=== PATIENT | female | born 1980 | race Caucasian/White ===

== ENCOUNTER 2024-03-25 13:41 | Outpatient (OUT) | payer OTHER, SELFPAY ==
--- NOTE | 2024-03-25 | XR_ITS ---
[facility] [place] [id number] Patient Name: DES KHANNA MRN: [id number] date: 1980 Sex: F Assigned Patient Location: Current Patient Location: Accession/Order Number: [id number] Exam Date: 03/25/2024 13:45 Report Date: 03/26/2024 08:38 At the request of: ROBERT MARTINEZ Procedure: XR foot KG min 3V EXAM: XR foot KG min 3V HISTORY: BILATERAL HEEL PAIN COMPARISON: None. TECHNIQUE: Routine views of the bilateral feet were obtained. FINDINGS/IMPRESSION: 1. There is no radiographic evidence of an acute fracture or subluxation. 2. Early changes of osteoarthritis seen at the bilateral interphalangeal joints of the toes as demonstrated by joint space narrowing and marginal spurring. 3. Bilateral plantar calcaneal spurring is seen. Electronically authenticated by: MARGARET BOWEN Date: 03/26/2024 08:38
== END 2024-03-25 13:42 | disposition home or self-care (01) ==
PROVIDERS: Visit Provider Podiatrist Foot & Ankle Surgery
DX: M79.671 Pain in right foot (principal); M79.672 Pain in left foot; M77.32 Calcaneal spur, left foot; M77.31 Calcaneal spur, right foot
CPT/HCPCS: 73630

== ENCOUNTER 2024-06-23 12:43 | Outpatient (OUT) | payer OTHER, SELFPAY ==
--- OUTSIDE RECORDS SUMMARY | 2024-06-23 12:57 | XMS_ITS | CCD ---
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 Name Role Phone DR PETER AHUMADA Primary Care Unavailable DR CHETAN RUDD Admitting Unavailable DR CHETAN RUDD Consulting Unavailable DR CHETAN RUDD Attending Unavailable Luz Marina Hernandez Consulting Unavailable Peter Ahumada DO Primary Care Provider Peter Ahumada Unavailable Acs, DO Peter Primary Care Provider Acs, DO Peter Attending Provider Acs, DO Peter Primary Care Provider Kuns, DO Peter Attending Provider [phone] Kuns, DO Peter Primary Care Provider [phone] Kuns, DO Peter Attending Provider Rolando, [facility]- [place] Emergency Provider Severo ([facility]), [place] DELIA Orellana Attending Provider Acs, DO Green Primary Care Provider Acs, DO Green Attending Provider Kuns, DO Peter Primary Care Provider Kuns, DO Peter Attending Provider Kuns, DO Peter Primary Care Provider [phone] Acs, DO Peter Attending Provider [phone] Kuns, DO Peter Primary Care Provider [phone] Acs, DO Peter Referring Provider Self, Referral Attending Provider Unavailable MD Igor Rudd Emergency Provider [phone] Blake, DO Green Attending Provider Itzkowitz, DO Alber Attending Provider DO Chas Meza Attending Provider [phone] Blake, DO Green Primary Care Provider Peter Ahumada DO P Primary Care Provider Kuns, DO Peter Primary Care Provider Acs, DO Green Attending Provider JEAN CARLOS Martinez Attending Provider Peter Ahumada MD Primary Care Provider ITZKOWITZ, ALBER H Attending Unavailable ITZKOWITZ, ALBER H Attending Unavailable ITZKOWITZ, ALBER H Attending Unavailable ITZKOYAHIRTZ, ALBER H Attending Unavailable RAHUL CASTILLO Attending Unavailable ROBERT MARTINEZ Referring Unavailable Acs Peter HOOVER Primary Care Provider Peter Ahumada DO Attending Provider Robert Martinez DPM Attending Provider Acs, Peter Primary Care Unavailable Robert Martinez Attending Unavailable Robert Martinez Admitting Unavailable Kuns, Peter Admitting Unavailable Kuns, Peter Primary Care Unavailable Kuns, Peter Attending Unavailable Kuns, Peter Admitting Unavailable Kuns, Peter Primary Care Unavailable Kuns, Peter Attending Unavailable Self, Referral Attending Unavailable Kuns, Peter Primary Care Unavailable Self, Referral Admitting Unavailable Kuns, Peter Referring Unavailable Kuns, Peter Admitting Unavailable Kuns, Peter Primary Care Unavailable Kuns, Peter Attending Unavailable Itzkowitz, Alber Admitting Unavailable Itzkowitz, Alber Attending Unavailable Kuns, Peter Primary Care Unavailable Kuns, Peter Primary Care Unavailable Chas Meza Admitting Unavailable Chas Meza Attending Unavailable Kuns, Peter Primary Care Unavailable Itzkowitz, Alber Attending Unavailable Itzkoyahirtz, Alber Admitting Unavailable Igor Rudd Attending Unavailable Kuns, Peter Primary Care Unavailable Igor Rudd Admitting Unavailable Peter Ahumada Primary Care Unavailable Chas Meza Attending Unavailable Chas Meza Admitting Unavailable Peter Ahumada Admitting Unavailable Peter Ahumada Primary Care Unavailable Peter Ahumada Attending Unavailable Peter Ahumada Primary Care Unavailable Alber Haines Attending Unavailable Alber Haines Admitting Unavailable Peter Ahumada Primary Care Unavailable Peter Ahumada Attending Unavailable Peter Ahumada Admitting Unavailable Peter Ahumada Primary Care Unavailable Robert Martinez Admitting Unavailable Robert Martinez Attending Unavailable Allergies Allergy Classification Reported Allergen(s) Allergy Type Date of Onset Reaction(s) Facility (6 sources) Indomethacin Drug Allergy 8 Swelling [facility] (11 sources) benzonatate Drug Allergy 4 diarrhea [facility] (2 sources) benzonatate Drug Allergy 3 GI intolerance [facility] Work Phone: (1 source) benzonatate Drug Allergy [address] [place] [address] Repository Medications Current Medications Medication Drug Class(es) Dates Sig (Normalized) Sig (Original) [id number] 200 actuat albuterol 0.09 mg/actuat metered dose inhaler (20 sources) beta2-Adrenergic Agonist Start: 12-19-2023 take 2 puff(s) by inhalation every four hours as needed Albuterol Sulfate (Proair Hfa) 90 mcg/actuation HFA aerosol inhaler Active 2 PUFF INHALATION Every 4 hours December 18, 2023 11:00pm FreeTextSi puffs as needed Inhalation every 4 hrs; Note: Source Status: RefillPRN; Refills: 1; Provider: Blake Liz Start: 03-23-2017 take 2 puff(s) by in halation every four hours as needed ProAir HFA 108 (90 Base) MCG/ACT 2 puffs as needed Inhalation every 4 hrs PRN Mar, Active albuterol HFA (P roventil HFA) 90 mcg/act inhaler every 4 (four) hours. Active esomeprazole 40 mg delayed release oral capsule (4 sources) Proton Pump Inhibitor Start: 06-10-2024 take 1 capsule by mouth once daily Esomeprazole Magnesium (Nexium) 40 mg capsule,delayed release(DR/EC) Active 40 MG PO Daily June 10, 2024 12:00am Start: 03-14-2024 End: 06-10-2024 take 1 capsule by mouth twice daily Esomeprazole Magnesium (Nexium) 40 mg capsule,delayed release(DR/EC) Discontinued 40 MG PO Twice daily March 13, 2024 11:00pm June 10, 2024 3:43pm Norgestimate-Ethinyl Estradiol (20 sources) Progestin, Estrogen Start: 12-19-2023 take 1 tablet by mouth once daily at bedtime Norgestimate-Ethinyl Estradiol 0.25-35 mg-mcg tablet Active 1 TAB PO Daily at bedtime December 18, 2023 11:00pm Start: 12-19-2023 take 1 tablet by yoana th once daily at bedtime Norgestimate-Ethinyl Estradiol Active 1 TAB PO Daily at bedtime December 19, 2023 12:00am Start: 12-19-2023 take 1 tablet by yoana th once daily Norgestimate-Ethinyl Estradiol Active 1 TAB PO Daily December 19, 2023 12:00am Start: 11-11-2022 take 1 tablet by yoana th in the morning Mary Lou 0.25-35 MG-MCG tablet Take 1 tablet by mouth in the morning. 11/11/2022 Active Start: 02-08-2021 End: 12-19-2023 take 1 tablet by mouth once daily Norgestimate-Ethinyl Estradiol (Mary Lou) 0.25-35 mg-mcg tablet Discontinued 1 TAB PO Daily February 07, 2021 11:00pm December 19, 2023 1:04pm Start: 02-08-2021 End: 12-19-2023 take 1 tablet by mouth once daily Norgestimate-Ethinyl Estradiol (Mary Lou) 0.25-35 mg-mcg tablet Discontinued 1 TAB PO Daily February 08, 2021 12:00am December 19, 2023 2:04pm Start: 02-08-2021 take 1 tablet by yoana th once daily Norgestimate-Ethinyl Estradiol (Mary Lou) 0.25-35 mg-mcg tablet Active 1 TAB PO Daily February 07, 2021 11:00pm Start: 02-08-2021 take 1 tablet by yoana th once daily Norgestimate-Ethinyl Estradiol (Mary Lou) 0.25-35 mg-mcg tablet Active 1 TAB PO Daily February 08, 2021 12:00am Start: 09-15-2020 take 1 tablet by yoana th once daily MARY LOU 0.25-35 mg-mcg per tablet Take 1 tablet by mouth once daily. 09/15/2020 Active Start: 09-15-2020 take 1 tablet by yoana th once daily MARY LOU 0.25-35 mg-mcg per tablet Take 1 tablet by mouth once daily. 0 09/15/2020 Active Start: 04-24-2017 End: 02-08-2021 take 1 tablet by mouth once daily Norgestimate-Ethinyl Estradiol (Sprintec (28)) 0.25-35 mg-mcg Tablet Discontinued 1 TAB PO Daily April 23, 2017 11:00pm February 08, 2021 9:37am Start: 04-24-2017 End: 02-08-2021 take 1 tablet by mouth once daily Norgestimate-Ethinyl Estradiol (Sprintec (28)) 0.25-35 mg-mcg Tablet Discontinued 1 TAB PO Daily April 24, 2017 12:00am February 08, 2021 10:37am take 1 tablet by yoana th every twenty-four hours Norgestimate-Eth Estradiol 0.25-35 MG-MCG 1 tablet Orally Once a day Active Comment on above: Take 1 tablet by yoana th once daily. Multiple Vitamin (multivitamin) tablet (2 sources) take 1 tablet by mouth in the morning Multiple Vitamin (multivitamin) tablet Take 1 tablet by mouth in the morning. Active Multivitamin (Daily Multi-Vitamin) tablet (17 sources) Start: 12-19-2023 take 1 tablet by mouth once daily in the morning Multivitamin (Daily Multi-Vitamin) tablet Active 1 TAB PO Every morning December 18, 2023 11:00pm Start: 12-19-2023 take 1 tablet by yoana th once daily in the morning Multivitamin (Daily Multi-Vitamin) tablet Active 1 TAB PO Every morning December 19, 2023 12:00am Start: 12-19-2023 take 1 tablet by yoana th once daily Multivitamin (Daily Multi-Vitamin) tablet Active 1 TAB PO Daily December 19, 2023 12:00am Multivitamin preparation (11 sources) take 1 tablet by mouth once daily Multi Vitamin - 1 tablet Orally Once a day Active Multivitamin With Minerals (Hair,Skin And Nails) tablet (15 sources) Start: 03-06-2024 take 1 tablet by mouth once daily in the morning Multivitamin With Minerals (Hair,Skin And Nails) tablet Active 1 TAB PO Every morning March 06, 2024 1:25pm Start: 03-06-2024 take 1 tablet by yoana th once daily in the morning Multivitamin With Minerals (Hair,Skin And Nails) tablet Active 1 TAB PO Every morning March 06, 2024 2:25pm Start: 01-15-2024 End: 03-06-2024 take 1 tablet by mouth once daily in the morning Multivitamin With Minerals (Hair,Skin And Nails) tablet Discontinued 1 TAB PO Every morning January 14, 2024 11:00pm March 06, 2024 1:25pm Start: 01-15-2024 End: 03-06-2024 take 1 tablet by mouth once daily in the morning Multivitamin With Minerals (Hair,Skin And Nails) tablet Discontinued 1 TAB PO Every morning January 15, 2024 12:00am March 06, 2024 2:25pm Start: 01-15-2024 take 1 tablet by yoana th once daily in the morning Multivitamin With Minerals (Hair,Skin And Nails) tablet Active 1 TAB PO Every morning January 15, 2024 12:00am ProAir HFA 108 (90 Base) MCG/ACT (11 sources) Start: 03-23-2017 take 2 puff(s) by inhalation every four hours as needed ProAir HFA 108 (90 Base) MCG/ACT 2 puffs as needed Inhalation every 4 hrs for 90 days PRN Mar, Active Start: 03-23-2017 take 2 puff(s) by in halation every four hours as needed ProAir HFA 108 (90 Base) MCG/ACT 2 puffs as needed Inhalation every 4 hrs PRN Mar, Active probiotic (17 sources) probiotic Active Vitamin D (Cholecalciferol) 1000 UNIT (17 sources) take 1 capsule by mo [facility] once daily Vitamin D (Cholecalciferol) 1000 UNIT 1 capsule Orally Once a day Active Completed/Discontinued Medications Medication Drug Class(es) Dates Sig (Normalized) Sig (Original) acetaminophen 300 mg / codeine phosphate 30 mg oral tablet (20 sources) Opioid Agonist Start: 01-29-2024 End: 02-13-2024 take 1 tablet by mouth every four to six hours as needed for pain Acetaminophen-Codei ne 300-30 mg tablet Discontinued 1 TAB PO EVERY 4-6 HOURS as needed for pain 20 January 28, 2024 11:00pm February 13, 2024 2:12pm Start: 03-26-2018 End: 03-31-2018 take 1 tablet by mouth every six hours as needed for pain Acetaminophen-Codeine (Tylenol-Codeine #3) 300-30 mg tablet Discontinued 1 - 2 TAB PO Q6H as needed for pain 30 March 25, 2018 11:00pm March 29, 2018 11:00pm March 30, 2018 11:02pm acetaminophen 325 mg / HYDROcodone bitartrate 5 mg oral tablet (20 sources) Opioid Agonist Start: 12-31-2023 End: 02-13-2024 take 1 tablet by mouth every four to six hours as needed for pain Hydrocodone-Acetaminophen 5-325 mg tablet Discontinued 1 TAB PO EVERY 4-6 HOURS as needed for Pain 16 02December 31, 2023 February 13, 2024 2:12pm Start: 12-19-2023 End: 12-19-2023 take 1 tablet by mouth every four to six hours as needed for pain Hydrocodone-Acetaminophen 5-325 mg table t Discontinued 1 TAB PO EVERY 4-6 HOURS as needed for Pain 19 05December 19, 2023 December 19, 2023 8:39am Start: 12-19-2023 End: 12-19-2023 take 1 tablet by mouth every four to six hours as needed for pain Hydrocodone-Acetaminophen 5-325 mg table t Discontinued 1 TAB PO EVERY 4-6 HOURS as needed for Pain 16 02December 19, 2023 December 19, 2023 11:03am Start: 12-17-2023 End: 12-31-2023 take 1 tablet by mouth every four to six hours as needed for pain Hydrocodone-Acetaminophen 5-325 mg table t Discontinued 1 TAB PO EVERY 4-6 HOURS as needed for Pain 16 02December 19, 2023 December 31, 2023 6:42am Start: 04-24-2017 End: 03-26-2018 take 2 tablets by mouth every four to six hours as needed for pain Hydrocodone-Acetaminophen ([place]) 5-325 mg tablet Discontinued 2 TAB PO EVERY 4-6 HOURS as needed for pain April 23, 2017 11:00pm March 26, 2018 8:04am acetaminophen 325 mg / oxyCODONE hydrochloride 5 mg oral tablet (20 sources) Opioid Agonist Start: 11-01-2022 End: 12-17-2023 take 1 tablet by mouth every six hours as needed for pain Oxycodone-Acetaminophen 5-325 mg tablet Discontinued 1 TAB PO Q6H as needed for pain 12 November 01, 2022 December 17, 2023 6:36am Albuterol Sulfate (Proventil Hfa) 90 mcg/actuation Hfa Aerosol Inhaler (20 sources) Start: 04-24-2017 End: 12-19-2023 take 1 puff(s) by inhalation every four to six hours as needed for wheezing Albuterol Sulfate (Proventil Hfa) 90 mcg/actuation Hfa Aerosol Inhaler Discontinued 1 PUFF INHALATION EVERY 4-6 HOURS as needed for Shortness Of Breath Or Wheezing April 23, 2017 11:00pm December 19, 2023 1:03pm Start: 04-24-2017 End: 12-19-2023 take 1 puff(s) by inhalation every four to six hours Albuterol Sulfate (Proventil Hfa) 90 mcg/actuation Hfa Aerosol Inhaler Discontinued 1 PUFF INHALATION EVERY 4-6 HOURS April 24, 2017 12:00am December 19, 2023 2:03pm Start: 04-24-2017 take 1 puff(s) by in halation every four to six hours Albuterol Sulfate (Proventil Hfa) 90 mcg/actuation Hfa Aerosol Inhaler Active 1 PUFF INHALATION EVERY 4-6 HOURS April 23, 2017 11:00pm Start: 04-24-2017 take 1 puff(s) by in halation every four to six hours Albuterol Sulfate (Proventil Hfa) 90 mcg/actuation Hfa Aerosol Inhaler Active 1 PUFF INHALATION EVERY 4-6 HOURS April 24, 2017 12:00am azithromycin 250 mg oral tablet (20 sources) Macrolide Antimicrobial Start: 11-30-2023 End: 12-17-2023 Azithromycin (Zithromax) 250 mg tablet Discontinued 0 PO .COMPLEX November 29, 2023 11:00pm December 17, 2023 6:36am For 250 mg dose pack: take 500 mg today (day 1), then 250 mg for 4 days (days 2-5) PO Start: 05-24-2023 Zithromax Z-Pa k 250 MG 2 tablets on the first day, then 1 tablet daily for 4 days Orally Once a day for 5 day(s) May, Active betamethasone 1 mg/ml topical cream (20 sources) Corticosteroid Start: 12-19-2023 End: 12-27-2023 Betamethasone Valerate 0.1 % cream Discontinued 1 APPLIC TOPICAL Twice daily December 18, 2023 11:00pm December 27, 2023 1:16pm FreeTextSi application Externally Twice a day; Note: Source Status: Taking; Refills: 0; Qty: 45 Gram; Provider: Blake Liz Start: 12-19-2023 End: 12-27-2023 Betamethasone Valerate Disco ntinued 1 APPLIC TOPICAL Twice daily December 19, 2023 12:00am December 27, 2023 2:16pm FreeTextSi application Externally Twice a day; Note: Source Status: Taking; Refills: 0; Qty: 45 Gram; Provider: Blake Liz Start: 03-21-2023 Betamethasone Valerate 0.1 % 1 application Externally Twice a day Feb, Active Start: 03-21-2023 Betamethasone Valerate 0.1 % 1 application Externally Twice a day Feb, Active cephalexin 500 mg oral capsule (20 sources) Cephalosporin Antibacterial Start: 02-08-2021 End: 11-01-2022 take 1 capsule by mouth four times daily Cephalexin 500 mg capsule Discontinued 500 MG PO Four times daily 40 February 07, 2021 11:00pm November 01, 2022 9:30am cholecalciferol 0.025 mg oral capsule (17 sources) Vitamin D Start: 12-19-2023 End: 12-27-2023 take 1 capsule by mouth once daily Cholecalciferol (Vitamin D3) 25 mcg (1,000 unit) capsule Discontinued 1 CAP PO Daily December 18, 2023 11:00pm December 27, 2023 1:16pm FreeTextSi capsule Orally Once a day; Note: Source Status: Taking; Provider: Blake Green ( ) diclofenac sodium 75 mg delayed release oral tablet (20 sources) Nonsteroidal Anti-inflammatory Drug Start: 12-19-2023 End: 12-27-2023 take 1 tablet by mouth twice daily Diclofenac Sodium 75 mg tablet,delayed release (DR/EC) Discontinued 75 MG PO Twice daily December 18, 2023 11:00pm December 27, 2023 1:17pm Start: 11-01-2022 End: 12-17-2023 take 1 tablet by mouth twice daily as needed for pain Diclofenac Sodium 75 mg tablet,delayed release (DR/EC) Discontinued 75 MG PO Twice daily as needed for pain October 31, 2022 11:00pm December 17, 2023 6:36am Start: 03-09-2021 [place] 2 % 2 pumps Externally Twice a day samples provided Feb, Active furosemide 40 mg oral tablet (20 sources) Loop Diuretic Start: 12-19-2023 End: 12-27-2023 take 1 tablet by mouth once daily Furosemide (Lasix) 40 mg tablet Discontinued 40 MG PO Daily December 18, 2023 11:00pm December 27, 2023 1:17pm FreeTextSi tablet Orally Once a day; Note: Source Status: Continueprn; Provider: Blake Liz Start: 11-05-2020 take 1 tablet by yoana th every twenty-four hours Lasix 40 MG 1 tablet Orally Once a day prn Oct, Active ibuprofen 800 mg oral tablet (20 sources) Nonsteroidal Anti-inflammatory Drug Start: 10-20-2022 End: 02-13-2024 take 1 tablet by mouth three times daily Ibuprofen 800 mg tablet Discontinued 800 MG PO Three times daily December 18, 2023 11:00pm December 27, 2023 1:17pm Start: 03-12-2020 End: 12-17-2023 take 1 tablet by mouth every eight hours as needed for pain Ibuprofen 600 mg tablet Discontinued 600 MG PO Q8H as needed for pain March 11, 2020 11:00pm December 17, 2023 6:36am Start: 03-26-2018 End: 03-12-2020 Ibuprofen 800 mg Tablet Disc ontinued 800 MG PO As Directed as needed for Pain March 25, 2018 11:00pm March 12, 2020 7:22pm Lactobacillus Combination No.4 (Probiotic) 3 billion cell Capsule (20 sources) Start: 04-24-2017 End: 03-26-2018 take 3 capsules by mouth once daily Lactobacillus Combination No.4 (Probiotic) 3 billion cell Capsule Discontinued 3000 MMU CELLS PO Daily April 23, 2017 11:00pm March 26, 2018 8:04am Start: 04-24-2017 End: 03-26-2018 take 3 capsules by mouth once daily Lactobacillus Combination No.4 (Probiotic) 3 billion cell Capsule Discontinued 3000 MMU CELLS PO Daily April 24, 2017 12:00am March 26, 2018 9:04am Lactobacillus Combination No .9 (Adult 50 Plus Probiotic) 4 billion cell capsule (17 sources) Start: 12-19-2023 End: 12-27-2023 Lactobacillus Combination No .9 (Adult 50 Plus Probiotic) 4 billion cell capsule Discontinued PO December 18, 2023 11:00pm December 27, 2023 1:17pm Start: 12-19-2023 End: 12-27-2023 Lactobacillus Combination No .9 (Adult 50 Plus Probiotic) 4 billion cell capsule Discontinued PO December 19, 2023 12:00am December 27, 2023 2:17pm levothyroxine sodium 0.088 mg oral tablet (20 sources) l-Thyroxine Start: 09-11-2023 End: 06-10-2024 take 1 tablet by mouth once daily Levothyroxine 88 mcg tablet Discontinued 88 MCG PO Daily December 19, 2023 1:08pm January 15, 2024 1:28pm Start: 03-21-2023 take 1 tablet by yoana th once daily in the morning Synthroid 88 MCG 1 tablet in the morning on an empty stomach Orally Once a day for 90 days *Dose change Feb, Active Start: 03-21-2023 take 1 tablet by yoana th once daily in the morning Synthroid 88 MCG 1 tablet in the morning on an empty stomach Orally Once a day for 90 days *Dose change Feb, Active Start: 04-21-2018 take 1 tablet by yoana th once daily levothyroxine (SYNTHROID) 75 mcg tablet Take 75 mcg by mouth once daily. 1 04/21/2018 Active Start: 03-04-2018 take 1 tablet by yoana th every twenty-four hours Synthroid 75 MCG 1 tablet Orally Once a day Feb, Active Start: 04-24-2017 End: 12-19-2023 take 3 tablets by mouth once daily Levothyroxine 25 mcg Tablet Discontinued 75 MCG PO Daily April 23, 2017 11:00pm December 19, 2023 1:04pm Start: 04-24-2017 End: 12-19-2023 take 75 ug by mouth once daily Levothyroxine Discontin ued 75 MCG PO Daily April 24, 2017 12:00am December 19, 2023 2:04pm Comment on above: Take 75 mcg by mouth once daily. omeprazole 40 mg delayed release oral capsule (20 sources) Proton Pump Inhibitor Start: End: take 1 capsule by mouth once daily in the morning Omeprazole 40 mg capsule,delayed release(DR/EC) Discontinued 1 CAP PO Every morning December 18, 2023 11:00pm March 14, 2024 11:43am FreeTextSi capsule 30 minutes before morning meal Orally Once a day; Note: Source Status: Taking; Refills: 3; Provider: Blake Liz Comment on above: TAKE [address] [facility] EVERY DAY 30 MINUTES BEFORE MORNING MEAL ondansetron 4 mg disintegrating oral tablet (20 sources) Serotonin-3 Receptor Antagonist Start: End: take 1 tablet by mouth every six hours as needed for nausea and vomiting Ondansetron 4 mg tablet,disintegrating Discontinued 4 MG PO Q6H as needed for nausea and vomiting February 07, 2021 11:00pm November 01, 2022 9:30am phenazopyridine hydrochloride 200 mg oral tablet (20 sources) Start: End: take 1 tablet by mouth three times daily as needed for pain Phenazopyridine (Pyridium) 200 mg tablet Discontinued 200 MG PO Three times daily as needed for pain February 07, 2021 11:00pm November 01, 2022 9:30am administer with a full glass of water with each meal microencapsulated potassium chloride 10 meq extended release oral tablet (20 sources) Start: End: take 1 tablet by mouth once daily Potassium Chloride 10 mEq tablet,ER particles/crystals Discontinued 10 MEQ PO Daily December 18, 2023 11:00pm December 27, 2023 1:18pm Start: 11-05-2020 take 1 tablet by yoana th once daily as needed K-Dur 10 meq 1 tablet orally daily prn Oct, Active predniSONE 20 mg oral tablet (20 sources) Start: 11-30-2023 End: 12-17-2023 Prednisone 20 mg tablet Discontinued 20 MG PO .COMPLEX 15 November 29, 2023 11:00pm December 17, 2023 6:36am 20 mg orally BID X 5 DAYS, QD X 5 DAYS; Start: 06-08-2023 take 1 tablet by yoana th every twenty-four hours predniSONE 20 MG 1 tablet Orally Once a day for 30 day(s) May, Active Start: 05-24-2023 predniSONE 20 MG 1 tablet by mouth twice a day for five days, then daily for five days Orally as directed May, Active traMADol hydrochloride 50 mg oral tablet (20 sources) Opioid Agonist Start: 06-08-2023 End: 01-15-2024 Tramadol 50 mg tablet Discontinued 50 MG PO December 18, 2023 11:00pm January 15, 2024 1:27pm Start: 02-15-2021 take 1 tablet by yoana th every six hours traMADol HCl 50 MG 1 tablet as needed Orally QID prn Jan, Active Problems Active Problems Problem Classification Problem Date Documented Da te Episodic/Chronic Abdominal hernia (15 sources) Ventral hernia without obstruction or gangrene; Translations: [Umbilical hernia] Onset: 3 Episodic Abdominal pain (20 sources) Right upper quadrant pain; Translations: [Liver pain] Onset: 1 Episodic Acute bronchitis (2 sources) Acute bronchitis, unspecified Episodic Allergic reactions (17 sources) Hand eczema; Translations: [Dermatitis, unspecified] Episodic Asthma (18 sources) Unspecified asthma, uncomplicated; Translations: [Asthma] Onset: 1 12-25-2023 Chronic Diabetes mellitus without complication (20 sources) Hyperglycemia, unspecified; Translations: [Prediabetes] Onset: 4 Episodic Disorders of lipid metabolism (20 sources) Hyperlipidemia; Translations: [Hyperlipidemia, unspecified] Onset: 2 Resolved: 2 Chronic E Codes: Fall (20 sources) Fall on same level; Translations: [Fall on same level, unspecified, initial encounter] Onset: 4 12-27-2023 Episodic E Codes: Natural/environment (1 source) Bitten or stung by nonvenomous insect and other nonvenomous arthropods, initial encounter Episodic Esophageal disorders (20 sources) Gastroesophageal reflux disease; Translations: [Gastro-esophageal reflux disease without esophagitis] Onset: 1 Resolved: 2 Chronic Fracture of upper limb (7 sources) Closed fracture of phalanx of little finger; Translations: [Fracture of unspecified phalanx of left little finger, subsequent encounter for fracture with routine healing] 11-30-2020 Episodic Fracture of upper limb (20 sources) Elbow fracture; Translations: [Unspecified fracture of lower end of right humerus, initial encounter for closed fracture] Onset: 4 12-31-2023 Episodic Immunizations and screening for infectious disease (5 sources) Contact with and (suspected) exposure to other viral communicable diseases; Translations: [Exposure to viral disease] Episodic Malaise and fatigue (6 sources) Asthenia; Translations: [Weakness] Onset: 2 Resolved: 2 Episodic Menstrual disorders (16 sources) Excessive and frequent menstruation; Translations: [Excessive and frequent menstruation with regular cycle] Chronic Neoplasms of unspecified nature or uncertain behavior (20 sources) Neoplastic disease of uncertain behavior; 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, unspecified] Onset: 2 Resolved: 2 Episodic Nonmalignant breast conditions (20 sources) Fibrocystic disease of breast; Translations: [Diffuse cystic mastopathy of unspecified breast] 02-07-2018 Chronic Nonmalignant breast conditions (20 sources) Cyst of breast; Translations: [Solitary cyst of right breast] Onset: 3 02-07-2018 Episodic Nonspecific chest pain (20 sources) Chest pain; Translations: [Chest pain, unspecified] Onset: 2 Resolved: 2 Episodic Open wounds of extremities (20 sources) Laceration of left knee; Translations: [Laceration without foreign body, left knee, initial encounter] 12-17-2023 Episodic Other aftercare (1 source) Other snf (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 therapy; 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] Onset: 1 Episodic Other aftercare (5 sources) Removal of sutures done; Translations: [Encounter for removal of sutures] Episodic Other and unspecified benign neoplasm (13 sources) Dermatofibroma; Translations: [Other benign neoplasm of skin, unspecified] Episodic Other and unspecified benign neoplasm (1 source) Other benign neoplasm of skin, unspecified Episodic Other congenital anomalies (5 sources) Branchial cleft cyst; 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, 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 Other congenital anomalies (2 sources) Second branchial cleft cyst; 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, fistula and cyst of branchial cleft] Onset: 3 01-25-2023 Chronic Other connective tissue disease (5 sources) Bilateral plantar fasciitis; Translations: [Plantar fascial fibromatosis] Episodic Other connective tissue disease (1 source) Plantar fascial fibromatosis; Translations: [Plantar fascial fibromatosis] Onset: 4 Episodic Other connective tissue disease (2 sources) Pain in right foot; Translations: [Pain in limb] Onset: 4 06-10-2024 Episodic Other connective tissue disease (1 source) Foot pain; Translations: [Pain in right foot] 06-10-2024 Episodic Other gastrointestinal disorders (17 sources) Heartburn; Translations: [Heartburn] Episodic Other gastrointestinal disorders (20 sources) Epiploic appendagitis; Translations: [Other specified diseases of intestine] 11-01-2022 Episodic Other gastrointestinal disorders (1 source) Change in bowel habit Episodic Other gastrointestinal disorders (4 sources) Diarrhea, unspecified; Translations: [Diarrhea] Onset: 4 03-06-2024 Episodic Other injuries and conditions due to external causes (18 sources) Contusion of multiple sites; Translations: [Unspecified multiple injuries, initial encounter] 12-17-2023 Episodic Other liver diseases (1 source) Other specified diseases of liver; Translations: [OTHER SPECIFIED DISEASES OF LIVER] Onset: 1 Chronic Other liver diseases (20 sources) Steatosis of liver; Translations: [Fatty (change of) liver, not elsewhere classified] 12-25-2023 Chronic Other liver diseases (17 sources) Lesion of liver; Translations: [Liver disease, unspecified] Chronic Other liver diseases (2 sources) Liver disease, unspecified; Translations: [Liver lesion K76.9] Onset: 1 Resolved: 2 Chronic Other liver diseases (1 source) Fatty (change of) liver, not elsewhere classified; Translations: [Other chronic nonalcoholic liver disease] 06-10-2024 Chronic Other lower respiratory disease (5 sources) Snoring; Translations: [Snoring] Episodic Other lower respiratory disease (5 sources) Dyspnea; Translations: [Shortness of breath] Episodic Other nervous system disorders (2 sources) Chronic pain; Translations: [Other chronic pain] Onset: 3 01-25-2023 Chronic Other non-traumatic joint disorders (20 sources) Pain in right knee; Translations: [Pain in joint, lower leg] Onset: 8 11-12-2017 Episodic Other non-traumatic joint disorders (5 sources) Swollen ankle region; Translations: [Effusion, right ankle] Episodic Other non-traumatic joint disorders (5 sources) Effusion of joint of left ankle; Translations: [Effusion, left ankle] Episodic Other non-traumatic joint disorders (1 source) Pain in left hip Episodic Other non-traumatic joint disorders (17 sources) Pain in elbow; Translations: [Pain in right elbow] 12-27-2023 Episodic Other nutritional; endocrine; and metabolic disorders (17 sources) Body mass index 30+ - obesity; Translations: [Body mass index (BMI) 31.0-31.9, adult] Chronic Other nutritional; endocrine; and metabolic disorders (1 source) Body mass index (BMI) 31.0-31.9, adult; Translations: [BMI 31.0-31.9,adult Z68.31] Onset: 1 Resolved: 1 Chronic Other nutritional; endocrine; and metabolic disorders (5 sources) Weight gain; Translations: [Abnormal weight gain] Episodic Other skin disorders (5 sources) Mass of neck; Translations: [Localized swelling, mass and lump, neck] Episodic Other skin disorders (17 sources) Epidermoid cyst; Translations: [Epidermal cyst] Episodic Other skin disorders (4 sources) Senile hyperkeratosis; Translations: [Other seborrheic keratosis] Episodic Other skin disorders (13 sources) Seborrheic keratosis; Translations: [Other seborrheic keratosis] Episodic Other skin disorders (1 source) Other seborrheic keratosis Episodic Other upper respiratory disease (5 sources) Respiratory tract congestion; Translations: [Nasal congestion] Episodic Other upper respiratory infections (5 sources) Sore throat symptom; Translations: [Acute pharyngitis, unspecified] Episodic Residual codes; unclassified (17 sources) H/O: breast problem; Translations: [Personal history of other specified conditions] Episodic Residual codes; unclassified (1 source) Personal history of other specified conditions Episodic Residual codes; unclassified (1 source) Localized edema Episodic Screening and history of mental health and substance abuse codes (1 source) Personal history of nicotine dependence; Translations: [PERSONAL HISTORY OF NICOTINE DEPEND] Onset: 1 Episodic Spondylosis; intervertebral disc disorders; other back problems (20 sources) Degeneration of lumbosacral intervertebral disc; Translations: [Other intervertebral disc degeneration, lumbosacral region] Chronic Spondylosis; intervertebral disc disorders; other back problems (2 sources) Radiculopathy, lumbar region; Translations: [Lumbosacral radiculopathy] Episodic Thyroid disorders (20 sources) Hypothyroidism; Translations: [Hypothyroidism, unspecified] Onset: 2 Resolved: 2 Chronic Urinary tract infections (20 sources) Pyelonephritis; Translations: [Tubulo-interstitial nephritis, not specified as acute or chronic] 02-08-2021 Episodic Past or Other Problems Problem Classification Problem Date Documented Da te Episodic/Chronic Other connective tissue disease (5 sources) Pain in right foot; Translations: [Pain in right foot] Onset: 11-26-2017 11-26-2017 Episodic Other connective tissue disease (1 source) Pain in left arm; Translations: [Arm pain, left M79.602] Onset: 04-20-2021 Resolved: 04-20-2021 Episodic Other connective tissue disease (2 sources) Peroneal tendinitis; Translations: [Peroneal tendinitis, unspecified leg] Onset: 01-25-2023 01-25-2023 Episodic Other injuries and conditions due to external causes (1 source) Unspecified injury of right shoulder and upper arm, initial encounter; Translations: [Unspecified injury of right shoulder and upper arm, initial encounter] Onset: 12-17-2023 Episodic Other non-traumatic joint disorders (15 sources) Pain in right elbow; Translations: [Pain in joint, upper arm] Onset: 12-28-2023 12-27-2023 Episodic Other screening for suspected conditions (not mental disorders or infectious disease) (11 sources) Mammography abnormal; Translations: [Other abnormal and inconclusive findings on diagnostic imaging of breast] Onset: 01-25-2023 Episodic Other skin disorders (1 source) Other hypertrophic disorders of the skin Onset: 10-17-2021 Resolved: 10-17-2021 Episodic Results Test Name Value Interpretation Reference Range Facility MR ankle LT wo conon 024 MR ankle LT wo con [facility] [address] [place] [address] MRI Report Signed Patient: Darling Khanna MR#: [id number] : 1980 Acct:[id number] Age/Sex: 44 / F ADM Date: 06/04/24 Loc: Room: Type: [facility] Attending Dr: Robert Martinez DPM MS Copies to: Robert Martinez DPM, Ordering Provider: Robert Martinez DPM, MS Date of Service: 06/04/24 MR/MR ankle LT wo con: PLANTAR FASCITIS MRI LEFT Ankle without contrast TECHNIQUE: Multiplanar T1 and T2-weighted imaging of the LEFT ankle obtained without contrast. COMPARISON: None HISTORY: Plantar fasciitis. Heel pain. CLINICAL QUESTION: FINDINGS: Nonspecific subcutaneous edematous change. SYNDESMOSIS: Adequate alignment of the distal tibia and fibula THE BONE MARROW: Normal fatty marrow without marrow infiltrative changes. No bone marrow edema. FRACTURE: No fracture identified. LATERAL COLLATERAL LIGAMENT COMPLEX: Intact anterior talofibular ligament. Intact calcaneofibular ligament. Intact posterior talofibular ligament. ANTEROLATERAL COMPARTMENT: No anterolateral impingement findings. PERONEAL TENDONS: Normal peroneal brevis tendon adjacent to the bone. No longitudinal split tear. Normal appearance of the peroneal longus tendon. Normal low signal tendon. Intact superior peroneal retinaculum with normal alignment of the peroneal brevis tendon. Normal appearance of the peroneal tendons behind the retromalleolar grove of the lateral malleolus. No surrounding fluid. No hypertrophy of the peroneal tubercle of the lateral calcaneus BIFURCATE LIGAMENT: Calcaneocuboid and calcaneonavicular ligaments of the bifurcate ligament are intact. The anterior process of the calcaneus is intact without bone marrow edematous changes. Intact the midtarsal joint. DELTOID LIGAMENT: The superficial and deep components of the medial collateral deltoid ligaments are intact. SPRING LIGAMENT: The spring ligament normally intersects the posterior tibial tendon in the talar head with coronal view no findings of tear or thickening. Specifically the superior medial segment is preserved. POSTERIOR TIBIAL TENDON: Normal orientation the posterior tibial tendon behind of the medial malleolus inserting into the navicular bone. Small amount of normal fluid is seen within the tendon sheath which terminates 1-2 cm proximal to the navicular insertion. No distal paratendinitis of the tendon identified. Unremarkable heterogeneous signal intensity of the distal tendon identified. SINUS TARSI: Normal fat-containing sinus tarsi identified without evidence of posterior tibial tendon dysfunction, talocalcaneal or fibulocalcaneal impingement identified. FLEXOR DIGITORUM LONGUS: Intact. FLEXOR HALLUCIS LONGUS: Intact . Fluid surrounding the flexor hallucis longus is likely a normal finding suggesting communication of the joint. ACHILLES TENDON: Normal homogeneous low signal. Normal thickness with slight concave anterior surface present. No peritendinous edema. No retrocalcaneal bursitis. No Miguelina deformity. Infiltration No tear of the calcaneal insertion or mid substance. Normal Addi's fat-pad. No Achilles tendon insertion enthesophyte. ANTERIOR TIBIAL TENDON:Anterior tibial tendon intact. No surrounding abnormal tendon sheath fluid. PLANTAR FASCIA: 3 fascicles of the plantar fascia are intact. Inferior calcaneal spurring reactive bone marrow edema and posterior inferior calcaneal region. Adjacent soft tissue swelling. MR/MR ankle LT wo con IMPRESSION: plantar fasciitis. No tear. Calcaneal spurring. Reactive bone marrow edema. No bony destruction. No fracture. Impression dictated by: Osmani Stovall M.D.06/04/2024 10:29 PM Dictation Location: [place] [address] Transcribed By: [facility] 06/04/242228 Dictated By: Osmani Stovall DO 06/04/242217 Signed By: 06/04/242228 Normal [facility] Magnetic resonance imaging r eportOrdered By: Osmani Stovall on 06-04-2024 Study report [facility] [address] [place] [address] MRI Report Signed Patient: Darling Khanna MR#: [id number] : 1980 Acct:[id number] Age/Sex: 44 / F ADM Date: 4 Loc: MR Room: Type: [facility] Attending Dr: Robert Martinez DPM, MS Copies to: Robert Martinez DPM, MS~ Ordering Provider: Robert Martinez DPM, MS Date of Service: 06/04/24 MR/MR ankle LT wo con: PLANTAR FASCITIS MRI LEFT Ankle without contrast TECHNIQUE: Multiplanar T1 and T2-weighted imaging of the LEFT ankle obtained without contrast. COMPARISON: None HISTORY: Plantar fasciitis. Heel pain. CLINICAL QUESTION: FINDINGS: Nonspecific subcutaneous edematous change. SYNDESMOSIS: Adequate alignment of the distal tibia and fibula THE BONE MARROW: Normal fatty marrow without marrow infiltrative changes. No bone marrow edema. FRACTURE: No fracture identified. LATERAL COLLATERAL LIGAMENT COMPLEX: Intact anterior talofibular ligament. Intact calcaneofibular ligament. Intact posterior talofibular ligament. ANTEROLATERAL COMPARTMENT: No anterolateral impingement findings. PERONEAL TENDONS: Normal peroneal brevis tendon adjacent to the bone. No longitudinal split tear. Normal appearance of the peroneal longus tendon. Normal low signal tendon. Intact superior peroneal retinaculum with normal alignment of the peroneal brevis tendon. Normal appearance of the peroneal tendons behind the retromalleolar grove of the lateral malleolus. No surroundingfluid. No hypertrophy of the peroneal tubercle of the lateral calcaneus BIFURCATE LIGAMENT: Calcaneocuboid and calcaneonavicular ligaments of the bifurcate ligament are intact. The anterior process of the calcaneus is intactwithout bone marrow edematous changes. Intact the midtarsal joint. DELTOID LIGAMENT: The superficial and deep components of the medial collateral deltoid ligaments are intact. SPRING LIGAMENT: The spring ligament normally intersects the posterior tibial tendon in the talar head with coronal view no findings of tear or thickening. Specifically the superior medial segment is preserved. POSTERIOR TIBIAL TENDON: Normal orientation the posterior tibial tendon behind of the medial malleolus inserting into the navicular bone. Small amount of normal fluid is seen within the tendon sheath which terminates 1-2 cm proximal to the navicular insertion. No distal paratendinitis of the tendon identified. Unremarkable heterogeneous signal intensity of the distal tendon identified. SINUS TARSI: Normal fat-containing sinus tarsi identified without evidence of posterior tibial tendon dysfunction, talocalcaneal or fibulocalcaneal impingement identified. FLEXOR DIGITORUM LONGUS: Intact. FLEXOR HALLUCIS LONGUS: Intact . Fluid surrounding the flexor hallucis longus is likely a normal finding suggesting communication of the joint. ACHILLES TENDON: Normal homogeneous low signal. Normal thickness with slight concave anterior surface present. No peritendinous edema. No retrocalcaneal bursitis. No Miguelina deformity. Infiltration No tear of the calcaneal insertion or mid substance. Normal Addi's fat-pad. No Achilles tendon insertion enthesophyte. ANTERIOR TIBIAL TENDON:Anterior tibial tendon intact. No surrounding abnormal tendon sheath fluid. PLANTAR FASCIA: 3 fascicles of the plantar fascia are intact. Inferior calcaneal spurring reactive bone marrow edema and posterior inferior calcaneal region. Adjacent soft tissue swelling. MR/MR ankle LT wo con IMPRESSION: plantar fasciitis. No tear. Calcaneal spurring. Reactive bone marrow edema. No bony destruction. No fracture. Impression dictated by: Osmani Stovall M.D.06/04/2024 10:29 PM Dictation Location: [place] [address] Transcribed By: [facility] 06/04/242228 Dictated By: Osmani Stovall DO 06/04/242217 Signed By: 06/04/242228 [facility] X-ray reportOrdered By: Vikas Stovall on 06-04-2024 Study report [facility] [place] [address] XRay Report Signed Patient: Darling Khanna MR#: [id number] : 1980 Acct:[id number] Age/Sex: 44 / F ADM Date: 4 Loc: MR Room: Type: [facility] Attending Dr: Robert Martinez DPM, MS Copies to: Robert Martinez DPM, MS~ Ordering Provider: Robert Martinez DPM, MS Date of Service: 06/04/24 XR/XR pre/post mri xray: PLANTAR FASCITIS 2 views LEFT ankle for pre-MRI assessment. Large inferior calcaneal spur. Intact bony structures. No acute bony findings. Unremarkable soft tissues. XR/XR pre/post mri xray IMPRESSION: Inferior calcaneal spurring Impression dictated by: Osmani Stovall M.D.06/04/2024 11:51 PM Dictation Location: [facility] Transcribed By: ADIA 06/04/242350 Dictated By: Osmani Stovall DO 06/04/242350 Signed By: 06/04/242350 [facility] XR pre/post mri xrayon 06-04 XR pre/post mri xray [facility] [place] [address] XRay Report Signed Patient: Darling Khanna MR#: [id number] 1872 : 1980 Acct:[id number] Age/Sex: 44 / F ADM Date: 06/04/24 Loc: Room: Type: [facility] Attending Dr: Robert Martinez DPM, MS Copies to: Robert Martinez DPM, MS Ordering Provider: Robert Martinez DPM, MS Date of Service: 06/04/24 XR/XR pre/post mri xray: PLANTAR FASCITIS 2 views LEFT ankle for pre-MRI assessment. Large inferior calcaneal spur. Intact bony structures. No acute bony findings. Unremarkable soft tissues. XR/XR pre/post mri xray IMPRESSION: Inferior calcaneal spurring Impression dictated by: Osmani Stovall M.D.06/04/2024 11:51 PM Dictation Location: [facility] Transcribed By: [facility] 06/04/242350 Dictated By: Osmani Stovall DO 06/04/242350 Signed By: 06/04/242350 Normal [facility] EMG 2 Extremitieson 05-22-20 24 S1 radiculopathy, le ft, [facility] Nerveson 4 S1 radiculopathy, le ft, mild [facility] [place] upper GI w air*on 024 FL upper GI w air* [facility] [place] [id number] Fluoroscopy Report Signed Patient: Darling Khanna MR#: [id number] 1872 : 1980 Acct:[id number] Age/Sex: 43 / F ADM Date: 03/12/24 Loc: UL Room: Type: [facility] Attending Dr: Peter Ahumada DO Copies to: Peter Ahumada DO Ordering Provider: Peter Ahumada DO Date of Service: 03/12/24 FL/FL upper GI w air*: K21.9 - Gastro-esophageal reflux disease without esophagitis UPPER GI SERIES HISTORY: Intermittent diarrhea. Burning in throat. 2 weeks duration. Worse after eating. History of reflux 54 imagesCumulative Air Kerma in mGy: 176.44 mGy FINDINGS: The valleculae and pyriform sinuses are symmetrical. The esophagus has normal course and caliber without fixed intraluminal filling defect or mucosal identified. Small hiatal hernia seen. Gastroesophageal reflux into the cervical esophagus.. No aspiration of contrast seen. No gastric mass or ulceration. The duodenal bulb and sweep are unremarkable. No significant stasis of esophageal contrast. No esophageal dysmotility identified. FL/FL upper GI w air* IMPRESSION: Gastroesophageal reflux to the cervical esophagus. No esophagitis. Small hiatal hernia. Impression dictated by: Osmani Stovall M.D.03/12/2024 2:09 PM Dictation Location: [place] [address] Transcribed By: [facility] 03/12/24 1409 Dictated By: Osmani Stovall DO 03/12/24 1040 Signed By: 03/12/24 1409 Normal [facility] US gall bladderon 03-12-2024 US gall bladder [facility] [address] [address] Ultrasound Report Signed Patient: Darling Khanna MR#: [id number] 1872 : 1980 Acct:[id number] Age/Sex: 43 / F ADM Date: 03/12/24 Loc: Room: Type: [facility] Attending Dr: Peter Ahumada DO Ordering Provider: Peter Ahumada DO Date of Service: 03/12/24 US/US gall bladder: K21.9 - Gastro-esophageal reflux disease without esophagitis Copies to: Peter Ahumada DO Gallbladder ultrasound HISTORY: Diarrhea. COMPARISON: None Negative ultrasound Marin's sign reported. COMMON BILE DUCT: Normal caliber. No intraluminal abnormality. LIVER CONTOUR: Normal. LIVER PARENCHYMA: Hepatic steatosis echogenic area identified in region of kenneth hepatis likely corresponding with focal fatty infiltration. Subtle findings may also be present CT examination 11/01/2022. HEPATIC LESION: None INTRAHEPATIC BILIARY DUCTAL DILATATION No ductal dilatation identified. GALLSTONES: No shadowing gallstones. GALLBLADDER SLUDGE: No gallbladder sludge. GALLBLADDER WALL: Normal thickness PERICHOLECYSTIC FLUID: None Pancreas: Limited assessment PORTAL VEIN: Normal blood flow. Liver size: Normal No RIGHT hydronephrosis identified. US/US gall bladder IMPRESSION: Unremarkable gallbladder. Hepatic steatosis. Additional focal region of increased echogenicity and region of kenneth hepatis likely representing additional areas of hepatic steatosis. Impression dictated by: Osmani Stovall M.D.03/12/2024 10:39 AM Dictation Location: [place] [address] Tech: [facility] Transcribed By: ADIA 03/12/24 1039 Dictated By: Osmani Stovall DO 03/12/24 1036 Signed By: 03/12/24 1039 Normal [facility] A1C with Estimated Average G luon 03-05-2024 Glucose [Mass/Vol] 128 mg/dL Normal [facility] Comment on above: Result Comment: PERF ORMED BY: [facility] [address] [place] [address] PATHOLOGIST [employer] ALVIN VIDES M.D. Performed By: #### C BC, TSH3, A1C WTH eA, LIPID, CMP, T4F ####[facility] [id number] [place] [address] [facility] Alanine aminotransferase [En zymatic activity/volume] in Serum or PlasmaOrdered By: Peter Ahumada on 03-05-2024 ALT [Catalytic activity/Vol] 10 U/L Normal 7-52 [facility] Comment on above: Performed By: #### C BC, TSH3, A1C WTH eA, LIPID, CMP, T4F ####[place] [id number] [facility] Albumin [Mass/volume] in Ser um or Plasma by Bromocresol green (BCG) dye binding methoOrdered By: Peter Ahumada on 03-05-2024 Albumin BCG dye [Mass/Vol] 4.0 g/dL 3.5-5.7 [facility] Alkaline phosphatase [Enzyma tic activity/volume] in Serum or PlasmaOrdered By: Peter Ahumada on 03-05-2024 ALP [Catalytic activity/Vol] 46 U/L Normal 34-104 [facility] Comment on above: Performed By: #### C BC, TSH3, A1C WTH eA, LIPID, CMP, T4F ####[place] [id number] [facility] Aspartate aminotransferase [ Enzymatic activity/volume] in Serum or PlasmaOrdered By: Peter Ahumada on 03-05-2024 AST [Catalytic activity/Vol] 20 U/L Normal 13-39 [facility] Comment on above: Performed By: #### C BC, TSH3, A1C WTH eA, LIPID, CMP, T4F ####[place] [id number] [facility] Automated basophil %Ordered By: Peter Ahumada on 03-05-2024 Basophils/100 WBC (Bld) 0.7 % Normal . [facility] Comment on above: Performed By: #### C BC, TSH3, A1C WTH eA, LIPID, CMP, T4F ####[place] [id number] [facility] Automated basophil countOrde red By: Peter Ahumada on 03-05-2024 Basophils (Bld) [#/Vol] 0.0 10*3/uL Normal 0.0-0.2 [facility] Comment on above: Result Comment: PERF ORMED BY: [facility] [address] [place] [id number] PATHOLOGIST [employer] ALVIN VIDES M.D. Performed By: #### C BC, TSH3, A1C WTH eA, LIPID, CMP, T4F ####[address] Automated blood monocyte cou ntOrdered By: Peter Ahumada on 03-05-2024 Monocytes (Bld) [#/Vol] 0.5 10*3/uL Normal 0.0-0.8 [facility] Comment on above: Performed By: #### C BC, TSH3, A1C WTH eA, LIPID, CMP, T4F ####[place] [id number] [facility] Automated eosinophil %Ordere d By: Peter Ahumada on 03-05-2024 Eosinophils/100 WBC (Bld) 2.2 % Normal . [facility] Comment on above: Performed By: #### C BC, TSH3, A1C WTH eA, LIPID, CMP, T4F ####[address] Automated eosinophil countOr dered By: Peter Ahumada on 03-05-2024 Eosinophils (Bld) [#/Vol] 0.1 10*3/uL Normal 0.0-0.45 [facility] Comment on above: Performed By: #### C BC, TSH3, A1C WTH eA, LIPID, CMP, T4F ####[place] [id number] [facility] Automated monocyte %Ordered By: Peter Ahumada on 03-05-2024 Monocytes/100 WBC (Bld) 7.5 % Normal . [facility] Comment on above: Performed By: #### C BC, TSH3, A1C WTH eA, LIPID, CMP, T4F ####[place] [id number] [facility] Automated neutrophil %Ordere d By: Peter Ahumada on 03-05-2024 Neutrophils/100 WBC (Bld) 53.3 % Normal . [facility] Comment on above: Performed By: #### C BC, TSH3, A1C WTH eA, LIPID, CMP, T4F ####[address] [place] [address] [facility] Bilirubin.total [Mass/volume ] in Serum or PlasmaOrdered By: Peter Ahumada on 03-05-2024 Bilirubin [Mass/Vol] 0.4 mg/dL Normal 0.3-1.0 [facility] Comment on above: Performed By: #### C BC, TSH3, A1C WTH eA, LIPID, CMP, T4F ####[address] [address] [facility] Calcium [Mass/volume] in Ser um or PlasmaOrdered By: Peter Ahumada on 03-05-2024 Calcium [Mass/Vol] 8.9 mg/dL Normal 8.6-10.3 [facility] Comment on above: Performed By: #### C BC, TSH3, A1C WTH eA, LIPID, CMP, T4F ####[place] [address] [place] [address] [facility] Carbon dioxide, total [Moles /volume] in Serum or PlasmaOrdered By: Peter Ahumada on 03-05-2024 CO2 [Moles/Vol] 28.7 mmol/L Normal 21.0-31.0 [facility] Comment on above: Performed By: #### C BC, TSH3, A1C WTH eA, LIPID, CMP, T4F ####[address] [address] [place] Chloride [Moles/volume] in S renetta or PlasmaOrdered By: Peter Ahumada on 03-05-2024 Chloride [Moles/Vol] 103 mmol/L Normal 98-107 [facility] Comment on above: Performed By: #### C BC, TSH3, A1C WTH eA, LIPID, CMP, T4F ####[address] [address] [facility] Cholesterol [Mass/volume] in Serum or PlasmaOrdered By: Peter Ahumada on 03-05-2024 Cholesterol [Mass/Vol] 166 mg/dL Normal 140-200 [facility] Comment on above: Chol less than 200 m g/dl low riskChol 201-239 mg/dl borderline riskChol 240 mg/dl and greater high risk Result Comment: Chol less than 200 mg/dl low risk Chol 201-239 mg/dl borderline risk Chol 240 mg/dl and greater high risk Performed By: #### C BC, TSH3, A1C WTH eA, LIPID, CMP, T4F ####[place] [address] Cholesterol in LDL Calc [Mas s/Vol]Ordered By: Peter Ahumada on 03-05-2024 Cholesterol in LDL [Mass/Vol] 76 mg/dL 0-100 [facility] Comment on above: LDL ATP III CLASSIFI CATIONLDL less than 100 mg/dL OptimalLDL 100-129 mg/dL Near or above optimalLDL 130-159 mg/dL Borderline highLDL 160-189 mg/dL HighLDL greater than 189 mg/dL Very high Cholesterol in VLDL Calc [Ma ss/Vol]Ordered By: Peter Ahumada on 03-05-2024 Cholesterol in VLDL [Mass/Vol] 40 mg/dL [facility] Complete Blood Count Auto Di ffon 03-05-2024 Mean Corpuscular HGB Conc 33.6 g/dL Normal 32.0-35.0 [facility] Comment on above: Performed By: #### C BC, TSH3, A1C WTH eA, LIPID, CMP, T4F ####[place] [address] NRBC% 0.1 /100{WBC} Normal 0-0.5 [facility] Comment on above: Performed By: #### C BC, TSH3, A1C WTH eA, LIPID, CMP, T4F ####[address] Comprehensive Metabolic Pane matty 03-05-2024 Albumin [Mass/Vol] 4.0 g/dL Normal 3.5-5.7 [facility] Comment on above: Performed By: #### C BC, TSH3, A1C WTH eA, LIPID, CMP, T4F ####[address] GFR/1.73 sq M.predicted MDRD (S/P/Bld) [Vol rate/Area] mL/min/{1.73_m2} Normal [facility] Comment on above: Performed By: #### C BC, TSH3, A1C WTH eA, LIPID, CMP, T4F ####[address] [place] [address] [facility] Creatinine [Mass/volume] in Serum or PlasmaOrdered By: Peter Ahumada on 03-05-2024 Creatinine [Mass/Vol] 0.63 mg/dL Normal 0.60-1.20 [facility] Comment on above: Performed By: #### C BC, TSH3, A1C WTH eA, LIPID, CMP, T4F ####[address] [place] [address] [facility] Erythrocyte distribution wid th [Ratio] by Automated countOrdered By: Peter Ahumada on 03-05-2024 Erythrocyte distribution width (RBC) [Ratio] 13.4 % Normal 11.9-15.3 [facility] Comment on above: Performed By: #### C BC, TSH3, A1C WTH eA, LIPID, CMP, T4F ####[place] [place] [id number] [facility] Erythrocytes [#/volume] in B lood by Automated countOrdered By: Peter Ahumada on 03-05-2024 RBC (Bld) [#/Vol] 4.44 10*6/uL Normal 3.60-5.00 [facility] Comment on above: Performed By: #### C BC, TSH3, A1C WTH eA, LIPID, CMP, T4F ####[place] [id number] [facility] Glucose [Mass/volume] in Ser um or PlasmaOrdered By: Peter Ahumada on 03-05-2024 Glucose [Mass/Vol] 96 mg/dL Normal 70-100 [facility] Comment on above: ADA recommended refe rence rangeRandom Glucose Reference Range is dependent on time and content of last meal. Glucose of more than 200 mg/dL in a nonstressed, ambulatory subject supports the diagnosis of Diabetes Mellitus. Result Comment: [place] Glucose Reference Range is dependent on time and content of last meal. Glucose of more than 200 mg/dL in a nonstressed, ambulatory subject supports the diagnosis of Diabetes Mellitus. ADA recommended reference range Performed By: #### C BC, TSH3, A1C WTH eA, LIPID, CMP, T4F ####[place] [place] [id number] [facility] Glucose mean value [Mass/vol ume] in Blood Estimated from glycated hemoglobinOrdered By: Peter Ahumada on 03-05-2024 Average glucose Estimated from glycated hemoglobin (Bld) [Mass/Vol] 128 mg/dL [facility] Hematocrit [Volume Fraction] of Blood by Automated countOrdered By: Peter Ahumada on 03-05-2024 Hematocrit (Bld) [Volume fraction] 37.2 % Normal 34.0-46.4 [facility] Comment on above: Performed By: #### C BC, TSH3, A1C WTH eA, LIPID, CMP, T4F ####[place] [id number] [facility] Hemoglobin A1c percentageOrd ered By: Peter Ahumada on 03-05-2024 HbA1c (Bld) [Mass fraction] 6.1 % High 4.3-5.6 [facility] Comment on above: Increased risk for d iabetes: 5.7 - 6.4diabetes: >6.4glycemic control for adults with diabetes: <7.0 Result Comment: Incr eased risk for diabetes: 5.7 - 6.4 diabetes: >6.4 glycemic control for adults with diabetes: <7.0 Performed By: #### C BC, TSH3, A1C WTH eA, LIPID, CMP, T4F ####[place] [place] [address] [place] [id number] [facility] Hemoglobin [Mass/volume] in BloodOrdered By: Peter Ahumada on 03-05-2024 Hemoglobin (Bld) [Mass/Vol] 12.5 g/dL Normal 11.8-15.4 [facility] Comment on above: Performed By: #### C BC, TSH3, A1C WTH eA, LIPID, CMP, T4F ####[address] [address] [facility] Leukocytes [#/volume] correc bryan for nucleated erythrocytes in Blood by Automated counOrdered By: Peter Ahumada on 03-05-2024 WBC corrected for nucl RBC Auto (Bld) [#/Vol] 6.2 10*3/uL 3.8-11.6 [facility] Leukocytes [#/volume] in Blo od by Automated countOrdered By: Peter Ahumada on 03-05-2024 WBC (Bld) [#/Vol] 6.2 10*3/uL Normal 3.8-11.6 [facility] Comment on above: Performed By: #### C BC, TSH3, A1C WTH eA, LIPID, CMP, T4F ####[facility] [place] [address] [facility] Lipid Panelon 03-05-2024 LDL Cholesterol,Calculated 76 mg/dL Normal 0-100 [facility] Comment on above: Result Comment: LDL ATP III CLASSIFICATION LDL less than 100 mg/dL Optimal LDL 100-129 mg/dL Near or above optimal LDL 130-159 mg/dL Borderline high LDL 160-189 mg/dL High LDL greater than 189 mg/dL Very high Performed By: #### C BC, TSH3, A1C WTH eA, LIPID, CMP, T4F ####[facility] [place] [id number] [facility] Triglyceride w/Reflex 202 mg/dL High 0-149 [facility] Comment on above: Result Comment: TRIG ATP III CLASSIFICATION TRIG less than 150 mg/dL Normal TRIG 150-199 mg/dL Borderline high TRIG 200-500 mg/dL High TRIG greater than 500 mg/dL Very high Standard traceable to the Center for Disease Conrtrol and Prevention (CDC) test method. Performed By: #### C BC, TSH3, A1C WTH eA, LIPID, CMP, T4F ####[facility] [place] [address] [facility] VLDL CHOLESTEROL 40 mg/dL Normal [facility] Comment on above: Performed By: #### C BC, TSH3, A1C WTH eA, LIPID, CMP, T4F ####[facility] [id number] [place] [address] [facility] Lymphocytes [#/volume] in Bl ood by Automated countOrdered By: Peter Ahumada on 03-05-2024 Lymphocytes (Bld) [#/Vol] 2.2 10*3/uL Normal 1.00-4.8 [facility] Comment on above: Performed By: #### C BC, TSH3, A1C WTH eA, LIPID, CMP, T4F ####[place] [address] Lymphocytes/100 leukocytes i n Blood by Automated countOrdered By: Peter Ahumada on 03-05-2024 Lymphocytes/100 WBC (Bld) 36.3 % Normal . [facility] Comment on above: Performed By: #### C BC, TSH3, A1C WTH eA, LIPID, CMP, T4F ####[place] [address] MCH [Entitic mass] by Automa bryan countOrdered By: Peter Ahumada on 03-05-2024 MCH (RBC) [Entitic mass] 28.2 pg Normal 24.7-34.3 [facility] Comment on above: Performed By: #### C BC, TSH3, A1C WTH eA, LIPID, CMP, T4F ####[address] MCHC Auto (RBC) [Mass/Vol]Or dered By: Peter Ahumada on 03-05-2024 MCHC (RBC) [Mass/Vol] 33.6 g/dL 32.0-35.0 [facility] MCV [Entitic volume] by Auto mated countOrdered By: Peter Ahumada on 03-05-2024 MCV (RBC) [Entitic vol] 83.8 fL Normal 80-100 [facility] Comment on above: Performed By: #### C BC, TSH3, A1C WTH eA, LIPID, CMP, T4F ####[address] Neutrophils [#/volume] in Bl ood by Automated countOrdered By: Peter Ahumada on 03-05-2024 Neutrophils (Bld) [#/Vol] 3.3 10*3/uL Normal 1.8-7.7 [facility] Comment on above: Performed By: #### C BC, TSH3, A1C WTH eA, LIPID, CMP, T4F ####[place] [place] [address] [place] [id number] [facility] No Panel InformationOrdered By: Peter Ahumada on 03-05-2024 Estimated GFR (CKD-EPI) > 60.0 mL/Min [facility] Creatinine Clearance (Chem N/A [facility] Nucleated erythrocytes [Pres ence] in Blood by Automated countOrdered By: Peter Ahumada on 03-05-2024 Nucleated RBC Auto Ql (Bld) 0.1 /100{WBC} 0-0.5 [facility] Platelet mean volume [Entiti c volume] in Blood by Automated countOrdered By: Peter Ahumada on 03-05-2024 Platelet mean volume (Bld) [Entitic vol] 8.7 fL Normal 6.3-10.7 [facility] Comment on above: Performed By: #### C BC, TSH3, A1C WTH eA, LIPID, CMP, T4F ####[address] Platelets [#/volume] in Bloo d by Automated countOrdered By: Peter Ahumada on 03-05-2024 Platelets (Bld) [#/Vol] 333 10*3/uL Normal 150-450 [facility] Comment on above: Performed By: #### C BC, TSH3, A1C WTH eA, LIPID, CMP, T4F ####[place] [id number] [facility] Potassium [Moles/volume] in Serum or PlasmaOrdered By: Peter Ahumada on 03-05-2024 Potassium [Moles/Vol] 3.8 mmol/L Normal 3.5-5.1 [facility] Comment on above: Performed By: #### C BC, TSH3, A1C WTH eA, LIPID, CMP, T4F ####[place] [id number] [facility] Protein [Mass/volume] in Ser um or PlasmaOrdered By: Peter Ahumada on 03-05-2024 Protein [Mass/Vol] 6.7 g/dL Normal 6.4-8.9 [facility] Comment on above: Performed By: #### C BC, TSH3, A1C WTH eA, LIPID, CMP, T4F ####[place] [address] Serum globulin measurement b y calculation (mass/volume)Ordered By: Peter Ahumada on 03-05-2024 Globulin (S) [Mass/Vol] 2.7 g/dL [facility] Comment on above: Performed By: #### C BC, TSH3, A1C WTH eA, LIPID, CMP, T4F ####[place] [address] Serum or plasma albumin/glob ulin mass ratioOrdered By: Peter Ahumada on 03-05-2024 Albumin/Globulin [Mass ratio] 1.5 {ratio} [facility] Comment on above: Performed By: #### C BC, TSH3, A1C WTH eA, LIPID, CMP, T4F ####[place] [address] Serum or plasma anion gap de terminationOrdered By: Peter Ahumada on 03-05-2024 Anion gap [Moles/Vol] 11.1 mmol/L Normal 6.0-15.0 [facility] Comment on above: Performed By: #### C BC, TSH3, A1C WTH eA, LIPID, CMP, T4F ####[place] [address] Serum or plasma high density lipoprotein (HDL) cholesterol measurementOrdered By: Peter Ahumada on 03-05-2024 Cholesterol in HDL [Mass/Vol] 50 mg/dL Normal 23-92 [facility] Comment on above: HDL CHOL ATP-III CLA SSIFICATION Cardiovascular RiskHDL > or equal to 60 mg/dL LOWHDL < 40 mg/dL HIGH Result Comment: HDL CHOL ATP-III CLASSIFICATION Cardiovascular Risk HDL > or equal to 60 mg/dL LOW HDL < 40 mg/dL HIGH Performed By: #### C BC, TSH3, A1C WTH eA, LIPID, CMP, T4F ####[facility] [place] [id number] [facility] Serum or plasma total choles terol/high density lipoprotein (HDL) cholesterol mass ratOrdered By: Peter Ahumada on 03-05-2024 Cholesterol.total/Chol esterol in HDL [Mass ratio] 3.3 {ratio} Normal <5.0 [facility] Comment on above: Performed By: #### C BC, TSH3, A1C WTH eA, LIPID, CMP, T4F ####[address] Sodium [Moles/volume] in Ser um or PlasmaOrdered By: Peter Ahumada on 03-05-2024 Sodium [Moles/Vol] 139 mmol/L Normal 136-145 [facility] Comment on above: Performed By: #### C BC, TSH3, A1C WTH eA, LIPID, CMP, T4F ####[address] Thyrotropin [Units/volume] i n Serum or PlasmaOrdered By: Peter Ahumada on 03-05-2024 TSH Qn 0.29 m[IU]/L Low 0.45-5.33 [facility] Comment on above: Result Comment: PERF ORMED BY: [facility] [address] [place] [address] PATHOLOGIST [employer] ALVIN VIDES M.D. Performed By: #### C BC, TSH3, A1C WTH eA, LIPID, CMP, T4F ####[address] Thyroxine (T4) free [Mass/vo lume] in Serum or PlasmaOrdered By: Peter Ahumada on 03-05-2024 Free T4 [Mass/Vol] 0.81 ng/dL Normal 0.61-1.12 [facility] Comment on above: Performed By: #### C BC, TSH3, A1C WTH eA, LIPID, CMP, T4F ####[place] [id number] [facility] Triglyceride [Mass/volume] i n Serum or PlasmaOrdered By: Peter Ahumada on 03-05-2024 Triglyceride [Mass/Vol] 202 mg/dL High 0-149 [facility] Comment on above: TRIG ATP III CLASSIF ICATIONTRIG less than 150 mg/dL NormalTRIG 150-199 mg/dL Borderline highTRIG 200-500 mg/dL High TRIG greater than 500 mg/dL Very highStandard traceable to the Center for Disease Conrtrol and Prevention (CDC) test method. Urea nitrogen [Mass/volume] in Serum or PlasmaOrdered By: Peter Ahumada on 03-05-2024 Urea nitrogen [Mass/Vol] 11 mg/dL Normal 7-25 [facility] Comment on above: Performed By: #### C BC, TSH3, A1C WTH eA, LIPID, CMP, T4F ####[facility] [id number] XR elbow RT 2Von 02-13-2024 XR elbow RT 2V [facility] [address] [place] [address] XRay Report Signed Patient: Darling Khanna MR#: [id number] 1872 : 1980 Acct:[id number] Age/Sex: 43 / F ADM Date: 02/13/24 Loc: [facility] Room: Type: [facility] Attending Dr: Chas Meza DO Copies to: Chas Meza DO Ordering Provider: Chas Meza DO Date of Service: 02/13/24 XR/XR elbow RT 2V: S52.131A - Displaced fracture of neck of right radius, in... 2 views rightelbow plain film COMPARISON :None HISTORY: Status post right ureteral neck fracture ACUTE FINDINGS: Stable alignment. Continued healing. DEGENERATIVE CHANGE: Unremarkable SOFT TISSUE FINDINGS: Unremarkable JOINT EFFUSION: None POSTOP CHANGES: None BONE MINERALIZATION: Adequate XR/XR elbow RT 2V IMPRESSION: Healing fracture Impression dictated by: Osmani Stovall M.D.02/13/2024 4:07 PM Dictation Location: [place] [address] Transcribed By: [facility] 02/13/24 1609 Dictated By: Osmani Stovall DO 02/13/24 1607 Signed By: 02/13/24 1607 Normal [facility] HCG ( test) IA.rapi d Ql (U)Ordered By: Rahul Rogers on 01-29-2024 HCG ( test) Ql (U) Negative [facility] HCG,Urineon 01-29-2024 Beta HCG ( test) Ql (U) Negative Normal [facility] Comment on above: Result Comment: PERF ORMED BY: [place] [address] PATHOLOGIST [employer] ALVIN VIDES M.D. Performed By: #### U HCG #### [address] XR elbow RT 2Von 01-14-2024 XR elbow RT 2V [facility] [address] [place] [address] XRay Report Signed Patient: Darling Khanna MR#: [id number] 1872 : 1980 Acct:[id number] Age/Sex: 43 / F ADM Date: 01/14/24 Loc: [facility] Room: Type: [facility] Attending Dr: Chas Meza DO Copies to: Chas Meza DO Ordering Provider: Chas Meza DO Date of Service: 01/14/24 XR/XR elbow RT 2V: S52.131A - Displaced fracture of neck of right radius, in... XR elbow RT 2V 01/14/2024 1:01 PM SIGNS AND SYMPTOMS: Status post right radial neck fracture, follow-up PROTOCOL: Frontal and lateral radiograph of the right elbow COMPARISON: 12/28/2023 FINDINGS: There is increasing sclerosis along the radial neck fracture consistent with a healing response. No change in alignment. Healing remains incomplete. The articular surfaces are preserved. The joint effusion has improved. XR/XR elbow RT 2V IMPRESSION: There is increasing sclerosis along the radial neck fracture consistent with a healing response. No change in alignment. Healing remains incomplete. Impression dictated by: Chetan Ortiz M.D.01/14/2024 3:36 PM Dictation Location: [place] [address] Transcribed By: ADIA 01/14/24 1536 Dictated By: Chetan Ortiz II, MD 01/14/24 1535 Signed By: 01/14/24 1536 Normal [facility] US abdomen limitedon 024 US abdomen limited [place] [id number] Ultrasound Report Signed Patient: Darling Khanna MR#: [id number] 18[birth year] : 1980 Acct:[id number] Age/Sex: 43 / F ADM Date: 12/31/23 Loc: Room: Type: [facility] Attending Dr: Alber Haines DO Ordering Provider: Alber Haines DO Date of Service: 12/31/23 US/US abdomen limited: R10.33 Copies to: Alber Haines DO LIMITED ABDOMINAL ULTRASOUND - periumbilical: CLINICAL HISTORY: Prior history of umbilical hernia repair. Abdominal pain just above the umbilicus COMPARISON: CT 11/01/2022 and 02/15/2001 Real-time ultrasound evaluation of the abdominal wall in the supra umbilical region was performed in the supine and erect, with and without Valsalva. Just above the umbilicus, there is a hypoechoic protrusion at the abdominal wall at the site of clinical concern. This measures under a centimeter in depth and approximately 3 cm in width. This could relate to diastases of the rectus and/or small ventral hernia containing fat. This does not change with Valsalva nor is there evidence of herniation of bowel into this site. Appearance correlates with patient's prior CT studies. US/US abdomen limited IMPRESSION: SMALL UMBILICAL/PERIUMBILICAL HERNIA CONTAINING FAT. APPEARANCE IS SIMILAR TO THE COMPARISON CT. Impression dictated by: Ayleen Zheng M.D.12/31/2023 12:14 PM Dictation Location: [facility] Tech: Nelliesabine Solis Transcribed By: ADIA 12/31/23 1214 Dictated By: Ayleen Zheng MD 12/31/23 1206 Signed By: 12/31/23 1214 Normal [facility] XR knee RT 4V*on 12-28-2023 XR knee RT 4V* [facility] [address] [address] XRay Report Signed Patient: Darling Khanna MR#: [id number] 18[birth year] : 1980 Acct:[id number] Age/Sex: 43 / F ADM Date: 12/28/23 Loc: XD Room: Type: [facility] Attending Dr: Peter Ahumada DO Copies to: Peter Ahumada DO Ordering Provider: Peter Ahumada DO Date of Service: 12/28/23 XR/XR elbow RT min 3V*: Suspicion for fracture ([id number]) XR/XR knee RT 4V*: W19.XXXA - Unspecified fall, initial encounter 4 views rightelbow plain film COMPARISON :None HISTORY: Fell down stairs. Right elbow pain. ACUTE FINDINGS: Mildly impacted radial neck fracture. DEGENERATIVE CHANGE: Unremarkable SOFT TISSUE FINDINGS: Unremarkable JOINT EFFUSION: Small joint effusion. POSTOP CHANGES: None BONE MINERALIZATION: Adequate XR/XR elbow RT min 3V* IMPRESSION: Mildly impacted radial neck fracture. Small joint effusion. 4 views right knee Small joint effusion. Mild patellofemoral medial compartment degeneration. No fracture. Adequate alignment. Prepatellar soft tissue swelling. IMPRESSION: Prepatellar soft tissue swelling. No acute fracture. Impression dictated by: Osmani Stovall M.D.12/28/2023 9:38 AM Dictation Location: [place] [address] Transcribed By: [facility] 12/28/23 0938 Dictated By: Osmani Stovall DO 12/28/23 0932 Signed By: 12/28/23 0938 Normal [facility] XR clavicle RT*on 12-17-2023 XR clavicle RT* [facility] [address] [address] XRay Report Signed Patient: Darling Khanna MR#: [id number] 18[birth year] : 1980 Acct:[id number] Age/Sex: 43 / F ADM Date: 12/17/23 Loc: ER Room: Type: [facility] ER Attending Dr: Copies to: Igor Rudd MD Ordering Provider: Igor Rudd MD Date of Service: 12/17/23 XR/XR clavicle RT*: Fall ([id number]) XR/XR shoulder RT min 2V*: Fall XR shoulder RT min 2V*, XR clavicle RT* 12/17/2023 7:54 AM SIGNS AND SYMPTOMS: Fall, pain across right clavicle PROTOCOL: Frontal, Grashey, and scapular Y views of the right shoulder. Frontal and axial views of the right clavicle. COMPARISON: None FINDINGS: Right shoulder: The glenohumeral joint and acromioclavicular joint are preserved. There is no evidence of fracture or dislocation. The visualized right hemithorax is grossly intact. Right clavicle: The bones are in anatomic alignment. There is no evidence of fracture or dislocation. The acromial clavicular joint and sternoclavicular joint are preserved. XR/XR shoulder RT min 2V* IMPRESSION: Right shoulder: No fracture or dislocation. Right clavicle: No fracture. Impression dictated by: Chetan Ortiz M.D.12/17/2023 9:23 AM Dictation Location: [place] [address] Transcribed By: [facility] 12/17/23922 Dictated By: Chetan Ortiz II, MD 12/17/23918 Signed By: 12/17/23922 Normal [facility] XR forearm RT 2V*on 12-17-19 24 XR forearm RT 2V* [facility] [place] [address] XRay Report Signed Patient: Draling Khanna MR#: [id number] 1870 : 1980 Acct:[id number] Age/Sex: 43 / F ADM Date: 12/17/23 Loc: ER Room: Type: [facility] ER Attending Dr: Copies to: Igor Rudd MD Ordering Provider: Igor Rudd MD Date of Service: 12/17/23 XR/XR forearm RT 2V*: Fall XR forearm RT 2V* 12/17/2023 7:54 AM SIGNS AND SYMPTOMS: Fall with abrasions PROTOCOL: Frontal and lateral radiographs of the right forearm COMPARISON: None FINDINGS: The bones are in anatomic alignment. There is no evidence of fracture or dislocation. No significant soft tissue swelling. Visualized right wrist and elbow are grossly intact. XR/XR forearm RT 2V* IMPRESSION: No fracture. Impression dictated by: Chetan Ortiz M.D.12/17/2023 9:24 AM Dictation Location: [facility] Transcribed By: [facility] 12/17/23923 Dictated By: Chetan Ortiz II, MD 12/17/23922 Signed By: 12/17/23923 Normal [facility] XR knee LT 2Von 12-17-2023 XR knee LT 2V [facility] [place] [address] XRay Report Signed Patient: Darling Khanna MR#: [id number] 18[birth year] : 1980 Acct:[id number] Age/Sex: 43 / F ADM Date: 12/17/23 Loc: ER Room: Type: [facility] ER Attending Dr: Copies to: Igor Rudd MD Ordering Provider: Igor Rudd MD Date of Service: 12/17/23 XR/XR knee LT 2V: Fall XR knee LT 2V 12/17/2023 7:54 AM SIGNS AND SYMPTOMS: Fall, abrasions to left knee PROTOCOL: Frontal and lateral radiograph to left knee COMPARISON: None. FINDINGS: Soft tissue swelling is noted in the prepatellar and pretibial soft tissues. No joint effusion. No fracture or dislocation. The joint spaces are preserved. XR/XR knee LT 2V IMPRESSION: No fracture. Soft tissue swelling is noted in the prepatellar and pretibial soft tissues. Impression dictated by: Chetan Ortiz M.D.12/17/2023 9:25 AM Dictation Location: [id number]-13 Transcribed By: [facility] 12/17/23924 Dictated By: Chetan Ortiz II, MD 12/17/23923 Signed By: 12/17/23924 Normal [facility] MM screening mammo BI w/CADo n 12-03-2023 MM screening mammo BI w/CAD [facility] [place] [id number] Mammography Report Signed Patient: Darling Khanna MR#: [id number] 1872 : 1980 Acct:[id number] Age/Sex: 43 / F ADM Date: 12/03/23 Loc: [place] Room: Type: [facility] Attending Dr: Referral Self Copies to: Peter Ahumada,DO SELF,REFERRAL Ordering Provider: SELF,REFERRAL Date of Service: 12/03/23 MM/MM screening mammo BI w/CAD: SCREEN CLINICAL DATA: Screening for malignancy. BILATERAL SCREENING MAMMOGRAMS - FULL FIELD DIGITAL WITH TOMOSYNTHESIS AND CAD Tomosynthesis craniocaudal and mediolateral oblique views of both breasts were obtained using low- dose digital technique. Comparison is made to prior studies from 11/23/2022, 10/04/2021, 07/12/2020, and 07/14/2019. This examination was reviewed with the aid of CAD. The breast parenchyma is heterogeneously dense. Surgical clips are present in the right breast consistent with prior lumpectomy. Benign-appearing lymph nodes are noted along the chest wall. Punctate benign-appearing calcifications are present bilaterally. Similar focal asymmetries are present bilaterally. There are no dominant masses, typically malignant calcifications or architectural distortion. There has been no significant interval change. MM/MM screening mammo BI w/CAD IMPRESSION: NO MAMMOGRAPHIC EVIDENCE OF MALIGNANCY. ROUTINE FOLLOW-UP IS RECOMMENDED IN ONE YEAR. RESULT CODE: 2 Benign Findings(s) DENSITY CODE: 3 (approximately 51-75% glandular) FOLLOW UP: 1YR The false-negative rate of mammography is approximately 10-percent. Management of a palpable abnormality must be based on clinical grounds. Patient was entered into a reminder system with a target due date for the next mammogram. Impression dictated by: Chetan Ortiz M.D.12/03/2023 4:13 PM Dictation Location: [facility] Transcribed By: ADIA 12/03/23 1613 Dictated By: Chetan Ortiz II, MD 12/03/23 1607 Signed By: 12/03/23 1613 Normal [facility] Thyrotropin [Units/volume] i n Serum or PlasmaOrdered By: Peter Ahumada on 08-22-2023 TSH Qn 0.15 m[IU]/L Low 0.45-5.33 [facility] Comment on above: Order Comment: Reaso n for Exam Hypothyroidism Result Comment: PERF ORMED BY: [place] [address] PATHOLOGIST [employer] ALVIN VIDES M.D. Performed By: #### T SH3, T4F ####[place] [id number] [place] [id number] [facility] Thyroxine (T4) free [Mass/vo lume] in Serum or PlasmaOrdered By: Peter Ahumada on 08-22-2023 Free T4 [Mass/Vol] 0.97 ng/dL Normal 0.61-1.12 [facility] Comment on above: Order Comment: Reaso n for Exam Hypothyroidism Performed By: #### T SH3, T4F ####[place] [id number] [facility] US breast LT limitedon 08-13 US breast LT limited [facility] [address] [place] [address] [place] [address] Ultrasound Report Signed Patient: Darling Khanna MR#: [id number] 1872 : 1980 Acct:[id number] Age/Sex: 43 / F ADM Date: 08/13/23 Loc: [place] Room: Type: [facility] Attending Dr: Peter Ahumada DO Ordering Provider: Peter Ahumada DO Date of Service: 08/13/23 US/US breast LT limited: Abnormal mammogram Copies to: Peter Ahumada DO CLINICAL DATA: Six-month follow-up of cysts 11:00 position of the left breast. In the interim, the cyst has been drained by the referring surgeon. LIMITED left BREAST ULTRASOUND COMPARISON:Mammograms dating back to 2019. Left breast ultrasound 01/15/2023. FINDINGS: The cyst at the 11:00 position of the left breast approximately 4 to 5 cm from nipple seen on the prior ultrasound study has resolved status post aspiration. A few small cysts are identified within this region, largest measuring 1 cm in greatest dimension. No solid mass. US/US breast LT limited IMPRESSION: NO ULTRASOUND EVIDENCE OF MALIGNANCY. Patient should return for bilateral screening mammography in November 2023. RESULT CODE: 2 Benign Findings(s) Management of a palpable abnormality must be based on clinical grounds. Patient was entered into a reminder system with a target due date for the next mammogram. Impression dictated by: Maurice Person Jr., DRowanORowan08/13/2023 11:14 AM Dictation Location: [facility] Tech: Dayan Ahumada Transcribed By: ADIA 08/13/23 1114 Dictated By: Maurice Preson Jr, DO 08/13/23 1111 Signed By: 08/13/23 1114 Normal [facility] Alanine aminotransferase [En zymatic activity/volume] in Serum or PlasmaOrdered By: Peter Ahumada on 05-25-2023 ALT [Catalytic activity/Vol] 7 U/L 7-52 [facility] Albumin [Mass/volume] in Ser um or Plasma by Bromocresol green (BCG) dye binding methoOrdered By: ePter Ahumada on 05-25-2023 Albumin BCG dye [Mass/Vol] 3.8 g/dL 3.5-5.7 [facility] Alkaline phosphatase [Enzyma tic activity/volume] in Serum or PlasmaOrdered By: Peter Ahumada on 05-25-2023 ALP [Catalytic activity/Vol] 54 U/L 34-104 [facility] Aspartate aminotransferase [ Enzymatic activity/volume] in Serum or PlasmaOrdered By: Peter Ahumada on 05-25-2023 AST [Catalytic activity/Vol] 17 U/L 13-39 [facility] Basophils Auto (Bld) [#/Vol] Ordered By: Peter Ahumada on 05-25-2023 Basophils (Bld) [#/Vol] 0.1 10*3/uL 0.0-0.2 [facility] Basophils/100 WBC Auto (Bld) Ordered By: Peter Ahumada on 05-25-2023 Basophils/100 WBC (Bld) 1.1 % . [facility] Bilirubin.total [Mass/volume ] in Serum or PlasmaOrdered By: Peter Ahumada on 05-25-2023 Bilirubin [Mass/Vol] 0.3 mg/dL 0.3-1.0 [facility] Calcium [Mass/volume] in Ser um or PlasmaOrdered By: Peter Ahumada on 05-25-2023 Calcium [Mass/Vol] 8.8 mg/dL 8.6-10.3 [facility] Carbon dioxide, total [Moles /volume] in Serum or PlasmaOrdered By: Peter Ahumada on 05-25-2023 CO2 [Moles/Vol] 29.9 mmol/L 21.0-31.0 [facility] Chloride [Moles/volume] in S renetta or PlasmaOrdered By: Peter Ahumada on 05-25-2023 Chloride [Moles/Vol] 107 mmol/L 98-107 [facility] Cholesterol [Mass/volume] in Serum or PlasmaOrdered By: Peter Ahumada on 05-25-2023 Cholesterol [Mass/Vol] 181 mg/dL 140-200 [facility] Comment on above: Chol less than 200 m g/dl low riskChol 201-239 mg/dl borderline riskChol 240 mg/dl and greater high risk Cholesterol in LDL Calc [Mas s/Vol]Ordered By: Peter Ahumada on 05-25-2023 Cholesterol in LDL [Mass/Vol] 115 mg/dL 0-100 [facility] Comment on above: LDL ATP III CLASSIFI CATIONLDL less than 100 mg/dL OptimalLDL 100-129 mg/dL Near or above optimalLDL 130-159 mg/dL Borderline highLDL 160-189 mg/dL HighLDL greater than 189 mg/dL Very high Cholesterol in VLDL Calc [Ma ss/Vol]Ordered By: Peter Ahumada on 05-25-2023 Cholesterol in VLDL [Mass/Vol] 22 mg/dL [facility] Creatinine [Mass/volume] in Serum or PlasmaOrdered By: Peter Ahumada on 05-25-2023 Creatinine [Mass/Vol] 0.59 mg/dL 0.60-1.20 [facility] Eosinophils Auto (Bld) [#/Vo l]Ordered By: Peter Ahumada on 05-25-2023 Eosinophils (Bld) [#/Vol] 0.1 10*3/uL 0.0-0.45 [facility] Eosinophils/100 WBC Auto (Bl d)Ordered By: Peter Ahumada on 05-25-2023 Eosinophils/100 WBC (Bld) 1.9 % . [facility] Erythrocyte distribution wid th Auto (RBC) [Ratio]Ordered By: Peter Ahumada on 05-25-2023 Erythrocyte distribution width (RBC) [Ratio] 13.7 % 11.9-15.3 [facility] Globulin Calc (S) [Mass/Vol] Ordered By: Peter Ahumada on 05-25-2023 Globulin (S) [Mass/Vol] 2.7 g/dL [facility] Glucose [Mass/volume] in Ser um or PlasmaOrdered By: Peter Ahumada on 05-25-2023 Glucose [Mass/Vol] 87 mg/dL 70-100 [facility] Comment on above: ADA recommended refe rence rangeRandom Glucose Reference Range is dependent on time and content of last meal. Glucose of more than 200 mg/dL in a nonstressed, ambulatory subject supports the diagnosis of Diabetes Mellitus. Glucose mean value [Mass/vol ume] in Blood Estimated from glycated hemoglobinOrdered By: Peter Ahumada on 05-25-2023 Average glucose Estimated from glycated hemoglobin (Bld) [Mass/Vol] 126 mg/dL [facility] Hematocrit Auto (Bld) [Volum e fraction]Ordered By: Peter Ahumada on 05-25-2023 Hematocrit (Bld) [Volume fraction] 36.2 % 34.0-46.4 [facility] Hemoglobin A1c percentageOrd ered By: Peter Ahumada on 05-25-2023 HbA1c (Bld) [Mass fraction] 6.0 % 4.3-5.6 [facility] Comment on above: Increased risk for d iabetes: 5.7 - 6.4diabetes: >6.4glycemic control for adults with diabetes: <7.0 Hemoglobin [Mass/volume] in BloodOrdered By: Peter Ahumada on 05-25-2023 Hemoglobin (Bld) [Mass/Vol] 11.8 g/dL 11.8-15.4 [facility] Leukocytes [#/volume] correc bryan for nucleated erythrocytes in Blood by Automated counOrdered By: Peter Ahumada on 05-25-2023 WBC corrected for nucl RBC Auto (Bld) [#/Vol] 6.1 10*3/uL 3.8-11.6 [facility] Lymphocytes Auto (Bld) [#/Vo l]Ordered By: Peter Ahumada on 05-25-2023 Lymphocytes (Bld) [#/Vol] 2.0 10*3/uL 1.00-4.8 [facility] Lymphocytes/100 WBC Auto (Bl d)Ordered By: Peter Ahumada on 05-25-2023 Lymphocytes/100 WBC (Bld) 32.1 % . [facility] MCH Auto (RBC) [Entitic mass ]Ordered By: Peter Ahumada on 05-25-2023 MCH (RBC) [Entitic mass] 27.3 pg 24.7-34.3 [facility] MCHC Auto (RBC) [Mass/Vol]Or dered By: Peter Ahumada on 05-25-2023 MCHC (RBC) [Mass/Vol] 32.7 g/dL 32.0-35.0 [facility] MCV Auto (RBC) [Entitic vol] Ordered By: Peter Ahumada on 05-25-2023 MCV (RBC) [Entitic vol] 83.5 fL 80-100 [facility] Monocytes Auto (Bld) [#/Vol] Ordered By: Peter Ahumada on 05-25-2023 Monocytes (Bld) [#/Vol] 0.3 10*3/uL 0.0-0.8 [facility] Monocytes/100 WBC Auto (Bld) Ordered By: Peter Ahumada on 05-25-2023 Monocytes/100 WBC (Bld) 5.2 % . [facility] Neutrophils Auto (Bld) [#/Vo l]Ordered By: Peter Ahumada on 05-25-2023 Neutrophils (Bld) [#/Vol] 3.6 10*3/uL 1.8-7.7 [facility] Neutrophils/100 WBC Auto (Bl d)Ordered By: Peter Ahumada on 05-25-2023 Neutrophils/100 WBC (Bld) 59.7 % . [facility] No Panel InformationOrdered By: Peter Ahumada on 05-25-2023 Estimated GFR (CKD-EPI) > 60.0 mL/Min [facility] Creatinine Clearance (Chem N/A [facility] Nucleated erythrocytes [Pres ence] in Blood by Automated countOrdered By: Peter Ahumada on 05-25-2023 Nucleated RBC Auto Ql (Bld) 0.1 /100{WBC} 0-0.5 [facility] Platelet mean volume Auto (B ld) [Entitic vol]Ordered By: Peter Ahumada on 05-25-2023 Platelet mean volume (Bld) [Entitic vol] 8.5 fL 6.3-10.7 [facility] Platelets Auto (Bld) [#/Vol] Ordered By: Peter Ahumada on 05-25-2023 Platelets (Bld) [#/Vol] 364 10*3/uL 150-450 [facility] Potassium [Moles/volume] in Serum or PlasmaOrdered By: Peter Ahumada on 05-25-2023 Potassium [Moles/Vol] 4.0 mmol/L 3.5-5.1 [facility] Protein [Mass/volume] in Ser um or PlasmaOrdered By: Peter Ahumada on 05-25-2023 Protein [Mass/Vol] 6.5 g/dL 6.4-8.9 [facility] RBC Auto (Bld) [#/Vol]Ordere d By: Peter Ahumada on 05-25-2023 RBC (Bld) [#/Vol] 4.34 10*6/uL 3.60-5.00 [facility] Serum or plasma albumin/glob ulin mass ratioOrdered By: Peter Ahumada on 05-25-2023 Albumin/Globulin [Mass ratio] 1.4 {ratio} [facility] Serum or plasma anion gap de terminationOrdered By: Peter Ahumada on 05-25-2023 Anion gap [Moles/Vol] 10.1 mmol/L 6.0-15.0 [facility] Serum or plasma high density lipoprotein (HDL) cholesterol measurementOrdered By: Peter Ahumada on 05-25-2023 Cholesterol in HDL [Mass/Vol] 44 mg/dL 23-92 [facility] Comment on above: HDL CHOL ATP-III CLA SSIFICATION Cardiovascular RiskHDL > or equal to 60 mg/dL LOWHDL < 40 mg/dL HIGH Serum or plasma total choles terol/high density lipoprotein (HDL) cholesterol mass ratOrdered By: Peter Ahumada on 05-25-2023 Cholesterol.total/Chol esterol in HDL [Mass ratio] 4.1 {ratio} <5.0 [facility] Sodium [Moles/volume] in Ser um or PlasmaOrdered By: Peter Ahumada on 05-25-2023 Sodium [Moles/Vol] 143 mmol/L 136-145 [facility] Thyrotropin [Units/volume] i n Serum or PlasmaOrdered By: Peter Ahumada on 05-25-2023 TSH Qn 0.73 m[IU]/L 0.45-5.33 [facility] Thyroxine (T4) free [Mass/vo lume] in Serum or PlasmaOrdered By: Peter Ahumada on 05-25-2023 Free T4 [Mass/Vol] 0.79 ng/dL 0.61-1.12 [facility] Triglyceride [Mass/volume] i n Serum or PlasmaOrdered By: Peter Ahumada on 05-25-2023 Triglyceride [Mass/Vol] 112 mg/dL 0-149 [facility] Comment on above: TRIG ATP III CLASSIF ICATIONTRIG less than 150 mg/dL NormalTRIG 150-199 mg/dL Borderline highTRIG 200-500 mg/dL High TRIG greater than 500 mg/dL Very highStandard traceable to the Center for Disease Conrtrol and Prevention (CDC) test method. Urea nitrogen [Mass/volume] in Serum or PlasmaOrdered By: Peter Ahumada on 05-25-2023 Urea nitrogen [Mass/Vol] 10 mg/dL 7-25 [facility] WBC Auto (Bld) [#/Vol]Ordere d By: Peter Ahumada on 05-25-2023 WBC (Bld) [#/Vol] 6.1 10*3/uL 3.8-11.6 [facility] Thyrotropin [Units/volume] i n Serum or PlasmaOrdered By: Peter Ahumada on 03-19-2023 TSH Qn 2.20 m[IU]/L 0.45-5.33 [facility] Thyroxine (T4) free [Mass/vo lume] in Serum or PlasmaOrdered By: Peter Ahumada on 03-19-2023 Free T4 [Mass/Vol] 0.62 ng/dL 0.61-1.12 [facility] Alanine aminotransferase [En zymatic activity/volume] in Serum or PlasmaOrdered By: Alba Marshall on 11-01-2022 ALT [Catalytic activity/Vol] 7 U/L 7-52 [facility] Albumin [Mass/volume] in Ser um or Plasma by Bromocresol green (BCG) dye binding methoOrdered By: Alba Ibrahimore on 11-01-2022 Albumin BCG dye [Mass/Vol] 3.7 g/dL 3.5-5.7 [facility] Alkaline phosphatase [Enzyma tic activity/volume] in Serum or PlasmaOrdered By: [facility] on 11-01-2022 ALP [Catalytic activity/Vol] 47 U/L 34-104 [facility] Aspartate aminotransferase [ Enzymatic activity/volume] in Serum or PlasmaOrdered By: [facility] on 11-01-2022 AST [Catalytic activity/Vol] 12 U/L 13-39 [facility] Automated erythrocytes count in urine sediment (number/area)Ordered By: Albayehuda Marshall on 11-01-2022 RBC Auto (Urine sed) [#/Area] 1-2 [HPF] 0-4 [facility] Comment on above: --- 11/01/22 1049 -- -Ur RBC previously reported as: 1-2 /HPFMicroscopic results may be affected due to low specimen volume. Automated leukocytes count i n urine sediment (number/area)Ordered By: Albayehuda Marshall on 11-01-2022 WBC Auto (Urine sed) [#/Area] 1-2 [HPF] 0-4 [facility] Basophils Auto (Bld) [#/Vol] Ordered By: [facility] on 11-01-2022 Basophils (Bld) [#/Vol] 0.1 10*3/uL 0.0-0.2 [facility] Basophils/100 WBC Auto (Bld) Ordered By: [facility] on 11-01-2022 Basophils/100 WBC (Bld) 0.9 % . [facility] Bilirubin Test strip Ql (U)O rdered By: Alba Marshall on 11-01-2022 Bilirubin Ql (U) Negative Negative [facility] Bilirubin.direct [Mass/volum e] in Serum or PlasmaOrdered By: Alba Marshall on 11-01-2022 Bilirubin.direct [Mass/Vol] 0.10 mg/dL 0.03-0.18 [facility] Bilirubin.total [Mass/volume ] in Serum or PlasmaOrdered By: Alba Ibrahimore on 11-01-2022 Bilirubin [Mass/Vol] 0.3 mg/dL 0.3-1.0 [facility] Calcium [Mass/volume] in Ser um or PlasmaOrdered By: Alba Wrenimore on 11-01-2022 Calcium [Mass/Vol] 8.8 mg/dL 8.6-10.3 [facility] Carbon dioxide, total [Moles /volume] in Serum or PlasmaOrdered By: Alba Ibrahimore on 11-01-2022 CO2 [Moles/Vol] 27.6 mmol/L 21.0-31.0 [facility] Chloride [Moles/volume] in S renetta or PlasmaOrdered By: Alba Wrenimore on 11-01-2022 Chloride [Moles/Vol] 105 mmol/L 98-107 [facility] Choriogonadotropin.beta subu nit [Units/volume] in Serum or PlasmaOrdered By: Alba Marshall on 11-01-2022 HCG.beta subunit Qn m[IU]/mL [facility] Comment on above: Approximate Approxim ate hCG Gestational Age Range (mIU/ml) (weeks)0.2-1 5-50 1-2 50-500 2-3 100-5,000 3-4 500-10,000 4-5 1,000-50,000 5-6 10,000-100,000 6-8 15,000-200,000 8-12 10,000-100,000 Color Auto (U)Ordered By: Malgorzata Marshall on 11-01-2022 Color (U) Yellow Yellow [facility] Creatinine [Mass/volume] in Serum or PlasmaOrdered By: Alba Marshall on 11-01-2022 Creatinine [Mass/Vol] 0.60 mg/dL 0.60-1.20 [facility] Eosinophils Auto (Bld) [#/Vo l]Ordered By: Alba Marshall on 11-01-2022 Eosinophils (Bld) [#/Vol] 0.2 10*3/uL 0.0-0.45 [facility] Eosinophils/100 WBC Auto (Bl d)Ordered By: Alba Marshall on 11-01-2022 Eosinophils/100 WBC (Bld) 3.0 % . [facility] Erythrocyte distribution wid th Auto (RBC) [Ratio]Ordered By: Alba Marshall on 11-01-2022 Erythrocyte distribution width (RBC) [Ratio] 13.2 % 11.9-15.3 [facility] Globulin Calc (S) [Mass/Vol] Ordered By: Alba Marshall on 11-01-2022 Globulin (S) [Mass/Vol] 3.1 g/dL [facility] Glucose [Mass/volume] in Ser um or PlasmaOrdered By: [facility]ehuda [facility] on 11-01-2022 Glucose [Mass/Vol] 95 mg/dL 70-100 [facility] Comment on above: ADA recommended refe rence rangeRandom Glucose Reference Range is dependent on time and content of last meal. Glucose of more than 200 mg/dL in a nonstressed, ambulatory subject supports the diagnosis of Diabetes Mellitus. Hematocrit Auto (Bld) [Volum e fraction]Ordered By: Alba Marshall on 11-01-2022 Hematocrit (Bld) [Volume fraction] 36.8 % 34.0-46.4 [facility] Hemoglobin [Mass/volume] in BloodOrdered By: Alba Marshall on 11-01-2022 Hemoglobin (Bld) [Mass/Vol] 12.5 g/dL 11.8-15.4 [facility] Ketones Auto test strip (U) [Mass/Vol]Ordered By: Alba Marshall on 11-01-2022 Ketones (U) [Mass/Vol] Negative Negative [facility] - UrinalysisOrder ed By: Alba Marshall on 11-01-2022 Hyaline casts LM Ql (Urine sed) 0-8 [LPF] 0-8 [facility] Leukocytes [#/volume] correc bryan for nucleated erythrocytes in Blood by Automated counOrdered By: Alba Bullimore on 11-01-2022 WBC corrected for nucl RBC Auto (Bld) [#/Vol] 7.8 10*3/uL 3.8-11.6 [facility] Lymphocytes Auto (Bld) [#/Vo l]Ordered By: Alba Bullimore on 11-01-2022 Lymphocytes (Bld) [#/Vol] 1.5 10*3/uL 1.00-4.8 [facility] Lymphocytes/100 WBC Auto (Bl d)Ordered By: Alba Bullimore on 11-01-2022 Lymphocytes/100 WBC (Bld) 19.6 % . [facility] MCH Auto (RBC) [Entitic mass ]Ordered By: Alba Bullimore on 11-01-2022 MCH (RBC) [Entitic mass] 28.3 pg 24.7-34.3 [facility] MCHC Auto (RBC) [Mass/Vol]Or dered By: Alba Bullimore on 11-01-2022 MCHC (RBC) [Mass/Vol] 33.9 g/dL 32.0-35.0 [facility] MCV Auto (RBC) [Entitic vol] Ordered By: Alba Bullimore on 11-01-2022 MCV (RBC) [Entitic vol] 83.3 fL 80-100 [facility] Monocyte distribution width [Entitic volume] in Blood by AutomatedOrdered By: Alba Bullimore on 11-01-2022 Monocyte distribution width Auto (Bld) [Entitic vol] 17.79 % 0.00-20.00 [facility] Monocytes Auto (Bld) [#/Vol] Ordered By: Alba Bullimore on 11-01-2022 Monocytes (Bld) [#/Vol] 0.5 10*3/uL 0.0-0.8 [facility] Monocytes/100 WBC Auto (Bld) Ordered By: Alba Bullimore on 11-01-2022 Monocytes/100 WBC (Bld) 6.9 % . [facility] Neutrophils Auto (Bld) [#/Vo l]Ordered By: Alba Bullimore on 11-01-2022 Neutrophils (Bld) [#/Vol] 5.4 10*3/uL 1.8-7.7 [facility] Neutrophils/100 WBC Auto (Bl d)Ordered By: Alba Bullimore on 11-01-2022 Neutrophils/100 WBC (Bld) 69.6 % . [facility] Nitrite Test strip Ql (U)Ord ered By: Alba Bullimore on 11-01-2022 Nitrite Ql (U) Negative Negative [facility] No Panel InformationOrdered By: Alba Bullimore on 11-01-2022 Estimated GFR (CKD-EPI) > 60.0 mL/Min [facility] Creatinine Clearance (Chem 179.12 [facility] Nucleated erythrocytes [Pres ence] in Blood by Automated countOrdered By: Alba Holgerimore on 11-01-2022 Nucleated RBC Auto Ql (Bld) 0.1 /100{WBC} 0-0.5 [facility] Platelet mean volume Auto (B ld) [Entitic vol]Ordered By: Alba Bullimore on 11-01-2022 Platelet mean volume (Bld) [Entitic vol] 7.5 fL 6.3-10.7 [facility] Platelets Auto (Bld) [#/Vol] Ordered By: Alba Bullimore on 11-01-2022 Platelets (Bld) [#/Vol] 278 10*3/uL 150-450 [facility] Potassium [Moles/volume] in Serum or PlasmaOrdered By: Alba Bullimore on 11-01-2022 Potassium [Moles/Vol] 4.3 mmol/L 3.5-5.1 [facility] Protein Auto test strip (U) [Mass/Vol]Ordered By: Alba Bullimore on 11-01-2022 Protein (U) [Mass/Vol] Negative Negative [facility] Protein [Mass/volume] in Ser um or PlasmaOrdered By: Alba Bullimore on 11-01-2022 Protein [Mass/Vol] 6.8 g/dL 6.4-8.9 [facility] RBC Auto (Bld) [#/Vol]Ordere d By: Alba Bullimore on 11-01-2022 RBC (Bld) [#/Vol] 4.41 10*6/uL 3.60-5.00 [facility] Serum or plasma albumin/glob ulin mass ratioOrdered By: Alba Marshall on 11-01-2022 Albumin/Globulin [Mass ratio] 1.2 {ratio} [facility] Serum or plasma anion gap de terminationOrdered By: Alba Marshall on 11-01-2022 Anion gap [Moles/Vol] 10.7 mmol[facility]L [facility] Serum or plasma non-glucuron idated bilirubin measurement (mass/volume)Ordered By: Alba Marshall on 11-01-2022 Bilirubin.indirect [Mass/Vol] 0.2 mg/dL [facility] Sodium [Moles/volume] in Ser um or PlasmaOrdered By: Alba Marshall on 11-01-2022 Sodium [Moles/Vol] 139 mmol/L 136-145 [facility] Specific gravity Auto test s trip (U) [Rel density]Ordered By: Alba Marshall on 11-01-2022 Specific gravity (U) [Rel density] 1.021 1.001-1.030 [facility] Squamous epithelial cells de tection in urine sediment by light microscopyOrdered By: Alba Marshall on 11-01-2022 Epithelial cells.squamous LM Ql (Urine sed) 3-4 [HPF] 0-2 [facility] Urea nitrogen [Mass/volume] in Serum or PlasmaOrdered By: Alba Marshall on 11-01-2022 Urea nitrogen [Mass/Vol] 7 mg/dL 7-25 [facility] Urine bacteria detection by automated methodOrdered By: Alba Mrashall on 11-01-2022 Bacteria Auto Ql (U) 1+ None Seen [facility] Comment on above: --- 11/01/22 1050 -- -Ur Bact previously reported as: 1+ H Microscopic results may be affected due to low specimen volume. Urine clarity by refractomet ry automatedOrdered By: Alba Marshall on 11-01-2022 Clarity Refractometry automated (U) Clear Clear [facility] Urine glucose measurement by automated test strip (mass/volume)Ordered By: Alba Marshall on 11-01-2022 Glucose Auto test strip (U) [Mass/Vol] Normal mg/dL Normal [facility] Urine hemoglobin detection b y automated test stripOrdered By: Alba Marshall on 11-01-2022 Hemoglobin Auto test strip Ql (U) 1+ Negative [facility] Urine leukocyte esterase det ection by automated test stripOrdered By: Alba Marshall on 11-01-2022 Leukocyte esterase Auto test strip Ql (U) Negative Negative [facility] Urobilinogen Auto test strip (U) [Mass/Vol]Ordered By: Alba Marshall on 11-01-2022 Urobilinogen (U) [Mass/Vol] Normal mg/dL Normal [facility] WBC Auto (Bld) [#/Vol]Ordere d By: Alba Marshall on 11-01-2022 WBC (Bld) [#/Vol] 7.8 10*3/uL 3.8-11.6 [facility] Yeast detection in urine sed iment by light microscopyOrdered By: Alba Marshall on 11-01-2022 Yeast LM Ql (Urine sed) None seen [HPF] None Seen [facility] Comment on above: --- 11/01/22 1050 -- -Ur Yeast previously reported as: None Seen /HPFMicroscopic results may be affected due to low specimen volume.--- 11/01/22 1058 ---Ur Yeast previously reported as: /HPF--- 11/01/22 1050 ---Ur Yeast previously reported as: None Seen /HPFMicroscopic results may be affected due to low specimen volume. pH Auto test strip (U)Ordere d By: Alba Marshall on 11-01-2022 pH (U) 6.5 [pH] 5.0-9.0 [facility] Alanine aminotransferase [En zymatic activity/volume] in Serum or PlasmaOrdered By: Peter Ahumada on 10-31-2022 ALT [Catalytic activity/Vol] 8 U/L 7-52 [facility] Albumin [Mass/volume] in Ser um or Plasma by Bromocresol green (BCG) dye binding methoOrdered By: Peter Ahumada on 10-31-2022 Albumin BCG dye [Mass/Vol] 3.8 g/dL 3.5-5.7 [facility] Alkaline phosphatase [Enzyma tic activity/volume] in Serum or PlasmaOrdered By: Peter Ahumada on 10-31-2022 ALP [Catalytic activity/Vol] 49 U/L 34-104 [facility] Aspartate aminotransferase [ Enzymatic activity/volume] in Serum or PlasmaOrdered By: Peter Ahumada on 10-31-2022 AST [Catalytic activity/Vol] 16 U/L 13-39 [facility] Basophils Auto (Bld) [#/Vol] Ordered By: Peter Ahumada on 10-31-2022 Basophils (Bld) [#/Vol] 0.1 10*3/uL 0.0-0.2 [facility] Basophils/100 WBC Auto (Bld) Ordered By: Peter Ahumada on 10-31-2022 Basophils/100 WBC (Bld) 0.9 % . [facility] Bilirubin.total [Mass/volume ] in Serum or PlasmaOrdered By: Peter Ahumada on 10-31-2022 Bilirubin [Mass/Vol] 0.3 mg/dL 0.3-1.0 [facility] Calcium [Mass/volume] in Ser um or PlasmaOrdered By: Peter Ahumada on 10-31-2022 Calcium [Mass/Vol] 9.0 mg/dL 8.6-10.3 [facility] Carbon dioxide, total [Moles /volume] in Serum or PlasmaOrdered By: Peter Ahumada on 10-31-2022 CO2 [Moles/Vol] 25.8 mmol/L 21.0-31.0 [facility] Chloride [Moles/volume] in S renetta or PlasmaOrdered By: Peter Ahumada on 10-31-2022 Chloride [Moles/Vol] 106 mmol/L 98-107 [facility] Cholesterol [Mass/volume] in Serum or PlasmaOrdered By: Peter Ahumada on 10-31-2022 Cholesterol [Mass/Vol] 152 mg/dL 140-200 [facility] Comment on above: Chol less than 200 m g/dl low riskChol 201-239 mg/dl borderline riskChol 240 mg/dl and greater high risk Cholesterol in LDL Calc [Mas s/Vol]Ordered By: Peter Ahumada on 10-31-2022 Cholesterol in LDL [Mass/Vol] 74 mg/dL 0-100 [facility] Comment on above: LDL ATP III CLASSIFI CATIONLDL less than 100 mg/dL OptimalLDL 100-129 mg/dL Near or above optimalLDL 130-159 mg/dL Borderline highLDL 160-189 mg/dL HighLDL greater than 189 mg/dL Very high Cholesterol in VLDL Calc [Ma ss/Vol]Ordered By: Peter Ahumada on 10-31-2022 Cholesterol in VLDL [Mass/Vol] 25 mg/dL [facility] Creatinine [Mass/volume] in Serum or PlasmaOrdered By: Peter Ahumada on 10-31-2022 Creatinine [Mass/Vol] 0.55 mg/dL 0.60-1.20 [facility] Eosinophils Auto (Bld) [#/Vo l]Ordered By: Peter Ahumada on 10-31-2022 Eosinophils (Bld) [#/Vol] 0.2 10*3/uL 0.0-0.45 [facility] Eosinophils/100 WBC Auto (Bl d)Ordered By: Peter Ahumada on 10-31-2022 Eosinophils/100 WBC (Bld) 2.9 % . [facility] Erythrocyte distribution wid th Auto (RBC) [Ratio]Ordered By: Peter Ahumada on 10-31-2022 Erythrocyte distribution width (RBC) [Ratio] 13.3 % 11.9-15.3 [facility] Globulin Calc (S) [Mass/Vol] Ordered By: Peetr Ahumada on 10-31-2022 Globulin (S) [Mass/Vol] 2.8 g/dL [facility] Glucose [Mass/volume] in Ser um or PlasmaOrdered By: Peter Ahumada on 10-31-2022 Glucose [Mass/Vol] 98 mg/dL 70-100 [facility] Comment on above: ADA recommended refe rence rangeRandom Glucose Reference Range is dependent on time and content of last meal. Glucose of more than 200 mg/dL in a nonstressed, ambulatory subject supports the diagnosis of Diabetes Mellitus. Hematocrit Auto (Bld) [Volum e fraction]Ordered By: Peter Ahumada on 10-31-2022 Hematocrit (Bld) [Volume fraction] 37.3 % 34.0-46.4 [facility] Hemoglobin [Mass/volume] in BloodOrdered By: Peter Ahumada on 10-31-2022 Hemoglobin (Bld) [Mass/Vol] 12.4 g/dL 11.8-15.4 [facility] Leukocytes [#/volume] correc bryan for nucleated erythrocytes in Blood by Automated counOrdered By: Peter Ahumada on 10-31-2022 WBC corrected for nucl RBC Auto (Bld) [#/Vol] 8.2 10*3/uL 3.8-11.6 [facility] Lymphocytes Auto (Bld) [#/Vo l]Ordered By: Peter Ahumada on 10-31-2022 Lymphocytes (Bld) [#/Vol] 1.8 10*3/uL 1.00-4.8 [facility] Lymphocytes/100 WBC Auto (Bl d)Ordered By: Peter Ahumada on 10-31-2022 Lymphocytes/100 WBC (Bld) 21.7 % . [facility] MCH Auto (RBC) [Entitic mass ]Ordered By: Peter Ahumada on 10-31-2022 MCH (RBC) [Entitic mass] 28.0 pg 24.7-34.3 [facility] MCHC Auto (RBC) [Mass/Vol]Or dered By: Peter Auhmada on 10-31-2022 MCHC (RBC) [Mass/Vol] 33.3 g/dL 32.0-35.0 [facility] MCV Auto (RBC) [Entitic vol] Ordered By: Peter Ahumada on 10-31-2022 MCV (RBC) [Entitic vol] 84.1 fL 80-100 [facility] Monocytes Auto (Bld) [#/Vol] Ordered By: Peter Ahumada on 10-31-2022 Monocytes (Bld) [#/Vol] 0.5 10*3/uL 0.0-0.8 [facility] Monocytes/100 WBC Auto (Bld) Ordered By: Peter Ahumada on 10-31-2022 Monocytes/100 WBC (Bld) 6.2 % . [facility] Neutrophils Auto (Bld) [#/Vo l]Ordered By: Peter Ahumada on 10-31-2022 Neutrophils (Bld) [#/Vol] 5.6 10*3/uL 1.8-7.7 [facility] Neutrophils/100 WBC Auto (Bl d)Ordered By: Peter Ahumada on 10-31-2022 Neutrophils/100 WBC (Bld) 68.3 % . [facility] No Panel InformationOrdered By: Peter Ahumada on 10-31-2022 Estimated GFR (CKD-EPI) > 60.0 mL/Min [facility] Creatinine Clearance (Chem N/A [facility] Nucleated erythrocytes [Pres ence] in Blood by Automated countOrdered By: Peter Ahumada on 10-31-2022 Nucleated RBC Auto Ql (Bld) 0.1 /100{WBC} 0-0.5 [facility] Platelet mean volume Auto (B ld) [Entitic vol]Ordered By: Peter Ahumada on 10-31-2022 Platelet mean volume (Bld) [Entitic vol] 8.8 fL 6.3-10.7 [facility] Platelets Auto (Bld) [#/Vol] Ordered By: Peter Ahumada on 10-31-2022 Platelets (Bld) [#/Vol] 305 10*3/uL 150-450 [facility] Potassium [Moles/volume] in Serum or PlasmaOrdered By: Peter Ahumada on 10-31-2022 Potassium [Moles/Vol] 4.2 mmol/L 3.5-5.1 [facility] Protein [Mass/volume] in Ser um or PlasmaOrdered By: Peter Ahumada on 10-31-2022 Protein [Mass/Vol] 6.6 g/dL 6.4-8.9 [facility] RBC Auto (Bld) [#/Vol]Ordere d By: Peter Ahumada on 10-31-2022 RBC (Bld) [#/Vol] 4.44 10*6/uL 3.60-5.00 [facility] Serum or plasma albumin/glob ulin mass ratioOrdered By: Peter Ahumada on 10-31-2022 Albumin/Globulin [Mass ratio] 1.4 {ratio} [facility] Serum or plasma anion gap de terminationOrdered By: Peter Ahumada on 10-31-2022 Anion gap [Moles/Vol] 11.4 mmol/L 6.0-15.0 [facility] Serum or plasma high density lipoprotein (HDL) cholesterol measurementOrdered By: Peter Ahumada on 10-31-2022 Cholesterol in HDL [Mass/Vol] 53 mg/dL 35-85 [facility] Comment on above: HDL CHOL ATP-III CLA SSIFICATION Cardiovascular RiskHDL > or equal to 60 mg/dL LOWHDL < 40 mg/dL HIGH Serum or plasma total choles terol/high density lipoprotein (HDL) cholesterol mass ratOrdered By: Peter Ahumada on 10-31-2022 Cholesterol.total/Chol esterol in HDL [Mass ratio] 2.9 {ratio} <5.0 [facility] Sodium [Moles/volume] in Ser um or PlasmaOrdered By: Peter Ahumada on 10-31-2022 Sodium [Moles/Vol] 139 mmol/L 136-145 [facility] Thyrotropin [Units/volume] i n Serum or PlasmaOrdered By: Peter Ahumada on 10-31-2022 TSH Qn 0.61 m[IU]/L 0.45-5.33 [facility] Thyroxine (T4) free [Mass/vo lume] in Serum or PlasmaOrdered By: Peter Ahumada on 10-31-2022 Free T4 [Mass/Vol] 0.76 ng/dL 0.61-1.12 [facility] Triglyceride [Mass/volume] i n Serum or PlasmaOrdered By: Peter Ahumada on 10-31-2022 Triglyceride [Mass/Vol] 125 mg/dL 0-149 [facility] Comment on above: TRIG ATP III CLASSIF ICATIONTRIG less than 150 mg/dL NormalTRIG 150-199 mg/dL Borderline highTRIG 200-500 mg/dL High TRIG greater than 500 mg/dL Very highStandard traceable to the Center for Disease Conrtrol and Prevention (CDC) test method. Urea nitrogen [Mass/volume] in Serum or PlasmaOrdered By: Peter Ahumada on 10-31-2022 Urea nitrogen [Mass/Vol] 6 mg/dL 7-25 [facility] WBC Auto (Bld) [#/Vol]Ordere d By: Peter Ahumada on 10-31-2022 WBC (Bld) [#/Vol] 8.2 10*3/uL 3.8-11.6 [facility] Albumin [Mass/volume] in Ser um or PlasmaOrdered By: Peter Ahumada on 04-19-2022 Albumin [Mass/Vol] 3.2 g/dL 3.2-5.5 [facility] Basophils Auto (Bld) [#/Vol] Ordered By: Peter Ahumada on 04-19-2022 Basophils (Bld) [#/Vol] 0.0 10*3/uL 0.0-0.2 [facility] Basophils/100 WBC Auto (Bld) Ordered By: Peter Ahumada on 04-19-2022 Basophils/100 WBC (Bld) 0.7 % . [facility] Blood hemoglobin measurement (mass/volume)Ordered By: Peter Ahumada on 04-19-2022 Hemoglobin (Bld) [Mass/Vol] 12.3 g/dL 11.8-15.4 [facility] Blood leukocytes automated c ount (number/volume)Ordered By: Peter Ahumada on 04-19-2022 WBC (Bld) [#/Vol] 5.9 10*3/uL 4.5-11.0 [facility] Cholesterol [Mass/volume] in Serum or PlasmaOrdered By: Peter Ahumada on 04-19-2022 Cholesterol [Mass/Vol] 159 mg/dL 140-200 [facility] Comment on above: Chol less than 200 m g/dl low riskChol 201-239 mg/dl borderline riskChol 240 mg/dl and greater high risk Cholesterol in LDL Calc [Mas s/Vol]Ordered By: Peter Ahumada on 04-19-2022 Cholesterol in LDL [Mass/Vol] 84 mg/dL 0-100 [facility] Comment on above: LDL ATP III CLASSIFI CATIONLDL less than 100 mg/dL OptimalLDL 100-129 mg/dL Near or above optimalLDL 130-159 mg/dL Borderline highLDL 160-189 mg/dL HighLDL greater than 189 mg/dL Very high Cholesterol in VLDL Calc [Ma ss/Vol]Ordered By: Peter Ahumada on 04-19-2022 Cholesterol in VLDL [Mass/Vol] 22 mg/dL [facility] Creatinine and Glomerular fi ltration rate.predicted panel (S/P/Bld)Ordered By: Peter Ahumada on 04-19-2022 Creatinine [Mass/Vol] 0.58 mg/dL 0.44-1.03 [facility] Eosinophils Auto (Bld) [#/Vo l]Ordered By: Peter Ahumada on 04-19-2022 Eosinophils (Bld) [#/Vol] 0.1 10*3/uL 0.0-0.45 [facility] Eosinophils/100 WBC Auto (Bl d)Ordered By: Peter Ahumada on 04-19-2022 Eosinophils/100 WBC (Bld) 2.4 % . [facility] Erythrocyte distribution wid th Auto (RBC) [Ratio]Ordered By: Peter Ahumada on 04-19-2022 Erythrocyte distribution width (RBC) [Ratio] 13.4 % 11.9-15.3 [facility] Estimated glomerular filtrat ion rate (GFR) non- AmericanOrdered By: Peter Ahumada on 04-19-2022 GFR/1.73 sq M.predicted among non-blacks MDRD (S/P/Bld) [Vol rate/Area] > 60 mL/Min [facility] Globulin Calc (S) [Mass/Vol] Ordered By: Peter Ahumada on 04-19-2022 Globulin (S) [Mass/Vol] 3.1 g/dL [facility] Hematocrit Auto (Bld) [Volum e fraction]Ordered By: Peter Ahumada on 04-19-2022 Hematocrit (Bld) [Volume fraction] 37.1 % 34.0-46.4 [facility] Laboratory - Hematology and Cell countsOrdered By: Peter Ahumada on 04-19-2022 Nucleated RBC/100 WBC (Bld) [Ratio] 0.1 % 0-0.5 [facility] Lymphocytes Auto (Bld) [#/Vo l]Ordered By: Peter Ahumada on 04-19-2022 Lymphocytes (Bld) [#/Vol] 1.7 10*3/uL 1.00-4.8 [facility] Lymphocytes/100 WBC Auto (Bl d)Ordered By: Peter Ahumada on 04-19-2022 Lymphocytes/100 WBC (Bld) 28.8 % . [facility] MCH Auto (RBC) [Entitic mass ]Ordered By: Peter Ahumada on 04-19-2022 MCH (RBC) [Entitic mass] 27.8 pg 24.7-34.3 [facility] MCHC Auto (RBC) [Mass/Vol]Or dered By: Peter Ahumada on 04-19-2022 MCHC (RBC) [Mass/Vol] 33.2 g/dL 32.0-35.0 [facility] MCV Auto (RBC) [Entitic vol] Ordered By: Peter Ahumada on 04-19-2022 MCV (RBC) [Entitic vol] 83.6 fL 80-100 [facility] Monocytes Auto (Bld) [#/Vol] Ordered By: Peter Ahumada on 04-19-2022 Monocytes (Bld) [#/Vol] 0.4 10*3/uL 0.0-0.8 [facility] Monocytes/100 WBC Auto (Bld) Ordered By: Peter Ahumada on 04-19-2022 Monocytes/100 WBC (Bld) 6.6 % . [facility] Neutrophils Auto (Bld) [#/Vo l]Ordered By: Peter Ahumada on 04-19-2022 Neutrophils (Bld) [#/Vol] 3.6 10*3/uL 1.8-7.7 [facility] Neutrophils/100 WBC Auto (Bl d)Ordered By: Peter Ahumada on 04-19-2022 Neutrophils/100 WBC (Bld) 61.5 % . [facility] No Panel InformationOrdered By: Peter Ahumada on 04-19-2022 Estimated GFR () > 60 mL/Min [facility] Comment on above: GFR estimated refere nce range: According to KDOQI guidelines, <60 ml/min/1.73m2 is sufficient to diagnose a patient with chronic kidney disease. Pharmacy Creatinine Clearance (Chem N/A [facility] Platelet mean volume Auto (B ld) [Entitic vol]Ordered By: Peter Ahumada on 04-19-2022 Platelet mean volume (Bld) [Entitic vol] 8.9 fL 6.3-10.7 [facility] Platelets Auto (Bld) [#/Vol] Ordered By: Peter Ahumada on 04-19-2022 Platelets (Bld) [#/Vol] 319 10*3/uL 150-450 [facility] Protein [Mass/volume] in Ser um or PlasmaOrdered By: Peter Ahumada on 04-19-2022 Protein [Mass/Vol] 6.3 g/dL 6.1-7.9 [facility] RBC Auto (Bld) [#/Vol]Ordere d By: Peter Ahumada on 04-19-2022 RBC (Bld) [#/Vol] 4.43 10*6/uL 3.60-5.00 [facility] Serum or plasma alanine ny otransferase measurement without P-5'-P (enzymatic activiOrdered By: Peter Ahumada on 04-19-2022 ALT No additional P-5'-P [Catalytic activity/Vol] 9 U/L 10-60 [facility] Serum or plasma albumin/glob ulin mass ratioOrdered By: Peter Ahumada on 04-19-2022 Albumin/Globulin [Mass ratio] 1.0 {ratio} [facility] Serum or plasma alkaline deirdre sphatase measurement (enzymatic activity/volume)Ordered By: Peter Ahumada on 04-19-2022 ALP [Catalytic activity/Vol] 41 U/L 32-92 [facility] Serum or plasma anion gap de terminationOrdered By: Peter Ahumada on 04-19-2022 Anion gap [Moles/Vol] 13.9 mmol/L 6.0-15.0 [facility] Serum or plasma aspartate am inotransferase measurement (enzymatic activity/volume)Ordered By: Peter Ahumada on 04-19-2022 AST [Catalytic activity/Vol] 15 U/L 10-42 [facility] Serum or plasma calcium scotty urement (mass/volume)Ordered By: Peter Ahumada on 04-19-2022 Calcium [Mass/Vol] 8.8 mg/dL 8.2-10.2 [facility] Serum or plasma chloride francoise surement (moles/volume)Ordered By: Peter Ahumada on 04-19-2022 Chloride [Moles/Vol] 100 mmol/L 95-114 [facility] Serum or plasma glucose scotty urement (mass/volume)Ordered By: Peter Ahumada on 04-19-2022 Glucose [Mass/Vol] 87 mg/dL 70-100 [facility] Comment on above: ADA recommended refe rence rangeRandom Glucose Reference Range is dependent on time and content of last meal. Glucose of more than 200 mg/dL in a nonstressed, ambulatory subject supports the diagnosis of Diabetes Mellitus. Serum or plasma high density lipoprotein (HDL) cholesterol measurementOrdered By: Peter Ahumada on 04-19-2022 Cholesterol in HDL [Mass/Vol] 53 mg/dL 35-85 [facility] Comment on above: HDL CHOL ATP-III CLA SSIFICATION Cardiovascular RiskHDL > or equal to 60 mg/dL LOWHDL < 40 mg/dL HIGH Serum or plasma potassium me asurement (moles/volume)Ordered By: Peter Ahumada on 04-19-2022 Potassium [Moles/Vol] 3.9 mmol/L 3.5-5.1 [facility] Serum or plasma sodium measu rement (moles/volume)Ordered By: Peter Ahumada on 04-19-2022 Sodium [Moles/Vol] 136 mmol/L 136-146 [facility] Serum or plasma total biliru bin measurement (mass/volume)Ordered By: Peter Ahumada on 04-19-2022 Bilirubin [Mass/Vol] 0.4 mg/dL 0.3-1.2 [facility] Serum or plasma total carbon dioxide measurement (moles/volume)Ordered By: Peter Ahumada on 04-19-2022 CO2 [Moles/Vol] 26.0 mmol/L 22.0-30.0 [facility] Serum or plasma total choles terol/high density lipoprotein (HDL) cholesterol mass ratOrdered By: Peter Ahumada on 04-19-2022 Cholesterol.total/Chol esterol in HDL [Mass ratio] 3.0 {ratio} <5.0 [facility] Serum or plasma urea nitroge n measurement (mass/volume)Ordered By: Peter Ahumada on 04-19-2022 Urea nitrogen [Mass/Vol] 5 mg/dL 9-23 [facility] TSH DL <= 0.005 mIU/L QnOrde red By: Peter Ahumada on 04-19-2022 TSH Qn 1.94 m[IU]/L 0.45-5.33 [facility] Thyroxine (T4) free [Mass/vo lume] in Serum or PlasmaOrdered By: Peter Ahumada on 04-19-2022 Free T4 [Mass/Vol] 0.69 ng/dL 0.61-1.12 [facility] Triglyceride [Mass/volume] i n Serum or PlasmaOrdered By: Peter Ahumada on 04-19-2022 Triglyceride [Mass/Vol] 111 mg/dL 35-149 [facility] Comment on above: TRIG ATP III CLASSIF ICATIONTRIG less than 150 mg/dL NormalTRIG 150-199 mg/dL Borderline highTRIG 200-500 mg/dL High TRIG greater than 500 mg/dL Very highStandard traceable to the Center for Disease Conrtrol and Prevention (CDC) test method. CNOVon 10-13-2021 CNOV Office Visit ([id number] ) -------- DARLING KHANNA ([id number]) 1980 F Date Time Provider Department 10/13/21 1:30 PM KATE DANIEL [id number] During your visit today, we recorded the following information about you: Temperature Pulse Blood pressure Weight 97.7 degrees 68/minute 112/55 115.2 kg Height 1.829 m Kate Daniel MD 10/17/2021 1:50 PM Signed Assessment ESTABLISHED PATIENT Darling Khanna is a 40 year old female with a right posterior liver subcapsular fluid collection ? 03/03/2021: Patient presented to [facility] on 02/08/2021 for 2 days for acute ride sided abdominal/flank pain, right shoulder discomfort and nausea. She was diagnosed with Klebsiella pneumoniae UTI and was discharged with oral keflex and zofran. Patient represented to ER on 02/09/2021 for the continued complaints of pain. ? Referral From:?PCP- Peter Ahumada, DO Reason:?right abdominal pain pain; liver?fluid collection? ? Received Records From:? 02/08/2021 ER Report [facility] 02/09/2021 ER Report [facility] 02/15/2021 PCP Office note ? Visited ER 4 times in the past month?with right sided?10/10?abdominal pain that used to radiating to the right shoulder and arm. ?She now has left sided arm pain. Pain will not resolve until she gets pain medicine.?No correlation with greasy/fatty food intake or other known triggers. Told she has fatty liver and liver lesion.?Diagnosed with pyelonephritis, completed course of antibiotics;?denies current?back pain, dysuria.?Overall, she feels this is gradually improving. US of ovaries yesterday at [facility]. Scheduled for upper GI at end of month. Gained?50 pounds since July?(was in [place] for 3 months, drank a lot); diagnosed with Hypothyroidism, taking Levothyroxine 75?mcg. Pt with history of diuretic use, stopped taking it, got?increase lower extremity edema. Restarted diuretic,?edema improved. However, her physician recommended she stop taking diuretic. ? 03/22/2021 [facility] Conference Final Consensus Recommendation(s): -?No clear etiology of right posterior subcapsular fluid collection - Fluid consistency is not consistent with a hematoma - No underlying masses or intrinsic liver pathology ? 04/07/2021: Pain is improved significantly since her last appointment. Additionally the radiation to her shoulders has also resolved. Still has some tenderness but is back at work and feeling okay about it. PAST MEDICAL HISTORY Diagnosis Date - Asthma - Pyelonephritis - UTI (urinary tract infection) PAST SURGICAL HISTORY Procedure Laterality Date - BX OF BREAST; INCISIONAL 2018 - PAST SURGICAL HISTORY OF jaw surgery for underbite - PAST SURGICAL HISTORY OF hernia repair PHYSICAL EXAMINATION: BP 112/55 (BP Site: Left Arm, BP Position: Sitting, BP Cuff Size: Large Adult) Pulse 68 Temp 36.5 ?C (97.7 ?F) Ht 182.9 cm (6') Wt 115.2 kg (254 lb) SpO2 97% BMI 34.45 kg/m? General Appearance: Well appearing, alert, in no acute distress, well-hydrated, well nourished.. Skin: Skin color, texture, turgor normal, no suspicious rashes or lesions. Abdomen: Normal abdominal exam, Abdomen soft, non-tender. Bowel sounds normal. No masses, organomegaly. IMPRESSION: Right upper quadrant tenderness PLAN: Overall appetite is doing well. She did spend 3 months in [place] and did not have any issues, hospitalizations or other problems. She is here today for routine visit but just complains of tenderness when she pushes on the right side. No pain otherwise. No right upper quadrant pain or tenderness. On examination the tenderness appears to be in the area of her right lateral chest wall. It is mild. She will see me back as needed. I spent a total of 20 minutes on the date of the service which included preparing to see the patient, [id number] patient care and completing clinical documentation. MD Jayne Garrido Ma 10/13/2021 1:33 PM Signed What is the reason for your visit today? Follow up Who is your referring physician? Are you having poor oral intake? NO Have you had unintentional weight loss of 15 lbs/7 Kg in the last 3-6 months? NO Bowels: regular Wound: Temperature: No Drains: No Referring Provider: KATE DANIEL [[id number]] Allergies As of Date: 10/13/2021 Noted Allergy Reaction INDOMETHACIN 05/10/2018 7 - Swelling Date Reviewed: 10/13/2021 Reviewed by: Jayne Aguila Ma - Fully Assessed Reason for Visit: Established Patient [175] Primary Visit Diagnosis:Liver pain [R10.10] Prescriptions as of 10/17/2021 - omeprazole (PRILOSEC) 40 mg capsule TAKE 1 CAPSULE BY MOUTH EVERY DAY 30 MINUTES BEFORE MORNING MEAL - MARY LOU 0.25-35 mg-mcg per tablet Take 1 tablet by mouth once daily. - levothyroxine (SYNTHROID) 75 mcg tablet Take 75 mcg by mouth once daily. Meds Comments as of 05/10 (more content not included)... Normal [facility] Mayela 09-30-2021 TASHAN Telephone ([id number]) -------- DARLING KHANNA ([id number]) 1980 F Date Time Provider Department 09/30/21 KATE DANIEL [id number] During your visit today, we recorded the following information about you: Sujatha Tomas 09/30/2021 9:00 AM Signed Called patient to reschedule her 10/13 in person to virtual. She would like to keep in person. She also wants to know if a CT or MRI can be ordered of her pancreas abdomen as she hasn't had anything done recently. She can be reached at [phone]. Talat Armendariz RN 10/10/2021 11:29 AM Signed MD Ace Garrido 10 days ago I will see her first Message text You Kate Daniel MD 10 days ago review and advise last seen 03/2021`for liver subcapsular fluid collection last CT 02/2021 Routing comment Allergies As of Date: 09/30/2021 Noted Allergy Reaction INDOMETHACIN 05/10/2018 7 - Swelling Date Reviewed: 04/07/2021 Reviewed by: Jayne Aguila Ma - Fully Assessed Reason for Visit: Future Appointment [256] Primary Visit Diagnosis:Liver mass, right lobe [R16.0] Other Visit Diagnosis:Liver pain [R10.10] Prescriptions as of 10/10/2021 - omeprazole (PRILOSEC) 40 mg capsule TAKE 1 CAPSULE BY MOUTH EVERY DAY 30 MINUTES BEFORE MORNING MEAL - MARY LOU 0.25-35 mg-mcg per tablet Take 1 tablet by mouth once daily. - levothyroxine (SYNTHROID) 75 mcg tablet Take 75 mcg by mouth once daily. Meds Comments as of 05/10/2018: Problem List As Of Date 09/30/2021 Noted Resolved Chronic pain of right knee [M25.561, G89.29] 11/12/2017 Pain in right foot [M79.671] 11/26/2017 Encounter Status:Closed by TALAT ARMENDARIZ RN on 3/21/22 [facility] 04-07-2021 CNOV Office Visit ([id number] ) -------- DARLING KHANNA ([id number]) 1980 F Date Time Provider Department 04/07/21 2:30 PM KATE DANIEL [id number] During your visit today, we recorded the following information about you: Temperature Pulse Blood pressure Weight 97.5 degrees 95/minute 136/77 109.3 kg Height 1.829 m Jayne Mingo Reza 04/07/2021 2:31 PM Signed What is the reason for your visit today? Follow up Who is your referring physician? Are you having poor oral intake? NO Have you had unintentional weight loss of 15 lbs/7 Kg in the last 3-6 months? NO Bowels: regular Wound: Temperature: No Drains: No Kate Daniel MD 04/11/2021 3:19 PM Signed Assessment ESTABLISHED PATIENT Darling Khanna is a 40 year old female with a right posterior liver subcapsular fluid collection 03/03/2021: Patient presented to [facility] on 02/08/2021 for 2 days for acute ride sided abdominal/flank pain, right shoulder discomfort and nausea. She was diagnosed with Klebsiella pneumoniae UTI and was discharged with oral keflex and zofran. Patient represented to ER on 02/09/2021 for the continued complaints of pain. ? Referral From:?PCP- Peter Ahumada, DO Reason:?right abdominal pain pain; liver?fluid collection? ? Received Records From:? 02/08/2021 ER Report [facility] 02/09/2021 ER Report [facility] 02/15/2021 PCP Office note ? Visited ER 4 times in the past month with right sided 10/10 abdominal pain that used to radiating to the right shoulder and arm. She now has left sided arm pain. Pain will not resolve until she gets pain medicine. No correlation with greasy/fatty food intake or other known triggers. Told she has fatty liver and liver lesion. Diagnosed with pyelonephritis, completed course of antibiotics; denies current back pain, dysuria. Overall, she feels this is gradually improving. US of ovaries yesterday at [facility]. Scheduled for upper GI at end of month. Gained 50 pounds since July (was in [place] for 3 months, drank a lot); diagnosed with Hypothyroidism, taking Levothyroxine 75 mcg. Pt with history of diuretic use, stopped taking it, got increase lower extremity edema. Restarted diuretic, edema improved. However, her physician recommended she stop taking diuretic. 03/22/2021 [facility] Conference Final Consensus Recommendation(s): - No clear etiology of right posterior subcapsular fluid collection - Fluid consistency is not consistent with a hematoma - No underlying masses or intrinsic liver pathology 04/07/2021: Pain is improved significantly since her last appointment. Additionally the radiation to her shoulders has also resolved. Still has some tenderness but is back at work and feeling okay about it. PAST MEDICAL HISTORY Diagnosis Date - Asthma - Pyelonephritis - UTI (urinary tract infection) PAST SURGICAL HISTORY Procedure Laterality Date - BX OF BREAST; INCISIONAL 2017 - PAST SURGICAL HISTORY OF jaw surgery for underbite - PAST SURGICAL HISTORY OF hernia repair PHYSICAL EXAMINATION: BP 136/77 (BP Site: Right Arm, BP Position: Sitting, BP Cuff Size: Regular Adult) Pulse 95 Temp 36.4 ?C (97.5 ?F) Ht 182.9 cm (6') Wt 109.3 kg (241 lb) SpO2 95% BMI 32.69 kg/m? General appearance: Well appearing, alert, in no acute distress, well-hydrated, well nourished. Abdomen: Soft nontender nondistended IMPRESSION: Subcapsular fluid collection PLAN: Patient is doing well from a clinical standpoint. Continue present care. Follow-up in 3 to 6-month. I spent a total of 10 minutes on the date of the service which included preparing to see the patient, [id number] patient care and completing clinical documentation. Kate Daniel MD Referring Provider: KATE DANIEL [[id number]] Allergies As of Date: 04/07/2021 Noted Allergy Reaction INDOMETHACIN 05/10/2018 7 - Swelling Date Reviewed: 04/07/2021 Reviewed by: Jayne Aguila Ma - Fully Assessed Reason for Visit: Established Patient [175] Primary Visit Diagnosis:Liver pain [R10.10] Prescriptions as of 04/11/2021 - omeprazole (PRILOSEC) 40 mg capsule TAKE 1 CAPSULE BY MOUTH EVERY DAY 30 MINUTES BEFORE MORNING MEAL - MARY LOU 0.25-35 mg-mcg per tablet Take 1 tablet by mouth once daily. - levothyroxine (SYNTHROID) 75 mcg tablet Take 75 mcg by mouth once daily. Meds Comments as of 05/10/2018: Problem List As Of Date 04/07/2021 Noted Resolved Chronic pain of right knee [M25.561, G89.29] 11/12/2017 Pain in right foot [M79.671] 11/26/2017 Visit Notes: >> Jayne Aguila Juaquin Alexia Apr 07, 2021 2:28 PM Status: Signed What is the reason for your visit today? Follow up Who is your referring physician? Are you having poor oral intake? NO Have you had unintentional weight loss of 15 lbs/7 Kg in the last 3-6 months? NO Bowels: regular Wound: Temperature: No (more content not included)... Normal [facility] CNTRTMon 03-22-2021 CNTRTM Treatment Team (ANSHUL LA) -------- DARLING KHANNA ([id number]) 1980 F Date Time Provider Department 03/22/21 WILLIAM DE LEÓN During your visit today, we recorded the following information about you: William De León MD 03/23/2021 7:25 AM Signed Multidisciplinary Hepatopancreatobiliary AND Upper GI Case Conference -- Consensus Note -- Conference Date: 03/22/2021 Case reviewed with physicians from GI, Surgery, AND Radiology services: -- Surgeons - Lexii Oconnell Augustin -- Gastroenterologists - Baldev Antonio -- Radiologist - Radha Issue(s) Question(s): - 40 y/o female with spontaneous development of right flank and right upper abdominal pain in January 2021 - Serial imaging demonstrated development of a right posterior liver capsular fluid collection of unclear etiology - Any evidence to suggest a subcapsular hematoma, underlying mass, or other imaging findings to suggest etiology Pre-conference plan (from [employer]): - Observation and serial imaging Imaging Review: - January 2021 - CT Abd/Pelvis and MRI Final Consensus Recommendation(s): - No clear etiology of right posterior subcapsular fluid collection - Fluid consistency is not consistent with a hematoma - No underlying masses or intrinsic liver pathology Final recommendation(s) differ from pre-conference plan? (Y/N) - No William De León MD [facility] Surgical Fellow Allergies As of Date: 03/22/2021 Noted Allergy Reaction INDOMETHACIN 05/10/2018 7 - Swelling Date Reviewed: 03/03/2021 Reviewed by: Jayne Aguila Ma - Fully Assessed Prescriptions as of 03/23/2021 - omeprazole (PRILOSEC) 40 mg capsule TAKE 1 CAPSULE BY MOUTH EVERY DAY 30 MINUTES BEFORE MORNING MEAL - MARY LOU 0.25-35 mg-mcg per tablet Take 1 tablet by mouth once daily. - levothyroxine (SYNTHROID) 75 mcg tablet Take 75 mcg by mouth once daily. Meds Comments as of 05/10/2018: BC Problem List As Of Date 03/22/2021 Noted Resolved Chronic pain of right knee [M25.561, G89.29] 11/12/2017 Pain in right foot [M79.671] 11/26/2017 Encounter Status:Closed by WILLIAM DE LEÓN on 03/23/21 [facility] CNOVon 03-03-2021 CNOV Office Visit ([id number] ) -------- DARLING KHANNA ([id number]) 1980 F Date Time Provider Department 03/03/21 10:00 AM KATE DANIEL [id number] During your visit today, we recorded the following information about you: Temperature Pulse Blood pressure Weight 98.3 degrees 82/minute 128/85 112 kg Height 1.829 m Jayne Aguila Ma 03/03/2021 10:03 AM Signed What is the reason for your visit today? Consult Who is your referring physician? Are you having poor oral intake? NO Have you had unintentional weight loss of 15 lbs/7 Kg in the last 3-6 months? NO Bowels: diarrhea Wound: none Temperature: No Drains: No Note: Patient states shortness of breathe at times Kate Daniel MD 03/07/2021 7:33 PM Signed Assessment NEW LIVER CONSULT PATIENT NAME: Darling Khanna REASON FOR CONSULT: Abdominal pain with radiation to right and left shoulder REQUESTING PHYSICIAN: Dr. Ahumada DATE of SERVICE: 03/02/2021 TIME of SERVICE: 9:09 AM PCP: Peter Ahumada DO Chief Complaint: Liver mass, abdominal pain HPI: Darling Khanna is a 40 year old female Patient presented to [facility] on 02/08/2021 for 2 days for acute ride sided abdominal/flank pain, right shoulder discomfort and nausea. She was diagnosed with Klebsiella pneumoniae UTI and was discharged with oral keflex and zofran. Patient represented to ER on 02/09/2021 for the continued complaints of pain. ? Referral From: PCP- Peter Ahumada DO Reason: right abdominal pain pain; liver fluid collection ? Received Records From: 02/08/2021 ER Report [facility] 02/09/2021 ER Report [facility] 02/15/2021 PCP Office note Visited ER 4 times in the past month with right sided 10/10 abdominal pain that used to radiating to the right shoulder and arm. She now has left sided arm pain. Pain will not resolve until she gets pain medicine. No correlation with greasy/fatty food intake or other known triggers. Told she has fatty liver and liver lesion. Diagnosed with pyelonephritis, completed course of antibiotics; denies current back pain, dysuria. Overall, she feels this is gradually improving. US of ovaries yesterday at [facility]. Scheduled for upper GI at end of month. Gained 50 pounds since July (was in [place] for 3 months, drank a lot); diagnosed with Hypothyroidism, taking Levothyroxine 75 mcg. Pt with history of diuretic use, stopped taking it, got increase lower extremity edema. Restarted diuretic, edema improved. However, her physician recommended she stop taking diuretic. History of: Abdominal pain:Yes Nausea/Vomitting:No - only once, after taking Dilaudid Hematemesis: No Bleeding per rectum:No Loss of appetite:No Diarrhea:Yes - intermittent, 4-5 times weekly Jaundice:No Pruritis:No Pale colored stools: Yes H/O Cholangitis:No Anemia: No Weight loss:No H/O inflammatory bowel disease:No H/O primary sclerosing cholangitis:No H/O blood transfusion or trauma: No H/O IVDU :No H/O Hepatitis:No H/O Cirrhosis:No Family history of pancreas/liver/biliary cancer:No PSHx: Breasts cysts removed ( 1 was good, 1 was bad, pt does not think it was malignant. Seen by Dr. Haines on [facility], in [facility]; denies chemotherapy or radiation. Hernia repair Social Hx: Denies tobacco use, quit smoking in 2005, 1 pack a week, can't remember how long Alcohol 1-2 drinks per week, but stopped since February 08 Illicit drug use: Denies Family Hx: Denies history of liver/biliary disease, or cancer PAST MEDICAL HISTORY: PAST MEDICAL HISTORY Diagnosis Date - Asthma - Pyelonephritis - UTI (urinary tract infection) PAST SURGICAL HISTORY: PAST SURGICAL HISTORY Procedure Laterality Date - BX OF BREAST; INCISIONAL 2018 - PAST SURGICAL HISTORY OF jaw surgery for underbite - PAST SURGICAL HISTORY OF hernia repair FAMILY HISTORY: No family history on file. SOCIAL HISTORY: Social History Tobacco Use - Smoking status: Former Smoker Quit date: 2005 Years since quittin.6 - Smokeless tobacco: Never Used - Tobacco comment: Smoked 1 pack a week, quit in 2005, can't remember start date Substance Use Topics - Alcohol use: Yes Comment: occ - Drug use: Never COMPLETE REVIEW OF SYSTEMS Constitutional--Negative for fevers, chills, fatigue. unintentional weight loss. Has gained 50 pounds since July. Cardiovascular--Negative for orthopnea, PND Gastrointestinal--See HPI Pulmonary--Positive intermittent dyspnea couple times a week (this increased recently) history of asthma, negative for cough or hemoptysis : No history of dysuria, frequency or incontinence A 10 point review of systems was otherwise negative PHYSICAL EXAMINATION: BP 128/85 (BP Site: Right Arm, BP Position: Sitting, BP Cuff Size: Large Adult) Pulse 82 Temp 36.8 ?C (98.3 ?F) Ht 182.9 cm (6') (more content not included)... Normal [facility] CNPNon 02-23-2021 CNPN Telephone ([facility]) -------- DARLING KHANNA ([id number]) 1980 F Date Time Provider Department 02/23/21 KATE DANIEL [facility] During your visit today, we recorded the following information about you: Talat Armendariz RN 02/23/2021 10:02 AM Addendum Hepatobiliary Surgery Consult HPI: Patient presented to [facility] on 02/08/2021 for 2 days for acute ride sided abdominal/flank pain, right shoulder discomfort and nausea. She was diagnosed with Klebsiella pneumoniae UTI and was discharged with oral keflex and zofran. Patient represented to ER on 02/09/2021 for the continued complaints of pain. Referral From: PCP- Peter Ahumada DO Reason: right abdominal pain pain; liver fluid collection Received Records From: 02/08/2021 ER Report [facility] 02/09/2021 ER Report [facility] 02/15/2021 PCP Office note Records Review BMI 33 Current OCP Imagin02/08/2021 CT A/P wo IVCON (Report [facility]- report rec'd) - minor basilar atelectasis or scarring - nonspecific lymph nodes - tiny umbilical hernia containing fat - no intra hepatic masses are noted - no bowel or urinary tract obstructions - no acute findings 02/08/2021 Ultrasound RUQ ([facility]- report rec'd) - unremarkable - no evidence of gallstones, gallbladder wall thickening, or ductal dilation 02/15/2021 CT A/P w IVCON (Report [facility]- report rec'd) - no acute abdominal or pelvis abnormality - indeterminate liver lesion: ill defined low attenuation lesion measuring at least 2.5cm in the medial segment of the left lobe of the liver posteriorly 02/17/2021 MRI Abdomen w/wo IVCON (Report [facility]- report rec'd) - unremarkable size of liver without biliary dilation or abnormal contrast enhancement - the area of focal hypodensity within the posterior aspect of the medial segment of the left lobe of the liver on CT examination shows no discrete focal abnormality - there is possibility of focal fatty infiltration to the posterior aspect of the left lobe of the liver - recommend follow up CT of abdomen with contrast in 6 months 02/22/2021 CT A/P w IVCON (Report [facility]- report rec'd) - 62mm x 20mm lenticular shape right posterior hepatic, probably subcapsular fluid collection of the liver. Targeted sonogram for any complex internal contents. - mild hepatic steatosis Labs: LFTs - normal PAST MEDICAL HISTORY: PAST MEDICAL HISTORY Diagnosis Date - Asthma - Pyelonephritis - UTI (urinary tract infection) PAST SURGICAL HISTORY: PAST SURGICAL HISTORY Procedure Laterality Date - BX OF BREAST; INCISIONAL 2018 - PAST SURGICAL HISTORY OF jaw surgery for underbite - PAST SURGICAL HISTORY OF hernia repair FAMILY HISTORY: No family history on file. SOCIAL HISTORY: Social History Tobacco Use - Smoking status: Never Smoker Substance Use Topics - Alcohol use: Not on file - Drug use: Not on file Sujatha Tomas 02/24/2021 8:26 AM Signed Patient's records scanned into [facility] and imaging downloaded from [facility], please review. Tatyana Kilgore Pss 02/25/2021 9:53 AM Signed Scheduled patient for new consult on 03/03/2021. 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 Reason for Visit: Tick Eradicator - Other [[id number]] Consult [173] Prescriptions as of 02/25/2021 - omeprazole (PRILOSEC) 40 mg capsule TAKE 1 CAPSULE BY MOUTH EVERY DAY 30 MINUTES BEFORE MORNING MEAL - MARY LOU 0.25-35 mg-mcg per tablet Take 1 tablet by mouth once daily. - levothyroxine (SYNTHROID) 75 mcg tablet Take 75 mcg by mouth once daily. Meds Comments as of 05/10/2018: Problem List As Of Date 02/23/2021 Noted Resolved Chronic pain of right knee [M25.561, G89.29] 11/12/2017 Pain in right foot [M79.671] 11/26/2017 Encounter Status:Closed by TATYANA PEDRO on 02/25/21 Normal [facility] AMYLASEon 02-22-2021 Amylase [Catalytic activity/Vol] 48 U/L Normal 31-110 [facility] Comment on above: Performed By: #### L IPA, CMP, SHAI #### [facility] [address] [place], [place] [id number] Ruy Ayleen CBC AUTO DIFFon 02-22-2021 BASO # 0.1 103/ul Normal 0.0-0.1 [facility] Comment on above: Performed By: #### C BC #### [facility] [address] [place], [place] [id number] Ruy Ayleen Basophils/100 WBC (Bld) 0.7 % Normal 0.2-2.0 [facility] Comment on above: Performed By: #### C BC #### [facility] [address] [place], [place] [id number] Ruy Ayleen EO # 0.1 103/ul Normal 0.0-0.7 [facility] Comment on above: Performed By: #### C BC #### [facility] [address] [place], [place] [id number] Ruy Ayleen Eosinophils/100 WBC (Bld) 1.2 % Normal 0.9-7.0 [facility] Comment on above: Performed By: #### C BC #### [facility] [address] [place], [place] [id number] Ruy Ayleen Erythrocyte distribution width (RBC) [Ratio] 12.6 % Normal 11.0-15.0 [facility] Comment on above: Performed By: #### C BC #### [facility] [address] [place], [place] [id number] Ruy Ayleen Hematocrit (Bld) [Volume fraction] 38.7 % Normal 36.0-48.0 [facility] Comment on above: Performed By: #### C BC #### [facility] [address] [place] [address] Ruy Abbasi Hemoglobin (Bld) [Mass/Vol] 12.6 g/dL Normal 12.0-16.0 [facility] Comment on above: Performed By: #### C BC #### [facility] [address] [place] [address] Ruyradhames Abbasi IG # 0.02 10e3/ul Normal 0.00-0.03 [facility] Comment on above: Performed By: #### C BC #### [facility] [address] [place] [address] Ruy Abbasi IG % 0.2 % Normal 0.0-0.5 [facility] Comment on above: Performed By: #### C BC #### [facility] [address] [place] [address] Ruy Abbasi LYMPH # 2.4 103/ul Normal 1.2-3.8 [facility] Comment on above: Performed By: #### C BC #### [facility] [address] [place] [address] Ruy Abbasi Lymphocytes/100 WBC (Bld) 22.4 % Normal 20.5-60.0 [facility] Comment on above: Performed By: #### C BC #### [facility] [address] [place] [address] Ruy Abbasi MANUAL DIFF REQ NO Normal [facility] Comment on above: Performed By: #### C BC #### [facility] [address] [place], [place] [id number] Ruy Abbasi MCH (RBC) [Entitic mass] 27.7 pg Normal 26.7-34.0 [facility] Comment on above: Performed By: #### C BC #### [facility] [address] [place] [address] Ruy Abbasi MCHC (RBC) [Mass/Vol] 32.6 g/dL Normal 29.9-35.2 [facility] Comment on above: Performed By: #### C BC #### [facility] [address] [place], [place] [address] Ruy Abbasi MCV (RBC) [Entitic vol] 85.1 fL Normal 81.0-99.0 [facility] Comment on above: Performed By: #### C BC #### [facility] [address] [place] [id number] Ruy Abbasi MONO # 0.7 103/ul Normal 0.3-0.8 [facility] Comment on above: Performed By: #### C BC #### [facility] [address] [place] [id number] Ruy Abbasi Monocytes/100 WBC (Bld) 6.5 % Normal 1.7-12.0 [facility] Comment on above: Performed By: #### C BC #### [facility] [address] [place] [id number] Ruy Abbasi NEUT # 7.3 103/ul Critically high 1.4-6.5 [facility] Comment on above: Performed By: #### C BC #### [facility] [address] [id number] Ruy Abbasi Neutrophils/100 WBC (Bld) 69.0 % Normal 43.0-75.0 [facility] Comment on above: Performed By: #### C BC #### [facility] [address] [place] [id number] Ruy Abbasi Platelet mean volume (Bld) [Entitic vol] 9.3 fL Critically low 9.5-13.5 [facility] Comment on above: Performed By: #### C BC #### [facility] [address] [place] [id number] Ruyradhames Cardozoen PLT 324 103/ul Normal 150-450 [facility] Comment on above: Performed By: #### C BC #### [facility] [address] [id number] Ruyradhames Cardozoen RBC 4.55 106/ul Normal 4.20-5.40 [facility] Comment on above: Performed By: #### C BC #### [facility] [address] [place], [place] [address] Ruy Abbasi WBC 10.6 103/ul Normal 4.0-11.0 [facility] Comment on above: Performed By: #### C BC #### [facility] [address] [id number] [address] ABD/PELV W CONon 02-23-20 CT ABD/PELV W CON EXAMINATION: CT ABD/ PELV W CON HISTORY: ABDOMINAL DISTENSION (GASEOUS) acute right upper quadrant abdominal pain COMPARISON: None. TECHNIQUE: CT abdomen pelvis with 100 mL Omnipaque 300 IV contrast. Multiple axial views coronal and sagittal reformats. Dose reduction techniques were achieved by using automated exposure control and/or adjustment of mA and/or kV according to patient size and/or use of iterative reconstruction technique. FINDINGS: Visualized lung bases demonstrate mild bibasilar atelectasis. Visualized cardiac apex unremarkable. A 62 x 20 mm (CC, transverse) lenticular shape right posterior hepatic, probably subcapsular fluid collection of the liver. Targeted sonogram can further evaluate for any complex internal contents. Mild hepatic steatosis. Pancreas, adrenal glands, kidneys are unremarkable. No evidence for bowel obstruction, large ascites, or free air. Uterus and pelvic structures unremarkable. 2.5 cm left ovarian cystic structure. Urinary bladder unremarkable. Moderate amount stool throughout the large bowel to the rectum. Small fat-containing umbilical hernia without bowel protrusion. A dilated appendix not seen. No acute bony abnormality. IMPRESSION: A 62 x 20 mm (CC, transverse) lenticular shape right posterior peripheral hepatic, probably subcapsular fluid collection of the liver. Targeted sonogram can further evaluate for any complex internal contents. Correlate clinically for etiology. Mild hepatic steatosis. Electronically authenticated by: LUZ MARINA HERNANDEZ Date: 2021-02-22 03:10 Normal [facility] D-DIMERon 02-22-2021 D-DIMER 0.40 mg/L FEU Normal 0.19-0.50 [facility] Comment on above: Performed By: #### D DIM #### [facility] [address] [id number] Ruy Abbasi D-DIMER COMMENTS SEE BELOW Normal [facility] Comment on above: Result Comment: Incr eases in D-Dimer concentration observed with thromboembolic events can be variable due to localization, size, and age of the thrombus. Therefore, a thromboembolic event cannot be diagnosed with certainty on the basis of the reference range. D-Dimers may also be elevated for a variety of disorders including: advanced age, , coronary disease, cancer, liver disease, infection, inflammation, hematoma, DIC, trauma, post-surgery, diabetes, thrombolytic or anticoagulant therapy, stress, and generalized hospitalization. Performed By: #### D DIM #### [facility] [address] [place] [address] Ruy Abbasi LIPASEon 02-22-2021 Lipase [Catalytic activity/Vol] 120.0 U/L Normal 23.0-300.0 [facility] Comment on above: Performed By: #### L KARLI WEST, SHAI #### [facility] [facility] [address] [place], [place] [id number] Ruy Abbasi MONOon 02-22-2021 Monocytes (Bld) [#/Vol] Negative Normal NEGATIVE [facility] Comment on above: Performed By: #### M IGOR #### [facility] [address] [place], [place] [id number] Ruy Abbasi OT-CT ABD/PELVIS W CON IMPOR Ton 02-22-2021 OT-CT ABD/PELVIS W CON IMPORT Images were obtained outside of [facility] [id number] Normal [facility] OT-CT ABD/PELVIS W CON IMPORT Images were obtained outside of [facility] [id number] Normal [facility] PREG HCG QUALon 02-22-2021 , QUAL Negative Normal NEGATIVE [facility] Comment on above: Performed By: #### P REG #### [facility] [address] [place], [place] [id number] Ruy Abbasi PROF 14(COMP METB)on 021 Albumin [Mass/Vol] 3.2 g/dL Critically low 3.5-5.0 Th e [facility] Comment on above: Performed By: #### L IPA CMP, SHAI #### [facility] [address] [place], [place] [phone] Ruy Ayleen Albumin/Globulin [Mass ratio] 0.7 {ratio} Normal [facility] Comment on above: Performed By: #### L IPA, CMP, SHAI #### [facility] [address] [address] Ruy Ayleen ALP [Catalytic activity/Vol] 54 U/L Normal 38-126 [facility] Comment on above: Performed By: #### L IPA, CMP, SHAI #### [facility] [address] [address] Ruy Ayleen ALT [Catalytic activity/Vol] 11 U/L Normal 9-52 [facility] Comment on above: Performed By: #### L IPA, CMP, SHAI #### [facility] [address] [address] Ruy Ayleen Anion gap [Moles/Vol] 11.6 mmol/L Normal [facility] Comment on above: Performed By: #### L IPA, CMP, SHAI #### [facility] [address] [address] Ruy Ayleen AST [Catalytic activity/Vol] 12 U/L Critically low 14-36 [facility] Comment on above: Performed By: #### L IPA, CMP, SHAI #### [facility] [address] [place] [address] Ruy Ayleen Bilirubin [Mass/Vol] 0.2 mg/dL Normal 0.2-1.3 [facility] Comment on above: Performed By: #### L IPA, CMP, SHAI #### [facility] [address] [address] Ruy Ayleen Calcium [Mass/Vol] 9.2 mg/dL Normal 8.4-10.2 [facility] Comment on above: Performed By: #### L IPA, CMP, SHAI #### [facility] [address] [place] [address] Ruy Ayleen Chloride [Moles/Vol] 104 mmol/L Normal 98-107 [facility] Comment on above: Performed By: #### L IPA, CMP, SHAI #### [facility] [address] [place] [address] Ruy Ayleen CO2 [Moles/Vol] 29.7 mmol/L Normal 22.0-30.0 [facility] Comment on above: Performed By: #### L IPA CMP, SHAI #### [facility] [address] [address] Ruy Ayleen Creatinine [Mass/Vol] 0.74 mg/dL Normal 0.52-1.04 [facility] Comment on above: Performed By: #### L IPA CMP, SHAI #### [facility] [address] [address] Ruy Ayleen EGFR-AF ECUADOREAN >60 Normal >=60 [facility] Comment on above: Performed By: #### L IPA CMP, SHAI #### [facility] [address] [place] [address] Ruy Ayleen EGFR-NON AF ECUADOREAN >60 Normal >=60 [facility] Comment on above: Performed By: #### L IPA CMP, SHAI #### [facility] [address] [place] [address] Ruy Ayleen Globulin (S) [Mass/Vol] 4.4 g/dL Normal [facility] Comment on above: Performed By: #### L IPA CMP, SHAI #### [facility] [address] [place] [address] Ruy Ayleen Glucose [Mass/Vol] 104 mg/dL Normal 74-106 The [facility] Comment on above: Performed By: #### L IPA CMP, SHAI #### [facility] [address] [place] [address] Ruy Ayleen Potassium [Moles/Vol] 4.3 mmol/L Normal 3.4-5.0 [facility] Comment on above: Performed By: #### L IPA CMP, SHAI #### [facility] [address] [place] [address] Ruy Ayleen Protein [Mass/Vol] 7.6 g/dL Normal 6.1-8.2 [facility] Comment on above: Performed By: #### L IPA CMP, SHAI #### [facility] [address] [place] [address] Ruy Ayleen Sodium [Moles/Vol] 141 mmol/L Normal 137-145 [facility] Comment on above: Performed By: #### L KARLI WEST, SHAI #### [facility] [address] [place], [place] [address] Ruy Abbasi Urea nitrogen [Mass/Vol] 9.0 mg/dL Normal 7.0-17.0 [facility] Comment on above: Performed By: #### L KARLI WEST, SHAI #### [facility] [address] [id number] Ruy Abbasi Urea nitrogen/Creatinine [Mass ratio] 12.2 mg/mg Normal [facility] Comment on above: Performed By: #### L KARLI WEST, SHAI #### [facility] [address] [id number] Ruy Abbasi MR-MR abdomen wo/w con IMPOR Ton 02-16-2021 MR-MR abdomen wo/w con IMPORT Images were obtained outside of [facility] [id number] Normal [facility] CT-CT abdomen pelvis w con I MPORTon 02-15-2021 CT-CT abdomen pelvis w con IMPORT Images were obtained outside of [facility] [id number] Normal [facility] CT-CT abdomen pelvis wo con IMPORTon 02-08-2021 CT-CT abdomen pelvis wo con IMPORT Images were obtained outside of [facility] [id number] Normal [facility] US-US gall bladder IMPORTon 02-08-2021 US-US gall bladder IMPORT Images were obtained outside of [facility] [id number] Normal [facility] CNOVon 12-28-2020 CNOV Office Visit (LOORRM ) -------- DARLING KHANNA ([id number]) 1980 F Date Time Provider Department 12/28/20 3:30 PM CAST TECH YANIRA JEET During your visit today, we recorded the following information about you: Tracey Hair Ma 12/28/2020 4:25 PM Signed Dispensed XL/XXL Reaction brace for the Right knee. Dispensed by [facility] Recreation Director. Instructions were given on application/adjustments. She will f/u as scheduled/prn. Tracey Hair MA,ROT Referring Provider: ISHAN YUSUF [[id number]] Allergies As of Date: 12/28/2020 Noted Allergy Reaction INDOMETHACIN 05/10/2018 7 - Swelling Date Reviewed: 12/28/2020 Reviewed by: Ishan Yusuf DO - Fully Assessed Primary Visit Diagnosis:Patellofemoral arthralgia of right knee [M25.561] Prescriptions as of 12/28/2020 Sig: OMEPRAZOLE 40 MG CAPSULE,NATALIE* TAKE 1 CAPSULE BY MOUTH EVERY* MARY LOU 0.25 MG-35 MCG TABLET Take 1 tablet by mouth once d* LEVOTHYROXINE 75 MCG TABLET Take 75 mcg by mouth once kimberlee* Problem List As Of Date 12/28/2020 Noted Resolved Chronic pain of right knee [M25.561, G89.29] 11/12/2017 Pain in right foot [M79.671] 11/26/2017 Encounter Status:Closed by TRACEY HAIR MA on 12/28/20 Normal [facility] Office Visit (LOORRM ) -------- DARLING KHANNA ([id number]) 1980 F Date Time Provider Department 12/28/20 3:15 PM ISHAN YUSUF During your visit today, we recorded the following information about you: Ishan Yusuf DO 12/28/2020 3:40 PM Signed Darling Khanna is a patient of Peter Ahumada MD. CHIEF COMPLAINT: Darling Khanna is a 40 year old female who presents today for follow up of left finger. HISTORY OF PRESENT ILLNESS: Notes improvement in pain in the left little finger Has been unable to get to OT due to work schedule and a cancellation by provider Also complains of right knee pain Complains of anterior knee pain Worse as she is constantly on her feet SOCIAL HISTORY: Tobacco Use: Never PHYSICAL EXAMINATION: Specific MSK Exam No TTP over the fifth proximal phalanx Slight improvement in finger flexion No effusion of the right knee Mild patellofemoral crepitance felt IMAGING: No imaging was performed today. CLINICAL IMPRESSION / ASSESSMENT: (N62.090O) Closed nondisplaced fracture of proximal phalanx of left little finger with routine healing, subsequent encounter (primary encounter diagnosis) (M25.561) Patellofemoral arthralgia of right knee PLAN: She will set up with OT closer to her house at this time Continue ROM, activities as tolerated Discussed options for the right knee Will try a reaction knee brace to wear at work Consider formal PT if not improving Procedures Ishan Yusuf DO Referring Provider: SELF [200] Allergies As of Date: 12/28/2020 Noted Allergy Reaction INDOMETHACIN 05/10/2018 7 - Swelling Date Reviewed: 12/28/2020 Reviewed by: Ishan Yusuf DO - Fully Assessed Reason for Visit: Fracture [4131] Primary Visit Diagnosis:Closed nondisplaced fracture of proximal phalanx of left little finger with routine healing, subsequent encounter [S62.647D] Other Visit Diagnosis:Patellofemoral arthralgia of right knee [M25.561] Prescriptions as of 12/28/2020 Sig: OMEPRAZOLE 40 MG CAPSULE,NATALIE* TAKE 1 CAPSULE BY MOUTH EVERY* MARY LOU 0.25 MG-35 MCG TABLET Take 1 tablet by mouth once d* LEVOTHYROXINE 75 MCG TABLET Take 75 mcg by mouth once kimberlee* Problem List As Of Date 12/28/2020 Noted Resolved Chronic pain of right knee [M25.561, G89.29] 11/12/2017 Pain in right foot [M79.671] 11/26/2017 Encounter Status:Closed by ISHAN YUSUF on 12/28/20 Normal [facility] CNOVon 11-30-2020 CNOV Office Visit (LOORRM ) -------- DARLING KHANNA ([id number]) 1980 F Date Time Provider Department 11/30/20 3:30 PM ISHAN YUSUF During your visit today, we recorded the following information about you: Ishan Yusuf DO 11/30/2020 4:20 PM Signed Darling Khanna is a patient of Peter Ahumada MD. CHIEF COMPLAINT: Darling Khanna is a 40 year old female who presents today for follow up of left hand, little finger. HISTORY OF PRESENT ILLNESS: PAIN EVALUATION 11/30/2020 1551 Pain Level: 1 Pain Location: Hand-Left Description: Aching;Sore;Dull Duration Units: Weeks Frequency: Intermittent Intervention: Reposition;Relaxation Notes improvement in the left little finger Has been using the splint SOCIAL HISTORY: Tobacco Use: Never PHYSICAL EXAMINATION: Specific MSK Exam no specific tenderness No change in swelling Continued stiffness with motion IMAGING: Final results and radiologist's interpretation, available in the [facility] health record. Images were reviewed with the patient/family members in the office today. My personal interpretation of the performed imaging is healing proximal phalanx fracture CLINICAL IMPRESSION / ASSESSMENT: (P55.409O) Closed nondisplaced fracture of proximal phalanx of left little finger, initial encounter (primary encounter diagnosis) PLAN: Start weaning out of the splint at this time Can start OT at this time ROM as tolerated Follow-up in 3-4 weeks Procedures Ishan Yusuf DO Referring Provider: SELF [200] Allergies As of Date: 11/30/2020 Noted Allergy Reaction INDOMETHACIN 05/10/2018 7 - Swelling Date Reviewed: 11/30/2020 Reviewed by: William Figueroa Ma - Fully Assessed Reason for Visit: Pain [78] Primary Visit Diagnosis:Closed nondisplaced fracture of proximal phalanx of left little finger with routine healing, subsequent encounter [L21.997D] Order(s):XR HAND GENERAL 3V PA/LAT/OBL LT [[id number]] Order #: [id number] FUTURE CONSULT TO MANAGER MATH [[id number]] Order #: [id number]: 1 FUTURE Prescriptions as of 11/30/2020 Sig: OMEPRAZOLE 40 MG CAPSULE,NATALIE* TAKE 1 CAPSULE BY MOUTH EVERY* MARY LOU 0.25 MG-35 MCG TABLET Take 1 tablet by mouth once d* LEVOTHYROXINE 75 MCG TABLET Take 75 mcg by mouth once kimberlee* Problem List As Of Date 11/30/2020 Noted Resolved Chronic pain of right knee [M25.561, G89.29] 11/12/2017 Pain in right foot [M79.671] 11/26/2017 Encounter Status:Closed by ISHAN YUSUF on 11/30/20 Normal [facility] XR HAND 3V PA/LAT/OBL LTon 0 11-30-2020 XR HAND 3V PA/LAT/OBL LT * * *Final Report* * * DATE OF EXAM: Nov 30 2020 3:45PM LZX 5345 - XR HAND 3V PA/LAT/OBL LT / PROCEDURE REASON: Closed nondisplaced fracture of proximal phalanx of left little finger, initial * * * * Physician Interpretation * * * * X-RAYS LEFT HAND HISTORY: left small finger injury/ fx. Closed nondisplaced fracture of proximal phalanx of left little finger, initial encounter TECHNIQUE: 3 views of the left hand. COMPARISON: 11/18/2020 RESULT: There is a healing nondisplaced intra-articular fracture 5th digit proximal phalanx extending into the PIP joint. Alignment is unchanged. Small amount of developing callus consistent with early changes of healing. No additional fractures. IMPRESSION: Healing 5th proximal phalanx fracture Supervisor Pleating: PSCB Transcribe Date/Time: Nov 30 2020 4:18P Dictated by : JUDTIH FUENTES MD This examination was interpreted and the report reviewed and electronically signed by: JUDITH FUENTES MD on Nov 30 2020 4:19PM EST [id number] Normal [facility] XR Hand - left PA and Latera l and Obliqueon 11-30-2020 IMPRESSION: Healing 5th proximal phalanx fracture Supervisor Pleating: WILBERT Transcribe Date/Time: Nov 30 2020 4:18P Dictated by : JUDITH FUENTES MD This examination was interpreted and the report reviewed and electronically signed by: JUDITH FUENTES MD on Nov 30 2020 4:19PM [facility] DIVISION OF RADIOLOGY * * *Final Report* * * DATE OF EXAM: Nov 30 2020 3:45PM LZX 5345 - XR HAND 3V PA/LAT/OBL LT / PROCEDURE REASON: Closed nondisplaced fracture of proximal phalanx of left little finger, initial * * * * Physician Interpretation * * * * X-RAYS LEFT HAND HISTORY: left small finger injury/ fx. Closed nondisplaced fracture of proximal phalanx of left little finger, initial encounter TECHNIQUE: 3 views of the left hand. COMPARISON: 11/18/2020 RESULT: There is a healing nondisplaced intra-articular fracture 5th digit proximal phalanx extending into the PIP joint. Alignment is unchanged. Small amount of developing callus consistent with early changes of healing. No additional fractures. DIVISION OF RADIOLOGY Provider, [facility] - 11/30/2020 * * *Final Report* * * DATE OF EXAM: Nov 30 2020 3:45PM LZX 5345 - XR HAND 3V PA/LAT/OBL LT / PROCEDURE REASON: Closed nondisplaced fracture of proximal phalanx of left little finger, initial * * * * Physician Interpretation * * * * X-RAYS LEFT HAND HISTORY: left small finger injury/ fx. Closed nondisplaced fracture of proximal phalanx of left little finger, initial encounter TECHNIQUE: 3 views of the left hand. COMPARISON: 11/18/2020 RESULT: There is a healing nondisplaced intra-articular fracture 5th digit proximal phalanx extending into the PIP joint. Alignment is unchanged. Small amount of developing callus consistent with early changes of healing. No additional fractures. IMPRESSION IMPRESSION: Healing 5th proximal phalanx fracture Supervisor Pleating: WILBERT Transcribe Date/Time: Nov 30 2020 4:18P Dictated by : JUDITH FUENTES MD This examination was interpreted and the report reviewed and electronically signed by: JUDITH FUENTES MD on Nov 30 2020 4:19PM EST [facility] Radiology Study observation (narrative) [facility] XR Hand - left PA and Latera l and ObliqueOrdered By: Ccf Provider on 11-30-2020 [facility] CNOVon 11-18-2020 CNOV Office Visit (LOORRM ) -------- DARLING KHANNA ([id number]) 1980 F Date Time Provider Department 11/18/20 3:45 PM ISHAN YUSUF LOORR During your visit today, we recorded the following information about you: Ishan Yusuf DO 11/18/2020 4:12 PM Signed Darling Khanna is a patient of Peter Ahumada MD. CHIEF COMPLAINT: Darling Khanna is a 40 year old female who presents today for follow up of left hand. HISTORY OF PRESENT ILLNESS: PAIN EVALUATION 11/18/2020 1544 Pain Level: 1 Pain Location: Hand-Left Description: Aching;Sore;Dull Duration Amount of Time: 3 Duration Units: Weeks Frequency: Intermittent Intervention: Reposition;Relaxation Notes some improvement in pain Denies any new injur SOCIAL HISTORY: Tobacco Use: Never PHYSICAL EXAMINATION: Specific MSK Exam decreased motion of the left little finger at PIP TTP over the proximal phalanx IMAGING: Final results and radiologist's interpretation, available in the [facility] health record. Images were reviewed with the patient/family members in the office today. My personal interpretation of the performed imaging is intra-articular proximal phalanx fracture CLINICAL IMPRESSION / ASSESSMENT: (B77.063G) Closed nondisplaced fracture of proximal phalanx of left little finger, initial encounter (primary encounter diagnosis) PLAN: Placed her in aluminum splint Will discuss case with Dr. Montana due to some progression of depression Follow-up accordingly Procedures Ishan Yusuf DO Referring Provider: SELF [200] Allergies As of Date: 11/18/2020 Noted Allergy Reaction INDOMETHACIN 05/10/2018 7 - Swelling Date Reviewed: 11/18/2020 Reviewed by: William Figueroa Ma - Fully Assessed Reason for Visit: Pain [78] Primary Visit Diagnosis:Closed nondisplaced fracture of proximal phalanx of left little finger, initial encounter [S62.647A] Order(s):XR HAND GENERAL 3V PA/LAT/OBL LT [[id number]] Order #: [id number] FUTURE Prescriptions as of 11/18/2020 Sig: OMEPRAZOLE 40 MG CAPSULE,NATALIE* TAKE 1 CAPSULE BY MOUTH EVERY* MARY LOU 0.25 MG-35 MCG TABLET Take 1 tablet by mouth once d* LEVOTHYROXINE 75 MCG TABLET Take 75 mcg by mouth once kimberlee* Problem List As Of Date 11/18/2020 Noted Resolved Chronic pain of right knee [M25.561, G89.29] 11/12/2017 Pain in right foot [M79.671] 11/26/2017 Encounter Status:Closed by ISHAN YUSUF on 11/18/20 [facility] XR HAND 3V PA/LAT/OBL LTon 0 11-18-2020 XR HAND 3V PA/LAT/OBL LT * * *Final Report* * * DATE OF EXAM: Nov 18 2020 3:50PM LZX 5345 - XR HAND 3V PA/LAT/OBL LT / PROCEDURE REASON: Closed nondisplaced fracture of proximal phalanx of left little finger, initial * * * * Physician Interpretation * * * * EXAMINATION: XR HAND 3V PA/LAT/OBL LT PATIENT/TECHNOLOGIST PROVIDED HISTORY: left small finger follow up fracture CLINICAL INFORMATION ( PROVIDED BY ORDERING CLINICIAN) : Closed nondisplaced fracture of proximal phalanx of left little finger, initial encounter TECHNIQUE: XR HAND 3V PA/LAT/OBL LT Laterality: LEFT Number of different views (projections): 3 M: XB_1 COMPARISON: 10/30/2020 RESULT: Comminuted minimally displaced intra-articular fracture in the distal fifth proximal phalanx is again noted and unchanged in alignment. Slight interval increase in callus formation and partial resorption along the fracture margins. No new fracture. Remainder unchanged. IMPRESSION: Healing fifth proximal phalanx fracture. Supervisor Pleating: PSCB Transcribe Date/Time: Nov 18 2020 8:15P Dictated by : ADRIANE CAMPOS MD This examination was interpreted and the report reviewed and electronically signed by: ADRIANE CAMPOS MD on Nov 18 2020 8:27PM EST [id number] Normal [facility] XR Hand - left PA and Latera l and Obliqueon 11-18-2020 IMPRESSION: Healing fifth proximal phalanx fracture. Supervisor Pleating: WILBERT Transcribe Date/Time: Nov 18 2020 8:15P Dictated by : ADRIANE CAMPOS MD This examination was interpreted and the report reviewed and electronically signed by: ADRIANE CAMPOS MD on Nov 18 2020 8:27PM EST DIVISION OF RADIOLOGY * * *Final Report* * * DATE OF EXAM: Nov 18 2020 3:50PM LZX 5345 - XR HAND 3V PA/LAT/OBL LT / PROCEDURE REASON: Closed nondisplaced fracture of proximal phalanx of left little finger, initial * * * * Physician Interpretation * * * * EXAMINATION: XR HAND 3V PA/LAT/OBL LT PATIENT/TECHNOLOGIST PROVIDED HISTORY: left small finger follow up fracture CLINICAL INFORMATION ( PROVIDED BY ORDERING CLINICIAN) : Closed nondisplaced fracture of proximal phalanx of left little finger, initial encounter TECHNIQUE: XR HAND 3V PA/LAT/OBL LT Laterality: LEFT Number of different views (projections): 3 M: XB_1 COMPARISON: 10/30/2020 RESULT: Comminuted minimally displaced intra-articular fracture in the distal fifth proximal phalanx is again noted and unchanged in alignment. Slight interval increase in callus formation and partial resorption along the fracture margins. No new fracture. Remainder unchanged. DIVISION OF RADIOLOGY Provider, [facility] - 11/18/2020 * * *Final Report* * * DATE OF EXAM: Nov 18 2020 3:50PM LZX 5345 - XR HAND 3V PA/LAT/OBL LT / PROCEDURE REASON: Closed nondisplaced fracture of proximal phalanx of left little finger, initial * * * * Physician Interpretation * * * * EXAMINATION: XR HAND 3V PA/LAT/OBL LT PATIENT/TECHNOLOGIST PROVIDED HISTORY: left small finger follow up fracture CLINICAL INFORMATION ( PROVIDED BY ORDERING CLINICIAN) : Closed nondisplaced fracture of proximal phalanx of left little finger, initial encounter TECHNIQUE: XR HAND 3V PA/LAT/OBL LT Laterality: LEFT Number of different views (projections): 3 M: XB_1 COMPARISON: 10/30/2020 RESULT: Comminuted minimally displaced intra-articular fracture in the distal fifth proximal phalanx is again noted and unchanged in alignment. Slight interval increase in callus formation and partial resorption along the fracture margins. No new fracture. Remainder unchanged. IMPRESSION IMPRESSION: Healing fifth proximal phalanx fracture. Supervisor Pleating: PSCMaribeth Transcribe Date/Time: Nov 18 2020 8:15P Dictated by : ADRIAEN CAMPOS MD This examination was interpreted and the report reviewed and electronically signed by: ADRIANE CAMPOS MD on Nov 18 2020 8:27PM EST [facility] Radiology Study observation (narrative) [facility] XR Hand - left PA and Latera l and ObliqueOrdered By: Ccf Provider on 11-18-2020 [facility] CNOVon 11-04-2020 CNOV Office Visit (ORAVON ) -------- DARLING KHANNA ([id number]) 1980 F Date Time Provider Department 11/04/20 2:00 PM BOB MILLAN During your visit today, we recorded the following information about you: Bob Millan DO 11/04/2020 2:12 PM Signed [facility] Office Visit Documentation Note [facility] Sports Medicine Orthopaedic and Rheumatologic [place] REASON FOR VISIT / CHIEF COMPLAINT SERVICE DATE: November 04, 2020 PCP: Peter Ahumada MD CHIEF COMPLAINT: Darling Khanna is a 40 year old female who presents today for a new evaluation of following complaint: Patient presents with: Left Hand - New HISTORY OF PRESENT ILLNESS (HPI) PAIN EVALUATION 11/04/2020 1401 Pain Level: 0 Pain Location: Hand-Left Duration Amount of Time: 5 Duration Units: Days Frequency: Continuous Intervention: ? splinting Brief overview: left 4th finger injury. DOI 10/30. She states that she was volleyball and she went to hit the ball and her finger was pulled laterally. She does have ecchymosis and swelling. She denies any pain unless she bumps her hand. Was there an injury that started this? Yes, 10/30 PREVIOUS TREATMENTS: Treatments so far have included no medications, physical therapy, injections, bracing, advanced imaging or surgical evaluation. REVIEW OF SYSTEMS ROS: Neurologic: Any numbness or tingling? No Endocrine: Any diagnosis of diabetes? No ALLERGIES ALLERGIES Allergen Reactions - Indomethacin Swelling PAST MEDICAL HISTORY No past medical history on file. PHYSICAL EXAMINATION PHYSICAL EXAMINATION: Body Habitus: well nourished and no acute distress Psych: normal Sensation: sensation to light touch is grossly normal bilaterally Skin: Color, texture, turgor normal. No rashes or lesions Swelling: no swelling noted Gait: Normal, the patient did not have trouble getting onto the exam table. ORTHO EXAM: Ortho Exam Swelling of small finger Patient can hold full extension FDP/FDS ok Pain proximal phal and PIP RCL laxity at PIP IMAGING/LABORATORY IMAGING: Final results and radiologist's interpretation, available in the [facility] health record. Images were reviewed with the patient/family members in the office today. My personal interpretation of the performed imaging is Has [place] prox phalanx fracture at PIP ASSESSMENT / PLAN CLINICAL IMPRESSION / ASSESSMENT: (V20.485N) Closed nondisplaced fracture of proximal phalanx of left little finger, initial encounter (primary encounter diagnosis) RECOMMENDATION / PLAN: We discussed fracture care at great length today, including normal healing times for a phalanx fracture, non-operative and surgical management. At this time, the fracture will be managed nonoperatively. Patient was placed in Dorsal splint Follow up with Dr. Yusuf in 2 weeks, repeat xrays. Verbal health education was given to patient. Patient verbalizes understanding and agrees with the treatment plan as detailed above. Bob Millan D.O. [facility] [place] Team Physician, [facility] Consulting Physician, [place] [facility] [place], [employer]ist [phone] Patient verbalizes understanding and agrees with the treatment plan as detailed above. Referring Provider: SELF [[id number]] Allergies As of Date: 11/04/2020 Noted Allergy Reaction INDOMETHACIN 05/10/2018 7 - Swelling Date Reviewed: 11/04/2020 Reviewed by: Juaquin Farmer - Fully Assessed Reason for Visit: New [[id number]] Primary Visit Diagnosis:Closed nondisplaced fracture of proximal phalanx of left little finger, initial encounter [S62.647A] Prescriptions as of 11/04/2020 Sig: OMEPRAZOLE 40 MG CAPSULE,NATALIE* TAKE 1 CAPSULE BY MOUTH EVERY* MARY LOU 0.25 MG-35 MCG TABLET Take 1 tablet by mouth once d* LEVOTHYROXINE 75 MCG TABLET Take 75 mcg by mouth once kimberlee* Problem List As Of Date 11/04/2020 Noted Resolved Chronic pain of right knee [M25.561, G89.29] 11/12/2017 Pain in right foot [M79.671] 11/26/2017 Disposition: Return in about 2 weeks (around 11/18/2020) for Dr. Yusuf or Shayla Silva in [place]. Follow-up and Disposition History Recorded Encounter Status:Closed by BOB MILLAN DO on 11/04/20 Normal [facility] DX-XR HAND COMPLETE LEFT IMP [facility] 10-30-2020 DX-XR HAND COMPLETE LEFT IMPORT Images were obtained outside of [facility] [id number] Normal [facility] Vital Signs Date Time Vital Sign Value Performing Clinician Facility 06-10-2024 15:00-0500 Body height 182.88 cm Peter Ahumada DO Work Phone: [facility] 06-10-2024 15:00-0500 Body mass index (BMI) [Ratio] 32.3 kg/m2 Peter Ahumada DO Work Phone: [facility] 06-10-2024 15:00-0500 Body weight 107.95 kg Peter Auhmada DO Work Phone: [facility] 06-10-2024 15:00-0500 Diastolic blood pressure 60 mm[Hg] Peter Ahumada DO Work Phone: [facility] 06-10-2024 15:00-0500 Heart rate 75 /min Peter Kuns DO Work Phone: [facility] 06-10-2024 15:00-0500 Respiratory rate 16 /min Peter Kuns DO Work Phone: [facility] 06-10-2024 15:00-0500 SaO2% (BldA) [Mass fraction] 96 % Peter Kuns DO Work Phone: [facility] 06-10-2024 15:00-0500 Systolic blood pressure 98 mm[Hg] Peter Kuns DO Work Phone: [facility] 03-06-2024 14:27-0400 Body height 182.88 cm DO Peter Kuns Work Phone: [facility] 03-06-2024 14:27-0400 Body mass index (BMI) [Ratio] 36.4 kg/m2 DO Peter Kuns Work Phone: [facility] 03-06-2024 14:27-0400 Body weight 122.01 kg DO Peter Kuns Work Phone: [facility] 03-06-2024 14:27-0400 Diastolic blood pressure 72 mm[Hg] DO Peter Kuns Work Phone: [facility] 03-06-2024 14:27-0400 Heart rate 77 /min DO Peter Kuns Work Phone: [facility] 03-06-2024 14:27-0400 Respiratory rate 16 /min DO Peter Kuns Work Phone: [facility] 03-06-2024 14:27-0400 SaO2% (BldA) [Mass fraction] 96 % DO Peter Kuns Work Phone: [facility] 03-06-2024 14:27-0400 Systolic blood pressure 118 mm[Hg] DO Peter Kuns Work Phone: [facility] 01-29-2024 14:05-0400 Diastolic blood pressure 78 mm[Hg] DO Peter Kuns Work Phone: [facility] 01-29-2024 14:05-0400 Heart rate 91 /min DO Peter Ahumada Work Phone: [facility] 01-29-2024 14:05-0400 Respiratory rate 16 /min DO Peter Ahumada Work Phone: [facility] 01-29-2024 14:05-0400 SaO2% (BldA) [Mass fraction] 94 % DO Peter Ahumada Work Phone: [facility] 01-29-2024 14:05-0400 Systolic blood pressure 124 mm[Hg] DO Peter Ahumada Work Phone: [facility] 01-29-2024 13:05-0400 Body temperature 97 [degF] DO Peter Ahumada Work Phone: [facility] 01-29-2024 12:42-0400 Inhaled oxygen flow rate 8 L/min DO Peter Ahumada Work Phone: [facility] 01-29-2024 11:44-0400 Body height 182.88 cm DO Peter Ahumada Work Phone: [facility] 01-29-2024 11:44-0400 Body mass index (BMI) [Ratio] 36.5 kg/m2 DO Peter Ahumada Work Phone: [facility] 01-29-2024 11:44-0400 Body weight 122.2 kg DO Peter Ahumada Work Phone: [facility] 12-31-2023 07:25-0400 Body height 2194.56 cm DO Peter Ahumada Work Phone: [facility] 12-31-2023 07:25-0400 Body mass index (BMI) [Ratio] 0.2 kg/m2 DO Peter Shens Work Phone: [facility] 12-31-2023 07:25-0400 Body weight 122.46 kg DO Peter Kuns Work Phone: [facility] 12-31-2023 07:25-0400 Diastolic blood pressure 80 mm[Hg] DO Peter Kuns Work Phone: [facility] 12-31-2023 07:25-0400 Heart rate 65 /min DO Peter Kuns Work Phone: [facility] 12-31-2023 07:25-0400 Respiratory rate 16 /min DO Peter Kuns Work Phone: [facility] 12-31-2023 07:25-0400 SaO2% (BldA) [Mass fraction] 97 % DO Peter Kuns Work Phone: [facility] 12-31-2023 07:25-0400 Systolic blood pressure 118 mm[Hg] DO Peter Kuns Work Phone: [facility] 12-27-2023 14:20-0400 Body height 182.88 cm DO Peter Kuns Work Phone: [facility] 12-27-2023 14:20-0400 Body mass index (BMI) [Ratio] 37.3 kg/m2 DO Peter Kuns Work Phone: [facility] 12-27-2023 14:20-0400 Body weight 124.73 kg DO Peter Kuns Work Phone: [facility] 12-27-2023 14:20-0400 Diastolic blood pressure 70 mm[Hg] DO Peter Kuns Work Phone: [facility] 12-27-2023 14:20-0400 Heart rate 86 /min DO Peter Kuns Work Phone: [facility] 12-27-2023 14:20-0400 Respiratory rate 16 /min DO Peter Kuns Work Phone: [facility] 12-27-2023 14:20-0400 SaO2% (BldA) [Mass fraction] 96 % DO Peter Ahumada Work Phone: [facility] 12-27-2023 14:20-0400 Systolic blood pressure 116 mm[Hg] DO Peterluiza Shens Work Phone: [facility] 12-17-2023 07:31-0400 Body height 182.88 cm DO Peter Ahumada Work Phone: [facility] 12-17-2023 07:31-0400 Body temperature 97.7 [degF] DO Peter Ahumada Work Phone: [facility] 12-17-2023 07:31-0400 Body weight 123.9 kg DO Peter Ahumada Work Phone: [facility] 12-17-2023 07:31-0400 Diastolic blood pressure 90 mm[Hg] DO Peter Ahumada Work Phone: [facility] 12-17-2023 07:31-0400 Heart rate 88 /min DO Peter Ahumada Work Phone: [facility] 12-17-2023 07:31-0400 Respiratory rate 20 /min DO Peter Ahumada Work Phone: [facility] 12-17-2023 07:31-0400 SaO2% (BldA) [Mass fraction] 97 % DO Peter Ahumada Work Phone: [facility] 12-17-2023 07:31-0400 Systolic blood pressure 143 mm[Hg] DO Peter Ahumada Work Phone: [facility] 06-08-2023 10:30-0500 Body height 182.88 cm Peter Ahumada Other [facility] [employer] Other 06-08-2023 10:30-0500 Body mass index (BMI) [Ratio] 34.91 kg/m2 Peter Shenshira Other [employer] Other 06-08-2023 10:30-0500 Body weight 116.76 kg Peter Blake Other [employer] Other 06-08-2023 10:30-0500 Diastolic blood pressure 82 mm[Hg] Peter Ahumada Other [employer] Other 06-08-2023 10:30-0500 Respiratory rate 16 /min Peter Ahumada Other [employer] Other 06-08-2023 10:30-0500 SaO2% (BldA) [Mass fraction] 98 % Peter Ahumada Other [employer] Other 06-08-2023 10:30-0500 Systolic blood pressure 126 mm[Hg] Peter Ahumada Other [employer] Other 05-24-2023 15:00-0400 Body height 182.88 cm Peter Ahumada Other [employer] Other 05-24-2023 15:00-0400 Body mass index (BMI) [Ratio] 35.12 kg/m2 Peter Ahumada Other [employer] Other 05-24-2023 15:00-0400 Body weight 117.48 kg Peter Ahumada Other [employer] Other 05-24-2023 15:00-0400 Diastolic blood pressure 86 mm[Hg] Peter Ahumada Other [employer] Other 05-24-2023 15:00-0400 Respiratory rate 16 /min Peter Ahumada Other [employer] Other 05-24-2023 15:00-0400 SaO2% (BldA) [Mass fraction] 95 % Peter Ahumada Other [employer] Other 05-24-2023 15:00-0400 Systolic blood pressure 130 mm[Hg] Peter Ahumada Other [employer] Other 03-21-2023 08:30-0400 Body height 182.88 cm Peter Ahumada Other [employer] Other 03-21-2023 08:30-0400 Body mass index (BMI) [Ratio] 34.39 kg/m2 Peter Ahumada Other [employer] Other 03-21-2023 08:30-0400 Body weight 115.03 kg Pteer Ahumada Other [employer] Other 03-21-2023 08:30-0400 Diastolic blood pressure 70 mm[Hg] Peter Ahumada Other [employer] Other 03-21-2023 08:30-0400 Respiratory rate 16 /min Peter Ahumada Other [employer] Other 03-21-2023 08:30-0400 SaO2% (BldA) [Mass fraction] 95 % Peter Ahumada Other [employer] Other 03-21-2023 08:30-0400 Systolic blood pressure 124 mm[Hg] Peter Ahumada Other [employer] Other 11-01-2022 13:49-0400 Diastolic blood pressure 90 mm[Hg] DO Peter Ahumada Work Phone: [facility] 11-01-2022 13:49-0400 Systolic blood pressure 153 mm[Hg] DO Peter Ahumada Work Phone: [facility] 11-01-2022 13:02-0400 Body temperature 97.6 [degF] DO Peter Ahumada Work Phone: [facility] 11-01-2022 13:02-0400 Heart rate 72 /min DO Peter Ahumada Work Phone: [facility] 11-01-2022 13:02-0400 Respiratory rate 18 /min DO Peter Ahumada Work Phone: [facility] 11-01-2022 13:02-0400 SaO2% (BldA) [Mass fraction] 96 % DO Peter Ahumada Work Phone: [facility] 11-01-2022 08:58-0400 Body height 182.88 cm DO Peter Ahumada Work Phone: [facility] 11-01-2022 08:58-0400 Body weight 117.93 kg DO Peter Ahumada Work Phone: [facility] 05-25-2022 17:00-0400 Body height 182.88 cm Peter Ahumada Other [facility] [employer] Other 05-25-2022 17:00-0400 Body mass index (BMI) [Ratio] 33.63 kg/m2 Peter Ahumada Other [facility] [employer] Other 05-25-2022 17:00-0400 Body weight 112.49 kg Peter Ahumada Other [employer] [facility] [employer] Other 05-25-2022 17:00-0400 Diastolic blood pressure 74 mm[Hg] Peter Ahumada Other [employer] Other 05-25-2022 17:00-0400 Respiratory rate 16 /min Peter Ahuamda Other [employer] Other 05-25-2022 17:00-0400 SaO2% (BldA) [Mass fraction] Peter Ahumada Other [employer] Other 05-25-2022 17:00-0400 Systolic blood pressure 118 mm[Hg] Peter Ahumada Other [employer] Other 04-24-2022 09:15-0400 Body height 182.88 cm Peter Ahumada Other [employer] Other 04-24-2022 09:15-0400 Body mass index (BMI) [Ratio] 33.5 kg/m2 Peter Ahumada Other [employer] Other 04-24-2022 09:15-0400 Body weight 112.04 kg Peter Ahumada Other [employer] Other 04-24-2022 09:15-0400 Diastolic blood pressure 78 mm[Hg] Peter Ahumada Other [employer] Other 04-24-2022 09:15-0400 Respiratory rate 18 /min Peter Ahumada Other [employer] Other 04-24-2022 09:15-0400 SaO2% (BldA) [Mass fraction] 96 % Peter Ahumada Other [employer] Other 04-24-2022 09:15-0400 Systolic blood pressure 124 mm[Hg] Peter Ahumada Other [employer] Other 11-02-2021 12:00-0400 Body height 182.88 cm Peter Ahumada Other [employer] Other 11-02-2021 12:00-0400 Body mass index (BMI) [Ratio] 34.44 kg/m2 Peter Ahumada Other [employer] Other 11-02-2021 12:00-0400 Body weight 115.21 kg Peter Ahumada Other [employer] Other 11-02-2021 12:00-0400 Diastolic blood pressure 66 mm[Hg] Peter Ahumada Other [employer] Other 11-02-2021 12:00-0400 Respiratory rate 16 /min Peter Ahumada Other [employer] Other 11-02-2021 12:00-0400 SaO2% (BldA) [Mass fraction] 97 % Peter Ahumada Other [employer] Other 11-02-2021 12:00-0400 Systolic blood pressure 124 mm[Hg] Peter Ahumada Other [employer] Other 10-17-2021 09:15-0400 Body height 182.88 cm Peter Ahumada Other [employer] Other 10-17-2021 09:15-0400 Body mass index (BMI) [Ratio] 34.2 kg/m2 Peter Ahumada Other [employer] Other 10-17-2021 09:15-0400 Body weight 114.4 kg Peter Ahumada Other [employer] Other 10-17-2021 09:15-0400 Diastolic blood pressure 76 mm[Hg] Peter Ahumada Other [employer] Other 10-17-2021 09:15-0400 Respiratory rate 18 /min Peter Ahumada Other [employer] Other 10-17-2021 09:15-0400 SaO2% (BldA) [Mass fraction] 98 % Peter Ahumada Other [employer] Other 10-17-2021 09:15-0400 Systolic blood pressure 118 mm[Hg] Peter Ahumada Other [employer] Other 10-13-2021 13:28-0400 Body height 182.9 cm Kate Daniel MD Work Phone: [facility] 10-13-2021 13:28-0400 Body temperature 97.7 [degF] Kate Daniel MD Work Phone: [facility] 10-13-2021 13:28-0400 Body weight 115.21 kg Kate Daniel MD Work Phone: [facility] 10-13-2021 13:28-0400 Diastolic blood pressure 55 mm[Hg] Kate Daniel MD Work Phone: [facility] 10-13-2021 13:28-0400 Heart rate 68 /min Kate Daniel MD Work Phone: [facility] 10-13-2021 13:28-0400 SaO2% (BldA) [Mass fraction] 97 % Kate Daniel MD Work Phone: [facility] 10-13-2021 13:28-0400 Systolic blood pressure 112 mm[Hg] Kate Daniel MD Work Phone: [facility] 04-20-2021 08:45-0400 Body height 182.88 cm Peter Ahumada Other [employer] Other 04-20-2021 08:45-0400 Body mass index (BMI) [Ratio] 31.87 kg/m2 Peter Ahumada Other [employer] Other 04-20-2021 08:45-0400 Body weight 106.6 kg Peter Ahumada Other [employer] Other 04-20-2021 08:45-0400 Diastolic blood pressure 74 mm[Hg] Peter Ahumada Other [employer] Other 04-20-2021 08:45-0400 Respiratory rate 18 /min Peter Ahumada Other [employer] Other 04-20-2021 08:45-0400 SaO2% (BldA) [Mass fraction] 96 % Peter Ahumada Other [employer] Other 04-20-2021 08:45-0400 Systolic blood pressure 110 mm[Hg] Peter Ahumada Other [employer] Other Encounters Encounter Date Encounter Type Care Provider Facility Start: 06-10-2024 End: 06-10-2024 ambulatory Peter Ahumada DO Work Phone: [facility] Work Phone: Start: 06-10-2024 End: 06-10-2024 Patient encounter procedure Peter Ahumada DO Work Phone: [facility] [place] Work Phone: Start: 06-04-2024 End: 06-04-2024 Patient encounter procedure Peter Ahumada DO Work Phone: [facility] [place] Work Phone: Start: 06-04-2024 End: 06-04-2024 ambulatory Peter Ahumada DO Work Phone: [facility] Work Phone: Start: 05-22-2024 End: 05-22-2024 Patient encounter procedure Rahul Castillo DO Work Phone: [facility] Comment on above: Lumbosacral radiculo yaritza (Primary Dx) Start: 05-22-2024 End: 05-22-2024 ambulatory RAHUL CASTILLO Not Available Start: 05-22-2024 End: 05-22-2024 Bamboo flowsheet Rahul Castillo DO Work Phone: [facility] Start: 05-22-2024 End: 05-22-2024 Bamboo flowsheet Rahul Castillo DO Work Phone: [facility] Start: 05-19-2024 End: 05-19-2024 ambulatory DO Peter Ahumada Work Phone: [facility] Work Phone: Start: 05-19-2024 End: 05-19-2024 Discharged Recurring DO Peter Ahumada Work Phone: [facility]-Physical Therapy [place] Work Phone: Start: 03-12-2024 End: 03-12-2024 Patient encounter procedure DO Peter Ahumada Work Phone: [facility]Ultras[facility] [place] Work Phone: Start: 03-12-2024 End: 03-12-2024 ambulatory DO Peter Ahumada Work Phone: [facility] Work Phone: Start: 03-06-2024 End: 03-06-2024 ambulatory DO Peter Ahumada Work Phone: [facility] Work Phone: Start: 03-06-2024 End: 03-06-2024 Patient encounter procedure DO Peter Acshira Work Phone: [facility] [place] Work Phone: Start: 03-05-2024 End: 03-05-2024 Patient encounter procedure DO Peter Acshira Work Phone: [facility]-Lab [place] Work Phone: Start: 03-05-2024 End: 03-05-2024 ambulatory DO Peter Acshira Work Phone: [facility] Work Phone: Start: 02-28-2024 End: 02-28-2024 ambulatory ALBER H ITZKOWITZ Not Available Start: 02-13-2024 End: 02-13-2024 ambulatory DO Peter Acshira Work Phone: [facility] Work Phone: Start: 02-13-2024 End: 02-13-2024 Patient encounter procedure DO Peter Acshira Work Phone: [facility] Work Phone: Start: 02-13-2024 End: 02-13-2024 Patient encounter procedure DO Peterluiza Ahumada Work Phone: [facility] Start: 02-13-2024 End: 02-13-2024 ambulatory DO Peterluiza Ahumada Work Phone: [facility] Work Phone: Start: 02-07-2024 End: 02-07-2024 ambulatory ALBER H ITZKOWITZ Not Available Start: 01-29-2024 End: 01-29-2024 Admission to same day surgery center DO Peter Ahumada Work Phone: [facility]-Surgery Center [place] Start: 01-29-2024 End: 01-29-2024 ambulatory DO Peter Ahumada Work Phone: [facility] Work Phone: Start: 01-15-2024 End: 01-15-2024 Departed Referred DO Peter Ahumada Work Phone: [facility] Work Phone: Start: 01-15-2024 End: 01-15-2024 Patient encounter procedure DO Peter Ahumada Work Phone: [facility] Work Phone: Start: 01-15-2024 End: 01-15-2024 ambulatory DO Peter Ahumada Work Phone: [facility] Work Phone: Start: 01-14-2024 End: 01-14-2024 ambulatory DO Peter Ahumada Work Phone: [facility] Work Phone: Start: 01-14-2024 End: 01-14-2024 Patient encounter procedure DO Peter Ahumada Work Phone: [facility] Work Phone: Start: 01-14-2024 End: 01-14-2024 Patient encounter procedure DO Peter Ahumada Work Phone: [facility] Start: 01-14-2024 End: 01-14-2024 ambulatory DO Peter Ahumada Work Phone: [facility] Work Phone: Start: 01-03-2024 End: 01-03-2024 ambulatory ALBER HAINES Not Available Start: 12-31-2023 End: 12-31-2023 ambulatory DO Peter Ahumada Work Phone: [facility] Work Phone: Start: 12-31-2023 End: 12-31-2023 Patient encounter procedure DO Peter Ahumada Work Phone: [facility] Work Phone: Start: 12-31-2023 End: 12-31-2023 Patient encounter procedure DO Peter Ahumada Work Phone: [facility] [place] Work Phone: Start: 12-31-2023 End: 12-31-2023 ambulatory DO Peter Ahumada Work Phone: [facility] Work Phone: Start: 12-31-2023 End: 12-31-2023 ambulatory DO Peter Shenshira Work Phone: [facility] Work Phone: Start: 12-31-2023 End: 12-31-2023 Patient encounter procedure DO Peter Shenshira Work Phone: [facility] [place] Work Phone: Start: 12-28-2023 End: 12-28-2023 Patient encounter procedure DO Peter Ahumada Work Phone: [facility]-XRay [place] Work Phone: Start: 12-28-2023 End: 12-28-2023 ambulatory DO Peter Shenshira Work Phone: [facility] Work Phone: Start: 12-27-2023 End: 12-27-2023 ambulatory DO Peter Shenshira Work Phone: [facility] Work Phone: Start: 12-27-2023 End: 12-27-2023 Patient encounter procedure DO Peter Ahumada Work Phone: [facility] [place] Work Phone: Start: 12-19-2023 Non-patient / Non-visit DO Terry Ahumada Work Phone: [facility] Work Phone: Start: 12-17-2023 End: 12-17-2023 Emergency department patient visit DO Peter Ahumada Work Phone: [facility]-Emergency Room Work Phone: Start: 12-12-2023 End: 12-12-2023 ambulatory ALBER Whaley YANCY Not Available Start: 12-03-2023 End: 12-03-2023 Patient encounter procedure DO Peter Ahumada Work Phone: [facility] Work Phone: Start: 12-03-2023 End: 12-03-2023 ambulatory DO Peter Ahumada Work Phone: [facility] Work Phone: Start: 08-27-2023 End: 08-27-2023 ambulatory Peter Shenshira Other [employer] Other Start: 08-27-2023 Telephone encounter [facility] Start: 08-22-2023 End: 08-22-2023 ambulatory DO Peter Ahumada Work Phone: [facility] Work Phone: Start: 08-22-2023 End: 08-22-2023 Patient encounter procedure DO Peter Ahumada Work Phone: [facility]-Lab [place] Work Phone: Start: 08-20-2023 End: 08-20-2023 ambulatory Peter Ahumada Other [employer] Other Start: 08-20-2023 Telephone encounter [facility] Start: 08-13-2023 Telephone encounter Peter Ahumada [facility] Start: 08-13-2023 End: 08-13-2023 Patient encounter procedure DO [facility] Start: 08-13-2023 End: 08-13-2023 ambulatory DO Peter Blake Work Phone: [employer] Other Start: 08-06-2023 End: 08-06-2023 ambulatory Peter Acshira Other [employer] Other Start: 08-06-2023 Telephone encounter Peter Ahumada [facility] Start: 06-11-2023 End: 06-11-2023 ambulatory Peter Ahumada Other [employer] Other Start: 06-11-2023 Telephone encounter Peter Ahumada [facility] Start: 06-08-2023 Office outpatient vi sit 25 minutes Peter Ahumada [facility] Start: 06-08-2023 End: 06-08-2023 ambulatory DO Peter Blake Work Phone: [facility] Work Phone: Start: 06-08-2023 End: 06-08-2023 Patient encounter procedure DO Peter Ahumada Work Phone: [facility]Ray [place] Work Phone: Start: 06-08-2023 End: 06-08-2023 Patient encounter procedure DO Peter Ahumada [facility] Phone[facility] Work [facility] Start: 05-25-2023 End: 05-25-2023 Patient encounter procedure DO Peter Ahumada Work Phone: [facility] [place] Work Phone: Start: 05-24-2023 End: 05-24-2023 ambulatory Peter Ahumada Other [employer] Other Start: 05-24-2023 Office outpatient vi sit 25 minutes Peter Ahumada [facility] Start: 05-24-2023 End: 05-24-2023 Patient encounter procedure DO Peter Ahumada Work Phone: [facility] Work Phone: Start: 03-21-2023 End: 03-21-2023 ambulatory Peter Ahumada Other [employer] Other Start: 03-21-2023 Office outpatient vi sit 15 minutes Peter Ahumada [facility] Start: 03-19-2023 End: 03-19-2023 ambulatory DO Peter Ahumada Work Phone: [facility] Work Phone: Start: 03-19-2023 End: 03-19-2023 Patient encounter procedure DO Peter Ahumada Work Phone: [facility] [place] Work Phone: Start: 01-15-2023 End: 01-15-2023 ambulatory DO Peter Ahumada Work Phone: [facility] Work Phone: Start: 01-15-2023 End: 01-15-2023 Patient encounter procedure DO Peterluiza Ahumada Work Phone: [facility]-Ultrasound Cntr for Breast Car Start: 01-12-2023 End: 01-12-2023 ambulatory Peter Ahumada Other [employer] Other Start: 01-12-2023 Telephone encounter Peter Ahumada [facility] Start: 11-23-2022 End: 11-23-2022 Patient encounter procedure DO Peter Kuns Work Phone: [facility] [place] Work Phone: Start: 11-01-2022 End: 11-01-2022 Emergency department patient visit DO Peter Ahumada Work Phone: [facility]-Emergency Room Work Phone: Start: 10-31-2022 End: 10-31-2022 ambulatory DO Peter Ahumada Work Phone: [facility] Work Phone: Start: 10-31-2022 End: 10-31-2022 Patient encounter procedure DO Peter Ahumada Work Phone: [facility] [place] Work Phone: Start: 05-25-2022 End: 05-25-2022 Departed Referred DO Peter Ahumada Work Phone: [facility] Start: 05-25-2022 End: 05-25-2022 ambulatory DO Peter Blake Work Phone: [employer] Other Start: 05-25-2022 Office outpatient vi sit 15 minutes Peterluiza Shens [facility] Start: 04-24-2022 End: 04-24-2022 ambulatory Peterluiza Shens Other [employer] Other Start: 04-24-2022 Office outpatient vi sit 25 minutes Peter Acs [facility] Start: 04-19-2022 End: 04-19-2022 ambulatory DO Peterluiza Shens Work Phone: [facility] Work Phone: Start: 04-19-2022 End: 04-19-2022 Patient encounter procedure DO Peterluiza Shens Work Phone: [facility] [place] Start: 11-15-2021 End: 11-15-2021 ambulatory Peter Acs Other [employer] Other Start: 11-15-2021 Telephone encounter Peter Ahumada [facility] Start: 11-02-2021 End: 11-02-2021 ambulatory Peter Ahumada Other [employer] Other Start: 11-02-2021 Office outpatient vi sit 15 minutes Peter Ahumada [facility] Start: 10-17-2021 End: 10-17-2021 ambulatory Peter Ahumada Other [employer] Other Start: 10-17-2021 Office outpatient vi sit 25 minutes Peter Ahumada [facility] Start: 10-13-2021 End: 10-13-2021 Patient encounter procedure Kate Daniel MD Work Phone: General Surgery Comment on above: Liver pain (Primary Dx) Start: 04-20-2021 Office outpatient vi sit 25 minutes Peter Ahumada [facility] Start: 02-22-2021 End: 02-22-[address] PETER AHUMADA Facility: Start: 11-30-2020 End: 11-30-2020 Subsequent hospital visit by physician Carlos Baker 1 Work Phone: Radiology Comment on above: Closed nondisplaced fracture of proximal phalanx of left little finger, initial encounter [S62.647A] Start: 11-18-2020 End: 11-18-2020 Subsequent hospital visit by physician Carlos Baker 1 Work Phone: Radiology Comment on above: Closed nondisplaced fracture of proximal phalanx of left little finger, initial encounter [S62.698A] Procedures Date Procedure Procedure Detail Performing Clinician Start: 06-04-2024 XR pre/post mri xray Zaki Ahumada DO Work Phone: Start: 06-04-2024 MRI of left ankle Peter Ahumada DO Work Phone: Start: 05-22-2024 End: 05-22-2024 Needle emg ea extremty w/paraspinl area complete Rahul Castillo DO Work Phone: Start: 03-12-2024 US scan of gallbladder DO Peter Kira [facility] Work Phone: Start: 02-13-2024 Plain X-ray of right elbow DO Peter Kira [facility] Work Phone: Start: 01-29-2024 Repair of umbilical hernia DO Peter Kira [facility] Work Phone: Start: 01-14-2024 Plain X-ray of right elbow DO Peter Kira [employer] Work Phone: Start: 12-31-2023 Ultrasonography of abdomen DO Peter Kira [employer] Work Phone: Start: 12-28-2023 Plain X-ray of right elbow DO Peter Kira [facility] Work Phone: Start: 12-28-2023 X-ray of right knee DO Peter Kira [facility] Work Phone: Start: 12-17-2023 Plain X-ray of right clavicle DO Peter Kira [facility] Work Phone: Start: 12-17-2023 Plain X-ray of right forearm DO Peter Ahumada Work Phone: Start: 12-17-2023 Plain X-ray of right shoulder DO Peter Kira [facility] Work Phone: Start: 12-17-2023 X-ray of left knee DO Maribeth Ahumada Work Phone: Start: 12-03-2023 Screening mammograph y of bilateral breasts DO Peter Kira [facility] Work Phone: Start: 08-13-2023 Ultrasonography of l eft breast DO Peter Kira [facility] Work Phone: Start: 06-08-2023 Plain X-ray of left hip DO Peter Kira [facility] Work Phone: Start: 05-25-2023 X-ray of lumbar spin e, two or three views DO Peter Kira [employer] Work Phone: Start: 01-15-2023 Ultrasonography of l eft breast DO Peter Ahumada Work Phone: Start: 11-23-2022 Screening mammograph y of bilateral breasts DO Peter Ahumada Work Phone: Start: 11-23-2022 Pelvic echography DO Zaki Ahumada Work Phone: Start: 11-23-2022 Transvaginal echography DO Peter Ahumada Work Phone: Start: 11-01-2022 Computed tomography of abdomen and pelvis with contrast DO Peter Ahumada Work Phone: Start: 11-30-2020 Radex hand minimum 3 views Ishan D Yusuf DO Work Phone: Start: 11-18-2020 Radex hand minimum 3 views Ishan D Yusuf DO Work Phone: Plan of Treatment Date Care Activity Detail Author Start: 02-19-2028 Urine microalbumin profile DTa P,Tdap,Td Vaccine (2 - Td or Tdap) [facility] Start: 05-22-2024 End: 05-22-2024 Patient encounter procedure 05/22/2024 2:30 PM EDT Procedure Visit [facility] [address] [address] Rahul Castillo DO [address] [place] [id number] [facility] Comment on above: Arrived Start: 03-23-2024 Covid-19 Vaccine ( season) Covid-19 Vaccine ( season) [facility] Start: 03-23-2024 Influenza vaccination Influenz a Vaccine (#1) [facility] Start: 03-05-2024 [facility] Start: 02-13-2024 Plain X-ray of right elbow XR elbow RT 2V [facility] Start: 02-13-2024 XR Elbow - right 2 Views [facility] Start: 01-29-2024 [facility] Start: 01-29-2024 [facility] Start: 01-14-2024 Plain X-ray of right elbow XR elbow RT 2V [facility] Start: 01-14-2024 XR Elbow - right 2 Views [facility] Start: 12-31-2023 Patient referral [facility] Work Phone: Start: 2022 Screening for malign ant neoplasm of breast Mammogram Screening [facility] Start: 03-23-2021 Influenza vaccination INFLUENZA (#1) [facility] Start: 2012 HPV TESTING HPV TESTING [facility] Start: 2003 PAP TESTING PAP TESTING [facility] Start: 2003 Screening for malign ant neoplasm of cervix Cervical Cancer Screening [facility] Start: 2001 Hepatitis B Vaccine (1 of 3 - 19+ 3-dose series) Hepatitis B Vaccine (1 of 3 - 19+ 3-dose series) [facility] Start: 2001 Urine microalbumin profile DTA P,TDAP,TD (1 - Tdap) [facility] Start: 2000 Anxiety Screening Anxiety Screening [facility] Start: 2000 Depression Screening Depression Scre [facility] Start: 2000 HEPATITIS C SCREENING HEPATITIS C [facility] Start: 2000 Hepatitis C screening Hepatitis C [facility] Start: 2000 HIV SCREENING HIV SCREENING [facility] Start: 2000 HIV screening HIV Screening [facility] Start: 1994 Adult depression [facility] assessment DEPRESSION SCREENING [facility] Start: 1987 COVID-19 VACCINE (1) COVID-19 VACCIN E (1) [facility] Comprehensive metabo lic 1999 panel - Serum or Plasma [facility] Comprehensive metabo lic 1999 panel - Serum or Plasma [facility] Glucose measurement estimated from glycated hemoglobin [facility] Patient Education [facility] Work Phone: Patient referral [facility] Work Phone: RF Gastrointestinal tract upper Single view W air contrast PO [facility] US Gallbladder [facility] XR Elbow - right GE 3 Views [facility] Immunizations Immunization Date Immunization Notes Care Provider Ophelia christianson 12-17-2023 tetanus toxoid, reduced diphtheria toxoid, and acellular pertussis vaccine, adsorbed DO Peter Ahumada Work Phone: [facility] 06-07-2022 influenza, injectable, quadrivalent, preservative free Peter Ahumada Other [facility] 04-09-2020 influenza, seasonal, injectable Peter Shens Other [employer] Other 03-10-2019 influenza, seasonal, injectable Patient Objection Peter Ahumada Other [employer] Other 02-18-2018 tetanus toxoid, reduced diphtheria toxoid, and acellular pertussis vaccine, adsorbed Peter Ahumada Other [facility] NEGATED: Highlighted row has not occurred!06-07-2022 influenza, seasonal, injectable Patient Objection Peter Ahumada Other [employer] Other NEGATED: Highlighted row has not occurred!04-09-2020 influenza, seasonal, injectable Peter Shens Other [employer] Other NEGATED: Highlighted row has not occurred!03-10-2019 influenza, seasonal, injectable Patient Objection Peter Ahumada Other [employer] Other Payers Date Payer Category Payer Self-pay [id number] 2018 Medicaid [employer] [id number] 2018-Present [phone] [address] [place] [address] Medicaid [id number] 2018 Medicaid [facility] [id number] 2018-2022 [address] [place] [address] Medicaid [id number] 2018 Private Health Insurance [facility] MEDICAID [id number] 2018 Medicaid [id number] 1982 Unknown [id number] 2..[id number] .593 1982 Unknown [id number] 2..840.1.896997.3.579.2 .1258 1982 Unknown [id number] 2..840.1.847415.3.579.2 .1258 1982 Unknown [id number] 2.16.840.1.813105.3.579.2 .1258 1982 Unknown [id number] 2.16.840.1.084394.3.579.2 .1258 1982 Unknown [id number] 2.16.840.1.978270.3.579.2 .1259 1959 Unknown [id number] Unknown [id number] Unknown [id number] 2.16.840.1.902991.3.579.2 .531 Unknown [id number] 2.16.840.1.373045.3.579.2 .531 Unknown [id number] 2.16.840.1.103529.3.579.2 .531 Unknown [id number] 2.16.840.1.801665.3.579.2 .531 Unknown [id number] 2.16.840.1.372196.3.579.2 .531 Unknown [id number] 2.16.840.1.316304.3.579.2 .531 Unknown [id number] 2.16.840.1.937850.3.579.2 .531 Unknown [id number] 2.16.840.1.099574.3.579.2 .531 Unknown [id number] 2.16.840.1.745704.3.579.2 .531 Unknown [id number] 2.16.840.1.004796.3.579.2 .531 Unknown [id number] 2.16.840.1.267229.3.579.2 .531 Unknown [id number] 2.16.840.1.430159.3.579.2 .531 Unknown [id number] 2.16.840.1.010169.3.579.2 .531 Unknown [id number] 2.16.840.1.746332.3.579.2 .531 Social History Date Type Detail Facility Start: 03-03-2021 End: 03-06-2024 Tobacco smoking status NHIS Ex-smoker [facility] Work Phone: End: 06-22-2006 History of tobacco use Current smoker [facility] Work Phone: Start: 03-03-2021 End: 01-03-2024 Tobacco use and exposure Smokeless tobacco non-user [facility] Work Phone: Start: 10-13-2021 Alcohol intake Current drinker of alcohol (finding) [facility] Start: 03-03-2021 History SDOH Alcohol Comment occ [facility] Start: 03-03-2021 Tobacco Comment Smoked 1 pack a week, quit in 2005, can't remember start date [facility] Start: 1980 Sex Assigned At Not on file [facility] Start: 06-30-2020 End: 01-03-2024 Sex Assigned At [employer] Other Start: 11-25-2015 End: 02-15-2021 Tobacco smoking status NHIS Never smoked tobacco (finding) [facility] Start: 1980 Sex Assigned At Female [facility] Start: 11-25-2015 Alcoholic beverage intake Not Asked [facility] Start: 06-30-2020 End: 01-03-2024 History of Social function [facility] National Score (1-10 0), lower number is lower risk Not on file [facility] Start: 10-19-2020 End: 11-30-2020 Exposure to SARS-CoV-2 (event) Not sure [facility] End: 06-22-2006 History of tobacco use Cigarette Smoker [facility] Start: 02-04-2024 Alcoholic beverage intake Ex-drinker (finding) [facility] Start: 01-25-2023 Tobacco Comment Quit smoking 10 years ago [facility] Start: 01-25-2023 Alcohol Comment caffeine 1-2 cups/day [facility] Start: 01-18-2023 Gender identity Identifies as female gender (finding) [facility] Start: 01-18-2023 Sexual orientation Heterosexual (finding) [facility] Start: 06-05-2024 End: 06-10-2024 Sex Female (finding) [facility] Medical Equipment Procedure Code Equipment Code Equipment Origin al Text Equipment Identifier Dates Repair, hernia, umbilical MESH FLAT SHEET [id number] FDA Start: 04-24-2017 Repair, hernia, umbilical MESH FLAT SHEET 7.5X15CM FDA Start: 04-24-2017 Repair, hernia, umbilical MESH FLAT SHEET 7.5X15CM FDA Start: 04-24-2017 Repair, hernia, umbilical MESH FLAT SHEET 7.5X15CM FDA Start: 04-24-2017 Repair, hernia, umbilical MESH FLAT SHEET 7.5X15CM FDA Start: 04-24-2017 Repair, hernia, umbilical MESH FLAT SHEET 7.5X15CM FDA Start: 04-24-2017 Repair, hernia, umbilical MESH FLAT SHEET 7.5X15CM FDA Start: 04-24-2017 Repair, hernia, umbilical MESH FLAT SHEET 7.5X15CM FDA Start: 04-24-2017 Repair, hernia, umbilical MESH FLAT SHEET 7.5X15CM FDA Start: 04-24-2017 Repair, hernia, umbilical MESH FLAT SHEET 7.5X15CM FDA Start: 04-24-2017 Repair, hernia, umbilical MESH FLAT SHEET 7.5X15CM FDA Start: 04-24-2017 Repair, hernia, umbilical MESH FLAT SHEET 7.5X15CM FDA Start: 04-24-2017 Repair, hernia, umbilical MESH FLAT SHEET 7.5X15CM FDA Start: 04-24-2017 Repair, hernia, umbilical MESH FLAT SHEET 7.5X15CM FDA Start: 04-24-2017 Repair, hernia, umbilical MESH FLAT SHEET 7.5X15CM FDA Start: 04-24-2017 Repair, hernia, umbilical MESH FLAT SHEET 7.5X15CM FDA Start: 04-24-2017 Repair, hernia, umbilical MESH FLAT SHEET 7.5X15CM FDA Start: 04-24-2017 Repair, hernia, umbilical MESH FLAT SHEET 7.5X15CM FDA Start: 04-24-2017 Repair, hernia, umbilical MESH FLAT SHEET 7.5X15CM FDA Start: 04-24-2017 Repair, hernia, umbilical MESH FLAT SHEET 7.5X15CM FDA Start: 04-24-2017 Repair, hernia, umbilical MESH FLAT SHEET 7.5X15CM FDA Start: 04-24-2017 Repair, hernia, umbilical MESH FLAT SHEET 7.5X15CM FDA Start: 04-24-2017 Repair, hernia, umbilical MESH FLAT SHEET 7.5X15CM FDA Start: 04-24-2017 Repair, hernia, umbilical MESH FLAT SHEET 7.5X15CM FDA Start: 04-24-2017 Repair, hernia, umbilical MESH FLAT SHEET 7.5X15CM FDA Start: 04-24-2017 Repair, hernia, umbilical MESH FLAT SHEET 7.5X15CM FDA Start: 04-24-2017 Repair, hernia, umbilical MESH FLAT SHEET 7.5X15CM FDA Start: 04-24-2017 Repair, hernia, umbilical MESH FLAT SHEET 7.5X15CM FDA Start: 04-24-2017 Goals Date Patient Goal Desired Activity /State Clinical Notes 11-04-2020 to 05-22-2024 CESAR Rich - 05/22/2024 2:30 PM EDT Note Date & Type Note Facility 05-22-2024 History of Presen t illness Narrative Images from the original note were not included. Reason for Appointment: EMG Patient: Darling Khanna : 1980 EMG Computer: [employer] Referring Physician: Dr. 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 No hx of DM. Not on blood thinners. Comments: Procedure was explained to the patient who expressed understanding. Patient appeared to have tolerated the test well despite some discomfort due to the nature of the test. documented in this encounter [facility] 03-06-2024 Evaluation note Authored March 06, 2024 2: 47pm The above note written by Thuan STRINGER acting as human recorder, note dictated by Dr.Bryan Ahumada. [facility] Work Phone: [phone] 464-694901-22-2024 Evaluation note* Encounter Date Diagnosis Assessment Notes Treatment Notes Treatment Clinical Notes Jul, Abnormal mammogram of left breast (ICD-10 - R92.8) [facility] [employer] Other 01-15-2024 Evaluation note* Encounter Date Diagnosis Assessment Notes Treatment Notes Treatment Clinical Notes Jul, Abnormal mammogram (ICD-10 - R92.8) [facility] Other 11-17-2023 Evaluation note* Encounter Date Diagnosis Assessment Notes Treatment Notes Treatment Clinical Notes May, Hypothyroidism (ICD-10 - E03.9) I have reviewed recent lab results with patient and her levels are normal. No changes warranted. Continue with current meds as ordered. Refill provided May, DDD (degenerative disc disease), lumbosacral (ICD-10 - M51.37) I have reviewed recent imaging that does reveal L-S DDD and arthritis of the SI joints as well. I have educated patient that she needs to stretch before any type of activity. Increase her activity as tolerated. I will refill the Tramadol and provide her with course of prednisone to have on hand. I have educated her on how to take and taper the dose. Voiced understanding May, Left hip pain (ICD-10 - M25.552) Patient continues to have left hip pain in spite of the tramadol and prednisone use. I will order xray to be done today and I will call her with that report May, Lower extremity edema (ICD-10 - R60.0) Electrolytes and renal function are normal. She may continue with current meds as needed May, Hyperlipidemia (ICD-10 - E78.5) I have reviewed all lab results with patient today. Her lipids are stable. Liver enzymes are normal. Blood count is good. Remainder of chemestries are within normal limits May, Prediabetes (ICD-10 - R73.03) A1C is stable at 6.0 I have stressed importance of weight loss and diet modification. May, Acute bronchitis (ICD-10 - J20.9) [employer] Other 11-02-2023 Evaluation note* Encounter Date Diagnosis Assessment Notes Treatment Notes Treatment Clinical Notes May, Left lumbar radiculopathy (ICD-10 - M54.16) Pt denies any pain with straight leg raises, and has normal ROM. She does have some pain with palpation. I do recommend a new xray, and advised the one she had at the chiropractor was not read by a radiologist. She was agreeable to this. I also provided her with a burst of steroids. She is to wait to take these until after she gets her blood work done. We will continue to monitor. May, Acute bronchitis (ICD-10 - J20.9) Pt does still have some wheezing from her recent acute illness, though her cough has mostly resolved. A refill was provided for them today. I advised the steroids will help her breathing as well. She was also provided with antibiotics. We will continue to monitor. May, Ventral hernia (ICD-10 - K43.9) May, Change in bowel habits (ICD-10 - R19.4) I recommend pt try probiotics. May, Hypothyroidism (ICD-10 - E03.9) Labs ordered today. Pt is to continue the above medication. May, Hyperlipidemia (ICD-10 - E78.5) Labs ordered today. Encouraged to watch diet and increase exercise regimen; we will continue to monitor. May, Hyperglycemia (ICD-1 0 - R73.9) Labs ordered today. Encouraged to watch diet and increase exercise regimen; we will continue to monitor. [employer] Other 08-30-2023 Evaluation note* Encounter Date Diagnosis Assessment Notes Treatment Notes Treatment Clinical Notes Feb, Hypothyroidism (ICD-10 - E03.9) Current lab results reviewed with patient today and her levels are in the low normal range. She is still complaining of some increased fatigue. Because of the low normal levels and she is symptomatic, I will increase the synthroid up to 88 mcg daily and recheck her levels in about 3 months. She is in agreement with this plan of care. Feb, GERD (gastroesophageal reflux disease) (ICD-10 - K21.9) Acid reflux is well controlled with current medication regimen. Encouraged to work on weight loss and continue with diet modification. Refill provided Feb, Hx of fibrocystic disease of breast (ICD-10 - Z87.898) Patient is under the care of Dr. Haines for her breast care and encouraged to continue with follow up appointments as scheduled and continue with monthly SBE Feb, Bug bite, initial encounter (ICD-10 - W57.XXXA) Patient has multiple mosquito bites on her legs and hands. Betamethasone valerate cream has been ordered to use for allergic reaction. [employer] Other 06-23-2023 Evaluation note* Encounter Date Diagnosis Assessment Notes Treatment Notes Treatment Clinical Notes Dec, Mass of upper outer quadrant of left breast (ICD-10 - N63.21) [employer] Other 11-03-2022 Evaluation note* Encounter Date Diagnosis Assessment Notes Treatment Notes Treatment Clinical Notes May, Neoplasm of uncertain behavior of skin (ICD-10 - D48.5) Patient does have multiple suspicious lesions that have changed in size and shape and are red and inflamed. One 1.5cm lesion excised from the upper left posterior arm, and two other lesions 2.1 cm in size removed via shave from both the midline chest and left scapula. She tolerated the procedure well. All lesions were sent to the lab to determine pathology. [employer] Other 10-03-2022 Evaluation note* Encounter Date Diagnosis Assessment Notes Treatment Notes Treatment Clinical Notes Apr, Hypothyroidism (ICD-10 - E03.9) Blood work results reviewed with the patient. Metabolic ,kidney functions ,liver enzmes and cholesterol levels are within normal range. TSH and Free 4 are in balance. Pt is to continue with the above medication and we will continue to monitor. Apr, GERD (gastroesophageal reflux disease) (ICD-10 - K21.9) GERD is well controlled on the above medication. Pt is to continue with the above medication and we will continue to monitor. Apr, Heavy menses (ICD-10 - N92.0) RBC is within normal range with no signs of anemia upon review of blood work results. Pt is to continue with the above medication and we will continue to monitor. Apr, Dermatofibroma (ICD-10 - D23.9) Bilateral lower extremity lesions removed in the office on 11/02/21 are noted to be dermatofibroma upon review of pathology report. Apr, Seborrheic keratoses (ICD-10 - L82.1) Pathology report reviewed noting the lesion of the left scalp excised in the office 11/02/21 was a seborrheic keratoses. Apr, Neoplasm of uncertain behavior of skin (ICD-10 - D48.5) The patient complains of a lesion midline chest that she states started out a freckle that with sun exposure has become larger and raised measuring 2.1 cm . Discussion was had this appears to likely be low risk for skin cancer but I do recommend she have the lesion removed due to the size by shave biopsy . The patient also has a second lesion on the upper left posterior extremity measuring 1.5 cm that appears to be an inclusion cyst that I will remove by excisional biopsy. Apr, Hyperlipidemia (ICD-10 - E78.5) [employer] Other 04-13-2022 Evaluation note* Encounter Date Diagnosis Assessment Notes Treatment Notes Treatment Clinical Notes Oct, Neoplasm of uncertain behavior of skin (ICD-10 - D48.5) The patient does have three lesions located on her left lateral calf, right upper thigh, and left vertex region of the scalp that are red, inflammed, and are abnormally shaped that were removed via shave and sent for pathology. [employer] Other 03-28-2022 Evaluation note* Encounter Date Diagnosis Assessment Notes Treatment Notes Treatment Clinical Notes Sep, Hypothyroidism (ICD-10 - E03.9) Patient does complain of fatigue and weight gain. Patient is to continue on the above medication. Labs ordered to be drawn. Sep, GERD (gastroesophageal reflux disease) (ICD-10 - K21.9) Sep, Chest pain (ICD-10 - R07.9) In house EKG performed and reviewed with normal results. Patient admits to intermittent chest pain with palpitations. Patient states that this past week was more frequent. Denies any exercise or activity, mostly when eating. Patient is to stay cognitive of symptoms, to call if worsens. Sep, Neoplasm of uncertai n behavior (ICD-10 - D48.9) Patient complains of a small area on the left side of the scalp. I did remove this at an earlier date which came back a seborrheic keratoses. This is not a cyst but an actual surface area. This measure 1.2 cm in size Patient does have hard, round area on the left calf, this measures 1.0 cm, these will be removed by shave bx.. Patient has another lesion on the right thigh which measures around 1.o cm. These both appear to be hard, pimple like. Sep, Liver lesion (ICD-10 - K76.9) Patient is to continue to follow with specialist. Sep, Fatigue (ICD-10 - R53.83) Labs ordered to rule out any abnormality Sep, Hyperlipidemia (ICD-10 - E78.5) Sep, Skin tag (ICD-10 - L91.8) Patient has 2 small skin tags located next to the left eye. One under the right eye. These will be removed with hyfrecator. [employer] Other 03-24-2022 NoteHNO ID: [id number] Author: Kate Daniel MD Service: ? Author Type: Physician Type: Progress Notes Filed: 10/17/2021 1:50 PM Note Text: Assessment ESTABLISHED PATIENT Darling Khanna is a 40 year old female with a right posterior liver subcapsular fluid collection ? 03/03/2021: Patient presented to [facility] on 02/08/2021 for 2 days for acute ride sided abdominal/flank pain, right shoulder discomfort and nausea. She was diagnosed with Klebsiella pneumoniae UTI and was discharged with oral keflex and zofran. Patient represented to ER on 02/09/2021 for the continued complaints of pain. ? Referral From:?PCP- Peter Ahumada, DO Reason:?right abdominal pain pain; liver?fluid collection? ? Received Records From:? 02/08/2021 ER Report [facility] 02/09/2021 ER Report [facility] 02/15/2021 PCP Office note ? Visited ER 4 times in the past month?with right sided?10/10?abdominal pain that used to radiating to the right shoulder and arm. ?She now has left sided arm pain. Pain will not resolve until she gets pain medicine.?No correlation with greasy/fatty food intake or other known triggers. Told she has fatty liver and liver lesion.?Diagnosed with pyelonephritis, completed course of antibiotics;?denies current?back pain, dysuria.?Overall, she feels this is gradually improving. US of ovaries yesterday at [facility]. Scheduled for upper GI at end of month. Gained?50 pounds since July?(was in [place] for 3 months, drank a lot); diagnosed with Hypothyroidism, taking Levothyroxine 75?mcg. Pt with history of diuretic use, stopped taking it, got?increase lower extremity edema. Restarted diuretic,?edema improved. However, her physician recommended she stop taking diuretic. ? 03/22/2021 [facility] Conference Final Consensus Recommendation(s): -?No clear etiology of right posterior subcapsular fluid collection - Fluid consistency is not consistent with a hematoma - No underlying masses or intrinsic liver pathology ? 04/07/2021: Pain is improved significantly since her last appointment. Additionally the radiation to her shoulders has also resolved. Still has some tenderness but is back at work and feeling okay about it. PAST MEDICAL HISTORY Diagnosis Date - Asthma - Pyelonephritis - UTI (urinary tract infection) PAST SURGICAL HISTORY Procedure Laterality Date - BX OF BREAST; INCISIONAL 2018 - PAST SURGICAL HISTORY OF jaw surgery for underbite - PAST SURGICAL HISTORY OF hernia repair PHYSICAL EXAMINATION: BP 112/55 (BP Site: Left Arm, BP Position: Sitting, BP Cuff Size: Large Adult) Pulse 68 Temp 36.5 ?C (97.7 ?F) Ht 182.9 cm (6') Wt 115.2 kg (254 lb) SpO2 97% BMI 34.45 kg/m? General Appearance: Well appearing, alert, in no acute distress, well-hydrated, well nourished.. Skin: Skin color, texture, turgor normal, no suspicious rashes or lesions. Abdomen: Normal abdominal exam, Abdomen soft, non-tender. Bowel sounds normal. No masses, organomegaly. IMPRESSION: Right upper quadrant tenderness PLAN: Overall appetite is doing well. She did spend 3 months in [place] and did not have any issues, hospitalizations or other problems. She is here today for routine visit but just complains of tenderness when she pushes on the right side. No pain otherwise. No right upper quadrant pain or tenderness. On examination the tenderness appears to be in the area of her right lateral chest wall. It is mild. She will see me back as needed. I spent a total of 20 minutes on the date of the service which included preparing to see the patient, [id number] patient care and completing clinical documentation. Kate Daniel [facility]03-24-2022 Nurse Note* Jayne Aguila Ma - 10/13/2021 1:32 PM EDT What is the reason for your visit today? Follow up Who is your referring physician? Are you having poor oral intake? NO Have you had unintentional weight loss of 15 lbs/7 Kg in the last 3-6 months? NO Bowels: regular Wound: Temperature: No Drains: No [facility] History of Present illness Narrative* Kate Daniel MD - 10/13/2021 1:30 PM EDT Assessment ESTABLISHED PATIENT Darling Khanna is a 40 year old female with a right posterior liver subcapsular fluid collection 03/03/2021: Patient presented to [facility] on 02/08/2021 for 2 days for acute ride sided abdominal/flank pain, right shoulder discomfort and nausea. She was diagnosed with Klebsiella pneumoniae UTI and was discharged with oral keflex and zofran. Patient represented to ER on 02/09/2021 for the continued complaints of pain. Referral From: PCP- Peter Ahumada DO Reason: right abdominal pain pain; liver fluid collection Received Records From: 02/08/2021 ER Report [facility] 02/09/2021 ER Report [facility] 02/15/2021 PCP Office note Visited ER 4 times in the past month with right sided 10/10 abdominal pain that used to radiating to the right shoulder and arm. She now has left sided arm pain. Pain will not resolve until she gets pain medicine. No correlation with greasy/fatty food intake or other known triggers. Told she has fatty liver and liver lesion. Diagnosed with pyelonephritis, completed course of antibiotics; denies current back pain, dysuria. Overall, she feels this is gradually improving. US of ovaries yesterday at [facility]. Scheduled for upper GI at end of month. Gained 50 pounds since July (was in [place] for 3 months, drank a lot); diagnosed with Hypothyroidism, taking Levothyroxine 75 mcg. Pt with history of diuretic use, stopped taking it, got increase lower extremity edema. Restarted diuretic, edema improved. However, her physician recommended she stop taking diuretic. 03/22/2021 HPB Conference Final Consensus Recommendation(s): - No clear etiology of right posterior subcapsular fluid collection - Fluid consistency is not consistent with a hematoma - No underlying masses or intrinsic liver pathology 04/07/2021: Pain is improved significantly since her last appointment. Additionally the radiation toher shoulders has also resolved. Still has some tenderness but is back at work and feeling okay about it. PAST MEDICAL HISTORY Diagnosis Date Asthma Pyelonephritis UTI (urinary tract infection) PAST SURGICAL HISTORY Procedure Laterality Date BX OF BREAST; INCISIONAL 2018 PAST SURGICAL HISTORY OF jaw surgery for underbite PAST SURGICAL HISTORY OF hernia repair PHYSICAL EXAMINATION: BP 112/55 (BP Site: Left Arm, BP Position: Sitting, BP Cuff Size: Large Adult) Pulse 68 Temp 36.5 C (97.7 F) Ht 182.9 cm (6') Wt 115.2 kg (254 lb) SpO2 97% BMI 34.45 kg/m General Appearance: Well appearing, alert, in no acute distress, well-hydrated, well nourished.. Skin: Skin color, texture, turgor normal, no suspicious rashes or lesions. Abdomen: Normal abdominal exam, Abdomen soft, non-tender. Bowel sounds normal. No masses, organomegaly. IMPRESSION: Right upper quadrant tenderness PLAN: Overall appetite is doing well. She did spend 3 months in [place] and did not have any issues, hospitalizations or other problems. She is here today for routine visit but just complains of tendernesswhen she pushes on the right side. No pain otherwise. No right upper quadrant pain or tenderness. On examination the tenderness appears to be in the area of her right lateral chest wall. It is mild. She will see me back as needed. I spent a total of 20 minutes on the date of the service which included preparing to see the patient, [id number] patient care and completing clinical documentation. Kate Daniel MD documented in this encounter[facility]-29[facility] Evaluation note* Encounter Date Diagnosis Assessment Notes Treatment Notes Treatment Clinical Notes Mar, Liver lesion (ICD-10 - K76.9) Encouraged patient to follow with Dr. Daniel as scheduled. She states he advised her that her pain would likely take longer to resolve. She admits she stopped drinking alcohol and has been dieting. Encouraged her to take it easy to allow this to heal. Mar, Arm pain, left (ICD-10 - M79.602) Patient reports that her pain has resolved after using the pennsaid but states her pain returned after shooting guns this past sunday. If her pain persists, we will consider imaging. We will continue to monitor. Mar, GERD (gastroesophageal reflux disease) (ICD-10 - K21.9) Refill provided. Mar, BMI 31.0-31.9,adult (ICD-10 - Z68.31) Patient presents today with a 9lb weight loss since starting a dieting plan called [employer]. Encouraged her to continue monitoring her diet as she voices a goal of getting under 200lbs. We will continue to monitor. [employer] Other 09-16-2021 NoteHNO ID: [id number] Author: Kate Daniel MD Service: ? Author Type: Physician Type: Progress Notes Filed: 04/11/2021 3:19 PM Note Text: Assessment ESTABLISHED PATIENT Darling Khanna is a 40 year old female with a right posterior liver subcapsular fluid collection 03/03/2021: Patient presented to [facility] on 02/08/2021 for 2 days for acute ride sided abdominal/flank pain, right shoulder discomfort and nausea. She was diagnosed with Klebsiella pneumoniae UTI and was discharged with oral keflex and zofran. Patient represented to ER on 02/09/2021 for the continued complaints of pain. ? Referral From:?PCP- Peter Ahumada, DO Reason:?right abdominal pain pain; liver?fluid collection? ? Received Records From:? 02/08/2021 ER Report [facility] 02/09/2021 ER Report [facility] 02/15/2021 PCP Office note ? Visited ER 4 times in the past month with right sided 10/10 abdominal pain that used to radiating to the right shoulder and arm. She now has left sided arm pain. Pain will not resolve until she gets pain medicine. No correlation with greasy/fatty food intake or other known triggers. Told she has fatty liver and liver lesion. Diagnosed with pyelonephritis, completed course of antibiotics; denies current back pain, dysuria. Overall, she feels this is gradually improving. US of ovaries yesterday at [facility]. Scheduled for upper GI at end of month. Gained 50 pounds since July (was in [place] for 3 months, drank a lot); diagnosed with Hypothyroidism, taking Levothyroxine 75 mcg. Pt with history of diuretic use, stopped taking it, got increase lower extremity edema. Restarted diuretic, edema improved. However, her physician recommended she stop taking diuretic. 03/22/2021 [facility]B Conference Final Consensus Recommendation(s): - No clear etiology of right posterior subcapsular fluid collection - Fluid consistency is not consistent with a hematoma - No underlying masses or intrinsic liver pathology 04/07/2021: Pain is improved significantly since her last appointment. Additionally the radiation to her shoulders has also resolved. Still has some tenderness but is back at work and feeling okay about it. PAST MEDICAL HISTORY Diagnosis Date - Asthma - Pyelonephritis - UTI (urinary tract infection) PAST SURGICAL HISTORY Procedure Laterality Date - BX OF BREAST; INCISIONAL 2018 - PAST SURGICAL HISTORY OF jaw surgery for underbite - PAST SURGICAL HISTORY OF hernia repair PHYSICAL EXAMINATION: BP 136/77 (BP Site: Right Arm, BP Position: Sitting, BP Cuff Size: Regular Adult) Pulse 95 Temp 36.4 ?C (97.5 ?F) Ht 182.9 cm (6') Wt 109.3 kg (241 lb) SpO2 95% BMI 32.69 kg/m? General appearance: Well appearing, alert, in no acute distress, well-hydrated, well nourished. Abdomen: Soft nontender nondistended IMPRESSION: Subcapsular fluid collection PLAN: Patient is doing well from a clinical standpoint. Continue present care. Follow-up in 3 to 6-month. I spent a total of 10 minutes on the date of the service which included preparing to see the patient, [id number] patient care and completing clinical documentation. Kate Daniel, [facility]09-01-2021 NoteHNO ID: [id number] Author: William De León MD Service: ? Author Type: Fellow Type: Progress Notes Filed: 03/23/2021 7:25 AM Note Text: Multidisciplinary Hepatopancreatobiliary AND Upper GI Case Conference -- Consensus Note -- Conference Date: 03/22/2021 Case reviewed with physicians from GI, Surgery, AND Radiology services: -- Surgeons - Lexii Oconnell Augustin -- Gastroenterologists - Baldev Antonio -- Radiologist - Radha Issue(s) Question(s): - 40 y/o female with spontaneous development of right flank and right upper abdominal pain in January 2021 - Serial imaging demonstrated development of a right posterior liver capsular fluid collection of unclear etiology - Any evidence to suggest a subcapsular hematoma, underlying mass, or other imaging findings to suggest etiology Pre-conference plan (from [employer]): - Observation and serial imaging Imaging Review: - January 2021 - CT Abd/Pelvis and MRI Final Consensus Recommendation(s): - No clear etiology of right posterior subcapsular fluid collection - Fluid consistency is not consistent with a hematoma - No underlying masses or intrinsic liver pathology Final recommendation(s) differ from pre-conference plan? (Y/N) - No William De León MD [facility] Surgical Fellow [facility]-12-2021 NoteHNO ID: [id number] Author: Kate Daniel MD Service: ? Author Type: Physician Type: Progress Notes Filed: 03/07/2021 7:33 PM Note Text: Assessment NEW LIVER CONSULT PATIENT NAME: Darling Khanna REASON FOR CONSULT: Abdominal pain with radiation to right and left shoulder REQUESTING PHYSICIAN: Dr. Ahumada DATE of SERVICE: 03/02/2021 TIME of SERVICE: 9:09 AM PCP: Peter Ahumada DO Chief Complaint: Liver mass, abdominal pain HPI: Darling Khanna is a 40 year old female Patient presented to [facility] on 02/08/2021 for 2 days for acute ride sided abdominal/flank pain, right shoulder discomfort and nausea. She was diagnosed with Klebsiella pneumoniae UTI and was discharged with oral keflex and zofran. Patient represented to ER on 02/09/2021 for the continued complaints of pain. ? Referral From: PCP- Peter Ahumada DO Reason: right abdominal pain pain; liver fluid collection ? Received Records From: 02/08/2021 ER Report [facility] 02/09/2021 ER Report [facility] 02/15/2021 PCP Office note Visited ER 4 times in the past month with right sided 10/10 abdominal pain that used to radiating to the right shoulder and arm. She now has left sided arm pain. Pain will not resolve until she gets pain medicine. No correlation with greasy/fatty food intake or other known triggers. Told she has fatty liver and liver lesion. Diagnosed with pyelonephritis, completed course of antibiotics; denies current back pain, dysuria. Overall, she feels this is gradually improving. US of ovaries yesterday at [facility]. Scheduled for upper GI at end of month. Gained 50 pounds since July (was in [place] for 3 months, drank a lot); diagnosed with Hypothyroidism, taking Levothyroxine 75 mcg. Pt with history of diuretic use, stopped taking it, got increase lower extremity edema. Restarted diuretic, edema improved. However, her physician recommended she stop taking diuretic. History of: Abdominal pain:Yes Nausea/Vomitting:No - only once, after taking Dilaudid Hematemesis: No Bleeding per rectum:No Loss of appetite:No Diarrhea:Yes - intermittent, 4-5 times weekly Jaundice:No Pruritis:No Pale colored stools: Yes H/O Cholangitis:No Anemia: No Weight loss:No H/O inflammatory bowel disease:No H/O primary sclerosing cholangitis:No H/O blood transfusion or trauma: No H/O IVDU :No H/O Hepatitis:No H/O Cirrhosis:No Family history of pancreas/liver/biliary cancer:No PSHx: Breasts cysts removed ( 1 was good, 1 was bad, pt does not think it was malignant. [facility]en by Dr. Haines on [facility], in [facility]; denies chemotherapy or radiation. Hernia repair Social Hx: Denies tobacco use, quit smoking in 2005, 1 pack a week, can't remember how long Alcohol 1-2 drinks per week, but stopped since February 08 Illicit drug use: Denies Family Hx: Denies history of liver/biliary disease, or cancer PAST MEDICAL HISTORY: PAST MEDICAL HISTORY Diagnosis Date - Asthma - Pyelonephritis - UTI (urinary tract infection) PAST SURGICAL HISTORY: PAST SURGICAL HISTORY Procedure Laterality Date - BX OF BREAST; INCISIONAL 2018 - PAST SURGICAL HISTORY OF jaw surgery for underbite - PAST SURGICAL HISTORY OF hernia repair FAMILY HISTORY: No family history on file. SOCIAL HISTORY: Social History Tobacco Use - Smoking status: Former Smoker Quit date: 2005 Years since quittin.6 - Smokeless tobacco: Never Used - Tobacco comment: Smoked 1 pack a week, quit in 2005, can't remember start date Substance Use Topics - Alcohol use: Yes Comment: occ - Drug use: Never COMPLETE REVIEW OF SYSTEMS Constitutional--Negative for fevers, chills, fatigue. unintentional weight loss. Has gained 50 pounds since July. Cardiovascular--Negative for orthopnea, PND Gastrointestinal--See HPI Pulmonary--Positive intermittent dyspnea couple times a week (this increased recently) history of asthma, negative for cough or hemoptysis : No history of dysuria, frequency or incontinence A 10 point review of systems was otherwise negative PHYSICAL EXAMINATION: BP 128/85 (BP Site: Right Arm, BP Position: Sitting, BP Cuff Size: Large Adult) Pulse 82 Temp 36.8 ?C (98.3 ?F) Ht 182.9 cm (6') Wt 112 kg (247 lb) SpO2 96% BMI 33.50 kg/m? General appearance: Well appearing, alert, in no acute distress, well-hydrated, well nourished. Psych: Appropriate affect, alert and oriented to person, place and time Skin: No suspicious rashes or lesions Head: Normocephalic, no masses, lesions,or abnormalities Eyes: Anicteric sclera. Extraocular movements are intact. Oropharynx: Lips, mucosa, and tongue normal, teeth and gums normal, oropharynx normal Neck: Supple, no adenopathy; tenderness on left side of neck Lungs: Lungs clear to auscultation. No wheezing, rhonchi, rales Heart: Regular rate and rhythm. Abdomen: Abdomen so (more content not included)...[facility] 12-28-2020 NoteHNO ID: [id number] Author: Tracey Hair Ma Service: ? Author Type: ? Type: Progress Notes Filed: 12/28/2020 4:25 PM Note Text: Dispensed XL/XXL Reaction brace for the Right knee. Dispensed by [employer] Director. Instructions were given on application/adjustments. She will f/u as scheduled/prn. Tracey Hair MA,[facility] 12-28-2020 NoteHNO ID: [id number] Author: Ishan Yusuf, DO Service: ? Author Type: Physician Type: Progress Notes Filed: 12/28/2020 3:40 PM Note Text: Darling Khanna is a patient of Peter Ahumada MD. CHIEF COMPLAINT: Darling Khanna is a 40 year old female who presents today for follow up of left finger. HISTORY OF PRESENT ILLNESS: Notes improvement in pain in the left little finger Has been unable to get to OT due to work schedule and a cancellation by provider Also complains of right knee pain Complains of anterior knee pain Worse as she is constantly on her feet SOCIAL HISTORY: Tobacco Use: Never PHYSICAL EXAMINATION: Specific MSK Exam No TTP over the fifth proximal phalanx Slight improvement in finger flexion No effusion of the right knee Mild patellofemoral crepitance felt IMAGING: No imaging was performed today. CLINICAL IMPRESSION / ASSESSMENT: (S62.647D) Closed nondisplaced fracture of proximal phalanx of left little finger with routine healing, subsequent encounter (primary encounter diagnosis) (M25.561) Patellofemoral arthralgia of right knee PLAN: She will set up with OT closer to her house at this time Continue ROM, activities as tolerated Discussed options for the right knee Will try a reaction knee brace to wear at work Consider formal PT if not improving Procedures Ishan Yusuf [facility]05-11-2021 NoteHNO ID: [id number] Author: Ishan Yusuf, DO Service: ? Author Type: Physician Type: Progress Notes Filed: 11/30/2020 4:20 PM Note Text: Darling Khanna is a patient of Peter Ahumada MD. CHIEF COMPLAINT: Darling Khanna is a 40 year old female who presents today for follow up of left hand, little finger. HISTORY OF PRESENT ILLNESS: PAIN EVALUATION 11/30/2020 1551 Pain Level: 1 Pain Location: Hand-Left Description: Aching;Sore;Dull Duration Units: Weeks Frequency: Intermittent Intervention: Reposition;Relaxation Notes improvement in the left little finger Has been using the splint SOCIAL HISTORY: Tobacco Use: Never PHYSICAL EXAMINATION: Specific MSK Exam no specific tenderness No change in swelling Continued stiffness with motion IMAGING: Final results and radiologist's interpretation, available in the [facility] health record. Images were reviewed with the patient/family members in the office today. My personal interpretation of the performed imaging is healing proximal phalanx fracture CLINICAL IMPRESSION / ASSESSMENT: (S62.792A) Closed nondisplaced fracture of proximal phalanx of left little finger, initial encounter (primary encounter diagnosis) PLAN: Start weaning out of the splint at this time Can start OT at this time ROM as tolerated Follow-up in 3-4 weeks Procedures Ishan Yusuf [facility]05-11-2021 NoteHNO ID: [id number] Author: RT Suzanna(R) Service: ? Author Type: Hospital Clinic Assistant Type: Progress Notes Filed: 11/30/2020 3:44 PM Note Text: Radiology Service Progress Note PATIENT NAME: Darling Khanna DATE OF SERVICE: November 30, 2020 TIME: 3:43 PM PATIENT IDENTITY VERIFICATION COMPLETED USING TWO (2) IDENTIFIERS: Name and Date of confirmed by patient verbally. FALL SCREENING: Has the patient had 2 falls in the last year or 1 fall with injury or currently using an Ambulatory Assistive Device (Walker, Cane, Wheelchair, Crutches, etc.)? No PATIENT GENDER DATA: Female. status: : No status: NO. PATIENT RELEVANT IMPLANT DATA REVIEWED: Yes RADIOLOGY DEPARTMENT: General X-ray: Exam(s) Completed: Upper Extremity X-Ray(s): Hand, left PERIPHERAL IV DATA: Not applicable SIGNED BY: RT Suzanna(R) November 30, 2020 3:43 [facility]04-29-2021 NoteHNO ID: [id number] Author: Lexus Villareal RT(R) Service: ? Author Type: Hospital Clinic Assistant Type: Progress Notes Filed: 11/18/2020 3:47 PM Note Text: Radiology Service Progress Note PATIENT NAME: Darling Khanna DATE OF SERVICE: November 18, 2020 TIME: 3:45 PM PATIENT IDENTITY VERIFICATION COMPLETED USING TWO (2) IDENTIFIERS: Name and Date of confirmed by patient verbally. FALL SCREENING: Has the patient had 2 falls in the last year or 1 fall with injury or currently using an Ambulatory Assistive Device (Walker, Cane, Wheelchair, Crutches, etc.)? No PATIENT GENDER DATA: Female. status: : No status: N/A PATIENT RELEVANT IMPLANT DATA REVIEWED: Not Applicable RADIOLOGY DEPARTMENT: General X-ray: Exam(s) Completed: Upper Extremity X-Ray(s): Hand, left PERIPHERAL IV DATA: Not applicable SIGNED BY: RT Victor M(R) November 18, 2020 3:45 [facility]04-29-2021 NoteHNO ID: [id number] Author: Ishan Yusuf, DO Service: ? Author Type: Physician Type: Progress Notes Filed: 11/18/2020 4:12 PM Note Text: Darling Khanna is a patient of Peter Ahumada MD. CHIEF COMPLAINT: Darling Khanna is a 40 year old female who presents today for follow up of left hand. HISTORY OF PRESENT ILLNESS: PAIN EVALUATION 11/18/2020 1544 Pain Level: 1 Pain Location: Hand-Left Description: Aching;Sore;Dull Duration Amount of Time: 3 Duration Units: Weeks Frequency: Intermittent Intervention: Reposition;Relaxation Notes some improvement in pain Denies any new injur SOCIAL HISTORY: Tobacco Use: Never PHYSICAL EXAMINATION: Specific MSK Exam decreased motion of the left little finger at PIP TTP over the proximal phalanx IMAGING: Final results and radiologist's interpretation, available in the [facility] health record. Images were reviewed with the patient/family members in the office today. My personal interpretation of the performed imaging is intra-articular proximal phalanx fracture CLINICAL IMPRESSION / ASSESSMENT: ([id number]) Closed nondisplaced fracture of proximal phalanx of left little finger, initial encounter (primary encounter diagnosis) PLAN: Placed her in aluminum splint Will discuss case with Dr. [place] due to some progression of depression Follow-up accordingly Procedures Ishan Yusuf, [facility]04-15-2021 NoteHNO ID: [id number] Author: Bob Millan Service: ? Author Type: Physician Type: Progress Notes Filed: 11/04/2020 2:12 PM Note Text: [facility] Office Visit Documentation Note [facility]opa[facility] Rhe[facility] [place] REASON FOR VISIT / CHIEF COMPLAINT SERVICE DATE: November 04, 2020 PCP: Peter Ahumada MD CHIEF COMPLAINT: Darling Khanna is a 40 year old female who presents today for a new evaluation of following complaint: Patient presents with: Left Hand - New HISTORY OF PRESENT ILLNESS (HPI) PAIN EVALUATION 11/04/2020 1401 Pain Level: 0 Pain Location: Hand-Left Duration Amount of Time: 5 Duration Units: Days Frequency: Continuous Intervention: ? splinting Brief overview: left 4th finger injury. DOI 10/30. She states that she was volleyball and she went to hit the ball and her finger was pulled laterally. She does have ecchymosis and swelling. She denies any pain unless she bumps her hand. Was there an injury that started this? Yes, 10/30 PREVIOUS TREATMENTS: Treatments so far have included no medications, physical therapy, injections, bracing, advanced imaging or surgical evaluation. REVIEW OF SYSTEMS ROS: Neurologic: Any numbness or tingling? No Endocrine: Any diagnosis of diabetes? No ALLERGIES ALLERGIES Allergen Reactions - Indomethacin Swelling PAST MEDICAL HISTORY No past medical history on file. PHYSICAL EXAMINATION PHYSICAL EXAMINATION: Body Habitus: well nourished and no acute distress Psych: normal Sensation: sensation to light touch is grossly normal bilaterally Skin: Color, texture, turgor normal. No rashes or lesions Swelling: no swelling noted Gait: Normal, the patient did not have trouble getting onto the exam table. ORTHO EXAM: Ortho Exam Swelling of small finger Patient can hold full extension FDP/FDS ok Pain proximal phal and PIP RCL laxity at PIP IMAGING/LABORATORY IMAGING: Final results and radiologist's interpretation, available in the [facility] health record. Images were reviewed with the patient/family members in the office today. My personal interpretation of the performed imaging is Has IA prox phalanx fracture at PIP ASSESSMENT / PLAN CLINICAL IMPRESSION / ASSESSMENT: ([id number]) Closed nondisplaced fracture of proximal phalanx of left little finger, initial encounter (primary encounter diagnosis) RECOMMENDATION / PLAN: We discussed fracture care at great length today, including normal healing times for a phalanx fracture, non-operative and surgical management. At this time, the fracture will be managed nonoperatively. Patient was placed in Dorsal splint Follow up with Dr. Yusuf in 2 weeks, repeat xrays. Verbal health education was given to patient. Patient verbalizes understanding and agrees with the treatment plan as detailed above. Bob Millan D.O. [facility] [place] Team Physician, [facility] Consulting Physician, [place] [facility] [place], Life Enrichment Specialist [phone] Patient verbalizes understanding and agrees with the treatment plan as detailed above.[facility] Liver pain- Primary Abdominal pain, other specified site documented in this encounter [facility] noteNo InformationNort [place] Other Evaluation noteNo assessment information available [facility] Work Phone: Evaluation note* Diagnosis Onset Date Resolution Status Ground-level fall acute Laceration of knee, left acu te Right elbow pain acute [facility] Work Phone: Evaluation note* Diagnosis Onset Date Resolution Status Ground-level fall acute Laceration of knee, left acu te Right elbow pain acute Elbow fracture, right acute Hypothyroidism acute Laceration of knee, left acu te [facility] Work Phone: Evaluation note* Diagnosis Onset Date Resolution Status Ground-level fall acute Laceration of knee, left acu te Right elbow pain acute Elbow fracture, right acute Hypothyroidism acute Laceration of knee, left acu te Fracture of radial neck, right, closed acute [facility] Work Phone: Evaluation note* Diagnosis Onset Date Resolution Status Ground-level fall acute Laceration of knee, left acu te Right elbow pain acute Elbow fracture, right acute Hypothyroidism acute Laceration of knee, left acu te Fracture of radial neck, right, closed acute Fracture of radial neck, right, closed acute [facility] Work Phone: Evaluation note* Diagnosis Onset Date Resolution Status Ground-level fall acute Laceration of knee, left acu te Right elbow pain acute Elbow fracture, right acute Hypothyroidism acute Laceration of knee, left acu te Fracture of radial neck, right, closed acute Fracture of radial neck, right, closed acute Fracture of radial neck, right, closed acute [facility] Work Phone: Evaluation note* Author Hyacinth Hutton [facility] Authored March 06, 2024 2: 47pm The above note written by Thuan STRINGER acting as human recorder, note dictated by Dr.Bryan Ahumada. [facility] Work Phone: Evaluation note* Diagnosis Closed nondisplaced fracture of proximal phalanx of left little finger, initial encounter documented [facility] this encounter [facility] Diagnosis Lumbosacral radiculopathy- Primary Thoracic or lumbosacral neuritis or radiculitis, unspecified [facility] Diagnosis Onset Date Resolution Status Admit Date Bilateral foot pain acute Novem 2023 2:36pm Fatty liver acute May 2:36pm GERD (gastroesophageal reflu x disease) acute June 10, 024 2:36pm Hypothyroidism acute May 232023 2:36pm Pre-diabetes acute May 2:36pm [facility] Work Phone: History general Narrative - Reported* Type Description Date Medical History asthma Medical History HPV Medical History 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 Medical History Inclusion cyst Surgical History jaw surgery for underbite Surgical History breast biopsy 2018 Hospitalization History see surgical hx [employer] Other Hospital Discharge instructions Additional Instructions [place] diet as tolerated Increase oral fluids Take the diclofenac twice a day as needed for pain and inflammation Take oxycodone every 6 hours for severe pain Follow-up with your family doctor for recheck I also gave you the number for gastroenterology Return to the ER for more severe pain high fever vomiting or any other concerns [facility] Work Phone: Hospital Discharge instructions Additional Instructions [facility] Work Phone: Hospital Discharge instructions Additional Instructions DISCHARGE INSTRUCTIONS FOR GENERAL SURGERY YOUR ACTIVITY MAY INCLUDE: -Going up and down stairs slowly. -Walking around the house or outside if the weather is satisfactory. -No driving until you are seen in office and cleared for driving. -Light housework permitted in 3 weeks. -Heavy lifting permitted when cleared by Dr. Haines WOUND CARE/INCISION CARE: The sutures are underneath the skin and will dissolve by themselves. The incisions are covered with surgical glue, there is no need for additional Band-Aids It is safe to get the wounds wet with soap and water in the shower, no hot tubs or tub baths. -Is it common to feel pulling or sharp sticking sensations in the area of incision, these sensations are a part of the normal healing process. -If you develop fever, increasing pain, redness, or swelling around the incision, please notify our office MEDICATION -Resume all previous medications that you were taking for problems unrelated to your surgery, unless informed otherwise. If there are any problems with this, please call the original prescribing doctor. If you have any other questions regarding medications, please call our office. -Over the counter medications such as Acetaminophen, Ibuprofen, Naproxen, and others may be used as directed for pain unless a prescription was provided.[facility] Work Phone: Reason for visit Narrative* Other Medical (Routine) - Closed Specialty Diagnoses / Procedures Referred By Contac t Referred To Contact Neurology Diagnoses Sciatica, left side Procedures GA NEEDLE EMG EA EXTREMTY W/PARASPINL AREA COMPLETE GA NERVE CONDUCTION STUDIES 9-10 STUDIES Robert Martinez MD [address] [place] [address] Phone: tel: fax: Shakeel Rios MD [address] [place] [address] Phone: tel: fax: Referral ID Status Reason Start Date Expiration Date V isits Requested Visits Authorized [id number] Closed Perform Procedure 05/13/2024 11/09/2024 1 1 [facility] Summary Purpose Family History Relationship Condition Age at Onset Recorded Date/T sarah family member Family history of other condition Unknow n Not Specified Malignant neoplasm Unknown Family history of other condition Unknown Relationship Condition Age at Onset Recorded Date/T sarah mother Malignant neoplasm of uterus Unknown Advance Directives Advance Directive Response Recorded Date/ Time Advance Directives No March 3:21pm Advance Directive Response Recorded Date/ Time Advance Directives No March 2:21pm Chief Complaint and Reason for Visit Chief Complaint Hypothyroidism, hype rlipidemia Chief Complaint rt side pain Chief Complaint E78.5 E03.9 rt side pain Screening N63.21 Chief Complaint N63.21 Chief Complaint E03.9 M54.16 M25.552 Chief Complaint Low Back/Left Hip Pa in M54.16 R/S Early Dec Appt M25.552 R92.8 Chief Complaint M54.16 R/S Early Dec Appt M25.552 R92.8 Chief Complaint Screening Chief Complaint Screening fall Chief Complaint Screening fall Amb Documentation remove sutures per bpk Reason for Visit Ground-level fall Laceration of knee, left Right elbow pain Chief Complaint Screening fall Amb Documentation remove sutures per bpk w19.xxxa m25.561/m25.521 Reason for Visit Ground-level fall Laceration of knee, left Right elbow pain Chief Complaint Screening fall Amb Documentation remove sutures per bpk w19.xxxa m25.561/m25.[address] Ahumada Reason for Visit Ground-level fall Laceration of knee, left Right elbow pain Elbow fracture, right Hypothyroidism Laceration of knee, left Chief Complaint Screening fall Amb Documentation remove sutures per bpk w19.xxxa m25.561/m25.[address] Ahumada R10.[address] AHUMADA Reason for Visit Ground-level fall Laceration of knee, left Right elbow pain Elbow fracture, right Hypothyroidism Laceration of knee, left Fracture of radial neck, right, closed Chief Complaint Screening fall Amb Documentation remove sutures per bpk w19.xxxa m25.561/m25.[address] Ahumada R10.[address] AHUMADA S52.131A - Displaced fracture of neck of right rad 2 WEEKS Reason for Visit Ground-level fall Laceration of knee, left Right elbow pain Elbow fracture, right Hypothyroidism Laceration of knee, left Fracture of radial neck, right, closed Fracture of radial neck, right, closed Chief Complaint Screening fall Amb Documentation remove sutures per bpk w19.xxxa m25.561/m25.[address] Ahumada R10.[address] AHUMADA S52.131A - Displaced fracture of neck of right rad 2 WEEKS Recurrent Umbilical Hernia Reason for Visit Ground-level fall Laceration of knee, left Right elbow pain Elbow fracture, right Hypothyroidism Laceration of knee, left Fracture of radial neck, right, closed Fracture of radial neck, right, closed Chief Complaint Screening fall Amb Documentation remove sutures per bpk w19.xxxa m25.561/m25.[address] Ahumada R10.[address] AHUMADA S52.131A - Displaced fracture of neck of right rad 2 WEEKS Recurrent Umbilical Hernia Recurrent Umbilical Hernia Reason for Visit Ground-level fall Laceration of knee, left Right elbow pain Elbow fracture, right Hypothyroidism Laceration of knee, left Fracture of radial neck, right, closed Fracture of radial neck, right, closed Chief Complaint Screening fall Amb Documentation remove sutures per bpk w19.xxxa m25.561/m25.[address] Ahumada R10.[address] AHUMADA S52.131A - Displaced fracture of neck of right rad 2 WEEKS Recurrent Umbilical Hernia Recurrent Umbilical Hernia S52.131A - Displaced fracture of neck of right rad 4 WEEKS Reason for Visit Ground-level fall Laceration of knee, left Right elbow pain Elbow fracture, right Hypothyroidism Laceration of knee, left Fracture of radial neck, right, closed Fracture of radial neck, right, closed Fracture of radial neck, right, closed Chief Complaint fall Amb Documentation remove sutures per bpk w19.xxxa m25.561/m25.[address] Ahumada R10.[address] AHUMADA S52.131A - Displaced fracture of neck of right rad 2 WEEKS Recurrent Umbilical Hernia Recurrent Umbilical Hernia S52.131A - Displaced fracture of neck of right rad 4 WEEKS E03.9 E78.5 R73.9 Reason for Visit Ground-level fall Laceration of knee, left Right elbow pain Elbow fracture, right Hypothyroidism Laceration of knee, left Fracture of radial neck, right, closed Fracture of radial neck, right, closed Fracture of radial neck, right, closed Chief Complaint fall Amb Documentation remove sutures per bpk w19.xxxa m25.561/m25.[address] Ahumada R10.[address] AHUMADA S52.131A - Displaced fracture of neck of right rad 2 WEEKS Recurrent Umbilical Hernia Recurrent Umbilical Hernia S52.131A - Displaced fracture of neck of right rad 4 WEEKS E03.9 E78.5 R73.9 review lab Reason for Visit Ground-level fall Laceration of knee, left Right elbow pain Elbow fracture, right Hypothyroidism Laceration of knee, left Fracture of radial neck, right, closed Fracture of radial neck, right, closed Fracture of radial neck, right, closed GERD (gastroesophageal reflux disease) Hyperlipidemia Hypothyroidism Pre-diabetes Diarrhea Chief Complaint fall Amb Documentation remove sutures per bpk w19.xxxa m25.561/m25.[address] Ahumada R10.[address] AHUMADA S52.131A - Displaced fracture of neck of right rad 2 WEEKS Recurrent Umbilical Hernia Recurrent Umbilical Hernia S52.131A - Displaced fracture of neck of right rad 4 WEEKS E03.9 E78.5 R73.9 review lab K21.9 R19.7 Reason for Visit Ground-level fall Laceration of knee, left Right elbow pain Elbow fracture, right Hypothyroidism Laceration of knee, left Fracture of radial neck, right, closed Fracture of radial neck, right, closed Fracture of radial neck, right, closed GERD (gastroesophageal reflux disease) Hyperlipidemia Hypothyroidism Pre-diabetes Diarrhea Chief Complaint E03.9 E78.5 R73.9 review lab K21.9 R19.7 R foot pain Reason for Visit GERD (gastroesophage al reflux disease) Hyperlipidemia Hypothyroidism Pre-diabetes Diarrhea Chief Complaint Admit Date K21.9 R19.7 March 12, 2024 7: 30am R foot pain May 19, 2024 2 :30pm plantar fascitits June 04, 2024 9:10pm Chief Complaint Admit Date K21.9 R19.7 March 12, 2024 7: 30am R foot pain May 19, 2024 2 :30pm plantar fascitits June 04, 2024 9:10pm 3 month f/u June 10, 2024 2:36pm Reason for Visit Admit Date Bilateral foot pain June 10, 2024 2:36pm Fatty liver June 10, 2024 2:36pm GERD (gastroesophageal reflux disease) N ovember 2023 2:36pm Hypothyroidism June 10, 2024 2:36pm Pre-diabetes June 10, 2024 2:36pm Additional Source Comments INFORMATION SOURCE (unrecogn ized section and content) DATE CREATED AUTHOR 02/25/[address] [facility] DATE CREATED AUTHOR AUTHOR'S ORGANIZ ATION 10/18/2021 [facility] DATE CREATED AUTHOR AUTHOR'S ORGANIZ ATION 05/24/2024 [facility] DATE CREATED AUTHOR AUTHOR'S ORGANIZ ATION 06/10/2024 [facility] Source Comments (unrecognize d section and content) In the event this informatio n is protected by the Federal Confidentiality of Alcohol and Drug Abuse Patient Records regulations: The Federal rules restrict any use of the information to criminally investigate or prosecute any alcohol or drug abuse patient.[facility] the event this information is protected by the Federal Confidentiality of Alcohol and Drug Abuse Patient Records regulations: The Federal rules restrict any use of the information to criminally investigate or prosecute any alcohol or drug abuse patient.[facility] the event this information is protected by the Federal Confidentiality of Alcohol and Drug Abuse Patient Records regulations: The Federal rules restrict any use of the information to criminally investigate or prosecute any alcohol or drug abuse patient.[facility] Reason for Visit (unrecogniz ed section and content) Reason Comments Established Patient Care Teams (unrecognized sec tion and content) Team Status: Active Member Role Status Dates Peter Ahumada DO Primary Care Provider Active Team Status: Inactive Member Role Status Dates Peter Ahumada DO Primary Care Provider, Attending Provi dani Active Fire Production Operator Relationship Specialty Start Date End Date Peter Ahumada DO [address] [place] [address] PCP - General Family Practice 11/22/15 Team Status: Inactive Member Role Status Dates Peter Ahumada DO Primary Care Provider Active Alba Marshall , GROUND SOURCE HEAT PUMP TECHNICIAN- Emergency Provider Active Team Status: Inactive Member Role Status Dates Peter Ahumada DO Primary Care Provider Active Koki Elkins ([facility]) , WATER PROJECT ENGINEER Attending Provider Active Team Status: Inactive Member Role Status Dates Peter Ahumada DO Attending Provider Active Start: May 24, 2023 End: May 24, 2023 Team Status: Inactive Member Role Status Dates Peter Ahumada DO Primary Care Provide r, Attending Provider Active Start: May 25, 2023 End: May 25, 2023 Team Status: Inactive Member Role Status Dates Peter Ahumada DO Attending Provider Active Start: June 08, 2023 End: June 08, 2023 Team Status: Inactive Member Role Status Dates Peter Ahumada DO Primary Care Provide r, Attending Provider Active Start: June 08, 2023 End: June 08, 2023 Team Status: Inactive Member Role Status Dates Peter Ahumada DO Primary Care Provide r, Attending Provider Active Start: August 13, 2023 End: August 13, 2023 Team Status: Inactive Member Role Status Dates Peter Ahumada DO Primary Care Provide r, Attending Provider Active Start: August 22, 2023 End: August 22, 2023 Team Status: Inactive Member Role Status Dates Peter Ahumada DO Primary Care Provide r, Referring Provider Active Start: December 03, 2023 End: December 03, 2023 Referral Self Attending Provider Active Start: M 2023 End: December 03, 2023 Team Status: Inactive Member Role Status Dates Peter Ahumada DO Primary Care Provider Active Sta rt: December 17, 2023 End: December 17, 2023 Igor Rudd MD Emergency Provider Active Star t: December 17, 2023 End: December 17, 2023 Team Status: Active Member Role Status Dates Peter Ahumada DO Primary Care Provider Active Sta rt: December 19, 2023 Catia Benjamin LPN Attending Provider Active Sta rt: December 19, 2023 Team Status: Inactive Member Role Status Dates Peter Ahumada DO Primary Care Provide r, Attending Provider Active Start: December 27, 2023 End: December 27, 2023 Team Status: Inactive Member Role Status Dates Peter Ahumada DO Primary Care Provide r, Attending Provider Active Start: December 28, 2023 End: December 28, 2023 Team Status: Inactive Member Role Status Dates Peter Ahumada DO Primary Care Provide r, Attending Provider Active Start: December 31, 2023 End: December 31, 2023 Team Status: Active Member Role Status Dates Peter Ahumada DO Primary Care Provider Active Sta rt: December 31, 2023 Alber Haines DO Attending Provider Active Start: December 31, 2023 Team Status: Inactive Member Role Status Dates Peter Ahumada DO Primary Care Provider Active Sta rt: December 31, 2023 End: December 31, 2023 Chas A Susana , DO Attending Provider Active S tart: December 31, 2023 End: December 31, 2023 Team Status: Inactive Member Role Status Dates Peter Ahumada DO Primary Care Provider Active Sta rt: December 31, 2023 End: December 31, 2023 Alber Haines DO Attending Provider Active Start: December 31, 2023 End: December 31, 2023 Team Status: Active Member Role Status Dates Peter Ahumada DO Primary Care Provider Active Sta rt: January 14, 2024 Chas Meza , DO Attending Provider Active S tart: January 14, 2024 Team Status: Inactive Member Role Status Dates Peter Ahumada , DO Primary Care Provider Active Sta rt: January 14, 2024 End: January 14, 2024 Chas Meza , DO Attending Provider Active S tart: January 14, 2024 End: January 14, 2024 Team Status: Inactive Member Role Status Dates Peter Ahumada , DO Primary Care Provider Active Sta rt: January 15, 2024 End: January 15, 2024 Alber Haines DO Attending Provider Active Start: January 15, 2024 End: January 15, 2024 Team Status: Inactive Member Role Status Dates Peter Ahumada DO Primary Care Provider Active Sta rt: January 29, 2024 End: January 29, 2024 Alber Haines DO Attending Provider Active Start: January 29, 2024 End: January 29, 2024 Team Status: Active Member Role Status Dates Peter Ahumada DO Primary Care Provider Active Sta rt: February 13, 2024 Chas Meza , DO Attending Provider Active S tart: February 13, 2024 Team Status: Inactive Member Role Status Dates Peter Ahumada DO Primary Care Provider Active Sta rt: February 13, 2024 End: February 13, 2024 Chas Meza , DO Attending Provider Active S tart: February 13, 2024 End: February 13, 2024 Team Status: Inactive Member Role Status Dates Peter Ahumada DO Primary Care Provide r, Attending Provider Active Start: March 05, 2024 End: March 05, 2024 Team Status: Inactive Member Role Status Dates Peter Ahumada DO Primary Care Provide r, Attending Provider Active Start: March 06, 2024 End: March 06, 2024 Team Status: Inactive Member Role Status Dates Peter Ahumada DO Primary Care Provide r, Attending Provider Active Start: March 12, 2024 End: March 12, 2024 Fire Production Operator Relationship Specialty Start Date End Date Peter Ahumada DO [address] [place] [id number] PCP - General Family Medicine 11/22/15 Team Status: Inactive Member Role Status Dates Peter Ahumada DO Primary Care Provider Active Sta rt: May 19, 2024 End: May 19, 2024 Robert Martinez DPM MS Attending Provider Active Start: May 19, 2024 End: May 19, 2024 Fire Production Operator Relationship Specialty Start Date End Date Peter Ahumada MD [address] [place] [phone] PCP General 01/25/23 Fire Production Operator Relationship Specialty Start Date End Date Peter Ahumada MD [address] [place] [phone] PCP General 01/25/23 Team Status: Inactive Member Role Status Dates Peter Ahumada DO Primary Care Provider Active Sta rt: June 04, 2024 End: June 04, 2024 Robert Martinez DPM MS Attending Provider Active Start: June 04, 2024 End: June 04, 2024 Team Status: Inactive Member Role Status Dates Peter Ahumada DO Primary Care Provide r, Attending Provider Active Start: June 10, 2024 End: June 10, 2024 Goals (unrecognized section and content) Goals may be documented in a n alternate section FOR RECORDS PERTAINING TO PATIENTS WHO ARE OR HAVE BEEN ENROLLED IN A CHEMICAL DEPENDENCY/SUBSTANCEABUSE PROGRAM, SOME INFORMATION MAY BE OMITTED. This clinical summary was aggregated from multiple sources. Caution should be exercised in using it in the provision of clinical care. This summary normalizes information from multiple sources, and as a consequence, information in this document may materially change the coding, format and clinical context of patient data. In addition, data may be omitted in some cases. CLINICAL DECISIONS SHOULD BE BASED ON THE PRIMARY CLINICAL RECORDS. [facility] [employer] [facility]. provides no warranty or guarantee of the accuracy or completeness of information in this document.
--- NOTE | 2024-06-23 14:15 | P.CN_ITS ---
Consult Note: HPI Data of Consult Patient: new to practice Consult date: 06/23/24 Requesting Physician: Christos Manrique MD Primary Care Provider: Non-Staff Physician, Consult Narrative Reason for consult: low back, bilateral feet pain Narrative: 44yof who presents for evaluation. longstanding pain in bilateral feet, also increasing low back pain. mri indicative of plantar fasciitis. had lower extremity EMG, which showed S1 radiculopathy. completed 13 sessions of PT within past 3 months, which provided some benefit. uses otc pain meds as needed. denies adverse med side effects. cc:: CC: Christos Manrique MD Review of Systems ROS Status of ROS 10 or more systems reviewed and unremark able except as noted in history and below Exam Narrative Exam Narrative: Psych-alert and oriented x 3. Attentive and appropriate, constitutionally normal, displays normal mood and affect per situation. There are no obvious deficits in memory, reasoning, or intellect.? Skin-no obvious rashes, bruising, erythema noted to the patient's area of pain.? Extremities- extremities are warm with minimal edema and palpable pulses. Lumbar-tenderness to palpation noted in the lumbar spine and paraspinal musculature. Pain is elicited with flexion, extension, and lateral rotation of the lumbar spine. Range of motion is diminished with these motions. Facet loading maneuvers are positive.? Strength-noted to be unremarkable Sensory-no notable sensory deficits in the bilateral lower extremities to touch or pinprick in all dermatomal distributions with the exception to decreased sensation to the bilateral S1 dermatomal distribution Coordination remains intact.? Gait remains non-antalgic. Assessment and Plan Assessment and Plan (1) Lumbar radiculopathy: Plan 44yof who presents for evaluation. failed conservative measures, as noted. imaging and testing reviewed, as noted. given symptoms and testing, prudent to attempt bilateral S1 tfesi under fluoroscopic guidance. she is in agreement. meds reviewed, no changes. follow up after procedure.
== END 2024-06-23 12:44 | disposition home or self-care (01) ==
LOC: PM 12:44
PROVIDERS: Visit Provider Anesthesiology
DX: M54.16 Radiculopathy, lumbar region (principal)
CPT/HCPCS: G0463

== ENCOUNTER 2024-09-01 07:49 | Day surgery (SDC) | payer OTHER, SELFPAY ==
[2024-09-01 07:58] VITALS: BP 121/79; PULSE 81; TEMP 36.2; O2SAT 97
[2024-09-01 08:38] VITALS: BP 148/76; BP 164/87; PULSE 59; PULSE 64; O2SAT 99
--- NOTE | 2024-09-01 08:42 | W.PM.PROCNOT ---
Date of procedure: 09/01/24 Pre-op diagnosis: Pain due to lumbar stenosis with neurogenic claudication Post-op diagnosis: same as pre-op Procedure: Procedure: Bilateral S1-2 transforaminal epidural steroid injection Medications: Bupivacaine 0.25% 2cc, lidocaine 2% 1cc, depomedrol 80mg The patient was seen and examined in the preoperative holding area.? Informed consent was obtained and placed on the chart.? Patient was brought to the medical procedure unit and placed in the prone position where a timeout was completed verifying the correct patient, procedure site, position, and planned special equipment using sterile aseptic technique.? Under direct fluoroscopic visualization a 25-gauge Quincke tipped spinal needle was advanced at level left S1-2 to the designated neural foramen where contrast dye was injected to show adequate spread.? There was no evidence of vascular or adverse uptake.? Epidural spread was appreciated.? The above-mentioned injectate was then placed in a 1.5 mL aliquot preceded by negative aspiration.? The needle was removed. The same procedure, at the same level, was completed on the opposite side. ? Patient was taken to the postprocedural recovery area and monitored for an appropriate length of time before found suitable for discharge in the accompaniment of a responsible adult. Anesthesia: Local Surgeon: Christos Manrique Pathology: none sent Condition: stable Disposition: no change
[2024-09-01] MEDS: LIDOCAINE HCL 2% 400 MG/20 ML MDV 3 ML INJ (08:43)
[2024-09-01] MEDS: IOHEXOL 240 MG/ML - 10 ML VIAL 24 MG INJ (08:43)
[2024-09-01] MEDS: BUPIVACAINE HCL 0.25% PF 25 MG/10 ML VIAL INJ (08:43)
[2024-09-01] MEDS: METHYLPREDNISOLONE ACETATE 80 MG/ML VIAL INJ (08:43)
[2024-09-01] MEDS: 0.9 % SODIUM CHLORIDE 10 ML SYRINGE - SALINE FLUSH INJ (08:43)
== END 2024-09-01 08:58 | disposition home or self-care (01) ==
LOC: SURGOUT 07:50
PROVIDERS: Visit Provider Anesthesiology
DX: M48.062 Spinal stenosis, lumbar region with neurogenic claudication (principal)
CPT/HCPCS: 64483; J0665; J1010; Q9966

== ENCOUNTER 2024-09-11 07:53 | Outpatient (OUT) | payer OTHER, SELFPAY ==
--- OUTSIDE RECORDS SUMMARY | 2024-09-11 08:07 | XMS_ITS | CCD ---
Author Organization [facility] Care Team Providers Care Teacher Vocal Name Role Phone DR PETER AHUMADA Primary Care Unavailable DR CHETAN RUDD Admitting Unavailable DR CHETAN RUDD Consulting Unavailable DR CHETAN RUDD Attending Unavailable Luz Marina Hernandez Consulting Unavailable Peter Ahumada DO Primary Care Provider [phone] Peter Ahumada Unavailable Blake, DO Peter Primary Care Provider [phone] Blake, DO Green Attending Provider Acs, DO Green Primary Care Provider Kuns, DO Peter Attending Provider [phone] Kuns, DO Peter Primary Care Provider [phone] Kuns, DO Peter Attending Provider Rolando, [facility] [place] [place] Emergency Provider Severo ([facility]), [place] DELIA Orellana Attending Provider Acs, DO Green Primary Care Provider [phone] Acs, DO Green Attending Provider [phone] Kuns, DO Peter Primary Care Provider [phone] Acs, DO Peter Attending Provider Kuns, DO Peter Primary Care Provider [phone] Kuns, DO Peter Attending Provider Kuns, DO Peter Primary Care Provider [phone] Blake, DO Peter Referring Provider Self, Referral Attending Provider Unavailable MD Igor Rudd Emergency Provider Blake, DO Green Attending Provider [phone] Itzkoorlando, DO Alber Attending Provider DO Chas Meza Attending Provider Blake, DO Green Primary Care Provider [phone] Peter Ahumada DO P Primary Care Provider Acs, DO Peter Primary Care Provider Blake, DO Green Attending Provider JEAN CARLOS Martinez Attending Provider Peter Ahumada MD Primary Care Provider ITZKOWITZ, ALBER H Attending Unavailable ITZKOWITZ, ALBER H Attending Unavailable ITZKOWITZ, ALBER H Attending Unavailable ITZKOYAHIRTZ, ALBER H Attending Unavailable RAHLU CASTILLO Attending Unavailable ROBERT MARTINEZ Referring Unavailable Peter Ahumada DO Primary Care Provider [phone] Peter Ahumada DO Attending Provider Robert Martinez DPM Attending Provider Itzkowitz, Alber Admitting Unavailable Itzkowitz, Alber Attending Unavailable Kuns, Peter Primary Care Unavailable Kuns, Peter Primary Care Unavailable Susana, Chas A Admitting Unavailable Susana, Chas A Attending Unavailable Kuns, Peter Primary Care Unavailable Susana, Chas A Attending Unavailable Susana, Chas A Admitting Unavailable Kuns, Peter Admitting Unavailable Kuns, Peter Primary Care Unavailable Kuns, Peter Attending Unavailable Kuns, Peter Primary Care Unavailable Itzkowitz, Alber Attending Unavailable Itzkowitz, Alber Admitting Unavailable Tobin, Sven Attending Unavailable Kuns, Peter Primary Care Unavailable Tobin Sven Admitting Unavailable Kuns, Peter Primary Care Unavailable Kuns, Peter Attending Unavailable Kuns, Peter Admitting Unavailable Kuns, Peter Primary Care Unavailable Itzkowitz, Alber Attending Unavailable Itzkowitz, Alber Admitting Unavailable Kuns, Peter Primary Care Unavailable Robert Martinez Admitting Unavailable Robert Martinez Attending Unavailable Peter Ahumada Primary Care Unavailable Robert Martinez Attending Unavailable Robert Martinez Admitting Unavailable Kuns, Peetr Primary Care Unavailable Robert Martinez Attending Unavailable [...] Primary Care Unavailable Kuns, Peter Attending Unavailable Giedraitis , Andcorinne Masters Attending Unavailable Giedraitis , Christos Masters Attending Unavailable Allergies Allergy Classification Reported Allergen(s) Allergy Type Date of Onset Reaction(s) Facility (6 sources) Indomethacin Drug Allergy 8 [facility] (11 sources) benzonatate Drug Allergy 4 diarrhea [facility] (2 sources) benzonatate Drug Allergy 3 GI intolerance [facility] Work Phone: (1 source) benzonatate Drug Allergy 4 [facility] Repository (1 source) Indomethacin Drug Allergy [address] [place] [address] Repository Medications Current Medications Medication Drug Class(es) Dates Sig (Normalized) Sig (Original) [id number] 200 actuat albuterol 0.09 mg/actuat metered dose [...] tablet by mouth once daily Norgestimate-Ethinyl Estradiol (Maryl Ou) 0.25-35 mg-mcg tablet Discontinued 1 TAB PO [...] (17 sources) [facility] Vitamin D (Cholecalciferol) 1000 [...] EVERY 4-6 HOURS as needed for Pain 28 December 19, 2023 December 31, 2023 6:42am Start: 04-24-2017 End: 03-26-2018 take 2 tablets by mouth every four to six hours as needed for pain Hydrocodone-Acetaminophen ([place]) 5-325 mg tablet Discontinued 2 TAB PO [...] PO Q6H as needed for pain 12 3 November 01, 2022 December 17, 2023 6:36am [...] Comment on above: TAKE 1 CAPSULE BY MO [facility] EVERY DAY 30 MINUTES BEFORE MORNING [...] mg tablet Discontinued 20 MG PO .COMPLEX November 29, 2023 11:00pm December 17, 2023 6:36am 20 mg orally BID X 5 DAYS, QD X 5 DAYS; Start: 06-08-2023 take 1 tablet by yoana every twenty-four hours predniSONE 20 MG 1 [...] Start: 02-15-2021 take 1 tablet by yoana every six hours traMADol HCl 50 MG 1 tablet as needed Orally QID prn Jan, Active Problems Active Problems Problem Classification Problem Date Documented Da te Episodic/Chronic Acute bronchitis (2 sources) Acute bronchitis, unspecified Episodic Allergic reactions (17 sources) Hand eczema; Translations: [Dermatitis, unspecified] Episodic Asthma (18 sources) Unspecified asthma, uncomplicated; Translations: [Asthma] Onset: 1 12-25-2023 Chronic Disorders of lipid metabolism (20 sources) Hyperlipidemia; Translations: [Hyperlipidemia, unspecified] Onset: 2 Resolved: 2 Chronic E Codes: Natural/environment (1 source) Bitten or [...] for fracture with routine healing] 11-30-2020 Episodic Immunizations and screening for infectious disease [...] 12-17-2023 Episodic Other aftercare (1 source) Other nursing home (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 therapy; Translations: [OTH ALF CURRENT DRUG THERAPY] Onset: 1 Episodic Other [...] [Pain in right foot] 06-10-2024 Episodic Other connective tissue disease (2 sources) Pain in right foot; Translations: [Pain in limb] Onset: 4 06-10-2024 Episodic Other connective tissue disease (1 source) Plantar fascial fibromatosis; Translations: [Plantar fascial fibromatosis] Onset: 4 Episodic Other gastrointestinal disorders (17 sources) Heartburn; Translations: [Heartburn] Episodic Other gastrointestinal disorders (20 sources) Epiploic appendagitis; Translations: [Other specified diseases of intestine] 11-01-2022 Episodic Other gastrointestinal disorders (1 source) Change in bowel habit Episodic Other injuries and conditions due to [...] 3 01-25-2023 Chronic Other non-traumatic joint disorders (5 sources) Swollen [...] obstruction or gangrene; Translations: [Umbilical hernia] Onset: 01-25-2023 Episodic Abdominal pain (20 sources) Right upper quadrant pain; Translations: [Liver pain] Onset: 02-22-2021 Episodic Diabetes mellitus without complication (20 sources) Hyperglycemia, unspecified; Translations: [Prediabetes] Onset: 03-05-2024 Episodic E Codes: Fall (20 sources) Fall on same level; Translations: [Fall on same level, unspecified, initial encounter] Onset: 12-28-2023 12-27-2023 Episodic Fracture of upper limb (20 sources) Elbow fracture; Translations: [Unspecified fracture of lower end of right humerus, initial encounter for closed fracture] Onset: 01-14-2024 12-31-2023 Episodic Other connective tissue disease (5 sources) Pain in right foot; Translations: [Pain in right foot] Onset: 11-26-2017 11-26-2017 Episodic Other connective tissue disease (1 source) Pain in left arm; Translations: [Arm pain, left M79.602] Onset: 04-20-2021 Resolved: 04-20-2021 Episodic Other connective tissue disease (2 sources) Peroneal tendinitis; Translations: [Peroneal tendinitis, unspecified leg] Onset: 01-25-2023 01-25-2023 Episodic Other gastrointestinal disorders (4 sources) Diarrhea, unspecified; Translations: [Diarrhea] Onset: 03-12-2024 03-06-2024 Episodic Other injuries and conditions due to external causes (1 source) Unspecified injury of right shoulder and upper arm, initial encounter; Translations: [Unspecified injury of right shoulder and upper arm, initial encounter] Onset: 12-17-2023 Episodic Other non-traumatic joint disorders (20 sources) Pain in right knee; Translations: [Pain in joint, lower leg] Onset: 11-12-2017 11-12-2017 Episodic Other non-traumatic joint disorders (15 sources) [...] conon 024 MR ankle LT wo con [facility] [place] [address] MRI Report Signed Patient: Darling Khanna MR#: [id number] : 1980 Acct:[id number] Age/Sex: 44 / F ADM Date: 06/04/24 Loc: Room: Type: [facility] Attending Dr: Robert Martinez DPM MS Copies to: Robert Martinez DPM, MS [...] Osmani Stovall M.D.06/04/2024 10:29 PM Dictation Location: [place] [address] Transcribed By: [facility] 06/04/242228 Dictated By: Osmani Stovall DO 06/04/242217 Signed By: 06/04/242228 Normal [facility] Magnetic resonance imaging r eportOrdered By: Osmani Stovall on 06-04-2024 Study report [facility] [place] [address] [place] [address] MRI Report Signed Patient: Darling Khanna MR#: [id number] : 1980 Acct:[id number] Age/Sex: 44 / F ADM Date: 4 Loc: MR Room: Type: [facility] Attending Dr: Robert Martinez DPM MS Copies to: Robert Martinez DPM, MS~ [...] Osmani Stovall M.D.06/04/2024 10:29 PM Dictation Location: [place] [address] Transcribed By: [facility] 06/04/242228 Dictated By: Osmani Stovall DO 06/04/242217 Signed By: 06/04/242228 [facility] X-ray reportOrdered By: Vikas Stovall on 06-04-2024 Study report [facility] [place] [address] [place] [address] XRay Report Signed Patient: Darling Khanna MR#: [id number] : 1980 Acct:[id number] Age/Sex: 44 / F ADM Date: 4 Loc: MR Room: Type: REG CLI Attending Dr: Robert Martinez DPM, MS Copies to: Robert Martinez DPM, ~ Ordering Provider: Robert Martinez DPM, MS Date of Service: 06/04/24 XR/XR pre/post mri xray: PLANTAR FASCITIS 2 views LEFT ankle for pre-MRI assessment. Large inferior calcaneal spur. Intact bony structures. No acute bony findings. Unremarkable soft tissues. XR/XR pre/post mri xray IMPRESSION: Inferior calcaneal spurring Impression dictated by: Osmani Stovall M.D.06/04/2024 11:51 PM Dictation Location: [facility]01 Transcribed By: [facility] 06/04/242350 Dictated By: Osmani Stovall DO 06/04/242350 Signed By: 06/04/24 235 [facility] XR pre/post mri xrayon 06-04 XR pre/post mri xray [facility] [place] [address] XRay Report Signed Patient: Darling Khanna MR#: [id number] : 1980 Acct:[id number] Age/Sex: 44 / F ADM Date: 06/04/24 Loc: MR Room: Type: REG CLI Attending Dr: Robert Martinez DPM, MS Copies [...] Osmani Stovall M.D.06/04/2024 11:51 PM Dictation Location: [facility] Transcribed By: [facility] 06/04/242350 Dictated By: Osmani Stovall DO 06/04/24 235 Signed By: 06/04/24 235 Normal [facility] EMG 2 Extremitieson 05-22-20 24 S1 radiculopathy, le ft, mild [facility] 11-12 Nerveson 4 S1 radiculopathy, le ft, mild [facility] FL upper GI w air*on 024 FL upper GI w air* [facility] [place] [address] Fluoroscopy Report Signed Patient: Darling Khanna MR#: [id number] : 1980 Acct:[id number] Age/Sex: 43 / F ADM Date: 03/12/24 Loc: Room: Type: [facility] Attending Dr: Peter Ahumada DO Copies to: [...] Osmani Stovall M.D.03/12/2024 2:09 PM Dictation Location: [place] [address] Transcribed By: [facility] 03/12/24 1409 Dictated By: Osmani Stovall DO 03/12/24 1040 Signed By: 03/12/24 140 Normal [facility] US gall bladderon 03-12-2024 US gall bladder [facility] [place] [address] [place] [address] Ultrasound Report Signed Patient: Darling Khanna MR#: [id number] 1872 : 1980 Acct:[id number] Age/Sex: 43 / F ADM Date: 03/12/24 Loc: Room: Type: [facility] Attending Dr: Peter Ahumada DO Ordering Provider: [...] Osmani Stovall M.D.03/12/2024 10:39 AM Dictation Location: [place] [address] Tech: Nellie Solis Transcribed By: [facility] 03/12/24 1039 Dictated By: Osmani Stovall DO 03/12/24 1036 Signed By: 03/12/24 1039 Normal [facility] A1C with Estimated Average G terrell 03-05-2024 Glucose [Mass/Vol] 128 mg/dL Normal [facility] Comment on above: Result Comment: PERF ORMED BY: [place] [id number] PATHOLOGIST [employer] SAL[employer] REPRESENTATIVE ALVIN VIDES M.D. Performed By: #### T SH3, A1C WTH eA, CBC, CMP, LIPID, T4F ####[address] [address] [facility] Alanine aminotransferase [En zymatic activity/volume] in Serum or PlasmaOrdered By: Peter Ahumada on 03-05-2024 ALT [Catalytic activity/Vol] 10 U/L Normal 7-52 [facility] Comment on above: Performed By: #### T SH3, A1C WTH eA, CBC, CMP, LIPID, T4F ####[address] [address] [place] Albumin [Mass/volume] in Ser um or Plasma by Bromocresol green (BCG) dye binding methoOrdered By: Peter Ahumada on 03-05-2024 Albumin BCG dye [Mass/Vol] 4.0 g/dL 3.5-5.7 [facility] Alkaline phosphatase [Enzyma tic activity/volume] in Serum or PlasmaOrdered By: Peter Ahumada on 03-05-2024 ALP [Catalytic activity/Vol] 46 U/L Normal 34-104 [facility] Comment on above: Performed By: #### T SH3, A1C WT eA, CBC, CMP, LIPID, T4F ####[place] [id number] [facility] Aspartate aminotransferase [ Enzymatic activity/volume] in Serum or PlasmaOrdered By: Peter Ahumada on 03-05-2024 AST [Catalytic activity/Vol] 20 U/L Normal 13-39 [facility] Comment on above: Performed By: #### T SH3, A1C WTH eA, CBC, CMP, LIPID, T4F ####[address] [address] [facility] Automated basophil %Ordered By: Peter Ahumada on 03-05-2024 Basophils/100 WBC (Bld) 0.7 % Normal . [facility] Comment on above: Performed By: #### T SH3, A1C WTH eA, CBC, CMP, LIPID, T4F ####[address] [address] [facility] Automated basophil countOrde red By: Peter Ahumada on 03-05-2024 Basophils (Bld) [#/Vol] 0.0 10*3/uL Normal 0.0-0.2 [facility] Comment on above: Result Comment: PERF ORMED BY: [facility] [address] [place] [address] PATHOLOGIST [employer] REPRESENTATIVE ALVIN VIDES M.D. Performed By: #### T SH3, A1C WTH eA, CBC, CMP, LIPID, T4F ####[address] Automated blood monocyte cou ntOrdered By: Peter Ahumada on 03-05-2024 Monocytes (Bld) [#/Vol] 0.5 10*3/uL Normal 0.0-0.8 [facility] Comment on above: Performed By: #### T SH3, A1C WTH eA, CBC, CMP, LIPID, T4F ####[address] Automated eosinophil %Ordere d By: Peter Ahumada on 03-05-2024 Eosinophils/100 WBC (Bld) 2.2 % Normal . [facility] Comment on above: Performed By: #### T SH3, A1C WTH eA, CBC, CMP, LIPID, T4F ####[address] Automated eosinophil countOr dered By: Peter Ahumada on 03-05-2024 Eosinophils (Bld) [#/Vol] 0.1 10*3/uL Normal 0.0-0.45 [facility] Comment on above: Performed By: #### T SH3, A1C WTH eA, CBC, CMP, LIPID, T4F ####[place] [id number] [facility] Automated monocyte %Ordered By: Peter Ahumada on 03-05-2024 Monocytes/100 WBC (Bld) 7.5 % Normal . [facility] Comment on above: Performed By: #### T SH3, A1C WTH eA, CBC, CMP, LIPID, T4F ####[address] Automated neutrophil %Ordere d By: Peter Ahumada on 03-05-2024 Neutrophils/100 WBC (Bld) 53.3 % Normal . [facility] Comment on above: Performed By: #### T SH3, A1C WTH eA, CBC, CMP, LIPID, T4F ####[facility] [address] [place] [address] [facility] Bilirubin.total [Mass/volume ] in Serum or PlasmaOrdered By: Peter Ahumada on 03-05-2024 Bilirubin [Mass/Vol] 0.4 mg/dL Normal 0.3-1.0 [facility] Comment on above: Performed By: #### T SH3, A1C WTH eA, CBC, CMP, LIPID, T4F ####[place] [address] [place] [address] [facility] Calcium [Mass/volume] in Ser um or PlasmaOrdered By: Peter Ahumada on 03-05-2024 Calcium [Mass/Vol] 8.9 mg/dL Normal 8.6-10.3 [facility] Comment on above: Performed By: #### T SH3, A1C WTH eA, CBC, CMP, LIPID, T4F ####[place] [address] [place] [address] [facility] Carbon dioxide, total [Moles /volume] in Serum or PlasmaOrdered By: Peter Ahumada on 03-05-2024 CO2 [Moles/Vol] 28.7 mmol/L Normal 21.0-31.0 [facility] Comment on above: Performed By: #### T SH3, A1C WTH eA, CBC, CMP, LIPID, T4F ####[place] [address] [place] [address] [place] Chloride [Moles/volume] in S renetta or PlasmaOrdered By: Peter Ahumada on 03-05-2024 Chloride [Moles/Vol] 103 mmol/L Normal 98-107 [facility] Comment on above: Performed By: #### T SH3, A1C WTH eA, CBC, CMP, LIPID, T4F ####[place] [address] [place] [address] [facility] Cholesterol [Mass/volume] in Serum or PlasmaOrdered By: Peter Ahumada on 03-05-2024 Cholesterol [Mass/Vol] 166 mg/dL Normal 140-200 [facility] Comment on above: Chol less than 200 m g/dl low riskChol 201-239 mg/dl borderline riskChol 240 mg/dl and greater high risk Result Comment: Chol less than 200 mg/dl low risk Chol 201-239 mg/dl borderline risk Chol 240 mg/dl and greater high risk Performed By: #### T SH3, A1C WTH eA, CBC, CMP, LIPID, T4F ####[facility] Cholesterol in LDL Calc [Mas s/Vol]Ordered By: Peter Ahumada on 03-05-2024 Cholesterol in LDL [Mass/Vol] 76 mg/dL 0-100 [facility] Comment on above: LDL ATP III CLASSIFI CATIONLDL less than 100 mg/dL OptimalLDL 100-129 mg/dL Near or above optimalLDL 130-159 mg/dL Borderline highLDL 160-189 mg/dL HighLDL greater than 189 mg/dL Very high Cholesterol in VLDL Calc [Ma ss/Vol]Ordered By: Peter Ahumada on 03-05-2024 Cholesterol in VLDL [Mass/Vol] 40 mg/dL [facility] Complete Blood Count Auto Di ffon 03-05-2024 Mean Corpuscular HGB Conc 33.6 g/dL Normal 32.0-35.0 [facility] Comment on above: Performed By: #### T SH3, A1C WTH eA, CBC, CMP, LIPID, T4F ####[place] [address] [address] NRBC% 0.1 /100{WBC} Normal 0-0.5 [facility] Comment on above: Performed By: #### T SH3, A1C WTH eA, CBC, CMP, LIPID, T4F ####[facility] Comprehensive Metabolic Pane matty 03-05-2024 Albumin [Mass/Vol] 4.0 g/dL Normal 3.5-5.7 [facility] Comment on above: Performed By: #### T SH3, A1C WTH eA, CBC, CMP, LIPID, T4F ####[place] [address] [place] [address] [facility] GFR/1.73 sq M.predicted MDRD (S/P/Bld) [Vol rate/Area] mL/min/{1.73_m2} Normal [facility] Comment on above: Performed By: #### T SH3, A1C WTH eA, CBC, CMP, LIPID, T4F ####[place] [id number] [facility] Creatinine [Mass/volume] in Serum or PlasmaOrdered By: Peter Ahumada on 03-05-2024 Creatinine [Mass/Vol] 0.63 mg/dL Normal 0.60-1.20 [facility] Comment on above: Performed By: #### T SH3, A1C WTH eA, CBC, CMP, LIPID, T4F ####[place] [id number] [facility] Erythrocyte distribution wid th [Ratio] by Automated countOrdered By: Peter Ahumada on 03-05-2024 Erythrocyte distribution width (RBC) [Ratio] 13.4 % Normal 11.9-15.3 [facility] Comment on above: Performed By: #### T SH3, A1C WTH eA, CBC, CMP, LIPID, T4F ####[place] [id number] [facility] Erythrocytes [#/volume] in B lood by Automated countOrdered By: Peter Ahumada on 03-05-2024 RBC (Bld) [#/Vol] 4.44 10*6/uL Normal 3.60-5.00 [facility] Comment on above: Performed By: #### T SH3, A1C WTH eA, CBC, CMP, LIPID, T4F ####[place] [id number] [facility] Glucose [Mass/volume] in Ser um or PlasmaOrdered By: Peter Ahumada on 03-05-2024 Glucose [Mass/Vol] 96 mg/dL Normal 70-100 [facility] Comment on above: ADA recommended refe rence rangeRandom Glucose Reference Range is dependent on time and content of last meal. Glucose of more than 200 mg/dL in a nonstressed, ambulatory subject supports the diagnosis of Diabetes Mellitus. Result Comment: [facility] Glucose Reference Range is dependent on time and content of last meal. Glucose of more than 200 mg/dL in a nonstressed, ambulatory subject supports the diagnosis of Diabetes Mellitus. ADA recommended reference range Performed By: #### T SH3, A1C WTH eA, CBC, CMP, LIPID, T4F ####[place] [id number] [place] [id number] [facility] Glucose mean value [Mass/vol ume] in Blood Estimated from glycated hemoglobinOrdered By: Peter Ahumada on 03-05-2024 Average glucose Estimated from glycated hemoglobin (Bld) [Mass/Vol] 128 mg/dL [facility] Hematocrit [Volume Fraction] of Blood by Automated countOrdered By: Peter Ahumada on 03-05-2024 Hematocrit (Bld) [Volume fraction] 37.2 % Normal 34.0-46.4 [facility] Comment on above: Performed By: #### T SH3, A1C WTH eA, CBC, CMP, LIPID, T4F ####[place] [id number] [place] [id number] [facility] Hemoglobin A1c percentageOrd ered By: Peter Ahumada on 03-05-2024 HbA1c (Bld) [Mass fraction] 6.1 % High 4.3-5.6 [facility] Comment on above: Increased risk for d iabetes: 5.7 - 6.4diabetes: >6.4glycemic control for adults with diabetes: <7.0 Result Comment: Incr eased risk for diabetes: 5.7 - 6.4 diabetes: >6.4 glycemic control for adults with diabetes: <7.0 Performed By: #### T SH3, A1C WTH eA, CBC, CMP, LIPID, T4F ####[place] [id number] [facility] Hemoglobin [Mass/volume] in BloodOrdered By: Peter Ahumada on 03-05-2024 Hemoglobin (Bld) [Mass/Vol] 12.5 g/dL Normal 11.8-15.4 [facility] Comment on above: Performed By: #### T SH3, A1C WTH eA, CBC, CMP, LIPID, T4F ####[facility] [place] [address] [facility] Leukocytes [#/volume] correc bryan for nucleated erythrocytes in Blood by Automated counOrdered By: Peter Ahumada on 03-05-2024 WBC corrected for nucl RBC Auto (Bld) [#/Vol] 6.2 10*3/uL 3.8-11.6 [facility] Leukocytes [#/volume] in Blo od by Automated countOrdered By: Peter Ahumada on 03-05-2024 WBC (Bld) [#/Vol] 6.2 10*3/uL Normal 3.8-11.6 [facility] Comment on above: Performed By: #### T SH3, A1C WTH eA, CBC, CMP, LIPID, T4F ####[facility] [place] [address] [facility] Lipid Panelon 03-05-2024 LDL Cholesterol,Calculated 76 mg/dL Normal 0-100 [facility] Comment on above: Result Comment: LDL ATP III CLASSIFICATION LDL less than 100 mg/dL Optimal LDL 100-129 mg/dL Near or above optimal LDL 130-159 mg/dL Borderline high LDL 160-189 mg/dL High LDL greater than 189 mg/dL Very high Performed By: #### T SH3, A1C WTH eA, CBC, CMP, LIPID, T4F ####[place] [id number] [place] [id number] [facility] Triglyceride w/Reflex 202 mg/dL High 0-149 [facility] [facility] Comment on above: Result Comment: TRIG ATP III CLASSIFICATION TRIG less than 150 mg/dL Normal TRIG 150-199 mg/dL Borderline high TRIG 200-500 mg/dL High TRIG greater than 500 mg/dL Very high Standard traceable to the Center for Disease Conrtrol and Prevention (CDC) test method. Performed By: #### T SH3, A1C WTH eA, CBC, CMP, LIPID, T4F ####[facility] [place] [address] [facility] VLDL CHOLESTEROL 40 mg/dL Normal [facility] Comment on above: Performed By: #### T SH3, A1C WTH eA, CBC, CMP, LIPID, T4F ####[place] [id number] [place] [id number] [facility] Lymphocytes [#/volume] in Bl ood by Automated countOrdered By: Peter Ahumada on 03-05-2024 Lymphocytes (Bld) [#/Vol] 2.2 10*3/uL Normal 1.00-4.8 [facility] Comment on above: Performed By: #### T SH3, A1C WTH eA, CBC, CMP, LIPID, T4F ####[place] [id number] [facility] Lymphocytes/100 leukocytes i n Blood by Automated countOrdered By: Peter Ahumada on 03-05-2024 Lymphocytes/100 WBC (Bld) 36.3 % Normal . [facility] Comment on above: Performed By: #### T SH3, A1C WTH eA, CBC, CMP, LIPID, T4F ####[place] [id number] [facility] MCH [Entitic mass] by Automa bryan countOrdered By: Peter Ahumada on 03-05-2024 MCH (RBC) [Entitic mass] 28.2 pg Normal 24.7-34.3 [facility] Comment on above: Performed By: #### T SH3, A1C WTH eA, CBC, CMP, LIPID, T4F ####[place] [id number] [facility] MCHC Auto (RBC) [Mass/Vol]Or dered By: Peter Ahumada on 03-05-2024 MCHC (RBC) [Mass/Vol] 33.6 g/dL 32.0-35.0 [facility] MCV [Entitic volume] by Auto mated countOrdered By: Peter Ahumada on 03-05-2024 MCV (RBC) [Entitic vol] 83.8 fL Normal 80-100 [facility] Comment on above: Performed By: #### T SH3, A1C WTH eA, CBC, CMP, LIPID, T4F ####[place] [id number] [facility] Neutrophils [#/volume] in Bl ood by Automated countOrdered By: Peter Ahumada on 03-05-2024 Neutrophils (Bld) [#/Vol] 3.3 10*3/uL Normal 1.8-7.7 [facility] Comment on above: Performed By: #### T SH3, A1C WTH eA, CBC, CMP, LIPID, T4F ####[place] [id number] No Panel InformationOrdered By: Peter Ahumada on 03-05-2024 Estimated GFR (CKD-EPI) > 60.0 mL/Min [facility] Creatinine Clearance (Chem N/A [facility] Nucleated erythrocytes [Pres ence] in Blood by Automated countOrdered By: Peter Ahumada on 03-05-2024 Nucleated RBC Auto Ql (Bld) 0.1 /100{WBC} 0-0.5 [facility] Platelet mean volume [Entiti c volume] in Blood by Automated countOrdered By: Peter Ahumada on 03-05-2024 Platelet mean volume (Bld) [Entitic vol] 8.7 fL Normal 6.3-10.7 [facility] Comment on above: Performed By: #### T SH3, A1C WTH eA, CBC, CMP, LIPID, T4F ####[place] [id number] Platelets [#/volume] in Bloo d by Automated countOrdered By: Peter Ahumada on 03-05-2024 Platelets (Bld) [#/Vol] 333 10*3/uL Normal 150-450 [facility] Comment on above: Performed By: #### T SH3, A1C WTH eA, CBC, CMP, LIPID, T4F ####[address] Potassium [Moles/volume] in Serum or PlasmaOrdered By: Peter Ahumada on 03-05-2024 Potassium [Moles/Vol] 3.8 mmol/L Normal 3.5-5.1 [facility] Comment on above: Performed By: #### T SH3, A1C WTH eA, CBC, CMP, LIPID, T4F ####[address] Protein [Mass/volume] in Ser um or PlasmaOrdered By: Peter Ahumada on 03-05-2024 Protein [Mass/Vol] 6.7 g/dL Normal 6.4-8.9 [facility] Comment on above: Performed By: #### T SH3, A1C WTH eA, CBC, CMP, LIPID, T4F ####[place] [id number] Serum globulin measurement b y calculation (mass/volume)Ordered By: Peter Ahumada on 03-05-2024 Globulin (S) [Mass/Vol] 2.7 g/dL [facility] Comment on above: Performed By: #### T SH3, A1C WTH eA, CBC, CMP, LIPID, T4F ####[place] [id number] Serum or plasma albumin/glob ulin mass ratioOrdered By: Peter Ahumada on 03-05-2024 Albumin/Globulin [Mass ratio] 1.5 {ratio} [facility] Comment on above: Performed By: #### T SH3, A1C WTH eA, CBC, CMP, LIPID, T4F ####[place] [id number] Serum or plasma anion gap de terminationOrdered By: Peter Ahumada on 03-05-2024 Anion gap [Moles/Vol] 11.1 mmol/L Normal 6.0-15.0 [facility] Comment on above: Performed By: #### T SH3, A1C WTH eA, CBC, CMP, LIPID, T4F ####[facility] Serum or plasma high density lipoprotein (HDL) cholesterol measurementOrdered By: Peter Ahumada on 03-05-2024 Cholesterol in HDL [Mass/Vol] 50 mg/dL Normal 23-92 [facility] Comment on above: HDL CHOL ATP-III CLA SSIFICATION Cardiovascular RiskHDL > or equal to 60 mg/dL LOWHDL < 40 mg/dL HIGH Result Comment: HDL CHOL ATP-III CLASSIFICATION Cardiovascular Risk HDL > or equal to 60 mg/dL LOW HDL < 40 mg/dL HIGH Performed By: #### T SH3, A1C WTH eA, CBC, CMP, LIPID, T4F ####[address] Serum or plasma total choles terol/high density lipoprotein (HDL) cholesterol mass ratOrdered By: Peter Ahumada on 03-05-2024 Cholesterol.total/Chol esterol in HDL [Mass ratio] 3.3 {ratio} Normal <5.0 [facility] Comment on above: Performed By: #### T SH3, A1C WTH eA, CBC, CMP, LIPID, T4F ####[place] [id number] [facility] Sodium [Moles/volume] in Ser um or PlasmaOrdered By: Peter Ahumada on 03-05-2024 Sodium [Moles/Vol] 139 mmol/L Normal 136-145 [facility] Comment on above: Performed By: #### T SH3, A1C WT eA, CBC, CMP, LIPID, T4F ####[place] [id number] [facility] Thyrotropin [Units/volume] i n Serum or PlasmaOrdered By: Peter Ahumada on 03-05-2024 TSH Qn 0.29 m[IU]/L Low 0.45-5.33 [facility] Comment on above: Result Comment: PERF ORMED BY: [facility] [address] [place] [address] PATHOLOGIST [employer] REPRESENTATIVE ALVIN VIDES M.D. Performed By: #### T SH3, A1C WT eA, CBC, CMP, LIPID, T4F ####[place] [id number] [facility] Thyroxine (T4) free [Mass/vo lume] in Serum or PlasmaOrdered By: Peter Ahumada on 03-05-2024 Free T4 [Mass/Vol] 0.81 ng/dL Normal 0.61-1.12 [facility] Comment on above: Performed By: #### T SH3, A1C WTH eA, CBC, CMP, LIPID, T4F ####[place] [id number] [facility] Triglyceride [Mass/volume] i n Serum or PlasmaOrdered By: Peter Ahumada on 03-05-2024 Triglyceride [Mass/Vol] 202 mg/dL High 0-149 [facility] Comment on above: TRIG ATP III CLASSIF ICATIONTRIG less than 150 mg/dL NormalTRIG 150-199 mg/dL Borderline highTRIG 200-500 mg/dL High TRIG greater than 500 mg/dL Very highStandard traceable to the Center for Disease Conrtrol and Prevention (CDC) test method. Urea nitrogen [Mass/volume] in Serum or PlasmaOrdered By: Peter Ahumada on 03-05-2024 Urea nitrogen [Mass/Vol] 11 mg/dL Normal 7-25 [facility] Comment on above: Performed By: #### T SH3, A1C WTH eA, CBC, CMP, LIPID, T4F ####[facility] [address] [place] [address] [facility] XR elbow RT 2Von 02-13-2024 XR elbow RT 2V [facility] [address] [place] [id number] XRay Report Signed Patient: Darling Khanna MR#: [id number] 1872 : 1980 Acct:[id number] Age/Sex: 43 / F ADM Date: 02/13/24 Loc: [facility] Room: Type: [facility] Attending Dr: Chas Meza DO Copies to: [...] Osmani Stovall M.D.02/13/2024 4:07 PM Dictation Location: [place] [address] Transcribed By: ADIA 02/13/24 1607 Dictated By: Osmani Stovall DO 02/13/24 1607 Signed By: 02/13/24 1607 Normal [facility] HCG ( test) IAshashi d Ql (U)Ordered By: Rahul Rogers on 01-29-2024 HCG ( test) Ql (U) Negative [facility] HCG,Urineon 01-29-2024 Beta HCG ( test) Ql (U) Negative Normal [facility] Comment on above: Result Comment: PERF ORMED BY: [place] [address] PATHOLOGIST [employer] REPRESENTATIVE ALVIN VIDES M.D. Performed By: #### U HCG #### [address] XR elbow RT 2Von 01-14-2024 XR elbow RT 2V [facility] [address] [place] [address] XRay Report Signed Patient: Darling Khanna MR#: [id number] 18[birth year] : 1980 Acct:[id number] Age/Sex: 43 / F ADM Date: 01/14/24 Loc: [facility] Room: Type: [facility] Attending Dr: Chas Meza DO Copies to: [...] Chetan Ortiz M.D.01/14/2024 3:36 PM Dictation Location: [place] [address] Transcribed By: ADIA 01/14/24 1536 Dictated By: Chetan Ortiz II, MD 01/14/24 1535 Signed By: 01/14/24 1536 Normal [facility] US abdomen limitedon 024 US abdomen limited [facility] [place] [address] Ultrasound Report Signed Patient: Darling Khanna MR#: [id number] 18[birth year] : 1980 Acct:[id number] Age/Sex: 43 / F ADM Date: 12/31/23 Loc: Room: Type: [facility] Attending Dr: Alber Haines DO Ordering Provider: [...] Ayleen Zheng M.D.12/31/2023 12:14 PM Dictation Location: [facility] Tech: Nellie Solis Transcribed By: ADIA 12/31/23 1214 Dictated By: Ayleen Zheng MD 12/31/23 1206 Signed By: 12/31/23 1214 Normal [facility] XR knee RT 4V*on 12-28-2023 XR knee RT 4V* [facility] Main [address] [address] XRay Report Signed Patient: Darling Khanna MR#: [id number] 18[birth year] : 1980 Acct:[id number] Age/Sex: 43 / F ADM Date: 12/28/23 Loc: XD Room: Type: [facility] Attending Dr: Peter Ahumada DO Copies to: Peter Ahumada DO Ordering Provider: Peter Ahumada DO Date of Service: 12/28/23 XR/XR elbow RT min 3V*: Suspicion for fracture ([id number]) XR/XR knee RT 4V*: W19.XXXA - Unspecified [...] Osmani Stovall M.D.12/28/2023 9:38 AM Dictation Location: [place] [address] Transcribed By: [facility] 12/28/2338 Dictated By: Osmani Stovall DO 12/28/23 0932 Signed By: 12/28/23 0938 Normal [facility] XR clavicle RT*on 12-17-2023 XR clavicle RT* [facility] Main [address] [address] XRay Report Signed Patient: Darling Khanna MR#: [id number] 18[birth year] : 1980 Acct:[id number] Age/Sex: 43 / F ADM Date: 12/17/23 Loc: ER Room: Type: [facility] ER Attending Dr: Copies to: Igor Rudd MD Ordering Provider: Igor Rudd MD Date of Service: 12/17/23 XR/XR clavicle RT*: Fall ([id number]) XR/XR shoulder RT min 2V*: Fall XR [...] Chetan Ortiz M.D.12/17/2023 9:23 AM Dictation Location: [place] [address] Transcribed By: [facility] 12/17/23922 Dictated By: Chetan Ortiz II, MD 12/17/23918 Signed By: 12/17/23922 Normal [facility] XR forearm RT 2V*on 12-17-19 XR forearm RT 2V* [facility] Main [place] [address] [place] [address] XRay Report Signed Patient: Darling Khanna MR#: [id number] 1870 : 1980 Acct:[id number] Age/Sex: 43 / F ADM Date: 12/17/23 Loc: ER Room: Type: [facility] ER Attending Dr: Copies to: Igor Rudd [...] 9:24 AM Dictation Location: [facility] Transcribed By: ADIA 12/17/23923 Dictated By: Chetan Ortiz II, MD 12/17/23922 Signed By: 12/17/23923 Normal [facility] XR knee LT 2Von 12-17-2023 XR knee LT 2V [facility] [place] [address] XRay Report Signed Patient: Darling Khanna MR#: [id number] 1870 : 1980 Acct:[id number] Age/Sex: 43 / F ADM Date: 12/17/23 Loc: ER Room: Type: [facility] ER Attending Dr: Copies to: Igor Rudd [...] 9:25 AM Dictation Location: [facility] Transcribed By: ADIA 12/17/23924 Dictated By: Chetan Ortiz II, MD 12/17/23923 Signed By: 12/17/23924 Normal [facility] MM screening mammo BI w/CADo n 12-03-2023 MM screening mammo BI w/CAD [facility] [place] [address] [place] [address] Mammography Report Signed Patient: Darling Khanna MR#: [id number] 1870 : 1980 Acct:[id number] Age/Sex: 43 / F ADM Date: 12/03/23 Loc: [place] Room: Type: [facility] Attending Dr: Referral Self Copies to: Peter [...] Chetan Ortiz M.D.12/03/2023 4:13 PM Dictation Location: [facility] Transcribed By: ADIA 12/03/23 1613 Dictated By: Chetan Ortiz II, MD 12/03/23 1607 Signed By: 12/03/23 1612 Normal [facility] Thyrotropin [Units/volume] i n Serum or PlasmaOrdered By: Peter Ahumada on 08-22-2023 TSH Qn 0.15 m[IU]/L Low 0.45-5.33 [facility] Comment on above: Order Comment: Reaso n for Exam Hypothyroidism Result Comment: PERF ORMED BY: [place] [address] PATHOLOGIST [employer] SAL[employer] REPRESENTATIVE ALVIN VIDES M.D. Performed By: #### T 4F, TSH3 ####[address] Thyroxine (T4) free [Mass/vo lume] in Serum or PlasmaOrdered By: Peter Ahumada on 08-22-2023 Free T4 [Mass/Vol] 0.97 ng/dL Normal 0.61-1.12 [facility] Comment on above: Order Comment: Reaso n for Exam Hypothyroidism Performed By: #### T 4F, TSH3 ####[address] US breast LT limitedon 08-13 US breast LT limited [facility] [place] [address] Ultrasound Report Signed Patient: Darling Khanna MR#: [id number] 1870 : 1980 Acct:[id number] Age/Sex: 43 / F ADM Date: 08/13/23 Loc: [place] Room: Type: [facility] Attending Dr: Peter Ahumada DO Ordering Provider: [...] mammogram. Impression dictated by: Maurice Person Jr., D.ORowan08/13/2023 11:14 AM Dictation Location: [facility] Tech: Dayan Ahumada Transcribed By: ADIA 08/13/23 1114 Dictated By: Maurice Person Jr, DO 08/13/23 1111 Signed By: 08/13/23 1114 Normal [facility] Alanine aminotransferase [En zymatic activity/volume] in Serum or PlasmaOrdered By: Peter Ahumada on 05-25-2023 ALT [Catalytic activity/Vol] 7 U/L 7-52 [facility] Albumin [Mass/volume] in Ser um or Plasma by Bromocresol green (BCG) dye binding methoOrdered By: Peter Ahumada on 05-25-2023 Albumin BCG dye [Mass/Vol] 3.8 g/dL 3.5-5.7 [facility] Alkaline phosphatase [Enzyma tic activity/volume] in Serum or PlasmaOrdered By: Peter Ahumada on 05-25-2023 ALP [Catalytic activity/Vol] 54 U/L 34-104 [facility] Aspartate aminotransferase [ Enzymatic activity/volume] in Serum or PlasmaOrdered By: Peter Ahumada on 05-25-2023 AST [Catalytic activity/Vol] 17 U/L 13-39 [facility] Basophils Auto (Bld) [#/Vol] Ordered By: Peter Ahumada on 05-25-2023 Basophils (Bld) [#/Vol] 0.1 10*3/uL 0.0-0.2 [facility] Basophils/100 WBC Auto (Bld) Ordered By: Peter Ahumada on 05-25-2023 Basophils/100 WBC (Bld) 1.1 % . [facility] Bilirubin.total [Mass/volume ] in Serum or PlasmaOrdered By: Peter Ahumada on 05-25-2023 Bilirubin [Mass/Vol] 0.3 mg/dL 0.3-1.0 [facility] Calcium [Mass/volume] in Ser um or PlasmaOrdered By: Peter Ahumada on 05-25-2023 Calcium [Mass/Vol] 8.8 mg/dL 8.6-10.3 [facility] Carbon dioxide, total [Moles /volume] in Serum or PlasmaOrdered By: Peter Ahumada on 05-25-2023 CO2 [Moles/Vol] 29.9 mmol/L 21.0-31.0 [facility] Chloride [Moles/volume] in S renetta or PlasmaOrdered By: Peter Auhmada on 05-25-2023 Chloride [Moles/Vol] 107 mmol/L 98-107 [facility] Cholesterol [Mass/volume] in Serum or PlasmaOrdered By: Peter Ahumada on 05-25-2023 Cholesterol [Mass/Vol] 181 mg/dL 140-200 [facility] Comment on above: Chol less than 200 m g/dl low riskChol 201-239 mg/dl borderline riskChol 240 mg/dl and greater high risk Cholesterol in LDL Calc [Mas s/Vol]Ordered By: Peter Ahumada on 05-25-2023 Cholesterol in LDL [Mass/Vol] 115 mg/dL 0-100 [facility] Comment on above: LDL ATP III CLASSIFI CATIONLDL less than 100 mg/dL OptimalLDL 100-129 mg/dL Near or above optimalLDL 130-159 mg/dL Borderline highLDL 160-189 mg/dL HighLDL greater than 189 mg/dL Very high Cholesterol in VLDL Calc [Ma ss/Vol]Ordered By: Peter Ahumada on 05-25-2023 Cholesterol in VLDL [Mass/Vol] 22 mg/dL [facility] Creatinine [Mass/volume] in Serum or PlasmaOrdered By: Peter Ahumada on 05-25-2023 Creatinine [Mass/Vol] 0.59 mg/dL 0.60-1.20 [facility] Eosinophils Auto (Bld) [#/Vo l]Ordered By: Peter Ahumada on 05-25-2023 Eosinophils (Bld) [#/Vol] 0.1 10*3/uL 0.0-0.45 [facility] Eosinophils/100 WBC Auto (Bl d)Ordered By: Peter Ahumada on 05-25-2023 Eosinophils/100 WBC (Bld) 1.9 % . [facility] Erythrocyte distribution wid th Auto (RBC) [Ratio]Ordered By: Peter Ahumada on 05-25-2023 Erythrocyte distribution width (RBC) [Ratio] 13.7 % 11.9-15.3 [facility] Globulin Calc (S) [Mass/Vol] Ordered By: Peter Ahumada on 05-25-2023 Globulin (S) [Mass/Vol] 2.7 g/dL [facility] Glucose [Mass/volume] in Ser um or PlasmaOrdered By: Peter Ahumada on 05-25-2023 Glucose [Mass/Vol] 87 mg/dL 70-100 [facility] Comment on above: ADA recommended refe [...] from glycated hemoglobin (Bld) [Mass/Vol] 126 mg/dL [facility] Hematocrit Auto (Bld) [Volum e fraction]Ordered By: Peter Ahumada on 05-25-2023 Hematocrit (Bld) [Volume fraction] 36.2 % 34.0-46.4 [facility] Hemoglobin A1c percentageOrd ered By: Peter Ahumada on 05-25-2023 HbA1c (Bld) [Mass fraction] 6.0 % 4.3-5.6 [facility] Comment on above: Increased risk for d iabetes: 5.7 - 6.4diabetes: >6.4glycemic control for adults with diabetes: <7.0 Hemoglobin [Mass/volume] in BloodOrdered By: Peter Ahumada on 05-25-2023 Hemoglobin (Bld) [Mass/Vol] 11.8 g/dL 11.8-15.4 [facility] Leukocytes [#/volume] correc bryan for nucleated erythrocytes in Blood by Automated counOrdered By: Peter Ahumada on 05-25-2023 WBC corrected for nucl RBC Auto (Bld) [#/Vol] 6.1 10*3/uL 3.8-11.6 [facility] Lymphocytes Auto (Bld) [#/Vo l]Ordered By: Peter Ahumada on 05-25-2023 Lymphocytes (Bld) [#/Vol] 2.0 10*3/uL 1.00-4.8 [facility] Lymphocytes/100 WBC Auto (Bl d)Ordered By: Peter Ahumada on 05-25-2023 Lymphocytes/100 WBC (Bld) 32.1 % . [facility] MCH Auto (RBC) [Entitic mass ]Ordered By: Peter Ahumada on 05-25-2023 MCH (RBC) [Entitic mass] 27.3 pg 24.7-34.3 [facility] MCHC Auto (RBC) [Mass/Vol]Or dered By: Peter Ahumada on 05-25-2023 MCHC (RBC) [Mass/Vol] 32.7 g/dL 32.0-35.0 [facility] MCV Auto (RBC) [Entitic vol] Ordered By: Peter Ahumada on 05-25-2023 MCV (RBC) [Entitic vol] 83.5 fL 80-100 [facility] Monocytes Auto (Bld) [#/Vol] Ordered By: Peter Ahumada on 05-25-2023 Monocytes (Bld) [#/Vol] 0.3 10*3/uL 0.0-0.8 [facility] Monocytes/100 WBC Auto (Bld) Ordered By: Peter Ahumada on 05-25-2023 Monocytes/100 WBC (Bld) 5.2 % . [facility] Neutrophils Auto (Bld) [#/Vo l]Ordered By: Peter Ahumada on 05-25-2023 Neutrophils (Bld) [#/Vol] 3.6 10*3/uL 1.8-7.7 [facility] Neutrophils/100 WBC Auto (Bl d)Ordered By: Peter Ahumada on 05-25-2023 Neutrophils/100 WBC (Bld) 59.7 % . [facility] No Panel InformationOrdered By: Peter Ahumada on 05-25-2023 Estimated GFR (CKD-EPI) > 60.0 mL/Min [facility] Creatinine Clearance (Chem N/A [facility] Nucleated erythrocytes [Pres ence] in Blood by Automated countOrdered By: Peter Ahumada on 05-25-2023 Nucleated RBC Auto Ql (Bld) 0.1 /100{WBC} 0-0.5 [facility] Platelet mean volume Auto (B ld) [Entitic vol]Ordered By: Peter Ahumada on 05-25-2023 Platelet mean volume (Bld) [Entitic vol] 8.5 fL 6.3-10.7 [facility] Platelets Auto (Bld) [#/Vol] Ordered By: Peter Ahumada on 05-25-2023 Platelets (Bld) [#/Vol] 364 10*3/uL 150-450 [facility] Potassium [Moles/volume] in Serum or PlasmaOrdered By: Peter Ahumada on 05-25-2023 Potassium [Moles/Vol] 4.0 mmol/L 3.5-5.1 [facility] Protein [Mass/volume] in Ser um or PlasmaOrdered By: Peter Ahumada on 05-25-2023 Protein [Mass/Vol] 6.5 g/dL 6.4-8.9 [facility] RBC Auto (Bld) [#/Vol]Ordere d By: Peter Ahumada on 05-25-2023 RBC (Bld) [#/Vol] 4.34 10*6/uL 3.60-5.00 [facility] Serum or plasma albumin/glob ulin mass ratioOrdered By: Peter Ahumada on 05-25-2023 Albumin/Globulin [Mass ratio] 1.4 {ratio} [facility] Serum or plasma anion gap de terminationOrdered By: Peter Ahumada on 05-25-2023 Anion gap [Moles/Vol] 10.1 mmol/L 6.0-15.0 [facility] Serum or plasma high density lipoprotein (HDL) cholesterol measurementOrdered By: Peter Ahumada on 05-25-2023 Cholesterol in HDL [Mass/Vol] 44 mg/dL 23-92 [facility] Comment on above: HDL CHOL ATP-III CLA SSIFICATION Cardiovascular RiskHDL > or equal to 60 mg/dL LOWHDL < 40 mg/dL HIGH Serum or plasma total choles terol/high density lipoprotein (HDL) cholesterol mass ratOrdered By: Peter Ahumada on 05-25-2023 Cholesterol.total/Chol esterol in HDL [Mass ratio] 4.1 {ratio} <5.0 [facility] Sodium [Moles/volume] in Ser um or PlasmaOrdered By: Peter Ahumada on 05-25-2023 Sodium [Moles/Vol] 143 mmol/L 136-145 [facility] Thyrotropin [Units/volume] i n Serum or PlasmaOrdered By: Peter Ahumada on 05-25-2023 TSH Qn 0.73 m[IU]/L 0.45-5.33 [facility] Thyroxine (T4) free [Mass/vo lume] in Serum or PlasmaOrdered By: Peter Ahumada on 05-25-2023 Free T4 [Mass/Vol] 0.79 ng/dL 0.61-1.12 [facility] Triglyceride [Mass/volume] i n Serum or PlasmaOrdered By: Peter Ahumada on 05-25-2023 Triglyceride [Mass/Vol] 112 mg/dL 0-149 [facility] Comment on above: TRIG ATP III CLASSIF ICATIONTRIG less than 150 mg/dL NormalTRIG 150-199 mg/dL Borderline highTRIG 200-500 mg/dL High TRIG greater than 500 mg/dL Very highStandard traceable to the Center for Disease Conrtrol and Prevention (CDC) test method. Urea nitrogen [Mass/volume] in Serum or PlasmaOrdered By: Peter Ahumada on 05-25-2023 Urea nitrogen [Mass/Vol] 10 mg/dL 7-25 [facility] WBC Auto (Bld) [#/Vol]Ordere d By: Peter Ahumada on 05-25-2023 WBC (Bld) [#/Vol] 6.1 10*3/uL 3.8-11.6 [facility] Thyrotropin [Units/volume] i n Serum or PlasmaOrdered By: Peter Ahumada on 03-19-2023 TSH Qn 2.20 m[IU]/L 0.45-5.33 [facility] Thyroxine (T4) free [Mass/vo lume] in Serum or PlasmaOrdered By: Peter Ahumada on 03-19-2023 Free T4 [Mass/Vol] 0.62 ng/dL 0.61-1.12 [facility] Alanine aminotransferase [En zymatic activity/volume] in Serum or PlasmaOrdered By: Alba Marshall on 11-01-2022 ALT [Catalytic activity/Vol] 7 U/L 7-52 [facility] Albumin [Mass/volume] in Ser um or Plasma by Bromocresol green (BCG) dye binding methoOrdered By: Alba Marshall on 11-01-2022 Albumin BCG dye [Mass/Vol] 3.7 g/dL 3.5-5.7 [facility] Alkaline phosphatase [Enzyma tic activity/volume] in Serum or PlasmaOrdered By: Alba Wrenlila on 11-01-2022 ALP [Catalytic activity/Vol] 47 U/L 34-104 [facility] Aspartate aminotransferase [ Enzymatic activity/volume] in Serum or PlasmaOrdered By: Alba Marshall on 11-01-2022 AST [Catalytic activity/Vol] 12 U/L 13-39 [facility] Automated erythrocytes count in urine sediment (number/area)Ordered By: Alba Marshall on 11-01-2022 RBC Auto (Urine sed) [#/Area] 1-2 [HPF] 0-4 [facility] Comment on above: --- 11/01/22 1049 -- -Ur RBC previously reported as: 1-2 /HPFMicroscopic results may be affected due to low specimen volume. Automated leukocytes count i n urine sediment (number/area)Ordered By: Alba Marshall on 11-01-2022 WBC Auto (Urine sed) [#/Area] 1-2 [HPF] 0-4 [facility] Basophils Auto (Bld) [#/Vol] Ordered By: Alba Marshall on 11-01-2022 Basophils (Bld) [#/Vol] 0.1 10*3/uL 0.0-0.2 [facility] Basophils/100 WBC Auto (Bld) Ordered By: Albayehuda Marshall on 11-01-2022 Basophils/100 WBC (Bld) 0.9 % . [facility] Bilirubin Test strip Ql (U)O rdered By: Alba Marshall on 11-01-2022 Bilirubin Ql (U) Negative Negative [facility] Bilirubin.direct [Mass/volum e] in Serum or PlasmaOrdered By: Alba Marshall on 11-01-2022 Bilirubin.direct [Mass/Vol] 0.10 mg/dL 0.03-0.18 [facility] Bilirubin.total [Mass/volume ] in Serum or PlasmaOrdered By: Alba Marshall on 11-01-2022 Bilirubin [Mass/Vol] 0.3 mg/dL 0.3-1.0 [facility] Calcium [Mass/volume] in Ser um or PlasmaOrdered By: Alba Wrenimore on 11-01-2022 Calcium [Mass/Vol] 8.8 mg/dL 8.6-10.3 [facility] Carbon dioxide, total [Moles /volume] in Serum or PlasmaOrdered By: Alba Marshall on 11-01-2022 CO2 [Moles/Vol] 27.6 mmol/L 21.0-31.0 [facility] Chloride [Moles/volume] in S renetta or PlasmaOrdered By: Alba Marshall on 11-01-2022 Chloride [Moles/Vol] 105 mmol/L 98-107 [facility] Choriogonadotropin.beta subu nit [Units/volume] in Serum or PlasmaOrdered By: Alba Marshall on 11-01-2022 HCG.beta subunit Qn m[IU]/mL [facility] Comment on above: Approximate Approxim ate hCG Gestational Age Range (mIU/ml) (weeks)0.2-1 5-50 1-2 50-500 2-3 100-5,000 3-4 500-10,000 4-5 1,000-50,000 5-6 10,000-100,000 6-8 15,000-200,000 8-12 10,000-100,000 Color Auto (U)Ordered By: Malgorzata Marshall on 11-01-2022 Color (U) Yellow Yellow [facility] Creatinine [Mass/volume] in Serum or PlasmaOrdered By: Alba Bullimore on 11-01-2022 Creatinine [Mass/Vol] 0.60 mg/dL 0.60-1.20 [facility] Eosinophils Auto (Bld) [#/Vo l]Ordered By: Alba Marshall on 11-01-2022 Eosinophils (Bld) [#/Vol] 0.2 10*3/uL 0.0-0.45 [facility] Eosinophils/100 WBC Auto (Bl d)Ordered By: Albayehuda Marshall on 11-01-2022 Eosinophils/100 WBC (Bld) 3.0 % . [facility] Erythrocyte distribution wid th Auto (RBC) [Ratio]Ordered By: [facility] on 11-01-2022 Erythrocyte distribution width (RBC) [Ratio] 13.2 % 11.9-15.3 [facility] Globulin Calc (S) [Mass/Vol] Ordered By: [facility] on 11-01-2022 Globulin (S) [Mass/Vol] 3.1 g/dL [facility] Glucose [Mass/volume] in Ser um or PlasmaOrdered By: [facility] on 11-01-2022 Glucose [Mass/Vol] 95 mg/dL 70-100 [facility] Comment on above: ADA recommended refe rence rangeRandom Glucose Reference Range is dependent on time and content of last meal. Glucose of more than 200 mg/dL in a nonstressed, ambulatory subject supports the diagnosis of Diabetes Mellitus. Hematocrit Auto (Bld) [Volum e fraction]Ordered By: [facility]ba [facility] on 11-01-2022 Hematocrit (Bld) [Volume fraction] 36.8 % 34.0-46.4 [facility] Hemoglobin [Mass/volume] in BloodOrdered By: [facility] on 11-01-2022 Hemoglobin (Bld) [Mass/Vol] 12.5 g/dL 11.8-15.4 [facility] Ketones Auto test strip (U) [Mass/Vol]Ordered By: [facility] on 11-01-2022 Ketones (U) [Mass/Vol] Negative Negative [facility] - UrinalysisOrder ed By: Alba Marshall on 11-01-2022 Hyaline casts LM Ql (Urine sed) 0-8 [LPF] 0-8 [facility] Leukocytes [#/volume] correc bryan for nucleated erythrocytes in Blood by Automated counOrdered By: Alba Bullimore on 11-01-2022 WBC corrected for nucl RBC Auto (Bld) [#/Vol] 7.8 10*3/uL 3.8-11.6 [facility] Lymphocytes Auto (Bld) [#/Vo l]Ordered By: Alba Bullimore on 11-01-2022 Lymphocytes (Bld) [#/Vol] 1.5 10*3/uL 1.00-4.8 [facility] Lymphocytes/100 WBC Auto (Bl d)Ordered By: Alba Bullimore on 11-01-2022 Lymphocytes/100 WBC (Bld) 19.6 % . [facility] MCH Auto (RBC) [Entitic mass ]Ordered By: Alba Bullimore on 11-01-2022 MCH (RBC) [Entitic mass] 28.3 pg 24.7-34.3 [facility] MCHC Auto (RBC) [Mass/Vol]Or dered By: Alba Bullimore on 11-01-2022 MCHC (RBC) [Mass/Vol] 33.9 g/dL 32.0-35.0 [facility] MCV Auto (RBC) [Entitic vol] Ordered By: Alba Bullimore on 11-01-2022 MCV (RBC) [Entitic vol] 83.3 fL 80-100 [facility] Monocyte distribution width [Entitic volume] in Blood by AutomatedOrdered By: Alba Bullimore on 11-01-2022 Monocyte distribution width Auto (Bld) [Entitic vol] 17.79 % 0.00-20.00 [facility] Monocytes Auto (Bld) [#/Vol] Ordered By: Alba Bullimore on 11-01-2022 Monocytes (Bld) [#/Vol] 0.5 10*3/uL 0.0-0.8 [facility] Monocytes/100 WBC Auto (Bld) Ordered By: Alba Bullimore on 11-01-2022 Monocytes/100 WBC (Bld) 6.9 % . [facility] Neutrophils Auto (Bld) [#/Vo l]Ordered By: Alba Wrenimore on 11-01-2022 Neutrophils (Bld) [#/Vol] 5.4 10*3/uL 1.8-7.7 [facility] Neutrophils/100 WBC Auto (Bl d)Ordered By: Alba Bullimore on 11-01-2022 Neutrophils/100 WBC (Bld) 69.6 % . [facility] Nitrite Test strip Ql (U)Ord ered By: Alba Bullimore on 11-01-2022 Nitrite Ql (U) Negative Negative [facility] No Panel InformationOrdered By: Alba Holgerimore on 11-01-2022 Estimated GFR (CKD-EPI) > 60.0 mL/Min [facility] Creatinine Clearance (Chem 179.12 [facility] Nucleated erythrocytes [Pres ence] in Blood by Automated countOrdered By: Alba Wrenimore on 11-01-2022 Nucleated RBC Auto Ql (Bld) 0.1 /100{WBC} 0-0.5 [facility] Platelet mean volume Auto (B ld) [Entitic vol]Ordered By: Alba Bullimore on 11-01-2022 Platelet mean volume (Bld) [Entitic vol] 7.5 fL 6.3-10.7 [facility] Platelets Auto (Bld) [#/Vol] Ordered By: Alba Bullimore on 11-01-2022 Platelets (Bld) [#/Vol] 278 10*3/uL 150-450 [facility] Potassium [Moles/volume] in Serum or PlasmaOrdered By: Alba Bullimore on 11-01-2022 Potassium [Moles/Vol] 4.3 mmol/L 3.5-5.1 [facility] Protein Auto test strip (U) [Mass/Vol]Ordered By: Alba rWenimore on 11-01-2022 Protein (U) [Mass/Vol] Negative Negative [facility] Protein [Mass/volume] in Ser um or PlasmaOrdered By: Alba Bullimore on 11-01-2022 Protein [Mass/Vol] 6.8 g/dL 6.4-8.9 [facility] RBC Auto (Bld) [#/Vol]Ordere d By: Alba Bullimore on 11-01-2022 RBC (Bld) [#/Vol] 4.41 10*6/uL 3.60-5.00 [facility] Serum or plasma albumin/glob ulin mass ratioOrdered By: Albayehuda Marshall on 11-01-2022 Albumin/Globulin [Mass ratio] 1.2 {ratio} [facility] Serum or plasma anion gap de terminationOrdered By: Alba Marshall on 11-01-2022 Anion gap [Moles/Vol] 10.7 mmol/L 6.0-15.0 [facility] Serum or plasma non-glucuron idated bilirubin measurement (mass/volume)Ordered By: Alba Marshall on 11-01-2022 Bilirubin.indirect [Mass/Vol] 0.2 mg/dL [facility] Sodium [Moles/volume] in Ser um or PlasmaOrdered By: Alba Marshall on 11-01-2022 Sodium [Moles/Vol] 139 mmol/L 136-145 [facility] Specific gravity Auto test s trip (U) [Rel density]Ordered By: [facility]ehuda [facility] on 11-01-2022 Specific gravity (U) [Rel density] 1.021 1.001-1.030 [facility] Squamous epithelial cells de tection in urine sediment by light microscopyOrdered By: Albayehuda Marshall on 11-01-2022 Epithelial cells.squamous LM Ql (Urine sed) 3-4 [HPF] 0-2 [facility] Urea nitrogen [Mass/volume] in Serum or PlasmaOrdered By: Alba Marshall on 11-01-2022 Urea nitrogen [Mass/Vol] 7 mg/dL 7-25 [facility] Urine bacteria detection by automated methodOrdered By: [facility] on 11-01-2022 Bacteria Auto Ql (U) 1+ None Seen [facility] Comment on above: --- 11/01/22 1050 -- -Ur Bact previously reported as: 1+ H Microscopic results may be affected due to low specimen volume. Urine clarity by refractomet ry automatedOrdered By: Alba Marshall on 11-01-2022 Clarity Refractometry automated (U) Clear Clear [facility] Urine glucose measurement by automated test strip (mass/volume)Ordered By: Alba Marshall on 11-01-2022 Glucose Auto test strip (U) [Mass/Vol] Normal mg/dL Normal [facility] Urine hemoglobin detection b y automated test stripOrdered By: Alba Marshall on 11-01-2022 Hemoglobin Auto test strip Ql (U) 1+ Negative [facility] Urine leukocyte esterase det ection by automated test stripOrdered By: Alba Marshall on 11-01-2022 Leukocyte esterase Auto test strip Ql (U) Negative Negative [facility] Urobilinogen Auto test strip (U) [Mass/Vol]Ordered By: Alba Marshall on 11-01-2022 Urobilinogen (U) [Mass/Vol] Normal mg/dL Normal [facility] WBC Auto (Bld) [#/Vol]Ordere d By: Alba Marshall on 11-01-2022 WBC (Bld) [#/Vol] 7.8 10*3/uL 3.8-11.6 [facility] Yeast detection in urine sed iment by light microscopyOrdered By: Alba Marshall on 11-01-2022 Yeast LM Ql (Urine sed) None seen [HPF] None Seen [facility] Comment on above: --- 11/01/22 1050 -- [...] on 11-01-2022 pH (U) 6.5 [pH] 5.0-9.0 [facility] Alanine aminotransferase [En zymatic activity/volume] in Serum or PlasmaOrdered By: Peter Ahumada on 10-31-2022 ALT [Catalytic activity/Vol] 8 U/L 7-52 [facility] Albumin [Mass/volume] in Ser um or Plasma by Bromocresol green (BCG) dye binding methoOrdered By: Peter Ahumada on 10-31-2022 Albumin BCG dye [Mass/Vol] 3.8 g/dL 3.5-5.7 [facility] Alkaline phosphatase [Enzyma tic activity/volume] in Serum or PlasmaOrdered By: Peter Ahumada on 10-31-2022 ALP [Catalytic activity/Vol] 49 U/L 34-104 [facility] Aspartate aminotransferase [ Enzymatic activity/volume] in Serum or PlasmaOrdered By: Peter Ahumada on 10-31-2022 AST [Catalytic activity/Vol] 16 U/L 13-39 [facility] Basophils Auto (Bld) [#/Vol] Ordered By: Peter Ahumada on 10-31-2022 Basophils (Bld) [#/Vol] 0.1 10*3/uL 0.0-0.2 [facility] Basophils/100 WBC Auto (Bld) Ordered By: Peter Ahumada on 10-31-2022 Basophils/100 WBC (Bld) 0.9 % . [facility] Bilirubin.total [Mass/volume ] in Serum or PlasmaOrdered By: Peter Ahumada on 10-31-2022 Bilirubin [Mass/Vol] 0.3 mg/dL 0.3-1.0 [facility] Calcium [Mass/volume] in Ser um or PlasmaOrdered By: Peter Ahumada on 10-31-2022 Calcium [Mass/Vol] 9.0 mg/dL 8.6-10.3 [facility] Carbon dioxide, total [Moles /volume] in Serum or PlasmaOrdered By: Peter Ahumada on 10-31-2022 CO2 [Moles/Vol] 25.8 mmol/L 21.0-31.0 [facility] Chloride [Moles/volume] in S renetta or PlasmaOrdered By: Peter Ahumada on 10-31-2022 Chloride [Moles/Vol] 106 mmol/L 98-107 [facility] Cholesterol [Mass/volume] in Serum or PlasmaOrdered By: Peter Ahumada on 10-31-2022 Cholesterol [Mass/Vol] 152 mg/dL 140-200 [facility] Comment on above: Chol less than 200 m g/dl low riskChol 201-239 mg/dl borderline riskChol 240 mg/dl and greater high risk Cholesterol in LDL Calc [Mas s/Vol]Ordered By: Peter Ahumada on 10-31-2022 Cholesterol in LDL [Mass/Vol] 74 mg/dL 0-100 [facility] Comment on above: LDL ATP III CLASSIFI CATIONLDL less than 100 mg/dL OptimalLDL 100-129 mg/dL Near or above optimalLDL 130-159 mg/dL Borderline highLDL 160-189 mg/dL HighLDL greater than 189 mg/dL Very high Cholesterol in VLDL Calc [Ma ss/Vol]Ordered By: Peter Ahumada on 10-31-2022 Cholesterol in VLDL [Mass/Vol] 25 mg/dL [facility] Creatinine [Mass/volume] in Serum or PlasmaOrdered By: Peter Ahumada on 10-31-2022 Creatinine [Mass/Vol] 0.55 mg/dL 0.60-1.20 [facility] Eosinophils Auto (Bld) [#/Vo l]Ordered By: Peter Ahumada on 10-31-2022 Eosinophils (Bld) [#/Vol] 0.2 10*3/uL 0.0-0.45 [facility] Eosinophils/100 WBC Auto (Bl d)Ordered By: Peter Ahumada on 10-31-2022 Eosinophils/100 WBC (Bld) 2.9 % . [facility] Erythrocyte distribution wid th Auto (RBC) [Ratio]Ordered By: Peter Ahumada on 10-31-2022 Erythrocyte distribution width (RBC) [Ratio] 13.3 % 11.9-15.3 [facility] Globulin Calc (S) [Mass/Vol] Ordered By: Peter Ahumada on 10-31-2022 Globulin (S) [Mass/Vol] 2.8 g/dL [facility] Glucose [Mass/volume] in Ser um or PlasmaOrdered By: Peter Ahumada on 10-31-2022 Glucose [Mass/Vol] 98 mg/dL 70-100 [facility] Comment on above: ADA recommended refe rence rangeRandom Glucose Reference Range is dependent on time and content of last meal. Glucose of more than 200 mg/dL in a nonstressed, ambulatory subject supports the diagnosis of Diabetes Mellitus. Hematocrit Auto (Bld) [Volum e fraction]Ordered By: Peter Ahumada on 10-31-2022 Hematocrit (Bld) [Volume fraction] 37.3 % 34.0-46.4 [facility] Hemoglobin [Mass/volume] in BloodOrdered By: Peter Ahumada on 10-31-2022 Hemoglobin (Bld) [Mass/Vol] 12.4 g/dL 11.8-15.4 [facility] Leukocytes [#/volume] correc bryan for nucleated erythrocytes in Blood by Automated counOrdered By: Peter Ahumada on 10-31-2022 WBC corrected for nucl RBC Auto (Bld) [#/Vol] 8.2 10*3/uL 3.8-11.6 [facility] Lymphocytes Auto (Bld) [#/Vo l]Ordered By: Peter Ahumada on 10-31-2022 Lymphocytes (Bld) [#/Vol] 1.8 10*3/uL 1.00-4.8 [facility] Lymphocytes/100 WBC Auto (Bl d)Ordered By: Peter Ahumada on 10-31-2022 Lymphocytes/100 WBC (Bld) 21.7 % . [facility] MCH Auto (RBC) [Entitic mass ]Ordered By: Peter Ahumada on 10-31-2022 MCH (RBC) [Entitic mass] 28.0 pg 24.7-34.3 [facility] MCHC Auto (RBC) [Mass/Vol]Or dered By: Peter Ahumada on 10-31-2022 MCHC (RBC) [Mass/Vol] 33.3 g/dL 32.0-35.0 [facility] MCV Auto (RBC) [Entitic vol] Ordered By: Peter Ahumada on 10-31-2022 MCV (RBC) [Entitic vol] 84.1 fL 80-100 [facility] Monocytes Auto (Bld) [#/Vol] Ordered By: Peter Ahumada on 10-31-2022 Monocytes (Bld) [#/Vol] 0.5 10*3/uL 0.0-0.8 [facility] Monocytes/100 WBC Auto (Bld) Ordered By: Peter Ahumada on 10-31-2022 Monocytes/100 WBC (Bld) 6.2 % . [facility] Neutrophils Auto (Bld) [#/Vo l]Ordered By: Peter Ahumada on 10-31-2022 Neutrophils (Bld) [#/Vol] 5.6 10*3/uL 1.8-7.7 [facility] Neutrophils/100 WBC Auto (Bl d)Ordered By: Peter Ahumada on 10-31-2022 Neutrophils/100 WBC (Bld) 68.3 % . [facility] No Panel InformationOrdered By: Peter Ahumada on 10-31-2022 Estimated GFR (CKD-EPI) > 60.0 mL/Min [facility] Creatinine Clearance (Chem N/A [facility] Nucleated erythrocytes [Pres ence] in Blood by Automated countOrdered By: Peter Ahumada on 10-31-2022 Nucleated RBC Auto Ql (Bld) 0.1 /100{WBC} 0-0.5 [facility] Platelet mean volume Auto (B ld) [Entitic vol]Ordered By: Peter Ahumada on 10-31-2022 Platelet mean volume (Bld) [Entitic vol] 8.8 fL 6.3-10.7 [facility] Platelets Auto (Bld) [#/Vol] Ordered By: Peter Ahumada on 10-31-2022 Platelets (Bld) [#/Vol] 305 10*3/uL 150-450 [facility] Potassium [Moles/volume] in Serum or PlasmaOrdered By: Peter Ahumada on 10-31-2022 Potassium [Moles/Vol] 4.2 mmol/L 3.5-5.1 [facility] Protein [Mass/volume] in Ser um or PlasmaOrdered By: Peter Ahumada on 10-31-2022 Protein [Mass/Vol] 6.6 g/dL 6.4-8.9 [facility] RBC Auto (Bld) [#/Vol]Ordere d By: Peter Ahumada on 10-31-2022 RBC (Bld) [#/Vol] 4.44 10*6/uL 3.60-5.00 [facility] Serum or plasma albumin/glob ulin mass ratioOrdered By: Peter Ahumada on 10-31-2022 Albumin/Globulin [Mass ratio] 1.4 {ratio} [facility] Serum or plasma anion gap de terminationOrdered By: Peter Ahumada on 10-31-2022 Anion gap [Moles/Vol] 11.4 mmol/L 6.0-15.0 [facility] Serum or plasma high density lipoprotein (HDL) cholesterol measurementOrdered By: Peter Ahumada on 10-31-2022 Cholesterol in HDL [Mass/Vol] 53 mg/dL 35-85 [facility] Comment on above: HDL CHOL ATP-III CLA SSIFICATION Cardiovascular RiskHDL > or equal to 60 mg/dL LOWHDL < 40 mg/dL HIGH Serum or plasma total choles terol/high density lipoprotein (HDL) cholesterol mass ratOrdered By: Peter Ahumada on 10-31-2022 Cholesterol.total/Chol esterol in HDL [Mass ratio] 2.9 {ratio} <5.0 [facility] Sodium [Moles/volume] in Ser um or PlasmaOrdered By: Peter Ahumada on 10-31-2022 Sodium [Moles/Vol] 139 mmol/L 136-145 [facility] Thyrotropin [Units/volume] i n Serum or PlasmaOrdered By: Peter Ahumada on 10-31-2022 TSH Qn 0.61 m[IU]/L 0.45-5.33 [facility] Thyroxine (T4) free [Mass/vo lume] in Serum or PlasmaOrdered By: Peter Ahumada on 10-31-2022 Free T4 [Mass/Vol] 0.76 ng/dL 0.61-1.12 [facility] Triglyceride [Mass/volume] i n Serum or PlasmaOrdered By: Peter Ahumada on 10-31-2022 Triglyceride [Mass/Vol] 125 mg/dL 0-149 [facility] Comment on above: TRIG ATP III CLASSIF ICATIONTRIG less than 150 mg/dL NormalTRIG 150-199 mg/dL Borderline highTRIG 200-500 mg/dL High TRIG greater than 500 mg/dL Very highStandard traceable to the Center for Disease Conrtrol and Prevention (CDC) test method. Urea nitrogen [Mass/volume] in Serum or PlasmaOrdered By: Peter Ahumada on 10-31-2022 Urea nitrogen [Mass/Vol] 6 mg/dL 7 [facility] WBC Auto (Bld) [#/Vol]Ordere d By: Peter Ahumada on 10-31-2022 WBC (Bld) [#/Vol] 8.2 10*3/uL 3.8-11.6 [facility] Albumin [Mass/volume] in Ser um or PlasmaOrdered By: Peter Ahumada on 04-19-2022 Albumin [Mass/Vol] 3.2 g/dL 3.2-5.5 [facility] Basophils Auto (Bld) [#/Vol] Ordered By: Peter Ahumada on 04-19-2022 Basophils (Bld) [#/Vol] 0.0 10*3/uL 0.0-0.2 [facility] Basophils/100 WBC Auto (Bld) Ordered By: Peter Ahumada on 04-19-2022 Basophils/100 WBC (Bld) 0.7 % . [facility] Blood hemoglobin measurement (mass/volume)Ordered By: Peter Ahumada on 04-19-2022 Hemoglobin (Bld) [Mass/Vol] 12.3 g/dL 11.8-15.4 [facility] Blood leukocytes automated c ount (number/volume)Ordered By: Peter Ahumada on 04-19-2022 WBC (Bld) [#/Vol] 5.9 10*3/uL 4.5-11.0 [facility] Cholesterol [Mass/volume] in Serum or PlasmaOrdered By: Peter Ahumada on 04-19-2022 Cholesterol [Mass/Vol] 159 mg/dL 140-200 [facility] Comment on above: Chol less than 200 m g/dl low riskChol 201-239 mg/dl borderline riskChol 240 mg/dl and greater high risk Cholesterol in LDL Calc [Mas s/Vol]Ordered By: Peter Ahumada on 04-19-2022 Cholesterol in LDL [Mass/Vol] 84 mg/dL 0-100 [facility] Comment on above: LDL ATP III CLASSIFI CATIONLDL less than 100 mg/dL OptimalLDL 100-129 mg/dL Near or above optimalLDL 130-159 mg/dL Borderline highLDL 160-189 mg/dL HighLDL greater than 189 mg/dL Very high Cholesterol in VLDL Calc [Ma ss/Vol]Ordered By: Peter Ahumada on 04-19-2022 Cholesterol in VLDL [Mass/Vol] 22 mg/dL [facility] Creatinine and Glomerular fi ltration rate.predicted panel (S/P/Bld)Ordered By: Peter Ahumada on 04-19-2022 Creatinine [Mass/Vol] 0.58 mg/dL 0.44-1.03 [facility] Eosinophils Auto (Bld) [#/Vo l]Ordered By: Peter Ahumada on 04-19-2022 Eosinophils (Bld) [#/Vol] 0.1 10*3/uL 0.0-0.45 [facility] Eosinophils/100 WBC Auto (Bl d)Ordered By: Peter Ahumada on 04-19-2022 Eosinophils/100 WBC (Bld) 2.4 % . [facility] Erythrocyte distribution wid th Auto (RBC) [Ratio]Ordered By: Peter Ahumada on 04-19-2022 Erythrocyte distribution width (RBC) [Ratio] 13.4 % 11.9-15.3 [facility] Estimated glomerular filtrat ion rate (GFR) non- AmericanOrdered By: Peter Ahumada on 04-19-2022 GFR/1.73 sq M.predicted among non-blacks MDRD (S/P/Bld) [Vol rate/Area] > 60 mL/Min [facility] Globulin Calc (S) [Mass/Vol] Ordered By: Peter Ahumada on 04-19-2022 Globulin (S) [Mass/Vol] 3.1 g/dL [facility] Hematocrit Auto (Bld) [Volum e fraction]Ordered By: Peter Ahumada on 04-19-2022 Hematocrit (Bld) [Volume fraction] 37.1 % 34.0-46.4 [facility] Laboratory - Hematology and Cell countsOrdered By: Peter Ahumada on 04-19-2022 Nucleated RBC/100 WBC (Bld) [Ratio] 0.1 % 0-0.5 [facility] Lymphocytes Auto (Bld) [#/Vo l]Ordered By: Peter Ahumada on 04-19-2022 Lymphocytes (Bld) [#/Vol] 1.7 10*3/uL 1.00-4.8 [facility] Lymphocytes/100 WBC Auto (Bl d)Ordered By: Peter Ahumada on 04-19-2022 Lymphocytes/100 WBC (Bld) 28.8 % . [facility] MCH Auto (RBC) [Entitic mass ]Ordered By: Peter Ahumada on 04-19-2022 MCH (RBC) [Entitic mass] 27.8 pg 24.7-34.3 [facility] MCHC Auto (RBC) [Mass/Vol]Or dered By: Peter Ahumada on 04-19-2022 MCHC (RBC) [Mass/Vol] 33.2 g/dL 32.0-35.0 [facility] MCV Auto (RBC) [Entitic vol] Ordered By: Peter Ahumada on 04-19-2022 MCV (RBC) [Entitic vol] 83.6 fL 80-100 [facility] Monocytes Auto (Bld) [#/Vol] Ordered By: Peter Ahumada on 04-19-2022 Monocytes (Bld) [#/Vol] 0.4 10*3/uL 0.0-0.8 [facility] Monocytes/100 WBC Auto (Bld) Ordered By: Peter Ahumada on 04-19-2022 Monocytes/100 WBC (Bld) 6.6 % . [facility] Neutrophils Auto (Bld) [#/Vo l]Ordered By: Peter Ahumada on 04-19-2022 Neutrophils (Bld) [#/Vol] 3.6 10*3/uL 1.8-7.7 [facility] Neutrophils/100 WBC Auto (Bl d)Ordered By: Peter Ahumada on 04-19-2022 Neutrophils/100 WBC (Bld) 61.5 % . [facility] No Panel InformationOrdered By: Peter Ahumada on 04-19-2022 Estimated GFR () > 60 mL/Min [facility] Comment on above: GFR estimated refere nce range: According to KDOQI guidelines, <60 ml/min/1.73m2 is sufficient to diagnose a patient with chronic kidney disease. Pharmacy Creatinine Clearance (Chem N/A [facility] Platelet mean volume Auto (B ld) [Entitic vol]Ordered By: Peter Ahumada on 04-19-2022 Platelet mean volume (Bld) [Entitic vol] 8.9 fL 6.3-10.7 [facility] Platelets Auto (Bld) [#/Vol] Ordered By: Peter Ahumada on 04-19-2022 Platelets (Bld) [#/Vol] 319 10*3/uL 150-450 [facility] Protein [Mass/volume] in Ser um or PlasmaOrdered By: Peter Ahumada on 04-19-2022 Protein [Mass/Vol] 6.3 g/dL 6.1-7.9 [facility] RBC Auto (Bld) [#/Vol]Ordere d By: Peter Ahumada on 04-19-2022 RBC (Bld) [#/Vol] 4.43 10*6/uL 3.60-5.00 [facility] Serum or plasma alanine ny otransferase measurement without P-5'-P (enzymatic activiOrdered By: Peter Ahumada on 04-19-2022 ALT No additional P-5'-P [Catalytic activity/Vol] 9 U/L 10-60 [facility] Serum or plasma albumin/glob ulin mass ratioOrdered By: Peter Ahumada on 04-19-2022 Albumin/Globulin [Mass ratio] 1.0 {ratio} [facility] Serum or plasma alkaline deirdre sphatase measurement (enzymatic activity/volume)Ordered By: Peter Ahumada on 04-19-2022 ALP [Catalytic activity/Vol] 41 U/L 32-92 [facility] Serum or plasma anion gap de terminationOrdered By: Peter Ahumada on 04-19-2022 Anion gap [Moles/Vol] 13.9 mmol/L 6.0-15.0 [facility] Serum or plasma aspartate am inotransferase measurement (enzymatic activity/volume)Ordered By: Peter Ahumada on 04-19-2022 AST [Catalytic activity/Vol] 15 U/L 10-42 [facility] Serum or plasma calcium scotty urement (mass/volume)Ordered By: Peter Ahumada on 04-19-2022 Calcium [Mass/Vol] 8.8 mg/dL 8.2-10.2 [facility] Serum or plasma chloride francoise surement (moles/volume)Ordered By: Peter Ahumada on 04-19-2022 Chloride [Moles/Vol] 100 mmol/L 95-114 [facility] Serum or plasma glucose scotty urement (mass/volume)Ordered By: Peter Ahumada on 04-19-2022 Glucose [Mass/Vol] 87 mg/dL 70-100 [facility] Comment on above: ADA recommended refe rence rangeRandom Glucose Reference Range is dependent on time and content of last meal. Glucose of more than 200 mg/dL in a nonstressed, ambulatory subject supports the diagnosis of Diabetes Mellitus. Serum or plasma high density lipoprotein (HDL) cholesterol measurementOrdered By: Peter Ahumada on 04-19-2022 Cholesterol in HDL [Mass/Vol] 53 mg/dL 35-85 [facility] Comment on above: HDL CHOL ATP-III CLA SSIFICATION Cardiovascular RiskHDL > or equal to 60 mg/dL LOWHDL < 40 mg/dL HIGH Serum or plasma potassium me asurement (moles/volume)Ordered By: Peter Ahumada on 04-19-2022 Potassium [Moles/Vol] 3.9 mmol/L 3.5-5.1 [facility] Serum or plasma sodium measu rement (moles/volume)Ordered By: Peter Ahumada on 04-19-2022 Sodium [Moles/Vol] 136 mmol/L 136-146 [facility] Serum or plasma total biliru bin measurement (mass/volume)Ordered By: Peter Ahumada on 04-19-2022 Bilirubin [Mass/Vol] 0.4 mg/dL 0.3-1.2 [facility] Serum or plasma total carbon dioxide measurement (moles/volume)Ordered By: Peter Ahumada on 04-19-2022 CO2 [Moles/Vol] 26.0 mmol/L 22.0-30.0 [facility] Serum or plasma total choles terol/high density lipoprotein (HDL) cholesterol mass ratOrdered By: Peter Ahumada on 04-19-2022 Cholesterol.total/Chol esterol in HDL [Mass ratio] 3.0 {ratio} <5.0 [facility] Serum or plasma urea nitroge n measurement (mass/volume)Ordered By: Peter Ahumada on 04-19-2022 Urea nitrogen [Mass/Vol] 5 mg/dL 9-23 [facility] TSH DL <= 0.005 mIU/L QnOrde red By: Peter Ahumada on 04-19-2022 TSH Qn 1.94 m[IU]/L 0.45-5.33 [facility] Thyroxine (T4) free [Mass/vo lume] in Serum or PlasmaOrdered By: Peter Ahumada on 04-19-2022 Free T4 [Mass/Vol] 0.69 ng/dL 0.61-1.12 [facility] Triglyceride [Mass/volume] i n Serum or PlasmaOrdered By: Peter Ahumada on 04-19-2022 Triglyceride [Mass/Vol] 111 mg/dL 35-149 [facility] Comment on above: TRIG ATP III CLASSIF ICATIONTRIG less than 150 mg/dL NormalTRIG 150-199 mg/dL Borderline highTRIG 200-500 mg/dL High TRIG greater than 500 mg/dL Very highStandard traceable to the Center for Disease Conrtrol and Prevention (CDC) test method. CNOVon 10-13-2021 CNOV Office Visit ([id number] ) -------- DARLING KHANNA ([id number]) 1980 F Date Time Provider Department 10/13/21 1:30 PM KATE DANIEL [id number] During your visit today, we recorded the following information about you: Temperature Pulse Blood pressure Weight 97.7 degrees 68/minute 112/55 115.2 kg Height 1.829 m Kate Daniel MD 10/17/2021 1:50 PM Signed Assessment ESTABLISHED PATIENT Darling Khanna is a 40 year old female with a right posterior liver subcapsular fluid collection ? 03/03/2021: Patient presented to [facility] ER on 02/08/2021 for 2 days for acute ride sided abdominal/flank pain, right shoulder discomfort and nausea. She was diagnosed with Klebsiella pneumoniae UTI and was discharged with oral keflex and zofran. Patient represented to ER on 02/09/2021 for the continued complaints of pain. ? Referral From:?PCP- Peter Ahumada, DO Reason:?right abdominal pain pain; liver?fluid collection? ? Received Records From:? 02/08/2021 ER Report [facility] 02/09/2021 ER Report [facility] 02/15/2021 PCP Office note ? Visited ER [...] gradually improving. US of ovaries yesterday at [facility]. Scheduled for upper GI at end of month. Gained?50 pounds since July?(was in [place] for 3 months, drank a lot); diagnosed [...] well. She did spend 3 months in [place] and did not have any issues, hospitalizations [...] which included preparing to see the patient, [id number] patient care and completing clinical documentation. MD Jayne Garrido Ma 10/13/2021 1:33 PM Signed What is the reason for your visit today? Follow up Who is your referring physician? Are you having poor oral intake? NO Have you had unintentional weight loss of 15 lbs/7 Kg in the last 3-6 months? NO Bowels: regular Wound: Temperature: No Drains: No Referring Provider: KATE DANIEL [[id number]] Allergies As of Date: 10/13/2021 Noted Allergy [...] of 05/10 (more content not included)... Normal [facility] Mayela 09-30-2021 CASE Telephone ([id number]) -------- DARLING KHANNA ([id number]) 1980 F Date Time Provider Department 09/30/21 KATE DANIEL [id number] During your visit today, we recorded the following information about you: Sujatha Toams 09/30/2021 9:00 AM Signed Called patient to reschedule her 10/13 in person to virtual. She would like to keep in person. She also wants to know if a CT or MRI can be ordered of her pancreas abdomen as she hasn't had anything done recently. She can be reached at [phone]. Talat Armendariz RN 10/10/2021 11:29 AM Signed [...] Encounter Status:Closed by TALAT ARMENDARIZ RN on 10/10/21 [facility] CNOVon 04-07-2021 CNOV Office Visit ([id number] ) -------- DARLING KHANNA ([id number]) 1980 F Date Time Provider Department 04/07/21 2:30 PM KATE DANIEL [id number] During your visit today, we recorded the following information about you: Temperature Pulse Blood pressure Weight 97.5 degrees 95/minute 136/77 109.3 kg Height 1.829 m Jayne Aguila Nc 04/07/2021 2:31 PM Signed What is the [...] subcapsular fluid collection 03/03/2021: Patient presented to [facility] ER on 02/08/2021 for 2 days for acute ride sided abdominal/flank pain, right shoulder discomfort and nausea. She was diagnosed with Klebsiella pneumoniae UTI and was discharged with oral keflex and zofran. Patient represented to ER on 02/09/2021 for the continued complaints of pain. ? Referral From:?PCP- Peter Ahumada, DO Reason:?right abdominal pain pain; liver?fluid collection? ? Received Records From:? 02/08/2021 ER Report [facility] 02/09/2021 ER Report [facility] 02/15/2021 PCP Office note ? Visited ER [...] gradually improving. US of ovaries yesterday at [facility]. Scheduled for upper GI at end of month. Gained 50 pounds since July (was in [place] for 3 months, drank a lot); diagnosed [...] which included preparing to see the patient, [id number] patient care and completing clinical documentation. Kate Daniel MD Referring Provider: KATE DANIEL [[id number]] Allergies As of Date: 04/07/2021 Noted Allergy [...] [M79.671] 11/26/2017 Visit Notes: >> Jayne Aguila Ma Alexia Apr 07, 2021 2:28 PM Status: Signed What is the reason for your visit today? Follow up Who is your referring physician? Are you having poor oral intake? NO Have you had unintentional weight loss of 15 lbs/7 Kg in the last 3-6 months? NO Bowels: regular Wound: Temperature: No (more content not included)... Normal [facility] CNTRTMon 03-22-2021 CNTRTM Treatment Team (ANSHUL VILLAFUERTE) -------- DARLING KHANNA ([id number]) 1980 F Date Time Provider Department 03/22/21 [...] findings to suggest etiology Pre-conference plan (from [employer]): - Observation and serial imaging Imaging Review: - January 2021 - CT Abd/Pelvis and MRI Final Consensus Recommendation(s): - No clear etiology of right posterior subcapsular fluid collection - Fluid consistency is not consistent with a hematoma - No underlying masses or intrinsic liver pathology Final recommendation(s) differ from pre-conference plan? (Y/N) - No William De León MD B Surgical Fellow Allergies As of Date: 03/22/2021 [...] of 05/10/2018: Problem List As Of Date 03/22/2021 Noted Resolved Chronic pain of right knee [M25.561, G89.29] 11/12/2017 Pain in right foot [M79.671] 11/26/2017 Encounter Status:Closed by WILLIAM DE LEÓN on 03/23/21 [facility] CNOVon 03-03-2021 CNOV Office Visit ([id number] ) -------- DARLING KHANNA ([id number]) 1980 F Date Time Provider Department 03/03/21 10:00 AM KATE DANIEL [id number] During your visit today, we recorded the [...] 40 year old female Patient presented to [facility] ER on 02/08/2021 for 2 days for [...] ? Received Records From: 02/08/2021 ER Report [facility] 02/09/2021 ER Report [facility] 02/15/2021 PCP Office note Visited ER 4 [...] gradually improving. US of ovaries yesterday at [facility]. Scheduled for upper GI at end of month. Gained 50 pounds since July (was in [place] for 3 months, drank a lot); diagnosed [...] was malignant. Seen by Dr. Haines on [facility], in [facility]; denies chemotherapy or radiation. Hernia repair Social [...] cm (6') (more content not included)... [facility] ([facility]) -------- DARLING KHANNA ([id number]) 1980 F Date Time Provider Department 02/23/21 KATE DANIEL [facility] During your visit today, we recorded the following information about you: Talat Armendariz RN 02/23/2021 10:02 AM Addendum Hepatobiliary Surgery Consult HPI: Patient presented to [facility] ER on 02/08/2021 for 2 days for [...] collection Received Records From: 02/08/2021 ER Report [facility] 02/09/2021 ER Report [facility] 02/15/2021 PCP Office note Records Review BMI 33 Current OCP Imagin02/08/2021 CT A/P wo IVCON (Report [facility]- report rec'd) - minor basilar atelectasis or scarring - nonspecific lymph nodes - tiny umbilical hernia containing fat - no intra hepatic masses are noted - no bowel or urinary tract obstructions - no acute findings 02/08/2021 Ultrasound RUQ (Report [facility]- report rec'd) - unremarkable - no evidence of gallstones, gallbladder wall thickening, or ductal dilation 02/15/2021 CT A/P w IVCON (Report [facility]- report rec'd) - no acute abdominal or pelvis abnormality - indeterminate liver lesion: ill defined low attenuation lesion measuring at least 2.5cm in the medial segment of the left lobe of the liver posteriorly 02/17/2021 MRI Abdomen w/wo IVCON (Report [facility]- report rec'd) - unremarkable size of liver [...] months 02/22/2021 CT A/P w IVCON (Report [facility]- report rec'd) - 62mm x 20mm [...] 8:26 AM Signed Patient's records scanned into [employer] and imaging downloaded from [facility], please review. Tatyana Kilgore Pss 02/25/2021 9:53 AM Signed Scheduled patient for new consult on 03/03/2021. 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] Consult [173] Prescriptions as of 02/25/2021 - [...] Status:Closed by TATYANA PEDRO on 02/25/21 Normal [facility] AMYLASEon 02-22-2021 Amylase [Catalytic activity/Vol] 48 U/L Normal 31-110 [facility] Comment on above: Performed By: #### L IPA, CMP, SHAI #### [facility] [address] [place], [place] [address] Ruy Ayleen CBC AUTO DIFFon 02-22-2021 BASO # 0.1 103/ul Normal 0.0-0.1 [facility] Comment on above: Performed By: #### C BC #### [facility] [address] [place], [place] [address] Ruy Ayleen Basophils/100 WBC (Bld) 0.7 % Normal 0.2-2.0 [facility] Comment on above: Performed By: #### C BC #### [facility] [address] [place], [place] [address] Ruy Ayleen EO # 0.1 103/ul Normal 0.0-0.7 [facility] Comment on above: Performed By: #### C BC #### [facility] [address] [place], [place] [address] Ruy Ayleen Eosinophils/100 WBC (Bld) 1.2 % Normal 0.9-7.0 [facility] Comment on above: Performed By: #### C BC #### [facility] [address] [place] [address] Ruy Ayleen Erythrocyte distribution width (RBC) [Ratio] 12.6 % Normal 11.0-15.0 [facility] Comment on above: Performed By: #### C BC #### [facility] [address] [place] [address] Ruy Ayleen Hematocrit (Bld) [Volume fraction] 38.7 % Normal 36.0-48.0 [facility] Comment on above: Performed By: #### C BC #### [facility] [address] [place] [address] Ruy Ayleen Hemoglobin (Bld) [Mass/Vol] 12.6 g/dL Normal 12.0-16.0 [facility] Comment on above: Performed By: #### C BC #### [facility] [address] [place] [address] Ruy Ayleen IG # 0.02 10e3/ul Normal 0.00-0.03 [facility] Comment on above: Performed By: #### C BC #### [facility] [address] [place] [address] Ruy Ayleen IG % 0.2 % Normal 0.0-0.5 [facility] Comment on above: Performed By: #### C BC #### [facility] [address] [place] [address] Ruy Ayleen LYMPH # 2.4 103/ul Normal 1.2-3.8 [facility] Comment on above: Performed By: #### C BC #### [facility] [address] [place] [address] Ruy Ayleen Lymphocytes/100 WBC (Bld) 22.4 % Normal 20.5-60.0 [facility] Comment on above: Performed By: #### C BC #### [facility] [address] [place] [address] Ruy Ayleen MANUAL DIFF REQ NO Normal [facility] Comment on above: Performed By: #### C BC #### [facility] [address] [place], [place] [id number] Ruy Ayleen MCH (RBC) [Entitic mass] 27.7 pg Normal 26.7-34.0 [facility] Comment on above: Performed By: #### C BC #### [facility] [address] [place] [address] Ruy Abbasi MCHC (RBC) [Mass/Vol] 32.6 g/dL Normal 29.9-35.2 [facility] Comment on above: Performed By: #### C BC #### [facility] [address] [place] [id number] Ruy Abbasi MCV (RBC) [Entitic vol] 85.1 fL Normal 81.0-99.0 [facility] Comment on above: Performed By: #### C BC #### [facility] [address] [place], [place] [id number] Ruy Abbasi MONO # 0.7 103/ul Normal 0.3-0.8 [facility] Comment on above: Performed By: #### C BC #### [facility] [address] [place] [address] Ruy Abbasi Monocytes/100 WBC (Bld) 6.5 % Normal 1.7-12.0 [facility] Comment on above: Performed By: #### C BC #### [facility] [address] [place] [address] Ruy Abbasi NEUT # 7.3 103/ul Critically high 1.4-6.5 [facility] Comment on above: Performed By: #### C BC #### [facility] [address] [place], [place] [phone] Ruy Abbasi Neutrophils/100 WBC (Bld) 69.0 % Normal 43.0-75.0 [facility] Comment on above: Performed By: #### C BC #### [facility] [address] [place] [id number] Ruy Abbasi Platelet mean volume (Bld) [Entitic vol] 9.3 fL Critically low 9.5-13.5 [facility] Comment on above: Performed By: #### C BC #### [facility] [address] [place], [place] [phone] Ruy Ayleen PLT 324 103/ul Normal 150-450 [facility] Comment on above: Performed By: #### C BC #### [facility] [address] [place], [place] [phone] Ruy Ayleen RBC 4.55 106/ul Normal 4.20-5.40 [facility] Comment on above: Performed By: #### C BC #### [facility] [address] [place] [address] Ruy Abbasi WBC 10.6 103/ul Normal 4.0-11.0 [facility] Comment on above: Performed By: #### C BC #### [facility] [address] [place], [place] [phone] Ruy Abbasi CT ABD/PELV W CONon 02-23-[address] ABD/PELV W CON EXAMINATION: CT ABD/ [...] MARINA HERNANDEZ Date: 2021-02-22 03:10 Normal [facility] D-DIMERon 02-22-2021 D-DIMER 0.40 mg/L FEU Normal 0.19-0.50 [facility] Comment on above: Performed By: #### D DIM #### [facility] [address] [place] [address] Ruy Ayleen D-DIMER COMMENTS SEE BELOW Normal [facility] Comment on above: Result Comment: Incr eases [...] hospitalization. Performed By: #### D DIM #### [facility] [address] [place] [address] Ruy Abbasi LIPASEon 02-22-2021 Lipase [Catalytic activity/Vol] 120.0 U/L Normal 23.0-300.0 [facility] Comment on above: Performed By: #### L IPA, CMP, SHAI #### [facility] [address] [place] [address] Ruy Abbasi MONOon 02-22-2021 Monocytes (Bld) [#/Vol] Negative Normal NEGATIVE [facility] Comment on above: Performed By: #### M IGOR #### [facility] [address] [place] [address] Ruy Abbasi OT-CT ABD/PELVIS W CON IMPOR Ton 02-22-2021 OT-CT ABD/PELVIS W CON IMPORT Images were obtained outside of [facility] [id number] Normal [facility] OT-CT ABD/PELVIS W CON IMPORT Images were obtained outside of [facility] [id number] Normal [facility] PREG HCG QUALon 02-22-2021 , QUAL Negative Normal NEGATIVE [facility] Comment on above: Performed By: #### P REG #### [facility] [address] [place], [place] [phone] Ruy Abbasi PROF 14(COMP METB)on 021 Albumin [Mass/Vol] 3.2 g/dL Critically low 3.5-5.0 [facility] e [facility] Comment on above: Performed By: #### L IPA, CMP, SHAI #### [facility] [address] [place] [id number] Ruy Ayleen Albumin/Globulin [Mass ratio] 0.7 {ratio} Normal [facility] Comment on above: Performed By: #### L IPA, CMP, SHAI #### [facility] [address] [place] [phone] Ruy Ayleen ALP [Catalytic activity/Vol] 54 U/L Normal 38-126 [facility] Comment on above: Performed By: #### L IPA, CMP, SHAI #### [facility] [address] [place] [address] Ruy Ayleen ALT [Catalytic activity/Vol] 11 U/L Normal 9-52 [facility] Comment on above: Performed By: #### L IPA, CMP, SHAI #### [facility] [address] [place] [address] Ruy Ayleen Anion gap [Moles/Vol] 11.6 mmol/L Normal [facility] Comment on above: Performed By: #### L IPA, CMP, SHAI #### [facility] [address] [place] [address] Ruy Ayleen AST [Catalytic activity/Vol] 12 U/L Critically low 14-36 [facility] Comment on above: Performed By: #### L IPA, CMP, SHAI #### [facility] [address] [place] [address] Ruy Ayleen Bilirubin [Mass/Vol] 0.2 mg/dL Normal 0.2-1.3 [facility] Comment on above: Performed By: #### L IPA, CMP, SHAI #### [facility] [address] [place] [address] Ruy Ayleen Calcium [Mass/Vol] 9.2 mg/dL Normal 8.4-10.2 [facility] Comment on above: Performed By: #### L IPA, CMP, SHAI #### [facility] [address] [place] [address] Ruy Ayleen Chloride [Moles/Vol] 104 mmol/L Normal 98-107 [facility] Comment on above: Performed By: #### L IPA, CMP, SHAI #### [facility] [address] [place] [address] Ruy Ayleen CO2 [Moles/Vol] 29.7 mmol/L Normal 22.0-30.0 [facility] Comment on above: Performed By: #### L IPA CMP, SHAI #### [facility] [address] [place] [address] Ruy Ayleen Creatinine [Mass/Vol] 0.74 mg/dL Normal 0.52-1.04 [facility] Comment on above: Performed By: #### L IPA, CMP, SHAI #### [facility] [address] [place] [address] Ruy Ayleen EGFR-AF GRENADIAN >60 Normal >=60 [facility] Comment on above: Performed By: #### L IPA CMP, SHAI #### [facility] [address] [place] [address] Ruy Ayleen EGFR-NON AF GRENADIAN >60 Normal >=60 [facility] Comment on above: Performed By: #### L IPA, CMP, SHAI #### [facility] [address] [place] [address] Ruy Ayleen Globulin (S) [Mass/Vol] 4.4 g/dL Normal [facility] Comment on above: Performed By: #### L IPA CMP, SHAI #### [facility] [address] [place] [address] Ruy Ayleen Glucose [Mass/Vol] 104 mg/dL Normal 74-106 [facility] Comment on above: Performed By: #### L IPA, CMP, SHAI #### [facility] [address] [address] [place]en Potassium [Moles/Vol] 4.3 mmol/L Normal 3.4-5.0 [facility] Comment on above: Performed By: #### L IPA, CMP, SHAI #### [facility] [address] [address] [place] Protein [Mass/Vol] 7.6 g/dL Normal 6.1-8.2 [facility] Comment on above: Performed By: #### L IPA, CMP, SHAI #### [facility] [address] [address] R[place] Abbasi Sodium [Moles/Vol] 141 mmol/L Normal 137-145 [facility] Comment on above: Performed By: #### L IPA CMP, SHAI #### [facility] [address] [address] [place] Urea nitrogen [Mass/Vol] 9.0 mg/dL Normal 7.0-17.0 [facility] Comment on above: Performed By: #### L IPA CMP, SHAI #### [facility] [address] [address] [place]en Urea nitrogen/Creatinine [Mass ratio] 12.2 mg/mg Normal [facility] Comment on above: Performed By: #### L IPA CMP, SHAI #### [facility] [address] [address] R[place] Abbasi MR-MR abdomen wo/w con IMPOR Ton 02-16-2021 MR-MR abdomen wo/w con IMPORT Images were obtained outside of [facility] [id number] Normal [facility] CT-CT abdomen pelvis w con I MPORTon 02-15-2021 CT-CT abdomen pelvis w con IMPORT Images were obtained outside of [facility] [id number] Normal [facility] CT-CT abdomen pelvis wo con IMPORTon 02-08-2021 CT-CT abdomen pelvis wo con IMPORT Images were obtained outside of [facility] [id number] Normal [facility] US-US gall bladder IMPORTon 02-08-2021 US-US gall bladder IMPORT Images were obtained outside of [facility] [id number] Normal [facility] CNOVon 12-28-2020 CNOV Office Visit (LOORRM ) -------- DARLING KHANNA ([id number]) 1980 F Date Time Provider Department 12/28/20 3:30 PM CAST TECH YANIRA MARCANO During your visit today, we recorded the following information about you: Tracey Hair Ma 12/28/2020 4:25 PM Signed Dispensed XL/XXL Reaction brace for the Right knee. Dispensed by [employer] Lube Technician. Instructions were given on application/adjustments. She will f/u as scheduled/prn. Tracey Hair MA,ROT Referring Provider: ISHAN YUSUF [[id number]] Allergies As of Date: 12/28/2020 Noted Allergy Reaction INDOMETHACIN 05/10/2018 7 - Swelling Date Reviewed: 12/28/2020 Reviewed by: DO Vandana Mcclain Fully Assessed Primary Visit Diagnosis:Patellofemoral arthralgia of [...] Status:Closed by TRACEY HAIR MA on 12/28/20 [facility] CN Office Visit (LOORRM ) -------- DARLING KHANNA ([id number]) 1980 F Date Time Provider Department 12/28/20 [...] Encounter Status:Closed by ISHAN YUSUF on 12/28/20 [facility] CNOVon 11-30-2020 CNOV Office Visit (LOORRM ) -------- DARLING KHANNA ([id number]) 1980 F Date Time Provider Department 11/30/20 3:30 PM ISHAN YUSUF MERLINORRSilva During your visit today, we recorded the [...] results and radiologist's interpretation, available in the [facility] health record. Images were reviewed with the patient/family members in the office today. My personal interpretation of the performed imaging is healing proximal phalanx fracture CLINICAL IMPRESSION / ASSESSMENT: (S67.079A) Closed nondisplaced fracture of proximal phalanx of [...] little finger with routine healing, subsequent encounter [E29.484I] Order(s):XR HAND GENERAL 3V PA/LAT/OBL LT [[id number]] Order #: [id number] FUTURE CONSULT TO SUPERVISOR [employer] [[id number]] Order #: [id number]: 1 FUTURE Prescriptions as of 11/30/2020 Sig: [...] Encounter Status:Closed by ISHAN YUSUF on 11/30/20 [facility] XR HAND 3V PA/LAT/OBL LTon 0 11-30-2020 [...] fractures. IMPRESSION: Healing 5th proximal phalanx fracture Senior Unix Administrator: WILBERT Transcribe Date/Time: Nov 30 2020 4:18P Dictated by : JUDITH FUENTES MD This examination was interpreted and the report reviewed and electronically signed by: JUDITH FUENTES MD on Nov 30 2020 4:19PM EST [id number] Normal [facility] XR Hand - left PA and Latera l and Obliqueon 11-30-2020 IMPRESSION: Healing 5th proximal phalanx fracture Senior Unix Administrator: WILBERT Transcribe Date/Time: Nov 30 2020 4:18P Dictated by : JUDITH FUENTES MD This examination was interpreted and the report reviewed and electronically signed by: JUDITH FUENTES MD on Nov 30 2020 4:19PM [facility] DIVISION OF RADIOLOGY * * *Final Report* [...] No additional fractures. DIVISION OF RADIOLOGY Provider, Dalia Wilfredo Bear - 11/30/2020 * * *Final Report* * [...] IMPRESSION IMPRESSION: Healing 5th proximal phalanx fracture Senior Unix Administrator: PSCB Transcribe Date/Time: Nov 30 2020 4:18P Dictated by : JUDITH FUENTES MD This examination was interpreted and the report reviewed and electronically signed by: JUDITH FUENTES MD on Nov 30 2020 4:19PM EST [facility] Radiology Study observation (narrative) [facility] XR Hand - left PA and Latera l and ObliqueOrdered By: Ccf Provider on 11-30-2020 [facility] CNOVon 11-18-2020 CNOV Office Visit (LOORRM ) -------- DARLING KHANNA ([id number]) 1980 F Date Time Provider Department 11/18/20 3:45 PM ISHAN YUSUF During your visit today, [...] results and radiologist's interpretation, available in the [facility] health record. Images were reviewed with the patient/family members in the office today. My personal interpretation of the performed imaging is intra-articular proximal phalanx fracture CLINICAL IMPRESSION / ASSESSMENT: (R53.685X) Closed nondisplaced fracture of proximal phalanx of [...] [S62.647A] Order(s):XR HAND GENERAL 3V PA/LAT/OBL LT [[id number]] Order #: [id number] FUTURE Prescriptions as of 11/18/2020 Sig: OMEPRAZOLE [...] Encounter Status:Closed by ISHAN YUSUF on 11/18/20 [facility] XR HAND 3V PA/LAT/OBL LTon 0 11-18-2020 [...] unchanged. IMPRESSION: Healing fifth proximal phalanx fracture. Senior Unix Administrator: PSCB Transcribe Date/Time: Nov 18 2020 8:15P Dictated by : ADRIANE CAMPOS MD This examination was interpreted and the report reviewed and electronically signed by: ADRIANE CAMPOS MD on Nov 18 2020 8:27PM EST [id number] Normal [facility] XR Hand - left PA and Latera l and Obliqueon 11-18-2020 IMPRESSION: Healing fifth proximal phalanx fracture. Senior Unix Administrator: PSCB Transcribe Date/Time: Nov 18 2020 8:15P [...] fracture. Remainder unchanged. DIVISION OF RADIOLOGY Provider, [facility] - 11/18/2020 * * *Final Report* * [...] IMPRESSION IMPRESSION: Healing fifth proximal phalanx fracture. Senior Unix Administrator: PSCB Transcribe Date/Time: Nov 18 2020 8:15P Dictated by : ADRIANE CAMPOS MD This examination was interpreted and the report reviewed and electronically signed by: ADRIANE CAMPOS MD on Nov 18 2020 8:27PM EST [facility] Radiology Study observation (narrative) [facility] XR Hand - left PA and Latera l and ObliqueOrdered By: Ccf Provider on 11-18-2020 [facility] CNOVon 11-04-2020 CNOV Office Visit (ORAVON ) -------- DARLING KHANNA ([id number]) 1980 F Date Time Provider Department 11/04/20 2:00 PM BOB MILLAN During your visit today, we recorded the following information about you: Bob Millan DO 11/04/2020 2:12 PM Signed [facility] Office Visit Documentation Note [facility] Sports Medicine Orthopaedic and Rheumatologic [place] REASON FOR VISIT / CHIEF COMPLAINT SERVICE [...] results and radiologist's interpretation, available in the [facility] health record. Images were reviewed with the patient/family members in the office today. My personal interpretation of the performed imaging is Has IA prox phalanx fracture at PIP ASSESSMENT / PLAN CLINICAL IMPRESSION / ASSESSMENT: (V82.953Z) Closed nondisplaced fracture of proximal phalanx of [...] plan as detailed above. Bob Millan D.O. [facility] Orthopaedic and Rheumatologic [place] Team Physician, [facility] Consulting Physician, [place], [place] Interpretive Ranger [phone] Patient verbalizes understanding and agrees with the treatment plan as detailed above. Referring Provider: SELF [[id number]] Allergies As of Date: 11/04/2020 Noted Allergy Reaction INDOMETHACIN 05/10/2018 7 - Swelling Date Reviewed: 11/04/2020 Reviewed by: Juaquin Farmer - Fully Assessed Reason for Visit: New [[id number]] Primary Visit Diagnosis:Closed nondisplaced fracture of proximal [...] for Dr. Yusuf or Shayla Silva in [place]. Follow-up and Disposition History Recorded Encounter Status:Closed by BOB MILLAN DO on 11/04/20 Normal [facility] DX-XR HAND COMPLETE LEFT IMP [facility] 10-30-2020 DX-XR HAND COMPLETE LEFT IMPORT Images were obtained outside of [facility] [id number] Normal [facility] Vital Signs Date Time Vital Sign Value Performing Clinician Facility 06-10-2024 15:00-0500 Body height 182.88 cm Peter Ahumada DO Work Phone: [facility] 06-10-2024 15:00-0500 Body mass index (BMI) [Ratio] 32.3 kg/m2 Peter Ahumada DO Work Phone: [facility] 06-10-2024 15:00-0500 Body weight 107.95 kg Peter Ahumada DO Work Phone: [facility] 06-10-2024 15:00-0500 Diastolic blood pressure 60 mm[Hg] Peter Ahumada DO Work Phone: [facility] 06-10-2024 15:00-0500 Heart rate 75 /min Peter Kuns DO Work Phone: [facility] 06-10-2024 15:00-0500 Respiratory rate 16 /min Peter Kuns DO Work Phone: [facility] 06-10-2024 15:00-0500 SaO2% (BldA) [Mass fraction] 96 % Peter Kuns DO Work Phone: [facility] 06-10-2024 15:00-0500 Systolic blood pressure 98 mm[Hg] Peter Kuns DO Work Phone: [facility] 03-06-2024 14:27-0400 Body height 182.88 cm DO Peter Kuns Work Phone: [facility] 03-06-2024 14:27-0400 Body mass index (BMI) [Ratio] 36.4 kg/m2 DO Peter Kuns Work Phone: [facility] 03-06-2024 14:27-0400 Body weight 122.01 kg DO Peter Kuns Work Phone: [facility] 03-06-2024 14:27-0400 Diastolic blood pressure 72 mm[Hg] DO Peter Kuns Work Phone: [facility] 03-06-2024 14:27-0400 Heart rate 77 /min DO Peter Kuns Work Phone: [facility] 03-06-2024 14:27-0400 Respiratory rate 16 /min DO Peter Kuns Work Phone: [facility] 03-06-2024 14:27-0400 SaO2% (BldA) [Mass fraction] 96 % DO Peter Kuns Work Phone: [facility] 03-06-2024 14:27-0400 Systolic blood pressure 118 mm[Hg] DO Peter Kuns Work Phone: [facility] 01-29-2024 14:05-0400 Diastolic blood pressure 78 mm[Hg] DO Peter Ahumada Work Phone: [facility] 01-29-2024 14:05-0400 Heart rate 91 /min DO Peter Ahumada Work Phone: [facility] 01-29-2024 14:05-0400 Respiratory rate 16 /min DO Peter Ahumada Work Phone: [facility] 01-29-2024 14:05-0400 SaO2% (BldA) [Mass fraction] 94 % DO Peter Ahumada Work Phone: [facility] 01-29-2024 14:05-0400 Systolic blood pressure 124 mm[Hg] DO Peter Ahumada Work Phone: [facility] 01-29-2024 13:05-0400 Body temperature 97 [degF] DO Peter Ahumada Work Phone: [facility] 01-29-2024 12:42-0400 Inhaled oxygen flow rate 8 L/min DO Peter Ahumada Work Phone: [facility] 01-29-2024 11:44-0400 Body height 182.88 cm DO Peter Ahumada Work Phone: [facility] 01-29-2024 11:44-0400 Body mass index (BMI) [Ratio] 36.5 kg/m2 DO Peter Shens Work Phone: [facility] 01-29-2024 11:44-0400 Body weight 122.2 kg DO Peter Ahumada Work Phone: [facility] 12-31-2023 07:25-0400 Body height 2194.56 cm DO Peterluiza Shens Work Phone: [facility] 12-31-2023 07:25-0400 Body mass index (BMI) [Ratio] 0.2 kg/m2 DO Peter Acs Work Phone: [facility] 12-31-2023 07:25-0400 Body weight 122.46 kg DO Peter Kuns Work Phone: [facility] 12-31-2023 07:25-0400 Diastolic blood pressure 80 mm[Hg] DO Peter Kuns Work Phone: [facility] 12-31-2023 07:25-0400 Heart rate 65 /min DO Peter Kuns Work Phone: [facility] 12-31-2023 07:25-0400 Respiratory rate 16 /min DO Peter Kuns Work Phone: [facility] 12-31-2023 07:25-0400 SaO2% (BldA) [Mass fraction] 97 % DO Peter Kuns Work Phone: [facility] 12-31-2023 07:25-0400 Systolic blood pressure 118 mm[Hg] DO Peter Kuns Work Phone: [facility] 12-27-2023 14:20-0400 Body height 182.88 cm DO Peter Kuns Work Phone: [facility] 12-27-2023 14:20-0400 Body mass index (BMI) [Ratio] 37.3 kg/m2 DO Peter Kuns Work Phone: [facility] 12-27-2023 14:20-0400 Body weight 124.73 kg DO Peter Kuns Work Phone: [facility] 12-27-2023 14:20-0400 Diastolic blood pressure 70 mm[Hg] DO Peter Kuns Work Phone: [facility] 12-27-2023 14:20-0400 Heart rate 86 /min DO Peter Kuns Work Phone: [facility] 12-27-2023 14:20-0400 Respiratory rate 16 /min DO Peter Kuns Work Phone: [facility] 12-27-2023 14:20-0400 SaO2% (BldA) [Mass fraction] 96 % DO Peter Kuns Work Phone: [facility] 12-27-2023 14:20-0400 Systolic blood pressure 116 mm[Hg] DO Peter Kuns Work Phone: [facility] 12-17-2023 07:31-0400 Body height 182.88 cm DO Peterluiza Shens Work Phone: [facility] 12-17-2023 07:31-0400 Body temperature 97.7 [degF] DO Peter Acs Work Phone: [facility] 12-17-2023 07:31-0400 Body weight 123.9 kg DO Peter Shens Work Phone: [facility] 12-17-2023 07:31-0400 Diastolic blood pressure 90 mm[Hg] DO Peterluiza Shens Work Phone: [facility] 12-17-2023 07:31-0400 Heart rate 88 /min DO Peter Acs Work Phone: [facility] 12-17-2023 07:31-0400 Respiratory rate 20 /min DO Peter Shens Work Phone: [facility] 12-17-2023 07:31-0400 SaO2% (BldA) [Mass fraction] 97 % DO Peter Shens Work Phone: [facility] 12-17-2023 07:31-0400 Systolic blood pressure 143 mm[Hg] DO Peter Kuns Work Phone: [facility] 06-08-2023 10:30-0500 Body height 182.88 cm Peterluiza Shens Other [employer] Other 06-08-2023 10:30-0500 Body mass index (BMI) [Ratio] 34.91 kg/m2 Peterluiza Ahumada Other [employer] Other 06-08-2023 10:30-0500 Body weight 116.76 kg Peterluiza Ahumada Other [employer] Other 06-08-2023 10:30-0500 Diastolic blood pressure 82 mm[Hg] Peter Ahumada Other [employer] Other 06-08-2023 10:30-0500 Respiratory rate 16 /min Peter Ahumada Other [employer] Other 06-08-2023 10:30-0500 SaO2% (BldA) [Mass fraction] 98 % Peter Ahumada Other [employer] Other 06-08-2023 10:30-0500 Systolic blood pressure 126 mm[Hg] Peter Blake Other [employer] Other 05-24-2023 15:00-0400 Body height 182.88 cm Peter Blake Other [employer] Other 05-24-2023 15:00-0400 Body mass index (BMI) [Ratio] 35.12 kg/m2 Peter Ahumada Other [employer] Other 05-24-2023 15:00-0400 Body weight 117.48 kg Peter Ahumada Other [employer] Other 05-24-2023 15:00-0400 Diastolic blood pressure 86 mm[Hg] Peter Ahumada Other [employer] Other 05-24-2023 15:00-0400 Respiratory rate 16 /min Peter Ahumada Other [employer] Other 05-24-2023 15:00-0400 SaO2% (BldA) [Mass fraction] 95 % Peter Ahumada Other [employer] Other 05-24-2023 15:00-0400 Systolic blood pressure 130 mm[Hg] Peter Ahumada Other [employer] Other 03-21-2023 08:30-0400 Body height 182.88 cm Peter Ahumada Other [employer] Other 03-21-2023 08:30-0400 Body mass index (BMI) [Ratio] 34.39 kg/m2 Peter Ahumada Other [employer] Other 03-21-2023 08:30-0400 Body weight 115.03 kg Peter Ahumada Other [employer] Other 03-21-2023 08:30-0400 Diastolic blood pressure 70 mm[Hg] Peter Ahumada Other [employer] Other 03-21-2023 08:30-0400 Respiratory rate 16 /min Peter Ahumada Other [employer] Other 03-21-2023 08:30-0400 SaO2% (BldA) [Mass fraction] 95 % Peter Ahumada Other [employer] Other 03-21-2023 08:30-0400 Systolic blood pressure 124 mm[Hg] Peter Ahumada Other [employer] Other 11-01-2022 13:49-0400 Diastolic blood pressure 90 mm[Hg] DO Peter Acs Work Phone: [facility] 11-01-2022 13:49-0400 Systolic blood pressure 153 mm[Hg] DO Peter Kuns Work Phone: [facility] 11-01-2022 13:02-0400 Body temperature 97.6 [degF] DO Peter Acs Work Phone: [facility] 11-01-2022 13:02-0400 Heart rate 72 /min DO Peter Acs Work Phone: [facility] 11-01-2022 13:02-0400 Respiratory rate 18 /min DO Peter Acs Work Phone: [facility] 11-01-2022 13:02-0400 SaO2% (BldA) [Mass fraction] 96 % DO Peter Shens Work Phone: [facility] 11-01-2022 08:58-0400 Body height 182.88 cm DO Peterluiza Shens Work Phone: [facility] 11-01-2022 08:58-0400 Body weight 117.93 kg DO Peter Shens Work Phone: [facility] 05-25-2022 17:00-0400 Body height 182.88 cm Peter Ahumada Other [facility] [employer] Other 05-25-2022 17:00-0400 Body mass index (BMI) [Ratio] 33.63 kg/m2 Peter Shens Other [facility] [employer] Other 05-25-2022 17:00-0400 Body weight 112.49 kg Peter Shens Other [employer] Other 05-25-2022 17:00-0400 Diastolic blood pressure 74 mm[Hg] Peterluiza Shenshira Other [employer] Other 05-25-2022 17:00-0400 Respiratory rate 16 /min Peter Shenshira Other [employer] Other 05-25-2022 17:00-0400 SaO2% (BldA) [Mass fraction] Peter Ahumada Other [employer] Other 05-25-2022 17:00-0400 Systolic blood pressure 118 mm[Hg] Peter Ahumada Other [employer] Other 04-24-2022 09:15-0400 Body height 182.88 cm Peter Ahumada Other [employer] Other 04-24-2022 09:15-0400 Body mass index (BMI) [Ratio] 33.5 kg/m2 Peterluiza Shenshira Other [employer] Other 04-24-2022 09:15-0400 Body weight 112.04 kg Peter Ahumada Other [employer] Other 04-24-2022 09:15-0400 Diastolic blood pressure 78 mm[Hg] Peter Ahumada Other [employer] Other 04-24-2022 09:15-0400 Respiratory rate 18 /min Peter Ahumada Other [employer] Other 04-24-2022 09:15-0400 SaO2% (BldA) [Mass fraction] 96 % Peter Ahumada Other [employer] Other 04-24-2022 09:15-0400 Systolic blood pressure 124 mm[Hg] Peter Ahumada Other [employer] Other 11-02-2021 12:00-0400 Body height 182.88 cm Peter Ahumada Other [employer] Other 11-02-2021 12:00-0400 Body mass index (BMI) [Ratio] 34.44 kg/m2 Peter Ahumada Other [employer] Other 11-02-2021 12:00-0400 Body weight 115.21 kg Peter Ahumada Other [employer] Other 11-02-2021 12:00-0400 Diastolic blood pressure 66 mm[Hg] Peter Ahumada Other [employer] Other 11-02-2021 12:00-0400 Respiratory rate 16 /min Peter Blake Other [employer] Other 11-02-2021 12:00-0400 SaO2% (BldA) [Mass fraction] 97 % Peter Ahumada Other [employer] Other 11-02-2021 12:00-0400 Systolic blood pressure 124 mm[Hg] Peter Ahumada Other [employer] Other 10-17-2021 09:15-0400 Body height 182.88 cm Peter Ahumada Other [employer] Other 10-17-2021 09:15-0400 Body mass index (BMI) [Ratio] 34.2 kg/m2 Peter Ahumada Other [employer] Other 10-17-2021 09:15-0400 Body weight 114.4 kg Peter Ahumada Other [employer] Other 10-17-2021 09:15-0400 Diastolic blood pressure 76 mm[Hg] Peter Ahumada Other [employer] Other 10-17-2021 09:15-0400 Respiratory rate 18 /min Peter Ahumada Other [employer] Other 10-17-2021 09:15-0400 SaO2% (BldA) [Mass fraction] 98 % Peter Ahumada Other [employer] Other 10-17-2021 09:15-0400 Systolic blood pressure 118 mm[Hg] Peter Ahumada Other [employer] Other 10-13-2021 13:28-0400 Body height 182.9 cm Kate Daniel MD Work Phone: [facility] 10-13-2021 13:28-0400 Body temperature 97.7 [degF] Kate Daniel MD Work Phone: [facility] 10-13-2021 13:28-0400 Body weight 115.21 kg Kate Daniel MD Work Phone: [facility] 10-13-2021 13:28-0400 Diastolic blood pressure 55 mm[Hg] Kate Daniel MD Work Phone: [facility] 10-13-2021 13:28-0400 Heart rate 68 /min Kate Daniel MD Work Phone: [facility] 10-13-2021 13:28-0400 SaO2% (BldA) [Mass fraction] 97 % Kate Daniel MD Work Phone: [facility] 10-13-2021 13:28-0400 Systolic blood pressure 112 mm[Hg] Kate Daniel MD Work Phone: [facility] 04-20-2021 08:45-0400 Body height 182.88 cm Peter Ahumada Other [employer] Other 04-20-2021 08:45-0400 Body mass index (BMI) [Ratio] 31.87 kg/m2 Peter Ahumada Other [employer] Other 04-20-2021 08:45-0400 Body weight 106.6 kg Peter Ahumada Other [employer] Other 04-20-2021 08:45-0400 Diastolic blood pressure 74 mm[Hg] Peter Ahumada Other [employer] Other 04-20-2021 08:45-0400 Respiratory rate 18 /min Peter Ahumada Other [employer] Other 04-20-2021 08:45-0400 SaO2% (BldA) [Mass fraction] 96 % Peter Ahumada Other [employer] Other 04-20-2021 08:45-0400 Systolic blood pressure 110 mm[Hg] Peter Ahumada Other [employer] Other Encounters Encounter Date Encounter Type Care Provider Facility Start: 09-01-2024 End: 09-01-2024 ambulatory Christos Manrique MD Facility:[facility] Start: 07-17-2024 End: 07-17-2024 ambulatory Peter Ahumada Facility:[facility] Start: 06-23-2024 End: 06-23-2024 ambulatory Christos Manrique MD Facility:[facility] Start: 06-10-2024 End: 06-10-2024 ambulatory Peter Ahumada DO Work Phone: [facility] Work Phone: Start: 06-10-2024 End: 06-10-2024 Patient encounter procedure Peter Ahumada DO Work Phone: [facility] [place] Work Phone: Start: 06-04-2024 End: 06-04-2024 Patient encounter procedure Peter Ahumada DO Work Phone: [facility] [address] [place] Work Phone: Start: 06-04-2024 End: 06-04-2024 ambulatory Peter Ahumada DO Work Phone: [facility] Work Phone: Start: 05-22-2024 End: 05-22-2024 Patient encounter procedure Rahul Castillo DO Work Phone: [facility] Comment on above: Lumbosacral radiculo yaritza (Primary Dx) Start: 05-22-2024 End: 05-22-2024 ambulatory RAHUL CASTILLO Not Available Start: 05-22-2024 End: 05-22-2024 Bamboo flowsheet Rahul Castillo DO Work Phone: [facility] Start: 05-22-2024 End: 05-22-2024 Bamboo flowsheet Rahul Castillo DO Work Phone: [facility] Start: 05-19-2024 End: 05-19-2024 ambulatory DO Peter Ahumada Work Phone: [facility] Work Phone: Start: 05-19-2024 End: 05-19-2024 Discharged Recurring DO Peter Ahumada Work Phone: [facility] [place] Work Phone: Start: 03-12-2024 End: 03-12-2024 Patient encounter procedure DO Peter Ahumada Work Phone: [facility]Ultras[facility] [place] Work Phone: Start: 03-12-2024 End: 03-12-2024 ambulatory DO Peter Ahumada Work Phone: [facility] Work Phone: Start: 03-06-2024 End: 03-06-2024 ambulatory DO Peter Ahumada Work Phone: [facility] Work Phone: Start: 03-06-2024 End: 03-06-2024 Patient encounter procedure DO Peter Ahumada Work Phone: [facility] [place] Work Phone: Start: 03-05-2024 End: 03-05-2024 Patient encounter procedure DO Peter Ahumada Work Phone: [facility] [place] Work Phone: Start: 03-05-2024 End: 03-05-2024 ambulatory DO Peter Ahumada Work Phone: [facility] Work Phone: Start: 02-28-2024 End: 02-28-2024 ambulatory ALBER HAINES Not Available Start: 02-13-2024 End: 02-13-2024 ambulatory DO Peter Ahumada Work Phone: [facility] Work Phone: Start: 02-13-2024 End: 02-13-2024 Patient encounter procedure DO Peter Ahumada Work Phone: [facility] Work Phone: Start: 02-13-2024 End: 02-13-2024 Patient encounter procedure DO Peterluiza Ahumada Work Phone: [facility] Start: 02-13-2024 End: 02-13-2024 ambulatory DO Peter Ahumada Work Phone: [facility] Work Phone: Start: 02-07-2024 End: 02-07-2024 ambulatory ALBER HAINES Not Available Start: 01-29-2024 End: 01-29-2024 Admission to same day surgery center DO Peter Ahumada Work Phone: [facility] [place] Start: 01-29-2024 End: 01-29-2024 ambulatory DO Peter Ahumada Work Phone: [facility] Work Phone: Start: 01-15-2024 End: 01-15-2024 Departed Referred DO Peter Ahumada Work Phone: [facility]-Pre-Surgical Testing Work Phone: Start: 01-15-2024 End: 01-15-2024 Patient encounter procedure DO Peter Ahumada Work Phone: [facility]Pre-Surgical Testing Work Phone: Start: 01-15-2024 End: 01-15-2024 ambulatory DO Peter Ahumada Work Phone: [facility] Work Phone: Start: 01-14-2024 End: 01-14-2024 ambulatory DO Peter Ahumada Work Phone: [facility] Work Phone: Start: 01-14-2024 End: 01-14-2024 Patient encounter procedure DO Peter Ahumada Work Phone: [facility] Work Phone: Start: 01-14-2024 End: 01-14-2024 Patient encounter procedure DO Peter Ahumada Work Phone: [facility] Start: 01-14-2024 End: 01-14-2024 ambulatory DO Peter Shens Work Phone: [facility] Work Phone: Start: 01-03-2024 End: 01-03-2024 ambulatory ALBER HAINES Not Available Start: 12-31-2023 End: 12-31-2023 ambulatory DO Peter Shens Work Phone: [facility] Work Phone: Start: 12-31-2023 End: 12-31-2023 Patient encounter procedure DO Peter Shens Work Phone: [facility] Work Phone: Start: 12-31-2023 End: 12-31-2023 Patient encounter procedure DO Peter Ahumada Work Phone: [facility]-Ultrasound [place] Work Phone: Start: 12-31-2023 End: 12-31-2023 ambulatory DO Peter Ahumada Work Phone: [facility] Work Phone: Start: 12-31-2023 End: 12-31-2023 ambulatory DO Peter Ahumada Work Phone: [facility] Work Phone: Start: 12-31-2023 End: 12-31-2023 Patient encounter procedure DO Peter Shens Work Phone: [facility] [place] Work Phone: Start: 12-28-2023 End: 12-28-2023 Patient encounter procedure DO Peterluiza Shens Work Phone: [facility] [place] Work Phone: Start: 12-28-2023 End: 12-28-2023 ambulatory DO Peter Acs Work Phone: [facility] Work Phone: Start: 12-27-2023 End: 12-27-2023 ambulatory DO Peter Blake Work Phone: [facility] Work Phone: Start: 12-27-2023 End: 12-27-2023 Patient encounter procedure DO Peterluiza Shenshira Work Phone: [facility] [place] Work Phone: Start: 12-19-2023 Non-patient / Non-visit DO Terry Ahumada Work Phone: [facility] Work Phone: Start: 12-17-2023 End: 12-17-2023 Emergency department patient visit DO Peterluiza Shenshira Work Phone: [facility]-Emergency Room Work Phone: Start: 12-12-2023 End: 12-12-2023 ambulatory ALBER HAINES Not Available Start: 12-03-2023 End: 12-03-2023 Patient encounter procedure DO Peter Blake Work Phone: [facility] Work Phone: Start: 12-03-2023 End: 12-03-2023 ambulatory DO Peter Ahumada Work Phone: [facility] Work Phone: Start: 08-27-2023 End: 08-27-2023 ambulatory Peter Ahumada Other [employer] Other Start: 08-27-2023 Telephone encounter Peter Ahumada [facility] [place] Start: 08-22-2023 End: 08-22-2023 ambulatory DO Peter Ahumada Work Phone: [facility] Work Phone: Start: 08-22-2023 End: 08-22-2023 Patient encounter procedure DO Peter Ahumada Work Phone: [facility] [place] Work Phone: Start: 08-20-2023 End: 08-20-2023 ambulatory Peter Ahumada Other [employer] Other Start: 08-20-2023 Telephone encounter Peter Ahumada [facility] [place] Start: 08-13-2023 Telephone encounter Peterluiza Ahumada [facility] [place] Start: 08-13-2023 End: 08-13-2023 Patient encounter procedure DO Peter Acshira Work Phone: [facility] Work Phone: Start: 08-13-2023 End: 08-13-2023 ambulatory DO Peterluiza Ahumada Work Phone: [employer] Other Start: 08-06-2023 End: 08-06-2023 ambulatory Peter Ahumada Other [employer] Other Start: 08-06-2023 Telephone encounter Peter Ahumada [facility] [place] Start: 06-11-2023 End: 06-11-2023 ambulatory Peter Ahumada Other [employer] Other Start: 06-11-2023 Telephone encounter Peter Blake [facility] [place] Start: 06-08-2023 Office outpatient vi sit 25 minutes Peter Ahumada [facility] [place] Start: 06-08-2023 End: 06-08-2023 ambulatory DO Peterluiza Ahumada Work Phone: [facility] Work Phone: Start: 06-08-2023 End: 06-08-2023 Patient encounter procedure DO Peter Ahumada Work Phone: [facility]-ay [place] Work Phone: Start: 06-08-2023 End: 06-08-2023 Patient encounter procedure DO Peter Ahumada Work Phone: [facility] [place] Work Phone: Start: 05-25-2023 End: 05-25-2023 Patient encounter procedure DO Peter Ahumada Work Phone: [facility] Work Phone: Start: 05-24-2023 End: 05-24-2023 ambulatory Peter Ahumada Other [employer] Other Start: 05-24-2023 Office outpatient vi sit 25 minutes Peter Ahumada [facility] [place] Start: 05-24-2023 End: 05-24-2023 Patient encounter procedure DO Peter Ahumada Work Phone: [facility] [place] Work Phone: Start: 03-21-2023 End: 03-21-2023 ambulatory Peter Ahumada Other [employer] Other Start: 03-21-2023 Office outpatient vi sit 15 minutes Peter Ahumada [facility] [place] Start: 03-19-2023 End: 03-19-2023 ambulatory DO Peter Ahumada Work Phone: [facility] Work Phone: Start: 03-19-2023 End: 03-19-2023 Patient encounter procedure DO Peter Ahumada Work Phone: [facility] [place] Work Phone: Start: 01-15-2023 End: 01-15-2023 ambulatory DO Peter Ahumada Work Phone: [facility] Work Phone: Start: 01-15-2023 End: 01-15-2023 Patient encounter procedure DO Peter Ahumada Work Phone: [facility] Start: 01-12-2023 End: 01-12-2023 ambulatory Peter Ahumada Other [employer] Other Start: 01-12-2023 Telephone encounter Peter Ahumada [facility] Start: 11-23-2022 End: 11-23-2022 Patient encounter procedure DO Peter Ahumada Work Phone: [facility] [place] Work Phone: Start: 11-01-2022 End: 11-01-2022 Emergency department patient visit DO Peter Ahumada Work Phone: [facility] Work Phone: Start: 10-31-2022 End: 10-31-2022 ambulatory DO Peter Ahumada Work Phone: [facility] Work Phone: Start: 10-31-2022 End: 10-31-2022 Patient encounter procedure DO Peterluiza Shenshira Work Phone: [facility] [place] Work Phone: Start: 05-25-2022 End: 05-25-2022 Departed Referred DO Peter Ahumada Work Phone: [facility] [place] Start: 05-25-2022 End: 05-25-2022 ambulatory DO Peter Ahumada Work Phone: [employer] Other Start: 05-25-2022 Office outpatient vi sit 15 minutes Peter Ahumada [facility] Start: 04-24-2022 End: 04-24-2022 ambulatory Peter Ahumada Other [employer] Other Start: 04-24-2022 Office outpatient vi sit 25 minutes Peter Ahumada [facility] Start: 04-19-2022 End: 04-19-2022 ambulatory DO Peter Ahumada Work Phone: [facility] Work Phone: Start: 04-19-2022 End: 04-19-2022 Patient encounter procedure DO Peter Ahumada Work Phone: [facility] Start: 11-15-2021 End: 11-15-2021 ambulatory Peter Ahumada Other [employer] Other Start: 11-15-2021 Telephone encounter Peter Ahumada [facility] Start: 11-02-2021 End: 11-02-2021 ambulatory Peter Ahumada Other [employer] Other Start: 11-02-2021 Office outpatient vi sit 15 minutes Peter Ahumada [facility] Start: 10-17-2021 End: 10-17-2021 ambulatory Peter Ahumada Other [employer] Other Start: 10-17-2021 Office outpatient vi sit 25 minutes Peter Ahumada [facility] Start: 10-13-2021 End: 10-13-2021 Patient encounter procedure Kate Daniel MD Work Phone: General Surgery Comment on above: Liver pain (Primary Dx) Start: 04-20-2021 Office outpatient vi sit 25 minutes Peter Ahumada [facility] Start: 02-22-2021 End: 02-22-[address] PETER AHUMADA Facility:[facility] Start: 11-30-2020 End: 11-30-2020 Subsequent hospital visit by physician Carlos Baker 1 Work Phone: Radiology Comment on above: Closed nondisplaced fracture of proximal phalanx of left little finger, initial encounter [S62.647A] Start: 11-18-2020 End: 11-18-2020 Subsequent hospital visit by physician Carlos Baker 1 Work Phone: Radiology Comment on above: Closed nondisplaced fracture of proximal phalanx of left little finger, initial encounter [R65.974H] Procedures Date Procedure Procedure Detail Performing Clinician Start: 06-04-2024 XR pre/post mri xray Zaki Ahumada DO Work Phone: Start: 06-04-2024 MRI of left ankle Peter Ahumada DO Work Phone: Start: 05-22-2024 End: 05-22-2024 Needle emg ea extremty w/paraspinl area complete Rahul Castillo DO Work Phone: Start: 03-12-2024 US scan of gallbladder DO Peterluiza Shens Work Phone: Start: 02-13-2024 Plain X-ray of right elbow DO Peter Shens Work Phone: Start: 01-29-2024 Repair of umbilical hernia DO Peter Shens Work Phone: Start: 01-14-2024 Plain X-ray of right elbow DO Peterluiza Shens Work Phone: Start: 12-31-2023 Ultrasonography of abdomen DO Peterluiza Shens Work Phone: Start: 12-28-2023 Plain X-ray of right elbow DO Peterluiza Shens Work Phone: Start: 12-28-2023 X-ray of right knee DO Peterluiza Shens Work Phone: Start: 12-17-2023 Plain X-ray of right clavicle DO Peterluiza Shens Work Phone: Start: 12-17-2023 Plain X-ray of right forearm DO Peterluiza Shens Work Phone: Start: 12-17-2023 Plain X-ray of right shoulder DO Peterluiza Shens Work Phone: Start: 12-17-2023 X-ray of left knee DO Maribeth Ahumada Work Phone: Start: 12-03-2023 Screening mammograph y of bilateral breasts DO Peter Ahumada Work Phone: Start: 08-13-2023 Ultrasonography of l eft breast DO Peter Ahumada Work Phone: Start: 06-08-2023 Plain X-ray of left hip DO Peter Ahumada Work Phone: Start: 05-25-2023 X-ray of lumbar spin e, two or three views DO Peter Ahumada Work Phone: Start: 01-15-2023 Ultrasonography of l [...] P,Tdap,Td Vaccine (2 - Td or Tdap) [facility] Start: 05-22-2024 End: 05-22-2024 Patient encounter procedure 05/22/2024 2:30 PM EDT Procedure Visit [facility] [address] [facility] [address] [place] [address] Rahul Castillo, DO [address] [place] [id number] [facility] Comment on above: Arrived Start: 03-23-2024 Covid-19 Vaccine ( season) Covid-19 Vaccine () [facility] Start: 03-23-2024 Influenza vaccination Influenz a Vaccine (#1) [facility] Start: 03-05-2024 [facility] Start: 02-13-2024 Plain X-ray of right elbow XR elbow RT 2V [facility] Start: 02-13-2024 XR Elbow - right 2 Views [facility] Start: 01-29-2024 [facility] Start: 01-29-2024 [facility] Start: 01-14-2024 Plain X-ray of right elbow XR elbow RT 2V [facility] Start: 01-14-2024 XR Elbow - right 2 Views [facility] Start: 12-31-2023 Patient referral [facility] Work Phone: Start: 2022 Screening for malign ant neoplasm of breast Mammogram Screening [facility] Start: 03-23-2021 Influenza vaccination INFLUENZA (#1) [facility] Start: 2012 HPV TESTING HPV TESTING [facility] Start: 2003 PAP TESTING PAP TESTING [facility] Start: 2003 Screening for malign ant neoplasm of cervix Cervical Cancer Screening [facility] Start: 2001 Hepatitis B Vaccine (1 of 3 - 19+ 3-dose series) Hepatitis B Vaccine (1 of 3 - 19+ 3-dose series) [facility] Start: 2001 Urine microalbumin profile DTA P,TDAP,TD (1 - Tdap) [facility] Start: 2000 Anxiety Screening Anxiety Screening [facility] Start: 2000 Depression Screening Depression Scre ening [facility] Start: 2000 HEPATITIS C SCREENING HEPATITIS C [facility] Start: 2000 Hepatitis C screening Hepatitis C [facility] Start: 2000 HIV SCREENING HIV SCREENING [facility] Start: 2000 HIV screening HIV Screening [facility] Start: 1994 Adult depression scr eening assessment DEPRESSION SCREENING [facility] Start: 1987 COVID-19 VACCINE (1) COVID-19 VACCIN E (1) [facility] Comprehensive metabo lic 1999 panel - Serum or Plasma [facility] Comprehensive metabo lic 1999 panel - Serum or Plasma [facility] Glucose measurement estimated from glycated hemoglobin [facility] Patient Education [facility] Work Phone: Patient referral [facility] Work Phone: RF Gastrointestinal tract upper Single view W air contrast PO [facility] US Gallbladder [facility] XR Elbow - right GE 3 Views [facility] Immunizations Immunization Date Immunization Notes Care Provider Fa cilibilly 12-17-2023 tetanus toxoid, reduced diphtheria toxoid, and acellular pertussis vaccine, adsorbed DO Peter Ahumada Work Phone: [facility] 06-07-2022 influenza, injectable, quadrivalent, preservative free Peter Blake Other [facility] 04-09-2020 influenza, seasonal, injectable Peter Blake Other [facility] [employer] Other 03-10-2019 influenza, seasonal, injectable Patient Objection Peter Ahumada Other [facility] [employer] Other 02-18-2018 tetanus toxoid, reduced diphtheria toxoid, and acellular pertussis vaccine, adsorbed Peter Blake Other [facility] NEGATED: Highlighted row has not occurred!06-07-2022 influenza, seasonal, injectable Patient Objection Peter Ahumada Other [facility] [employer] Other NEGATED: Highlighted row has not occurred!04-09-2020 influenza, seasonal, injectable Peterluiza Shens Other [employer] Other NEGATED: Highlighted row has not occurred!03-10-2019 influenza, seasonal, injectable Patient Objection Peter Kuns Other [facility] [employer] Other Payers Date Payer Category Payer Self-pay [id number] 2022 Unknown 2018 Medicaid [facility] [employer] [id number] 2018-Present [phone] [address] [place] [address] Medicaid [id number] 2018 Medicaid [employer]ICA[employer] [id number] 2018-2022 [address] [place] [address] Medicaid [id number] 2018 Private Health Insurance [facility] MEDICA[facility] [id number] 2018 Medicaid [id number] 1982 Unknown [id number] 2.16.840.1.316007.3.579.2 .593 1982 Unknown [id number] 2.16.840.1.620973.3.579.2 .1259 1982 Unknown [id number] 2.16.840.1.116824.3.579.2 .1259 1982 Unknown [id number] 2.16.840.1.938280.3.579.2 .9 1982 Unknown [id number] 2.16.840.1.124331.3.579.2 .9 1982 Unknown [id number] 2.16.840.1.799381.3.579.2 .9 1982 Unknown [id number] 2..840.1.279294.3.579.2 .196 1982 Unknown [id number] 2.16.840.1.274606.3.579.2 .196 1959 Unknown [id number] Unknown [id number] Unknown [id number] 2.16.840.1.294885.3.579.2 .531 Unknown [id number] 2.840.1.431317.3.579.2 .531 Unknown [id number] 2.16840.1.091473.3.579.2 .531 Unknown [id number] 2.16.840.1.008327.3.579.2 .531 Unknown [id number] 2.16.840.1.030446.3.579.2 .531 Unknown [id number] 2.16.840.1.979360.3.579.2 .531 Unknown [id number] 2.16.840.1.455770.3.579.2 .531 Unknown [id number] 2.16.840.1.801213.3.579.2 .531 Unknown [id number] 2.16.840.1.459521.3.579.2 .531 Unknown [id number] 2.16.840.1.552250.3.579.2 .531 Unknown [id number] 2.16.840.1.446794.3.579.2 .531 Unknown [id number] 2.16.840.1.203855.3.579.2 .531 Unknown [id number] 2.16.840.1.014678.3.579.2 .531 Unknown [id number] 2.16.840.1.413282.3.579.2 .531 Unknown [id number] 2.16.840.1.090978.3.579.2 .531 Social History Date Type Detail Facility Start: 03-03-2021 End: 03-06-2024 Tobacco smoking status NHIS Ex-smoker [facility] Work Phone: End: 06-22-2006 History of tobacco use Current smoker [facility] Work Phone: Start: 03-03-2021 End: 01-03-2024 Tobacco use and exposure Smokeless tobacco non-user [facility] Work Phone: Start: 10-13-2021 Alcohol intake Current drinker of alcohol (finding) [facility] Start: 03-03-2021 History SDOH Alcohol Comment occ [facility] Start: 03-03-2021 Tobacco Comment Smoked 1 pack a week, quit in 2005, can't remember start date [facility] Start: 1980 Sex Assigned At Not on file [facility] Start: 06-30-2020 End: 01-03-2024 Sex Assigned At [employer] Other Start: 11-25-2015 End: 02-15-2021 Tobacco smoking status [facility] Never smoked tobacco (finding) [facility] Start: 1980 Sex Assigned At Female [facility] Start: 11-25-2015 Alcoholic beverage intake Not Asked [facility] Start: 06-30-2020 End: 01-03-2024 History of Social function [facility] National Score (1-10 0), lower number is lower risk Not on file [facility] Start: 10-19-2020 End: 11-30-2020 Exposure to SARS-CoV-2 (event) Not sure [facility] End: 06-22-2006 History of tobacco use Cigarette Smoker [facility] Start: 02-04-2024 Alcoholic beverage intake Ex-drinker (finding) [facility] Start: 01-25-2023 Tobacco Comment Quit smoking 10 years ago [facility] Start: 01-25-2023 Alcohol Comment caffeine 1-2 cups/day [facility] Start: 01-18-2023 Gender identity Identifies as female gender (finding) [facility] Start: 01-18-2023 Sexual orientation Heterosexual (finding) [facility] Start: 06-05-2024 End: 06-10-2024 Sex Female (finding) [facility] Medical Equipment Procedure Code Equipment Code Equipment [...] Patient: Darling Khanna : 1980 EMG Computer: [employer] Referring Physician: Dr. Robert Martinez EMG: BLE loin puller: Cayetano Moreno RT(R) Office Location: [place] Reason for EMG: c/o low back pain into left hip, pain in right knee, pain in bilateral heels. No hx of DM. Not on blood thinners. Comments: Procedure was explained to the patient who expressed understanding. Patient appeared to have tolerated the test well despite some discomfort due to the nature of the test. documented in this encounter [facility] 03-06-2024 Evaluation note Authored March 06, 2024 2: 47pm The above note written by Thuan STRINGER acting as human recorder, note dictated by Dr.Bryan Ahumada. [facility] Work Phone: [phone]) 562-295901-22-2024 Evaluation note* Encounter Date Diagnosis Assessment Notes Treatment Notes Treatment Clinical Notes Jul, Abnormal mammogram of left breast (ICD-10 - R92.8) [employer] Other 01-15-2024 Evaluation note* Encounter Date Diagnosis Assessment Notes Treatment Notes Treatment Clinical Notes Jul, Abnormal mammogram (ICD-10 - R92.8) [employer] Other 11-17-2023 Evaluation note* Encounter Date Diagnosis [...] modification. May, Acute bronchitis (ICD-10 - J20.9) [employer] Other 11-02-2023 Evaluation note* Encounter Date Diagnosis [...] exercise regimen; we will continue to monitor. [employer] Other 08-30-2023 Evaluation note* Encounter Date Diagnosis [...] been ordered to use for allergic reaction. [employer] Other 06-23-2023 Evaluation note* Encounter Date Diagnosis Assessment Notes Treatment Notes Treatment Clinical Notes Dec, Mass of upper outer quadrant of left breast (ICD-10 - N63.21) [employer] Other 11-03-2022 Evaluation note* Encounter Date Diagnosis [...] sent to the lab to determine pathology. [employer] Other 10-03-2022 Evaluation note* Encounter Date Diagnosis [...] excisional biopsy. 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 [employer] Other 03-28-2022 Evaluation note* Encounter Date Diagnosis [...] eye. These will be removed with hyfrecator. [employer] Other 03-24-2022 NoteHNO ID: [id number] Author: Kate Daniel MD Service: ? Author Type: Physician Type: Progress Notes Filed: 10/17/2021 1:50 PM Note Text: Assessment ESTABLISHED PATIENT Darling Khanna is a 40 year old female with a right posterior liver subcapsular fluid collection ? 03/03/2021: Patient presented to [facility] ER on 02/08/2021 for 2 days for acute ride sided abdominal/flank pain, right shoulder discomfort and nausea. She was diagnosed with Klebsiella pneumoniae UTI and was discharged with oral keflex and zofran. Patient represented to ER on 02/09/2021 for the continued complaints of pain. ? Referral From:?PCP- Peter Ahumada, DO Reason:?right abdominal pain pain; liver?fluid collection? ? Received Records From:? 02/08/2021 ER Report [facility] 02/09/2021 ER Report [facility] 02/15/2021 PCP Office note ? Visited ER [...] gradually improving. US of ovaries yesterday at [facility]. Scheduled for upper GI at end of month. Gained?50 pounds since July?(was in [place] for 3 months, drank a lot); diagnosed [...] well. She did spend 3 months in [place] and did not have any issues, hospitalizations [...] which included preparing to see the patient, [id number] patient care and completing clinical documentation. [facility] Nurse Note* Jayne Aguila Ma - 10/13/2021 1:32 PM EDT What is the reason for your visit today? Follow up Who is your referring physician? Are you having poor oral intake? NO Have you had unintentional weight loss of 15 lbs/7 Kg in the last 3-6 months? NO Bowels: regular Wound: Temperature: No Drains: No documented in this encounterNation[facility] History of Present illness Narrative* Kate Daniel MD - 10/13/2021 1:30 PM EDT Assessment ESTABLISHED PATIENT Darling Khanna is a 40 year old female with a right posterior liver subcapsular fluid collection 03/03/2021: Patient presented to [facility] ER on 02/08/2021 for 2 days for [...] collection Received Records From: 02/08/2021 ER Report [facility] 02/09/2021 ER Report [facility] 02/15/2021 PCP Office note Visited ER 4 [...] gradually improving. US of ovaries yesterday at [facility]. Scheduled for upper GI at end of month. Gained 50 pounds since July (was in [place] for 3 months, drank a lot); diagnosed [...] well. She did spend 3 months in [place] and did not have any issues, hospitalizations [...] which included preparing to see the patient, [id number] patient care and completing clinical documentation. Kate Daniel MD documented in this encounterNationwide [facility]09-29-2021 Evaluation note* Encounter Date Diagnosis Assessment Notes [...] loss since starting a dieting plan called [employer]. Encouraged her to continue monitoring her diet as she voices a goal of getting under 200lbs. We will continue to monitor. [employer] Other 09-16-2021 NoteHNO ID: [id number] Author: Kate Daniel MD Service: ? Author Type: Physician Type: Progress Notes Filed: 04/11/2021 3:19 PM Note Text: Assessment ESTABLISHED PATIENT Darling Khanna is a 40 year old female with a right posterior liver subcapsular fluid collection 03/03/2021: Patient presented to [facility] ER on 02/08/2021 for 2 days for acute ride sided abdominal/flank pain, right shoulder discomfort and nausea. She was diagnosed with Klebsiella pneumoniae UTI and was discharged with oral keflex and zofran. Patient represented to ER on 02/09/2021 for the continued complaints of pain. ? Referral From:?PCP- Peter Ahumada, DO Reason:?right abdominal pain pain; liver?fluid collection? ? Received Records From:? 02/08/2021 ER Report [facility] 02/09/2021 ER Report [facility] 02/15/2021 PCP Office note ? Visited ER [...] gradually improving. US of ovaries yesterday at [facility]. Scheduled for upper GI at end of month. Gained 50 pounds since July (was in [place] for 3 months, drank a lot); diagnosed [...] which included preparing to see the patient, [id number] patient care and completing clinical documentation. Kate Daniel, [place] [address]-01-2021 NoteHNO ID: [id number] Author: William De León MD Service: ? [...] findings to suggest etiology Pre-conference plan (from [employer]): - Observation and serial imaging Imaging Review: - January 2021 - CT Abd/Pelvis and MRI Final Consensus Recommendation(s): - No clear etiology of right posterior subcapsular fluid collection - Fluid consistency is not consistent with a hematoma - No underlying masses or intrinsic liver pathology Final recommendation(s) differ from pre-conference plan? (Y/N) - No William De León MD [facility] Surgical Fellow [facility]08-12-2021 NoteHNO ID: [id number] Author: Kate Daniel MD Service: ? Author [...] 40 year old female Patient presented to [facility] ER on 02/08/2021 for 2 days for acute ride sided abdominal/flank pain, right shoulder discomfort and nausea. She was diagnosed with Klebsiella pneumoniae UTI and was discharged with oral keflex and zofran. Patient represented to ER on 02/09/2021 for the continued complaints of pain. ? Referral From: PCP- Peter Ahumada, DO Reason: right abdominal pain pain; liver fluid collection ? Received Records From: 02/08/2021 ER Report [facility] 02/09/2021 ER Report [facility] 02/15/2021 PCP Office note Visited ER 4 [...] gradually improving. US of ovaries yesterday at [facility]. Scheduled for upper GI at end of month. Gained 50 pounds since July (was in [place] for 3 months, drank a lot); diagnosed [...] was malignant. Seen by Dr. Haines on [facility], in [facility]; denies chemotherapy or radiation. Hernia repair Social [...] rhythm. Abdomen: Abdomen so (more content not included)...[facility] 12-28-2020 NoteHNO ID: [id number] Author: Tracey Hair Ma Service: ? Author Type: ? Type: Progress Notes Filed: 12/28/2020 4:25 PM Note Text: Dispensed XL/XXL Reaction brace for the Right knee. Dispensed by [employer] Lube Technician. Instructions were given on application/adjustments. She will f/u as scheduled/prn. Tracey Hair MA,[facility] 12-28-2020 NoteHNO ID: [id number] Author: Ishan Yusuf, DO Service: ? Author [...] formal PT if not improving Procedures Ishan Yusuf, [facility]05-11-2021 NoteHNO ID: [id number] Author: Ishan Yusuf, DO Service: ? Author [...] results and radiologist's interpretation, available in the [facility] health record. Images were reviewed with the patient/family members in the office today. My personal interpretation of the performed imaging is healing proximal phalanx fracture CLINICAL IMPRESSION / ASSESSMENT: (U26.932A) Closed nondisplaced fracture of proximal phalanx of left little finger, initial encounter (primary encounter diagnosis) PLAN: Start weaning out of the splint at this time Can start OT at this time ROM as tolerated Follow-up in 3-4 weeks Procedures Ishan Yusuf, [facility]05-11-2021 NoteHNO ID: [id number] Author: RT Suzanna(R) Service: ? Author Type: General Warehouse Associate Type: Progress Notes Filed: 11/30/2020 3:44 PM [...] BY: RT Suzanna(R) November 30, 2020 3:43 [facility]04-29-2021 NoteHNO ID: [id number] Author: RT Victor M(R) Service: ? Author Type: General Warehouse Associate Type: Progress Notes Filed: 11/18/2020 3:47 PM [...] PERIPHERAL IV DATA: Not applicable SIGNED BY: Lexus Villareal RT(R) November 18, 2020 3:45 [facility]04-29-2021 NoteHNO ID: [id number] Author: Ishan Yusuf, DO Service: ? Author [...] results and radiologist's interpretation, available in the [facility] health record. Images were reviewed with the patient/family members in the office today. My personal interpretation of the performed imaging is intra-articular proximal phalanx fracture CLINICAL IMPRESSION / ASSESSMENT: (S62.647A) Closed nondisplaced fracture of proximal phalanx of left little finger, initial encounter (primary encounter diagnosis) PLAN: Placed her in aluminum splint Will discuss case with Dr. [place] due to some progression of depression Follow-up accordingly Procedures Ishan Yusuf, [facility]04-15-2021 NoteHNO ID: [id number] Author: Bob Millan Service: ? Author Type: Physician Type: Progress Notes Filed: 11/04/2020 2:12 PM Note Text: [facility] Office Visit Documentation Note [facility] Sports Medicine Orthopaedic and Rheumatologic [place] REASON FOR VISIT / CHIEF COMPLAINT SERVICE [...] results and radiologist's interpretation, available in the [facility] health record. Images were reviewed with the patient/family members in the office today. My personal interpretation of the performed imaging is Has IA prox phalanx fracture at PIP ASSESSMENT / PLAN CLINICAL IMPRESSION / ASSESSMENT: (N14.199Z) Closed nondisplaced fracture of proximal phalanx of [...] plan as detailed above. Bob Millan D.O. [facility] [place] Team Physician, [facility] [place] [facility] Consulting Physician, [place], Park Interpretive Ranger [phone] Patient verbalizes understanding and agrees with the treatment plan as detailed above.[facility] Hospital[facility]* Diagnosis Liver pain- Primary Abdominal pain, other specified site documented in this encounter [facility] noteNo InformationNortDispatch Other Evaluation noteNo assessment information available [facility] Work Phone: evaluation note* Diagnosis Onset Date Resolution Status Ground-level fall acute Laceration of knee, left acu te Right elbow pain acute [facility] Work Phone: evaluation note* Diagnosis Onset Date Resolution Status Ground-level fall acute Laceration of knee, left acu te Right elbow pain acute Elbow fracture, right acute Hypothyroidism acute Laceration of knee, left acu te [facility] Work Phone: Evaluation note* Diagnosis Onset Date Resolution Status Ground-level fall acute Laceration of knee, left acu te Right elbow pain acute Elbow fracture, right acute Hypothyroidism acute Laceration of knee, left acu te Fracture of radial neck, right, closed acute [facility] Work Phone: evaluation note* Diagnosis Onset Date Resolution Status Ground-level fall acute Laceration of knee, left acu te Right elbow pain acute Elbow fracture, right acute Hypothyroidism acute Laceration of knee, left acu te Fracture of radial neck, right, closed acute Fracture of radial neck, right, closed acute [facility] Work Phone: evaluation note* Diagnosis Onset Date Resolution Status Ground-level fall acute Laceration of knee, left acu te Right elbow pain acute Elbow fracture, right acute Hypothyroidism acute Laceration of knee, left acu te Fracture of radial neck, right, closed acute Fracture of radial neck, right, closed acute Fracture of radial neck, right, closed acute [facility] Work Phone: Evaluation note* Author Hyacinth Hutton [facility] Authored March 06, 2024 2: 47pm The above note written by Thuan STRINGER acting as human recorder, note dictated by Dr.Bryan Ahumada. [facility] Work Phone: Evaluation note* Diagnosis Closed nondisplaced fracture of proximal phalanx of left little finger, initial encounter documented in this encounter [facility]* Diagnosis Lumbosacral radiculopathy- Primary Thoracic or lumbosacral neuritis or radiculitis, unspecified [facility] Diagnosis Onset Date Resolution Status Admit Date Bilateral foot pain acute Novem 2023 2:36pm Fatty liver acute May 2:36pm GERD (gastroesophageal reflu x disease) acute June 10, 2 024 2:36pm Hypothyroidism acute May 232023 2:36pm Pre-diabetes acute May 2:36pm [facility] Work Phone: History general Narrative - Reported* Type Description Date Medical History asthma Medical History HPV Medical History f/u with Health Dept for DATABASE MANAGEMENT SPECIALIST needs Medical History Inclusion cyst Surgical History jaw surgery for underbite Surgical History breast biopsy 2018 Hospitalization History see surgical hx [employer] Other Hospital Discharge instructions Additional Instructions [place] diet as tolerated Increase oral fluids Take the diclofenac twice a day as needed for pain and inflammation Take oxycodone every 6 hours for severe pain Follow-up with your family doctor for recheck I also gave you the number for gastroenterology Return to the ER for more severe pain high fever vomiting or any other concerns [facility] Work Phone: Hospital Discharge instructions Additional Instructions [facility] Work [facility]: Hospital Discharge instructions Additional Instructions [...] directed for pain unless a prescription was provided.[facility] Work Phone: Reason for visit Narrative* Other Medical (Routine) - Closed Specialty Diagnoses / Procedures Referred By Clarisse t Referred To Contact Neurology Diagnoses Sciatica, left side Procedures CA NEEDLE EMG EA EXTREMTY W/PARASPINL AREA COMPLETE CA NERVE CONDUCTION STUDIES 9-10 STUDIES Robert Martinez MD [address] [place] [address] Phone: tel: fax: Shakeel Rios MD [address] [place] [address] Phone: tel: fax: Referral ID Status Reason Start Date Expiration Date V isits Requested Visits Authorized [id number] Closed Perform Procedure 05/13/2024 11/09/2024 1 1 [facility] Summary Purpose Family History No Family History Records Found Relationship Condition Age at Onset Recorded Date/T sarah family member Family history of other condition Unknow n Not Specified Malignant neoplasm Unknown Family history of other condition Unknown Relationship Condition Age at Onset Recorded Date/T sarah mother Malignant neoplasm of uterus Unknown Advance Directives No Advanced Directives Records Found Advance Directive Response Recorded Date/ Time Advance Directives No Alisa 19t h, 2017 3:21pm Advance Directive Response Recorded Date/ Time [...] and content) DATE CREATED AUTHOR 02/25/2021 [facility] DATE CREATED AUTHOR AUTHOR'S ORGANIZ ATION 10/18/2021 [facility] DATE CREATED AUTHOR AUTHOR'S ORGANIZ ATION 05/24/2024 [facility] DATE CREATED AUTHOR AUTHOR'S ORGANIZ ATION 07/19/2024 [facility] DATE CREATED AUTHOR AUTHOR'S ORGANIZ ATION 09/09/2024 [facility] Source Comments (unrecognize d section and content) In the event this informatio n is protected by the Federal Confidentiality of Alcohol and Drug Abuse Patient Records regulations: The Federal rules restrict any use of the information to criminally investigate or prosecute any alcohol or drug abuse patient.[facility] HospitalIn the event this information is protected by the Federal Confidentiality of Alcohol and Drug Abuse Patient Records regulations: The Federal rules restrict any use of the information to criminally investigate or prosecute any alcohol or drug abuse patient.[facility] HospitalIn the event this information is protected by the Federal Confidentiality of Alcohol and Drug Abuse Patient Records regulations: The Federal rules restrict any use of the information to criminally investigate or prosecute any alcohol or drug abuse patient.[facility] Reason for Visit (unrecogniz ed section and content) Reason Comments Established Patient Care Teams (unrecognized sec tion and content) Team Status: Active Member Role Status Dates Peter Ahumada DO Primary Care Provider Active Team Status: Inactive Member Role Status Dates Peter Ahumada DO Primary Care Provider, Attending Provi dani Active Teacher Vocal Relationship Specialty Start Date End Date Peter Ahumada DO [address] [place] [address] PCP - General Family Practice 11/22/15 Team Status: Inactive Member Role Status Dates Peter Ahumada DO Primary Care Provider Active Alba Marshall , TAKER OFF BRAKER MACHINE- Emergency Provider Active Team Status: Inactive Member Role Status Dates Peter Ahumada DO Primary Care Provider Active Koki Elkins ([facility]) , ACCOUNTS PAYABLE SPECIALIST Attending Provider Active Team Status: Inactive Member Role Status Dates Peter Ahumada DO Attending Provider Active Start: May 24, 2023 End: May 24, 2023 Team Status: Inactive Member Role Status Katarina Ahumada DO Primary Care Provide r, Attending Provider Active Start: May 25, 2023 End: May 25, 2023 Team Status: Inactive Member Role Status Dates Peter Ahumada DO Attending Provider Active Start: June 08, 2023 End: June 08, 2023 Team Status: Inactive Member Role Status Katarina Ahumada DO Primary Care Provide r, Attending Provider Active Start: June 08, 2023 End: June 08, 2023 Team Status: Inactive Member Role Status Katarina Ahumada DO Primary Care Provide r, Attending Provider Active Start: August 13, 2023 End: August 13, 2023 Team Status: Inactive Member Role Status Katarina Ahumada DO Primary Care Provide r, Attending Provider Active Start: August 22, 2023 End: August 22, 2023 Team Status: Inactive Member Role Status Katarina Ahumada DO Primary Care Provide r, Referring Provider Active Start: December 03, 2023 End: December 03, 2023 Referral Self Attending Provider Active Start: Silva yoon 2023 End: December 03, 2023 Team Status: [...] 31, 2023 End: December 31, 2023 Chas Meza DO Attending Provider Active S tart: December [...] Sta rt: January 14, 2024 Chas Meza DO Attending Provider Active S tart: January 14, 2024 Team Status: Inactive Member Role Status Dates Peter Ahumada DO Primary Care Provider Active Sta rt: January 14, 2024 End: January 14, 2024 Chas Meza DO Attending Provider Active S tart: January [...] rt: February 13, 2024 Chas Meza , Attending Provider Active S tart: February 13, [...] March 12, 2024 End: March 12, 2024 Teacher Vocal Relationship Specialty Start Date End Date Peter Ahumada [place] [facility] [place] [address] PCP - General Family Medicine 11/22/15 Team Status: Inactive Member Role Status Dates Peter Ahumada DO Primary Care Provider Active Sta rt: May 19, 2024 End: May 19, 2024 Robert Martinez DPM MS Attending Provider Active Start: May 19, 2024 End: May 19, 2024 Teacher Vocal Relationship Specialty Start Date End Date Peter Ahumada MD [facility] [place] [address] PCP - General 01/25/23 Teacher Vocal Relationship Specialty Start Date End Date Peter Ahumada MD [address] [place] [address] PCP - General 01/25/23 Team Status: Inactive Member Role [...] BE BASED ON THE PRIMARY CLINICAL RECORDS. [employer] provides no warranty or guarantee of the accuracy or completeness of information in this document.
--- NOTE | 2024-09-11 08:30 | P.CN_ITS ---
Consult Note: HPI Data of Consult Patient: known to practice within the last 3 years Consult date: 06/23/24 Requesting Physician: Anastasiya Thomas NP Primary Care Provider: Non-Staff Physician, MD Consult Narrative Reason for consult: low back, bilateral feet pain Narrative: 44yof who presents for evaluation. longstanding pain in bilateral feet, also increasing low back pain. mri indicative of plantar fasciitis. had lower extremity EMG, which showed S1 radiculopathy. completed 13 sessions of PT within past 3 months, which provided some benefit. uses otc pain meds as needed. denies adverse med side effects. recently underwent bilateral LS1 TFESI wtih 80% improvement ongoing. continues to have moderate to severe left hip and low back pain without radiculopathy. cc:: CC: Anastasiya Thomas NP Review of Systems ROS Status of ROS 10 or more systems reviewed and unremark able except as noted in history and below Musculoskeletal Reports: back pain and joint pain; Denies: extremity pain PFSH PFSH Medical History (Updated 09/11/24 @ 08:32 by Anastasiya Thomas NP) Simple cyst of breast ?N60.09 - Solitary cyst of unspecified breast (ICD-10) Sebaceous cyst ?L72.3 - Sebaceous cyst (ICD-10) Low back pain ?M54.50 - Low back pain, unspecified (ICD-10) Hypothyroid ?E03.9 - Hypothyroidism, unspecified (ICD-10) Asthma ?J45.909 - Unspecified asthma, uncomplicated (ICD-10) Surgical History S/P hernia repair ?Z98.890 - Other specified postprocedural states (ICD-10) ?Z87.19 - Personal history of other diseases of the digestive system (ICD-10) History of mandibular surgery ?Z98.890 - Other specified postprocedural states (ICD-10) Meds Home Medications and Allergies Home Medications ?Medication ?Instructions ?Recorded ?Confirmed ?Type esomeprazole magnesium 40 mg 40 mg PO DAILY 06/23/24 09/01/24 History capsule,delayed release glow gummies 06/23/24 History levothyroxine 88 mcg capsule 88 mcg PO DAILY 06/23/24 09/01/24 History meloxicam 15 mg tablet 15 mg PO DAILY 06/23/24 09/01/24 History esteban control 06/23/24 History multivitamin-ferrous 1 tab PO DAILY 06/23/24 09/01/24 History fumarate-folic acid 18 mg-400 mcg tablet (Centrum Women) ni-rd-blxjfr 68 mcg DFE-caff 95 ea PO 06/23/24 History [id number]-[id number]-tea oral effer pwdr pack (ATP Ignite) albuterol sulfate 90 mcg/actuation 2 puff inhalation PRN shortness of 09/01/24 History aerosol inhaler breath or wheezing Allergies Allergy/AdvReac Type Severity Reaction Status Date / Time benzonatate AdvReac Mild Diarrhea Verified 06/23/24 15:00 indomethacin AdvReac Mild swelling Verified 06/23/24 15:00 Exam Constitutional Documenting provider has reviewed patient's vital signs: yes Common normals: no apparent distress, oriented x3, healthy appearing, alert and well nourished General appearance: cooperative HENNY Common normals: normocephalic, hearing grossly normal bilaterally and moist oral mucous membranes Head and scalp: normocephalic Eye Common normals: PERRL Pupil: PERRL Neck & C-Spine Common normals: full ROM General: normal visual inspection Chest Common normals: inspection of chest normal Respiratory Common normals: normal respiratory effort, no retractions and no use of accessory muscles Back & Pelvis Lumbar spine/lower back: lumbar ROM normal, pain with ROM, lumbar spinal tenderness and straight leg raise positive left Sacroiliac joints: SI joint(s) abnormal Other: tenderness over left GTB increased left hip pain with internal rotation, negative external rotation sensation intact BLE facet loading positive L4-S1 Extremity Common normals: normal to inspection and full ROM Neuro Common normals: oriented x3, CN's II-XII intact bilaterally, moves all extremities, no focal motor deficits, no sensory deficits noted and deep tendon reflexes 2+ bilaterally Sensorium/orientation: alert Motor exam: strength 5/5 throughout and no movement abnormalities noted Psych Common normals: mental status grossly normal, thought process normal, cooperative, affect normal, speech normal and activity/motor behavior normal Speech: normal speech Thought process: normal thought process Results Additional Findings Additional findings: If on a controlled substance or opioids, I have checked an [place] report on this patient and there are no aberrancies noted in the prescribing history.??If on a controlled substance or opioid a drug screen was completed and reviewed within the last year, and if there has not been a drug screen completed we ordered one today to monitor higher risk, state monitored pain medication use. As part of providing excellent, safe, comprehensive care, the following was completed at our patient's visit: 1. A medication reconciliation and review to ensure accurate knowledge of curren t/active medications, including asking our patients to inform us about any tfdg-fhu-gmcgmak medications or herbal remedies/nutritional supplements/alternative remedies. 2. A review to specifically ensure our patients have had annual screening for screening for depression, screening for tobacco use, and screening for unhealthy alcohol use. For concerning screenings had a discussion with the patient, provided patient education, and recommended follow-up with primary care provider when appropriate. If patient noted with a risk of falling, they received education on strength, gait, and balance training to prevent future risk of falling. Portions of this note may have been carried over from the previous visit and updated as appropriate. Please note this office utilizes paper charting in addition to the electronic medical record. A list of current medications, vitals, and PMH is available there as the clinical staff outside of myself do not have access to [employer] charting during the clinic day operations. As part of providing quality comprehensive care the current medications, vitals, and PMH were reviewed in the paper chart. Assessment and Plan Assessment and Plan (1) Chronic left hip pain: (2) Greater trochanteric bursitis of left hip: (3) Lumbar spondylosis: (4) Myalgia, other site: (5) Lumbar radiculopathy: Plan update lumbar xray with flexion update left hip xray to assess chronic left hip pain left GTB injection with Dr Manrique in office change meloxicam 7.5mg BID PRN pain take with food. risks vs benefits reviewed. avoid OTC nsaids start baclofen 5-10mg BID PRN pain/spasms
== END 2024-09-11 07:54 | disposition home or self-care (01) ==
PROVIDERS: Visit Provider Nurse Practitioner
DX: M25.552 Pain in left hip (principal); M70.62 Trochanteric bursitis, left hip; M47.816 Spondylosis without myelopathy or radiculopathy, lumbar region; M79.18 Myalgia, other site; M54.16 Radiculopathy, lumbar region
CPT/HCPCS: G0463

== ENCOUNTER 2024-09-17 07:20 | Outpatient (OUT) | payer OTHER, SELFPAY ==
--- OUTSIDE RECORDS SUMMARY | 2024-09-17 07:30 | XMS_ITS | CCD ---
Author Organization [facility] Care Team Providers Care Manager Play Name Role Phone DR PETER AHUMADA Primary Care Unavailable REZA, DR CHETAN Orellana Admitting Unavailable REZA, DR CHETAN Orellana Consulting Unavailable REZA, DR CHETAN Orellana Attending Unavailable Luz Marina Hernandez Consulting Unavailable Peter Ahumada DO Primary Care Provider Peter Ahumada Unavailable Blake, DO Green Primary Care Provider Blake, DO Green Attending Provider Acs, DO Green Primary Care Provider [phone] Blake, DO Green Attending Provider Acs, DO Green Primary Care Provider Blake, DO Green Attending Provider [phone] [facility], [facility] Alba E Emergency Provider Severo ([facility] [place] DELIA Orellana Attending Provider [phone] Blake, DO Green Primary Care Provider [phone] Acs, DO Peter Attending Provider Kuns, DO Peter Primary Care Provider [phone] Acs, DO Peter Attending Provider [phone] Kuns, DO Peter Primary Care Provider [phone] Acs, DO Peter Attending Provider Kuns, DO Peter Primary Care Provider Blake, DO Green Referring Provider Self, Referral Attending Provider Unavailable MD Igor Rudd Emergency Provider Kuns, DO Peter Attending Provider [phone] Itzrk, DO Alber Attending Provider DO Chas Meza Attending Provider [phone] Kuns, DO Peter Primary Care Provider [phone] Kuns DO, Peter P Primary Care Provider [phone] Kuns, DO Peter Primary Care Provider Kuns, DO Peter Attending Provider [phone] JEAN CARLOS Martinez Attending Provider [phone] Peter Auhmada MD P Primary Care Provider [phone] Kuns DO, Peter Primary Care Provider Kuns DO, Peter Attending Provider Yoli DPRobert Ascencio Attending Provider [phone] Itzkowitz, Alber Admitting Unavailable Itzkowitz, Alber Attending Unavailable Kuns, Peter Primary Care Unavailable Kuns, Peter Primary Care Unavailable Elbert Mezain A Admitting Unavailable Chas Meza Attending Unavailable Kuns, Peter Primary Care Unavailable Chas Meaz A Attending Unavailable Elbert Mezain A Admitting Unavailable Kuns, Peter Admitting Unavailable Kuns, Peter Primary Care Unavailable Kuns, Peter Attending Unavailable Kuns, Peter Primary Care Unavailable Itzkowitz, Alber Attending Unavailable Itzkowitz, Alber Admitting Unavailable Igor Rudd Attending Unavailable Kuns, Peter Primary Care Unavailable Igor Rudd Admitting Unavailable Kuns, Peter Primary Care Unavailable Kuns, Peter Attending Unavailable Kuns, Peter Admitting Unavailable Kuns, Peter Primary Care Unavailable Itzkowitz, Alber Attending Unavailable Itzkowitz, Alber Admitting Unavailable Kuns, Peter Primary Care Unavailable Robert Martinez Admitting Unavailable Robert Martinez Attending Unavailable Acs, Peter Primary Care Unavailable Robert Martinez Attending Unavailable Robert Martinez Admitting Unavailable Kuns, Peter Primary Care Unavailable Robert Martinez Attending Unavailable Robert Martinez Admitting Unavailable Peter Ahumada Admitting Unavailable Peter Ahumada Primary Care Unavailable Peter Ahumada Attending Unavailable Peter Ahumada Admitting Unavailable AcsPeter Primary Care Unavailable Acs, Peter Attending Unavailable Self, Referral Attending Unavailable Peter Ahumada Primary Care Unavailable Self, Referral Admitting Unavailable AcsTerryan Referring Unavailable Acs, Peter Admitting Unavailable Blake, Peter Primary Care Unavailable Peter Ahumada Attending Unavailable Burton DAO, Christos Masters Attending Unavailable Burton DAO, Christos Masters Attending Unavailable Peter Ahumada DO Primary Care Provider [phone] Robert Martinez DPM Attending Provider ITZCESAR WOODRIC H Attending Unavailable ITZKOYAHIRTZ, ALBER H Attending Unavailable ITZKOYAHIRTZ, ALBER H Attending Unavailable ITZKOSYDNI, ALBER H Attending Unavailable ITZKOSYDNI, ALBER H Attending Unavailable RAHUL CASTILLO Attending Unavailable ROBERT MARTINEZ Referring Unavailable Allergies Allergy Classification Reported Allergen(s) Allergy Type Date of Onset Reaction(s) Facility (9 sources) Indomethacin Drug Allergy 8 [facility] (12 sources) benzonatate Drug Allergy 4 [facility] (4 sources) benzonatate Drug Allergy 3 GI intolerance [facility] Work Phone: (1 source) benzonatate Drug Allergy [address] [place] [address] Repository (1 source) Indomethacin Drug Allergy [address] [place] [address] Repository Medications Current Medications Medication Drug Class(es) Dates Sig (Normalized) Sig (Original) acetaminophen 325 mg / HYDROcodone bitartrate 5 mg oral tablet (20 sources) Opioid Agonist Start: 12-31-2023 End: 02-13-2024 take 1 tablet by mouth every four to six hours as needed for pain HYDROcodone-aceta minophen ([place]) 5-325 MG tablet TAKE 1 TABLET BY MOUTH EVERY 4-6 HOURS NEEDED FOR PAIN FOR 7 DAYS 12/31/2023 Active Start: 12-19-2023 End: 12-19-2023 take 1 tablet [...] six hours as needed for pain Hydrocodone-Acetaminophen ([place]) 5-325 mg tablet Discontinued 2 TAB PO EVERY 4-6 HOURS as needed for pain April 23, 2017 11:00pm March 26, 2018 8:04am [id number] 200 actuat albuterol 0.09 mg/actuat metered dose [...] esomeprazole 40 mg delayed release oral capsule (6 sources) Proton Pump Inhibitor Start: 06-10-2024 take [...] 1 tablet by yoana th once daily. ibuprofen 800 mg oral tablet (20 sources) Nonsteroidal Anti-inflammatory Drug Start: 3 End: take 1 tablet by mouth three times daily at mealtime as needed ibuprofen 800 MG tablet TAKE 1 TABLET BY MOUTH THREE TIMES A DAY WITH FOOD OR MILK NEEDED 10/20/2022 Active Start: 03-12-2020 End: 12-17-2023 take 1 tablet [...] 25, 2018 11:00pm March 12, 2020 7:22pm levothyroxine sodium 0.088 mg oral tablet (20 sources) l-Thyroxine Start: 09-11-2023 End: 06-10-2024 take 1 tablet by mouth once daily in the morning levothyroxine (Synthroid, Levoxyl) 88 MCG tablet TAKE 1 TABLET BY MOUTH EVERY DAY IN THE MORNING ON EMPTY STOMACH FOR 90 DAYS 09/11/2023 Active Start: 03-21-2023 take 1 tablet by [...] Take 75 mcg by mouth once daily. Multiple Vitamin (multivitamin) tablet (4 sources) take 1 tablet by mouth in the morning Multiple Vitamin (multivitamin) tablet Take 1 tablet by mouth in the morning. Active Multivitamin (Daily Multi-Vitamin) tablet (18 sources) Start: 12-19-2023 take 1 tablet by [...] Multivitamin With Minerals (Hair,Skin And Nails) tablet (17 sources) Start: 03-06-2024 take 1 tablet by [...] PO Every morning January 15, 2024 12:00am omeprazole 40 mg delayed release oral capsule (20 sources) Proton Pump Inhibitor Start: 03-31-2020 End: 03-14-2024 omeprazole (PriLOSEC) [address] capsule TAKE 1 CAPSULE BY MOUTH EVERY DAY 30 MINUTES BEFORE MORNING MEAL 12/19/2022 Active Comment on above: TAKE 1 CAPSULE BY MO [facility] EVERY DAY 30 MINUTES BEFORE MORNING MEAL ProAir HFA 108 (90 Base) MCG/ACT (11 [...] Mar, Active probiotic (17 sources) probiotic Active traMADol hydrochloride 50 mg oral tablet (20 sources) Opioid Agonist Start: 06-08-2023 End: 01-15-2024 take 1 tablet by mouth four times daily as needed traMADol (Ultram) 50 MG tablet TAKE 1 TABLET BY MOUTH FOUR TIMES A DAY NEEDED 06/08/2023 Active Start: 02-15-2021 take 1 tablet by yoana th every six hours traMADol HCl 50 MG 1 tablet as needed Orally QID prn Jan, Active Vitamin D (Cholecalciferol) 1000 UNIT (17 sources) take 1 capsule by mouth once daily Vitamin D (Cholecalciferol) 1000 UNIT [...] 30, 2018 11:02pm acetaminophen 325 mg / oxyCODONE hydrochloride 5 [...] 250 mg tablet Discontinued 0 PO .COMPLEX 6 November 29, 2023 11:00pm December 17, 2023 [...] 500 MG PO Four times daily 40 10 February 07, 2021 11:00pm November 01, 2022 9:30am cholecalciferol 0.025 mg oral capsule (18 sources) Vitamin D Start: 12-19-2023 End: 12-27-2023 [...] Orally Once a day prn Oct, Active Lactobacillus Combination No.4 (Probiotic) 3 billion cell [...] 50 Plus Probiotic) 4 billion cell capsule (18 sources) Start: 12-19-2023 End: 12-27-2023 Lactobacillus Combination No .9 (Adult 50 Plus Probiotic) 4 billion cell capsule Discontinued PO December 18, 2023 11:00pm December 27, 2023 1:17pm Start: 12-19-2023 End: 12-27-2023 Lactobacillus Combination No .9 (Adult 50 Plus Probiotic) 4 billion cell capsule Discontinued PO December 19, 2023 12:00am December 27, 2023 2:17pm ondansetron 4 mg disintegrating oral tablet (20 sources) Serotonin-3 Receptor Antagonist Start: 02-08-2021 End: 11-01-2022 take 1 tablet by mouth every six hours as needed for nausea and vomiting Ondansetron 4 mg tablet,disintegrating Discontinued 4 MG PO Q6H as needed for nausea and vomiting February 07, 2021 11:00pm November 01, 2022 9:30am phenazopyridine hydrochloride 200 mg oral tablet (20 sources) Start: 02-08-2021 End: 11-01-2022 take 1 tablet by mouth three times daily as needed for pain Phenazopyridine (Pyridium) 200 mg tablet Discontinued 200 MG PO Three times daily as needed for pain February 07, 2021 11:00pm November 01, 2022 9:30am administer with a full glass of water with each meal microencapsulated potassium chloride 10 meq extended release oral tablet (20 sources) Start: 12-19-2023 End: 12-27-2023 take 1 tablet [...] five days Orally as directed May, Active Problems Active Problems Problem Classification Problem Date Documented Da te Episodic/Chronic Acute bronchitis (2 sources) Acute bronchitis, unspecified Episodic Allergic reactions (17 sources) Hand eczema; Translations: [Dermatitis, unspecified] Episodic Asthma (19 sources) Unspecified asthma, uncomplicated; Translations: [Asthma] Onset: 1 12-25-2023 Chronic Diabetes mellitus without complication (20 sources) Hyperglycemia, unspecified; Translations: [Prediabetes] Onset: Episodic Disorders of lipid metabolism (20 sources) [...] cystic mastopathy of unspecified breast] 02-07-2018 Chronic Nonspecific chest pain (20 sources) Chest pain; Translations: [Chest pain, unspecified] Onset: 2 Resolved: 2 Episodic Open wounds of extremities (20 sources) Laceration of left knee; Translations: [Laceration without foreign body, left knee, initial encounter] 12-17-2023 Episodic Other aftercare (1 source) 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; Translations: [OTH EVALUATOR CURRENT DRUG THERAPY] Onset: 1 Episodic Other [...] of branchial cleft] Chronic 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; 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, fistula and cyst of branchial cleft] Onset: 3 01-25-2023 Chronic Other connective tissue disease (5 sources) Bilateral plantar fasciitis; Translations: [Plantar fascial fibromatosis] Episodic Other connective tissue disease (2 sources) Foot pain; Translations: [Pain in right foot] [...] injuries and conditions due to external causes (19 sources) Contusion of multiple sites; Translations: [Unspecified [...] of breath] Episodic Other nervous system disorders (4 sources) Chronic pain; Translations: [Other chronic pain] Onset: 3 01-25-2023 Chronic Other non-traumatic joint disorders (5 sources) Swollen ankle region; Translations: [Effusion, right ankle] Episodic Other non-traumatic joint disorders (5 sources) Effusion of joint of left ankle; Translations: [Effusion, left ankle] Episodic Other non-traumatic joint disorders (1 source) Pain in left hip Episodic Other non-traumatic joint disorders (18 sources) Pain in elbow; Translations: [Pain in [...] gain; Translations: [Abnormal weight gain] Episodic Other nutritional; endocrine; and metabolic disorders (1 source) Overweight in adulthood with body mass index of 25 or more but less than 30; Translations: [Body mass index (BMI) 27.0-27.9, adult] 09-09-2024 Episodic Other nutritional; endocrine; and metabolic disorders (1 source) Body mass index (BMI) 27.0-27.9, adult; Translations: [Body Mass Index 27.0-27.9, adult] 09-09-2024 Episodic Other skin disorders (5 sources) Mass of neck; Translations: [Localized swelling, mass and lump, neck] Episodic Other skin disorders (17 sources) Epidermoid cyst; Translations: [Epidermal cyst] Episodic Other skin disorders (4 sources) Senile hyperkeratosis; Translations: [Other seborrheic keratosis] Episodic Other skin disorders (13 sources) Seborrheic keratosis; Translations: [Other seborrheic keratosis] Episodic Other skin disorders (1 source) Other seborrheic keratosis Episodic Other skin disorders (2 sources) Mass of body structure 09-09-2024 Episodic Other skin disorders (4 sources) Sebaceous cyst of skin; Translations: [Sebaceous cyst] Onset: 5 09-10-2024 Episodic Other upper respiratory disease (5 sources) [...] Date Documented Da te Episodic/Chronic Abdominal hernia (20 sources) Ventral hernia without obstruction or gangrene; Translations: [Umbilical hernia] Onset: 01-25-2023 Episodic Abdominal pain (20 sources) Right upper quadrant pain; Translations: [Liver pain] Onset: 02-22-2021 Episodic Nonmalignant breast conditions (20 sources) Cyst of breast; Translations: [Solitary cyst of right breast] Onset: 01-25-2023 02-07-2018 Episodic Other connective tissue disease (7 sources) Pain in right foot; Translations: [Pain in right foot] Onset: 11-26-2017 11-26-2017 Episodic Other connective tissue disease (1 source) Pain in left arm; Translations: [Arm pain, left M79.602] Onset: 04-20-2021 Resolved: 04-20-2021 Episodic Other connective tissue disease (4 sources) Peroneal tendinitis; Translations: [Peroneal tendinitis, unspecified [...] conditions (not mental disorders or infectious disease) (13 sources) Mammography abnormal; Translations: [Other abnormal and inconclusive findings on diagnostic imaging of breast] Onset: 01-25-2023 Episodic Other skin disorders (1 source) Other hypertrophic disorders of the skin Onset: 10-17-2021 Resolved: 10-17-2021 Episodic Results Test Name Value Interpretation Reference Range Facility MR ankle LT wo con 024 MR ankle LT wo con [facility] [place] [place] [address] MRI Report Signed Patient: Darling Khanna MR#: [id number] : 1980 Acct:[id number] Age/Sex: 44 / F ADM Date: 06/04/24 Loc: MR Room: Type: [facility] Attending Dr: Robert Martinez DPM, MS Copies [...] M.D.06/04/2024 10:29 PM Dictation Location: [place] [address] Transcribed By: [facility] 06/04/242228 Dictated By: Osmani Stovall DO 06/04/242217 Signed By: 06/04/242228 Normal [facility] Magnetic resonance imaging r eportOrdered By: Osmani Stovall on 06-04-2024 Study report [facility] Main [place] [address] [place] [address] MRI Report Signed Patient: Darling Khanna MR#: [id number] : 1980 Acct:[id number] Age/Sex: 44 / F ADM Date: 4 Loc: Room: Type: [facility] Attending Dr: Robert Martinez DPM MS Copies to: Robert Martinez DPM MS~ Ordering Provider: Roebrt Martinez DPM, MS Date of Service: 06/04/24 [...] M.D.06/04/2024 10:29 PM Dictation Location: [place] [address] Transcribed By: [facility] 06/04/242228 Dictated By: Osmani Stovall DO 06/04/242217 Signed By: 06/04/242228 [facility] X-ray reportOrdered By: Vikas Stovall on 06-04-2024 Study report [facility] [place] [address] XRay Report Signed Patient: Darling Khanna MR#: [id number] : 1980 Acct:[id number] Age/Sex: 44 / F ADM Date: 4 Loc: Room: Type: [facility] Attending Dr: Robert Martinez DPM, MS Copies [...] Osmani Stovall M.D.06/04/2024 11:51 PM Dictation Location: [facility] Transcribed By: [facility] 06/04/242350 Dictated By: Osmani Stovall DO 06/04/242350 Signed By: 06/04/242350 [facility] XR pre/post mri xrayon 06-04 XR pre/post mri xray [facility] Main [address] [address] XRay Report Signed Patient: Darling Khanna MR#: [id number] : 1980 Acct:[id number] Age/Sex: 44 / F ADM Date: 06/04/24 Loc: Room: Type: [facility] CLI Attending Dr: Robert Martinez DPM, MS [...] Osmani Stovall M.D.06/04/2024 11:51 PM Dictation Location: [place] [address] Transcribed By: [facility] 06/04/242350 Dictated By: Osmani Stovall DO 06/04/242350 Signed By: 06/04/242350 Normal [facility] EMG 2 Extremitieson 05-22-20 24 S1 radiculopathy, le ft, mild [facility] 11-12 Nerveson 4 S1 radiculopathy, le ft, mild [facility] [place] upper GI w air*on 024 [place] upper GI w air* [facility] [place] [address] Fluoroscopy Report Signed Patient: Darling Khanna MR#: [id number] 1872 : 1980 Acct:[id number] Age/Sex: 43 / F ADM Date: 03/12/24 Loc: Room: Type: [facility] CLI Attending Dr: Peter Ahumada DO [...] Osmani Stovall M.D.03/12/2024 2:09 PM Dictation Location: [place] [address] Transcribed By: [facility] 03/12/24 1409 Dictated By: Osmani Stovall DO 03/12/24 1040 Signed By: 03/12/24 1409 Normal [facility] US gall bladderon 03-12-2024 US gall bladder [facility] [place] [address] [place] [address] Ultrasound Report Signed Patient: Darling Khanna MR#: [id number] : 1980 Acct:[id number] Age/Sex: 43 / F ADM Date: 03/12/24 Loc: Room: Type: [facility] Attending Dr: Peter Ahumada DO Ordering Provider: [...] Osmani Stovall M.D.03/12/2024 10:39 AM Dictation Location: [place] [address] Tech: Nellie Solis Transcribed By: ADIA 03/12/24 1039 Dictated By: Osmani Stovall DO 03/12/24 1036 Signed By: 03/12/24 1039 Normal [facility] A1C with Estimated Average G luon 03-05-2024 Glucose [Mass/Vol] 128 mg/dL Normal [facility] Comment on above: Result Comment: PERF ORMED BY: [facility] [address] [place] [id number] PATHOLOGIST MOLDING SUPERVISOR ALVIN VIDES M.D. Performed By: #### T SH3, A1C WTH eA, CBC, CMP, LIPID, T4F ####[place] [address] [place] [address] [place] Alanine aminotransferase [En zymatic activity/volume] in Serum or PlasmaOrdered By: Peter Ahumada on 03-05-2024 ALT [Catalytic activity/Vol] 10 U/L Normal 7-52 [facility] Comment on above: Performed By: #### T SH3, A1C WTH eA, CBC, CMP, LIPID, T4F ####[place] [address] [place] [address] [place] Albumin [Mass/volume] in Ser um or Plasma by Bromocresol green (BCG) dye binding methoOrdered By: Peter Ahumada on 03-05-2024 Albumin BCG dye [Mass/Vol] 4.0 g/dL 3.5-5.7 [facility] Alkaline phosphatase [Enzyma tic activity/volume] in Serum or PlasmaOrdered By: Peter Ahumada on 03-05-2024 ALP [Catalytic activity/Vol] 46 U/L Normal 34-104 [facility] Comment on above: Performed By: #### T SH3, A1C WTH eA, CBC, CMP, LIPID, T4F ####[place] [address] [place] [address] [place] Aspartate aminotransferase [ Enzymatic activity/volume] in Serum or PlasmaOrdered By: Peter Ahumada on 03-05-2024 AST [Catalytic activity/Vol] 20 U/L Normal 13-39 [facility] Comment on above: Performed By: #### T SH3, A1C WTH eA, CBC, CMP, LIPID, T4F ####[place] [address] [address] Automated basophil %Ordered By: Peter Ahumada on 03-05-2024 Basophils/100 WBC (Bld) 0.7 % Normal . [facility] Comment on above: Performed By: #### T SH3, A1C WTH eA, CBC, CMP, LIPID, T4F ####[address] Automated basophil countOrde red By: Peter Ahumada on 03-05-2024 Basophils (Bld) [#/Vol] 0.0 10*3/uL Normal 0.0-0.2 [facility] Comment on above: Result Comment: PERF ORMED BY: [facility] [address] [place] [address] PATHOLOGIST MOLDING SUPERVISOR ALVIN VIDES M.D. Performed By: #### T SH3, A1C WTH eA, CBC, CMP, LIPID, T4F ####[address] Automated blood monocyte cou ntOrdered By: Peter Ahumada on 03-05-2024 Monocytes (Bld) [#/Vol] 0.5 10*3/uL Normal 0.0-0.8 [facility] Comment on above: Performed By: #### T SH3, A1C WTH eA, CBC, CMP, LIPID, T4F ####[place] [id number] [facility] Automated eosinophil %Ordere d By: Peter Ahumada on 03-05-2024 Eosinophils/100 WBC (Bld) 2.2 % Normal . [facility] Comment on above: Performed By: #### T SH3, A1C WTH eA, CBC, CMP, LIPID, T4F ####[place] [id number] [facility] Automated eosinophil countOr dered By: Peter Ahumada on 03-05-2024 Eosinophils (Bld) [#/Vol] 0.1 10*3/uL Normal 0.0-0.45 [facility] Comment on above: Performed By: #### T SH3, A1C WTH eA, CBC, CMP, LIPID, T4F ####[place] [address] [place] [address] [facility] Automated monocyte %Ordered By: Peter Ahumada on 03-05-2024 Monocytes/100 WBC (Bld) 7.5 % Normal . [facility] Comment on above: Performed By: #### T SH3, A1C WTH eA, CBC, CMP, LIPID, T4F ####[place] [id number] [facility] Automated neutrophil %Ordere d By: Peter Ahumada on 03-05-2024 Neutrophils/100 WBC (Bld) 53.3 % Normal . [facility] Comment on above: Performed By: #### T SH3, A1C WTH eA, CBC, CMP, LIPID, T4F ####[address] Bilirubin.total [Mass/volume ] in Serum or PlasmaOrdered By: Peter Ahumada on 03-05-2024 Bilirubin [Mass/Vol] 0.4 mg/dL Normal 0.3-1.0 [facility] Comment on above: Performed By: #### T SH3, A1C WTH eA, CBC, CMP, LIPID, T4F ####[place] [id number] [facility] Calcium [Mass/volume] in Ser um or PlasmaOrdered By: Peter Ahumada on 03-05-2024 Calcium [Mass/Vol] 8.9 mg/dL Normal 8.6-10.3 [facility] Comment on above: Performed By: #### T SH3, A1C WTH eA, CBC, CMP, LIPID, T4F ####[place] [id number] [facility] Carbon dioxide, total [Moles /volume] in Serum or PlasmaOrdered By: Peter Ahumada on 03-05-2024 CO2 [Moles/Vol] 28.7 mmol/L Normal 21.0-31.0 [facility] Comment on above: Performed By: #### T SH3, A1C WT eA, CBC, CMP, LIPID, T4F ####[facility] [id number] [place] [address] [facility] Chloride [Moles/volume] in S renetta or PlasmaOrdered By: Peter Ahumada on 03-05-2024 Chloride [Moles/Vol] 103 mmol/L Normal 98-107 [facility] Comment on above: Performed By: #### T SH3, A1C WTH eA, CBC, CMP, LIPID, T4F ####[facility] [address] [place] [address] [facility] Cholesterol [Mass/volume] in Serum or PlasmaOrdered By: Peter Ahumada on 03-05-2024 Cholesterol [Mass/Vol] 166 mg/dL Normal 140-200 [facility] Comment on above: Chol less than 200 m g/dl low riskChol 201-239 mg/dl borderline riskChol 240 mg/dl and greater high risk Result Comment: Chol less than 200 mg/dl low risk Chol 201-239 mg/dl borderline risk Chol 240 mg/dl and greater high risk Performed By: #### T SH3, A1C WTH eA, CBC, CMP, LIPID, T4F ####[facility] [id number] [place] [id number] [facility] Cholesterol in LDL Calc [Mas s/Vol]Ordered By: Peter Ahumada on 03-05-2024 Cholesterol in LDL [Mass/Vol] 76 mg/dL 0-100 [facility] Comment on above: LDL ATP III CLASSIFI CATIONLDL less than 100 mg/dL OptimalLDL 100-129 mg/dL Near or above optimalLDL 130-159 mg/dL Borderline highLDL 160-189 mg/dL HighLDL greater than 189 mg/dL Very high Cholesterol in VLDL Calc [Ma ss/Vol]Ordered By: Peter Ahumada on 03-05-2024 Cholesterol in VLDL [Mass/Vol] 40 mg/dL [facility] Complete Blood Count Auto Di ffon 03-05-2024 Mean Corpuscular HGB Conc 33.6 g/dL Normal 32.0-35.0 [facility] Comment on above: Performed By: #### T SH3, A1C WTH eA, CBC, CMP, LIPID, T4F ####[address] NRBC% 0.1 /100{WBC} Normal 0-0.5 [facility] [facility] Comment on above: Performed By: #### T SH3, A1C WTH eA, CBC, CMP, LIPID, T4F ####[place] [id number] [facility] Comprehensive Metabolic Pane matty 03-05-2024 Albumin [Mass/Vol] 4.0 g/dL Normal 3.5-5.7 [facility] Comment on above: Performed By: #### T SH3, A1C WTH eA, CBC, CMP, LIPID, T4F ####[address] GFR/1.73 sq M.predicted MDRD (S/P/Bld) [Vol rate/Area] mL/min/{1.73_m2} Normal [facility] Comment on above: Performed By: #### T SH3, A1C WTH eA, CBC, CMP, LIPID, T4F ####[address] Creatinine [Mass/volume] in Serum or PlasmaOrdered By: Peter Ahumada on 03-05-2024 Creatinine [Mass/Vol] 0.63 mg/dL Normal 0.60-1.20 [facility] Comment on above: Performed By: #### T SH3, A1C WTH eA, CBC, CMP, LIPID, T4F ####[place] [id number] [facility] Erythrocyte distribution wid th [Ratio] by Automated countOrdered By: Peter Ahumada on 03-05-2024 Erythrocyte distribution width (RBC) [Ratio] 13.4 % Normal 11.9-15.3 [facility] Comment on above: Performed By: #### T SH3, A1C WTH eA, CBC, CMP, LIPID, T4F ####[place] [id number] [facility] Erythrocytes [#/volume] in B lood by Automated countOrdered By: Peter Ahumada on 03-05-2024 RBC (Bld) [#/Vol] 4.44 10*6/uL Normal 3.60-5.00 [facility] Comment on above: Performed By: #### T SH3, A1C WTH eA, CBC, CMP, LIPID, T4F ####[facility] [place] [address] [facility] Glucose [Mass/volume] in Ser um or PlasmaOrdered By: Peter Ahumada on 03-05-2024 Glucose [Mass/Vol] 96 mg/dL Normal 70-100 [facility] Comment on above: ADA recommended refe rence rangeRandom Glucose Reference Range is dependent on time and content of last meal. Glucose of more than 200 mg/dL in a nonstressed, ambulatory subject supports the diagnosis of Diabetes Mellitus. Result Comment: [place] om Glucose Reference Range is dependent on time and content of last meal. Glucose of more than 200 mg/dL in a nonstressed, ambulatory subject supports the diagnosis of Diabetes Mellitus. ADA recommended reference range Performed By: #### T SH3, A1C WTH eA, CBC, CMP, LIPID, T4F ####[facility] [place] [address] [facility] Glucose mean value [Mass/vol ume] in Blood Estimated from glycated hemoglobinOrdered By: Peter Ahumada on 03-05-2024 Average glucose Estimated from glycated hemoglobin (Bld) [Mass/Vol] 128 mg/dL [facility] Hematocrit [Volume Fraction] of Blood by Automated countOrdered By: Peter Ahumada on 03-05-2024 Hematocrit (Bld) [Volume fraction] 37.2 % Normal 34.0-46.4 [facility] Comment on above: Performed By: #### T SH3, A1C WTH eA, CBC, CMP, LIPID, T4F ####[facility] [place] [address] [facility] Hemoglobin A1c percentageOrd ered By: Peter Ahumada on 03-05-2024 HbA1c (Bld) [Mass fraction] 6.1 % High 4.3-5.6 [facility] Comment on above: Increased risk for d iabetes: 5.7 - 6.4diabetes: >6.4glycemic control for adults with diabetes: <7.0 Result Comment: Incr eased risk for diabetes: 5.7 - 6.4 diabetes: >6.4 glycemic control for adults with diabetes: <7.0 Performed By: #### T SH3, A1C WTH eA, CBC, CMP, LIPID, T4F ####[facility] [place] [id number] [facility] Hemoglobin [Mass/volume] in BloodOrdered By: Peter Ahumada on 03-05-2024 Hemoglobin (Bld) [Mass/Vol] 12.5 g/dL Normal 11.8-15.4 [facility] Comment on above: Performed By: #### T SH3, A1C WTH eA, CBC, CMP, LIPID, T4F ####[place] [address] [place] [address] [facility] Leukocytes [#/volume] correc bryan for nucleated erythrocytes in Blood by Automated counOrdered By: Peter Ahmuada on 03-05-2024 WBC corrected for nucl RBC Auto (Bld) [#/Vol] 6.2 10*3/uL 3.8-11.6 [facility] Leukocytes [#/volume] in Blo od by Automated countOrdered By: Peter Ahumada on 03-05-2024 WBC (Bld) [#/Vol] 6.2 10*3/uL Normal 3.8-11.6 [facility] Comment on above: Performed By: #### T SH3, A1C WTH eA, CBC, CMP, LIPID, T4F ####[facility] [place] [address] [facility] Lipid Panelon 03-05-2024 LDL Cholesterol,Calculated 76 mg/dL Normal 0-100 [facility] Comment on above: Result Comment: LDL ATP III CLASSIFICATION LDL less than 100 mg/dL Optimal LDL 100-129 mg/dL Near or above optimal LDL 130-159 mg/dL Borderline high LDL 160-189 mg/dL High LDL greater than 189 mg/dL Very high Performed By: #### T SH3, A1C WTH eA, CBC, CMP, LIPID, T4F ####[place] [address] [place] [id number] [facility] Triglyceride w/Reflex 202 mg/dL High 0-149 [facility] Comment on above: Result Comment: TRIG ATP III CLASSIFICATION TRIG less than 150 mg/dL Normal TRIG 150-199 mg/dL Borderline high TRIG 200-500 mg/dL High TRIG greater than 500 mg/dL Very high Standard traceable to the Center for Disease Conrtrol and Prevention (CDC) test method. Performed By: #### T SH3, A1C WTH eA, CBC, CMP, LIPID, T4F ####[place] [address] [place] [id number] [facility] VLDL CHOLESTEROL 40 mg/dL Normal [facility] Comment on above: Performed By: #### T SH3, A1C WTH eA, CBC, CMP, LIPID, T4F ####[place] [address] [place] [phone] [facility] Lymphocytes [#/volume] in Bl ood by Automated countOrdered By: Peter Ahumada on 03-05-2024 Lymphocytes (Bld) [#/Vol] 2.2 10*3/uL Normal 1.00-4.8 [facility] Comment on above: Performed By: #### T SH3, A1C WTH eA, CBC, CMP, LIPID, T4F ####[place] [id number] [facility] Lymphocytes/100 leukocytes i n Blood by Automated countOrdered By: Peter Ahumada on 03-05-2024 Lymphocytes/100 WBC (Bld) 36.3 % Normal . [facility] Comment on above: Performed By: #### T SH3, A1C WTH eA, CBC, CMP, LIPID, T4F ####[place] [id number] [facility] MCH [Entitic mass] by Automa bryan countOrdered By: Peter Ahumada on 03-05-2024 MCH (RBC) [Entitic mass] 28.2 pg Normal 24.7-34.3 [facility] Comment on above: Performed By: #### T SH3, A1C WTH eA, CBC, CMP, LIPID, T4F ####[address] [address] [place] MCHC Auto (RBC) [Mass/Vol]Or dered By: Peter Ahumada on 03-05-2024 MCHC (RBC) [Mass/Vol] 33.6 g/dL 32.0-35.0 [facility] MCV [Entitic volume] by Auto mated countOrdered By: Peter Ahumada on 03-05-2024 MCV (RBC) [Entitic vol] 83.8 fL Normal 80-100 [facility] Comment on above: Performed By: #### T SH3, A1C WTH eA, CBC, CMP, LIPID, T4F ####[place] [address] [address] Neutrophils [#/volume] in Bl ood by Automated countOrdered By: Peter Ahumada on 03-05-2024 Neutrophils (Bld) [#/Vol] 3.3 10*3/uL Normal 1.8-7.7 [facility] Comment on above: Performed By: #### T SH3, A1C WT eA, CBC, CMP, LIPID, T4F ####[address] No Panel InformationOrdered By: Peter Ahumada on 03-05-2024 Estimated GFR (CKD-EPI) > 60.0 mL/Min [facility] Creatinine Clearance (Chem N/A [facility] Nucleated erythrocytes [Pres ence] in Blood by Automated countOrdered By: Peter Ahumada on 03-05-2024 Nucleated RBC Auto Ql (Bld) 0.1 /100{WBC} 0-0.5 [facility] Platelet mean volume [Entiti c volume] in Blood by Automated countOrdered By: Peter Ahumada on 03-05-2024 Platelet mean volume (Bld) [Entitic vol] 8.7 fL Normal 6.3-10.7 [facility] Comment on above: Performed By: #### T SH3, A1C WTH eA, CBC, CMP, LIPID, T4F ####[place] [id number] [address] Platelets [#/volume] in Bloo d by Automated countOrdered By: Peter Ahumada on 03-05-2024 Platelets (Bld) [#/Vol] 333 10*3/uL Normal 150-450 [facility] Comment on above: Performed By: #### T SH3, A1C WTH eA, CBC, CMP, LIPID, T4F ####[place] [address] [place] [id number] [facility] Potassium [Moles/volume] in Serum or PlasmaOrdered By: Peter Ahumada on 03-05-2024 Potassium [Moles/Vol] 3.8 mmol/L Normal 3.5-5.1 [facility] Comment on above: Performed By: #### T SH3, A1C WT eA, CBC, CMP, LIPID, T4F ####[place] [address] [address] Protein [Mass/volume] in Ser um or PlasmaOrdered By: Peter Ahumada on 03-05-2024 Protein [Mass/Vol] 6.7 g/dL Normal 6.4-8.9 [facility] Comment on above: Performed By: #### T SH3, A1C WTH eA, CBC, CMP, LIPID, T4F ####[place] [address] Serum globulin measurement b y calculation (mass/volume)Ordered By: Peter Ahumada on 03-05-2024 Globulin (S) [Mass/Vol] 2.7 g/dL [facility] Comment on above: Performed By: #### T SH3, A1C WTH eA, CBC, CMP, LIPID, T4F ####[place] [address] [place] [id number] [facility] Serum or plasma albumin/glob ulin mass ratioOrdered By: Peter Ahumada on 03-05-2024 Albumin/Globulin [Mass ratio] 1.5 {ratio} [facility] Comment on above: Performed By: #### T SH3, A1C WTH eA, CBC, CMP, LIPID, T4F ####[place] [id number] [facility] Serum or plasma anion gap de terminationOrdered By: Peter Ahumada on 03-05-2024 Anion gap [Moles/Vol] 11.1 mmol/L Normal 6.0-15.0 [facility] Comment on above: Performed By: #### T SH3, A1C WT eA, CBC, CMP, LIPID, T4F ####[place] [address] Serum or plasma high density lipoprotein (HDL) cholesterol measurementOrdered By: Peter Ahumada on 03-05-2024 Cholesterol in HDL [Mass/Vol] 50 mg/dL Normal 23-92 [facility] Comment on above: HDL CHOL ATP-III CLA SSIFICATION Cardiovascular RiskHDL > or equal to 60 mg/dL LOWHDL < 40 mg/dL HIGH Result Comment: HDL CHOL ATP-III CLASSIFICATION Cardiovascular Risk HDL > or equal to 60 mg/dL LOW HDL < 40 mg/dL HIGH Performed By: #### T SH3, A1C WTH eA, CBC, CMP, LIPID, T4F ####[address] Serum or plasma total choles terol/high density lipoprotein (HDL) cholesterol mass ratOrdered By: Peter Ahumada on 03-05-2024 Cholesterol.total/Chol esterol in HDL [Mass ratio] 3.3 {ratio} Normal <5.0 [facility] Comment on above: Performed By: #### T SH3, A1C WTH eA, CBC, CMP, LIPID, T4F ####[address] Sodium [Moles/volume] in Ser um or PlasmaOrdered By: Peter Ahumada on 03-05-2024 Sodium [Moles/Vol] 139 mmol/L Normal 136-145 [facility] Comment on above: Performed By: #### T SH3, A1C WT eA, CBC, CMP, LIPID, T4F ####[address] Thyrotropin [Units/volume] i n Serum or PlasmaOrdered By: Peter Ahumada on 03-05-2024 TSH Qn 0.29 m[IU]/L Low 0.45-5.33 [facility] Comment on above: Result Comment: PERF ORMED BY: [facility] [address] [place] [id number] PATHOLOGIST MOLDING SUPERVISOR ALVIN VIDES M.D. Performed By: #### T SH3, A1C WT eA, CBC, CMP, LIPID, T4F ####[facility] Hgq[address] [place] [id number] [facility] Thyroxine (T4) free [Mass/vo lume] in Serum or PlasmaOrdered By: Peter Ahumada on 03-05-2024 Free T4 [Mass/Vol] 0.81 ng/dL Normal 0.61-1.12 [facility] Comment on above: Performed By: #### T SH3, A1C WT eA, CBC, CMP, LIPID, T4F ####[place] [address] [place] [id number] [facility] Triglyceride [Mass/volume] i n Serum or PlasmaOrdered By: Peter Ahumada on 03-05-2024 Triglyceride [Mass/Vol] 202 mg/dL High 0-149 [facility] Comment on above: TRIG ATP III CLASSIF ICATIONTRIG less than 150 mg/dL NormalTRIG 150-199 mg/dL Borderline highTRIG 200-500 mg/dL High TRIG greater than 500 mg/dL Very highStandard traceable to the Center for Disease Conrtrol and Prevention (CDC) test method. Urea nitrogen [Mass/volume] in Serum or PlasmaOrdered By: Peter Ahumada on 03-05-2024 Urea nitrogen [Mass/Vol] 11 mg/dL Normal 7-25 [facility] Comment on above: Performed By: #### T SH3, A1C WT eA, CBC, CMP, LIPID, T4F ####[facility] [place] [address] [facility] XR elbow RT 2Von 02-13-2024 XR elbow RT 2V [facility] [address] [facility] [address] [place] [id number] XRay Report Signed Patient: Darling Khanna MR#: [id number] 1872 : 1980 Acct:[id number] Age/Sex: 43 / F ADM Date: 02/13/24 Loc: SOXD Room: Type: REG CLI Attending Dr: Chas Meza DO Copies to: [...] Osmani Stovall M.D.02/13/2024 4:07 PM Dictation Location: [place] [address] Transcribed By: [facility] 02/13/24 160 Dictated By: Osmani Stovall DO 02/13/24 160 Signed By: 02/13/24 1607 Normal [facility] HCG ( test) IA.ez d Ql (U)Ordered By: Rahul Rogers on 01-29-2024 HCG ( test) Ql (U) Negative [facility] HCG,Urineon 01-29-2024 Beta HCG ( test) Ql (U) Negative Normal [facility] Comment on above: Result Comment: PERF ORMED BY: [place] [address] PATHOLOGIST MOLDING SUPERVISOR ALVIN VIDES M.D. Performed By: #### U HCG #### [address] XR elbow RT 2Von 01-14-2024 XR elbow RT 2V [facility] [address] [facility] [address] [place] [address] XRay Report Signed Patient: Darling Khanna MR#: [id number] 1872 : 1980 Acct:[id number] Age/Sex: 43 / F ADM Date: 01/14/24 Loc: [facility] Room: Type: [facility] CLI Attending Dr: Chas Meza DO Copies to: [...] Chetan Ortiz M.D.01/14/2024 3:36 PM Dictation Location: [place] [address] Transcribed By: [facility] 01/14/24 1536 Dictated By: Chetan Ortiz II, MD 01/14/24 1535 Signed By: 01/14/24 1536 Normal [facility] US abdomen limitedon 024 US abdomen limited [facility] [place] [address] Ultrasound Report Signed Patient: Darling Khanna MR#: [id number] 1872 : 1980 Acct:[id number] Age/Sex: 43 / F ADM Date: 12/31/23 Loc: Room: Type: [facility] Attending Dr: Alber Haines DO Ordering Provider: [...] Ayleen Zheng M.D.12/31/2023 12:14 PM Dictation Location: [place] Tech: Nellie Solis Transcribed By: ADIA 12/31/23 1214 Dictated By: Ayleen Zheng MD 12/31/23 1206 Signed By: 12/31/23 1214 Normal [facility] XR knee RT 4V*on 12-28-2023 XR knee RT 4V* [facility] [address] [place] [address] [place] [address] XRay Report Signed Patient: Darling Khanna MR#: [id number] 18[birth year] : 1980 Acct:[id number] Age/Sex: 43 / F ADM Date: 12/28/23 Loc: XD Room: Type: [facility] Attending Dr: Peter Ahumada DO Copies to: Peter Ahumada DO Ordering Provider: Peter Ahumada DO Date of Service: 12/28/23 XR/XR elbow RT min 3V*: Suspicion for fracture ([id number]) XR/XR knee RT 4V*: W19.XXXA - Unspecified [...] Osmani Stovall M.D.12/28/2023 9:38 AM Dictation Location: RADIO-PC-08 Transcribed By: [facility] 12/28/23937 Dictated By: Osmani Stovall DO 12/28/23931 Signed By: 12/28/23937 Normal [facility] XR clavicle RT*on 12-17-2023 XR clavicle RT* [facility] [address] [place] [address] [place] [address] XRay Report Signed Patient: Darling Khanna MR#: [id number] 18[birth year] : 1980 Acct:[id number] Age/Sex: 43 / F ADM Date: 12/17/23 Loc: ER Room: Type: [facility] ER Attending Dr: Copies to: Igor Rudd MD Ordering Provider: Igor Rudd MD Date of Service: 12/17/23 XR/XR clavicle RT*: Fall ([id number]) XR/XR shoulder RT min 2V*: Fall XR [...] Chetan Ortiz M.D.12/17/2023 9:23 AM Dictation Location: RADIO-PC-13 Transcribed By: ADIA 12/17/23922 Dictated By: Chetan Ortiz II, MD 12/17/23918 Signed By: 12/17/23922 Normal [facility] XR forearm RT 2V*on 12-17-19 XR forearm RT 2V* [facility] Main [address] [address] XRay Report Signed Patient: Darling Khanna MR#: [id number] 18[birth year] : 1980 Acct:[id number] Age/Sex: 43 / F ADM Date: 12/17/23 Loc: ER Room: Type: [facility] ER Attending Dr: Copies to: Igor [...] Chetan Ortiz M.D.12/17/2023 9:24 AM Dictation Location: [place] [address] Transcribed By: [facility] 12/17/23923 Dictated By: Chetan Ortiz II, MD 12/17/23922 Signed By: 12/17/23923 Normal [facility] XR knee LT 2Von 12-17-2023 XR knee LT 2V [facility] Main [address] [address] XRay Report Signed Patient: Darling Khanna MR#: [id number] 1870 : 1980 Acct:[id number] Age/Sex: 43 / F ADM Date: 12/17/23 Loc: ER Room: Type: [facility] ER Attending Dr: Copies to: Igor [...] Chetan Ortiz M.D.12/17/2023 9:25 AM Dictation Location: [place] [address] Transcribed By: [facility] 12/17/23924 Dictated By: Chetan Ortiz II, MD 12/17/23923 Signed By: 12/17/23924 Normal [facility] MM screening mammo BI w/CADo n 12-03-2023 MM screening mammo BI w/CAD [facility] [address] [place] [address] [place] [address] Mammography Report Signed Patient: Darling Khanna MR#: [id number] 1870 : 1980 Acct:[id number] Age/Sex: 43 / F ADM Date: 12/03/23 Loc: [facility] Room: Type: [facility] Attending Dr: Referral Self Copies to: Peter Ahumada DO SELF,REFERRAL Ordering Provider: SELF,REFERRAL Date of Service: [...] Chetan Ortiz M.D.12/03/2023 4:13 PM Dictation Location: [facility] Transcribed By: [facility] 12/03/23 1613 Dictated By: Chetan Ortiz II, MD 12/03/23 1607 Signed By: 12/03/23 1613 Normal [facility] Thyrotropin [Units/volume] i n Serum or PlasmaOrdered By: Peter Ahumada on 08-22-2023 TSH Qn 0.15 m[IU]/L Low 0.45-5.33 [facility] Comment on above: Order Comment: Reaso n for Exam Hypothyroidism Result Comment: PERF ORMED BY: [place] [address] PATHOLOGIST MOLDING SUPERVISOR ALVIN VIDES M.D. Performed By: #### T 4F, TSH3 ####[place] [address] [place] [id number] [facility] Thyroxine (T4) free [Mass/vo lume] in Serum or PlasmaOrdered By: Peter Ahumada on 08-22-2023 Free T4 [Mass/Vol] 0.97 ng/dL Normal 0.61-1.12 [facility] Comment on above: Order Comment: Reaso n for Exam Hypothyroidism Performed By: #### T 4F, TSH3 ####[facility] [id number] [place] [id number] [facility] US breast LT limitedon 08-13 US breast LT limited [facility] [place] [address] Ultrasound Report Signed Patient: Darling Khanna MR#: [id number] 18[birth year] : 1980 Acct:[id number] Age/Sex: 43 / F ADM Date: 08/13/23 [facility]: [facility] Room: Type: [facility] Attending Dr: Peter Ahumada DO Ordering Provider: Peter Ahumada DO Date of Service: 08/13/23 US/US breast LT limited: Abnormal mammogram Copies to: Peter Ahumada DO CLINICAL DATA: Six-month follow-up of cysts 11:00 position of the left breast. In the interim, the cyst has been drained by the referring surgeon. LIMITED left BREAST ULTRASOUND COMPARISON:Mammograms dating back to 2018. Left breast ultrasound 01/15/2023. FINDINGS: The cyst [...] for the next mammogram. Impression dictated by: Penny Gaffney Jr.ORowan08/13/2023 11:14 AM Dictation Location: [facility] Tech: Dayan Ahumada Transcribed By: ADIA 08/13/23 1114 Dictated By: Maurice Person Jr, DO 08/13/23 1111 Signed By: 08/13/23 1114 Normal [facility] Alanine aminotransferase [En zymatic activity/volume] in Serum or PlasmaOrdered By: Peter Ahumada on 05-25-2023 ALT [Catalytic activity/Vol] 7 U/L 7-52 [facility] Albumin [Mass/volume] in Ser um or Plasma by Bromocresol green (BCG) dye binding methoOrdered By: Peter Ahumada on 05-25-2023 Albumin BCG dye [Mass/Vol] 3.8 g/dL 3.5-5.7 [facility] Alkaline phosphatase [Enzyma tic activity/volume] in Serum or PlasmaOrdered By: Peter Ahumada on 05-25-2023 ALP [Catalytic activity/Vol] 54 U/L 34-104 [facility] Aspartate aminotransferase [ Enzymatic activity/volume] in Serum or PlasmaOrdered By: Peter Ahumada on 05-25-2023 AST [Catalytic activity/Vol] 17 U/L 13-39 [facility] Basophils Auto (Bld) [#/Vol] Ordered By: Peter Ahumada on 05-25-2023 Basophils (Bld) [#/Vol] 0.1 10*3/uL 0.0-0.2 [facility] Basophils/100 WBC Auto (Bld) Ordered By: Peter Ahumada on 05-25-2023 Basophils/100 WBC (Bld) 1.1 % . [facility] Bilirubin.total [Mass/volume ] in Serum or PlasmaOrdered By: Peter Ahumada on 05-25-2023 Bilirubin [Mass/Vol] 0.3 mg/dL 0.3-1.0 [facility] Calcium [Mass/volume] in Ser um or PlasmaOrdered By: Peter Ahumada on 05-25-2023 Calcium [Mass/Vol] 8.8 mg/dL 8.6-10.3 [facility] Carbon dioxide, total [Moles /volume] in Serum or PlasmaOrdered By: Peter Ahumada on 05-25-2023 CO2 [Moles/Vol] 29.9 mmol/L 21.0-31.0 [facility] Chloride [Moles/volume] in S renetta or PlasmaOrdered By: Peter Ahumada on 05-25-2023 Chloride [Moles/Vol] 107 mmol/L 98-107 [facility] Cholesterol [Mass/volume] in Serum or PlasmaOrdered By: Peter Ahumada on 05-25-2023 Cholesterol [Mass/Vol] 181 mg/dL 140-200 [facility] Comment on above: Chol less than 200 m g/dl low riskChol 201-239 mg/dl borderline riskChol 240 mg/dl and greater high risk Cholesterol in LDL Calc [Mas s/Vol]Ordered By: Peter Ahumada on 05-25-2023 Cholesterol in LDL [Mass/Vol] 115 mg/dL 0-100 [facility] Comment on above: LDL ATP III CLASSIFI CATIONLDL less than 100 mg/dL OptimalLDL 100-129 mg/dL Near or above optimalLDL 130-159 mg/dL Borderline highLDL 160-189 mg/dL HighLDL greater than 189 mg/dL Very high Cholesterol in VLDL Calc [Ma ss/Vol]Ordered By: Peter Ahumada on 05-25-2023 Cholesterol in VLDL [Mass/Vol] 22 mg/dL [facility] Creatinine [Mass/volume] in Serum or PlasmaOrdered By: Peter Ahumada on 05-25-2023 Creatinine [Mass/Vol] 0.59 mg/dL 0.60-1.20 [facility] Eosinophils Auto (Bld) [#/Vo l]Ordered By: Peter Ahumada on 05-25-2023 Eosinophils (Bld) [#/Vol] 0.1 10*3/uL 0.0-0.45 [facility] Eosinophils/100 WBC Auto (Bl d)Ordered By: Peter Ahumada on 05-25-2023 Eosinophils/100 WBC (Bld) 1.9 % . [facility] Erythrocyte distribution wid th Auto (RBC) [Ratio]Ordered By: Peter Ahumada on 05-25-2023 Erythrocyte distribution width (RBC) [Ratio] 13.7 % 11.9-15.3 [facility] Globulin Calc (S) [Mass/Vol] Ordered By: Peter Ahumada on 05-25-2023 Globulin (S) [Mass/Vol] 2.7 g/dL [facility] Glucose [Mass/volume] in Ser um or PlasmaOrdered By: Peter Ahumada on 05-25-2023 Glucose [Mass/Vol] 87 mg/dL 70-100 [facility] Comment on above: ADA recommended refe rence rangeRandom Glucose Reference Range is dependent on time and content of last meal. Glucose of more than 200 mg/dL in a nonstressed, ambulatory subject supports the diagnosis of Diabetes Mellitus. Glucose mean value [Mass/vol ume] in Blood Estimated from glycated hemoglobinOrdered By: Peter Ahumada on 05-25-2023 Average glucose Estimated from glycated hemoglobin (Bld) [Mass/Vol] 126 mg/dL [facility] Hematocrit Auto (Bld) [Volum e fraction]Ordered By: Peter Ahumada on 05-25-2023 Hematocrit (Bld) [Volume fraction] 36.2 % 34.0-46.4 [facility] Hemoglobin A1c percentageOrd ered By: Peter Ahumada on 05-25-2023 HbA1c (Bld) [Mass fraction] 6.0 % 4.3-5.6 [facility] Comment on above: Increased risk for d iabetes: 5.7 - 6.4diabetes: >6.4glycemic control for adults with diabetes: <7.0 Hemoglobin [Mass/volume] in BloodOrdered By: Peter Ahumada on 05-25-2023 Hemoglobin (Bld) [Mass/Vol] 11.8 g/dL 11.8-15.4 [facility] Leukocytes [#/volume] correc bryan for nucleated erythrocytes in Blood by Automated counOrdered By: Peter Ahumada on 05-25-2023 WBC corrected for nucl RBC Auto (Bld) [#/Vol] 6.1 10*3/uL 3.8-11.6 [facility] Lymphocytes Auto (Bld) [#/Vo l]Ordered By: Peter Ahumada on 05-25-2023 Lymphocytes (Bld) [#/Vol] 2.0 10*3/uL 1.00-4.8 [facility] Lymphocytes/100 WBC Auto (Bl d)Ordered By: Peter Ahumada on 05-25-2023 Lymphocytes/100 WBC (Bld) 32.1 % . [facility] MCH Auto (RBC) [Entitic mass ]Ordered By: Peter Ahumada on 05-25-2023 MCH (RBC) [Entitic mass] 27.3 pg 24.7-34.3 [facility] MCHC Auto (RBC) [Mass/Vol]Or dered By: Peter Ahumada on 05-25-2023 MCHC (RBC) [Mass/Vol] 32.7 g/dL 32.0-35.[address] [facility] MCV Auto (RBC) [Entitic vol] Ordered By: Peter Ahumada on 05-25-2023 MCV (RBC) [Entitic vol] 83.5 fL 80-100 [facility] Monocytes Auto (Bld) [#/Vol] Ordered By: Peter Ahumada on 05-25-2023 Monocytes (Bld) [#/Vol] 0.3 10*3/uL 0.0-0.8 [facility] Monocytes/100 WBC Auto (Bld) Ordered By: Peter Ahumada on 05-25-2023 Monocytes/100 WBC (Bld) 5.2 % . [facility] Neutrophils Auto (Bld) [#/Vo l]Ordered By: Peter Ahumada on 05-25-2023 Neutrophils (Bld) [#/Vol] 3.6 10*3/uL 1.8-7.7 [facility] Neutrophils/100 WBC Auto (Bl d)Ordered By: Peter Ahumada on 05-25-2023 Neutrophils/100 WBC (Bld) 59.7 % . [facility] No Panel InformationOrdered By: Peter Ahumada on 05-25-2023 Estimated GFR (CKD-EPI) > 60.0 mL/Min [facility] Creatinine Clearance (Chem N/A [facility] Nucleated erythrocytes [Pres ence] in Blood by Automated countOrdered By: Peter Ahumada on 05-25-2023 Nucleated RBC Auto Ql (Bld) 0.1 /100{WBC} 0-0.5 [facility] Platelet mean volume Auto (B ld) [Entitic vol]Ordered By: Peter Ahumada on 05-25-2023 Platelet mean volume (Bld) [Entitic vol] 8.5 fL 6.3-10.7 [facility] Platelets Auto (Bld) [#/Vol] Ordered By: Peter Ahumada on 05-25-2023 Platelets (Bld) [#/Vol] 364 10*3/uL 150-450 [facility] Potassium [Moles/volume] in Serum or PlasmaOrdered By: Peter Ahumada on 05-25-2023 Potassium [Moles/Vol] 4.0 mmol/L 3.5-5.1 [facility] Protein [Mass/volume] in Ser um or PlasmaOrdered By: Peter Ahumada on 05-25-2023 Protein [Mass/Vol] 6.5 g/dL 6.4-8.9 [facility] RBC Auto (Bld) [#/Vol]Ordere d By: Peter Ahumada on 05-25-2023 RBC (Bld) [#/Vol] 4.34 10*6/uL 3.60-5.00 [facility] Serum or plasma albumin/glob ulin mass ratioOrdered By: Peter Ahumada on 05-25-2023 Albumin/Globulin [Mass ratio] 1.4 {ratio} [facility] Serum or plasma anion gap de terminationOrdered By: Peter Ahumada on 05-25-2023 Anion gap [Moles/Vol] 10.1 mmol/L 6.0-15.0 [facility] Serum or plasma high density lipoprotein (HDL) cholesterol measurementOrdered By: Peter Ahumada on 05-25-2023 Cholesterol in HDL [Mass/Vol] 44 mg/dL 23-92 [facility] Comment on above: HDL CHOL ATP-III CLA SSIFICATION Cardiovascular RiskHDL > or equal to 60 mg/dL LOWHDL < 40 mg/dL HIGH Serum or plasma total choles terol/high density lipoprotein (HDL) cholesterol mass ratOrdered By: Peter Ahumada on 05-25-2023 Cholesterol.total/Chol esterol in HDL [Mass ratio] 4.1 {ratio} <5.0 [facility] Sodium [Moles/volume] in Ser um or PlasmaOrdered By: Peter Ahumada on 05-25-2023 Sodium [Moles/Vol] 143 mmol/L 136-145 [facility] Thyrotropin [Units/volume] i n Serum or PlasmaOrdered By: Peter Ahumada on 05-25-2023 TSH Qn 0.73 m[IU]/L 0.45-5.33 [facility] Thyroxine (T4) free [Mass/vo lume] in Serum or PlasmaOrdered By: Peter Ahumada on 05-25-2023 Free T4 [Mass/Vol] 0.79 ng/dL 0.61-1.12 [facility] Triglyceride [Mass/volume] i n Serum or PlasmaOrdered By: Peter Ahumada on 05-25-2023 Triglyceride [Mass/Vol] 112 mg/dL 0-149 [facility] Comment on above: TRIG ATP III CLASSIF ICATIONTRIG less than 150 mg/dL NormalTRIG 150-199 mg/dL Borderline highTRIG 200-500 mg/dL High TRIG greater than 500 mg/dL Very highStandard traceable to the Center for Disease Conrtrol and Prevention (CDC) test method. Urea nitrogen [Mass/volume] in Serum or PlasmaOrdered By: Peter Ahumada on 05-25-2023 Urea nitrogen [Mass/Vol] 10 mg/dL 7-25 [facility] WBC Auto (Bld) [#/Vol]Ordere d By: Peter Ahumada on 05-25-2023 WBC (Bld) [#/Vol] 6.1 10*3/uL 3.8-11.6 [facility] Thyrotropin [Units/volume] i n Serum or PlasmaOrdered By: Peter Ahumada on 03-19-2023 TSH Qn 2.20 m[IU]/L 0.45-5.33 [facility] Thyroxine (T4) free [Mass/vo lume] in Serum or PlasmaOrdered By: Peter Ahumada on 03-19-2023 Free T4 [Mass/Vol] 0.62 ng/dL 0.61-1.12 [facility] Alanine aminotransferase [En zymatic activity/volume] in Serum or PlasmaOrdered By: Alba Marshall on 11-01-2022 ALT [Catalytic activity/Vol] 7 U/L 7-52 [facility] Albumin [Mass/volume] in Ser um or Plasma by Bromocresol green (BCG) dye binding methoOrdered By: Alba Marshall on 11-01-2022 Albumin BCG dye [Mass/Vol] 3.7 g/dL 3.5-5.7 [facility] Alkaline phosphatase [Enzyma tic activity/volume] in Serum or PlasmaOrdered By: Alba Marshall on 11-01-2022 ALP [Catalytic activity/Vol] 47 U/L 34-104 [facility] Aspartate aminotransferase [ Enzymatic activity/volume] in Serum or PlasmaOrdered By: Alba Marshall on 11-01-2022 AST [Catalytic activity/Vol] 12 U/L 13-39 [facility] Automated erythrocytes count in urine sediment (number/area)Ordered By: Alba Marshall on 11-01-2022 RBC Auto (Urine sed) [#/Area] 1-2 [HPF] 0-4 [facility] Comment on above: --- 11/01/22 1049 -- -Ur RBC previously reported as: 1-2 /HPFMicroscopic results may be affected due to low specimen volume. Automated leukocytes count i n urine sediment (number/area)Ordered By: Alba Marshall on 11-01-2022 WBC Auto (Urine sed) [#/Area] 1-2 [HPF] 0-4 [facility] Basophils Auto (Bld) [#/Vol] Ordered By: Alba Ibrahimore on 11-01-2022 Basophils (Bld) [#/Vol] 0.1 10*3/uL 0.0-0.2 [facility] Basophils/100 WBC Auto (Bld) Ordered By: Alba Marshall on 11-01-2022 Basophils/100 WBC (Bld) 0.9 % . [facility] Bilirubin Test strip Ql (U)O rdered By: Alba Marshall on 11-01-2022 Bilirubin Ql (U) Negative Negative [facility] Bilirubin.direct [Mass/volum e] in Serum or PlasmaOrdered By: Alba Marshall on 11-01-2022 Bilirubin.direct [Mass/Vol] 0.10 mg/dL 0.03-0.18 [facility] Bilirubin.total [Mass/volume ] in Serum or PlasmaOrdered By: Alba Marshall on 11-01-2022 Bilirubin [Mass/Vol] 0.3 mg/dL 0.3-1.0 [facility] Calcium [Mass/volume] in Ser um or PlasmaOrdered By: Alba Marshall on 11-01-2022 Calcium [Mass/Vol] 8.8 mg/dL 8.6-10.3 [facility] Carbon dioxide, total [Moles /volume] in Serum or PlasmaOrdered By: Alba Wrenimore on 11-01-2022 CO2 [Moles/Vol] 27.6 mmol/L 21.0-31.0 [facility] Chloride [Moles/volume] in S renetta or PlasmaOrdered By: Alba Wrenimore on 11-01-2022 Chloride [Moles/Vol] 105 mmol/L 98-107 [facility] Choriogonadotropin.beta subu nit [Units/volume] in Serum or PlasmaOrdered By: Alba Marshall on 11-01-2022 HCG.beta subunit Qn m[IU]/mL [facility] Comment on above: Approximate Approxim ate hCG Gestational Age Range (mIU/ml) (weeks)0.2-1 5-50 1-2 50-500 2-3 100-5,000 3-4 500-10,000 4-5 1,000-50,000 5-6 10,000-100,000 6-8 15,000-200,000 8-12 10,000-100,000 Color Auto (U)Ordered By: Malgorzata Marshall on 11-01-2022 Color (U) Yellow Yellow [facility] Creatinine [Mass/volume] in Serum or PlasmaOrdered By: Alba Marshall on 11-01-2022 Creatinine [Mass/Vol] 0.60 mg/dL 0.60-1.20 [facility] Eosinophils Auto (Bld) [#/Vo l]Ordered By: Alba Marshall on 11-01-2022 Eosinophils (Bld) [#/Vol] 0.2 10*3/uL 0.0-0.45 [facility] Eosinophils/100 WBC Auto (Bl d)Ordered By: Alba Marshall on 11-01-2022 Eosinophils/100 WBC (Bld) 3.0 % . [facility] Erythrocyte distribution wid th Auto (RBC) [Ratio]Ordered By: Alba Marshall on 11-01-2022 Erythrocyte distribution width (RBC) [Ratio] 13.2 % 11.9-15.3 [facility] Globulin Calc (S) [Mass/Vol] Ordered By: Alba Marshall on 11-01-2022 Globulin (S) [Mass/Vol] 3.1 g/dL [facility] Glucose [Mass/volume] in Ser um or PlasmaOrdered By: Alba Marshall on 11-01-2022 Glucose [Mass/Vol] 95 mg/dL 70-100 [facility] Comment on above: ADA recommended refe rence rangeRandom Glucose Reference Range is dependent on time and content of last meal. Glucose of more than 200 mg/dL in a nonstressed, ambulatory subject supports the diagnosis of Diabetes Mellitus. Hematocrit Auto (Bld) [Volum e fraction]Ordered By: Alba Marshall on 11-01-2022 Hematocrit (Bld) [Volume fraction] 36.8 % 34.0-46.4 [facility] Hemoglobin [Mass/volume] in BloodOrdered By: Alba Marshall on 11-01-2022 Hemoglobin (Bld) [Mass/Vol] 12.5 g/dL 11.8-15.4 [facility] Ketones Auto test strip (U) [Mass/Vol]Ordered By: Alba Marshall on 11-01-2022 Ketones (U) [Mass/Vol] Negative Negative [facility] - UrinalysisOrder ed By: Alba Marshall on 11-01-2022 Hyaline casts LM Ql (Urine sed) 0-8 [LPF] 0-8 [facility] Leukocytes [#/volume] correc bryan for nucleated erythrocytes in Blood by Automated counOrdered By: Alba Marshall on 11-01-2022 WBC corrected for nucl RBC Auto (Bld) [#/Vol] 7.8 10*3/uL 3.8-11.6 [facility] Lymphocytes Auto (Bld) [#/Vo l]Ordered By: Alba Marshall on 11-01-2022 Lymphocytes (Bld) [#/Vol] 1.5 10*3/uL 1.00-4.8 [facility] Lymphocytes/100 WBC Auto (Bl d)Ordered By: Alba Marshall on 11-01-2022 Lymphocytes/100 WBC (Bld) 19.6 % . [facility] MCH Auto (RBC) [Entitic mass ]Ordered By: Alba Marshall on 11-01-2022 MCH (RBC) [Entitic mass] 28.3 pg 24.7-34.3 [facility] MCHC Auto (RBC) [Mass/Vol]Or dered By: Alba Wrenimlila on 11-01-2022 MCHC (RBC) [Mass/Vol] 33.9 g/dL 32.0-35.0 [facility] MCV Auto (RBC) [Entitic vol] Ordered By: Alba Wrenimore on 11-01-2022 MCV (RBC) [Entitic vol] 83.3 fL 80-100 [facility] Monocyte distribution width [Entitic volume] in Blood by AutomatedOrdered By: Alba Marshall on 11-01-2022 Monocyte distribution width Auto (Bld) [Entitic vol] 17.79 % 0.00-20.00 [facility] Monocytes Auto (Bld) [#/Vol] Ordered By: Alba Bullimore on 11-01-2022 Monocytes (Bld) [#/Vol] 0.5 10*3/uL 0.0-0.8 [facility] Monocytes/100 WBC Auto (Bld) Ordered By: Albayehuda Wrenimore on 11-01-2022 Monocytes/100 WBC (Bld) 6.9 % . [facility] Neutrophils Auto (Bld) [#/Vo l]Ordered By: Albayehuda Wrenimore on 11-01-2022 Neutrophils (Bld) [#/Vol] 5.4 10*3/uL 1.8-7.7 [facility] Neutrophils/100 WBC Auto (Bl d)Ordered By: Alba Wrenimore on 11-01-2022 Neutrophils/100 WBC (Bld) 69.6 % . [facility] Nitrite Test strip Ql (U)Ord ered By: Albayehuda Marshall on 11-01-2022 Nitrite Ql (U) Negative Negative [facility] No Panel InformationOrdered By: Alba Marshall on 11-01-2022 Estimated GFR (CKD-EPI) > 60.0 mL/Min [facility] Creatinine Clearance (Chem 179.12 [facility] Nucleated erythrocytes [Pres ence] in Blood by Automated countOrdered By: Alba Wrenimore on 11-01-2022 Nucleated RBC Auto Ql (Bld) 0.1 /100{WBC} 0-0.5 [facility] Platelet mean volume Auto (B ld) [Entitic vol]Ordered By: Alba Wrenimore on 11-01-2022 Platelet mean volume (Bld) [Entitic vol] 7.5 fL 6.3-10.7 [facility] Platelets Auto (Bld) [#/Vol] Ordered By: Alba Bullimore on 11-01-2022 Platelets (Bld) [#/Vol] 278 10*3/uL 150-450 [facility] Potassium [Moles/volume] in Serum or PlasmaOrdered By: Alba Bullimore on 11-01-2022 Potassium [Moles/Vol] 4.3 mmol/L 3.5-5.1 [facility] Protein Auto test strip (U) [Mass/Vol]Ordered By: Alba Bullimore on 11-01-2022 Protein (U) [Mass/Vol] Negative Negative [facility] Protein [Mass/volume] in Ser um or PlasmaOrdered By: Alba Bullimore on 11-01-2022 Protein [Mass/Vol] 6.8 g/dL 6.4-8.9 [facility] RBC Auto (Bld) [#/Vol]Ordere d By: Alba Bullimore on 11-01-2022 RBC (Bld) [#/Vol] 4.41 10*6/uL 3.60-5.00 [facility] Serum or plasma albumin/glob ulin mass ratioOrdered By: Alba Bullimore on 11-01-2022 Albumin/Globulin [Mass ratio] 1.2 {ratio} [facility] Serum or plasma anion gap de terminationOrdered By: Alba Bullimore on 11-01-2022 Anion gap [Moles/Vol] 10.7 mmol/L 6.0-15.0 [facility] Serum or plasma non-glucuron idated bilirubin measurement (mass/volume)Ordered By: Alba Wrenimore on 11-01-2022 Bilirubin.indirect [Mass/Vol] 0.2 mg/dL [facility] Sodium [Moles/volume] in Ser um or PlasmaOrdered By: Alba Bullimore on 11-01-2022 Sodium [Moles/Vol] 139 mmol/L 136-145 [facility] Specific gravity Auto test s trip (U) [Rel density]Ordered By: Alba Bullimore on 11-01-2022 Specific gravity (U) [Rel density] 1.021 1.001-1.030 [facility] Squamous epithelial cells de tection in urine sediment by light microscopyOrdered By: Alba Bullimore on 11-01-2022 Epithelial cells.squamous LM Ql (Urine sed) 3-4 [HPF] 0-2 [facility] Urea nitrogen [Mass/volume] in Serum or PlasmaOrdered By: Alba Marshall on 11-01-2022 Urea nitrogen [Mass/Vol] 7 mg/dL 7-25 [facility] Urine bacteria detection by automated methodOrdered By: Alba Marshall on 11-01-2022 Bacteria Auto Ql (U) 1+ None Seen [facility] Comment on above: --- 11/01/22 1050 -- -Ur Bact previously reported as: 1+ H Microscopic results may be affected due to low specimen volume. Urine clarity by refractomet ry automatedOrdered By: Alba Marshall on 11-01-2022 Clarity Refractometry automated (U) Clear Clear [facility] Urine glucose measurement by automated test strip (mass/volume)Ordered By: Alba Marshall on 11-01-2022 Glucose Auto test strip (U) [Mass/Vol] Normal mg/dL Normal [facility] Urine hemoglobin detection b y automated test stripOrdered By: Alba Marshall on 11-01-2022 Hemoglobin Auto test strip Ql (U) 1+ Negative [facility] Urine leukocyte esterase det ection by automated test stripOrdered By: Alba Marshall on 11-01-2022 Leukocyte esterase Auto test strip Ql (U) Negative Negative [facility] Urobilinogen Auto test strip (U) [Mass/Vol]Ordered By: Alba Marshall on 11-01-2022 Urobilinogen (U) [Mass/Vol] Normal mg/dL Normal [facility] WBC Auto (Bld) [#/Vol]Ordere d By: Alba Marshall on 11-01-2022 WBC (Bld) [#/Vol] 7.8 10*3/uL 3.8-11.6 [facility] Yeast detection in urine sed iment by light microscopyOrdered By: Alba Marshall on 11-01-2022 Yeast LM Ql (Urine sed) None seen [HPF] None Seen [facility] Comment on above: --- 11/01/22 1050 -- [...] on 11-01-2022 pH (U) 6.5 [pH] 5.0-9.0 [facility] Alanine aminotransferase [En zymatic activity/volume] in Serum or PlasmaOrdered By: Peter Ahumada on 10-31-2022 ALT [Catalytic activity/Vol] 8 U/L 7-52 [facility] Albumin [Mass/volume] in Ser um or Plasma by Bromocresol green (BCG) dye binding methoOrdered By: Peter Ahumada on 10-31-2022 Albumin BCG dye [Mass/Vol] 3.8 g/dL 3.5-5.7 [facility] Alkaline phosphatase [Enzyma tic activity/volume] in Serum or PlasmaOrdered By: Peter Ahumada on 10-31-2022 ALP [Catalytic activity/Vol] 49 U/L 34-104 [facility] Aspartate aminotransferase [ Enzymatic activity/volume] in Serum or PlasmaOrdered By: Peter Ahumada on 10-31-2022 AST [Catalytic activity/Vol] 16 U/L 13-39 [facility] Basophils Auto (Bld) [#/Vol] Ordered By: Peter Ahumada on 10-31-2022 Basophils (Bld) [#/Vol] 0.1 10*3/uL 0.0-0.2 [facility] Basophils/100 WBC Auto (Bld) Ordered By: Peter Ahumada on 10-31-2022 Basophils/100 WBC (Bld) 0.9 % . [facility] Bilirubin.total [Mass/volume ] in Serum or PlasmaOrdered By: Peter Ahumada on 10-31-2022 Bilirubin [Mass/Vol] 0.3 mg/dL 0.3-1.0 [facility] Calcium [Mass/volume] in Ser um or PlasmaOrdered By: Peter Ahumada on 10-31-2022 Calcium [Mass/Vol] 9.0 mg/dL 8.6-10.3 [facility] Carbon dioxide, total [Moles /volume] in Serum or PlasmaOrdered By: Peter Ahumada on 10-31-2022 CO2 [Moles/Vol] 25.8 mmol/L 21.0-31.0 [facility] Chloride [Moles/volume] in S renetta or PlasmaOrdered By: Peter Ahumada on 10-31-2022 Chloride [Moles/Vol] 106 mmol/L 98-107 [facility] Cholesterol [Mass/volume] in Serum or PlasmaOrdered By: Peter Ahumada on 10-31-2022 Cholesterol [Mass/Vol] 152 mg/dL 140-200 [facility] Comment on above: Chol less than 200 m g/dl low riskChol 201-239 mg/dl borderline riskChol 240 mg/dl and greater high risk Cholesterol in LDL Calc [Mas s/Vol]Ordered By: Peter Ahumada on 10-31-2022 Cholesterol in LDL [Mass/Vol] 74 mg/dL 0-100 [facility] Comment on above: LDL ATP III CLASSIFI CATIONLDL less than 100 mg/dL OptimalLDL 100-129 mg/dL Near or above optimalLDL 130-159 mg/dL Borderline highLDL 160-189 mg/dL HighLDL greater than 189 mg/dL Very high Cholesterol in VLDL Calc [Ma ss/Vol]Ordered By: Peter Ahumada on 10-31-2022 Cholesterol in VLDL [Mass/Vol] 25 mg/dL [facility] Creatinine [Mass/volume] in Serum or PlasmaOrdered By: Peter Ahumada on 10-31-2022 Creatinine [Mass/Vol] 0.55 mg/dL 0.60-1.20 [facility] Eosinophils Auto (Bld) [#/Vo l]Ordered By: Peter Ahumada on 10-31-2022 Eosinophils (Bld) [#/Vol] 0.2 10*3/uL 0.0-0.45 [facility] Eosinophils/100 WBC Auto (Bl d)Ordered By: Peter Ahumada on 10-31-2022 Eosinophils/100 WBC (Bld) 2.9 % . [facility] Erythrocyte distribution wid th Auto (RBC) [Ratio]Ordered By: Peter Ahumada on 10-31-2022 Erythrocyte distribution width (RBC) [Ratio] 13.3 % 11.9-15.3 [facility] Globulin Calc (S) [Mass/Vol] Ordered By: Peter Ahumada on 10-31-2022 Globulin (S) [Mass/Vol] 2.8 g/dL [facility] Glucose [Mass/volume] in Ser um or PlasmaOrdered By: Peter Ahumada on 10-31-2022 Glucose [Mass/Vol] 98 mg/dL 70-100 [facility] Comment on above: ADA recommended refe rence rangeRandom Glucose Reference Range is dependent on time and content of last meal. Glucose of more than 200 mg/dL in a nonstressed, ambulatory subject supports the diagnosis of Diabetes Mellitus. Hematocrit Auto (Bld) [Volum e fraction]Ordered By: Peter Ahumada on 10-31-2022 Hematocrit (Bld) [Volume fraction] 37.3 % 34.0-46.4 [facility] Hemoglobin [Mass/volume] in BloodOrdered By: Peter Ahumada on 10-31-2022 Hemoglobin (Bld) [Mass/Vol] 12.4 g/dL 11.8-15.4 [facility] Leukocytes [#/volume] correc bryan for nucleated erythrocytes in Blood by Automated counOrdered By: Peter Ahumada on 10-31-2022 WBC corrected for nucl RBC Auto (Bld) [#/Vol] 8.2 10*3/uL 3.8-11.6 [facility] Lymphocytes Auto (Bld) [#/Vo l]Ordered By: Peter Ahumada on 10-31-2022 Lymphocytes (Bld) [#/Vol] 1.8 10*3/uL 1.00-4.8 [facility] Lymphocytes/100 WBC Auto (Bl d)Ordered By: Peter Ahumada on 10-31-2022 Lymphocytes/100 WBC (Bld) 21.7 % . [facility] MCH Auto (RBC) [Entitic mass ]Ordered By: Peter Ahumada on 10-31-2022 MCH (RBC) [Entitic mass] 28.0 pg 24.7-34.3 [facility] MCHC Auto (RBC) [Mass/Vol]Or dered By: Peter Ahumada on 10-31-2022 MCHC (RBC) [Mass/Vol] 33.3 g/dL 32.0-35.0 [facility] MCV Auto (RBC) [Entitic vol] Ordered By: Peter Ahumada on 10-31-2022 MCV (RBC) [Entitic vol] 84.1 fL 80-100 [facility] Monocytes Auto (Bld) [#/Vol] Ordered By: Peter Ahumada on 10-31-2022 Monocytes (Bld) [#/Vol] 0.5 10*3/uL 0.0-0.8 [facility] Monocytes/100 WBC Auto (Bld) Ordered By: Peter Ahumada on 10-31-2022 Monocytes/100 WBC (Bld) 6.2 % . [facility] Neutrophils Auto (Bld) [#/Vo l]Ordered By: Peetr Ahumada on 10-31-2022 Neutrophils (Bld) [#/Vol] 5.6 10*3/uL 1.8-7.7 [facility] Neutrophils/100 WBC Auto (Bl d)Ordered By: Peter Ahumada on 10-31-2022 Neutrophils/100 WBC (Bld) 68.3 % . [facility] No Panel InformationOrdered By: Peter Ahumada on 10-31-2022 Estimated GFR (CKD-EPI) > 60.0 mL/Min [facility] Creatinine Clearance (Chem N/A [facility] Nucleated erythrocytes [Pres ence] in Blood by Automated countOrdered By: Peter Ahumada on 10-31-2022 Nucleated RBC Auto Ql (Bld) 0.1 /100{WBC} 0-0.5 [facility] Platelet mean volume Auto (B ld) [Entitic vol]Ordered By: Peter Ahumada on 10-31-2022 Platelet mean volume (Bld) [Entitic vol] 8.8 fL 6.3-10.7 [facility] Platelets Auto (Bld) [#/Vol] Ordered By: Peter Ahumada on 10-31-2022 Platelets (Bld) [#/Vol] 305 10*3/uL 150-450 [facility] Potassium [Moles/volume] in Serum or PlasmaOrdered By: Peter Ahumada on 10-31-2022 Potassium [Moles/Vol] 4.2 mmol/L 3.5-5.1 [facility] Protein [Mass/volume] in Ser um or PlasmaOrdered By: Peter Ahumada on 10-31-2022 Protein [Mass/Vol] 6.6 g/dL 6.4-8.9 [facility] RBC Auto (Bld) [#/Vol]Ordere d By: Peter Ahumada on 10-31-2022 RBC (Bld) [#/Vol] 4.44 10*6/uL 3.60-5.00 [facility] Serum or plasma albumin/glob ulin mass ratioOrdered By: Peter Ahumada on 10-31-2022 Albumin/Globulin [Mass ratio] 1.4 {ratio} [facility] Serum or plasma anion gap de terminationOrdered By: Peter Ahumada on 10-31-2022 Anion gap [Moles/Vol] 11.4 mmol/L 6.0-15.0 [facility] Serum or plasma high density lipoprotein (HDL) cholesterol measurementOrdered By: Peter Ahumada on 10-31-2022 Cholesterol in HDL [Mass/Vol] 53 mg/dL 35-85 [facility] Comment on above: HDL CHOL ATP-III CLA SSIFICATION Cardiovascular RiskHDL > or equal to 60 mg/dL LOWHDL < 40 mg/dL HIGH Serum or plasma total choles terol/high density lipoprotein (HDL) cholesterol mass ratOrdered By: Peter Ahumada on 10-31-2022 Cholesterol.total/Chol esterol in HDL [Mass ratio] 2.9 {ratio} <5.0 [facility] Sodium [Moles/volume] in Ser um or PlasmaOrdered By: Peter Ahumada on 10-31-2022 Sodium [Moles/Vol] 139 mmol/L 136-145 [facility] Thyrotropin [Units/volume] i n Serum or PlasmaOrdered By: Peter Ahumada on 10-31-2022 TSH Qn 0.61 m[IU]/L 0.45-5.33 [facility] Thyroxine (T4) free [Mass/vo lume] in Serum or PlasmaOrdered By: Peter Ahumada on 10-31-2022 Free T4 [Mass/Vol] 0.76 ng/dL 0.61-1.12 [facility] Triglyceride [Mass/volume] i n Serum or PlasmaOrdered By: Peter Ahumada on 10-31-2022 Triglyceride [Mass/Vol] 125 mg/dL 0-149 [facility] Comment on above: TRIG ATP III CLASSIF ICATIONTRIG less than 150 mg/dL NormalTRIG 150-199 mg/dL Borderline highTRIG 200-500 mg/dL High TRIG greater than 500 mg/dL Very highStandard traceable to the Center for Disease Conrtrol and Prevention (CDC) test method. Urea nitrogen [Mass/volume] in Serum or PlasmaOrdered By: Peter Ahumada on 10-31-2022 Urea nitrogen [Mass/Vol] 6 mg/dL 7-25 [facility] WBC Auto (Bld) [#/Vol]Ordere d By: Peter Ahumada on 10-31-2022 WBC (Bld) [#/Vol] 8.2 10*3/uL 3.8-11.6 [facility] Albumin [Mass/volume] in Ser um or PlasmaOrdered By: Peter Ahumada on 04-19-2022 Albumin [Mass/Vol] 3.2 g/dL 3.2-5.5 [facility] Basophils Auto (Bld) [#/Vol] Ordered By: Peter Ahumada on 04-19-2022 Basophils (Bld) [#/Vol] 0.0 10*3/uL 0.0-0.2 [facility] Basophils/100 WBC Auto (Bld) Ordered By: Peter Ahumada on 04-19-2022 Basophils/100 WBC (Bld) 0.7 % . [facility] Blood hemoglobin measurement (mass/volume)Ordered By: Peter Ahumada on 04-19-2022 Hemoglobin (Bld) [Mass/Vol] 12.3 g/dL 11.8-15.4 [facility] Blood leukocytes automated c ount (number/volume)Ordered By: Peter Ahumada on 04-19-2022 WBC (Bld) [#/Vol] 5.9 10*3/uL 4.5-11.0 [facility] Cholesterol [Mass/volume] in Serum or PlasmaOrdered By: Peter Ahumada on 04-19-2022 Cholesterol [Mass/Vol] 159 mg/dL 140-[facility] on above: Chol less than 200 m g/dl low riskChol 201-239 mg/dl borderline riskChol 240 mg/dl and greater high risk Cholesterol in LDL Calc [Mas s/Vol]Ordered By: Peter Ahumada on 04-19-2022 Cholesterol in LDL [Mass/Vol] 84 mg/dL 0-100 [facility] Comment on above: LDL ATP III CLASSIFI CATIONLDL less than 100 mg/dL OptimalLDL 100-129 mg/dL Near or above optimalLDL 130-159 mg/dL Borderline highLDL 160-189 mg/dL HighLDL greater than 189 mg/dL Very high Cholesterol in VLDL Calc [Ma ss/Vol]Ordered By: Peter Ahumada on 04-19-2022 Cholesterol in VLDL [Mass/Vol] 22 mg/dL [facility] Creatinine and Glomerular fi ltration rate.predicted panel (S/P/Bld)Ordered By: Peter Ahumada on 04-19-2022 Creatinine [Mass/Vol] 0.58 mg/dL 0.44-1.03 [facility] Eosinophils Auto (Bld) [#/Vo l]Ordered By: Peter Ahumada on 04-19-2022 Eosinophils (Bld) [#/Vol] 0.1 10*3/uL 0.0-0.45 [facility] Eosinophils/100 WBC Auto (Bl d)Ordered By: Peter Ahumada on 04-19-2022 Eosinophils/100 WBC (Bld) 2.4 % . [facility] Erythrocyte distribution wid th Auto (RBC) [Ratio]Ordered By: Peter Ahumada on 04-19-2022 Erythrocyte distribution width (RBC) [Ratio] 13.4 % 11.9-15.3 [facility] Estimated glomerular filtrat ion rate (GFR) non- AmericanOrdered By: Peter Ahumada on 04-19-2022 GFR/1.73 sq M.predicted among non-blacks MDRD (S/P/Bld) [Vol rate/Area] > 60 mL/Min [facility] Globulin Calc (S) [Mass/Vol] Ordered By: Peter Ahumada on 04-19-2022 Globulin (S) [Mass/Vol] 3.1 g/dL [facility] Hematocrit Auto (Bld) [Volum e fraction]Ordered By: Peter Ahumada on 04-19-2022 Hematocrit (Bld) [Volume fraction] 37.1 % 34.0-46.4 [facility] Laboratory - Hematology and Cell countsOrdered By: Peter Ahumada on 04-19-2022 Nucleated RBC/100 WBC (Bld) [Ratio] 0.1 % 0-0.5 [facility] Lymphocytes Auto (Bld) [#/Vo l]Ordered By: Peter Ahumada on 04-19-2022 Lymphocytes (Bld) [#/Vol] 1.7 10*3/uL 1.00-4.8 [facility] Lymphocytes/100 WBC Auto (Bl d)Ordered By: Peter Ahumada on 04-19-2022 Lymphocytes/100 WBC (Bld) 28.8 % . [facility] MCH Auto (RBC) [Entitic mass ]Ordered By: Peter Ahumada on 04-19-2022 MCH (RBC) [Entitic mass] 27.8 pg 24.7-34.3 [facility] MCHC Auto (RBC) [Mass/Vol]Or dered By: Peter Ahumada on 04-19-2022 MCHC (RBC) [Mass/Vol] 33.2 g/dL 32.0-35.0 [facility] MCV Auto (RBC) [Entitic vol] Ordered By: Peter Ahumada on 04-19-2022 MCV (RBC) [Entitic vol] 83.6 fL 80-100 [facility] Monocytes Auto (Bld) [#/Vol] Ordered By: Peter Ahumada on 04-19-2022 Monocytes (Bld) [#/Vol] 0.4 10*3/uL 0.0-0.8 [facility] Monocytes/100 WBC Auto (Bld) Ordered By: Peter Ahumada on 04-19-2022 Monocytes/100 WBC (Bld) 6.6 % . [facility] Neutrophils Auto (Bld) [#/Vo l]Ordered By: Peter Ahumada on 04-19-2022 Neutrophils (Bld) [#/Vol] 3.6 10*3/uL 1.8-7.7 [facility] Neutrophils/100 WBC Auto (Bl d)Ordered By: Peter Ahumada on 04-19-2022 Neutrophils/100 WBC (Bld) 61.5 % . [facility] No Panel InformationOrdered By: Peter Ahumada on 04-19-2022 Estimated GFR () > 60 mL/Min [facility] Comment on above: GFR estimated refere nce range: According to KDOQI guidelines, <60 ml/min/1.73m2 is sufficient to diagnose a patient with chronic kidney disease. Pharmacy Creatinine Clearance (Chem N/A [facility] Platelet mean volume Auto (B ld) [Entitic vol]Ordered By: Peter Ahumada on 04-19-2022 Platelet mean volume (Bld) [Entitic vol] 8.9 fL 6.3-10.7 [facility] Platelets Auto (Bld) [#/Vol] Ordered By: Peter Ahumada on 04-19-2022 Platelets (Bld) [#/Vol] 319 10*3/uL 150-450 [facility] Protein [Mass/volume] in Ser um or PlasmaOrdered By: Peter Ahumada on 04-19-2022 Protein [Mass/Vol] 6.3 g/dL 6.1-7.9 [facility] RBC Auto (Bld) [#/Vol]Ordere d By: Peter Ahumada on 04-19-2022 RBC (Bld) [#/Vol] 4.43 10*6/uL 3.60-5.00 [facility] Serum or plasma alanine ny otransferase measurement without P-5'-P (enzymatic activiOrdered By: Peter Ahumada on 04-19-2022 ALT No additional P-5'-P [Catalytic activity/Vol] 9 U/L 10-60 [facility] Serum or plasma albumin/glob ulin mass ratioOrdered By: Peter Ahumada on 04-19-2022 Albumin/Globulin [Mass ratio] 1.0 {ratio} [facility] Serum or plasma alkaline deirdre sphatase measurement (enzymatic activity/volume)Ordered By: Peter Ahumada on 04-19-2022 ALP [Catalytic activity/Vol] 41 U/L 32-92 [facility] Serum or plasma anion gap de terminationOrdered By: Peter Ahumada on 04-19-2022 Anion gap [Moles/Vol] 13.9 mmol/L 6.0-15.0 [facility] Serum or plasma aspartate am inotransferase measurement (enzymatic activity/volume)Ordered By: Peter Ahumada on 04-19-2022 AST [Catalytic activity/Vol] 15 U/L 10-42 [facility] Serum or plasma calcium scotty urement (mass/volume)Ordered By: Peter Ahumada on 04-19-2022 Calcium [Mass/Vol] 8.8 mg/dL 8.2-10.2 [facility] Serum or plasma chloride francoise surement (moles/volume)Ordered By: Peter Ahumada on 04-19-2022 Chloride [Moles/Vol] 100 mmol/L 95-114 [facility] Serum or plasma glucose scotty urement (mass/volume)Ordered By: Peter Ahumada on 04-19-2022 Glucose [Mass/Vol] 87 mg/dL 70-100 [facility] Comment on above: ADA recommended refe rence rangeRandom Glucose Reference Range is dependent on time and content of last meal. Glucose of more than 200 mg/dL in a nonstressed, ambulatory subject supports the diagnosis of Diabetes Mellitus. Serum or plasma high density lipoprotein (HDL) cholesterol measurementOrdered By: Peter Ahumada on 04-19-2022 Cholesterol in HDL [Mass/Vol] 53 mg/dL 35-85 [facility] Comment on above: HDL CHOL ATP-III CLA SSIFICATION Cardiovascular RiskHDL > or equal to 60 mg/dL LOWHDL < 40 mg/dL HIGH Serum or plasma potassium me asurement (moles/volume)Ordered By: Peter Ahumada on 04-19-2022 Potassium [Moles/Vol] 3.9 mmol/L 3.5-5.1 [facility] Serum or plasma sodium measu rement (moles/volume)Ordered By: Peter Ahumada on 04-19-2022 Sodium [Moles/Vol] 136 mmol/L 136-146 [facility] Serum or plasma total biliru bin measurement (mass/volume)Ordered By: Peter Ahumada on 04-19-2022 Bilirubin [Mass/Vol] 0.4 mg/dL 0.3-1.2 [facility] Serum or plasma total carbon dioxide measurement (moles/volume)Ordered By: Peter Ahumada on 04-19-2022 CO2 [Moles/Vol] 26.0 mmol/L 22.0-30.0 [facility] Serum or plasma total choles terol/high density lipoprotein (HDL) cholesterol mass ratOrdered By: Peter Ahumada on 04-19-2022 Cholesterol.total/Chol esterol in HDL [Mass ratio] 3.0 {ratio} <5.0 [facility] Serum or plasma urea nitroge n measurement (mass/volume)Ordered By: Peter Ahumada on 04-19-2022 Urea nitrogen [Mass/Vol] 5 mg/dL 9-23 [facility] TSH DL <= 0.005 mIU/L QnOrde red By: Peter Ahumada on 04-19-2022 TSH Qn 1.94 m[IU]/L 0.45-5.33 [facility] Thyroxine (T4) free [Mass/vo lume] in Serum or PlasmaOrdered By: Peter Ahumada on 04-19-2022 Free T4 [Mass/Vol] 0.69 ng/dL 0.61-1.12 [facility] Triglyceride [Mass/volume] i n Serum or PlasmaOrdered By: Peter Ahumada on 04-19-2022 Triglyceride [Mass/Vol] 111 mg/dL 35-149 [facility] Comment on above: TRIG ATP III CLASSIF ICATIONTRIG less than 150 mg/dL NormalTRIG 150-199 mg/dL Borderline highTRIG 200-500 mg/dL High TRIG greater than 500 mg/dL Very highStandard traceable to the Center for Disease Conrtrol and Prevention (CDC) test method. CNOVon 10-13-2021 CNOV Office Visit ([id number] ) -------- DARLING KHANNA ([id number]) 1980 F Date Time Provider Department 10/13/21 1:30 PM KATE DANIEL [id number] During your visit today, we recorded the following information about you: Temperature Pulse Blood pressure Weight 97.7 degrees 68/minute 112/55 115.2 kg Height 1.829 m Kate Daniel MD 10/17/2021 1:50 PM Signed Assessment ESTABLISHED PATIENT Darling Khanna is a 40 year old female with a right posterior liver subcapsular fluid collection ? 03/03/2021: Patient presented to [facility] ER on 02/08/2021 for 2 [...] ? Received Records From:? 02/08/2021 ER Report [facility] 02/09/2021 ER Report [facility] 02/15/2021 PCP Office note ? Visited ER [...] gradually improving. US of ovaries yesterday at [facility]. Scheduled for upper GI at end of month. Gained?50 pounds since July?(was in [place] for 3 months, drank a lot); diagnosed [...] well. She did spend 3 months in [place] and did not have any issues, hospitalizations [...] which included preparing to see the patient, [id number] patient care and completing clinical documentation. MD Jayne Garrido Ma 10/13/2021 1:33 PM Signed What is the reason for your visit today? Follow up Who is your referring physician? Are you having poor oral intake? NO Have you had unintentional weight loss of 15 lbs/7 Kg in the last 3-6 months? NO Bowels: regular Wound: Temperature: No Drains: No Referring Provider: KATE DANIEL [[id number]] Allergies As of Date: 10/13/2021 Noted Allergy Reaction INDOMETHACIN 05/10/2018 7 - Swelling Date Reviewed: 10/13/2021 Reviewed by: Jyane Aguila Ma - Fully Assessed Reason for [...] of 05/10 (more content not included)... [facility][id number][facility] -------- DARLING KHANNA ([id number]) 1980 F Date Time Provider Department 09/30/21 KATE DANIEL [id number] During your visit today, we recorded the following information about you: Sujatha Tomas 09/30/2021 9:00 AM Signed Called patient to reschedule her 10/13 in person to virtual. She would like to keep in person. She also wants to know if a CT or MRI can be ordered of her pancreas abdomen as she hasn't had anything done recently. She can be reached at [phone]. Talat Armendariz RN 10/10/2021 11:29 AM Signed Kate Daniel MD You 10 days ago I will see her [...] Status:Closed by TALAT ARMENDARIZ RN on 10/10/21 [facility] [place] CNOVon 04-07-2021 CNOV Office Visit ([id number] ) -------- DARLING KHANNA ([id number]) 1980 F Date Time Provider Department 04/07/21 2:30 PM KATE DANIEL [id number] During your visit today, we recorded the following information about you: Temperature Pulse Blood pressure Weight 97.5 degrees 95/minute 136/77 109.3 kg Height 1.829 m Jayne Aguila Ma 04/07/2021 2:31 PM Signed What is the [...] subcapsular fluid collection 03/03/2021: Patient presented to [facility] ER on 02/08/2021 for 2 [...] ? Received Records From:? 02/08/2021 ER Report [facility] 02/09/2021 ER Report [facility] 02/15/2021 PCP Office note ? Visited ER [...] gradually improving. US of ovaries yesterday at [facility]. Scheduled for upper GI at end of month. Gained 50 pounds since July (was in [place] for 3 months, drank a lot); diagnosed [...] which included preparing to see the patient, [id number] patient care and completing clinical documentation. Kate Daniel MD Referring Provider: KATE DANIEL [[id number]] Allergies As of Date: 04/07/2021 Noted Allergy [...] 11/26/2017 Visit Notes: >> Jayne Aguila Ma [facility] Apr 07, 2021 2:28 PM Status: Signed What is the reason for your visit today? Follow up Who is your referring physician? Are you having poor oral intake? NO Have you had unintentional weight loss of 15 lbs/7 Kg in the last 3-6 months? NO Bowels: regular Wound: Temperature: No (more content not included)... Normal [facility] CNTRTMon 03-22-2021 CNTRTM Treatment Team (ANSHUL VILLAFUERTE) -------- DARLING KHANNA ([id number]) 1980 F Date Time Provider Department 03/22/21 [...] findings to suggest etiology Pre-conference plan (from [facility]): - Observation and serial imaging Imaging Review: [...] Status:Closed by WILLIAM DE LEÓN on 03/23/21 [facility] [place] CNOVon 03-03-2021 CNOV Office Visit ([id number] ) -------- DARLING KHANNA ([id number]) 1980 F Date Time Provider Department 03/03/21 10:00 AM KATE DANIEL [id number] During your visit today, we recorded the following information about you: Temperature Pulse Blood pressure Weight 98.3 degrees 82/minute 128/85 112 kg Height 1.829 m Jayne Aguila La 03/03/2021 10:03 AM Signed What is the [...] 40 year old female Patient presented to [facility] ER on 02/08/2021 for 2 [...] ? Received Records From: 02/08/2021 ER Report [facility] 02/09/2021 ER Report [facility] 02/15/2021 PCP Office note Visited ER 4 [...] gradually improving. US of ovaries yesterday at [facility]. Scheduled for upper GI at end of month. Gained 50 pounds since July (was in [place] for 3 months, drank a lot); diagnosed [...] was malignant. Seen by Dr. H[facility], in [facility]; denies chemotherapy or radiation. Hernia repair Social [...] - Smoking status: Former Smoker Quit date: 2006 Years since quittin.6 - Smokeless tobacco: Never [...] cm (6') (more content not included)... Normal [facility] DARLING KHANNA ([id number]) 1980 F Date Time Provider Department 02/23/21 KATE DANIEL [facility] During your visit today, we recorded the following information about you: Talat Armendariz RN 02/23/2021 10:02 AM Addendum Hepatobiliary Surgery Consult HPI: Patient presented to [facility] ER on 02/08/2021 for 2 [...] collection Received Records From: 02/08/2021 ER Report [facility] 02/09/2021 ER Report [facility] 02/15/2021 PCP Office note Records Review BMI 33 Current OCP Imagin02/08/2021 CT A/P wo IVCON (Report [facility]- report rec'd) - minor basilar atelectasis or scarring - nonspecific lymph nodes - tiny umbilical hernia containing fat - no intra hepatic masses are noted - no bowel or urinary tract obstructions - no acute findings 02/08/2021 Ultrasound RUQ (Report [facility]- report rec'd) - unremarkable - no evidence of gallstones, gallbladder wall thickening, or ductal dilation 02/15/2021 CT A/P w IVCON (Report [facility]- report rec'd) - no acute abdominal or pelvis abnormality - indeterminate liver lesion: ill defined low attenuation lesion measuring at least 2.5cm in the medial segment of the left lobe of the liver posteriorly 02/17/2021 MRI Abdomen w/wo IVCON (Report [facility]- report rec'd) - unremarkable size of liver [...] months 02/22/2021 CT A/P w IVCON (Report [facility]- report rec'd) - 62mm x 20mm lenticular [...] 8:26 AM Signed Patient's records scanned into [facility] and imaging downloaded from [facility], please review. Tatyana Leroy 02/25/2021 9:53 AM Signed Scheduled patient for new consult on 03/03/2021. 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] Consult [173] Prescriptions as [...] 05/10/2018: BC Problem List As Of Date 02/23/2021 Noted Resolved Chronic pain of right knee [M25.561, G89.29] 11/12/2017 Pain in right foot [M79.671] 11/26/2017 Encounter Status:Closed by TATYANA PEDRO on 02/25/21 Normal [facility] AMYLASEon 02-22-2021 Amylase [Catalytic activity/Vol] 48 U/L Normal 31-110 [facility] Comment on above: Performed By: #### L IPA, CMP, SHAI #### [facility] [address] [place], [place] [address] Ruy Ayleen CBC AUTO DIFFon 02-22-2021 BASO # 0.1 103/ul Normal 0.0-0.1 [facility] Comment on above: Performed By: #### C BC #### [facility] [address] [place], [place] [address] Ruy Ayleen Basophils/100 WBC (Bld) 0.7 % Normal 0.2-2.0 [facility] Comment on above: Performed By: #### C BC #### [facility] [address] [place] [address] Ruy Ayleen EO # 0.1 103/ul Normal 0.0-0.7 [facility] Comment on above: Performed By: #### C BC #### [facility] [address] [place], [place] [id number] Ruy Ayleen Eosinophils/100 WBC (Bld) 1.2 % Normal 0.9-7.0 [facility] Comment on above: Performed By: #### C BC #### [facility] [address] [place] [address] Ruy Ayleen Erythrocyte distribution width (RBC) [Ratio] 12.6 % Normal 11.0-15.0 [facility] Comment on above: Performed By: #### C BC #### [facility] [address] [place] [address] Ruy Ayleen Hematocrit (Bld) [Volume fraction] 38.7 % Normal 36.0-48.0 [facility] Comment on above: Performed By: #### C BC #### [facility] [address] [place] [address] Ruy Ayleen Hemoglobin (Bld) [Mass/Vol] 12.6 g/dL Normal 12.0-16.0 [facility] Comment on above: Performed By: #### C BC #### [facility] [address] [place] [address] Ruy Ayleen IG # 0.02 10e3/ul Normal 0.00-0.03 [facility] Comment on above: Performed By: #### C BC #### [facility] [address] [place] [address] Ruy Ayleen IG % 0.2 % Normal 0.0-0.5 [facility] Comment on above: Performed By: #### C BC #### [facility] [address] [place] [address] Ruy Ayleen LYMPH # 2.4 103/ul Normal 1.2-3.8 [facility] Comment on above: Performed By: #### C BC #### [facility] [address] [place], [place] [id number] Ruy Ayleen Lymphocytes/100 WBC (Bld) 22.4 % Normal 20.5-60.0 [facility] Comment on above: Performed By: #### C BC #### [facility] [address] [place], [place] [id number] Ruy Ayleen MANUAL DIFF REQ NO Normal [facility] Comment on above: Performed By: #### C BC #### [facility] [address] [place], [place] [id number] Ruy Ayleen MCH (RBC) [Entitic mass] 27.7 pg Normal 26.7-34.0 [facility] Comment on above: Performed By: #### C BC #### [facility] [address] [place], [place] [id number] Ruyradhames Abbasi MCHC (RBC) [Mass/Vol] 32.6 g/dL Normal 29.9-35.2 [facility] Comment on above: Performed By: #### C BC #### [facility] [address] [place] [address] Ruyradhames Cardozoen MCV (RBC) [Entitic vol] 85.1 fL Normal 81.0-99.0 [facility] Comment on above: Performed By: #### C BC #### [facility] [address] [place], [place] [address] Ruy Ayleen MONO # 0.7 103/ul Normal 0.3-0.8 [facility] Comment on above: Performed By: #### C BC #### [facility] [address] [place], [place] [id number] Ruy Ayleen Monocytes/100 WBC (Bld) 6.5 % Normal 1.7-12.0 [facility] Comment on above: Performed By: #### C BC #### [facility] [address] [place], [place] [id number] Ruy Ayleen NEUT # 7.3 103/ul Critically high 1.4-6.5 [facility] Comment on above: Performed By: #### C BC #### [facility] [address] [place], [place] [address] Ruy Ayleen Neutrophils/100 WBC (Bld) 69.0 % Normal 43.0-75.0 [facility] Comment on above: Performed By: #### C BC #### [facility] [address] [place] [address] Ruy Abbasi Platelet mean volume (Bld) [Entitic vol] 9.3 fL Critically low 9.5-13.5 [facility] Comment on above: Performed By: #### C BC #### [facility] [address] [place], [place] [address] Ruy Abbasi PLT 324 103/ul Normal 150-450 [facility] Comment on above: Performed By: #### C BC #### [facility] [address] [place], [place] [address] Ruy Abbasi RBC 4.55 106/ul Normal 4.20-5.40 [facility] Comment on above: Performed By: #### C BC #### [facility] [address] [place], [place] [address] Ruy Abbasi WBC 10.6 103/ul Normal 4.0-11.0 [facility] Comment on above: Performed By: #### C BC #### [facility] [address] [place] [address] ABD/PELV W CONon 02-23-20 [...] MARINA HERNANDEZ Date: 2021-02-22 03:10 Normal [facility] D-DIMERon 02-22-2021 D-DIMER 0.40 mg/L FEU Normal 0.19-0.[address] [facility] Comment on above: Performed By: #### D DIM #### [facility] [address] [place] [address] Ruy Ayleen D-DIMER COMMENTS SEE BELOW Normal [facility] Comment on above: Result Comment: Incr [...] hospitalization. Performed By: #### D DIM #### [facility] [address] [place] [id number] Ruy Abbasi LIPASEon 02-22-2021 Lipase [Catalytic activity/Vol] 120.0 U/L Normal 23.0-300.0 [facility] Comment on above: Performed By: #### L IPA, CMP, SHAI #### [facility] [address] [place], [place] [address] Ruy Abbasi MONOon 02-22-2021 Monocytes (Bld) [#/Vol] Negative Normal NEGATIVE [facility] Comment on above: Performed By: #### M IGOR #### [facility] [address] [place] [id number] Ruy Abbasi OT-CT ABD/PELVIS W CON IMPOR Ton 02-22-2021 OT-CT ABD/PELVIS W CON IMPORT Images were obtained outside of [facility] [id number] Normal [facility] OT-CT ABD/PELVIS W CON IMPORT Images were obtained outside of [facility] [id number] Normal [facility] PREG HCG QUALon 02-22-2021 , QUAL Negative Normal NEGATIVE [facility] Comment on above: Performed By: #### P REG #### [facility] [address] [id number] Ruyradhames Cardozoen PROF 14(COMP METB)on 021 Albumin [Mass/Vol] 3.2 g/dL Critically low 3.5-5.0 [facility] Comment on above: Performed By: #### L IPA CMP, SHAI #### [facility] [address] [id number] Ruy Ayleen Albumin/Globulin [Mass ratio] 0.7 {ratio} Normal [facility] Comment on above: Performed By: #### L IPA, CMP, SHAI #### [facility] [address] [id number] Ruy Ayleen ALP [Catalytic activity/Vol] 54 U/L Normal 38-126 [facility] Comment on above: Performed By: #### L IPA, CMP, SAHI #### [facility] [address] [id number] Ruy Ayleen ALT [Catalytic activity/Vol] 11 U/L Normal 9-52 [facility] Comment on above: Performed By: #### L IPA, CMP, SHAI #### [facility] [address] [id number] Ruy Ayleen Anion gap [Moles/Vol] 11.6 mmol/L Normal [facility] Comment on above: Performed By: #### L IPA, CMP, SHAI #### [facility] [address] [place] [address] Ruy Ayleen AST [Catalytic activity/Vol] 12 U/L Critically low 14-36 [facility] Comment on above: Performed By: #### L IPA, CMP, SHAI #### [facility] [address] [address] Ruy Ayleen Bilirubin [Mass/Vol] 0.2 mg/dL Normal 0.2-1.3 [facility] Comment on above: Performed By: #### L IPA, CMP, SHAI #### [facility] [address] [address] Ruy Ayleen Calcium [Mass/Vol] 9.2 mg/dL Normal 8.4-10.[address] [facility] Comment on above: Performed By: #### L IPA, CMP, SHAI #### [facility] [address] [place] [address] Ruy Ayleen Chloride [Moles/Vol] 104 mmol/L Normal 98-107 [facility] Comment on above: Performed By: #### L IPA, CMP, SHAI #### [facility] [address] [place] [address] Ruy Ayleen CO2 [Moles/Vol] 29.7 mmol/L Normal 22.0-30.0 [facility] Comment on above: Performed By: #### L IPA, CMP, SHAI #### [facility] [address] [place] [address] Ruy Ayleen Creatinine [Mass/Vol] 0.74 mg/dL Normal 0.52-1.04 [facility] Comment on above: Performed By: #### L IPA, CMP, SHAI #### [facility] [address] [place] [address] Ruy Ayleen EGFR-AF IRISH >60 Normal >=60 [facility] Comment on above: Performed By: #### L IPA, CMP, SHAI #### [facility] [address] [place] [address] Ruy Ayleen EGFR-NON AF IRISH >60 Normal >=60 [facility] Comment on above: Performed By: #### L IPA, CMP, SHAI #### [facility] [address] [place] [address] Ruy Ayleen Globulin (S) [Mass/Vol] 4.4 g/dL Normal [facility] Comment on above: Performed By: #### L IPA, CMP, SHAI #### [facility] [address] [address] Ruy Ayleen Glucose [Mass/Vol] 104 mg/dL Normal 74-[address] [facility] Comment on above: Performed By: #### L IPA CMP, SHAI #### [facility] [address] [address] Ruy Ayleen Potassium [Moles/Vol] 4.3 mmol/L Normal 3.4-5.0 [facility] Comment on above: Performed By: #### L IPA CMP, SHAI #### [facility] [address] [address] Ruy Ayleen Protein [Mass/Vol] 7.6 g/dL Normal 6.1-8.[address] [facility] Comment on above: Performed By: #### L IPA CMP, SHAI #### [facility] [address] [address] Ruy Ayleen Sodium [Moles/Vol] 141 mmol/L Normal 137-[address] [facility] Comment on above: Performed By: #### L IPA CMP, SHAI #### [facility] [address] [address] Ruy Ayleen Urea nitrogen [Mass/Vol] 9.0 mg/dL Normal 7.0-17.0 [facility] Comment on above: Performed By: #### L IPA CMP, SHAI #### [facility] [address] [address] Ruy Ayleen Urea nitrogen/Creatinine [Mass ratio] 12.2 mg/mg Normal [facility] Comment on above: Performed By: #### L IPA CMP, SHAI #### [facility] [address] [address] Ruy Ayleen MR-MR abdomen wo/w con IMPOR Ton 02-16-2021 MR-MR abdomen wo/w con IMPORT Images were obtained outside of [facility] [id number] Normal [facility] CT-CT abdomen pelvis w con I MPORTon 02-15-2021 CT-CT abdomen pelvis w con IMPORT Images were obtained outside of [facility] [id number] Normal [facility] CT-CT abdomen pelvis wo con IMPORTon 02-08-2021 CT-CT abdomen pelvis wo con IMPORT Images were obtained outside of [facility] [id number] Normal [facility] US-US gall bladder IMPORTon 02-08-2021 US-US gall bladder IMPORT Images were obtained outside of [facility] [id number] Normal [facility] CNOVon 12-28-2020 CNOV Office Visit (LOORRM ) -------- DARLING KHANNA ([id number]) 1980 F Date Time Provider Department 12/28/20 3:30 PM CAST TECH YANIRA MARCANO During your visit today, we recorded the following information about you: Tracey Hair Ma 12/28/2020 4:25 PM Signed Dispensed XL/XXL Reaction brace for the Right knee. Dispensed by [employer]. Instructions were given on application/adjustments. She will f/u as scheduled/prn. Tracey Hair MA,RICARDO Referring Provider: ISHAN YUSUF [[id number]] Allergies As of Date: 12/28/2020 Noted Allergy [...] right foot [M79.671] 11/26/2017 Encounter Status:Closed by SARAVANAN MANSFIELD TRACEY on 12/28/[address] [facility] CN Office Visit (LOORRM ) -------- DARLING KHANNA ([id number]) 1980 F Date Time Provider Department 12/28/20 [...] little finger with routine healing, subsequent encounter [S82.272E] Other Visit Diagnosis:Patellofemoral arthralgia of right knee [...] Encounter Status:Closed by ISHAN YUSUF on 12/28/20 [facility] CNOVon 11-30-2020 CNOV Office Visit (LOORRM ) -------- ANA KHANNAA ([id number]) 1980 F Date Time Provider Department 11/30/20 3:30 PM ISHAN YUSUFORRSilva During your visit today, we recorded the [...] results and radiologist's interpretation, available in the [facility] health record. Images were reviewed with the patient/family members in the office today. My personal interpretation of the performed imaging is healing proximal phalanx fracture CLINICAL IMPRESSION / ASSESSMENT: (U46.956O) Closed nondisplaced fracture of proximal phalanx of [...] little finger with routine healing, subsequent encounter [C76.466D] Order(s):XR HAND GENERAL 3V PA/LAT/OBL LT [[id number]] Order #: [id number] FUTURE CONSULT TO GAMING ASSOCIATE [[id number]] Order #: [id number]: [id number] FUTURE Prescriptions as of 11/30/2020 Sig: [...] Status:Closed by ISHAN YUSUF on 11/30/[address] [facility] XR HAND 3V PA/LAT/OBL LTon 0 11-30-2020 [...] fractures. IMPRESSION: Healing 5th proximal phalanx fracture Pig Lead Melter Helper[facility] Transcribe Date/Time: Nov 30 2020 4:18P Dictated by : JUDITH FUENTES MD This examination was interpreted and the report reviewed and electronically signed by: JUDITH FUENTES MD on Nov 30 2020 4:19PM EST [id number] Normal [facility] XR Hand - left PA and Latera l and Obliqueon 11-30-2020 IMPRESSION: Healing 5th proximal phalanx fracture Pig Lead Melter Helper: [facility] Transcribe Date/Time: Nov 30 2020 4:18P Dictated by : JUDITH FUENTES MD This examination was interpreted and the report reviewed and electronically signed by: JUDITH FUENTES MD on Nov 30 2020 4:19PM EST DIVISION OF RADIOLOGY * * *Final [...] No additional fractures. DIVISION OF RADIOLOGY Provider, [facility] - 11/30/2020 * * *Final Report* * * DATE OF EXAM: Nov 30 2020 3:45PM BRIANX [id number] - XR HAND 3V PA/LAT/OBL LT [...] IMPRESSION IMPRESSION: Healing 5th proximal phalanx fracture Pig Lead Melter Helper: WILBERT Transcribe Date/Time: Nov 30 2020 4:18P Dictated by : JUDITH FUENTES MD This examination was interpreted and the report reviewed and electronically signed by: JUDITH FUENTES MD on Nov 30 2020 4:19PM EST [facility] Radiology Study observation (narrative) [facility] XR Hand - left PA and Latera l and ObliqueOrdered By: Ccf Provider on 11-30-2020 [facility] CNOVon 11-18-2020 CNOV Office Visit (LOORRM ) -------- DARLING KHANNA ([id number]) 1980 F Date Time Provider Department 11/18/20 [...] results and radiologist's interpretation, available in the [facility] health record. Images were reviewed with the patient/family members in the office today. My personal interpretation of the performed imaging is intra-articular proximal phalanx fracture CLINICAL IMPRESSION / ASSESSMENT: (I08.924W) Closed nondisplaced fracture of proximal phalanx of [...] phalanx of left little finger, initial encounter [E39.955Y] Order(s):XR HAND GENERAL 3V PA/LAT/OBL LT [[id number]] Order #: [id number] FUTURE Prescriptions as of 11/18/2020 Sig: OMEPRAZOLE [...] Encounter Status:Closed by ISHAN YUSUF on 11/18/20 [facility] XR HAND 3V PA/LAT/OBL LTon 0 11-18-2020 [...] unchanged. IMPRESSION: Healing fifth proximal phalanx fracture. Pig Lead Melter Helper: WILBERT Transcribe Date/Time: Nov 18 2020 8:15P Dictated by : ADRIANE CAMPOS MD This examination was interpreted and the report reviewed and electronically signed by: ADRIANE CAMPOS MD on Nov 18 2020 8:27PM EST [id number] Normal [facility] XR Hand - left PA and Latera l and Obliqueon 11-18-2020 IMPRESSION: Healing fifth proximal phalanx fracture. Pig Lead Melter Helper: WILBERT Transcribe Date/Time: Nov 18 2020 8:15P [...] fracture. Remainder unchanged. DIVISION OF RADIOLOGY Provider, [facility] - 11/18/2020 * * *Final Report* * * DATE OF EXAM: Nov 18 2020 3:50PM BRIANX [id number] - XR HAND 3V PA/LAT/OBL LT [...] IMPRESSION IMPRESSION: Healing fifth proximal phalanx fracture. Pig Lead Melter Helper: [facility] Transcribe Date/Time: Nov 18 2020 8:15P Dictated by : ADRIANE CAMPOS MD This examination was interpreted and the report reviewed and electronically signed by: ADRIANE CAMPOS MD on Nov 18 2020 8:27PM [facility] Radiology Study observation (narrative) [facility] XR Hand - left PA and Latera l and ObliqueOrdered By: Ccf Provider on 11-18-2020 [facility] CNOVon 11-04-2020 CNOV Office Visit (ORAVON ) -------- DARLING KHANNA ([id number]) 1980 F Date Time Provider Department 11/04/20 2:00 PM BOB MILLAN During your visit today, we recorded the following information about you: Bob Millan DO 11/04/2020 2:12 PM Signed [facility] Office Visit Documentation Note [facility] REASON FOR VISIT / CHIEF COMPLAINT SERVICE [...] results and radiologist's interpretation, available in the [facility] health record. Images were reviewed with the patient/family members in the office today. My personal interpretation of the performed imaging is Has IA prox phalanx fracture at PIP ASSESSMENT / PLAN CLINICAL IMPRESSION / ASSESSMENT: (L82.226L) Closed nondisplaced fracture of proximal phalanx of [...] plan as detailed above. Bob Millan D.O. [facility] Team Physician, [facility] Consulting Physician, [facility] Dayan Landeros, Medical Insurance Claims Processor [phone] Patient verbalizes understanding and agrees with the treatment plan as detailed above. Referring Provider: SELF [[id number]] Allergies As of Date: 11/04/2020 Noted Allergy Reaction INDOMETHACIN 05/10/2018 7 - Swelling Date Reviewed: 11/04/2020 Reviewed by: Juaquin Farmer - Fully Assessed Reason for Visit: New [[id number]] Primary Visit Diagnosis:Closed nondisplaced fracture of proximal [...] for Dr. Yusuf or Shayla Silva in [place]. Follow-up and Disposition History Recorded Encounter Status:Closed by BOB MILLAN DO on 11/04/[address] [facility] DX-XR HAND COMPLETE LEFT IMP Shelbie 10-30-2020 DX-XR HAND COMPLETE LEFT IMPORT Images were obtained outside of [facility] [id number] Normal [facility] Vital Signs Date Time Vital Sign Value Performing Clinician Facility 09-10-2024 15:25-0500 Body height 182.9 cm Alber Itzkowitz DO Work Phone: [facility] 09-10-2024 15:25-0500 Body mass index (BMI) [Ratio] 27.8 kg/m2 Alber Itzkowitz DO Work Phone: [facility] 09-10-2024 15:25-0500 Body weight 92.99 kg Alber Itzkowitz DO Work Phone: [facility] 09-10-2024 15:25-0500 Diastolic blood pressure 70 mm[Hg] Alber Itzkowitz DO Work Phone: [facility] 09-10-2024 15:25-0500 Systolic blood pressure 120 mm[Hg] Alber Itzkowitz DO Work Phone: [facility] 09-09-2024 14:37-0500 Body height 182.88 cm Peterluiza Shenshira DO Work Phone: [facility] 09-09-2024 14:37-0500 Body mass index (BMI) [Ratio] 27.9 kg/m2 Peterluiza Shens DO Work Phone: [facility] 09-09-2024 14:37-0500 Body weight 93.44 kg Peter Shens DO Work Phone: [facility] 09-09-2024 14:37-0500 Diastolic blood pressure 70 mm[Hg] Peter Shens DO Work Phone: [facility] 09-09-2024 14:37-0500 Heart rate 74 /min Peter Shens DO Work Phone: [facility] 09-09-2024 14:37-0500 SaO2% (BldA) [Mass fraction] 95 % Peter Shens DO Work Phone: [facility] 02-18-2025 14:37-0500 Systolic blood pressure 126 mm[Hg] Peterluiza Shens DO Work Phone: [facility] 06-10-2024 15:00-0500 Body height 182.88 cm Peterluiza Shens DO Work Phone: [facility] 06-10-2024 15:00-0500 Body mass index (BMI) [Ratio] 32.3 kg/m2 Peterluiza Shens DO Work Phone: [facility] 06-10-2024 15:00-0500 Body weight 107.95 kg Peterluiza Shens DO Work Phone: [facility] 06-10-2024 15:00-0500 Diastolic blood pressure 60 mm[Hg] Peterluiza Shens DO Work Phone: [facility] 06-10-2024 15:00-0500 Heart rate 75 /min Peterluiza Shens DO Work Phone: [facility] 06-10-2024 15:00-0500 Respiratory rate 16 /min Peter Shens DO Work Phone: [facility] 06-10-2024 15:00-0500 SaO2% (BldA) [Mass fraction] 96 % Peter Shens DO Work Phone: [facility] 06-10-2024 15:00-0500 Systolic blood pressure 98 mm[Hg] Peterluiza Shens DO Work Phone: [facility] 03-06-2024 14:27-0400 Body height 182.88 cm DO Peter Kuns Work Phone: [facility] 03-06-2024 14:27-0400 Body mass index (BMI) [Ratio] 36.4 kg/m2 DO Peter Kuns Work Phone: [facility] 03-06-2024 14:27-0400 Body weight 122.01 kg DO Peter Acs Work Phone: [facility] 03-06-2024 14:27-0400 Diastolic blood pressure 72 mm[Hg] DO Peter Acs Work Phone: [facility] 03-06-2024 14:27-0400 Heart rate 77 /min DO Peter Acs Work Phone: [facility] 03-06-2024 14:27-0400 Respiratory rate 16 /min DO Peterluiza Shens Work Phone: [facility] 03-06-2024 14:27-0400 SaO2% (BldA) [Mass fraction] 96 % DO Peter Shens Work Phone: [facility] 03-06-2024 14:27-0400 Systolic blood pressure 118 mm[Hg] DO Peter Acs Work Phone: [facility] 01-29-2024 14:05-0400 Diastolic blood pressure 78 mm[Hg] DO Peterluiza Shens Work Phone: [facility] 01-29-2024 14:05-0400 Heart rate 91 /min DO Peter Shens Work Phone: [facility] 01-29-2024 14:05-0400 Respiratory rate 16 /min DO Peter Shens Work Phone: [facility] 01-29-2024 14:05-0400 SaO2% (BldA) [Mass fraction] 94 % DO Peterluiza Shens Work Phone: [facility] 01-29-2024 14:05-0400 Systolic blood pressure 124 mm[Hg] DO Peter Acs Work Phone: [facility] 01-29-2024 13:05-0400 Body temperature 97 [degF] DO Peter Acs Work Phone: [facility] 01-29-2024 12:42-0400 Inhaled oxygen flow rate 8 L/min DO Peter Acs Work Phone: [facility] 01-29-2024 11:44-0400 Body height 182.88 cm DO Peter Kuns Work Phone: [facility] 01-29-2024 11:44-0400 Body mass index (BMI) [Ratio] 36.5 kg/m2 DO Peter Kuns Work Phone: [facility] 01-29-2024 11:44-0400 Body weight 122.2 kg DO Peter Kuns Work Phone: [facility] 12-31-2023 07:25-0400 Body height 2194.56 cm DO Peter Kuns Work Phone: [facility] 12-31-2023 07:25-0400 Body mass index (BMI) [Ratio] 0.2 kg/m2 DO Peter Kuns Work Phone: [facility] 12-31-2023 07:25-0400 Body weight 122.46 kg DO Peter Kuns Work Phone: [facility] 12-31-2023 07:25-0400 Diastolic blood pressure 80 mm[Hg] DO Peter Kuns Work Phone: [facility] 12-31-2023 07:25-0400 Heart rate 65 /min DO Peter Kuns Work Phone: [facility] 12-31-2023 07:25-0400 Respiratory rate 16 /min DO Peter Kuns Work Phone: [facility] 12-31-2023 07:25-0400 SaO2% (BldA) [Mass fraction] 97 % DO Peter Kuns Work Phone: [facility] 12-31-2023 07:25-0400 Systolic blood pressure 118 mm[Hg] DO Peter Kuns Work Phone: [facility] 12-27-2023 14:20-0400 Body height 182.88 cm DO Peter Kuns Work Phone: [facility] 12-27-2023 14:20-0400 Body mass index (BMI) [Ratio] 37.3 kg/m2 DO Peter Kuns Work Phone: [facility] 12-27-2023 14:20-0400 Body weight 124.73 kg DO Peter Kuns Work Phone: [facility] 12-27-2023 14:20-0400 Diastolic blood pressure 70 mm[Hg] DO Peter Kuns Work Phone: [facility] 12-27-2023 14:20-0400 Heart rate 86 /min DO Peter Kuns Work Phone: [facility] 12-27-2023 14:20-0400 Respiratory rate 16 /min DO Peter Kuns Work Phone: [facility] 12-27-2023 14:20-0400 SaO2% (BldA) [Mass fraction] 96 % DO Peter Kuns Work Phone: [facility] 12-27-2023 14:20-0400 Systolic blood pressure 116 mm[Hg] DO Peter Kuns Work Phone: [facility] 12-17-2023 07:31-0400 Body height 182.88 cm DO Peter Kuns Work Phone: [facility] 12-17-2023 07:31-0400 Body temperature 97.7 [degF] DO Peter Kuns Work Phone: [facility] 12-17-2023 07:31-0400 Body weight 123.9 kg DO Peter Kuns Work Phone: [facility] 12-17-2023 07:31-0400 Diastolic blood pressure 90 mm[Hg] DO Peter Kuns Work Phone: [facility] 12-17-2023 07:31-0400 Heart rate 88 /min DO Peter Kuns Work Phone: [facility] 12-17-2023 07:31-0400 Respiratory rate 20 /min DO Peter Ahumada Work Phone: [facility] 12-17-2023 07:31-0400 SaO2% (BldA) [Mass fraction] 97 % DO Peter Ahumada Work Phone: [facility] 12-17-2023 07:31-0400 Systolic blood pressure 143 mm[Hg] DO Peter Ahumada Work Phone: [facility] 06-08-2023 10:30-0500 Body height 182.88 cm Peter Shenshira Other [employer] Other 06-08-2023 10:30-0500 Body mass index (BMI) [Ratio] 34.91 kg/m2 Peter Ahumada Other [employer] Other 06-08-2023 10:30-0500 Body weight 116.76 kg Peter Ahumada Other [employer] Other 06-08-2023 10:30-0500 Diastolic blood pressure 82 mm[Hg] Peter Ahumada Other [employer] Other 06-08-2023 10:30-0500 Respiratory rate 16 /min Peter Blake Other [employer] Other 06-08-2023 10:30-0500 SaO2% (BldA) [Mass fraction] 98 % Peter Blake Other [employer] Other 06-08-2023 10:30-0500 Systolic blood pressure 126 mm[Hg] Peter Ahumada Other [employer] Other 05-24-2023 15:00-0400 Body height 182.88 cm Peter Ahumada Other [employer] Other 05-24-2023 15:00-0400 Body mass index (BMI) [Ratio] 35.12 kg/m2 Peter Ahumada Other [employer] Other 05-24-2023 15:00-0400 Body weight 117.48 kg Peter Ahumada Other [employer] Other 05-24-2023 15:00-0400 Diastolic blood pressure 86 mm[Hg] Peter Ahumada Other [employer] Other 05-24-2023 15:00-0400 Respiratory rate 16 /min Peter Ahumada Other [employer] Other 05-24-2023 15:00-0400 SaO2% (BldA) [Mass fraction] 95 % Peter Ahumada Other [employer] Other 05-24-2023 15:00-0400 Systolic blood pressure 130 mm[Hg] Peter Ahumada Other [employer] Other 03-21-2023 08:30-0400 Body height 182.88 cm Peter Ahumada Other [employer] Other 03-21-2023 08:30-0400 Body mass index (BMI) [Ratio] 34.39 kg/m2 Peter Ahumada Other [employer] Other 03-21-2023 08:30-0400 Body weight 115.03 kg Peter Ahumada Other [employer] Other 03-21-2023 08:30-0400 Diastolic blood pressure 70 mm[Hg] Peter Ahumada Other [facility] [employer] Other 03-21-2023 08:30-0400 Respiratory rate 16 /min Peter Ahumada Other [facility] [employer] Other 03-21-2023 08:30-0400 SaO2% (BldA) [Mass fraction] 95 % Peter Ahumada Other [facility] [employer] Other 03-21-2023 08:30-0400 Systolic blood pressure 124 mm[Hg] Peter Ahumada Other [facility] [employer] Other 11-01-2022 13:49-0400 Diastolic blood pressure 90 mm[Hg] DO Peter Shens Work Phone: [facility] 11-01-2022 13:49-0400 Systolic blood pressure 153 mm[Hg] DO Peter Ahumada Work Phone: [facility] 11-01-2022 13:02-0400 Body temperature 97.6 [degF] DO Peter Ahumada Work Phone: [facility] 11-01-2022 13:02-0400 Heart rate 72 /min DO Peter Shens Work Phone: [facility] 11-01-2022 13:02-0400 Respiratory rate 18 /min DO Peter Shens Work Phone: [facility] 11-01-2022 13:02-0400 SaO2% (BldA) [Mass fraction] 96 % DO Peter Shens Work Phone: [facility] 11-01-2022 08:58-0400 Body height 182.88 cm DO Peter Shens Work Phone: [facility] 11-01-2022 08:58-0400 Body weight 117.93 kg DO Peter Ahumada Work Phone: [facility] 05-25-2022 17:00-0400 Body height 182.88 cm Peter Blake Other [employer] Other 05-25-2022 17:00-0400 Body mass index (BMI) [Ratio] 33.63 kg/m2 Peter Ahumada Other [employer] Other 05-25-2022 17:00-0400 Body weight 112.49 kg Peter Blake Other [employer] Other 05-25-2022 17:00-0400 Diastolic blood pressure 74 mm[Hg] Peter Ahumada Other [employer] Other 05-25-2022 17:00-0400 Respiratory rate 16 /min Peterluiza Ahumada Other [employer] Other 05-25-2022 17:00-0400 SaO2% (BldA) [Mass fraction] Peter Ahumada Other [employer] Other 05-25-2022 17:00-0400 Systolic blood pressure 118 mm[Hg] Peter Ahumada Other [employer] Other 04-24-2022 09:15-0400 Body height 182.88 cm Peter Ahumada Other [employer] Other 04-24-2022 09:15-0400 Body mass index (BMI) [Ratio] 33.5 kg/m2 Peter Ahumada Other [employer] Other 04-24-2022 09:15-0400 Body weight 112.04 kg Peterluiza Ahumada Other [employer] Other 04-24-2022 09:15-0400 Diastolic blood pressure 78 mm[Hg] Peter Ahumada Other [employer] Other 04-24-2022 09:15-0400 Respiratory rate 18 /min Peter Ahumada Other [employer] Other 04-24-2022 09:15-0400 SaO2% (BldA) [Mass fraction] 96 % Peter Ahumada Other [employer] Other 04-24-2022 09:15-0400 Systolic blood pressure 124 mm[Hg] Peter Ahumada Other [employer] Other 11-02-2021 12:00-0400 Body height 182.88 cm Peter Ahumada Other [employer] Other 11-02-2021 12:00-0400 Body mass index (BMI) [Ratio] 34.44 kg/m2 Peter Ahumada Other [employer] Other 11-02-2021 12:00-0400 Body weight 115.21 kg Peter Ahumada Other [employer] Other 11-02-2021 12:00-0400 Diastolic blood pressure 66 mm[Hg] Peter Ahumada Other [employer] Other 11-02-2021 12:00-0400 Respiratory rate 16 /min Peter Ahumada Other [employer] Other 11-02-2021 12:00-0400 SaO2% (BldA) [Mass fraction] 97 % Peter Ahumada Other [employer] Other 11-02-2021 12:00-0400 Systolic blood pressure 124 mm[Hg] Peter Ahumada Other [facility] Other 10-17-2021 09:15-0400 Body height 182.88 cm Peter Ahumada Other [facility] Other 10-17-2021 09:15-0400 Body mass index (BMI) [Ratio] 34.2 kg/m2 Peter Ahumada Other [facility] Other 10-17-2021 09:15-0400 Body weight 114.4 kg Peter Ahumada Other [facility] Other 10-17-2021 09:15-0400 Diastolic blood pressure 76 mm[Hg] Peter Ahumada Other [facility] Other 10-17-2021 09:15-0400 Respiratory rate 18 /min Peter Ahumada Other [facility] Other 10-17-2021 09:15-0400 SaO2% (BldA) [Mass fraction] 98 % Peter Ahumada Other [facility] Other 10-17-2021 09:15-0400 Systolic blood pressure 118 mm[Hg] Peter Ahumada Other [facility] Other 10-13-2021 13:28-0400 Body height 182.9 cm Kate Daniel MD Work Phone: [facility] 10-13-2021 13:28-0400 Body temperature 97.7 [degF] Kate Daniel MD Work Phone: [facility] 10-13-2021 13:28-0400 Body weight 115.21 kg Kate Daniel MD Work Phone: [facility] 10-13-2021 13:28-0400 Diastolic blood pressure 55 mm[Hg] Kate Daniel MD Work Phone: [facility] 10-13-2021 13:28-0400 Heart rate 68 /min Kate Daniel MD Work Phone: [facility] 10-13-2021 13:28-0400 SaO2% (BldA) [Mass fraction] 97 % Kate Daniel MD Work Phone: [facility] 10-13-2021 13:28-0400 Systolic blood pressure 112 mm[Hg] Kate Daniel MD Work Phone: [facility] 04-20-2021 08:45-0400 Body height 182.88 cm Peter Ahumada Other [facility] Other 04-20-2021 08:45-0400 Body mass index (BMI) [Ratio] 31.87 kg/m2 Peter Ahumada Other [facility] Other 04-20-2021 08:45-0400 Body weight 106.6 kg Peter Ahumada Other [facility] Other 04-20-2021 08:45-0400 Diastolic blood pressure 74 mm[Hg] Peter Ahumada Other [facility] Other 04-20-2021 08:45-0400 Respiratory rate 18 /min Peter Ahumada Other [facility] Other 04-20-2021 08:45-0400 SaO2% (BldA) [Mass fraction] 96 % Peter Ahumada Other [facility] [employer] Other 04-20-2021 08:45-0400 Systolic blood pressure 110 mm[Hg] Peter Ahumada Other [facility] [employer] Other Encounters Encounter Date Encounter Type Care Provider Facility Start: 09-10-2024 End: 09-10-2024 Office outpatient visit 15 minutes Alber Haines DO Work Phone: [facility] Comment on above: Sebaceous cyst (Prim arvin Dx) Start: 09-10-2024 End: 09-10-2024 ambulatory ALBER H ITZRK Not Available Start: 09-09-2024 End: 09-09-2024 ambulatory Peter Ahumada DO Work Phone: [facility] Work Phone: Start: 09-09-2024 End: 09-09-2024 Patient encounter procedure Peter Ahumada DO Work Phone: [facility] Work Phone: Start: 09-01-2024 End: 09-01-2024 ambulatory Christos Manrique MD Facility: [facility] Start: 07-17-2024 End: 07-17-2024 ambulatory Peter Ahumada Facility:[facility] Start: 07-17-2024 End: 07-17-2024 Discharged Recurring Peter Ahumada DO Work Phone: [facility]-Physical Therapy [facility] Work Phone: Start: 06-23-2024 End: 06-23-2024 ambulatory [facility] Start: 06-10-2024 End: 06-10-2024 ambulatory Peter Ahumada DO Work Phone: [facility] Work Phone: Start: 06-10-2024 End: 06-10-2024 Patient encounter procedure Peter Ahumada DO Work Phone: [facility] Work Phone: Start: 06-04-2024 End: 06-04-2024 Patient encounter procedure Peter Ahumada DO Work Phone: [facility]-MRI [place] Work Phone: Start: 06-04-2024 End: 06-04-2024 ambulatory Peter Ahumada DO Work Phone: [facility] Work Phone: Start: 05-22-2024 End: 05-22-2024 Patient encounter procedure Rahul Castillo DO Work Phone: [facility] Comment on above: Lumbosacral radiculo yaritza (Primary Dx) Start: 05-22-2024 End: 05-22-2024 ambulatory RAHUL CASTILLO Not Available Start: 05-22-2024 End: 05-22-2024 Bamboo flowsheet Rahul Castillo DO Work Phone: [facility] Start: 05-22-2024 End: 05-22-2024 Bamboo flowsheet Rahul Castillo DO Work Phone: [facility] Start: 05-19-2024 End: 05-19-2024 ambulatory DO Peter Ahumada Work Phone: [facility] Work Phone: Start: 05-19-2024 End: 05-19-2024 Discharged Recurring DO Peter Ahumada Work Phone: [facility]-Physical Therapy [facility] Work Phone: Start: 03-12-2024 End: 03-12-2024 Patient encounter procedure DO Peter Ahumada Work Phone: [facility]-Ultrasound [place] Work Phone: Start: 03-12-2024 End: 03-12-2024 ambulatory DO Peter Ahumada Work Phone: [facility] Work Phone: Start: 03-06-2024 End: 03-06-2024 ambulatory DO Peter Ahumada Work Phone: [facility] Work Phone: Start: 03-06-2024 End: 03-06-2024 Patient encounter procedure DO Peter Ahumada Work Phone: [facility] Work Phone: Start: 03-05-2024 End: 03-05-2024 Patient encounter procedure DO Peter Ahumada Work Phone: [facility]-Lab [facility] Work Phone: Start: 03-05-2024 End: 03-05-2024 ambulatory DO Peter Ahumada Work Phone: [facility] Work Phone: Start: 02-28-2024 End: 02-28-2024 ambulatory ALBER Judd YANCY Not Available Start: 02-13-2024 End: 02-13-2024 ambulatory DO Peter Ahumada Work Phone: [facility] Work Phone: Start: 02-13-2024 End: 02-13-2024 Patient encounter procedure DO Peter Ahumada Work Phone: [facility] Work Phone: Start: 02-13-2024 End: 02-13-2024 Patient encounter procedure DO Peter Ahumada Work Phone: [facility]XRay [facility] Start: 02-13-2024 End: 02-13-2024 ambulatory DO Peter Ahumada Work Phone: [facility] Work Phone: Start: 02-07-2024 End: 02-07-2024 ambulatory ALBER HAINES Not Available Start: 01-29-2024 End: 01-29-2024 Admission to same day surgery center DO Peter Ahumada Work Phone: [facility]-Surgery Center [place] Start: 01-29-2024 End: 01-29-2024 ambulatory DO Peter Ahumada Work Phone: [facility] Work Phone: Start: 01-15-2024 End: 01-15-2024 Departed Referred DO Peter Ahumada Work Phone: [facility]-Pre-Surgical Testing Work Phone: Start: 01-15-2024 End: 01-15-2024 Patient encounter procedure DO Peter Ahumada Work Phone: [facility]-Pre-Surgical Testing Work Phone: Start: 01-15-2024 End: 01-15-2024 ambulatory DO Peter Ahumada Work Phone: [facility] Work Phone: Start: 01-14-2024 End: 01-14-2024 ambulatory DO Peter Ahumada Work Phone: [facility] Work Phone: Start: 01-14-2024 End: 01-14-2024 Patient encounter procedure DO Peter Ahumada Work Phone: [facility] Work Phone: Start: 01-14-2024 End: 01-14-2024 Patient encounter procedure DO Peter Ahumada Work Phone: [facility]Ray [facility] Start: 01-14-2024 End: 01-14-2024 ambulatory DO Peter Ahumada Work Phone: [facility] Work Phone: Start: 01-03-2024 End: 01-03-2024 ambulatory ALBER WILLISLAILASYDNI Not Available Start: 12-31-2023 End: 12-31-2023 ambulatory DO Peterluiza Ahumada Work Phone: [facility] Work Phone: Start: 12-31-2023 End: 12-31-2023 Patient encounter procedure DO Peter Shenshira Work Phone: [facility] Work Phone: Start: 12-31-2023 End: 12-31-2023 Patient encounter procedure DO Peter Ahumada Work Phone: [facility]-Ultrasound [place] Work Phone: Start: 12-31-2023 End: 12-31-2023 ambulatory DO Peter Blake Work Phone: [facility] Work Phone: Start: 12-31-2023 End: 12-31-2023 ambulatory DO Peter Ahumada Work Phone: [facility] Work Phone: Start: 12-31-2023 End: 12-31-2023 Patient encounter procedure DO Peter Ahumada Work Phone: [facility] Work Phone: Start: 12-28-2023 End: 12-28-2023 Patient encounter procedure DO Peter Ahumada Work Phone: [facility]-XRay [place] Work Phone: Start: 12-28-2023 End: 12-28-2023 ambulatory DO Peter Acshira Work Phone: [facility] Work Phone: Start: 12-27-2023 End: 12-27-2023 ambulatory DO Peter Shenshira Work Phone: [facility] Work Phone: Start: 12-27-2023 End: 12-27-2023 Patient encounter procedure DO Peter Ahumada Work Phone: [facility] Work Phone: Start: 12-19-2023 Non-patient / Non-visit DO Terry luiza Ahumada Work Phone: [facility] Work Phone: Start: 12-17-2023 End: 12-17-2023 Emergency department patient visit DO Petre Ahumada Work Phone: [facility]-Emergency Room Work Phone: Start: 12-12-2023 End: 12-12-2023 ambulatory ALBER HAINES Not Available Start: 12-03-2023 End: 12-03-2023 Patient encounter procedure DO Peter Ahumada Work Phone: [facility] Work Phone: Start: 12-03-2023 End: 12-03-2023 ambulatory DO Peter Ahumada Work Phone: [facility] Work Phone: Start: 08-27-2023 End: 08-27-2023 ambulatory Peter Ahumada Other [facility] [employer] Other Start: 08-27-2023 Telephone encounter Peter Ahumada [facility] Start: 08-22-2023 End: 08-22-2023 ambulatory DO Peter Blake Work Phone: [facility] Work Phone: Start: 08-22-2023 End: 08-22-2023 Patient encounter procedure DO Peter Blake Work Phone: [facility] Work Phone: Start: 08-20-2023 End: 08-20-2023 ambulatory Peter Ahumada Other [facility] Other Start: 08-20-2023 Telephone encounter Peter Ahumada [facility] Family [facility] Start: 08-13-2023 Telephone encounter Peter Ahumada [facility] Family [facility] Start: 08-13-2023 End: 08-13-2023 Patient encounter procedure DO Peter Ahumada Work Phone: [facility]-Center for Breast Care Work Phone: Start: 08-13-2023 End: 08-13-2023 ambulatory DO Peter Ahumada Work Phone: [facility] Other Start: 08-06-2023 End: 08-06-2023 ambulatory Peter Ahumada Other [facility] Other Start: 08-06-2023 Telephone encounter Peter Ahumada [facility] Start: 06-11-2023 End: 06-11-2023 ambulatory Peter Ahumada Other [facility] Other Start: 06-11-2023 Telephone encounter Peter Ahumada [facility] Start: 06-08-2023 Office outpatient vi sit 25 minutes Peter Ahumada [facility] Start: 06-08-2023 End: 06-08-2023 ambulatory DO Peter Ahumada Work Phone: [facility] Work Phone: Start: 06-08-2023 End: 06-08-2023 Patient encounter procedure DO Peter Ahumada Work Phone: [facility]-ay [place] Work Phone: Start: 06-08-2023 End: 06-08-2023 Patient encounter procedure DO Peter Ahumada Work Phone: [facility] Work Phone: Start: 05-25-2023 End: 05-25-2023 Patient encounter procedure DO Peter Ahumada Work Phone: [facility]XRay [place] Work Phone: Start: 05-24-2023 End: 05-24-2023 ambulatory Peter Ahumada Other [facility] Other Start: 05-24-2023 Office outpatient vi sit 25 minutes Peter Ahumada [facility] Start: 05-24-2023 End: 05-24-2023 Patient encounter procedure DO Peter Ahumada Work Phone: [facility] Work Phone: Start: 03-21-2023 End: 03-21-2023 ambulatory Peter Ahumada Other [facility] Other Start: 03-21-2023 Office outpatient vi sit 15 minutes Peter Ahumada [facility] Start: 03-19-2023 End: 03-19-2023 ambulatory DO Peter Ahumada Work Phone: [facility] Work Phone: Start: 03-19-2023 End: 03-19-2023 Patient encounter procedure DO Peter Ahumada Work Phone: [facility]-Lab [facility] Work Phone: Start: 01-15-2023 End: 01-15-2023 ambulatory DO Peter Ahumada Work Phone: [facility] Work Phone: Start: 01-15-2023 End: 01-15-2023 Patient encounter procedure DO Peter Ahumada Work Phone: [facility]-Ultrasound Cntr for Breast Car Start: 01-12-2023 End: 01-12-2023 ambulatory Peter Ahumada Other [facility] Other Start: 01-12-2023 Telephone encounter Peter Ahumada [facility] Start: 11-23-2022 End: 11-23-2022 Patient encounter procedure DO Peter Acshira Work Phone: [facility]-Ultrasound [place] Work Phone: Start: 11-01-2022 End: 11-01-2022 Emergency department patient visit DO Peter Shenshira Work Phone: [facility]-Emergency Room Work Phone: Start: 10-31-2022 End: 10-31-2022 ambulatory DO Peterluiza Ahumada Work Phone: [facility] Work Phone: Start: 10-31-2022 End: 10-31-2022 Patient encounter procedure DO Peter Ahumada Work Phone: [facility]-Lab [facility] Work Phone: Start: 05-25-2022 End: 05-25-2022 Departed Referred DO Peterluiza Ahumada Work Phone: [facility]-Lab [place] Start: 05-25-2022 End: 05-25-2022 ambulatory DO Peter Blake Work Phone: [facility] Other Start: 05-25-2022 Office outpatient vi sit 15 minutes Peter Ahumada [facility] Start: 04-24-2022 End: 04-24-2022 ambulatory Peter Ahumada Other [facility] Other Start: 04-24-2022 Office outpatient vi sit 25 minutes Peter Ahumada [facility] Start: 04-19-2022 End: 04-19-2022 ambulatory DO Peter Ahumada Work Phone: [facility] Work Phone: Start: 04-19-2022 End: 04-19-2022 Patient encounter procedure DO Peter Ahumada [facility] Start: 11-15-2021 End: 11-15-2021 ambulatory Peter Ahumada Other [facility] Other Start: 11-15-2021 Telephone encounter Peter Ahumada [facility] Start: 11-02-2021 End: 11-02-2021 ambulatory Peter Ahumada Other [facility] Other Start: 11-02-2021 Office outpatient vi sit 15 minutes Peter Ahumada [facility] Start: 10-17-2021 End: 10-17-2021 ambulatory Peter Ahumada Other [facility] Other Start: 10-17-2021 Office outpatient vi sit 25 minutes Peter Ahumada [facility] Start: 10-13-2021 End: 10-13-2021 Patient encounter procedure Kate Daniel MD Work Phone: General Surgery Comment on above: Liver pain (Primary Dx) Start: 04-20-2021 Office outpatient vi sit 25 minutes Peter Ahumada [facility] Start: 02-22-2021 End: 02-22-[address] PETER AHUMADA Facility: Start: 11-30-2020 End: 11-30-2020 Subsequent hospital visit by physician Carlos Baker 1 Work Phone: Radiology Comment on above: Closed nondisplaced fracture of proximal phalanx of left little finger, initial encounter [S62.292A] Start: 11-18-2020 End: 11-18-2020 Subsequent hospital visit by physician Carlos Baker 1 Work Phone: Radiology Comment on above: Closed nondisplaced fracture of proximal phalanx of left little finger, initial encounter [P82.994A] Procedures Date Procedure Procedure Detail Performing Clinician Start: 06-04-2024 XR pre/post mri xray Zaki Ahumada DO Work Phone: Start: 06-04-2024 MRI of left ankle Peter Ahumada DO Work Phone: Start: 05-22-2024 End: 05-22-2024 Needle emg ea extremty w/paraspinl area complete Rahul Castillo DO Work Phone: Start: 03-12-2024 US scan of gallbladder DO Peter Ahumada Work Phone: Start: 02-13-2024 Plain X-ray of right elbow DO Peter Ahumada Work Phone: Start: 01-29-2024 Repair of umbilical hernia DO Peter Ahumada Work Phone: Start: 01-14-2024 Plain X-ray of right elbow DO Peter Ahumada Work Phone: Start: 12-31-2023 Ultrasonography of abdomen DO Peter Ahumada Work Phone: Start: 12-28-2023 Plain X-ray of right elbow DO Peter Ahumada Work Phone: Start: 12-28-2023 X-ray of right knee DO Peter Ahumada Work Phone: Start: 12-17-2023 Plain X-ray of right clavicle DO Peter Ahumada Work Phone: Start: 12-17-2023 Plain X-ray of right forearm DO Peter Ahumada Work Phone: Start: 12-17-2023 Plain X-ray of right shoulder DO Peter Ahumada Work Phone: Start: 12-17-2023 X-ray of left [...] P,Tdap,Td Vaccine (2 - Td or Tdap) [facility] Start: 05-22-2024 End: 05-22-2024 Patient encounter procedure 05/22/2024 2:30 PM EDT Procedure Visit [facility] [address] [facility] [address] [place] [address] Rahul Castillo DO [address] [place] [id number] Arrived [facility] Comment on above: Arrived Start: 03-23-2024 Covid-19 Vaccine ( season) Covid-19 Vaccine ( season) [facility] Start: 03-23-2024 Influenza vaccination Influenz a Vaccine (#1) [facility] Start: 03-05-2024 [facility] Start: 02-13-2024 Plain X-ray of right elbow XR elbow RT 2V [facility] Start: 02-13-2024 XR Elbow - right 2 Views [facility] Start: 01-29-2024 [facility] Start: 01-29-2024 [facility] Start: 01-14-2024 Plain X-ray of right elbow XR elbow RT 2V [facility] Start: 01-14-2024 XR Elbow - right 2 Views [facility] Start: 12-31-2023 Patient referral [facility] Work Phone: Start: 2022 Screening for malign ant neoplasm of breast Mammogram Screening [facility] Start: 03-23-2021 Influenza vaccination INFLUENZA (#1) [facility] Start: 2012 HPV TESTING HPV TESTING [facility] Start: 2003 PAP TESTING PAP TESTING [facility] Start: 2003 Screening for malign ant neoplasm of cervix Cervical Cancer Screening [facility] Start: 2001 Hepatitis B Vaccine (1 of 3 - 19+ 3-dose series) Hepatitis B Vaccine (1 of 3 - 19+ 3-dose series) [facility] Start: 2001 Urine microalbumin profile DTA P,TDAP,TD (1 - Tdap) [facility] Start: 2000 Anxiety Screening Anxiety Screening [facility] Start: 2000 Depression Screening Depression Scre ening [facility] Start: 2000 HEPATITIS C SCREENING HEPATITIS C SC [facility] Start: 2000 Hepatitis C screening Hepatitis C Sc [facility] Start: 2000 HIV SCREENING HIV SCREENING [facility] Start: 2000 HIV screening HIV Screening [facility] Start: 1994 Adult depression scr eening assessment DEPRESSION SCREENING [facility] Start: 1987 COVID-19 VACCINE (1) COVID-19 VACCIN E (1) [facility] Comprehensive metabo lic 1999 panel - Serum or Plasma [facility] Comprehensive metabo lic 1999 panel - Serum or Plasma [facility] Glucose measurement estimated from glycated hemoglobin [facility] Patient Education [facility] Work Phone: Patient referral [facility] Work Phone: RF Gastrointestinal tract upper Single view W air contrast PO [facility] US Gallbladder [facility] XR Elbow - right GE 3 Views [facility] Immunizations Immunization Date Immunization Notes Care Provider Fa cility 12-17-2023 tetanus toxoid, reduced diphtheria toxoid, and acellular pertussis vaccine, adsorbed DO Peter Blake Work Phone: [facility] 06-07-2022 influenza, injectable, quadrivalent, preservative free Peter Blake Other [facility] 04-09-2020 influenza, seasonal, injectable Peter Acs Other [facility] [employer] Other 03-10-2019 influenza, seasonal, injectable Patient Objection Peter Blake Other [facility] [employer] Other 02-18-2018 tetanus toxoid, reduced diphtheria toxoid, and acellular pertussis vaccine, adsorbed Peter Ahumada Other [facility] NEGATED: Highlighted row has not occurred!06-07-2022 influenza, seasonal, injectable Patient Objection Peter Acs Other [facility] [employer] Other NEGATED: Highlighted row has not occurred!04-09-2020 influenza, seasonal, injectable Peter Kuns Other [facility] Other NEGATED: Highlighted row has not occurred!03-10-2019 influenza, seasonal, injectable Patient Objection Peterluiza Shens Other [facility] [employer] Other Payers Date Payer Category Payer Self-pay [id number] 2022 Unknown 2018 Medicaid [employer] [id number] 2018-Present [phone] [address] [place] [address] Medicaid [id number] 2018 Medicaid [employer] [id number] 2018-2022 [address] [place] [address] Medicaid [id number] 2018 Private Health Insurance [facility] MEDICAID [id number] 2018 Medicaid [id number] 1982 Unknown [id number] 1982 Unknown [id number] .196 1982 Unknown [id number] 2.0.1.982614.3.579.2 .196 1982 Unknown [id number] .[id number] .1259 1982 Unknown [id number] 2.16.840.1.818212.3.579.2 .1259 1982 Unknown [id number] 2.16.840.1.807666.3.579.2 .1258 1982 Unknown [id number] 2.16.840.1.000747.3.579.2 .9 1982 Unknown [id number] 2.16.840.1.879854.3.579.2 .1258 1982 Unknown [id number] 2.16.840.1.038015.3.579.2 .1259 1959 Unknown [id number] Unknown [id number] Unknown [id number] 2.16.840.1.761367.3.579.2 .531 Unknown [id number] 2.16.840.1.825469.3.579.2 .531 Unknown [id number] 2.16.840.1.828160.3.579.2 .531 Unknown [id number] 2.16.840.1.591306.3.579.2 .531 Unknown [id number] 2.16.840.1.188495.3.579.2 .531 Unknown [id number] 2.16.840.1.085052.3.579.2 .531 Unknown [id number] 2.16.840.1.976947.3.579.2 .531 Unknown [id number] 2.16.840.1.863264.3.579.2 .531 Unknown [id number] 2.16.840.1.722983.3.579.2 .531 Unknown [id number] 2.16.840.1.346902.3.579.2 .531 Unknown [id number] 2.16.840.1.675453.3.579.2 .531 Unknown [id number] 2.16.840.1.676340.3.579.2 .531 Unknown [id number] 2.16.840.1.136468.3.579.2 .531 Unknown [id number] 2.16.840.1.879015.3.579.2 .531 Unknown [id number] 2.16.840.1.968499.3.579.2 .531 Social History Date Type Detail Facility Start: 03-03-2021 End: 01-03-2024 Tobacco smoking status NHIS Ex-smoker [facility] Work Phone: End: 06-22-2006 History of tobacco use Current smoker [facility] Work Phone: Start: 03-03-2021 End: 01-03-2024 Tobacco use and exposure Smokeless tobacco non-user [facility] Work Phone: Start: 10-13-2021 Alcohol intake Current drinker of alcohol (finding) [facility] Start: 03-03-2021 History SDOH Alcohol Comment occ [facility] Start: 03-03-2021 Tobacco Comment Smoked 1 pack a week, quit in 2005, can't remember start date [facility] Start: 1980 Sex Assigned At Not on file [facility] Start: 06-30-2020 End: 09-10-2024 Sex Assigned At [facility] Other Start: 11-25-2015 End: 02-15-2021 Tobacco smoking status [facility] Never smoked tobacco (finding) [facility] Start: 1980 Sex Assigned At Female [facility] Start: 11-25-2015 Alcoholic beverage intake Not Asked [facility] Start: 06-30-2020 End: 09-10-2024 History of Social function [facility] National Score (1-10 0), lower number is lower risk Not on file [facility] Start: 10-19-2020 End: 11-30-2020 Exposure to SARS-CoV-2 (event) Not sure [facility] End: 06-22-2006 History of tobacco use Cigarette Smoker [facility] Start: 02-04-2024 End: 09-10-2024 Alcoholic beverage intake Ex-drinker (finding) [facility] Start: 01-25-2023 Tobacco Comment Quit smoking 10 years ago [facility] Start: 01-25-2023 Alcohol Comment caffeine 1-2 cups/day [facility] Start: 01-18-2023 Gender identity Identifies as female gender (finding) [facility] Start: 01-18-2023 Sexual orientation Heterosexual (finding) [facility] Start: 06-05-2024 End: 09-09-2024 Sex Female (finding) [facility] Medical Equipment Procedure Code Equipment Code Equipment [...] Desired Activity /State Clinical Notes 11-04-2020 to 09-10-2024 Alber Haines, DO - 09/10/2024 3:30 PM José Miguel Moreno, ARRT - 05/22/2024 2:30 PM EDT Note Date & Type Note Facility 09-10-2024 History of Presen t illness Narrative Images from the original note were not included. Darling Khanna 1980 Darling Khanna is a 44 y.o. female presents with chief complaint of Right subclavicular shoulder mass (Lump under collar bone. It is soft, and does not hurt.) HPI: HPI Darling found a lump under her right clavicular bone. She saw it in the mirror on August 17 2024. It doesn't hurt and never got red. She states it feels like a marble SUBJECTIVE: MEDICATIONS: ALLERGIES Current Outpatient Medications Medication Instructions albuterol HFA (Proventil HFA) 90 mcg/act inhaler Every 4 hours HYDROcodone-acetaminophen ([place]) 5-325 MG tablet TAKE 1 TABLET BY MOUTH EVERY 4-6 HOURS NEEDED FOR PAIN FOR 7 DAYS ibuprofen 800 MG tablet TAKE 1 TABLET BY MOUTH THREE TIMES A DAY WITH FOOD OR MILK NEEDED levothyroxine (Synthroid, Levoxyl) 88 MCG tablet TAKE 1 TABLET BY MOUTH EVERY DAY IN THE MORNING ON EMPTY STOMACH FOR 90 DAYS Mary Lou 0.25-35 MG-MCG tablet 1 tablet, Daily Multiple Vitamin (multivitamin) tablet 1 tablet, Daily omeprazole (PriLOSEC) [address] capsule TAKE 1 CAPSULE BY MOUTH EVERY DAY 30 MINUTES BEFORE MORNING MEAL traMADol (Ultram) 50 MG tablet TAKE 1 TABLET BY MOUTH FOUR TIMES A DAY NEEDED Allergies Allergen Reactions Benzonatate GI intolerance Indomethacin Swelling PAST MEDICAL HISTORY: SOCIAL HISTORY SURGICAL HISTORY: Past Medical History: Diagnosis Date Appendicitis Asthma (CMS/HCC) Breast cyst, right Chicken pox COVID-19 Fibrocystic breast 2017 Fracture of arm Mononucleosis Personal history of other specified conditions ascus high risk Pneumonia Thyroid disorder (CMS/HCC) Vaginal infection Social History Tobacco Use Smoking status: Former Current packs/day: 0.00 Types: Cigarettes Quit date: 06/22/2006 Years since quittin.2 Smokeless tobacco: Never Tobacco comments: Quit smoking 10 years ago Substance Use Topics Alcohol use: Not Currently Comment: caffeine 1-2 cups/day Drug use: Yes Past Surgical History: Procedure Laterality Date BREAST LUMPECTOMY Left 01/11/2023 BREAST SURGERY 03/25/2018 CYST REMOVAL Branchial cyst removed from neck CYST REMOVAL Right 03/25/2018 right breast cyst HERNIA REPAIR 04/24/2017 Recurrent umbilical hernia repair MOUTH SURGERY UMBILICAL HERNIA REPAIR 01/29/2024 FAMILY HISTORY Family History Problem Relation Name Age of Onset Uterine cancer Mother Thyroid disease Other Hypertension Other Colon cancer Neg Hx Breast cancer Neg Hx Ovarian cancer Neg Hx REVIEW OF SYMPTOMS: Review of Systems Constitutional: Negative for diaphoresis and unexpected weight change. Lost 72 lbs intentionally HENT: Negative for hearing loss, tinnitus and voice change. Respiratory: Negative for shortness of breath. Cardiovascular: Negative for chest pain and palpitations. Musculoskeletal: Negative for arthralgias. Neurological: Negative for dizziness, seizures and headaches. All other systems reviewed and are negative. Hematological: Negative for adenopathy. Does not bruise/bleed easily. OBJECTIVE: Visit Vitals BP 120/70 Ht 6' Wt 205 lb BMI 27.80 kg/m Smoking Status Former BSA 2.17 m Physical Exam HENT: Head: Normocephalic. Cardiovascular: Rate and Rhythm: Normal rate and regular rhythm. Pulmonary: Effort: Pulmonary effort is normal. Breath sounds: Normal breath sounds. Chest: Comments: In the area between the clavicle and shoulder she has a superficial 1 cm mobile mass Abdominal: General: Abdomen is flat. Bowel sounds are normal. Palpations: Abdomen is soft. Skin: General: Skin is warm and dry. Neurological: Mental Status: She is alert. ASSESSMENT AND PLAN: Assessment/Plan Problem List Items Addressed This Visit Sebaceous cyst - Primary I explained that it is probably a sebaceous cyst. We discussed removal of the cyst under local anesthesia at the surgery center. She is in agreement and would like to schedule it. documented in this encounter [facility] 05-22-2024 History of Presen t illness Narrative Images from the original note were not included. Reason for Appointment: EMG Patient: Darling Khanna : 1980 EMG Computer: Delivery Hero Referring Physician: Dr. Robert Martinez EMG: BLE rn registry: Cayetano Moreno RT(R) Office Location: [place] Reason for EMG: c/o low back pain into left hip, pain in right knee, pain in bilateral heels. No hx of DM. Not on blood thinners. Comments: Procedure was explained to the patient who expressed understanding. Patient appeared to have tolerated the test well despite some discomfort due to the nature of the test. documented in this encounter [facility] 03-06-2024 Evaluation note Authored March 06, 2024 2: 47pm The above note written by Thuan STRINGER acting as human recorder, note dictated by Dr.Bryan Ahumada. [facility] Work Phone: [phone]) 230-267501-22-2024 Evaluation note* Encounter Date Diagnosis Assessment Notes Treatment Notes Treatment Clinical Notes Jul, Abnormal mammogram of left breast (ICD-10 - R92.8) [facility] 01-15-2024 Evaluation note* Encounter Date Diagnosis Assessment Notes Treatment Notes Treatment Clinical Notes Jul, Abnormal mammogram (ICD-10 - R92.8) [facility] 11-17-2023 Evaluation note* Encounter Date Diagnosis [...] modification. May, Acute bronchitis (ICD-10 - J20.9) [facility] 11-02-2023 Evaluation note* Encounter Date Diagnosis [...] exercise regimen; we will continue to monitor. [facility] 08-30-2023 Evaluation note* Encounter Date Diagnosis [...] been ordered to use for allergic reaction. [facility] Other 06-23-2023 Evaluation note* Encounter Date Diagnosis Assessment Notes Treatment Notes Treatment Clinical Notes Dec, Mass of upper outer quadrant of left breast (ICD-10 - N63.21) [facility] 11-03-2022 Evaluation note* Encounter Date Diagnosis [...] sent to the lab to determine pathology. [facility] 10-03-2022 Evaluation note* Encounter Date Diagnosis [...] excisional biopsy. 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 [facility] 03-28-2022 Evaluation note* Encounter Date Diagnosis [...] eye. These will be removed with hyfrecator. [facility] 03-24-2022 NoteHNO ID: [id number] Author: Kate Daniel MD Service: ? Author Type: Physician Type: Progress Notes Filed: 10/17/2021 1:50 PM Note Text: Assessment ESTABLISHED PATIENT Darling Khanna is a 40 year old female with a right posterior liver subcapsular fluid collection ? 03/03/2021: Patient presented to [facility] ER on 02/08/2021 for 2 [...] ? Received Records From:? 02/08/2021 ER Report [facility] 02/09/2021 ER Report [facility] 02/15/2021 PCP Office note ? Visited ER [...] gradually improving. US of ovaries yesterday at [facility]. Scheduled for upper GI at end of month. Gained?50 pounds since July?(was in [place] for 3 months, drank a lot); diagnosed [...] well. She did spend 3 months in [place] and did not have any issues, hospitalizations [...] which included preparing to see the patient, [id number] patient care and completing clinical documentation. Kate Daniel [facility]03-24-2022 Nurse Note* Jayne Aguila Ma - 10/13/2021 1:32 PM EDT What is the reason for your visit today? Follow up Who is your referring physician? Are you having poor oral intake? NO Have you had unintentional weight loss of 15 lbs/7 Kg in the last 3-6 months? NO Bowels: regular Wound: Temperature: No Drains: No documented [facility] History of Present illness Narrative* Kate Daniel MD - 10/13/2021 1:30 PM EDT Assessment ESTABLISHED PATIENT Darling Khanna is a 40 year old female with a right posterior liver subcapsular fluid collection 03/03/2021: Patient presented to [facility] ER on 02/08/2021 for 2 [...] collection Received Records From: 02/08/2021 ER Report [facility] 02/09/2021 ER Report [facility] 02/15/2021 PCP Office note Visited ER 4 [...] gradually improving. US of ovaries yesterday at [facility]. Scheduled for upper GI at end of month. Gained 50 pounds since July (was in [place] for 3 months, drank a lot); diagnosed [...] Procedure Laterality Date BX OF BREAST; INCISIONAL 2017 PAST SURGICAL HISTORY OF jaw surgery for [...] well. She did spend 3 months in [place] and did not have any issues, hospitalizations [...] which included preparing to see the patient, [id number] patient care and completing clinical documentation. Kate Daniel MD documented [facility] Evaluation note* Encounter Date Diagnosis Assessment [...] under 200lbs. We will continue to monitor. [facility] 09-16-2021 NoteHNO ID: [id number] Author: Kate Daniel MD Service: ? Author Type: Physician Type: Progress Notes Filed: 04/11/2021 3:19 PM Note Text: Assessment ESTABLISHED PATIENT Darling Khanna is a 40 year old female with a right posterior liver subcapsular fluid collection 03/03/2021: Patient presented to [facility] ER on 02/08/2021 for 2 [...] ? Received Records From:? 02/08/2021 ER Report [facility] 02/09/2021 ER Report [facility] 02/15/2021 PCP Office note ? Visited ER [...] gradually improving. US of ovaries yesterday at [facility]. Scheduled for upper GI at end of month. Gained 50 pounds since July (was in [place] for 3 months, drank a lot); diagnosed [...] which included preparing to see the patient, [id number] patient care and completing clinical documentation. Kate Daniel [facility]09-01-2021 NoteHNO ID: [id number] Author: William De León MD Service: ? [...] findings to suggest etiology Pre-conference plan (from [facility]): - Observation and serial imaging Imaging Review: - January 2021 - CT Abd/Pelvis and MRI Final Consensus Recommendation(s): - No clear etiology of right posterior subcapsular fluid collection - Fluid consistency is not consistent with a hematoma - No underlying masses or intrinsic liver pathology Final recommendation(s) differ from pre-conference plan? (Y/N) - No William De León MD [facility] Surgical Fellow [facility] NoteHNO ID: [id number] Author: Kate Daniel MD Service: ? Author [...] 40 year old female Patient presented to [facility] ER on 02/08/2021 for 2 [...] ? Received Records From: 02/08/2021 ER Report [facility] 02/09/2021 ER Report [facility] 02/15/2021 PCP Office note Visited ER 4 [...] gradually improving. US of ovaries yesterday at [facility]. Scheduled for upper GI at end of month. Gained 50 pounds since July (was in [place] for 3 months, drank a lot); diagnosed [...] was malignant. Seen by Dr. Haines on [facility], in [facility]; denies chemotherapy or radiation. Hernia repair Social [...] rhythm. Abdomen: Abdomen so (more content not included)...[facility] 12-28-2020 NoteHNO ID: [id number] Author: Tracey Hair Ma Service: ? Author Type: ? Type: Progress Notes Filed: 12/28/2020 4:25 PM Note Text: Dispensed XL/XXL Reaction brace for the Right knee. Dispensed by [employer]. Instructions were given on application/adjustments. She will f/u as scheduled/prn. Tracey Hair MA,[facility] 12-28-2020 NoteHNO ID: [id number] Author: Ishan Yusuf, DO Service: ? Author [...] PT if not improving Procedures Ishan Yusuf, [facility]05-11-2021 NoteHNO ID: [id number] Author: Ishan Yusuf, DO Service: ? Author [...] results and radiologist's interpretation, available in the [facility] health record. Images were reviewed with the [...] ROM as tolerated Follow-up in 3-4 weeks Nguyen Yusuf, [facility]05-11-2021 NoteHNO ID: [id number] Author: RT Suzanna(R) Service: ? Author Type: [employer] Type: Progress Notes Filed: 11/30/2020 3:44 PM [...] BY: RT Suzanna(R) November 30, 2020 3:43 [facility]04-29-2021 NoteHNO ID: [id number] Author: RT Victor M(Esteban) Service: ? Author Type: [employer] Type: Progress Notes Filed: 11/18/2020 3:47 PM [...] RT Victor M(R) November 18, 2020 3:45 [facility]04-29-2021 NoteHNO ID: [id number] Author: Ishan Yusuf, Service: ? Author Type: Physician Type: Progress [...] results and radiologist's interpretation, available in the [facility] health record. Images were reviewed with the [...] of depression Follow-up accordingly Procedures Ishan Yusuf, [facility]04-15-2021 NoteHNO ID: [id number] Author: Bob Millan Service: ? Author Type: Physician Type: Progress Notes Filed: 11/04/2020 2:12 PM Note Text: [facility] Office Visit Documentation Note [facility] REASON FOR VISIT / CHIEF COMPLAINT SERVICE [...] results and radiologist's interpretation, available in the [facility] health record. Images were reviewed with the patient/family members in the office today. My personal interpretation of the performed imaging is Has IA prox phalanx fracture at PIP ASSESSMENT / PLAN CLINICAL IMPRESSION / ASSESSMENT: (N80.166Q) Closed nondisplaced fracture of proximal phalanx of [...] plan as detailed above. Bob Millan D.O. [facility] Team Physician, [facility] Consulting Physician, [place] Sawyer [employer], Medical Insurance Claims Processor [phone] Patient verbalizes understanding and agrees with the treatment plan as detailed above.[facility] Liver pain- Primary Abdominal pain, other specified site documented in this encounter [facility] noteNo Domain [facility] Other Evaluation noteNo assessment information available [facility] Work Phone: evaluation note* Diagnosis Onset Date Resolution Status Ground-level fall acute Laceration of knee, left acu te Right elbow pain acute [facility] Work Phone: evaluation note* Diagnosis Onset Date Resolution Status Ground-level fall acute Laceration of knee, left acu te Right elbow pain acute Elbow fracture, right acute Hypothyroidism acute Laceration of knee, left acu te [facility] Work Phone: evaluation note* Diagnosis Onset Date Resolution Status Ground-level fall acute Laceration of knee, left acu te Right elbow pain acute Elbow fracture, right acute Hypothyroidism acute Laceration of knee, left acu te Fracture of radial neck, right, closed acute [facility] Work Phone: evaluation note* Diagnosis Onset Date Resolution Status Ground-level fall acute Laceration of knee, left acu te Right elbow pain acute Elbow fracture, right acute Hypothyroidism acute Laceration of knee, left acu te Fracture of radial neck, right, closed acute Fracture of radial neck, right, closed acute [facility] Work Phone: evaluation note* Diagnosis Onset Date Resolution Status Ground-level fall acute Laceration of knee, left acu te Right elbow pain acute Elbow fracture, right acute Hypothyroidism acute Laceration of knee, left acu te Fracture of radial neck, right, closed acute Fracture of radial neck, right, closed acute Fracture of radial neck, right, closed acute [facility] Work Phone: evaluation note* Author Hyacinth Hutton [facility] Authored March 06, 2024 2: 47pm The above note written by Thuan STRINGER acting as human recorder, note dictated by Dr.Bryan Ahumada. [facility] Work Phone: Evaluation note* Diagnosis Closed nondisplaced fracture of proximal phalanx of left little finger, initial encounter documented [facility] this encounter [facility] Diagnosis Lumbosacral radiculopathy- Primary Thoracic or lumbosacral neuritis or radiculitis, unspecified documented in this encounter [facility] HealthcareEvaluation note* Diagnosis Onset Date Resolution Status Admit Date Bilateral foot pain acute Novem 2023 2:36pm Fatty liver acute May 2:36pm GERD (gastroesophageal reflu x disease) acute June 10, 2 024 2:36pm Hypothyroidism acute May 232023 2:36pm Pre-diabetes acute May 2:36pm [facility] Work Phone: Evaluation note* Author Hyacinth Hutton [facility] Authored September 09, 2024 2:43pm The above note written by SIOMARA Bolden acting as human recorder, note dictated by Dr. Peter Ahumada. [facility] Work Phone: Evaluation note* Diagnosis Sebaceous cyst- Primary documented in this encounter [facility] Narrative - Reported* Type Description Date Medical History asthma Medical History HPV Medical History f/u with Health Dept for [employer] [employer] needs Medical History Inclusion cyst Surgical History jaw surgery for underbite Surgical History breast biopsy 2018 Hospitalization History see surgical hx [facility] Other Hospital Discharge instructions Additional Instructions [place] diet as tolerated Increase oral fluids Take the diclofenac twice a day as needed for pain and inflammation Take oxycodone every 6 hours for severe pain Follow-up with your family doctor for recheck I also gave you the number for gastroenterology Return to the ER for more severe pain high fever vomiting or any other concerns [facility] Work Phone: Hospital Discharge instructions Additional Instructions [facility] Work Phone: Hospital Discharge instructions [...] directed for pain unless a prescription was provided.[facility] Work Phone: Reason for visit Narrative* Other Medical (Routine) - Closed Specialty Diagnoses / Procedures Referred By Contac t Referred To Contact Neurology Diagnoses Sciatica, left side Procedures IN NEEDLE EMG EA EXTREMTY W/PARASPINL AREA COMPLETE IN NERVE CONDUCTION STUDIES 9-10 STUDIES Robert Martinez MD [address] [place] [address] [place] [address] Phone: tel: fax: Shakeel Rios MD [address] [place] [address] Phone: tel: fax: Referral ID Status Reason Start Date Expiration Date V isits Requested Visits Authorized [id number] Closed Perform Procedure 05/13/2024 11/09/2024 1 1 [...] 2024 2:36pm Pre-diabetes June 10, 2024 2:36pm Chief Complaint Admit Date sciatica, Plantar fascial fibromatosis D ecember 2023 2:30pm lump on right side under collar bone Feb ruary 2024 2:14pm Reason for Visit Admit Date Body mass index 27.0-27.9, adult Februar y 2024 2:14pm Lump September 09, 2024 2:14pm Additional Source Comments INFORMATION SOURCE (unrecogn ized section and content) DATE CREATED AUTHOR 02/25/2021 [facility] pital DATE CREATED AUTHOR AUTHOR'S ORGANIZ ATION 10/18/2021 [facility] DATE CREATED AUTHOR AUTHOR'S ORGANIZ ATION 07/19/2024 [facility] DATE CREATED AUTHOR AUTHOR'S ORGANIZ ATION 09/09/2024 [facility] DATE CREATED AUTHOR AUTHOR'S ORGANIZ ATION 09/12/2024 [facility] dical Specialists EPIC Source Comments (unrecognize d section and content) In the event this informatio n is protected by the Federal Confidentiality of Alcohol and Drug Abuse Patient Records regulations: The Federal rules restrict any use of the information to criminally investigate or prosecute any alcohol or drug abuse patient.[facility] Hospital[facility] the event this information is protected by the Federal Confidentiality of Alcohol and Drug Abuse Patient Records regulations: The Federal rules restrict any use of the information to criminally investigate or prosecute any alcohol or drug abuse patient.[facility] HospitalIn the event this information is protected by the Federal Confidentiality of Alcohol and Drug Abuse Patient Records regulations: The Federal rules restrict any use of the information to criminally investigate or prosecute any alcohol or drug abuse patient.[facility] Reason for Visit (unrecogniz ed section and content) Reason Comments Established Patient Reason Comments Right subclavicular shoulder mass Lump u nder collar bone. It is soft, and does not hurt. Care Teams (unrecognized sec tion and content) Team Status: Active Member Role Status Dates Peter Ahumada DO Primary Care Provider Active Team Status: Inactive Member Role Status Dates Peter Ahumada DO Primary Care Provider, Attending Provi dani Active Manager Play Relationship Specialty Start Date End Date Peter Ahumada DO [address] [place] [address] PCP - General Family Practice 11/22/15 Team Status: Inactive Member Role Status Dates Peter Ahumada DO Primary Care Provider Active Alba Marshall , ARCHITECTURAL DRAFTSMAN- Emergency Provider Active Team Status: Inactive Member Role Status Katarina Ahumada DO Primary Care Provider Active Koki Elkins ([facility]) , ENGINE DESIGNER Attending Provider Active Team Status: Inactive Member Role Status Dates Peter Ahuamda DO Attending Provider Active Start: May 24, [...] 2023 Team Status: Active Member Role Status Katarina Ahumada DO Primary Care Provider Active Sta [...] Role Status Katarina Ahumada DO Primary Care Provider Active Sta [...] Sta rt: February 13, 2024 Chas Meza DO Attending Provider Active S tart: February 13, 2024 Team Status: Inactive Member Role Status Dates Peter Ahumada DO Primary Care Provider Active Sta rt: February 13, 2024 End: February 13, 2024 Chas Meza DO Attending Provider Active S tart: February [...] March 12, 2024 End: March 12, 2024 Manager Play Relationship Specialty Start Date End Date Peter Ahumada DO [address] [place] [address] PCP - General Family Medicine 11/22/15 Team Status: Inactive Member Role Status Dates Peter Ahumada DO Primary Care Provider Active Sta rt: May 19, 2024 End: May 19, 2024 Robert Martinez DPM MS Attending Provider Active Start: May 19, 2024 End: May 19, 2024 Manager Play Relationship Specialty Start Date End Date Peter Ahumada MD [facility] [place]note 2] [place] [facility] [place] [address] PCP - General 01/25/23 Manager Play Relationship Specialty Start Date End Date Peter Ahumada MD [address] [place] [facility] [address] PCP - General 01/25/23 Team Status: Inactive [...] June 10, 2024 End: June 10, 2024 Team Status: Inactive Member Role Status Dates Peter Ahumada DO Primary Care Provider Active Sta rt: July 17, 2024 End: July 17, 2024 Robert Martinez DPM MS Attending Provider Active Start: July 17, 2024 End: July 17, 2024 Team Status: Inactive Member Role Status Dates Peter Ahumada DO Primary Care Provide r, Attending Provider Active Start: September 09, 2024 End: September 09, 2024 Manager Play Relationship Specialty Start Date End Date Peter Ahumada MD [facility] [place][note 2] [place] [address] [facility] General 01/25/23 Goals (unrecognized section and content) Goals may [...] BE BASED ON THE PRIMARY CLINICAL RECORDS. [facility] [employer] [facility]. provides no warranty or guarantee of the accuracy or completeness of information in this document.
--- NOTE | 2024-09-17 07:49 | XR_ITS ---
The [address] [address] Patient Name: DES KHANNA MRN: [id number] date: 1980 Sex: F Assigned Patient Location: [facility] Current Patient Location: [facility] Accession/Order Number: [id number] Exam Date: 09/17/2024 10:29 Report Date: 09/17/2024 10:38 At the request of: JULI KING NP Procedure: XR hip LT min 2V CLINICAL DATA: Low back and left hip pain. LUMBAR SPINE - 6 views: COMPARISON: CT 02/22/2021 AP, lateral neutral, flexion and extension and both oblique views were obtained. 6 nonrib-bearing lumbar-type vertebrae are present. The 6th will be labeled transitional. There is slight thoracolumbar dextroscoliotic curvature. There is no acute compression fracture. There is approximately 6 mm anterolisthesis of the transitional vertebra on the sacrum. This does not change significantly with flexion or extension. There is disc space narrowing at the lumbosacral junction. Minor endplate spurring is present. There is lower lumbar facet hypertrophy. There is sclerosis at the lower pedicles and spondylolysis at the transitional vertebra on the left is not excluded. The sacroiliac joints are maintained and there is mild sclerosis. There are no paraspinal soft tissue abnormalities. XR/XR lumbar spine 6V w bending IMPRESSION: TRANSITIONAL VERTEBRA. SUBTLE SCOLIOSIS AND DEGENERATIVE CHANGES, GREATEST AT THE LUMBOSACRAL JUNCTION. LEFT HIP - 2 views COMPARISON: CT 02/22/2021 AP and frog-lateral views were obtained. There is no acute fracture or dislocation. The joint space is maintained. No hypertrophy is seen. No soft tissue abnormalities are noted. IMPRESSION: NO ACUTE BONY FINDINGS. Impression dictated by: Ayleen Zheng M.D.09/17/2024 10:38 AM Dictation Location: [place] [address] Electronically authenticated by: [id number] Y Date: 09/17/2024 10:38
--- NOTE | 2024-09-17 07:49 | XR_ITS ---
The [address] [address] Patient Name: DES KHANNA MRN: [id number] date: 1980 Sex: F Assigned Patient Location: [facility] Current Patient Location: [facility] Accession/Order Number: [id number] Exam Date: 09/17/2024 10:29 Report Date: 09/17/2024 10:38 At the request of: JULI KING NP Procedure: XR hip LT min 2V CLINICAL DATA: Low back and left hip pain. LUMBAR SPINE - 6 views: COMPARISON: CT 02/22/2021 AP, lateral neutral, flexion and extension and both oblique views were obtained. 6 nonrib-bearing lumbar-type vertebrae are present. The 6th will be labeled transitional. There is slight thoracolumbar dextroscoliotic curvature. There is no acute compression fracture. There is approximately 6 mm anterolisthesis of the transitional vertebra on the sacrum. This does not change significantly with flexion or extension. There is disc space narrowing at the lumbosacral junction. Minor endplate spurring is present. There is lower lumbar facet hypertrophy. There is sclerosis at the lower pedicles and spondylolysis at the transitional vertebra on the left is not excluded. The sacroiliac joints are maintained and there is mild sclerosis. There are no paraspinal soft tissue abnormalities. XR/XR hip LT min 2V IMPRESSION: TRANSITIONAL VERTEBRA. SUBTLE SCOLIOSIS AND DEGENERATIVE CHANGES, GREATEST AT THE LUMBOSACRAL JUNCTION. LEFT HIP - 2 views COMPARISON: CT 02/22/2021 AP and frog-lateral views were obtained. There is no acute fracture or dislocation. The joint space is maintained. No hypertrophy is seen. No soft tissue abnormalities are noted. IMPRESSION: NO ACUTE BONY FINDINGS. Impression dictated by: Ayleen Zheng M.D.09/17/2024 10:38 AM Dictation Location: [place] [address] Electronically authenticated by: [id number] Y Date: 09/17/2024 10:38
== END 2024-09-17 07:21 | disposition home or self-care (01) ==
LOC: RAD 07:24
PROVIDERS: PCP Family Medicine; Visit Provider Nurse Practitioner
DX: M54.50 Low back pain, unspecified (principal); M25.552 Pain in left hip; M51.369 Other intervertebral disc degeneration, lumbar region without mention of lumbar back pain or lower extremity pain
CPT/HCPCS: 72114; 73502

== ENCOUNTER 2024-09-22 12:17 | Outpatient (OUT) | payer OTHER, SELFPAY ==
--- NOTE | 2024-09-22 13:04 | P.CN_ITS ---
Consult Note: HPI Data of Consult Patient: known to practice within the last 3 years Consult date: 09/22/24 Requesting Physician: Christos Manrique MD Primary Care Provider: Peter Lozano DO Consult Narrative Reason for consult: left hip, low back and leg pain Narrative: 44yof who presents for assessment. continues to have low back, left hip, leg pain. xr reviewed, shows 5mm listhesis of L6 on sacrum. tender over left greater troch. continues in a series of provider directed home exercises >6 weeks, without benefit. uses mobic. denies adverse med side effects. cc:: CC: Christos Manrique MD Review of Systems ROS Status of ROS 10 or more systems reviewed and unremark able except as noted in history and below [facility] History Simple cyst of breast ?N60.09 - Solitary cyst of unspecified breast (ICD-10) Sebaceous cyst ?L72.3 - Sebaceous cyst (ICD-10) Low back pain ?M54.50 - Low back pain, unspecified (ICD-10) Hypothyroid ?E03.9 - Hypothyroidism, unspecified (ICD-10) Asthma ?J45.909 - Unspecified asthma, uncomplicated (ICD-10) Surgical History S/P hernia repair ?Z98.890 - Other specified postprocedural states (ICD-10) ?Z87.19 - Personal history of other diseases of the digestive system (ICD-10) History of mandibular surgery ?Z98.890 - Other specified postprocedural states (ICD-10) Meds Home Medications and Allergies Home Medications ?Medication ?Instructions ?Recorded ?Confirmed ?Type esomeprazole magnesium 40 mg 40 mg PO DAILY 06/23/24 09/01/24 History capsule,delayed release glow gummies 06/23/24 History levothyroxine 88 mcg capsule 88 mcg PO DAILY 06/23/24 09/01/24 History meloxicam 15 mg tablet 15 mg PO DAILY 06/23/24 09/01/24 History esteban control 06/23/24 History multivitamin-ferrous 1 tab PO DAILY 06/23/24 09/01/24 History fumarate-folic acid 18 mg-400 mcg tablet (Centrum Women) bf-tc-jaqgah 68 mcg DFE-caff 95 ea PO 06/23/24 History ud-jmhl-byiam-tea oral effer pwdr pack (ATP Ignite) albuterol sulfate 90 mcg/actuation 2 puff inhalation PRN shortness of 09/01/24 History aerosol inhaler breath or wheezing baclofen 10 mg tablet 10 mg PO BID PRN muscle spasm #60 09/11/24 Rx tabs meloxicam 7.5 mg tablet 7.5 mg PO BID PRN pain #60 tabs 09/11/24 Rx Allergies Allergy/AdvReac Type Severity Reaction Status Date / Time benzonatate AdvReac Mild Diarrhea Verified 06/23/24 15:00 indomethacin AdvReac Mild swelling Verified 06/23/24 15:00 Exam Narrative Exam Narrative: Psych-alert and oriented x 3. Attentive and appropriate, constitutionally normal, displays normal mood and affect per situation. There are no obvious deficits in memory, reasoning, or intellect.? Skin-no obvious rashes, bruising, erythema noted to the patient's area of pain.? Extremities- extremities are warm with minimal edema and palpable pulses. Lumbar-tenderness to palpation noted in the lumbar spine and paraspinal m usculature. Pain is elicited with flexion, extension, and lateral rotation of the lumbar spine. Range of motion is diminished with these motions. Facet loading maneuvers are positive. Strength-noted to be unremarkable Sensory-no notable sensory deficits in the bilateral lower extremities to touch or pinprick in all dermatomal distributions with the exception to decreased sensation to the left L4, 5 dermatomal distribution Coordination remains intact.? Gait remains non-antalgic Assessment and Plan Assessment and Plan (1) Lumbar stenosis with neurogenic claudication: (2) Greater trochanteric bursitis of left hip: Plan 44yof who presents for assessment. continues to have left hip pain, so will proceed with troch bursa injection on left side. in terms of xr findings and low back and leg symptoms, will obtain lumbar mri without contrast. she is in agreement. meds reviewed, no changes. follow up after imaging. Procedure: Left greater trochanteric bursa injection Medications: Bupivacaine 0.25% 4cc, depomedrol 40mg I explained the details of the procedure to the patient including the risks, benefits and alternatives. We had an informed discussion and the patient verbalized understanding and signed the consent form. All questions were answered appropriately.? A time out was performed.? The skin overlying the left lateral hip was prepped with alcohol x3. A sterile syringe containing the above medication was attached to a 25 gauge, 3.5 inch needle under strict aseptic technique. The greater trochanter and point of tenderness was palpated. At this point, the needle was then advanced through the subcutaneous tissue down to os. The needle was withdrawn slightly and the contents of the syringe were gently injected without any resistance. The needle was removed and pressure was applied to the injection site to decrease the incidence of ecchymosis and hematoma formation.? A sterile bandage was applied. Post procedural instructions were given to the patient.
== END 2024-09-22 12:18 | disposition home or self-care (01) ==
LOC: PM 12:17
PROVIDERS: PCP Family Medicine; Visit Provider Anesthesiology
DX: M48.062 Spinal stenosis, lumbar region with neurogenic claudication (principal); M70.62 Trochanteric bursitis, left hip
CPT/HCPCS: 20610; J0665; J1010

== ENCOUNTER 2024-11-03 06:44 | Outpatient (OUT) | payer OTHER, SELFPAY ==
--- NOTE | 2024-11-03 06:48 | MR_ITS ---
[facility] [place] [address] Patient Name: DES KHANNA MRN: [id number] date: 1980 Sex: F Assigned Patient Location: MRI Current Patient Location: MRI Accession/Order Number: [id number] Exam Date: 11/03/2024 10:27 Report Date: 11/03/2024 10:43 At the request of: ELLIS CARROLL MD Procedure: MR lumbar spine wo con MRI LUMBAR SPINE WITHOUT CONTRAST CLINICAL DATA: Chronic low back and bilateral lower extremity pain. COMPARISON: Plain films Multiecho imaging in the axial and sagittal plane was performed without contrast. There is 3 - 4 mm of spondylolisthesis at the lumbosacral junction where there is also degenerative endplate signal change. Alignment is otherwise maintained. There are no acute compression fractures or marrow edema. The conus medullaris is within normal limits for caliber, position and signal intensity. No paraspinal soft tissue abnormalities are identified. At the lumbosacral junction, there is narrowing of the disc space. There is minor annular disc bulging, slightly asymmetric toward the left. There is subtle thecal sac effacement. There is minor inferior foraminal encroachment on the left. At the remaining lumbar levels, no disc bulge or herniation is identified. No central or foraminal stenosis is noted. MR/MR lumbar spine wo con IMPRESSION: MILD DISCO VERTEBRAL DEGENERATIVE CHANGE AT THE LUMBOSACRAL JUNCTION. NO SIGNIFICANT STENOSIS Impression dictated by: Ayleen Zheng M.D.11/03/2024 10:43 AM Dictation Location: [place] [address] Electronically authenticated by: [id number] Y Date: 11/03/2024 10:43
--- OUTSIDE RECORDS SUMMARY | 2024-11-03 06:48 | XMS_ITS | CCD ---
Author Organization [facility] Care Team Providers Care Manager Medicare Marketing Name Role Phone DR PETER AHUMADA Primary Care Unavailable DR CHETAN RUDD Admitting Unavailable DR CHETAN RUDD Consulting Unavailable DR CHETAN RUDD Attending Unavailable Luz Marina Hernandez Consulting Unavailable Peter Ahumada DO Primary Care Provider Peter Ahumada Unavailable Blake, DO Green Primary Care Provider Blake, DO Green Attending Provider [phone] Acs, DO Green Primary Care Provider Acs, DO Peter Attending Provider Kuns, DO Peter Primary Care Provider Acs, DO Peter Attending Provider Rolando, [facility] [place] [place] Emergency Provider Sevreo ([facility] [place] DELIA Orellana Attending Provider Blake, DO Green Primary Care Provider [phone] Kuns, DO Peter Attending Provider Kuns, DO Peter Primary Care Provider [phone] Acs, DO Peter Attending Provider [phone] Kuns, DO Peter Primary Care Provider Acs, DO Peter Attending Provider Kuns, DO Peter Primary Care Provider [phone] Blake, DO Peter Referring Provider [phone] Self, Referral Attending Provider Unavailable MD Igor Rudd Emergency Provider Kuns, DO Peter Attending Provider DO Alber Haines Attending Provider DO Chas Meza Attending Provider Kuns, DO Peter Primary Care Provider [phone] Blake DO, Peter P Primary Care Provider Kuns, DO Peter Primary Care Provider Kuns, DO Peter Attending Provider JEAN CARLOS Martinez Attending Provider Peter Ahumada MD Primary Care Provider [phone] Blake HOOVER, Peter Primary Care Provider [phone] Blake HOOVER, Peter Attending Provider Robert Martinez DPM Attending Provider [phone] Blake HOOVER, Peter Primary Care Provider Robert Martinez DPM Attending Provider [phone] Burton DAO, Christos Masters Attending Unavailable Burton DAO, Andrius Vytautjeff Attending Unavailable Burton DAO, Vinnyrius Vtravisautjeff Attending Unavailable Blake HOOVER, Peter Primary Care Provider Robert Martinez DPM Attending Provider Yancy HOOVER, Alber Attending Provider [phone] Peter Ahumada Primary Care Unavailable Robert Martinez Attending Unavailable Robert Martinez Admitting Unavailable Yancy, Alber Attending Unavailable Itclary, Alber Admitting Unavailable Peter Ahumada Primary Care Unavailable Peter Ahumada Referring Unavailable Self, Referral Attending Unavailable Self, Referral Admitting Unavailable Acs Peter Primary Care Unavailable Peter Ahumada Attending Unavailable Blake Peter Admitting Unavailable Acs, Peter Primary Care Unavailable Itzkosydni, Alber Attending Unavailable Itzrk, Alber Admitting Unavailable Kuns, Peter Primary Care Unavailable Chas Meza Attending Unavailable Chas Meza A Admitting Unavailable Kuns, Peter Primary Care Unavailable Chas Meza A Attending Unavailable Elbert Mezain A Admitting Unavailable Kuns, Peter Primary Care Unavailable Itzkowitz, Alber Attending Unavailable Itzkowitz, Alber Admitting Unavailable Kuns, Peter Primary Care Unavailable Igor Rudd Attending Unavailable Igor Rudd Admitting Unavailable Kuns, Peter Primary Care Unavailable Kuns, Peter Attending Unavailable Kuns, Peter Admitting Unavailable Kuns, Peter Primary Care Unavailable Kuns, Peter Attending Unavailable Kuns, Peter Admitting Unavailable Kuns, Peter Primary Care Unavailable Itzkowitz, Alber Attending Unavailable Itzkowitz, Alber Admitting Unavailable Kuns, Peter Primary Care Unavailable Robert Martinez Attending Unavailable Robert Martinez Admitting Unavailable Acs, Peter Primary Care Unavailable Robert Martinez Attending Unavailable Robert Martinez Admitting Unavailable ITZKOWITZ, ALBER H Attending Unavailable ITZKOWITZ, ALBER H Attending Unavailable ITZKOWITZ, ALBER H Attending Unavailable ITZKOWITZ, ALBER H Attending Unavailable ITZKOYAHIRTZ, ALBER H Attending Unavailable ITZKOSYDNI, ALBER H Attending Unavailable RAHUL CASTILLO Attending Unavailable ROBERT MARTINEZ Referring Unavailable Allergies Allergy Classification Reported Allergen(s) Allergy Type Date of Onset Reaction(s) Facility (12 sources) Indomethacin Drug Allergy 8 Swelling [facility] (13 sources) benzonatate Drug Allergy 4 diarrhea [facility] (6 sources) benzonatate Drug Allergy 3 GI intolerance [facility] Healthcare Work Phone: (1 source) benzonatate Drug Allergy [address] [place] [address] Repository (1 source) Indomethacin Drug Allergy [address] [place] [address] Repository Medications Current Medications Medication Drug Class(es) Dates Sig (Normalized) Sig (Original) acetaminophen 325 mg / HYDROcodone bitartrate 5 mg oral tablet (20 sources) Opioid Agonist Start: 12-31-2023 End: 02-13-2024 take 1 tablet by mouth every four to six hours as needed for pain HYDROcodone-aceta minophen (Selfridge) 5-325 MG tablet TAKE 1 TABLET BY MOUTH EVERY 4-6 HOURS NEEDED FOR PAIN FOR 7 DAYS 12/31/2023 Active Start: 12-19-2023 End: 12-19-2023 take 1 tablet by mouth every four to six hours as needed for pain Hydrocodone-Acetaminophen 5-325 mg table t Discontinued 1 TAB PO EVERY 4-6 HOURS as needed for Pain 19 05December 19, 2023 December 19, 2023 9:39am Start: 12-19-2023 End: 12-19-2023 take 1 tablet by mouth every four to six hours as needed for pain Hydrocodone-Acetaminophen 5-325 mg table t Discontinued 1 TAB PO EVERY 4-6 HOURS as needed for Pain 28 December 19, 2023 December 19, 2023 12:03pm Start: 12-17-2023 End: 12-31-2023 take 1 tablet by mouth every four to six hours as needed for pain Hydrocodone-Acetaminophen 5-325 mg table t Discontinued 1 TAB PO EVERY 4-6 HOURS as needed for Pain 16 02December 19, 2023 December 31, 2023 7:42am Start: 04-24-2017 End: 03-26-2018 take 2 tablets by mouth every four to six hours as needed for pain Hydrocodone-Acetaminophen (Selfridge) 5-325 mg tablet Discontinued 2 TAB PO EVERY 4-6 HOURS as needed for pain April 24, 2017 12:00am March 26, 2018 9:04am [id number] 200 actuat albuterol 0.09 mg/actuat metered dose inhaler (20 sources) beta2-Adrenergic Agonist Start: 12-19-2023 take 2 puff(s) by inhalation every four hours as needed Albuterol Sulfate (Proair Hfa) 90 mcg/actuation HFA aerosol inhaler Active 2 PUFF INHALATION Every 4 hours December 19, 2023 12:00am FreeTextSi puffs as needed Inhalation every 4 [...] esomeprazole 40 mg delayed release oral capsule (8 sources) Proton Pump Inhibitor Start: 06-10-2024 take 1 capsule by mouth once daily Esomeprazole Magnesium (Nexium) 40 mg capsule,delayed release(DR/EC) Active 40 MG PO Daily June 10, 2024 1:00am Start: 03-14-2024 End: 06-10-2024 take 1 capsule by mouth twice daily Esomeprazole Magnesium (Nexium) 40 mg capsule,delayed release(DR/EC) Discontinued 40 MG PO Twice daily March 14, 2024 12:00am June 10, 2024 4:43pm Norgestimate-Ethinyl Estradiol (20 sources) Progestin, Estrogen Start: 12-19-2023 take 1 tablet by mouth once daily at bedtime Norgestimate-Ethinyl Estradiol 0.25-35 mg-mcg tablet Active 1 TAB PO Daily at bedtime December 19, 2023 12:00am Start: 12-19-2023 take 1 tablet by yoana th once daily at bedtime Norgestimate-Ethinyl Estradiol 0.25-35 [...] sources) Nonsteroidal Anti-inflammatory Drug Start: 3 End: 4 take 1 tablet by mouth three times daily at mealtime as needed ibuprofen 800 MG tablet TAKE 1 TABLET BY MOUTH THREE TIMES A DAY WITH FOOD OR MILK NEEDED 10/20/2022 Active Start: 03-12-2020 End: 12-17-2023 take 1 tablet by mouth every eight hours as needed for pain Ibuprofen 600 mg tablet Discontinued 600 MG PO Q8H as needed for pain March 12, 2020 12:00am December 17, 2023 7:36am Start: 03-26-2018 End: 03-12-2020 Ibuprofen 800 mg Tablet Disc ontinued 800 MG PO As Directed as needed for Pain March 26, 2018 12:00am March 12, 2020 8:22pm levothyroxine sodium 0.088 mg oral tablet (20 [...] Tablet Discontinued 75 MCG PO Daily April 24, 2017 12:00am December 19, 2023 2:04pm Start: 04-24-2017 End: 12-19-2023 take 75 ug by mouth once daily Levothyroxine Discontin ued 75 MCG PO Daily April 24, 2017 12:00am December 19, 2023 2:04pm Comment on above: Take 75 mcg by mouth once daily. Multiple Vitamin (multivitamin) tablet (6 sources) take 1 tablet by mouth in the morning Multiple Vitamin (multivitamin) tablet Take 1 tablet by mouth in the morning. Active Multivitamin (Daily Multi-Vitamin) tablet (19 sources) Start: 12-19-2023 take 1 tablet by [...] Multivitamin With Minerals (Hair,Skin And Nails) tablet (19 sources) Start: 03-06-2024 take 1 tablet by [...] on above: TAKE 1 CAPSULE BY MO UTH EVERY DAY 30 MINUTES BEFORE MORNING MEAL [...] HOURS as needed for pain 20 January 29, 2024 12:00am February 13, 2024 3:12pm Start: 03-26-2018 End: 03-31-2018 take 1 tablet by mouth every six hours as needed for pain Acetaminophen-Codeine (Tylenol-Codeine #3) 300-30 mg tablet Discontinued 1 - 2 TAB PO Q6H as needed for pain 30 5 March 26, 2018 12:00am March 30, 2018 12:00am March 31, 2018 12:02am acetaminophen 325 mg / oxyCODONE hydrochloride 5 mg oral tablet (20 sources) Opioid Agonist Start: 11-01-2022 End: 12-17-2023 take 1 tablet by mouth every six hours as needed for pain Oxycodone-Acetaminophen 5-325 mg tablet Discontinued 1 TAB PO Q6H as needed for pain 12 3 November 01, 2022 December 17, 2023 7:36am Albuterol Sulfate (Proventil Hfa) 90 mcg/actuation Hfa Aerosol Inhaler (20 sources) Start: 04-24-2017 End: 12-19-2023 take 1 puff(s) by inhalation every four to six hours as needed for wheezing Albuterol Sulfate (Proventil Hfa) 90 mcg/actuation Hfa Aerosol Inhaler Discontinued 1 PUFF INHALATION EVERY 4-6 HOURS as needed for Shortness Of Breath Or Wheezing April 24, 2017 12:00am December 19, 2023 2:03pm Start: 04-24-2017 End: 12-19-2023 take 1 puff(s) [...] tablet Discontinued 0 PO .COMPLEX 6 November 30, 2023 12:00am December 17, 2023 7:36am For 250 mg dose pack: take 500 [...] Discontinued 1 APPLIC TOPICAL Twice daily December 19, [...] PO Four times daily 40 10 February 08, 2021 12:00am November 01, 2022 10:30am cholecalciferol 0.025 mg oral capsule (19 sources) Vitamin D Start: 12-19-2023 End: 12-27-2023 take 1 capsule by mouth once daily Cholecalciferol (Vitamin D3) 25 mcg (1,000 unit) capsule Discontinued 1 CAP PO Daily December 19, 2023 12:00am December 27, 2023 2:16pm FreeTextSi capsule Orally Once a day; Note: Source Status: Taking; Provider: Blake Green ( ) diclofenac sodium 75 mg delayed release oral tablet (20 sources) Nonsteroidal Anti-inflammatory Drug Start: 12-19-2023 End: 12-27-2023 take 1 tablet by mouth twice daily Diclofenac Sodium 75 mg tablet,delayed release (DR/EC) Discontinued 75 MG PO Twice daily December 19, 2023 12:00am December 27, 2023 2:17pm Start: 11-01-2022 End: 12-17-2023 take 1 tablet by mouth twice daily as needed for pain Diclofenac Sodium 75 mg tablet,delayed release (DR/EC) Discontinued 75 MG PO Twice daily as needed for pain November 01, 2022 12:00am December 17, 2023 7:36am Start: 03-09-2021 Pennsaid 2 % 2 pumps Externally Twice a day samples provided Feb, Active furosemide 40 mg oral tablet (20 sources) Loop Diuretic Start: 12-19-2023 End: 12-27-2023 take 1 tablet by mouth once daily Furosemide (Lasix) 40 mg tablet Discontinued 40 MG PO Daily December 19, 2023 12:00am December 27, 2023 2:17pm FreeTextSi tablet Orally Once a day; Note: [...] 50 Plus Probiotic) 4 billion cell capsule (19 sources) Start: 12-19-2023 End: 12-27-2023 Lactobacillus Combination [...] as needed for nausea and vomiting February 08, 2021 12:00am November 01, 2022 10:30am phenazopyridine hydrochloride 200 mg oral tablet (20 sources) Start: 02-08-2021 End: 11-01-2022 take 1 tablet by mouth three times daily as needed for pain Phenazopyridine (Pyridium) 200 mg tablet Discontinued 200 MG PO Three times daily as needed for pain February 08, 2021 12:00am November 01, 2022 10:30am administer with a full glass of water with each meal microencapsulated potassium chloride 10 meq extended release oral tablet (20 sources) Start: 12-19-2023 End: 12-27-2023 take 1 tablet by mouth once daily Potassium Chloride 10 mEq tablet,ER particles/crystals Discontinued 10 MEQ PO Daily December 19, 2023 12:00am December 27, 2023 2:18pm Start: 11-05-2020 take 1 tablet by yoana th once daily as needed K-Dur 10 meq 1 tablet orally daily prn Oct, Active predniSONE 20 mg oral tablet (20 sources) Start: 11-30-2023 End: 12-17-2023 Prednisone 20 mg tablet Discontinued 20 MG PO .COMPLEX 15 November 30, 2023 12:00am December 17, 2023 7:36am 20 mg orally BID X 5 DAYS, [...] Hand eczema; Translations: [Dermatitis, unspecified] Episodic Asthma (20 sources) Unspecified asthma, uncomplicated; Translations: [Asthma] Onset: [...] 12-17-2023 Episodic Other aftercare (1 source) 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 (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 therapy; Translations: [OTH GROUP HOME CURRENT DRUG THERAPY] Onset: 1 Episodic Other [...] of branchial cleft] Chronic Other congenital anomalies (6 sources) Second branchial cleft cyst; 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, fistula and cyst of branchial cleft] Onset: 3 01-25-2023 Chronic Other connective tissue disease (5 sources) Bilateral plantar fasciitis; Translations: [Plantar fascial fibromatosis] Episodic Other connective tissue disease (3 sources) Foot pain; Translations: [Pain in right foot] 06-10-2024 Episodic Other connective tissue disease (1 source) Plantar fascial fibromatosis; Translations: [Plantar fascial fibromatosis] Onset: 4 Episodic Other gastrointestinal disorders (17 sources) Heartburn; Translations: [Heartburn] Episodic Other gastrointestinal disorders (20 sources) Epiploic appendagitis; Translations: [Other specified diseases of intestine] 11-01-2022 Episodic Other gastrointestinal disorders (1 source) Change in bowel habit Episodic Other injuries and conditions due to external causes (20 sources) Contusion of multiple sites; Translations: [Unspecified [...] of breath] Episodic Other nervous system disorders (6 sources) Chronic pain; Translations: [Other chronic pain] Onset: 3 01-25-2023 Chronic Other non-traumatic joint disorders (5 sources) Swollen ankle region; Translations: [Effusion, right ankle] Episodic Other non-traumatic joint disorders (5 sources) Effusion of joint of left ankle; Translations: [Effusion, left ankle] Episodic Other non-traumatic joint disorders (1 source) Pain in left hip Episodic Other non-traumatic joint disorders (19 sources) Pain in elbow; Translations: [Pain in [...] Episodic Other nutritional; endocrine; and metabolic disorders (2 sources) Overweight in adulthood with body mass index of 25 or more but less than 30; Translations: [Body mass index (BMI) 27.0-27.9, adult] 09-09-2024 Episodic Other nutritional; endocrine; and metabolic disorders (2 sources) Body mass index (BMI) 27.0-27.9, adult; Translations: [...] Other seborrheic keratosis Episodic Other skin disorders (4 sources) Mass of body structure 09-09-2024 Episodic Other skin disorders (8 sources) Sebaceous cyst of skin; Translations: [Sebaceous cyst] Onset: 5 09-10-2024 Episodic Other skin disorders (1 source) Sebaceous cyst; Translations: [Sebaceous cyst] Onset: 5 Episodic Other upper respiratory disease (5 sources) [...] for closed fracture] Onset: 01-14-2024 12-31-2023 Episodic Nonmalignant breast conditions (20 sources) Cyst of breast; Translations: [Solitary cyst of right breast] Onset: 01-25-2023 02-07-2018 Episodic Other connective tissue disease (9 sources) Pain in right foot; Translations: [Pain in right foot] Onset: 11-26-2017 11-26-2017 Episodic Other connective tissue disease (1 source) Pain in left arm; Translations: [Arm pain, left M79.602] Onset: 04-20-2021 Resolved: 04-20-2021 Episodic Other connective tissue disease (6 sources) Peroneal tendinitis; Translations: [Peroneal tendinitis, unspecified leg] Onset: 01-25-2023 01-25-2023 Episodic Other connective tissue disease (2 sources) Pain in right foot; Translations: [Pain in limb] Onset: 05-19-2024 06-10-2024 Episodic Other gastrointestinal disorders (4 sources) Diarrhea, [...] conditions (not mental disorders or infectious disease) (14 sources) Mammography abnormal; Translations: [Other abnormal and inconclusive findings on diagnostic imaging of breast] Onset: 01-25-2023 Episodic Other skin disorders (1 source) Other hypertrophic disorders of the skin Onset: 10-17-2021 Resolved: 10-17-2021 Episodic Results Test Name Value Interpretation Reference Range Facility Pathology study report docum entOrdered By: Adolfo Madrid on 09-30-2024 Pathology study [facility] Other Phone: Prasanth 09-29-2024 L ---- Specimen: [id number] Received: 09/29/24 Status: JORGE Bergman Num: [id number] Spec Type: Surgical Subm Dr: Alber Haines DO Tissues: A Skin Cyst (RT CHEST CYSTIC WALL) Procedures: ASHLEY, Gross/Micro L3 Age/ Patient Sex Location Account Attending Physician Darling Khanna 44/F [place] [id number] Alber Haines DO SPEC NUM: [id number] RECD: 09/29/24-1219 STATUS: JORGE BERGMAN NUM: [id number] ALISTAIR: 09/29/24- SUBM DR: Alber Haines DO ENTERED: 09/29/24-[address]: [facility] SPEC TYPE: Surgical DEPT: S ORDERED: HE, Gross/Micro L3 ORDERED: HE, Gross/Micro L3 Pathological Diagnosis Soft tissue, right chest wall, excision: -Consistent with large pseudocyst, exhibiting a thin layer of histiocytic chronic inflammation in the internal lining, also consistent with previously ruptured chronic sebaceous cyst -Adequately excised for assessment, and no evidence of malignancy or any other atypical change identified Clinical Information R chest wall sebaceous cyst Gross Description Part A is received in formalin labeled with the patients name, date of , and right chest cystic wall is a collapsed and disrupted cystic structure, 1.5 x 0.8 x 0.2 with 2 detached fragments of fibrofatty tissue, 0.5 and 0.6 cm in greatest dimension. The cystic structure is inked black and bisected to reveal a smooth cyst lining. The specimen is entirely submitted in a single cassette. (1, ns, [id number]) NOEL Specimen: [id number] Received: 09/29/24 Status: JORGE Bergman Num: [id number] Spec Type: Surgical Subm Dr: Alber Haines DO Tissues: A Skin Cyst (RT CHEST CYSTIC WALL) Procedures: Luma RAMIREZ/Fabiana L3 Patient: Darling Khanna [id number] (Continued) Specimen: Received: 09/29/24 (Continued) Signed (signature on file) Adolfo Madrid MD 09/30/24 1501 Specimen: [id number] Received: 09/29/24 Status: JORGE Bergman Num: [id number] Spec Type: Surgical Subm Dr: Alber Haines DO Tissues: A Skin Cyst (RT CHEST CYSTIC WALL) Procedures: Luma RAMIREZ/Micro L3 Patient: Solo Khannatheo Jackson [id number] (Continued) Specimen: [id number] Received: 09/29/24 (Continued) Microscopic Description Microscopic examinations are performed supporting the above interpretation CPT Codes 71165 Specimen: [id number] Received: 09/29/24 Status: JORGE Bergman Num: [id number] Spec Type: Surgical Subm Dr: Alber Haines DO Tissues: A Skin Cyst (RT CHEST CYSTIC WALL) Procedures: ASHLEY, Gross/Micro L3 Patient: Darling Khanna [id number] (Continued) Signed (signature on file) Adolfo Madrid MD 09/30/24 1501 Normal [facility] MR ankle LT wo conon 024 MR ankle LT wo con [facility] [place] [address] MRI Report Signed Patient: Darling Khanna MR#: [id number] : 1980 Acct:[id number] Age/Sex: 44 / F ADM Date: 06/04/24 Loc: Room: Type: [facility] Attending Dr: Robert Martinez DPM, MS Copies to: Robert Martinez DPM, MS Ordering Provider: Robert Martinez DPM MS Date of Service: 06/04/24 MR/MR ankle [...] Osmani Stovall M.D.06/04/2024 10:29 PM Dictation Location: [place] [address] Transcribed By: [facility] 06/04/242228 Dictated By: Osmani Stovall DO 06/04/242217 Signed By: 06/04/242228 Normal [facility] Magnetic resonance imaging r eportOrdered By: Osmani Stovall on 06-04-2024 Study report [facility] [place] [address] [place] [address] MRI Report Signed Patient: Darling Khanna MR#: [id number] : 1980 Acct:[id number] Age/Sex: 44 / F ADM Date: 4 Loc: MR Room: Type: [facility] Attending Dr: Robert Martinez DPM, MS [...] Osmani Stovall M.D.06/04/2024 10:29 PM Dictation Location: [place] [address] Transcribed By: [facility] 06/04/242228 Dictated By: Osmani Stovall DO 06/04/242217 Signed By: 06/04/242228 [facility] X-ray reportOrdered By: Vikas Stovall on 06-04-2024 Study report [facility] [address] [address] XRay Report Signed Patient: Darling Khanna MR#: [id number] : 1980 Acct:[id number] Age/Sex: 44 / F ADM Date: 4 Loc: MR Room: Type: [facility] Attending Dr: Robert Martinez DPM, MS [...] Osmani Stovall M.D.06/04/2024 11:51 PM Dictation Location: [place] [address] Transcribed By: [facility] 06/04/242350 Dictated By: Osmani Stovall DO 06/04/242350 Signed By: 06/04/[address] [place] [address] XR pre/post mri xrayon 06-04 XR pre/post mri xray [facility] [place] [address] [place], [place] [id number] XRay Report Signed Patient: Darling Khanna MR#: [id number] : 1980 Acct:[id number] Age/Sex: 44 / F ADM Date: 06/04/24 Loc: MR Room: Type: [facility] Attending Dr: Robert Martinez DPM, MS [...] Osmani Stovall M.D.06/04/2024 11:51 PM Dictation Location: RADIO--01 Transcribed By: ADIA 06/04/24 235 Dictated By: Osmani Stovall DO 06/04/24 235 Signed By: 06/04/24 235 Normal [facility] EMG 2 Extremitieson 05-22-20 24 S1 radiculopathy, le ft, mild [facility] 11-12 Nerveson 4 S1 radiculopathy, le ft, mild [facility] [place] upper GI w air*on 024 FL upper GI w air* [facility] [place] [address] [place] [address] Fluoroscopy Report Signed Patient: Darling Khanna MR#: [id number] : 1980 Acct:[id number] Age/Sex: 43 / F ADM Date: 03/12/24 Loc: Room: Type: [facility] Attending Dr: Peter Ahumada DO Copies [...] Osmani Stovall M.D.03/12/2024 2:09 PM Dictation Location: RADIO-PC-08 Transcribed By: ADIA 03/12/24 1409 Dictated By: Osmani Stovall DO 03/12/24 1040 Signed By: 03/12/24 1409 Normal [facility] US gall bladderon 03-12-2024 US gall bladder [facility] [place] [address] [place] [address] Ultrasound Report Signed Patient: Darling Khanna MR#: [id number] 1872 : 1980 Acct:[id number] Age/Sex: 43 / F ADM Date: 03/12/24 Loc: Room: Type: [facility] Attending Dr: Peter Ahumada DO Ordering [...] Osmani Stovall M.D.03/12/2024 10:39 AM Dictation Location: [place] [address] Tech: Nellie Anderses Transcribed By: [facility] 03/12/24 1039 Dictated By: Osmani Stovall DO 03/12/24 1036 Signed By: 03/12/24 1039 Normal [facility] A1C with Estimated Average G neerajn 03-05-2024 Glucose [Mass/Vol] 128 mg/dL Normal [facility] Comment on above: Result Comment: PERF ORMED BY: [address] [address] PATHOLOGIST SUSTAINABLE LANDSCAPE ARCHITECT ALVIN VIDES M.D. Performed By: #### A 1C [facility] eA, LIPID, CMP, T4F, CBC, TSH3 ####[place] [id number] [place] [id number] [facility] Alanine aminotransferase [En zymatic activity/volume] in Serum or PlasmaOrdered By: Peter Ahumada on 03-05-2024 ALT [Catalytic activity/Vol] 10 U/L Normal 7-52 [facility] Comment on above: Performed By: #### A 1C [facility] eA, LIPID, CMP, T4F, CBC, TSH3 ####[address] [address] [facility] Albumin [Mass/volume] in Ser um or Plasma by Bromocresol green (BCG) dye binding methoOrdered By: Peter Ahumada on 03-05-2024 Albumin BCG dye [Mass/Vol] 4.0 g/dL 3.5-5.7 [facility] Alkaline phosphatase [Enzyma tic activity/volume] in Serum or PlasmaOrdered By: Peter Ahumada on 03-05-2024 ALP [Catalytic activity/Vol] 46 U/L Normal 34-104 [facility] Comment on above: Performed By: #### A [facility] eA, LIPID, CMP, T4F, CBC, TSH3 ####[place] [id number] [facility] Aspartate aminotransferase [ Enzymatic activity/volume] in Serum or PlasmaOrdered By: Peter Ahumada on 03-05-2024 AST [Catalytic activity/Vol] 20 U/L Normal 13-39 [facility] Comment on above: Performed By: #### A 1C [facility] eA, LIPID, CMP, T4F, CBC, TSH3 ####[address] [address] [facility] Automated basophil %Ordered By: Peter Ahumada on 03-05-2024 Basophils/100 WBC (Bld) 0.7 % Normal . [facility] Comment on above: Performed By: #### A 1C [facility] eA, LIPID, CMP, T4F, CBC, TSH3 ####[place] [id number] [facility] Automated basophil countOrde red By: Peter Ahumada on 03-05-2024 Basophils (Bld) [#/Vol] 0.0 10*3/uL Normal 0.0-0.2 [facility] Comment on above: Result Comment: PERF ORMED BY: [facility] [address] [place] [address] PATHOLOGIST SUSTAINABLE LANDSCAPE ARCHITECT ALVIN VIDES M.D. Performed By: #### A 1C WT eA, LIPID, CMP, T4F, CBC, TSH3 ####[address] Automated blood monocyte cou ntOrdered By: Peter Ahumada on 03-05-2024 Monocytes (Bld) [#/Vol] 0.5 10*3/uL Normal 0.0-0.8 [facility] Comment on above: Performed By: #### A 1C [facility] eA, LIPID, CMP, T4F, CBC, TSH3 ####[address] Automated eosinophil %Ordere d By: Peter Ahumada on 03-05-2024 Eosinophils/100 WBC (Bld) 2.2 % Normal . [facility] Comment on above: Performed By: #### A 1C [facility] eA, LIPID, CMP, T4F, CBC, TSH3 ####[address] Automated eosinophil countOr dered By: Peter Ahumada on 03-05-2024 Eosinophils (Bld) [#/Vol] 0.1 10*3/uL Normal 0.0-0.45 [facility] Comment on above: Performed By: #### A 1C [facility] eA, LIPID, CMP, T4F, CBC, TSH3 ####[address] Automated monocyte %Ordered By: Peter Ahumada on 03-05-2024 Monocytes/100 WBC (Bld) 7.5 % Normal . [facility] Comment on above: Performed By: #### A 1C WT eA, LIPID, CMP, T4F, CBC, TSH3 ####[place] [address] [place] [address] [facility] Automated neutrophil %Ordere d By: Peter Ahumada on 03-05-2024 Neutrophils/100 WBC (Bld) 53.3 % Normal . [facility] Comment on above: Performed By: #### A 1C [facility] eA, LIPID, CMP, T4F, CBC, TSH3 ####[place] [id number] [facility] Bilirubin.total [Mass/volume ] in Serum or PlasmaOrdered By: Peter Ahumada on 03-05-2024 Bilirubin [Mass/Vol] 0.4 mg/dL Normal 0.3-1.0 [facility] Comment on above: Performed By: #### A 1C [facility] eA, LIPID, CMP, T4F, CBC, TSH3 ####[address] [address] [facility] Calcium [Mass/volume] in Ser um or PlasmaOrdered By: Peter Ahumada on 03-05-2024 Calcium [Mass/Vol] 8.9 mg/dL Normal 8.6-10.3 [facility] Comment on above: Performed By: #### A 1C [facility] eA, LIPID, CMP, T4F, CBC, TSH3 ####[place] [id number] [facility] Carbon dioxide, total [Moles /volume] in Serum or PlasmaOrdered By: Peter Ahumada on 03-05-2024 CO2 [Moles/Vol] 28.7 mmol/L Normal 21.0-31.0 [facility] Comment on above: Performed By: #### A 1C [facility] eA, LIPID, CMP, T4F, CBC, TSH3 ####[address] [address] [place] Chloride [Moles/volume] in S renetta or PlasmaOrdered By: Peter Ahumada on 03-05-2024 Chloride [Moles/Vol] 103 mmol/L Normal 98-107 [facility] Comment on above: Performed By: #### A 1C WT eA, LIPID, CMP, T4F, CBC, TSH3 ####[facility] [place] [address] [facility] Cholesterol [Mass/volume] in Serum or PlasmaOrdered By: Peter Ahumada on 03-05-2024 Cholesterol [Mass/Vol] 166 mg/dL Normal 140-200 [facility] Comment on above: Chol less than 200 m g/dl low riskChol 201-239 mg/dl borderline riskChol 240 mg/dl and greater high risk Result Comment: Chol less than 200 mg/dl low risk Chol 201-239 mg/dl borderline risk Chol 240 mg/dl and greater high risk Performed By: #### A 1C WT eA, LIPID, CMP, T4F, CBC, TSH3 ####[facility] [place] [address] [facility] Cholesterol in LDL Calc [Mas s/Vol]Ordered By: Peter Ahumada on 03-05-2024 Cholesterol in LDL [Mass/Vol] 76 mg/dL 0-100 [facility] Comment on above: LDL ATP III CLASSIFI CATIONLDL less than 100 mg/dL OptimalLDL 100-129 mg/dL Near or above optimalLDL 130-159 mg/dL Borderline highLDL 160-189 mg/dL HighLDL greater than 189 mg/dL Very high Cholesterol in VLDL Calc [Ma ss/Vol]Ordered By: Peter Ahumada on 03-05-2024 Cholesterol in VLDL [Mass/Vol] 40 mg/dL [facility] Complete Blood Count Auto Di ffon 03-05-2024 Mean Corpuscular HGB Conc 33.6 g/dL Normal 32.0-35.0 [facility] Comment on above: Performed By: #### A 1C WT eA, LIPID, CMP, T4F, CBC, TSH3 ####[facility] [place] [address] [facility] NRBC% 0.1 /100{WBC} Normal 0-0.5 [facility] Comment on above: Performed By: #### A 1C WT eA, LIPID, CMP, T4F, CBC, TSH3 ####[place] [address] [place] [address] [facility] Comprehensive Metabolic Pane prasanth 03-05-2024 Albumin [Mass/Vol] 4.0 g/dL Normal 3.5-5.7 [facility] Comment on above: Performed By: #### A 1C [facility] eA, LIPID, CMP, T4F, CBC, TSH3 ####[address] GFR/1.73 sq M.predicted MDRD (S/P/Bld) [Vol rate/Area] mL/min/{1.73_m2} Normal [facility] Comment on above: Performed By: #### A 1C [facility] eA, LIPID, CMP, T4F, CBC, TSH3 ####[place] [id number] [facility] Creatinine [Mass/volume] in Serum or PlasmaOrdered By: Peter Ahumada on 03-05-2024 Creatinine [Mass/Vol] 0.63 mg/dL Normal 0.60-1.20 [facility] Comment on above: Performed By: #### A 1C [facility] eA, LIPID, CMP, T4F, CBC, TSH3 ####[address] Erythrocyte distribution wid th [Ratio] by Automated countOrdered By: Peter Ahumada on 03-05-2024 Erythrocyte distribution width (RBC) [Ratio] 13.4 % Normal 11.9-15.3 [facility] Comment on above: Performed By: #### A 1C [facility] eA, LIPID, CMP, T4F, CBC, TSH3 ####[place] [id number] [facility] Erythrocytes [#/volume] in B lood by Automated countOrdered By: Peter Ahumada on 03-05-2024 RBC (Bld) [#/Vol] 4.44 10*6/uL Normal 3.60-5.00 [facility] Comment on above: Performed By: #### A 1C [facility] eA, LIPID, CMP, T4F, CBC, TSH3 ####[place] [id number] [facility] Glucose [Mass/volume] in Ser um or PlasmaOrdered By: Peter Ahumada on 03-05-2024 Glucose [Mass/Vol] 96 mg/dL Normal 70-100 [facility] Comment on above: ADA recommended refe rence rangeRandom Glucose Reference Range is dependent on time and content of last meal. Glucose of more than 200 mg/dL in a nonstressed, ambulatory subject supports the diagnosis of Diabetes Mellitus. Result Comment: [place] om Glucose Reference Range is dependent on time and content of last meal. Glucose of more than 200 mg/dL in a nonstressed, ambulatory subject supports the diagnosis of Diabetes Mellitus. ADA recommended reference range Performed By: #### A 1C WTH eA, LIPID, CMP, T4F, CBC, TSH3 ####[facility] [id number] [place] [address] [facility] Glucose mean value [Mass/vol ume] in Blood Estimated from glycated hemoglobinOrdered By: Peter Ahumada on 03-05-2024 Average glucose Estimated from glycated hemoglobin (Bld) [Mass/Vol] 128 mg/dL [facility] Hematocrit [Volume Fraction] of Blood by Automated countOrdered By: Peter Ahumada on 03-05-2024 Hematocrit (Bld) [Volume fraction] 37.2 % Normal 34.0-46.4 [facility] Comment on above: Performed By: #### A 1C WTH eA, LIPID, CMP, T4F, CBC, TSH3 ####[facility] [place] [address] [facility] Hemoglobin A1c percentageOrd ered By: Peter Ahumada on 03-05-2024 HbA1c (Bld) [Mass fraction] 6.1 % High 4.3-5.6 [facility] Comment on above: Increased risk for d iabetes: 5.7 - 6.4diabetes: >6.4glycemic control for adults with diabetes: <7.0 Result Comment: Incr eased risk for diabetes: 5.7 - 6.4 diabetes: >6.4 glycemic control for adults with diabetes: <7.0 Performed By: #### A 1C WTH eA, LIPID, CMP, T4F, CBC, TSH3 ####[facility] [place] [address] [facility] Hemoglobin [Mass/volume] in BloodOrdered By: Peter Ahumada on 03-05-2024 Hemoglobin (Bld) [Mass/Vol] 12.5 g/dL Normal 11.8-15.4 [facility] Comment on above: Performed By: #### A 1C [facility] eA, LIPID, CMP, T4F, CBC, TSH3 ####[facility] [place] [id number] [facility] Leukocytes [#/volume] correc bryan for nucleated erythrocytes in Blood by Automated counOrdered By: Peter Ahumada on 03-05-2024 WBC corrected for nucl RBC Auto (Bld) [#/Vol] 6.2 10*3/uL 3.8-11.6 [facility] Leukocytes [#/volume] in Blo od by Automated countOrdered By: Peter Ahumada on 03-05-2024 WBC (Bld) [#/Vol] 6.2 10*3/uL Normal 3.8-11.6 [facility] Comment on above: Performed By: #### A 1C [facility] eA, LIPID, CMP, T4F, CBC, TSH3 ####[facility] [place] [id number] [facility] Lipid Panelon 03-05-2024 LDL Cholesterol,Calculated 76 mg/dL Normal 0-100 [facility] Comment on above: Result Comment: LDL ATP III CLASSIFICATION LDL less than 100 mg/dL Optimal LDL 100-129 mg/dL Near or above optimal LDL 130-159 mg/dL Borderline high LDL 160-189 mg/dL High LDL greater than 189 mg/dL Very high Performed By: #### A 1C [facility] eA, LIPID, CMP, T4F, CBC, TSH3 ####[facility] [place] [id number] [facility] Triglyceride w/Reflex 202 mg/dL High 0-149 [facility] Comment on above: Result Comment: TRIG ATP III CLASSIFICATION TRIG less than 150 mg/dL Normal TRIG 150-199 mg/dL Borderline high TRIG 200-500 mg/dL High TRIG greater than 500 mg/dL Very high Standard traceable to the Center for Disease Conrtrol and Prevention (CDC) test method. Performed By: #### A 1C WT eA, LIPID, CMP, T4F, CBC, TSH3 ####[address] VLDL CHOLESTEROL 40 mg/dL Normal [facility] Comment on above: Performed By: #### A 1C [facility] eA, LIPID, CMP, T4F, CBC, TSH3 ####[address] Lymphocytes [#/volume] in Bl ood by Automated countOrdered By: Peter Ahumada on 03-05-2024 Lymphocytes (Bld) [#/Vol] 2.2 10*3/uL Normal 1.00-4.8 [facility] Comment on above: Performed By: #### A 1C [facility] eA, LIPID, CMP, T4F, CBC, TSH3 ####[address] Lymphocytes/100 leukocytes i n Blood by Automated countOrdered By: Peter Ahumada on 03-05-2024 Lymphocytes/100 WBC (Bld) 36.3 % Normal . [facility] Comment on above: Performed By: #### A 1C [facility] eA, LIPID, CMP, T4F, CBC, TSH3 ####[address] MCH [Entitic mass] by Automa bryan countOrdered By: Peter Ahumada on 03-05-2024 MCH (RBC) [Entitic mass] 28.2 pg Normal 24.7-34.3 [facility] Comment on above: Performed By: #### A 1C [facility] eA, LIPID, CMP, T4F, CBC, TSH3 ####[address] MCHC Auto (RBC) [Mass/Vol]Or dered By: Peter Ahumada on 03-05-2024 MCHC (RBC) [Mass/Vol] 33.6 g/dL 32.0-35.0 [facility] MCV [Entitic volume] by Auto mated countOrdered By: Peter Ahumada on 03-05-2024 MCV (RBC) [Entitic vol] 83.8 fL Normal 80-100 [facility] Comment on above: Performed By: #### A 1C [facility] eA, LIPID, CMP, T4F, CBC, TSH3 ####[facility] [place] [address] [facility] Neutrophils [#/volume] in Bl ood by Automated countOrdered By: Peter Ahumada on 03-05-2024 Neutrophils (Bld) [#/Vol] 3.3 10*3/uL Normal 1.8-7.7 [facility] Comment on above: Performed By: #### A 1C [facility] eA, LIPID, CMP, T4F, CBC, TSH3 ####[place] [address] [place] [id number] [facility] No Panel InformationOrdered By: Peter Ahumada on 03-05-2024 Estimated GFR (CKD-EPI) > 60.0 mL/Min [facility] Creatinine Clearance (Chem N/A [facility] Nucleated erythrocytes [Pres ence] in Blood by Automated countOrdered By: Peter Ahumada on 03-05-2024 Nucleated RBC Auto Ql (Bld) 0.1 /100{WBC} 0-0.5 [facility] Platelet mean volume [Entiti c volume] in Blood by Automated countOrdered By: Peter Ahumada on 03-05-2024 Platelet mean volume (Bld) [Entitic vol] 8.7 fL Normal 6.3-10.7 [facility] Comment on above: Performed By: #### A 1C [facility] eA, LIPID, CMP, T4F, CBC, TSH3 ####[place] [address] [place] [id number] [facility] Platelets [#/volume] in Bloo d by Automated countOrdered By: Peter Ahumada on 03-05-2024 Platelets (Bld) [#/Vol] 333 10*3/uL Normal 150-450 [facility] Comment on above: Performed By: #### A 1C [facility] eA, LIPID, CMP, T4F, CBC, TSH3 ####[place] [address] [place] [id number] [facility] Potassium [Moles/volume] in Serum or PlasmaOrdered By: Peter Ahumada on 03-05-2024 Potassium [Moles/Vol] 3.8 mmol/L Normal 3.5-5.1 [facility] Comment on above: Performed By: #### A 1C [facility] eA, LIPID, CMP, T4F, CBC, TSH3 ####[place] [address] Protein [Mass/volume] in Ser um or PlasmaOrdered By: Peter Ahumada on 03-05-2024 Protein [Mass/Vol] 6.7 g/dL Normal 6.4-8.9 [facility] Comment on above: Performed By: #### A 1C [facility] eA, LIPID, CMP, T4F, CBC, TSH3 ####[place] [address] Serum globulin measurement b y calculation (mass/volume)Ordered By: Peter Ahumada on 03-05-2024 Globulin (S) [Mass/Vol] 2.7 g/dL [facility] Comment on above: Performed By: #### A 1C [facility] eA, LIPID, CMP, T4F, CBC, TSH3 ####[address] Serum or plasma albumin/glob ulin mass ratioOrdered By: Peter Ahumada on 03-05-2024 Albumin/Globulin [Mass ratio] 1.5 {ratio} [facility] Comment on above: Performed By: #### A 1C [facility] eA, LIPID, CMP, T4F, CBC, TSH3 ####[address] Serum or plasma anion gap de terminationOrdered By: Peter Ahumada on 03-05-2024 Anion gap [Moles/Vol] 11.1 mmol/L Normal 6.0-15.0 [facility] Comment on above: Performed By: #### A 1C [facility] eA, LIPID, CMP, T4F, CBC, TSH3 ####[address] Serum or plasma high density lipoprotein (HDL) cholesterol measurementOrdered By: Peter Ahumada on 03-05-2024 Cholesterol in HDL [Mass/Vol] 50 mg/dL Normal 23-92 [facility] Comment on above: HDL CHOL ATP-III CLA SSIFICATION Cardiovascular RiskHDL > or equal to 60 mg/dL LOWHDL < 40 mg/dL HIGH Result Comment: HDL CHOL ATP-III CLASSIFICATION Cardiovascular Risk HDL > or equal to 60 mg/dL LOW HDL < 40 mg/dL HIGH Performed By: #### A 1C [facility] eA, LIPID, CMP, T4F, CBC, TSH3 ####[place] [address] [place] [id number] [facility] Serum or plasma total choles terol/high density lipoprotein (HDL) cholesterol mass ratOrdered By: Peter Ahumada on 03-05-2024 Cholesterol.total/Chol esterol in HDL [Mass ratio] 3.3 {ratio} Normal <5.0 [facility] Comment on above: Performed By: #### A 1C [facility] eA, LIPID, CMP, T4F, CBC, TSH3 ####[address] Sodium [Moles/volume] in Ser um or PlasmaOrdered By: Peter Ahumada on 03-05-2024 Sodium [Moles/Vol] 139 mmol/L Normal 136-145 [facility] Comment on above: Performed By: #### A 1C [facility] eA, LIPID, CMP, T4F, CBC, TSH3 ####[place] [address] [place] [id number] [facility] Thyrotropin [Units/volume] i n Serum or PlasmaOrdered By: Peter Ahumada on 03-05-2024 TSH Qn 0.29 m[IU]/L Low 0.45-5.33 [facility] Comment on above: Result Comment: PERF ORMED BY: [facility] [address] [place] [address] PATHOLOGIST SUSTAINABLE LANDSCAPE ARCHITECT ALVIN VIDES M.D. Performed By: #### A 1C WT eA, LIPID, CMP, T4F, CBC, TSH3 ####[place] [address] [place] [id number] [facility] Thyroxine (T4) free [Mass/vo lume] in Serum or PlasmaOrdered By: Peter Ahumada on 03-05-2024 Free T4 [Mass/Vol] 0.81 ng/dL Normal 0.61-1.12 [facility] Comment on above: Performed By: #### A 1C [facility] eA, LIPID, CMP, T4F, CBC, TSH3 ####[facility] [id number] [place] [address] [facility] Triglyceride [Mass/volume] i n Serum or PlasmaOrdered By: Peter Ahumada on 03-05-2024 Triglyceride [Mass/Vol] 202 mg/dL High 0-149 [facility] Comment on above: TRIG ATP III CLASSIF ICATIONTRIG less than 150 mg/dL NormalTRIG 150-199 mg/dL Borderline highTRIG 200-500 mg/dL High TRIG greater than 500 mg/dL Very highStandard traceable to the Center for Disease Conrtrol and Prevention (CDC) test method. Urea nitrogen [Mass/volume] in Serum or PlasmaOrdered By: Peter Ahumada on 03-05-2024 Urea nitrogen [Mass/Vol] 11 mg/dL Normal 7-25 [facility] Comment on above: Performed By: #### A 1C [facility] eA, LIPID, CMP, T4F, CBC, TSH3 ####[facility] [id number] [place] [address] [facility] XR elbow RT 2Von 02-13-2024 XR elbow RT 2V [facility] [address] [place] [address] XRay Report Signed Patient: Darling Khanna MR#: [id number] 1872 : 1980 Acct:[id number] Age/Sex: 43 / F ADM Date: 02/13/24 Loc: [facility] Room: Type: [facility] Attending Dr: Chas Meza DO Copies [...] Osmani Stovall M.D.02/13/2024 4:07 PM Dictation Location: [place] [address] Transcribed By: [facility] 02/13/24 1607 Dictated By: Osmani Stovall DO 02/13/24 1607 Signed By: 02/13/24 1607 Normal [facility] HCG ( test) IA.rapi d Ql (U)Ordered By: Rahul Rogers on 01-29-2024 HCG ( test) Ql (U) Negative [facility] HCG,Urineon 01-29-2024 Beta HCG ( test) Ql (U) Negative Normal [facility] Comment on above: Result Comment: PERF ORMED BY: [place] [address] PATHOLOGIST SUSTAINABLE LANDSCAPE ARCHITECT ALVIN VIDES M.D. Performed By: #### U HCG #### [address] XR elbow RT 2Von 01-14-2024 XR elbow RT 2V [facility] [address] [place] [address] XRay Report Signed Patient: Darling Khanna MR#: [id number] 1872 : 1980 Acct:[id number] Age/Sex: 43 / F ADM Date: 01/14/24 Loc: [facility] Room: Type: [facility] Attending Dr: Chas Meza DO Copies [...] M.D.01/14/2024 3:36 PM Dictation Location: [place] [address] Transcribed By: [facility] 01/14/24 1536 Dictated By: Chetan Ortiz II, MD 01/14/24 1535 Signed By: 01/14/24 1536 Normal [facility] US abdomen limitedon 024 US abdomen limited [facility] [place] [address] Ultrasound Report Signed Patient: Darling Khanna MR#: [id number] 18[birth year] : 1980 Acct:[id number] Age/Sex: 43 / F ADM Date: 12/31/23 Loc: Room: Type: [facility] Attending Dr: Alber Haines DO Ordering [...] Ayleen Zheng M.D.12/31/2023 12:14 PM Dictation Location: [facility] Tech: Nellie Solis Transcribed By: [facility] 12/31/23 1214 Dictated By: Ayleen Zheng MD 12/31/23 1206 Signed By: 12/31/23 1214 Normal [facility] XR knee RT 4V*on 12-28-2023 XR knee RT 4V* [facility] [address] [address] XRay Report Signed Patient: Darling Khanna MR#: [id number] 1872 : 1980 Acct:[id number] Age/Sex: 43 / F ADM Date: 12/28/23 Loc: XD Room: Type: [facility] Attending Dr: Peter Ahumada DO Copies to: Peter Ahumada DO Ordering Provider: Peter Ahumada DO Date of Service: 12/28/23 XR/XR elbow RT min 3V*: Suspicion for fracture ([id number]) XR/XR knee RT 4V*: W19.XXXA - Unspecified [...] Osmani Stovall M.D.12/28/2023 9:38 AM Dictation Location: [facility] Transcribed By: [facility] 12/28/23 0938 Dictated By: Osmani Stovall DO 12/28/23 0932 Signed By: 12/28/23 0938 Normal [facility] XR clavicle RT*on 12-17-2023 XR clavicle RT* [facility] [address] [address] XRay Report Signed Patient: Darling Khanna MR#: [id number] 18[birth year] : 1980 Acct:[id number] Age/Sex: 43 / F ADM Date: 12/17/23 Loc: ER Room: Type: [facility] ER Attending Dr: Copies to: Igor Rudd MD Ordering Provider: Igor Rudd MD Date of Service: 12/17/23 XR/XR clavicle RT*: Fall ([id number]) XR/XR shoulder RT min 2V*: Fall XR [...] Chetan Ortiz M.D.12/17/2023 9:23 AM Dictation Location: [place] [address] Transcribed By: [facility] 12/17/23922 Dictated By: Chetan Ortiz II, MD 12/17/23918 Signed By: 12/17/23922 Normal [facility] XR forearm RT 2V*on 12-17-19 XR forearm RT 2V* [facility] [place] [address] [place] [address] XRay Report Signed Patient: Darling Khanna MR#: [id number] 1872 : 1980 Acct:[id number] Age/Sex: 43 / F ADM Date: 12/17/23 Loc: ER Room: Type: [facility] ER Attending Dr: Copies to: Igor Rudd [...] MD 12/17/23922 Signed By: 12/17/23923 Normal [facility] XR knee LT 2Von 12-17-2023 XR knee LT 2V [facility] [place] [address] XRay Report Signed Patient: Darling Khanna MR#: [id number] [birth year]72 : 1980 Acct:[id number] Age/Sex: 43 / F ADM Date: 12/17/23 Loc: ER Room: Type: [facility] ER Attending Dr: Copies to: Igor Rudd [...] MD 12/17/23923 Signed By: 12/17/23924 Normal [facility] MM screening mammo BI w/CADo n 12-03-2023 MM screening mammo BI w/CAD [facility] [place] [address] [place] [address] Mammography Report Signed Patient: Darling Khanna MR#: [id number] 18[birth year] : 1980 Acct:[id number] Age/Sex: 43 / F ADM Date: 12/03/23 Loc: [place] Room: Type: [facility] CL Attending Dr: Referral Self Copies to: Peter [...] Chetan Ortiz M.D.12/03/2023 4:13 PM Dictation Location: [facility] Transcribed By: [facility] 12/03/23 1613 Dictated By: Cheatn Ortiz II, MD 12/03/23 1607 Signed By: 12/03/23 1613 Normal [facility] Thyrotropin [Units/volume] i n Serum or PlasmaOrdered By: Peter Ahumada on 08-22-2023 TSH Qn 0.15 m[IU]/L 0.45-5.33 [facility] Thyroxine (T4) free [Mass/vo lume] in Serum or PlasmaOrdered By: Peter Ahumada on 08-22-2023 Free T4 [Mass/Vol] 0.97 ng/dL 0.61-1.12 [facility] Alanine aminotransferase [En zymatic activity/volume] in Serum or PlasmaOrdered By: Peter Ahumada on 05-25-2023 ALT [Catalytic activity/Vol] 7 U/L 7-52 [facility] Albumin [Mass/volume] in Ser um or Plasma by Bromocresol green (BCG) dye binding methoOrdered By: Peter Ahumada on 05-25-2023 Albumin BCG dye [Mass/Vol] 3.8 g/dL 3.5-5.7 [facility] Alkaline phosphatase [Enzyma tic activity/volume] in Serum or PlasmaOrdered By: Peter Ahumada on 05-25-2023 ALP [Catalytic activity/Vol] 54 U/L 34-104 [facility] Aspartate aminotransferase [ Enzymatic activity/volume] in Serum or PlasmaOrdered By: Peter Ahumada on 05-25-2023 AST [Catalytic activity/Vol] 17 U/L 13-39 [facility] Basophils Auto (Bld) [#/Vol] Ordered By: Peter Ahumada on 05-25-2023 Basophils (Bld) [#/Vol] 0.1 10*3/uL 0.0-0.2 [facility] Basophils/100 WBC Auto (Bld) Ordered By: Peter Ahumada on 05-25-2023 Basophils/100 WBC (Bld) 1.1 % . [facility] Bilirubin.total [Mass/volume ] in Serum or PlasmaOrdered By: Peter Ahumada on 05-25-2023 Bilirubin [Mass/Vol] 0.3 mg/dL 0.3-1.0 [facility] Calcium [Mass/volume] in Ser um or PlasmaOrdered By: Peter Ahumada on 05-25-2023 Calcium [Mass/Vol] 8.8 mg/dL 8.6-10.3 [facility] Carbon dioxide, total [Moles /volume] in Serum or PlasmaOrdered By: Peter Ahumada on 05-25-2023 CO2 [Moles/Vol] 29.9 mmol/L 21.0-31.0 [facility] Chloride [Moles/volume] in S renetta or PlasmaOrdered By: Peter Ahumada on 05-25-2023 Chloride [Moles/Vol] 107 mmol/L 98-107 [facility] Cholesterol [Mass/volume] in Serum or PlasmaOrdered By: Peter Ahumada on 05-25-2023 Cholesterol [Mass/Vol] 181 mg/dL 140-200 [facility] Comment on above: Chol less than 200 m g/dl low riskChol 201-239 mg/dl borderline riskChol 240 mg/dl and greater high risk Cholesterol in LDL Calc [Mas s/Vol]Ordered By: Peter Ahumada on 05-25-2023 Cholesterol in LDL [Mass/Vol] 115 mg/dL 0-100 [facility] Comment on above: LDL ATP III CLASSIFI CATIONLDL less than 100 mg/dL OptimalLDL 100-129 mg/dL Near or above optimalLDL 130-159 mg/dL Borderline highLDL 160-189 mg/dL HighLDL greater than 189 mg/dL Very high Cholesterol in VLDL Calc [Ma ss/Vol]Ordered By: Peter Ahumada on 05-25-2023 Cholesterol in VLDL [Mass/Vol] 22 mg/dL [facility] Creatinine [Mass/volume] in Serum or PlasmaOrdered By: Peter Ahumada on 05-25-2023 Creatinine [Mass/Vol] 0.59 mg/dL 0.60-1.20 [facility] Eosinophils Auto (Bld) [#/Vo l]Ordered By: Peter Ahumada on 05-25-2023 Eosinophils (Bld) [#/Vol] 0.1 10*3/uL 0.0-0.45 [facility] Eosinophils/100 WBC Auto (Bl d)Ordered By: Peter Ahumada on 05-25-2023 Eosinophils/100 WBC (Bld) 1.9 % . [facility] Erythrocyte distribution wid th Auto (RBC) [Ratio]Ordered By: Peter Ahumada on 05-25-2023 Erythrocyte distribution width (RBC) [Ratio] 13.7 % 11.9-15.3 [facility] Globulin Calc (S) [Mass/Vol] Ordered By: Peter Ahumada on 05-25-2023 Globulin (S) [Mass/Vol] 2.7 g/dL [facility] Glucose [Mass/volume] in Ser um or PlasmaOrdered By: Peter Ahumada on 05-25-2023 Glucose [Mass/Vol] 87 mg/dL 70-100 [facility] Comment on above: ADA recommended refe [...] from glycated hemoglobin (Bld) [Mass/Vol] 126 mg/dL [facility] Hematocrit Auto (Bld) [Volum e fraction]Ordered By: Peter Ahumada on 05-25-2023 Hematocrit (Bld) [Volume fraction] 36.2 % 34.0-46.4 [facility] Hemoglobin A1c percentageOrd ered By: Peter Ahumada on 05-25-2023 HbA1c (Bld) [Mass fraction] 6.0 % 4.3-5.6 [facility] Comment on above: Increased risk for d iabetes: 5.7 - 6.4diabetes: >6.4glycemic control for adults with diabetes: <7.0 Hemoglobin [Mass/volume] in BloodOrdered By: Peter Ahumada on 05-25-2023 Hemoglobin (Bld) [Mass/Vol] 11.8 g/dL 11.8-15.4 [facility] Leukocytes [#/volume] correc bryan for nucleated erythrocytes in Blood by Automated counOrdered By: Peter Ahumada on 05-25-2023 WBC corrected for nucl RBC Auto (Bld) [#/Vol] 6.1 10*3/uL 3.8-11.6 [facility] Lymphocytes Auto (Bld) [#/Vo l]Ordered By: Peter Ahumada on 05-25-2023 Lymphocytes (Bld) [#/Vol] 2.0 10*3/uL 1.00-4.8 [facility] Lymphocytes/100 WBC Auto (Bl d)Ordered By: Peter Ahumada on 05-25-2023 Lymphocytes/100 WBC (Bld) 32.1 % . [facility] MCH Auto (RBC) [Entitic mass ]Ordered By: Peter Ahumada on 05-25-2023 MCH (RBC) [Entitic mass] 27.3 pg 24.7-34.3 [facility] MCHC Auto (RBC) [Mass/Vol]Or dered By: Peter Ahumada on 05-25-2023 MCHC (RBC) [Mass/Vol] 32.7 g/dL 32.0-35.0 [facility] MCV Auto (RBC) [Entitic vol] Ordered By: Peter Ahumada on 05-25-2023 MCV (RBC) [Entitic vol] 83.5 fL 80-100 [facility] Monocytes Auto (Bld) [#/Vol] Ordered By: Peter Ahumada on 05-25-2023 Monocytes (Bld) [#/Vol] 0.3 10*3/uL 0.0-0.8 [facility] Monocytes/100 WBC Auto (Bld) Ordered By: Peter Ahumada on 05-25-2023 Monocytes/100 WBC (Bld) 5.2 % . [facility] Neutrophils Auto (Bld) [#/Vo l]Ordered By: Peter Ahumada on 05-25-2023 Neutrophils (Bld) [#/Vol] 3.6 10*3/uL 1.8-7.7 [facility] Neutrophils/100 WBC Auto (Bl d)Ordered By: Peter Ahumada on 05-25-2023 Neutrophils/100 WBC (Bld) 59.7 % . [facility] No Panel InformationOrdered By: Peter Ahumada on 05-25-2023 Estimated GFR (CKD-EPI) > 60.0 mL/Min [facility] Creatinine Clearance (Chem N/A [facility] Nucleated erythrocytes [Pres ence] in Blood by Automated countOrdered By: Peter Ahumada on 05-25-2023 Nucleated RBC Auto Ql (Bld) 0.1 /100{WBC} 0-0.5 [facility] Platelet mean volume Auto (B ld) [Entitic vol]Ordered By: Peter Ahumada on 05-25-2023 Platelet mean volume (Bld) [Entitic vol] 8.5 fL 6.3-10.7 [facility] Platelets Auto (Bld) [#/Vol] Ordered By: Peter Ahumada on 05-25-2023 Platelets (Bld) [#/Vol] 364 10*3/uL 150-450 [facility] Potassium [Moles/volume] in Serum or PlasmaOrdered By: Peter Ahumada on 05-25-2023 Potassium [Moles/Vol] 4.0 mmol/L 3.5-5.1 [facility] Protein [Mass/volume] in Ser um or PlasmaOrdered By: Peter Ahumada on 05-25-2023 Protein [Mass/Vol] 6.5 g/dL 6.4-8.9 [facility] RBC Auto (Bld) [#/Vol]Ordere d By: Peter Ahumada on 05-25-2023 RBC (Bld) [#/Vol] 4.34 10*6/uL 3.60-5.00 [facility] Serum or plasma albumin/glob ulin mass ratioOrdered By: Peter Ahumada on 05-25-2023 Albumin/Globulin [Mass ratio] 1.4 {ratio} [facility] Serum or plasma anion gap de terminationOrdered By: Peter Ahumada on 05-25-2023 Anion gap [Moles/Vol] 10.1 mmol/L 6.0-15.0 [facility] Serum or plasma high density lipoprotein (HDL) cholesterol measurementOrdered By: Peter Ahumada on 05-25-2023 Cholesterol in HDL [Mass/Vol] 44 mg/dL 23-92 [facility] Comment on above: HDL CHOL ATP-III CLA SSIFICATION Cardiovascular RiskHDL > or equal to 60 mg/dL LOWHDL < 40 mg/dL HIGH Serum or plasma total choles terol/high density lipoprotein (HDL) cholesterol mass ratOrdered By: Peter Ahumada on 05-25-2023 Cholesterol.total/Chol esterol in HDL [Mass ratio] 4.1 {ratio} <5.0 [facility] Sodium [Moles/volume] in Ser um or PlasmaOrdered By: Peter Ahumada on 05-25-2023 Sodium [Moles/Vol] 143 mmol/L 136-145 [facility] Thyrotropin [Units/volume] i n Serum or PlasmaOrdered By: Peter Ahumada on 05-25-2023 TSH Qn 0.73 m[IU]/L 0.45-5.33 [facility] Thyroxine (T4) free [Mass/vo lume] in Serum or PlasmaOrdered By: Peter Ahumada on 05-25-2023 Free T4 [Mass/Vol] 0.79 ng/dL 0.61-1.12 [facility] Triglyceride [Mass/volume] i n Serum or PlasmaOrdered By: Peter Ahumada on 05-25-2023 Triglyceride [Mass/Vol] 112 mg/dL 0-149 [facility] Comment on above: TRIG ATP III CLASSIF ICATIONTRIG less than 150 mg/dL NormalTRIG 150-199 mg/dL Borderline highTRIG 200-500 mg/dL High TRIG greater than 500 mg/dL Very highStandard traceable to the Center for Disease Conrtrol and Prevention (CDC) test method. Urea nitrogen [Mass/volume] in Serum or PlasmaOrdered By: Peter Ahumada on 05-25-2023 Urea nitrogen [Mass/Vol] 10 mg/dL 7-25 [facility] WBC Auto (Bld) [#/Vol]Ordere d By: Peter Ahumada on 05-25-2023 WBC (Bld) [#/Vol] 6.1 10*3/uL 3.8-11.6 [facility] Thyrotropin [Units/volume] i n Serum or PlasmaOrdered By: Peter Ahumada on 03-19-2023 TSH Qn 2.20 m[IU]/L 0.45-5.33 [facility] Thyroxine (T4) free [Mass/vo lume] in Serum or PlasmaOrdered By: Peter Ahumada on 03-19-2023 Free T4 [Mass/Vol] 0.62 ng/dL 0.61-1.12 [facility] Alanine aminotransferase [En zymatic activity/volume] in Serum or PlasmaOrdered By: Alba Marshall on 11-01-2022 ALT [Catalytic activity/Vol] 7 U/L 7-52 [facility] Albumin [Mass/volume] in Ser um or Plasma by Bromocresol green (BCG) dye binding methoOrdered By: Alba Bullimore on 11-01-2022 Albumin BCG dye [Mass/Vol] 3.7 g/dL 3.5-5.7 [facility] Alkaline phosphatase [Enzyma tic activity/volume] in Serum or PlasmaOrdered By: Alba Marshall on 11-01-2022 ALP [Catalytic activity/Vol] 47 U/L 34-104 [facility] Aspartate aminotransferase [ Enzymatic activity/volume] in Serum or PlasmaOrdered By: Alba Wrenimore on 11-01-2022 AST [Catalytic activity/Vol] 12 U/L 13-39 [facility] Automated erythrocytes count in urine sediment (number/area)Ordered By: Alba Marshall on 11-01-2022 RBC Auto (Urine sed) [#/Area] 1-2 [HPF] 0-4 [facility] Comment on above: --- 11/01/22 1049 -- -Ur RBC previously reported as: 1-2 /HPFMicroscopic results may be affected due to low specimen volume. Automated leukocytes count i n urine sediment (number/area)Ordered By: Alba Marshall on 11-01-2022 WBC Auto (Urine sed) [#/Area] 1-2 [HPF] 0-4 [facility] Basophils Auto (Bld) [#/Vol] Ordered By: Alba Ibrahimore on 11-01-2022 Basophils (Bld) [#/Vol] 0.1 10*3/uL 0.0-0.2 [facility] Basophils/100 WBC Auto (Bld) Ordered By: Alba Marshall on 11-01-2022 Basophils/100 WBC (Bld) 0.9 % . [facility] Bilirubin Test strip Ql (U)O rdered By: Alba Marshall on 11-01-2022 Bilirubin Ql (U) Negative Negative [facility] Bilirubin.direct [Mass/volum e] in Serum or PlasmaOrdered By: Alba Marshall on 11-01-2022 Bilirubin.direct [Mass/Vol] 0.10 mg/dL 0.03-0.18 [facility] Bilirubin.total [Mass/volume ] in Serum or PlasmaOrdered By: Alba Marshall on 11-01-2022 Bilirubin [Mass/Vol] 0.3 mg/dL 0.3-1.0 [facility] Calcium [Mass/volume] in Ser um or PlasmaOrdered By: Alba Wrenimore on 11-01-2022 Calcium [Mass/Vol] 8.8 mg/dL 8.6-10.3 [facility] Carbon dioxide, total [Moles /volume] in Serum or PlasmaOrdered By: Alba Marshall on 11-01-2022 CO2 [Moles/Vol] 27.6 mmol/L 21.0-31.0 [facility] Chloride [Moles/volume] in S renetta or PlasmaOrdered By: Alba Marshall on 11-01-2022 Chloride [Moles/Vol] 105 mmol/L 98-107 [facility] Choriogonadotropin.beta subu nit [Units/volume] in Serum or PlasmaOrdered By: Alba Marshall on 11-01-2022 HCG.beta subunit Qn m[IU]/mL [facility] Comment on above: Approximate Approxim ate hCG Gestational Age Range (mIU/ml) (weeks)0.2-1 5-50 1-2 50-500 2-3 100-5,000 3-4 500-10,000 4-5 1,000-50,000 5-6 10,000-100,000 6-8 15,000-200,000 8-12 10,000-100,000 Color Auto (U)Ordered By: Malgorzata Marshall on 11-01-2022 Color (U) Yellow Yellow [facility] Creatinine [Mass/volume] in Serum or PlasmaOrdered By: Alba Ibrahimore on 11-01-2022 Creatinine [Mass/Vol] 0.60 mg/dL 0.60-1.20 [facility] Eosinophils Auto (Bld) [#/Vo l]Or[facility]: [facility] 11-01-2022 Eosinophils (Bld) [#/Vol] 0.2 10*3/uL 0.0-0.45 [facility] Eosinophils/100 WBC Auto (Bl d)Ordered By: [facility] on 11-01-2022 Eosinophils/100 WBC (Bld) 3.0 % . [facility] Erythrocyte distribution wid th Auto (RBC) [Ratio]Ordered By[facility] on 11-01-[facility]22 Erythrocyte distribution width (RBC) [Ratio] 13.2 % 11.9-15.3 [facility] Globulin Calc (S) [Mass/Vol] Ordered By: [facility] on 11-01-2022 Globulin (S) [Mass/Vol] 3.1 g/dL [facility] Glucose [Mass/volume] in Ser um or PlasmaOrdered By: [facility] on 11-01-2022 Glucose [Mass/Vol] 95 mg/dL 70-100 [facility] Comment on above: ADA recommended refe rence rangeRandom Glucose Reference Range is dependent on time and content of last meal. Glucose of more than 200 mg/dL in a nonstressed, ambulatory subject supports the diagnosis of Diabetes Mellitus. Hematocrit Auto (Bld) [Volum e fraction]Ordered By: [facility] on 11-01-2022 Hematocrit (Bld) [Volume fraction] 36.8 % 34.0-46.4 [facility] Hemoglobin [Mass/volume] in BloodOrdered By: [facility] on 11-01-2022 Hemoglobin (Bld) [Mass/Vol] 12.5 g/dL 11.8-15.4 [facility] Ketones Auto test strip (U) [Mass/Vol]Ordered By: [facility] on 11-01-2022 Ketones (U) [Mass/Vol] Negative Negative [facility] - UrinalysisOrder ed By: Alba Marshall on 11-01-2022 Hyaline casts LM Ql (Urine sed) 0-8 [LPF] 0-8 [facility] Leukocytes [#/volume] correc bryan for nucleated erythrocytes in Blood by Automated counOrdered By: Alba Bullimore on 11-01-2022 WBC corrected for nucl RBC Auto (Bld) [#/Vol] 7.8 10*3/uL 3.8-11.6 [facility] Lymphocytes Auto (Bld) [#/Vo l]Ordered By: Alba Bullimore on 11-01-2022 Lymphocytes (Bld) [#/Vol] 1.5 10*3/uL 1.00-4.8 [facility] Lymphocytes/100 WBC Auto (Bl d)Ordered By: Alba Bullimore on 11-01-2022 Lymphocytes/100 WBC (Bld) 19.6 % . [facility] MCH Auto (RBC) [Entitic mass ]Ordered By: Alba Bullimore on 11-01-2022 MCH (RBC) [Entitic mass] 28.3 pg 24.7-34.3 [facility] MCHC Auto (RBC) [Mass/Vol]Or dered By: Alba Bullimore on 11-01-2022 MCHC (RBC) [Mass/Vol] 33.9 g/dL 32.0-35.0 [facility] MCV Auto (RBC) [Entitic vol] Ordered By: Alba Bullimore on 11-01-2022 MCV (RBC) [Entitic vol] 83.3 fL 80-100 [facility] Monocyte distribution width [Entitic volume] in Blood by AutomatedOrdered By: Alba Bullimore on 11-01-2022 Monocyte distribution width Auto (Bld) [Entitic vol] 17.79 % 0.00-20.00 [facility] Monocytes Auto (Bld) [#/Vol] Ordered By: Alba Bullimore on 11-01-2022 Monocytes (Bld) [#/Vol] 0.5 10*3/uL 0.0-0.8 [facility] Monocytes/100 WBC Auto (Bld) Ordered By: Alba Bullimore on 11-01-2022 Monocytes/100 WBC (Bld) 6.9 % . [facility] Neutrophils Auto (Bld) [#/Vo l]Ordered By: Alba Bullimore on 11-01-2022 Neutrophils (Bld) [#/Vol] 5.4 10*3/uL 1.8-7.7 [facility] Neutrophils/100 WBC Auto (Bl d)Ordered By: Alba Bullimore on 11-01-2022 Neutrophils/100 WBC (Bld) 69.6 % . [facility] Nitrite Test strip Ql (U)Ord ered By: Alba Bullimore on 11-01-2022 Nitrite Ql (U) Negative Negative [facility] No Panel InformationOrdered By: Alba Wrenimore on 11-01-2022 Estimated GFR (CKD-EPI) > 60.0 mL/Min [facility] Creatinine Clearance (Chem 179.12 [facility] Nucleated erythrocytes [Pres ence] in Blood by Automated countOrdered By: Alba Wrenimore on 11-01-2022 Nucleated RBC Auto Ql (Bld) 0.1 /100{WBC} 0-0.5 [facility] Platelet mean volume Auto (B ld) [Entitic vol]Ordered By: Alba Bullimore on 11-01-2022 Platelet mean volume (Bld) [Entitic vol] 7.5 fL 6.3-10.7 [facility] Platelets Auto (Bld) [#/Vol] Ordered By: Alba Bullimore on 11-01-2022 Platelets (Bld) [#/Vol] 278 10*3/uL 150-450 [facility] Potassium [Moles/volume] in Serum or PlasmaOrdered By: Alba Bullimore on 11-01-2022 Potassium [Moles/Vol] 4.3 mmol/L 3.5-5.1 [facility] Protein Auto test strip (U) [Mass/Vol]Ordered By: Alba Wrenimore on 11-01-2022 Protein (U) [Mass/Vol] Negative Negative [facility] Protein [Mass/volume] in Ser um or PlasmaOrdered By: Alba Bullimore on 11-01-2022 Protein [Mass/Vol] 6.8 g/dL 6.4-8.9 [facility] RBC Auto (Bld) [#/Vol]Ordere d By: Alba Marshall on 11-01-2022 RBC (Bld) [#/Vol] 4.41 10*6/uL 3.60-5.00 [facility] Serum or plasma albumin/glob ulin mass ratioOrdered By: Alba Marshall on 11-01-2022 Albumin/Globulin [Mass ratio] 1.2 {ratio} [facility] Serum or plasma anion gap de terminationOrdered By: Alba Marshall on 11-01-2022 Anion gap [Moles/Vol] 10.7 mmol/L 6.0-15.0 [facility] Serum or plasma non-glucuron idated bilirubin measurement (mass/volume)Ordered By: Alba Marshall on 11-01-2022 Bilirubin.indirect [Mass/Vol] 0.2 mg/dL [facility] Sodium [Moles/volume] in Ser um or PlasmaOrdered By: Alba Marshall on 11-01-2022 Sodium [Moles/Vol] 139 mmol/L 136-145 [facility] Specific gravity Auto test s trip (U) [Rel density]Ordered By: Albayehuda Wrenlila on 11-01-2022 Specific gravity (U) [Rel density] 1.021 1.001-1.030 [facility] Squamous epithelial cells de tection in urine sediment by light microscopyOrdered By: Albayehuda Marshall on 11-01-2022 Epithelial cells.squamous LM Ql (Urine sed) 3-4 [HPF] 0-2 [facility] Urea nitrogen [Mass/volume] in Serum or PlasmaOrdered By: Alba Marshall on 11-01-2022 Urea nitrogen [Mass/Vol] 7 mg/dL 7-25 [facility] Urine bacteria detection by automated methodOrdered By: [facility] Bacteria Auto Ql (U) 1+ None Seen [facility] Comment on above: --- 11/01/22 1050 -- -Ur Bact previously reported as: 1+ H Microscopic results may be affected due to low specimen volume. Urine clarity by refractomet ry automatedOrdered By: Alba Marshall on 11-01-2022 Clarity Refractometry automated (U) Clear Clear [facility] Urine glucose measurement by automated test strip (mass/volume)Ordered By: Alba Marshall on 11-01-2022 Glucose Auto test strip (U) [Mass/Vol] Normal mg/dL Normal [facility] Urine hemoglobin detection b y automated test stripOrdered By: Alba Marshall on 11-01-2022 Hemoglobin Auto test strip Ql (U) 1+ Negative [facility] Urine leukocyte esterase det ection by automated test stripOrdered By: Alba Marshall on 11-01-2022 Leukocyte esterase Auto test strip Ql (U) Negative Negative [facility] Urobilinogen Auto test strip (U) [Mass/Vol]Ordered By: Alba Marshall on 11-01-2022 Urobilinogen (U) [Mass/Vol] Normal mg/dL Normal [facility] WBC Auto (Bld) [#/Vol]Ordere d By: Alba Marshall on 11-01-2022 WBC (Bld) [#/Vol] 7.8 10*3/uL 3.8-11.6 [facility] Yeast detection in urine sed iment by light microscopyOrdered By: Alba Marshall on 11-01-2022 Yeast LM Ql (Urine sed) None seen [HPF] None Seen [facility] Comment on above: --- 11/01/22 1050 [...] on 11-01-2022 pH (U) 6.5 [pH] 5.0-9.0 [facility] Alanine aminotransferase [En zymatic activity/volume] in Serum or PlasmaOrdered By: Peter Ahumada on 10-31-2022 ALT [Catalytic activity/Vol] 8 U/L 7-52 [facility] Albumin [Mass/volume] in Ser um or Plasma by Bromocresol green (BCG) dye binding methoOrdered By: Peter Ahumada on 10-31-2022 Albumin BCG dye [Mass/Vol] 3.8 g/dL 3.5-5.7 [facility] Alkaline phosphatase [Enzyma tic activity/volume] in Serum or PlasmaOrdered By: Peter Ahumada on 10-31-2022 ALP [Catalytic activity/Vol] 49 U/L 34-104 [facility] Aspartate aminotransferase [ Enzymatic activity/volume] in Serum or PlasmaOrdered By: Peter Ahumada on 10-31-2022 AST [Catalytic activity/Vol] 16 U/L 13-39 [facility] Basophils Auto (Bld) [#/Vol] Ordered By: Peter Ahumada on 10-31-2022 Basophils (Bld) [#/Vol] 0.1 10*3/uL 0.0-0.2 [facility] Basophils/100 WBC Auto (Bld) Ordered By: Peter Ahumada on 10-31-2022 Basophils/100 WBC (Bld) 0.9 % . [facility] Bilirubin.total [Mass/volume ] in Serum or PlasmaOrdered By: Peter Ahumada on 10-31-2022 Bilirubin [Mass/Vol] 0.3 mg/dL 0.3-1.0 [facility] Calcium [Mass/volume] in Ser um or PlasmaOrdered By: Peter Ahumada on 10-31-2022 Calcium [Mass/Vol] 9.0 mg/dL 8.6-10.3 [facility] Carbon dioxide, total [Moles /volume] in Serum or PlasmaOrdered By: Peter Ahumada on 10-31-2022 CO2 [Moles/Vol] 25.8 mmol/L 21.0-31.0 [facility] Chloride [Moles/volume] in S renetta or PlasmaOrdered By: Peter Ahumada on 10-31-2022 Chloride [Moles/Vol] 106 mmol/L 98-107 [facility] Cholesterol [Mass/volume] in Serum or PlasmaOrdered By: Peter Ahumada on 10-31-2022 Cholesterol [Mass/Vol] 152 mg/dL 140-200 [facility] Comment on above: Chol less than 200 m g/dl low riskChol 201-239 mg/dl borderline riskChol 240 mg/dl and greater high risk Cholesterol in LDL Calc [Mas s/Vol]Ordered By: Peter Ahumada on 10-31-2022 Cholesterol in LDL [Mass/Vol] 74 mg/dL 0-100 [facility] Comment on above: LDL ATP III CLASSIFI CATIONLDL less than 100 mg/dL OptimalLDL 100-129 mg/dL Near or above optimalLDL 130-159 mg/dL Borderline highLDL 160-189 mg/dL HighLDL greater than 189 mg/dL Very high Cholesterol in VLDL Calc [Ma ss/Vol]Ordered By: Peter Ahumada on 10-31-2022 Cholesterol in VLDL [Mass/Vol] 25 mg/dL [facility] Creatinine [Mass/volume] in Serum or PlasmaOrdered By: Peter Ahumada on 10-31-2022 Creatinine [Mass/Vol] 0.55 mg/dL 0.60-1.20 [facility] Eosinophils Auto (Bld) [#/Vo l]Ordered By: Peter Ahumada on 10-31-2022 Eosinophils (Bld) [#/Vol] 0.2 10*3/uL 0.0-0.45 [facility] Eosinophils/100 WBC Auto (Bl d)Ordered By: Peter Ahumada on 10-31-2022 Eosinophils/100 WBC (Bld) 2.9 % . [facility] Erythrocyte distribution wid th Auto (RBC) [Ratio]Ordered By: Peter Ahumada on 10-31-2022 Erythrocyte distribution width (RBC) [Ratio] 13.3 % 11.9-15.3 [facility] Globulin Calc (S) [Mass/Vol] Ordered By: Peter Ahumada on 10-31-2022 Globulin (S) [Mass/Vol] 2.8 g/dL [facility] Glucose [Mass/volume] in Ser um or PlasmaOrdered By: Peter Ahumada on 10-31-2022 Glucose [Mass/Vol] 98 mg/dL 70-100 [facility] Comment on above: ADA recommended refe rence rangeRandom Glucose Reference Range is dependent on time and content of last meal. Glucose of more than 200 mg/dL in a nonstressed, ambulatory subject supports the diagnosis of Diabetes Mellitus. Hematocrit Auto (Bld) [Volum e fraction]Ordered By: Peter Ahumada on 10-31-2022 Hematocrit (Bld) [Volume fraction] 37.3 % 34.0-46.4 [facility] Hemoglobin [Mass/volume] in BloodOrdered By: Peter Ahumada on 10-31-2022 Hemoglobin (Bld) [Mass/Vol] 12.4 g/dL 11.8-15.4 [facility] Leukocytes [#/volume] correc bryan for nucleated erythrocytes in Blood by Automated counOrdered By: Peter Ahumada on 10-31-2022 WBC corrected for nucl RBC Auto (Bld) [#/Vol] 8.2 10*3/uL 3.8-11.6 [facility] Lymphocytes Auto (Bld) [#/Vo l]Ordered By: Peter Ahumada on 10-31-2022 Lymphocytes (Bld) [#/Vol] 1.8 10*3/uL 1.00-4.8 [facility] Lymphocytes/100 WBC Auto (Bl d)Ordered By: Peter Ahumada on 10-31-2022 Lymphocytes/100 WBC (Bld) 21.7 % . [facility] MCH Auto (RBC) [Entitic mass ]Ordered By: Peter Ahumada on 10-31-2022 MCH (RBC) [Entitic mass] 28.0 pg 24.7-34.3 [facility] MCHC Auto (RBC) [Mass/Vol]Or dered By: Peter Ahumada on 10-31-2022 MCHC (RBC) [Mass/Vol] 33.3 g/dL 32.0-35.0 [facility] MCV Auto (RBC) [Entitic vol] Ordered By: Peter Ahumada on 10-31-2022 MCV (RBC) [Entitic vol] 84.1 fL 80-100 [facility] Monocytes Auto (Bld) [#/Vol] Ordered By: Peter Ahumada on 10-31-2022 Monocytes (Bld) [#/Vol] 0.5 10*3/uL 0.0-0.8 [facility] Monocytes/100 WBC Auto (Bld) Ordered By: Peter Ahumada on 10-31-2022 Monocytes/100 WBC (Bld) 6.2 % . [facility] Neutrophils Auto (Bld) [#/Vo l]Ordered By: Peter Ahumada on 10-31-2022 Neutrophils (Bld) [#/Vol] 5.6 10*3/uL 1.8-7.7 [facility] Neutrophils/100 WBC Auto (Bl d)Ordered By: Peter Ahumada on 10-31-2022 Neutrophils/100 WBC (Bld) 68.3 % . [facility] No Panel InformationOrdered By: Peter Ahumada on 10-31-2022 Estimated GFR (CKD-EPI) > 60.0 mL/Min [facility] Creatinine Clearance (Chem N/A [facility] Nucleated erythrocytes [Pres ence] in Blood by Automated countOrdered By: Peter Ahumada on 10-31-2022 Nucleated RBC Auto Ql (Bld) 0.1 /100{WBC} 0-0.5 [facility] Platelet mean volume Auto (B ld) [Entitic vol]Ordered By: Peter Ahumada on 10-31-2022 Platelet mean volume (Bld) [Entitic vol] 8.8 fL 6.3-10.7 [facility] Platelets Auto (Bld) [#/Vol] Ordered By: Peter Ahumada on 10-31-2022 Platelets (Bld) [#/Vol] 305 10*3/uL 150-450 [facility] Potassium [Moles/volume] in Serum or PlasmaOrdered By: Peter Ahumada on 10-31-2022 Potassium [Moles/Vol] 4.2 mmol/L 3.5-5.1 [facility] Protein [Mass/volume] in Ser um or PlasmaOrdered By: Peter Ahumada on 10-31-2022 Protein [Mass/Vol] 6.6 g/dL 6.4-8.9 [facility] RBC Auto (Bld) [#/Vol]Ordere d By: Peter Ahumada on 10-31-2022 RBC (Bld) [#/Vol] 4.44 10*6/uL 3.60-5.00 [facility] Serum or plasma albumin/glob ulin mass ratioOrdered By: Peter Ahumada on 10-31-2022 Albumin/Globulin [Mass ratio] 1.4 {ratio} [facility] Serum or plasma anion gap de terminationOrdered By: Peter Ahumada on 10-31-2022 Anion gap [Moles/Vol] 11.4 mmol/L 6.0-15.0 [facility] Serum or plasma high density lipoprotein (HDL) cholesterol measurementOrdered By: Peter Ahumada on 10-31-2022 Cholesterol in HDL [Mass/Vol] 53 mg/dL 35-85 [facility] Comment on above: HDL CHOL ATP-III CLA SSIFICATION Cardiovascular RiskHDL > or equal to 60 mg/dL LOWHDL < 40 mg/dL HIGH Serum or plasma total choles terol/high density lipoprotein (HDL) cholesterol mass ratOrdered By: Peter Ahumada on 10-31-2022 Cholesterol.total/Chol esterol in HDL [Mass ratio] 2.9 {ratio} <5.0 [facility] Sodium [Moles/volume] in Ser um or PlasmaOrdered By: Peter Ahumada on 10-31-2022 Sodium [Moles/Vol] 139 mmol/L 136-145 [facility] Thyrotropin [Units/volume] i n Serum or PlasmaOrdered By: Peter Ahumada on 10-31-2022 TSH Qn 0.61 m[IU]/L 0.45-5.33 [facility] Thyroxine (T4) free [Mass/vo lume] in Serum or PlasmaOrdered By: Peter Ahumada on 10-31-2022 Free T4 [Mass/Vol] 0.76 ng/dL 0.61-1.12 [facility] Triglyceride [Mass/volume] i n Serum or PlasmaOrdered By: Peter Ahumada on 10-31-2022 Triglyceride [Mass/Vol] 125 mg/dL 0-149 [facility] Comment on above: TRIG ATP III CLASSIF ICATIONTRIG less than 150 mg/dL NormalTRIG 150-199 mg/dL Borderline highTRIG 200-500 mg/dL High TRIG greater than 500 mg/dL Very highStandard traceable to the Center for Disease Conrtrol and Prevention (CDC) test method. Urea nitrogen [Mass/volume] in Serum or PlasmaOrdered By: Peter Ahumada on 10-31-2022 Urea nitrogen [Mass/Vol] 6 mg/dL 7-25 [facility] WBC Auto (Bld) [#/Vol]Ordere d By: Peter Ahumada on 10-31-2022 WBC (Bld) [#/Vol] 8.2 10*3/uL 3.8-11.6 [facility] Albumin [Mass/volume] in Ser um or PlasmaOrdered By: Peter Ahumada on 04-19-2022 Albumin [Mass/Vol] 3.2 g/dL 3.2-5.5 [facility] Basophils Auto (Bld) [#/Vol] Ordered By: Peter Ahumada on 04-19-2022 Basophils (Bld) [#/Vol] 0.0 10*3/uL 0.0-0.2 [facility] Basophils/100 WBC Auto (Bld) Ordered By: Peter Ahumada on 04-19-2022 Basophils/100 WBC (Bld) 0.7 % . [facility] Blood hemoglobin measurement (mass/volume)Ordered By: Peter Ahumada on 04-19-2022 Hemoglobin (Bld) [Mass/Vol] 12.3 g/dL 11.8-15.4 [facility] Blood leukocytes automated c ount (number/volume)Ordered By: Peter Ahumada on 04-19-2022 WBC (Bld) [#/Vol] 5.9 10*3/uL 4.5-11.0 [facility] Cholesterol [Mass/volume] in Serum or PlasmaOrdered By: Peter Ahumada on 04-19-2022 Cholesterol [Mass/Vol] 159 mg/dL 140-200 [facility] Comment on above: Chol less than 200 m g/dl low riskChol 201-239 mg/dl borderline riskChol 240 mg/dl and greater high risk Cholesterol in LDL Calc [Mas s/Vol]Ordered By: Peter Ahumada on 04-19-2022 Cholesterol in LDL [Mass/Vol] 84 mg/dL 0-100 [facility] Comment on above: LDL ATP III CLASSIFI CATIONLDL less than 100 mg/dL OptimalLDL 100-129 mg/dL Near or above optimalLDL 130-159 mg/dL Borderline highLDL 160-189 mg/dL HighLDL greater than 189 mg/dL Very high Cholesterol in VLDL Calc [Ma ss/Vol]Ordered By: Peter Ahumada on 04-19-2022 Cholesterol in VLDL [Mass/Vol] 22 mg/dL [facility] Creatinine and Glomerular fi ltration rate.predicted panel (S/P/Bld)Ordered By: Peter Ahumada on 04-19-2022 Creatinine [Mass/Vol] 0.58 mg/dL 0.44-1.03 [facility] Eosinophils Auto (Bld) [#/Vo l]Ordered By: Peter Ahumada on 04-19-2022 Eosinophils (Bld) [#/Vol] 0.1 10*3/uL 0.0-0.45 [facility] Eosinophils/100 WBC Auto (Bl d)Ordered By: Peter Ahumada on 04-19-2022 Eosinophils/100 WBC (Bld) 2.4 % . [facility] Erythrocyte distribution wid th Auto (RBC) [Ratio]Ordered By: Peter Ahumada on 04-19-2022 Erythrocyte distribution width (RBC) [Ratio] 13.4 % 11.9-15.3 [facility] Estimated glomerular filtrat ion rate (GFR) non- AmericanOrdered By: Peter Ahumada on 04-19-2022 GFR/1.73 sq M.predicted among non-blacks MDRD (S/P/Bld) [Vol rate/Area] > 60 mL/Min [facility] Globulin Calc (S) [Mass/Vol] Ordered By: Peter Ahumada on 04-19-2022 Globulin (S) [Mass/Vol] 3.1 g/dL [facility] Hematocrit Auto (Bld) [Volum e fraction]Ordered By: Peter Ahumada on 04-19-2022 Hematocrit (Bld) [Volume fraction] 37.1 % 34.0-46.4 [facility] Laboratory - Hematology and Cell countsOrdered By: Peter Ahumada on 04-19-2022 Nucleated RBC/100 WBC (Bld) [Ratio] 0.1 % 0-0.5 [facility] Lymphocytes Auto (Bld) [#/Vo l]Ordered By: Peter Ahumada on 04-19-2022 Lymphocytes (Bld) [#/Vol] 1.7 10*3/uL 1.00-4.8 [facility] Lymphocytes/100 WBC Auto (Bl d)Ordered By: Peter Ahumada on 04-19-2022 Lymphocytes/100 WBC (Bld) 28.8 % . [facility] MCH Auto (RBC) [Entitic mass ]Ordered By: Peter Ahumada on 04-19-2022 MCH (RBC) [Entitic mass] 27.8 pg 24.7-34.3 [facility] MCHC Auto (RBC) [Mass/Vol]Or dered By: Peter Ahumada on 04-19-2022 MCHC (RBC) [Mass/Vol] 33.2 g/dL 32.0-35.0 [facility] MCV Auto (RBC) [Entitic vol] Ordered By: Peter Ahumada on 04-19-2022 MCV (RBC) [Entitic vol] 83.6 fL 80-100 [facility] Monocytes Auto (Bld) [#/Vol] Ordered By: Peter Ahumada on 04-19-2022 Monocytes (Bld) [#/Vol] 0.4 10*3/uL 0.0-0.8 [facility] Monocytes/100 WBC Auto (Bld) Ordered By: Peter Ahumada on 04-19-2022 Monocytes/100 WBC (Bld) 6.6 % . [facility] Neutrophils Auto (Bld) [#/Vo l]Ordered By: Peter Ahumada on 04-19-2022 Neutrophils (Bld) [#/Vol] 3.6 10*3/uL 1.8-7.7 [facility] Neutrophils/100 WBC Auto (Bl d)Ordered By: Peter Ahumada on 04-19-2022 Neutrophils/100 WBC (Bld) 61.5 % . [facility] No Panel InformationOrdered By: Peter Ahumada on 04-19-2022 Estimated GFR () > 60 mL/Min [facility] Comment on above: GFR estimated refere nce range: According to KDOQI guidelines, <60 ml/min/1.73m2 is sufficient to diagnose a patient with chronic kidney disease. Pharmacy Creatinine Clearance (Chem N/A [facility] Platelet mean volume Auto (B ld) [Entitic vol]Ordered By: Peter Ahumada on 04-19-2022 Platelet mean volume (Bld) [Entitic vol] 8.9 fL 6.3-10.7 [facility] Platelets Auto (Bld) [#/Vol] Ordered By: Peter Ahumada on 04-19-2022 Platelets (Bld) [#/Vol] 319 10*3/uL 150-450 [facility] Protein [Mass/volume] in Ser um or PlasmaOrdered By: Peter Ahumada on 04-19-2022 Protein [Mass/Vol] 6.3 g/dL 6.1-7.9 [facility] RBC Auto (Bld) [#/Vol]Ordere d By: Peter Ahumada on 04-19-2022 RBC (Bld) [#/Vol] 4.43 10*6/uL 3.60-5.00 [facility] Serum or plasma alanine ny otransferase measurement without P-5'-P (enzymatic activiOrdered By: Peter Ahumada on 04-19-2022 ALT No additional P-5'-P [Catalytic activity/Vol] 9 U/L 10-60 [facility] Serum or plasma albumin/glob ulin mass ratioOrdered By: Peter Ahumada on 04-19-2022 Albumin/Globulin [Mass ratio] 1.0 {ratio} [facility] Serum or plasma alkaline deirdre sphatase measurement (enzymatic activity/volume)Ordered By: Peter Ahumada on 04-19-2022 ALP [Catalytic activity/Vol] 41 U/L 32-92 [facility] Serum or plasma anion gap de terminationOrdered By: Peter Ahumada on 04-19-2022 Anion gap [Moles/Vol] 13.9 mmol/L 6.0-15.0 [facility] Serum or plasma aspartate am inotransferase measurement (enzymatic activity/volume)Ordered By: Peter Ahumada on 04-19-2022 AST [Catalytic activity/Vol] 15 U/L 10-42 [facility] Serum or plasma calcium scotty urement (mass/volume)Ordered By: Peter Ahumada on 04-19-2022 Calcium [Mass/Vol] 8.8 mg/dL 8.2-10.2 [facility] Serum or plasma chloride francoise surement (moles/volume)Ordered By: Peter Ahumada on 04-19-2022 Chloride [Moles/Vol] 100 mmol/L 95-114 [facility] Serum or plasma glucose scotty urement (mass/volume)Ordered By: Peter Ahumada on 04-19-2022 Glucose [Mass/Vol] 87 mg/dL 70-100 [facility] Comment on above: ADA recommended refe rence rangeRandom Glucose Reference Range is dependent on time and content of last meal. Glucose of more than 200 mg/dL in a nonstressed, ambulatory subject supports the diagnosis of Diabetes Mellitus. Serum or plasma high density lipoprotein (HDL) cholesterol measurementOrdered By: Peter Ahumada on 04-19-2022 Cholesterol in HDL [Mass/Vol] 53 mg/dL 35-85 [facility] Comment on above: HDL CHOL ATP-III CLA SSIFICATION Cardiovascular RiskHDL > or equal to 60 mg/dL LOWHDL < 40 mg/dL HIGH Serum or plasma potassium me asurement (moles/volume)Ordered By: Peter Ahumada on 04-19-2022 Potassium [Moles/Vol] 3.9 mmol/L 3.5-5.1 [facility] Serum or plasma sodium measu rement (moles/volume)Ordered By: Peter Ahumada on 04-19-2022 Sodium [Moles/Vol] 136 mmol/L 136-146 [facility] Serum or plasma total biliru bin measurement (mass/volume)Ordered By: Peter Ahumada on 04-19-2022 Bilirubin [Mass/Vol] 0.4 mg/dL 0.3-1.2 [facility] Serum or plasma total carbon dioxide measurement (moles/volume)Ordered By: Peter Ahumada on 04-19-2022 CO2 [Moles/Vol] 26.0 mmol/L 22.0-30.0 [facility] Serum or plasma total choles terol/high density lipoprotein (HDL) cholesterol mass ratOrdered By: Peter Ahumada on 04-19-2022 Cholesterol.total/Chol esterol in HDL [Mass ratio] 3.0 {ratio} <5.0 [facility] Serum or plasma urea nitroge n measurement (mass/volume)Ordered By: Peter Ahumada on 04-19-2022 Urea nitrogen [Mass/Vol] 5 mg/dL 9-23 [facility] TSH DL <= 0.005 mIU/L QnOrde red By: Peter Ahumada on 04-19-2022 TSH Qn 1.94 m[IU]/L 0.45-5.33 [facility] Thyroxine (T4) free [Mass/vo lume] in Serum or PlasmaOrdered By: Peter Ahumada on 04-19-2022 Free T4 [Mass/Vol] 0.69 ng/dL 0.61-1.12 [facility] Triglyceride [Mass/volume] i n Serum or PlasmaOrdered By: Peter Ahumada on 04-19-2022 Triglyceride [Mass/Vol] 111 mg/dL 35-149 [facility] Comment on above: TRIG ATP III CLASSIF ICATIONTRIG less than 150 mg/dL NormalTRIG 150-199 mg/dL Borderline highTRIG 200-500 mg/dL High TRIG greater than 500 mg/dL Very highStandard traceable to the Center for Disease Conrtrol and Prevention (CDC) test method. CNOVon 10-13-2021 CNOV Office Visit ([id number] ) -------- DARLING KHANNA ([id number]) 1980 F Date Time Provider Department 10/13/21 1:30 PM KATE DANIEL [id number] During your visit today, we recorded the following information about you: Temperature Pulse Blood pressure Weight 97.7 degrees 68/minute 112/55 115.2 kg Height 1.829 m Kate Daniel MD 10/17/2021 1:50 PM Signed Assessment ESTABLISHED PATIENT Darling Khanna is a 40 year old female with a right posterior liver subcapsular fluid collection ? 03/03/2021: Patient presented to [facility] ER on 02/08/2021 for 2 days for acute ride sided abdominal/flank pain, right shoulder discomfort and nausea. She was diagnosed with Klebsiella pneumoniae UTI and was discharged with oral keflex and zofran. Patient represented to ER on 02/09/2021 for the continued complaints of pain. ? Referral From:?PCP- Peter Ahumada, DO Reason:?right abdominal pain pain; liver?fluid collection? ? Received Records From:? 02/08/2021 ER Report [facility] 02/09/2021 ER Report [facility] 02/15/2021 PCP Office note ? Visited [...] gradually improving. US of ovaries yesterday at [facility]. Scheduled for upper GI at end of month. Gained?50 pounds since July?(was in [place] for 3 months, drank a lot); diagnosed [...] well. She did spend 3 months in [place] and did not have any issues, hospitalizations [...] which included preparing to see the patient, [id number] patient care and completing clinical documentation. MD Jayne Garrido Ma 10/13/2021 1:33 PM Signed What is the reason for your visit today? Follow up Who is your referring physician? Are you having poor oral intake? NO Have you had unintentional weight loss of 15 lbs/7 Kg in the last 3-6 months? NO Bowels: regular Wound: Temperature: No Drains: No Referring Provider: KATE DANIEL [[id number]] Allergies As of Date: 10/13/2021 Noted Allergy [...] of 05/10 (more content not included)... [facility] Mayela 09-30-2021 [facility] Telephone ([id number]) -------- DARLING KHANNA ([id number]) 1980 F Date Time Provider Department 09/30/21 KATE DANIEL [id number] During your visit today, we recorded the following information about you: Sujatha Tomas 09/30/2021 9:00 AM Signed Called patient to reschedule her 10/13 in person to virtual. She would like to keep in person. She also wants to know if a CT or MRI can be ordered of her pancreas abdomen as she hasn't had anything done recently. She can be reached at [phone]. Talat Armendariz RN 10/10/2021 11:29 AM Signed [...] 05/10/2018: BC Problem List As Of Date 09/30/2021 Noted Resolved Chronic pain of right knee [M25.561, G89.29] 11/12/2017 Pain in right foot [M79.671] 11/26/2017 Encounter Status:Closed by TALAT ARMENDARIZ RN on 10/10/21 [facility] CNOVon 04-07-2021 CNOV Office Visit ([id number] ) -------- DARLING KHANNA ([id number]) 1980 F Date Time Provider Department 04/07/21 2:30 PM KATE DANIEL [id number] During your visit today, we recorded the following information about you: Temperature Pulse Blood pressure Weight 97.5 degrees 95/minute 136/77 109.3 kg Height 1.829 m Jayne Aguila Dc 04/07/2021 2:31 PM Signed What is the [...] subcapsular fluid collection 03/03/2021: Patient presented to [facility] ER on 02/08/2021 for 2 days for acute ride sided abdominal/flank pain, right shoulder discomfort and nausea. She was diagnosed with Klebsiella pneumoniae UTI and was discharged with oral keflex and zofran. Patient represented to ER on 02/09/2021 for the continued complaints of pain. ? Referral From:?PCP- Peter Ahumada, DO Reason:?right abdominal pain pain; liver?fluid collection? ? Received Records From:? 02/08/2021 ER Report [facility] 02/09/2021 ER Report [facility] 02/15/2021 PCP Office note ? Visited [...] gradually improving. US of ovaries yesterday at [facility]. Scheduled for upper GI at end of month. Gained 50 pounds since July (was in [place] for 3 months, drank a lot); diagnosed [...] which included preparing to see the patient, [id number] patient care and completing clinical documentation. Kate Daniel MD Referring Provider: KATE DANIEL [[id number]] Allergies As of Date: 04/07/2021 Noted Allergy [...] Temperature: No (more content not included)... [facility] Treatment Team (ANSHUL VILLAFUERTE) -------- DARLING KHANNA ([id number]) 1980 F Date Time Provider Department 03/22/21 [...] findings to suggest etiology Pre-conference plan (from [employer]): - Observation and serial imaging Imaging Review: [...] Status:Closed by WILLIAM DE LEÓN on 03/23/21 [facility] CNOVon 03-03-2021 CNOV Office Visit ([id number] ) -------- DARLING KHANNA ([id number]) 1980 F Date Time Provider Department 03/03/21 10:00 AM KATE DANIEL [id number] During your visit today, we recorded the [...] 40 year old female Patient presented to [facility] ER on 02/08/2021 for 2 days for [...] ? Received Records From: 02/08/2021 ER Report [facility] 02/09/2021 ER Report [facility] 02/15/2021 PCP Office note Visited ER [...] gradually improving. US of ovaries yesterday at [facility]. Scheduled for upper GI at end of month. Gained 50 pounds since July (was in [place] for 3 months, drank a lot); diagnosed [...] was malignant. Seen by Dr. Haines on [facility], in [facility]; denies chemotherapy or radiation. Hernia repair [...] cm (6') (more content not included)... [facility] CNPNon 02-23-2021 CNPN Telephone ([facility]) -------- DARLING KHANNA ([id number]) 1980 F Date Time Provider Department 02/23/21 KATE DANIEL [facility] During your visit today, we recorded the following information about you: Talat Armendariz RN 02/23/2021 10:02 AM Addendum Hepatobiliary Surgery Consult HPI: Patient presented to [facility] ER on 02/08/2021 for 2 days for [...] collection Received Records From: 02/08/2021 ER Report [facility] 02/09/2021 ER Report [facility] 02/15/2021 PCP Office note Records Review BMI 33 Current OCP Imagin02/08/2021 CT A/P wo IVCON (Report [facility]- report rec'd) - minor basilar atelectasis or scarring - nonspecific lymph nodes - tiny umbilical hernia containing fat - no intra hepatic masses are noted - no bowel or urinary tract obstructions - no acute findings 02/08/2021 Ultrasound RUQ (Report [facility]- report rec'd) - unremarkable - no evidence of gallstones, gallbladder wall thickening, or ductal dilation 02/15/2021 CT A/P w IVCON (Report [facility]- report rec'd) - no acute abdominal or pelvis abnormality - indeterminate liver lesion: ill defined low attenuation lesion measuring at least 2.5cm in the medial segment of the left lobe of the liver posteriorly 02/17/2021 MRI Abdomen w/wo IVCON (Report [facility]- report rec'd) - unremarkable size of [...] months 02/22/2021 CT A/P w IVCON (Report [facility]- report rec'd) - 62mm x 20mm [...] 8:26 AM Signed Patient's records scanned into Epic and imaging downloaded from [facility], please review. Tatyana Kilgore Pss 02/25/2021 9:53 AM Signed Scheduled patient for new consult on 03/03/2021. 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] Consult [173] Prescriptions as [...] Status:Closed by TATYANA PEDRO on 02/25/21 [facility] 02-22-2021 Amylase [Catalytic activity/Vol] 48 U/L Normal 31-110 [facility] Comment on above: Performed By: #### L IPA, CMP, SHAI #### [facility] [address], [place] [address] Ruy Ayleen CBC AUTO DIFFon 02-22-2021 BASO # 0.1 103/ul Normal 0.0-0.1 [facility] Comment on above: Performed By: #### C BC #### [facility] [address], [place] [address] Ruy Ayleen Basophils/100 WBC (Bld) 0.7 % Normal 0.2-2.0 [facility] Comment on above: Performed By: #### C BC #### [facility] [address], [place] [address] Ruy Ayleen EO # 0.1 103/ul Normal 0.0-0.7 [facility] Comment on above: Performed By: #### C BC #### [facility] [address], [place] [address] Ruy Ayleen Eosinophils/100 WBC (Bld) 1.2 % Normal 0.9-7.0 [facility] Comment on above: Performed By: #### C BC #### [facility] [address], [place] [address] Ruy Ayleen Erythrocyte distribution width (RBC) [Ratio] 12.6 % Normal 11.0-15.0 [facility] Comment on above: Performed By: #### C BC #### [facility] [address] [place] [id number] Ruy Ayleen Hematocrit (Bld) [Volume fraction] 38.7 % Normal 36.0-48.0 [facility] Comment on above: Performed By: #### C BC #### [facility] [address] [place] [id number] Ruy Ayleen Hemoglobin (Bld) [Mass/Vol] 12.6 g/dL Normal 12.0-16.0 [facility] Comment on above: Performed By: #### C BC #### [facility] [address] [place] [address] Ruy Ayleen IG # 0.02 10e3/ul Normal 0.00-0.03 [facility] Comment on above: Performed By: #### C BC #### [facility] [address] [place] [address] Ruy Ayleen IG % 0.2 % Normal 0.0-0.5 [facility] Comment on above: Performed By: #### C BC #### [facility] [address] [place] [address] Ruy Ayleen LYMPH # 2.4 103/ul Normal 1.2-3.8 [facility] Comment on above: Performed By: #### C BC #### [facility] [address] [place] [address] Ruy Abbasi Lymphocytes/100 WBC (Bld) 22.4 % Normal 20.5-60.0 [facility] Comment on above: Performed By: #### C BC #### [facility] [address] [place] [address] Ruyradhames Abbasi MANUAL DIFF REQ NO Normal [facility] Comment on above: Performed By: #### C BC #### [facility] [address] [place], [place] [id number] Ruyradhames Abbasi MCH (RBC) [Entitic mass] 27.7 pg Normal 26.7-34.0 [facility] Comment on above: Performed By: #### C BC #### [facility] [address] [place] [id number] Ruyradhames Abbasi MCHC (RBC) [Mass/Vol] 32.6 g/dL Normal 29.9-35.2 [facility] Comment on above: Performed By: #### C BC #### [facility] [address] [place] [id number] Ruyradhames Abbasi MCV (RBC) [Entitic vol] 85.1 fL Normal 81.0-99.0 [facility] Comment on above: Performed By: #### C BC #### [facility] [address] [place] [id number] Ruy Ayleen MONO # 0.7 103/ul Normal 0.3-0.8 [facility] Comment on above: Performed By: #### C BC #### [facility] [address] [place] [id number] Ruy Ayleen Monocytes/100 WBC (Bld) 6.5 % Normal 1.7-12.0 [facility] Comment on above: Performed By: #### C BC #### [facility] [address] [place] [id number] Ruy Ayleen NEUT # 7.3 103/ul Critically high 1.4-6.5 [facility] Comment on above: Performed By: #### C BC #### [facility] [address] [place] [id number] Ruy Ayleen Neutrophils/100 WBC (Bld) 69.0 % Normal 43.0-75.0 [facility] Comment on above: Performed By: #### C BC #### [facility] [address] [place] [id number] Ruy Ayleen Platelet mean volume (Bld) [Entitic vol] 9.3 fL Critically low 9.5-13.5 [facility] Comment on above: Performed By: #### C BC #### [facility] [address] [place] [id number] Ruy Ayleen PLT 324 103/ul Normal 150-450 [facility] Comment on above: Performed By: #### C BC #### [facility] [address] [place] [id number] Ruy Ayleen RBC 4.55 106/ul Normal 4.20-5.40 [facility] Comment on above: Performed By: #### C BC #### [facility] [address] [place] [address] Ruy Abbasi WBC 10.6 103/ul Normal 4.0-11.0 [facility] Comment on above: Performed By: #### C BC #### [facility] [address] [place] [address] ABD/PELV W CONon 02-23-20 [...] MARINA HERNANDEZ Date: 2021-02-22 03:10 Normal [facility] D-DIMERon 02-22-2021 D-DIMER 0.40 mg/L FEU Normal 0.19-0.50 [facility] Comment on above: Performed By: #### D DIM #### [facility] Laboratory [address] [place] [address] Ruy Ayleen D-DIMER COMMENTS SEE BELOW Normal [facility] Comment on above: Result Comment: Incr [...] hospitalization. Performed By: #### D DIM #### [facility] Laboratory [address] [place] [address] Ruy Abbasi LIPASEon 02-22-2021 Lipase [Catalytic activity/Vol] 120.0 U/L Normal 23.0-300.0 [facility] Comment on above: Performed By: #### L IPA, CMP, SHAI #### [facility] Laboratory [address] [place] [address] Ruy Abbasi MONOon 02-22-2021 Monocytes (Bld) [#/Vol] Negative Normal NEGATIVE [facility] Comment on above: Performed By: #### M IGOR #### [facility] Laboratory [address] [place] [address] Ruy Ayleen OT-CT ABD/PELVIS W CON IMPOR Ton 02-22-2021 OT-CT ABD/PELVIS W CON IMPORT Images were obtained outside of [facility] [id number] [facility] OT-CT ABD/PELVIS W CON IMPORT Images were obtained outside of [facility] [id number] Normal [facility] PREG HCG QUALon 02-22-2021 , QUAL Negative Normal NEGATIVE [facility] Comment on above: Performed By: #### P REG #### [facility] Laboratory [address] [place] [address] Ruy Abbasi PROF 14(COMP METB)on 021 Albumin [Mass/Vol] 3.2 g/dL Critically low 3.5-5.0 Th e [facility] Comment on above: Performed By: #### L IPA, CMP, SHAI #### [facility] [address] [address] Ruy Ayleen Albumin/Globulin [Mass ratio] 0.7 {ratio} Normal [facility] Comment on above: Performed By: #### L IPA, CMP, SHAI #### [facility] [address] [id number] Ruy Ayleen ALP [Catalytic activity/Vol] 54 U/L Normal 38-126 [facility] Comment on above: Performed By: #### L IPA, CMP, SHAI #### [facility] [address] [address] Ruy Ayleen ALT [Catalytic activity/Vol] 11 U/L Normal 9-52 [facility] Comment on above: Performed By: #### L IPA, CMP, SHAI #### [facility] [address] [address] Ruy Ayleen Anion gap [Moles/Vol] 11.6 mmol/L Normal [facility] Comment on above: Performed By: #### L IPA, CMP, SHAI #### [facility] [address] [address] Ruy Ayleen AST [Catalytic activity/Vol] 12 U/L Critically low 14-36 [facility] Comment on above: Performed By: #### L IPA, CMP, SHAI #### [facility] [address] [address] Ruy Ayleen Bilirubin [Mass/Vol] 0.2 mg/dL Normal 0.2-1.3 [facility] Comment on above: Performed By: #### L IPA, CMP, SHAI #### [facility] [address] [address] Ruy Ayleen Calcium [Mass/Vol] 9.2 mg/dL Normal 8.4-10.2 [facility] Comment on above: Performed By: #### L IPA, CMP, SHAI #### [facility] [address] [address] Ruy Ayleen Chloride [Moles/Vol] 104 mmol/L Normal 98-107 [facility] Comment on above: Performed By: #### L IPA, CMP, SHAI #### [facility] [address] [address] Ruy Ayleen CO2 [Moles/Vol] 29.7 mmol/L Normal 22.0-30.0 [facility] Comment on above: Performed By: #### L IPA, CMP, SHAI #### [facility] [address] [address] Ruy Ayleen Creatinine [Mass/Vol] 0.74 mg/dL Normal 0.52-1.04 [facility] Comment on above: Performed By: #### L IPA, CMP, SHAI #### [facility] [address] [address] Ruy Ayleen EGFR-AF SERBIAN >60 Normal >=60 [facility] Comment on above: Performed By: #### L IPA, CMP, SHAI #### [facility] [address] [address] Ruy Ayleen EGFR-NON AF SERBIAN >60 Normal >=60 [facility] Comment on above: Performed By: #### L IPA, CMP, SHAI #### [facility] [address] [address] Ruy Ayleen Globulin (S) [Mass/Vol] 4.4 g/dL Normal [facility] Comment on above: Performed By: #### L IPA, CMP, SHAI #### [facility] [address] [address] Ruy Ayleen Glucose [Mass/Vol] 104 mg/dL Normal 74-106 [facility] Comment on above: Performed By: #### L IPA, CMP, SHAI #### [facility] [address] [address] Ruy Ayleen Potassium [Moles/Vol] 4.3 mmol/L Normal 3.4-5.0 [facility] Comment on above: Performed By: #### L IPA, CMP, SHAI #### [facility] [address] [address] Ruy Ayleen Protein [Mass/Vol] 7.6 g/dL Normal 6.1-8.2 [facility] Comment on above: Performed By: #### L IPA, CMP, SHAI #### [facility] [address] [place], [place] [address] Ruy Abbasi Sodium [Moles/Vol] 141 mmol/L Normal 137-145 [facility] Comment on above: Performed By: #### L IPA, CMP, SHAI #### [facility] [address] [address] Ruy Ayleen Urea nitrogen [Mass/Vol] 9.0 mg/dL Normal 7.0-17.0 [facility] Comment on above: Performed By: #### L IPA, CMP, SHAI #### [facility] [address] [id number] Ruy Ayleen Urea nitrogen/Creatinine [Mass ratio] 12.2 mg/mg Normal [facility] Comment on above: Performed By: #### L IPA CMP, SHAI #### [facility] [address] [id number] Ruy Abbasi MR-MR abdomen wo/w con IMPOR Ton 02-16-2021 MR-MR abdomen wo/w con IMPORT Images were obtained outside of [facility] [id number] Normal [facility] CT-CT abdomen pelvis w con I MPORTon 02-15-2021 CT-CT abdomen pelvis w con IMPORT Images were obtained outside of [facility] [id number] Normal [facility] CT-CT abdomen pelvis wo con IMPORTon 02-08-2021 CT-CT abdomen pelvis wo con IMPORT Images were obtained outside of [facility] [id number] Normal [facility] US-US gall bladder IMPORTon 02-08-2021 US-US gall bladder IMPORT Images were obtained outside of [facility] [id number] [facility] CNOVon 12-28-2020 CNOV Office Visit (LOORRM ) -------- DARLING KHANNA ([id number]) 1980 F Date Time Provider Department 12/28/20 3:30 PM CAST TECH YANIRA MARCANO During your visit today, we recorded the following information about you: Tracey Hair Ma 12/28/2020 4:25 PM Signed Dispensed XL/XXL Reaction brace for the Right knee. Dispensed by [employer]. Instructions were given on application/adjustments. She will f/u as scheduled/prn. Tracey Hair MA,ROT Referring Provider: ISHAN YUSUF [[id number]] Allergies As of Date: 12/28/2020 Noted Allergy [...] Status:Closed by TRACEY HAIR MA on 12/28/20 [facility] CNOV Office Visit (LOORRM ) -------- DARLING KHANNA ([id number]) 1980 F Date Time Provider Department 12/28/20 [...] was performed today. CLINICAL IMPRESSION / ASSESSMENT: (J03.821N) Closed nondisplaced fracture of proximal phalanx of [...] little finger with routine healing, subsequent encounter [S62.384D] Other Visit Diagnosis:Patellofemoral arthralgia of right knee [...] Encounter Status:Closed by ISHAN YUSUF on 12/28/20 [facility] CNOVon 11-30-2020 CNOV Office Visit (LOORRM ) -------- DARLING KHANNA ([id number]) 1980 F Date Time Provider Department 11/30/20 3:30 PM ISHAN YUSUF JEET During your visit today, we recorded [...] results and radiologist's interpretation, available in the [facility] health record. Images were reviewed with [...] Swelling Date Reviewed: 11/30/2020 Reviewed by: William Henry Ma - Fully Assessed Reason for Visit: Pain [78] Primary Visit Diagnosis:Closed nondisplaced fracture of proximal phalanx of left little finger with routine healing, subsequent encounter [W04.247J] Order(s):XR HAND GENERAL 3V PA/LAT/OBL LT [[id number]] Order #: [id number] FUTURE CONSULT TO ASSESSMENT NURSE [[id number]] Order #: [id number]: 1 FUTURE Prescriptions as of 11/30/2020 Sig: [...] Encounter Status:Closed by ISHAN YUSUF on 11/30/20 [facility] XR HAND 3V PA/LAT/OBL LTon [...] fractures. IMPRESSION: Healing 5th proximal phalanx fracture Social Service Agency Director: WILBERT Transcribe Date/Time: Nov 30 2020 4:18P Dictated by : JUDITH FUENTES MD This examination was interpreted and the report reviewed and electronically signed by: JUDITH FUENTES MD on Nov 30 2020 4:19PM EST [id number] [facility] XR Hand - left PA and Latera l and Obliqueon 11-30-2020 IMPRESSION: Healing 5th proximal phalanx fracture Social Service Agency Director: WILBERT Transcribe Date/Time: Nov 30 2020 4:18P [...] No additional fractures. DIVISION OF RADIOLOGY Provider, [facility] Wilfredo Bear - 11/30/2020 * * *Final [...] IMPRESSION IMPRESSION: Healing 5th proximal phalanx fracture Social Service Agency Director: Gydget Transcribe Date/Time: Nov 30 2020 4:18P Dictated by : JUDITH FUENTES MD This examination was interpreted and the report reviewed and electronically signed by: JUDITH FUENTES MD on Nov 30 2020 4:19PM EST [facility] Radiology Study observation (narrative) [facility] XR Hand - left PA and Latera l and ObliqueOrdered By: Ccf Provider on 11-30-2020 [facility] CNOVon 11-18-2020 CNOV Office Visit (LOORRM ) -------- DARLING KHANNA ([id number]) 1980 F Date Time Provider Department 11/18/20 [...] results and radiologist's interpretation, available in the [facility] health record. Images were reviewed with the patient/family members in the office today. My personal interpretation of the performed imaging is intra-articular proximal phalanx fracture CLINICAL IMPRESSION / ASSESSMENT: (N35.705V) Closed nondisplaced fracture of proximal phalanx of [...] [S62.647A] Order(s):XR HAND GENERAL 3V PA/LAT/OBL LT [[id number]] Order #: [id number] FUTURE Prescriptions as of 11/18/2020 Sig: OMEPRAZOLE [...] Encounter Status:Closed by ISHAN YUSUF on 11/18/20 [facility] XR HAND 3V PA/LAT/OBL LTon 0 [...] unchanged. IMPRESSION: Healing fifth proximal phalanx fracture. Social Service Agency Director: WILBERT Transcribe Date/Time: Nov 18 2020 8:15P Dictated by : ADRIANE CAMPOS MD This examination was interpreted and the report reviewed and electronically signed by: ADRIANE CAMPOS MD on Nov 18 2020 8:27PM EST [id number] [facility] XR Hand - left PA and Latera l and Obliqueon 11-18-2020 IMPRESSION: Healing fifth proximal phalanx fracture. Social Service Agency Director: WILBERT Transcribe Date/Time: Nov 18 2020 8:15P [...] fracture. Remainder unchanged. DIVISION OF RADIOLOGY Provider, [facility] - 11/18/2020 * * *Final Report* [...] IMPRESSION IMPRESSION: Healing fifth proximal phalanx fracture. Social Service Agency Director: WILBERT Transcribe Date/Time: Nov 18 2020 8:15P Dictated by : ADRIANE CAMPOS MD This examination was interpreted and the report reviewed and electronically signed by: ADRIANE CAMPOS MD on Nov 18 2020 8:27PM EST [facility] Radiology Study observation (narrative) [facility] XR Hand - left PA and Latera l and ObliqueOrdered By: Ccf Provider on 11-18-2020 [facility] CNOVon 11-04-2020 CNOV Office Visit (ORAVON ) -------- DARLING KHANNA ([id number]) 1980 F Date Time Provider Department 11/04/20 2:00 PM BOB MILLAN During your visit today, we recorded the following information about you: Bob Millan DO 11/04/2020 2:12 PM Signed [facility] Office Visit Documentation Note [facility] Sports Medicine Orthopaedic and Rheumatologic [place] REASON FOR VISIT / CHIEF COMPLAINT SERVICE [...] results and radiologist's interpretation, available in the [facility] health record. Images were reviewed with the patient/family members in the office today. My personal interpretation of the performed imaging is Has IA prox phalanx fracture at PIP ASSESSMENT / PLAN CLINICAL IMPRESSION / ASSESSMENT: (Q10.926P) Closed nondisplaced fracture of proximal phalanx of [...] Millan D.O. [facility] Orthopaedic and Rheumatologic [place] Team Physician, [facility] Consulting Physician, [employer], Manager Field Sales [phone] Patient verbalizes understanding and agrees with the treatment plan as detailed above. Referring Provider: SELF [[id number]] Allergies As of Date: 11/04/2020 Noted Allergy Reaction INDOMETHACIN 05/10/2018 7 - Swelling Date Reviewed: 11/04/2020 Reviewed by: Juaquin Farmer - Fully Assessed Reason for Visit: New [[id number]] Primary Visit Diagnosis:Closed nondisplaced fracture of proximal [...] for Dr. Yusuf or Shayla Silva in [place]. Follow-up and Disposition History Recorded Encounter Status:Closed by BOB MILLAN DO on 11/04/20 [facility] DX-XR HAND COMPLETE LEFT IMP [facility] 10-30-2020 DX-XR HAND COMPLETE LEFT IMPORT Images were obtained outside of [facility] [id number] [facility] Vital Signs Date Time Vital Sign Value Performing Clinician Facility 09-10-2024 15:25-0500 Body height 182.9 cm [employer] Work Phone: [facility] 09-10-2024 15:25-0500 Body mass index (BMI) [Ratio] 27.8 kg/m2 [employer] Work Phone: [facility] 09-10-2024 15:25-0500 Body weight 92.99 kg [employer] Work Phone: [facility] 09-10-2024 15:25-0500 Diastolic blood pressure 70 mm[Hg] [employer] Work Phone: [facility] 09-10-2024 15:25-0500 Systolic blood pressure 120 mm[Hg] Alber Haines DO Work Phone: [facility] 09-09-2024 14:37-0500 Body height 182.88 cm Peter Ahumada DO Work Phone: [facility] 09-09-2024 14:37-0500 Body mass index (BMI) [Ratio] 27.9 kg/m2 Peter Shens DO Work Phone: [facility] 09-09-2024 14:37-0500 Body weight 93.44 kg Peter Shens DO Work Phone: [facility] 09-09-2024 14:37-0500 Diastolic blood pressure 70 mm[Hg] Peter Acs DO Work Phone: [facility] 09-09-2024 14:37-0500 Heart rate 74 /min Peter Shens DO Work Phone: [facility] 09-09-2024 14:37-0500 SaO2% (BldA) [Mass fraction] 95 % Pteer Shens DO Work Phone: [facility] 09-09-2024 14:37-0500 Systolic blood pressure 126 mm[Hg] Peter Acs DO Work Phone: [facility] 06-10-2024 15:00-0500 Body height 182.88 cm Peter Shens DO Work Phone: [facility] 06-10-2024 15:00-0500 Body mass index (BMI) [Ratio] 32.3 kg/m2 Peterluiza Shens DO Work Phone: [facility] 06-10-2024 15:00-0500 Body weight 107.95 kg Peterluiza Shens DO Work Phone: [facility] 06-10-2024 15:00-0500 Diastolic blood pressure 60 mm[Hg] Peter Kuns DO Work Phone: [facility] 06-10-2024 15:00-0500 Heart rate 75 /min Peter Kuns DO Work Phone: [facility] 06-10-2024 15:00-0500 Respiratory rate 16 /min Peter Kuns DO Work Phone: [facility] 06-10-2024 15:00-0500 SaO2% (BldA) [Mass fraction] 96 % Peter Acs DO Work Phone: [facility] 06-10-2024 15:00-0500 Systolic blood pressure 98 mm[Hg] Peter Kuns DO Work Phone: [facility] 03-06-2024 14:27-0400 Body height 182.88 cm DO Peter Kuns Work Phone: [facility] 03-06-2024 14:27-0400 Body mass index (BMI) [Ratio] 36.4 kg/m2 DO Peter Kuns Work Phone: [facility] 03-06-2024 14:27-0400 Body weight 122.01 kg DO Peter Kuns Work Phone: [facility] 03-06-2024 14:27-0400 Diastolic blood pressure 72 mm[Hg] DO Peter Kuns Work Phone: [facility] 03-06-2024 14:27-0400 Heart rate 77 /min DO Peter Kuns Work Phone: [facility] 03-06-2024 14:27-0400 Respiratory rate 16 /min DO Peter Kuns Work Phone: [facility] 03-06-2024 14:27-0400 SaO2% (BldA) [Mass fraction] 96 % DO Peter Kuns Work Phone: [facility] 03-06-2024 14:27-0400 Systolic blood pressure 118 mm[Hg] DO Peter Ahumada Work Phone: [facility] 01-29-2024 14:05-0400 Diastolic blood pressure 78 mm[Hg] DO Peterluiza Ahumada Work Phone: [facility] 01-29-2024 14:05-0400 Heart rate 91 /min DO Peter Ahumada Work Phone: [facility] 01-29-2024 14:05-0400 Respiratory rate 16 /min DO Peter Ahumada Work Phone: [facility] 01-29-2024 14:05-0400 SaO2% (BldA) [Mass fraction] 94 % DO Peter Ahumada Work Phone: [facility] 01-29-2024 14:05-0400 Systolic blood pressure 124 mm[Hg] DO Peter Ahumada Work Phone: [facility] 01-29-2024 13:05-0400 Body temperature 97 [degF] DO Peter Ahumada Work Phone: [facility] 01-29-2024 12:42-0400 Inhaled oxygen flow rate 8 L/min DO Peter Ahumada Work Phone: [facility] 01-29-2024 11:44-0400 Body height 182.88 cm DO Peter Ahumada Work Phone: [facility] 01-29-2024 11:44-0400 Body mass index (BMI) [Ratio] 36.5 kg/m2 DO Peter Ahumada Work Phone: [facility] 01-29-2024 11:44-0400 Body weight 122.2 kg DO Peter Shens Work Phone: [facility] 12-31-2023 07:25-0400 Body height 2194.56 cm DO Peter Shens Work Phone: [facility] 12-31-2023 07:25-0400 Body mass index (BMI) [Ratio] 0.2 kg/m2 DO Peter Kuns Work Phone: [facility] 12-31-2023 07:25-0400 Body weight 122.46 kg DO Peter Kuns Work Phone: [facility] 12-31-2023 07:25-0400 Diastolic blood pressure 80 mm[Hg] DO Peter Kuns Work Phone: [facility] 12-31-2023 07:25-0400 Heart rate 65 /min DO Peter Kuns Work Phone: [facility] 12-31-2023 07:25-0400 Respiratory rate 16 /min DO Peter Kuns Work Phone: [facility] 12-31-2023 07:25-0400 SaO2% (BldA) [Mass fraction] 97 % DO Peter Kuns Work Phone: [facility] 12-31-2023 07:25-0400 Systolic blood pressure 118 mm[Hg] DO Peter Kuns Work Phone: [facility] 12-27-2023 14:20-0400 Body height 182.88 cm DO Peter Kuns Work Phone: [facility] 12-27-2023 14:20-0400 Body mass index (BMI) [Ratio] 37.3 kg/m2 DO Peter Kuns Work Phone: [facility] 12-27-2023 14:20-0400 Body weight 124.73 kg DO Peter Kuns Work Phone: [facility] 12-27-2023 14:20-0400 Diastolic blood pressure 70 mm[Hg] DO Peter Kuns Work Phone: [facility] 12-27-2023 14:20-0400 Heart rate 86 /min DO Peter Kuns Work Phone: [facility] 12-27-2023 14:20-0400 Respiratory rate 16 /min DO Peter Kuns Work Phone: [facility] 12-27-2023 14:20-0400 SaO2% (BldA) [Mass fraction] 96 % DO Peter Kuns Work Phone: [facility] 12-27-2023 14:20-0400 Systolic blood pressure 116 mm[Hg] DO Peter Kuns Work Phone: [facility] 12-17-2023 07:31-0400 Body height 182.88 cm DO Peter Kuns Work Phone: [facility] 12-17-2023 07:31-0400 Body temperature 97.7 [degF] DO Peter Acs Work Phone: [facility] 12-17-2023 07:31-0400 Body weight 123.9 kg DO Peter Acs Work Phone: [facility] 12-17-2023 07:31-0400 Diastolic blood pressure 90 mm[Hg] DO Peter Acs Work Phone: [facility] 12-17-2023 07:31-0400 Heart rate 88 /min DO Peter Kuns Work Phone: [facility] 12-17-2023 07:31-0400 Respiratory rate 20 /min DO Peter Kuns Work Phone: [facility] 12-17-2023 07:31-0400 SaO2% (BldA) [Mass fraction] 97 % DO Peter Kuns Work Phone: [facility] 12-17-2023 07:31-0400 Systolic blood pressure 143 mm[Hg] DO Peter Kuns Work Phone: [facility] 06-08-2023 10:30-0500 Body height 182.88 cm Peterluiza Shens Other [employer] Other 06-08-2023 10:30-0500 Body mass index (BMI) [Ratio] 34.91 kg/m2 Peter Ahumada Other [facility] Other 06-08-2023 10:30-0500 Body weight 116.76 kg Peter Ahumada Other [facility] Other 06-08-2023 10:30-0500 Diastolic blood pressure 82 mm[Hg] Peter Ahumada Other [facility] Other 06-08-2023 10:30-0500 Respiratory rate 16 /min Peter Ahumada Other [facility] Other 06-08-2023 10:30-0500 SaO2% (BldA) [Mass fraction] 98 % Peter Ahumada Other [facility] Other 06-08-2023 10:30-0500 Systolic blood pressure 126 mm[Hg] Peter Ahumada Other [facility] Other 05-24-2023 15:00-0400 Body height 182.88 cm Peter Ahumada Other [facility] Other 05-24-2023 15:00-0400 Body mass index (BMI) [Ratio] 35.12 kg/m2 Peter Ahumada Other [facility] Other 05-24-2023 15:00-0400 Body weight 117.48 kg Peter Ahumada Other [facility] Other 05-24-2023 15:00-0400 Diastolic blood pressure 86 mm[Hg] Peter Ahumada Other [facility] Other 05-24-2023 15:00-0400 Respiratory rate 16 /min Peter Ahumada Other [facility] Other 05-24-2023 15:00-0400 SaO2% (BldA) [Mass fraction] 95 % Peter Ahumada Other [facility] Other 05-24-2023 15:00-0400 Systolic blood pressure 130 mm[Hg] Peter Ahumada Other [facility] Other 03-21-2023 08:30-0400 Body height 182.88 cm Peter Ahumada Other [facility] Other 03-21-2023 08:30-0400 Body mass index (BMI) [Ratio] 34.39 kg/m2 Peter Ahumada Other [facility] Other 03-21-2023 08:30-0400 Body weight 115.03 kg Peter Ahumada Other [facility] Other 03-21-2023 08:30-0400 Diastolic blood pressure 70 mm[Hg] Peter Ahumada Other [facility] Other 03-21-2023 08:30-0400 Respiratory rate 16 /min Peter Ahumada Other [facility] Other 03-21-2023 08:30-0400 SaO2% (BldA) [Mass fraction] 95 % Peter Ahumada Other [facility] Other 03-21-2023 08:30-0400 Systolic blood pressure 124 mm[Hg] Peter Ahumada Other [employer] [facility] Other 11-01-2022 13:49-0400 Diastolic blood pressure 90 mm[Hg] DO Peter Shens Work Phone: [facility] 11-01-2022 13:49-0400 Systolic blood pressure 153 mm[Hg] DO Peter Ahumada Work Phone: [facility] 11-01-2022 13:02-0400 Body temperature 97.6 [degF] DO Peter Ahumada Work Phone: [facility] 11-01-2022 13:02-0400 Heart rate 72 /min DO Peter Shens Work Phone: [facility] 11-01-2022 13:02-0400 Respiratory rate 18 /min DO Peter Ahumada Work Phone: [facility] 11-01-2022 13:02-0400 SaO2% (BldA) [Mass fraction] 96 % DO Peter Ahumada Work Phone: [facility] 11-01-2022 08:58-0400 Body height 182.88 cm DO Peter Ahumada Work Phone: [facility] 11-01-2022 08:58-0400 Body weight 117.93 kg DO Peter Ahumada Work Phone: [facility] 05-25-2022 17:00-0400 Body height 182.88 cm Peter Ahumada Other [employer] [facility] Other 05-25-2022 17:00-0400 Body mass index (BMI) [Ratio] 33.63 kg/m2 Peter Ahumada Other [employer] [facility] Other 05-25-2022 17:00-0400 Body weight 112.49 kg Peter Ahumada Other [facility] Other 05-25-2022 17:00-0400 Diastolic blood pressure 74 mm[Hg] Peter Ahumada Other [facility] Other 05-25-2022 17:00-0400 Respiratory rate 16 /min Peter Ahumada Other [facility] Other 05-25-2022 17:00-0400 SaO2% (BldA) [Mass fraction] Peter Ahumada Other [facility] Other 05-25-2022 17:00-0400 Systolic blood pressure 118 mm[Hg] Peter Ahumada Other [facility] Other 04-24-2022 09:15-0400 Body height 182.88 cm Peter Ahumada Other [facility] Other 04-24-2022 09:15-0400 Body mass index (BMI) [Ratio] 33.5 kg/m2 Peter Ahumada Other [facility] Other 04-24-2022 09:15-0400 Body weight 112.04 kg Peter Ahumada Other [facility] Other 04-24-2022 09:15-0400 Diastolic blood pressure 78 mm[Hg] Peter Ahumada Other [facility] Other 04-24-2022 09:15-0400 Respiratory rate 18 /min Peter Ahumada Other [facility] Other 04-24-2022 09:15-0400 SaO2% (BldA) [Mass fraction] 96 % Peter Ahumada Other [facility] Other 04-24-2022 09:15-0400 Systolic blood pressure 124 mm[Hg] Peter Ahumada Other [facility] Other 11-02-2021 12:00-0400 Body height 182.88 cm Peter Ahumada Other [facility] Other 11-02-2021 12:00-0400 Body mass index (BMI) [Ratio] 34.44 kg/m2 Peter Ahumada Other [facility] Other 11-02-2021 12:00-0400 Body weight 115.21 kg Peter Ahumada Other [facility] Other 11-02-2021 12:00-0400 Diastolic blood pressure 66 mm[Hg] Peter Ahumada Other [facility] Other 11-02-2021 12:00-0400 Respiratory rate 16 /min Peter Ahumada Other [facility] Other 11-02-2021 12:00-0400 SaO2% (BldA) [Mass fraction] 97 % Peter Ahumada Other [facility] Other 11-02-2021 12:00-0400 Systolic blood pressure 124 mm[Hg] Peter Ahumada Other [facility] Other 10-17-2021 09:15-0400 Body height 182.88 cm Peter Ahumada Other [facility] Other 10-17-2021 09:15-0400 Body mass index (BMI) [Ratio] 34.2 kg/m2 Peter Ahumada Other [facility] Other 10-17-2021 09:15-0400 Body weight 114.4 kg Peter Ahumada Other [facility] Other 10-17-2021 09:15-0400 Diastolic blood pressure 76 mm[Hg] Peter Ahumada Other [facility] Other 10-17-2021 09:15-0400 Respiratory rate 18 /min Peter Ahumada Other [facility] Other 10-17-2021 09:15-0400 SaO2% (BldA) [Mass fraction] 98 % Peter Ahumada Other [facility] Other 10-17-2021 09:15-0400 Systolic blood pressure 118 mm[Hg] Peter Ahumada Other [facility] Other 10-13-2021 13:28-0400 Body height 182.9 cm Kate Daniel MD Work Phone: [facility] 10-13-2021 13:28-0400 Body temperature 97.7 [degF] Kate Daniel MD Work Phone: [facility] 10-13-2021 13:28-0400 Body weight 115.21 kg Kate Daniel MD Work Phone: [facility] 10-13-2021 13:28-0400 Diastolic blood pressure 55 mm[Hg] Kate Daniel MD Work Phone: [facility] 10-13-2021 13:28-0400 Heart rate 68 /min Kate Daniel MD Work Phone: [facility] 10-13-2021 13:28-0400 SaO2% (BldA) [Mass fraction] 97 % Kate Daniel MD Work Phone: [facility] 10-13-2021 13:28-0400 Systolic blood pressure 112 mm[Hg] Kate Daniel MD Work Phone: [facility] 04-20-2021 08:45-0400 Body height 182.88 cm Peter Ahumada Other [facility] Other 04-20-2021 08:45-0400 Body mass index (BMI) [Ratio] 31.87 kg/m2 Peter Ahumada Other [facility] Other 04-20-2021 08:45-0400 Body weight 106.6 kg Peter Ahumada Other [facility] Other 04-20-2021 08:45-0400 Diastolic blood pressure 74 mm[Hg] Peter Ahumada Other [facility] Other 04-20-2021 08:45-0400 Respiratory rate 18 /min Peter Ahumada Other [facility] Other 04-20-2021 08:45-0400 SaO2% (BldA) [Mass fraction] 96 % Peter Ahumada Other [facility] Other 04-20-2021 08:45-0400 Systolic blood pressure 110 mm[Hg] Peter Ahumada Other [facility] Other Encounters Encounter Date Encounter Type Care Provider Facility Start: 10-13-2024 End: 10-13-2024 Postop follow up visit related to original px Alber Haines DO Work Phone: [facility] Comment on above: Sebaceous cyst (Prim arvin Dx) Start: 10-13-2024 End: 10-13-2024 ambulatory ALBER H ITZKOWITZ Not Available Start: 09-29-2024 End: 09-29-2024 ambulatory Peter Ahumada DO Work Phone: [facility] Work Phone: Start: 09-29-2024 End: 09-29-2024 Departed Referred Peter Ahumada DO Work Phone: [facility] [place] Work Phone: Start: 09-22-2024 End: 09-22-2024 ambulatory Christos Manrique MD Facility:[facility] [place] Start: 09-10-2024 End: 09-10-2024 Office outpatient visit 15 minutes Alber H Itzkowitz DO Work Phone: [facility] Comment on above: Sebaceous cyst (Prim arvin Dx) Start: 09-10-2024 End: 09-10-2024 ambulatory ALBER H ITZKOWITZ Not Available Start: 09-09-2024 End: 09-09-2024 ambulatory Peter Ahumada DO Work Phone: [facility] Work Phone: Start: 09-09-2024 End: 09-09-2024 Patient encounter procedure Peter Ahumada DO Work Phone: [facility] [place] Work Phone: Start: 09-01-2024 End: 09-01-2024 ambulatory Christos Manrique MD Facility:[facility] [place] Start: 07-17-2024 End: 07-17-2024 ambulatory Peter Ahumada Facility:[facility] Start: 07-17-2024 End: 07-17-2024 Discharged Recurring Peter Ahumada DO Work Phone: [facility] [place] Work Phone: Start: 06-23-2024 End: 06-23-2024 ambulatory Christos Manrique MD Facility:[facility] [place] Start: 06-10-2024 End: 06-10-2024 ambulatory Peter Blake DO Work Phone: [facility] Work Phone: Start: 06-10-2024 End: 06-10-2024 Patient encounter procedure Peter Ahumada DO Work Phone: [facility] [place] Work Phone: Start: 06-04-2024 End: 06-04-2024 Patient encounter procedure Peterluiza Shenshira DO Work Phone: [facility] [place] Work Phone: Start: 06-04-2024 End: 06-04-2024 ambulatory Peter Blake DO Work Phone: [facility] Work Phone: Start: 05-22-2024 End: 05-22-2024 Patient encounter procedure Rahul Castillo DO Work Phone: [facility] Comment on above: Lumbosacral radiculo yaritza (Primary Dx) Start: 05-22-2024 End: 05-22-2024 ambulatory RAHUL CASTILLO Not Available Start: 05-22-2024 End: 05-22-2024 Bamboo flowsheet Rahul Castillo DO Work Phone: [facility] Start: 05-22-2024 End: 05-22-2024 Bamboo flowsheet Rahul Castillo DO Work Phone: [facility] Start: 05-19-2024 End: 05-19-2024 ambulatory DO Peter Ahumada Work Phone: [facility] Work Phone: Start: 05-19-2024 End: 05-19-2024 Discharged Recurring DO Peterluiza Shenshira Work Phone: [facility] [place] Work Phone: Start: 03-12-2024 End: 03-12-2024 Patient encounter procedure DO Peter Ahumada Work Phone: [facility] [place] Work Phone: Start: 03-12-2024 End: 03-12-2024 ambulatory DO Peter Ahumada Work Phone: [facility] Work Phone: Start: 03-06-2024 End: 03-06-2024 ambulatory DO Peter Ahumada Work Phone: [facility] Work Phone: Start: 03-06-2024 End: 03-06-2024 Patient encounter procedure DO Peter Ahumada Work Phone: [facility] [place] Work Phone: Start: 03-05-2024 End: 03-05-2024 Patient encounter procedure DO Peter Ahumada Work Phone: [facility] [place] Work Phone: Start: 03-05-2024 End: 03-05-2024 ambulatory DO Peter Ahumada Work Phone: [facility] Work Phone: Start: 02-28-2024 End: 02-28-2024 ambulatory ALBER HAINES Not Available Start: 02-13-2024 End: 02-13-2024 ambulatory DO Peter Ahumada Work Phone: [facility] Work Phone: Start: 02-13-2024 End: 02-13-2024 Patient encounter procedure DO Peter Ahumada Work Phone: [facility] Work Phone: Start: 02-13-2024 End: 02-13-2024 Patient encounter procedure DO Peter Ahumada Work Phone: [facility] Start: 02-13-2024 End: 02-13-2024 ambulatory DO Peter Ahumada Work Phone: [facility] Work Phone: Start: 02-07-2024 End: 02-07-2024 ambulatory ALBER HAINES Not Available Start: 01-29-2024 End: 01-29-2024 Admission to same day surgery center DO Peter Ahumada Work Phone: [facility]gery [facility] [place] Start: 01-29-2024 End: 01-29-2024 ambulatory DO Peter Ahumada Work Phone: [facility] Work Phone: Start: 01-15-2024 End: 01-15-2024 Departed Referred DO Peter Ahumada Work Phone: [facility]Pre-Surgical Testing Work Phone: Start: 01-15-2024 End: 01-15-2024 Patient encounter procedure DO Peter Ahumada Work Phone: [facility]urgical [facility] Work Phone: Start: 01-15-2024 End: 01-15-2024 ambulatory DO Peter Ahumada Work Phone: [facility] Work Phone: Start: 01-14-2024 End: 01-14-2024 ambulatory DO Peter Ahumada Work Phone: [facility] Work Phone: Start: 01-14-2024 End: 01-14-2024 Patient encounter procedure DO Peter Ahumada Work Phone: [facility] Work Phone: Start: 01-14-2024 End: 01-14-2024 Patient encounter procedure DO Peter Shens Work Phone: [facility] Start: 01-14-2024 End: 01-14-2024 ambulatory DO Peter Ahumada Work Phone: [facility] Work Phone: Start: 01-03-2024 End: 01-03-2024 ambulatory ALBER HAINES Not Available Start: 12-31-2023 End: 12-31-2023 ambulatory DO Peter Ahumada Work Phone: [facility] Work Phone: Start: 12-31-2023 End: 12-31-2023 Patient encounter procedure DO Peter Ahumada Work Phone: [facility] Work Phone: Start: 12-31-2023 End: 12-31-2023 Patient encounter procedure DO Peter Ahumada Work Phone: [facility] [place] Work Phone: Start: 12-31-2023 End: 12-31-2023 ambulatory DO Peter Ahumada Work Phone: [facility] Work Phone: Start: 12-31-2023 End: 12-31-2023 ambulatory DO Peter Acshira Work Phone: [facility] Work Phone: Start: 12-31-2023 End: 12-31-2023 Patient encounter procedure DO Peter Shens Work Phone: [facility] [place] Work Phone: Start: 12-28-2023 End: 12-28-2023 Patient encounter procedure DO Peter Shens Work Phone: [facility] [place] Work Phone: Start: 12-28-2023 End: 12-28-2023 ambulatory DO Peter Shens Work Phone: [facility] Work Phone: Start: 12-27-2023 End: 12-27-2023 ambulatory DO Peter Ahumada Work Phone: [facility] Work Phone: Start: 12-27-2023 End: 12-27-2023 Patient encounter procedure DO Peter Ahumada Work Phone: [facility] Work Phone: Start: 12-19-2023 Non-patient / Non-visit DO Terry luiza Shenshira Work Phone: [facility] Work Phone: Start: 12-17-2023 End: 12-17-2023 Emergency department patient visit DO Peter Ahumada Work Phone: [facility]-Emergency Room Work Phone: Start: 12-12-2023 End: 12-12-2023 ambulatory ALBER Judd YANCY Not Available Start: 12-03-2023 End: 12-03-2023 Patient encounter procedure DO Peter Ahumada Work Phone: [facility] Work Phone: Start: 12-03-2023 End: 12-03-2023 ambulatory DO Peter Ahumada Work Phone: [facility] Work Phone: Start: 08-27-2023 End: 08-27-2023 ambulatory Peter Ahumada Other [facility] Other Start: 08-27-2023 Telephone encounter Peter Ahumada [facility] Start: 08-22-2023 End: 08-22-2023 ambulatory DO Peter Blake Work Phone: [facility] Work Phone: Start: 08-22-2023 End: 08-22-2023 Patient encounter procedure DO Peter Ahumada Work Phone: [facility] [place] Work Phone: Start: 08-20-2023 End: 08-20-2023 ambulatory Peter Ahumada Other [facility] Other Start: 08-20-2023 Telephone encounter Peter Ahumada [facility] [place] Start: 08-13-2023 Telephone encounter Peter Ahumada [facility] [place] Start: 08-13-2023 End: 08-13-2023 ambulatory DO Peter Ahumada Work Phone: [facility] Other Start: 08-13-2023 End: 08-13-2023 Patient encounter procedure DO Peter Ahumada Work Phone: [facility] Work Phone: Start: 08-06-2023 End: 08-06-2023 ambulatory Peter Shenshira Other [facility] Other Start: 08-06-2023 Telephone encounter Peterluiza Shenshira [facility] [place] Start: 06-11-2023 End: 06-11-2023 ambulatory Peter Ahumada Other [facility] Other Start: 06-11-2023 Telephone encounter Peter Ahumada [facility] [place] Start: 06-08-2023 Office outpatient vi sit 25 minutes Peter Ahumada [facility] [place] Start: 06-08-2023 End: 06-08-2023 ambulatory DO Peter Ahumada Work Phone: [facility] Work Phone: Start: 06-08-2023 End: 06-08-2023 Patient encounter procedure DO Peter Ahumada Work Phone: [facility] Work Phone: Start: 06-08-2023 End: 06-08-2023 Patient encounter procedure DO Peter Ahumada Work Phone: [facility] [place] Work Phone: Start: 05-25-2023 End: 05-25-2023 Patient encounter procedure DO Peter Ahumada Work Phone: [facility] Work Phone: Start: 05-24-2023 End: 05-24-2023 ambulatory Peter Ahumada Other [facility] Other Start: 05-24-2023 Office outpatient vi sit 25 minutes Peter Ahumada [facility] Start: 05-24-2023 End: 05-24-2023 Patient encounter procedure DO Peter Ahumada Work Phone: [facility] [place] Work Phone: Start: 03-21-2023 End: 03-21-2023 ambulatory Peter Ahumada Other [facility] Other Start: 03-21-2023 Office outpatient vi sit 15 minutes Peter Ahumada [facility] Start: 03-19-2023 End: 03-19-2023 ambulatory DO Peter Ahumada Work Phone: [facility] Work Phone: Start: 03-19-2023 End: 03-19-2023 Patient encounter procedure DO Peter Ahumada Work Phone: [facility] [place] Work Phone: Start: 01-15-2023 End: 01-15-2023 ambulatory DO Peter Ahumada Work Phone: [facility] Work Phone: Start: 01-15-2023 End: 01-15-2023 Patient encounter procedure DO Peter Blake Work Phone: [facility] Start: 01-12-2023 End: 01-12-2023 ambulatory Peter Ahumada Other [facility] Other Start: 01-12-2023 Telephone encounter Peter Ahumada [facility] Start: 11-23-2022 End: 11-23-2022 Patient encounter procedure DO Peter Ahumada Work Phone: [facility] [place] Work Phone: Start: 11-01-2022 End: 11-01-2022 Emergency department patient visit DO Peterluiza Shenshira Work Phone: [facility]Emergency [facility] Work Phone: Start: 10-31-2022 End: 10-31-2022 ambulatory DO Peterluiza Ahumada Work Phone: [facility] Work Phone: Start: 10-31-2022 End: 10-31-2022 Patient encounter procedure DO Peter Ahumada Work Phone: [facility] [place] Work Phone: Start: 05-25-2022 End: 05-25-2022 Departed Referred DO Peter Blake Work Phone: [facility] [place] Start: 05-25-2022 End: 05-25-2022 ambulatory DO Peter Ahumada Work Phone: [facility] Other Start: 05-25-2022 Office outpatient vi sit 15 minutes Peter Ahumada [facility] Start: 04-24-2022 End: 04-24-2022 ambulatory Peter Ahumada Other [facility] Other Start: 04-24-2022 Office outpatient vi sit 25 minutes Peter Ahumada [facility] [place] Start: 04-19-2022 End: 04-19-2022 ambulatory DO Peter Ahumada Work Phone: [facility] Work Phone: Start: 04-19-2022 End: 04-19-2022 Patient encounter procedure DO Peter Ahumada Work Phone: [facility] [place] Start: 11-15-2021 End: 11-15-2021 ambulatory Peter Ahumada Other [facility] Other Start: 11-15-2021 Telephone encounter Peter Ahumada [facility] Start: 11-02-2021 End: 11-02-2021 ambulatory Peter Ahumada Other [facility] Other Start: 11-02-2021 Office outpatient vi sit 15 minutes Peter Ahumada [facility] Start: 10-17-2021 End: 10-17-2021 ambulatory Peter Ahumada Other [facility] Other Start: 10-17-2021 Office outpatient vi sit 25 minutes Peter Ahumada [facility] Start: 10-13-2021 End: 10-13-2021 Patient encounter procedure Ktae Daniel MD Work Phone: General Surgery Comment on above: Liver pain (Primary Dx) Start: 04-20-2021 Office outpatient vi sit 25 minutes Peter Ahumada [facility] Start: 02-22-2021 End: 02-22-[address] PETER AHUMADA Facility: Start: 11-30-2020 End: 11-30-2020 Subsequent hospital visit by physician Carlos Echols Work Phone: Radiology Comment on above: Closed nondisplaced fracture of proximal phalanx of left little finger, initial encounter [S62.647A] Start: 11-18-2020 End: 11-18-2020 Subsequent hospital visit by physician Carlos Rodriguezeduardo Echols Work Phone: Radiology Comment on above: Closed nondisplaced fracture of proximal phalanx of left little finger, initial encounter [S62.647U] Procedures Date Procedure Procedure Detail Performing Clinician [...] Start: 12-31-2023 Ultrasonography of abdomen DO Peter hSens Work Phone: Start: 12-28-2023 Plain X-ray of right elbow DO Peter Shens Work Phone: Start: 12-28-2023 X-ray of right knee DO Peterluiza Shens Work Phone: Start: 12-17-2023 Plain X-ray of right clavicle DO Peter Shens Work Phone: Start: 12-17-2023 Plain X-ray of right forearm DO Peterluiza Shens Work Phone: Start: 12-17-2023 Plain X-ray of right shoulder DO Peter Shens Work Phone: Start: 12-17-2023 X-ray of [...] Phone: Start: 11-23-2022 Pelvic echography DO Zaki Ahmuada Work Phone: Start: 11-23-2022 Transvaginal echography DO [...] or Tdap) [facility] Start: 05-22-2024 End: 05-22-2024 Patient encounter procedure 05/22/2024 2:30 PM EDT Procedure Visit [facility] [address] [place] [address] Rahul Castillo, DO [address] [place] [id number] Arrived [facility] Comment on above: Arrived Start: 03-23-2024 Covid-19 Vaccine ( season) Covid-19 Vaccine ( season) [facility] Start: 03-23-2024 Influenza vaccination Influenz a Vaccine (#1) [facility] Start: 03-05-2024 [facility] Start: 02-13-2024 Plain X-ray of right elbow XR elbow RT 2V [facility] Start: 02-13-2024 XR Elbow - right 2 Views [facility] Start: 01-29-2024 [facility] Start: 01-29-2024 [facility] Start: 01-14-2024 Plain X-ray of right elbow XR elbow RT 2V [facility] Start: 01-14-2024 XR Elbow - right 2 Views [facility] Start: 12-31-2023 Patient referral [facility] Work Phone: Start: 2022 Screening for malign ant neoplasm of breast Mammogram Screening [facility] Start: 03-23-2021 Influenza vaccination INFLUENZA (#1) [facility] Start: 2012 HPV TESTING HPV TESTING [facility] Start: 2003 PAP TESTING PAP TESTING [facility] Start: 2003 Screening for malign ant neoplasm of cervix Cervical Cancer Screening [facility] Start: 2001 Hepatitis B Vaccine (1 of 3 - 19+ 3-dose series) Hepatitis B Vaccine (1 of 3 - 19+ 3-dose series) [facility] Start: 2001 Urine microalbumin profile DTA P,TDAP,TD (1 - Tdap) [facility] Start: 2000 Anxiety Screening Anxiety Screening [facility] Start: 2000 Depression Screening Depression Scre ening [facility] Start: 2000 HEPATITIS C SCREENING HEPATITIS C [facility] Start: 2000 Hepatitis C screening Hepatitis C [facility] Start: 2000 HIV SCREENING HIV SCREENING [facility] Start: 2000 HIV screening HIV Screening [facility] Start: 1994 Adult depression scr eening assessment DEPRESSION SCREENING [facility] Start: 1987 COVID-19 VACCINE (1) COVID-19 VACCIN E (1) [facility] Comprehensive metabo lic 1999 panel - Serum or Plasma [facility] Comprehensive metabo lic 1999 panel - Serum or Plasma [facility] Glucose measurement estimated from glycated hemoglobin [facility] Patient Education [facility] Work Phone: Patient referral [facility] Work Phone: RF Gastrointestinal tract upper Single view W air contrast PO [facility] US Gallbladder [facility] XR Elbow - right GE 3 Views [facility] Immunizations Immunization Date Immunization Notes Care Provider Fa cility 12-17-2023 tetanus toxoid, reduced diphtheria toxoid, and acellular pertussis vaccine, adsorbed DO Peter Ahumada Work Phone: [facility] 06-07-2022 influenza, injectable, quadrivalent, preservative free Peter Ahumada Other [facility] 04-09-2020 influenza, seasonal, injectable Peter Acs Other [employer] [facility] Other 03-10-2019 influenza, seasonal, injectable Patient Objection Peter Ahumada Other [facility] Other 02-18-2018 tetanus toxoid, reduced diphtheria toxoid, and acellular pertussis vaccine, adsorbed Peter Blake Other [facility] NEGATED: Highlighted row has not occurred!06-07-2022 influenza, seasonal, injectable Patient Objection Peter Ahumada Other [employer] [facility] Other NEGATED: Highlighted row has not occurred!04-09-2020 influenza, seasonal, injectable Peter Kuns Other [employer] [facility] Other NEGATED: Highlighted row has not occurred!03-10-2019 influenza, seasonal, injectable Patient Objection Peter Shenshira Other [employer] [facility] Other Payers Date Payer Category Payer Self-pay [id number] 2022 Unknown 2018 [facility] [employer] [id number] 2018-Present [phone] [address] [place] [address] Medicaid [id number] 2018 Medicaid [facility] [employer]ICA[employer] [id number] 2018-2022 [address] [place], [place] [id number] Medicaid [id number] 2018 [facility] Insurance [facility] MEDICAID [id number] 2018 Medicaid [id number] 1982 Unknown [id number] 2..840.1.370675.3.579.2 .593 1982 Unknown [id number] .196 1982 Unknown [id number] 2840.1.012245.3.579.2 .196 1982 Unknown [id number] 2.16840.1.171465.3.579.2 .196 1982 Unknown [id number] 2.16.840.1.020356.3.579.2 .1258 1982 Unknown [id number] 2.16840.1.158177.3.579.2 .1258 1982 Unknown [id number] 2.840.1.865333.3.579.2 .1258 1982 Unknown [id number] 2.840.1.924528.3.579.2 .1258 1982 Unknown [id number] 2.840.1.070028.3.579.2 .1258 1982 Unknown [id number] 2.840.1.248033.3.579.2 .1258 1982 Unknown [id number] 2.840.1.865042.3.579.2 .9 1959 Unknown [id number] Unknown [id number] Unknown [id number] 2.840.1.024428.3.579.2 .531 Unknown [id number] 2.840.1.430507.3.579.2 .531 Unknown [id number] 2.840.1.207815.3.579.2 .531 Unknown [id number] 2.840.1.052927.3.579.2 .531 Unknown [id number] 2.16840.1.679175.3.579.2 .531 Unknown [id number] 2.16840.1.582880.3.579.2 .531 Unknown [id number] 2.840.1.846484.3.579.2 .531 Unknown [id number] 2.16.840.1.752809.3.579.2 .531 Unknown [id number] 2.16.840.1.248280.3.579.2 .531 Unknown [id number] 2.16.840.1.321427.3.579.2 .531 Unknown [id number] 2.16.840.1.521824.3.579.2 .531 Unknown [id number] 2.16.840.1.265950.3.579.2 .531 Unknown [id number] 2.16.840.1.231731.3.579.2 .531 Unknown [id number] 2.16.840.1.356836.3.579.2 .531 Social History Date Type Detail Facility Start: 03-03-2021 End: 01-03-2024 Tobacco smoking status MAIS Ex-smoker [facility] Work Phone: End: 06-22-2006 History of tobacco use Current smoker [facility] Work Phone: Start: 03-03-2021 End: 01-03-2024 Tobacco use and exposure Smokeless tobacco non-user [facility] Work Phone: Start: 10-13-2021 Alcohol intake Current drinker of alcohol (finding) [facility] Start: 03-03-2021 History SDOH Alcohol Comment occ [facility] Start: 03-03-2021 Tobacco Comment Smoked 1 pack a week, quit in 2005, can't remember start date [facility] Start: 1982 Sex Assigned At Not on file [facility] [facility] Start: 06-30-2020 End: 09-10-2024 Sex Assigned At [facility] Start: 11-25-2015 End: 02-15-2021 Tobacco smoking status MAIS Never smoked tobacco (finding) [facility] Start: 1980 Sex Assigned At Female [facility] Start: 11-25-2015 Alcoholic beverage intake Not Asked [facility] Start: 06-30-2020 End: 09-10-2024 History of Social function [facility] National Score (1-10 0), lower number is lower risk Not on file [facility] Start: 10-19-2020 End: 11-30-2020 Exposure to SARS-CoV-2 (event) Not sure [facility] End: 06-22-2006 History of tobacco use Cigarette Smoker [facility] Start: 02-04-2024 End: 09-30-2024 Alcoholic beverage intake Ex-drinker (finding) [facility] Start: 01-25-2023 Tobacco Comment Quit smoking 10 years ago [facility] Start: 01-25-2023 Alcohol Comment caffeine 1-2 cups/day [facility] Start: 01-18-2023 Gender identity Identifies as female gender (finding) [facility] Start: 01-18-2023 Sexual orientation Heterosexual (finding) [facility] Start: 06-05-2024 End: 09-30-2024 Sex Female (finding) [facility] Medical Equipment Procedure Code Equipment Code [...] Desired Activity /State Clinical Notes 11-04-2020 to 10-13-2024 Alber Haines, DO - 10/13/2024 1:15 PM EDTFfelicia Haines, DO - 09/10/2024 3:30 PM EST Note Date & Type Note Facility 10-13-2024 History of Presen t illness Narrative Images from the original note were not included. Darling Khanna is a 44 y.o. female presents for 1st pow Exc. Rt. chest cyst HPI: HPI Darling presents for her first post-op from excision of chest wall mass, she is doing well OBJECTIVE: Physical Exam Right upper chest wall incision is healing well, no ecchymosis or bruising. ASSESSMENT AND PLAN: Assessment/Plan Problem List Items Addressed This Visit Sebaceous cyst - Primary The path was consistent with a pseudocyst with previously ruptured chronic sebaceous cyst. I'll see her PRN documented in this encounter [facility] 09-10-2024 History of Presen t illness Narrative [...] 90 mcg/act inhaler Every 4 hours HYDROcodone-acetaminophen ([place]) 5-325 MG tablet TAKE 1 TABLET BY [...] to schedule it. documented in this encounter [facility] 09-09-2024 Evaluation note Authored September 09, 2024 3:43pm The above note written by SIOMARA Bolden acting as human recorder, note dictated by Dr. Peter Ahumada. [facility] Work Phone: [phone] 900-778110-31-2024 History of Present illness Narrative* CESAR Rich - 05/22/2024 2:30 PM EDT Images from the original note were not included. Reason for Appointment: EMG Patient: Darling Khanna : 1980 EMG Computer: [employer] Referring Physician: Dr. Robert Martinez EMG: BLE telephone worker: Cayetano Moreno RT(R) Office Location: [place] Reason for EMG: c/o low back pain into left hip, pain in right knee, pain in bilateral heels. No hxof DM. Not on blood thinners. Comments: Procedure was explained to the patient who expressed understanding. Patient appeared to have tolerated the test well despite some discomfort due to the nature of the test. documented in this [place] [address]-15-2024 Evaluation note* Author Hyacinth Hutton [facility] Authored March 06, 2024 2: 47pm The above note written by Thuan STRINGER acting as human recorder, note dictated by Dr.Bryan Ahumada. [facility] Work Phone: [phone] 146-342901-22-2024 Evaluation note* Encounter Date Diagnosis Assessment Notes Treatment Notes Treatment Clinical Notes Jul, Abnormal mammogram of left breast (ICD-10 - R92.8) [facility] 01-15-2024 Evaluation note* Encounter Date Diagnosis Assessment Notes Treatment Notes Treatment Clinical Notes Jul, Abnormal mammogram (ICD-10 - R92.8) [facility] 11-17-2023 Evaluation note* Encounter Date Diagnosis [...] modification. May, Acute bronchitis (ICD-10 - J20.9) [facility] 11-02-2023 Evaluation note* Encounter Date Diagnosis [...] exercise regimen; we will continue to monitor. [facility] 08-30-2023 Evaluation note* Encounter Date Diagnosis [...] been ordered to use for allergic reaction. [facility] 06-23-2023 Evaluation note* Encounter Date Diagnosis Assessment Notes Treatment Notes Treatment Clinical Notes Dec, Mass of upper outer quadrant of left breast (ICD-10 - N63.21) [facility] 11-03-2022 Evaluation note* Encounter Date Diagnosis [...] sent to the lab to determine pathology. [facility] 10-03-2022 Evaluation note* Encounter Date Diagnosis [...] excisional biopsy. Apr, Hyperlipidemia (ICD-10 - E78.5) [facility] 04-13-2022 Evaluation note* Encounter Date Diagnosis Assessment Notes Treatment Notes Treatment Clinical Notes Oct, Neoplasm of uncertain behavior of skin (ICD-10 - D48.5) The patient does have three lesions located on her left lateral calf, right upper thigh, and left vertex region of the scalp that are red, inflammed, and are abnormally shaped that were removed via shave and sent for pathology. [facility] 03-28-2022 Evaluation note* Encounter Date Diagnosis [...] eye. These will be removed with hyfrecator. [facility] 03-24-2022 NoteHNO ID: [id number] Author: Kate Daniel MD Service: ? Author Type: Physician Type: Progress Notes Filed: 10/17/2021 1:50 PM Note Text: Assessment ESTABLISHED PATIENT Darling Khanna is a 40 year old female with a right posterior liver subcapsular fluid collection ? 03/03/2021: Patient presented to [facility] ER on 02/08/2021 for 2 days for acute ride sided abdominal/flank pain, right shoulder discomfort and nausea. She was diagnosed with Klebsiella pneumoniae UTI and was discharged with oral keflex and zofran. Patient represented to ER on 02/09/2021 for the continued complaints of pain. ? Referral From:?PCP- Peter Ahumada, DO Reason:?right abdominal pain pain; liver?fluid collection? ? Received Records From:? 02/08/2021 ER Report [facility] 02/09/2021 ER Report [facility] 02/15/2021 PCP Office note ? Visited ER 4 times in the past month?with right sided?05/01?abdominal pain that used to radiating to the [...] gradually improving. US of ovaries yesterday at [facility]. Scheduled for upper GI at end of month. Gained?50 pounds since July?(was in [place] for 3 months, drank a lot); diagnosed [...] well. She did spend 3 months in [place] and did not have any issues, hospitalizations [...] which included preparing to see the patient, iwal-kh-pcid patient care and completing clinical documentation. Kate Daniel [facility]03-24-2022 Nurse Note* Jayne Aguila Ma - 10/13/2021 1:32 PM EDT What is the reason for your visit today? Follow up Who is your referring physician? Are you having poor oral intake? NO Have you had unintentional weight loss of 15 lbs/7 Kg in the last 3-6 months? NO Bowels: regular Wound: Temperature: No Drains: No [facility] [place] History of Present illness Narrative* Kate Daniel MD - 10/13/2021 1:30 PM EDT Assessment ESTABLISHED PATIENT Darling Khanna is a 40 year old female with a right posterior liver subcapsular fluid collection 03/03/2021: Patient presented to [facility] ER on 02/08/2021 for 2 days for [...] collection Received Records From: 02/08/2021 ER Report [facility] 02/09/2021 ER Report [facility] 02/15/2021 PCP Office note Visited ER [...] gradually improving. US of ovaries yesterday at [facility]. Scheduled for upper GI at end of month. Gained 50 pounds since July (was in [place] for 3 months, drank a lot); diagnosed [...] well. She did spend 3 months in [place] and did not have any issues, hospitalizations [...] which included preparing to see the patient, [id number] patient care and completing clinical documentation. Kate Daniel MD [facility] [place] Evaluation note* Encounter Date Diagnosis Assessment Notes [...] reflux disease) (ICD-10 - K21.9) Refill provided. 29 Mar, 2021 BMI 31.0-31.9,adult (ICD-10 - Z68.31) Patient presents today with a 9lb weight loss since starting a dieting plan called [employer]. Encouraged her to continue monitoring her diet as she voices a goal of getting under 200lbs. We will continue to monitor. [facility] 09-16-2021 NoteHNO ID: [id number] Author: Kate Daniel MD Service: ? Author Type: Physician Type: Progress Notes Filed: 04/11/2021 3:19 PM Note Text: Assessment ESTABLISHED PATIENT Darling Khanna is a 40 year old female with a right posterior liver subcapsular fluid collection 03/03/2021: Patient presented to [facility] ER on 02/08/2021 for 2 days for acute ride sided abdominal/flank pain, right shoulder discomfort and nausea. She was diagnosed with Klebsiella pneumoniae UTI and was discharged with oral keflex and zofran. Patient represented to ER on 02/09/2021 for the continued complaints of pain. ? Referral From:?PCP- Peter Ahumada, DO Reason:?right abdominal pain pain; liver?fluid collection? ? Received Records From:? 02/08/2021 ER Report [facility] 02/09/2021 ER Report [facility] 02/15/2021 PCP Office note ? Visited [...] gradually improving. US of ovaries yesterday at [facility]. Scheduled for upper GI at end of month. Gained 50 pounds since July (was in [place] for 3 months, drank a lot); diagnosed [...] which included preparing to see the patient, [id number]-jc-[id number] patient care and completing clinical documentation. Kate Daniel, [facility]09-01-2021 NoteHNO ID: [id number] Author: William De León MD Service: ? [...] findings to suggest etiology Pre-conference plan (from [employer]): - Observation and serial imaging Imaging Review: - January 2021 - CT Abd/Pelvis and MRI Final Consensus Recommendation(s): - No clear etiology of right posterior subcapsular fluid collection - Fluid consistency is not consistent with a hematoma - No underlying masses or intrinsic liver pathology Final recommendation(s) differ from pre-conference plan? (Y/N) - No William De León MD [facility]21 NoteHNO ID: [id number] Author: Kate Daniel MD Service: ? Author [...] 40 year old female Patient presented to [facility] ER on 02/08/2021 for 2 days for [...] ? Received Records From: 02/08/2021 ER Report [facility] 02/09/2021 ER Report [facility] 02/15/2021 PCP Office note Visited ER [...] gradually improving. US of ovaries yesterday at [facility]. Scheduled for upper GI at end of month. Gained 50 pounds since July (was in [place] for 3 months, drank a lot); diagnosed [...] was malignant. Seen by Dr. Haines on [facility], in [facility]; denies chemotherapy or radiation. Hernia repair [...] rhythm. Abdomen: Abdomen so (more content not included)...[facility] 12-28-2020 NoteHNO ID: [id number] Author: Tracey Hair Ma Service: ? Author Type: ? Type: Progress Notes Filed: 12/28/2020 4:25 PM Note Text: Dispensed XL/XXL Reaction brace for the Right knee. Dispensed by [employer]. Instructions were given on application/adjustments. She will f/u as scheduled/prn. Tracey Hair MA,[facility] 12-28-2020 NoteHNO ID: [id number] Author: Ishan Yusuf, Service: ? Author Type: [...] was performed today. CLINICAL IMPRESSION / ASSESSMENT: (D08.601D) Closed nondisplaced fracture of proximal phalanx of [...] PT if not improving Procedures Ishan Yusuf [facility]05-11-2021 NoteHNO ID: [id number] Author: Ishan Yusuf, DO Service: ? Author [...] results and radiologist's interpretation, available in the [facility] health record. Images were reviewed with the patient/family members in the office today. My personal interpretation of the performed imaging is healing proximal phalanx fracture CLINICAL IMPRESSION / ASSESSMENT: (E62.744A) Closed nondisplaced fracture of proximal phalanx of left little finger, initial encounter (primary encounter diagnosis) PLAN: Start weaning out of the splint at this time Can start OT at this time ROM as tolerated Follow-up in 3-4 weeks Procedures Ishan Yusuf [facility]05-11-2021 NoteHNO ID: [id number] Author: RT Suzanna(Esteban) Service: ? Author Type: Industrial Truck Mechanic Type: Progress Notes Filed: 11/30/2020 3:44 PM [...] BY: RT Suzanna(R) November 30, 2020 3:43 [facility]04-29-2021 NoteHNO ID: [id number] Author: JOÃO Dow) Service: ? Author Type: Industrial Truck Mechanic Type: Progress Notes Filed: 11/18/2020 3:47 PM [...] RT Victor M(R) November 18, 2020 3:45 [facility]04-29-2021 NoteHNO ID: [id number] Author: Ishan Yusuf, DO Service: ? Author [...] results and radiologist's interpretation, available in the [facility] health record. Images were reviewed with [...] of depression Follow-up accordingly Procedures Ishan Yusuf, [facility]04-15-2021 NoteHNO ID: [id number] Author: Bob Millan Service: ? Author Type: Physician Type: Progress Notes Filed: 11/04/2020 2:12 PM Note Text: [facility] Office Visit Documentation Note [facility] Sports Medicine Orthopaedic and Rheumatologic [place] REASON FOR VISIT / CHIEF COMPLAINT SERVICE [...] there an injury that started this? Yes, / PREVIOUS TREATMENTS: Treatments so far have included [...] results and radiologist's interpretation, available in the [facility] health record. Images were reviewed with the patient/family members in the office today. My personal interpretation of the performed imaging is Has IA prox phalanx fracture at PIP ASSESSMENT / PLAN CLINICAL IMPRESSION / ASSESSMENT: (E18.821S) Closed nondisplaced fracture of proximal phalanx of [...] Millan D.O. [facility] Orthopaedic and Rheumatologic [place] Team Physician, [facility] Consulting Physician, [employer]yer Landeros, Manager Field Sales [phone] Patient verbalizes understanding and agrees with the treatment plan as detailed above.[facility] Diagnosis Liver pain- Primary Abdominal pain, other specified site documented in this encounter [facility] noteNo InformationNort Fandeavor Other Evaluation noteNo assessment information available [facility] Work Phone: Evaluation note* Diagnosis Onset Date Resolution Status Ground-level fall acute Laceration of knee, left acu te Right elbow pain acute [facility] Work Phone: Evaluation note* Diagnosis Onset Date Resolution Status Ground-level fall acute Laceration of knee, left acu te Right elbow pain acute Elbow fracture, right acute Hypothyroidism acute Laceration of knee, left acu te [facility] Work Phone: Evaluation note* Diagnosis Onset Date Resolution Status Ground-level fall acute Laceration of knee, left acu te Right elbow pain acute Elbow fracture, right acute Hypothyroidism acute Laceration of knee, left acu te Fracture of radial neck, right, closed acute [facility] Work Phone: Evaluation note* Diagnosis Onset Date Resolution Status Ground-level fall acute Laceration of knee, left acu te Right elbow pain acute Elbow fracture, right acute Hypothyroidism acute Laceration of knee, left acu te Fracture of radial neck, right, closed acute Fracture of radial neck, right, closed acute [facility] Work Phone: Evaluation note* Diagnosis Onset Date Resolution Status Ground-level fall acute Laceration of knee, left acu te Right elbow pain acute Elbow fracture, right acute Hypothyroidism acute Laceration of knee, left acu te Fracture of radial neck, right, closed acute Fracture of radial neck, right, closed acute Fracture of radial neck, right, closed acute [facility] Work Phone: Evaluation note* Author Hyacinth Hutton [facility] Authored March 06, 2024 2: 47pm The above note written by Thuan STRINGER acting as human recorder, note dictated by Dr.Bryan Ahumada. [facility] Work Phone: Evaluation note* Diagnosis Closed nondisplaced fracture of proximal phalanx of left little finger, initial encounter [facility] Diagnosis Lumbosacral radiculopathy- Primary Thoracic or lumbosacral neuritis or radiculitis, unspecified [facility] Diagnosis Onset Date Resolution Status Admit Date Bilateral foot pain acute Novem 2023 2:36pm Fatty liver acute May 2:36pm GERD (gastroesophageal reflu x disease) acute June 10, 2 024 2:36pm Hypothyroidism acute May 232023 2:36pm Pre-diabetes acute May 2:36pm [facility] Work Phone: Evaluation note* Author Hyacinth Hutton [facility] Authored September 09, 2024 2:43pm The above note written by SIOMARA Bolden acting as human recorder, note dictated by Dr. Peter Ahumada. 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 Medical History Inclusion cyst Surgical History jaw surgery for underbite Surgical History breast biopsy 2018 Hospitalization History see surgical hx [facility] Hospital Discharge instructions Additional Instructions Berrien diet as tolerated Increase oral fluids Take the diclofenac twice a day as needed for pain and inflammation Take oxycodone every 6 hours for severe pain Follow-up with your family doctor for recheck I also gave you the number for gastroenterology Return to the ER for more severe pain high fever vomiting or any other concerns [facility] Work Phone: Hospital Discharge instructions Additional Instructions Sutures [facility] Work Phone: Hospital Discharge instructions Additional Instructions [...] directed for pain unless a prescription was provided.[facility] Work Phone: Reason for visit Narrative* Other Medical (Routine) - Closed Specialty Diagnoses / Procedures Referred By Contac t Referred To Contact Neurology Diagnoses Sciatica, left side Procedures [place] NEEDLE EMG EA EXTREMTY W/PARASPINL AREA COMPLETE [place] NERVE CONDUCTION STUDIES 9-10 STUDIES Robert Martinez MD [address] [place] [address] Phone: tel: fax: Shakeel Rios MD [address] [place] [address] Phone: tel: fax: Referral ID Status Reason Start Date Expiration Date V isits Requested Visits Authorized [id number] Closed Perform Procedure 05/13/2024 11/09/2024 1 1 [facility] Healthcare Summary Purpose Family History No Family [...] DATE CREATED AUTHOR AUTHOR'S ORGANIZ ATION 10/18/2021 [facility] DATE CREATED AUTHOR AUTHOR'S ORGANIZ ATION 09/26/2024 [facility] DATE CREATED AUTHOR AUTHOR'S ORGANIZ ATION 10/06/2024 [facility] DATE CREATED AUTHOR AUTHOR'S ORGANIZ ATION 10/14/2024 [facility] Special[facility] EPIC Source Comments (unrecognize d section and content) In the event this informatio n is protected by the Federal Confidentiality of Alcohol and Drug Abuse Patient Records regulations: The Federal rules restrict any use of the information to criminally investigate or prosecute any alcohol or drug abuse patient.[facility] the event this information is protected by the Federal Confidentiality of Alcohol and Drug Abuse Patient Records regulations: The Federal rules restrict any use of the information to criminally investigate or prosecute any alcohol or drug abuse patient.[facility] the event this information is protected by the Federal Confidentiality of Alcohol and Drug Abuse Patient Records regulations: The Federal rules restrict any use of the information to criminally investigate or prosecute any alcohol or drug abuse patient.[facility] Reason for Visit (unrecogniz ed section and content) Reason Comments Established Patient Reason Comments Right subclavicular shoulder mass Lump u nder collar bone. It is soft, and does not hurt. Reason Comments 1st pow Exc. Rt. chest cyst Care Teams (unrecognized sec tion and content) Team Status: Active Member Role Status Dates Peter Ahumada DO Primary Care Provider Active Team Status: Inactive Member Role Status Dates Peter Ahumada DO Primary Care Provider, Attending Provi dani Active Manager Medicare Marketing Relationship Specialty Start Date End Date Peter Ahumada DO [address] [place] [address] PCP - General Family Practice 11/22/15 Team Status: Inactive Member Role Status Dates Peter Ahumada DO Primary Care Provider Active Alba Marshall , MANAGER TRADING- Emergency Provider Active Team Status: Inactive Member Role Status Dates Peter Ahumada DO Primary Care Provider Active Koki Elkins ([facility]) , INTERIOR DESIGN CONSULTANT Attending Provider Active Team Status: Inactive Member [...] Referral Self Attending Provider Active Start: M car 2024 End: December 03, 2023 Team Status: Inactive [...] 12, 2024 End: March 12, 2024 Manager Medicare Marketing Relationship Specialty Start Date End Date Peter Ahumada DO [address] [place] [address] PCP - General Family Medicine 11/22/15 Team Status: Inactive Member Role Status Dates Peter Ahumada DO Primary Care Provider Active Sta rt: May 19, 2024 End: May 19, 2024 Robert Martinez DPM MS Attending Provider Active Start: May 19, 2024 End: May 19, 2024 Manager Medicare Marketing Relationship Specialty Start Date End Date Peter Ahumada MD [address] [place] [facility] [address] PCP - General 01/25/23 Manager Medicare Marketing Relationship Specialty Start Date End Date Peter Ahumada MD [address] [place] [facility] [address] PCP - General 01/25/23 Team Status: [...] 09, 2024 End: September 09, 2024 Manager Medicare Marketing Relationship Specialty Start Date End Date Peter Ahumada MD [facility] [place] [facility] [address] PCP - General 01/25/23 Team Status: Inactive Member Role Status Dates Alber Haines DO Attending Provider Active Start: September 29, 2024 End: September 29, 2024 Manager Medicare Marketing Relationship Specialty Start Date End Date Peter Ahumada MD [facility] [place] [facility] [address] PCP - General 01/25/23 Goals (unrecognized section and content) [...] BE BASED ON THE PRIMARY CLINICAL RECORDS. [facility] [employer] [facility]. provides no warranty or guarantee of the accuracy or completeness of information in this document.
== END 2024-11-03 06:45 | disposition home or self-care (01) ==
LOC: MRI 06:44
PROVIDERS: PCP Family Medicine; Visit Provider Anesthesiology
DX: M48.062 Spinal stenosis, lumbar region with neurogenic claudication (principal); M51.369 Other intervertebral disc degeneration, lumbar region without mention of lumbar back pain or lower extremity pain
CPT/HCPCS: 72148

== ENCOUNTER 2024-11-12 13:40 | Outpatient (OUT) | payer OTHER, SELFPAY ==
--- NOTE | 2024-11-12 14:16 | P.CN_ITS ---
Consult Note: HPI Data of Consult Patient: known to practice within the last 3 years Consult date: 11/12/24 Requesting Physician: Anastasiya Thomas NP Primary Care Provider: Peter Lozano DO Consult Narrative Reason for consult: low back, left hip pain Narrative: 44yof who presents for evaluation. increasing low back pain. pt has failed to benefit from > 6 weeks of PT and provider guided HEP, heat, ice, tylenol and nsaids. currently on baclofen 10mg BID and mobic 7.5mg BID without side effects. recent left GTB injection providing no relief per pt. continues to have moderate to severe left hip pain. today pain 1-2/10 increasing to 6/10 with standing, walking, sitting, lifting, bending. recently underwent lumbar MRI with results below. cc:: CC: Anastasiya Thomas NP Review of Systems ROS Status of ROS 10 or more systems reviewed and unremark able except as noted in history and below PFSH PFS Medical History Simple cyst of breast ?N60.09 - Solitary cyst of unspecified breast (ICD-10) Sebaceous cyst ?L72.3 - Sebaceous cyst (ICD-10) Low back pain ?M54.50 - Low back pain, unspecified (ICD-10) Hypothyroid ?E03.9 - Hypothyroidism, unspecified (ICD-10) Asthma ?J45.909 - Unspecified asthma, uncomplicated (ICD-10) Surgical History S/P hernia repair ?Z98.890 - Other specified postprocedural states (ICD-10) ?Z87.19 - Personal history of other diseases of the digestive system (ICD-10) History of mandibular surgery ?Z98.890 - Other specified postprocedural states (ICD-10) Meds Home Medications and Allergies Home Medications ?Medication ?Instructions ?Recorded ?Confirmed ?Type esomeprazole magnesium 40 mg 40 mg PO DAILY 06/23/24 09/01/24 History capsule,delayed release glow gummies 06/23/24 History levothyroxine 88 mcg capsule 88 mcg PO DAILY 06/23/24 09/01/24 History meloxicam 15 mg tablet 15 mg PO DAILY 06/23/24 09/01/24 History esteban control 06/23/24 History multivitamin-ferrous 1 tab PO DAILY 06/23/24 09/01/24 History fumarate-folic acid 18 mg-400 mcg tablet (Centrum Women) tb-sy-putesd 68 mcg DFE-caff 95 ea PO 06/23/24 History xs-ftny-hisfu-tea oral effer pwdr pack (ATP Ignite) albuterol sulfate 90 mcg/actuation 2 puff inhalation PRN shortness of 09/01/24 History aerosol inhaler breath or wheezing baclofen 10 mg tablet 10 mg PO BID PRN muscle spasm #60 09/11/24 Rx tabs meloxicam 7.5 mg tablet 7.5 mg PO BID PRN pain #60 tabs 09/11/24 Rx Allergies Allergy/AdvReac Type Severity Reaction Status Date / Time benzonatate AdvReac Mild Diarrhea Verified 06/23/24 15:00 indomethacin AdvReac Mild swelling Verified 06/23/24 15:00 Exam Constitutional Documenting provider has reviewed patient's vital signs: yes Common normals: no apparent distress, oriented x3, healthy appearing, alert and well nourished General appearance: cooperative [facility] Common normals: normocephalic, hearing grossly normal bilaterally and moist oral mucous membranes Head and scalp: normocephalic Eye Common normals: PERRL Pupil: PERRL Neck & C-Spine Common normals: full ROM General: normal visual inspection Chest Common normals: inspection of chest normal Respiratory Common normals: normal respiratory effort, no retractions and no use of accessory muscles Back & Pelvis Lumbar spine/lower back: ROM limited, pain with ROM and lumbar spinal tenderness (left L3,4,5 facet tenderness ) Sacroiliac joints: SI joint(s) abnormal Other: left sij positive elle(patricks), gaenslens, thigh thrust, compression test Extremity Other: moderate pain of left GTB with palpation negative internal and external log roll of left hip Neuro Common normals: oriented x3, moves all extremities, no sensory deficits noted and deep tendon reflexes 2+ bilaterally Sensorium/orientation: alert Psych Common normals: mental status grossly normal, thought process normal, cooperative, affect normal, speech normal and activity/motor behavior normal Speech: normal speech Thought process: normal thought process Results Imaging Lumbar MRI: Attestation: I have reviewed the pertinent imaging results. Radiologist's impression: Multiecho imaging in the axial and sagittal plane was performed without contrast. There is 3 - 4 mm of spondylolisthesis at the lumbosacral junction where there is also degenerative endplate signal change. Alignment is otherwise maintained. There are no acute compression fractures or marrow edema. The conus medullaris is within normal limits for caliber, position and signal intensity. No paraspinal soft tissue abnormalities are identified. At the lumbosacral junction, there is narrowing of the disc space. There is minor annular disc bulging, slightly asymmetric toward the left. There is subtle thecal sac effacement. There is minor inferior foraminal encroachment on the left. At the remaining lumbar levels, no disc bulge or herniation is identified. No central or foraminal stenosis is noted. Additional Findings Additional findings: If on a controlled substance or opioids, I have checked an [place] report on this patient and there are no aberrancies noted in the prescribing history.??If on a controlled substance or opioid a drug screen was completed and reviewed within the last year, and if there has not been a drug screen completed we ordered one today to monitor higher risk, state monitored pain medication use. As part of providing excellent, safe, comprehensive care, the following was completed at our patient's visit: 1. A medication reconciliation and review to ensure accurate knowledge of current/active medications, including asking our patients to inform us about any [id number]-[id number] medications or herbal remedies/nutritional supplements/alternative remedies. 2. A review to specifically ensure our patients have had annual screening for screening for depression, screening for tobacco use, and screening for unhealthy alcohol use. For concerning screenings had a discussion with the patient, provided patient education, and recommended follow-up with primary care provider when appropriate. If patient noted with a risk of falling, they received education on strength, gait, and balance training to prevent future risk of falling. Portions of this note may have been carried over from the previous visit and updated as appropriate. Please note this office utilizes paper charting in addition to the electronic medical record. A list of current medications, vitals, and PMH is available there as the clinical staff outside of myself do not have access to [employer] charting during the clinic day operations. As part of providing quality comprehensive care the current medications, vitals, and PMH were reviewed in the paper chart. Assessment and Plan Assessment and Plan (1) Sacroiliitis: (2) Lumbar spondylosis: (3) Greater trochanteric bursitis of left hip: (4) Chronic left hip pain: (5) Lumbar radiculopathy: (6) Myalgia, other site: Plan lumbar MRI and xray reviewed with pt. proceed with left SIJ injection under fluoroscopy with 10mg po valium 30-60mins prior to procedure due to severe anxi ety. continue current medications. continue HEP as tolerated. f/u 2 weeks after injection
== END 2024-11-12 13:41 | disposition home or self-care (01) ==
LOC: PM 13:40
PROVIDERS: PCP Family Medicine; Visit Provider Nurse Practitioner
DX: M46.1 Sacroiliitis, not elsewhere classified (principal); M47.816 Spondylosis without myelopathy or radiculopathy, lumbar region; M70.62 Trochanteric bursitis, left hip; M25.552 Pain in left hip; M54.16 Radiculopathy, lumbar region; M79.18 Myalgia, other site
CPT/HCPCS: G0463

== ENCOUNTER 2024-12-08 09:42 | Day surgery (SDC) | payer OTHER, SELFPAY ==
--- OUTSIDE RECORDS SUMMARY | 2024-12-08 09:56 | XMS_ITS | CCD ---
Author Organization [facility] CliniSyor Care Team Providers Care 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[place] Name Role Phone DR PETER AHUMADA Primary Care Unavailable REZA, DR CHETAN Orellana Admitting Unavailable REZA, DR CHETAN Orellana Consulting Unavailable DR CHETAN RUDD Attending Unavailable Luz Marina Hernandez Consulting Unavailable Peter Ahumada DO Primary Care Provider [phone] Peter Ahumada Unavailable Blake, DO Green Primary Care Provider [phone] Blake, DO Green Attending Provider Acs, DO Green Primary Care Provider [phone] Kuns, DO Peetr Attending Provider Kuns, DO Green Primary Care Provider Acs, DO Peter Attending Provider Rolando, [facility] [place] Emergency Provider Severo ([facility] [place] DELIA Orellana Attending Provider Blake, DO Green Primary Care Provider [phone] Acs, DO Peter Attending Provider Kuns, DO Peter Primary Care Provider Acs, DO Peter Attending Provider [phone] Kuns, DO Peter Primary Care Provider Kuns, DO Peter Attending Provider Kuns, DO Peter Primary Care Provider Blake, DO Peter Referring Provider Self, Referral Attending Provider Unavailable MD Igor Rudd Emergency Provider Blake, DO Green Attending Provider Yancy, DO Alber Attending Provider DO Chas Meza Attending Provider Blake, DO Green Primary Care Provider Peter Ahumada DO Primary Care Provider Acs, DO Peter Primary Care Provider [phone] Acs, DO Peter Attending Provider JEAN CARLOS Martinez Attending Provider Peter Ahumada MD Primary Care Provider Blake HOOVER, Peter Primary Care Provider Peter Ahumada DO Attending Provider [phone] Robert Martinez DPM Attending Provider Blake HOOVER, Peter Primary Care Provider Robert Martinez DPM Attending Provider [phone] Burton DAO, Andrius De Leonautjeff Attending Unavailable Burton DAO, Andrius Vytautas Attending Unavailable Burton DAO, Vinnyrius Vtravisautjeff Attending Unavailable Peter Ahumada DO Primary Care Provider [phone] Robert Martinez DPM Attending Provider ItzkoAlber perry DO Attending Provider [phone] ITZKOWITZ, ALBER H Attending Unavailable ITZKOWITZ, ALBER H Attending Unavailable ITZKOYAHIRTZ, ALBER H Attending Unavailable ITZKOYAHIRTZ, ALBER H Attending Unavailable ITZKOYAHIRTZ, ALBER H Attending Unavailable ITZKOWITZ, ALBER H Attending Unavailable RAHUL CASTILLO Attending Unavailable ROBERT MARTINEZ Referring Unavailable Itzkowitz, Alber Admitting Unavailable Yancy, Alber Attending Unavailable Peter Ahumada Admitting Unavailable Peter Ahumada Primary Care Unavailable Kuns, Peter Attending Unavailable Kuns, Peter Admitting Unavailable Kuns, Peter Primary Care Unavailable Kuns, Peter Attending Unavailable Itzkowitz, Alber Attending Unavailable Itzkowitz, Alber Admitting Unavailable Kuns, Peter Primary Care Unavailable Susana, Chas A Admitting Unavailable Susana, Chas A Attending Unavailable Kuns, Peter Primary Care Unavailable Susana, Chas A Attending Unavailable Kuns, Peter Primary Care Unavailable Susana, Chas A Admitting Unavailable Kuns, Peter Admitting Unavailable Kuns, Peter Primary Care Unavailable Kuns, Peter Attending Unavailable Itzkowitz, Alber Attending Unavailable Itzkowitz, Alber Admitting Unavailable Kuns, Peter Primary Care Unavailable Igor Rudd Attending Unavailable Kuns, Peter Primary Care Unavailable RuddIgor Admitting Unavailable Kuns, Peter Admitting Unavailable Kuns, Peter Primary Care Unavailable Kuns, Peter Attending Unavailable Kuns, Peter Primary Care Unavailable Robert Martinez Admitting Unavailable Robert Martinez Attending Unavailable Itzkowitz, Alber Attending Unavailable Itzkowitz, Alber Admitting Unavailable Kuns, Peter Primary Care Unavailable Kuns, Peter Primary Care Unavailable Robert Martinez Attending Unavailable Robert Martinez Admitting Unavailable Kuns, Peter Primary Care Unavailable Robert Martinez Attending Unavailable Robert Martinez Admitting Unavailable Allergies Allergy Classification Reported Allergen(s) Allergy Type Date of Onset Reaction(s) Facility (12 sources) Indomethacin Drug Allergy [address] [facility] (13 sources) benzonatate Drug Allergy 4 diarrhea [facility] (6 sources) benzonatate Drug Allergy 3 GI intolerance [facility] Healthcare Work Phone: (1 source) benzonatate Drug Allergy [address] [place] [address] Repository (1 source) Indomethacin Drug Allergy [address] [place] [address] Repository Medications Current Medications Medication Drug Class(es) Dates Sig (Normalized) Sig (Original) acetaminophen 325 mg / HYDROcodone bitartrate 5 mg oral tablet (20 sources) Opioid Agonist Start: 12-31-2023 End: 02-13-2024 take 1 tablet by mouth every four to six hours as needed for pain HYDROcodone-aceta minophen ([place]) 5-325 MG tablet TAKE 1 TABLET BY [...] 16 02December 19, 2023 December 19, 2023 12:03pm Start: [...] six hours as needed for pain Hydrocodone-Acetaminophen ([place]) 5-325 mg tablet Discontinued 2 TAB PO EVERY 4-6 HOURS as needed for pain April 24, 2017 12:00am March 26, 2018 9:04am [id number] actuat albuterol 0.09 mg/actuat metered dose [...] EVERY 4-6 HOURS as needed for pain 09 12January 29, 2024 12:00am February 13, 2024 3:12pm [...] MG PO Four times daily 40 February 08, 2021 12:00am November 01, 2022 [...] Start: 11-05-2020 take 1 tablet by yoana once daily as needed K-Dur 10 meq [...] 12-17-2023 Episodic Other aftercare (1 source) Other intermediate (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 therapy; Translations: [OTH CAR HIKER CURRENT DRUG THERAPY] Onset: 1 Episodic Other [...] pain; Translations: [Liver pain] Onset: 02-22-2021 Episodic E Codes: Fall (20 sources) Fall [...] in limb] Onset: 05-19-2024 06-10-2024 Episodic Other connective tissue disease (1 source) Plantar fascial fibromatosis; Translations: [Plantar fascial fibromatosis] Onset: 06-04-2024 Episodic Other gastrointestinal disorders (4 sources) Diarrhea, [...] Test Name Value Interpretation Reference Range Facility A1C with Estimated Average Sharmaine pickard 12-05-2024 Glucose [Mass/Vol] 117 mg/dL Normal [facility] Comment on above: Result Comment: PERF ORMED BY: [place] [address] PATHOLOGIST [employer] PADILLA LYMAN M.D. Performed By: #### A 1C WT eA, LIPID, CMP, T4F, TSH3, CBC #### [address] HbA1c (Bld) [Mass fraction] 5.7 % High 4.3-5.6 [facility] Comment on above: Result Comment: Incr eased risk for diabetes: 5.7 - 6.4 diabetes: >6.4 glycemic control for adults with diabetes: <7.0 Performed By: #### A 1C WTH eA, LIPID, CMP, T4F, TSH3, CBC #### [place] [id number] [facility] Complete Blood Count Auto Di ffon 12-05-2024 Basophils (Bld) [#/Vol] 0.1 10*3/uL Normal 0.0-0.2 [facility] Comment on above: Result Comment: PERF ORMED BY: [place] [address] PATHOLOGIST [employer] PADILLA LYMAN M.D. Performed By: #### A 1C WTH eA, LIPID, CMP, T4F, TSH3, CBC #### [place] [id number] [facility] Basophils/100 WBC (Bld) 0.8 % Normal . [facility] Comment on above: Performed By: #### A 1C WTH eA, LIPID, CMP, T4F, TSH3, CBC #### [address] Eosinophils (Bld) [#/Vol] 0.1 10*3/uL Normal 0.0-0.45 [facility] Comment on above: Performed By: #### A 1C WTH eA, LIPID, CMP, T4F, TSH3, CBC #### [address] Eosinophils/100 WBC (Bld) 1.7 % Normal . [facility] Comment on above: Performed By: #### A 1C WTH eA, LIPID, CMP, T4F, TSH3, CBC #### [address] Erythrocyte distribution width (RBC) [Ratio] 12.7 % Normal 11.9-15.3 [facility] Comment on above: Performed By: #### A 1C WTH eA, LIPID, CMP, T4F, TSH3, CBC #### [address] Hematocrit (Bld) [Volume fraction] 36.1 % Normal 34.0-46.4 [facility] Comment on above: Performed By: #### A 1C WTH eA, LIPID, CMP, T4F, TSH3, CBC #### [address] Hemoglobin (Bld) [Mass/Vol] 12.1 g/dL Normal 11.8-15.4 [facility] Comment on above: Performed By: #### A 1C WTH eA, LIPID, CMP, T4F, TSH3, CBC #### [address] Lymphocytes (Bld) [#/Vol] 1.7 10*3/uL Normal 1.00-4.8 [facility] Comment on above: Performed By: #### A 1C WTH eA, LIPID, CMP, T4F, TSH3, CBC #### [address] Lymphocytes/100 WBC (Bld) 23.9 % Normal . [facility] Comment on above: Performed By: #### A 1C WTH eA, LIPID, CMP, T4F, TSH3, CBC #### [address] MCH (RBC) [Entitic mass] 29.1 pg Normal 24.7-34.3 [facility] Comment on above: Performed By: #### A 1C WTH eA, LIPID, CMP, T4F, TSH3, CBC #### [address] MCV (RBC) [Entitic vol] 87.0 fL Normal 80-100 [facility] Comment on above: Performed By: #### A 1C WTH eA, LIPID, CMP, T4F, TSH3, CBC #### [address] Mean Corpuscular HGB Conc 33.5 g/dL Normal 32.0-35.0 [facility] Comment on above: Performed By: #### A 1C WTH eA, LIPID, CMP, T4F, TSH3, CBC #### [address] Monocytes (Bld) [#/Vol] 0.5 10*3/uL Normal 0.0-0.8 [facility] Comment on above: Performed By: #### A 1C WTH eA, LIPID, CMP, T4F, TSH3, CBC #### [address] Monocytes/100 WBC (Bld) 7.2 % Normal . [facility] Comment on above: Performed By: #### A 1C WTH eA, LIPID, CMP, T4F, TSH3, CBC #### [address] Neutrophils (Bld) [#/Vol] 4.7 10*3/uL Normal 1.8-7.7 [facility] Comment on above: Performed By: #### A 1C WTH eA, LIPID, CMP, T4F, TSH3, CBC #### [facility] [address] Neutrophils/100 WBC (Bld) 66.4 % Normal . [facility] Comment on above: Performed By: #### A 1C WTH eA, LIPID, CMP, T4F, TSH3, CBC #### [facility] [address] NRBC% 0.0 /100{WBC} Normal 0-0.5 [facility] Comment on above: Performed By: #### A 1C WTH eA, LIPID, CMP, T4F, TSH3, CBC #### [facility] [address] Platelet mean volume (Bld) [Entitic vol] 7.7 fL Normal 6.3-10.7 [facility] Comment on above: Performed By: #### A 1C WTH eA, LIPID, CMP, T4F, TSH3, CBC #### [address] Platelets (Bld) [#/Vol] 296 10*3/uL Normal 150-450 [facility] Comment on above: Performed By: #### A 1C WTH eA, LIPID, CMP, T4F, TSH3, CBC #### [address] RBC (Bld) [#/Vol] 4.14 10*6/uL Normal 3.60-5.00 [facility] Comment on above: Performed By: #### A 1C WTH eA, LIPID, CMP, T4F, TSH3, CBC #### [address] WBC (Bld) [#/Vol] 7.1 10*3/uL Normal 3.8-11.6 [facility] Comment on above: Performed By: #### A 1C WTH eA, LIPID, CMP, T4F, TSH3, CBC #### [address] Comprehensive Metabolic Pane prasanth 12-05-2024 Albumin [Mass/Vol] 3.7 g/dL Normal 3.5-5.7 [facility] Comment on above: Performed By: #### A 1C WTH eA, LIPID, CMP, T4F, TSH3, CBC #### [address] Albumin/Globulin [Mass ratio] 1.6 {ratio} Normal [facility] Comment on above: Performed By: #### A 1C WTH eA, LIPID, CMP, T4F, TSH3, CBC #### [address] ALP [Catalytic activity/Vol] 42 U/L Normal 34-104 [facility] Comment on above: Performed By: #### A 1C WTH eA, LIPID, CMP, T4F, TSH3, CBC #### [address] ALT [Catalytic activity/Vol] 6 U/L Low 7-52 [facility] Comment on above: Performed By: #### A 1C WTH eA, LIPID, CMP, T4F, TSH3, CBC #### [address] Anion gap [Moles/Vol] 8.6 mmol/L Normal 6.0-15.0 [facility] Comment on above: Performed By: #### A 1C WTH eA, LIPID, CMP, T4F, TSH3, CBC #### [address] AST [Catalytic activity/Vol] 12 U/L Low 13-39 [facility] Comment on above: Performed By: #### A 1C WTH eA, LIPID, CMP, T4F, TSH3, CBC #### [address] Bilirubin [Mass/Vol] 0.3 mg/dL Normal 0.3-1.0 [facility] Comment on above: Performed By: #### A 1C WTH eA, LIPID, CMP, T4F, TSH3, CBC #### [address] Calcium [Mass/Vol] 8.5 mg/dL Low 8.6-10.3 [facility] Comment on above: Performed By: #### A 1C WTH eA, LIPID, CMP, T4F, TSH3, CBC #### [address] Chloride [Moles/Vol] 105 mmol/L Normal 98-107 [facility] Comment on above: Performed By: #### A 1C WTH eA, LIPID, CMP, T4F, TSH3, CBC #### [address] CO2 [Moles/Vol] 29.8 mmol/L Normal 21.0-31.0 [facility] Comment on above: Performed By: #### A 1C WTH eA, LIPID, CMP, T4F, TSH3, CBC #### [address] Creatinine [Mass/Vol] 0.50 mg/dL Low 0.60-1.20 [facility] Comment on above: Performed By: #### A 1C WTH eA, LIPID, CMP, T4F, TSH3, CBC #### [address] GFR/1.73 sq M.predicted MDRD (S/P/Bld) [Vol rate/Area] mL/min/{1.73_m2} Normal [facility] Comment on above: Performed By: #### A 1C WTH eA, LIPID, CMP, T4F, TSH3, CBC #### [address] Globulin (S) [Mass/Vol] 2.3 g/dL Normal [facility] Comment on above: Performed By: #### A 1C WTH eA, LIPID, CMP, T4F, TSH3, CBC #### [address] Glucose [Mass/Vol] 98 mg/dL Normal 70-100 [facility] Comment on above: Result Comment: [facility] Glucose Reference Range is dependent on time and content of last meal. Glucose of more than 200 mg/dL in a nonstressed, ambulatory subject supports the diagnosis of Diabetes Mellitus. ADA recommended reference range Performed By: #### A 1C WTH eA, LIPID, CMP, T4F, TSH3, CBC #### [address] Potassium [Moles/Vol] 4.4 mmol/L Normal 3.5-5.1 [facility] Comment on above: Performed By: #### A 1C WTH eA, LIPID, CMP, T4F, TSH3, CBC #### [address] Protein [Mass/Vol] 6.0 g/dL Low 6.4-8.9 [facility] Comment on above: Performed By: #### A 1C WTH eA, LIPID, CMP, T4F, TSH3, CBC #### [address] Sodium [Moles/Vol] 139 mmol/L Normal 136-145 [facility] Comment on above: Performed By: #### A 1C WTH eA, LIPID, CMP, T4F, TSH3, CBC #### [address] Urea nitrogen [Mass/Vol] 16 mg/dL Normal 7-25 [facility] Comment on above: Performed By: #### A 1C WTH eA, LIPID, CMP, T4F, TSH3, CBC #### [address] Free T4 (Free Thyroxine)on 0 12-05-2024 Free T4 [Mass/Vol] 1.01 ng/dL Normal 0.61-1.12 [facility] Comment on above: Performed By: #### A 1C WTH eA, LIPID, CMP, T4F, TSH3, CBC #### [address] Lipid Panelon 12-05-2024 Cholesterol [Mass/Vol] 151 mg/dL Normal 140-200 [facility] Comment on above: Result Comment: Chol less than 200 mg/dl low risk Chol 201-239 mg/dl borderline risk Chol 240 mg/dl and greater high risk Performed By: #### A 1C WTH eA, LIPID, CMP, T4F, TSH3, CBC #### [facility] [address] [place] [address] [place] Cholesterol in HDL [Mass/Vol] 50 mg/dL Normal 23-92 [facility] Comment on above: Result Comment: HDL CHOL ATP-III CLASSIFICATION Cardiovascular Risk HDL > or equal to 60 mg/dL LOW HDL < 40 mg/dL HIGH Performed By: #### A 1C WTH eA, LIPID, CMP, T4F, TSH3, CBC #### [facility] [address] [place] [address] [place] Cholesterol.total/Chol esterol in HDL [Mass ratio] 3.0 {ratio} Normal <5.0 [facility] Comment on above: Performed By: #### A 1C WTH eA, LIPID, CMP, T4F, TSH3, CBC #### [facility] [address] LDL Cholesterol,Calculated 84 mg/dL Normal 0-100 [facility] Comment on above: Result Comment: LDL ATP III CLASSIFICATION LDL less than 100 mg/dL Optimal LDL 100-129 mg/dL Near or above optimal LDL 130-159 mg/dL Borderline high LDL 160-189 mg/dL High LDL greater than 189 mg/dL Very high Performed By: #### A 1C WTH eA, LIPID, CMP, T4F, TSH3, CBC #### [facility] [address] Triglyceride w/Reflex 83 mg/dL Normal 0-149 [facility] Comment on above: Result Comment: TRIG ATP III CLASSIFICATION TRIG less than 150 mg/dL Normal TRIG 150-199 mg/dL Borderline high TRIG 200-500 mg/dL High TRIG greater than 500 mg/dL Very high Standard traceable to the Center for Disease Conrtrol and Prevention (CDC) test method. Performed By: #### A 1C WTH eA, LIPID, CMP, T4F, TSH3, CBC #### [facility] [address] [place] [id number] [facility] VLDL CHOLESTEROL 16 mg/dL Normal [facility] Comment on above: Performed By: #### A 1C WTH eA, LIPID, CMP, T4F, TSH3, CBC #### [facility] [address] [place] [id number] [facility] Thyroid Stimulating Hormoneo n 12-05-2024 TSH Qn 0.30 m[IU]/L Low 0.45-5.33 [facility] Comment on above: Result Comment: PERF ORMED BY: [facility] [address] [facility] [place] [address] PATHOLOGIST [employer] PADILLA LYMAN M.D. Performed By: #### A 1C WT eA, LIPID, CMP, T4F, TSH3, CBC #### [facility] [address] Pathology study report docum entOrdered By: Adolfo Madrid on 09-30-2024 Pathology study [facility] Other Phone: Prasanth 09-29-2024 L ---- Specimen: [id number] Received: 09/29/24 Status: JORGE Bergman Num: [id number] Spec Type: Surgical Subm Dr: Alber Haines, DO Tissues: A Skin Cyst (RT CHEST CYSTIC WALL) Procedures: ASHLEY, Gross/Micro L3 Age/ Patient Sex Location Account Attending Physician Darling Khanna Manuel 44/F CT [id number] Alber Haines, SPEC NUM: [id number] RECD: 09/29/241219 STATUS: JORGE BERGMAN NUM: [id number] ALISTAIR: 09/29/24- SUBM DR: Alber Haines DO ENTERED: 09/29/24-[address]: [facility] SPEC TYPE: Surgical DEPT: S ORDERED: [...] submitted in a single cassette. (1, ns, [id number]) NOEL Specimen: [id number] Received: 09/29/24 Status: JORGE Bergman Num: [id number] Spec Type: Surgical Subm Dr: Alber Haines DO Tissues: A Skin Cyst (RT CHEST CYSTIC WALL) Procedures: Luma RAMIREZ/Fabiana L3 Patient: Darling Khanna [id number] (Continued) Specimen: Received: 09/29/24 (Continued) Signed (signature on file) Adolfo Madrid MD 09/30/24 1501 Specimen: Received: 09/29/24 Status: JORGE Bergman Num: [id number] Spec Type: Surgical Subm Dr: Alber Haines DO Tissues: A Skin Cyst (RT CHEST CYSTIC WALL) Procedures: ASHLEY, Gross/Micro L3 Patient: Solo hKannatheo Jackson [id number] (Continued) Specimen: [id number] Received: 09/29/24 (Continued) Microscopic Description Microscopic examinations are performed supporting the above interpretation CPT Codes 15812 Specimen: [id number] Received: 09/29/24 Status: JORGE Bergman Num: [id number] Spec Type: Surgical Subm Dr: Alber Haines DO Tissues: A Skin Cyst (RT CHEST CYSTIC WALL) Procedures: HE, Gross/Micro L3 Patient: Darling Khanna [id number] (Continued) Signed (signature on file) Adolfo Madrdi MD 09/30/24 1501 Normal [facility] MR ankle LT wo conon 024 [place] [address] MRI Report Signed Patient: Darling Khanna MR#: [id number] : 1980 Acct:[id number] Age/Sex: 44 / F ADM Date: 06/04/24 Loc: Room: Type: [facility] Attending Dr: Robert Martinez DPM, MS [...] Osmani Stovall M.D.06/04/2024 10:29 PM Dictation Location: [place] [address] Transcribed By: [facility] 06/04/242228 Dictated By: Osmani Stovall DO 06/04/242217 Signed By: 06/04/242228 Normal [facility] Magnetic resonance imaging r eportOrdered By: Osmani Stovall on 06-04-2024 Study report [facility] [place] [address] [place] [address] MRI Report Signed Patient: Darling Khanna MR#: [id number] : 1980 Acct:[id number] Age/Sex: 44 / F ADM Date: 4 Loc: MR Room: Type: [facility] Attending Dr: Robert Martinez DPM MS [...] Osmani Stovall M.D.06/04/2024 10:29 PM Dictation Location: [place] [address] Transcribed By: [facility] 06/04/242228 Dictated By: Osmani Stovall DO 06/04/242217 Signed By: 06/04/242228 [facility] X-ray reportOrdered By: Vikas Stovall on 06-04-2024 Study report [address] [address] XRay Report Signed Patient: Darling Khanna MR#: [id number] : 1980 Acct:[id number] Age/Sex: 44 / F ADM Date: 4 [...] Osmani Stovall M.D.06/04/2024 11:51 PM Dictation Location: [place] [address] Transcribed By: [facility] 06/04/242350 Dictated By: Osmani Stovall DO 06/04/242350 Signed By: 06/04/24 [facility] XR pre/post mri xrayon 06-04 XR pre/post mri xray [address] [address] XRay Report Signed Patient: Darling Khanna MR#: [id number] : 1980 Acct:[id number] Age/Sex: 44 / F ADM Date: 06/04/24 Loc: MR Room: Type: [facility] CLI Attending Dr: Robert Martinez [...] Osmani Stovall M.D.06/04/2024 11:51 PM Dictation Location: [place] [address] Transcribed By: [facility] 06/04/242350 Dictated By: Osmani Stovall DO 06/04/242350 Signed By: 06/04/242350 Normal [facility] EMG 2 Extremitieson 05-22-20 24 S1 radiculopathy, le ft, mild [facility] NVC -12 Nerveson 4 S1 radiculopathy, le ft, mild [facility] [place] upper GI w air*on 024 [place] upper GI w air* [facility] [place] [address] [place] [address] Fluoroscopy Report Signed Patient: Darling Khanna MR#: [id number] : 1980 Acct:[id number] Age/Sex: 43 / F ADM Date: 03/12/24 Loc: Room: Type: [facility] Attending Dr: Peter Ahumada DO Copies [...] 1040 Signed By: 03/12/24 1409 Normal [facility] US gall bladderon 03-12-2024 US gall bladder [facility] [place] [address] [place], [place] [id number] Ultrasound Report Signed Patient: Darling Khanna MR#: [id number] : 1980 Acct:[id number] Age/Sex: 43 / F ADM Date: 03/12/24 Loc: Room: Type: [facility] Attending Dr: Peter Ahumada DO Ordering [...] Osmani Stovall M.D.03/12/2024 10:39 AM Dictation Location: [id number] Tech: Nellie Solis Transcribed By: ADIA 03/12/24 1039 Dictated By: Osmani Stovall DO 03/12/24 1036 Signed By: 03/12/24 1039 Normal [facility] A1C with Estimated Average G luon 03-05-2024 Glucose [Mass/Vol] 128 mg/dL Normal [facility] Comment on above: Result Comment: PERF ORMED BY: [place] [address] PATHOLOGIST [employer] ALVIN VIDES M.D. Performed By: #### A 1C WTH eA, LIPID, CMP, T4F, TSH3, CBC #### [address] Alanine aminotransferase [En zymatic activity/volume] in Serum or PlasmaOrdered By: Peter Ahumada on 03-05-2024 ALT [Catalytic activity/Vol] 10 U/L Normal 7-52 [facility] Comment on above: Performed By: #### A 1C WTH eA, LIPID, CMP, T4F, TSH3, CBC #### [address] Albumin [Mass/volume] in Ser um or Plasma by Bromocresol green (BCG) dye binding methoOrdered By: Peter Ahumada on 03-05-2024 Albumin BCG dye [Mass/Vol] 4.0 g/dL 3.5-5.7 [facility] Alkaline phosphatase [Enzyma tic activity/volume] in Serum or PlasmaOrdered By: Peter Ahumada on 03-05-2024 ALP [Catalytic activity/Vol] 46 U/L Normal 34-104 [facility] Comment on above: Performed By: #### A 1C WTH eA, LIPID, CMP, T4F, TSH3, CBC #### [address] Aspartate aminotransferase [ Enzymatic activity/volume] in Serum or PlasmaOrdered By: Peter Ahumada on 03-05-2024 AST [Catalytic activity/Vol] 20 U/L Normal 13-39 [facility] Comment on above: Performed By: #### A 1C WTH eA, LIPID, CMP, T4F, TSH3, CBC #### [address] Automated basophil %Ordered By: Peter Ahumada on 03-05-2024 Basophils/100 WBC (Bld) 0.7 % Normal . [facility] Comment on above: Performed By: #### A 1C WTH eA, LIPID, CMP, T4F, TSH3, CBC #### [facility] [address] Automated basophil countOrde red By: Peter Ahumada on 03-05-2024 Basophils (Bld) [#/Vol] 0.0 10*3/uL Normal 0.0-0.2 [facility] Comment on above: Result Comment: PERF ORMED BY: [place] [address] PATHOLOGIST [employer] ALVIN VIDES M.D. Performed By: #### A 1C [facility] eA, LIPID, CMP, T4F, TSH3, CBC #### [address] Automated blood monocyte cou ntOrdered By: Peter Ahumada on 03-05-2024 Monocytes (Bld) [#/Vol] 0.5 10*3/uL Normal 0.0-0.8 [facility] Comment on above: Performed By: #### A 1C [facility] eA, LIPID, CMP, T4F, TSH3, CBC #### [address] Automated eosinophil %Ordere d By: Peter Ahumada on 03-05-2024 Eosinophils/100 WBC (Bld) 2.2 % Normal . [facility] Comment on above: Performed By: #### A 1C [facility] eA, LIPID, CMP, T4F, TSH3, CBC #### [facility] [address] Automated eosinophil countOr dered By: Peter Ahumada on 03-05-2024 Eosinophils (Bld) [#/Vol] 0.1 10*3/uL Normal 0.0-0.45 [facility] Comment on above: Performed By: #### A 1C [facility] eA, LIPID, CMP, T4F, TSH3, CBC #### [address] Automated monocyte %Ordered By: Peter Ahumada on 03-05-2024 Monocytes/100 WBC (Bld) 7.5 % Normal . [facility] Comment on above: Performed By: #### A 1C [facility] eA, LIPID, CMP, T4F, TSH3, CBC #### [facility] [address] Automated neutrophil %Ordere d By: Peter Ahumada on 03-05-2024 Neutrophils/100 WBC (Bld) 53.3 % Normal . [facility] Comment on above: Performed By: #### A 1C [facility] eA, LIPID, CMP, T4F, TSH3, CBC #### [facility] [address] Bilirubin.total [Mass/volume ] in Serum or PlasmaOrdered By: Peter Ahumada on 03-05-2024 Bilirubin [Mass/Vol] 0.4 mg/dL Normal 0.3-1.0 [facility] Comment on above: Performed By: #### A 1C [facility] eA, LIPID, CMP, T4F, TSH3, CBC #### [facility] [address] [place] [address] [place] Calcium [Mass/volume] in Ser um or PlasmaOrdered By: Peter Ahumada on 03-05-2024 Calcium [Mass/Vol] 8.9 mg/dL Normal 8.6-10.3 [facility] Comment on above: Performed By: #### A 1C [facility] eA, LIPID, CMP, T4F, TSH3, CBC #### [facility] [address] [place] [address] [place] Carbon dioxide, total [Moles /volume] in Serum or PlasmaOrdered By: Peter Ahumada on 03-05-2024 CO2 [Moles/Vol] 28.7 mmol/L Normal 21.0-31.0 [facility] Comment on above: Performed By: #### A 1C WT eA, LIPID, CMP, T4F, TSH3, CBC #### [facility] [address] [place] [address] [place] Chloride [Moles/volume] in S renetta or PlasmaOrdered By: Peter Ahumada on 03-05-2024 Chloride [Moles/Vol] 103 mmol/L Normal 98-107 [facility] Comment on above: Performed By: #### A 1C WTH eA, LIPID, CMP, T4F, TSH3, CBC #### [facility] [address] Cholesterol [Mass/volume] in Serum or PlasmaOrdered By: Peter Ahumaad on 03-05-2024 Cholesterol [Mass/Vol] 166 mg/dL Normal 140-200 [facility] Comment on above: Chol less than 200 m g/dl low riskChol 201-239 mg/dl borderline riskChol 240 mg/dl and greater high risk Result Comment: Chol less than 200 mg/dl low risk Chol 201-239 mg/dl borderline risk Chol 240 mg/dl and greater high risk Performed By: #### A 1C WT eA, LIPID, CMP, T4F, TSH3, CBC #### [facility] [address] [place] [id number] [facility] Cholesterol in LDL Calc [Mas s/Vol]Ordered By: Peter Ahumada on 03-05-2024 Cholesterol in LDL [Mass/Vol] 76 mg/dL 0-100 [facility] Comment on above: LDL ATP III CLASSIFI CATIONLDL less than 100 mg/dL OptimalLDL 100-129 mg/dL Near or above optimalLDL 130-159 mg/dL Borderline highLDL 160-189 mg/dL HighLDL greater than 189 mg/dL Very high Cholesterol in VLDL Calc [Ma ss/Vol]Ordered By: Peter Ahumada on 03-05-2024 Cholesterol in VLDL [Mass/Vol] 40 mg/dL [facility] Complete Blood Count Auto Di ffon 03-05-2024 Mean Corpuscular HGB Conc 33.6 g/dL Normal 32.0-35.0 [facility] Comment on above: Performed By: #### A 1C WT eA, LIPID, CMP, T4F, TSH3, CBC #### [facility] [address] NRBC% 0.1 /100{WBC} Normal 0-0.5 [facility] Comment on above: Performed By: #### A 1C WTH eA, LIPID, CMP, T4F, TSH3, CBC #### [facility] [address] Comprehensive Metabolic Pane prasanth 03-05-2024 Albumin [Mass/Vol] 4.0 g/dL Normal 3.5-5.7 [facility] Comment on above: Performed By: #### A 1C WT eA, LIPID, CMP, T4F, TSH3, CBC #### [facility] [address] GFR/1.73 sq M.predicted MDRD (S/P/Bld) [Vol rate/Area] mL/min/{1.73_m2} Normal [facility] Comment on above: Performed By: #### A 1C WT eA, LIPID, CMP, T4F, TSH3, CBC #### [facility] [address] Creatinine [Mass/volume] in Serum or PlasmaOrdered By: Peter Ahumada on 03-05-2024 Creatinine [Mass/Vol] 0.63 mg/dL Normal 0.60-1.20 [facility] Comment on above: Performed By: #### A 1C WT eA, LIPID, CMP, T4F, TSH3, CBC #### [facility] [address] Erythrocyte distribution wid th [Ratio] by Automated countOrdered By: Peter Ahumada on 03-05-2024 Erythrocyte distribution width (RBC) [Ratio] 13.4 % Normal 11.9-15.3 [facility] Comment on above: Performed By: #### A 1C WT eA, LIPID, CMP, T4F, TSH3, CBC #### [facility] [address] [place] [address] [place] Erythrocytes [#/volume] in B lood by Automated countOrdered By: Peter Ahumada on 03-05-2024 RBC (Bld) [#/Vol] 4.44 10*6/uL Normal 3.60-5.00 [facility] Comment on above: Performed By: #### A 1C WTH eA, LIPID, CMP, T4F, TSH3, CBC #### [facility] [address] [place] [address] [place] Glucose [Mass/volume] in Ser um or PlasmaOrdered By: Peter Ahumada on 03-05-2024 Glucose [Mass/Vol] 96 mg/dL Normal 70-100 [facility] Comment on above: ADA recommended refe rence rangeRandom Glucose Reference Range is dependent on time and content of last meal. Glucose of more than 200 mg/dL in a nonstressed, ambulatory subject supports the diagnosis of Diabetes Mellitus. Result Comment: [place] om Glucose Reference Range is dependent on time and content of last meal. Glucose of more than 200 mg/dL in a nonstressed, ambulatory subject supports the diagnosis of Diabetes Mellitus. ADA recommended reference range Performed By: #### A 1C WTH eA, LIPID, CMP, T4F, TSH3, CBC #### [facility] [address] [place] [address] [place] Glucose mean value [Mass/vol ume] in Blood Estimated from glycated hemoglobinOrdered By: Peter Ahumada on 03-05-2024 Average glucose Estimated from glycated hemoglobin (Bld) [Mass/Vol] 128 mg/dL [facility] Hematocrit [Volume Fraction] of Blood by Automated countOrdered By: Peter Ahumada on 03-05-2024 Hematocrit (Bld) [Volume fraction] 37.2 % Normal 34.0-46.4 [facility] Comment on above: Performed By: #### A 1C WTH eA, LIPID, CMP, T4F, TSH3, CBC #### [facility] [address] [place] [id number] [place] Hemoglobin A1c percentageOrd ered By: Peter Ahumada on 03-05-2024 HbA1c (Bld) [Mass fraction] 6.1 % High 4.3-5.6 [facility] Comment on above: Increased risk for d iabetes: 5.7 - 6.4diabetes: >6.4glycemic control for adults with diabetes: <7.0 Result Comment: Incr eased risk for diabetes: 5.7 - 6.4 diabetes: >6.4 glycemic control for adults with diabetes: <7.0 Performed By: #### A 1C WTH eA, LIPID, CMP, T4F, TSH3, CBC #### [facility] [address] [place] [id number] [place] Hemoglobin [Mass/volume] in BloodOrdered By: Peter Ahumada on 03-05-2024 Hemoglobin (Bld) [Mass/Vol] 12.5 g/dL Normal 11.8-15.4 [facility] Comment on above: Performed By: #### A 1C [facility] eA, LIPID, CMP, T4F, TSH3, CBC #### [facility] [address] Leukocytes [#/volume] correc bryan for nucleated erythrocytes in Blood by Automated counOrdered By: Peter Ahumada on 03-05-2024 WBC corrected for nucl RBC Auto (Bld) [#/Vol] 6.2 10*3/uL 3.8-11.6 [facility] Leukocytes [#/volume] in Blo od by Automated countOrdered By: Peter Ahumada on 03-05-2024 WBC (Bld) [#/Vol] 6.2 10*3/uL Normal 3.8-11.6 [facility] Comment on above: Performed By: #### A 1C [facility] eA, LIPID, CMP, T4F, TSH3, CBC #### [facility] [address] [place] [id number] [facility] Lipid Panelon 03-05-2024 LDL Cholesterol,Calculated 76 mg/dL Normal 0-100 [facility] Comment on above: Result Comment: LDL ATP III CLASSIFICATION LDL less than 100 mg/dL Optimal LDL 100-129 mg/dL Near or above optimal LDL 130-159 mg/dL Borderline high LDL 160-189 mg/dL High LDL greater than 189 mg/dL Very high Performed By: #### A 1C [facility] eA, LIPID, CMP, T4F, TSH3, CBC #### [facility] [address] [place] [id number] [facility] Triglyceride w/Reflex 202 mg/dL High 0-149 [facility] Comment on above: Result Comment: TRIG ATP III CLASSIFICATION TRIG less than 150 mg/dL Normal TRIG 150-199 mg/dL Borderline high TRIG 200-500 mg/dL High TRIG greater than 500 mg/dL Very high Standard traceable to the Center for Disease Conrtrol and Prevention (CDC) test method. Performed By: #### A 1C [facility] eA, LIPID, CMP, T4F, TSH3, CBC #### [facility] [address] VLDL CHOLESTEROL 40 mg/dL Normal [facility] Comment on above: Performed By: #### A 1C WT eA, LIPID, CMP, T4F, TSH3, CBC #### [facility] [address] Lymphocytes [#/volume] in Bl ood by Automated countOrdered By: Peter Ahumada on 03-05-2024 Lymphocytes (Bld) [#/Vol] 2.2 10*3/uL Normal 1.00-4.8 [facility] Comment on above: Performed By: #### A 1C WT eA, LIPID, CMP, T4F, TSH3, CBC #### [address] Lymphocytes/100 leukocytes i n Blood by Automated countOrdered By: Peter Ahumada on 03-05-2024 Lymphocytes/100 WBC (Bld) 36.3 % Normal . [facility] Comment on above: Performed By: #### A 1C WT eA, LIPID, CMP, T4F, TSH3, CBC #### [address] MCH [Entitic mass] by Automa bryan countOrdered By: Peter Ahumada on 03-05-2024 MCH (RBC) [Entitic mass] 28.2 pg Normal 24.7-34.3 [facility] Comment on above: Performed By: #### A 1C WT eA, LIPID, CMP, T4F, TSH3, CBC #### [address] MCHC Auto (RBC) [Mass/Vol]Or dered By: Peter Ahumada on 03-05-2024 MCHC (RBC) [Mass/Vol] 33.6 g/dL 32.0-35.0 [facility] MCV [Entitic volume] by Auto mated countOrdered By: Peter Ahumada on 03-05-2024 MCV (RBC) [Entitic vol] 83.8 fL Normal 80-100 [facility] Comment on above: Performed By: #### A 1C WT eA, LIPID, CMP, T4F, TSH3, CBC #### [facility] [address] Neutrophils [#/volume] in Bl ood by Automated countOrdered By: Peter Ahumada on 03-05-2024 Neutrophils (Bld) [#/Vol] 3.3 10*3/uL Normal 1.8-7.7 [facility] Comment on above: Performed By: #### A 1C [facility] eA, LIPID, CMP, T4F, TSH3, CBC #### [facility] [address] No Panel InformationOrdered By: Peter Ahumada on 03-05-2024 Estimated GFR (CKD-EPI) > 60.0 mL/Min [facility] Creatinine Clearance (Chem N/A [facility] Nucleated erythrocytes [Pres ence] in Blood by Automated countOrdered By: Peter Ahumada on 03-05-2024 Nucleated RBC Auto Ql (Bld) 0.1 /100{WBC} 0-0.5 [facility] Platelet mean volume [Entiti c volume] in Blood by Automated countOrdered By: Peter Ahumada on 03-05-2024 Platelet mean volume (Bld) [Entitic vol] 8.7 fL Normal 6.3-10.7 [facility] Comment on above: Performed By: #### A 1C [facility] eA, LIPID, CMP, T4F, TSH3, CBC #### [facility] [address] [place] [address] [place] Platelets [#/volume] in Bloo d by Automated countOrdered By: Peter Ahumada on 03-05-2024 Platelets (Bld) [#/Vol] 333 10*3/uL Normal 150-450 [facility] Comment on above: Performed By: #### A 1C WT eA, LIPID, CMP, T4F, TSH3, CBC #### [facility] [address] Potassium [Moles/volume] in Serum or PlasmaOrdered By: Peter Ahumada on 03-05-2024 Potassium [Moles/Vol] 3.8 mmol/L Normal 3.5-5.1 [facility] Comment on above: Performed By: #### A 1C WT eA, LIPID, CMP, T4F, TSH3, CBC #### [facility] [address] Protein [Mass/volume] in Ser um or PlasmaOrdered By: Peter Ahumada on 03-05-2024 Protein [Mass/Vol] 6.7 g/dL Normal 6.4-8.9 [facility] Comment on above: Performed By: #### A 1C WT eA, LIPID, CMP, T4F, TSH3, CBC #### [facility] [address] Serum globulin measurement b y calculation (mass/volume)Ordered By: Peter Ahumada on 03-05-2024 Globulin (S) [Mass/Vol] 2.7 g/dL [facility] Comment on above: Performed By: #### A 1C WT eA, LIPID, CMP, T4F, TSH3, CBC #### [facility] [address] [place] [address] Serum or plasma albumin/glob ulin mass ratioOrdered By: Peter Ahumada on 03-05-2024 Albumin/Globulin [Mass ratio] 1.5 {ratio} [facility] Comment on above: Performed By: #### A 1C WT eA, LIPID, CMP, T4F, TSH3, CBC #### [facility] [address] [place] [address] Serum or plasma anion gap de terminationOrdered By: Peter Ahumada on 03-05-2024 Anion gap [Moles/Vol] 11.1 mmol/L Normal 6.0-15.0 [facility] Comment on above: Performed By: #### A 1C WT eA, LIPID, CMP, T4F, TSH3, CBC #### [address] Serum or plasma high density lipoprotein (HDL) cholesterol measurementOrdered By: Peter Ahumada on 03-05-2024 Cholesterol in HDL [Mass/Vol] 50 mg/dL Normal 23-92 [facility] Comment on above: HDL CHOL ATP-III CLA SSIFICATION Cardiovascular RiskHDL > or equal to 60 mg/dL LOWHDL < 40 mg/dL HIGH Result Comment: HDL CHOL ATP-III CLASSIFICATION Cardiovascular Risk HDL > or equal to 60 mg/dL LOW HDL < 40 mg/dL HIGH Performed By: #### A 1C WT eA, LIPID, CMP, T4F, TSH3, CBC #### [facility] [address] [place] [address] Serum or plasma total choles terol/high density lipoprotein (HDL) cholesterol mass ratOrdered By: Peter Ahumada on 03-05-2024 Cholesterol.total/Chol esterol in HDL [Mass ratio] 3.3 {ratio} Normal <5.0 [facility] Comment on above: Performed By: #### A 1C WT eA, LIPID, CMP, T4F, TSH3, CBC #### [address] Sodium [Moles/volume] in Ser um or PlasmaOrdered By: Peter Ahumada on 03-05-2024 Sodium [Moles/Vol] 139 mmol/L Normal 136-145 [facility] Comment on above: Performed By: #### A 1C WT eA, LIPID, CMP, T4F, TSH3, CBC #### [address] Thyrotropin [Units/volume] i n Serum or PlasmaOrdered By: Peter Ahumada on 03-05-2024 TSH Qn 0.29 m[IU]/L Low 0.45-5.33 [facility] Comment on above: Result Comment: PERF ORMED BY: [place] [address] PATHOLOGIST [employer] ALVIN VIDES M.D. Performed By: #### A 1C WT eA, LIPID, CMP, T4F, TSH3, CBC #### [address] Thyroxine (T4) free [Mass/vo lume] in Serum or PlasmaOrdered By: Peter Ahumada on 03-05-2024 Free T4 [Mass/Vol] 0.81 ng/dL Normal 0.61-1.12 [facility] Comment on above: Performed By: #### A 1C [facility] eA, LIPID, CMP, T4F, TSH3, CBC #### [facility] [address] [place] [id number] [facility] Triglyceride [Mass/volume] i n Serum or PlasmaOrdered By: Peter Ahumada on 03-05-2024 Triglyceride [Mass/Vol] 202 mg/dL High 0-149 [facility] Comment on above: TRIG ATP III CLASSIF ICATIONTRIG less than 150 mg/dL NormalTRIG 150-199 mg/dL Borderline highTRIG 200-500 mg/dL High TRIG greater than 500 mg/dL Very highStandard traceable to the Center for Disease Conrtrol and Prevention (CDC) test method. Urea nitrogen [Mass/volume] in Serum or PlasmaOrdered By: Peter Ahumada on 03-05-2024 Urea nitrogen [Mass/Vol] 11 mg/dL Normal 7-25 [facility] Comment on above: Performed By: #### A 1C [facility] eA, LIPID, CMP, T4F, TSH3, CBC #### [facility] [address] [place] [id number] [facility] XR elbow RT 2Von 02-13-2024 XR elbow RT 2V [facility] [address] [place] [address] XRay Report Signed Patient: Darling Khanna MR#: [id number] 1872 : 1980 Acct:[id number] Age/Sex: 43 / F ADM Date: 02/13/24 Loc: [facility] Room: Type: [facility] Attending Dr: Chas Meza DO Copies [...] Osmani Stovall M.D.02/13/2024 4:07 PM Dictation Location: [place] [address] Transcribed By: [facility] 02/13/24 1607 Dictated By: Osmani Stovall DO 02/13/24 1607 Signed By: 02/13/24 1607 Normal [facility] HCG ( test) IA.rapi d Ql (U)Ordered By: Rahul Rogers on 01-29-2024 HCG ( test) Ql (U) Negative [facility] HCG,Urineon 01-29-2024 Beta HCG ( test) Ql (U) Negative Normal [facility] Comment on above: Result Comment: PERF ORMED BY: [place] [address] PATHOLOGIST [employer] ALVIN VIDES M.D. Performed By: #### U HCG #### [address] XR elbow RT 2Von 01-14-2024 XR elbow RT 2V [facility] [place] [address] XRay Report Signed Patient: Darling Khanna MR#: [id number] 1872 : 1980 Acct:[id number] Age/Sex: 43 / F ADM Date: 01/14/24 Loc: [facility] Room: Type: [facility] Attending Dr: Chas Meza DO Copies [...] Chetan Ortiz M.D.01/14/2024 3:36 PM Dictation Location: [place] [address] Transcribed By: ADIA 01/14/24 1536 Dictated By: Chetan Ortiz II, MD 01/14/24 1535 Signed By: 01/14/24 1536 Normal [facility] US abdomen limitedon 024 US abdomen limited [facility] [place] [address] [place] [address] Ultrasound Report Signed Patient: Darling Khanna MR#: [id number] 18[birth year] : 1980 Acct:[id number] Age/Sex: 43 / F ADM Date: 12/31/23 Loc: Room: Type: [facility] Attending Dr: Alber Haines DO Ordering [...] Ayleen Zheng M.D.12/31/2023 12:14 PM Dictation Location: [facility] Tech: Nellie Solis Transcribed By: ADIA 12/31/23 1214 Dictated By: Ayleen Zheng MD 12/31/23 1206 Signed By: 12/31/23 1214 Normal [facility] XR knee RT 4V*on 12-28-2023 XR knee RT 4V* [facility] Main [address] [address] XRay Report Signed Patient: Darling Khanna MR#: [id number] 18[birth year] : 1980 Acct:[id number] Age/Sex: 43 / F ADM Date: 12/28/23 Loc: XD Room: Type: [facility] Attending Dr: Peter Ahumada DO Copies to: Peter Ahumada DO Ordering Provider: Peter Ahumada DO Date of Service: 12/28/23 XR/XR elbow RT min 3V*: Suspicion for fracture ([id number]) XR/XR knee RT 4V*: W19.XXXA - Unspecified [...] Osmani Stovall M.D.12/28/2023 9:38 AM Dictation Location: [facility] Transcribed By: [facility] 12/28/23 0938 Dictated By: Osmani Stovall DO 12/28/23 0932 Signed By: 12/28/23 0938 Normal [facility] XR clavicle RT*on 12-17-2023 XR clavicle RT* [facility] Main [address] [address] XRay Report Signed Patient: Darling Khanna MR#: [id number] 1870 : 1980 Acct:[id number] Age/Sex: 43 / F ADM Date: 12/17/23 Loc: ER Room: Type: [facility] ER Attending Dr: Copies to: Igor Rudd MD Ordering Provider: Igor Rudd MD Date of Service: 12/17/23 XR/XR clavicle RT*: Fall ([id number]) XR/XR shoulder RT min 2V*: Fall XR [...] Chetan Ortiz M.D.12/17/2023 9:23 AM Dictation Location: [place] [address] Transcribed By: [facility] 12/17/23922 Dictated By: Chetan Ortiz II, MD 12/17/23918 Signed By: 12/17/23922 Normal [facility] XR forearm RT 2V*on 12-17-19 XR forearm RT 2V* [facility] [place] [address] XRay Report Signed Patient: Darling Khanna MR#: [id number] 18[birth year] : 1980 Acct:[id number] Age/Sex: 43 / F ADM Date: 12/17/23 Loc: ER Room: Type: [facility] ER Attending Dr: Copies to: [...] MD 12/17/23922 Signed By: 12/17/23923 Normal [facility] XR knee LT 2Von 12-17-2023 XR knee LT 2V [facility] [place] [address] [place] [address] XRay Report Signed Patient: Darling Khanna MR#: [id number] 1872 : 1980 Acct:[id number] Age/Sex: 43 / F ADM Date: 12/17/23 Loc: ER Room: Type: [facility] ER Attending Dr: Copies to: [...] MD 12/17/23923 Signed By: 12/17/23924 Normal [facility] Thyrotropin [Units/volume] i n Serum or PlasmaOrdered By: Peter Ahumada on 08-22-2023 TSH Qn 0.15 m[IU]/L 0.45-5.33 [facility] Thyroxine (T4) free [Mass/vo lume] in Serum or PlasmaOrdered By: Peter Ahumada on 08-22-2023 Free T4 [Mass/Vol] 0.97 ng/dL 0.61-1.12 [facility] Alanine aminotransferase [En zymatic activity/volume] in Serum or PlasmaOrdered By: Peter Ahumada on 05-25-2023 ALT [Catalytic activity/Vol] 7 U/L 7-52 [facility] Albumin [Mass/volume] in Ser um or Plasma by Bromocresol green (BCG) dye binding methoOrdered By: Peter Ahumada on 05-25-2023 Albumin BCG dye [Mass/Vol] 3.8 g/dL 3.5-5.7 [facility] Alkaline phosphatase [Enzyma tic activity/volume] in Serum or PlasmaOrdered By: Peter Ahumada on 05-25-2023 ALP [Catalytic activity/Vol] 54 U/L 34-104 [facility] Aspartate aminotransferase [ Enzymatic activity/volume] in Serum or PlasmaOrdered By: Peter Ahumada on 05-25-2023 AST [Catalytic activity/Vol] 17 U/L 13-39 [facility] Basophils Auto (Bld) [#/Vol] Ordered By: Peter Ahumada on 05-25-2023 Basophils (Bld) [#/Vol] 0.1 10*3/uL 0.0-0.2 [facility] Basophils/100 WBC Auto (Bld) Ordered By: Peter Ahumada on 05-25-2023 Basophils/100 WBC (Bld) 1.1 % . [facility] Bilirubin.total [Mass/volume ] in Serum or PlasmaOrdered By: Peter Ahumada on 05-25-2023 Bilirubin [Mass/Vol] 0.3 mg/dL 0.3-1.0 [facility] [facility] Calcium [Mass/volume] in Ser um or PlasmaOrdered By: Peter Ahumada on 05-25-2023 Calcium [Mass/Vol] 8.8 mg/dL 8.6-10.3 [facility] Carbon dioxide, total [Moles /volume] in Serum or PlasmaOrdered By: Peter Ahumada on 05-25-2023 CO2 [Moles/Vol] 29.9 mmol/L 21.0-31.0 [facility] Chloride [Moles/volume] in S renetta or PlasmaOrdered By: Peter Ahumada on 05-25-2023 Chloride [Moles/Vol] 107 mmol/L 98-107 [facility] Cholesterol [Mass/volume] in Serum or PlasmaOrdered By: Peter Ahumada on 05-25-2023 Cholesterol [Mass/Vol] 181 mg/dL 140-200 [facility] Comment on above: Chol less than 200 m g/dl low riskChol 201-239 mg/dl borderline riskChol 240 mg/dl and greater high risk Cholesterol in LDL Calc [Mas s/Vol]Ordered By: Peter Ahumada on 05-25-2023 Cholesterol in LDL [Mass/Vol] 115 mg/dL 0-100 [facility] Comment on above: LDL ATP III CLASSIFI CATIONLDL less than 100 mg/dL OptimalLDL 100-129 mg/dL Near or above optimalLDL 130-159 mg/dL Borderline highLDL 160-189 mg/dL HighLDL greater than 189 mg/dL Very high Cholesterol in VLDL Calc [Ma ss/Vol]Ordered By: Peter Ahumada on 05-25-2023 Cholesterol in VLDL [Mass/Vol] 22 mg/dL [facility] Creatinine [Mass/volume] in Serum or PlasmaOrdered By: Peter Ahumada on 05-25-2023 Creatinine [Mass/Vol] 0.59 mg/dL 0.60-1.20 [facility] Eosinophils Auto (Bld) [#/Vo l]Ordered By: Peter Ahumada on 05-25-2023 Eosinophils (Bld) [#/Vol] 0.1 10*3/uL 0.0-0.45 [facility] Eosinophils/100 WBC Auto (Bl d)Ordered By: Peter Ahumada on 05-25-2023 Eosinophils/100 WBC (Bld) 1.9 % . [facility] Erythrocyte distribution wid th Auto (RBC) [Ratio]Ordered By: Peter Ahumada on 05-25-2023 Erythrocyte distribution width (RBC) [Ratio] 13.7 % 11.9-15.3 [facility] Globulin Calc (S) [Mass/Vol] Ordered By: Peter Ahumada on 05-25-2023 Globulin (S) [Mass/Vol] 2.7 g/dL [facility] Glucose [Mass/volume] in Ser um or PlasmaOrdered By: Peter Ahumada on 05-25-2023 Glucose [Mass/Vol] 87 mg/dL 70-100 [facility] Comment on above: ADA recommended refe rence rangeRandom Glucose Reference Range is dependent on time and content of last meal. Glucose of more than 200 mg/dL in a nonstressed, ambulatory subject supports the diagnosis of Diabetes Mellitus. Glucose mean value [Mass/vol ume] in Blood Estimated from glycated hemoglobinOrdered By: Peter Ahumada on 05-25-2023 Average glucose Estimated from glycated hemoglobin (Bld) [Mass/Vol] 126 mg/dL [facility] Hematocrit Auto (Bld) [Volum e fraction]Ordered By: Peter Ahumada on 05-25-2023 Hematocrit (Bld) [Volume fraction] 36.2 % 34.0-46.4 [facility] Hemoglobin A1c percentageOrd ered By: Peter Ahumada on 05-25-2023 HbA1c (Bld) [Mass fraction] 6.0 % 4.3-5.6 [facility] Comment on above: Increased risk for d iabetes: 5.7 - 6.4diabetes: >6.4glycemic control for adults with diabetes: <7.0 Hemoglobin [Mass/volume] in BloodOrdered By: Peter Ahumada on 05-25-2023 Hemoglobin (Bld) [Mass/Vol] 11.8 g/dL 11.8-15.4 [facility] Leukocytes [#/volume] correc bryan for nucleated erythrocytes in Blood by Automated counOrdered By: Peter Ahumada on 05-25-2023 WBC corrected for nucl RBC Auto (Bld) [#/Vol] 6.1 10*3/uL 3.8-11.6 [facility] Lymphocytes Auto (Bld) [#/Vo l]Ordered By: Peter Ahumada on 05-25-2023 Lymphocytes (Bld) [#/Vol] 2.0 10*3/uL 1.00-4.8 [facility] Lymphocytes/100 WBC Auto (Bl d)Ordered By: Peter Ahumada on 05-25-2023 Lymphocytes/100 WBC (Bld) 32.1 % . [facility] MCH Auto (RBC) [Entitic mass ]Ordered By: Peter Ahumada on 05-25-2023 MCH (RBC) [Entitic mass] 27.3 pg 24.7-34.3 [facility] MCHC Auto (RBC) [Mass/Vol]Or dered By: Peter Ahumada on 05-25-2023 MCHC (RBC) [Mass/Vol] 32.7 g/dL 32.0-35.0 [facility] MCV Auto (RBC) [Entitic vol] Ordered By: Peter Ahumada on 05-25-2023 MCV (RBC) [Entitic vol] 83.5 fL 80-100 [facility] Monocytes Auto (Bld) [#/Vol] Ordered By: Peter Ahumada on 05-25-2023 Monocytes (Bld) [#/Vol] 0.3 10*3/uL 0.0-0.8 [facility] Monocytes/100 WBC Auto (Bld) Ordered By: Peter Ahumada on 05-25-2023 Monocytes/100 WBC (Bld) 5.2 % . [facility] Neutrophils Auto (Bld) [#/Vo l]Ordered By: Peter Ahumada on 05-25-2023 Neutrophils (Bld) [#/Vol] 3.6 10*3/uL 1.8-7.7 [facility] Neutrophils/100 WBC Auto (Bl d)Ordered By: Peter Ahumada on 05-25-2023 Neutrophils/100 WBC (Bld) 59.7 % . [facility] No Panel InformationOrdered By: Peter Ahumada on 05-25-2023 Estimated GFR (CKD-EPI) > 60.0 mL/Min [facility] Creatinine Clearance (Chem N/A [facility] Nucleated erythrocytes [Pres ence] in Blood by Automated countOrdered By: Peter Ahumada on 05-25-2023 Nucleated RBC Auto Ql (Bld) 0.1 /100{WBC} 0-0.5 [facility] Platelet mean volume Auto (B ld) [Entitic vol]Ordered By: Peter Ahumada on 05-25-2023 Platelet mean volume (Bld) [Entitic vol] 8.5 fL 6.3-10.7 [facility] Platelets Auto (Bld) [#/Vol] Ordered By: Peter Ahumada on 05-25-2023 Platelets (Bld) [#/Vol] 364 10*3/uL 150-450 [facility] Potassium [Moles/volume] in Serum or PlasmaOrdered By: Peter Ahumada on 05-25-2023 Potassium [Moles/Vol] 4.0 mmol/L 3.5-5.1 [facility] Protein [Mass/volume] in Ser um or PlasmaOrdered By: Peter Ahumada on 05-25-2023 Protein [Mass/Vol] 6.5 g/dL 6.4-8.9 [facility] RBC Auto (Bld) [#/Vol]Ordere d By: Peter Ahumada on 05-25-2023 RBC (Bld) [#/Vol] 4.34 10*6/uL 3.60-5.00 [facility] Serum or plasma albumin/glob ulin mass ratioOrdered By: Peter Ahumada on 05-25-2023 Albumin/Globulin [Mass ratio] 1.4 {ratio} [facility] Serum or plasma anion gap de terminationOrdered By: Peter Ahumada on 05-25-2023 Anion gap [Moles/Vol] 10.1 mmol/L 6.0-15.0 [facility] Serum or plasma high density lipoprotein (HDL) cholesterol measurementOrdered By: Peter Ahumada on 05-25-2023 Cholesterol in HDL [Mass/Vol] 44 mg/dL 23-92 [facility] Comment on above: HDL CHOL ATP-III CLA SSIFICATION Cardiovascular RiskHDL > or equal to 60 mg/dL LOWHDL < 40 mg/dL HIGH Serum or plasma total choles terol/high density lipoprotein (HDL) cholesterol mass ratOrdered By: Peter Ahumada on 05-25-2023 Cholesterol.total/Chol esterol in HDL [Mass ratio] 4.1 {ratio} <5.0 [facility] Sodium [Moles/volume] in Ser um or PlasmaOrdered By: Peter Ahumada on 05-25-2023 Sodium [Moles/Vol] 143 mmol/L 136-145 [facility] Thyrotropin [Units/volume] i n Serum or PlasmaOrdered By: Peter Ahumada on 05-25-2023 TSH Qn 0.73 m[IU]/L 0.45-5.33 [facility] Thyroxine (T4) free [Mass/vo lume] in Serum or PlasmaOrdered By: Peter Ahumada on 05-25-2023 Free T4 [Mass/Vol] 0.79 ng/dL 0.61-1.12 [facility] Triglyceride [Mass/volume] i n Serum or PlasmaOrdered By: Peter Ahumada on 05-25-2023 Triglyceride [Mass/Vol] 112 mg/dL 0-149 [facility] Comment on above: TRIG ATP III CLASSIF ICATIONTRIG less than 150 mg/dL NormalTRIG 150-199 mg/dL Borderline highTRIG 200-500 mg/dL High TRIG greater than 500 mg/dL Very highStandard traceable to the Center for Disease Conrtrol and Prevention (CDC) test method. Urea nitrogen [Mass/volume] in Serum or PlasmaOrdered By: Peter Ahumada on 05-25-2023 Urea nitrogen [Mass/Vol] 10 mg/dL 7-25 [facility] WBC Auto (Bld) [#/Vol]Ordere d By: Peter Ahumada on 05-25-2023 WBC (Bld) [#/Vol] 6.1 10*3/uL 3.8-11.6 [facility] Thyrotropin [Units/volume] i n Serum or PlasmaOrdered By: Peter Ahumada on 03-19-2023 TSH Qn 2.20 m[IU]/L 0.45-5.33 [facility] Thyroxine (T4) free [Mass/vo lume] in Serum or PlasmaOrdered By: Peter Ahumada on 03-19-2023 Free T4 [Mass/Vol] 0.62 ng/dL 0.61-1.12 [facility] Alanine aminotransferase [En zymatic activity/volume] in Serum or PlasmaOrdered By: Alba Marshall on 11-01-2022 ALT [Catalytic activity/Vol] 7 U/L 7-52 [facility] Albumin [Mass/volume] in Ser um or Plasma by Bromocresol green (BCG) dye binding methoOrdered By: Alba Marshall on 11-01-2022 Albumin BCG dye [Mass/Vol] 3.7 g/dL 3.5-5.7 [facility] Alkaline phosphatase [Enzyma tic activity/volume] in Serum or PlasmaOrdered By: [facility] 11-01-2022 ALP [Catalytic activity/Vol] 47 U/L 34-104 [facility] Aspartate aminotransferase [ Enzymatic activity/volume] in Serum or PlasmaOrdered By: Alba Marshall on 11-01-2022 AST [Catalytic activity/Vol] 12 U/L 13-39 [facility] Automated erythrocytes count in urine sediment (number/area)Ordered By: Alba Marshall on 11-01-2022 RBC Auto (Urine sed) [#/Area] 1-2 [HPF] 0-4 [facility] Comment on above: --- 11/01/22 1049 -- -Ur RBC previously reported as: 1-2 /HPFMicroscopic results may be affected due to low specimen volume. Automated leukocytes count i n urine sediment (number/area)Ordered By: Alba Marshall on 11-01-2022 WBC Auto (Urine sed) [#/Area] 1-2 [HPF] 0-4 [facility] Basophils Auto (Bld) [#/Vol] Ordered By: Albayehuda Marshall on 11-01-2022 Basophils (Bld) [#/Vol] 0.1 10*3/uL 0.0-0.2 [facility] Basophils/100 WBC Auto (Bld) Ordered By: Albayehuda Marshall on 11-01-2022 Basophils/100 WBC (Bld) 0.9 % . [facility] Bilirubin Test strip Ql (U)O rdered By: Alba Marshall on 11-01-2022 Bilirubin Ql (U) Negative Negative [facility] Bilirubin.direct [Mass/volum e] in Serum or PlasmaOrdered By: Alba Ibrahimore on 11-01-2022 Bilirubin.direct [Mass/Vol] 0.10 mg/dL 0.03-0.18 [facility] Bilirubin.total [Mass/volume ] in Serum or PlasmaOrdered By: Alba Marshall on 11-01-2022 Bilirubin [Mass/Vol] 0.3 mg/dL 0.3-1.0 [facility] Calcium [Mass/volume] in Ser um or PlasmaOrdered By: Alba Wrenimore on 11-01-2022 Calcium [Mass/Vol] 8.8 mg/dL 8.6-10.3 [facility] Carbon dioxide, total [Moles /volume] in Serum or PlasmaOrdered By: Alba Marshall on 11-01-2022 CO2 [Moles/Vol] 27.6 mmol/L 21.0-31.0 [facility] Chloride [Moles/volume] in S renetta or PlasmaOrdered By: Alba Marshall on 11-01-2022 Chloride [Moles/Vol] 105 mmol/L 98-107 [facility] Choriogonadotropin.beta subu nit [Units/volume] in Serum or PlasmaOrdered By: Alba Marshall on 11-01-2022 HCG.beta subunit Qn m[IU]/mL [facility] Comment on above: Approximate Approxim ate hCG Gestational Age Range (mIU/ml) (weeks)0.2-1 5-50 1-2 50-500 2-3 100-5,000 3-4 500-10,000 4-5 1,000-50,000 5-6 10,000-100,000 6-8 15,000-200,000 8-12 10,000-100,000 Color Auto (U)Ordered By: Malgorzata Marshall on 11-01-2022 Color (U) Yellow Yellow [facility] Creatinine [Mass/volume] in Serum or PlasmaOrdered By: Alba Marshall on 11-01-2022 Creatinine [Mass/Vol] 0.60 mg/dL 0.60-1.20 [facility] Eosinophils Auto (Bld) [#/Vo l]Ordered By: Alba Marshall on 11-01-2022 Eosinophils (Bld) [#/Vol] 0.2 10*3/uL 0.0-0.45 [facility] Eosinophils/100 WBC Auto (Bl d)Or[facility]: [facility] 11-01-2022 Eosinophils/100 WBC (Bld) 3.0 % . [facility] Erythrocyte distribution wid th Auto (RBC) [Ratio]Ordered By: [facility] on 11-01-2022 Erythrocyte distribution width (RBC) [Ratio] 13.2 % 11.9-15.3 [facility] Globulin Calc (S) [Mass/Vol] Ordered By: [facility] 11-01-[facility]22 Globulin (S) [Mass/Vol] 3.1 g/dL [facility] Glucose [Mass/volume] in Ser um or PlasmaOrdered By: [facility] on 11-01-2022 Glucose [Mass/Vol] 95 mg/dL 70-100 [facility] Comment on above: ADA recommended refe rence rangeRandom Glucose Reference Range is dependent on time and content of last meal. Glucose of more than 200 mg/dL in a nonstressed, ambulatory subject supports the diagnosis of Diabetes Mellitus. Hematocrit Auto (Bld) [Volum e fraction]Ordered By: [facility] on 11-01-2022 Hematocrit (Bld) [Volume fraction] 36.8 % 34.0-46.4 [facility] Hemoglobin [Mass/volume] in BloodOrdered By: Alba Marshall on 11-01-2022 Hemoglobin (Bld) [Mass/Vol] 12.5 g/dL 11.8-15.4 [facility] Ketones Auto test strip (U) [Mass/Vol]Ordered By: [facility]uda [facility] 11-01-2022 Ketones (U) [Mass/Vol] Negative Negative [facility] Laboratory - UrinalysisOrder ed By: Alba Marshall on 11-01-2022 Hyaline casts LM Ql (Urine sed) 0-8 [LPF] 0-8 [facility] Leukocytes [#/volume] correc bryan for nucleated erythrocytes in Blood by Automated counOrdered By: Alba Holgerimore on 11-01-2022 WBC corrected for nucl RBC Auto (Bld) [#/Vol] 7.8 10*3/uL 3.8-11.6 [facility] Lymphocytes Auto (Bld) [#/Vo l]Ordered By: Alba Bullimore on 11-01-2022 Lymphocytes (Bld) [#/Vol] 1.5 10*3/uL 1.00-4.8 [facility] Lymphocytes/100 WBC Auto (Bl d)Ordered By: Alba Bullimore on 11-01-2022 Lymphocytes/100 WBC (Bld) 19.6 % . [facility] MCH Auto (RBC) [Entitic mass ]Ordered By: Alba Wrenimore on 11-01-2022 MCH (RBC) [Entitic mass] 28.3 pg 24.7-34.3 [facility] MCHC Auto (RBC) [Mass/Vol]Or dered By: Alba Bullimore on 11-01-2022 MCHC (RBC) [Mass/Vol] 33.9 g/dL 32.0-35.0 [facility] MCV Auto (RBC) [Entitic vol] Ordered By: Alba Bullimore on 11-01-2022 MCV (RBC) [Entitic vol] 83.3 fL 80-100 [facility] Monocyte distribution width [Entitic volume] in Blood by AutomatedOrdered By: Alba Bullimore on 11-01-2022 Monocyte distribution width Auto (Bld) [Entitic vol] 17.79 % 0.00-20.00 [facility] Monocytes Auto (Bld) [#/Vol] Ordered By: Alba Bullimore on 11-01-2022 Monocytes (Bld) [#/Vol] 0.5 10*3/uL 0.0-0.8 [facility] Monocytes/100 WBC Auto (Bld) Ordered By: Alba Bullimore on 11-01-2022 Monocytes/100 WBC (Bld) 6.9 % . [facility] Neutrophils Auto (Bld) [#/Vo l]Ordered By: Alba Bullimore on 11-01-2022 Neutrophils (Bld) [#/Vol] 5.4 10*3/uL 1.8-7.7 [facility] Neutrophils/100 WBC Auto (Bl d)Ordered By: Alba Holgerimore on 11-01-2022 Neutrophils/100 WBC (Bld) 69.6 % . [facility] Nitrite Test strip Ql (U)Ord ered By: Alba Bullimore on 11-01-2022 Nitrite Ql (U) Negative Negative [facility] No Panel InformationOrdered By: Alba Holgerimore on 11-01-2022 Estimated GFR (CKD-EPI) > 60.0 mL/Min [facility] Creatinine Clearance (Chem 179.12 [facility] Nucleated erythrocytes [Pres ence] in Blood by Automated countOrdered By: Alba Wrenimore on 11-01-2022 Nucleated RBC Auto Ql (Bld) 0.1 /100{WBC} 0-0.5 [facility] Platelet mean volume Auto (B ld) [Entitic vol]Ordered By: Alba Bullimore on 11-01-2022 Platelet mean volume (Bld) [Entitic vol] 7.5 fL 6.3-10.7 [facility] Platelets Auto (Bld) [#/Vol] Ordered By: Alba Bullimore on 11-01-2022 Platelets (Bld) [#/Vol] 278 10*3/uL 150-450 [facility] Potassium [Moles/volume] in Serum or PlasmaOrdered By: Alba Bullimore on 11-01-2022 Potassium [Moles/Vol] 4.3 mmol/L 3.5-5.1 [facility] Protein Auto test strip (U) [Mass/Vol]Ordered By: Alba Holgerimore on 11-01-2022 Protein (U) [Mass/Vol] Negative Negative [facility] Protein [Mass/volume] in Ser um or PlasmaOrdered By: Alba Bullimore on 11-01-2022 Protein [Mass/Vol] 6.8 g/dL 6.4-8.9 [facility] RBC Auto (Bld) [#/Vol]Ordere d By: Alba Bullimore on 11-01-2022 RBC (Bld) [#/Vol] 4.41 10*6/uL 3.60-5.00 [facility] Serum or plasma albumin/glob ulin mass ratioOrdered By: Alba Marshall on 11-01-2022 Albumin/Globulin [Mass ratio] 1.2 {ratio} [facility] Serum or plasma anion gap de terminationOrdered By: Alba Marshall on 11-01-2022 Anion gap [Moles/Vol] 10.7 mmol/L 6.0-15.0 [facility] Serum or plasma non-glucuron idated bilirubin measurement (mass/volume)Ordered By: Alba Marshall on 11-01-2022 Bilirubin.indirect [Mass/Vol] 0.2 mg/dL [facility] Sodium [Moles/volume] in Ser um or PlasmaOrdered By: Alba Marshall on 11-01-2022 Sodium [Moles/Vol] 139 mmol/L 136-145 [facility] Specific gravity Auto test s trip (U) [Rel density]Ordered By: Alba Marshall on 11-01-2022 Specific gravity (U) [Rel density] 1.021 1.001-1.030 [facility] Squamous epithelial cells de tection in urine sediment by light microscopyOrdered By: Alba Marshall on 11-01-2022 Epithelial cells.squamous LM Ql (Urine sed) 3-4 [HPF] 0-2 [facility] Urea nitrogen [Mass/volume] in Serum or PlasmaOrdered By: Alba Marshall on 11-01-2022 Urea nitrogen [Mass/Vol] 7 mg/dL 7-25 [facility] Urine bacteria detection by automated methodOrdered By: Albayehuda Marshall on 11-01-2022 Bacteria Auto Ql (U) 1+ None Seen [facility] Comment on above: --- 11/01/22 1050 -- -Ur Bact previously reported as: 1+ H Microscopic results may be affected due to low specimen volume. Urine clarity by refractomet ry automatedOrdered By: Alba Marshall on 11-01-2022 Clarity Refractometry automated (U) Clear Clear [facility] Urine glucose measurement by automated test strip (mass/volume)Ordered By: Alba Marshall on 11-01-2022 Glucose Auto test strip (U) [Mass/Vol] Normal mg/dL Normal [facility] Urine hemoglobin detection b y automated test stripOrdered By: Alba Marshall on 11-01-2022 Hemoglobin Auto test strip Ql (U) 1+ Negative [facility] Urine leukocyte esterase det ection by automated test stripOrdered By: Alba Marshall on 11-01-2022 Leukocyte esterase Auto test strip Ql (U) Negative Negative [facility] Urobilinogen Auto test strip (U) [Mass/Vol]Ordered By: Alba Marshall on 11-01-2022 Urobilinogen (U) [Mass/Vol] Normal mg/dL Normal [facility] WBC Auto (Bld) [#/Vol]Ordere d By: Alba Marshall on 11-01-2022 WBC (Bld) [#/Vol] 7.8 10*3/uL 3.8-11.6 [facility] Yeast detection in urine sed iment by light microscopyOrdered By: Alba Marshall on 11-01-2022 Yeast LM Ql (Urine sed) None seen [HPF] None Seen [facility] Comment on above: --- 11/01/22 [...] on 11-01-2022 pH (U) 6.5 [pH] 5.0-9.0 [facility] Alanine aminotransferase [En zymatic activity/volume] in Serum or PlasmaOrdered By: Peter Ahumada on 10-31-2022 ALT [Catalytic activity/Vol] 8 U/L 7-52 [facility] Albumin [Mass/volume] in Ser um or Plasma by Bromocresol green (BCG) dye binding methoOrdered By: Peter Ahumada on 10-31-2022 Albumin BCG dye [Mass/Vol] 3.8 g/dL 3.5-5.7 [facility] Alkaline phosphatase [Enzyma tic activity/volume] in Serum or PlasmaOrdered By: Peter Ahumada on 10-31-2022 ALP [Catalytic activity/Vol] 49 U/L 34-104 [facility] Aspartate aminotransferase [ Enzymatic activity/volume] in Serum or PlasmaOrdered By: Peter Ahumada on 10-31-2022 AST [Catalytic activity/Vol] 16 U/L 13-39 [facility] Basophils Auto (Bld) [#/Vol] Ordered By: Peter Ahumada on 10-31-2022 Basophils (Bld) [#/Vol] 0.1 10*3/uL 0.0-0.2 [facility] Basophils/100 WBC Auto (Bld) Ordered By: Peter Ahumada on 10-31-2022 Basophils/100 WBC (Bld) 0.9 % . [facility] Bilirubin.total [Mass/volume ] in Serum or PlasmaOrdered By: Peter Ahumada on 10-31-2022 Bilirubin [Mass/Vol] 0.3 mg/dL 0.3-1.0 [facility] Calcium [Mass/volume] in Ser um or PlasmaOrdered By: Peter Ahumada on 10-31-2022 Calcium [Mass/Vol] 9.0 mg/dL 8.6-10.3 [facility] Carbon dioxide, total [Moles /volume] in Serum or PlasmaOrdered By: Peter Ahumada on 10-31-2022 CO2 [Moles/Vol] 25.8 mmol/L 21.0-31.0 [facility] Chloride [Moles/volume] in S renetta or PlasmaOrdered By: Peter Ahumada on 10-31-2022 Chloride [Moles/Vol] 106 mmol/L 98-107 [facility] Cholesterol [Mass/volume] in Serum or PlasmaOrdered By: Peter Ahumada on 10-31-2022 Cholesterol [Mass/Vol] 152 mg/dL 140-200 [facility] Comment on above: Chol less than 200 m g/dl low riskChol 201-239 mg/dl borderline riskChol 240 mg/dl and greater high risk Cholesterol in LDL Calc [Mas s/Vol]Ordered By: Peter Ahumada on 10-31-2022 Cholesterol in LDL [Mass/Vol] 74 mg/dL 0-100 [facility] Comment on above: LDL ATP III CLASSIFI CATIONLDL less than 100 mg/dL OptimalLDL 100-129 mg/dL Near or above optimalLDL 130-159 mg/dL Borderline highLDL 160-189 mg/dL HighLDL greater than 189 mg/dL Very high Cholesterol in VLDL Calc [Ma ss/Vol]Ordered By: Peter Ahumada on 10-31-2022 Cholesterol in VLDL [Mass/Vol] 25 mg/dL [facility] Creatinine [Mass/volume] in Serum or PlasmaOrdered By: Peter Ahumada on 10-31-2022 Creatinine [Mass/Vol] 0.55 mg/dL 0.60-1.20 [facility] Eosinophils Auto (Bld) [#/Vo l]Ordered By: Peter Ahumada on 10-31-2022 Eosinophils (Bld) [#/Vol] 0.2 10*3/uL 0.0-0.45 [facility] Eosinophils/100 WBC Auto (Bl d)Ordered By: Peter Ahumada on 10-31-2022 Eosinophils/100 WBC (Bld) 2.9 % . [facility] Erythrocyte distribution wid th Auto (RBC) [Ratio]Ordered By: Peter Ahumada on 10-31-2022 Erythrocyte distribution width (RBC) [Ratio] 13.3 % 11.9-15.3 [facility] Globulin Calc (S) [Mass/Vol] Ordered By: Peter Ahumada on 10-31-2022 Globulin (S) [Mass/Vol] 2.8 g/dL [facility] Glucose [Mass/volume] in Ser um or PlasmaOrdered By: Peter Ahumada on 10-31-2022 Glucose [Mass/Vol] 98 mg/dL 70-100 [facility] Comment on above: ADA recommended refe rence rangeRandom Glucose Reference Range is dependent on time and content of last meal. Glucose of more than 200 mg/dL in a nonstressed, ambulatory subject supports the diagnosis of Diabetes Mellitus. Hematocrit Auto (Bld) [Volum e fraction]Ordered By: Peter Ahumada on 10-31-2022 Hematocrit (Bld) [Volume fraction] 37.3 % 34.0-46.4 [facility] Hemoglobin [Mass/volume] in BloodOrdered By: Peter Ahumada on 10-31-2022 Hemoglobin (Bld) [Mass/Vol] 12.4 g/dL 11.8-15.4 [facility] Leukocytes [#/volume] correc bryan for nucleated erythrocytes in Blood by Automated counOrdered By: Peter Ahumada on 10-31-2022 WBC corrected for nucl RBC Auto (Bld) [#/Vol] 8.2 10*3/uL 3.8-11.6 [facility] Lymphocytes Auto (Bld) [#/Vo l]Ordered By: Peter Ahumada on 10-31-2022 Lymphocytes (Bld) [#/Vol] 1.8 10*3/uL 1.00-4.8 [facility] Lymphocytes/100 WBC Auto (Bl d)Ordered By: Peter Ahumada on 10-31-2022 Lymphocytes/100 WBC (Bld) 21.7 % . [facility] MCH Auto (RBC) [Entitic mass ]Ordered By: Peter Ahumada on 10-31-2022 MCH (RBC) [Entitic mass] 28.0 pg 24.7-34.3 [facility] MCHC Auto (RBC) [Mass/Vol]Or dered By: Peter Ahumada on 10-31-2022 MCHC (RBC) [Mass/Vol] 33.3 g/dL 32.0-35.0 [facility] MCV Auto (RBC) [Entitic vol] Ordered By: Peter Ahumada on 10-31-2022 MCV (RBC) [Entitic vol] 84.1 fL 80-100 [facility] Monocytes Auto (Bld) [#/Vol] Ordered By: Peter Ahumada on 10-31-2022 Monocytes (Bld) [#/Vol] 0.5 10*3/uL 0.0-0.8 [facility] Monocytes/100 WBC Auto (Bld) Ordered By: Peter Ahumada on 10-31-2022 Monocytes/100 WBC (Bld) 6.2 % . [facility] Neutrophils Auto (Bld) [#/Vo l]Ordered By: Peter Ahumada on 10-31-2022 Neutrophils (Bld) [#/Vol] 5.6 10*3/uL 1.8-7.7 [facility] Neutrophils/100 WBC Auto (Bl d)Ordered By: Peter Ahumada on 10-31-2022 Neutrophils/100 WBC (Bld) 68.3 % . [facility] No Panel InformationOrdered By: Peter Ahumada on 10-31-2022 Estimated GFR (CKD-EPI) > 60.0 mL/Min [facility] Creatinine Clearance (Chem N/A [facility] Nucleated erythrocytes [Pres ence] in Blood by Automated countOrdered By: Peter Ahumada on 10-31-2022 Nucleated RBC Auto Ql (Bld) 0.1 /100{WBC} 0-0.5 [facility] Platelet mean volume Auto (B ld) [Entitic vol]Ordered By: Peter Ahumada on 10-31-2022 Platelet mean volume (Bld) [Entitic vol] 8.8 fL 6.3-10.7 [facility] Platelets Auto (Bld) [#/Vol] Ordered By: Peter Ahumada on 10-31-2022 Platelets (Bld) [#/Vol] 305 10*3/uL 150-450 [facility] Potassium [Moles/volume] in Serum or PlasmaOrdered By: Peter Ahumada on 10-31-2022 Potassium [Moles/Vol] 4.2 mmol/L 3.5-5.1 [facility] Protein [Mass/volume] in Ser um or PlasmaOrdered By: Peter Ahumada on 10-31-2022 Protein [Mass/Vol] 6.6 g/dL 6.4-8.9 [facility] RBC Auto (Bld) [#/Vol]Ordere d By: Peter Ahumada on 10-31-2022 RBC (Bld) [#/Vol] 4.44 10*6/uL 3.60-5.00 [facility] Serum or plasma albumin/glob ulin mass ratioOrdered By: Peter Ahumada on 10-31-2022 Albumin/Globulin [Mass ratio] 1.4 {ratio} [facility] Serum or plasma anion gap de terminationOrdered By: Peter Ahumada on 10-31-2022 Anion gap [Moles/Vol] 11.4 mmol/L 6.0-15.0 [facility] Serum or plasma high density lipoprotein (HDL) cholesterol measurementOrdered By: Peter Ahumada on 10-31-2022 Cholesterol in HDL [Mass/Vol] 53 mg/dL 35-85 [facility] Comment on above: HDL CHOL ATP-III CLA SSIFICATION Cardiovascular RiskHDL > or equal to 60 mg/dL LOWHDL < 40 mg/dL HIGH Serum or plasma total choles terol/high density lipoprotein (HDL) cholesterol mass ratOrdered By: Peter Ahumada on 10-31-2022 Cholesterol.total/Chol esterol in HDL [Mass ratio] 2.9 {ratio} <5.0 [facility] Sodium [Moles/volume] in Ser um or PlasmaOrdered By: Peter Ahumada on 10-31-2022 Sodium [Moles/Vol] 139 mmol/L 136-145 [facility] Thyrotropin [Units/volume] i n Serum or PlasmaOrdered By: Peter Ahumada on 10-31-2022 TSH Qn 0.61 m[IU]/L 0.45-5.33 [facility] Thyroxine (T4) free [Mass/vo lume] in Serum or PlasmaOrdered By: Peter Ahumada on 10-31-2022 Free T4 [Mass/Vol] 0.76 ng/dL 0.61-1.12 [facility] Triglyceride [Mass/volume] i n Serum or PlasmaOrdered By: Peter Ahumada on 10-31-2022 Triglyceride [Mass/Vol] 125 mg/dL 0-149 [facility] Comment on above: TRIG ATP III CLASSIF ICATIONTRIG less than 150 mg/dL NormalTRIG 150-199 mg/dL Borderline highTRIG 200-500 mg/dL High TRIG greater than 500 mg/dL Very highStandard traceable to the Center for Disease Conrtrol and Prevention (CDC) test method. Urea nitrogen [Mass/volume] in Serum or PlasmaOrdered By: Peter Ahumada on 10-31-2022 Urea nitrogen [Mass/Vol] 6 mg/dL 7-25 [facility] WBC Auto (Bld) [#/Vol]Ordere d By: Peter Ahumada on 10-31-2022 WBC (Bld) [#/Vol] 8.2 10*3/uL 3.8-11.6 [facility] Albumin [Mass/volume] in Ser um or PlasmaOrdered By: Peter Ahumada on 04-19-2022 Albumin [Mass/Vol] 3.2 g/dL 3.2-5.5 [facility] Basophils Auto (Bld) [#/Vol] Ordered By: Peter Ahumada on 04-19-2022 Basophils (Bld) [#/Vol] 0.0 10*3/uL 0.0-0.2 [facility] Basophils/100 WBC Auto (Bld) Ordered By: Peter Ahumada on 04-19-2022 Basophils/100 WBC (Bld) 0.7 % . [facility] Blood hemoglobin measurement (mass/volume)Ordered By: Peter Ahumada on 04-19-2022 Hemoglobin (Bld) [Mass/Vol] 12.3 g/dL 11.8-15.4 [facility] Blood leukocytes automated c ount (number/volume)Ordered By: Peter Ahumada on 04-19-2022 WBC (Bld) [#/Vol] 5.9 10*3/uL 4.5-11.0 [facility] Cholesterol [Mass/volume] in Serum or PlasmaOrdered By: Peter Ahumada on 04-19-2022 Cholesterol [Mass/Vol] 159 mg/dL 140-200 [facility] Comment on above: Chol less than 200 m g/dl low riskChol 201-239 mg/dl borderline riskChol 240 mg/dl and greater high risk Cholesterol in LDL Calc [Mas s/Vol]Ordered By: Peter Ahumada on 04-19-2022 Cholesterol in LDL [Mass/Vol] 84 mg/dL 0-100 [facility] Comment on above: LDL ATP III CLASSIFI CATIONLDL less than 100 mg/dL OptimalLDL 100-129 mg/dL Near or above optimalLDL 130-159 mg/dL Borderline highLDL 160-189 mg/dL HighLDL greater than 189 mg/dL Very high Cholesterol in VLDL Calc [Ma ss/Vol]Ordered By: Peter Ahumada on 04-19-2022 Cholesterol in VLDL [Mass/Vol] 22 mg/dL [facility] Creatinine and Glomerular fi ltration rate.predicted panel (S/P/Bld)Ordered By: Peter Ahumada on 04-19-2022 Creatinine [Mass/Vol] 0.58 mg/dL 0.44-1.03 [facility] Eosinophils Auto (Bld) [#/Vo l]Ordered By: Peter Ahumada on 04-19-2022 Eosinophils (Bld) [#/Vol] 0.1 10*3/uL 0.0-0.45 [facility] Eosinophils/100 WBC Auto (Bl d)Ordered By: Peter Ahumada on 04-19-2022 Eosinophils/100 WBC (Bld) 2.4 % . [facility] Erythrocyte distribution wid th Auto (RBC) [Ratio]Ordered By: Peter Ahumada on 04-19-2022 Erythrocyte distribution width (RBC) [Ratio] 13.4 % 11.9-15.3 [facility] Estimated glomerular filtrat ion rate (GFR) non- AmericanOrdered By: Peter Ahumada on 04-19-2022 GFR/1.73 sq M.predicted among non-blacks MDRD (S/P/Bld) [Vol rate/Area] > 60 mL/Min [facility] Globulin Calc (S) [Mass/Vol] Ordered By: Peter Ahumada on 04-19-2022 Globulin (S) [Mass/Vol] 3.1 g/dL [facility] Hematocrit Auto (Bld) [Volum e fraction]Ordered By: Peter Ahumada on 04-19-2022 Hematocrit (Bld) [Volume fraction] 37.1 % 34.0-46.4 [facility] Laboratory - Hematology and Cell countsOrdered By: Peter Ahumada on 04-19-2022 Nucleated RBC/100 WBC (Bld) [Ratio] 0.1 % 0-0.5 [facility] Lymphocytes Auto (Bld) [#/Vo l]Ordered By: Peter Ahumada on 04-19-2022 Lymphocytes (Bld) [#/Vol] 1.7 10*3/uL 1.00-4.8 [facility] Lymphocytes/100 WBC Auto (Bl d)Ordered By: Peter Ahumada on 04-19-2022 Lymphocytes/100 WBC (Bld) 28.8 % . [facility] MCH Auto (RBC) [Entitic mass ]Ordered By: Peter Ahumada on 04-19-2022 MCH (RBC) [Entitic mass] 27.8 pg 24.7-34.3 [facility] MCHC Auto (RBC) [Mass/Vol]Or dered By: Peter Ahumada on 04-19-2022 MCHC (RBC) [Mass/Vol] 33.2 g/dL 32.0-35.0 [facility] MCV Auto (RBC) [Entitic vol] Ordered By: Peter Ahumada on 04-19-2022 MCV (RBC) [Entitic vol] 83.6 fL 80-100 [facility] Monocytes Auto (Bld) [#/Vol] Ordered By: Peter Ahumada on 04-19-2022 Monocytes (Bld) [#/Vol] 0.4 10*3/uL 0.0-0.8 [facility] Monocytes/100 WBC Auto (Bld) Ordered By: Peter Ahumada on 04-19-2022 Monocytes/100 WBC (Bld) 6.6 % . [facility] Neutrophils Auto (Bld) [#/Vo l]Ordered By: Peter Ahumada on 04-19-2022 Neutrophils (Bld) [#/Vol] 3.6 10*3/uL 1.8-7.7 [facility] Neutrophils/100 WBC Auto (Bl d)Ordered By: Peter Ahumada on 04-19-2022 Neutrophils/100 WBC (Bld) 61.5 % . [facility] No Panel InformationOrdered By: Peter Ahumada on 04-19-2022 Estimated GFR () > 60 mL/Min [facility] Comment on above: GFR estimated refere nce range: According to KDOQI guidelines, <60 ml/min/1.73m2 is sufficient to diagnose a patient with chronic kidney disease. Pharmacy Creatinine Clearance (Chem N/A [facility] Platelet mean volume Auto (B ld) [Entitic vol]Ordered By: Peter Ahumada on 04-19-2022 Platelet mean volume (Bld) [Entitic vol] 8.9 fL 6.3-10.7 [facility] Platelets Auto (Bld) [#/Vol] Ordered By: Peter Ahumada on 04-19-2022 Platelets (Bld) [#/Vol] 319 10*3/uL 150-450 [facility] Protein [Mass/volume] in Ser um or PlasmaOrdered By: Peter Ahumada on 04-19-2022 Protein [Mass/Vol] 6.3 g/dL 6.1-7.9 [facility] RBC Auto (Bld) [#/Vol]Ordere d By: Peter Ahumada on 04-19-2022 RBC (Bld) [#/Vol] 4.43 10*6/uL 3.60-5.00 [facility] Serum or plasma alanine ny otransferase measurement without P-5'-P (enzymatic activiOrdered By: Peter Ahumada on 04-19-2022 ALT No additional P-5'-P [Catalytic activity/Vol] 9 U/L 10-60 [facility] Serum or plasma albumin/glob ulin mass ratioOrdered By: Peter Ahumada on 04-19-2022 Albumin/Globulin [Mass ratio] 1.0 {ratio} [facility] Serum or plasma alkaline deirdre sphatase measurement (enzymatic activity/volume)Ordered By: Peter Ahumada on 04-19-2022 ALP [Catalytic activity/Vol] 41 U/L 32-92 [facility] Serum or plasma anion gap de terminationOrdered By: Peter Ahumada on 04-19-2022 Anion gap [Moles/Vol] 13.9 mmol/L 6.0-15.0 [facility] Serum or plasma aspartate am inotransferase measurement (enzymatic activity/volume)Ordered By: Peter Ahumada on 04-19-2022 AST [Catalytic activity/Vol] 15 U/L 10-42 [facility] Serum or plasma calcium scotty urement (mass/volume)Ordered By: Peter Ahumada on 04-19-2022 Calcium [Mass/Vol] 8.8 mg/dL 8.2-10.2 [facility] Serum or plasma chloride francoise surement (moles/volume)Ordered By: Peter Ahumada on 04-19-2022 Chloride [Moles/Vol] 100 mmol/L 95-114 [facility] Serum or plasma glucose scotty urement (mass/volume)Ordered By: Peter Ahumada on 04-19-2022 Glucose [Mass/Vol] 87 mg/dL 70-100 [facility] Comment on above: ADA recommended refe rence rangeRandom Glucose Reference Range is dependent on time and content of last meal. Glucose of more than 200 mg/dL in a nonstressed, ambulatory subject supports the diagnosis of Diabetes Mellitus. Serum or plasma high density lipoprotein (HDL) cholesterol measurementOrdered By: Peter Ahumada on 04-19-2022 Cholesterol in HDL [Mass/Vol] 53 mg/dL 35-85 [facility] Comment on above: HDL CHOL ATP-III CLA SSIFICATION Cardiovascular RiskHDL > or equal to 60 mg/dL LOWHDL < 40 mg/dL HIGH Serum or plasma potassium me asurement (moles/volume)Ordered By: Peter Ahumada on 04-19-2022 Potassium [Moles/Vol] 3.9 mmol/L 3.5-5.1 [facility] Serum or plasma sodium measu rement (moles/volume)Ordered By: Peter Ahumada on 04-19-2022 Sodium [Moles/Vol] 136 mmol/L 136-146 [facility] Serum or plasma total biliru bin measurement (mass/volume)Ordered By: Peter Ahumada on 04-19-2022 Bilirubin [Mass/Vol] 0.4 mg/dL 0.3-1.2 [facility] Serum or plasma total carbon dioxide measurement (moles/volume)Ordered By: Peter Ahumada on 04-19-2022 CO2 [Moles/Vol] 26.0 mmol/L 22.0-30.0 [facility] Serum or plasma total choles terol/high density lipoprotein (HDL) cholesterol mass ratOrdered By: Peter Ahumada on 04-19-2022 Cholesterol.total/Chol esterol in HDL [Mass ratio] 3.0 {ratio} <5.0 [facility] Serum or plasma urea nitroge n measurement (mass/volume)Ordered By: Peter Ahumada on 04-19-2022 Urea nitrogen [Mass/Vol] 5 mg/dL 9-23 [facility] TSH DL <= 0.005 mIU/L QnOrde red By: Peter Ahumada on 04-19-2022 TSH Qn 1.94 m[IU]/L 0.45-5.33 [facility] Thyroxine (T4) free [Mass/vo lume] in Serum or PlasmaOrdered By: Peter Ahumada on 04-19-2022 Free T4 [Mass/Vol] 0.69 ng/dL 0.61-1.12 [facility] Triglyceride [Mass/volume] i n Serum or PlasmaOrdered By: Peter Ahumada on 04-19-2022 Triglyceride [Mass/Vol] 111 mg/dL 35-149 [facility] Comment on above: TRIG ATP III CLASSIF ICATIONTRIG less than 150 mg/dL NormalTRIG 150-199 mg/dL Borderline highTRIG 200-500 mg/dL High TRIG greater than 500 mg/dL Very highStandard traceable to the Center for Disease Conrtrol and Prevention (CDC) test method. CNOVon 10-13-2021 CNOV Office Visit ([id number] ) -------- DARLING KHANNA ([id number]) 1980 F Date Time Provider Department 10/13/21 1:30 PM KATE DANIEL [id number] During your visit today, we recorded the following information about you: Temperature Pulse Blood pressure Weight 97.7 degrees 68/minute 112/55 115.2 kg Height 1.829 m Kate Daniel MD 10/17/2021 1:50 PM Signed Assessment ESTABLISHED PATIENT Darling Khanna is a 40 year old female with a right posterior liver subcapsular fluid collection ? 03/03/2021: Patient presented to [facility] on 02/08/2021 for 2 days for acute ride sided abdominal/flank pain, right shoulder discomfort and nausea. She was diagnosed with Klebsiella pneumoniae UTI and was discharged with oral keflex and zofran. Patient represented to ER on 02/09/2021 for the continued complaints of pain. ? Referral From:?PCP- Peter Ahumada, DO Reason:?right abdominal pain pain; liver?fluid collection? ? Received Records From:? 02/08/2021 ER Report [facility] 02/09/2021 ER Report [facility] 02/15/2021 PCP Office note ? Visited [...] gradually improving. US of ovaries yesterday at [facility]. Scheduled for upper GI at end of month. Gained?50 pounds since July?(was in [place] for 3 months, drank a lot); diagnosed [...] well. She did spend 3 months in [place] and did not have any issues, hospitalizations [...] which included preparing to see the patient, [id number] patient care and completing clinical documentation. MD Jayne Garrido Ma 10/13/2021 1:33 PM Signed What is the reason for your visit today? Follow up Who is your referring physician? Are you having poor oral intake? NO Have you had unintentional weight loss of 15 lbs/7 Kg in the last 3-6 months? NO Bowels: regular Wound: Temperature: No Drains: No Referring Provider: KATE DANIEL [[id number]] Allergies As of Date: 10/13/2021 Noted Allergy [...] of 05/10 (more content not included)... Normal [facility] Mayela 09-30-2021 [facility] Telephone ([id number]) -------- DARLING KHANNA ([id number]) 1980 F Date Time Provider Department 09/30/21 KATE DANIEL [id number] During your visit today, we recorded the following information about you: Sujatha Tomas 09/30/2021 9:00 AM Signed Called patient to reschedule her 10/13 in person to virtual. She would like to keep in person. She also wants to know if a CT or MRI can be ordered of her pancreas abdomen as she hasn't had anything done recently. She can be reached at [phone]. Talat Armendariz RN 10/10/2021 11:29 AM Signed [...] Status:Closed by TALAT ARMENDARIZ RN on 10/10/21 [facility] CNOVon 04-07-2021 CNOV Office Visit ([id number] ) -------- DARLING KHANNA ([id number]) 1980 F Date Time Provider Department 04/07/21 2:30 PM KATE DANIEL [id number] During your visit today, we recorded the [...] subcapsular fluid collection 03/03/2021: Patient presented to [facility] on 02/08/2021 for 2 days for acute ride sided abdominal/flank pain, right shoulder discomfort and nausea. She was diagnosed with Klebsiella pneumoniae UTI and was discharged with oral keflex and zofran. Patient represented to ER on 02/09/2021 for the continued complaints of pain. ? Referral From:?PCP- Pteer Ahumada, DO Reason:?right abdominal pain pain; liver?fluid collection? ? Received Records From:? 02/08/2021 ER Report [facility] 02/09/2021 ER Report [facility] 02/15/2021 PCP Office note ? Visited [...] gradually improving. US of ovaries yesterday at [facility]. Scheduled for upper GI at end of month. Gained 50 pounds since July (was in [place] for 3 months, drank a lot); diagnosed [...] which included preparing to see the patient, [id number] patient care and completing clinical documentation. Kate Daniel MD Referring Provider: KATE DANIEL [[id number]] Allergies As of Date: 04/07/2021 Noted Allergy [...] Temperature: No (more content not included)... Normal [facility] CNTRTMon 03-22-2021 CNTRTM Treatment Team (ANSHUL VILLAFUERTE) -------- DARLING KHANNA ([id number]) 1980 F Date Time Provider Department 03/22/21 [...] findings to suggest etiology Pre-conference plan (from [employer]): - Observation and serial imaging Imaging Review: [...] Status:Closed by WILLIAM DE LEÓN on 03/23/21 [facility] CNOVpierce 03-03-2021 CNOV Office Visit ([id number] ) -------- DARLING KHANNA ([id number]) 1980 F Date Time Provider Department 03/03/21 10:00 AM KATE DANIEL [id number] During your visit today, we recorded the [...] 40 year old female Patient presented to [facility] on 02/08/2021 for 2 days for [...] ? Received Records From: 02/08/2021 ER Report [facility] 02/09/2021 ER Report [facility] 02/15/2021 PCP Office note Visited ER [...] gradually improving. US of ovaries yesterday at [facility]. Scheduled for upper GI at end of month. Gained 50 pounds since July (was in [place] for 3 months, drank a lot); diagnosed [...] was malignant. Seen by Dr. Haines on [facility], in [facility]; denies chemotherapy or radiation. Hernia repair Social [...] cm (6') (more content not included)... Normal [facility] CNPNon 02-23-2021 CNPN Telephone ([facility]) -------- DARLING KHANNA ([id number]) 1980 F Date Time Provider Department 02/23/21 KATE DANIEL [facility] During your visit today, we recorded the following information about you: Talat Armendariz RN 02/23/2021 10:02 AM Addendum Hepatobiliary Surgery Consult HPI: Patient presented to [facility] on 02/08/2021 for 2 days for [...] collection Received Records From: 02/08/2021 ER Report [facility] 02/09/2021 ER Report [facility] 02/15/2021 PCP Office note Records Review BMI 33 Current OCP Imagin02/08/2021 CT A/P wo IVCON (Report [facility]- report rec'd) - minor basilar atelectasis or scarring - nonspecific lymph nodes - tiny umbilical hernia containing fat - no intra hepatic masses are noted - no bowel or urinary tract obstructions - no acute findings 02/08/2021 Ultrasound RUQ (Report [facility]- report rec'd) - unremarkable - no evidence of gallstones, gallbladder wall thickening, or ductal dilation 02/15/2021 CT A/P w IVCON (Report [facility]- report rec'd) - no acute abdominal or pelvis abnormality - indeterminate liver lesion: ill defined low attenuation lesion measuring at least 2.5cm in the medial segment of the left lobe of the liver posteriorly 02/17/2021 MRI Abdomen w/wo IVCON (Report [facility]- report rec'd) - unremarkable size of [...] months 02/22/2021 CT A/P w IVCON (Report [facility]- report rec'd) - 62mm x [...] 8:26 AM Signed Patient's records scanned into [facility] and imaging downloaded from [facility], please review. Tatyana Kilgore Pss 02/25/2021 9:53 AM Signed Scheduled patient for new consult on 03/03/2021. 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 [3602] Consult [173] Prescriptions as [...] Status:Closed by TATYANA PEDRO on 02/25/21 Normal [facility] AMYLASEon 02-22-2021 Amylase [Catalytic activity/Vol] 48 U/L Normal 31-110 [facility] Comment on above: Performed By: #### L IPA, CMP, SHAI #### [facility] [address], [place] [address] Ruy Ayleen CBC AUTO DIFFon 02-22-2021 BASO # 0.1 103/ul Normal 0.0-0.1 [facility] Comment on above: Performed By: #### C BC #### [facility] [address], [place] [address] Ruy Ayleen Basophils/100 WBC (Bld) 0.7 % Normal 0.2-2.0 [facility] Comment on above: Performed By: #### C BC #### [facility] [address], [place] [address] Ruy Ayleen EO # 0.1 103/ul Normal 0.0-0.7 [facility] Comment on above: Performed By: #### C BC #### [facility] [address], [place] [address] Ruy Ayleen Eosinophils/100 WBC (Bld) 1.2 % Normal 0.9-7.0 [facility] Comment on above: Performed By: #### C BC #### [facility] [address] [place] [id number] Ruy Ayleen Erythrocyte distribution width (RBC) [Ratio] 12.6 % Normal 11.0-15.0 [facility] Comment on above: Performed By: #### C BC #### [facility] [address] [place], [place] [id number] Ruy Ayleen Hematocrit (Bld) [Volume fraction] 38.7 % Normal 36.0-48.0 [facility] Comment on above: Performed By: #### C BC #### [facility] [address] [place], [place] [id number] Ruy Ayleen Hemoglobin (Bld) [Mass/Vol] 12.6 g/dL Normal 12.0-16.0 [facility] Comment on above: Performed By: #### C BC #### [facility] [address] [place] [address] Ruy Ayleen IG # 0.02 10e3/ul Normal 0.00-0.03 [facility] Comment on above: Performed By: #### C BC #### [facility] [address] [place] [address] Ruy Ayleen IG % 0.2 % Normal 0.0-0.5 [facility] Comment on above: Performed By: #### C BC #### [facility] [address] [place] [address] Ruy Alyeen LYMPH # 2.4 103/ul Normal 1.2-3.8 [facility] Comment on above: Performed By: #### C BC #### [facility] [address] [place], [place] [id number] Ruyradhames Abbasi Lymphocytes/100 WBC (Bld) 22.4 % Normal 20.5-60.0 [facility] Comment on above: Performed By: #### C BC #### [facility] [address] [place], [place] [id number] Ruyradhames Cardozoen MANUAL DIFF REQ NO Normal [facility] Comment on above: Performed By: #### C BC #### [facility] [address] [place], [place] [id number] Ruy Ayleen MCH (RBC) [Entitic mass] 27.7 pg Normal 26.7-34.0 [facility] Comment on above: Performed By: #### C BC #### [facility] [address] [place], [place] [id number] Ruy Ayleen MCHC (RBC) [Mass/Vol] 32.6 g/dL Normal 29.9-35.2 [facility] Comment on above: Performed By: #### C BC #### [facility] [address] [place], [place] [id number] Ruy Abbasi MCV (RBC) [Entitic vol] 85.1 fL Normal 81.0-99.0 [facility] Comment on above: Performed By: #### C BC #### [facility] [address] [place], [place] [id number] Ruy Abbasi MONO # 0.7 103/ul Normal 0.3-0.8 [facility] Comment on above: Performed By: #### C BC #### [facility] [address] [place], [place] [id number] Ruy Abbasi Monocytes/100 WBC (Bld) 6.5 % Normal 1.7-12.0 [facility] Comment on above: Performed By: #### C BC #### [facility] [address] [place] [address] Ruy Cardozoen NEUT # 7.3 103/ul Critically high 1.4-6.5 [facility] Comment on above: Performed By: #### C BC #### [facility] [address] [place], [place] [id number] Ruy Abbasi Neutrophils/100 WBC (Bld) 69.0 % Normal 43.0-75.0 [facility] Comment on above: Performed By: #### C BC #### [facility] [address] [place], [place] [id number] Ruy Abbasi Platelet mean volume (Bld) [Entitic vol] 9.3 fL Critically low 9.5-13.5 [facility] Comment on above: Performed By: #### C BC #### [facility] [address] [place], [place] [id number] Ruy Ayleen PLT 324 103/ul Normal 150-450 [facility] Comment on above: Performed By: #### C BC #### [facility] [address] [place], [place] [id number] Ruy Ayleen RBC 4.55 106/ul Normal 4.20-5.40 [facility] Comment on above: Performed By: #### C BC #### [facility] [address] [place], [place] [address] Ruy Abbasi WBC 10.6 103/ul Normal 4.0-11.0 [facility] Comment on above: Performed By: #### C BC #### [facility] [address] [place], [place] [address] ABD/PELV W CONon 02-23-20 [...] MARINA HERNANDEZ Date: 2021-02-22 03:10 Normal [facility] D-DIMERon 02-22-2021 D-DIMER 0.40 mg/L FEU Normal 0.19-0.50 [facility] Comment on above: Performed By: #### D DIM #### [facility] [address] [place] [id number] Ruy Abbasi D-DIMER COMMENTS SEE BELOW Normal The [facility] Comment on above: Result Comment: Incr [...] hospitalization. Performed By: #### D DIM #### [facility] [address] [place] [address] Ruy Ayleen LIPASEon 02-22-2021 Lipase [Catalytic activity/Vol] 120.0 U/L Normal 23.0-300.0 [facility] Comment on above: Performed By: #### L IPA CMP, SHAI #### [facility] [address] [place] [address] Ruy Abbasi MONOon 02-22-2021 Monocytes (Bld) [#/Vol] Negative Normal NEGATIVE [facility] Comment on above: Performed By: #### M IGOR #### [facility] [address] [place] [address] Ruy Ayleen OT-CT ABD/PELVIS W CON IMPOR Ton 02-22-2021 OT-CT ABD/PELVIS W CON IMPORT Images were obtained outside of [facility] [id number] Normal [facility] OT-CT ABD/PELVIS W CON IMPORT Images were obtained outside of [facility] [id number] Normal [facility] PREG HCG QUALon 02-22-2021 , QUAL Negative Normal NEGATIVE The [facility] Comment on above: Performed By: #### P REG #### [facility] [address] [place], [place] [id number] Ruy Abbasi PROF 14(COMP METB)on 021 Albumin [Mass/Vol] 3.2 g/dL Critically low 3.5-5.0 Th e [facility] Comment on above: Performed By: #### L IPA, CMP, SHAI #### [facility] [address] [place] [address] Ruy Ayleen Albumin/Globulin [Mass ratio] 0.7 {ratio} Normal [facility] Comment on above: Performed By: #### L IPA, CMP, SHAI #### [facility] [address] [place] [address] Ruy Ayleen ALP [Catalytic activity/Vol] 54 U/L Normal 38-126 [facility] Comment on above: Performed By: #### L IPA, CMP, SHAI #### [facility] [address] [place] [address] Ruy Ayleen ALT [Catalytic activity/Vol] 11 U/L Normal 9-52 [facility] Comment on above: Performed By: #### L IPA, CMP, SHAI #### [facility] [address] [address] Ruy Ayleen Anion gap [Moles/Vol] 11.6 mmol/L Normal [facility] Comment on above: Performed By: #### L IPA, CMP, SHAI #### [facility] [address] [place] [address] Ruy Ayleen AST [Catalytic activity/Vol] 12 U/L Critically low 14-36 [facility] Comment on above: Performed By: #### L IPA, CMP, SHAI #### [facility] [address] [place] [address] Ruy Ayleen Bilirubin [Mass/Vol] 0.2 mg/dL Normal 0.2-1.3 [facility] Comment on above: Performed By: #### L IPA, CMP, SHAI #### [facility] [address] [place] [address] Ruy Ayleen Calcium [Mass/Vol] 9.2 mg/dL Normal 8.4-10.2 [facility] Comment on above: Performed By: #### L IPA, CMP, SHAI #### [facility] [address] [place] [address] Ruy Ayleen Chloride [Moles/Vol] 104 mmol/L Normal 98-107 [facility] Comment on above: Performed By: #### L IPA, CMP, SHAI #### [facility] [address] [place] [address] Ruy Ayleen CO2 [Moles/Vol] 29.7 mmol/L Normal 22.0-30.0 [facility] Comment on above: Performed By: #### L BRETT CMP, SHAI #### [facility] [address] [address] Ruy Ayleen Creatinine [Mass/Vol] 0.74 mg/dL Normal 0.52-1.04 [facility] Comment on above: Performed By: #### L IPA CMP, SHAI #### [facility] [address] [place] [address] Ruy Ayleen EGFR-AF BERMUDIAN >60 Normal >=60 [facility] Comment on above: Performed By: #### L BRETT CMP, SHAI #### [facility] [address] [place] [address] Ruy Ayleen EGFR-NON AF BERMUDIAN >60 Normal >=60 [facility] Comment on above: Performed By: #### L BRETT CMP, SHAI #### [facility] [address] [place] [address] Ruy Ayleen Globulin (S) [Mass/Vol] 4.4 g/dL Normal [facility] Comment on above: Performed By: #### L BRETT CMP, SHAI #### [facility] [address] [place] [address] Ruy Ayleen Glucose [Mass/Vol] 104 mg/dL Normal 74-106 The [facility] Comment on above: Performed By: #### L IPA CMP, SHAI #### [facility] [address] [place] [address] Ruy Ayleen Potassium [Moles/Vol] 4.3 mmol/L Normal 3.4-5.0 [facility] Comment on above: Performed By: #### L IPA CMP, SHAI #### [facility] [address] [place] [address] Ruy Ayleen Protein [Mass/Vol] 7.6 g/dL Normal 6.1-8.2 The [facility] Comment on above: Performed By: #### L IPA CMP, SHAI #### [facility] [address] [place] [address] Ruy Abbasi Sodium [Moles/Vol] 141 mmol/L Normal 137-145 [facility] Comment on above: Performed By: #### L KARLI WEST, SHAI #### [facility] [address] [place] [address] Ruy Abbasi Urea nitrogen [Mass/Vol] 9.0 mg/dL Normal 7.0-17.0 [facility] Comment on above: Performed By: #### L KARLI WEST, SHAI #### [facility] [address] [place] [address] Ruy Abbasi Urea nitrogen/Creatinine [Mass ratio] 12.2 mg/mg Normal [facility] Comment on above: Performed By: #### L KARLI WEST, SHAI #### [facility] [address] [place] [address] Ruy Abbasi MR-MR abdomen wo/w con IMPOR Ton 02-16-2021 MR-MR abdomen wo/w con IMPORT Images were obtained outside of [facility] [id number] Normal [facility] CT-CT abdomen pelvis w con I MPORTon 02-15-2021 CT-CT abdomen pelvis w con IMPORT Images were obtained outside of [facility] [id number] Normal [facility] CT-CT abdomen pelvis wo con IMPORTon 02-08-2021 CT-CT abdomen pelvis wo con IMPORT Images were obtained outside of [facility] [id number] Normal [facility] US-US gall bladder IMPORTon 02-08-2021 US-US gall bladder IMPORT Images were obtained outside of [facility] [id number] Normal [facility] CNOVon 12-28-2020 CNOV Office Visit (LOORRM ) -------- DARLING KHANNA ([id number]) 1980 F Date Time Provider Department 12/28/20 3:30 PM CAST TECH YANIRA MARCANO During your visit today, we recorded the following information about you: Tracey Hair Ma 12/28/2020 4:25 PM Signed Dispensed XL/XXL Reaction brace for the Right knee. Dispensed by [employer]. Instructions were given on application/adjustments. She will f/u as scheduled/prn. Tracey Hair MA,ROT Referring Provider: ISHAN YUSUF [[id number]] Allergies As of Date: 12/28/2020 Noted Allergy [...] Status:Closed by TRACEY HAIR MA on 12/28/20 [facility] CNOV Office Visit (LOORRM ) -------- DARLING KHANNA ([id number]) 1980 F Date Time Provider Department 12/28/20 [...] Status:Closed by ISHAN YUSUF on 12/28/20 Normal [facility] CNOVon 11-30-2020 CNOV Office Visit (LOORRM ) -------- DARLING KHANNA ([id number]) 1980 F Date Time Provider Department 11/30/20 3:30 PM ISHAN YUSUF LOORRSilva During your visit today, we recorded the [...] results and radiologist's interpretation, available in the [facility] health record. Images were reviewed with the patient/family members in the office today. My personal interpretation of the performed imaging is healing proximal phalanx fracture CLINICAL IMPRESSION / ASSESSMENT: (S63.499F) Closed nondisplaced fracture of proximal phalanx of [...] finger with routine healing, subsequent encounter [S62.647D] Order(s):XR HAND GENERAL 3V PA/LAT/OBL LT [[id number]] Order #: [id number] FUTURE CONSULT TO EQUIPMENT SERVICES ASSOCIATE [[id number]] Order #: [id number]: 1 FUTURE Prescriptions as of 11/30/2020 Sig: [...] Status:Closed by ISHAN YUSUF on 11/30/20 Normal [facility] XR HAND 3V PA/LAT/OBL LTon 0 [...] fractures. IMPRESSION: Healing 5th proximal phalanx fracture Gate Keeper: PSCB Transcribe Date/Time: Nov 30 2020 4:18P Dictated by : JUDITH FUENTES MD This examination was interpreted and the report reviewed and electronically signed by: JUDITH FUENTES MD on Nov 30 2020 4:19PM EST [id number] Normal [facility] XR Hand - left PA and Latera l and Obliqueon 11-30-2020 IMPRESSION: Healing 5th proximal phalanx fracture Gate Keeper: PSCMaribeth Transcribe Date/Time: Nov 30 2020 4:18P Dictated by : JUDITH FUENTES MD This examination was interpreted and the report reviewed and electronically signed by: JUDITH FUENTES MD on Nov 30 2020 4:19PM [facility] DIVISION OF RADIOLOGY * * [...] No additional fractures. DIVISION OF RADIOLOGY Provider, [facility] - 11/30/2020 * * *Final Report* * [...] IMPRESSION IMPRESSION: Healing 5th proximal phalanx fracture Gate Keeper: [facility] Transcribe Date/Time: Nov 30 2020 4:18P Dictated by : JUDITH FUENTES MD This examination was interpreted and the report reviewed and electronically signed by: JUDITH FUENTES MD on Nov 30 2020 4:19PM EST [facility] Radiology Study observation (narrative) [facility] XR Hand - left PA and Latera l and ObliqueOrdered By: Ccf Provider on 11-30-2020 [facility] CNOVon 11-18-2020 CNOV Office Visit (LOORRM ) -------- DARLING KHANNA ([id number]) 1980 F Date Time Provider Department 11/18/20 [...] results and radiologist's interpretation, available in the [facility] health record. Images were reviewed with the patient/family members in the office today. My personal interpretation of the performed imaging is intra-articular proximal phalanx fracture CLINICAL IMPRESSION / ASSESSMENT: (M11.761D) Closed nondisplaced fracture of proximal phalanx of left little finger, initial encounter (primary encounter diagnosis) PLAN: Placed her in aluminum splint Will discuss case with Dr. [place] due to some progression of depression Follow-up accordingly Procedures Ishan Ysuuf DO Referring Provider: SELF [[id number]] Allergies As of Date: 11/18/2020 Noted Allergy Reaction INDOMETHACIN 05/10/2018 7 - Swelling Date Reviewed: 11/18/2020 Reviewed by: William Figueroa Ma - Fully Assessed Reason for Visit: Pain [78] Primary Visit Diagnosis:Closed nondisplaced fracture of proximal phalanx of left little finger, initial encounter [S62.647A] Order(s):XR HAND GENERAL 3V PA/LAT/OBL LT [[id number]] Order #: [id number] FUTURE Prescriptions as of 11/18/2020 Sig: OMEPRAZOLE [...] Status:Closed by ISHAN YUSUF on 11/18/20 Normal [facility] XR HAND 3V PA/LAT/OBL LTon 0 [...] unchanged. IMPRESSION: Healing fifth proximal phalanx fracture. Gate Keeper: PSCB Transcribe Date/Time: Nov 18 2020 8:15P Dictated by : ADRIANE CAMPOS MD This examination was interpreted and the report reviewed and electronically signed by: ADRIANE CAMPOS MD on Nov 18 2020 8:27PM EST [id number] Normal [facility] XR Hand - left PA and Latera l and Obliqueon 11-18-2020 IMPRESSION: Healing fifth proximal phalanx fracture. Gate Keeper: PSCB Transcribe Date/Time: Nov 18 2020 8:15P [...] IMPRESSION IMPRESSION: Healing fifth proximal phalanx fracture. Gate Keeper: PSCB Transcribe Date/Time: Nov 18 2020 8:15P Dictated by : ADRIANE CAMPOS MD This examination was interpreted and the report reviewed and electronically signed by: ADRIANE CAMPOS MD on Nov 18 2020 8:27PM EST [facility] Radiology Study observation (narrative) [facility] XR Hand - left PA and Latera l and ObliqueOrdered By: Ccf Provider on 11-18-2020 [facility] CNOVon 11-04-2020 CNOV Office Visit (ORAVON ) -------- DARLING KHANNA ([id number]) 1980 F Date Time Provider Department 11/04/20 2:00 PM BOB MILLAN During your visit today, we recorded the following information about you: Bob Millan DO 11/04/2020 2:[address] [facility] Office Visit Documentation Note [facility] Sports Medicine Orthopaedic and Rheumatologic [place] REASON FOR VISIT / CHIEF COMPLAINT SERVICE [...] results and radiologist's interpretation, available in the [facility] health record. Images were reviewed with the patient/family members in the office today. My personal interpretation of the performed imaging is Has IA prox phalanx fracture at PIP ASSESSMENT / PLAN CLINICAL IMPRESSION / ASSESSMENT: (Y10.476G) Closed nondisplaced fracture of proximal phalanx of [...] plan as detailed above. Bob Millan D.O. [facility] [place] Team Physician, [facility] Consulting Physician, [place] [facility] Dayan Landeros, [place] Tr[employer] [phone] Patient verbalizes understanding and agrees with the treatment plan as detailed above. Referring Provider: SELF [200] Allergies As of Date: 11/04/2020 Noted Allergy Reaction INDOMETHACIN 05/10/2018 7 - Swelling Date Reviewed: 11/04/2020 Reviewed by: Juaquin Farmer - Fully Assessed Reason for Visit: New [[id number]] Primary Visit Diagnosis:Closed nondisplaced fracture of proximal [...] for Dr. Yusuf or Shayla Silva in [place]. Follow-up and Disposition History Recorded Encounter Status:Closed by BOB MILLAN DO on 11/04/20 Normal [facility] DX-XR HAND COMPLETE LEFT IMP [facility] 10-30-2020 DX-XR HAND COMPLETE LEFT IMPORT Images were obtained outside of [facility] [id number] Normal [facility] Vital Signs Date Time Vital Sign Value Performing Clinician Facility 09-10-2024 15:25-0500 Body height 182.9 cm [employer] Work Phone: [facility] 09-10-2024 15:25-0500 Body mass index (BMI) [Ratio] 27.8 kg/m2 [employer] DO Work Phone: [facility] 09-10-2024 15:25-0500 Body weight 92.99 kg [employer] Work Phone: [facility] 09-10-2024 15:25-0500 Diastolic blood pressure 70 mm[Hg] [employer] Work Phone: [facility] 09-10-2024 15:25-0500 Systolic blood pressure 120 mm[Hg] Alber Haines DO Work Phone: [facility] 09-09-2024 14:37-0500 Body height 182.88 cm Peter Acshira DO Work Phone: [facility] 09-09-2024 14:37-0500 Body mass index (BMI) [Ratio] 27.9 kg/m2 Peter Shens DO Work Phone: [facility] 09-09-2024 14:37-0500 Body weight 93.44 kg Peter Shens DO Work Phone: [facility] 09-09-2024 14:37-0500 Diastolic blood pressure 70 mm[Hg] Peter Shens DO Work Phone: [facility] 09-09-2024 14:37-0500 Heart rate 74 /min Peter Shens DO Work Phone: [facility] 09-09-2024 14:37-0500 SaO2% (BldA) [Mass fraction] 95 % Peter Shens DO Work Phone: [facility] 09-09-2024 14:37-0500 Systolic blood pressure 126 mm[Hg] Peter Shens DO Work Phone: [facility] 06-10-2024 15:00-0500 Body height 182.88 cm Peter Ahumada DO Work Phone: [facility] 06-10-2024 15:00-0500 Body mass index (BMI) [Ratio] 32.3 kg/m2 Peter Shens DO Work Phone: [facility] 06-10-2024 15:00-0500 Body weight 107.95 kg Peter Shens DO Work Phone: [facility] 06-10-2024 15:00-0500 Diastolic blood pressure 60 mm[Hg] Peter Shens DO Work Phone: [facility] 06-10-2024 15:00-0500 Heart rate 75 /min Peter Kuns DO Work Phone: [facility] 06-10-2024 15:00-0500 Respiratory rate 16 /min Peter Kuns DO Work Phone: [facility] 06-10-2024 15:00-0500 SaO2% (BldA) [Mass fraction] 96 % Peter Kuns DO Work Phone: [facility] 06-10-2024 15:00-0500 Systolic blood pressure 98 mm[Hg] Peter Kuns DO Work Phone: [facility] 03-06-2024 14:27-0400 Body height 182.88 cm DO Peter Kuns Work Phone: [facility] 03-06-2024 14:27-0400 Body mass index (BMI) [Ratio] 36.4 kg/m2 DO Peter Kuns Work Phone: [facility] 03-06-2024 14:27-0400 Body weight 122.01 kg DO Peter Kuns Work Phone: [facility] 03-06-2024 14:27-0400 Diastolic blood pressure 72 mm[Hg] DO Peter Kuns Work Phone: [facility] 03-06-2024 14:27-0400 Heart rate 77 /min DO Peter Kuns Work Phone: [facility] 03-06-2024 14:27-0400 Respiratory rate 16 /min DO Peter Kuns Work Phone: [facility] 03-06-2024 14:27-0400 SaO2% (BldA) [Mass fraction] 96 % DO Peter Kuns Work Phone: [facility] 03-06-2024 14:27-0400 Systolic blood pressure 118 mm[Hg] DO Peter Kuns Work Phone: [facility] 01-29-2024 14:05-0400 Diastolic blood pressure 78 mm[Hg] DO Peter Ahumada Work Phone: [facility] 01-29-2024 14:05-0400 Heart rate 91 /min DO Peter Ahumada Work Phone: [facility] 01-29-2024 14:05-0400 Respiratory rate 16 /min DO Peter Ahumada Work Phone: [facility] 01-29-2024 14:05-0400 SaO2% (BldA) [Mass fraction] 94 % DO Peter Ahumada Work Phone: [facility] 01-29-2024 14:05-0400 Systolic blood pressure 124 mm[Hg] DO Peter Ahumada Work Phone: [facility] 01-29-2024 13:05-0400 Body temperature 97 [degF] DO Peter Ahumada Work Phone: [facility] 01-29-2024 12:42-0400 Inhaled oxygen flow rate 8 L/min DO Peter Ahumada Work Phone: [facility] 01-29-2024 11:44-0400 Body height 182.88 cm DO Peter Ahumada Work Phone: [facility] 01-29-2024 11:44-0400 Body mass index (BMI) [Ratio] 36.5 kg/m2 DO Peter Shens Work Phone: [facility] 01-29-2024 11:44-0400 Body weight 122.2 kg DO Peter Shens Work Phone: [facility] 12-31-2023 07:25-0400 Body height 2194.56 cm DO Peterluiza Shens Work Phone: [facility] 12-31-2023 07:25-0400 Body mass index (BMI) [Ratio] 0.2 kg/m2 DO Peter Acs Work Phone: [facility] 12-31-2023 07:25-0400 Body weight 122.46 kg DO Peter Kuns Work Phone: [facility] 12-31-2023 07:25-0400 Diastolic blood pressure 80 mm[Hg] DO Peter Kuns Work Phone: [facility] 12-31-2023 07:25-0400 Heart rate 65 /min DO Peter Kuns Work Phone: [facility] 12-31-2023 07:25-0400 Respiratory rate 16 /min DO Peter Kuns Work Phone: [facility] 12-31-2023 07:25-0400 SaO2% (BldA) [Mass fraction] 97 % DO Peter Kuns Work Phone: [facility] 12-31-2023 07:25-0400 Systolic blood pressure 118 mm[Hg] DO Peter Kuns Work Phone: [facility] 12-27-2023 14:20-0400 Body height 182.88 cm DO Peter Kuns Work Phone: [facility] 12-27-2023 14:20-0400 Body mass index (BMI) [Ratio] 37.3 kg/m2 DO Peter Kuns Work Phone: [facility] 12-27-2023 14:20-0400 Body weight 124.73 kg DO Peter Kuns Work Phone: [facility] 12-27-2023 14:20-0400 Diastolic blood pressure 70 mm[Hg] DO Peter Kuns Work Phone: [facility] 12-27-2023 14:20-0400 Heart rate 86 /min DO Peter Kuns Work Phone: [facility] 12-27-2023 14:20-0400 Respiratory rate 16 /min DO Peter Kuns Work Phone: [facility] 12-27-2023 14:20-0400 SaO2% (BldA) [Mass fraction] 96 % DO Peter Kuns Work Phone: [facility] 12-27-2023 14:20-0400 Systolic blood pressure 116 mm[Hg] DO Peter Kuns Work Phone: [facility] 12-17-2023 07:31-0400 Body height 182.88 cm DO Peter Kuns Work Phone: [facility] 12-17-2023 07:31-0400 Body temperature 97.7 [degF] DO Peter Kuns Work Phone: [facility] 12-17-2023 07:31-0400 Body weight 123.9 kg DO Peter Acs Work Phone: [facility] 12-17-2023 07:31-0400 Diastolic blood pressure 90 mm[Hg] DO Peter Acs Work Phone: [facility] 12-17-2023 07:31-0400 Heart rate 88 /min DO Peter Kuns Work Phone: [facility] 12-17-2023 07:31-0400 Respiratory rate 20 /min DO Peter Acs Work Phone: [facility] 12-17-2023 07:31-0400 SaO2% (BldA) [Mass fraction] 97 % DO Peter Acs Work Phone: [facility] 12-17-2023 07:31-0400 Systolic blood pressure 143 mm[Hg] DO Peter Kuns Work Phone: [facility] 06-08-2023 10:30-0500 Body height 182.88 cm Peterluiza Shens Other [employer] Other 06-08-2023 10:30-0500 Body mass index (BMI) [Ratio] 34.91 kg/m2 Peter Blake Other [employer] Other 06-08-2023 10:30-0500 Body weight 116.76 kg Peter Blake Other [employer] Other 06-08-2023 10:30-0500 Diastolic blood pressure 82 mm[Hg] Peter Ahumada Other [employer] Other 06-08-2023 10:30-0500 Respiratory rate 16 /min Peter Ahumada Other [employer] Other 06-08-2023 10:30-0500 SaO2% (BldA) [Mass fraction] 98 % Peter Ahumada Other [employer] Other 06-08-2023 10:30-0500 Systolic blood pressure 126 mm[Hg] Peter Ahumada Other [employer] Other 05-24-2023 15:00-0400 Body height 182.88 cm Peter Ahumada Other [employer] Other 05-24-2023 15:00-0400 Body mass index (BMI) [Ratio] 35.12 kg/m2 Peter Ahumada Other [employer] Other 05-24-2023 15:00-0400 Body weight 117.48 kg Peter Ahumada Other [employer] Other 05-24-2023 15:00-0400 Diastolic blood pressure 86 mm[Hg] Peter Ahumada Other [employer] Other 05-24-2023 15:00-0400 Respiratory rate 16 /min Peter Ahumada Other [employer] Other 05-24-2023 15:00-0400 SaO2% (BldA) [Mass fraction] 95 % Peter Ahumada Other [employer] Other 05-24-2023 15:00-0400 Systolic blood pressure 130 mm[Hg] Peter Ahumada Other [employer] Other 03-21-2023 08:30-0400 Body height 182.88 cm Peter Ahumada Other [employer] Other 03-21-2023 08:30-0400 Body mass index (BMI) [Ratio] 34.39 kg/m2 Peter Ahumada Other [employer] Other 03-21-2023 08:30-0400 Body weight 115.03 kg Peter Ahumada Other [employer] Other 03-21-2023 08:30-0400 Diastolic blood pressure 70 mm[Hg] Peter Ahumada Other [employer] Other 03-21-2023 08:30-0400 Respiratory rate 16 /min Peter Ahumada Other [employer] Other 03-21-2023 08:30-0400 SaO2% (BldA) [Mass fraction] 95 % Peter Ahumada Other [employer] Other 03-21-2023 08:30-0400 Systolic blood pressure 124 mm[Hg] Peter Ahumada Other [employer] Other 11-01-2022 13:49-0400 Diastolic blood pressure 90 mm[Hg] DO Peter Shens Work Phone: [facility] 11-01-2022 13:49-0400 Systolic blood pressure 153 mm[Hg] DO Peter Acs Work Phone: [facility] 11-01-2022 13:02-0400 Body temperature 97.6 [degF] DO Peterluiza Shens Work Phone: [facility] 11-01-2022 13:02-0400 Heart rate 72 /min DO Peter Shens Work Phone: [facility] 11-01-2022 13:02-0400 Respiratory rate 18 /min DO Peter Shens Work Phone: [facility] 11-01-2022 13:02-0400 SaO2% (BldA) [Mass fraction] 96 % DO Peter Ahumada Work Phone: [facility] 11-01-2022 08:58-0400 Body height 182.88 cm DO Peter Ahumada Work Phone: [facility] 11-01-2022 08:58-0400 Body weight 117.93 kg DO Peter Ahumada Work Phone: [facility] 05-25-2022 17:00-0400 Body height 182.88 cm Peter Ahumada Other [employer] [facility] [employer] Other 05-25-2022 17:00-0400 Body mass index (BMI) [Ratio] 33.63 kg/m2 Peter Ahumada Other [employer] [facility] [employer] Other 05-25-2022 17:00-0400 Body weight 112.49 kg Peter Ahumada Other [employer] Other 05-25-2022 17:00-0400 Diastolic blood pressure 74 mm[Hg] Peterluiza Sehnshira Other [employer] Other 05-25-2022 17:00-0400 Respiratory rate 16 /min Peterluiza Ahumada Other [employer] Other 05-25-2022 17:00-0400 SaO2% (BldA) [Mass fraction] Peter Ahumada Other [employer] Other 05-25-2022 17:00-0400 Systolic blood pressure 118 mm[Hg] Peter Ahumada Other [employer] Other 04-24-2022 09:15-0400 Body height 182.88 cm Peter Ahumada Other [employer] Other 04-24-2022 09:15-0400 Body mass index (BMI) [Ratio] 33.5 kg/m2 Peterluiza Shenshira Other [employer] Other 04-24-2022 09:15-0400 Body weight 112.04 kg Peterluiza Ahumada Other [employer] Other 04-24-2022 09:15-0400 Diastolic blood pressure 78 mm[Hg] Peter Ahumada Other [employer] Other 04-24-2022 09:15-0400 Respiratory rate 18 /min Peter Ahumada Other [employer] Other 04-24-2022 09:15-0400 SaO2% (BldA) [Mass fraction] 96 % Peter Ahumada Other [employer] Other 04-24-2022 09:15-0400 Systolic blood pressure 124 mm[Hg] Peter Blake Other [employer] Other 11-02-2021 12:00-0400 Body height 182.88 cm Peter Blake Other [employer] Other 11-02-2021 12:00-0400 Body mass index (BMI) [Ratio] 34.44 kg/m2 Peter Blake Other [employer] Other 11-02-2021 12:00-0400 Body weight 115.21 kg Peter Ahumada Other [employer] Other 11-02-2021 12:00-0400 Diastolic blood pressure 66 mm[Hg] Peter Ahumada Other [employer] Other 11-02-2021 12:00-0400 Respiratory rate 16 /min Peter Blake Other [employer] Other 11-02-2021 12:00-0400 SaO2% (BldA) [Mass fraction] 97 % Peter Ahumada Other [employer] Other 11-02-2021 12:00-0400 Systolic blood pressure 124 mm[Hg] Peter Ahumada Other [employer] Other 10-17-2021 09:15-0400 Body height 182.88 cm Peter Ahumada Other [employer] Other 10-17-2021 09:15-0400 Body mass index (BMI) [Ratio] 34.2 kg/m2 Peter Ahumada Other [employer] Other 10-17-2021 09:15-0400 Body weight 114.4 kg Peter Ahumada Other [employer] Other 10-17-2021 09:15-0400 Diastolic blood pressure 76 mm[Hg] Peter Ahumada Other [employer] Other 10-17-2021 09:15-0400 Respiratory rate 18 /min Peter Ahumada Other [employer] Other 10-17-2021 09:15-0400 SaO2% (BldA) [Mass fraction] 98 % Peter Ahumada Other [employer] Other 10-17-2021 09:15-0400 Systolic blood pressure 118 mm[Hg] Peter Ahumada Other [employer] Other 10-13-2021 13:28-0400 Body height 182.9 cm Kate Daniel MD Work Phone: [facility] 10-13-2021 13:28-0400 Body temperature 97.7 [degF] Kate Daniel MD Work Phone: [facility] 10-13-2021 13:28-0400 Body weight 115.21 kg Kate Daniel MD Work Phone: [facility] 10-13-2021 13:28-0400 Diastolic blood pressure 55 mm[Hg] Kate Daniel MD Work Phone: [facility] 10-13-2021 13:28-0400 Heart rate 68 /min Kate Daniel MD Work Phone: [facility] 10-13-2021 13:28-0400 SaO2% (BldA) [Mass fraction] 97 % Kate Daniel MD Work Phone: [facility] 10-13-2021 13:28-0400 Systolic blood pressure 112 mm[Hg] Kate Daniel MD Work Phone: [facility] 04-20-2021 08:45-0400 Body height 182.88 cm Peter Ahumada Other [employer] Other 04-20-2021 08:45-0400 Body mass index (BMI) [Ratio] 31.87 kg/m2 Peter Ahumada Other [employer] Other 04-20-2021 08:45-0400 Body weight 106.6 kg Peter Ahumada Other [employer] Other 04-20-2021 08:45-0400 Diastolic blood pressure 74 mm[Hg] Peter Ahumada Other [employer] Other 04-20-2021 08:45-0400 Respiratory rate 18 /min Peter Ahumada Other [employer] Other 04-20-2021 08:45-0400 SaO2% (BldA) [Mass fraction] 96 % Peter Ahumada Other [employer] Other 04-20-2021 08:45-0400 Systolic blood pressure 110 mm[Hg] Peter Ahumada Other [employer] Other Encounters Encounter Date Encounter Type Care Provider Facility Start: 12-05-2024 End: 12-05-2024 ambulatory Peter Ahumada Facility:[facility] Start: 10-13-2024 End: 10-13-2024 Postop follow up visit related to original px Alber Haines DO Work Phone: [facility] Comment on above: Sebaceous cyst (Prim arvin Dx) Start: 10-13-2024 End: 10-13-2024 ambulatory ALBER H ITZKOWITZ Not Available Start: 09-29-2024 End: 09-29-2024 ambulatory Peter Ahumada DO Work Phone: [facility] Work Phone: Start: 09-29-2024 End: 09-29-2024 Departed Referred Peter Ahumada DO Work Phone: [facility] [place] Work Phone: Start: 09-22-2024 End: 09-22-2024 ambulatory Christos Manrique MD Facility:[facility] [place] Start: 09-10-2024 End: 09-10-2024 Office outpatient visit 15 minutes Alber H Itzkowitz DO Work Phone: [facility] Comment on above: Sebaceous cyst (Prim arvin Dx) Start: 09-10-2024 End: 09-10-2024 ambulatory ALBER H ITZKOWITZ Not Available Start: 09-09-2024 End: 09-09-2024 ambulatory Peter Ahumada DO Work Phone: [facility] Work Phone: Start: 09-09-2024 End: 09-09-2024 Patient encounter procedure Peter Ahumada DO Work Phone: [facility] Family Medicine [place] Work Phone: Start: 09-01-2024 End: 09-01-2024 ambulatory Christos Manrique MD Facility:[facility] [place] Start: 07-17-2024 End: 07-17-2024 ambulatory Peter Ahumada Facility:[facility] Start: 07-17-2024 End: 07-17-2024 Discharged Recurring Peter Ahumada DO Work Phone: [facility]-Physical Therapy [place] Work Phone: Start: 06-23-2024 End: 06-23-2024 ambulatory Christos Manrique MD Facility:[facility] [place] Start: 06-10-2024 End: 06-10-2024 ambulatory Peter Ahumada DO Work Phone: [facility] Work Phone: Start: 06-10-2024 End: 06-10-2024 Patient encounter procedure Peter Blake DO Work Phone: [facility] Family Medicine [place] Work Phone: Start: 06-04-2024 End: 06-04-2024 Patient encounter procedure Peter Blake DO Work Phone: [facility] [place] Work Phone: Start: 06-04-2024 End: 06-04-2024 ambulatory Peter Blake DO Work Phone: [facility] Work Phone: Start: 05-22-2024 End: 05-22-2024 Patient encounter procedure Rahul Castillo DO Work Phone: [facility] Comment on above: Lumbosacral radiculo yaritza (Primary Dx) Start: 05-22-2024 End: 05-22-2024 ambulatory RAHUL CASTILLO Not Available Start: 05-22-2024 End: 05-22-2024 Bamboo flowsheet Rahul Castillo DO Work Phone: [facility] Start: 05-22-2024 End: 05-22-2024 Bamboo flowsheet Rahul Castillo DO Work Phone: [facility] Start: 05-19-2024 End: 05-19-2024 ambulatory DO Peter Ahumada Work Phone: [facility] Work Phone: Start: 05-19-2024 End: 05-19-2024 Discharged Recurring DO Peter Ahumada Work Phone: [facility]-Physical Therapy [place] Work Phone: Start: 03-12-2024 End: 03-12-2024 Patient encounter procedure DO Peter Ahumada Work Phone: [facility] [place] Work Phone: Start: 03-12-2024 End: 03-12-2024 ambulatory DO Peter Ahumada Work Phone: [facility] Work Phone: Start: 03-06-2024 End: 03-06-2024 ambulatory DO Peter Ahumada Work Phone: [facility] Work Phone: Start: 03-06-2024 End: 03-06-2024 Patient encounter procedure DO Peter Ahumada Work Phone: [facility] Family Medicine [place] Work Phone: Start: 03-05-2024 End: 03-05-2024 Patient encounter procedure DO Peter Ahumada Work Phone: [facility]-Lab [place] Work Phone: Start: 03-05-2024 End: 03-05-2024 ambulatory DO Peter Ahumada Work Phone: [facility] Work Phone: Start: 02-28-2024 End: 02-28-2024 ambulatory ALBER HAINES Not Available Start: 02-13-2024 End: 02-13-2024 ambulatory DO Peter Ahumada Work Phone: [facility] Work Phone: Start: 02-13-2024 End: 02-13-2024 Patient encounter procedure DO Peter Ahumada Work Phone: [facility] Work Phone: Start: 02-13-2024 End: 02-13-2024 Patient encounter procedure DO Peter Ahumada Work Phone: [facility] Start: 02-13-2024 End: 02-13-2024 ambulatory DO Peter Ahumada Work Phone: [facility] Work Phone: Start: 02-07-2024 End: 02-07-2024 ambulatory ALBER HAINES Not Available Start: 01-29-2024 End: 01-29-2024 Admission to same day surgery center DO Peter hAumada Work Phone: [facility]gery [facility] [place] Start: 01-29-2024 End: 01-29-2024 ambulatory DO Peter Ahumada Work Phone: [facility] Work Phone: Start: 01-15-2024 End: 01-15-2024 Departed Referred DO Peter Ahumada Work Phone: [facility]-Pre-Surgical Testing Work Phone: Start: 01-15-2024 End: 01-15-2024 Patient encounter procedure DO Peter Ahumada Work Phone: [facility]-Pre-Surgical Testing Work Phone: Start: 01-15-2024 End: 01-15-2024 ambulatory DO Peter Ahumada Work Phone: [facility] Work Phone: Start: 01-14-2024 End: 01-14-2024 ambulatory DO Peter Ahumada Work Phone: [facility] Work Phone: Start: 01-14-2024 End: 01-14-2024 Patient encounter procedure DO Peter Ahumada Work Phone: [facility] Work Phone: Start: 01-14-2024 End: 01-14-2024 Patient encounter procedure DO Peterluiza Ahumada Work Phone: [facility] Start: 01-14-2024 End: 01-14-2024 ambulatory DO Peter Ahumada Work Phone: [facility] Work Phone: Start: 01-03-2024 End: 01-03-2024 ambulatory ALBER WILLISEduardCHILO Not Available Start: 12-31-2023 End: 12-31-2023 ambulatory DO Peter Ahumada Work Phone: [facility] Work Phone: Start: 12-31-2023 End: 12-31-2023 Patient encounter procedure DO Peter Ahumada Work Phone: [facility] Work Phone: Start: 12-31-2023 End: 12-31-2023 Patient encounter procedure DO Peter Ahumada Work Phone: [facility] [place] Work Phone: Start: 12-31-2023 End: 12-31-2023 ambulatory DO Peter Ahumada Work Phone: [facility] Work Phone: Start: 12-31-2023 End: 12-31-2023 ambulatory DO Peter Ahumada Work Phone: [facility] Work Phone: Start: 12-31-2023 End: 12-31-2023 Patient encounter procedure DO Peter Ahumada Work Phone: [facility] Family [facility] [place] Work Phone: Start: 12-28-2023 End: 12-28-2023 Patient encounter procedure DO Peter Ahumada Work Phone: [facility] [place] Work Phone: Start: 12-28-2023 End: 12-28-2023 ambulatory DO Peter Ahumada Work Phone: [facility] Work Phone: Start: 12-27-2023 End: 12-27-2023 ambulatory DO Peter Ahumada Work Phone: [facility] Work Phone: Start: 12-27-2023 End: 12-27-2023 Patient encounter procedure DO Peter Ahumada Work Phone: [facility] Work Phone: Start: 12-19-2023 Non-patient / Non-visit DO Terry Ahumada Work Phone: [facility] Work Phone: Start: 12-17-2023 End: 12-17-2023 Emergency department patient visit DO Peter Ahumada Work Phone: [facility]-Emergency Room Work Phone: Start: 12-12-2023 End: 12-12-2023 ambulatory ALBER H YANCY Not Available Start: 12-03-2023 End: 12-03-2023 ambulatory DO Peter Ahumada Work Phone: [facility] Work Phone: Start: 12-03-2023 End: 12-03-2023 Patient encounter procedure DO Peter Ahumada Work Phone: [facility] Work Phone: Start: 08-27-2023 End: 08-27-2023 ambulatory Peter Ahumada Other [employer] Other Start: 08-27-2023 Telephone encounter Peter Ahumada [facility] Start: 08-22-2023 End: 08-22-2023 ambulatory DO Peter Ahumada Work Phone: [facility] Work Phone: Start: 08-22-2023 End: 08-22-2023 Patient encounter procedure DO Peter Ahumada Work Phone: [facility]-Lab [place] Work Phone: Start: 08-20-2023 End: 08-20-2023 ambulatory Peter Ahumada Other [employer] Other Start: 08-20-2023 Telephone encounter Peter Ahumada [facility] Family Medicine [place] Start: 08-13-2023 Telephone encounter Peter Ahumada [facility] Family Medicine [place] Start: 08-13-2023 End: 08-13-2023 ambulatory DO Peter Ahumada Work Phone: [employer] Other Start: 08-13-2023 End: 08-13-2023 Patient encounter procedure DO Peter Ahumada Work Phone: [facility] Work Phone: Start: 08-06-2023 End: 08-06-2023 ambulatory Peter Ahumada Other [employer] Other Start: 08-06-2023 Telephone encounter Peter Ahumada [facility] Family Medicine [place] Start: 06-11-2023 End: 06-11-2023 ambulatory Peter Ahumada Other [facility] [employer] Other Start: 06-11-2023 Telephone encounter Peter Ahumada [facility] [place] Start: 06-08-2023 Office outpatient vi sit 25 minutes Peter Ahumada [facility] [place] Start: 06-08-2023 End: 06-08-2023 ambulatory DO Peter Ahumada Work Phone: [facility] Work Phone: Start: 06-08-2023 End: 06-08-2023 Patient encounter procedure DO Peter Ahumada Work Phone: [facility] Work Phone: Start: 06-08-2023 End: 06-08-2023 Patient encounter procedure DO Peter Ahumada Work Phone: [facility] Family Medicine [place] Work Phone: Start: 05-25-2023 End: 05-25-2023 Patient encounter procedure DO Peter Ahumada Work Phone: [facility] Work Phone: Start: 05-24-2023 End: 05-24-2023 ambulatory Peter Ahumada Other [employer] Other Start: 05-24-2023 Office outpatient vi sit 25 minutes Peter Ahumada [facility] [place] Start: 05-24-2023 End: 05-24-2023 Patient encounter procedure DO Peter Ahumada Work Phone: [facility] Family Medicine [place] Work Phone: Start: 03-21-2023 End: 03-21-2023 ambulatory Peter Ahumada Other [employer] Other Start: 03-21-2023 Office outpatient vi sit 15 minutes Peter Ahumada [facility] [place] Start: 03-19-2023 End: 03-19-2023 ambulatory DO Peter Ahumada Work Phone: [facility] Work Phone: Start: 03-19-2023 End: 03-19-2023 Patient encounter procedure DO Peter Ahumada Work Phone: [facility]-Lab [place] Work Phone: Start: 01-15-2023 End: 01-15-2023 ambulatory DO Peter Ahumada Work Phone: [facility] Work Phone: Start: 01-15-2023 End: 01-15-2023 Patient encounter procedure DO Peter Ahumada Work Phone: [facility]-Ultrasound Cntr for [facility] Car Start: 01-12-2023 End: 01-12-2023 ambulatory Peter Ahumada Other [employer] Other Start: 01-12-2023 Telephone encounter Peter Ahumada [facility] Start: 11-23-2022 End: 11-23-2022 Patient encounter procedure DO Peter Ahumada Work Phone: [facility] [place] Work Phone: Start: 11-01-2022 End: 11-01-2022 Emergency department patient visit DO Peter Ahumada Work Phone: [facility]-Emergency Room Work Phone: Start: 10-31-2022 End: 10-31-2022 ambulatory DO Peter Ahumada Work Phone: [facility] Work Phone: Start: 10-31-2022 End: 10-31-2022 Patient encounter procedure DO Peterluiza Ahumada Work Phone: [facility]Lab [place] Work Phone: Start: 05-25-2022 End: 05-25-2022 Departed Referred DO Peter Ahumada Work Phone: [facility] [place] Start: 05-25-2022 End: 05-25-2022 ambulatory DO Peter Ahumada Work Phone: [employer] Other Start: 05-25-2022 Office outpatient vi sit 15 minutes Peter Ahumada [facility] Start: 04-24-2022 End: 04-24-2022 ambulatory Peter Ahumada Other [employer] Other Start: 04-24-2022 Office outpatient vi sit 25 minutes Peter Ahumada [facility] [place] Start: 04-19-2022 End: 04-19-2022 ambulatory DO Peter Ahumada Work Phone: [facility] Work Phone: Start: 04-19-2022 End: 04-19-2022 Patient encounter procedure DO Peter Ahumada Work Phone: [facility]Lab [place] Start: 11-15-2021 End: 11-15-2021 ambulatory Peter Ahumada Other [employer] Other Start: 11-15-2021 Telephone encounter Peter Ahumada [facility] Start: 11-02-2021 End: 11-02-2021 ambulatory Peter Ahumada Other [employer] Other Start: 11-02-2021 Office outpatient vi sit 15 minutes Peter Ahumada [facility] [place] Start: 10-17-2021 End: 10-17-2021 ambulatory Peter Ahumada Other [employer] Other Start: 10-17-2021 Office outpatient vi sit 25 minutes Peter Ahumada [facility] [place] Start: 10-13-2021 End: 10-13-2021 Patient encounter procedure Kate Daniel MD Work Phone: General Surgery Comment on above: Liver pain (Primary Dx) Start: 04-20-2021 Office outpatient vi sit 25 minutes Peter Ahumada [facility] [place] Start: 02-22-2021 End: 02-22-[address] PETER AHUMADA Facility: Start: 11-30-2020 End: 11-30-2020 Subsequent hospital visit by physician Carlos Echols Work Phone: Radiology Comment on above: Closed nondisplaced fracture of proximal phalanx of left little finger, initial encounter [S62.647A] Start: 11-18-2020 End: 11-18-2020 Subsequent hospital visit by physician Carlos Baker Onesimo Work Phone: Radiology Comment on above: Closed nondisplaced fracture of proximal phalanx of left little finger, initial encounter [S62.647A] Procedures Date Procedure Procedure Detail Performing Clinician [...] P,Tdap,Td Vaccine (2 - Td or Tdap) [facility] Start: 05-22-2024 End: 05-22-2024 Patient encounter procedure 05/22/2024 2:30 PM EDT Procedure Visit [facility] [address] [facility] [address] [place] [address] Rahul Castillo, DO [address] [place] [id number] Arrived [facility] Comment on above: Arrived Start: 03-23-2024 Covid-19 Vaccine ( season) Covid-19 Vaccine ( season) [facility] Start: 03-23-2024 Influenza vaccination Influenz a Vaccine (#1) [facility] Start: 03-05-2024 [facility] Start: 02-13-2024 Plain X-ray of right elbow XR elbow RT 2V [facility] Start: 02-13-2024 XR Elbow - right 2 Views [facility] Start: 01-29-2024 [facility] Start: 01-29-2024 [facility] Start: 01-14-2024 Plain X-ray of right elbow XR elbow RT 2V [facility] Start: 01-14-2024 XR Elbow - right 2 Views [facility] Start: 12-31-[address] [facility] Work Phone: Start: 2022 Screening for malign ant neoplasm of breast Mammogram Screening [facility] Start: 03-23-2021 Influenza vaccination INFLUENZA (#1) [facility] Start: 2012 HPV TESTING HPV TESTING [facility] Start: 2003 PAP TESTING PAP TESTING [facility] Start: 2003 Screening for malign ant neoplasm of cervix Cervical Cancer Screening [facility] Start: 2001 Hepatitis B Vaccine (1 of 3 - 19+ 3-dose series) Hepatitis B Vaccine (1 of 3 - 19+ 3-dose series) [facility] Start: 2001 Urine microalbumin profile DTA P,TDAP,TD (1 - Tdap) [facility] Start: 2000 Anxiety Screening Anxiety Screening [facility] Start: 2000 Depression Screening Depression Scre ening [facility] Start: 2000 HEPATITIS C SCREENING HEPATITIS C [facility] Start: 2000 Hepatitis C screening Hepatitis C [facility] Start: 2000 HIV SCREENING HIV SCREENING [facility] Start: 2000 HIV screening HIV Screening [facility] Start: 1994 Adult depression scr eening assessment DEPRESSION SCREENING [facility] Start: 1987 COVID-19 VACCINE (1) COVID-19 VACCIN E (1) [facility] Comprehensive metabo lic 1999 panel - Serum or Plasma [facility] Comprehensive metabo lic 1999 panel - Serum or Plasma [facility] Glucose measurement estimated from glycated hemoglobin [facility] Patient Education [facility] Work Phone: Patient referral [facility] Work Phone: RF Gastrointestinal tract upper Single view W air contrast PO [facility] US Gallbladder [facility] XR Elbow - right GE 3 Views [facility] Immunizations Immunization Date Immunization Notes Care Provider Fa sammy 12-17-2023 tetanus toxoid, reduced diphtheria toxoid, and acellular pertussis vaccine, adsorbed DO Peter Ahumada Work Phone: [facility] 06-07-2022 influenza, injectable, quadrivalent, preservative free Peter Ahumada Other [facility] 04-09-2020 influenza, seasonal, injectable Peter Ahumada Other [employer] [facility] [employer] Other 03-10-2019 influenza, seasonal, injectable Patient Objection Peter Ahumada Other [employer] [facility] [employer] Other 02-18-2018 tetanus toxoid, reduced diphtheria toxoid, and acellular pertussis vaccine, adsorbed Peter Blake Other [facility] NEGATED: Highlighted row has not occurred!06-07-2022 influenza, seasonal, injectable Patient Objection Peter Ahumada Other [employer] [facility] [employer] Other NEGATED: Highlighted row has not occurred!04-09-2020 influenza, seasonal, injectable Peter Shens Other [employer] [facility] [employer] Other NEGATED: Highlighted row has not occurred!03-10-2019 influenza, seasonal, injectable Patient Objection Peter Ahumada Other [employer] Other Payers Date Payer Category Payer Self-pay [id number] 2022 Unknown 2018 Medicaid [facility] [id number] 2018-Present [phone] [address] [place] [address] Medicaid [id number] 2018 Medicaid [facility] [id number] 2018-2022 [address] [place] [address] Medicaid [id number] 2018 Private Health Insurance [employer] [id number] 2018 Medicaid [id number] 1982 Unknown [id number] 1982 Unknown [id number] 1982 Unknown [id number] 1982 Unknown [id number] 1982 Unknown [id number] 1982 Unknown [id number] 1982 Unknown [id number] 1982 Unknown [id number] 2.840.1.925393.3.579.2 .1258 1980 Unknown [id number] 2.840.1.974588.3.579.2 .1258 1980 Unknown [id number] .840.1.703593.3.579.2 .1258 1982 Unknown [id number] 2.840.1.730039.3.579.2 .9 1959 Unknown [id number] Unknown [id number] Unknown [id number] 2.840.1.083122.3.579.2 .531 Unknown [id number] 840.1.618498.3.579.2 .531 Unknown [id number] .840.1.267215.3.579.2 .531 Unknown [id number] 2.840.1.782920.3.579.2 .531 Unknown [id number] 2.840.1.434709.3.579.2 .531 Unknown [id number] 2.840.1.749121.3.579.2 .531 Unknown [id number] 2.840.1.675639.3.579.2 .531 Unknown [id number] 2.16.840.1.317730.3.579.2 .531 Unknown [id number] 2.16.840.1.320945.3.579.2 .531 Unknown [id number] 2.16.840.1.537726.3.579.2 .531 Unknown [id number] 2.16.840.1.225047.3.579.2 .531 Unknown [id number] 2.16.840.1.169442.3.579.2 .531 Unknown [id number] 2.16.840.1.787531.3.579.2 .531 Unknown [id number] 2.16.840.1.393037.3.579.2 .531 Social History Date Type Detail Facility Start: 03-03-2021 End: 01-03-2024 Tobacco smoking status RIIS Ex-smoker [facility] Work Phone: End: 06-22-2006 History of tobacco use Current smoker [facility] Work Phone: Start: 03-03-2021 End: 01-03-2024 Tobacco use and exposure Smokeless tobacco non-user [facility] Work Phone: Start: 10-13-2021 Alcohol intake Current drinker of alcohol (finding) [facility] Start: 03-03-2021 History SDOH Alcohol Comment occ [facility] Start: 03-03-2021 Tobacco Comment Smoked 1 pack a week, quit in 2005, can't remember start date [facility] Start: 1980 Sex Assigned At Not on file [facility] Start: 06-30-2020 End: 09-10-2024 Sex Assigned At [facility] Start: 11-25-2015 End: 02-15-2021 Tobacco smoking status RIIS Never smoked tobacco (finding) [facility] Start: 1980 Sex Assigned At Female [facility] Start: 11-25-2015 Alcoholic beverage intake Not Asked [facility] Start: 06-30-2020 End: 09-10-2024 History of [address] [facility] National Score (1-10 0), lower number is lower risk Not on file [facility] Start: 10-19-2020 End: 11-30-2020 Exposure to SARS-CoV-2 (event) Not sure [facility] End: 06-22-2006 History of tobacco use Cigarette Smoker [facility] Start: 02-04-2024 End: 09-30-2024 Alcoholic beverage intake Ex-drinker (finding) [facility] Start: 01-25-2023 Tobacco Comment Quit smoking 10 years ago [facility] Start: 01-25-2023 Alcohol Comment caffeine 1-2 cups/day [facility] Start: 01-18-2023 Gender identity Identifies as female gender (finding) [facility] Start: 01-18-2023 Sexual orientation Heterosexual (finding) [facility] Start: 06-05-2024 End: 09-30-2024 Sex Female (finding) [facility] Medical Equipment Procedure Code Equipment Code [...] see her PRN documented in this encounter [facility] 09-10-2024 History of Presen t illness [...] 90 mcg/act inhaler Every 4 hours HYDROcodone-acetaminophen ([place]) 5-325 MG tablet TAKE 1 TABLET BY [...] to schedule it. documented in this encounter [facility] 09-09-2024 Evaluation note Authored September 09, 2024 3:43pm The above note written by SIOMARA Bolden acting as human recorder, note dictated by Dr. Peter Ahumada. [facility] Work Phone: [phone] 519-888910-31-2024 History of Present illness Narrative* CESAR Rich - 05/22/2024 2:30 PM EDT Images from the original note were not included. Reason for Appointment: EMG Patient: Darling Khanna : 1980 EMG Computer: [employer] Referring Physician: Dr. Robert Martinez EMG: BLE can repairer: Cayetano Moreno RT(R) Office Location: [place] Reason for EMG: c/o low back pain into left hip, pain in right knee, pain in bilateral heels. No hxof DM. Not on blood thinners. Comments: Procedure was explained to the patient who expressed understanding. Patient appeared to have tolerated the test well despite some discomfort due to the nature of the test. [place] [id number] Evaluation note* Author Hyacinth Hutton [facility] Authored March 06, 2024 2: 47pm The above note written by Thuan STRINGER acting as human recorder, note dictated by Dr.Bryan Ahumada. [facility] Work Phone: [phone] 256-422501-22-2024 Evaluation note* Encounter Date Diagnosis Assessment Notes Treatment Notes Treatment Clinical Notes Jul, Abnormal mammogram of left breast (ICD-10 - R92.8) [facility] 01-15-2024 Evaluation note* Encounter Date Diagnosis Assessment Notes Treatment Notes Treatment Clinical Notes Jul, Abnormal mammogram (ICD-10 - R92.8) [facility] 11-17-2023 Evaluation note* Encounter Date Diagnosis [...] modification. May, Acute bronchitis (ICD-10 - J20.9) [facility] 11-02-2023 Evaluation note* Encounter Date Diagnosis [...] exercise regimen; we will continue to monitor. [facility] 08-30-2023 Evaluation note* Encounter Date Diagnosis [...] been ordered to use for allergic reaction. [facility] 06-23-2023 Evaluation note* Encounter Date Diagnosis Assessment Notes Treatment Notes Treatment Clinical Notes Dec, Mass of upper outer quadrant of left breast (ICD-10 - N63.21) [facility] 11-03-2022 Evaluation note* Encounter Date Diagnosis [...] sent to the lab to determine pathology. [facility] 10-03-2022 Evaluation note* Encounter Date Diagnosis [...] excisional biopsy. Apr, Hyperlipidemia (ICD-10 - E78.5) [facility] 04-13-2022 Evaluation note* Encounter Date Diagnosis Assessment Notes Treatment Notes Treatment Clinical Notes Oct, Neoplasm of uncertain behavior of skin (ICD-10 - D48.5) The patient does have three lesions located on her left lateral calf, right upper thigh, and left vertex region of the scalp that are red, inflammed, and are abnormally shaped that were removed via shave and sent for pathology. [facility] 03-28-2022 Evaluation note* Encounter Date Diagnosis [...] any abnormality Sep, Hyperlipidemia (ICD-10 - E78.5) 28 Mar, 2022 Skin tag (ICD-10 - L91.8) Patient has 2 small skin tags located next to the left eye. One under the right eye. These will be removed with hyfrecator. [facility] 03-24-2022 NoteHNO ID: [id number] Author: Kate Daniel MD Service: ? Author Type: Physician Type: Progress Notes Filed: 10/17/2021 1:50 PM Note Text: Assessment ESTABLISHED PATIENT Darling Khanna is a 40 year old female with a right posterior liver subcapsular fluid collection ? 03/03/2021: Patient presented to [facility] on 02/08/2021 for 2 days for acute ride sided abdominal/flank pain, right shoulder discomfort and nausea. She was diagnosed with Klebsiella pneumoniae UTI and was discharged with oral keflex and zofran. Patient represented to ER on 02/09/2021 for the continued complaints of pain. ? Referral From:?PCP- Peter Ahumada, DO Reason:?right abdominal pain pain; liver?fluid collection? ? Received Records From:? 02/08/2021 ER Report [facility] 02/09/2021 ER Report [facility] 02/15/2021 PCP Office note ? Visited [...] gradually improving. US of ovaries yesterday at [facility]. Scheduled for upper GI at end of month. Gained?50 pounds since July?(was in [place] for 3 months, drank a lot); diagnosed [...] well. She did spend 3 months in [place] and did not have any issues, hospitalizations [...] which included preparing to see the patient, [id number] patient care and completing clinical documentation. Kate Daniel, [facility]03-24-2022 Nurse Note* Jayne Aguila Ma - 10/13/2021 1:32 PM EDT What is the reason for your visit today? Follow up Who is your referring physician? Are you having poor oral intake? NO Have you had unintentional weight loss of 15 lbs/7 Kg in the last 3-6 months? NO Bowels: regular Wound: Temperature: No Drains: No [facility] History of Present illness Narrative* Kate aDniel MD - 10/13/2021 1:30 PM EDT Assessment ESTABLISHED PATIENT Darling Khanna is a 40 year old female with a right posterior liver subcapsular fluid collection 03/03/2021: Patient presented to [facility] on 02/08/2021 for 2 days for [...] collection Received Records From: 02/08/2021 ER Report [facility] 02/09/2021 ER Report [facility] 02/15/2021 PCP Office note Visited ER [...] gradually improving. US of ovaries yesterday at [facility]. Scheduled for upper GI at end of month. Gained 50 pounds since July (was in [place] for 3 months, drank a lot); diagnosed [...] well. She did spend 3 months in [place] and did not have any issues, hospitalizations [...] which included preparing to see the patient, [id number] patient care and completing clinical documentation. Kate Daniel MD [facility] Evaluation note* Encounter Date Diagnosis Assessment [...] under 200lbs. We will continue to monitor. [facility] 09-16-2021 NoteHNO ID: [id number] Author: Kate Daniel MD Service: ? Author Type: Physician Type: Progress Notes Filed: 04/11/2021 3:19 PM Note Text: Assessment ESTABLISHED PATIENT Darling Khanna is a 40 year old female with a right posterior liver subcapsular fluid collection 03/03/2021: Patient presented to [facility] on 02/08/2021 for 2 days for acute ride sided abdominal/flank pain, right shoulder discomfort and nausea. She was diagnosed with Klebsiella pneumoniae UTI and was discharged with oral keflex and zofran. Patient represented to ER on 02/09/2021 for the continued complaints of pain. ? Referral From:?PCP- Peter Ahumada, DO Reason:?right abdominal pain pain; liver?fluid collection? ? Received Records From:? 02/08/2021 ER Report [facility] 02/09/2021 ER Report [facility] 02/15/2021 PCP Office note ? Visited [...] gradually improving. US of ovaries yesterday at [facility]. Scheduled for upper GI at end of month. Gained 50 pounds since July (was in [place] for 3 months, drank a lot); diagnosed [...] which included preparing to see the patient, [id number] patient care and completing clinical documentation. Kate Daniel [facility]09-01-2021 NoteHNO ID: [id number] Author: William De León MD Service: ? [...] William De León MD [facility] Surgical Fellow [facility]08-[facility]-2021 NoteHNO ID: [id number] Author: Kate Daniel MD Service: ? Author [...] 40 year old female Patient presented to [facility] on 02/08/2021 for 2 days for [...] ? Received Records From: 02/08/2021 ER Report [facility] 02/09/2021 ER Report [facility] 02/15/2021 PCP Office note Visited ER [...] gradually improving. US of ovaries yesterday at [facility]. Scheduled for upper GI at end of month. Gained 50 pounds since July (was in [place] for 3 months, drank a lot); diagnosed [...] was malignant. Seen by Dr. Haines on [facility], in [facility]; denies chemotherapy or radiation. Hernia repair Social [...] rhythm. Abdomen: Abdomen so (more content not included)...[facility] 12-28-2020 NoteHNO ID: [id number] Author: Tracey Hair Ma Service: ? Author Type: ? Type: Progress Notes Filed: 12/28/2020 4:25 PM Note Text: Dispensed XL/XXL Reaction brace for the Right knee. Dispensed by [employer]. Instructions were given on application/adjustments. She will f/u as scheduled/prn. Tracey Hair MA,[facility] 12-28-2020 NoteHNO ID: [id number] Author: Ishan Yusuf, Service: ? Author Type: [...] was performed today. CLINICAL IMPRESSION / ASSESSMENT: (K63.942D) Closed nondisplaced fracture of proximal phalanx of [...] PT if not improving Procedures Ishan Yusuf [facility]05-11-2021 NoteHNO ID: [id number] Author: Ishan Yusuf, DO Service: ? Author [...] results and radiologist's interpretation, available in the [facility] health record. Images were reviewed with the patient/family members in the office today. My personal interpretation of the performed imaging is healing proximal phalanx fracture CLINICAL IMPRESSION / ASSESSMENT: (Z99.790A) Closed nondisplaced fracture of proximal phalanx of left little finger, initial encounter (primary encounter diagnosis) PLAN: Start weaning out of the splint at this time Can start OT at this time ROM as tolerated Follow-up in 3-4 weeks Procedures THOMAS [facility]clainVan [facility]05-11-2021 NoteHNO ID: [id number] Author: RT Suzanna(R) Service: ? Author Type: Family Preservation Caseworker Type: Progress Notes Filed: 11/30/2020 3:44 PM [...] BY: RT Suzanna(R) November 30, 2020 3:[address] [facility]04-29-2021 NoteHNO ID: [id number] Author: RT Victor M(R) Service: ? Author Type: Family Preservation Caseworker Type: Progress Notes Filed: 11/18/2020 3:47 PM [...] RT Victor M(R) November 18, 2020 3:[address] [facility]04-29-2021 NoteHNO ID: [id number] Author: Ishan Yusuf, DO Service: ? Author [...] results and radiologist's interpretation, available in the [facility] health record. Images were reviewed with [...] of depression Follow-up accordingly Procedures Ishan Yusuf, [facility]04-15-2021 NoteHNO ID: [id number] Author: Bob Millan Service: ? Author Type: Physician Type: Progress Notes Filed: 11/04/2020 2:12 PM Note Text: [facility] Office Visit Documentation Note [facility] [place] REASON FOR VISIT / CHIEF COMPLAINT SERVICE [...] results and radiologist's interpretation, available in the [facility] health record. Images were reviewed with the patient/family members in the office today. My personal interpretation of the performed imaging is Has IA prox phalanx fracture at PIP ASSESSMENT / PLAN CLINICAL IMPRESSION / ASSESSMENT: (B00.051F) Closed nondisplaced fracture of proximal phalanx of [...] plan as detailed above. Bob Millan D.O. [facility] [place] Team Physician, [facility] Consulting Physician, [place], [place] Trimmer [phone] Patient verbalizes understanding and agrees with the treatment plan as detailed above.[facility] Liver pain- Primary Abdominal pain, other specified site [facility] noteNo InformationNort [email or web address] Other Evaluation noteNo assessment information available [facility] Work Phone: Evaluation note* Diagnosis Onset Date Resolution Status Ground-level fall acute Laceration of knee, left acu te Right elbow pain acute [facility] Work Phone: Evaluation note* Diagnosis Onset Date Resolution Status Ground-level fall acute Laceration of knee, left acu te Right elbow pain acute Elbow fracture, right acute Hypothyroidism acute Laceration of knee, left acu te [facility] Work Phone: Evaluation note* Diagnosis Onset Date Resolution Status Ground-level fall acute Laceration of knee, left acu te Right elbow pain acute Elbow fracture, right acute Hypothyroidism acute Laceration of knee, left acu te Fracture of radial neck, right, closed acute [facility] Work Phone: Evaluation note* Diagnosis Onset Date Resolution Status Ground-level fall acute Laceration of knee, left acu te Right elbow pain acute Elbow fracture, right acute Hypothyroidism acute Laceration of knee, left acu te Fracture of radial neck, right, closed acute Fracture of radial neck, right, closed acute [facility] Work Phone: Evaluation note* Diagnosis Onset Date Resolution Status Ground-level fall acute Laceration of knee, left acu te Right elbow pain acute Elbow fracture, right acute Hypothyroidism acute Laceration of knee, left acu te Fracture of radial neck, right, closed acute Fracture of radial neck, right, closed acute Fracture of radial neck, right, closed acute [facility] Work Phone: Evaluation note* Author Hyacinth Hutton [facility] Authored March 06, 2024 2: 47pm The above note written by Thuan STRINGER acting as human recorder, note dictated by Dr.Bryan Ahumada. [facility] Work Phone: Evaluation note* Diagnosis Closed nondisplaced fracture of proximal phalanx of left little finger, initial encounter [facility] Diagnosis Lumbosacral radiculopathy- Primary Thoracic or lumbosacral neuritis or radiculitis, unspecified [facility] Diagnosis Onset Date Resolution Status Admit Date Bilateral foot pain acute Novem 2023 2:36pm Fatty liver acute May 2:36pm GERD (gastroesophageal reflu x disease) acute June 10, 2 024 2:36pm Hypothyroidism acute May 232023 2:36pm Pre-diabetes acute May 2:36pm [facility] Work Phone: Evaluation note* Author Hyacinth Hutton [facility] Authored September 09, 2024 2:43pm The above note written by SIOMARA Bolden acting as human recorder, note dictated by Dr. Peter Ahumada. 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 Medical History Inclusion cyst Surgical History jaw surgery for underbite Surgical History breast biopsy 2018 Hospitalization History see surgical hx [facility] Other Hospital Discharge instructions Additional Instructions [place] diet as tolerated Increase oral fluids Take the diclofenac twice a day as needed for pain and inflammation Take oxycodone every 6 hours for severe pain Follow-up with your family doctor for recheck I also gave you the number for gastroenterology Return to the ER for more severe pain high fever vomiting or any other concerns [facility] Work Phone: Hospital Discharge instructions Additional Instructions Sutures out in [facility] days[facility] Work Phone: Hospital Discharge instructions Additional [...] directed for pain unless a prescription was provided.[facility] Work Phone: Reason for visit Narrative* Other Medical (Routine) - Closed Specialty Diagnoses / Procedures Referred By Clarisse t Referred To Contact Neurology Diagnoses Sciatica, left side Procedures MS NEEDLE EMG EA EXTREMTY W/PARASPINL AREA COMPLETE MS NERVE CONDUCTION STUDIES 9-10 STUDIES Robert Martinez MD [address] [place] [address] Phone: tel: fax: Shakeel Rios MD [address] [place] [address] Phone: tel: fax: Referral ID Status Reason Start Date Expiration Date V isits Requested Visits Authorized [id number] Closed Perform Procedure 05/13/2024 11/09/2024 1 1 [...] Complaint fall Amb Documentation remove sutures per k w19.xxxa m25.561/m25.[address] Ahumada [...] Complaint fall Amb Documentation remove sutures per k w19.xxxa m25.561/m25.[address] Ahumada [...] DATE CREATED AUTHOR AUTHOR'S ORGANIZ ATION 10/18/2021 [facility] DATE CREATED AUTHOR AUTHOR'S ORGANIZ ATION 09/26/2024 [facility] DATE CREATED AUTHOR AUTHOR'S ORGANIZ ATION 10/14/2024 [facility] DATE CREATED AUTHOR AUTHOR'S ORGANIZ ATION 12/06/2024 [facility] Source Comments (unrecognize d section and content) In the event this informatio n is protected by the Federal Confidentiality of Alcohol and Drug Abuse Patient Records regulations: The Federal rules restrict any use of the information to criminally investigate or prosecute any alcohol or drug abuse patient.[facility] the event this information is protected by the Federal Confidentiality of Alcohol and Drug Abuse Patient Records regulations: The Federal rules restrict any use of the information to criminally investigate or prosecute any alcohol or drug abuse patient.[facility] HospitalIn the event this information is protected by the Federal Confidentiality of Alcohol and Drug Abuse Patient Records regulations: The Federal rules restrict any use of the information to criminally investigate or prosecute any alcohol or drug abuse patient.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[employer] Relationship Specialty Start Date End Date Peter Ahumada DO [address] [place] [address] PCP - General Family Practice 11/22/15 Team Status: Inactive Member Role Status Dates Peter Ahumada DO Primary Care Provider Active Alba Marshall , ASSISTANT PLANT MANAGER- Emergency Provider Active Team Status: Inactive Member Role Status Dates Peter Ahumada DO Primary Care Provider Active Koki Elkins ([facility]) , LEAN SIX SIGMA SENIOR SPECIALIST Attending Provider Active Team Status: Inactive [...] Dates Peter Ahumada , DO Primary Care Provide r, Attending Provider [...] March 12, 2024 End: March 12, 2024 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[employer] Relationship Specialty Start Date End Date Peter Ahumada DO [facility] [place] [address] PCP - General Family Medicine 11/22/15 Team Status: Inactive Member Role Status Dates Peter Ahumada DO Primary Care Provider Active Sta rt: May 19, 2024 End: May 19, 2024 Robert Martinez DPM MS Attending Provider Active Start: May 19, 2024 End: May 19, 2024 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[employer] Relationship 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 Start Date End Date Peter Ahumada MD [address] [facility] [place] [address] PCP - General 01/25/23 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[employer] Relationship Specialty Start Date End Date Peter Ahumada MD [address] [facility] [place] [address] PCP - General 01/25/23 Team Status: [...] September 09, 2024 End: September 09, 2024 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 [facility] [employer] [facility]. provides no warranty or guarantee of the accuracy or completeness of information in this document.
[2024-12-08 10:15] VITALS: BP 122/80; PULSE 78; TEMP 36.1; O2SAT 98
[2024-12-08 11:00] VITALS: PULSE 68; O2SAT 100
[2024-12-08 11:01] VITALS: BP 166/74
[2024-12-08 11:02] VITALS: BP 151/68; PULSE 74; O2SAT 100
[2024-12-08] MEDS: METHYLPREDNISOLONE ACETATE 40 MG/ML VIAL INJ (11:03)
[2024-12-08] MEDS: LIDOCAINE HCL 2% 400 MG/20 ML MDV INJ (11:03)
[2024-12-08] MEDS: IOHEXOL 240 MG/ML - 10 ML VIAL 24 MG INJ (11:03)
[2024-12-08] MEDS: BUPIVACAINE HCL 0.25% PF 25 MG/10 ML VIAL 2 ML INJ (11:03)
--- NOTE | 2024-12-08 11:03 | W.PM.PROCNOT ---
Date of procedure: 12/08/24 Pre-op diagnosis: Pain due to left sacroiliitis Post-op diagnosis: same as pre-op Procedure: Procedure: Left sacroiliac joint injection Medications: Bupivacaine 0.25% 4cc, depomedrol 40mg After informed consent was obtained, the patient was brought to the OR and placed in the prone position. The skin overlying the area was prepped and draped in sterile fashion ?using alcohol, after which a 25 gauge needle was used to access the nerve innervating the left sacroiliac joint under fluoroscopic guidance. Omnipaque contrast dye was injected to show absence of vascular or spinal canal uptake. After encountering the same we instilled 4 mL of solution. ?Postoperatively, needles were removed. The patient tolerated the procedure well and was ?transferred to recovery area in stable condition, to be discharged home after meeting ?criteria. Follow up as per the treatment plan. Anesthesia: Local Surgeon: Christos Manrique Pathology: none sent Condition: stable Disposition: no change
== END 2024-12-08 11:08 | disposition home or self-care (01) ==
LOC: SURGOUT 09:44
PROVIDERS: PCP Family Medicine; Visit Provider Anesthesiology
DX: M46.1 Sacroiliitis, not elsewhere classified (principal)
CPT/HCPCS: 27096; J0665; J1010; Q9966

== ENCOUNTER 2024-12-17 13:36 | Outpatient (OUT) | payer OTHER, SELFPAY ==
--- OUTSIDE RECORDS SUMMARY | 2024-05-07 11:33 | XMS_ITS ---
Author Organization The [facility] in [place] Address [address] [place] [address] Care Team Providers Care Director Of Student Financial Aid Name Role Phone Peter Lozano DO Primary Care Provider Arthur Wade [phone] REASON FOR VISIT med order Medications Medication SIG (Take, Route, Fr equency, Duration) Notes Start Date End Date Status Meloxicam 15 MG 1 tablet Orally Once a day for 30 days 05/07/2024 Active Encounters Encounter Location Date Provider Diagnosis [facility] (PODIATRY) [address] [place] [address] [place] [address] 05/07/2024 Arthur Kent Plan Of Treatment Medication Medication Name Sig Start Date Stop Date Notes Meloxicam 15 MG 1 tablet Orally Once a day for 30 days Progress Notes * Alex OHARAaDOB: 2 (44 yo F)Acc No.[id number]:05/07/2024 Patient: Darling COLEMAN :1980 A ge:44 Y S ex:Female Address:[address] [place] [address], [address] * Refills Start Meloxicam Tablet, 15 MG, Orally, 30, 1 tablet, Once a day, 30 days, Refills=2 * true * Date: Generated for Juvenal tay/Dorota/eTransmitting on: 0 12/17/2024 01:39 PM EDT
--- OUTSIDE RECORDS SUMMARY | 2024-06-17 10:30 | XMS_ITS ---
Author Organization The [facility] in [place] Address [address] [place] [address] Care Team Providers Care Associate Professor Of Library Science Name Role Phone Peter Lozano DO Primary Care Provider Arthur Wade [phone] Reason For Referral Reason Referral to [facility] PT Diagnosis 1 Plantar fascial fibr omatosis (M72.2) Referral Organization [facility] (PODIATRY) Referring Provider First Name Arthur Referring Provider Last Name Yoli Referring Provider Speciality Podiatry Referred Provider Specialty Physical The rapist Referral Priority Routine Reason Referral to linden Schmid Diagnosis 1 Plantar fascial fibr omatosis (M72.2) Referral Organization [facility] (PODIATRY) Referring Provider First Name Arthur Referring Provider Last Name Yoli Referring Provider Speciality Podiatry Referred Provider Specialty Pain Medicin e Referral Priority Routine REASON FOR VISIT MRI ([facility] 06.04.24) and EMG review Medications Medication [...] Problem Status W/U Status Risk Notes Problem [id number] Radiculopathy , lumbar region (M54.16) Active confirmed Vital Signs Height 72 in 06/17/2024 Temperature 97.3 degrees Fahrenheit 06/17/20 Heart Rate 87 /min 06/17/2024 Oximetry 94 % 06/17/2024 Encounters Encounter Location Date Provider Diagnosis [facility] (PODIATRY) [address] [place] [address] [place] [address] 06/17/2024 Arthur Kent Plantar fascial fibromatosis M72.2 [...] Referral Date Details 06/18/2024 06/18/2024, Referral to [facility] PT 06/18/2024 06/18/2024, Referral to pain management DR. Schmid Progress Notes * Yany OHARAB: 2 (44 yo F)Acc No.[id number]:06/17/2024 Follow Up Patient: Manuel PAUL Darling Provider: Agusto Kent DPM, MS :1980 A ge:44 Y S ex:Female Date:06/17/2024 Address:[address] [place], [place] [phone] Pcp:Peter Lozano, DO Check In:02:25 PM ESTCheck O ut:03:34 PM EST Subjective: * Chief Complaints: * M RI ([facility] .13.24) and EMG review * HPI: [...] DPM, MS Date: 1 08/17/2023 Generated for [facility] maggi/Dorota/eTransmitting on: 0 12/17/2024 01:38 PM EDT History and Physical Notes * [...] 06/18/2024 Arthur Kent , Referral t o [facility] PT 06/18/2024 Arthur Kent , Referral t o pain management DR. Schmid
--- OUTSIDE RECORDS SUMMARY | 2024-06-27 05:22 | XMS_ITS ---
Author Organization [facility] in [place] Address [address] [place] [address] Care Team Providers Care School Bus Mechanic Name Role Phone Peter Loazno DO Primary Care Provider Arthur Wade [phone] Encounters Encounter Location Date Provider Diagnosis [facility] (PODIATRY) [address] [place] [address] [place] [address] 06/27/2024 Arthur Kent Plan Of Treatment No Information Progress Notes * Yany OHARAB: 2 (44 yo F)Acc No.[id number]:06/27/2024 Patient: Darling COLEMAN :1980 A ge:44 Y S ex:Female Address:[address] [place] [address], [phone] * true * Date: Generated for Printi ng/Faxing/eTransmitting on: 0 12/17/2024 01:39 PM EDT
--- OUTSIDE RECORDS SUMMARY | 2024-12-12 02:00 | XMS_ITS | Continuity of Care Document ---
Author Organization [facility] Address [address] [place] [address] Phone Care Team Providers Care [employer] Name Role Phone Bonifacio Lara DO Attending Provider Peter Lozano DO Primary Care Provider Peter Lozano DO Attending Provider Care Teams Patient Care Team Team Status: Active Member Role Status Dates Peter Lozano DO Primary Care Provider Active Visit Care Team Team Status: Inactive Member Role Status Dates Bonifacio Lara DO Attending Provider Active Start: September 29, 2024 End: September 29, 2024 Visit Care Team Team Status: Inactive Member Role Status Dates Peter Lozano DO Primary Care Provide r, Attending Provider Active Start: December 05, 2024 End: December 05, 2024 Patient Care Team Team Status: Inactive Member Role Status Dates Peter Lozano DO Primary Care Provide r, Attending Provider Active Start: December 08, 2024 End: December 08, 2024 Chief Complaint and Reason for Visit Chief Complaint Admit Date L72.3 September 29, 2024 8:5 1am R73.03 R03.9 E78.5 K21.9 December 05, 2024 6:28am yearly check up/not a wellness December 08, 2024 12:26pm Reason for Visit Admit Date Hyperlipidemia December 08, 2024 12:26 pm Hypothyroidism December 08, 2024 12:26 pm Pre-diabetes December 08, 2024 12:26 pm Screening for breast cancer December 08 12:26pm Allergies, Adverse Reactions, Alerts Allergen Type Severity Reaction Last Updated Verified Status benzonatate Allergy Unknown diarrhea December 08, 2024 12:46pm Yes Active indomethacin Allergy Unknown ankle swelling December 08, 2024 12:46 pm Yes Active Social History Smoking Status Status Start Date End Date Date of Observa tion Ex-smoker (finding) September 09, 2024 2:29pm Observation Status Observation Response Date of Response Patient Sex Female December 08, 2024 1 :30pm Assigned Sex Female March, 1979 Family History Relationship Condition Age at Onset Recorded Date/T sarah mother Malignant neoplasm of uterus Unknown Problems Active Problems Medical Problem Onset Date Status Acute right flank pain Active Epiploic appendagitis Active Ground-level fall Active Lump Active Fatty liver Active Bilateral foot pain Active Cyst of right breast Active Umbilical hernia Active Hyperglycemia Active Hyperlipidemia Active Hypothyroidism Active Atypical chest pain Active Pyelonephritis Active Pyelonephritis Active DDD (degenerative disc disease), lumbosacral Active Body mass index 27.0-27.9, adult Active Pre-diabetes Active Knee pain, right Active Right elbow pain Active Screening for breast cancer Acti ve GERD (gastroesophageal reflux disease) Active Abdominal pain Active Elbow fracture, right Active Fall Active Asthma Active Fracture of radial neck, right, closed Active Diffuse cystic mastopathy of right breast Active Laceration of knee, left Active Inactive/Resolved Problems Medical Problem Onset Date Status Contusion of multiple sites Reso lved Medications Medication Status Dose Units Route Directions Qty Days St art Date Stop Date End Date Instructions Azithromycin (Zithromax) 250 mg tablet Discont inued 0 PO .COMPLEX November 30, 2023 12:00a m December 17, 2023 7:36a m For 250 mg dose pack: take 500 mg today (day 1), then 250 mg for 4 days (days 2-5) PO Prednisone 20 mg tablet Discont inued 20 MG PO .COMPLEX November 30, 2023 12:00a m December 17, 2023 7:36a m 20 mg orally BID X 5 DAYS, QD X 5 DAYS; Hydrocodone- Acetaminophe n 5-325 mg tablet Discont inued 1 TAB PO EVERY 4-6 HOURS as needed for Pain 28 December 18 2024 May 29th, 2024 9:39a m Hydrocodone- Acetaminophe n 5-325 mg tablet Discont inued 1 TAB PO EVERY 4-6 HOURS as needed for Pain 16 02December 19, 2023 December 19, 2023 12:03 pm Hydrocodone- Acetaminophe n 5-325 mg tablet Discont inued 1 TAB PO EVERY 4-6 HOURS as needed for Pain 16 02December 19, 2023 December 31, 2023 7:42a m Esomeprazole Magnesium (Nexium) 40 mg capsule,karmen yed release(DR/E C) Discont inued 40 MG PO Twice daily March 14, 2024 12:00a m 2023 4:43p m Ibuprofen 800 mg Tablet Discont inued 800 MG PO As Directed as needed for Pain 2017 12:00a m Augus t 2019 8:22p m Acetaminophe n-Codeine (Tylenol-Cod eine #3) 300-30 mg tablet Discont inued 1 - 2 TAB PO Q6H as needed for pain 30 5 2017 12:00a m [facility] 12[facility] am Ibuprofen 600 mg tablet Discont inued 600 MG PO Q8H as needed for pain March 12, 2020 12:00a m December 17, 2023 7:36a m Ibuprofen 800 mg tablet Discont inued 800 MG PO Three times daily as needed for Pain December 17, 2023 12:00a m February 13, 2024 3:12p m Hydrocodone- Acetaminophe n 5-325 mg tablet Discont inued 1 TAB PO EVERY 4-6 HOURS as needed for Pain 7 December 17, 2023 December 19, 2023 9:28a m Multivitamin With Minerals (Hair,Skin And Nails) tablet Discont inued 1 TAB PO Every morning January 15, 2024 12:00a m Augus t 2023 2:25p m Levothyroxin e 88 mcg tablet Discont inued 88 MCG PO Every morning January 15, 2024 12:00a m [facility] 2023 4:48p m Acetaminophe n-Codeine 300-30 mg tablet Discont inued 1 TAB PO EVERY 4-6 HOURS as needed for pain 20 5 January 29, 2024 12:00a m February 13, 2024 3:12p m Multivitamin With Minerals (Hair,Skin And Nails) tablet Active 1 TAB PO Every morning March 06, 2024 2:25pm Norgestimate -Ethinyl Estradiol (Sprintec (28)) 0.25-35 mg-mcg Tablet Discont inued 1 TAB PO Daily [facility] 2016 12:00a m February 08, 2021 10:37 am Levothyroxin e 25 mcg Tablet Discont inued 75 MCG PO Daily [facility] 2016 12:00a m December 19, 2023 2:04p m Albuterol Sulfate (Proventil Hfa) 90 mcg/actuatio n Hfa Aerosol Inhaler Discont inued 1 PUFF INHALA TION EVERY 4-6 HOURS as needed for Shortness Of Breath Or Wheezing [facility] 2016 12:00a m December 19, 2023 2:03p m Lactobacillu s Combination No.4 (Probiotic) 3 billion cell Capsule Discont inued 3000 MMU CELLS PO Daily [facility] 2016 12:00a m [facility] 2017 9:04a m Hydrocodone- Acetaminophe n ([place]) 5-325 mg tablet Discont inued 2 TAB PO EVERY 4-6 HOURS as needed for pain 30 [facility] 2016 12:00a m [facility] 2017 9:04a m Norgestimate -Ethinyl Estradiol ([place]) 0.25-35 mg-mcg tablet Discont inued 1 TAB PO Daily February 08, 2021 12:00a m December 19, 2023 2:04p m Omeprazole 40 mg capsule,karemn yed release(DR/E C) Discont inued 40 MG PO Daily February 08, 2021 12:00a m December 19, 2023 2:04p m Cephalexin 500 mg capsule Discont inued 500 MG PO Four times daily 40 February 08, 2021 12:00a m November 01, 2022 10:30 am Phenazopyrid ine (Pyridium) 200 mg tablet Discont inued 200 MG PO Three times daily as needed for pain February 08, 2021 12:00a m November 01, 2022 10:30 am administer with a full glass of water with each meal Ondansetron 4 mg tablet,disin tegrating Discont inued 4 MG PO Q6H as needed for nausea and vomiting February 08, 2021 12:00a m November 01, 2022 10:30 am Diclofenac Sodium 75 mg tablet,delay ed release (DR/EC) Discont inued 75 MG PO Twice daily as needed for pain November 01, 2022 12:00a m December 17, 2023 7:36a m Oxycodone-Ac etaminophen 5-325 mg tablet Discont inued 1 TAB PO Q6H as needed for pain 12 November 01, 2022 December 17, 2023 7:36a m Hydrocodone- Acetaminophe n 5-325 mg tablet Discont inued 1 TAB PO EVERY 4-6 HOURS as needed for Pain 28 December 31, 2023 February 13, 2024 3:12p m Esomeprazole Magnesium (Nexium) 40 mg capsule,karmen yed release(DR/E C) Active 40 MG PO Daily 90 Novemb er 2023 1:00am Levothyroxin e 88 mcg tablet Active 88 MCG PO Every morning 90 Novemb er 2023 4:44pm Cholecalcife rol (Vitamin D3) 25 mcg (1,000 unit) capsule Discont inued 1 CAP PO Daily December 19, 2023 12:00a m December 27, 2023 2:16p m FreeTextSi capsule Orally Once a day; Note: Source Status: Taking; Provider: Blake Green ( ) Diclofenac Sodium 75 mg tablet,delay ed release (DR/EC) Discont inued 75 MG PO Twice daily December 19, 2023 12:00a m December 27, 2023 2:17p m Tramadol 50 mg tablet Discont inued 50 MG PO December 19, 2023 12:00a m January 15, 2024 2:27p m Norgestimate -Ethinyl Estradiol 0.25-35 mg-mcg tablet Active 1 TAB PO Daily at bedtime December 19, 2023 12:00a m Levothyroxin e 88 mcg tablet Discont inued 88 MCG PO Daily December 19, 2023 12:00a m December 19, 2023 2:09p m Furosemide (Lasix) 40 mg tablet Discont inued 40 MG PO Daily December 19, 2023 12:00a m December 27, 2023 2:17p m FreeTextSi tablet Orally Once a day; Note: Source Status: Continueprn; Provider: Blake Liz Albuterol Sulfate (Proair Hfa) 90 mcg/actuatio n HFA aerosol inhaler Active 2 PUFF INHALA TION Every 4 hours December 19, 2023 12:00a m FreeTextSi puffs as needed Inhalation every 4 hrs; Note: Source Status: RefillPRN; Refills: 1; Provider: Blake Liz Ibuprofen 800 mg tablet Discont inued 800 MG PO Three times daily December 19, 2023 12:00a m December 27, 2023 2:17p m Omeprazole 40 mg capsule,karmen yed release(DR/E C) Discont inued 1 CAP PO Every morning December 19, 2023 12:00a m Augus t 2023 12:43 pm FreeTextSi capsule 30 minutes before morning meal Orally Once a day; Note: Source Status: Taking; Refills: 3; Provider: Blake Liz Potassium Chloride 10 mEq tablet,ER particles/cr ystals Discont inued 10 MEQ PO Daily December 19, 2023 12:00a m December 27, 2023 2:18p m Betamethason e Valerate 0.1 % cream Discont inued 1 APPLIC TOPICA L Twice daily December 19, 2023 12:00a m December 27, 2023 2:16p m FreeTextSi application Externally Twice a day; Note: Source Status: Taking; Refills: 0; Qty: 45 Gram; Provider: Blake Liz Lactobacillu s Combination No.9 (Adult 50 Plus Probiotic) 4 billion cell capsule Discont inued PO December 19, 2023 12:00a m December 27, 2023 2:17p m Multivitamin (Daily Multi-Vitami n) tablet Active 1 TAB PO Every morning December 19, 2023 12:00a m Levothyroxin e 88 mcg tablet Discont inued 88 MCG PO Daily December 19, 2023 2:08pm January 15, 2024 2:28p m Baclofen 10 mg tablet Active 10 MG PO Twice daily as needed December 08, 2024 12:00a m Meloxicam 7.5 mg tablet Active 7.5 MG PO Twice daily as needed December 08, 2024 12:00a m Meclizine 25 mg tablet Active 25 MG PO Every 6 hours as needed for motion sickness December 08, 2024 12:00a m Immunizations Immunization Event Date Not Given Reason Dose Number Business Initiatives Manager Lot Number Vaccine Information Statement (VIS) Detail Quadrivalent Influenza June 07, 2022 Tetanus, Diphtheria, Pertussis (Tdap) February 18, 2018 Tetanus, Diphtheria, Pertussis (Tdap) December 17, 2023 [id number] Medical Equipment Device Date Implanted Device Details MESH FLAT SHEET [id number] April 24, 2017 Relevant Diagnostic Tests and/or Laboratory Data Laboratory Results Test Date/Time Result Interpretation Reference Range Result Comment Performing Site Corrected White Blood Count December 05, 2024 6:52am 7.1 10*3/uL 3.8-11.6 [facility] [id number] [address] [place] [address] Uncorrected WBC Count December 05, 2024 6:52am 7.1 10*3/uL 3.8-11.6 [facility] [id number] [address] [facility] [address] Red Blood Count December 05, 2024 6:52am 4.14 10*6/uL 3.60-5.00 [facility] [id number] [address] [facility] [address] Hemoglobin December 05, 2024 6:52am 12.1 g/dL 11.8-15.4 [facility] [id number] [address] [facility] [address] Hematocrit December 05, 2024 6:52am 36.1 % 34.0-46.4 [facility] [id number] [address] [facility] [address] Mean Corpuscular Volume December 05, 2024 6:52am 87.0 fL 80-100 [facility] [id number] [address] [place] [id number] Mean Corpuscular Hemoglobin December 05, 2024 6:52am 29.1 pg 24.7-34.3 [facility] [id number] [address] [facility] [address] Mean Corpuscular Hemoglobin Concent December 05, 2024 6:52am 33.5 g/dL 32.0-35.0 [facility] [id number] [address] [facility] [address] Red Cell Distribution Width December 05, 2024 6:52am 12.7 % 11.9-15.3 [facility] [id number] [address] [facility] [address] Platelet Count December 05, 2024 6:52am 296 10*3/uL 150-450 [facility] [id number] [address] [facility] [address] Mean Platelet Volume December 05, 2024 6:52am 7.7 fL 6.3-10.7 [facility] [id number] [address] [facility] [address] Neutrophils (%) (Auto) December 05, 2024 6:52am 66.4 % . [facility] [id number] [address] [facility] [address] Lymphocytes (%) (Auto) December 05, 2024 6:52am 23.9 % . [facility] [id number] [address] [facility] [address] Monocytes (%) (Auto) December 05, 2024 6:52am 7.2 % . [facility] [id number] [address] [facility] [address] Eosinophils (%) (Auto) December 05, 2024 6:52am 1.7 % . [facility] [id number] [address] [facility] [address] Basophils (%) (Auto) December 05, 2024 6:52am 0.8 % . [facility] [id number] [address] [facility] [address] Nucleated RBC Relative Count (auto) December 05, 2024 6:52am 0.0 /100{WB C} 0-0.5 [facility] [id number] [address] [facility] [address] Neutrophils # (Auto) December 05, 2024 6:52am 4.7 10*3/uL 1.8-7.7 [facility] [id number] [address] [place] [id number] Lymphocytes # (Auto) December 05, 2024 6:52am 1.7 10*3/uL 1.00-4.8 [facility] [id number] [address] [place] [id number] Monocytes # (Auto) December 05, 2024 6:52am 0.5 10*3/uL 0.0-0.8 [facility] [id number] [address] [place] [id number] Eosinophils # (Auto) December 05, 2024 6:52am 0.1 10*3/uL 0.0-0.45 [facility] [id number] [address] [place] [id number] Basophils # (Auto) December 05, 2024 6:52am 0.1 10*3/uL 0.0-0.2 [facility] [id number] [address] [place], [place] [address] Glucose Level December 05, 2024 6:52am 98 mg/dL 70-100 ADA recommended reference rangeRandom Glucose Reference Range is dependent on time and content of last meal. Glucose of more than 200 mg/dL in a nonstressed, ambulatory subject supports the diagnosis of Diabetes Mellitus. [facility] [id number] [address] [place], [place] [address] Blood Urea Nitrogen December 05, 2024 6:52am 16 mg/dL 7-25 [facility] [id number] [address] [place], [place] [address] Creatinine December 05, 2024 6:52am 0.50 mg/dL Below low normal 0.60-1.20 [facility] [id number] [address] [place], [place] [address] Estimated GFR (CKD-EPI) December 05, 2024 6:52am > 60.0 mL/Min [facility] [id number] [address] [place], [place] [address] Sodium Level December 05, 2024 6:52am 139 mmol/L 136-145 [facility] [id number] [address] [place], [place] [address] Potassium Level December 05, 2024 6:52am 4.4 mmol/L 3.5-5.1 [facility] [id number] [address] [facility] [address] Chloride Level December 05, 2024 6:52am 105 mmol/L 98-107 [facility] [id number] [address] [place] [id number] Carbon Dioxide Level December 05, 2024 6:52am 29.8 mmol/L 21.0-31.0 [facility] [id number] [address] [facility] [address] Anion Gap December 05, 2024 6:52am 8.6 mEq/L 6.0-15.0 [facility] [id number] [address] [place] [id number] Calcium Level December 05, 2024 6:52am 8.5 mg/dL Below low normal 8.6-10.3 [facility] [id number] [address] [place], [place] [address] Total Protein December 05, 2024 6:52am 6.0 g/dL Below low normal 6.4-8.9 [facility] [id number] [address] [place] [address] Albumin December 05, 2024 6:52am 3.7 g/dL 3.5-5.7 [facility] [id number] [address] [place] [address] Globulin December 05, 2024 6:52am 2.3 g/dL [facility] [id number] [address] [place], [place] [address] Albumin/Globuli n Ratio December 05, 2024 6:52am 1.6 [facility] [id number] [address] [place], [place] [address] Total Bilirubin December 05, 2024 6:52am 0.3 mg/dL 0.3-1.0 [facility] [id number] [address] [place] [id number] Aspartate Amino Transf (AST/SGOT) December 05, 2024 6:52am 12 U/L Below low normal 13-39 [facility] [id number] [address] [place], [place] [address] Alanine Aminotransferas e (ALT/SGPT) December 05, 2024 6:52am 6 U/L Below low normal 7-52 [facility] [id number] [address] [place], [place] [address] Alkaline Phosphatase December 05, 2024 6:52am 42 U/L 34-104 [facility] [id number] [address] [facility] [address] Cholesterol Level December 05, 2024 6:52am 151 mg/dL 140-200 Chol less than 200 mg/dl low riskChol 201-239 mg/dl borderline riskChol 240 mg/dl and greater high risk [facility] [id number] [address] [facility] [address] HDL Cholesterol December 05, 2024 6:52am 50 mg/dL 23-92 HDL CHOL ATP-III CLASSIFICATION Cardiovascular RiskHDL > or equal to 60 mg/dL LOWHDL < 40 mg/dL HIGH [facility] [id number] [address] [facility] [address] Triglycerides Level December 05, 2024 6:52am 83 mg/dL 0-149 TRIG ATP III CLASSIFICATIONTRI G less than 150 mg/dL NormalTRIG 150-199 mg/dL Borderline highTRIG 200-500 mg/dL High TRIG greater than 500 mg/dL Very highStandard traceable to the Center for Disease Conrtrol and Prevention (CDC) test method. [facility] [id number] [address] [facility] [address] LDL Cholesterol, Calculated December 05, 2024 6:52am 84 mg/dL 0-100 LDL ATP III CLASSIFICATIONLDL less than 100 mg/dL OptimalLDL 100-129 mg/dL Near or above optimalLDL 130-159 mg/dL Borderline highLDL 160-189 mg/dL HighLDL greater than 189 mg/dL Very high [facility] [id number] [address] [facility] [address] VLDL Cholesterol December 05, 2024 6:52am 16 mg/dL [facility] [id number] [address] [facility] [address] Cholesterol/HDL Ratio December 05, 2024 6:52am 3.0 <5.0 [facility] [id number] [address] [facility] [address] Free Thyroxine December 05, 2024 6:52am 1.01 ng/dL 0.61-1.12 [facility] [id number] [address] [facility] [address] Thyroid Stimulating Hormone 3rd Gen December 05, 2024 6:52am 0.30 u[iU]/m L Below low normal 0.45-5.33 [facility] [id number] [address] [place], [place] [address] Pharmacy Creatinine Clearance (Chem December 05, 2024 6:52am N/A [facility] [id number] [address] [place], [place] [address] Hemoglobin A1c December 05, 2024 6:52am 5.7 % Above high normal 4.3-5.6 Increased risk for diabetes: 5.7 - 6.4diabetes: >6.4glycemic control for adults with diabetes: <7.0 [facility] [id number] [address] [place] [address] Estimated Average Glucose December 05, 2024 6:52am 117 mg/dL [facility] [id number] [address] [place], [place] [address] Vital Signs Vital Reading Result Reference Range Collection Date/Time Height 72 [in_i] December 08, 2024 12:48pm Weight 91.62 kg December 08, 2024 12:48pm Heart Rate 76 /min 60-100 December 08, 2024 12:48pm Respiratory rate 18 /min 12-24 December 08, 2 025 12:48pm Oxygen saturation by Pulse oximetry 96 % 95-10 0 December 08, 2024 12:48pm BP Systolic 118 mm[Hg] 100-140 December 08, 2024 12:48pm BP Diastolic 74 mm[Hg] 60-100 December 08, 2024 12:48pm BMI (Body Mass Index) 27.3 kg/m2 December 082024 12:48pm Advance Directives Advance Directive Response Recorded Date/ Time Advance Directives No March 3:21pm Insurance Providers Guarantor Darling Ohara Address [address] [place] [address] [address] [facility] [id number] Contact Info. Home Phone: Payer Policy Id Coverage Id Subscriber's Name Subscriber Id Effective Date Expiration Date [facility] Medicaid [id number] Darling Ohara [id number] Encounters Encounter Location(s) Arrival/Admit Date Discharge/Depart Date Provider(s) Departed Referred [facility] September 29, 2024 8:51am September 29, 2024 8:52am Bonifacio Lara DO Departed Clinical [facility] December 05, 2024 6:28am December 05, 2024 6:29am Agusto Gamez DO Departed Physician/Prov ider Office Visit [facility] [place] December 08, 2024 12:26pm December 08, 2024 1:29pm Agusto Gamez DO Recent Diagnosis Onset Date Admit Date Hyperlipidemia December 08, 2024 1 2:26pm Hypothyroidism December 08, 2024 1 2:26pm Pre-diabetes December 08, 2024 1 2:26pm Screening for breast cancer December 08, 2024 12:26pm Assessments Author Mercedes Ricketts [facility] Authored December 08, 2024 12:48 pm Sooner if needed, the ER if concerns,The above note written by Mercedes Ricketts LPN acting as human recorder, note dictated by Dr. Peter Lozano Plan of Treatment Author Mercedes Ricketts [facility] Authored December 08, 2024 1:24p m Blood work reviewed, no sign s of anemia or leukemia noted. Renal function, liver enzymes, and electrolytes are satisfactory. Cholesterol overall is low and looks great currently. She is to monitor her diet and stay active as tolerated. Thyroid levels reviewed with the patient, Free T4 is within normal range at 1.01. Encouraged she continue current dose. Glucose is 98 with a hgb a1c of 5.7%. Encouraged she monitor diet. Mammogram order provided, patient was agreeable with updating. Future Tests Future scheduled test information is unavailable Pending Tests Test Name Ordered Date Scheduled Date Comprehensive Metabolic Panel December 08, 2024 1:2 5pm 5 Months MM screening mammo BI w/CAD December 08, 2024 12:50 pm Future Visits Future appointment information is unavailable Referrals to Other Providers Referral information is unavailable Future Procedures Procedure Name Ordered Date Scheduled Date A1C with Estimated Average Glu December 08, 2024 1: 25pm 5 Months Complete Blood Count Auto Diff December 08, 2024 1: 25pm 5 Months Lipid Panel December 08, 2024 1:25pm 5 Months Free T4 (Free Thyroxine) December 08, 2024 1:25pm 5 Months Thyroid Stimulating Hormone December 08, 2024 1:25p m 5 Months Future Medications Future medication information is unavailable Patient Instructions Patient instructions are unavailable
--- OUTSIDE RECORDS SUMMARY | 2024-12-17 13:38 | XMS_ITS | Encounter Summary ---
Author Organization [facility] Address [address] [place] [address] Care Team Providers Care Candle Wrapping Machine Operator Name Role Phone Peter Lozano DO Primary Care Provider [phone] Encounter Details Date Type Department Care Team (Late st Contact Info) Description 02/28/[address] [facility] [address] [place] [id number] Peter Lozano DO [address] [place] [id number] Social History Tobacco Use Types Packs/Day Years Used Date Smoking Tobacco: Former Cigarettes Q uit: 06/22/2006 Smokeless Tobacco: Never Comments:Quit smoking 10 yea rs ago Alcohol Use Standard Drinks/Week Comments Not Currently 0 (1 standard drink = 0.6 oz pur e alcohol) caffeine 1-2 cups/day Comments Unknown Sex and Gender Information Value Date Recorded Sex Assigned at Female 01/18/2023 8:37 AM EDT Legal Sex Female 7:07 PM EDT Gender Identity Female 01/18/2023 8:37 AM EDT Sexual Orientation Straight 01/18/2023 8: 37 AM EDT documented as of this encounter Plan of Treatment Not on file documented as of this encounter Procedures Procedure Name Priority Date/Time Associated Diagnosis Comments ULTRASOUND : BREAST, LEFT Routine 02/28/2024 3:03 PM EDT MAMMOGRAM, BILATERAL, SCREEN:* Routine 02/28/2024 3:01 PM EDT documented in this encounter Results * ULTRASOUND : BREAST, LEFT (02/28/2024 3:03 PM EDT) Anatomical Region Laterality Modality Radiographic Cristiane ging Peter Lozano DO IMG XR PROCEDURES Final Result * MAMMOGRAM, BILATERAL, SCREEN:* (02/28/2024 3:01 PM EDT) Anatomical Region Laterality Modality Radiographic Cristiane ging Peter Lozano DO IMG XR PROCEDURES Final Result documented in this encounter Visit Diagnoses Not on filedocumented in this encounter Care Teams Candle Wrapping Machine Operator Relationship Specialty Start Date End Date Peter Lozano DO PCP - General 01/25/23 documented as of this encounter
--- OUTSIDE RECORDS SUMMARY | 2024-12-17 13:39 | XMS_ITS | Patient Health Record ---
Author Organization [facility] Address [address] [place] [address] [place] [address] Care Team Providers Care Hammer Heater Name Role Phone Guillermo Lozano DO Primary Care Provider UnavailDylan Zaragoza Unavailable [phone] Reason For Referral No Information Problems Problem Type SNOMED Code ICD Code Onset Dates Problem Status W/U Status Risk Notes Problem Plantar wart (79780082) Plantar wart (078.12) Active confirmed Problem Pain in limb (66473261) Pain in soft tissues of limb (729.5) Active confirmed Plan Of Treatment No Information Medical (General) History Medical History History ICD Code asthma fractured jaw Surgical History Surgery Date(Month/Year) jaw
--- OUTSIDE RECORDS SUMMARY | 2024-12-17 13:39 | XMS_ITS | Clinical Summary ---
Author Organization [facility] Address [address] [place] [address] Care Team Providers Care Fire Dispatcher Name Role Phone Peter Lozano DO Primary Care Provider [phone] Allergies Active Allergy Reactions Criticality Noted Date Comments Benzonatate GI intolerance 01/25/2023 Indomethacin Swelling 05/10/2018 Medications omeprazole (PriLOSEC) [address] capsule TAKE 1 CAPSULE BY MOUTH EVERY DAY 30 MINUTES BEFORE MORNING MEAL 12/19/2022 Active Mary Lou 0.25-35 MG-MCG tablet Take 1 tablet by mouth in the morning. 11/11/2022 Active ibuprofen 800 MG tablet TAKE 1 TABLET BY MOUTH THREE TIMES A DAY WITH FOOD OR MILK NEEDED 10/20/2022 Active albuterol HFA (Proventil HFA) 90 mcg/act inhaler every 4 (four) hours. Active Multiple Vitamin (multivitamin) tablet Take 1 tablet by mouth in the morning. Active traMADol (Ultram) 50 MG tablet TAKE 1 TABLET BY MOUTH FOUR TIMES A DAY NEEDED 06/08/2023 Active levothyroxine (Synthroid, Levoxyl) 88 MCG tablet TAKE 1 TABLET BY MOUTH EVERY DAY IN THE MORNING ON EMPTY STOMACH FOR 90 DAYS 09/11/2023 Active HYDROcodone-nury taminophen ([place]) 5-325 MG tablet TAKE 1 TABLET BY MOUTH EVERY 4-6 HOURS NEEDED FOR PAIN FOR 7 DAYS 12/31/2023 Active Active Problems Problem Noted Date Diagnosed Date Sebaceous cyst 09/10/2024 Ventral hernia without obstruction or gangrene 0 02/07/2024 Periumbilical abdominal pain 12/12/2023 Breast cyst, left 03/07/2023 Abnormal findings on diagnostic imaging of breas t 01/25/2023 Cyst of left breast 01/25/2023 Cyst of right breast 01/25/2023 Other chronic pain 01/25/2023 Peroneal tendinitis 01/25/2023 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 Umbilical hernia without obstruction and without gangrene 01/25/2023 Pain in right foot 11/26/2017 Chronic pain of right knee 11/12/2017 Encounters Date Type Department Care Team Description 10/13/2024 1:15 PM EDT Office Visit [facility] [address] [place] [address] Bonifacio Lara DO Sebaceous cyst (Primary Dx) 10/13/2024 Travel 10/01/[address] [facility] [address] [place] [address] Bonifacio Lara DO from Last 3 Months Immunizations Immunization Administration Dates Next Due Tdap 02/18/2018 Family History Medical History Relation Name Comments Uterine cancer Mother Hypertension Other Thyroid disease Other Breast cancer Neg Hx Colon cancer Neg Hx Ovarian cancer Neg Hx Pancreatic cancer Neg Hx Relation Name Status Comments Brother 4 Alive 4 Father Alive Mother Alive Other Social History Tobacco Use Types Packs/Day Years Used Date Smoking Tobacco: Former Cigarettes Q uit: 06/22/2006 Smokeless Tobacco: Never Tobacco Cessation:Counseling Given: Not Answered Comments:Quit smoking 10 years ago Alcohol Use Standard Drinks/Week Comments Not Currently 0 (1 standard drink = 0.6 oz pur e alcohol) caffeine 1-2 cups/day Comments Unknown Sex and Gender Information Value Date Recorded Sex Assigned at Female 01/18/2023 8:37 AM EDT Legal Sex Female 7:07 PM EDT Gender Identity Female 01/18/2023 8:37 AM EDT Sexual Orientation Straight 01/18/2023 8: 37 AM EDT Last Filed Vital Signs Vital Sign Reading Time Taken Comments Blood Pressure 120/70 09/10/2024 3:25 PM EST Pulse - - Temperature - - Respiratory Rate - - Oxygen Saturation - - Inhaled Oxygen Concentration - - Weight 93 kg (205 lb) 09/10/2024 3:25 PM EST Height 182.9 cm (6') 09/10/2024 3:25 PM EST Body Mass Index 27.8 09/10/2024 3:25 PM EST Plan of Treatment Not on file Procedures Procedure Name Priority Date/Time Associated Diagnosis Comments GENERAL PATHOLOGY Routine 10/01/2024 2:40 PM EDT from Last 3 Months Results * GENERAL PATHOLOGY (10/01/2024 2:40 PM EDT) Bonifacio Lara DO [facility] Final Res ult from Last 3 Months Insurance # [address] [place] [address] [employer] Care Teams Fire Dispatcher Relationship Specialty Start Date End Date Peter Lozano DO PCP - General 01/25/23
--- OUTSIDE RECORDS SUMMARY | 2024-12-17 13:39 | XMS_ITS | Encounter Summary ---
Author Organization [facility] Address [address] [place] [address] Care Team Providers Care Sugarcane Planter Name Role Phone Peter Lozano DO Primary Care Provider [phone] Encounter Details Date Type Department Care Team (Late st Contact Info) Description 10/01/[address] [facility] [address] [place] [phone] Bonifacio Lara DO [address] [place] [address] Social History Tobacco Use Types Packs/Day Years [...] GENERAL PATHOLOGY Routine 10/01/2024 2:40 PM EDT documented in this encounter Results * GENERAL PATHOLOGY (10/01/2024 2:40 PM EDT) us Bonifacio Lara DO [facility] Final Res ult documented in this encounter Visit Diagnoses Not on filedocumented in this encounter Care Teams Sugarcane Planter Relationship Specialty Start Date End Date Peter Lozano DO PCP - General 01/25/23 documented as of this encounter
--- OUTSIDE RECORDS SUMMARY | 2024-12-17 13:40 | XMS_ITS | Encounter Summary ---
Author Organization [facility] Address [address] [place] [address] Care Team Providers Care Due Diligence Coordinator Name Role Phone Peter Lozano DO Primary Care Provider [phone] Encounter Details Date Type Department Care Team (Late st Contact Info) Description 12/31/2023 External Result Encounter [facility] External Department Unsolicited Bonifacio Lara DO [address] [place] [address] Social History Tobacco Use Types Packs/Day Years [...] Procedure Name Priority Date/Time Associated Diagnosis Comments US ABDOMEN LIMITED 12/31/2023 12 :06 PM EDT documented in this encounter Results * US abdomen limited (12/31/2023 12:06 PM EDT) Anatomical Region Laterality Modality Abdomen Ultrasound 12/31/2023 12:0 6 PM EDT Impressions 12/31/2023 12:16 PM EDT SMALL UMBILICAL/PERIUMBILICAL HERNIA CONTAINING FAT. APPEARANCE IS SIMILAR TO THE COMPARISON CT. Impression dictated by: Ayleen Zheng M.D.12/31/2023 12:14 PM Dictation Location: [place] [address] Tech: Nellie Solis Transcribed By: ADIA 12/31/23 1214 Dictated By: Ayleen Zheng MD 12/31/23 1206 Signed By: <Electronically signed by MD Ayleen Zheng in OV> 12/31/23 1214 Narrative 12/31/2023 12:16 PM EDT [facility] [place] [address] Ultrasound Report Signed Patient: Darling Ohara MR#: [id number] : 1980 Acct:[id number] Age/Sex: 43 / F ADM Date: 12/31/23 Loc: Room: Type: [facility] Attending Dr: Bonifacio Lara DO Ordering Provider: Bonifacio Lara DO Date of Service: 12/31/23 US/US abdomen limited: R10.33 Copies to: Bonifacio Lara DO LIMITED ABDOMINAL ULTRASOUND - periumbilical: CLINICAL [...] patient's prior CT studies. US/US abdomen limited Procedure Note Radiology, Radiologist, - 12/31/2023 [facility] [place] [address] [place] [address] Ultrasound Report Signed Patient: Darling Ohara LMR#: [id number] : 1980Acct:[id number] Age/Sex: 43 / FADM Date: 12/31/23 Loc: Room:Type: [facility] Attending Dr: Bonifacio Lara DO Ordering Provider: Bonifacio Lara DO Date of Service: 12/31/23 US/US abdomen limited: R10.33 Copies to: Bonifacio Lara DO LIMITED ABDOMINAL ULTRASOUND - periumbilical: CLINICAL HISTORY: Prior history of umbilical hernia repair. Abdominalpain just above the umbilicus COMPARISON: CT 11/01/2022 and 02/15/2001 Real-time ultrasound evaluation of the abdominal wall in the supraumbilical region was performed in the supine and erect, with and without Valsalva. Just above theumbilicus, there is a hypoechoic protrusion at the abdominal wall at the site of clinical concern. Thismeasures under a centimeter in depth and approximately 3 cm in width. This could relate to diastasesof the rectus and/or small ventral hernia containing fat. This does not change with Valsalva nor isthere evidence of herniation of bowel into this site. Appearance correlates with patient'sprior CT studies. US/US abdomen limited IMPRESSION: SMALL UMBILICAL/PERIUMBILICAL HERNIA CONTAINING FAT. APPEARANCE ISSIMILAR TO THE COMPARISON CT. Impression dictated by: Ayleen Zheng M.D.12/31/2023 12:14 PM Dictation Location: [place] [address] Tech: Transcribed By: [facility] 12/31/23 1214 Dictated By: Ayleen Zheng MD 12/31/23 1206 Signed By: <Electronically signed by MD Ayleen Zheng in OV> 12/31/23 1214 us Bonifacio Lara DO IMG US PROCEDURES Final R esult documented in this encounter Visit Diagnoses Not on filedocumented in this encounter Care Teams Due Diligence Coordinator Relationship Specialty Start Date End Date Peter Lozano DO PCP - General 01/25/23 documented as of this encounter
--- OUTSIDE RECORDS SUMMARY | 2024-12-17 13:40 | XMS_ITS | Encounter Summary ---
Author Organization [facility] Address [address] [place] [address] Phone Care Team Providers Care Electrician Apprentice Name Role Phone Guillermo Lozano DO Primary Care Provider [phone] Encounter Details Date Type Department Care Team (Late st Contact Info) Description 02/22/2023 Patient Risk Score ACO Care Management [address] [place] [address] Social History Tobacco Use Types Packs/Day Years Used Date Smoking Tobacco: Never Assessed Comments Unknown Sex and Gender Information Value Date Recorded Sex Assigned at Not on file Legal Sex Female 11:36 AM EST Gender Identity Not on file Sexual Orientation Not on file documented as of this encounter Plan of Treatment Not on file documented as of this encounter Visit Diagnoses Not on filedocumented in this encounter Care Teams Electrician Apprentice Relationship Specialty Start Date End Date Guillermo Lozano DO PCP - General 11/30/15 documented as of this encounter
--- OUTSIDE RECORDS SUMMARY | 2024-12-17 13:40 | XMS_ITS | Clinical Summary ---
Author Organization [facility] Address [address] [place] [address] Phone Care Team Providers Care Pattern Assembler Name Role Phone AcGuillermo silva Esteban HOOVER Primary Care Provider [phone] Social History Tobacco Use Types Packs/Day Years Used Date Smoking Tobacco: Never Assessed Comments Unknown Sex and Gender Information Value Date Recorded Sex Assigned at Not on file Legal Sex Female 11:36 AM EST Gender Identity Not on file Sexual Orientation Not on file Plan of Treatment Health Maintenance Due Date Last Done Comments HIV Screening 1980 Lipid Panel 1982 Yearly Adult Physical 1980 MMR Vaccines (1 of 1 - Stand audie series) 1983 Varicella Vaccines (1 of 2 - 13+ 2-dose series) 1995 Hepatitis C Screening 2000 Hepatitis B Vaccines (1 of 3 - 19+ 3-dose series) 2001 HPV/Cotest 2003 DTaP/Tdap/Td Vaccines (1 - Tdap) 2004 Mammogram 2022 Cervical Cancer Screening 12/29/2022 Pap Smear 12/29/2022 12/30/2019 COVID-19 Vaccine (1 - 2023-2 5 season) 2024 Influenza Vaccine (Season Ended) 2025 Zoster Vaccines (1 of 2) 2032 HIB Vaccines Aged Out No longer eligi ble based on patient's age to complete this topic HPV Vaccines Aged Out No longer eligi ble based on patient's age to complete this topic Hepatitis A Vaccines Aged Out No long er eligible based on patient's age to complete this topic IPV Vaccines Aged Out No longer eligi ble based on patient's age to complete this topic Meningococcal Vaccine Aged Out No matty [place] eligible based on patient's age to complete this topic Pneumococcal Vaccine: Pediat rics and At-Risk Adult Patients Aged Out No longer nikunj gible based on patient's age to complete this topic Rotavirus Vaccines Aged Out No longer eligible based on patient's age to complete this topic Care Teams Pattern Assembler Relationship Specialty Start Date End Date Guillermo Lozano DO PCP - General 11/30/15
--- OUTSIDE RECORDS SUMMARY | 2024-12-17 13:40 | XMS_ITS | Encounter Summary ---
Author Organization [facility] Address [address] [place] [address] Care Team Providers Care Features Editor Name Role Phone Peter Lozano Primary Care Provider [phone] Source Comments In the event this information is protected by the Federal Confidentiality of Alcohol and Drug AbusePatient Records regulations: The Federal rules restrict any use of the information to criminally investigate or prosecute any alcohol or drug abuse patient.[facility] Encounter Details Date Type Department Care Team (Late st Contact Info) Description 03/29/2021 Patient Msg General Surgery [address] [place] [id number] Provider, [facility] Appointment on 04/07 Social History Tobacco Use Types Packs/Day Years Used Date Smoking Tobacco: Former Cigarettes Q uit: 2006 Smokeless Tobacco: Never Comments:Smoked 1 pack a wee k, quit in 2005, can't remember start date Alcohol Use Standard Drinks/Week Comments Yes 0 (1 standard drink = 0.6 oz pur e alcohol) occ Area Deprivation Index Answer Date Medhat rded National Score (1-100), lower number is lower ri sk Not on file 06/30/2020 State Score (1-10), lower number is lower risk N ot on file 06/30/2020 Data from: https://www.neighborhoodatlas.medicine.[facility].edu/. Last address used for calculation Not on file 06/30/2020 Comments Unknown Sex and Gender Information Value Date Recorded Sex Assigned at Not on file Legal Sex Female 3:38 PM EDT Gender Identity Not on file Sexual Orientation Not on file COVID-19 Exposure Response Date Recorded In the last month, have you been in contact with someone who was confirmed or suspected to have Coronavirus / COVID-19? No / Unsure 03/03/2021 9:47 AM EDT documented as of this encounter Plan of Treatment Not on file documented as of this encounter Visit Diagnoses Not on filedocumented in this encounter Care Teams Features Editor Relationship Specialty Start Date End Date Peter Lozano [place] [address] PCP - General Family Medicine 11/22/15 documented as of this encounter
--- OUTSIDE RECORDS SUMMARY | 2024-12-17 13:40 | XMS_ITS | Encounter Summary ---
Author Organization [facility] Address [address] [place] [address] Phone Care Team Providers Care Lawn Sprinkler Installer Name Role Phone Guillermo Lozano DO Primary Care Provider [phone] Encounter Details Date Type Department Care Team (Late st Contact Info) Description 01/22/2023 Patient Risk Score ACO Care Management [address] [place] [address] Social History Tobacco Use Types [...] on filedocumented in this encounter Care Teams Lawn Sprinkler Installer Relationship Specialty Start Date End Date Guillermo Lozano DO PCP - General 11/30/15 documented as of this encounter
--- OUTSIDE RECORDS SUMMARY | 2024-12-17 13:40 | XMS_ITS | Patient Health Record ---
Author Organization The [facility] in [place] Address [address] [place] [address] Care Team Providers Care Cooling System Operator Name Role Phone Peter Lozano DO Primary Care Provider Robert Wade [phone] Allergies No Known Allergies Results Component Value Reference Range Notes XR foot KG min 3V (Not yet reviewed by provider) Interpretation: Performing Lab: Notes/Report: Source Facility: [place] [address] XRay Report Signed Patient: Des Ohara MR#: [id number] : 1980 Acct:[id number] Age/Sex: 43 / F ADM Date: 03/25/24 Loc: EC Attending Dr: Robert Kent D.P.M. Ordering Physician: Robert Kent D.P.M. Date of Service: 03/25/24 Procedure(s): XR foot KG min 3V Accession Number(s): [id number] cc: Robert Kent D.P.M.; Physician,Non-Staff MBrittanie [facility] [place] [address] Patient Name: DES OHARA MRN: [id number] date: 1980 Sex: F Assigned Patient Location: Current Patient Location: Accession/Order Number: [id number] Exam Date: 03/25/2024 13:45 Report Date: 03/26/2024 08:38 At the request of: ROBERT KENT Procedure: XR foot KG min 3V EXAM: XR foot KG min 3V HISTORY: BILATERAL HEEL PAIN COMPARISON: None. TECHNIQUE: Routine views of the bilateral feet were obtained. FINDINGS/IMPRESSION: 1. There is no radiographic evidence of an acute fracture or subluxation. 2. Early changes of osteoarthritis seen at the bilateral interphalangeal joints of the toes as demonstrated by joint space narrowing and marginal spurring. 3. Bilateral plantar calcaneal spurring is seen. Electronically authenticated by: MARGARET BOWEN Date: 03/26/2024 08:38 Dictated By: Margaret Bowen M.D. Signed By: 03/26/24840 DD/ 7 TD/TT: Centrifugal Extractor Operator: [place] [address] XRay Report Signed Patient: Teresa Ohara MR#: [id number] : 1980 Acct:[id number] Age/Sex: 43 / F ADM Date: 03/25/24 Loc: EC Attending Dr: Robert Kent D.P.M. Ordering Physician: Robert Kent D.P.M. Date of Service: 03/25/24 Procedure(s): XR anjelica t KG min 3V Accession Number(s): [id number] cc: Robert Kent D.P.M.; Physician,Non-Staff [place] [id number] Patient Name: DES OHARA MRN: [id number] date: 1980 Sex: F Assigned Patient Location: Current Patient Location: Accession/Order Numb er: [id number] Exam Date: 03/25/2024 13:45 Report Date: 03/26/2024 08:38 At the request of: ROBERT KENT Procedure: XR foot KG min 3V EXAM: XR foot KG min 3V HISTORY: BILATERAL HEEL PAIN COMPARISON: None. TECHNIQUE: Routine v iews of the bilateral feet were obtained. FINDINGS/IMPRESSION: 1. There is no radio graphic evidence of an acute fracture or subluxation. 2. Early changes of osteoarthritis seen at the bilateral interphalangeal joints of the toes as demon strated by joint space narrowing and marginal spurring. 3. Bilateral plantar calcaneal spurring is seen. Electronically authe nticated by: AMRGARET BOWEN Date: 03/26/2024 08:38 Dictated By: Margaret Bowen M.D. Signed By: 03/26/24840 DD/ 7 TD/TT: Centrifugal Extractor Operator: Reason For Referral Reason evaluation and treat ment -- see attached order Diagnosis 1 Right foot pain (M79 .671) Referral Organization [facility] ([facility]) Referring Provider First Name Robert Referring Provider Last Name [facility] Referring Provider Speciality Podiatry Referred Provider [facility] Referred Provider Specialty Physical Med icine and Rehabilitation Referral Priority Routine Reason BLE EMG Diagnosis 1 Sciatica, left side (M54.32) Referral Organization [facility] ([facility]) Referring Provider First Name Robert Referring Provider Last Name [facility] Referring Provider Speciality Podiatry Referred Provider [facility] Referred Provider Specialty Neurology Referral Priority Routine Reason Referral to [facility] PT Diagnosis 1 Plantar fascial fibr omatosis (M72.2) Referral Organization [facility] ([facility]) Referring Provider First Name Robert Referring Provider Last Name [facility] Referred Provider Specialty Physical [facility] Referral Priority Routine Reason Referral to linden Schmid Diagnosis 1 Plantar fascial fibr omatosis (M72.2) Referral Organization [facility] ([facility]) Referring Provider First Name Robert Referring Provider Last Name Yoli Referring Provider Speciality Podiatry Referred Provider Specialty Pain Medicin e Referral Priority Routine Medications Medication SIG (Take, Route, Frequency, Duration) Notes Start Date End Date Status Esomeprazole Magnesium 40 MG 1 capsule O rally Once a day Active Levothyroxine Sodium 88 MCG 1 tablet in the morning on an empty stomach Orally Once a day Active methylPREDNISolone 4 MG as directed Orally 024 Active Meloxicam 15 MG TAKE 1 TABLET BY BAYLEE TH EVERY DAY for 30 Active Mary Lou 0.25-35 MG-MCG 1 tablet Orally Once a day Active Centrum Active Social History Tobacco Use: Social History Observation Description Date Details (start date - stop date) Former Smoker NA - NA Tobacco Control (Standard) Question Answer Notes Tobacco use: Former smoker Problems Problem Type SNOMED Code ICD Code Onset Dates Problem Status W/U Status Risk Notes Problem 69907096 Other specified acquired deformities of right lower leg (M21.861) Active confirmed Problem 683374550 Other specified acquired deformities of left lower leg (M21.862) Active confirmed Problem 643573098 Contracture, right ankle (M24.571) Active confirmed Problem 921293594 Contracture, left ankle (M24.572) Active confirmed Problem 065542414 Radiculopathy, lumbar region (M54.16) Active confirmed Problem 831335975510554 Sciatica, left side (M54.32) Active confirmed Problem 70485223632641169 Plantar fascia l fibromatosis (M72.2) Active confirmed Vital Signs Heart Rate 87 /min 06/17/2024 Temperature 97.3 degrees Fahrenheit 06/17/2024 Respiratory Rate 16 /min 05/07/2024 Oximetry 94 % 06/17/2024 Height 72 in 06/17/2024 Weight 260 lbs 05/07/2024 BMI 35.26 kg/m2 05/07/2024 Encounters Encounter Location Date Provider Diagnosis [facility]) [address] [place] [address] [place] [address] 05/07/2024 Robert Kent [facility] ([facility] [address] [place] [address] [place] [address] 05/07/2024 Robert Kent [facility] [address] [place] [address] [place] [address] 05/07/2024 Robert Kent [facility] [address] [place] [address] [place] [address] 06/27/2024 Robert Kent [facility] [address] [place] [address] [place] [address] 05/07/2024 Robert Kent Plantar fascial fibromatosis M72.2 ; Contracture, left ankle M24.572 ; Sciatica, left side M54.32 ; Contracture, right ankle M24.571 and Left foot pain M79.672 [facility] [address] [place] [address] [place] [address] 06/17/2024 Robert Kent Plantar fascial fibromatosis M72.2 ; Contracture, left ankle M24.572 ; Radiculopathy, lumbar region M54.16 and Sciatica, left side M54.32 [facility] [address] [place] [address] [place] [address] 03/25/2024 Robert Kent Plantar fascial fibromatosis M72.2 ; Sciatica, left side M54.32 ; Other specified acquired deformities of right lower leg M21.861 ; Other specified acquired deformities of left lower leg M21.862 ; Corns and callosities L84 ; Right foot pain M79.671 and Left foot pain M79.672 Assessments Encounter Date Diagnosis (ICD Code) Assessment Notes Treatment Notes Treatment Clinical Notes Section Notes 03/25/2024 Plantar fascial fibromatosis (ICD-10 - M72.2) Patient is a 43-year-old female who had plantar fasciitis roughly 5 years ago and responded to nonsurgical treatment by an outside provider. She does have custom inserts and she may consider replacing these with new bpms-khy-gydmiks inserts and I also discussed shoe modification. I emphasized the importance of Achilles tendon stretching and prescribed formal physical therapy. Physical therapy may also address her ongoing low back pain and sciatica. I did explain how low back pain can impact her foot pain.She can take ibuprofen but is allergic to another NSAID which she cannot remember. She may take ibuprofen qice-iau-qidxaip as needed and I did prescribe Medrol Dosepak.She will follow-up in 6 weeks no new x-rays are needed 03/25/2024 Sciatica, left side (ICD-10 - M54.32) 05/07/2024 Plantar fascial fibromatosis (ICD-10 - M72.2) Patient is a 44-year-old female who follows up for bilateral heel pain which is seemingly equal and symmetric. She also has a history of low back pain and sciatica which is predominantly on the left side. She has not improved in her symptoms despite formal physical therapy, NSAIDs, steroids, home stretching program, RICE therapy, shoe and activity modification.Recom mended MRI which was ordered for her left but I also ordered and recommended EMG given her history of sciatica and bilateral heel pain which is symmetric. Long discussion was had regarding her bilateral heel pain and how it may be influenced by her back but this testing should help provide some clarity. Follow-up after these tests are obtained 05/07/2024 Contracture, left ankle (ICD-10 - M24.572) 06/17/2024 Plantar fascial fibromatosis (ICD-10 - M72.2) [...] 06/17/2024 Radiculopathy, lumbar region (ICD-10 - M54.16) 05/07/2024 Sciatica, left side (ICD-10 - M54.32) 03/25/2024 Other specified acquired deformities of right lower leg (ICD-10 - M21.861) 03/25/2024 Other specified acquired deformities of left lower leg (ICD-10 - M21.862) 05/07/2024 Contracture, right ankle (ICD-10 - M24.571) 06/17/2024 Sciatica, left side (ICD-10 - M54.32) 05/07/2024 Left foot pain (ICD-10 - M79.672) 03/25/2024 Corns and callosities (ICD-10 - L84) I recommended a pumice stone and moisturizer for the callus on her plantar forefoot. To be used daily 03/25/2024 Right foot pain (ICD-10 - M79.671) 03/25/2024 Left foot pain (ICD-10 - M79.672) Plan Of Treatment Pending Test Test Name Order Date MRI Ankle LT w/o contrast (Hind Foot) XR Foot 3 Views Bilateral 03/25/2024 XR foot KG min 3V 03/26/2024 Insurance Providers Payer Name Payer Address Payer Phone Subscriber Number Group Number Insured Name Patient Relationship to Insured Coverage Start Date Coverage End Date [employer] [place] [employer] [address] [place] [address] [id number] Des Ohara Self - patient is the insured Medical (General) History Medical History History ICD Code GERD fatty liver thyroid issues Surgical History Surgery Date(Month/Year) jaw broke and 4 wisdom teeth extracted branchial cleft cyst removed on neck hernia surgery 2016 right breast cyst removed hernia surgery 2023
--- OUTSIDE RECORDS SUMMARY | 2024-12-17 13:40 | XMS_ITS | Clinical Summary ---
Author Organization [facility] Address [address] [place] [address] Care Team Providers Care Orderlies Teacher Name Role Phone Peter Lozano Agusto HOOVER Primary Care Provider [phone] Allergies Active Allergy Reactions Criticality Noted Date Comments Indomethacin Swelling 05/10/2018 Medications levothyroxine (SYNTHROID) 75 mcg tablet Take 75 mcg by mouth once daily. 1 04/21/2018 Active omeprazole (PRILOSEC) 40 mg capsule TAKE 1 CAPSULE BY MOUTH EVERY DAY 30 MINUTES BEFORE MORNING MEAL 07/31/2020 Active LISA 0.25-35 mg-mcg per tablet Take 1 tablet by mouth once daily. 09/15/2020 Active Active Problems Problem Noted Date Diagnosed Date Pain in right foot 11/26/2017 Chronic pain of right knee 11/12/2017 Social History Tobacco Use Types Packs/Day Years Used Date Smoking Tobacco: Former Cigarettes Q uit: 2005 Smokeless Tobacco: Never Comments:Smoked 1 pack a [...] N ot on file 06/30/2020 Data from: https://www.neighborhoodatlas.medicine.[facility].edu/. Last address used for calculation Not on file 06/30/2020 Comments No Sex and Gender Information Value Date Recorded Sex Assigned at Not on file Legal Sex Female 3:38 PM EDT Gender Identity Not on file Sexual Orientation Not on file Last Filed Vital Signs Vital Sign Reading Time Taken Comments Blood Pressure 112/55 10/13/2021 1:28 PM EDT Pulse 68 10/13/2021 1:28 PM EDT Temperature 36.5 C (97.7 F) 10/13/2021 1:28 PM EDT Respiratory Rate - - Oxygen Saturation 97% 10/13/2021 1:28 PM EDT Inhaled Oxygen Concentration - - Weight 115.2 kg (254 lb) 10/13/2021 1:28 PM EDT Height 182.9 cm (6') 10/13/2021 1:28 PM EDT Body Mass Index 34.45 10/13/2021 1:28 PM EDT Plan of Treatment Health Maintenance Due Date Last Done Comments Anxiety Screening 2000 Depression Screening 2000 HIV Screening 2000 Hepatitis C Screening 2000 Hepatitis B Vaccine (1 of 3 - 19+ 3-dose series) 04/17 Cervical Cancer Screening 2003 Mammogram Screening 2022 Covid-19 Vaccine ( season) 2024 Influenza Vaccine (Season Ended) 2025 DTaP,Tdap,Td Vaccine (2 - Td or Tdap) 02/19/2028 Insurance [employer] Care Teams Orderlies Teacher Relationship Specialty Start Date End Date Peter Lozano DO [address] [place] [address] PCP - General Family Medicine 11/22/15
--- OUTSIDE RECORDS SUMMARY | 2024-12-17 13:40 | XMS_ITS | Encounter Summary ---
Author Organization [facility] Address [address] [place] [address] Phone Care Team Providers Care Communications Tech Name Role Phone Guillermo Lozano DO Primary Care Provider [phone] Encounter Details Date Type Department Care Team (Late st Contact Info) Description 03/25/2023 Patient Risk Score ACO Care Management [address] [place] [address] Social History Tobacco Use Types [...] on filedocumented in this encounter Care Teams Communications Tech Relationship Specialty Start Date End Date Guillermo Lozano DO PCP - General 11/30/15 documented as of this encounter
--- NOTE | 2024-12-17 14:16 | P.CN_ITS ---
Consult Note: HPI Data of Consult Patient: known to practice within the last 3 years Consult date: 12/17/24 Requesting Physician: Anastasiya Thomas NP Primary Care Provider: Peter Lozano, Consult Narrative Reason for consult: low back, left hip pain Narrative: 44yof who presents for evaluation. increasing low back pain. pt has failed to benefit from > 6 weeks of PT and provider guided HEP, heat, ice, tylenol and nsaids. currently on baclofen 10mg BID and mobic 7.5mg BID without side effects. continues to have moderate to severe low back and left hip pain. today pain 1- 2/10 increasing to 8/10 with standing, walking, sitting, lifting, bending. recently underwent lumbar MRI with results below. cc:: CC: Anastasiya Thomas NP Review of Systems ROS Status of ROS 10 or more systems reviewed and unremark able except as noted in history and below Musculoskeletal Reports: back pain and joint pain PFSH PFSH Medical History Simple cyst of breast ?N60.09 - Solitary cyst of unspecified breast (ICD-10) Sebaceous cyst ?L72.3 - Sebaceous cyst (ICD-10) Low back pain ?M54.50 - Low back pain, unspecified (ICD-10) Hypothyroid ?E03.9 - Hypothyroidism, unspecified (ICD-10) Asthma ?J45.909 - Unspecified asthma, uncomplicated (ICD-10) Surgical History S/P hernia repair ?Z98.890 - Other specified postprocedural states (ICD-10) ?Z87.19 - Personal history of other diseases of the digestive system (ICD-10) History of mandibular surgery ?Z98.890 - Other specified postprocedural states (ICD-10) Meds Home Medications and Allergies Home Medications ?Medication ?Instructions ?Recorded ?Confirmed ?Type esomeprazole magnesium 40 mg 40 mg PO DAILY 06/23/24 0 12/08/24 History capsule,delayed release glow gummies 06/23/24 History esteban control 06/23/24 History multivitamin-ferrous 1 tab PO DAILY 06/23/2411/20 History fumarate-folic acid 18 mg-400 mcg tablet (Centrum Women) ai-in-isalun 68 mcg DFE-caff 95 ea PO 06/23/24 Histor y nc-telv-bnimj-tea oral effer pwdr pack (ATP Ignite) albuterol sulfate 90 mcg/actuation 2 puff inhalation P RN shortness of 09/01/24 History aerosol inhaler breath or wheezing baclofen 10 mg tablet 10 mg PO BID PRN muscle spas m #60 09/11/24 12/08/24 Rx tabs meloxicam 7.5 mg tablet 7.5 mg PO BID PRN pain #60 t abs 09/11/24 12/08/24 Rx diazepam 10 mg tablet (Valium) 10 mg PO Q8H PRN sedati on 12/08/24 12/08/24 History Allergies Allergy/AdvReac Type Severity Reaction Status Date / Time benzonatate AdvReac Mild Diarrhea Verified 12/08/24 10:10 indomethacin AdvReac Mild swelling Verified 12/08/24 10:10 Exam Constitutional Documenting provider has reviewed patient's vital signs: yes Common normals: no apparent distress, oriented x3, healthy appearing, alert and well nourished General appearance: cooperative [facility] Common normals: normocephalic, hearing grossly normal bilaterally and moist oral mucous membranes Head and scalp: normocephalic Eye Common normals: PERRL Pupil: PERRL Neck & C-Spine Common normals: full ROM General: normal visual inspection Chest Common normals: inspection of chest normal Respiratory Common normals: normal respiratory effort, no retractions and no use of accessory muscles Back & Pelvis Lumbar spine/lower back: ROM limited, pain with ROM and lumbar spinal tenderness (bilateral L4-S1 tenderness) Sacroiliac joints: SI joint(s) abnormal Other: left sij mildly positive elle(patricks), gaenslens, thigh thrust, compression test positive facet loading Extremity Other: moderate pain of left GTB with palpation mildly positive internal and external log roll of left hip Neuro Common normals: oriented x3 Sensorium/orientation: alert Psych Common normals: mental status grossly normal, thought process normal, cooperative, affect normal, speech normal and activity/motor behavior normal Speech: normal speech Thought process: normal thought process Results Imaging Lumbar MRI: Attestation: I have reviewed the pertinent imaging results. Radiologist's impression: Multiecho imaging in the axial and sagittal plane was performed without contrast. There is 3 - 4 mm of spondylolisthesis at the lumbosacral junction where there is also degenerative endplate signal change. Alignment is otherwise maintained. There are no acute compression fractures or marrow edema. The conus medullaris is within normal limits for caliber, position and signal intensity. No paraspinal soft tissue abnormalities are identified. At the lumbosacral junction, there is narrowing of the disc space. There is minor annular disc bulging, slightly asymmetric toward the left. There is subtle thecal sac effacement. There is minor inferior foraminal encroachment on the left. At the remaining lumbar levels, no disc bulge or herniation is identified. No central or foraminal stenosis is noted. Additional Findings Additional findings: If on a controlled substance or opioids, I have checked an [place]AR[place] report on this patient and there are no aberrancies noted in the prescribing history.??If on a controlled substance or opioid a drug screen was completed and reviewed within the last year, and if there has not been a drug screen completed we ordered one today to monitor higher risk, state monitored pain medication use. As part of providing excellent, safe, comprehensive care, the following was completed at our patient's visit: 1. A medication reconciliation and review to ensure accurate knowledge of current/active medications, including asking our patients to inform us about any ydqx-vol-bpimcaa medications or herbal remedies/nutritional supplements/alternative remedies. 2. A review to specifically ensure our patients have had annual screening for screening for depression, screening for tobacco use, and screening for unhealthy alcohol use. For concerning screenings had a discussion with the patient, provided patient education, and recommended follow-up with primary care provider when appropriate. If patient noted with a risk of falling, they received education on strength, gait, and balance training to prevent future risk of falling. Portions of this note may have been carried over from the previous visit and updated as appropriate. Please note this office utilizes paper charting in addition to the electronic medical record. A list of current medications, vitals, and PMH is available there as the clinical staff outside of myself do not have access to [facility] charting during the clinic day operations. As part of providing quality compre hensive care the current medications, vitals, and PMH were reviewed in the paper chart. Assessment and Plan Assessment and Plan (1) Sacroiliitis: (2) Lumbar spondylosis: Assessment and Plan: The patient has had over 3 months of moderate to severe low back pain with functional impairment and inadequate response to conservative care including NSAIDS (unless there are contraindication such as concurrent blood thinners), multiple oral or topical pain medications, and home exercise program/physical therapy.? Patient has completed >6 weeks of guided home exercise program and/or formal physical therapy program without relief of their symptoms.?? The Oswestry Disability Index was completed, and the patient scored a 7%.? ?The procedure will be completed with fluoroscopic guidance.? (3) Greater trochanteric bursitis of left hip: (4) Chronic left hip pain: (5) Lumbar radiculopathy: (6) Myalgia, other site: Plan bilateral L4-5 L5-S1 mbb x2 in consideration of RFA for axial facet mediated low back pain, with 10mg po valium 30-60mins prior to procedure per pt request due to significant anxiety and difficulty tolerating procedures pt traveling out of the country [place] 2 weeks for vacation, would like pain medication short term for breakthrough moderate to severe pain unresponsive to tylenol and NSAIDs. will send in for hydrocodone-acetaminophen 5-325mg QID PRN moderate to severe pain continue tylenol and meloxicam 7.5mg BID PRN, pt would like to go back on motrin once she has finished her meloxicam f/u after each MBB
== END 2024-12-17 13:37 | disposition home or self-care (01) ==
PROVIDERS: PCP Family Medicine; Visit Provider Nurse Practitioner
DX: M46.1 Sacroiliitis, not elsewhere classified (principal); M47.816 Spondylosis without myelopathy or radiculopathy, lumbar region; M70.62 Trochanteric bursitis, left hip; M25.552 Pain in left hip; M54.16 Radiculopathy, lumbar region
CPT/HCPCS: G0463

== ENCOUNTER 2025-01-26 06:36 | Day surgery (SDC) | payer OTHER, SELFPAY ==
--- OUTSIDE RECORDS SUMMARY | 2024-12-08 | XMS_ITS ---
Author Name Auto Generated Organization OHIP Support Name Relationship Address Phone Eugenio Ohara Next of Kin Unknown [phone] Sophie Dominguez Next of Kin Unknown + LOWCharlee, SOPHIE Next of Kin [id number] [place] [address] + [phone] Lornelson, Eugenio Next of Kin Unknown [phone] Lowcharlee, Sophie Next of Kin Unknown + LOWCharlee, SOPHIE Next of Kin [address] [place] [address] + ~[phone] Loroff, Eugenio Next of Kin Unknown [phone] Alberto, Sophie Next of Kin Unknown + Mayda, Eugenio Next of Kin Unknown [phone] Alberto, Sophie Next of Kin Unknown + LOWCharlee, SOPHIE Next of Kin [address] [place] [address] + ~[phone] Lornelson, Eugenio Next of Kin Unknown [phone] Alberto, Sophie Next of Kin Unknown + Loroff, Eugenio Next of Kin Unknown [phone] Lowe, Sophie Next of Kin Unknown + Loroff, Eugenio Next of Kin Unknown [phone] Lowe, Sophie Next of Kin Unknown + LOWE, SOPHIE Next of Kin [address] [place] [address] + ~[phone] Loroff, Eugenio Next of Kin Unknown [phone] Lowcharlee, Sophie Next of Kin Unknown + SOPHIE DOMINGUEZ Next of Kin [address] [facility] [place] [address] + ~[phone] Eugenio Ohara Next of Kin Unknown [phone] Sophie Dominguez Next of Kin Unknown + Care Team Providers Care Technical Services Specialist Name Role Phone Burton DAO, Andrius Masters Attending Unavailable Burton DAO, Andrius Vytautas Attending Unavailable Isaíasitis , Andrius Vytautas Attending Unavailable Burton DAO, Andrius Vytautas Attending Unavailable Chas Meza Admitting Unavailable Chas Meza Attending Unavailable Kuns, Peter Primary Care Unavailable Kuns, Peter Primary Care Unavailable Kuns, Peter Attending Unavailable Kuns, Peter Admitting Unavailable Kuns, Peter Primary Care Unavailable Kuns, Peter Attending Unavailable Peter Lozano Admitting Unavailable Robert Kent Attending Unavailable Kuns, Peter Primary Care Unavailable Robert Kent Admitting Unavailable Robert Kent Attending Unavailable Blake, Peter Primary Care Unavailable Robert Kent Admitting Unavailable HighlRobert mandel Attending Unavailable Kuns, Peter Primary Care Unavailable Robert Kent Admitting Unavailable Itzkowitz, Bonifacio Attending Unavailable Itzkowitz, Bonifacio Admitting Unavailable Kuns, Peter Attending Unavailable Kuns, Peter Admitting Unavailable Kuns, Peter Primary Care Unavailable Itzkowitz, Bonifacio Admitting Unavailable Itzkowitz, Bonifacio Attending Unavailable Kuns, Peter Primary Care Unavailable ITZKOWITZ, BONIFACIO H Attending Unavailable ITZKOWITZ, BONIFACIO H Attending Unavailable ITZKOSYDNI, BONIFACIO H Attending Unavailable ITZCHILO, BONIFACIO H Attending Unavailable RAHUL ROCHA Attending Unavailable ROBERT KENT Referring Unavailable PROBLEMS DATE TYPE CONDITION / CODE ATTENDING STATUS [facility] 12/05/2024 Unknown Prediabetes / R73.03(ICD-10) Peter Lozano [facility] 09/29/2024 Unknown Sebaceous cyst / L72.3(ICD-10) Itzkosydni Bonifacio [facility] 06/04/2024 Unknown Plantar fascial fibromatosis / M72.2(ICD-10) Robert Kent [facility] 05/19/2024 Unknown Pain in right fo ot / M79.671(ICD-10) WaleRobert mandel Sabino [facility] 03/12/2024 Unknown Gastro-esophagea l reflux disease without esophagitis / K21.9(ICD-10) [facility] 03/12/2024 Unknown Diarrhea, unspec ified / R19.7(ICD-10) [facility] 03/05/2024 Unknown Hypothyroidism, unspecified / E03.9(ICD-10) [facility] 03/05/2024 Unknown Hyperlipidemia, unspecified / E78.5(ICD-10) [facility] 03/05/2024 Unknown Hyperglycemia, unspecified / R73.9(ICD-10) [facility] 02/13/2024 Unknown Nondisplaced fra cture of neck of right radius, initial encounter for closed fracture / S52.134A(ICD-10) Chas Meza [facility] 01/29/2024 Unknown Umbilical hernia without obstruction or gangrene / K42.9(ICD-10) [facility] PROCEDURES No Procedure Records Found RESULTS COMPLETE BLOOD COUNT AUTO DIFF Collected: 12/05/2024 6:52 AM Status: F Source: [facility] TYPE CODE TESTS RESULT OUT OF RANGE REFERENCE UNITS LAB WBC White Blood Count 7.1 Normal 3.8-11.6 10*3/uL LAB UNWBC Uncorrected WBC 7.1 Normal 3.8-11.6 10*3/uL LAB RBC Red Blood Count 4.14 Normal 3.60-5.00 10*6/u L LAB HGB Hemoglobin 12.1 Normal 11.8-15.4 g/dL LAB HCT Hematocrit 36.1 Normal 34.0-46.4 % LAB MCV Mean Corpuscular Volume 87.0 Normal 80-100 fL LAB MCH Mean Corpuscular Hemoglobin 29.1 Normal 24.7-34.3 pg LAB MCHC Mean Corpuscular HGB Conc 33.5 Normal 32.0-35.0 g/dL LAB RDW Red Cell Distribution Width 12.7 Normal 11.9-15.3 % LAB PLT Platelet Count 296 Normal 150-450 10*3/uL LAB MPV Mean Platelet Volume 7.7 Normal 6.3-10.7 fL LAB NE% Neutrophils % (Auto) 66.4 . % LAB LY% Lymphocytes % (Auto) 23.9 . % LAB MO% Monocytes % (Auto) 7.2 . % LAB EO% Eosinophils % (Auto) 1.7 . % LAB BA% Basophils % (Auto) 0.8 . % LAB NRBC% NRBC% 0.0 Normal 0-0.5 /100{WBC} LAB NE# Neutrophils # (Auto) 4.7 Normal 1.8-7.7 10*3/uL LAB LY# Lymphocytes # (Auto) 1.7 Normal 1.00-4.8 10*3/uL LAB MO# Monocytes # (Auto) 0.5 Normal 0.0-0.8 10*3/uL LAB EO# Eosinophils # (Auto) 0.1 Normal 0.0-0.45 10*3/uL LAB BA# Basophils # (Auto) 0.1 Normal 0.0-0.2 10*3/uL Result Comment: PERFORMED BY : [place] [address] PATHOLOGIST MARKETING RESEARCH COORDINATOR PADILLA LYMAN M.D. Performed By: #### A1C WTH e A, LIPID, CMP, T4F, TSH3, CBC #### [facility] [address] [place] [address] COMPREHENSIVE METABOLIC PANEL Collected: 12/05/2024 6 :52 AM Status: F Source: [facility] TYPE CODE TESTS RESULT OUT OF RANGE REFERENCE UNITS LAB GLU Glucose 98 Normal 70-100 mg/dL Result Comment: Random Gluco se Reference Range is dependent on time and content of last meal. Glucose of more than 200 mg/dL in a nonstressed, ambulatory subject supports the diagnosis of Diabetes Mellitus. ADA recommended reference range LAB BUN Blood Urea Nitrogen 16 Normal 7-25 mg/d L LAB CREATT Creatinine 0.50 Low 0.60-1.20 mg/dL LAB GFReNR Estimated GFR >60.0 mL/Min LAB NA Sodium 139 Normal 136-145 mmol/L LAB K Potassium 4.4 Normal 3.5-5.1 mmol/L LAB CL Chloride 105 Normal 98-107 mmol/L LAB CO2 Carbon Dioxide 29.8 Normal 21.0-31.0 mmol/L LAB GAP Anion Gap 8.6 Normal 6.0-15.0 meq/L LAB CA Calcium 8.5 Low 8.6-10.3 mg/dL LAB TP Total Protein 6.0 Low 6.4-8.9 g/dL LAB ALB Albumin Level 3.7 Normal 3.5-5.7 g/dL LAB GLOB Globulin 2.3 g/dL LAB AGRATIO Albumin/Globulin Ratio 1.6 LAB BILIT Bilirubin,Total 0.3 Normal 0.3-1.0 mg/dL LAB AST Aspartate Amino Transferase 12 Low 13-39 U/L LAB ALT Alanine Aminotransferase 6 Low 7-52 U/L LAB ALP Alkaline Phosphatase 42 Normal 34-104 U/L Performed By: #### A1C WTH e A, LIPID, CMP, T4F, TSH3, CBC #### [facility] [address] LIPID PANEL Collected: 12/05/2024 6:52 AM Status: F Source: [facility] TYPE CODE TESTS RESULT OUT OF RANGE REFERENCE UNITS LAB CHOL Cholesterol 151 Normal 140-200 mg/dL Result Comment: Chol less th an 200 mg/dl low risk Chol 201-239 mg/dl borderline risk Chol 240 mg/dl and greater high risk LAB HDL HDL Cholesterol 50 Normal 23-92 mg/dL Result Comment: HDL CHOL ATP -III CLASSIFICATION Cardiovascular Risk HDL > or equal to 60 mg/dL LOW HDL < 40 mg/dL HIGH LAB TRIG W REF Triglyceride w/Reflex 83 Normal 0-149 mg/dL Result Comment: TRIG ATP III CLASSIFICATION TRIG less than 150 mg/dL Normal TRIG 150-199 mg/dL Borderline high TRIG 200-500 mg/dL High TRIG greater than 500 mg/dL Very high Standard traceable to the Center for Disease Conrtrol and Prevention (CDC) test method. LAB LDLC LDL Cholesterol,Calc ulated 84 Normal 0-100 mg/dL Result Comment: LDL ATP III CLASSIFICATION LDL less than 100 mg/dL Optimal LDL 100-129 mg/dL Near or above optimal LDL 130-159 mg/dL Borderline high LDL 160-189 mg/dL High LDL greater than 189 mg/dL Very high LAB VLDL VLDL CHOLESTEROL 16 mg/dL LAB CHLHDL Chol/HDL Ratio 3.0 <5.0 Performed By: #### A1C WTH e A, LIPID, CMP, T4F, TSH3, CBC #### [place] [id number] [facility] FREE T4 (FREE THYROXINE) Collected: 6:52 AM Status: F Source: [facility] TYPE CODE TESTS RESULT OUT OF RANGE REFERENCE UNITS LAB T4F Free T4 (Free Thyroxine) 1.01 Normal 0.61-1.12 ng/dL Performed By: #### A1C WTH e A, LIPID, CMP, T4F, TSH3, CBC #### [place] [id number] [facility] THYROID STIMULATING HORMONE Collected: 12/05/2024 6:5 2 AM Status: F Source: [facility] TYPE CODE TESTS RESULT OUT OF RANGE REFERENCE UNITS LAB TSH3 Thyroid Stimulating Hormone 0.30 Low 0.45-5.33 u[iU]/mL Result Comment: PERFORMED BY : [place] [address] PATHOLOGIST MARKETING RESEARCH COORDINATOR PADILLA LYMAN M.D. Performed By: #### A1C WTH e A, LIPID, CMP, T4F, TSH3, CBC #### [place] [id number] [facility] A1C WITH ESTIMATED AVERAGE GLU Collected: 12/05/2024 6:52 AM Status: F Source: [facility] TYPE CODE TESTS RESULT OUT OF RANGE REFERENCE UNITS LAB .A1C Hemoglobin A1C 5.7 High 4.3-5.6 % Result Comment: Increased ri sk for diabetes: 5.7 - 6.4 diabetes: >6.4 glycemic control for adults with diabetes: <7.0 LAB eAG Estimated Average Glucose 117 mg/dL Result Comment: PERFORMED BY : [place] [address] PATHOLOGIST MARKETING RESEARCH COORDINATOR PADILLA LYMAN M.D. Performed By: #### A1C WTH e A, LIPID, CMP, T4F, TSH3, CBC #### [facility] [address] L Observed: 09/29/2024 12:00 AM Status: Teresa Source: [facility] ----- ------- Specimen: [id number] Received: 09/29/24 Status: JORGE Rocky Num: [id number] Spec Type: Surgical Subm Dr: Bonifacio Lara DO Tissues: A Skin Cyst (RT CHEST CYSTIC WALL) Procedures: Luma RAMIREZ/Fabiana L3 ----- ------- Age/ Patient Sex Location Account Attending Physician ----- ------- Des Ohara 44/F ELIUD [id number] Bonifacio Lara DO ----- ------- SPEC NUM: [id number] RECD: 09/29/24 STATUS: JORGE ROCKY NUM: [id number] ALISTAIR: 09/29/24- SUBM DR: Bonifacio Lara DO ENTERED: 09/29/24-1221 [facility] DR: [facility] SPEC TYPE: Surgical DEPT: S ORDERED: HE, [...] submitted in a single cassette. (1, ns, [id number]) NOEL ----- ------- Specimen: [id number] Received: 09/29/24 Status: JORGE Rocky Num: [id number] Spec Type: Surgical Subm Dr: Bonifacio Lara DO Tissues: A Skin Cyst (RT CHEST CYSTIC WALL) Procedures: ASHLEY, Gross/Micro L3 ----- ------- Patient: MaudenelsonDes [id number] (Continued) ----- ------- Specimen: [id number] Received: 09/29/24 (Continued) Signed (signature on file) Adolfo Madrid MD 09/30/24 1501 ----- ------- Specimen: [id number] Received: 09/29/24 Status: JORGE Hidalgo Num: [id number] Spec Type: Surgical Subm Dr: Bonifacio Lara DO Tissues: A Skin Cyst (RT CHEST CYSTIC WALL) Procedures: Luma RAMIREZ/Fabiana L3 ----- ------- Patient: Des Ohara [id number] (Continued) ----- ------- Specimen: [id number] Received: 09/29/24 (Continued) Microscopic Description Microscopic examinations are performed supporting the above interpretation CPT Codes 93553 ----- ------- ----- ------- Specimen: [id number] Received: 09/29/24 Status: JORGE Hidalgo Num: [id number] Spec Type: Surgical Subm Dr: Bonifacio Lara DO Tissues: A Skin Cyst (RT CHEST CYSTIC WALL) Procedures: Luma RAMIREZ/Fabiana L3 ----- ------- Patient: Des Ohara [id number] (Continued) ----- ------- Signed (signature on file) Adolfo Madrid MD 09/30/24 1501 XR PRE/POST MRI XRAY Observed: 11:51 PM Status: COMPLETED Source: [place] [address] XRay Report Signed Patient: Des Ohara MR#: [id number] 1872 : 1980 Acct:[id number] Age/Sex: 44 / F ADM Date: 06/04/24 Loc: Room: Type: [facility] Attending Dr: Robert Kent DPM, MS Copies to: Robert Kent DPM, MS Ordering Provider: Robert Kent DPM, MS Date of Service: 06/04/24 XR/XR pre/post mri xray: PLANTAR FASCITIS 2 views LEFT ankle for pre-MRI assessment. Large inferior calcaneal spur. Intact bony structures. No acute bony findings. Unremarkable soft tissues. XR/XR pre/post mri xray IMPRESSION: Inferior calcaneal spurring Impression dictated by: Osmani Stovall M.D.06/04/2024 11:51 PM Dictation Location: [place] [address] Transcribed By: [facility] 06/04/242350 Dictated By: Osmani Stovall DO 06/04/242350 Signed By: <Electronically signed by Osmani Stovall DO in OV> 06/04/242350 MR ANKLE LT WO CON Observed: 06/04/2024 10:18 PM Status: COMPLETED Source: [address] [address] MRI Report Signed Patient: Des Ohara MR#: [id number] 1872 : 1980 Acct:[id number] Age/Sex: 44 / F ADM Date: 06/04/24 Loc: MR Room: Type: [facility] Attending Dr: Robert Kent DPM, MS Copies to: Robert Kent DPM, MS Ordering Provider: Robert Kent DPM, MS Date of Service: 06/04/24 MR/MR [...] Osmani Stovall M.D.06/04/2024 10:29 PM Dictation Location: [place] [address] Transcribed By: [facility] 06/04/242228 Dictated By: Osmani Stovall DO 06/04/242217 Signed By: <Electronically signed by Osmani Stovall DO in OV> 06/04/242228 FL UPPER GI W AIR* Observed: 03/12/2024 10:40 AM Status: COMPLETED Source: [facility] [place] [address] [place] [address] Fluoroscopy Report Signed Patient: Des Ohara MR#: [id number] 1872 : 1980 Acct:[id number] Age/Sex: 43 / F ADM Date: 03/12/24 Loc: Room: Type: [facility] Attending Dr: Peter Lozano DO Copies to: Peter Lozano DO Ordering Provider: Peter Lozano DO Date of Service: 03/12/24 FL/FL upper [...] Osmani Stovall M.D.03/12/2024 2:09 PM Dictation Location: [place] [address] Transcribed By: [facility] 03/12/24 1409 Dictated By: Osmani Stovall DO 03/12/24 1040 Signed By: <Electronically signed by Osmani Stovall DO in OV> 03/12/24 1409 US GALL BLADDER Observed: 03/12/2024 10:36 AM Status: COMPLETED Source: [facility] [place] [address] Ultrasound Report Signed Patient: Des Ohara MR#: [id number] 1872 : 1980 Acct:[id number] Age/Sex: 43 / F ADM Date: 03/12/24 Loc: Room: Type: [facility] Attending Dr: Peter Lozano DO Ordering Provider: Peter Lozano DO Date of Service: 03/12/24 US/US gall bladder: K21.9 - Gastro-esophageal reflux disease without esophagitis Copies to: Peter Lozano DO Gallbladder ultrasound HISTORY: Diarrhea. COMPARISON: None [...] Osmani Stovall M.D.03/12/2024 10:39 AM Dictation Location: [place] [address] Tech: Nellie Solis Transcribed By: PWS 03/12/24 1039 Dictated By: Osmani Stovall DO 03/12/24 1036 Signed By: <Electronically signed by Osmani Stovall DO in OV> 03/12/24 1039 COMPLETE BLOOD COUNT AUTO DIFF Collected: 03/05/2024 6:37 AM Status: F Source: [facility] TYPE CODE TESTS RESULT OUT OF RANGE REFERENCE UNITS LAB WBC White Blood Count 6.2 Normal 3.8-11.6 10*3/uL LAB UNWBC Uncorrected WBC 6.2 Normal 3.8-11.6 10*3/uL LAB RBC Red Blood Count 4.44 Normal 3.60-5.00 LAB HGB Hemoglobin 12.5 Normal 11.8-15.4 g/dL LAB HCT Hematocrit 37.2 Normal 34.0-46.4 % LAB MCV Mean Corpuscular Volume 83.8 Normal 80-100 fL LAB MCH Mean Corpuscular Hemoglobin 28.2 Normal 24.7-34.3 pg LAB MCHC Mean Corpuscular HGB Conc 33.6 Normal 32.0-35.0 g/dL LAB RDW Red Cell Distribution Width 13.4 Normal 11.9-15.3 % LAB PLT Platelet Count 333 Normal 150-450 10*3/uL LAB MPV Mean Platelet Volume 8.7 Normal 6.3-10.7 fL LAB NE% Neutrophils % (Auto) 53.3 . % LAB LY% Lymphocytes % (Auto) 36.3 . % LAB MO% Monocytes % (Auto) 7.5 . % LAB EO% Eosinophils % (Auto) 2.2 . % LAB BA% Basophils % (Auto) 0.7 . % LAB NRBC% NRBC% 0.1 Normal 0-0.5 /100{WBC} LAB NE# Neutrophils # (Auto) 3.3 Normal 1.8-7.7 10*3/uL LAB LY# Lymphocytes # (Auto) 2.2 Normal 1.00-4.8 10*3/uL LAB MO# Monocytes # (Auto) 0.5 Normal 0.0-0.8 10*3/uL LAB EO# Eosinophils # (Auto) 0.1 Normal 0.0-0.45 10*3/uL LAB BA# Basophils # (Auto) 0.0 Normal 0.0-0.2 10*3/uL Result Comment: PERFORMED BY : [facility] [address] [place] [address] PATHOLOGIST MARKETING RESEARCH COORDINATOR ALVIN VIDES M.D. Performed By: #### T4F, CBC, TSH3, A1C WTH eA, LIPID, CMP #### [facility] [address] COMPREHENSIVE METABOLIC PANEL Collected: 03/05/2024 6 :37 AM Status: F Source: [facility] TYPE CODE TESTS RESULT OUT OF RANGE REFERENCE UNITS LAB GLU Glucose 96 Normal 70-100 mg/dL Result Comment: Random Gluco se Reference Range is dependent on time and content of last meal. Glucose of more than 200 mg/dL in a nonstressed, ambulatory subject supports the diagnosis of Diabetes Mellitus. ADA recommended reference range LAB BUN Blood Urea Nitrogen 11 Normal 7-25 mg/d L LAB CREATT Creatinine 0.63 Normal 0.60-1.20 mg/dL LAB GFReNR Estimated GFR > 60.0 LAB NA Sodium 139 Normal 136-145 mmol/L LAB K Potassium 3.8 Normal 3.5-5.1 mmol/L LAB CL Chloride 103 Normal 98-107 mmol/L LAB CO2 Carbon Dioxide 28.7 Normal 21.0-31.0 mmol/L LAB GAP Anion Gap 11.1 Normal 6.0-15.0 LAB CA Calcium 8.9 Normal 8.6-10.3 mg/dL LAB TP Total Protein 6.7 Normal 6.4-8.9 g/dL LAB ALB Albumin Level 4.0 Normal 3.5-5.7 g/dL LAB GLOB Globulin 2.7 g/dL LAB AGRATIO Albumin/Globulin Ratio 1.5 LAB BILIT Bilirubin,Total 0.4 Normal 0.3-1.0 mg/dL LAB AST Aspartate Amino Transferase 20 Normal 13-39 U/L LAB ALT Alanine Aminotransferase 10 Normal 7-52 U/L LAB ALP Alkaline Phosphatase 46 Normal 34-104 U/L Performed By: #### T4F, CBC, TSH3, A1C WTH eA, LIPID, CMP #### [facility] [address] [place] [id number] [facility] LIPID PANEL Collected: 03/05/2024 6:37 AM Status: F Source: [facility] TYPE CODE TESTS RESULT OUT OF RANGE REFERENCE UNITS LAB CHOL Cholesterol 166 Normal 140-200 mg/dL Result Comment: Chol less th an 200 mg/dl low risk Chol 201-239 mg/dl borderline risk Chol 240 mg/dl and greater high risk LAB HDL HDL Cholesterol 50 Normal 23-92 mg/dL Result Comment: HDL CHOL ATP -III CLASSIFICATION Cardiovascular Risk HDL > or equal to 60 mg/dL LOW HDL < 40 mg/dL HIGH LAB TRIG W REF Triglyceride w/Reflex 202 High 0-149 mg/dL Result Comment: TRIG ATP III CLASSIFICATION TRIG less than 150 mg/dL Normal TRIG 150-199 mg/dL Borderline high TRIG 200-500 mg/dL High TRIG greater than 500 mg/dL Very high Standard traceable to the Center for Disease Conrtrol and Prevention (CDC) test method. LAB LDLC LDL Cholesterol,Calc ulated 76 Normal 0-100 mg/dL Result Comment: LDL ATP III CLASSIFICATION LDL less than 100 mg/dL Optimal LDL 100-129 mg/dL Near or above optimal LDL 130-159 mg/dL Borderline high LDL 160-189 mg/dL High LDL greater than 189 mg/dL Very high LAB VLDL VLDL CHOLESTEROL 40 mg/dL LAB CHLHDL Chol/HDL Ratio 3.3 <5.0 Performed By: #### T4F, CBC, TSH3, A1C WTH eA, LIPID, CMP #### [facility] [address] [place] [id number] [place] FREE T4 (FREE THYROXINE) Collected: 6:37 AM Status: F Source: [facility] TYPE CODE TESTS RESULT OUT OF RANGE REFERENCE UNITS LAB T4F Free T4 (Free Thyroxine) 0.81 Normal 0.61-1.12 ng/dL Performed By: #### T4F, CBC, TSH3, A1C WTH eA, LIPID, CMP #### [facility] [address] [place] [address] [facility] THYROID STIMULATING HORMONE Collected: 03/05/2024 6:3 7 AM Status: F Source: [facility] TYPE CODE TESTS RESULT OUT OF RANGE REFERENCE UNITS LAB TSH3 Thyroid Stimulating Hormone 0.29 Low 0.45-5.33 u[iU]/mL Result Comment: PERFORMED BY : [address] [address] PATHOLOGIST MARKETING RESEARCH COORDINATOR ALVIN VIDES M.D. Performed By: #### T4F, CBC, TSH3, A1C WTH eA, LIPID, CMP #### [facility] [address] [place] [address] [facility] A1C WITH ESTIMATED AVERAGE GLU Collected: 03/05/2024 6:37 AM Status: F Source: [facility] TYPE CODE TESTS RESULT OUT OF RANGE REFERENCE UNITS LAB .A1C Hemoglobin A1C 6.1 High 4.3-5.6 % Result Comment: Increased ri sk for diabetes: 5.7 - 6.4 diabetes: >6.4 glycemic control for adults with diabetes: <7.0 LAB eAG Estimated Average Glucose 128 mg/dL Result Comment: PERFORMED BY : [address] [address] PATHOLOGIST MARKETING RESEARCH COORDINATOR ALVIN VIDES M.D. Performed By: #### T4F, CBC, TSH3, A1C WTH eA, LIPID, CMP #### [facility] [address] [place] [address] [facility] XR ELBOW RT 2V Observed: 02/13/2024 4:07 PM Status: COMPLETED Source: [facility] [address] [place] [address] XRay Report Signed Patient: Des Ohara MR#: [id number] 1872 : 1980 Acct:[id number] Age/Sex: 43 / F ADM Date: 02/13/24 [place] [facility]: Type: [facility] Attending Dr: Chas Meza DO Copies to: [...] Osmani Stovall M.D.02/13/2024 4:07 PM Dictation Location: [facility]--08 Transcribed By: PWS 02/13/24 160 Dictated By: Osmani Stovall DO 02/13/24 160 Signed By: <Electronically signed by Osmani Stovall DO in OV> 02/13/24 160 HCG,URINE Collected: 10:18 AM Status: F Source: [facility] TYPE CODE TESTS RESULT OUT OF RANGE REFERENCE UNITS LAB UHCGQ HCG Qualitative,U rine Negative Result Comment: PERFORMED BY : [place] [address] PATHOLOGIST MARKETING RESEARCH COORDINATOR ALVIN VIDES M.D. Performed By: #### [facility] #### [address] ALLERGIES No Allergies Records Found ENCOUNTERS ADMIT/DISCHARGE ACCOUNT NUMBER ADMITTING ENCOUNTER CLASS LOCATION SOURCE 12/08/2024/12/09/19 [id number] [facility] 12/05/2024/12/06/19 [id number] [facility] 10/13/2024/10/14/19 25 [id number] Ambulatory Building:[facility] 09/29/2024/09/30/19 25 [id number] [facility] 09/22/2024/09/23/19 25 [id number] [facility] 09/10/2024/09/10/19 [id number] Ambulatory Building:[facility] 09/01/2024/09/01/19 [id number] [facility] [place] 07/17/2024/07/17/20 24 [id number] [facility] 06/23/2024/06/23/20 24 [id number] [facility] [place] 06/04/2024/06/04/20 24 [id number] [facility] 05/22/2024/05/22/20 24 [id number] Ambulatory Building:[facility] 05/19/2024/05/19/20 24 [id number] [facility] 03/12/2024/03/12/20 24 [id number] [facility] 03/05/2024/03/05/20 24 [id number] [facility] 02/28/2024/02/28/20 24 [id number] Ambulatory Building:[facility] 02/13/2024/02/13/20 24 [id number] [facility] 02/07/2024/02/07/20 24 [id number] Ambulatory [facility] 01/29/2024/01/29/20 24 [id number] [facility] PAYERS ENCOUNTER GUARANTOR PAYER SUBSCRIBER SOURCE 12/08/2024 Des Moses: [phone] [place] [address] Primary Insurance:CareSourcePo licy Number: Effective Date:[id number] Name:MEDCP O Marta [address] [place] [id number]: Des L LoroffDOB: [id number] [place] [address] [facility] 12/05/2024 Des L [id number] [facility] [address], [place] [address]Ody: (HP) Primary Insurance:[employer] MedicaidPolicy Number: [id number] Date:6401-50-15Qtj [address] [address]PU: Des L LoroffDOB: [id number] [facility] [address] [address]Art: (HP) [facility] 12/05/2024 Secondary Insurance:Self PayPolicy Number: Effective Date:2024-12-05 [facility] DES L LOROFFDOB: [facility] [address] [address]Eui: (HP) Primary Insurance:[employer]ESOURCE MEDICAIDPolicy Number: [id number] Date:2018-07-23 DES L LOROFFDOB: [id number] [facility] [address] [address] [facility] 09/29/2024 Des L [id number] [facility] [place] [address]Ncd: (HP) Primary Insurance:Caresource MedicaidPolicy Number: [id number] Date:3262-11-84Xbk[address] [address]DT: Des L LoroffDOB: [id number] [address] [place] [address]Qzp: (HP) [facility] 09/29/2024 Secondary Insurance:Self PayPolicy Number: Effective Date:2024-09-29 NOT GIVENUNK [facility] 09/22/2024 Des L LoroffDOB: [place] [address] Primary Insurance:CareSourcePo licy Number: Effective Date:2920-77-51Lizo Name:MEDCP [address] [place] [address]MU: Des L LoroffDOB: [id number] [place] [address] [facility] 09/10/2024 DES L LOROFFDOB: [facility] [place] [address]Agy: (HP) Primary Insurance:CARESOURCE MEDICAIDPolicy Number: [id number] Date:2018-07-23 DES L LOROFFDOB: [id number] [facility] [address] [facility] 09/01/2024 Des L LoroffDOB: [place] [address] Primary Insurance:CareSourcePo licy Number: Effective Date:0924-91-51Pxey Name:MED [address] [place] [address]EZ: Des L LoroffDOB: [id number] [place] [address] [facility] 07/17/2024 Des L [id number] [address]Glw: (HP) Primary Insurance:Caresource MedicaidPolicy Number: [id number] Date:7649-48-15Xuu[address] [address]NM: Des L LoroffDOB: [id number] [facility] [address] [address]Ddl: () [facility] 07/17/2024 Secondary Insurance:Self PayPolicy Number: Effective Date:2024-06-18 NOT GIVENUNK [facility] 06/23/2024 Des L LoroffDOB: [place] [address] Primary Insurance:CareSourcePo licy Number: Effective Date:9069-58-95Wnwq Name:MEDCP [address] [address]SW: Des L LoroffDOB: [id number] [place] [address] [facility] 06/04/2024 Des Manuel [id number] [facility] [address] [address]Jpa: () Primary Insurance:Caresource MedicaidPolicy Number: [id number] Date:7170-87-94Gmn[address] [address]HZ: Des L LoroffDOB: [id number] [facility] [place] [address]Rtv: () [facility] 06/04/2024 Secondary Insurance:Self PayPolicy Number: Effective Date:2024-05-20 NOT GIVENUNK [facility] 05/22/2024 DES L LOROFFDOB: [facility] [address] [address]Ivs: () Primary Insurance:CARESOURCE MEDICAIDPolicy Number: [id number] Date:2018-07-23 DES L LOROFFDOB: [id number] [facility] [address] [address] [facility] 05/19/2024 Des L [id number], [place] [address]Jwf: (HP) Primary Insurance:Caresource MedicaidPolicy Number: [id number] Date:8511-36-95Lnj[address] [address]HC: Des L LoroffDOB: [id number] [place] [address], [place] [address]Ctf: (HP) [facility] 05/19/2024 Secondary Insurance:Self PayPolicy Number: Effective Date:2024-03-25 NOT GIVENUNK [facility] 03/12/2024 Des L [id number] [place] [address], [place] [address]Ius: () Primary Insurance:CaresourcePo licy Number: [id number] Date:3311-90-36Vlf[address] [address]ZW: Des L LoroffDOB: [id number] [place] [address]Rby: () [facility] 03/12/2024 Secondary Insurance:Self PayPolicy Number: Effective Date:2024-03-07 NOT GIVENUNK [facility] 03/05/2024 Des L [id number] [place] [address], [place] [address]Cxc: (HP) Primary Insurance:CaresourcePo licy Number: [id number] Date:8686-01-50Zab[address] [address]DP: Des L LoroffDOB: [id number] [facility] [address] [place] [address]Rkc: (HP) [facility] 03/05/2024 Secondary Insurance:Self PayPolicy Number: Effective Date:2024-03-05 [facility]/28/2024 DES L LOROFFDOB: 3[birth year]-57-10BT [address] [address]Pmd: () Primary Insurance:CARESOURCE MEDICAIDPolicy Number: [id number] Date:2018-07-23 DES L LOROFFDOB: 8963-72-50[address], [place] [address] [facility] 02/13/2024 Des L [id number] [address]Rna: () Primary Insurance:CaresourcePo licy Number: [id number] Date:5677-20-50Xut[address] [address]MQ: Des L LoroffDOB: [id number] [place] [address]Pbt: () [facility] 02/13/2024 Secondary Insurance:Self PayPolicy Number: Effective Date:2024-02-13 [facility] 02/07/2024 DES L LOROFFDOB: 3652-21-13KJ [address] [address]Zvc: () Primary Insurance:CARESOURCE MEDICAIDPolicy Number: [id number] Date:2018-07-23 DES L LOROFFDOB: 8887-19-20CNINI[address] [address] [facility] 01/29/2024 Des L [id number] [place] [address]Erc: () Primary Insurance:CaresourcePo licy Number: [id number] Date:8975-26-99[address] [place] [place] [address]NF: Des Moses: [id number] [address]Zvc: () [facility] 01/29/2024 Secondary Insurance:Self PayPolicy Number: Effective Date:2024-01-10 [facility]
[2025-01-26 06:56] VITALS: BP 125/87; PULSE 71; TEMP 36.3; O2SAT 98
[2025-01-26 07:35] VITALS: BP 136/92; BP 146/83; PULSE 68; PULSE 69; O2SAT 100; O2SAT 99
[2025-01-26] MEDS: BUPIVACAINE HCL 0.25% PF 25 MG/10 ML VIAL 8 ML INJ (07:37)
[2025-01-26] MEDS: LIDOCAINE HCL 2% 400 MG/20 ML MDV INJ (07:38)
--- NOTE | 2025-01-26 07:39 | W.PM.PROCNOT ---
Date of procedure: 01/26/25 Pre-op diagnosis: Pain due to lumbar spondylosis without myelopathy Post-op diagnosis: same as pre-op Procedure: Procedure: Bilateral L4-5, L5-S1 medial branch block Medications: Bupivacaine 0.25% 6cc The patient was seen and examined in the preoperative holding area.? An informed consent was obtained and placed on the chart.? The patient was brought to the medical procedure unit and placed in the prone position.? A timeout was completed verifying correct patient, procedure site, positioning, plan, and special equipment.? Using aseptic technique, the needle was placed at left L4. Under direct fluoroscopic visualization a Quincke-tipped spinal needle was advanced to the junction of the superior articulating process with the transverse process at the designated medial branch segment.? Preceded by negative aspiration, the above-mentioned injectate was placed in 1 mL aliquots.? The procedure was repeated at left L5, S1.? The needle was removed and insertion site was covered. The same procedure, at the same levels, was completed on the right side. The patient was taken to the postprocedural recovery area and monitored for an appropriate length of time before found suitable for discharge in the company of a responsible adult. Anesthesia: Local Surgeon: Christos Manrique Pathology: none sent Condition: stable Disposition: no change
== END 2025-01-26 07:44 | disposition home or self-care (01) ==
LOC: SURGOUT 06:37
PROVIDERS: PCP Family Medicine; Visit Provider Anesthesiology
DX: M47.816 Spondylosis without myelopathy or radiculopathy, lumbar region (principal); M54.50 Low back pain, unspecified
CPT/HCPCS: 64493; 64494; J0665

== ENCOUNTER 2025-01-29 13:15 | Outpatient (OUT) | payer OTHER, SELFPAY ==
--- OUTSIDE RECORDS SUMMARY | 2024-05-07 11:33 | XMS_ITS ---
Author Organization The [facility] in [place] Address [address] [place] [address] Care Team Providers Care Hand Candle Dipper Name Role Phone Peter Lozano DO Primary Care Provider Arthur Wade [phone] REASON FOR VISIT med order Medications Medication SIG (Take, Route, Fr equency, Duration) Notes Start Date End Date Status Meloxicam 15 MG 1 tablet Orally Once a day for 30 days 05/07/2024 Active Encounters Encounter Location Date Provider Diagnosis [facility] (PODIATRY) [address] [place] [address] [place] [address] 05/07/2024 Arthur Kent Plan Of Treatment Medication Medication Name Sig Start Date Stop Date Notes Meloxicam 15 MG 1 tablet Orally Once a day for 30 days Progress Notes * Alex OHARAaDOB: 2 (44 yo F)Acc No.[id number]:05/07/2024 Patient: Darling COLEMAN :1980 A ge:44 Y S ex:Female Address:[address] [place] [address], [address] * Refills Start Meloxicam Tablet, 15 MG, Orally, 30, 1 tablet, Once a day, 30 days, Refills=2 * true * Date: Generated for Juvenal tay/Dorota/eTransmitting on: 0 01/29/2025 01:18 PM EDT
--- OUTSIDE RECORDS SUMMARY | 2024-06-17 10:30 | XMS_ITS ---
Author Organization The [facility] [place] Address [address] [place] [address] Care Team Providers Care Mincing Machine Operator Name Role Phone Peter Lozano DO Primary Care Provider Arthur Wade [phone] Reason For Referral Reason Referral to [facility] PT Diagnosis 1 Plantar fascial fibr omatosis (M72.2) Referral Organization [facility] (PODIATRY) Referring Provider First Name Arthur Referring Provider Last Name Yoli Referring Provider Speciality Podiatry Referred Provider Specialty Physical The rapist Referral Priority Routine Reason Referral to linden Schmid Diagnosis 1 Plantar fascial fibr omatosis (M72.2) Referral Organization [facility] (PODIATRY) Referring Provider First Name Arthur Referring Provider Last Name Yoli Referring Provider Speciality Podiatry Referred Provider Specialty Pain Medicin e Referral Priority Routine REASON FOR VISIT MRI ([facility] 06.04.24) and EMG review Medications Medication SIG [...] Problem Status W/U Status Risk Notes Problem [id number] Radiculopathy , lumbar region (M54.16) Active confirmed Vital Signs Temperature 97.3 degrees Fahrenheit 06/17/20 Heart Rate 87 /min 06/17/2024 Height 72 in 06/17/2024 Oximetry 94 % 06/17/2024 Encounters Encounter Location Date Provider Diagnosis [facility] (PODIATRY) [address] [place] [address] [place] [address] 06/17/2024 Arthur Kent Plantar fascial fibromatosis M72.2 [...] Referral Date Details 06/18/2024 06/18/2024, Referral to [facility] PT 06/18/2024 06/18/2024, Referral to pain management DR. Schmid Progress Notes * Yany OHARAB: 2 (44 yo F)Acc No.[id number]:06/17/2024 Follow Up Patient: Manuel PAUL Darling Provider: Agusto Kent DPM, MS :1980 A ge:44 Y S ex:Female Date:06/17/2024 Address:[address] [place], [place] [address] Pcp:Peter Lozano, DO Check In:02:25 PM ESTCheck O ut:03:34 PM EST Subjective: * Chief Complaints: * M RI ([facility] .13.24) and EMG review * HPI: Sharmaine [...] DPM, MS Date: 1 08/17/2023 Generated for [facility] maggi/Dorota/eTransmitting on: 0 01/29/2025 01:17 PM EDT History and Physical Notes * HPI [...] 06/18/2024 Arthur Kent , Referral t o [facility] PT 06/18/2024 Arthur Kent , Referral t o pain management DR. Schmid
--- OUTSIDE RECORDS SUMMARY | 2024-06-27 05:22 | XMS_ITS ---
Author Organization [facility] in [place] Address [address] [place] [address] Care Team Providers Care Patient Educator Name Role Phone Peter Lozano DO Primary Care Provider Arthur Wade [phone] Encounters Encounter Location Date Provider Diagnosis [facility] (PODIATRY) [address] [place] [address] [place] [phone] 06/27/2024 Arthur Kent Plan Of Treatment No Information Progress Notes * ADOLFOAINSLEYYanyB: 2 (44 yo F)Acc No.[id number]:06/27/2024 Patient: Darling COLEMAN :1980 A ge:44 Y S ex:Female Address:[address] [place] [address], [phone] * true * Date: Generated for Printi ng/Faxing/eTransmitting on: 0 01/29/2025 01:18 PM EDT
--- OUTSIDE RECORDS SUMMARY | 2024-07-24 10:48 | XMS_ITS | Continuity of Care Document ---
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 [address] [place] [address], [id number], [place]. tel:[phone] PREV VISIT, EST, AGE 40-64 [facility], [address], [place], [id number] , [place] tel:[phone] [facility] annual exam (chief complaint) Encounter for gynecological examination (general) (routine) without abnormal findingsBody mass index [BMI] 31.0-31.9, adultEncounter for screening mammogram for Ca of breastOCP follow up Rx 4 [facility] Koki. [address], [place], [id number], [place]. tel:[phone] PREV VISIT, EST, AGE 40-64 [facility], [address], [place], [id number] , [place] tel: [phone] [facility] annual exam (chief complaint) Encounter for gynecological examination (general) (routine) without abnormal findingsEncounte r for STD screening- STD High risk heterosexual behaviorOCP follow up RxBody mass index [BMI] 34.0-34.9, adult 3 [facility] Koki. [address], [place], [id number], [place]. tel:[phone] OFFICE/OUTPA TIENT VISIT, EST [facility], [address], [place], [id number] , [place] tel: [phone] [facility] Ovarian cyst (chief complaint) Right ovarian cystFamily history of uterine cancerEncounter for screening mammogram for Ca of breastBody mass index [BMI] 36.0-36.9, adult 3 [facility]. [address], [place], [id number], [place]. tel:[phone] PREV VISIT, EST, AGE 40-64 [facility], [address], [place], [id number] , [place] tel:[phone] [facility] annual exam (chief complaint) Encounter for gynecological examination (general) (routine) without abnormal findingsBody mass index [BMI] 33.0-33.9, adultEncounter for STD screeningOther problem related to lifestyleOCP follow up RxEncounter for screening mammogram for Ca of breast 2 [facility]. [address], [place], [id number], [place]. tel:[phone] PREV VISIT, EST, AGE 18-39 [facility], [address], [place], [id number] , [place] tel: [phone] [facility] annual exam (chief complaint) Encounter for gynecological examination (general) (routine) without abnormal findingsBody mass index [BMI] 37.0-37.9, adultPelvic pain in femaleEncounter for screening mammogram for Ca of breastOCP follow up Rx 1 [facility]. [address], [place], [id number], [place]. tel:[phone] [facility], [address] [place] [address], [id number] , [place] tel: [phone] [facility] Abnormal Mammogram 0 [facility] K[facility]. [address], [place], [id number], [place]. 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 [address], [place], [id number], [place]. tel:[phone] [facility], [address] [place] [address], [id number] , [place] tel: [phone] [facility] Abnormal Mammogram 0 [facility]. [address], [place], [id number], [place]. tel:[phone] [facility], [address] [place] [address], [id number] , [place] tel: [phone] [facility] Abnormal Mammogram 9 [facility]. [address], [place], [id number], [place]. tel:[phone] OFFICE/OUTPA TIENT VISIT, EST [facility], [address], [place], [id number] , [place] tel: [phone] [facility] abnormal pap smear (chief complaint) Body mass index (BMI) 29.0-29.9, adultCyst of right breastFibrocysti c disease of breastAtypical squamous cells of undetermined significance on cytologic smear of cervix (ASC-US) 9 [facility]. [address], [place], [id number], [place]. 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 [address], [place], [id number], [place]. tel:[phone] [facility], [address], [place], [id number] , [place] tel: [phone] [facility] Cyst of right breast 8 [facility]. [address], [place], [id number], [place]. tel:[phone] [facility], [address], [place], [id number] , [place] tel: [phone] [facility] Cyst of right breast 8 [facility]. [address], [place], [id number], [place]. tel:[phone] OFFICE/OUTPA TIENT VISIT, [facility], [address], [place], [id number] , [place] tel: [phone] [facility] abnormal pap smear (chief complaint) Body mass index (BMI) 28.0-28.9, adultCIN 2OCP follow up Rx 8 [facility]. [address], [place], [id number], [place]. tel:[phone] [facility], [address], [place], [id number] , [place] tel: [phone] [facility] Fibrocystic disease of breast 8 [facility]. [address], [place], [id number], [place]. tel:[phone] OFFICE/OUTPA TIENT VISIT, [facility], [address], [place], [id number] , [place] tel: [phone] [facility] Leep follow up (chief complaint) Unspecified lump in unspecified breastCIN 2 7 Ty Morris. [address], [place], [id number], [place]. tel:[phone] [facility], [address], [place], [id number] , [place] tel: [phone] [facility] Leep (chief complaint) PEG 2 7 Visci DO Mack. [address], [place], [id number], [place]. tel:[phone] OFFICE/OUTPA TIENT VISIT, [facility], [address], [place], [id number] , [place] tel: [phone] [facility] Colpo (chief complaint) Atypical squamous cells of undetermined significance on cytologic smear of cervix (ASC-US)Cervical high risk HPV DNA test positive 7 Visci DO Frederick. [address], [place], [id number], [place]. tel:[phone] OFFICE/OUTPA TIENT VISIT, EST [facility], [address], [place], [id number] , [place] tel: [phone] [facility] contraception (chief complaint) contraceptive management 7 [facility]. [address], [place], [id number], [place]. tel:[phone] OFFICE/OUTPA TIENT VISIT, EST [facility], [address], [place], [id number] , [place] tel: [phone] [facility] vaginal discharge/itch ing (chief complaint) Vulvovaginitis [facility]. [address], [place], [id number], [place]. tel:[phone] PREV VISIT, EST, AGE 18-39 [facility], [address], [place], [id number] , [place] tel: [phone] [facility] annual exam (chief complaint) - well woman with abnormal findingDysmenorr heaEncounter for STD screeningOther problem related to lifestylecontrac eptive managementEncntr for track coach exam (general) (routine) w/o abn findingsUmbilica l hernia without obstruction and without gangrene [facility]. [address], [place], [id number], [place]. tel:[phone] PREV VISIT, EST, AGE 18-39 [facility], [address], [place], [id number] , [place] tel: [phone] [facility] Update (chief complaint)robin al exam (chief complaint)cont raception (chief complaint) Encounter for general track coach exam without abnormal findingEncounter for STD screeningOther problem related to lifestyle 6 [facility]oki. [address] [place] [address], [id number], [place]. tel:[phone] PREV VISIT, EST, AGE 18-39 [facility], [address], [place], [id number] , [place] tel: [phone] [facility] annual visit (chief complaint) Gynecological ExaminationIrreg ular menstrual cycle 8-201 4 [facility]. [address], [place], [id number], [place]. tel:[phone] PREV VISIT, EST, AGE 18-39 [facility], [address], [place], [id number] , [place] tel: [phone] [facility] No Information 2201 2 Juaquind[address] CORDOVA Erin. [address], [place], [id number]. tel:[phone] PREV VISIT, NEW, AGE 18-39 [facility], [address], [place], [id number] , [place] tel: [phone] [facility] No Information 0-201 0 [place] Maria D. [address] [place] [address], [id number], [place]. tel:[phone] Family History Family Member Type Diagnosis Age [...] Record Payers Payer name Insurance type Covered republican ID Authoriza tion(s) [employer] CFC [id number] Medicaid Wrap - [facility] [place] [id number] Medicaid Wrap - [facility] [place] [id number] Social History Type Description Quantity Date Captured [...] Goal Depression screening. Due on due Goal Hepatitis C screening. Due o n due Goal PRAPARE ASSESSMENT. Due on O due Goal Tdap. Due on due Goal Unhealthy drug use screening . Due on due Goal Lipid panel. Due on 023 due Goal Influenza vaccine. Due on Oc due Goal Hep A. Due on du [...] US EXAM, PELVIC, COMPLETE Appointment date/timeframe: 03/02/2021 ordered Referral Ordered: MAMMOGRAM, SCREENING Appointment date/timeframe: 11/23/2022 ordered Referral Ordered: DX MAMMO INCL CAD BI Bilateral Appointment date/timeframe: 07/14/2019 ordered Referral Ordered: US Exam, Breast(s) Bilateral Appointment date/timeframe: 01/16/2019 ordered Referral Ordered: Referrals: Surgery. Consult Appointment date/timeframe: 02/28/2018 ordered Referral Ordered: Surgery (related to Umbilical hernia without [...] OCPs and desires to continue. 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 . annual exam [...] does take Motrin PRN cramping. 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 She does get [...] doing well with OCPS and denies other LIEN SEARCHER problems was just treated recently for a [...] 1 year she had BTB. Denies other LIEN SEARCHER problems at this time.. abnormal pap smear Additional in formation: Patient is here for repeat pap. Had Leep 06/08. Is currently on OCPs and desires to continue. Was on indomethicin and started to spot and patietn stopped the indomethicin. Desires to continue OCPs [...] denies any symptoms at this time. -Jesus RIVERA contraception Patient has been on nuvaring for 1-2 months and desires to cahnge back to OCPs. Patient was on them in the past without difficulty. Bhumi is using OCPs to regulate menses as [...] is willing to try nuvaring. 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 Physician in [place] has recommended a possible biopsy Functional Status Date Functional Assessmen t No Information Instructions Date Instruction Additional Infor yasmeen Discussed BC options . Patient desires to [...] future. Related to OCP follow up Rx Encouraged good diet arvin intake, exercise and [...] gynecological examination (general) (routine) without abnormal findings Dietary needs education Related to Body mass [...] examination (general) (routine) without abnormal findings Discussed mother's h istory of uterine cancer [...] Related to Family history of uterine cancer Screening mammogram was reschedule as patient has order, but did not keep her last scheduled appt. Related to Encounter for screening mammogram for Ca of breast Discussed ovarian cy st in detail and [...] to Body mass index [BMI] 36.0-36.9, adult Cervical cultures se nt to lab. 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 Recommend calcium [...] next repeat pap. 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 Patient to call in 1 week for results Related to Encounter for STD screening Dietary management e ducation, guidance, and counseling [...] follow up Rx Pap sent to lab. Pat phongn to call in 1 week for result. [...] insurance, but states she gets assistance [place] [facility] [place] Related to Umbilical hernia [...] all follow up appt with physician in [place] for abnormal neck gland, fullness and thyroid. Patient states understanding. Encouraged to start Motrin 800mg every 8 hours around the clock during a heavy menses. Patient to take medication with food. 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
--- OUTSIDE RECORDS SUMMARY | 2025-01-27 20:53 | XMS_ITS | Continuity of Care Document ---
Author Organization [facility] Address [address] [place] [address] Phone Care Team Providers Care Supervisor Drapery Hanging Name Role Phone Blake Peter HOOVER Primary Care Provider Peter Lozano DO Attending Provider Care Teams Patient Care Team Team Status: Active Member Role Status Dates Peter Lozano DO Primary Care Provider Active Visit Care Team Team Status: Inactive Member Role Status Dates Peter Lozano DO Primary Care Provider Active Sta rt: December 05, 2024 End: December 05, 2024 Peter Lozano DO Attending Provider Active Start: December 05, 2024 End: December 05, 2024 Visit Care Team Team Status: Inactive Member Role Status Dates Peter Lozano DO Primary Care Provider Active Sta rt: December 08, 2024 End: December 08, 2024 Peter Lozano DO Attending Provider Active Start: December 08, 2024 End: December 08, 2024 Visit Care Team Team Status: Inactive Member Role Status Dates Peter Lozano DO Primary Care Provider Active Sta rt: January 27, 2025 End: January 27, 2025 Peter Lozano DO Attending Provider Active Start: January 27, 2025 End: January 27, 2025 Chief Complaint and Reason for Visit Chief Complaint Admit Date R73.03 R03.9 E78.5 K21.9 December 05, 2024 6:28am yearly check up/not a wellness December 08, 2024 12:26pm Z12.39 January 27, 2025 8:36a m Reason for Visit Admit Date Hyperlipidemia December [...] Observation Status Observation Response Date of Response Legal Sex Female (finding) Sex Assigned At Female 1980 Family History Relationship Condition Age at Onset Recorded Date/T sarah mother Malignant neoplasm of uterus Unknown Problems Active Problems Medical Problem Onset Date Status Acute right flank pain Unknown Active Epiploic appendagitis Unknown Active Ground-level fall Unknown Active Lump Unknown Active Fatty liver Unknown Active Bilateral foot pain Unknown Active Cyst of right breast Unknown Active Umbilical hernia Unknown Active Hyperglycemia Unknown Active Hyperlipidemia Unknown Active Hypothyroidism Unknown Active Atypical chest pain Unknown Active Pyelonephritis Unknown Active Pyelonephritis Unknown Active DDD (degenerative disc disease), lumbosacral Unk nown Active Body mass index 27.0-27.9, adult Unknown Active Pre-diabetes Unknown Active Knee pain, right Unknown Active Right elbow pain Unknown Active Screening for breast cancer Unknown Acti ve GERD (gastroesophageal reflux disease) Unknown Active Abdominal pain Unknown Active Elbow fracture, right Unknown Active Fall Unknown Active Asthma Unknown Active Fracture of radial neck, right, closed Unknown Active Diffuse cystic mastopathy of right breast Unknow n Active Laceration of knee, left Unknown Active Inactive/Resolved Problems Medical Problem Onset Date Status Contusion of multiple sites Unknown Reso lved Medications Medication Status Dose Units Route Directions Qty Days St art Date Stop Date End Date Instructions Adherence Azithromyci n (Zithromax) 250 mg tablet Discont inued 0 [...] X 5 DAYS, QD X 5 DAYS; Hydrocodone -Acetaminop hen 5-325 mg tablet Discont inued 1 TAB PO EVERY 4-6 HOURS as needed for Pain 19 05December 19, 2023 December 19, 2023 9:39a m Hydrocodone -Acetaminop hen 5-325 mg tablet Discont inued 1 TAB PO EVERY 4-6 HOURS as needed for Pain 16 02December 19, 2023 December 19, 2023 12:03 pm Hydrocodone -Acetaminop hen 5-325 mg tablet Discont inued 1 TAB PO EVERY 4-6 HOURS as needed for Pain 16 02December 19, 2023 December 31, 2023 7:42a m Esomeprazol e Magnesium (Nexium) 40 mg capsule,del ayed release(DR/ EC) Discont inued 40 MG PO Twice daily March 14, 2024 12:00a m 2023 4:43p m Ibuprofen 800 mg Tablet Discont inued 800 MG PO As Directed as needed for Pain 2017 12:00a m Augus t 2019 8:22p m Acetaminoph en-Codeine (Tylenol-Co deine #3) 300-30 mg tablet Discont inued 1 - 2 TAB PO Q6H as needed for pain 30 5 2017 12:00a m Nelda fried 2017 12:00 am Nelda fried 2017 12:02 am Ibuprofen 600 mg tablet Discont inued 600 MG PO Q8H as needed for pain March 12, 2020 12:00a m December 17, 2023 7:36a m Ibuprofen 800 mg tablet Discont inued 800 MG PO Three times daily as needed for Pain December 17, 2023 12:00a m February 13, 2024 3:12p m Hydrocodone -Acetaminop hen 5-325 mg tablet Discont inued 1 TAB PO EVERY 4-6 HOURS as needed for Pain 7 December 17, 2023 December 19, 2023 9:28a m Multivitami n With Minerals (Hair,Skin And Nails) tablet Discont inued 1 TAB PO Every morning January 15, 2024 12:00a m Augus t 2023 2:25p m Levothyroxi ne 88 mcg tablet Discont inued 88 MCG PO Every morning January 15, 2024 12:00a m Novem tiffanie 2023 4:48p m Acetaminoph en-Codeine 300-30 mg tablet Discont inued 1 TAB PO EVERY 4-6 HOURS as needed for pain 20 5 January 29, 2024 12:00a m February 13, 2024 3:12p m Multivitami n With Minerals (Hair,Skin And Nails) tablet Active 1 TAB PO Every morning March 06, 2024 2:25pm Unknown Norgestimat e-Ethinyl Estradiol (Sprintec (28)) 0.25-35 mg-mcg Tablet Discont inued 1 TAB PO Daily [facility] r 2016 12:00a m February 08, 2021 10:37 am Levothyroxi ne 25 mcg Tablet Discont inued 75 MCG PO Daily [facility] r 2016 12:00a m December 19, 2023 2:04p m Albuterol Sulfate (Proventil Hfa) 90 mcg/actuati on Hfa Aerosol Inhaler Discont inued 1 PUFF INHALA TION EVERY 4-6 HOURS as needed for Shortness Of Breath Or Wheezing [facility] r 2016 12:00a m December 19, 2023 2:03p m Lactobacill us Combination No.4 (Probiotic) 3 billion cell Capsule Discont inued 3000 MMU CE[facility]S [facility] 12:[facility] m Nelda [facility] 2017 9:04a m Hydrocodone -Acetaminop hen (Brokaw) 5-325 mg tablet Discont inued 2 TAB PO EVERY 4-6 HOURS as needed for pain 30 [facility] 12:00a m Nelda [facility] 2017 9:04a m Norgestimat e-Ethinyl Estradiol (Mary Lou) 0.25-35 mg-mcg tablet Discont inued 1 TAB PO Daily February 08, 2021 12:00a m December 19, 2023 2:04p m Omeprazole 40 mg capsule,del ayed release(DR/ EC) Discont inued 40 MG PO Daily February 08, 2021 12:00a m December 19, 2023 2:04p m Cephalexin 500 mg capsule Discont inued 500 MG PO Four times daily 40 10 February 08, 2021 12:00a m November 01, 2022 10:30 am Phenazopyri dine (Pyridium) 200 mg tablet Discont inued 200 MG PO Three times daily as needed for pain February 08, 2021 12:00a m November 01, 2022 10:30 am administer with a full glass of water with each meal Ondansetron 4 mg tablet,disi ntegrating Discont inued 4 MG PO Q6H as needed for nausea and vomiting February 08, 2021 12:00a m November 01, 2022 10:30 am Diclofenac Sodium 75 mg tablet,karmen yed release (DR/EC) Discont inued 75 MG PO Twice daily as needed for pain November 01, 2022 12:00a m December 17, 2023 7:36a m Oxycodone-A cetaminophe n 5-325 mg tablet Discont inued 1 TAB PO Q6H as needed for pain 12 November 01, 2022 December 17, 2023 7:36a m Hydrocodone -Acetaminop hen 5-325 mg tablet Discont inued 1 TAB PO EVERY 4-6 HOURS as needed for Pain 28 December 31, 2023 February 13, 2024 3:12p m Esomeprazol e Magnesium (Nexium) 40 mg capsule,del ayed release(DR/ EC) Active 40 MG PO Daily 90 Novemb er 2023 1:00am Unknown Levothyroxi ne 88 mcg tablet Active 88 MCG PO Every morning 90 Novemb er 2023 4:44pm Unknown Cholecalcif stormy (Vitamin D3) 25 mcg (1,000 unit) capsule Discont inued 1 CAP PO Daily December 19, 2023 12:00a m December 27, 2023 2:16p m FreeTextSi capsule Orally Once a day; Note: Source Status: Taking; Provider: Blake Green ( ) Diclofenac Sodium 75 mg tablet,karmen yed release (DR/EC) Discont inued 75 MG PO Twice daily December 19, 2023 12:00a m December 27, 2023 2:17p m Tramadol 50 mg tablet Discont inued 50 MG PO December 19, 2023 12:00a m January 15, 2024 2:27p m Norgestimat e-Ethinyl Estradiol 0.25-35 mg-mcg tablet Active 1 TAB PO Daily at bedtime December 19, 2023 12:00a m Unknown Levothyroxi ne 88 mcg tablet Discont inued 88 MCG PO Daily December 19, 2023 12:00a m December 19, 2023 2:09p m Furosemide (Lasix) 40 mg tablet Discont inued 40 MG PO Daily December 19, 2023 12:00a m December 27, 2023 2:17p m FreeTextSi tablet Orally Once a day; Note: Source Status: Continueprn; Provider: Blake Liz Albuterol Sulfate (Proair Hfa) 90 mcg/actuati on HFA aerosol inhaler Active 2 PUFF INHALA TION Every 4 hours December 19, 2023 12:00a m FreeTextSi puffs as needed Inhalation every 4 hrs; Note: Source Status: RefillPRN; Refills: 1; Provider: Blake Liz Unknown Ibuprofen 800 mg tablet Discont inued 800 MG PO Three times daily December 19, 2023 12:00a m December 27, 2023 2:17p m Omeprazole 40 mg capsule,del ayed release(DR/ EC) Discont inued 1 CAP PO Every morning December 19, 2023 12:00a m Augus t 2023 12:43 pm FreeTextSi capsule 30 minutes before morning meal Orally Once a day; Note: Source Status: Taking; Refills: 3; Provider: Blake Liz Potassium Chloride 10 mEq tablet,ER particles/c rystals Discont inued 10 MEQ PO Daily December 19, 2023 12:00a m December 27, 2023 2:18p m Betamethaso ne Valerate 0.1 % cream Discont inued 1 APPLIC TOPICA L Twice daily December 19, 2023 12:00a m December 27, 2023 2:16p m FreeTextSi application Externally Twice a day; Note: Source Status: Taking; Refills: 0; Qty: 45 Gram; Provider: Blake Liz Lactobacill us Combination No.9 (Adult 50 Plus Probiotic) 4 billion cell capsule Discont inued PO December 19, 2023 12:00a m December 27, 2023 2:17p m Multivitami n (Daily Multi-Vitam in) tablet Active 1 TAB PO Every morning December 19, 2023 12:00a m Unknown Levothyroxi ne 88 mcg tablet Discont inued 88 MCG PO Daily 90 December 19, 2023 2:08pm January 15, 2024 2:28p m Baclofen 10 mg tablet Active 10 MG PO Twice daily as needed December 08, 2024 12:00a m Unknown Meloxicam 7.5 mg tablet Active 7.5 MG PO Twice daily as needed December 08, 2024 12:00a m Unknown Meclizine 25 mg tablet Active 25 MG PO Every 6 hours as needed for motion sickness December 08, 2024 12:00a m Unknown Immunizations Immunization Event Date Not Given Reason Dose Number Brush Polisher Lot Number Vaccine Information Statement (VIS) Detail Administration Location Quadrivalent Influenza June 07, 2022 Tetanus, Diphtheria, Pertussis (Tdap) February 18, 2018 Tetanus, Diphtheria, Pertussis (Tdap) December 17, 2023 [id number] [facility] Medical Equipment Device Date Implanted Device Details MESH FLAT SHEET [id number] April 24, 2017 Procedures Procedure Date Performed Status MM screening mammo BI w/CAD January 27, 2025 8:36a m completed Relevant Diagnostic Tests and/or Laboratory Data Laboratory Results Test Collection Date/Time Result Date/Time Result Interpretation Reference Range Result Comment Performing Site Corrected White Blood Count December 05, 2024 6:52am December 05, 2024 7:36am 7.1 10*3/uL 3.8-11.6 [facility] [id number] [address] [facility] [id number] Uncorrect ed WBC Count December 05, 2024 6:52am December 05, 2024 7:36am 7.1 10*3/uL 3.8-11.6 [facility] [id number] [address] [facility] [address] Red Blood Count December 05, 2024 6:52am December 05, 2024 7:36am 4.14 10*6/uL 3.60-5.00 [facility] [id number] [address] [facility] [address] Hemoglobi n December 05, 2024 6:52am December 05, 2024 7:36am 12.1 g/dL 11.8-15.4 [facility] [id number] [address] [facility] [address] Hematocri t December 05, 2024 6:52am December 05, 2024 7:36am 36.1 % 34.0-46.4 [facility] [id number] [address] [facility] [address] Mean Corpuscul ar Volume December 05, 2024 6:52am December 05, 2024 7:36am 87.0 fL 80-100 [facility] [id number] [address] [facility] [address] Mean Corpuscul ar Hemoglobi n December 05, 2024 6:52am December 05, 2024 7:36am 29.1 pg 24.7-34.3 [facility] [id number] [address] [facility] [address] Mean Corpuscul ar Hemoglobi n Concent December 05, 2024 6:52am December 05, 2024 7:36am 33.5 g/dL 32.0-35.0 [facility] [id number] [address] [facility] [address] Red Cell Distribut ion Width December 05, 2024 6:52am December 05, 2024 7:36am 12.7 % 11.9-15.3 [facility] [id number] [address] [facility] [address] Platelet Count December 05, 2024 6:52am December 05, 2024 7:36am 296 10*3/uL 150-450 [facility] [id number] [address] [facility] [address] Mean Platelet Volume December 05, 2024 6:52am December 05, 2024 7:36am 7.7 fL 6.3-10.7 [facility] [id number] [address] [facility] [address] Neutrophi ls (%) (Auto) December 05, 2024 6:52am December 05, 2024 7:36am 66.4 % . [facility] [id number] [address] [facility] [address] Lymphocyt es (%) (Auto) December 05, 2024 6:52am December 05, 2024 7:36am 23.9 % . [facility] [id number] [address] [facility] [address] Monocytes (%) (Auto) December 05, 2024 6:52am December 05, 2024 7:36am 7.2 % . [facility] [id number] [address] [facility] [address] Eosinophi ls (%) (Auto) December 05, 2024 6:52am December 05, 2024 7:36am 1.7 % . [facility] [id number] [address] [facility] [address] Basophils (%) (Auto) December 05, 2024 6:52am December 05, 2024 7:36am 0.8 % . [facility] [id number] [address] [place], [place] [address] Nucleated RBC Relative Count (auto) December 05, 2024 6:52am December 05, 2024 7:36am 0.0 /100{WB C} 0-0.5 [facility] [id number] [address] [place], [place] [address] Neutrophi ls # (Auto) December 05, 2024 6:52am December 05, 2024 7:36am 4.7 10*3/uL 1.8-7.7 [facility] [id number] [address] [place], [place] [address] Lymphocyt es # (Auto) December 05, 2024 6:52am December 05, 2024 7:36am 1.7 10*3/uL 1.00-4.8 [facility] [id number] [address] [place] [address] Monocytes # (Auto) December 05, 2024 6:52am December 05, 2024 7:36am 0.5 10*3/uL 0.0-0.8 [facility] [id number] [address] [place], [place] [address] Eosinophi ls # (Auto) December 05, 2024 6:52am December 05, 2024 7:36am 0.1 10*3/uL 0.0-0.45 [facility] [id number] [address] [place], [place] [address] Basophils # (Auto) December 05, 2024 6:52am December 05, 2024 7:36am 0.1 10*3/uL 0.0-0.2 [facility] [id number] [address] [place] [id number] Glucose Level December 05, 2024 6:52am December 05, 2024 8:04am 98 mg/dL 70-100 ADA recommended reference rangeRandom Glucose Reference Range is dependent on time and content of last meal. Glucose of more than 200 mg/dL in a nonstressed, ambulatory subject supports the diagnosis of Diabetes Mellitus. [facility] [id number] [address] [place] [id number] Blood Urea Nitrogen December 05, 2024 6:52am December 05, 2024 8:04am 16 mg/dL 7-25 [facility] [id number] [address] [place], [place] [address] Creatinin e December 05, 2024 6:52am December 05, 2024 8:04am 0.50 mg/dL Below low normal 0.60-1.20 [facility] [id number] [address] [place] [id number] Estimated GFR (CKD-EPI) December 05, 2024 6:52am December 05, 2024 8:04am > 60.0 mL/Min [facility] [id number] [address] [place], [place] [address] Sodium Level December 05, 2024 6:52am December 05, 2024 8:04am 139 mmol/L 136-145 [facility] [id number] [address] [place] [id number] Potassium Level December 05, 2024 6:52am December 05, 2024 8:04am 4.4 mmol/L 3.5-5.1 [facility] [id number] [address] [place] [id number] Chloride Level December 05, 2024 6:52am December 05, 2024 8:04am 105 mmol/L 98-107 [facility] [id number] [address] [place] [id number] Carbon Dioxide Level December 05, 2024 6:52am December 05, 2024 8:04am 29.8 mmol/L 21.0-31.0 [facility] [id number] [address] [facility] [address] Anion Gap December 05, 2024 6:52am December 05, 2024 8:04am 8.6 mEq/L 6.0-15.0 [facility] [id number] [address] [place] [address] Calcium Level December 05, 2024 6:52am December 05, 2024 8:04am 8.5 mg/dL Below low normal 8.6-10.3 [facility] [id number] [address] [place], [place] [address] Total Protein December 05, 2024 6:52am December 05, 2024 8:04am 6.0 g/dL Below low normal 6.4-8.9 [facility] [id number] [address] [place] [address] Albumin December 05, 2024 6:52am December 05, 2024 8:04am 3.7 g/dL 3.5-5.7 [facility] [id number] [address] [place] [address] Globulin December 05, 2024 6:52am December 05, 2024 8:04am 2.3 g/dL [facility] [id number] [address] [place], [place] [address] Albumin/G lobulin Ratio December 05, 2024 6:52am December 05, 2024 8:04am 1.6 [facility] [id number] [address] [place] [address] Total Bilirubin December 05, 2024 6:52am December 05, 2024 8:04am 0.3 mg/dL 0.3-1.0 [facility] [id number] [address] [place] [address] Aspartate Amino Transf (AST/SGOT ) December 05, 2024 6:52am December 05, 2024 8:04am 12 U/L Below low normal 13-39 [facility] [id number] [address] [place] [address] Alanine Aminotran sferase (ALT/SGPT ) December 05, 2024 6:52am December 05, 2024 8:04am 6 U/L Below low normal 7-52 [facility] [id number] [address] [facility] [address] Alkaline Phosphata se December 05, 2024 6:52am December 05, 2024 8:04am 42 U/L 34-104 [facility] [id number] [address] [facility] [address] Cholester ol Level December 05, 2024 6:52am December 05, 2024 8:04am 151 mg/dL 140-200 Chol less than 200 mg/dl low riskChol 201-239 mg/dl borderline riskChol 240 mg/dl and greater high risk [facility] [id number] [address] [facility] [address] HDL Cholester ol December 05, 2024 6:52am December 05, 2024 8:04am 50 mg/dL 23-92 HDL CHOL ATP-III CLASSIFICATI ON Cardiovascul ar RiskHDL > or equal to 60 mg/dL LOWHDL < 40 mg/dL HIGH [facility] [id number] [address] [facility] [address] Triglycer ides Level December 05, 2024 6:52am December 05, 2024 8:04am 83 mg/dL 0-149 TRIG ATP III CLASSIFICATI ONTRIG less than 150 mg/dL NormalTRIG 150-199 mg/dL Borderline highTRIG 200-500 mg/dL High TRIG greater than 500 mg/dL Very highStandard traceable to the Center for Disease Conrtrol and Prevention (CDC) test method. [facility] [id number] [address] [facility] [address] LDL Cholester ol, Calculate d December 05, 2024 6:52am December 05, 2024 8:04am 84 mg/dL 0-100 LDL ATP III CLASSIFICATI ONLDL less than 100 mg/dL OptimalLDL 100-129 mg/dL Near or above optimalLDL 130-159 mg/dL Borderline highLDL 160-189 mg/dL HighLDL greater than 189 mg/dL Very high [facility] [id number] [address] [facility] [address] VLDL Cholester ol December 05, 2024 6:52am December 05, 2024 8:04am 16 mg/dL [facility] [id number] [address] [place] [id number] Cholester ol/HDL Ratio December 05, 2024 6:52am December 05, 2024 8:04am 3.0 <5.0 [facility] [id number] [address] [place], [place] [address] Free Thyroxine December 05, 2024 6:52am December 05, 2024 8:22am 1.01 ng/dL 0.61-1.12 [facility] [id number] [address] [place], [place] [address] Thyroid Stimulati ng Hormone 3rd Gen December 05, 2024 6:52am December 05, 2024 8:18am 0.30 u[iU]/m L Below low normal 0.45-5.33 [facility] [id number] [address] [place], [place] [address] Pharmacy Creatinin e Clearance (Chem December 05, 2024 6:52am December 05, 2024 8:04am N/A [facility] [id number] [address] [place], [place] [address] Hemoglobi n A1c December 05, 2024 6:52am December 05, 2024 9:23am 5.7 % Above high normal 4.3-5.6 Increased risk for diabetes: 5.7 - 6.4diabetes: >6.4glycemic control for adults with diabetes: <7.0 [facility] [id number] [address] [place], [place] [address] Estimated Average Glucose December 05, 2024 6:52am December 05, 2024 9:23am 117 mg/dL [facility] [id number] [address] [place], [place] [address] Diagnostic Imaging Reports Author Osmani tSovall [facility] Report Date/Time January 27, 2025 9:02a m [facility] [address] [facility] [address] [place], [place] [id number] Mammography Report Signed Patient: Darling Ohara MR#: [id number] : 1980 Acct:[id number] Age/Sex: 44 / F Adm Date: 5 Loc: MS Room: Type: [facility] CLI Attending Dr: Peter Lozano DO Ordering Provider: Peter Lozano DO Date of Service: 01/27/25 Procedure(s): MM screening mammo BI w/CAD Accession Number(s): ([id number]) MM/MM screening mammo BI w/CAD: Z12.39 - Encounter for other screening for malignant neop... Copies to: Peter Lozano DO~ BILATERAL Screening Full Field digital mammogram with 3-D imaging. Full field digital CC and MLO imaging performed. CAD utilized. COMPARISON: 12/03/2023 HISTORY: Annual screening BREAST COMPOSITION: The breast parenchyma is heterogeneously dense. BREAST CALCIFICATIONS: Benign calcifications present. VASCULAR CALCIFICATIONS: None ARCHITECTURAL DISTORTION: None BREAST NODULE: None AXILLARY LYMPH NODES: Normal POSTSURGICAL CHANGES: Stable right lumpectomy changes MM/MM screening mammo BI w/CAD IMPRESSION: No mammographic evidence of malignancy. Routine follow-up recommended in one year. RESULT CODE: 2 Benign Findings(s) DENSITY CODE: 3 (approximately 51-75% glandular) The breasts are heterogeneouslydense, which may obscure small masses. FOLLOW UP: 1YR THE FALSE-NEGATIVE RATE OF MAMMOGRAPHY IS APPROXIMATELY 10%. IMAGING OF A PALPABLE ABNORMALITY MUST BE BASED ON CLINICAL GROUNDS. PATIENT WAS ENTERED INTO A REMINDER SYSTEM WITH A TARGET DUE DATE FOR THE NEXT MAMMOGRAM. Impression dictated by: Osmani Stovall M.D. 01/27/2025 9:02 AM Dictation Location: [facility] Dictated By: Osmani Stovall DO 01/27/25 0859 Signed By: <Electronically signed by Osmani Stovall DO in OV> 01/27/25 0902 Vital Signs Vital Reading Result Reference Range [...] Directives No March 3:21pm Insurance Providers Guarantor Darlingtheo Santoronelson Address [address] [facility] [facility] [address] [facility] [address] [facility] [address] Contact Info. Home Phone: Payer Policy Id Subscriber's Name Subscriber Id Effective Date Expiration Date [employer] [id number] Darling Ohara [id number] Encounters Encounter Location(s) Arrival/Admit Date Discharge/Depart Date Provider(s) Departed Clinical -Lab [facility] December 05, 2024 6:28am December 05, 2024 6:29am Agusto Gamez DO Departed Physician/Prov ider Office Visit -[facility] [place] December 08, 2024 12:26pm December 08, 2024 1:29pm Agusto Gamez DO Dep[facility]ed [facility] January 27, 2025 8:36am January 27, 2025 8:37am Agusto Gamez DO Recent Diagnosis Onset Date Admit Date Hyperlipidemia Unknown December 08, 2024 1 2:26pm Hypothyroidism Unknown December 08, 2024 1 2:26pm Pre-diabetes Unknown December 08, 2024 1 2:26pm Screening for breast cancer Unknown December 08, 2024 12:26pm Assessments Author Mercedes Ricketts [facility] Authored December 08, 2024 12:48 pm Sooner if needed, the ER if concerns,The above note written by Mercedes Ricketts LPN acting as human recorder, note dictated by Dr. Peter Loazno Plan of Treatment Author Mercedes Ricketts [facility] Authored December 08, 2024 1:24p m Blood [...] December 08, 2024 1:2 5pm 5 Months Future Visits Future appointment information is unavailable [...]
--- OUTSIDE RECORDS SUMMARY | 2025-01-29 13:18 | XMS_ITS | Encounter Summary ---
Author Organization [facility] Address [address] [place] [address] Care Team Providers Care Patient Consumer Marketer Name Role Phone Peter Lozano DO Primary Care Provider [phone] Encounter Details Date Type Department Care Team (Late st Contact Info) Description 10/01/[address] [facility] [address] [place] [id number] Bonifacio Lara DO [address] [place] [address] Social History Tobacco Use Types Packs/Day Years [...] on filedocumented in this encounter Care Teams Patient Consumer Marketer Relationship Specialty Start Date End Date Peter Lozano DO PCP - General 01/25/23 documented as of this encounter
--- OUTSIDE RECORDS SUMMARY | 2025-01-29 13:18 | XMS_ITS | Clinical Summary ---
Author Organization [facility] Address [address] [place] [address] Care Team Providers Care Serologist Name Role Phone Peter Lozano DO Primary Care Provider [phone] Allergies Active Allergy Reactions Criticality Noted Date [...] FOR 90 DAYS 09/11/2023 Active HYDROcodone-nury taminophen ([place]) 5-325 MG tablet TAKE 1 TABLET BY [...] 11/26/2017 Chronic pain of right knee 11/12/2017 Immunizations Immunization Administration Dates Next Due Tdap [...] EST Plan of Treatment Not on file Insurance [employer] Care Teams Serologist Relationship Specialty Start Date End Date Peter Lozano DO PCP - General 01/25/23
--- OUTSIDE RECORDS SUMMARY | 2025-01-29 13:18 | XMS_ITS | Encounter Summary ---
Author Organization [facility] Address [address] [place] [address] Care Team Providers Care Esters And Emulsifiers Supervisor Name Role Phone Peter Lozano DO Primary Care Provider [phone] Encounter Details Date Type Department Care Team (Late st Contact Info) Description 02/28/[address] [facility] [address] [place] [id number] Peter Lozano DO [address] [place] [id number] Social History Tobacco Use Types Packs/Day Years [...] on filedocumented in this encounter Care Teams Esters And Emulsifiers Supervisor Relationship Specialty Start Date End Date Peter Lozano DO PCP - General 01/25/23 documented as of this encounter
--- OUTSIDE RECORDS SUMMARY | 2025-01-29 13:19 | XMS_ITS | Encounter Summary ---
Author Organization [facility] Address [address] [place] [address] Care Team Providers Care Straight Slicing Machine Operator Name Role Phone Peter Lozano Primary Care Provider [phone] Source Comments In the event this information is protected by the Federal Confidentiality of Alcohol and Drug AbusePatient Records regulations: The Federal rules restrict any use of the information to criminally investigate or prosecute any alcohol or drug abuse patient.[facility] Encounter Details Date Type Department Care Team (Late st Contact Info) Description 03/29/2021 Patient Msg General Surgery [address] [place] [address] Provider, [facility] Appointment on 04/07 Social History [...] N ot on file 06/30/2020 Data from: https://www.neighborhoodatlas.medicine.[facility].edu/. Last address used for calculation Not [...] on filedocumented in this encounter Care Teams Straight Slicing Machine Operator Relationship Specialty Start Date End Date Peter Lozano DO [facility] [place] [address] PCP - General Family Medicine 11/22/15 documented as of this encounter
--- OUTSIDE RECORDS SUMMARY | 2025-01-29 13:19 | XMS_ITS | Encounter Summary ---
Author Organization [facility] Address [address] [place] [address] Care Team Providers Care Special Effects Artist Name Role Phone Peter Lozano DO Primary Care Provider [phone] Encounter Details Date Type Department Care Team (Late st Contact Info) Description 12/31/2023 External Result Encounter [facility] External Department Unsolicited Bonifacio Lara DO [address] [place] [address] Social History Tobacco Use Types Packs/Day Years [...] Ayleen Zheng M.D.12/31/2023 12:14 PM Dictation Location: [place] [address] Tech: Nellie Solis Transcribed By: ADIA 12/31/23 1214 Dictated By: Ayleen Zheng MD 12/31/23 1206 Signed By: <Electronically signed by MD Ayleen Zheng in OV> 12/31/23 1214 Narrative 12/31/2023 12:16 PM EDT [facility] [address] Ultrasound Report Signed Patient: Darling Ohara MR#: [id number] : 1980 Acct:[id number] Age/Sex: 43 / F ADM Date: 12/31/23 Loc: Room: Type: [facility] Attending Dr: Bonifacio Lara DO Ordering Provider: [...] limited Procedure Note Radiology, Radiologist, - 12/31/2023 [facility] Main [place] [address] [place] [address] Ultrasound Report Signed Patient: Darling Ohara LMR#: [id number] : 1980Acct:[id number] Age/Sex: 43 / FADM Date: 12/31/23 Loc: Room:Type: [facility] Attending Dr: Bonifacio Lara DO Ordering Provider: [...] Ayleen Zheng M.D.12/31/2023 12:14 PM Dictation Location: [place] [address] Tech: [facility] Transcribed By: [facility] 12/31/23 1214 Dictated By: Ayleen Zheng MD 12/31/23 1206 Signed By: <Electronically signed by MD Ayleen Zheng in OV> 12/31/23 1214 us Bonifacio Lara DO IMG US PROCEDURES Final R esult documented in this encounter Visit Diagnoses Not on filedocumented in this encounter Care Teams Special Effects Artist Relationship Specialty Start Date End Date Peter Lozano DO PCP - General 01/25/23 documented as of this encounter
--- OUTSIDE RECORDS SUMMARY | 2025-01-29 13:19 | XMS_ITS | Clinical Summary ---
Author Organization [facility] Address [address] [place] [address] Phone Care Team Providers Care Asphalt Roller Person Name Role Phone AcGuillermo silva Esteban HOOVER Primary Care Provider [phone] Social History Tobacco Use Types Packs/Day Years Used Date Smoking Tobacco: Never Assessed Comments Unknown Sex and Gender Information Value Date Recorded Sex Assigned at Not on file Legal Sex Female 11:36 AM EST Gender Identity Not on file Sexual Orientation Not on file Plan of Treatment Health Maintenance Due Date Last Done Comments HIV Screening 1980 Lipid Panel 1982 MMR Vaccines (1 of 1 - Standard series) 1983 Varicella Vaccines (1 of 2 - 13+ 2-dose series) 1995 Hepatitis C Screening 2000 Hepatitis B Vaccines (1 of 3 - 19+ 3-dose series) 2001 HPV/Cotest 2003 DTaP/Tdap/Td Vaccines (1 - Tdap) 2004 Mammogram 2022 Cervical Cancer Screening 12/29/2022 Pap Smear 12/29/2022 12/30/2019 Yearly Adult Physical 05/09/2023 05/08/2022 , 02/28/2021, 12/30/2019 COVID-19 Vaccine ( - 2023-2 5 season) 2024 Influenza Vaccine (#1) 2025 Zoster Vaccines (1 of 2) 2032 HIB Vaccines Aged Out No longer eligi ble based on patient's age to complete this topic HPV Vaccines (No Doses Required) Completed Hepatitis A Vaccines Aged Out No long er eligible based on patient's age to complete this topic IPV Vaccines Aged Out No longer eligi ble based on patient's age to complete this topic Meningococcal Vaccine Aged Out No matty guanakito eligible based on patient's age to complete this topic Pneumococcal Vaccine: Pediatrics and At-Risk Adult Patients Aged Out No longer eligible b ased on patient's age to complete this topic Rotavirus Vaccines Aged Out No longer eligible based on patient's age to complete this topic Care Teams Asphalt Roller Person Relationship Specialty Start Date End Date Guillermo Lozano DO PCP - General 11/30/15
--- OUTSIDE RECORDS SUMMARY | 2025-01-29 13:19 | XMS_ITS | Encounter Summary ---
Author Organization [facility] Address [address] [place] [address] Phone Care Team Providers Care Baked Goods Stock Clerk Name Role Phone Guillermo Lozano DO Primary Care Provider [phone] Encounter Details Date Type Department Care Team (Late st Contact Info) Description 03/25/2023 Patient Risk Score [facility] Care Management [address] [place] [address] Social History Tobacco Use Types [...] on filedocumented in this encounter Care Teams Baked Goods Stock Clerk Relationship Specialty Start Date End Date Guillermo Lozano DO PCP - General 11/30/15 documented as of this encounter
--- OUTSIDE RECORDS SUMMARY | 2025-01-29 13:19 | XMS_ITS | Encounter Summary ---
Author Organization [facility] Address [address] [place] [address] Phone Care Team Providers Care Washtub Worker Name Role Phone Guillermo Lozano DO Primary Care Provider [phone] Encounter Details Date Type Department Care Team (Late st Contact Info) Description 02/22/2023 Patient Risk Score ACO Care Management [address] [place] [address] Social History Tobacco Use Types [...] on filedocumented in this encounter Care Teams Washtub Worker Relationship Specialty Start Date End Date Guillermo Lozano DO PCP - General 11/30/15 documented as of this encounter
--- OUTSIDE RECORDS SUMMARY | 2025-01-29 13:19 | XMS_ITS | Encounter Summary ---
Author Organization [facility] Address [address] [place] [address] Phone Care Team Providers Care Bookbinder Apprentice Name Role Phone Guillermo Lozano DO Primary Care Provider [phone] Encounter Details Date Type Department Care Team (Late st Contact Info) Description 01/22/2023 Patient Risk Score ACO Care Management [address] [place] [address] Social History Tobacco Use Types [...] on filedocumented in this encounter Care Teams Bookbinder Apprentice Relationship Specialty Start Date End Date Guillermo Lozano DO PCP - General 11/30/15 documented as of this encounter
--- OUTSIDE RECORDS SUMMARY | 2025-01-29 13:19 | XMS_ITS | Patient Health Record ---
Author Organization [facility] Address [address] [place] [address] [place] [address] Care Team Providers Care Jewel Setter Name Role Phone Guillermo Lozano DO Primary Care Provider UnavailDylan Zaragoza Unavailable [phone] Reason For Referral No Information Problems Problem Type SNOMED Code ICD Code Onset Dates Problem Status W/U Status Risk Notes Problem Plantar wart (61893353) Plantar wart (078.12) Active confirmed Problem Pain in limb (34051898) Pain in soft tissues of limb (729.5) Active confirmed Plan Of Treatment No Information Medical (General) History Medical History History ICD Code asthma fractured jaw Surgical History Surgery Date(Month/Year) jaw
--- OUTSIDE RECORDS SUMMARY | 2025-01-29 13:19 | XMS_ITS | Clinical Summary ---
Author Organization [facility] Address [address] [place] [address] Care Team Providers Care Contractor General Building Name Role Phone Peter Lozano Agusto HOOVER Primary Care Provider [phone] Allergies Active Allergy Reactions Criticality Noted Date [...] N ot on file 06/30/2020 Data from: https://www.neighborhoodatlas.medicine.[facility].edu/. Last address used for calculation Not [...] Covid-19 Vaccine ( season) 2024 Influenza Vaccine (#1) 2025 DTaP,Tdap,Td Vaccine (2 - Td or Tdap) 02/19/2028 Insurance [employer] Care Teams Contractor General Building Relationship Specialty Start Date End Date Peter Lozano DO [address] [place] [address] PCP - General Family Medicine 11/22/15
--- OUTSIDE RECORDS SUMMARY | 2025-01-29 13:19 | XMS_ITS | Patient Health Record ---
Author Organization [facility] [place] Address [address] [place] [address] Care Team Providers Care Manager Room Name Role Phone Peter Lozano DO Primary Care Provider Robert Wade [phone] Allergies No Known Allergies Results Component Value Reference Range Notes XR foot KG min 3V (Not yet reviewed by provider) Interpretation: Performing Lab: Notes/Report: Source Facility: [place] [address] XRay Report Signed Patient: Des Ohara MR#: [id number] : 1980 Acct:[id number] Age/Sex: 43 / F ADM Date: 03/25/24 Loc: EC Attending Dr: Robert Kent D.P.M. Ordering Physician: Robert Kent D.P.M. Date of Service: 03/25/24 Procedure(s): XR foot KG min 3V Accession Number(s): [id number] cc: Robert Kent D.P.M.; Physician,Non-Staff MBrittanie [place] [address] Patient Name: DES OHARA MRN: [id number] date: 1980 Sex: F Assigned Patient Location: Current Patient Location: Accession/Order Number: [id number] Exam Date: 03/25/2024 13:45 Report Date: 03/26/2024 [...] M.D. Signed By: 03/26/24840 DD/ 7 TD/TT: Clinical Psychiatrist: [place] [address] XRay Report Signed Patient: Teresa Ohara MR#: [id number] : 1980 Acct:[id number] Age/Sex: 43 / F ADM Date: 03/25/24 Loc: EC Attending Dr: Robert Kent D.P.M. Ordering Physician: Robert Kent D.P.M. Date of Service: 03/25/24 Procedure(s): XR anjelica t KG min 3V Accession Number(s): [id number] cc: Robert Kent D.P.M.; Physician,Non-Staff [place] [id number] Patient Name: DES OHARA MRN: [id number] date: 1980 Sex: F Assigned Patient Location: Current Patient Location: Accession/Order Numb er: [id number] Exam Date: 03/25/2024 13:45 Report Date: 03/26/2024 [...] spurring is seen. Electronically authe nticated by: MARGARET BOWEN Date: 03/26/2024 08:38 Dictated By: Margaret Bowen M.D. Signed By: 03/26/24840 DD/ 7 TD/TT: Clinical Psychiatrist: Reason For Referral Reason evaluation and treat ment -- see attached order Diagnosis 1 Right foot pain (M79 .671) Referral Organization [facility] Referring Provider First Name Robert Referring Provider Last Name [facility] Referring Provider Speciality Podiatry Referred Provider [facility] Referred Provider Specialty Physical Med icine and Rehabilitation Referral Priority Routine Reason BLE EMG Diagnosis 1 Sciatica, left side (M54.32) Referral Organization [facility] ([facility]) Referring Provider First Name Robert Referring Provider Last Name [facility] Referring Provider Speciality Podiatry Referred Provider [facility] Referred Provider Specialty Neurology Referral Priority Routine Reason Referral to [facility] [place] PT Diagnosis 1 Plantar fascial fibr omatosis (M72.2) Referral Organization [facility] ([facility]) Referring Provider First Name Robert Referring Provider Last Name [facility] Referred Provider Specialty Physical [facility] Referral Priority Routine Reason Referral to linden Schmid Diagnosis 1 Plantar fascial fibr omatosis (M72.2) Referral Organization [facility] ([facility]) Referring Provider First Name Robert Referring [...] Problem Status W/U Status Risk Notes Problem 26554374 Other specified acquired deformities of right lower leg (M21.861) Active confirmed Problem 474835109 Other specified acquired deformities of left lower leg (M21.862) Active confirmed Problem 174818570 Contracture, right ankle (M24.571) Active confirmed Problem 707796728 Contracture, left ankle (M24.572) Active confirmed Problem 608246021 Radiculopathy, lumbar region (M54.16) Active confirmed Problem 857835197886423 Sciatica, left side (M54.32) Active confirmed Problem 25280502886804141 Plantar fascia l fibromatosis (M72.2) Active confirmed Vital Signs Heart Rate 87 /min 06/17/2024 Temperature 97.3 degrees Fahrenheit 06/17/2024 Respiratory Rate 16 /min 05/07/2024 Oximetry 94 % 06/17/2024 Height 72 in 06/17/2024 Weight 260 lbs 05/07/2024 BMI 35.26 kg/m2 05/07/2024 Encounters Encounter Location Date Provider Diagnosis [facility] [address] [place] [address] [place] [address] 03/25/2024 Robert Kent Plantar fascial fibromatosis M72.2 ; Sciatica, left side M54.32 ; Other specified acquired deformities of right lower leg M21.861 ; Other specified acquired deformities of left lower leg M21.862 ; Corns and callosities L84 ; Right foot pain M79.671 and Left foot pain M79.672 [facility] [address] [place] [address] [place] [address] 05/07/2024 Robert Kent Plantar fascial fibromatosis M72.2 ; Contracture, left ankle M24.572 ; Sciatica, left side M54.32 ; Contracture, right ankle M24.571 and Left foot pain M79.672 [facility] [address] [place] [address] [place] [address] 06/17/2024 Robert Kent Plantar fascial fibromatosis M72.2 ; Contracture, left ankle M24.572 ; Radiculopathy, lumbar region M54.16 and Sciatica, left side M54.32 [facility] [address] [place] [address] [place] [address] 05/07/2024 Robert Kent [facility] [address] [place] [address] [place] [address] 05/07/[address] [facility] [address] [place] [address] [place] [address] 05/07/2024 Robert Kent [facility] [address] [place] [address] [place] [address] 06/27/2024 Robert Kent Assessments Encounter Date Diagnosis (ICD Code) Assessment Notes Treatment Notes Treatment Clinical Notes Section Notes 03/25/2024 Plantar fascial fibromatosis (ICD-10 - M72.2) Patient is a 43-year-old female who had plantar fasciitis roughly 5 years ago and responded to nonsurgical treatment by an outside provider. She does have custom inserts and she may consider replacing these with new oywe-izk-dhpewcd inserts and I also discussed shoe modification. I emphasized the importance of Achilles tendon stretching and prescribed formal physical therapy. Physical therapy may also address her ongoing low back pain and sciatica. I did explain how low back pain can impact her foot pain.She can take ibuprofen but is allergic to another NSAID which she cannot remember. She may take ibuprofen ftuo-ajn-gxpulxg as needed and I did prescribe Medrol [...] Date [employer] [place] [employer] [address] [place] [address] [id number] Des Oahra Self - patient is the insured Medical (General) History Medical History History ICD Code GERD fatty liver thyroid issues Surgical History Surgery Date(Month/Year) hernia surgery 2023 right breast cyst removed hernia surgery 2016 branchial cleft cyst removed on neck jaw broke and 4 wisdom teeth extracted
--- NOTE | 2025-01-29 13:34 | P.CN_ITS ---
Consult Note: HPI Data of Consult Patient: known to practice within the last 3 years Consult date: 12/17/24 Requesting Physician: Anastasiya Thomas NP Primary Care Provider: Peter Lozano DO Consult Narrative Reason for consult: low back, left hip pain Narrative: 44yof who presents for evaluation. increasing low back pain. pt has failed to benefit from > 6 weeks of PT and provider guided HEP, heat, ice, tylenol and nsaids. recently has not needed meloxicam or baclofen. continues to have moderate to severe low back and left hip pain. today pain 1-2/10 increasing to 8/10 with standing, walking, sitting, lifting, bending. recently underwent lumbar MRI with results below. recently underwent bilateral L4-5 L5-S1 MBB #1 with >80% improvement in pain and functional ability while anestehtized, preop pain up to 8/10 post op pain 0/10. cc:: CC: Anastasiya Thomas NP Review of Systems ROS Status of ROS 10 or more systems reviewed and unremark able except as noted in h istory and below Musculoskeletal Reports: back pain and joint pain PFSH PFSH Medical History Simple cyst of breast ?N60.09 - Solitary cyst of unspecified breast (ICD-10) Sebaceous cyst ?L72.3 - Sebaceous cyst (ICD-10) Low back pain ?M54.50 - Low back pain, unspecified (ICD-10) Hypothyroid ?E03.9 - Hypothyroidism, unspecified (ICD-10) Asthma ?J45.909 - Unspecified asthma, uncomplicated (ICD-10) Surgical History S/P hernia repair ?Z98.890 - Other specified postprocedural states (ICD-10) ?Z87.19 - Personal history of other diseases of the digestive system (ICD-10) History of mandibular surgery ?Z98.890 - Other specified postprocedural states (ICD-10) Meds Home Medications and Allergies Home Medications ?Medication ?Instructions ?Recorded ?Confirmed ?Type esomeprazole magnesium 40 mg 40 mg PO DAILY 06/23/24 0 01/26/25 History capsule,delayed release glow gummies 06/23/24 History Held on 01/26/25. Instructions: not taking esteban control 06/23/24 History multivitamin-ferrous 1 tab PO DAILY 06/23/24/02/13 History fumarate-folic acid 18 mg-400 mcg tablet (Centrum Women) be-pb-bfaxyv 68 mcg DFE-caff 95 ea PO 06/23/24 Histor y dq-hsfp-piagt-tea oral effer pwdr pack (ATP Ignite) albuterol sulfate 90 mcg/actuation 2 puff inhalation P RN shortness of 09/01/24 History aerosol inhaler breath or wheezing baclofen 10 mg tablet 10 mg PO BID PRN muscle spas m #60 09/11/24 01/26/25 Rx tabs meloxicam 7.5 mg tablet 7.5 mg PO BID PRN pain #60 t abs 09/11/24 01/26/25 Rx diazepam 10 mg tablet (Valium) 10 mg PO Q8H PRN sedati on 12/08/24 01/26/25 H istory hydrocodone 5 mg-acetaminophen 325 1 tab PO QID PRN pa in #28 tabs 12/17/24 01/26/25 Rx mg tablet Allergies Allergy/AdvReac Type Severity Reaction Status Date / Time benzonatate AdvReac Mild Diarrhea Verified 01/26/25 06:54 indomethacin AdvReac Mild swelling Verified 01/26/25 06:54 Exam Constitutional Documenting provider has reviewed patient's vital signs: yes Common normals: no apparent distress, oriented x3, healthy appearing, alert and well nourished General appearance: cooperative HENMT Common normals: normocephalic, hearing grossly normal bilaterally and moist oral mucous membranes Head and scalp: normocephalic Eye Common normals: PERRL Pupil: PERRL Neck & C-Spine Common normals: full ROM General: normal visual inspection Chest Common normals: inspection of chest normal Respiratory Common normals: normal respiratory effort, no retractions and no use of accessory muscles Back & Pelvis Lumbar spine/lower back: ROM limited, pain with ROM and lumbar spinal tenderness (bilateral L4-S1 tenderness) Sacroiliac joints: SI joint(s) abnormal Other: left sij mildly positive elle(patricks), gaenslens, thigh thrust, compression test positive facet loading Extremity Other: moderate pain of left GTB with palpation mildly positive internal and external log roll of left hip Neuro Common normals: oriented x3 Sensorium/orientation: alert Psych Common normals: mental status grossly normal, thought process normal, cooperative, affect normal, speech normal and activity/motor behavior normal Speech: normal speech Thought process: normal thought process Results Imaging Lumbar MRI: Attestation: I have reviewed the pertinent imaging results. Radiologist's impression: Multiecho imaging in the axial and sagittal plane was performed without contrast. There is 3 - 4 mm of spondylolisthesis at the lumbosacral junction where there is also degenerative endplate signal change. Alignment is otherwise maintained. There are no acute compression fractures or marrow edema. The conus medullaris is within normal limits for caliber, position and signal intensity. No paraspinal soft tissue abnormalities are identified. At the lumbosacral junction, there is narrowing of the disc space. There is minor annular disc bulging, slightly asymmetric toward the left. There is subtle thecal sac effacement. There is minor inferior foraminal encroachment on the left. At the remaining lumbar levels, no disc bulge or herniation is identified. No central or foraminal stenosis is noted. Additional Findings Additional findings: If on a controlled substance or opioids, I have checked an [place] report on this patient and there are no aberrancies noted in the prescribing history.??If on a controlled substance or opioid a drug screen was completed and reviewed within the last year, and if there has not been a drug screen completed we ordered one today to monitor higher risk, state monitored pain medication use. As part of providing excellent, safe, comprehensive care, the following was completed at our patient's visit: 1. A medication reconciliation and review to ensure accurate knowledge of current/active medications, including asking our patients to inform us about any amej-tqb-[id number] medications or herbal remedies/nutritional supplements/alternative remedies. 2. A review to specifically ensure our patients have had annual screening for screening for depression, screening for tobacco use, and screening for unhealthy alcohol use. For concerning screenings had a discussion with the patient, provided patient education, and recommended follow-up with primary care provider when appropriate. If patient noted with a risk of falling, they received education on strength, gait, and balance training to prevent future risk of falling. Portions of this note may have been carried over from the previous visit and updated as appropriate. Please note this office utilizes paper charting in addition to the electronic medical record. A list of current medications, vitals, and PMH is available there as the clinical staff outside of myself do not have access to [facility] charting during the clinic day operations. As part of providing quality comprehensive care the current medications, vitals, and PMH were reviewed in the paper chart. Assessment and Plan Assessment and Plan (1) Lumbar spondylosis: Assessment and Plan: The patient has had over 3 months of moderate to severe low back pain with functional impairment and inadequate response to conservative care including NSAIDS (unless there are contraindication such as concurrent blood thinners), multiple oral or topical pain medications, and home exercise program/physical therapy.? Patient has completed >6 weeks of guided home exercise program and/or formal physical therapy program without relief of their symptoms.?? The Oswestry Disability Index was completed, and the patient scored a 12%.? ?The procedure will be completed with fluoroscopic guidance.? (2) Sacroiliitis: (3) Greater trochanteric bursitis of left hip: (4) Chronic left hip pain: (5) Lumbar radiculopathy: (6) Myalgia, other site: Plan bilateral L4-5 L5-S1 mbb x2 in consideration of RFA for axial facet mediated low back pain, with 10mg po valium 30-60mins prior to procedure per pt request due to significant anxiety and difficulty tolerating procedures f/u after each MBB
== END 2025-01-29 13:16 | disposition home or self-care (01) ==
LOC: PM 13:15
PROVIDERS: PCP Family Medicine; Visit Provider Nurse Practitioner
DX: M47.816 Spondylosis without myelopathy or radiculopathy, lumbar region (principal); M46.1 Sacroiliitis, not elsewhere classified; M70.62 Trochanteric bursitis, left hip; M25.552 Pain in left hip; M54.16 Radiculopathy, lumbar region; M79.18 Myalgia, other site
CPT/HCPCS: G0463

== ENCOUNTER 2025-03-02 07:27 | Day surgery (SDC) | payer OTHER, SELFPAY ==
--- OUTSIDE RECORDS SUMMARY | 2025-03-02 07:29 | XMS_ITS | CCD ---
Author Organization [facility] [place] Care Team Providers Care Court Stenographer Name Role Phone DR PETER AHUMADA Primary Care Unavailable DR CHETAN RUDD Admitting Unavailable DR CHETAN RUDD Consulting Unavailable DR CHETAN RUDD Attending Unavailable Luz Marina Hernandez Consulting Unavailable Peter Ahumada DO Primary Care Provider Peter Ahumada Unavailable Acs, DO Peter Primary Care Provider Acs, DO Peter Attending Provider [phone] Kuns, DO Peter Primary Care Provider Kuns, DO Peter Attending Provider [phone] Kuns, DO Peter Primary Care Provider Kuns, DO Peter Attending Provider [phone] Rolando, [facility] [place] Emergency Provider Severo ([facility]), [place] DELIA Orellana Attending Provider Acs, DO Peter Primary Care Provider Kuns, DO Peter Attending Provider Kuns, DO Peter Primary Care Provider [phone] Kuns, DO Peter Attending Provider Kuns, DO Peter Primary Care Provider [phone] Kuns, DO Peter Attending Provider [phone] Kuns, DO Peter Primary Care Provider [phone] Acs, DO Peter Referring Provider Self, Referral Attending Provider Unavailable MD Igor Rudd Emergency Provider Kuns, DO Peter Attending Provider [phone] Itzkowitz, DO Alber Attending Provider DO Chas Meza Attending Provider Kuns, DO Peter Primary Care Provider Kuns DO, Peter P Primary Care Provider Kuns, DO Peter Primary Care Provider Kuns, DO Peter Attending Provider JEAN CARLOS Martinez Attending Provider [phone] Peter Ahumada MD Primary Care Provider Blake HOOVER, Peter Primary Care Provider Peter Ahumada DO Attending Provider Yoli DPRobert Ascencio Attending Provider Kunshira HOOVER, Peter Primary Care Provider Yoli DPRobert Ascencio Attending Provider [phone] Blake DO, Peter Primary Care Provider [phone] Robert Martinez DPM Attending Provider Itzkoyahirtz DO, Alber Attending Provider ITZKOWITZ, ALBER H Attending Unavailable ITZKOYAHIRTZ, ALBER H Attending Unavailable ITZKOYAHIRTZ, ALBER H Attending Unavailable ITZKOWITZ, ALBER H Attending Unavailable ITZKOWITZ, ALBER H Attending Unavailable ITZKOWITZ, ALBER H Attending Unavailable RAHUL CASTILLO Attending Unavailable ROBERT MARTINEZ Referring Unavailable Peter Ahumada DO Primary Care Provider [phone] Peter Ahumada DO Attending Provider Peter Ahumada Attending Unavailable Peter Ahumada Admitting Unavailable Peter Ahumada Primary Care Unavailable Itzkowitz, Alber Admitting Unavailable Yancy, Alber Attending Unavailable Robert Martinez Attending Unavailable Peter Ahumada Primary Care Unavailable Robert Martinez Admitting Unavailable Robert Martinez Attending Unavailable Peter Ahumada Primary Care Unavailable Robert Martinez Admitting Unavailable Robert Martinez Attending Unavailable Peter Ahumada Primary Care Unavailable Robert Martinez Admitting Unavailable Kuns, Peter Primary Care Unavailable Kuns, Peter Attending Unavailable Kuns, Peter Admitting Unavailable Kuns, Peter Primary Care Unavailable Kuns, Peter Attending Unavailable Kuns, Peter Admitting Unavailable Elbert Mezain A Admitting Unavailable Susana Chas A Attending Unavailable Kuns, Peter Primary Care Unavailable Kuns, Peter Attending Unavailable Kuns, Peter Admitting Unavailable Kuns, Peter Primary Care Unavailable Giedraitis MD, Andrius Vytautas Attending Unavailable Giedraitis MD, Andrius Vytautas Attending Unavailable Giedraitis MD, Andrius Vytautas Attending Unavailable Giedraitis MD, Andrius Vytautas Attending Unavailable Giedraitis MD, Andrius Vytautas Attending Unavailable Allergies Allergy Classification Reported Allergen(s) Allergy Type Date of Onset Reaction(s) Facility (13 sources) Indomethacin Drug Allergy 8 [facility] (14 sources) benzonatate Drug Allergy 4 diarrhea [facility] (6 sources) benzonatate Drug Allergy 3 GI intolerance [facility] Work Phone: (1 source) benzonatate Drug Allergy [address] [place] [address] Repository (1 source) Indomethacin Drug Allergy [address] [place] [address] Repository Medications Current Medications Medication Drug Class(es) Dates Sig (Normalized) Sig (Original) [id number] 200 actuat albuterol 0.09 mg/actuat metered dose inhaler (20 sources) beta2-Adrenergic Agonist Start: 12-19-2023 take 2 puff(s) by inhalation every four hours as needed Start: 04-24-2017 End: 12-19-2023 take 1 puff(s) by inhalation every four to six hours as needed for wheezing Albuterol Sulfate (Proventil Hfa) 90 mcg/actuation Hfa Aerosol Inhaler Discontinued 1 PUFF INHALATION EVERY 4-6 HOURS as needed for Shortness Of Breath Or Wheezing April 24, 2017 12:00am December 19, 2023 2:03pm Start: 03-23-2017 take 2 puff(s) by in halation every four hours as needed ProAir HFA 108 (90 Base) MCG/ACT 2 puffs as needed Inhalation every 4 hrs PRN Mar, Active albuterol HFA (P roventil HFA) 90 mcg/act inhaler every 4 (four) hours. Active baclofen 10 mg oral tablet (1 source) gamma-Aminobutyric Acid-ergic Agonist Start: 12-08-2024 take 1 tablet by mouth twice daily as needed esomeprazole 40 mg delayed release oral capsule (10 sources) Proton Pump Inhibitor Start: 06-10-2024 take 1 capsule by mouth once daily Start: 03-14-2024 End: 06-10-2024 take 1 capsule by mouth twice daily Esomeprazole Magnesium (Nexium) 40 mg capsule,delayed release(DR/EC) Discontinued 40 MG PO Twice daily 180 March 14, 2024 12:00am June 10, 2024 4:43pm Norgestimate-Ethinyl Estradi ol (20 sources) Progestin, Estrogen Start: 12-19-2023 take 1 tablet by mouth once daily at bedtime Start: 12-19-2023 take 1 tablet by yoana [...] 1 tablet by yoana th once daily. meclizine hydrochloride 25 mg oral tablet (1 source) Antiemetic Start: 5 take 1 tablet by mouth every six hours as needed meloxicam 7.5 mg oral tablet (1 source) Nonsteroidal Anti-inflammatory Drug Start: 5 take 1 tablet by mouth twice daily as needed Multiple Vitamin (multivitamin) tablet (6 sources) take 1 tablet by mouth in the morning Multiple Vitamin (multivitamin) tablet Take 1 tablet by mouth in the morning. Active Multivitamin (Daily Multi-Vitamin) tablet (20 sources) Start: 4 take 1 tablet by mouth once daily in the morning Start: 12-19-2023 take 1 tablet by yoana [...] Multivitamin With Minerals (Hair,Skin And Nails) tablet (20 sources) Start: 03-06-2024 take 1 tablet by mouth once daily in the morning Start: 03-06-2024 take 1 tablet by yoana [...] (17 sources) take 1 capsule by mo uth once daily Vitamin D (Cholecalciferol) 1000 UNIT [...] Q6H as needed for pain 30 March 26, 2018 12:00am March 30, 2018 12:00am March 31, 2018 12:02am acetaminophen 325 mg / HYDROcodone bitartrate 5 mg oral tablet (20 sources) Opioid Agonist Start: 12-31-2023 End: 02-13-2024 take 1 tablet by mouth every four to six hours as needed for pain Hydrocodone-Acetaminophen 5-325 mg tablet Discontinued 1 TAB PO EVERY 4-6 HOURS as needed for Pain 16 02December 31, 2023 February 13, 2024 3:12pm Start: 12-19-2023 End: 12-19-2023 take 1 tablet [...] six hours as needed for pain Hydrocodone-Acetaminophen ([place]) 5-325 mg tablet Discontinued 2 TAB PO EVERY 4-6 HOURS as needed for pain April 24, 2017 12:00am March 26, 2018 9:04am acetaminophen 325 mg / oxyCODONE hydrochloride 5 mg oral tablet (20 sources) Opioid Agonist Start: 11-01-2022 End: 12-17-2023 take 1 tablet by mouth every six hours as needed for pain Oxycodone-Acetaminophen 5-325 mg tablet Discontinued 1 TAB PO Q6H as needed for pain 06 24November 01, 2022 December 17, 2023 7:36am Albuterol [...] 2022 10:30am cholecalciferol 0.025 mg oral capsule (20 sources) Vitamin D Start: 12-19-2023 End: 12-27-2023 [...] PO Three times daily December 19, 2023 12:00am December 27, 2023 2:17pm Start: 03-12-2020 End: 12-17-2023 take 1 tablet [...] 26, 2018 12:00am March 12, 2020 8:22pm Lactobacillus Combination No.4 (Probiotic) 3 billion cell [...] 50 Plus Probiotic) 4 billion cell capsule (20 sources) Start: 12-19-2023 End: 12-27-2023 Lactobacillus Combination [...] mcg tablet Discontinued 88 MCG PO Daily 90 December 19, 2023 2:08pm January 15, 2024 2:28pm Start: 03-21-2023 take 1 tablet by yoana [...] Discontinued 1 CAP PO Every morning December 19, 2023 12:00am March 14, 2024 12:43pm FreeTextSi capsule 30 minutes before morning meal Orally Once a day; Note: Source Status: Taking; Refills: 3; Provider: Blake Liz Comment on above: TAKE 1 CAPSULE BY [place] [facility] EVERY DAY 30 MINUTES BEFORE [...] 2:18pm Start: 11-05-2020 [facility] as needed K-Dur 10 meq 1 tablet orally daily prn Oct, Active predniSONE 20 mg oral tablet (20 sources) Start: 11-30-2023 End: 12-17-2023 Prednisone 20 mg tablet Discontinued 20 MG PO .COMPLEX November 30, 2023 12:00am December 17, 2023 [...] mg tablet Discontinued 50 MG PO December 19, 2023 12:00am January 15, 2024 2:27pm Start: 02-15-2021 take 1 tablet by yoana [...] [Fall on same level, unspecified, initial encounter] 12-27-2023 Episodic E Codes: Natural/environment (1 source) [...] Episodic Other aftercare (1 source) 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; Translations: [OTH [facility] CURRENT DRUG THERAPY] Onset: 1 Episodic Other [...] connective tissue disease (1 source) Pain in both feet; Translations: [Pain in right foot] 06-10-2024 Episodic [...] left hip Episodic Other non-traumatic joint disorders (20 sources) Pain in elbow; Translations: [Pain in right elbow] 12-27-2023 Episodic Other non-traumatic joint disorders (14 sources) Pain in right elbow; Translations: [Pain in joint, upper arm] 12-27-2023 Episodic Other nutritional; endocrine; and metabolic [...] Episodic Other nutritional; endocrine; and metabolic disorders (3 sources) Overweight in adulthood with body mass index of 25 or more but less than 30; Translations: [Body mass index (BMI) 27.0-27.9, adult] 09-09-2024 Episodic Other nutritional; endocrine; and metabolic disorders (2 sources) Body mass index (BMI) 27.0-27.9, adult; Translations: [Body Mass Index 27.0-27.9, adult] 09-09-2024 Episodic Other screening for suspected conditions (not mental disorders or infectious disease) (16 sources) Mammography abnormal; Translations: [Other abnormal and inconclusive findings on diagnostic imaging of breast] Onset: 3 Episodic Other skin disorders (5 sources) Mass [...] Other seborrheic keratosis Episodic Other skin disorders (5 sources) Mass of body structure 09-09-2024 Episodic [...] Classification Problem Date Documented Da te Episodic/Chronic Fracture of upper limb (20 sources) Elbow fracture; Translations: [Unspecified fracture of lower end of right humerus, initial encounter for closed fracture] Onset: 02-13-2024 12-31-2023 Episodic Other connective tissue disease (9 sources) Pain in right foot; Translations: [Pain in right foot] Onset: 11-26-2017 11-26-2017 Episodic Other connective tissue disease (1 source) Pain in left arm; Translations: [Arm pain, left M79.602] Onset: 04-20-2021 Resolved: 04-20-2021 Episodic Other connective tissue disease (6 sources) Peroneal tendinitis; Translations: [Peroneal tendinitis, unspecified leg] Onset: 01-25-2023 3 Episodic Other connective tissue disease (2 sources) Pain in right foot; Translations: [Pain in limb] Onset: 05-19-2024 06-10-2024 Episodic Other connective tissue disease (1 source) Plantar fascial fibromatosis; Translations: [Plantar fascial fibromatosis] Onset: 07-17-2024 Episodic Other gastrointestinal disorders (4 sources) Diarrhea, unspecified; Translations: [Diarrhea] Onset: 03-12-2024 03-06-2024 Episodic Other skin disorders (1 source) Other hypertrophic disorders of the skin Onset: 10-17-2021 Resolved: 10-17-2021 Episodic Other skin disorders (1 source) Sebaceous cyst; Translations: [Sebaceous cyst] Onset: 09-29-2024 Episodic Results Test Name Value Interpretation Reference Range Facility MM screening mammo BI w/CADo n 01-27-2025 MM screening mammo BI w/CAD [facility] [address] [place] [address] Mammography Report Signed Patient: Darling Khanna MR#: [id number] : 1980 Acct:[id number] Age/Sex: 44 / F Adm Date: 01/27/25 Loc: [place] Room: Type: [facility] Attending Dr: Peter Ahumada DO Ordering Provider: Peter Ahumada DO Date of Service: 01/27/25 Procedure(s): MM screening mammo BI w/CAD Accession Number(s): ([id number]) MM/MM screening mammo BI w/CAD: Z12.39 - Encounter for other screening for malignant neop... Copies to: Peter Ahumada DO BILATERAL Screening Full Field digital mammogram with [...] 3 (approximately 51-75% glandular) The breasts are heterogeneously dense, which may obscure small masses. FOLLOW UP: 1YR THE FALSE-NEGATIVE RATE OF MAMMOGRAPHY IS APPROXIMATELY 10%. IMAGING OF A PALPABLE ABNORMALITY MUST BE BASED ON CLINICAL GROUNDS. PATIENT WAS ENTERED INTO A REMINDER SYSTEM WITH A TARGET DUE DATE FOR THE NEXT MAMMOGRAM. Impression dictated by: Osmani Stovall M.D. 01/27/2025 9:02 AM Dictation Location: [facility] Dictated By: Osmani Stovall DO 01/27/25 0859 Signed By: 01/27/25 0902 Normal [facility] Mammography reportOrdered By : Osmani Stovall on 01-27-2025 Diagnostic imaging study [facility] [address] [place] [address] Mammography Report Signed Patient: Darling Khanna MR#: [id number] : 1980 Acct:[id number] Age/Sex: 44 / F Adm Date: 5 Loc: [place] Room: Type: [facility] Attending Dr: Peter Ahumada DO Ordering Provider: Peter Ahumada DO Date of Service: 01/27/25 Procedure(s): MM screening mammo BI w/CAD Accession Number(s): ([id number]) MM/MM screening mammo BI w/CAD: Z12.39 - Encounter for other screening for malignant neop... Copies to: Peter Ahumada DO~ BILATERAL Screening Full Field digital mammogram [...] Stovall M.D. 01/27/2025 9:02 AM Dictation Location: [facility] Dictated By: Osmani Stovall DO 01/27/25 0859 Signed By: 01/27/25 0902 [facility] A1C with Estimated Average G luon 12-05-2024 Glucose [Mass/Vol] 117 mg/dL Normal [facility] Comment on above: Result Comment: PERF ORMED BY: [place] [address] PATHOLOGIST WIRE TECHNICIAN PADILLA LYMAN M.D. Performed By: #### A 1C WTH eA, LIPID, CMP, T4F, TSH3, CBC #### [place] [address] [place] Alanine aminotransferase [En zymatic activity/volume] in Serum or PlasmaOrdered By: Peter Ahumada on 12-05-2024 ALT [Catalytic activity/Vol] 6 U/L Low 7-52 [facility] Comment on above: Performed By: #### A 1C WTH eA, LIPID, CMP, T4F, TSH3, CBC #### [place] [address] [place] Albumin [Mass/volume] in Ser um or Plasma by Bromocresol green (BCG) dye binding methoOrdered By: Peter Ahumada on 12-05-2024 Albumin BCG dye [Mass/Vol] 3.7 g/dL 3.5-5.7 [facility] Alkaline phosphatase [Enzyma tic activity/volume] in Serum or PlasmaOrdered By: Peter Ahumada on 12-05-2024 ALP [Catalytic activity/Vol] 42 U/L Normal 34-104 [facility] Comment on above: Performed By: #### A 1C WTH eA, LIPID, CMP, T4F, TSH3, CBC #### [place] [id number] [place] Aspartate aminotransferase [ Enzymatic activity/volume] in Serum or PlasmaOrdered By: Peter Ahumada on 12-05-2024 AST [Catalytic activity/Vol] 12 U/L Low 13-39 [facility] Comment on above: Performed By: #### A 1C WT eA, LIPID, CMP, T4F, TSH3, CBC #### [facility] [address] Basophils [#/volume] in Bloo d by Automated countOrdered By: Peter Ahumada on 12-05-2024 Basophils (Bld) [#/Vol] 0.1 10*3/uL Normal 0.0-0.2 [facility] Comment on above: Result Comment: PERF ORMED BY: [place] [address] PATHOLOGIST WIRE TECHNICIAN PADILLA LYMAN M.D. Performed By: #### A 1C WT eA, LIPID, CMP, T4F, TSH3, CBC #### [facility] [address] Basophils/100 leukocytes in Blood by Automated countOrdered By: Peter Ahumada on 12-05-2024 Basophils/100 WBC (Bld) 0.8 % Normal . [facility] Comment on above: Performed By: #### A 1C WT eA, LIPID, CMP, T4F, TSH3, CBC #### [facility] [address] Bilirubin.total [Mass/volume ] in Serum or PlasmaOrdered By: Peter Ahumada on 12-05-2024 Bilirubin [Mass/Vol] 0.3 mg/dL Normal 0.3-1.0 [facility] Comment on above: Performed By: #### A 1C WT eA, LIPID, CMP, T4F, TSH3, CBC #### [facility] [address] Blood estimated average gluc ose determination by estimation from glycated hemoglobinOrdered By: Peter Ahumada on 12-05-2024 Average glucose Estimated from glycated hemoglobin (Bld) [Mass/Vol] 117 mg/dL [facility] Calcium [Mass/volume] in Ser um or PlasmaOrdered By: Peter Ahumada on 12-05-2024 Calcium [Mass/Vol] 8.5 mg/dL Low 8.6-10.3 [facility] Comment on above: Performed By: #### A 1C WT eA, LIPID, CMP, T4F, TSH3, CBC #### [facility] [address] [place] [address] [place] Carbon dioxide, total [Moles /volume] in Serum or PlasmaOrdered By: Peter Ahumada on 12-05-2024 CO2 [Moles/Vol] 29.8 mmol/L Normal 21.0-31.0 [facility] Comment on above: Performed By: #### A 1C WT eA, LIPID, CMP, T4F, TSH3, CBC #### [facility] [address] [place] [address] [place] Chloride [Moles/volume] in S renetta or PlasmaOrdered By: Peter Ahumada on 12-05-2024 Chloride [Moles/Vol] 105 mmol/L Normal 98-107 [facility] Comment on above: Performed By: #### A 1C WT eA, LIPID, CMP, T4F, TSH3, CBC #### [facility] [address] [place] [address] [place] Cholesterol [Mass/volume] in Serum or PlasmaOrdered By: Peter Ahumada on 12-05-2024 Cholesterol [Mass/Vol] 151 mg/dL Normal 140-200 [facility] Comment on above: Chol less than 200 m g/dl low riskChol 201-239 mg/dl borderline riskChol 240 mg/dl and greater high risk Result Comment: Chol less than 200 mg/dl low risk Chol 201-239 mg/dl borderline risk Chol 240 mg/dl and greater high risk Performed By: #### A 1C WT eA, LIPID, CMP, T4F, TSH3, CBC #### [facility] [address] [place] [address] [place] Cholesterol in HDL [Mass/vol ume] in Serum or PlasmaOrdered By: Peter Ahumada on 12-05-2024 Cholesterol in HDL [Mass/Vol] 50 mg/dL Normal 23-92 [facility] Comment on above: HDL CHOL ATP-III CLA SSIFICATION Cardiovascular RiskHDL > or equal to 60 mg/dL LOWHDL < 40 mg/dL HIGH Result Comment: HDL CHOL ATP-III CLASSIFICATION Cardiovascular Risk HDL > or equal to 60 mg/dL LOW HDL < 40 mg/dL HIGH Performed By: #### A 1C WTH eA, LIPID, CMP, T4F, TSH3, CBC #### [facility] [address] Cholesterol in LDL Calc [Mas s/Vol]Ordered By: Peter Ahumada on 12-05-2024 Cholesterol in LDL [Mass/Vol] 84 mg/dL 0-100 [facility] Comment on above: LDL ATP III CLASSIFI CATIONLDL less than 100 mg/dL OptimalLDL 100-129 mg/dL Near or above optimalLDL 130-159 mg/dL Borderline highLDL 160-189 mg/dL HighLDL greater than 189 mg/dL Very high Cholesterol in VLDL Calc [Ma ss/Vol]Ordered By: Peter Ahumada on 12-05-2024 Cholesterol in VLDL [Mass/Vol] 16 mg/dL [facility] Complete Blood Count Auto Di ffon 12-05-2024 Mean Corpuscular HGB Conc 33.5 g/dL Normal 32.0-35.0 [facility] Comment on above: Performed By: #### A 1C WT eA, LIPID, CMP, T4F, TSH3, CBC #### [facility] [address] NRBC% 0.0 /100{WBC} Normal 0-0.5 [facility] Comment on above: Performed By: #### A 1C WTH eA, LIPID, CMP, T4F, TSH3, CBC #### [facility] [address] Comprehensive Metabolic Pane prasanth 12-05-2024 Albumin [Mass/Vol] 3.7 g/dL Normal 3.5-5.7 [facility] Comment on above: Performed By: #### A 1C WTH eA, LIPID, CMP, T4F, TSH3, CBC #### [facility] [address] [place] [address] [place] GFR/1.73 sq M.predicted MDRD (S/P/Bld) [Vol rate/Area] mL/min/{1.73_m2} Normal [facility] Comment on above: Performed By: #### A 1C WT eA, LIPID, CMP, T4F, TSH3, CBC #### [facility] [address] Creatinine [Mass/volume] in Serum or PlasmaOrdered By: Peter Ahumada on 12-05-2024 Creatinine [Mass/Vol] 0.50 mg/dL Low 0.60-1.20 [facility] Comment on above: Performed By: #### A 1C WT eA, LIPID, CMP, T4F, TSH3, CBC #### [facility] [address] [place] [address] [place] Eosinophils [#/volume] in Bl ood by Automated countOrdered By: Peter Ahumada on 12-05-2024 Eosinophils (Bld) [#/Vol] 0.1 10*3/uL Normal 0.0-0.45 [facility] Comment on above: Performed By: #### A 1C WT eA, LIPID, CMP, T4F, TSH3, CBC #### [facility] [address] [place] [address] [place] Eosinophils/100 leukocytes i n Blood by Automated countOrdered By: Peter Ahumada on 12-05-2024 Eosinophils/100 WBC (Bld) 1.7 % Normal . [facility] Comment on above: Performed By: #### A 1C WTH eA, LIPID, CMP, T4F, TSH3, CBC #### [facility] [address] [place] [address] [place] Erythrocyte distribution wid th [Ratio] by Automated countOrdered By: Peter Ahumada on 12-05-2024 Erythrocyte distribution width (RBC) [Ratio] 12.7 % Normal 11.9-15.3 [facility] Comment on above: Performed By: #### A 1C WTH eA, LIPID, CMP, T4F, TSH3, CBC #### [facility] [address] [place] [address] [place] Erythrocytes [#/volume] in B lood by Automated countOrdered By: Peter Ahumada on 12-05-2024 RBC (Bld) [#/Vol] 4.14 10*6/uL Normal 3.60-5.00 [facility] Comment on above: Performed By: #### A 1C WTH eA, LIPID, CMP, T4F, TSH3, CBC #### [facility] [address] [place] [id number] [place] Glucose [Mass/volume] in Ser um or PlasmaOrdered By: Peter Ahumada on 12-05-2024 Glucose [Mass/Vol] 98 mg/dL Normal 70-100 [facility] Comment on above: ADA recommended refe rence rangeRandom Glucose Reference Range is dependent on time and content of last meal. Glucose of more than 200 mg/dL in a nonstressed, ambulatory subject supports the diagnosis of Diabetes Mellitus. Result Comment: [place] om Glucose Reference Range is dependent on time and content of last meal. Glucose of more than 200 mg/dL in a nonstressed, ambulatory subject supports the diagnosis of Diabetes Mellitus. ADA recommended reference range Performed By: #### A 1C WTH eA, LIPID, CMP, T4F, TSH3, CBC #### [facility] [address] [place] [id number] [place] Hematocrit [Volume Fraction] of Blood by Automated countOrdered By: Peter Ahumada on 12-05-2024 Hematocrit (Bld) [Volume fraction] 36.1 % Normal 34.0-46.4 [facility] Comment on above: Performed By: #### A 1C WTH eA, LIPID, CMP, T4F, TSH3, CBC #### [facility] [address] [place] [id number] [facility] Hemoglobin A1c/Hemoglobin.to vince in BloodOrdered By: Peter Ahumada on 12-05-2024 HbA1c (Bld) [Mass fraction] 5.7 % High 4.3-5.6 [facility] Comment on above: Increased risk for d iabetes: 5.7 - 6.4diabetes: >6.4glycemic control for adults with diabetes: <7.0 Result Comment: Incr eased risk for diabetes: 5.7 - 6.4 diabetes: >6.4 glycemic control for adults with diabetes: <7.0 Performed By: #### A 1C [facility] eA, LIPID, CMP, T4F, TSH3, CBC #### [facility] [address] Hemoglobin [Mass/volume] in BloodOrdered By: Peter Ahumada on 12-05-2024 Hemoglobin (Bld) [Mass/Vol] 12.1 g/dL Normal 11.8-15.4 [facility] Comment on above: Performed By: #### A 1C WT eA, LIPID, CMP, T4F, TSH3, CBC #### [facility] [address] Leukocytes [#/volume] correc bryan for nucleated erythrocytes in Blood by Automated counOrdered By: Peter Ahumada on 12-05-2024 WBC corrected for nucl RBC Auto (Bld) [#/Vol] 7.1 10*3/uL 3.8-11.6 [facility] Leukocytes [#/volume] in Blo od by Automated countOrdered By: Peter Ahumada on 12-05-2024 WBC (Bld) [#/Vol] 7.1 10*3/uL Normal 3.8-11.6 [facility] Comment on above: Performed By: #### A 1C [facility] eA, LIPID, CMP, T4F, TSH3, CBC #### [facility] [address] Lipid Panelon 12-05-2024 LDL Cholesterol,Calculated 84 mg/dL Normal 0-100 [facility] Comment on above: Result Comment: LDL ATP III CLASSIFICATION LDL less than 100 mg/dL Optimal LDL 100-129 mg/dL Near or above optimal LDL 130-159 mg/dL Borderline high LDL 160-189 mg/dL High LDL greater than 189 mg/dL Very high Performed By: #### A 1C WT eA, LIPID, CMP, T4F, TSH3, CBC #### [facility] [address] Triglyceride w/Reflex 83 mg/dL Normal 0-149 [facility] [...] eA, LIPID, CMP, T4F, TSH3, CBC #### [address] VLDL CHOLESTEROL 16 mg/dL Normal [facility] Comment on above: Performed By: #### A 1C WT eA, LIPID, CMP, T4F, TSH3, CBC #### [address] Lymphocytes [#/volume] in Bl ood by Automated countOrdered By: Peter Ahumada on 12-05-2024 Lymphocytes (Bld) [#/Vol] 1.7 10*3/uL Normal 1.00-4.8 [facility] Comment on above: Performed By: #### A 1C WT eA, LIPID, CMP, T4F, TSH3, CBC #### [address] Lymphocytes/100 leukocytes i n Blood by Automated countOrdered By: Peter Ahumada on 12-05-2024 Lymphocytes/100 WBC (Bld) 23.9 % Normal . [facility] Comment on above: Performed By: #### A 1C WT eA, LIPID, CMP, T4F, TSH3, CBC #### [address] MCH [Entitic mass] by Automa bryan countOrdered By: Peter Ahumada on 12-05-2024 MCH (RBC) [Entitic mass] 29.1 pg Normal 24.7-34.3 [facility] Comment on above: Performed By: #### A 1C WT eA, LIPID, CMP, T4F, TSH3, CBC #### [address] MCHC Auto (RBC) [Mass/Vol]Or dered By: Peter Ahumada on 12-05-2024 MCHC (RBC) [Mass/Vol] 33.5 g/dL 32.0-35.0 [facility] MCV [Entitic volume] by Auto mated countOrdered By: Peter Ahumada on 12-05-2024 MCV (RBC) [Entitic vol] 87.0 fL Normal 80-100 [facility] Comment on above: Performed By: #### A 1C WTH eA, LIPID, CMP, T4F, TSH3, CBC #### [facility] [address] [place] [address] [place] Monocytes [#/volume] in Bloo d by Automated countOrdered By: Peter Ahumada on 12-05-2024 Monocytes (Bld) [#/Vol] 0.5 10*3/uL Normal 0.0-0.8 [facility] Comment on above: Performed By: #### A 1C WTH eA, LIPID, CMP, T4F, TSH3, CBC #### [facility] [address] [place] [address] [place] Monocytes/100 leukocytes in Blood by Automated countOrdered By: Peter Ahumada on 12-05-2024 Monocytes/100 WBC (Bld) 7.2 % Normal . [facility] Comment on above: Performed By: #### A 1C WT eA, LIPID, CMP, T4F, TSH3, CBC #### [place] [address] [place] Neutrophils [#/volume] in Bl ood by Automated countOrdered By: Peter Ahumada on 12-05-2024 Neutrophils (Bld) [#/Vol] 4.7 10*3/uL Normal 1.8-7.7 [facility] Comment on above: Performed By: #### A 1C WTH eA, LIPID, CMP, T4F, TSH3, CBC #### [facility] [address] [place] [address] [place] Neutrophils/100 leukocytes i n Blood by Automated countOrdered By: Peter Ahumada on 12-05-2024 Neutrophils/100 WBC (Bld) 66.4 % Normal . [facility] Comment on above: Performed By: #### A 1C WTH eA, LIPID, CMP, T4F, TSH3, CBC #### [address] No Panel InformationOrdered By: Peter Ahumada on 12-05-2024 Estimated GFR (CKD-EPI) > 60.0 mL/Min [facility] Creatinine Clearance (Chem N/A [facility] Nucleated erythrocytes [Pres ence] in Blood by Automated countOrdered By: Peter Ahumada on 12-05-2024 Nucleated RBC Auto Ql (Bld) 0.0 /100{WBC} 0-0.5 [facility] Platelet mean volume [Entiti c volume] in Blood by Automated countOrdered By: Peter Ahumada on 12-05-2024 Platelet mean volume (Bld) [Entitic vol] 7.7 fL Normal 6.3-10.7 [facility] Comment on above: Performed By: #### A 1C WT eA, LIPID, CMP, T4F, TSH3, CBC #### [facility] [address] [place] [address] [place] Platelets [#/volume] in Bloo d by Automated countOrdered By: Peter Ahumada on 12-05-2024 Platelets (Bld) [#/Vol] 296 10*3/uL Normal 150-450 [facility] Comment on above: Performed By: #### A 1C WT eA, LIPID, CMP, T4F, TSH3, CBC #### [facility] [address] [place] [address] [place] Potassium [Moles/volume] in Serum or PlasmaOrdered By: Peter Ahumada on 12-05-2024 Potassium [Moles/Vol] 4.4 mmol/L Normal 3.5-5.1 [facility] Comment on above: Performed By: #### A 1C WT eA, LIPID, CMP, T4F, TSH3, CBC #### [facility] [address] [place] [address] [place] Protein [Mass/volume] in Ser um or PlasmaOrdered By: Peter Ahumada on 12-05-2024 Protein [Mass/Vol] 6.0 g/dL Low 6.4-8.9 [facility] Comment on above: Performed By: #### A 1C WT eA, LIPID, CMP, T4F, TSH3, CBC #### [facility] [address] Serum globulin measurement b y calculation (mass/volume)Ordered By: Peter Ahumada on 12-05-2024 Globulin (S) [Mass/Vol] 2.3 g/dL Normal [facility] Comment on above: Performed By: #### A 1C WT eA, LIPID, CMP, T4F, TSH3, CBC #### [facility] [address] Serum or plasma albumin/glob ulin mass ratioOrdered By: Peter Ahumada on 12-05-2024 Albumin/Globulin [Mass ratio] 1.6 {ratio} Normal [facility] Comment on above: Performed By: #### A 1C WT eA, LIPID, CMP, T4F, TSH3, CBC #### [address] Serum or plasma anion gap de terminationOrdered By: Peter Ahumada on 12-05-2024 Anion gap [Moles/Vol] 8.6 mmol/L Normal 6.0-15.0 [facility] Comment on above: Performed By: #### A 1C WT eA, LIPID, CMP, T4F, TSH3, CBC #### [facility] [address] [place] [address] Serum or plasma total choles terol/high density lipoprotein (HDL) cholesterol mass ratOrdered By: Peter Ahumada on 12-05-2024 Cholesterol.total/Chol esterol in HDL [Mass ratio] 3.0 {ratio} Normal <5.0 [facility] Comment on above: Performed By: #### A 1C WT eA, LIPID, CMP, T4F, TSH3, CBC #### [facility] [address] Sodium [Moles/volume] in Ser um or PlasmaOrdered By: Peter Ahumada on 12-05-2024 Sodium [Moles/Vol] 139 mmol/L Normal 136-145 [facility] Comment on above: Performed By: #### A 1C WTH eA, LIPID, CMP, T4F, TSH3, CBC #### [facility] [address] [place] [address] Thyrotropin [Units/volume] i n Serum or PlasmaOrdered By: Peter Ahumada on 12-05-2024 TSH Qn 0.30 m[IU]/L Low 0.45-5.33 [facility] Comment on above: Result Comment: PERF ORMED BY: [place] [address] PATHOLOGIST WIRE TECHNICIAN PADILLA LYMAN M.D. Performed By: #### A 1C WTH eA, LIPID, CMP, T4F, TSH3, CBC #### [facility] [address] Thyroxine (T4) free [Mass/vo lume] in Serum or PlasmaOrdered By: Peter Ahumada on 12-05-2024 Free T4 [Mass/Vol] 1.01 ng/dL Normal 0.61-1.12 [facility] Comment on above: Performed By: #### A 1C WTH eA, LIPID, CMP, T4F, TSH3, CBC #### [facility] [address] Triglyceride [Mass/volume] i n Serum or PlasmaOrdered By: Peter Ahumada on 12-05-2024 Triglyceride [Mass/Vol] 83 mg/dL 0-149 [facility] Comment on above: TRIG ATP III CLASSIF ICATIONTRIG less than 150 mg/dL NormalTRIG 150-199 mg/dL Borderline highTRIG 200-500 mg/dL High TRIG greater than 500 mg/dL Very highStandard traceable to the Center for Disease Conrtrol and Prevention (CDC) test method. Urea nitrogen [Mass/volume] in Serum or PlasmaOrdered By: Peter Ahumada on 12-05-2024 Urea nitrogen [Mass/Vol] 16 mg/dL Normal 7-25 [facility] Comment on above: Performed By: #### A 1C WTH eA, LIPID, CMP, T4F, TSH3, CBC #### [facility] [address] Pathology study report docum entOrdered By: Adolfo Madrid on 09-30-2024 Pathology study [facility] Other Phone: Prasanth 09-29-2024 L ---- Specimen: [id number] Received: 09/29/24 Status: JORGE Bergman Num: [id number] Spec Type: Surgical Subm Dr: Albre Haines DO Tissues: A Skin Cyst (RT CHEST CYSTIC WALL) Procedures: Luma RAMIREZ/Fabiana L3 Age/ Patient Sex Location Account Attending Physician Darling Khanna 44/F ELIUD [id number] Alber Haines DO SPEC NUM: [id number] RECD: 09/29/24 STATUS: JORGE BERGMAN NUM: [id number] ALISTAIR: 09/29/24- SUBM DR: Alber Haines DO ENTERED: 09/29/24-1 [facility] DR: Alexis Baeza [facility] SPEC TYPE: Surgical DEPT: S ORDERED: [...] submitted in a single cassette. (1, ns, [id number]) NOEL Specimen: [id number] Received: 09/29/24 Status: JORGE Bergman Num: [id number] Spec Type: Surgical Subm Dr: Alber Haines DO Tissues: A Skin Cyst (RT CHEST CYSTIC WALL) Procedures: ASHLEY, Gross/Micro L3 Patient: MaydaDarling [id number] (Continued) Specimen: [id number] Received: 09/29/24 (Continued) Signed (signature on file) Adolfo Madrid MD 09/30/24 1501 Specimen: [id number] Received: 09/29/24 Status: JORGE Bergman Num: [id number] Spec Type: Surgical Subm Dr: Alber Haines DO Tissues: A Skin Cyst (RT CHEST CYSTIC WALL) Procedures: Luma RAMIREZ/Fabiana L3 Patient: MaudenelsonDarling [id number] (Continued) Specimen: [id number] Received: 09/29/24 (Continued) Microscopic Description Microscopic examinations are performed supporting the above interpretation CPT Codes 81716 Specimen: [id number] Received: 09/29/24 Status: JORGE Bergman Num: [id number] Spec Type: Surgical Subm Dr: Alber Haines DO Tissues: A Skin Cyst (RT CHEST CYSTIC WALL) Procedures: Luma RAMIREZ/Fabiana L3 Patient: Darling Khanna [id number] (Continued) Signed (signature on file) Adolfo Madrid MD 09/30/24 1501 Normal [facility] MR ankle LT wo perry 024 MR ankle LT wo con [facility] [place] [address] MRI Report Signed Patient: Darling Khanna MR#: [id number] 1872 : 1980 Acct:[id number] Age/Sex: 44 / F ADM Date: 06/04/24 Loc: MR Room: Type: [facility] Attending Dr: Robert Martinez DPM, MS [...] Osmani Stovall M.D.06/04/2024 10:29 PM Dictation Location: [place] [address] Transcribed By: [facility] 06/04/242228 Dictated By: Osmani Stovall DO 06/04/242217 Signed By: 06/04/242228 Normal [facility] Magnetic resonance imaging r eportOrdered By: Osmani Stovall on 06-04-2024 Study report [facility] [place] [address] [place] [address] MRI Report Signed Patient: Darling Khanna MR#: [id number] : 1980 Acct:[id number] Age/Sex: 44 / F ADM Date: 4 Loc: MR Room: Type: [facility] Attending Dr: Robert Martinez DPM, MS [...] Osmani Stovall M.D.06/04/2024 10:29 PM Dictation Location: [place] [address] Transcribed By: [facility] 06/04/242228 Dictated By: Osmani Stovall DO 06/04/242217 Signed By: 06/04/242228 [facility] X-ray reportOrdered By: Vikas Stovall on 06-04-2024 Study report [facility] [place] [address] [place] [address] XRay Report Signed Patient: Darling Khanna MR#: [id number] : 1980 Acct:[id number] Age/Sex: 44 / F ADM Date: 4 Loc: MR Room: Type: [facility] Attending Dr: Robert Martinez DPM, MS [...] Osmani Stovall M.D.06/04/2024 11:51 PM Dictation Location: [place] [address] Transcribed By: [facility] 06/04/242350 Dictated By: Osmani Stovall DO 06/04/242350 Signed By: 06/04/242350 [facility] XR pre/post mri xrayon 06-04 XR pre/post mri xray [facility] [place] [address] XRay Report Signed Patient: Darling Khanna MR#: [id number] 1872 : 1980 Acct:[id number] Age/Sex: 44 / F ADM Date: 06/04/24 Loc: Room: Type: [facility] Attending Dr: Robert Martinez DPM, MS [...] Osmani Stovall M.D.06/04/2024 11:51 PM Dictation Location: [facility]-01 Transcribed By: [facility] 06/04/242350 Dictated By: Osmani Stovall DO 06/04/242350 Signed By: 06/04/242350 Normal [facility] EMG 2 Extremitieson 05-22-20 24 S1 radiculopathy, le ft, mild [facility] NCC -12 Nerveson 4 S1 radiculopathy, le ft, mild [facility] FL upper GI w air*on 024 FL upper GI w air* [facility] [address] [address] Fluoroscopy Report Signed Patient: Darling Khanna MR#: [id number] 1872 : 1980 Acct:[id number] Age/Sex: 43 / F ADM Date: 03/12/24 Loc: UL Room: Type: [facility] CLI Attending Dr: Peter Ahumada DO [...] Osmani Stovall M.D.03/12/2024 2:09 PM Dictation Location: [place] [address] Transcribed By: [facility] 03/12/24 1409 Dictated By: Osmani Stovall DO 03/12/24 1040 Signed By: 03/12/24 1409 Normal [facility] US gall bladderon 03-12-2024 US gall bladder [facility] [address] [address] Ultrasound Report Signed Patient: Darling Khanna MR#: [id number] 1872 : 1980 Acct:[id number] Age/Sex: 43 / F ADM Date: 03/12/24 Loc: Room: Type: [facility] CLI Attending Dr: Peter Ahumada DO Ordering Provider: [...] Osmani Stovall M.D.03/12/2024 10:39 AM Dictation Location: [place] [address] Tech: Nellie Solis Transcribed By: ADIA 03/12/24 1039 Dictated By: Osmani Stovall DO 03/12/24 1036 Signed By: 03/12/24 1039 Normal [facility] A1C with Estimated Average G terrell 03-05-2024 Glucose [Mass/Vol] 128 mg/dL Normal [facility] Comment on above: Result Comment: PERF ORMED BY: [facility] [address] [place] [id number] PATHOLOGIST WIRE TECHNICIAN ALVIN VIDES M.D. Performed By: #### T 4F, CBC, TSH3, A1C [facility] eA, LIPID, CMP ####[facility] [place] [address] [facility] Alanine aminotransferase [En zymatic activity/volume] in Serum or PlasmaOrdered By: Peter Ahumada on 03-05-2024 ALT [Catalytic activity/Vol] 10 U/L Normal 7-52 [facility] Comment on above: Performed By: #### T 4F, CBC, TSH3, A1C [facility] eA, LIPID, CMP ####[facility] [place] [address] Albumin [Mass/volume] in Ser um or Plasma by Bromocresol green (BCG) dye binding methoOrdered By: Peter Ahumada on 03-05-2024 Albumin BCG dye [Mass/Vol] 4.0 g/dL 3.5-5.7 [facility] Alkaline phosphatase [Enzyma tic activity/volume] in Serum or PlasmaOrdered By: Peter Ahumada on 03-05-2024 ALP [Catalytic activity/Vol] 46 U/L Normal 34-104 [facility] Comment on above: Performed By: #### T 4F, CBC, TSH3, A1C WTH eA, LIPID, CMP ####[facility] Aspartate aminotransferase [ Enzymatic activity/volume] in Serum or PlasmaOrdered By: Peter Ahumada on 03-05-2024 AST [Catalytic activity/Vol] 20 U/L Normal 13-39 [facility] Comment on above: Performed By: #### T 4F, CBC, TSH3, A1C WTH eA, LIPID, CMP ####[facility] Automated basophil %Ordered By: Peter Ahumada on 03-05-2024 Basophils/100 WBC (Bld) 0.7 % Normal . [facility] Comment on above: Performed By: #### T 4F, CBC, TSH3, A1C WTH eA, LIPID, CMP #### [facility] [address] Automated basophil countOrde red By: Peter Ahumada on 03-05-2024 Basophils (Bld) [#/Vol] 0.0 10*3/uL Normal 0.0-0.2 [facility] Comment on above: Result Comment: PERF ORMED BY: [facility] [address] [place] [address] PATHOLOGIST WIRE TECHNICIAN ALVIN VIDES M.D. Performed By: #### T 4F, CBC, TSH3, A1C WTH eA, LIPID, CMP #### [facility] [address] Automated blood monocyte cou ntOrdered By: Peter Ahumada on 03-05-2024 Monocytes (Bld) [#/Vol] 0.5 10*3/uL Normal 0.0-0.8 [facility] Comment on above: Performed By: #### T 4F, CBC, TSH3, A1C WTH eA, LIPID, CMP #### [facility] [address] Automated eosinophil %Ordere d By: Peter Ahumada on 03-05-2024 Eosinophils/100 WBC (Bld) 2.2 % Normal . [facility] Comment on above: Performed By: #### T 4F, CBC, TSH3, A1C WTH eA, LIPID, CMP #### [facility] [address] Automated eosinophil countOr dered By: Peter Ahumada on 03-05-2024 Eosinophils (Bld) [#/Vol] 0.1 10*3/uL Normal 0.0-0.45 [facility] Comment on above: Performed By: #### T 4F, CBC, TSH3, A1C WTH eA, LIPID, CMP #### [facility] [address] Automated monocyte %Ordered By: Peter Ahumada on 03-05-2024 Monocytes/100 WBC (Bld) 7.5 % Normal . [facility] Comment on above: Performed By: #### T 4F, CBC, TSH3, A1C WTH eA, LIPID, CMP #### [facility] [address] Automated neutrophil %Ordere d By: Peter Ahumada on 03-05-2024 Neutrophils/100 WBC (Bld) 53.3 % Normal . [facility] Comment on above: Performed By: #### T 4F, CBC, TSH3, A1C WTH eA, LIPID, CMP #### [facility] [address] Bilirubin.total [Mass/volume ] in Serum or PlasmaOrdered By: Peter Ahumada on 03-05-2024 Bilirubin [Mass/Vol] 0.4 mg/dL Normal 0.3-1.0 [facility] Comment on above: Performed By: #### T 4F, CBC, TSH3, A1C WTH eA, LIPID, CMP ####[place] [address] [place] [address] [place] Calcium [Mass/volume] in Ser um or PlasmaOrdered By: Peter Ahumada on 03-05-2024 Calcium [Mass/Vol] 8.9 mg/dL Normal 8.6-10.3 [facility] Comment on above: Performed By: #### T 4F, CBC, TSH3, A1C WTH eA, LIPID, CMP ####[address] [address] [facility] Carbon dioxide, total [Moles /volume] in Serum or PlasmaOrdered By: Peter Ahumada on 03-05-2024 CO2 [Moles/Vol] 28.7 mmol/L Normal 21.0-31.0 [facility] Comment on above: Performed By: #### T 4F, CBC, TSH3, A1C WTH eA, LIPID, CMP ####[place] [id number] [place] Chloride [Moles/volume] in S renetta or PlasmaOrdered By: Peter Ahumada on 03-05-2024 Chloride [Moles/Vol] 103 mmol/L Normal 98-107 [facility] Comment on above: Performed By: #### T 4F, CBC, TSH3, A1C WTH eA, LIPID, CMP ####[place] [id number] [facility] Cholesterol [Mass/volume] in Serum or PlasmaOrdered By: Peter Ahumada on 03-05-2024 Cholesterol [Mass/Vol] 166 mg/dL Normal 140-200 [facility] Comment on above: Chol less than 200 m g/dl low riskChol 201-239 mg/dl borderline riskChol 240 mg/dl and greater high risk Result Comment: Chol less than 200 mg/dl low risk Chol 201-239 mg/dl borderline risk Chol 240 mg/dl and greater high risk Performed By: #### T 4F, CBC, TSH3, A1C WTH eA, LIPID, CMP ####[place] [id number] [place] Cholesterol in LDL Calc [Mas s/Vol]Ordered By: Peter Ahumada on 03-05-2024 Cholesterol in LDL [Mass/Vol] 76 mg/dL 0-100 [facility] Comment on above: LDL ATP III CLASSIFI CATIONLDL less than 100 mg/dL OptimalLDL 100-129 mg/dL Near or above optimalLDL 130-159 mg/dL Borderline highLDL 160-189 mg/dL HighLDL greater than 189 mg/dL Very high Cholesterol in VLDL Calc [Ma ss/Vol]Ordered By: Peter Ahumada on 03-05-2024 Cholesterol in VLDL [Mass/Vol] 40 mg/dL [facility] Complete Blood Count Auto Di ffon 03-05-2024 Mean Corpuscular HGB Conc 33.6 g/dL Normal 32.0-35.0 [facility] Comment on above: Performed By: #### T 4F, CBC, TSH3, A1C WTH eA, LIPID, CMP #### [facility] [address] NRBC% 0.1 /100{WBC} Normal 0-0.5 [facility] Comment on above: Performed By: #### T 4F, CBC, TSH3, A1C WTH eA, LIPID, CMP #### [facility] [address] Comprehensive Metabolic Pane prasanth 03-05-2024 Albumin [Mass/Vol] 4.0 g/dL Normal 3.5-5.7 [facility] Comment on above: Performed By: #### T 4F, CBC, TSH3, A1C WTH eA, LIPID, CMP ####[facility] [place] [address] [place] GFR/1.73 sq M.predicted MDRD (S/P/Bld) [Vol rate/Area] mL/min/{1.73_m2} Normal [facility] Comment on above: Performed By: #### T 4F, CBC, TSH3, A1C WTH eA, LIPID, CMP ####[place] [id number] [address] Creatinine [Mass/volume] in Serum or PlasmaOrdered By: Peter Ahumada on 03-05-2024 Creatinine [Mass/Vol] 0.63 mg/dL Normal 0.60-1.20 [facility] Comment on above: Performed By: #### T 4F, CBC, TSH3, A1C WTH eA, LIPID, CMP ####[facility] Acq[address] Erythrocyte distribution wid th [Ratio] by Automated countOrdered By: Peter Ahumada on 03-05-2024 Erythrocyte distribution width (RBC) [Ratio] 13.4 % Normal 11.9-15.3 [facility] Comment on above: Performed By: #### T 4F, CBC, TSH3, A1C WTH eA, LIPID, CMP #### [facility] [address] Erythrocytes [#/volume] in B lood by Automated countOrdered By: Peter Ahumada on 03-05-2024 RBC (Bld) [#/Vol] 4.44 10*6/uL Normal 3.60-5.00 [facility] Comment on above: Performed By: #### T 4F, CBC, TSH3, A1C WTH eA, LIPID, CMP #### [facility] [address] [place] [address] [place] Glucose [Mass/volume] in Ser um or PlasmaOrdered By: Peter Ahumada on 03-05-2024 Glucose [Mass/Vol] 96 mg/dL Normal 70-100 [facility] Comment on above: ADA recommended refe rence rangeRandom Glucose Reference Range is dependent on time and content of last meal. Glucose of more than 200 mg/dL in a nonstressed, ambulatory subject supports the diagnosis of Diabetes Mellitus. Result Comment: [place] om Glucose Reference Range is dependent on time and content of last meal. Glucose of more than 200 mg/dL in a nonstressed, ambulatory subject supports the diagnosis of Diabetes Mellitus. ADA recommended reference range Performed By: #### T 4F, CBC, TSH3, A1C WTH eA, LIPID, CMP ####[facility] [id number] [place] [id number] [facility] Glucose mean value [Mass/vol ume] in Blood Estimated from glycated hemoglobinOrdered By: Peter Ahumada on 03-05-2024 Average glucose Estimated from glycated hemoglobin (Bld) [Mass/Vol] 128 mg/dL [facility] Hematocrit [Volume Fraction] of Blood by Automated countOrdered By: Peter Ahumada on 03-05-2024 Hematocrit (Bld) [Volume fraction] 37.2 % Normal 34.0-46.4 [facility] Comment on above: Performed By: #### T 4F, CBC, TSH3, A1C WTH eA, LIPID, CMP #### [facility] [address] Hemoglobin A1c percentageOrd ered By: Peter Ahumada on 03-05-2024 HbA1c (Bld) [Mass fraction] 6.1 % High 4.3-5.6 [facility] Comment on above: Increased risk for d iabetes: 5.7 - 6.4diabetes: >6.4glycemic control for adults with diabetes: <7.0 Result Comment: Incr eased risk for diabetes: 5.7 - 6.4 diabetes: >6.4 glycemic control for adults with diabetes: <7.0 Performed By: #### T 4F, CBC, TSH3, A1C WTH eA, LIPID, CMP ####[facility] Wot[address] Hemoglobin [Mass/volume] in BloodOrdered By: Peter Ahumada on 03-05-2024 Hemoglobin (Bld) [Mass/Vol] 12.5 g/dL Normal 11.8-15.4 [facility] Comment on above: Performed By: #### T 4F, CBC, TSH3, A1C WTH eA, LIPID, CMP #### [facility] [address] Leukocytes [#/volume] correc bryan for nucleated erythrocytes in Blood by Automated counOrdered By: Peter Ahumada on 03-05-2024 WBC corrected for nucl RBC Auto (Bld) [#/Vol] 6.2 10*3/uL 3.8-11.6 [facility] Leukocytes [#/volume] in Blo od by Automated countOrdered By: Peter Ahumada on 03-05-2024 WBC (Bld) [#/Vol] 6.2 10*3/uL Normal 3.8-11.6 [facility] Comment on above: Performed By: #### T 4F, CBC, TSH3, A1C WTH eA, LIPID, CMP #### [facility] [address] Lipid Panelon 03-05-2024 LDL Cholesterol,Calculated 76 mg/dL Normal 0-100 [facility] Comment on above: Result Comment: LDL ATP III CLASSIFICATION LDL less than 100 mg/dL Optimal LDL 100-129 mg/dL Near or above optimal LDL 130-159 mg/dL Borderline high LDL 160-189 mg/dL High LDL greater than 189 mg/dL Very high Performed By: #### T 4F, CBC, TSH3, A1C WTH eA, LIPID, CMP ####[facility] Triglyceride w/Reflex 202 mg/dL High 0-149 [facility] Comment on above: Result Comment: TRIG ATP III CLASSIFICATION TRIG less than 150 mg/dL Normal TRIG 150-199 mg/dL Borderline high TRIG 200-500 mg/dL High TRIG greater than 500 mg/dL Very high Standard traceable to the Center for Disease Conrtrol and Prevention (CDC) test method. Performed By: #### T 4F, CBC, TSH3, A1C WTH eA, LIPID, CMP ####[facility] VLDL CHOLESTEROL 40 mg/dL Normal [facility] Comment on above: Performed By: #### T 4F, CBC, TSH3, A1C WTH eA, LIPID, CMP ####[facility] Lymphocytes [#/volume] in Bl ood by Automated countOrdered By: Peter Ahumada on 03-05-2024 Lymphocytes (Bld) [#/Vol] 2.2 10*3/uL Normal 1.00-4.8 [facility] Comment on above: Performed By: #### T 4F, CBC, TSH3, A1C WTH eA, LIPID, CMP #### [facility] [address] Lymphocytes/100 leukocytes i n Blood by Automated countOrdered By: Peter Ahumada on 03-05-2024 Lymphocytes/100 WBC (Bld) 36.3 % Normal . [facility] Comment on above: Performed By: #### T 4F, CBC, TSH3, A1C WTH eA, LIPID, CMP #### [facility] [address] MCH [Entitic mass] by Automa bryan countOrdered By: Peter Ahumada on 03-05-2024 MCH (RBC) [Entitic mass] 28.2 pg Normal 24.7-34.3 [facility] Comment on above: Performed By: #### T 4F, CBC, TSH3, A1C WTH eA, LIPID, CMP #### [facility] [address] MCHC Auto (RBC) [Mass/Vol]Or dered By: Peter Ahumada on 03-05-2024 MCHC (RBC) [Mass/Vol] 33.6 g/dL 32.0-35.0 [facility] MCV [Entitic volume] by Auto mated countOrdered By: Peter Ahumada on 03-05-2024 MCV (RBC) [Entitic vol] 83.8 fL Normal 80-100 [facility] Comment on above: Performed By: #### T 4F, CBC, TSH3, A1C WTH eA, LIPID, CMP #### [address] Neutrophils [#/volume] in Bl ood by Automated countOrdered By: Peter Ahumada on 03-05-2024 Neutrophils (Bld) [#/Vol] 3.3 10*3/uL Normal 1.8-7.7 [facility] Comment on above: Performed By: #### T 4F, CBC, TSH3, A1C WTH eA, LIPID, CMP #### [facility] [address] No Panel InformationOrdered By: Peter Ahumada on 03-05-2024 Estimated GFR (CKD-EPI) > 60.0 mL/Min [facility] Creatinine Clearance (Chem N/A [facility] Nucleated erythrocytes [Pres ence] in Blood by Automated countOrdered By: Peter Ahumada on 03-05-2024 Nucleated RBC Auto Ql (Bld) 0.1 /100{WBC} 0-0.5 [facility] Platelet mean volume [Entiti c volume] in Blood by Automated countOrdered By: Peter Ahumada on 03-05-2024 Platelet mean volume (Bld) [Entitic vol] 8.7 fL Normal 6.3-10.7 [facility] Comment on above: Performed By: #### T 4F, CBC, TSH3, A1C WTH eA, LIPID, CMP #### [facility] [address] Platelets [#/volume] in Bloo d by Automated countOrdered By: Peter Ahumada on 03-05-2024 Platelets (Bld) [#/Vol] 333 10*3/uL Normal 150-450 [facility] Comment on above: Performed By: #### T 4F, CBC, TSH3, A1C WTH eA, LIPID, CMP #### [facility] [address] Potassium [Moles/volume] in Serum or PlasmaOrdered By: Peter Ahumada on 03-05-2024 Potassium [Moles/Vol] 3.8 mmol/L Normal 3.5-5.1 [facility] Comment on above: Performed By: #### T 4F, CBC, TSH3, A1C WTH eA, LIPID, CMP ####[facility] [id number] Protein [Mass/volume] in Ser um or PlasmaOrdered By: Peter Ahumada on 03-05-2024 Protein [Mass/Vol] 6.7 g/dL Normal 6.4-8.9 [facility] Comment on above: Performed By: #### T 4F, CBC, TSH3, A1C WTH eA, LIPID, CMP ####[facility] [id number] Serum globulin measurement b y calculation (mass/volume)Ordered By: Peter Ahumada on 03-05-2024 Globulin (S) [Mass/Vol] 2.7 g/dL Normal [facility] Comment on above: Performed By: #### T 4F, CBC, TSH3, A1C WTH eA, LIPID, CMP ####[place] [id number] Serum or plasma albumin/glob ulin mass ratioOrdered By: Peter Ahumada on 03-05-2024 Albumin/Globulin [Mass ratio] 1.5 {ratio} Normal [facility] Comment on above: Performed By: #### T 4F, CBC, TSH3, A1C WT eA, LIPID, CMP ####[address] Serum or plasma anion gap de terminationOrdered By: Peter Ahumada on 03-05-2024 Anion gap [Moles/Vol] 11.1 mmol/L Normal 6.0-15.0 [facility] Comment on above: Performed By: #### T 4F, CBC, TSH3, A1C WTH eA, LIPID, CMP ####[address] Serum or plasma high density lipoprotein (HDL) cholesterol measurementOrdered By: Peter Ahumada on 03-05-2024 Cholesterol in HDL [Mass/Vol] 50 mg/dL Normal 23-92 [facility] Comment on above: HDL CHOL ATP-III CLA SSIFICATION Cardiovascular RiskHDL > or equal to 60 mg/dL LOWHDL < 40 mg/dL HIGH Result Comment: HDL CHOL ATP-III CLASSIFICATION Cardiovascular Risk HDL > or equal to 60 mg/dL LOW HDL < 40 mg/dL HIGH Performed By: #### T 4F, CBC, TSH3, A1C WTH eA, LIPID, CMP ####[address] Serum or plasma total choles terol/high density lipoprotein (HDL) cholesterol mass ratOrdered By: Peter Ahumada on 03-05-2024 Cholesterol.total/Chol esterol in HDL [Mass ratio] 3.3 {ratio} Normal <5.0 [facility] Comment on above: Performed By: #### T 4F, CBC, TSH3, A1C WTH eA, LIPID, CMP ####[address] Sodium [Moles/volume] in Ser um or PlasmaOrdered By: Peter Ahumada on 03-05-2024 Sodium [Moles/Vol] 139 mmol/L Normal 136-145 [facility] Comment on above: Performed By: #### T 4F, CBC, TSH3, A1C WTH eA, LIPID, CMP ####[place] [id number] [place] [id number] [facility] Thyrotropin [Units/volume] i n Serum or PlasmaOrdered By: Peter Ahumada on 03-05-2024 TSH Qn 0.29 m[IU]/L Low 0.45-5.33 [facility] Comment on above: Result Comment: PERF ORMED BY: [facility] [address] [place] [id number] PATHOLOGIST WIRE TECHNICIAN ALVIN VIDES M.D. Performed By: #### T 4F, CBC, TSH3, A1C WTH eA, LIPID, CMP ####[place] [id number] [place] [id number] [facility] Thyroxine (T4) free [Mass/vo lume] in Serum or PlasmaOrdered By: Peter Ahumada on 03-05-2024 Free T4 [Mass/Vol] 0.81 ng/dL Normal 0.61-1.12 [facility] Comment on above: Performed By: #### T 4F, CBC, TSH3, A1C WTH eA, LIPID, CMP ####[place] [id number] [place] [id number] [facility] Triglyceride [Mass/volume] i n Serum or PlasmaOrdered By: Peter Ahumada on 03-05-2024 Triglyceride [Mass/Vol] 202 mg/dL High 0-149 [facility] Comment on above: TRIG ATP III CLASSIF ICATIONTRIG less than 150 mg/dL NormalTRIG 150-199 mg/dL Borderline highTRIG 200-500 mg/dL High TRIG greater than 500 mg/dL Very highStandard traceable to the Center for Disease Conrtrol and Prevention (CDC) test method. Urea nitrogen [Mass/volume] in Serum or PlasmaOrdered By: Peter Ahumada on 03-05-2024 Urea nitrogen [Mass/Vol] 11 mg/dL Normal 7-25 [facility] Comment on above: Performed By: #### T 4F, CBC, TSH3, A1C WTH eA, LIPID, CMP ####[facility] [id number] [place] [address] [facility] XR elbow RT 2Von 02-13-2024 XR elbow RT 2V [facility] [address] [place] [address] XRay Report Signed Patient: Darling Khanna MR#: [id number] : 1980 Acct:[id number] Age/Sex: 43 / F ADM Date: 02/13/24 [place] [facility] [place]: Type: [facility] Attending Dr: Chas Meza DO Copies [...] Osmani Stovall M.D.02/13/2024 4:07 PM Dictation Location: [place] [address] Transcribed By: [facility] 02/13/24 1607 Dictated By: Osmani Stovall DO 02/13/24 1607 Signed By: 02/13/24 1607 Normal [facility] HCG ( test) IA.rapi d Ql (U)Ordered By: Rahul Rogers on 01-29-2024 HCG ( test) Ql (U) Negative [facility] Thyrotropin [Units/volume] i n Serum or PlasmaOrdered By: Peter Ahumada on 08-22-2023 TSH Qn 0.15 m[IU]/L 0.45-5.33 [facility] Thyroxine (T4) free [Mass/vo lume] in Serum or PlasmaOrdered By: Peter Ahumada on 08-22-2023 Free T4 [Mass/Vol] 0.97 ng/dL 0.61-1.12 [facility] Alanine aminotransferase [En zymatic activity/volume] in Serum or PlasmaOrdered By: Peter Ahumada on 05-25-2023 ALT [Catalytic activity/Vol] 7 U/L 7-52 [facility] Albumin [Mass/volume] in Ser um or Plasma by Bromocresol green (BCG) dye binding methoOrdered By: Peter Ahumada on 05-25-2023 Albumin BCG dye [Mass/Vol] 3.8 g/dL 3.5-5.7 [facility] Alkaline phosphatase [Enzyma tic activity/volume] in Serum or PlasmaOrdered By: Peter Ahumada on 05-25-2023 ALP [Catalytic activity/Vol] 54 U/L 34-104 [facility] Aspartate aminotransferase [ Enzymatic activity/volume] in Serum or PlasmaOrdered By: Peter Ahumada on 05-25-2023 AST [Catalytic activity/Vol] 17 U/L 13-39 [facility] Basophils Auto (Bld) [#/Vol] Ordered By: Peter Ahumada on 05-25-2023 Basophils (Bld) [#/Vol] 0.1 10*3/uL 0.0-0.2 [facility] Basophils/100 WBC Auto (Bld) Ordered By: Peter Ahumada on 05-25-2023 Basophils/100 WBC (Bld) 1.1 % . [facility] Bilirubin.total [Mass/volume ] in Serum or PlasmaOrdered By: Peter Ahumada on 05-25-2023 Bilirubin [Mass/Vol] 0.3 mg/dL 0.3-1.0 [facility] Calcium [Mass/volume] in Ser um or PlasmaOrdered By: Peter Ahumada on 05-25-2023 Calcium [Mass/Vol] 8.8 mg/dL 8.6-10.3 [facility] Carbon dioxide, total [Moles /volume] in Serum or PlasmaOrdered By: Peter Ahumada on 05-25-2023 CO2 [Moles/Vol] 29.9 mmol/L 21.0-31.0 [facility] Chloride [Moles/volume] in S renetta or PlasmaOrdered By: Peter Ahumada on 05-25-2023 Chloride [Moles/Vol] 107 mmol/L 98-107 [facility] Cholesterol [Mass/volume] in Serum or PlasmaOrdered By: Peter Ahumada on 05-25-2023 Cholesterol [Mass/Vol] 181 mg/dL 140-200 [facility] Comment on above: Chol less than 200 m g/dl low riskChol 201-239 mg/dl borderline riskChol 240 mg/dl and greater high risk Cholesterol in LDL Calc [Mas s/Vol]Ordered By: Peter Ahumada on 05-25-2023 Cholesterol in LDL [Mass/Vol] 115 mg/dL 0-100 [facility] Comment on above: LDL ATP III CLASSIFI CATIONLDL less than 100 mg/dL OptimalLDL 100-129 mg/dL Near or above optimalLDL 130-159 mg/dL Borderline highLDL 160-189 mg/dL HighLDL greater than 189 mg/dL Very high Cholesterol in VLDL Calc [Ma ss/Vol]Ordered By: Peter Ahumada on 05-25-2023 Cholesterol in VLDL [Mass/Vol] 22 mg/dL [facility] Creatinine [Mass/volume] in Serum or PlasmaOrdered By: Peter Ahumada on 05-25-2023 Creatinine [Mass/Vol] 0.59 mg/dL 0.60-1.20 [facility] Eosinophils Auto (Bld) [#/Vo l]Ordered By: Peter Ahumada on 05-25-2023 Eosinophils (Bld) [#/Vol] 0.1 10*3/uL 0.0-0.45 [facility] Eosinophils/100 WBC Auto (Bl d)Ordered By: Peter Ahumada on 05-25-2023 Eosinophils/100 WBC (Bld) 1.9 % . [facility] Erythrocyte distribution wid th Auto (RBC) [Ratio]Ordered By: Peter Ahumada on 05-25-2023 Erythrocyte distribution width (RBC) [Ratio] 13.7 % 11.9-15.3 [facility] Globulin Calc (S) [Mass/Vol] Ordered By: Peter Ahumada on 05-25-2023 Globulin (S) [Mass/Vol] 2.7 g/dL [facility] Glucose [Mass/volume] in Ser um or PlasmaOrdered By: Peter Ahumada on 05-25-2023 Glucose [Mass/Vol] 87 mg/dL 70-100 [facility] Comment on above: ADA recommended refe [...] hemoglobin (Bld) [Mass/Vol] 126 mg/dL [facility] Hematocrit Auto (Bld) [Volum e fraction]Ordered By: Peter Ahumada on 05-25-2023 Hematocrit (Bld) [Volume fraction] 36.2 % 34.0-46.4 [facility] Hemoglobin A1c percentageOrd ered By: Peter Ahumada on 05-25-2023 HbA1c (Bld) [Mass fraction] 6.0 % 4.3-5.6 [facility] Comment on above: Increased risk for d iabetes: 5.7 - 6.4diabetes: >6.4glycemic control for adults with diabetes: <7.0 Hemoglobin [Mass/volume] in BloodOrdered By: Peter Ahumada on 05-25-2023 Hemoglobin (Bld) [Mass/Vol] 11.8 g/dL 11.8-15.4 [facility] Leukocytes [#/volume] correc bryan for nucleated erythrocytes in Blood by Automated counOrdered By: Peter Ahumada on 05-25-2023 WBC corrected for nucl RBC Auto (Bld) [#/Vol] 6.1 10*3/uL 3.8-11.6 [facility] Lymphocytes Auto (Bld) [#/Vo l]Ordered By: Peter Ahumada on 05-25-2023 Lymphocytes (Bld) [#/Vol] 2.0 10*3/uL 1.00-4.8 [facility] Lymphocytes/100 WBC Auto (Bl d)Ordered By: Peter Ahumada on 05-25-2023 Lymphocytes/100 WBC (Bld) 32.1 % . [facility] MCH Auto (RBC) [Entitic mass ]Ordered By: Peter Ahumada on 05-25-2023 MCH (RBC) [Entitic mass] 27.3 pg 24.7-34.3 [facility] MCHC Auto (RBC) [Mass/Vol]Or dered By: Peter Ahumada on 05-25-2023 MCHC (RBC) [Mass/Vol] 32.7 g/dL 32.0-35.0 [facility] MCV Auto (RBC) [Entitic vol] Ordered By: Peter Ahumada on 05-25-2023 MCV (RBC) [Entitic vol] 83.5 fL 80-100 [facility] Monocytes Auto (Bld) [#/Vol] Ordered By: Peter Ahumada on 05-25-2023 Monocytes (Bld) [#/Vol] 0.3 10*3/uL 0.0-0.8 [facility] Monocytes/100 WBC Auto (Bld) Ordered By: Peter Ahumada on 05-25-2023 Monocytes/100 WBC (Bld) 5.2 % . [facility] Neutrophils Auto (Bld) [#/Vo l]Ordered By: Peter Ahumada on 05-25-2023 Neutrophils (Bld) [#/Vol] 3.6 10*3/uL 1.8-7.7 [facility] Neutrophils/100 WBC Auto (Bl d)Ordered By: Peter Ahumada on 05-25-2023 Neutrophils/100 WBC (Bld) 59.7 % . [facility] No Panel InformationOrdered By: Peter Ahumada on 05-25-2023 Estimated GFR (CKD-EPI) > 60.0 mL/Min [facility] Creatinine Clearance (Chem N/A [facility] Nucleated erythrocytes [Pres ence] in Blood by Automated countOrdered By: Peter Ahumada on 05-25-2023 Nucleated RBC Auto Ql (Bld) 0.1 /100{WBC} 0-0.5 [facility] Platelet mean volume Auto (B ld) [Entitic vol]Ordered By: Peter Ahumada on 05-25-2023 Platelet mean volume (Bld) [Entitic vol] 8.5 fL 6.3-10.7 [facility] Platelets Auto (Bld) [#/Vol] Ordered By: Peter Ahumada on 05-25-2023 Platelets (Bld) [#/Vol] 364 10*3/uL 150-450 [facility] Potassium [Moles/volume] in Serum or PlasmaOrdered By: Peter Ahumada on 05-25-2023 Potassium [Moles/Vol] 4.0 mmol/L 3.5-5.1 [facility] Protein [Mass/volume] in Ser um or PlasmaOrdered By: Peter Ahumada on 05-25-2023 Protein [Mass/Vol] 6.5 g/dL 6.4-8.9 [facility] RBC Auto (Bld) [#/Vol]Ordere d By: Peter Ahumada on 05-25-2023 RBC (Bld) [#/Vol] 4.34 10*6/uL 3.60-5.00 [facility] Serum or plasma albumin/glob ulin mass ratioOrdered By: Peter Ahumada on 05-25-2023 Albumin/Globulin [Mass ratio] 1.4 {ratio} [facility] Serum or plasma anion gap de terminationOrdered By: Peter Ahumada on 05-25-2023 Anion gap [Moles/Vol] 10.1 mmol/L 6.0-15.0 [facility] Serum or plasma high density lipoprotein (HDL) cholesterol measurementOrdered By: Peter Ahumada on 05-25-2023 Cholesterol in HDL [Mass/Vol] 44 mg/dL 23-92 [facility] Comment on above: HDL CHOL ATP-III CLA SSIFICATION Cardiovascular RiskHDL > or equal to 60 mg/dL LOWHDL < 40 mg/dL HIGH Serum or plasma total choles terol/high density lipoprotein (HDL) cholesterol mass ratOrdered By: Peter Ahumada on 05-25-2023 Cholesterol.total/Chol esterol in HDL [Mass ratio] 4.1 {ratio} <5.0 [facility] Sodium [Moles/volume] in Ser um or PlasmaOrdered By: Peter Ahumada on 05-25-2023 Sodium [Moles/Vol] 143 mmol/L 136-145 [facility] Thyrotropin [Units/volume] i n Serum or PlasmaOrdered By: Peter Ahumada on 05-25-2023 TSH Qn 0.73 m[IU]/L 0.45-5.33 [facility] Thyroxine (T4) free [Mass/vo lume] in Serum or PlasmaOrdered By: Peter Ahumada on 05-25-2023 Free T4 [Mass/Vol] 0.79 ng/dL 0.61-1.12 [facility] Triglyceride [Mass/volume] i n Serum or PlasmaOrdered By: Peter Ahumada on 05-25-2023 Triglyceride [Mass/Vol] 112 mg/dL 0-149 [facility] Comment on above: TRIG ATP III CLASSIF ICATIONTRIG less than 150 mg/dL NormalTRIG 150-199 mg/dL Borderline highTRIG 200-500 mg/dL High TRIG greater than 500 mg/dL Very highStandard traceable to the Center for Disease Conrtrol and Prevention (CDC) test method. Urea nitrogen [Mass/volume] in Serum or PlasmaOrdered By: Peter Ahumada on 05-25-2023 Urea nitrogen [Mass/Vol] 10 mg/dL 02-13 [facility] WBC Auto (Bld) [#/Vol]Ordere d By: Peter Ahumada on 05-25-2023 WBC (Bld) [#/Vol] 6.1 10*3/uL 3.8-11.6 [facility] Thyrotropin [Units/volume] i n Serum or PlasmaOrdered By: Peter Ahumada on 03-19-2023 TSH Qn 2.20 m[IU]/L 0.45-5.33 [facility] Thyroxine (T4) free [Mass/vo lume] in Serum or PlasmaOrdered By: Peter Ahumada on 03-19-2023 Free T4 [Mass/Vol] 0.62 ng/dL 0.61-1.12 [facility] Alanine aminotransferase [En zymatic activity/volume] in Serum or PlasmaOrdered By: Alba Marshall on 11-01-2022 ALT [Catalytic activity/Vol] 7 U/L [facility] Albumin [Mass/volume] in Ser um or Plasma by Bromocresol green (BCG) dye binding methoOrdered By: Alba Marshall on 11-01-2022 Albumin BCG dye [Mass/Vol] 3.7 g/dL 3.5-5.7 [facility] Alkaline phosphatase [Enzyma tic activity/volume] in Serum or PlasmaOrdered By: Alba Ibrahimore on 11-01-2022 ALP [Catalytic activity/Vol] 47 U/L 34-104 [facility] Aspartate aminotransferase [ Enzymatic activity/volume] in Serum or PlasmaOrdered By: Alba Wrenimore on 11-01-2022 AST [Catalytic activity/Vol] 12 U/L 13-39 [facility] Automated erythrocytes count in urine sediment (number/area)Ordered By: Alba Marshall on 11-01-2022 RBC Auto (Urine sed) [#/Area] 1-2 [HPF] 0-4 [facility] Comment on above: --- 11/01/22 1049 -- -Ur RBC previously reported as: 1-2 /HPFMicroscopic results may be affected due to low specimen volume. Automated leukocytes count i n urine sediment (number/area)Ordered By: Alba Marshall on 11-01-2022 WBC Auto (Urine sed) [#/Area] 1-2 [HPF] 0-4 [facility] Basophils Auto (Bld) [#/Vol] Ordered By: Albayehuda Marshall on 11-01-2022 Basophils (Bld) [#/Vol] 0.1 10*3/uL 0.0-0.2 [facility] Basophils/100 WBC Auto (Bld) Ordered By: Albayehuda Marshall on 11-01-2022 Basophils/100 WBC (Bld) 0.9 % . [facility] Bilirubin Test strip Ql (U)O rdered By: Albayehuda Marshall on 11-01-2022 Bilirubin Ql (U) Negative Negative [facility] Bilirubin.direct [Mass/volum e] in Serum or PlasmaOrdered By: Alba Marshall on 11-01-2022 Bilirubin.direct [Mass/Vol] 0.10 mg/dL 0.03-0.18 [facility] Bilirubin.total [Mass/volume ] in Serum or PlasmaOrdered By: Alba Marshall on 11-01-2022 Bilirubin [Mass/Vol] 0.3 mg/dL 0.3-1.0 [facility] Calcium [Mass/volume] in Ser um or PlasmaOrdered By: Alba Bullimore on 11-01-2022 Calcium [Mass/Vol] 8.8 mg/dL 8.6-10.3 [facility] Carbon dioxide, total [Moles /volume] in Serum or PlasmaOrdered By: Alba Bullimore on 11-01-2022 CO2 [Moles/Vol] 27.6 mmol/L 21.0-31.0 [facility] Chloride [Moles/volume] in S renetta or PlasmaOrdered By: Alba Bullimore on 11-01-2022 Chloride [Moles/Vol] 105 mmol/L 98-107 [facility] Choriogonadotropin.beta subu nit [Units/volume] in Serum or PlasmaOrdered By: Alba Bullimlila on 11-01-2022 HCG.beta subunit Qn m[IU]/mL [facility] Comment on above: Approximate Approxim ate hCG Gestational Age Range (mIU/ml) (weeks)0.2-1 5-50 1-2 50-500 2-3 100-5,000 3-4 500-10,000 4-5 1,000-50,000 5-6 10,000-100,000 6-8 15,000-200,000 8-12 10,000-100,000 Color Auto (U)Ordered By: Malgorzata Marshall on 11-01-2022 Color (U) Yellow Yellow [facility] Creatinine [Mass/volume] in Serum or PlasmaOrdered By: Alba Bullimore on 11-01-2022 Creatinine [Mass/Vol] 0.60 mg/dL 0.60-1.20 [facility] Eosinophils Auto (Bld) [#/Vo l]Ordered By: Alba Wrenimore on 11-01-2022 Eosinophils (Bld) [#/Vol] 0.2 10*3/uL 0.0-0.45 [facility] Eosinophils/100 WBC Auto (Bl d)Ordered By: Alba Wrenimore on 11-01-2022 Eosinophils/100 WBC (Bld) 3.0 % . [facility] Erythrocyte distribution wid th Auto (RBC) [Ratio]Ordered By: Albayehuda Marshall on 11-01-2022 Erythrocyte distribution width (RBC) [Ratio] 13.2 % 11.9-15.3 [facility] Globulin Calc (S) [Mass/Vol] Ordered By: Albayehuda Marshall on 11-01-2022 Globulin (S) [Mass/Vol] 3.1 g/dL [facility] Glucose [Mass/volume] in Ser um or PlasmaOrdered By: Albayehuda Marshall on 11-01-2022 Glucose [Mass/Vol] 95 mg/dL 70-100 [facility] Comment on above: ADA recommended refe rence rangeRandom Glucose Reference Range is dependent on time and content of last meal. Glucose of more than 200 mg/dL in a nonstressed, ambulatory subject supports the diagnosis of Diabetes Mellitus. Hematocrit Auto (Bld) [Volum e fraction]Ordered By: Albayehuda Marshall on 11-01-2022 Hematocrit (Bld) [Volume fraction] 36.8 % 34.0-46.4 [facility] Hemoglobin [Mass/volume] in BloodOrdered By: [facility] Rolando on 11-01-2022 Hemoglobin (Bld) [Mass/Vol] 12.5 g/dL 11.8-15.4 [facility] Ketones Auto test strip (U) [Mass/Vol]Ordered By: Albayehuda Marshall on 11-01-2022 Ketones (U) [Mass/Vol] Negative Negative [facility] - UrinalysisOrder ed By: Alba Marshall on 11-01-2022 Hyaline casts LM Ql (Urine sed) 0-8 [LPF] 0-8 [facility] Leukocytes [#/volume] correc bryan for nucleated erythrocytes in Blood by Automated counOrdered By: Alba Marshall on 11-01-2022 WBC corrected for nucl RBC Auto (Bld) [#/Vol] 7.8 10*3/uL 3.8-11.6 [facility] Lymphocytes Auto (Bld) [#/Vo l]Ordered By: Alba Marshall on 11-01-2022 Lymphocytes (Bld) [#/Vol] 1.5 10*3/uL 1.00-4.8 [facility] Lymphocytes/100 WBC Auto (Bl d)Ordered By: Alba Wrenimore on 11-01-2022 Lymphocytes/100 WBC (Bld) 19.6 % . [facility] MCH Auto (RBC) [Entitic mass ]Ordered By: Alba Wrenimore on 11-01-2022 MCH (RBC) [Entitic mass] 28.3 pg 24.7-34.3 [facility] MCHC Auto (RBC) [Mass/Vol]Or dered By: Alba Bullimore on 11-01-2022 MCHC (RBC) [Mass/Vol] 33.9 g/dL 32.0-35.0 [facility] MCV Auto (RBC) [Entitic vol] Ordered By: Alba Wrenimore on 11-01-2022 MCV (RBC) [Entitic vol] 83.3 fL 80-100 [facility] Monocyte distribution width [Entitic volume] in Blood by AutomatedOrdered By: Alba Wrenimore on 11-01-2022 Monocyte distribution width Auto (Bld) [Entitic vol] 17.79 % 0.00-20.00 [facility] Monocytes Auto (Bld) [#/Vol] Ordered By: Alba Wrenimore on 11-01-2022 Monocytes (Bld) [#/Vol] 0.5 10*3/uL 0.0-0.8 [facility] Monocytes/100 WBC Auto (Bld) Ordered By: Alba Wrenimore on 11-01-2022 Monocytes/100 WBC (Bld) 6.9 % . [facility] Neutrophils Auto (Bld) [#/Vo l]Ordered By: Alba [place] on 11-01-2022 Neutrophils (Bld) [#/Vol] 5.4 10*3/uL 1.8-7.7 [facility] Neutrophils/100 WBC Auto (Bl d)Ordered By: Albayehuda Wrenimore on 11-01-2022 Neutrophils/100 WBC (Bld) 69.6 % . [facility] Nitrite Test strip Ql (U)Ord ered By: Alba Ibrahimore on 11-01-2022 Nitrite Ql (U) Negative Negative [facility] No Panel InformationOrdered By: Alba Holgerimore on 11-01-2022 Estimated GFR (CKD-EPI) > 60.0 mL/Min [facility] Creatinine Clearance (Chem 179.12 [facility] Nucleated erythrocytes [Pres ence] in Blood by Automated countOrdered By: Alba Bullimore on 11-01-2022 Nucleated RBC Auto Ql (Bld) 0.1 /100{WBC} 0-0.5 [facility] Platelet mean volume Auto (B ld) [Entitic vol]Ordered By: Alba Bullimore on 11-01-2022 Platelet mean volume (Bld) [Entitic vol] 7.5 fL 6.3-10.7 [facility] Platelets Auto (Bld) [#/Vol] Ordered By: Alba Bullimore on 11-01-2022 Platelets (Bld) [#/Vol] 278 10*3/uL 150-450 [facility] Potassium [Moles/volume] in Serum or PlasmaOrdered By: Alba Bullimore on 11-01-2022 Potassium [Moles/Vol] 4.3 mmol/L 3.5-5.1 [facility] Protein Auto test strip (U) [Mass/Vol]Ordered By: Alba Bullimore on 11-01-2022 Protein (U) [Mass/Vol] Negative Negative [facility] Protein [Mass/volume] in Ser um or PlasmaOrdered By: Alba Bullimore on 11-01-2022 Protein [Mass/Vol] 6.8 g/dL 6.4-8.9 [facility] RBC Auto (Bld) [#/Vol]Ordere d By: Alba Bullimore on 11-01-2022 RBC (Bld) [#/Vol] 4.41 10*6/uL 3.60-5.00 [facility] Serum or plasma albumin/glob ulin mass ratioOrdered By: Alba Bullimore on 11-01-2022 Albumin/Globulin [Mass ratio] 1.2 {ratio} [facility] Serum or plasma anion gap de terminationOrdered By: Alba Bullimore on 11-01-2022 Anion gap [Moles/Vol] 10.7 mmol/L 6.0-15.0 [facility] Serum or plasma non-glucuron idated bilirubin measurement (mass/volume)Ordered By: Alba Marshall on 11-01-2022 Bilirubin.indirect [Mass/Vol] 0.2 mg/dL [facility] Sodium [Moles/volume] in Ser um or PlasmaOrdered By: Alba Marshall on 11-01-2022 Sodium [Moles/Vol] 139 mmol/L 136-145 [facility] Specific gravity Auto test s trip (U) [Rel density]Ordered By: Alba Marshall on 11-01-2022 Specific gravity (U) [Rel density] 1.021 1.001-1.030 [facility] Squamous epithelial cells de tection in urine sediment by light microscopyOrdered By: Alba Marshall on 11-01-2022 Epithelial cells.squamous LM Ql (Urine sed) 3-4 [HPF] 0-2 [facility] Urea nitrogen [Mass/volume] in Serum or PlasmaOrdered By: Alba Marshall on 11-01-2022 Urea nitrogen [Mass/Vol] 7 mg/dL 7-25 [facility] Urine bacteria detection by automated methodOrdered By: Alba Marshall on 11-01-2022 Bacteria Auto Ql (U) 1+ None Seen [facility] Comment on above: --- 11/01/22 1050 -- -Ur Bact previously reported as: 1+ H Microscopic results may be affected due to low specimen volume. Urine clarity by refractomet ry automatedOrdered By: Alba Marshall on 11-01-2022 Clarity Refractometry automated (U) Clear Clear [facility] Urine glucose measurement by automated test strip (mass/volume)Ordered By: Alba Marshall on 11-01-2022 Glucose Auto test strip (U) [Mass/Vol] Normal mg/dL Normal [facility] Urine hemoglobin detection b y automated test stripOrdered By: Alba Marshall on 11-01-2022 Hemoglobin Auto test strip Ql (U) 1+ Negative [facility] Urine leukocyte esterase det ection by automated test stripOrdered By: Alba Marshall on 11-01-2022 Leukocyte esterase Auto test strip Ql (U) Negative Negative [facility] Urobilinogen Auto test strip (U) [Mass/Vol]Ordered By: Alba Marshall on 11-01-2022 Urobilinogen (U) [Mass/Vol] Normal mg/dL Normal [facility] WBC Auto (Bld) [#/Vol]Ordere d By: Alba Marshall on 11-01-2022 WBC (Bld) [#/Vol] 7.8 10*3/uL 3.8-11.6 [facility] Yeast detection in urine sed iment by light microscopyOrdered By: Alba Marshall on 11-01-2022 Yeast LM Ql (Urine sed) None seen [HPF] None Seen [facility] Comment on above: --- 11/01/22 1050 [...] pH (U) 6.5 [pH] 5.0-9.0 [facility] Alanine aminotransferase [En zymatic activity/volume] in Serum or PlasmaOrdered By: Peter Ahumada on 10-31-2022 ALT [Catalytic activity/Vol] 8 U/L 7-52 [facility] Albumin [Mass/volume] in Ser um or Plasma by Bromocresol green (BCG) dye binding methoOrdered By: Peter Ahumada on 10-31-2022 Albumin BCG dye [Mass/Vol] 3.8 g/dL 3.5-5.7 [facility] Alkaline phosphatase [Enzyma tic activity/volume] in Serum or PlasmaOrdered By: Peter Ahumada on 10-31-2022 ALP [Catalytic activity/Vol] 49 U/L 34-104 [facility] Aspartate aminotransferase [ Enzymatic activity/volume] in Serum or PlasmaOrdered By: Peter Ahumada on 10-31-2022 AST [Catalytic activity/Vol] 16 U/L 13-39 [facility] Basophils Auto (Bld) [#/Vol] Ordered By: Peter Ahumada on 10-31-2022 Basophils (Bld) [#/Vol] 0.1 10*3/uL 0.0-0.2 [facility] Basophils/100 WBC Auto (Bld) Ordered By: Peter Ahumada on 10-31-2022 Basophils/100 WBC (Bld) 0.9 % . [facility] Bilirubin.total [Mass/volume ] in Serum or PlasmaOrdered By: Peter Ahumada on 10-31-2022 Bilirubin [Mass/Vol] 0.3 mg/dL 0.3-1.0 [facility] Calcium [Mass/volume] in Ser um or PlasmaOrdered By: Peter Ahumada on 10-31-2022 Calcium [Mass/Vol] 9.0 mg/dL 8.6-10.3 [facility] Carbon dioxide, total [Moles /volume] in Serum or PlasmaOrdered By: Peter Ahumada on 10-31-2022 CO2 [Moles/Vol] 25.8 mmol/L 21.0-31.0 [facility] Chloride [Moles/volume] in S renetta or PlasmaOrdered By: Peter Ahumada on 10-31-2022 Chloride [Moles/Vol] 106 mmol/L 98-107 [facility] Cholesterol [Mass/volume] in Serum or PlasmaOrdered By: Peter Ahumada on 10-31-2022 Cholesterol [Mass/Vol] 152 mg/dL 140-200 [facility] Comment on above: Chol less than 200 m g/dl low riskChol 201-239 mg/dl borderline riskChol 240 mg/dl and greater high risk Cholesterol in LDL Calc [Mas s/Vol]Ordered By: Peter Ahumada on 10-31-2022 Cholesterol in LDL [Mass/Vol] 74 mg/dL 0-100 [facility] Comment on above: LDL ATP III CLASSIFI CATIONLDL less than 100 mg/dL OptimalLDL 100-129 mg/dL Near or above optimalLDL 130-159 mg/dL Borderline highLDL 160-189 mg/dL HighLDL greater than 189 mg/dL Very high Cholesterol in VLDL Calc [Ma ss/Vol]Ordered By: Peter Ahumada on 10-31-2022 Cholesterol in VLDL [Mass/Vol] 25 mg/dL [facility] Creatinine [Mass/volume] in Serum or PlasmaOrdered By: Peter Ahumada on 10-31-2022 Creatinine [Mass/Vol] 0.55 mg/dL 0.60-1.20 [facility] Eosinophils Auto (Bld) [#/Vo l]Ordered By: Peter Ahumada on 10-31-2022 Eosinophils (Bld) [#/Vol] 0.2 10*3/uL 0.0-0.45 [facility] Eosinophils/100 WBC Auto (Bl d)Ordered By: Peter Ahumada on 10-31-2022 Eosinophils/100 WBC (Bld) 2.9 % . [facility] Erythrocyte distribution wid th Auto (RBC) [Ratio]Ordered By: Peter Ahumada on 10-31-2022 Erythrocyte distribution width (RBC) [Ratio] 13.3 % 11.9-15.3 [facility] Globulin Calc (S) [Mass/Vol] Ordered By: Peter Ahumada on 10-31-2022 Globulin (S) [Mass/Vol] 2.8 g/dL [facility] Glucose [Mass/volume] in Ser um or PlasmaOrdered By: Peter Ahumada on 10-31-2022 Glucose [Mass/Vol] 98 mg/dL 70-100 [facility] Comment on above: ADA recommended refe rence rangeRandom Glucose Reference Range is dependent on time and content of last meal. Glucose of more than 200 mg/dL in a nonstressed, ambulatory subject supports the diagnosis of Diabetes Mellitus. Hematocrit Auto (Bld) [Volum e fraction]Ordered By: Peter Ahumada on 10-31-2022 Hematocrit (Bld) [Volume fraction] 37.3 % 34.0-46.4 [facility] Hemoglobin [Mass/volume] in BloodOrdered By: Peter Ahumada on 10-31-2022 Hemoglobin (Bld) [Mass/Vol] 12.4 g/dL 11.8-15.4 [facility] Leukocytes [#/volume] correc bryan for nucleated erythrocytes in Blood by Automated counOrdered By: Peter Ahumada on 10-31-2022 WBC corrected for nucl RBC Auto (Bld) [#/Vol] 8.2 10*3/uL 3.8-11.6 [facility] Lymphocytes Auto (Bld) [#/Vo l]Ordered By: Peter Ahumada on 10-31-2022 Lymphocytes (Bld) [#/Vol] 1.8 10*3/uL 1.00-4.8 [facility] Lymphocytes/100 WBC Auto (Bl d)Ordered By: Peter Ahumada on 10-31-2022 Lymphocytes/100 WBC (Bld) 21.7 % . [facility] MCH Auto (RBC) [Entitic mass ]Ordered By: Peter Ahumada on 10-31-2022 MCH (RBC) [Entitic mass] 28.0 pg 24.7-34.3 [facility] MCHC Auto (RBC) [Mass/Vol]Or dered By: Peter Ahumada on 10-31-2022 MCHC (RBC) [Mass/Vol] 33.3 g/dL 32.0-35.0 [facility] MCV Auto (RBC) [Entitic vol] Ordered By: Peter Ahumada on 10-31-2022 MCV (RBC) [Entitic vol] 84.1 fL 80-100 [facility] Monocytes Auto (Bld) [#/Vol] Ordered By: Peter Ahumada on 10-31-2022 Monocytes (Bld) [#/Vol] 0.5 10*3/uL 0.0-0.8 [facility] Monocytes/100 WBC Auto (Bld) Ordered By: Peter Ahumada on 10-31-2022 Monocytes/100 WBC (Bld) 6.2 % . [facility] Neutrophils Auto (Bld) [#/Vo l]Ordered By: Peter Ahumada on 10-31-2022 Neutrophils (Bld) [#/Vol] 5.6 10*3/uL 1.8-7.7 [facility] Neutrophils/100 WBC Auto (Bl d)Ordered By: Peter Ahumada on 10-31-2022 Neutrophils/100 WBC (Bld) 68.3 % . [facility] No Panel InformationOrdered By: Peter Ahumada on 04-11-2023 Estimated GFR (CKD-EPI) > 60.0 mL/Min [facility] Creatinine Clearance (Chem N/A [facility] Nucleated erythrocytes [Pres ence] in Blood by Automated countOrdered By: Peter Ahumada on 10-31-2022 Nucleated RBC Auto Ql (Bld) 0.1 /100{WBC} 0-0.5 [facility] Platelet mean volume Auto (B ld) [Entitic vol]Ordered By: Peter Ahumada on 10-31-2022 Platelet mean volume (Bld) [Entitic vol] 8.8 fL 6.3-10.7 [facility] Platelets Auto (Bld) [#/Vol] Ordered By: Peter Ahumada on 10-31-2022 Platelets (Bld) [#/Vol] 305 10*3/uL 150-450 [facility] Potassium [Moles/volume] in Serum or PlasmaOrdered By: Peter Ahumada on 10-31-2022 Potassium [Moles/Vol] 4.2 mmol/L 3.5-5.1 [facility] Protein [Mass/volume] in Ser um or PlasmaOrdered By: Peter Ahumada on 10-31-2022 Protein [Mass/Vol] 6.6 g/dL 6.4-8.9 [facility] RBC Auto (Bld) [#/Vol]Ordere d By: Peter Ahumada on 10-31-2022 RBC (Bld) [#/Vol] 4.44 10*6/uL 3.60-5.00 [facility] Serum or plasma albumin/glob ulin mass ratioOrdered By: Peter Ahumada on 10-31-2022 Albumin/Globulin [Mass ratio] 1.4 {ratio} [facility] Serum or plasma anion gap de terminationOrdered By: Peter Ahumada on 10-31-2022 Anion gap [Moles/Vol] 11.4 mmol/L 6.0-15.0 [facility] Serum or plasma high density lipoprotein (HDL) cholesterol measurementOrdered By: Peter Ahumada on 10-31-2022 Cholesterol in HDL [Mass/Vol] 53 mg/dL 35-85 [facility] Comment on above: HDL CHOL ATP-III CLA SSIFICATION Cardiovascular RiskHDL > or equal to 60 mg/dL LOWHDL < 40 mg/dL HIGH Serum or plasma total choles terol/high density lipoprotein (HDL) cholesterol mass ratOrdered By: Peter Ahumada on 10-31-2022 Cholesterol.total/Chol esterol in HDL [Mass ratio] 2.9 {ratio} <5.0 [facility] Sodium [Moles/volume] in Ser um or PlasmaOrdered By: Peter Ahumada on 10-31-2022 Sodium [Moles/Vol] 139 mmol/L 136-145 [facility] Thyrotropin [Units/volume] i n Serum or PlasmaOrdered By: Peter Ahumada on 10-31-2022 TSH Qn 0.61 m[IU]/L 0.45-5.33 [facility] Thyroxine (T4) free [Mass/vo lume] in Serum or PlasmaOrdered By: Peter Ahumada on 10-31-2022 Free T4 [Mass/Vol] 0.76 ng/dL 0.61-1.12 [facility] Triglyceride [Mass/volume] i n Serum or PlasmaOrdered By: Peter Ahumada on 10-31-2022 Triglyceride [Mass/Vol] 125 mg/dL 0-149 [facility] Comment on above: TRIG ATP III CLASSIF ICATIONTRIG less than 150 mg/dL NormalTRIG 150-199 mg/dL Borderline highTRIG 200-500 mg/dL High TRIG greater than 500 mg/dL Very highStandard traceable to the Center for Disease Conrtrol and Prevention (CDC) test method. Urea nitrogen [Mass/volume] in Serum or PlasmaOrdered By: Peter Ahumada on 10-31-2022 Urea nitrogen [Mass/Vol] 6 mg/dL 7-25 [facility] WBC Auto (Bld) [#/Vol]Ordere d By: Peter Ahumada on 10-31-2022 WBC (Bld) [#/Vol] 8.2 10*3/uL 3.8-11.6 [facility] Albumin [Mass/volume] in Ser um or PlasmaOrdered By: Peter Ahumada on 04-19-2022 Albumin [Mass/Vol] 3.2 g/dL 3.2-5.5 [facility] Basophils Auto (Bld) [#/Vol] Ordered By: Peter Ahumada on 04-19-2022 Basophils (Bld) [#/Vol] 0.0 10*3/uL 0.0-0.2 [facility] Basophils/100 WBC Auto (Bld) Ordered By: Peter Ahumada on 04-19-2022 Basophils/100 WBC (Bld) 0.7 % . [facility] Blood hemoglobin measurement (mass/volume)Ordered By: Peter Ahumada on 04-19-2022 Hemoglobin (Bld) [Mass/Vol] 12.3 g/dL 11.8-15.4 [facility] Blood leukocytes automated c ount (number/volume)Ordered By: Peter Ahumada on 04-19-2022 WBC (Bld) [#/Vol] 5.9 10*3/uL 4.5-11.0 [facility] Cholesterol [Mass/volume] in Serum or PlasmaOrdered By: Peter Ahumada on 04-19-2022 Cholesterol [Mass/Vol] 159 mg/dL 140-200 [facility] Comment on above: Chol less than 200 m g/dl low riskChol 201-239 mg/dl borderline riskChol 240 mg/dl and greater high risk Cholesterol in LDL Calc [Mas s/Vol]Ordered By: Peter Ahumada on 04-19-2022 Cholesterol in LDL [Mass/Vol] 84 mg/dL 0-100 [facility] Comment on above: LDL ATP III CLASSIFI CATIONLDL less than 100 mg/dL OptimalLDL 100-129 mg/dL Near or above optimalLDL 130-159 mg/dL Borderline highLDL 160-189 mg/dL HighLDL greater than 189 mg/dL Very high Cholesterol in VLDL Calc [Ma ss/Vol]Ordered By: Peter Ahumada on 04-19-2022 Cholesterol in VLDL [Mass/Vol] 22 mg/dL [facility] Creatinine and Glomerular fi ltration rate.predicted panel (S/P/Bld)Ordered By: Peter Ahumada on 04-19-2022 Creatinine [Mass/Vol] 0.58 mg/dL 0.44-1.03 [facility] Eosinophils Auto (Bld) [#/Vo l]Ordered By: Peter Ahumada on 04-19-2022 Eosinophils (Bld) [#/Vol] 0.1 10*3/uL 0.0-0.45 [facility] Eosinophils/100 WBC Auto (Bl d)Ordered By: Peter Ahumada on 04-19-2022 Eosinophils/100 WBC (Bld) 2.4 % . [facility] Erythrocyte distribution wid th Auto (RBC) [Ratio]Ordered By: Peter Ahumada on 04-19-2022 Erythrocyte distribution width (RBC) [Ratio] 13.4 % 11.9-15.3 [facility] Estimated glomerular filtrat ion rate (GFR) non- AmericanOrdered By: Peter Ahumada on 04-19-2022 GFR/1.73 sq M.predicted among non-blacks MDRD (S/P/Bld) [Vol rate/Area] > 60 mL/Min [facility] Globulin Calc (S) [Mass/Vol] Ordered By: Peter Ahumada on 04-19-2022 Globulin (S) [Mass/Vol] 3.1 g/dL [facility] Hematocrit Auto (Bld) [Volum e fraction]Ordered By: Peter Ahumada on 04-19-2022 Hematocrit (Bld) [Volume fraction] 37.1 % 34.0-46.4 [facility] Laboratory - Hematology and Cell countsOrdered By: Peter Ahumada on 04-19-2022 Nucleated RBC/100 WBC (Bld) [Ratio] 0.1 % 0-0.5 [facility] Lymphocytes Auto (Bld) [#/Vo l]Ordered By: Peter Ahumada on 04-19-2022 Lymphocytes (Bld) [#/Vol] 1.7 10*3/uL 1.00-4.8 [facility] Lymphocytes/100 WBC Auto (Bl d)Ordered By: Peter Ahumada on 04-19-2022 Lymphocytes/100 WBC (Bld) 28.8 % . [facility] MCH Auto (RBC) [Entitic mass ]Ordered By: Peter Ahumada on 04-19-2022 MCH (RBC) [Entitic mass] 27.8 pg 24.7-34.3 [facility] MCHC Auto (RBC) [Mass/Vol]Or dered By: Peter Ahumada on 04-19-2022 MCHC (RBC) [Mass/Vol] 33.2 g/dL 32.0-35.0 [facility] MCV Auto (RBC) [Entitic vol] Ordered By: Peter Ahumada on 04-19-2022 MCV (RBC) [Entitic vol] 83.6 fL 80-100 [facility] Monocytes Auto (Bld) [#/Vol] Ordered By: Peter Ahumada on 04-19-2022 Monocytes (Bld) [#/Vol] 0.4 10*3/uL 0.0-0.8 [facility] Monocytes/100 WBC Auto (Bld) Ordered By: Peter Ahumada on 04-19-2022 Monocytes/100 WBC (Bld) 6.6 % . [facility] Neutrophils Auto (Bld) [#/Vo l]Ordered By: Peter Ahumada on 04-19-2022 Neutrophils (Bld) [#/Vol] 3.6 10*3/uL 1.8-7.7 [facility] Neutrophils/100 WBC Auto (Bl d)Ordered By: Peter Ahumada on 04-19-2022 Neutrophils/100 WBC (Bld) 61.5 % . [facility] No Panel InformationOrdered By: Peter Ahumada on 04-19-2022 Estimated GFR () > 60 mL/Min [facility] Comment on above: GFR estimated refere nce range: According to KDOQI guidelines, <60 ml/min/1.73m2 is sufficient to diagnose a patient with chronic kidney disease. Pharmacy Creatinine Clearance (Chem N/A [facility] Platelet mean volume Auto (B ld) [Entitic vol]Ordered By: Peter Ahumada on 04-19-2022 Platelet mean volume (Bld) [Entitic vol] 8.9 fL 6.3-10.7 [facility] Platelets Auto (Bld) [#/Vol] Ordered By: Peter Ahumada on 04-19-2022 Platelets (Bld) [#/Vol] 319 10*3/uL 150-450 [facility] Protein [Mass/volume] in Ser um or PlasmaOrdered By: Peter Ahumada on 04-19-2022 Protein [Mass/Vol] 6.3 g/dL 6.1-7.9 [facility] RBC Auto (Bld) [#/Vol]Ordere d By: Peter Ahumada on 04-19-2022 RBC (Bld) [#/Vol] 4.43 10*6/uL 3.60-5.00 [facility] Serum or plasma alanine ny otransferase measurement without P-5'-P (enzymatic activiOrdered By: Peter Ahumada on 04-19-2022 ALT No additional P-5'-P [Catalytic activity/Vol] 9 U/L 10-60 [facility] Serum or plasma albumin/glob ulin mass ratioOrdered By: Peter Ahumada on 04-19-2022 Albumin/Globulin [Mass ratio] 1.0 {ratio} [facility] Serum or plasma alkaline deirdre sphatase measurement (enzymatic activity/volume)Ordered By: Peter Ahumada on 04-19-2022 ALP [Catalytic activity/Vol] 41 U/L 32-92 [facility] Serum or plasma anion gap de terminationOrdered By: Peter Ahumada on 04-19-2022 Anion gap [Moles/Vol] 13.9 mmol/L 6.0-15.0 [facility] Serum or plasma aspartate am inotransferase measurement (enzymatic activity/volume)Ordered By: Peter Ahumada on 04-19-2022 AST [Catalytic activity/Vol] 15 U/L 10-42 [facility] Serum or plasma calcium scotty urement (mass/volume)Ordered By: Peter Ahumada on 04-19-2022 Calcium [Mass/Vol] 8.8 mg/dL 8.2-10.2 [facility] Serum or plasma chloride francoise surement (moles/volume)Ordered By: Peter Ahumada on 04-19-2022 Chloride [Moles/Vol] 100 mmol/L 95-114 [facility] Serum or plasma glucose scotty urement (mass/volume)Ordered By: Peter Ahumada on 04-19-2022 Glucose [Mass/Vol] 87 mg/dL 70-100 [facility] Comment on above: ADA recommended refe rence rangeRandom Glucose Reference Range is dependent on time and content of last meal. Glucose of more than 200 mg/dL in a nonstressed, ambulatory subject supports the diagnosis of Diabetes Mellitus. Serum or plasma high density lipoprotein (HDL) cholesterol measurementOrdered By: Peter Ahumada on 04-19-2022 Cholesterol in HDL [Mass/Vol] 53 mg/dL 35-85 [facility] Comment on above: HDL CHOL ATP-III CLA SSIFICATION Cardiovascular RiskHDL > or equal to 60 mg/dL LOWHDL < 40 mg/dL HIGH Serum or plasma potassium me asurement (moles/volume)Ordered By: Peter Ahumada on 04-19-2022 Potassium [Moles/Vol] 3.9 mmol/L 3.5-5.1 [facility] Serum or plasma sodium measu rement (moles/volume)Ordered By: Peter Ahumada on 04-19-2022 Sodium [Moles/Vol] 136 mmol/L 136-146 [facility] Serum or plasma total biliru bin measurement (mass/volume)Ordered By: Peter Ahumada on 04-19-2022 Bilirubin [Mass/Vol] 0.4 mg/dL 0.3-1.2 [facility] Serum or plasma total carbon dioxide measurement (moles/volume)Ordered By: Peter Ahumada on 04-19-2022 CO2 [Moles/Vol] 26.0 mmol/L 22.0-30.0 [facility] Serum or plasma total choles terol/high density lipoprotein (HDL) cholesterol mass ratOrdered By: Peter Ahumada on 04-19-2022 Cholesterol.total/Chol esterol in HDL [Mass ratio] 3.0 {ratio} <5.0 [facility] Serum or plasma urea nitroge n measurement (mass/volume)Ordered By: Peter Ahumada on 04-19-2022 Urea nitrogen [Mass/Vol] 5 mg/dL 9- [facility] TSH DL <= 0.005 mIU/L QnOrde red By: Peter Ahumada on 04-19-2022 TSH Qn 1.94 m[IU]/L 0.45-5.33 [facility] Thyroxine (T4) free [Mass/vo lume] in Serum or PlasmaOrdered By: Peter Ahumada on 04-19-2022 Free T4 [Mass/Vol] 0.69 ng/dL 0.61-1.12 [facility] Triglyceride [Mass/volume] i n Serum or PlasmaOrdered By: Peter Ahumada on 04-19-2022 Triglyceride [Mass/Vol] 111 mg/dL 35-149 [facility] Comment on above: TRIG ATP III CLASSIF ICATIONTRIG less than 150 mg/dL NormalTRIG 150-199 mg/dL Borderline highTRIG 200-500 mg/dL High TRIG greater than 500 mg/dL Very highStandard traceable to the Center for Disease Conrtrol and Prevention (CDC) test method. CNOVon 10-13-2021 CNOV Office Visit ([id number] ) -------- DARLING KHANNA ([id number]) 1980 F Date Time Provider Department 10/13/21 1:30 PM KATE DANIEL [id number] During your visit today, we recorded the following information about you: Temperature Pulse Blood pressure Weight 97.7 degrees 68/minute 112/55 115.2 kg Height 1.829 m Kate Daniel MD 10/17/2021 1:50 PM Signed Assessment ESTABLISHED PATIENT Darling Khanna is a 40 year old female with a right posterior liver subcapsular fluid collection ? 03/03/2021: Patient presented to [facility] on 02/08/2021 for 2 days for [...] Records From:? 02/08/2021 ER Report [facility] 02/09/2021 ER Report [facility] 02/15/2021 PCP Office note ? Visited [...] of month. Gained?50 pounds since July?(was in [place] for 3 months, drank a lot); diagnosed [...] well. She did spend 3 months in [place] and did not have any issues, hospitalizations [...] which included preparing to see the patient, [id number] patient care and completing clinical documentation. MD Jayne Garrido Ma 10/13/2021 1:33 PM Signed What is the reason for your visit today? Follow up Who is your referring physician? Are you having poor oral intake? NO Have you had unintentional weight loss of 15 lbs/7 Kg in the last 3-6 months? NO Bowels: regular Wound: Temperature: No Drains: No Referring Provider: KATE DANIEL [[id number]] Allergies As of Date: 10/13/2021 Noted Allergy [...] of 05/10 (more content not included)... Normal [facility] Mayela 09-30-2021 [facility] Telephone ([id number]) -------- DARLING KHANNA ([id number]) 1980 F Date Time Provider Department 09/30/21 KATE DANIEL [id number] During your visit today, we recorded the following information about you: Sujatha Tomas 09/30/2021 9:00 AM Signed Called patient to reschedule her 10/13 in person to virtual. She would like to keep in person. She also wants to know if a CT or MRI can be ordered of her pancreas abdomen as she hasn't had anything done recently. She can be reached at [phone]. Talat Armendariz RN 10/10/2021 11:29 AM Signed [...] Status:Closed by TALAT ARMENDARIZ RN on 10/10/21 [facility] Silvana 04-07-2021 CNOV Office Visit ([id number] ) -------- DARLING KHANNA ([id number]) 1980 F Date Time Provider Department 04/07/21 2:30 PM KATE DANIEL [id number] During your visit today, we recorded the following information about you: Temperature Pulse Blood pressure Weight 97.5 degrees 95/minute 136/77 109.3 kg Height 1.829 m Jayne Aguila Juaquin 04/07/2021 2:31 PM Signed What is the [...] subcapsular fluid collection 03/03/2021: Patient presented to [facility] on 02/08/2021 for 2 days for [...] Records From:? 02/08/2021 ER Report [facility] 02/09/2021 ER Report [facility] 02/15/2021 PCP Office note ? Visited [...] Gained 50 pounds since July (was in [place] for 3 months, drank a lot); diagnosed [...] which included preparing to see the patient, [id number] patient care and completing clinical documentation. Kate Daniel MD Referring Provider: KATE DANIEL [[id number]] Allergies As of Date: 04/07/2021 Noted Allergy [...] Temperature: No (more content not included)... Normal [facility] CNTRTMon 03-22-2021 CNTRTM Treatment Team (ANSHUL VILLAFUERTE) -------- DARLING KHANNA ([id number]) 1980 F Date Time Provider Department 03/22/21 [...] findings to suggest etiology Pre-conference plan (from [facility]): - Observation and serial imaging Imaging Review: - January 2021 - CT Abd/Pelvis and MRI Final Consensus Recommendation(s): - No clear etiology of right posterior subcapsular fluid collection - Fluid consistency is not consistent with a hematoma - No underlying masses or intrinsic liver pathology Final recommendation(s) differ from pre-conference plan? (Y/N) - Martha De León MD [facility] Surgical Fellow Allergies [...] Status:Closed by WILLIAM DE LEÓN on 03/23/21 [facility] CNOVon 03-03-2021 CNOV Office Visit (LOQ101 ) -------- DARLING KHANNA ([id number]) 1980 F Date Time Provider Department 03/03/21 10:00 AM KATE DANIEL [id number] During your visit today, we recorded the [...] 40 year old female Patient presented to [facility] on 02/08/2021 for 2 days for [...] Records From: 02/08/2021 ER Report [facility] 02/09/2021 ER Report [facility] 02/15/2021 PCP Office note Visited ER [...] Gained 50 pounds since July (was in [place] for 3 months, drank a lot); diagnosed [...] was malignant. Seen by Dr. Haines on [facility], in [facility]; denies chemotherapy [...] cm (6') (more content not included)... Normal [facility] -------- DARLING KHANNA ([id number]) 1980 F Date Time Provider Department 02/23/21 KATE DANIEL [facility] During your visit today, we recorded the following information about you: Talat Armendariz RN 02/23/2021 10:02 AM Addendum Hepatobiliary Surgery Consult HPI: Patient presented to [facility] on 02/08/2021 for 2 days for [...] Records From: 02/08/2021 ER Report [facility] 02/09/2021 ER Report [facility] 02/15/2021 PCP Office note Records Review BMI 33 Current OCP Imagin02/08/2021 CT A/P wo IVCON ([facility]- report rec'd) - minor basilar atelectasis or scarring - nonspecific lymph nodes - tiny umbilical hernia containing fat - no intra hepatic masses are noted - no bowel or urinary tract obstructions - no acute findings 02/08/2021 Ultrasound RUQ (Report [facility]- report rec'd) - unremarkable - no evidence of gallstones, gallbladder wall thickening, or ductal dilation 02/15/2021 CT A/P w IVCON (Report [facility]- report rec'd) - no acute abdominal or pelvis abnormality - indeterminate liver lesion: ill defined low attenuation lesion measuring at least 2.5cm in the medial segment of the left lobe of the liver posteriorly 02/17/2021 MRI Abdomen w/wo IVCON ([facility]- report rec'd) - unremarkable size of [...] months 02/22/2021 CT A/P w IVCON (Report [facility]- report rec'd) - 62mm x 20mm [...] 8:26 AM Signed Patient's records scanned into [facility] and imaging downloaded from [facility], please review. Tatyana Kilgore Pss 02/25/2021 9:53 AM Signed Scheduled patient for new consult on 03/03/2021. 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] Consult [173] Prescriptions as [...] Status:Closed by TATYANA PEDRO on 02/25/21 [facility] AMYL[facility] 02-22-2021 Amylase [Catalytic activity/Vol] 48 U/L Normal 31-110 [facility] Comment on above: Performed By: #### L IPA, CMP, SHAI #### [facility] [address] [place], [place] [address] Ruy Ayleen CBC AUTO DIFFon 02-22-2021 BASO # 0.1 103/ul Normal 0.0-0.1 [facility] Comment on above: Performed By: #### C BC #### [facility] [address] [place], [place] [address] Ruy Ayleen Basophils/100 WBC (Bld) 0.7 % Normal 0.2-2.0 [facility] Comment on above: Performed By: #### C BC #### [facility] [address] [place], [place] [address] Ruy Ayleen EO # 0.1 103/ul Normal 0.0-0.7 [facility] Comment on above: Performed By: #### C BC #### [facility] [address] [place], [place] [address] Ruy Ayleen Eosinophils/100 WBC (Bld) 1.2 % Normal 0.9-7.0 [facility] Comment on above: Performed By: #### C BC #### [facility] [address] [place], [place] [address] Ruy Ayleen Erythrocyte distribution width (RBC) [Ratio] 12.6 % Normal 11.0-15.0 [facility] Comment on above: Performed By: #### C BC #### [facility] [address] [place], [place] [address] Ruy Ayleen Hematocrit (Bld) [Volume fraction] 38.7 % Normal 36.0-48.0 [facility] Comment on above: Performed By: #### C BC #### [facility] [address] [place] [address] Ruy Ayleen Hemoglobin (Bld) [Mass/Vol] 12.6 g/dL Normal 12.0-16.0 [facility] Comment on above: Performed By: #### C BC #### [facility] [address] [place] [id number] Ruy Ayleen IG # 0.02 10e3/ul Normal 0.00-0.03 [facility] Comment on above: Performed By: #### C BC #### [facility] [address] [place] [address] Ruy Ayleen IG % 0.2 % Normal 0.0-0.5 [facility] Comment on above: Performed By: #### C BC #### [facility] [address] [place] [address] Ruy Ayleen LYMPH # 2.4 103/ul Normal 1.2-3.8 [facility] Comment on above: Performed By: #### C BC #### [facility] [address] [place] [address] Ruy Ayleen Lymphocytes/100 WBC (Bld) 22.4 % Normal 20.5-60.0 [facility] Comment on above: Performed By: #### C BC #### [facility] [address] [place] [address] Ruy Ayleen MANUAL DIFF REQ NO Normal [facility] Comment on above: Performed By: #### C BC #### [facility] [address] [place], [place] [address] Ruy Ayleen MCH (RBC) [Entitic mass] 27.7 pg Normal 26.7-34.0 [facility] Comment on above: Performed By: #### C BC #### [facility] [address] [place] [address] Ruy Ayleen MCHC (RBC) [Mass/Vol] 32.6 g/dL Normal 29.9-35.2 [facility] Comment on above: Performed By: #### C BC #### [facility] [address] [place] [address] Ruy Ayleen MCV (RBC) [Entitic vol] 85.1 fL Normal 81.0-99.0 [facility] Comment on above: Performed By: #### C BC #### [facility] [address] [place] [id number] Ruy Ayleen MONO # 0.7 103/ul Normal 0.3-0.8 [facility] Comment on above: Performed By: #### C BC #### [facility] [address] [place], [place] [address] Ruy Ayleen Monocytes/100 WBC (Bld) 6.5 % Normal 1.7-12.0 [facility] Comment on above: Performed By: #### C BC #### [facility] [address] [place], [place] [address] Ruy Ayleen NEUT # 7.3 103/ul Critically high 1.4-6.5 The [facility] Comment on above: Performed By: #### C BC #### [facility] [address] [place], [place] [address] Ruy Ayleen Neutrophils/100 WBC (Bld) 69.0 % Normal 43.0-75.0 [facility] Comment on above: Performed By: #### C BC #### [facility] [address] [place], [place] [address] Ruyradhames Cardozoen Platelet mean volume (Bld) [Entitic vol] 9.3 fL Critically low 9.5-13.5 [facility] Comment on above: Performed By: #### C BC #### [facility] [address] [place], [place] [address] Ruy Ayleen PLT 324 103/ul Normal 150-450 [facility] Comment on above: Performed By: #### C BC #### [facility] [address] [place], [place] [address] Ruy Ayleen RBC 4.55 106/ul Normal 4.20-5.40 [facility] Comment on above: Performed By: #### C BC #### [facility] [address] [place], [place] [address] Ruy Ayleen WBC 10.6 103/ul Normal 4.0-11.0 [facility] Comment on above: Performed By: #### C BC #### [facility] [address] [place], [place] [address] Ruy Ayleen CT ABD/PELV W CONon 02-23-20 CT ABD/PELV [...] MARINA HERNANDEZ Date: 2021-02-22 03:10 Normal [facility] D-DIMERon 02-22-2021 D-DIMER 0.40 mg/L FEU Normal 0.19-0.50 [facility] Comment on above: Performed By: #### D DIM #### [facility] [address] [place] [address] Ruy Abbasi D-DIMER COMMENTS SEE BELOW Normal [facility] Comment on above: Result Comment: [...] hospitalization. Performed By: #### D DIM #### [facility] [address] [place] [address] Ruy Abbasi LIPASEon 02-22-2021 Lipase [Catalytic activity/Vol] 120.0 U/L Normal 23.0-300.0 [facility] Comment on above: Performed By: #### L IPA, CMP, SHAI #### [facility] [address] [place], [place] [address] Ruy Abbasi MONOon 02-22-2021 Monocytes (Bld) [#/Vol] Negative Normal NEGATIVE [facility] Comment on above: Performed By: #### M IGOR #### [facility] [address] [place], [place] [address] Ruy Abbasi OT-CT ABD/PELVIS W CON IMPOR Ton 02-22-2021 OT-CT ABD/PELVIS W CON IMPORT Images were obtained outside of [facility] [id number] Normal [facility] OT-CT ABD/PELVIS W CON IMPORT Images were obtained outside of [facility] [id number] Normal [facility] PREG HCG QUALon 02-22-2021 , QUAL Negative Normal NEGATIVE The [facility] Comment on above: Performed By: #### P REG #### [facility] [address] [place], [place] [address] Ruy Cardozoen PROF 14(COMP METB)on 021 Albumin [Mass/Vol] 3.2 g/dL Critically low 3.5-5.0 Th [facility] Comment on above: Performed By: #### L IPA, CMP, SHAI #### [facility] [address] [place], [place] [address] Ruy Abbasi Albumin/Globulin [Mass ratio] 0.7 {ratio} Normal [facility] Comment on above: Performed By: #### L IPA, CMP, SHAI #### [facility] [address] [place], [place] [address] Ruy Ayleen ALP [Catalytic activity/Vol] 54 U/L Normal 38-126 [facility] Comment on above: Performed By: #### L IPA, CMP, SHAI #### [facility] [address] [place], [place] [address] Ruy Ayleen ALT [Catalytic activity/Vol] 11 U/L Normal 9-52 [facility] Comment on above: Performed By: #### L IPA, CMP, SHAI #### [facility] [address] [place], [place] [address] Ruy Ayleen Anion gap [Moles/Vol] 11.6 mmol/L Normal Th e [facility] Comment on above: Performed By: #### L IPA, CMP, SHAI #### [facility] [address] [place] [address] Ruy Ayleen AST [Catalytic activity/Vol] 12 U/L Critically low 14-36 [facility] Comment on above: Performed By: #### L IPA, CMP, SHAI #### [facility] [address] [place] [address] Ruy Ayleen Bilirubin [Mass/Vol] 0.2 mg/dL Normal 0.2-1.3 [facility] Comment on above: Performed By: #### L IPA, CMP, SHAI #### [facility] [address] [place] [address] Ruy Ayleen Calcium [Mass/Vol] 9.2 mg/dL Normal 8.4-10.2 [facility] Comment on above: Performed By: #### L IPA, CMP, SHAI #### [facility] [address] [place] [address] Ruy Ayleen Chloride [Moles/Vol] 104 mmol/L Normal 98-107 [facility] Comment on above: Performed By: #### L IPA, CMP, SHAI #### [facility] [address] [place] [address] Ruy Ayleen CO2 [Moles/Vol] 29.7 mmol/L Normal 22.0-30.0 [facility] Comment on above: Performed By: #### L IPA, CMP, SHAI #### [facility] [address] [place] [address] Ruy Ayleen Creatinine [Mass/Vol] 0.74 mg/dL Normal 0.52-1.04 [facility] Comment on above: Performed By: #### L IPA, CMP, SHAI #### [facility] [address] [place], [place] [address] Ruy Ayleen EGFR-AF MARTINIQUAIS >60 Normal >=60 [facility] Comment on above: Performed By: #### L IPA, CMP, SHAI #### [facility] [address] [place] [id number] Ruy Ayleen EGFR-NON AF MARTINIQUAIS >60 Normal >=60 [facility] Comment on above: Performed By: #### L IPA, CMP, SHAI #### [facility] [address] [place] [id number] Ruy Ayleen Globulin (S) [Mass/Vol] 4.4 g/dL Normal [facility] Comment on above: Performed By: #### L IPA, CMP, SHAI #### [facility] [address] [place] [address] Ruy Ayleen Glucose [Mass/Vol] 104 mg/dL Normal 74-106 [facility] Comment on above: Performed By: #### L IPA, CMP, SHAI #### [facility] [address] [place] [address] Ruy Ayleen Potassium [Moles/Vol] 4.3 mmol/L Normal 3.4-5.0 [facility] Comment on above: Performed By: #### L IPA, CMP, SHAI #### [facility] [address] [place] [address] Ruy Ayleen Protein [Mass/Vol] 7.6 g/dL Normal 6.1-8.2 [facility] Comment on above: Performed By: #### L IPA, CMP, SHAI #### [facility] [address] [place] [address] Ruy Ayleen Sodium [Moles/Vol] 141 mmol/L Normal 137-145 [facility] Comment on above: Performed By: #### L IPA, CMP, SHAI #### [facility] [address] [place] [address] Ruy Ayleen Urea nitrogen [Mass/Vol] 9.0 mg/dL Normal 7.0-17.0 [facility] Comment on above: Performed By: #### L KARLI WEST, SHAI #### [facility] [address] [place] [address] Ruy Abbasi Urea nitrogen/Creatinine [Mass ratio] 12.2 mg/mg Normal [facility] Comment on above: Performed By: #### L IPA, CMP, SHAI #### [facility] [address] [place] [address] Ruy Abbasi MR-MR abdomen wo/w con IMPOR Ton 02-16-2021 MR-MR abdomen wo/w con IMPORT Images were obtained outside of [facility] [id number] Normal [facility] CT-CT abdomen pelvis w con I MPORTon 02-15-2021 CT-CT abdomen pelvis w con IMPORT Images were obtained outside of [facility] [id number] Normal [facility] CT-CT abdomen pelvis wo con IMPORTon 02-08-2021 CT-CT abdomen pelvis wo con IMPORT Images were obtained outside of [facility] [id number] Normal [facility] US-US gall bladder IMPORTon 02-08-2021 US-US gall bladder IMPORT Images were obtained outside of [facility] [id number] Normal [facility] CNOVon 12-28-2020 CNOV Office Visit (LOORRM ) -------- DARLING KHANNA ([id number]) 1980 F Date Time Provider Department 12/28/20 3:30 PM CAST FILIPPO MARCANO During your visit today, we recorded the following information about you: Tracey Hair Ma 12/28/2020 4:25 PM Signed Dispensed XL/XXL Reaction brace for the Right knee. Dispensed by [employer]. Instructions were given on application/adjustments. She will f/u as scheduled/prn. Tracey Hair MA,RICARDO Referring Provider: ISHAN YUSUF [[id number]] Allergies As of Date: 12/28/2020 Noted Allergy [...] Status:Closed by TRACEY HAIR MA on 12/28/20 [facility] CNOV Office Visit (LOORRM ) -------- DARLING KHANNA ([id number]) 1980 F Date Time Provider Department 12/28/20 3:15 PM ISHAN YUSUFORRM During your visit today, we recorded the [...] was performed today. CLINICAL IMPRESSION / ASSESSMENT: (K02.502W) Closed nondisplaced fracture of proximal phalanx of [...] little finger with routine healing, subsequent encounter [E35.831Z] Other Visit Diagnosis:Patellofemoral arthralgia of right knee [...] Encounter Status:Closed by ISHAN YUSUF on 12/28/20 [facility] [place] CNOVon 11-30-2020 CNOV Office Visit (LOORRM ) -------- DARLING KHANNA ([id number]) 1980 F Date Time Provider Department 11/30/20 [...] results and radiologist's interpretation, available in the [facility] health record. Images were reviewed with the patient/family members in the office today. My personal interpretation of the performed imaging is healing proximal phalanx fracture CLINICAL IMPRESSION / ASSESSMENT: (E01.114U) Closed nondisplaced fracture of proximal phalanx of [...] little finger with routine healing, subsequent encounter [S57.552S] Order(s):XR HAND GENERAL 3V PA/LAT/OBL LT [[id number]] Order #: [id number] FUTURE CONSULT TO TRAFFIC CONTROLLER CABLE [[id number]] Order #: [id number]: 1 FUTURE Prescriptions as of 11/30/2020 Sig: [...] Status:Closed by ISHAN YUSUF on 11/30/20 Normal [facility] XR HAND 3V PA/LAT/OBL LTon 0 [...] fractures. IMPRESSION: Healing 5th proximal phalanx fracture Mortgage Banker: WILBERT Transcribe Date/Time: Nov 30 2020 4:18P Dictated by : JUDITH FUENTES MD This examination was interpreted and the report reviewed and electronically signed by: JUDITH FUENTES MD on Nov 30 2020 4:19PM EST [id number] Normal [facility] XR Hand - left PA and Latera l and Obliqueon 11-30-2020 IMPRESSION: Healing 5th proximal phalanx fracture Mortgage Banker: WILBERT Transcribe Date/Time: Nov 30 2020 4:18P [...] No additional fractures. DIVISION OF RADIOLOGY Provider, Bonilla Bear - 11/30/2020 * * *Final Report* [...] IMPRESSION IMPRESSION: Healing 5th proximal phalanx fracture Mortgage Banker: PSCB Transcribe Date/Time: Nov 30 2020 4:18P Dictated by : JUDITH FUENTES MD This examination was interpreted and the report reviewed and electronically signed by: JUDITH FUENTES MD on Nov 30 2020 4:19PM EST [facility] Radiology Study observation (narrative) [facility] XR Hand - left PA and Latera l and ObliqueOrdered By: Ccf Provider on 11-30-2020 [facility] CNOVon 11-18-2020 CNOV Office Visit (LOORRM ) -------- DARLING KHANNA ([id number]) 1980 F Date Time Provider Department 11/18/20 3:45 PM ISHAN YUSUF LOORRSilva During your visit [...] results and radiologist's interpretation, available in the [facility] health record. Images were reviewed with the patient/family members in the office today. My personal interpretation of the performed imaging is intra-articular proximal phalanx fracture CLINICAL IMPRESSION / ASSESSMENT: (H14.441I) Closed nondisplaced fracture of proximal phalanx of [...] phalanx of left little finger, initial encounter [Z03.200B] Order(s):XR HAND GENERAL 3V PA/LAT/OBL LT [[id number]] Order #: [id number] FUTURE Prescriptions as of 11/18/2020 Sig: OMEPRAZOLE [...] Status:Closed by ISHAN YUSUF on 11/18/20 Normal [facility] XR HAND 3V PA/LAT/OBL LTon 0 [...] unchanged. IMPRESSION: Healing fifth proximal phalanx fracture. Mortgage Banker: WILBERT Transcribe Date/Time: Nov 18 2020 8:15P Dictated by : ADRIANE CAMPOS MD This examination was interpreted and the report reviewed and electronically signed by: ADRIANE CAMPOS MD on Nov 18 2020 8:27PM EST [id number] Normal [facility] XR Hand - left PA and Latera l and Obliqueon 11-18-2020 IMPRESSION: Healing fifth proximal phalanx fracture. Mortgage Banker: WILBERT Transcribe Date/Time: Nov 18 2020 8:15P Dictated by : ADRIANE CAMPOS MD This examination was interpreted and the report reviewed and electronically signed by: ADRIANE CAMPOS MD on Nov 18 2020 8:27PM [facility] DIVISION OF RADIOLOGY * * [...] IMPRESSION IMPRESSION: Healing fifth proximal phalanx fracture. Mortgage Banker: PSCB Transcribe Date/Time: Nov 18 2020 8:15P Dictated by : ADRIANE CAMPOS MD This examination was interpreted and the report reviewed and electronically signed by: ADRIANE CAMPOS MD on Nov 18 2020 8:27PM EST [facility] Radiology Study observation (narrative) [facility] XR Hand - left PA and Latera l and ObliqueOrdered By: Ccf Provider on 11-18-2020 [facility] CNOVon 11-04-2020 CNOV Office Visit (ORAVON ) -------- DARLING KHANNA ([id number]) 1980 F Date Time Provider Department 11/04/20 2:00 PM BOB MILLAN During your visit today, we recorded the following information about you: Bob Millan DO 11/04/2020 2:12 PM Signed [facility] Office Visit Documentation Note [facility] Sports Medicine Orthopaedic and Rheumatologic [place] REASON FOR VISIT / CHIEF COMPLAINT SERVICE [...] results and radiologist's interpretation, available in the [facility] health record. Images were reviewed with the patient/family members in the office today. My personal interpretation of the performed imaging is Has IA prox phalanx fracture at PIP ASSESSMENT / PLAN CLINICAL IMPRESSION / ASSESSMENT: (Y96.186N) Closed nondisplaced fracture of proximal phalanx of [...] plan as detailed above. Bob Millan D.O. [facility] Orthopaedic and Rheumatologic [place] Team Physician, [facility] Consulting Physician, [place] Sawyer Landeros, Billing Analyst [phone] Patient verbalizes understanding and agrees with the treatment plan as detailed above. Referring Provider: SELF [[id number]] Allergies As of Date: 11/04/2020 Noted Allergy Reaction INDOMETHACIN 05/10/2018 7 - Swelling Date Reviewed: 11/04/2020 Reviewed by: Juaquin Farmer - Fully Assessed Reason for Visit: New [[id number]] Primary Visit Diagnosis:Closed nondisplaced fracture of proximal [...] for Dr. Yusuf or Shayla Silva in [place]. Follow-up and Disposition History Recorded Encounter Status:Closed by BOB MILLAN DO on 11/04/20 Normal [facility] DX-XR HAND COMPLETE LEFT IMP Shelbie 10-30-2020 DX-XR HAND COMPLETE LEFT IMPORT Images were obtained outside of [facility] [id number] Normal [facility] Vital Signs Date Time Vital Sign Value Performing Clinician Facility 12-08-2024 12:48-0400 Body height 182.88 cm Peter Ahumada DO Work Phone: [facility] 12-08-2024 12:48-0400 Body mass index (BMI) [Ratio] 27.3 kg/m2 Peterluiza Ahumada DO Work Phone: [facility] 12-08-2024 12:48-0400 Body weight 91.62 kg Peterluiza Ahumada DO Work Phone: [facility] 12-08-2024 12:48-0400 Diastolic blood pressure 74 mm[Hg] Peterluiza Ahumada DO Work Phone: [facility] 12-08-2024 12:48-0400 Heart rate 76 /min Peterluiza Ahumada DO Work Phone: [facility] 12-08-2024 12:48-0400 Respiratory rate 18 /min Peterluiza Ahumada DO Work Phone: [facility] 12-08-2024 12:48-0400 SaO2% (BldA) [Mass fraction] 96 % Peterluiza Ahumada DO Work Phone: [facility] 12-08-2024 12:48-0400 Systolic blood pressure 118 mm[Hg] Peter Ahumada DO Work Phone: [facility] 09-10-2024 15:25-0500 Body height 182.9 cm Alber Itzkowitz DO Work Phone: [facility] 09-10-2024 15:25-0500 Body mass index (BMI) [Ratio] 27.8 kg/m2 Alber Itzkowitz DO Work Phone: [facility] 09-10-2024 15:25-0500 Body weight 92.99 kg Alber Itzkowitz DO Work Phone: [facility] 09-10-2024 15:25-0500 Diastolic blood pressure 70 mm[Hg] Alber Itzkowitz DO Work Phone: [facility] 09-10-2024 15:25-0500 Systolic blood pressure 120 mm[Hg] Alber Itzkowitz DO Work Phone: [facility] 09-09-2024 14:37-0500 Body height 182.88 cm Peter Ahumada DO Work Phone: [facility] 09-09-2024 14:37-0500 Body mass index (BMI) [Ratio] 27.9 kg/m2 Peter Ahumada DO Work Phone: [facility] 09-09-2024 14:37-0500 Body weight 93.44 kg Peter Ahumada DO Work Phone: [facility] 09-09-2024 14:37-0500 Diastolic blood pressure 70 mm[Hg] Peter Ahumada DO Work Phone: [facility] 09-09-2024 14:37-0500 Heart rate 74 /min Peter Ahumada DO Work Phone: [facility] 09-09-2024 14:37-0500 SaO2% (BldA) [Mass fraction] 95 % Peterluiza Shens DO Work Phone: [facility] 09-09-2024 14:37-0500 Systolic blood pressure 126 mm[Hg] Peter Shens DO Work Phone: [facility] 06-10-2024 15:00-0500 Body height 182.88 cm Peterluiza Shens DO Work Phone: [facility] 06-10-2024 15:00-0500 Body mass index (BMI) [Ratio] 32.3 kg/m2 Peterluiza Shens DO Work Phone: [facility] 06-10-2024 15:00-0500 Body weight 107.95 kg Peter Shens DO Work Phone: [facility] 06-10-2024 15:00-0500 Diastolic blood pressure 60 mm[Hg] Peter Acs DO Work Phone: [facility] 06-10-2024 15:00-0500 Heart rate 75 /min Peter Shens DO Work Phone: [facility] 06-10-2024 15:00-0500 Respiratory rate 16 /min Peter Shens DO Work Phone: [facility] 06-10-2024 15:00-0500 SaO2% (BldA) [Mass fraction] 96 % Peter Shens DO Work Phone: [facility] 06-10-2024 15:00-0500 Systolic blood pressure 98 mm[Hg] Peter Shens DO Work Phone: [facility] 03-06-2024 14:27-0400 Body height 182.88 cm DO Peter Kuns Work Phone: [facility] 03-06-2024 14:27-0400 Body mass index (BMI) [Ratio] 36.4 kg/m2 DO Peter Acs Work Phone: [facility] 03-06-2024 14:27-0400 Body weight 122.01 kg DO Peter Kuns Work Phone: [facility] 03-06-2024 14:27-0400 Diastolic blood pressure 72 mm[Hg] DO Peter Kuns Work Phone: [facility] 03-06-2024 14:27-0400 Heart rate 77 /min DO Peter Kuns Work Phone: [facility] 03-06-2024 14:27-0400 Respiratory rate 16 /min DO Peter Kuns Work Phone: [facility] 03-06-2024 14:27-0400 SaO2% (BldA) [Mass fraction] 96 % DO Peter Kuns Work Phone: [facility] 03-06-2024 14:27-0400 Systolic blood pressure 118 mm[Hg] DO Peter Kuns Work Phone: [facility] 01-29-2024 14:05-0400 Diastolic blood pressure 78 mm[Hg] DO Peter Kuns Work Phone: [facility] 01-29-2024 14:05-0400 Heart rate 91 /min DO Peter Kuns Work Phone: [facility] 01-29-2024 14:05-0400 Respiratory rate 16 /min DO Peter Kuns Work Phone: [facility] 01-29-2024 14:05-0400 SaO2% (BldA) [Mass fraction] 94 % DO Peter Kuns Work Phone: [facility] 01-29-2024 14:05-0400 Systolic blood pressure 124 mm[Hg] DO Peter Kuns Work Phone: [facility] 01-29-2024 13:05-0400 Body temperature 97 [degF] DO Peter Kuns Work Phone: [facility] 01-29-2024 12:42-0400 Inhaled oxygen flow rate 8 L/min DO Peter Shens Work Phone: [facility] 01-29-2024 11:44-0400 Body height 182.88 cm DO Peter Shens Work Phone: [facility] 01-29-2024 11:44-0400 Body mass index (BMI) [Ratio] 36.5 kg/m2 DO Pteerluiza Shens Work Phone: [facility] 01-29-2024 11:44-0400 Body weight 122.2 kg DO Peter Ahumada Work Phone: [facility] 12-31-2023 07:25-0400 Body height 2194.56 cm DO Peter Shens Work Phone: [facility] 12-31-2023 07:25-0400 Body mass index (BMI) [Ratio] 0.2 kg/m2 DO Peter Ahumada Work Phone: [facility] 12-31-2023 07:25-0400 Body weight 122.46 kg DO Peter Ahumada Work Phone: [facility] 12-31-2023 07:25-0400 Diastolic blood pressure 80 mm[Hg] DO Peter Shens Work Phone: [facility] 12-31-2023 07:25-0400 Heart rate 65 /min DO Peter Shens Work Phone: [facility] 12-31-2023 07:25-0400 Respiratory rate 16 /min DO Peter Shens Work Phone: [facility] 12-31-2023 07:25-0400 SaO2% (BldA) [Mass fraction] 97 % DO Peterluiza Shens Work Phone: [facility] 12-31-2023 07:25-0400 Systolic blood pressure 118 mm[Hg] DO Peter Acs Work Phone: [facility] 12-27-2023 14:20-0400 Body height 182.88 cm DO Peter Kuns Work Phone: [facility] 12-27-2023 14:20-0400 Body mass index (BMI) [Ratio] 37.3 kg/m2 DO Peter Kuns Work Phone: [facility] 12-27-2023 14:20-0400 Body weight 124.73 kg DO Peter Kuns Work Phone: [facility] 12-27-2023 14:20-0400 Diastolic blood pressure 70 mm[Hg] DO Peter Kuns Work Phone: [facility] 12-27-2023 14:20-0400 Heart rate 86 /min DO Peter Kuns Work Phone: [facility] 12-27-2023 14:20-0400 Respiratory rate 16 /min DO Peter Kuns Work Phone: [facility] 12-27-2023 14:20-0400 SaO2% (BldA) [Mass fraction] 96 % DO Peter Kuns Work Phone: [facility] 12-27-2023 14:20-0400 Systolic blood pressure 116 mm[Hg] DO Peter Kuns Work Phone: [facility] 12-17-2023 07:31-0400 Body height 182.88 cm DO Peter Kuns Work Phone: [facility] 12-17-2023 07:31-0400 Body temperature 97.7 [degF] DO Peter Kuns Work Phone: [facility] 12-17-2023 07:31-0400 Body weight 123.9 kg DO Peter Kuns Work Phone: [facility] 12-17-2023 07:31-0400 Diastolic blood pressure 90 mm[Hg] DO Peter Kuns Work Phone: [facility] 12-17-2023 07:31-0400 Heart rate 88 /min DO Peter Ahumada Work Phone: [facility] 12-17-2023 07:31-0400 Respiratory rate 20 /min DO Peter Ahumada Work Phone: [facility] 12-17-2023 07:31-0400 SaO2% (BldA) [Mass fraction] 97 % DO Peter Ahumada Work Phone: [facility] 12-17-2023 07:31-0400 Systolic blood pressure 143 mm[Hg] DO Peter Shens Work Phone: [facility] 06-08-2023 10:30-0500 Body height 182.88 cm Peter Shenshira Other [employer] Other 06-08-2023 10:30-0500 Body mass index (BMI) [Ratio] 34.91 kg/m2 Peter Shenshira Other [employer] Other 06-08-2023 10:30-0500 Body weight 116.76 kg Peter Ahumada Other [employer] Other 06-08-2023 10:30-0500 Diastolic blood pressure 82 mm[Hg] Peter Ahumada Other [employer] Other 06-08-2023 10:30-0500 Respiratory rate 16 /min Peterluiza Shenshira Other [employer] Other 06-08-2023 10:30-0500 SaO2% (BldA) [Mass fraction] 98 % Peter Ahumada Other [employer] Other 06-08-2023 10:30-0500 Systolic blood pressure 126 mm[Hg] Peter Ahumada Other [employer] Other 05-24-2023 15:00-0400 Body height 182.88 cm Peter Ahumada Other [employer] Other 05-24-2023 15:00-0400 Body mass index (BMI) [Ratio] 35.12 kg/m2 Peter Ahumada Other [employer] Other 05-24-2023 15:00-0400 Body weight 117.48 kg Peter Ahumada Other [employer] Other 05-24-2023 15:00-0400 Diastolic blood pressure 86 mm[Hg] Peter Ahumada Other [employer] Other 05-24-2023 15:00-0400 Respiratory rate 16 /min Peter Ahumada Other [employer] Other 05-24-2023 15:00-0400 SaO2% (BldA) [Mass fraction] 95 % Peterluiza Ahumada Other [employer] Other 05-24-2023 15:00-0400 Systolic blood pressure 130 mm[Hg] Peter Ahumada Other [employer] Other 03-21-2023 08:30-0400 Body height 182.88 cm Peter Ahumada Other [employer] Other 03-21-2023 08:30-0400 Body mass index (BMI) [Ratio] 34.39 kg/m2 Peter Ahumada Other [employer] Other 03-21-2023 08:30-0400 Body weight 115.03 kg Peter Ahumada Other [employer] Other 03-21-2023 08:30-0400 Diastolic blood pressure 70 mm[Hg] Peter Ahumada Other [employer] Other 03-21-2023 08:30-0400 Respiratory rate 16 /min Peter Ahumada Other [employer] Other 03-21-2023 08:30-0400 SaO2% (BldA) [Mass fraction] 95 % Peter Ahumada Other [employer] Other 03-21-2023 08:30-0400 Systolic blood pressure 124 mm[Hg] Peter Ahumada Other [email or web address] Other 11-01-2022 13:49-0400 Diastolic blood pressure 90 mm[Hg] DO Peter Shens Work Phone: [facility] 11-01-2022 13:49-0400 Systolic blood pressure 153 mm[Hg] DO Peter Kuns Work Phone: [facility] 11-01-2022 13:02-0400 Body temperature 97.6 [degF] DO Peter Acs Work Phone: [facility] 11-01-2022 13:02-0400 Heart rate 72 /min DO Peter Kuns Work Phone: [facility] 11-01-2022 13:02-0400 Respiratory rate 18 /min DO Peter Kuns Work Phone: [facility] 11-01-2022 13:02-0400 SaO2% (BldA) [Mass fraction] 96 % DO Peter Kuns Work Phone: [facility] 04-12-2023 08:58-0400 Body height 182.88 cm DO Peter Ahumada Work Phone: [facility] 11-01-2022 08:58-0400 Body weight 117.93 kg DO Peter Ahumada Work Phone: [facility] 05-25-2022 17:00-0400 Body height 182.88 cm Peter Ahumada Other [email or web address] Other 05-25-2022 17:00-0400 Body mass index (BMI) [Ratio] 33.63 kg/m2 Peter Ahumada Other [employer] Other 05-25-2022 17:00-0400 Body weight 112.49 kg Peter Ahumada Other [employer] Other 05-25-2022 17:00-0400 Diastolic blood pressure 74 mm[Hg] Peter Blake Other [employer] Other 05-25-2022 17:00-0400 Respiratory rate 16 /min Peter Blake Other [employer] Other 05-25-2022 17:00-0400 SaO2% (BldA) [Mass fraction] Peter Ahumada Other [employer] Other 05-25-2022 17:00-0400 Systolic blood pressure 118 mm[Hg] Peter Blake Other [employer] Other 04-24-2022 09:15-0400 Body height 182.88 cm Peter Ahumada Other [employer] Other 04-24-2022 09:15-0400 Body mass index (BMI) [Ratio] 33.5 kg/m2 Peter Ahumada Other [employer] Other 04-24-2022 09:15-0400 Body weight 112.04 kg Peter Ahumada Other [employer] Other 04-24-2022 09:15-0400 Diastolic blood pressure 78 mm[Hg] Peter Blake Other [employer] Other 04-24-2022 09:15-0400 Respiratory rate 18 /min Peter Blake Other [employer] Other 04-24-2022 09:15-0400 SaO2% (BldA) [Mass fraction] 96 % Peter Ahumada Other [employer] Other 04-24-2022 09:15-0400 Systolic blood pressure 124 mm[Hg] Peter Blake Other [employer] Other 11-02-2021 12:00-0400 Body height 182.88 cm Peter Shenshira Other [employer] Other 11-02-2021 12:00-0400 Body mass index (BMI) [Ratio] 34.44 kg/m2 Peter Blake Other [employer] Other 11-02-2021 12:00-0400 Body weight 115.21 kg Peter Blake Other [employer] Other 11-02-2021 12:00-0400 Diastolic blood pressure 66 mm[Hg] Peter Ahumada Other [employer] Other 11-02-2021 12:00-0400 Respiratory rate 16 /min Peter Ahumada Other [employer] Other 11-02-2021 12:00-0400 SaO2% (BldA) [Mass fraction] 97 % Peter Acshira Other [employer] Other 11-02-2021 12:00-0400 Systolic blood pressure 124 mm[Hg] Peter Ahumada Other [employer] Other 10-17-2021 09:15-0400 Body height 182.88 cm Peter Ahumada Other [employer] Other 10-17-2021 09:15-0400 Body mass index (BMI) [Ratio] 34.2 kg/m2 Peter Ahumada Other [employer] Other 10-17-2021 09:15-0400 Body weight 114.4 kg Peter Ahumada Other [employer] Other 10-17-2021 09:15-0400 Diastolic blood pressure 76 mm[Hg] Peter Ahumada Other [employer] Other 10-17-2021 09:15-0400 Respiratory rate 18 /min Peter Ahumada Other [employer] Other 10-17-2021 09:15-0400 SaO2% (BldA) [Mass fraction] 98 % Peter Ahumada Other [employer] Other 10-17-2021 09:15-0400 Systolic blood pressure 118 mm[Hg] Peter Ahumada Other [employer] Other 10-13-2021 13:28-0400 Body height 182.9 cm Kate Daniel MD Work Phone: [facility] 10-13-2021 13:28-0400 Body temperature 97.7 [degF] Kate Daniel MD Work Phone: [facility] 10-13-2021 13:28-0400 Body weight 115.21 kg Kate Daniel MD Work Phone: [facility] 10-13-2021 13:28-0400 Diastolic blood pressure 55 mm[Hg] Kate Daniel MD Work Phone: [facility] 10-13-2021 13:28-0400 Heart rate 68 /min Kate Daniel MD Work Phone: [facility] 10-13-2021 13:28-0400 SaO2% (BldA) [Mass fraction] 97 % Kate Daniel MD Work Phone: [facility] 10-13-2021 13:28-0400 Systolic blood pressure 112 mm[Hg] Kate Daniel MD Work Phone: [facility] 04-20-2021 08:45-0400 Body height 182.88 cm Peter Ahumada Other [employer] Other 04-20-2021 08:45-0400 Body mass index (BMI) [Ratio] 31.87 kg/m2 Peter Ahumada Other [employer] Other 04-20-2021 08:45-0400 Body weight 106.6 kg Peter Ahumada Other [employer] Other 04-20-2021 08:45-0400 Diastolic blood pressure 74 mm[Hg] Peter Ahumada Other [employer] Other 04-20-2021 08:45-0400 Respiratory rate 18 /min Peter Ahumada Other [employer] Other 04-20-2021 08:45-0400 SaO2% (BldA) [Mass fraction] 96 % Peter Ahumada Other [employer] Other 04-20-2021 08:45-0400 Systolic blood pressure 110 mm[Hg] Peter Ahumada Other [employer] Other Encounters Encounter Date Encounter Type Care Provider Facility Start: 01-27-2025 End: 01-27-2025 Patient encounter procedure [facility] Liz [facility] Work Phone: Start: 01-27-2025 End: 01-27-2025 ambulatory Peter Ahumada DO Work Phone: [facility] Work Phone: Start: 01-26-2025 End: 01-26-2025 ambulatory Christos Manrique MD Facility:[facility] Start: 12-08-2024 End: 12-08-2024 Patient encounter procedure Peter Liz DO -[facility] [place] Work Phone: Start: 12-08-2024 End: 12-08-2024 ambulatory Christos Manrique MD Facility:[facility] Start: 12-05-2024 End: 12-05-2024 Patient encounter procedure Peter Liz DO -[facility] Work Phone: Start: 12-05-2024 End: 12-05-2024 ambulatory Peter Ahumada Facility:[facility] Start: 10-13-2024 End: 10-13-2024 Postop follow up visit related to original px Alber Haines DO Work Phone: [facility] Comment on above: Sebaceous cyst (Prim arvin Dx) Start: 10-13-2024 End: 10-13-2024 ambulatory ALBER HAINES Not Available Start: 09-29-2024 End: 09-29-2024 ambulatory Peter Ahumada DO Work Phone: [facility] Work Phone: Start: 09-29-2024 End: 09-29-2024 Departed Referred Peter Ahumada DO Work Phone: [facility] [place] Work Phone: Start: 09-22-2024 End: 09-22-2024 ambulatory Christos Manrique MD Facility:[facility] Start: 09-10-2024 End: 09-10-2024 Office outpatient visit 15 minutes Alber H Yancy DO Work Phone: [facility] Comment on above: Sebaceous cyst (Prim arvin Dx) Start: 09-10-2024 End: 09-10-2024 ambulatory ALBER H ITZKOWITZ Not Available Start: 09-09-2024 End: 09-09-2024 ambulatory Peter Ahumada DO Work Phone: [facility] Work Phone: Start: 09-09-2024 End: 09-09-2024 Patient encounter procedure Peter Ahumada DO Work Phone: [facility] [place] Work Phone: Start: 09-01-2024 End: 09-01-2024 ambulatory hCristos Manrique MD Facility:[facility] Start: 07-17-2024 End: 07-17-2024 ambulatory Robert Martinez Facility:[facility] Start: 07-17-2024 End: 07-17-2024 Discharged Recurring Peter Ahumada DO Work Phone: [facility]-Physical [facility] [place] Work Phone: Start: 06-23-2024 End: 06-23-2024 ambulatory Christos Manrique MD Facility:[facility] Start: 06-10-2024 End: 06-10-2024 ambulatory Peter Ahumada DO Work Phone: [facility] Work Phone: Start: 06-10-2024 End: 06-10-2024 Patient encounter procedure Peter Ahumada DO Work Phone: [facility] [place] Work Phone: Start: 06-04-2024 End: 06-04-2024 Patient encounter procedure Peter Ahumada DO Work Phone: [facility] [place] Work Phone: Start: 06-04-2024 End: 06-04-2024 ambulatory Peter Ahumada DO Work Phone: [facility] Work Phone: Start: 05-22-2024 End: 05-22-2024 Patient encounter procedure Rahul Castillo DO Work Phone: [facility] Comment on above: Lumbosacral radiculo yaritza (Primary Dx) Start: 05-22-2024 End: 05-22-2024 ambulatory RAHUL CASTILLO Not Available Start: 05-22-2024 End: 05-22-2024 Bamboo flowsheet Rahul Castillo DO Work Phone: [facility] Start: 05-22-2024 End: 05-22-2024 Bamboo flowsheet Rahul Castillo DO Work Phone: [facility] Start: 05-19-2024 End: 05-19-2024 ambulatory DO Peter Ahumada Work Phone: [facility] Work Phone: Start: 05-19-2024 End: 05-19-2024 Discharged Recurring DO Peter Ahumada Work Phone: [facility] [place] Work Phone: Start: 03-12-2024 End: 03-12-2024 Patient encounter procedure DO Peter Ahumada Work Phone: [facility] [place] Work Phone: Start: 03-12-2024 End: 03-12-2024 ambulatory DO Peter Ahumada Work Phone: [facility] Work Phone: Start: 03-06-2024 End: 03-06-2024 ambulatory DO Peter Ahumada Work Phone: [facility] Work Phone: Start: 03-06-2024 End: 03-06-2024 Patient encounter procedure DO Peter Ahumada Work Phone: [facility] [place] Work Phone: Start: 03-05-2024 End: 03-05-2024 Patient encounter procedure DO Peter Ahumada Work Phone: [facility] [place] Work Phone: Start: 03-05-2024 End: 03-05-2024 ambulatory DO Peter Ahumada Work Phone: [facility] Work Phone: Start: 02-28-2024 End: 02-28-2024 ambulatory ALBER HAINES Not Available Start: 02-13-2024 End: 02-13-2024 ambulatory DO Peter Ahumada Work Phone: [facility] Work Phone: Start: 02-13-2024 End: 02-13-2024 Patient encounter procedure DO Peterluiza Ahumada Work Phone: [facility] Work Phone: Start: 02-13-2024 End: 02-13-2024 Patient encounter procedure DO Peterluiza Ahumada Work Phone: [facility] Start: 02-13-2024 End: 02-13-2024 ambulatory DO Peter Ahumada Work Phone: [facility] Work Phone: Start: 02-07-2024 End: 02-07-2024 ambulatory ALBER HAINES Not Available Start: 01-29-2024 End: 01-29-2024 Admission to same day surgery center DO Peter Ahumada Work Phone: [facility] [place] Start: 01-29-2024 End: 01-29-2024 ambulatory DO Peter Ahumada Work Phone: [facility] Work Phone: Start: 01-15-2024 End: 01-15-2024 ambulatory DO Peter Ahumada Work Phone: [facility] Work Phone: Start: 01-15-2024 End: 01-15-2024 Departed Referred DO Peter Ahumada Work Phone: [facility]-Pre-Surgical Testing Work Phone: Start: 01-15-2024 End: 01-15-2024 Patient encounter procedure DO Peter Ahumada Work Phone: [facility]-Pre-Surgical Testing Work Phone: Start: 01-14-2024 End: 01-14-2024 ambulatory DO Peter Ahumada Work Phone: [facility] Work Phone: Start: 01-14-2024 End: 01-14-2024 Patient encounter procedure DO Peter Ahumada Work Phone: [facility] Work Phone: Start: 01-14-2024 End: 01-14-2024 ambulatory DO Peter Ahumada Work Phone: [facility] Work Phone: Start: 01-14-2024 End: 01-14-2024 Patient encounter procedure DO Peter Ahumada Work Phone: [facility] Start: 01-03-2024 End: 01-03-2024 ambulatory ALBER HAINES Not Available Start: 12-31-2023 End: 12-31-2023 ambulatory DO Peter Blake Work Phone: [facility] Work Phone: Start: 12-31-2023 End: 12-31-2023 Patient encounter procedure DO Peter Ahumada Work Phone: [facility] Work Phone: Start: 12-31-2023 End: 12-31-2023 ambulatory DO Peter Blake Work Phone: [facility] Work Phone: Start: 12-31-2023 End: 12-31-2023 Patient encounter procedure DO Peter Blake Work Phone: [facility] [place] Work Phone: Start: 12-31-2023 End: 12-31-2023 ambulatory DO Peter Ahumada Work Phone: [facility] Work Phone: Start: 12-31-2023 End: 12-31-2023 Patient encounter procedure DO Peter Acshira Work Phone: [facility] [place] Work Phone: Start: 12-28-2023 End: 12-28-2023 ambulatory DO Peter Acshira Work Phone: [facility] Work Phone: Start: 12-28-2023 End: 12-28-2023 Patient encounter procedure DO Peter Ahumada Work Phone: [facility] [place] Work Phone: Start: 12-27-2023 End: 12-27-2023 ambulatory DO Peter Ahumada Work Phone: [facility] Work Phone: Start: 12-27-2023 End: 12-27-2023 Patient encounter procedure DO Peter Ahumada Work Phone: [facility] Work Phone: Start: 12-19-2023 Non-patient / Non-visit DO Terry Ahumada Work Phone: [facility] Work Phone: Start: 12-17-2023 End: 12-17-2023 Emergency department patient visit DO Peter Ahumada Work Phone: [facility]-Emergency Room Work Phone: Start: 12-12-2023 End: 12-12-2023 ambulatory ALBER Judd YANCY Not Available Start: 12-03-2023 End: 12-03-2023 ambulatory DO Peter Ahumada Work Phone: [facility] Work Phone: Start: 12-03-2023 End: 12-03-2023 Patient encounter procedure DO Peter Ahumada Work Phone: [facility] Work Phone: Start: 08-27-2023 End: 08-27-2023 ambulatory Peter Ahumada Other [employer] Other Start: 08-27-2023 Telephone encounter Peter Ahumada [facility] Start: 08-22-2023 End: 08-22-2023 ambulatory DO Peterluiza Ahumada Work Phone: [facility] Work Phone: Start: 08-22-2023 End: 08-22-2023 Patient encounter procedure DO Peter Ahumada Work Phone: [facility] [place] Work Phone: Start: 08-20-2023 End: 08-20-2023 ambulatory Peter Ahumada Other [employer] Other Start: 08-20-2023 Telephone encounter Peter Ahumada [facility] [place] Start: 08-13-2023 Telephone encounter Peter Acshira [facility] [place] Start: 08-13-2023 End: 08-13-2023 ambulatory DO Peter Blake Work Phone: [employer] Other Start: 08-13-2023 End: 08-13-2023 Patient encounter procedure DO Peter Ahumada Work Phone: [facility] Work Phone: Start: 08-06-2023 End: 08-06-2023 ambulatory Peter Ahumada Other [employer] Other Start: 08-06-2023 Telephone encounter Peter Ahumada [facility] [place] Start: 06-11-2023 End: 06-11-2023 ambulatory Peter Ahumada Other [employer] Other Start: 06-11-2023 Telephone encounter Peter Blake [facility] [place] Start: 06-08-2023 Office outpatient vi sit 25 minutes Peter Ahumada [facility] [place] Start: 06-08-2023 End: 06-08-2023 ambulatory DO Peterluiza Ahumada Work Phone: [facility] Work Phone: Start: 06-08-2023 End: 06-08-2023 Patient encounter procedure DO Peter Ahumada Work Phone: [facility] [place] Work Phone: Start: 06-08-2023 End: 06-08-2023 Patient encounter procedure DO Peter Ahumada Work Phone: [facility] Physician [facility] [place] Work Phone: Start: 05-25-2023 End: 05-25-2023 Patient encounter procedure DO Peter Ahumada Work Phone: [facility] Work Phone: Start: 05-24-2023 End: 05-24-2023 ambulatory Peter Ahumada Other [employer] Other Start: 05-24-2023 Office outpatient vi sit 25 minutes Peter Ahumada [facility] [place] Start: 05-24-2023 End: 05-24-2023 Patient encounter procedure DO Peter Ahumada Work Phone: [facility] Physician [facility] [place] Work Phone: Start: 03-21-2023 End: 03-21-2023 ambulatory Peter Ahumada Other [employer] Other Start: 03-21-2023 Office outpatient vi sit 15 minutes Peter Ahumada [facility] [place] Start: 03-19-2023 End: 03-19-2023 ambulatory DO Peter Ahumada Work Phone: [facility] Work Phone: Start: 03-19-2023 End: 03-19-2023 Patient encounter procedure DO Peter Ahumada Work Phone: [facility] [place] Work Phone: Start: 01-15-2023 End: 01-15-2023 ambulatory DO Peter Ahumada Work Phone: [facility] Work Phone: Start: 01-15-2023 End: 01-15-2023 Patient encounter procedure DO Peter Ahumada Work Phone: [facility] Start: 01-12-2023 End: 01-12-2023 ambulatory Peter Ahumada Other [employer] Other Start: 01-12-2023 Telephone encounter Peter Ahumada [facility] Start: 11-23-2022 End: 11-23-2022 Patient encounter procedure DO Peter Ahumada Work Phone: [facility] [place] Work Phone: Start: 11-01-2022 End: 11-01-2022 Emergency department patient visit DO Peter Ahumada Work Phone: [facility] Work Phone: Start: 10-31-2022 End: 10-31-2022 ambulatory DO Peter Ahumada Work Phone: [facility] Work Phone: Start: 10-31-2022 End: 10-31-2022 Patient encounter procedure DO Peterluiza Shenshira Work Phone: [facility] [place] Work Phone: Start: 05-25-2022 End: 05-25-2022 Departed Referred DO Peter Ahumada Work Phone: [facility] [place] Start: 05-25-2022 End: 05-25-2022 ambulatory DO Peter Ahumada Work Phone: [employer] Other Start: 05-25-2022 Office outpatient vi sit 15 minutes Peter Ahumada [facility] Start: 04-24-2022 End: 04-24-2022 ambulatory Peter Ahumada Other [employer] Other Start: 04-24-2022 Office outpatient vi sit 25 minutes Peter Ahumada [facility] Start: 04-19-2022 End: 04-19-2022 ambulatory DO Peter Ahumada Work Phone: [facility] Work Phone: Start: 04-19-2022 End: 04-19-2022 Patient encounter procedure DO Peter Ahumada Work Phone: [facility] [place] Start: 11-15-2021 End: 11-15-2021 ambulatory Peter Ahumada Other [employer] Other Start: 11-15-2021 Telephone encounter Peter Ahumada [facility] Start: 11-02-2021 End: 11-02-2021 ambulatory Peter Ahumada Other [employer] Other Start: 11-02-2021 Office outpatient vi sit 15 minutes Peter Ahumada [facility] Start: 10-17-2021 End: 10-17-2021 ambulatory Peter Ahumada Other [employer] Other Start: 10-17-2021 Office outpatient vi sit 25 minutes Peter Ahumada [facility] Start: 10-13-2021 End: 10-13-2021 Patient encounter procedure Kate Daniel MD Work Phone: General Surgery Comment on above: Liver pain (Primary Dx) Start: 04-20-2021 Office outpatient vi sit 25 minutes Peter Ahumada [facility] Start: 02-22-2021 End: 02-22-[address] PETER AHUMADA Facility:[facility] Start: 11-30-2020 End: 11-30-2020 Subsequent hospital visit by physician Carlos Echols Work Phone: Radiology Comment on above: Closed nondisplaced fracture of proximal phalanx of left little finger, initial encounter [S62.647A] Start: 11-18-2020 End: 04-29-2021 Subsequent hospital visit by physician Carlos Baker 1 Work Phone: Radiology Comment on above: Closed nondisplaced fracture of proximal phalanx of left little finger, initial encounter [M11.142L] Procedures Date Procedure Procedure Detail Performing Clinician Start: 01-27-2025 Screening mammograph y of bilateral breasts Peter Ahumada DO Work Phone: Start: 06-04-2024 XR pre/post mri xray Zaki [...] P,Tdap,Td Vaccine (2 - Td or Tdap) [facility] Start: 05-22-2024 End: 05-22-2024 Patient encounter procedure 05/22/2024 2:30 PM EDT Procedure Visit [facility] [address] [facility] [address] [place] [address] Rahul Castillo DO [address] [place] [address] Arrived [facility] Comment on above: Arrived Start: 03-23-2024 Covid-19 Vaccine ( season) Covid-19 Vaccine ( season) [facility] Start: 03-23-2024 Influenza vaccination Influenz a Vaccine (#1) [facility] Start: 03-05-2024 [facility] Start: 02-13-2024 Plain X-ray of right elbow XR elbow RT 2V [facility] Start: 02-13-2024 XR Elbow - right 2 Views [facility] Start: 01-29-2024 [facility] Start: 01-29-2024 [facility] Start: 01-14-2024 Plain X-ray of right elbow XR elbow RT 2V [facility] Start: 01-14-2024 XR Elbow - right 2 Views [facility] Start: 12-31-2023 Patient referral [facility] Work Phone: Start: 2022 Screening for malign ant neoplasm of breast Mammogram Screening [facility] Start: 03-23-2021 Influenza vaccination INFLUENZA (#1) [facility] Start: 2012 HPV TESTING HPV TESTING [facility] Start: 2003 PAP TESTING PAP TESTING [facility] Start: 2003 Screening for malign ant neoplasm of cervix Cervical Cancer Screening [facility] Start: 2001 Hepatitis B Vaccine (1 of 3 - 19+ 3-dose series) Hepatitis B Vaccine (1 of 3 - 19+ 3-dose series) [facility] Start: 2001 Urine microalbumin profile DTA P,TDAP,TD (1 - Tdap) [facility] Start: 2000 Anxiety Screening Anxiety Screening [facility] Start: 2000 [facility] HEPAT[facility]IS C SCREENING HEPATITIS C [facility] Start: 2000 Hepatitis C screening Hepatitis C [facility] Start: 2000 HIV SCREENING HIV SCREENING [facility] Start: 2000 HIV screening HIV Screening [facility] Start: 1994 Adult depression scr eening assessment DEPRESSION SCREENING [facility] Start: 1987 COVID-19 VACCINE (1) COVID-19 VACCIN E (1) [facility] Comprehensive metabo lic 1999 panel - Serum or Plasma [facility] Comprehensive metabo lic 1999 panel - Serum or Plasma [facility] Comprehensive metabo lic 1999 panel - Serum or Plasma [facility] Glucose measurement estimated from glycated hemoglobin [facility] Patient Education [facility] Work Phone: Patient referral [facility] Work Phone: RF Gastrointestinal tract upper Single view W air contrast PO [facility] US Gallbladder [facility] XR Elbow - right GE 3 Views [facility] Immunizations Immunization Date Immunization Notes Care Provider Fa cility 12-17-2023 tetanus toxoid, reduced diphtheria toxoid, and acellular pertussis vaccine, adsorbed DO Peter Ahumada Work Phone: [facility] 06-07-2022 influenza, injectable, quadrivalent, preservative free Peter Ahumada Other [facility] 04-09-2020 influenza, seasonal, injectable Peter Kuns Other [facility] [employer] Other 03-10-2019 influenza, seasonal, injectable Patient Objection Peter Ahumada Other [facility] [employer] Other 02-18-2018 tetanus toxoid, reduced diphtheria toxoid, and acellular pertussis vaccine, adsorbed Peter Shens Other [facility] NEGATED: Highlighted row has not occurred!06-07-2022 influenza, seasonal, injectable Patient Objection Peter Shens Other [facility] [employer] Other NEGATED: Highlighted row has not occurred!04-09-2020 influenza, seasonal, injectable Peter Kuns Other [facility] [employer] Other NEGATED: Highlighted row has not occurred!03-10-2019 influenza, seasonal, injectable Patient Objection Peter Ahumada Other [employer] Other Payers Date Payer Category Payer Self-pay [id number] 2022 Unknown 2018 Medicaid [facility] [id number] 2018-Present [phone] [address] [place] [address] Medicaid [id number] 2018 Medicaid [facility] [employer] MEDICA[employer] [id number] 2018-2022 [address] [place] [address] Medicaid [id number] 2018 Private Health Insurance [facility] MEDICAID [id number] 2018 Medicaid [id number] 1982 Unknown [id number] 2.16.840.1.732994.3.579.2 .593 1982 Unknown [id number] 2.16.840.1.140474.3.579.2 .1258 1982 Unknown [id number] 2.16.840.1.340281.3.579.2 .1258 1982 Unknown [id number] 2.16.840.1.804266.3.579.2 .1258 1982 Unknown [id number] 2.16.840.1.985003.3.579.2 .1258 1982 Unknown [id number] 2.16.840.1.547939.3.579.2 .1258 1982 Unknown [id number] 2.16.840.1.573624.3.579.2 .1258 1982 Unknown [id number] 2.16.840.1.281131.3.579.2 .1258 1982 Unknown [id number] 2.16840.1.630637.3.579.2 .1982 Unknown [id number] 2.16.840.1.542211.3.579.2 .1982 Unknown [id number] 2.16.840.1.434499.3.579.2 .1982 Unknown [id number] 2.16.840.1.899417.3.579.2 .1982 Unknown [id number] 2.16.840.1.608011.3.579.2 .196 1959 Unknown [id number] Unknown [id number] Unknown [id number] 2.16.840.1.815711.3.579.2 .531 Unknown [id number] 2.16.840.1.009149.3.579.2 .531 Unknown [id number] 2.16.840.1.106494.3.579.2 .531 Unknown [id number] 2.16.840.1.436439.3.579.2 .531 Unknown [id number] 2.16.840.1.210246.3.579.2 .531 Unknown [id number] 2.16.840.1.676402.3.579.2 .531 Unknown [id number] 2.16.840.1.387589.3.579.2 .531 Unknown [id number] 2.840.1.252248.3.579.2 .531 Unknown [id number] 2.16.840.1.686370.3.579.2 .531 Social History Date Type Detail Facility Start: 03-03-2021 End: 09-09-2024 Tobacco smoking status MNIS Ex-smoker [facility] Work Phone: End: 06-22-2006 History of tobacco use Current smoker [facility] Work Phone: Start: 03-03-2021 End: 01-03-2024 Tobacco use and exposure Smokeless tobacco non-user [facility] Work Phone: Start: 10-13-2021 Alcohol intake Current drinker of alcohol (finding) [facility] Start: 03-03-2021 History SDOH Alcohol Comment occ [facility] Start: 03-03-2021 Tobacco Comment Smoked 1 pack a week, quit in 2005, can't remember start date [facility] Start: 1980 Sex Assigned At Not on file [facility] Start: 06-30-2020 End: 09-10-2024 Sex Assigned At [employer] Other Start: 11-25-2015 End: 02-15-2021 Tobacco smoking status MNIS Never smoked tobacco (finding) [facility] Start: 1980 Sex Assigned At Female [facility] Start: 11-25-2015 Alcoholic beverage intake Not Asked [facility] Start: 06-30-2020 End: 09-10-2024 History of Social function [facility] National Score (1-10 0), lower number is lower risk Not on file [facility] Start: 10-19-2020 End: 05-11-2021 Exposure to SARS-CoV-2 (event) Not sure [facility] End: 06-22-2006 History of tobacco use [...] Healthcare Start: 01-18-2023 Sexual orientation Heterosexual (finding) [facility] Start: 06-05-2024 End: 09-30-2024 Sex Female (finding) [facility] Medical Equipment Procedure Code Equipment Code [...] Desired Activity /State Clinical Notes 11-04-2020 to 12-08-2024 Note Date & Type Note Facility 12-08-2024 Evaluation note Authored December 08, 2024 12:48 pm Sooner if needed, the ER if concerns,The above note written by Mercedes Ricketts LPN acting as human recorder, note dictated by Dr. Peter Ahumada [facility] Work Phone: [phone] History of Present illness Narrative* Alber Haines, DO - 10/13/2024 1:15 PM EDT Images from the original note [...] with previously ruptured chronic sebaceous cyst. I'll seeher PRN documented in [facility]Saint [facility] [id number] History of Present illness Narrative* Alber Haines DO - 09/10/2024 3:30 PM EST Images from the original note were not [...] 90 mcg/act inhaler Every 4 hours HYDROcodone-acetaminophen ([place]) 5-325 MG tablet TAKE 1 TABLET BY MOUTH EVERY 4-6 HOURS NEEDED FOR PAIN FOR 7 DAYS ibuprofen 800 MG tablet TAKE 1 TABLET BY MOUTH THREE TIMES A DAY WITH FOOD OR MILK NEEDED levothyroxine (Synthroid, Levoxyl) 88 MCG tablet TAKE 1 TABLET BY MOUTH EVERY DAY IN THE MORNING ONEMPTY STOMACH FOR 90 DAYS Mary Lou 0.25-35 [...] like to schedule it. documented in this [facility]02-18-2025 Evaluation note* Author Hyacinth Hutton [facility] Authored September 09, 2024 3:43pm The above note written by SIOMARA Bolden acting as human recorder, note dictated by Dr. Peter Ahumada. [facility] Work Phone: [phone] 804-248210-31-2024 History of Present illness Narrative* CESAR Rich - 05/22/2024 2:30 PM EDT Images from the original note were not included. Reason for Appointment: EMG Patient: Darling Khanna : 1980 EMG Computer: [employer] Referring Physician: Dr. Robert Martinez EMG: BLE business process engineer: Cayetano Moreno RT(R) Office Location: [place] Reason for EMG: c/o low back pain into left hip, pain in right knee, pain in bilateral heels. No hxof DM. Not on blood thinners. Comments: Procedure was explained to the patient who expressed understanding. Patient appeared to have tolerated the test well despite some discomfort due to the nature of the test. documented in this [facility]08-15-2024 Evaluation note* Author Hyacinth Hutton [facility] Authored March 06, 2024 2: 47pm The above note written by Thuan STRINGER acting as human recorder, note dictated by Dr.Bryan Ahumada. [facility] Work Phone: [phone] Evaluation note* Encounter Date Diagnosis Assessment Notes Treatment Notes Treatment Clinical Notes Jul, Abnormal mammogram of left breast (ICD-10 - R92.8) [employer] Other 01-15-2024 Evaluation note* Encounter Date Diagnosis Assessment Notes Treatment Notes Treatment Clinical Notes Jul, Abnormal mammogram (ICD-10 - R92.8) [employer] Other 11-17-2023 Evaluation note* Encounter Date Diagnosis [...] modification. May, Acute bronchitis (ICD-10 - J20.9) [employer] Other 11-02-2023 Evaluation note* Encounter Date Diagnosis [...] exercise regimen; we will continue to monitor. [employer] Other 08-30-2023 Evaluation note* Encounter Date Diagnosis [...] been ordered to use for allergic reaction. [employer] Other 06-23-2023 Evaluation note* Encounter Date Diagnosis Assessment Notes Treatment Notes Treatment Clinical Notes Dec, Mass of upper outer quadrant of left breast (ICD-10 - N63.21) [employer] Other 11-03-2022 Evaluation note* Encounter Date Diagnosis [...] sent to the lab to determine pathology. [employer] Other 10-03-2022 Evaluation note* Encounter Date Diagnosis [...] excisional biopsy. Apr, Hyperlipidemia (ICD-10 - E78.5) [employer] Other 04-13-2022 Evaluation note* Encounter Date Diagnosis Assessment Notes Treatment Notes Treatment Clinical Notes Oct, Neoplasm of uncertain behavior of skin (ICD-10 - D48.5) The patient does have three lesions located on her left lateral calf, right upper thigh, and left vertex region of the scalp that are red, inflammed, and are abnormally shaped that were removed via shave and sent for pathology. [employer] Other 03-28-2022 Evaluation note* Encounter Date Diagnosis [...] eye. These will be removed with hyfrecator. [employer] Other 03-24-2022 NoteHNO ID: [id number] Author: Kate Daniel MD Service: ? Author Type: Physician Type: Progress Notes Filed: 10/17/2021 1:50 PM Note Text: Assessment ESTABLISHED PATIENT Darling Khanna is a 40 year old female with a right posterior liver subcapsular fluid collection ? 03/03/2021: Patient presented to [facility] on 02/08/2021 for 2 days for [...] Records From:? 02/08/2021 ER Report [facility] 02/09/2021 ER Report [facility] 02/15/2021 PCP Office note ? Visited [...] of month. Gained?50 pounds since July?(was in [place] for 3 months, drank a lot); diagnosed [...] well. She did spend 3 months in [place] and did not have any issues, hospitalizations [...] which included preparing to see the patient, [id number] patient care and completing clinical documentation. Kate Daniel [facility]03-24-2022 Nurse Note* Jayne Aguila Ma - 10/13/2021 1:32 PM EDT What is the reason for your visit today? Follow up Who is your referring physician? Are you having poor oral intake? NO Have you had unintentional weight loss of 15 lbs/7 Kg in the last 3-6 months? NO Bowels: regular Wound: Temperature: No Drains: No [facility] History of Present illness Narrative* Kate Daniel MD - 10/13/2021 1:30 PM EDT Assessment ESTABLISHED PATIENT Darling Khanna is a 40 year old female with a right posterior liver subcapsular fluid collection 03/03/2021: Patient presented to [facility] on 02/08/2021 for 2 days for [...] Records From: 02/08/2021 ER Report [facility] 02/09/2021 ER Report [facility] 02/15/2021 PCP Office note Visited ER [...] Gained 50 pounds since July (was in [place] for 3 months, drank a lot); diagnosed [...] well. She did spend 3 months in [place] and did not have any issues, hospitalizations [...] which included preparing to see the patient, [id number] patient care and completing clinical documentation. Kate Daniel MD [facility] Evaluation note* Encounter Date Diagnosis Assessment [...] loss since starting a dieting plan called [employer]. Encouraged her to continue monitoring her diet as she voices a goal of getting under 200lbs. We will continue to monitor. [employer] Other 09-16-2021 NoteHNO ID: [id number] Author: Kate Daniel MD Service: ? Author Type: Physician Type: Progress Notes Filed: 04/11/2021 3:19 PM Note Text: Assessment ESTABLISHED PATIENT Darling Khanna is a 40 year old female with a right posterior liver subcapsular fluid collection 03/03/2021: Patient presented to [facility] on 02/08/2021 for 2 days for [...] Records From:? 02/08/2021 ER Report [facility] 02/09/2021 ER Report [facility] 02/15/2021 PCP Office note ? Visited [...] Gained 50 pounds since July (was in [place] for 3 months, drank a lot); diagnosed [...] which included preparing to see the patient, [id number] patient care and completing clinical documentation. Kate Daniel [facility]09-01-2021 NoteHNO ID: [id number] Author: William De León MD Service: ? [...] findings to suggest etiology Pre-conference plan (from [employer]): - Observation and serial imaging Imaging Review: - January 2021 - CT Abd/Pelvis and MRI Final Consensus Recommendation(s): - No clear etiology of right posterior subcapsular fluid collection - Fluid consistency is not consistent with a hematoma - No underlying masses or intrinsic liver pathology Final recommendation(s) differ from pre-conference plan? (Y/N) - No William De León MD [facility] Surgical [facility] NoteHNO ID: [id number] Author: Kate Daniel MD Service: ? Author [...] 40 year old female Patient presented to [facility] on 02/08/2021 for 2 days for [...] Records From: 02/08/2021 ER Report [facility] 02/09/2021 ER Report [facility] 02/15/2021 PCP Office note Visited ER [...] Gained 50 pounds since July (was in [place] for 3 months, drank a lot); diagnosed [...] was malignant. Seen by Dr. Haines on [facility], in [facility]; denies chemotherapy [...] rhythm. Abdomen: Abdomen so (more content not included)...[facility] 12-28-2020 NoteHNO ID: [id number] Author: Tracey Hair Ma Service: ? Author Type: ? Type: Progress Notes Filed: 12/28/2020 4:25 PM Note Text: Dispensed XL/XXL Reaction brace for the Right knee. Dispensed by [employer]. Instructions were given on application/adjustments. She will f/u as scheduled/prn. Tracey Hair MA,[facility] 12-28-2020 NoteHNO ID: [id number] Author: Ishan Yusuf, Service: ? Author Type: [...] was performed today. CLINICAL IMPRESSION / ASSESSMENT: (S62.773D) Closed nondisplaced fracture of proximal phalanx of [...] PT if not improving Procedures Ishan Yusuf, [facility]05-11-2021 NoteHNO ID: [id number] Author: Ishan Yusuf, DO Service: ? Author [...] results and radiologist's interpretation, available in the [facility] health record. Images were reviewed with the patient/family members in the office today. My personal interpretation of the performed imaging is healing proximal phalanx fracture CLINICAL IMPRESSION / ASSESSMENT: (U92.525A) Closed nondisplaced fracture of proximal phalanx of left little finger, initial encounter (primary encounter diagnosis) PLAN: Start weaning out of the splint at this time Can start OT at this time ROM as tolerated Follow-up in 3-4 weeks Procedures Ishan Yusuf, [facility]05-11-2021 NoteHNO ID: [id number] Author: Gayatri Chilel RT(R) Service: ? Author Type: Pest Control Service Sales Agent Type: Progress Notes Filed: 11/30/2020 3:44 PM [...] BY: RT Suzanna(R) November 30, 2020 3:43 [place]04-29-2021 NoteHNO ID: [id number] Author: Lexus Villareal RT(R) Service: ? Author Type: Pest Control Service Sales Agent Type: Progress Notes Filed: 11/18/2020 3:47 PM [...] IV DATA: Not applicable SIGNED BY: Lexus Lilly Villareal, RT(R) November 18, 2020 3:45 [place]04-29-2021 NoteHNO ID: [id number] Author: Ishan Yusuf, DO Service: ? Author [...] results and radiologist's interpretation, available in the [facility] health record. Images were reviewed with the patient/family members in the office today. My personal interpretation of the performed imaging is intra-articular proximal phalanx fracture CLINICAL IMPRESSION / ASSESSMENT: (S62.161A) Closed nondisplaced fracture of proximal phalanx of left little finger, initial encounter (primary encounter diagnosis) PLAN: Placed her in aluminum splint Will discuss case with Dr. [place] due to some progression of depression Follow-up accordingly Procedures Ishan Yusuf, [facility]04-15-2021 NoteHNO ID: [id number] Author: Bob Millan Service: ? Author Type: Physician Type: Progress Notes Filed: 11/04/2020 2:12 PM Note Text: [facility] Office Visit Documentation Note [facility] Orthopaedic and Rheumatologic [place] REASON FOR VISIT / CHIEF COMPLAINT SERVICE [...] results and radiologist's interpretation, available in the [facility] health record. Images were reviewed with the patient/family members in the office today. My personal interpretation of the performed imaging is Has IA prox phalanx fracture at PIP ASSESSMENT / PLAN CLINICAL IMPRESSION / ASSESSMENT: (J63.470F) Closed nondisplaced fracture of proximal phalanx of [...] plan as detailed above. Bob Millan D.O. [facility] [place] Team Physician, [facility] Consulting Physician, [place] Sawyer aLnderos, Billing Analyst [phone] Patient verbalizes understanding and agrees with the treatment plan as detailed above.[facility] Liver pain- Primary Abdominal pain, other specified site documented in this encounter [facility] noteNo InformationNort [employer] Other Evaluation noteNo assessment information available [facility] Work Phone: evaluation note* Diagnosis Onset Date Resolution Status Ground-level fall acute Laceration of knee, left acu te Right elbow pain acute [facility] Work Phone: evaluation note* Diagnosis Onset Date Resolution Status Ground-level fall acute Laceration of knee, left acu te Right elbow pain acute Elbow fracture, right acute Hypothyroidism acute Laceration of knee, left acu te [facility] Work Phone: evaluation note* Diagnosis Onset Date Resolution Status Ground-level fall acute Laceration of knee, left acu te Right elbow pain acute Elbow fracture, right acute Hypothyroidism acute Laceration of knee, left acu te Fracture of radial neck, right, closed acute [facility] Work Phone: evaluation note* Diagnosis Onset Date Resolution Status Ground-level fall acute Laceration of knee, left acu te Right elbow pain acute Elbow fracture, right acute Hypothyroidism acute Laceration of knee, left acu te Fracture of radial neck, right, closed acute Fracture of radial neck, right, closed acute [facility] Work Phone: evaluation note* Diagnosis Onset Date Resolution Status Ground-level fall acute Laceration of knee, left acu te Right elbow pain acute Elbow fracture, right acute Hypothyroidism acute Laceration of knee, left acu te Fracture of radial neck, right, closed acute Fracture of radial neck, right, closed acute Fracture of radial neck, right, closed acute [facility] Work Phone: Evaluation note* Author Hyacinth Hutton [facility] Authored March 06, 2024 2: 47pm The above note written by Thuan STRINGER acting as human recorder, note dictated by Dr.Bryan Ahumada. [facility] Work Phone: evaluation note* Diagnosis Closed nondisplaced fracture of proximal phalanx of left little finger, initial encounter [facility] Diagnosis Lumbosacral radiculopathy- Primary Thoracic or lumbosacral neuritis or radiculitis, unspecified documented in this encounter [facility] HealthcareEvaluation note* Diagnosis Onset Date Resolution Status Admit Date Bilateral foot pain acute Novem 2023 2:36pm Fatty liver acute May 2:36pm GERD (gastroesophageal reflu x disease) acute June 10, 2 024 2:36pm Hypothyroidism acute May 232023 2:36pm Pre-diabetes acute May 2:36pm [facility] Work Phone: Evaluation note* Author Hyacinth Hutton [facility] Authored September 09, 2024 2:43pm The above note written by SIOMARA Bolden acting as human recorder, note dictated by Dr. Peter Ahumada. 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 Medical History Inclusion cyst Surgical History jaw surgery for underbite Surgical History breast biopsy 2018 Hospitalization History see surgical hx [employer] Other Hospital Discharge instructions Additional Instructions [place] diet as tolerated Increase oral fluids Take the diclofenac twice a day as needed for pain and inflammation Take oxycodone every 6 hours for severe pain Follow-up with your family doctor for recheck I also gave you the number for gastroenterology Return to the ER for more severe pain high fever vomiting or any other concerns [facility] Work Phone: Hospital Discharge instructions Additional Instructions [facility] Work Phone: Hospital Discharge instructions Additional [...] directed for pain unless a prescription was provided.[facility] Work Phone: reason for referral (narrative)No reason for referral information availableHolzer [facility] Work Phone: reason for visit Narrative* Other Medical (Routine) - Closed Specialty Diagnoses / Procedures Referred By Clarisse t Referred To Contact Neurology Diagnoses Sciatica, left side Procedures IN NEEDLE EMG EA EXTREMTY W/PARASPINL AREA COMPLETE IN NERVE CONDUCTION STUDIES 9-10 STUDIES Robert Martinez MD [address] [place] [address] Phone: tel: fax: Shakeel Rios MD [address] [place] [address] Phone: tel: fax: Referral ID Status Reason Start Date Expiration Date V isits Requested Visits Authorized [id number] Closed Perform Procedure 05/13/2024 11/09/2024 1 1 [facility] Summary Purpose Family History No Family History Records Found Relationship Condition Age at Onset Recorded Date/T sarah family member Family history of other condition Unknow n Not Specified Malignant neoplasm Unknown Family history of other condition Unknown Relationship Condition Age at Onset Recorded Date/T saarh mother Malignant neoplasm of uterus Unknown Advance [...] 2024 2:14pm Lump September 09, 2024 2:14pm Chief Complaint Admit Date R73.03 R03.9 E78.5 K21.9 December 05, 2024 6:28am yearly check up/not a wellness December 08, 2024 12:26pm Z12.39 January 27, 2025 8:36a m Reason for Visit Admit Date Hyperlipidemia December 08, 2024 12:26 pm Hypothyroidism December 08, 2024 12:26 pm Pre-diabetes December 08, 2024 12:26 pm Screening for breast cancer December 08 12:26pm Additional Source Comments INFORMATION SOURCE (unrecogn ized section and content) DATE CREATED AUTHOR 02/25/2021 [facility] DATE CREATED AUTHOR AUTHOR'S ORGANIZ ATION 10/18/2021 [facility] DATE CREATED AUTHOR AUTHOR'S ORGANIZ ATION 10/14/2024 [facility] DATE CREATED AUTHOR AUTHOR'S ORGANIZ ATION 02/07/2025 [facility] DATE CREATED AUTHOR AUTHOR'S ORGANIZ ATION 02/07/2025 [facility] Source Comments (unrecognize d section and content) In the event this informatio n is protected by the Federal Confidentiality of Alcohol and Drug Abuse Patient Records regulations: The Federal rules restrict any use of the information to criminally investigate or prosecute any alcohol or drug abuse patient.[facility] the event this information is protected by the Federal Confidentiality of Alcohol and Drug Abuse Patient Records regulations: The Federal rules restrict any use of the information to criminally investigate or prosecute any alcohol or drug abuse patient.[facility] Hospital[facility] the event this information is protected by the Federal Confidentiality of Alcohol and Drug Abuse Patient Records regulations: The Federal rules restrict any use of the information to criminally investigate or prosecute any alcohol or drug abuse patient.[facility] Reason for Visit (unrecogniz ed section [...] Primary Care Provider, Attending Provi dani Active Court Stenographer Relationship Specialty Start Date End Date Peter Ahumada DO [address] [place] [phone] PCP - General Family Practice 11/22/15 Team Status: Inactive Member Role Status Dates Peter Ahumada DO Primary Care Provider Active BAYLEE Jimenez- Emergency Provider Active Team Status: Inactive Member Role Status Dates Peter Ahumada DO Primary Care Provider Active Koki Elkins ([facility]) , AIR CARRIER INSPECTOR Attending Provider Active Team Status: Inactive Member [...] 2023 Referral Self Attending Provider Active Start: 2023 End: December 03, 2023 Team Status: [...] Status: Inactive Member Role Status Dates Peter Auhmada DO Primary Care Provide r, Attending Provider [...] 2023 End: December 31, 2023 Chas Meza , DO Attending Provider Active S tart: December 31, 2023 End: December 31, 2023 Team Status: Inactive Member Role Status Dates Peter Ahumada , DO Primary Care Provider Active Sta rt: December 31, 2023 End: December 31, 2023 Alber Haines , DO Attending Provider Active Start: December 31, 2023 End: December 31, 2023 Team Status: Active Member Role Status Dates Peter Ahumada , [...] 2024 End: January 15, 2024 Alber Haines , DO Attending Provider Active Start: January 15, 2024 End: January 15, 2024 Team Status: Inactive Member Role Status Dates Peter Ahumada DO Primary Care Provider Active Sta rt: January 29, 2024 End: January 29, 2024 Alber Haines , DO Attending Provider Active Start: January 29, [...] March 12, 2024 End: March 12, 2024 Court Stenographer Relationship Specialty Start Date End Date Peter Ahumada DO [address] [place] [address] PCP - General Family Medicine 11/22/15 Team Status: Inactive Member Role Status Dates Peter Ahumada DO Primary Care Provider Active Sta rt: May 19, 2024 End: May 19, 2024 Robert Martinez DPM MS Attending Provider Active Start: May 19, 2024 End: May 19, 2024 Court Stenographer Relationship Specialty Start Date End Date Peter Ahumada MD [facility] [place] [address] PCP - General 01/25/23 Court Stenographer Relationship Specialty Start Date End Date Peter Ahumada MD [facility] [place] [address] PCP - General 01/25/23 Team Status: Inactive [...] September 09, 2024 End: September 09, 2024 Court Stenographer Relationship Specialty Start Date End Date Peter Ahumada MD [facility] [place] [address] PCP - General 01/25/23 Team Status: Inactive Member Role Status Dates Alber Haines DO Attending Provider Active Start: September 29, 2024 End: September 29, 2024 Court Stenographer Relationship Specialty Start Date End Date Peter Ahumada MD [address] [place] [phone] PCP - General 01/25/23 Team Status: Inactive Member Role Status Dates Peter Ahumada DO Primary Care Provider Active Sta rt: December 05, 2024 End: December 05, 2024 Peter Ahumada DO Attending Provider Active Start: December 05, 2024 End: December 05, 2024 Team Status: Inactive Member Role Status Dates Peter Ahumada DO Primary Care Provider Active Sta rt: December 08, 2024 End: December 08, 2024 Peter Ahumada DO Attending Provider Active Start: December 08, 2024 End: December 08, 2024 Team Status: Inactive Member Role Status Dates Peter Ahumada DO Primary Care Provider Active Sta rt: January 27, 2025 End: January 27, 2025 Peter Ahumada DO Attending Provider Active Start: January 27, 2025 End: January 27, 2025 Goals (unrecognized section and content) Goals may [...] BE BASED ON THE PRIMARY CLINICAL RECORDS. [facility]. provides no warranty or guarantee of the accuracy or completeness of information in this document.
[2025-03-02 07:37] VITALS: BP 126/92; PULSE 76; TEMP 36.2; O2SAT 97
[2025-03-02 08:23] VITALS: BP 139/80; BP 148/81; PULSE 71; PULSE 72; O2SAT 100; O2SAT 99
[2025-03-02] MEDS: BUPIVACAINE HCL 0.25% PF 25 MG/10 ML VIAL 8 ML INJ (08:25)
--- NOTE | 2025-03-02 08:25 | W.PM.PROCNOT ---
Date of procedure: 03/02/25 Pre-op diagnosis: Pain due to lumbar spondylosis without myelopathy Post-op diagnosis: same as pre-op Procedure: Procedure: Bilateral L4-5, L5-S1 medial branch block Medications: Bupivacaine 0.25% 6cc The patient was seen and examined in the preoperative holding area.? An informed consent was obtained and placed on the chart.? The patient was brought to the medical procedure unit and placed in the prone position.? A timeout was completed verifying correct patient, procedure site, positioning, plan, and special equipment.? Using aseptic technique, the needle was placed at left L4. Under direct fluoroscopic visualization a Quincke-tipped spinal needle was advanced to the junction of the superior articulating process with the transverse process at the designated medial branch segment.? Preceded by negative aspiration, the above-mentioned injectate was placed in 1 mL aliquots.? The procedure was repeated at left L5, S1.? The needle was removed and insertion site was covered. The same procedure, at the same levels, was completed on the right side. The patient was taken to the postprocedural recovery area and monitored for an appropriate length of time before found suitable for discharge in the company of a responsible adult. Anesthesia: Local Surgeon: Christos Manrique Pathology: none sent Condition: stable Disposition: no change
[2025-03-02] MEDS: LIDOCAINE HCL 2% 400 MG/20 ML MDV INJ (08:26)
== END 2025-03-02 08:34 | disposition home or self-care (01) ==
LOC: SURGOUT 07:27
PROVIDERS: PCP Family Medicine; Visit Provider Anesthesiology
DX: M47.816 Spondylosis without myelopathy or radiculopathy, lumbar region (principal); M54.50 Low back pain, unspecified
CPT/HCPCS: 64493; 64494; J0665

== ENCOUNTER 2025-03-04 07:41 | Outpatient (OUT) | payer OTHER, SELFPAY ==
--- OUTSIDE RECORDS SUMMARY | 2024-05-07 11:33 | XMS_ITS ---
Author Organization The [facility] in [place] Address [address] [place] [address] Care Team Providers Care Biscuit Factory Worker Name Role Phone Peter Lozano DO Primary Care Provider Arthur Wade [phone] REASON FOR VISIT med order Medications Medication SIG (Take, Route, Fr equency, Duration) Notes Start Date End Date Status Meloxicam 15 MG 1 tablet Orally Once a day for 30 days 05/07/2024 Active Encounters Encounter Location Date Provider Diagnosis [facility] (PODIATRY) [address] [place] [address] [place] [address] 05/07/2024 Arthur Kent Plan Of Treatment Medication Medication Name Sig Start Date Stop Date Notes Meloxicam 15 MG 1 tablet Orally Once a day for 30 days Progress Notes * Alex OHARAaDOB: 2 (44 yo F)Acc No.[id number]:05/07/2024 Patient: Darling COLEMAN :1980 A ge:44 Y S ex:Female Address:[address] [place] [address], [address] * Refills Start Meloxicam Tablet, 15 MG, Orally, 30, 1 tablet, Once a day, 30 days, Refills=2 * true * Date: Generated for Juvenal tay/Dorota/eTransmitting on: 0 03/04/2025 07:43 AM EDT
--- OUTSIDE RECORDS SUMMARY | 2024-06-17 10:30 | XMS_ITS ---
Author Organization The [facility] in [place] Address [address] [place] [address] Care Team Providers Care Food Service Representative Name Role Phone Peter Lozano DO Primary Care Provider Arthur Wade [phone] Reason For Referral Reason Referral to [facility] PT Diagnosis 1 Plantar fascial fibr omatosis (M72.2) Referral Organization [facility] (PODIATRY) Referring Provider First Name Arthur Referring Provider Last Name Yoli Referring Provider Speciality Podiatry Referred Provider Specialty Physical The rapist Referral Priority Routine Reason Referral to linden Schmid Diagnosis 1 Plantar fascial fibr omatosis (M72.2) Referral Organization [facility] (PODIATRY) Referring Provider First Name Arthur Referring Provider Last Name Yoli Referring Provider Speciality Podiatry Referred Provider Specialty Pain Medicin e Referral Priority Routine REASON FOR VISIT MRI ([facility] 06.04.24) and EMG review Medications Medication SIG (Take, Route, Frequency, Duration) Notes Start Date End Date Status Levothyroxine Sodium 88 MCG 1 tablet in the morning on an empty stomach Orally Once a day Active Meloxicam 15 MG 1 tablet Orally Once a day for 30 days 05/07/2024 Active methylPREDNISolone 4 MG as directed Orally 024 Active Meloxicam 15 MG 1 tablet Orally Once a day for 30 days 05/07/2024 Active Meloxicam 15 MG 1 tablet Orally Once a day for 30 days 05/07/2024 Active Esomeprazole Magnesium 40 MG 1 capsule O rally Once a day Active Mary Lou 0.25-35 MG-MCG 1 tablet Orally Once a day Active Centrum Active Social History Tobacco Use: Social History Observation Description Date Details (start date - stop date) Former Smoker NA - NA Tobacco Control (Standard) Question Answer Notes Tobacco use: Former smoker Problems Problem Type SNOMED Code ICD Code Onset Dates Problem Status W/U Status Risk Notes Problem [id number] Radiculopathy , lumbar region (M54.16) Active confirmed Vital Signs Height 72 in 06/17/2024 Temperature 97.3 degrees Fahrenheit 06/17/20 Heart Rate 87 /min 06/17/2024 Oximetry 94 % 06/17/2024 Encounters Encounter Location Date Provider Diagnosis [facility] (PODIATRY) [address] [place] [address] [place] [address] 06/17/2024 Arthur Kent Plantar fascial fibromatosis M72.2 ; Contracture, left ankle M24.572 ; Radiculopathy, lumbar region M54.16 and Sciatica, left side M54.32 Assessments Encounter Date Diagnosis (ICD Code) Assessment Notes Treatment Notes Treatment Clinical Notes Section Notes 06/17/2024 Plantar fascial fibromatosis (ICD-10 - M72.2) Patient seen and evaluated. Patient education provided. I reviewed MRI and EMG with her as well as reviewed clinical findings. She has had heel pain for well over a year and relates that since February her pain has improved significantly however is still present on a daily basis. She attributes this pain relief due to weight loss. She has previously had corticosteroid injections into her heels by another provider which only exacerbated her pain. I discussed potential risks and benefits of surgical versus nonsurgical treatment and recommended physical therapy with iontophoresis but I also recommended that she follow-up with pain management for radiculopathy and symptoms of sciatica. I did provide physical therapy for sciatica as well. Depending on what pain management says and her outcome with physical therapy she may require surgery if not improved but will follow-up with her in 4 to 6 weeks no new x-rays are needed 06/17/2024 Contracture, left ankle (ICD-10 - M24.572) 06/17/2024 Radiculopathy, lumbar region (ICD-10 - M54.16) 06/17/2024 Sciatica, left side (ICD-10 - M54.32) Plan Of Treatment Treatment Notes Assessment Notes Plantar fascial fibromatosis Patient see n and evaluated. Patient education provided. I reviewed MRI and EMG with her as well as reviewed clinical findings. She has had heel pain for well over a year and relates that since February her pain has improved significantly however is still present on a daily basis. She attributes this pain relief due to weight loss. She has previously had corticosteroid injections into her heels by another provider which only exacerbated her pain. I discussed potential risks and benefits of surgical versus nonsurgical treatment and recommended physical therapy with iontophoresis but I also recommended that she follow-up with pain management for radiculopathy and symptoms of sciatica. I did provide physical therapy for sciatica as well. Depending on what pain management says and her outcome with physical therapy she may require surgery if not improved but will follow-up with her in 4 to 6 weeks no new x-rays are needed Referrals Referral Date Details 06/18/2024 06/18/2024, Referral to [facility] 06/18/2024 06/18/2024, Referral to pain management DR. Schmid Progress Notes * Yany OHARAB: 2 (44 yo F)Acc No.[id number]:06/17/2024 Follow Up Patient: Manuel PAUL Darling Provider: Agusto Kent DPM, MS :1980 A ge:44 Y S ex:Female Date:06/17/2024 Address:[address] [place], [place] [phone] Pcp:Peter Lozano, DO Check In:02:25 PM ESTCheck O ut:03:34 PM EST Subjective: * Chief Complaints: * M RI ([facility] .13.24) and EMG review * HPI: Sharmaine eneral: Patient in office today for MRI review and EMG Review. Nona states she has had no change in symptoms since her last visit. She still c/o pain in her bilateral heels. She ia taking ibuprofen for pain as needed. * Active Problem List M21.861 Other specified acqu ired deformities of right lower leg Modified On:03/26/2024W/U Status:confirmed M21.862 Other specified acqu ired deformities of left lower leg Modified On:03/26/2024W/U Status:confirmed M54.32 Sciatica, left side Modified On:03/26/2024/U Status:confirmed M72.2 Plantar fascial fibr omatosis Modified On:05/09/2024/U Status:confirmed M24.572 Contracture, left an kle Modified On:05/09/2024/U Status:confirmed M24.571 Contracture, right a nkle Modified On:05/09/2024/U Status:confirmed M54.16 Radiculopathy, lumba r region Modified On:06/17/2024/U Status:confirmed * Medical History: * Surgical History: j aw broke and 4 wisdom teeth extracted 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 * Family History: M other: diagnosed with Other malignant neoplasm of unspecified site. * Social History: T obacco Use: T obacco Control (Standard) T obacco use: F ormer smoker * Medications: T akingCentrum Esomeprazole Magnesium 40 MG Capsule Delayed Release 1 capsule Orally Once a day Levothyroxine Sodium 88 MCG Tablet 1 tablet in the morning on an empty stomach Orally Once a day Meloxicam 15 MG Tablet 1 tablet Orally Once a day Meloxicam 15 MG Tablet 1 tablet Orally Once a day Meloxicam 15 MG Tablet 1 tablet Orally Once a day methylPREDNISolone 4 MG Tablet Therapy Pack as directed Orally Mary Lou(Norgestimate-Eth Estradiol) 0.25-35 MG-MCG Tablet 1 tablet Orally Once a day Taking Centrum Taking Esomeprazole Magnesium 40 MG Capsule Delayed Release 1 capsule Orally Once a day Taking Levothyroxine Sodium 88 MCG Tablet 1 tablet in the morning on an empty stomach Orally Once a day Taking Meloxicam 15 MG Tablet 1 tablet Orally Once a day Taking Meloxicam 15 MG Tablet 1 tablet Orally Once a day Taking Meloxicam 15 MG Tablet 1 tablet Orally Once a day Taking methylPREDNISolone 4 MG Tablet Therapy Pack as directed Orally Taking Mary Lou(Norgestimate-Eth Estradiol) 0.25-35 MG-MCG Tablet 1 tablet Orally Once a day * Allergies: n o[Allergies Verified] Objective: * Vitals: H t: 72 in, Temp:97.3F, HR:87/min, Pain scale:21-10, Oxygen sat %:94%, Ht-cm: 182.88 cm. * Examination: P odiatry Examination: SKIN: s kin intact, n o sign of infection. MUSCULOSKELETAL: P OP bilateral plantar medial instep. Ankle joint dorsiflexion is to neutral but not past. NEUROLOGICAL: l ight touch sensation intact, n egative tinel's sign. VASCULAR: P edal pulses palpable, C apillaryrefill is brisk to toe, D igitalhair intact. E MG was reviewed with the patient which does show evidence of S1 radiculopathy and common peroneal nerve entrapment on the left MRI was reviewed with her as well of the left hindfoot which is consistent with plantar fasciitis. Assessment: * Assessment: 1. P lantar fascial fibromatosis - M72.2 (Primary) S pecify :Bilateral 2 . C ontracture, left ankle - M24.572 3 . R adiculopathy, lumbar region - M54.16 4 . S ciatica, left side - M54.32 Plan: * Treatment: * Procedure Codes: * * Sign off status: Completed Visit Status: C HK (Check Out) true * Provider: Agusto Kent DPM, MS Date: 1 08/17/2023 Generated for [facility] maggi/Dorota/eTransmitting on: 0 03/04/2025 07:43 AM EDT History and Physical Notes * HPI (History of Present Illness) Category Sub-Category Detail Notes Category Not es General Patient in offi ce today for MRI review and EMG Review. Patinet states she has had no change in symptoms since her last visit. She still c/o pain in her bilateral heels. She ia taking ibuprofen for pain as needed. Examination Category Sub-Category Detail Notes Category Not es Podiatry Examination SKIN: skin intact, no sign of infection EMG was reviewed with the patient which does show evidence of S1 radiculopathy and common peroneal nerve entrapment on the left MRI was reviewed with her as well of the left hindfoot which is consistent with plantar fasciitis MUSCULOSKELETAL: POP bilateral planta r medial instep. Ankle joint dorsiflexion is to neutral but not past NEUROLOGICAL: light touch sensatio n intact, negative tinel's sign VASCULAR: Pedal pulses palpable, Capillary refill is brisk to toe, Digital hair intact Consultation Request Notes Referral Date Referring Provider Referred Provider Not es 06/18/2024 Arthur Kent , Referral t o [facility] 06/18/2024 Arthur Kent , Referral t o pain management DR. Schmid
--- OUTSIDE RECORDS SUMMARY | 2024-06-27 05:22 | XMS_ITS ---
Author Organization [facility] in [place] Address [address] [place] [address] Care Team Providers Care Single Stroke Preformer Name Role Phone Peter Lozano DO Primary Care Provider Arthur Wade [phone] Encounters Encounter Location Date Provider Diagnosis [facility] (PODIATRY) [address] [place] [address] [place] [address] 06/27/2024 Arthur Kent Plan Of Treatment No Information Progress Notes * ADOLFOAINSLEYYanyB: 2 (44 yo F)Acc No.[id number]:06/27/2024 Patient: Darling COLEAMN :1980 A ge:44 Y S ex:Female Address:[address] [place] [address], [phone] * true * Date: Generated for Printi ng/Faxing/eTransmitting on: 0 03/04/2025 07:43 AM EDT
--- OUTSIDE RECORDS SUMMARY | 2024-07-24 10:48 | XMS_ITS | Continuity of Care Document ---
Author Organization [facility] Address [address] [place] [address] Phone Care Team Providers Care Telecommunicator Name Role Phone Severo KETANAgusto Tamar CARLINan [...] 130 MM HG MED LIST DOCD IN [facility] RVW MEDS BY RX/DR IN [facility] Pt inelig neg scrn depres OFFICE/OUTPATIENT [...] Diagnoses Date Provider Providers Copied on Encounter [facility], [address] [place] [address], [id number] , [place] tel:[phone] [facility] No Information 5 Severo [facility]elles. [address] [place] [address], [id number], [place]. tel:[phone] PREV VISIT, EST, AGE 40-64 [facility], [address], [place], [id number] , [place] tel:[phone] [facility] annual exam (chief complaint) Encounter for gynecological examination (general) (routine) without abnormal findingsBody mass index [BMI] 31.0-31.9, adultEncounter for screening mammogram for Ca of breastOCP follow up Rx 4 [facility] Koki. [address], [place], [id number], [place]. tel:[phone] PREV VISIT, EST, AGE 40-64 [facility], [address], [place], [id number] , [place] tel: [phone] [facility] annual exam (chief complaint) Encounter for gynecological examination (general) (routine) without abnormal findingsEncounte r for STD screening- STD High risk heterosexual behaviorOCP follow up RxBody mass index [BMI] 34.0-34.9, adult 3 [facility] Koki. [address], [place], [id number], [place]. tel:[phone] OFFICE/OUTPA TIENT VISIT, EST [facility], [address], [place], [id number] , [place] tel: [phone] [facility] Ovarian cyst (chief complaint) Right ovarian cystFamily history of uterine cancerEncounter for screening mammogram for Ca of breastBody mass index [BMI] 36.0-36.9, adult 3 [facility] Koki. [address], [place], [id number], [place]. tel:[phone] PREV VISIT, EST, AGE 40-64 [facility], [address], [place], [id number] , [place] tel:[phone] [facility] annual exam (chief complaint) Encounter for gynecological examination (general) (routine) without abnormal findingsBody mass index [BMI] 33.0-33.9, adultEncounter for STD screeningOther problem related to lifestyleOCP follow up RxEncounter for screening mammogram for Ca of breast 2 [facility] Koki. [address], [place], [id number], [place]. tel:[phone] PREV VISIT, EST, AGE 18-39 [facility], [address], [place], [id number] , [place] tel: [phone] [facility] annual exam (chief complaint) Encounter for gynecological examination (general) (routine) without abnormal findingsBody mass index [BMI] 37.0-37.9, adultPelvic pain in femaleEncounter for screening mammogram for Ca of breastOCP follow up Rx 1 [facility] Koki. [address], [place], [id number], [place]. tel:[phone] [facility], [address] [place] [address], [id number] , [place] tel: [phone] [facility] Abnormal Mammogram 0 [facility] Koki. [address], [place], [id number], [place]. tel:[phone] PREV VISIT, EST, AGE 18-39 [facility], [address], [place], [id number] , [place] tel: [phone] [facility] annual exam (chief complaint) Encntr for tour conductor exam (general) (routine) w/o abn findingsFibrocys tic disease of breastEncounter for STD screeningOther problem related to lifestyleBody mass index (BMI) 29.0-29.9, adultUrine test negative 0 [facility] Koki. [address], [place], [id number], [place]. tel:[phone] [facility], [address] [place] [address], [id number] , [place] tel: [phone] [facility] Abnormal Mammogram 0 [facility] Koki. [address], [place], [id number], [place]. tel:[phone] [facility], [address] [place] [address], [id number] , [place] tel: [phone] [facility] Abnormal Mammogram 9 [facility] Koki. [address], [place], [id number], [place]. tel:[phone] OFFICE/OUTPA TIENT VISIT, EST [facility], [address], [place], [id number] , [place] tel: [phone] [facility] abnormal pap smear (chief complaint) Body mass index (BMI) 29.0-29.9, adultCyst of right breastFibrocysti c disease of breastAtypical squamous cells of undetermined significance on cytologic smear of cervix (ASC-US) 9 [facility] Koki. [address], [place], [id number], [place]. tel:[phone] PREV VISIT, EST, AGE 18-39 [facility], [address], [place], [id number] , [place] tel: [phone] [facility] annual exam (chief complaint) Encntr for tour conductor exam (general) (routine) w/o abn findingsOther problem related to lifestyleEncount er for STD screeningBody mass index (BMI) 28.0-28.9, adult 8 [facility] Koki. [address], [place], [id number], [place]. tel:[phone] [facility], [address], [place], [id number] , [place] tel: [phone] [facility] Cyst of right breast 8 [facility] Koki. [address], [place], [id number], [place]. tel:[phone] [facility], [address], [place], [id number] , [place] tel: [phone] [facility] Cyst of right breast 8 [facility] Koki. [address], [place], [id number], [place]. tel:[phone] OFFICE/OUTPA TIENT VISIT, [facility], [address], [place], [id number] , [place] tel: [phone] [facility] abnormal pap smear (chief complaint) Body mass index (BMI) 28.0-28.9, adultCIN 2OCP follow up Rx 8 [facility] Koki. [address], [place], [id number], [place]. tel:[phone] [facility], [address], [place], [id number] , [place] tel: [phone] [facility] Fibrocystic disease of breast 8 [facility] Koki. [address], [place], [id number], [place]. tel:[phone] OFFICE/OUTPA TIENT VISIT, [facility], [address], [place], [id number] , [place] tel: [phone] [facility] Leep follow up (chief complaint) Unspecified lump in unspecified breastCIN 2 7 Ty Morris. [address], [place], [id number], [place]. tel:[phone] [facility], [address], [place], [id number] , [place] tel: [phone] [facility] Leep (chief complaint) PEG 2 7 Visci DO Mack. [address], [place], [id number], [place]. tel:[phone] OFFICE/OUTPA TIENT VISIT, [facility], [address], [place], [id number] , [place] tel: [phone] [facility] Colpo (chief complaint) Atypical squamous cells of undetermined significance on cytologic smear of cervix (ASC-US)Cervical high risk HPV DNA test positive 7 Visci DO Frederick. [address], [place], [id number], [place]. tel:[phone] OFFICE/OUTPA TIENT VISIT, EST [facility], [address], [place], [id number] , [place] tel: [phone] [facility] contraception (chief complaint) contraceptive management 7 [facility] Koki. [address], [place], [id number], [place]. tel:[phone] OFFICE/OUTPA TIENT VISIT, EST [facility], [address], [place], [id number] , [place] tel: [phone] [facility] vaginal discharge/itch ing (chief complaint) Vulvovaginitis [facility] Koki. [address], [place], [id number], [place]. tel:[phone] PREV VISIT, EST, AGE 18-39 [facility], [address], [place], [id number] , [place] tel: [phone] [facility] annual exam (chief complaint) - well woman with abnormal findingDysmenorr heaEncounter for STD screeningOther problem related to lifestylecontrac eptive managementEncntr for tour conductor exam (general) (routine) w/o abn findingsUmbilica l hernia without obstruction and without gangrene [facility] Koki. [address], [place], [id number], [place]. tel:[phone] PREV VISIT, EST, AGE 18-39 [facility], [address], [place], [id number] , [place] tel: [phone] [facility] Update (chief complaint)robin al exam (chief complaint)cont raception (chief complaint) Encounter for general tour conductor exam without abnormal findingEncounter for STD screeningOther problem related to lifestyle 6 [facility] Koki. [address] [place] [address], [id number], [place]. tel:[phone] PREV VISIT, EST, AGE 18-39 [facility], [address], [place], [id number] , [place] tel: [phone] [facility] annual visit (chief complaint) Gynecological ExaminationIrreg ular menstrual cycle 8-201 4 Rice [facility] K[facility]. [address], [place], [id number], [place]. tel:[phone] PREV VISIT, EST, AGE 18-39 [facility], [address], [place], [id number] , [place] tel: [phone] [facility] No Information 2[address] CORDOVA Erin. [address], [place], [id number]. tel:[phone] PREV VISIT, NEW, AGE 18-39 [facility], [address], [place], [address] , [place] tel: [phone] [facility] No Information 0-201 0 [place] D. [address] [place] [address], [id number], [place]. tel:[phone] Family History Family Member Type Diagnosis Age [...] Record Payers Payer name Insurance type Covered libertarian ID Authoriza tion(s) [employer] [id number] Medicaid Wrap - [facility] [place] [id number] Medicaid Wrap - [facility] [place] [id number] Social History Type Description Quantity Date Captured [...] Goal Depression screening. Due on due Goal Depression screening. Due [...] Tdap Vaccine. Due on 2022 due Goal HPV. Due on due Goal [...] , guidance, and counseling completed Referral Ordered: MAMMOGRAM, SCREENING Appointment date/timeframe: 11/23/2022 ordered Referral Ordered: US EXAM, PELVIC, COMPLETE Appointment date/timeframe: 03/02/2021 ordered Referral Ordered: DX MAMMO INCL CAD [...] OCPs and desires to continue. 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 . annual exam [...] does take Motrin PRN cramping. 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 abnormal pap smear [...] is willing to try nuvaring. 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 Related to Encntr for tour conductor exam (general) (routine) w/o abn findings Cervical [...] insurance, but states [place] [facility] [place] to Umbilical hernia without obstruction and [...] all follow up appt with physician in [place] for abnormal neck gland, fullness and thyroid. Patient states understanding. Encouraged to start Motrin 800mg every 8 hours around the clock during a heavy menses. Patient to take medication with food. Patient states understanding Encouraged to keep menstrual calendar Related to Encounter for general tour conductor exam without abnormal finding Assessments Type Assessment Date No Information Patient Care Teams Name Effective Dates (start - stop) Status Members No Information
--- OUTSIDE RECORDS SUMMARY | 2025-03-04 07:43 | XMS_ITS | Encounter Summary ---
Author Organization [facility] Address [address] [place] [address] Care Team Providers Care Church Musician Name Role Phone Peter Lozano DO Primary Care Provider [phone] Encounter Details Date Type Department Care Team (Late st Contact Info) Description 10/01/2024 Orders Only [facility] [address] [facility] [facility] [address] [place] [phone] Bonifacio Lara DO [address] [facility] [address] [place] [address] Social History Tobacco Use Types Packs/Day Years [...] on filedocumented in this encounter Care Teams Church Musician Relationship Specialty Start Date End Date Peter Lozaon DO PCP - General 01/25/23 documented as of this encounter
--- OUTSIDE RECORDS SUMMARY | 2025-03-04 07:43 | XMS_ITS | Clinical Summary ---
Author Organization [facility] Address [address] [place] [address] Care Team Providers Care Order Processing Specialist Name Role Phone Peter Lozano DO Primary Care Provider [phone] Allergies Active Allergy Reactions Criticality Noted Date [...] FOR 90 DAYS 09/11/2023 Active HYDROcodone-nury taminophen ([place]) 5-325 MG tablet TAKE 1 TABLET BY [...] on file Insurance [employer] Care Teams Order Processing Specialist Relationship Specialty Start Date End Date Peter Lozano DO PCP - General 01/25/23
--- OUTSIDE RECORDS SUMMARY | 2025-03-04 07:43 | XMS_ITS | Patient Health Record ---
Author Organization [facility] Address [address] [place] [address] [place] [address] Care Team Providers Care Microsoft Application Developer Name Role Phone Guillermo Lozano DO Primary Care Provider UnavailDylan Zaragoza Unavailable [phone] Reason For Referral No Information Problems Problem Type SNOMED Code ICD Code Onset Dates Problem Status W/U Status Risk Notes Problem Plantar wart (89338687) Plantar wart (078.12) Active confirmed Problem Pain in limb (75984124) Pain in soft tissues of limb (729.5) Active confirmed Plan Of Treatment No Information Medical (General) History Medical History History ICD Code asthma fractured jaw Surgical History Surgery Date(Month/Year) jaw
--- OUTSIDE RECORDS SUMMARY | 2025-03-04 07:44 | XMS_ITS | Encounter Summary ---
Author Organization [facility] Address [address] [place] [phone] Care Team Providers Care Factory Representative Name Role Phone Peter Lozano Primary Care Provider [phone] Source Comments In the event this information is protected by the Federal Confidentiality of Alcohol and Drug AbusePatient Records regulations: The Federal rules restrict any use of the information to criminally investigate or prosecute any alcohol or drug abuse patient.[facility] Encounter Details Date Type Department Care Team (Late st Contact Info) Description 03/29/2021 Patient Msg General Surgery [address] [place] [address] Provider, [facility] Appointment on 04/07 Social History [...] N ot on file 06/30/2020 Data from: https://www.neighborhoodatlas.medicine.[facility].edu/. Last address used for calculation Not on [...] on filedocumented in this encounter Care Teams Factory Representative Relationship Specialty Start Date End Date Peter Lozano DO [facility] [place] [address] PCP - General Family Medicine 11/22/15 documented as of this encounter
--- OUTSIDE RECORDS SUMMARY | 2025-03-04 07:44 | XMS_ITS | Encounter Summary ---
Author Organization [facility] Address [address] [place] [address] Care Team Providers Care Lithographic Platemaker Name Role Phone Peter Lozano DO Primary Care Provider [phone] Encounter Details Date Type Department Care Team (Late st Contact Info) Description 12/31/2023 External Result Encounter [facility] Department Unsolicited Bonifacio Lara DO [address] [place] [address] Social History Tobacco Use Types Packs/Day Years [...] Ayleen Zheng M.D.12/31/2023 12:14 PM Dictation Location: [place] [address] Tech: Nellie Solis Transcribed By: ADIA 12/31/23 1214 Dictated By: Ayleen Zhegn MD 12/31/23 1206 Signed By: <Electronically signed by MD Ayleen Zheng in OV> 12/31/23 1214 Narrative 12/31/2023 12:16 PM EDT [facility] [place] [address] Ultrasound Report Signed Patient: Darling Ohara MR#: [id number] 1872 : 1980 Acct:[id number] Age/Sex: 43 / F ADM Date: 12/31/23 Loc: Room: Type: [facility] Attending Dr: Bonifacio Lara DO Ordering Provider: [...] limited Procedure Note Radiology, Radiologist, - 12/31/2023 [facility] Main [place] [address] [place] [address] Ultrasound Report Signed Patient: Darling Ohara LMR#: [id number] : 1980Acct:[id number] Age/Sex: 43 / FADM Date: 12/31/23 Loc: Room:Type: [facility] Attending Dr: Bonifacio Lara DO Ordering Provider: [...] Ayleen Zheng M.D.12/31/2023 12:14 PM Dictation Location: [place] [address] Tech: [facility] Transcribed By: [facility] 12/31/23 1214 Dictated By: Ayleen Zheng MD 12/31/23 1206 Signed By: <Electronically signed by MD Ayleen Zheng in OV> 12/31/23 1214 us Bonifacio Lara DO IMG US PROCEDURES Final R esult documented in this encounter Visit Diagnoses Not on filedocumented in this encounter Care Teams Lithographic Platemaker Relationship Specialty Start Date End Date Peter Lozano DO PCP - General 01/25/23 documented as of this encounter
--- OUTSIDE RECORDS SUMMARY | 2025-03-04 07:44 | XMS_ITS | Clinical Summary ---
Author Organization [facility] Address [address] [place] [address] Phone Care Team Providers Care Clinical Trials Nurse Name Role Phone AcGuillermo silva Esteban HOOVER Primary Care Provider [phone] Social History Tobacco Use Types Packs/Day Years [...] (1 of 1 - Standard series) 1983 Hepatitis C Screening 2000 Hepatitis B Vaccines (1 of 3 - 19+ 3-dose series) 2001 HPV/Cotest 2003 DTaP/Tdap/Td Vaccines (1 - Tdap) 2004 HPV Vaccines (1 - 3-dose standard series) 2009 Mammogram 2022 Cervical Cancer Screening 12/29/2022 Pap [...] age to complete this topic Care Teams Clinical Trials Nurse Relationship Specialty Start Date End Date Guillermo Lozano DO PCP - General 11/30/15
--- OUTSIDE RECORDS SUMMARY | 2025-03-04 07:44 | XMS_ITS | Clinical Summary ---
Author Organization [facility] Address [address] [place] [address] Care Team Providers Care Search Specialist Name Role Phone Peter Lozano Agusto HOOVER Primary Care Provider [phone] Allergies Active Allergy Reactions Criticality Noted Date [...] N ot on file 06/30/2020 Data from: https://www.neighborhoodatlas.medicine.[facility].edu/. Last address used for calculation Not on [...] Cervical Cancer Screening 2003 Mammogram Screening 2022 Influenza Vaccine (#1) 2025 DTaP,Tdap,Td Vaccine (2 - Td or Tdap) 02/19/2028 Insurance [facility] MEDICAID Care Teams Search Specialist Relationship Specialty Start Date End Date Peter Lozano DO [address] [place] [address] PCP - General Family Medicine 11/22/15
--- OUTSIDE RECORDS SUMMARY | 2025-03-04 07:44 | XMS_ITS | Encounter Summary ---
Author Organization [facility] Address [address] [place] [address] Phone Care Team Providers Care Game Preserve Manager Name Role Phone Guillermo Lozano DO Primary Care Provider [phone] Encounter Details Date Type Department Care Team (Late st Contact Info) Description 03/25/2023 Patient Risk Score ACO Care Management [address] [place] [address] Social History Tobacco Use Types [...] on filedocumented in this encounter Care Teams Game Preserve Manager Relationship Specialty Start Date End Date Guillermo Lozano DO PCP - General 11/30/15 documented as of this encounter
--- OUTSIDE RECORDS SUMMARY | 2025-03-04 07:44 | XMS_ITS | Encounter Summary ---
Author Organization [facility] Address [address] [place] [address] Phone Care Team Providers Care Production Miner Name Role Phone Guillermo Lozano DO Primary Care Provider [phone] Encounter Details Date Type Department Care Team (Late st Contact Info) Description 02/22/2023 Patient Risk Score ACO Care Management [address] [place] [address] Social History Tobacco Use Types [...] on filedocumented in this encounter Care Teams Production Miner Relationship Specialty Start Date End Date Guillermo Lozano DO PCP - General 11/30/15 documented as of this encounter
--- OUTSIDE RECORDS SUMMARY | 2025-03-04 07:44 | XMS_ITS | Encounter Summary ---
Author Organization [facility] Address [address] [place] [address] Phone Care Team Providers Care Sales Representative Leather Goods Name Role Phone Guillermo Lozano DO Primary Care Provider [phone] Encounter Details Date Type Department Care Team (Late st Contact Info) Description 01/22/2023 Patient Risk Score ACO Care Management [address] [place] [address] Social History Tobacco Use Types [...] on filedocumented in this encounter Care Teams Sales Representative Leather Goods Relationship Specialty Start Date End Date Guillermo Lozano DO PCP - General 11/30/15 documented as of this encounter
--- OUTSIDE RECORDS SUMMARY | 2025-03-04 07:44 | XMS_ITS | CCD ---
Author Organization [facility] Providers Care Radioisotope Technician Name Role Phone DR PETER AHUMADA Primary Care Unavailable DR CHETAN RUDD Admitting Unavailable DR CHETAN RUDD Consulting Unavailable DR CHETAN RUDD Attending Unavailable Luz Marina Hernandez Consulting Unavailable Peter Ahumada DO Primary Care Provider Peter Ahumada Unavailable Acs, DO Peter Primary Care Provider Acs, DO Peter Attending Provider Kuns, DO Peter Primary Care Provider Kuns, DO Peter Attending Provider [phone] Kuns, DO Peter Primary Care Provider Kuns, DO Peter Attending Provider [phone] Rolando, [facility] [place] Emergency Provider Severo ([facility] [place] DELIA Orellana Attending Provider Acs, DO Peter Primary Care Provider Kuns, DO Peter Attending Provider Kuns, DO Peter Primary Care Provider Kuns, DO Peter Attending Provider [phone] Kuns, DO Peter Primary Care Provider Kuns, DO Peter Attending Provider Kuns, DO Peter Primary Care Provider Acs, DO Peter Referring Provider Self, Referral Attending Provider Unavailable MD Igor Rudd Emergency Provider [phone] Kuns, DO Peter Attending Provider Itzkowitz, DO Alber Attending Provider DO Chas Meza Attending Provider Kuns, DO Peter Primary Care Provider Kuns DO, Peter P Primary Care Provider Kuns, DO Peter Primary Care Provider Kuns, DO Peter Attending Provider JEAN CARLOS Martinez Attending Provider Peter Ahumada MD Primary Care Provider Blake HOOVER, Peter Primary Care Provider Peter Ahumada DO Attending Provider Yoli DPRobert Ascencio Attending Provider [phone] Kunshira HOOVER, Peter Primary Care Provider Yoli DPRobert Ascencio Attending Provider [phone] Blake DO, Peter Primary Care Provider Robert Martinez DPM Attending Provider Itzkoyahirtz DO, Alber Attending Provider ITZKOWITZ, ALBER H Attending Unavailable ITZKOYAHIRTZ, ALBER H Attending Unavailable ITZKOYAHIRTZ, ALBER H Attending Unavailable ITZKOWITZ, ALBER H Attending Unavailable ITZKOWITZ, ALBER H Attending Unavailable ITZKOWITZ, ALBER H Attending Unavailable RAHUL CASTILLO Attending Unavailable ROBERT MARTINEZ Referring Unavailable Peter Ahumada DO Primary Care Provider [phone] Peter Ahumada DO Attending Provider Peter Ahumada [...] Facility (13 sources) Indomethacin Drug Allergy 8 [facility] (14 sources) benzonatate Drug Allergy 4 diarrhea [facility] (6 sources) benzonatate Drug Allergy 3 GI intolerance [facility] Work Phone: (1 source) benzonatate Drug Allergy [address] [place] [address] Repository (1 source) Indomethacin Drug Allergy [address] [place] [address] Repository Medications Current Medications Medication Drug Class(es) Dates Sig (Normalized) Sig (Original) [id number] actuat albuterol 0.09 mg/actuat metered dose [...] six hours as needed for pain Hydrocodone-Acetaminophen (Gardiner) 5-325 mg tablet Discontinued 2 TAB PO [...] on above: TAKE 1 CAPSULE BY [facility] EVERY DAY 30 MINUTES BEFORE MORNING [...] 2:18pm Start: 11-05-2020 take 1 tablet by [facility] once daily as needed K-Dur 10 meq [...] 12-17-2023 Episodic Other aftercare (1 source) 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; Translations: [OTH [facility] CURRENT DRUG THERAPY] Onset: 1 Episodic Other [...] n 01-27-2025 MM screening mammo BI w/CAD [facility] [address] [place] [address] Mammography Report Signed Patient: Darling Khanna MR#: [id number] : 1980 Acct:[id number] Age/Sex: 44 / F Adm Date: 01/27/25 Loc: [place] Room: Type: [facility] Attending Dr: Peter Ahumada DO Ordering Provider: Peter Ahumada DO Date of Service: 01/27/25 Procedure(s): MM screening mammo BI w/CAD Accession Number(s): ([id number]) MM/MM screening mammo BI w/CAD: Z12.39 - [...] Stovall M.D. 01/27/2025 9:02 AM Dictation Location: [facility] Dictated By: Osmani Stovall DO 01/27/25 0859 Signed By: 01/27/25 0902 Normal [facility] Mammography reportOrdered By : Osmani Stovall on 01-27-2025 Diagnostic imaging study [facility] [address] [place] [address] Mammography Report Signed Patient: Darling Khanna MR#: [id number] : 1980 Acct:[id number] Age/Sex: 44 / F Adm Date: 5 Loc: [place] Room: Type: [facility] Attending Dr: Peter Ahumada DO Ordering Provider: Peter Ahumada DO Date of Service: 01/27/25 Procedure(s): MM screening mammo BI w/CAD Accession Number(s): ([id number]) MM/MM screening mammo BI w/CAD: Z12.39 - [...] Stovall M.D. 01/27/2025 9:02 AM Dictation Location: [facility] Dictated By: Osmani Stovall DO 01/27/25 0859 Signed By: 01/27/25 0902 [facility] A1C with Estimated Average G luon 12-05-2024 Glucose [Mass/Vol] 117 mg/dL Normal [facility] Comment on above: Result Comment: PERF ORMED BY: [place] [address] PATHOLOGIST TILE LAYER SUPERVISOR PADILLA LYMAN M.D. Performed By: #### A 1C WTH eA, LIPID, CMP, T4F, TSH3, CBC #### [place] [address] [place] Alanine aminotransferase [En zymatic activity/volume] in Serum or PlasmaOrdered By: Peter Ahumada on 12-05-2024 ALT [Catalytic activity/Vol] 6 U/L Low 7-52 [facility] Comment on above: Performed By: #### A 1C WTH eA, LIPID, CMP, T4F, TSH3, CBC #### [place] [address] [place] Albumin [Mass/volume] in Ser um or Plasma by Bromocresol green (BCG) dye binding methoOrdered By: Peter Ahumada on 12-05-2024 Albumin BCG dye [Mass/Vol] 3.7 g/dL 3.5-5.7 [facility] Alkaline phosphatase [Enzyma tic activity/volume] in Serum or PlasmaOrdered By: Peter Ahumada on 12-05-2024 ALP [Catalytic activity/Vol] 42 U/L Normal 34-104 [facility] Comment on above: Performed By: #### A 1C WTH eA, LIPID, CMP, T4F, TSH3, CBC #### [place] [id number] [place] Aspartate aminotransferase [ Enzymatic activity/volume] in Serum or PlasmaOrdered By: Peter Ahumada on 12-05-2024 AST [Catalytic activity/Vol] 12 U/L Low 13-39 [facility] Comment on above: Performed By: #### A 1C WT eA, LIPID, CMP, T4F, TSH3, CBC #### [facility] [address] Basophils [#/volume] in Bloo d by Automated countOrdered By: Peter Ahumada on 12-05-2024 Basophils (Bld) [#/Vol] 0.1 10*3/uL Normal 0.0-0.2 [facility] Comment on above: Result Comment: PERF ORMED BY: [place] [address] PATHOLOGIST TILE LAYER SUPERVISOR PADILLA LYMAN M.D. Performed By: #### A 1C WT eA, LIPID, CMP, T4F, TSH3, CBC #### [facility] [address] Basophils/100 leukocytes in Blood by Automated countOrdered By: Petre Ahumada on 12-05-2024 Basophils/100 WBC (Bld) 0.8 % Normal . [facility] Comment on above: Performed By: #### A 1C WT eA, LIPID, CMP, T4F, TSH3, CBC #### [facility] [address] Bilirubin.total [Mass/volume ] in Serum or PlasmaOrdered By: Peter Ahumada on 12-05-2024 Bilirubin [Mass/Vol] 0.3 mg/dL Normal 0.3-1.0 [facility] Comment on above: Performed By: #### A 1C WT eA, LIPID, CMP, T4F, TSH3, CBC #### [facility] [address] Blood estimated average gluc ose determination by estimation from glycated hemoglobinOrdered By: Peter Ahumada on 12-05-2024 Average glucose Estimated from glycated hemoglobin (Bld) [Mass/Vol] 117 mg/dL [facility] Calcium [Mass/volume] in Ser um or PlasmaOrdered By: Peter Ahumada on 12-05-2024 Calcium [Mass/Vol] 8.5 mg/dL Low 8.6-10.3 [facility] Comment on above: Performed By: #### A 1C WT eA, LIPID, CMP, T4F, TSH3, CBC #### [facility] [address] [place] [address] [place] Carbon dioxide, total [Moles /volume] in Serum or PlasmaOrdered By: Peter Ahumada on 12-05-2024 CO2 [Moles/Vol] 29.8 mmol/L Normal 21.0-31.0 [facility] Comment on above: Performed By: #### A 1C WT eA, LIPID, CMP, T4F, TSH3, CBC #### [facility] [address] [place] [address] [place] Chloride [Moles/volume] in S renetta or PlasmaOrdered By: Peter Ahumada on 12-05-2024 Chloride [Moles/Vol] 105 mmol/L Normal 98-107 [facility] Comment on above: Performed By: #### A 1C WT eA, LIPID, CMP, T4F, TSH3, CBC #### [facility] [address] [place] [address] [place] Cholesterol [Mass/volume] in Serum or PlasmaOrdered By: Peter Ahumada on 12-05-2024 Cholesterol [Mass/Vol] 151 mg/dL Normal 140-200 [facility] Comment on above: Chol less than 200 m g/dl low riskChol 201-239 mg/dl borderline riskChol 240 mg/dl and greater high risk Result Comment: Chol less than 200 mg/dl low risk Chol 201-239 mg/dl borderline risk Chol 240 mg/dl and greater high risk Performed By: #### A 1C WT eA, LIPID, CMP, T4F, TSH3, CBC #### [facility] [address] [place] [address] [place] Cholesterol in HDL [Mass/vol ume] in [...] eA, LIPID, CMP, T4F, TSH3, CBC #### [facility] [address] Cholesterol in LDL Calc [Mas [...] 12-05-2024 Cholesterol in VLDL [Mass/Vol] 16 mg/dL [facility] Complete Blood Count Auto Di ffon 12-05-2024 Mean Corpuscular HGB Conc 33.5 g/dL Normal 32.0-35.0 [facility] Comment on above: Performed By: #### A 1C WT eA, LIPID, CMP, T4F, TSH3, CBC #### [facility] [address] NRBC% 0.0 /100{WBC} Normal 0-0.5 [facility] Comment on above: Performed By: #### A 1C WTH eA, LIPID, CMP, T4F, TSH3, CBC #### [facility] [address] Comprehensive Metabolic Pane prasanth 12-05-2024 Albumin [Mass/Vol] 3.7 g/dL Normal 3.5-5.7 [facility] Comment on above: Performed By: #### A 1C WTH eA, LIPID, CMP, T4F, TSH3, CBC #### [facility] [address] [place] [address] [place] GFR/1.73 sq M.predicted MDRD (S/P/Bld) [Vol rate/Area] mL/min/{1.73_m2} Normal [facility] Comment on above: Performed By: #### A 1C WT eA, LIPID, CMP, T4F, TSH3, CBC #### [facility] [address] Creatinine [Mass/volume] in Serum or PlasmaOrdered By: Peter Ahumada on 12-05-2024 Creatinine [Mass/Vol] 0.50 mg/dL Low 0.60-1.20 [facility] Comment on above: Performed By: #### A 1C WT eA, LIPID, CMP, T4F, TSH3, CBC #### [facility] [address] [place] [address] [place] Eosinophils [#/volume] in Bl ood by Automated countOrdered By: Peter Ahumada on 12-05-2024 Eosinophils (Bld) [#/Vol] 0.1 10*3/uL Normal 0.0-0.45 [facility] Comment on above: Performed By: #### A 1C WT eA, LIPID, CMP, T4F, TSH3, CBC #### [facility] [address] [place] [address] [place] Eosinophils/100 leukocytes i n Blood by Automated countOrdered By: Peter Ahumada on 12-05-2024 Eosinophils/100 WBC (Bld) 1.7 % Normal . [facility] Comment on above: Performed By: #### A 1C WTH eA, LIPID, CMP, T4F, TSH3, CBC #### [facility] [address] [place] [address] [place] Erythrocyte distribution wid th [Ratio] by Automated countOrdered By: Peter Ahumada on 12-05-2024 Erythrocyte distribution width (RBC) [Ratio] 12.7 % Normal 11.9-15.3 [facility] Comment on above: Performed By: #### A 1C WTH eA, LIPID, CMP, T4F, TSH3, CBC #### [facility] [address] [place] [address] [place] Erythrocytes [#/volume] in B lood by Automated countOrdered By: Peter Ahumada on 12-05-2024 RBC (Bld) [#/Vol] 4.14 10*6/uL Normal 3.60-5.00 [facility] Comment on above: Performed By: #### A 1C WTH eA, LIPID, CMP, T4F, TSH3, CBC #### [facility] [address] [place] [id number] [place] Glucose [Mass/volume] in Ser um or PlasmaOrdered By: Peter Ahumada on 12-05-2024 Glucose [Mass/Vol] 98 mg/dL Normal 70-100 [facility] Comment on above: ADA recommended refe rence rangeRandom Glucose Reference Range is dependent on time and content of last meal. Glucose of more than 200 mg/dL in a nonstressed, ambulatory subject supports the diagnosis of Diabetes Mellitus. Result Comment: [place] om Glucose Reference Range is dependent on time and content of last meal. Glucose of more than 200 mg/dL in a nonstressed, ambulatory subject supports the diagnosis of Diabetes Mellitus. ADA recommended reference range Performed By: #### A 1C WTH eA, LIPID, CMP, T4F, TSH3, CBC #### [facility] [address] [place] [id number] [place] Hematocrit [Volume Fraction] of Blood by Automated countOrdered By: Peter Ahumada on 12-05-2024 Hematocrit (Bld) [Volume fraction] 36.1 % Normal 34.0-46.4 [facility] Comment on above: Performed By: #### A 1C WTH eA, LIPID, CMP, T4F, TSH3, CBC #### [facility] [address] [place] [id number] [facility] Hemoglobin A1c/Hemoglobin.to vince in BloodOrdered By: Peter Ahumada on 12-05-2024 HbA1c (Bld) [Mass fraction] 5.7 % High 4.3-5.6 [facility] Comment on above: Increased risk for d iabetes: 5.7 - 6.4diabetes: >6.4glycemic control for adults with diabetes: <7.0 Result Comment: Incr eased risk for diabetes: 5.7 - 6.4 diabetes: >6.4 glycemic control for adults with diabetes: <7.0 Performed By: #### A 1C [facility] eA, LIPID, CMP, T4F, TSH3, CBC #### [facility] [address] Hemoglobin [Mass/volume] in BloodOrdered By: Peter Ahumada on 12-05-2024 Hemoglobin (Bld) [Mass/Vol] 12.1 g/dL Normal 11.8-15.4 [facility] Comment on above: Performed By: #### A 1C WT eA, LIPID, CMP, T4F, TSH3, CBC #### [facility] [address] Leukocytes [#/volume] correc bryan for nucleated erythrocytes in Blood by Automated counOrdered By: Peter Ahumada on 12-05-2024 WBC corrected for nucl RBC Auto (Bld) [#/Vol] 7.1 10*3/uL 3.8-11.6 [facility] Leukocytes [#/volume] in Blo od by Automated countOrdered By: Peter Ahumada on 12-05-2024 WBC (Bld) [#/Vol] 7.1 10*3/uL Normal 3.8-11.6 [facility] Comment on above: Performed By: #### A 1C [facility] eA, LIPID, CMP, T4F, TSH3, CBC #### [facility] [address] Lipid Panelon 12-05-2024 LDL Cholesterol,Calculated 84 mg/dL Normal 0-100 [facility] Comment on above: Result Comment: LDL ATP III CLASSIFICATION LDL less than 100 mg/dL Optimal LDL 100-129 mg/dL Near or above optimal LDL 130-159 mg/dL Borderline high LDL 160-189 mg/dL High LDL greater than 189 mg/dL Very high Performed By: #### A 1C WT eA, LIPID, CMP, T4F, TSH3, CBC #### [facility] [address] Triglyceride w/Reflex 83 mg/dL Normal 0-149 [facility] Comment on above: Result Comment: TRIG ATP III CLASSIFICATION TRIG less than 150 mg/dL Normal TRIG 150-199 mg/dL Borderline high TRIG 200-500 mg/dL High TRIG greater than 500 mg/dL Very high Standard traceable to the Center for Disease Conrtrol and Prevention (CDC) test method. Performed By: #### A 1C WT eA, LIPID, CMP, T4F, TSH3, CBC #### [address] VLDL CHOLESTEROL 16 mg/dL Normal [facility] Comment on above: Performed By: #### A 1C WT eA, LIPID, CMP, T4F, TSH3, CBC #### [address] Lymphocytes [#/volume] in Bl ood by Automated countOrdered By: Peter Ahumada on 12-05-2024 Lymphocytes (Bld) [#/Vol] 1.7 10*3/uL Normal 1.00-4.8 [facility] Comment on above: Performed By: #### A 1C WT eA, LIPID, CMP, T4F, TSH3, CBC #### [address] Lymphocytes/100 leukocytes i n Blood by Automated countOrdered By: Peter Ahumada on 12-05-2024 Lymphocytes/100 WBC (Bld) 23.9 % Normal . [facility] Comment on above: Performed By: #### A 1C WT eA, LIPID, CMP, T4F, TSH3, CBC #### [address] MCH [Entitic mass] by Automa byran countOrdered By: Peter Ahumada on 12-05-2024 MCH (RBC) [Entitic mass] 29.1 pg Normal 24.7-34.3 [facility] Comment on above: Performed By: #### A 1C WT eA, LIPID, CMP, T4F, TSH3, CBC #### [address] MCHC Auto (RBC) [Mass/Vol]Or dered By: Peter Ahmuada on 12-05-2024 MCHC (RBC) [Mass/Vol] 33.5 g/dL 32.0-35.0 [facility] MCV [Entitic volume] by Auto mated countOrdered By: Peter Ahumada on 12-05-2024 MCV (RBC) [Entitic vol] 87.0 fL Normal 80-100 [facility] Comment on above: Performed By: #### A 1C WTH eA, LIPID, CMP, T4F, TSH3, CBC #### [facility] [address] [place] [address] [place] Monocytes [#/volume] in Bloo d by Automated countOrdered By: Peter Ahumada on 12-05-2024 Monocytes (Bld) [#/Vol] 0.5 10*3/uL Normal 0.0-0.8 [facility] Comment on above: Performed By: #### A 1C WTH eA, LIPID, CMP, T4F, TSH3, CBC #### [facility] [address] [place] [address] [place] Monocytes/100 leukocytes in Blood by Automated countOrdered By: Petre Ahumada on 12-05-2024 Monocytes/100 WBC (Bld) 7.2 % Normal . [facility] Comment on above: Performed By: #### A 1C WT eA, LIPID, CMP, T4F, TSH3, CBC #### [place] [address] [place] Neutrophils [#/volume] in Bl ood by Automated countOrdered By: Peter Ahumada on 12-05-2024 Neutrophils (Bld) [#/Vol] 4.7 10*3/uL Normal 1.8-7.7 [facility] Comment on above: Performed By: #### A 1C WTH eA, LIPID, CMP, T4F, TSH3, CBC #### [facility] [address] [place] [address] [place] Neutrophils/100 leukocytes i n Blood by Automated countOrdered By: Peter Ahumada on 12-05-2024 Neutrophils/100 WBC (Bld) 66.4 % Normal . [facility] Comment on above: Performed By: #### A 1C WTH eA, LIPID, CMP, T4F, TSH3, CBC #### [address] No Panel InformationOrdered By: Peter Ahumada on 12-05-2024 Estimated GFR (CKD-EPI) > 60.0 mL/Min [facility] Creatinine Clearance (Chem N/A [facility] Nucleated erythrocytes [Pres ence] in Blood by Automated countOrdered By: Peter Ahumada on 12-05-2024 Nucleated RBC Auto Ql (Bld) 0.0 /100{WBC} 0-0.5 [facility] Platelet mean volume [Entiti c volume] in Blood by Automated countOrdered By: Peter Ahumada on 12-05-2024 Platelet mean volume (Bld) [Entitic vol] 7.7 fL Normal 6.3-10.7 [facility] Comment on above: Performed By: #### A 1C WT eA, LIPID, CMP, T4F, TSH3, CBC #### [facility] [address] [place] [address] [place] Platelets [#/volume] in Bloo d by Automated countOrdered By: Peter Ahumada on 12-05-2024 Platelets (Bld) [#/Vol] 296 10*3/uL Normal 150-450 [facility] Comment on above: Performed By: #### A 1C WT eA, LIPID, CMP, T4F, TSH3, CBC #### [facility] [address] [place] [address] [place] Potassium [Moles/volume] in Serum or PlasmaOrdered By: Peter Ahumada on 12-05-2024 Potassium [Moles/Vol] 4.4 mmol/L Normal 3.5-5.1 [facility] Comment on above: Performed By: #### A 1C WT eA, LIPID, CMP, T4F, TSH3, CBC #### [facility] [address] [place] [address] [place] Protein [Mass/volume] in Ser um or PlasmaOrdered By: Peetr Ahumada on 12-05-2024 Protein [Mass/Vol] 6.0 g/dL Low 6.4-8.9 [facility] Comment on above: Performed By: #### A 1C WT eA, LIPID, CMP, T4F, TSH3, CBC #### [facility] [address] Serum globulin measurement b y calculation (mass/volume)Ordered By: Peter Ahumada on 12-05-2024 Globulin (S) [Mass/Vol] 2.3 g/dL Normal [facility] Comment on above: Performed By: #### A 1C WT eA, LIPID, CMP, T4F, TSH3, CBC #### [facility] [address] Serum or plasma albumin/glob ulin mass ratioOrdered By: Peter Ahumada on 12-05-2024 Albumin/Globulin [Mass ratio] 1.6 {ratio} Normal [facility] Comment on above: Performed By: #### A 1C WT eA, LIPID, CMP, T4F, TSH3, CBC #### [address] Serum or plasma anion gap de terminationOrdered By: Peter Ahumada on 12-05-2024 Anion gap [Moles/Vol] 8.6 mmol/L Normal 6.0-15.0 [facility] Comment on above: Performed By: #### A 1C WT eA, LIPID, CMP, T4F, TSH3, CBC #### [facility] [address] [place] [address] Serum or plasma total choles terol/high density lipoprotein (HDL) cholesterol mass ratOrdered By: Peter Ahumada on 12-05-2024 Cholesterol.total/Chol esterol in HDL [Mass ratio] 3.0 {ratio} Normal <5.0 [facility] Comment on above: Performed By: #### A 1C WT eA, LIPID, CMP, T4F, TSH3, CBC #### [facility] [address] Sodium [Moles/volume] in Ser um or PlasmaOrdered By: Peter Ahumada on 12-05-2024 Sodium [Moles/Vol] 139 mmol/L Normal 136-145 [facility] Comment on above: Performed By: #### A 1C WTH eA, LIPID, CMP, T4F, TSH3, CBC #### [facility] [address] [place] [address] Thyrotropin [Units/volume] i n Serum or PlasmaOrdered By: Peter Ahumada on 12-05-2024 TSH Qn 0.30 m[IU]/L Low 0.45-5.33 [facility] Comment on above: Result Comment: PERF ORMED BY: [place] [address] PATHOLOGIST TILE LAYER SUPERVISOR PADILLA LYMAN M.D. Performed By: #### A 1C WTH eA, LIPID, CMP, T4F, TSH3, CBC #### [facility] [address] Thyroxine (T4) free [Mass/vo lume] in Serum or PlasmaOrdered By: Peter Ahumada on 12-05-2024 Free T4 [Mass/Vol] 1.01 ng/dL Normal 0.61-1.12 [facility] Comment on above: Performed By: #### A 1C WTH eA, LIPID, CMP, T4F, TSH3, CBC #### [facility] [address] Triglyceride [Mass/volume] i n Serum or PlasmaOrdered By: Peter Ahumada on 12-05-2024 Triglyceride [Mass/Vol] 83 mg/dL 0-149 [facility] Comment on above: TRIG ATP III CLASSIF ICATIONTRIG less than 150 mg/dL NormalTRIG 150-199 mg/dL Borderline highTRIG 200-500 mg/dL High TRIG greater than 500 mg/dL Very highStandard traceable to the Center for Disease Conrtrol and Prevention (CDC) test method. Urea nitrogen [Mass/volume] in Serum or PlasmaOrdered By: Peter Ahumada on 12-05-2024 Urea nitrogen [Mass/Vol] 16 mg/dL Normal 7-25 [facility] Comment on above: Performed By: #### A 1C WTH eA, LIPID, CMP, T4F, TSH3, CBC #### [facility] [address] Pathology study report docum entOrdered By: Adolfo Madrid on 09-30-2024 Pathology study [facility] Other Phone: Prasanth 09-29-2024 L ---- Specimen: [id number] Received: 09/29/24 Status: JORGE Bergman Num: [id number] Spec Type: Surgical Subm Dr: Alber Haines DO Tissues: A Skin Cyst (RT CHEST CYSTIC WALL) Procedures: Luma RAMIREZ/Fabiana L3 Age/ Patient Sex Location Account Attending Physician Darling Khanna 44/F ELIUD [id number] Alber Haines DO SPEC NUM: [id number] RECD: 09/29/24 STATUS: JORGE BERGMAN NUM: [id number] ALISTAIR: 09/29/24- SUBM DR: Alber Haines DO ENTERED: 09/29/24-1 [facility] DR: Alexis Baeza [facility] SPEC TYPE: Surgical DEPT: S ORDERED: HE, [...] submitted in a single cassette. (1, ns, [id number]) NOEL Specimen: [id number] Received: 09/29/24 Status: JORGE Bergman Num: [id number] Spec Type: Surgical Subm Dr: Alber Haines DO Tissues: A Skin Cyst (RT CHEST CYSTIC WALL) Procedures: ASHLEY, Gross/Micro L3 Patient: MaydaDarling [id number] (Continued) Specimen: [id number] Received: 09/29/24 (Continued) Signed (signature on file) Adolfo Madrid MD 09/30/24 1501 Specimen: [id number] Received: 09/29/24 Status: JORGE Bergman Num: [id number] Spec Type: Surgical Subm Dr: Alber Haines DO Tissues: A Skin Cyst (RT CHEST CYSTIC WALL) Procedures: Luma RAMIREZ/Fabiana L3 Patient: MaudenelsonDarling [id number] (Continued) Specimen: [id number] Received: 09/29/24 (Continued) Microscopic Description Microscopic examinations are performed supporting the above interpretation CPT Codes 07714 Specimen: [id number] Received: 09/29/24 Status: JORGE Bergman Num: [id number] Spec Type: Surgical Subm Dr: Alber Haines DO Tissues: A Skin Cyst (RT CHEST CYSTIC WALL) Procedures: Luma RAMIREZ/Fabiana L3 Patient: Darling Khanna [id number] (Continued) Signed (signature on file) Adolfo Madrid MD 09/30/24 1501 Normal [facility] MR ankle LT wo perry 024 MR ankle LT wo con [facility] [place] [address] MRI Report Signed Patient: Darling Khanna MR#: [id number] 1872 : 1980 Acct:[id number] Age/Sex: 44 / F ADM Date: 06/04/24 Loc: MR Room: Type: [facility] Attending Dr: Robert Martinez DPM, MS Copies [...] Osmani Stovall M.D.06/04/2024 10:29 PM Dictation Location: [place] [address] Transcribed By: [facility] 06/04/242228 Dictated By: Osmani Stovall DO 06/04/242217 Signed By: 06/04/242228 Normal [facility] Magnetic resonance imaging r eportOrdered By: Osmani Stovall on 06-04-2024 Study report [facility] Main [place] [address] [place] [address] MRI Report Signed Patient: Darling Khanna MR#: [id number] : 1980 Acct:[id number] Age/Sex: 44 / F ADM Date: 4 Loc: MR Room: Type: [facility] Attending Dr: Robert Martinez DPM, MS Copies [...] Osmani Stovall M.D.06/04/2024 10:29 PM Dictation Location: [place] [address] Transcribed By: [facility] 06/04/242228 Dictated By: Osmani Stovall DO 06/04/242217 Signed By: 06/04/242228 [facility] X-ray reportOrdered By: Vikas Stovall on 06-04-2024 Study report [facility] [address] [place] [address] [place] [address] XRay Report Signed Patient: Darling Khanna MR#: [id number] : 1980 Acct:[id number] Age/Sex: 44 / F ADM Date: 4 Loc: MR Room: Type: [facility] Attending Dr: Robert Martinez DPM, MS Copies [...] Osmani Stovall M.D.06/04/2024 11:51 PM Dictation Location: [place] [address] Transcribed By: [facility] 06/04/242350 Dictated By: Osmani Stovall DO 06/04/242350 Signed By: 06/04/242350 [facility] XR pre/post mri xrayon 06-04 XR pre/post mri xray [facility] [place] [address] XRay Report Signed Patient: Darling Khanna MR#: [id number] 1872 : 1980 Acct:[id number] Age/Sex: 44 / F ADM Date: 06/04/24 Loc: Room: Type: [facility] Attending Dr: Robert Martinez DPM, MS Copies [...] Osmani Stovall M.D.06/04/2024 11:51 PM Dictation Location: [facility] Transcribed By: [facility] 06/04/242350 Dictated By: Osmani Stovall DO 06/04/242350 Signed By: 06/04/242350 Normal [facility] EMG 2 Extremitieson 05-22-20 24 S1 radiculopathy, le ft, mild [facility] -12 Nerveson 4 S1 radiculopathy, le ft, mild [facility] [place] upper GI w air*on 024 FL upper GI w air* [facility] Main [address] [address] Fluoroscopy Report Signed Patient: Darling Khanna MR#: [id number] 1872 : 1980 Acct:[id number] Age/Sex: 43 / F ADM Date: 03/12/24 Loc: UL Room: Type: [facility] CLI Attending Dr: Peter Ahumada DO [...] Osmani Stovall M.D.03/12/2024 2:09 PM Dictation Location: [place] [address] Transcribed By: [facility] 03/12/24 1409 Dictated By: Osmani Stovall DO 03/12/24 1040 Signed By: 03/12/24 1409 Normal [facility] US gall bladderon 03-12-2024 US gall bladder [facility] Main [address] [address] Ultrasound Report Signed Patient: Darling Khanna MR#: [id number] 1872 : 1980 Acct:[id number] Age/Sex: 43 / F ADM Date: 03/12/24 Loc: Room: Type: [facility] CLI Attending Dr: Peter Ahumada DO [...] Osmani Stovall M.D.03/12/2024 10:39 AM Dictation Location: [place] [address] Tech: Nellie Solis Transcribed By: ADIA 03/12/24 1039 Dictated By: Osmani Stovall DO 03/12/24 1036 Signed By: 03/12/24 1039 Normal [facility] A1C with Estimated Average G terrell 03-05-2024 Glucose [Mass/Vol] 128 mg/dL Normal [facility] Comment on above: Result Comment: PERF ORMED BY: [facility] [address] [place] [id number] PATHOLOGIST TILE LAYER SUPERVISOR ALVIN VIDES M.D. Performed By: #### T 4F, CBC, TSH3, A1C [facility] eA, LIPID, CMP ####[facility] [place] [address] [facility] Alanine aminotransferase [En zymatic activity/volume] in Serum or PlasmaOrdered By: Peter Ahumada on 03-05-2024 ALT [Catalytic activity/Vol] 10 U/L Normal 7-52 [facility] Comment on above: Performed By: #### T 4F, CBC, TSH3, A1C [facility] eA, LIPID, CMP ####[facility] [place] [address] Albumin [Mass/volume] in Ser um or [...] CBC, TSH3, A1C WTH eA, LIPID, CMP ####[facility] Aspartate aminotransferase [ Enzymatic activity/volume] in Serum or PlasmaOrdered By: Peter Ahumada on 03-05-2024 AST [Catalytic activity/Vol] 20 U/L Normal 13-39 [facility] Comment on above: Performed By: #### T 4F, CBC, TSH3, A1C WTH eA, LIPID, CMP ####[facility] Automated basophil %Ordered By: Peter Ahumada on 03-05-2024 Basophils/100 WBC (Bld) 0.7 % Normal . [facility] Comment on above: Performed By: #### T 4F, CBC, TSH3, A1C WTH eA, LIPID, CMP #### [facility] [address] Automated basophil countOrde red By: Peter Ahumada on 03-05-2024 Basophils (Bld) [#/Vol] 0.0 10*3/uL Normal 0.0-0.2 [facility] Comment on above: Result Comment: PERF ORMED BY: [facility] [address] [place] [address] PATHOLOGIST TILE LAYER SUPERVISOR ALVIN VIDES M.D. Performed By: #### T 4F, CBC, TSH3, A1C WTH eA, LIPID, CMP #### [facility] [address] Automated blood monocyte cou ntOrdered By: Peter Ahumada on 03-05-2024 Monocytes (Bld) [#/Vol] 0.5 10*3/uL Normal 0.0-0.8 [facility] Comment on above: Performed By: #### T 4F, CBC, TSH3, A1C WTH eA, LIPID, CMP #### [facility] [address] Automated eosinophil %Ordere d By: Peter Ahumada on 03-05-2024 Eosinophils/100 WBC (Bld) 2.2 % Normal . [facility] Comment on above: Performed By: #### T 4F, CBC, TSH3, A1C WTH eA, LIPID, CMP #### [facility] [address] Automated eosinophil countOr dered By: Peter Ahumada on 03-05-2024 Eosinophils (Bld) [#/Vol] 0.1 10*3/uL Normal 0.0-0.45 [facility] Comment on above: Performed By: #### T 4F, CBC, TSH3, A1C WTH eA, LIPID, CMP #### [facility] [address] Automated monocyte %Ordered By: Peter Ahumada on 03-05-2024 Monocytes/100 WBC (Bld) 7.5 % Normal . [facility] Comment on above: Performed By: #### T 4F, CBC, TSH3, A1C WTH eA, LIPID, CMP #### [facility] [address] Automated neutrophil %Ordere d By: Peter Ahumada on 03-05-2024 Neutrophils/100 WBC (Bld) 53.3 % Normal . [facility] Comment on above: Performed By: #### T 4F, CBC, TSH3, A1C WTH eA, LIPID, CMP #### [facility] [address] Bilirubin.total [Mass/volume ] in Serum or PlasmaOrdered By: Peter Ahumada on 03-05-2024 Bilirubin [Mass/Vol] 0.4 mg/dL Normal 0.3-1.0 [facility] Comment on above: Performed By: #### T 4F, CBC, TSH3, A1C WTH eA, LIPID, CMP ####[place] [address] [place] [address] [place] Calcium [Mass/volume] in Ser um or PlasmaOrdered By: Peter Ahumada on 03-05-2024 Calcium [Mass/Vol] 8.9 mg/dL Normal 8.6-10.3 [facility] Comment on above: Performed By: #### T 4F, CBC, TSH3, A1C WTH eA, LIPID, CMP ####[address] [address] [facility] Carbon dioxide, total [Moles /volume] in Serum or PlasmaOrdered By: Peter Ahumada on 03-05-2024 CO2 [Moles/Vol] 28.7 mmol/L Normal 21.0-31.0 [facility] Comment on above: Performed By: #### T 4F, CBC, TSH3, A1C WTH eA, LIPID, CMP ####[place] [id number] [place] Chloride [Moles/volume] in S renetta or PlasmaOrdered By: Peter Ahumada on 03-05-2024 Chloride [Moles/Vol] 103 mmol/L Normal 98-107 [facility] Comment on above: Performed By: #### T 4F, CBC, TSH3, A1C WTH eA, LIPID, CMP ####[place] [id number] [facility] Cholesterol [Mass/volume] in Serum or PlasmaOrdered By: Peter Ahumada on 03-05-2024 Cholesterol [Mass/Vol] 166 mg/dL Normal 140-200 [facility] Comment on above: Chol less than 200 m g/dl low riskChol 201-239 mg/dl borderline riskChol 240 mg/dl and greater high risk Result Comment: Chol less than 200 mg/dl low risk Chol 201-239 mg/dl borderline risk Chol 240 mg/dl and greater high risk Performed By: #### T 4F, CBC, TSH3, A1C WTH eA, LIPID, CMP ####[place] [id number] [place] Cholesterol in LDL Calc [Mas s/Vol]Ordered [...] 33.6 g/dL Normal 32.0-35.0 [facility] Comment on above: Performed By: #### T 4F, CBC, TSH3, A1C WTH eA, LIPID, CMP #### [facility] [address] NRBC% 0.1 /100{WBC} Normal 0-0.5 [facility] Comment on above: Performed By: #### T 4F, CBC, TSH3, A1C WTH eA, LIPID, CMP #### [facility] [address] Comprehensive Metabolic Pane prasanth 03-05-2024 Albumin [Mass/Vol] 4.0 g/dL Normal 3.5-5.7 [facility] Comment on above: Performed By: #### T 4F, CBC, TSH3, A1C WTH eA, LIPID, CMP ####[facility] [place] [address] [place] GFR/1.73 sq M.predicted MDRD (S/P/Bld) [Vol rate/Area] mL/min/{1.73_m2} Normal [facility] Comment on above: Performed By: #### T 4F, CBC, TSH3, A1C WTH eA, LIPID, CMP ####[place] [address] [address] Creatinine [Mass/volume] in Serum or PlasmaOrdered By: Peter Ahumada on 03-05-2024 Creatinine [Mass/Vol] 0.63 mg/dL Normal 0.60-1.20 [facility] Comment on above: Performed By: #### T 4F, CBC, TSH3, A1C WTH eA, LIPID, CMP ####[facility] [id number] Erythrocyte distribution wid th [Ratio] by Automated countOrdered By: Peter Ahumada on 03-05-2024 Erythrocyte distribution width (RBC) [Ratio] 13.4 % Normal 11.9-15.3 [facility] Comment on above: Performed By: #### T 4F, CBC, TSH3, A1C WTH eA, LIPID, CMP #### [facility] [address] Erythrocytes [#/volume] in B lood by Automated countOrdered By: Peter Ahumada on 03-05-2024 RBC (Bld) [#/Vol] 4.44 10*6/uL Normal 3.60-5.00 [facility] Comment on above: Performed By: #### T 4F, CBC, TSH3, A1C WTH eA, LIPID, CMP #### [facility] [address] [place] [address] [place] Glucose [Mass/volume] in Ser um or PlasmaOrdered By: Peter Ahumada on 03-05-2024 Glucose [Mass/Vol] 96 mg/dL Normal 70-100 [facility] Comment on above: ADA recommended refe rence rangeRandom Glucose Reference Range is dependent on time and content of last meal. Glucose of more than 200 mg/dL in a nonstressed, ambulatory subject supports the diagnosis of Diabetes Mellitus. Result Comment: [place] om Glucose Reference Range is dependent on time and content of last meal. Glucose of more than 200 mg/dL in a nonstressed, ambulatory subject supports the diagnosis of Diabetes Mellitus. ADA recommended reference range Performed By: #### T 4F, CBC, TSH3, A1C WTH eA, LIPID, CMP ####[facility] [id number] [place] [id number] [facility] Glucose mean value [Mass/vol ume] in [...] TSH3, A1C WTH eA, LIPID, CMP #### [facility] [address] Hemoglobin A1c percentageOrd ered By: Peter [...] CBC, TSH3, A1C WTH eA, LIPID, CMP ####[facility] [id number] Hemoglobin [Mass/volume] in BloodOrdered By: Peter Ahumada on 03-05-2024 Hemoglobin (Bld) [Mass/Vol] 12.5 g/dL Normal 11.8-15.4 [facility] Comment on above: Performed By: #### T 4F, CBC, TSH3, A1C WTH eA, LIPID, CMP #### [facility] [address] Leukocytes [#/volume] correc bryan for nucleated erythrocytes in Blood by Automated counOrdered By: Peter Ahumada on 03-05-2024 WBC corrected for nucl RBC Auto (Bld) [#/Vol] 6.2 10*3/uL 3.8-11.6 [facility] Leukocytes [#/volume] in Blo od by Automated countOrdered By: Peter Ahumada on 03-05-2024 WBC (Bld) [#/Vol] 6.2 10*3/uL Normal 3.8-11.6 [facility] Comment on above: Performed By: #### T 4F, CBC, TSH3, A1C WTH eA, LIPID, CMP #### [facility] [address] Lipid Panelon 03-05-2024 LDL Cholesterol,Calculated 76 mg/dL Normal 0-100 [facility] Comment on above: Result Comment: LDL ATP III CLASSIFICATION LDL less than 100 mg/dL Optimal LDL 100-129 mg/dL Near or above optimal LDL 130-159 mg/dL Borderline high LDL 160-189 mg/dL High LDL greater than 189 mg/dL Very high Performed By: #### T 4F, CBC, TSH3, A1C WTH eA, LIPID, CMP ####[facility] [address] Triglyceride w/Reflex 202 mg/dL High 0-149 [facility] Comment on above: Result Comment: TRIG ATP III CLASSIFICATION TRIG less than 150 mg/dL Normal TRIG 150-199 mg/dL Borderline high TRIG 200-500 mg/dL High TRIG greater than 500 mg/dL Very high Standard traceable to the Center for Disease Conrtrol and Prevention (CDC) test method. Performed By: #### T 4F, CBC, TSH3, A1C WTH eA, LIPID, CMP ####[facility] [address] VLDL CHOLESTEROL 40 mg/dL Normal [facility] Comment on above: Performed By: #### T 4F, CBC, TSH3, A1C WTH eA, LIPID, CMP ####[facility] [address] Lymphocytes [#/volume] in Bl ood by Automated countOrdered By: Peter Ahumada on 03-05-2024 Lymphocytes (Bld) [#/Vol] 2.2 10*3/uL Normal 1.00-4.8 [facility] Comment on above: Performed By: #### T 4F, CBC, TSH3, A1C WTH eA, LIPID, CMP #### [facility] [address] Lymphocytes/100 leukocytes i n Blood by Automated countOrdered By: Peter Ahumada on 03-05-2024 Lymphocytes/100 WBC (Bld) 36.3 % Normal . [facility] Comment on above: Performed By: #### T 4F, CBC, TSH3, A1C WTH eA, LIPID, CMP #### [facility] [address] MCH [Entitic mass] by Automa bryan countOrdered By: Peter Ahumada on 03-05-2024 MCH (RBC) [Entitic mass] 28.2 pg Normal 24.7-34.3 [facility] Comment on above: Performed By: #### T 4F, CBC, TSH3, A1C WTH eA, LIPID, CMP #### [facility] [address] MCHC Auto (RBC) [Mass/Vol]Or dered By: Peter Ahumada on 03-05-2024 MCHC (RBC) [Mass/Vol] 33.6 g/dL 32.0-35.0 [facility] MCV [Entitic volume] by Auto mated countOrdered By: Peter Ahumada on 03-05-2024 MCV (RBC) [Entitic vol] 83.8 fL Normal 80-100 [facility] Comment on above: Performed By: #### T 4F, CBC, TSH3, A1C WTH eA, LIPID, CMP #### [address] Neutrophils [#/volume] in Bl ood by Automated countOrdered By: Peter Ahumada on 03-05-2024 Neutrophils (Bld) [#/Vol] 3.3 10*3/uL Normal 1.8-7.7 [facility] Comment on above: Performed By: #### T 4F, CBC, TSH3, A1C WTH eA, LIPID, CMP #### [facility] [address] No Panel InformationOrdered By: Peter Ahumada [...] TSH3, A1C WTH eA, LIPID, CMP #### [facility] [address] Platelets [#/volume] in Bloo d by Automated countOrdered By: Peter Ahumada on 03-05-2024 Platelets (Bld) [#/Vol] 333 10*3/uL Normal 150-450 [facility] Comment on above: Performed By: #### T 4F, CBC, TSH3, A1C WTH eA, LIPID, CMP #### [facility] [address] Potassium [Moles/volume] in Serum or PlasmaOrdered By: Peter Ahumada on 03-05-2024 Potassium [Moles/Vol] 3.8 mmol/L Normal 3.5-5.1 [facility] Comment on above: Performed By: #### T 4F, CBC, TSH3, A1C WTH eA, LIPID, CMP ####[facility] [id number] Protein [Mass/volume] in Ser um or PlasmaOrdered By: Peter Ahumada on 03-05-2024 Protein [Mass/Vol] 6.7 g/dL Normal 6.4-8.9 [facility] Comment on above: Performed By: #### T 4F, CBC, TSH3, A1C WTH eA, LIPID, CMP ####[facility] [id number] Serum globulin measurement b y calculation (mass/volume)Ordered By: Peter Ahumada on 03-05-2024 Globulin (S) [Mass/Vol] 2.7 g/dL Normal [facility] Comment on above: Performed By: #### T 4F, CBC, TSH3, A1C WTH eA, LIPID, CMP ####[place] [id number] Serum or plasma albumin/glob ulin mass ratioOrdered By: Peter Ahumada on 03-05-2024 Albumin/Globulin [Mass ratio] 1.5 {ratio} Normal [facility] Comment on above: Performed By: #### T 4F, CBC, TSH3, A1C WT eA, LIPID, CMP ####[address] Serum or plasma anion gap de terminationOrdered By: Peter Ahumada on 03-05-2024 Anion gap [Moles/Vol] 11.1 mmol/L Normal 6.0-15.0 [facility] Comment on above: Performed By: #### T 4F, CBC, TSH3, A1C WTH eA, LIPID, CMP ####[address] Serum or plasma high density lipoprotein [...] CBC, TSH3, A1C WTH eA, LIPID, CMP ####[address] Serum or plasma total choles terol/high density lipoprotein (HDL) cholesterol mass ratOrdered By: Peter Ahumada on 03-05-2024 Cholesterol.total/Chol esterol in HDL [Mass ratio] 3.3 {ratio} Normal <5.0 [facility] Comment on above: Performed By: #### T 4F, CBC, TSH3, A1C WTH eA, LIPID, CMP ####[address] Sodium [Moles/volume] in Ser um or PlasmaOrdered By: Peter Ahumada on 03-05-2024 Sodium [Moles/Vol] 139 mmol/L Normal 136-145 [facility] Comment on above: Performed By: #### T 4F, CBC, TSH3, A1C WTH eA, LIPID, CMP ####[place] [address] [place] [id number] [facility] Thyrotropin [Units/volume] i n Serum or PlasmaOrdered By: Peter Ahumada on 03-05-2024 TSH Qn 0.29 m[IU]/L Low 0.45-5.33 [facility] Comment on above: Result Comment: PERF ORMED BY: [facility] [address] [place] [id number] PATHOLOGIST TILE LAYER SUPERVISOR ALVIN VIDES M.D. Performed By: #### T 4F, CBC, TSH3, A1C WTH eA, LIPID, CMP ####[place] [address] [place] [id number] [facility] Thyroxine (T4) free [Mass/vo lume] in Serum or PlasmaOrdered By: Peter Ahumada on 03-05-2024 Free T4 [Mass/Vol] 0.81 ng/dL Normal 0.61-1.12 [facility] Comment on above: Performed By: #### T 4F, CBC, TSH3, A1C WTH eA, LIPID, CMP ####[place] [address] [place] [id number] [facility] Triglyceride [Mass/volume] i n Serum or [...] CBC, TSH3, A1C WTH eA, LIPID, CMP ####[facility] [id number] [place] [address] [facility] XR elbow RT 2Von 02-13-2024 XR elbow RT 2V [facility] [address] [place] [address] XRay Report Signed Patient: Darling Khanna MR#: [id number] 1872 : 1980 Acct:[id number] Age/Sex: 43 / F ADM Date: 02/13/24 Loc: [facility] Room: Type: [facility] Attending Dr: Chas Meza DO Copies to: [...] Osmani Stovall M.D.02/13/2024 4:07 PM Dictation Location: [place] [address] Transcribed By: [facility] 02/13/24 1607 Dictated By: Osmani Stovall DO 02/13/24 1607 Signed By: 02/13/24 1607 Normal [facility] HCG ( test) IA.rapi d Ql (U)Ordered By: Rahul Rogers on 01-29-2024 HCG ( test) Ql (U) Negative [facility] Thyrotropin [Units/volume] i n Serum or PlasmaOrdered By: Peter Ahumada on 08-22-2023 TSH Qn 0.15 m[IU]/L 0.45-5.33 [facility] Thyroxine (T4) free [Mass/vo lume] in Serum or PlasmaOrdered By: Peter Ahumada on 08-22-2023 Free T4 [Mass/Vol] 0.97 ng/dL 0.61-1.12 [facility] Alanine aminotransferase [En zymatic activity/volume] in Serum [...] on 05-25-2023 Bilirubin [Mass/Vol] 0.3 mg/dL 0.3-1.0 [facility] Calcium [Mass/volume] in Ser um or PlasmaOrdered By: Peter Ahumada on 05-25-2023 Calcium [Mass/Vol] 8.8 mg/dL 8.6-10.3 [facility] Carbon dioxide, total [Moles /volume] in Serum or PlasmaOrdered By: Peter Ahumada on 05-25-2023 CO2 [Moles/Vol] 29.9 mmol/L 21.0-31.0 [facility] Chloride [Moles/volume] in S renetta or PlasmaOrdered By: Peter Ahumada on 05-25-2023 Chloride [Moles/Vol] 107 mmol/L 98-107 [facility] Cholesterol [Mass/volume] in Serum or PlasmaOrdered By: Peter Ahumada on 05-25-2023 Cholesterol [Mass/Vol] 181 mg/dL 140-200 [facility] Comment on above: Chol less than [...] on 05-25-2023 Creatinine [Mass/Vol] 0.59 mg/dL 0.60-1.20 [facility] Eosinophils Auto (Bld) [#/Vo l]Ordered By: Peter [...] on 05-25-2023 Glucose [Mass/Vol] 87 mg/dL 70-100 [facility] Comment on above: ADA recommended refe rence [...] 05-25-2023 MCHC (RBC) [Mass/Vol] 32.7 g/dL 32.0-35.0 [facility] MCV Auto (RBC) [Entitic vol] Ordered By: [...] on 05-25-2023 Potassium [Moles/Vol] 4.0 mmol/L 3.5-5.1 [facility] Protein [Mass/volume] in Ser um or PlasmaOrdered By: Peter Ahumada on 05-25-2023 Protein [Mass/Vol] 6.5 g/dL 6.4-8.9 [facility] RBC Auto (Bld) [#/Vol]Ordere d By: Peter Ahumada on 05-25-2023 RBC (Bld) [#/Vol] 4.34 10*6/uL 3.60-5.00 [facility] Serum or plasma albumin/glob ulin mass ratioOrdered By: Peter Ahumada on 05-25-2023 Albumin/Globulin [Mass ratio] 1.4 {ratio} [facility] Serum or plasma anion gap de terminationOrdered By: Peter Ahumada on 05-25-2023 Anion gap [Moles/Vol] 10.1 mmol/L 6.0-15.0 [facility] Serum or plasma high density lipoprotein [...] on 05-25-2023 Sodium [Moles/Vol] 143 mmol/L 136-145 [facility] Thyrotropin [Units/volume] i n Serum or PlasmaOrdered By: Peter Ahumada on 05-25-2023 TSH Qn 0.73 m[IU]/L 0.45-5.33 [facility] Thyroxine (T4) free [Mass/vo lume] in Serum or PlasmaOrdered By: Peter Ahumada on 05-25-2023 Free T4 [Mass/Vol] 0.79 ng/dL 0.61-1.12 [facility] Triglyceride [Mass/volume] i n Serum or PlasmaOrdered [...] 05-25-2023 Urea nitrogen [Mass/Vol] 10 mg/dL 02-13 [facility] WBC Auto (Bld) [#/Vol]Ordere d By: Peter Ahumada on 05-25-2023 WBC (Bld) [#/Vol] 6.1 10*3/uL 3.8-11.6 [facility] [facility] Thyrotropin [Units/volume] i n Serum or PlasmaOrdered By: Peter Ahumada on 03-19-2023 TSH Qn 2.20 m[IU]/L 0.45-5.33 [facility] Thyroxine (T4) free [Mass/vo lume] in Serum or PlasmaOrdered By: Peter Ahumada on 03-19-2023 Free T4 [Mass/Vol] 0.62 ng/dL 0.61-1.12 [facility] Alanine aminotransferase [En zymatic activity/volume] in Serum or PlasmaOrdered By: Alba Marshall on 11-01-2022 ALT [Catalytic activity/Vol] 7 U/L [facility] Albumin [Mass/volume] in Ser [...] [place] Basophils Auto (Bld) [#/Vol] Ordered By: Albayehuda Marshall on 11-01-2022 Basophils (Bld) [#/Vol] 0.1 10*3/uL 0.0-0.2 [facility] Basophils/100 WBC Auto (Bld) Ordered By: Albayehuda Marshall on 11-01-2022 Basophils/100 WBC (Bld) 0.9 % . [facility] Bilirubin Test strip Ql (U)O rdered By: Albayehuda Marshall on 11-01-2022 Bilirubin Ql (U) Negative Negative [facility] Bilirubin.direct [Mass/volum e] in Serum or PlasmaOrdered By: Alba Marshall on 11-01-2022 Bilirubin.direct [Mass/Vol] 0.10 mg/dL 0.03-0.18 [facility] Bilirubin.total [Mass/volume ] in Serum or PlasmaOrdered By: Alba Marshall on 11-01-2022 Bilirubin [Mass/Vol] 0.3 mg/dL 0.3-1.0 [facility] [place] [facility] Calcium [Mass/volume] in Ser um or PlasmaOrdered By: Alba Bullimore on 11-01-2022 Calcium [Mass/Vol] 8.8 mg/dL 8.6-10.3 [facility] Carbon dioxide, total [Moles /volume] in Serum or PlasmaOrdered By: Alba Bullimore on 11-01-2022 CO2 [Moles/Vol] 27.6 mmol/L 21.0-31.0 [facility] Chloride [Moles/volume] in S renetta or PlasmaOrdered By: Alba Bullimore on 11-01-2022 Chloride [Moles/Vol] 105 mmol/L 98-107 [facility] [place] [facility] Choriogonadotropin.beta subu nit [Units/volume] in Serum or PlasmaOrdered By: Alba Bullimlila on 11-01-2022 HCG.beta subunit Qn m[IU]/mL [facility] Comment on above: Approximate Approxim ate hCG Gestational Age Range (mIU/ml) (weeks)0.2-1 5-50 1-2 50-500 2-3 100-5,000 3-4 500-10,000 4-5 1,000-50,000 5-6 10,000-100,000 6-8 15,000-200,000 8-12 10,000-100,000 Color Auto (U)Ordered By: Malgorzata Marshall on 11-01-2022 Color (U) Yellow Yellow [facility] Creatinine [Mass/volume] in Serum or PlasmaOrdered By: Alba Bullimore on 11-01-2022 Creatinine [Mass/Vol] 0.60 mg/dL 0.60-1.20 [facility] Eosinophils Auto (Bld) [#/Vo l]Ordered By: Alba [...] [place] Globulin Calc (S) [Mass/Vol] Ordered By: Albayehuda Marshall on 11-01-2022 Globulin (S) [Mass/Vol] 3.1 g/dL [facility] Glucose [Mass/volume] in Ser um or PlasmaOrdered By: Albayehuda Marshall on 11-01-2022 Glucose [Mass/Vol] 95 mg/dL 70-100 [facility] Comment on above: ADA recommended refe rence rangeRandom Glucose Reference Range is dependent on time and content of last meal. Glucose of more than 200 mg/dL in a nonstressed, ambulatory subject supports the diagnosis of Diabetes Mellitus. Hematocrit Auto (Bld) [Volum e fraction]Ordered By: Albayehuda Marshall on 11-01-2022 Hematocrit (Bld) [Volume fraction] 36.8 % 34.0-46.4 [facility] Hemoglobin [Mass/volume] in BloodOrdered By: [facility] [place] Rolando on 11-01-2022 Hemoglobin (Bld) [Mass/Vol] 12.5 g/dL 11.8-15.4 [facility] Ketones Auto test strip (U) [Mass/Vol]Ordered By: Albayehuda Marshall on 11-01-2022 Ketones (U) [Mass/Vol] Negative Negative [facility] - UrinalysisOrder ed By: Alba [...] MCHC (RBC) [Mass/Vol] 33.9 g/dL 32.0-35.0 [facility] [place] MCV Auto (RBC) [Entitic vol] Ordered By: [...] [place] Monocytes/100 WBC Auto (Bld) Ordered By: Alba Wrenimore on 11-01-2022 Monocytes/100 WBC (Bld) 6.9 % . [facility] Neutrophils Auto (Bld) [#/Vo l]Ordered By: Alba Wrenimore on 11-01-2022 Neutrophils (Bld) [#/Vol] 5.4 10*3/uL 1.8-7.7 [facility] Neutrophils/100 WBC Auto (Bl d)Ordered By: Albayehuda Wrenimore on 11-01-2022 Neutrophils/100 WBC (Bld) 69.6 % . [facility] Nitrite Test strip Ql (U)Ord ered By: Alba Ibrahimore on 11-01-2022 Nitrite Ql (U) Negative Negative [facility] No Panel InformationOrdered By: Alba Holgerimore on [...] on 11-01-2022 Potassium [Moles/Vol] 4.3 mmol/L 3.5-5.1 [facility] Protein Auto test strip (U) [Mass/Vol]Ordered By: Alba Bullimore on 11-01-2022 Protein (U) [Mass/Vol] Negative Negative [facility] Protein [Mass/volume] in Ser um or PlasmaOrdered By: Alba Bullimore on 11-01-2022 Protein [Mass/Vol] 6.8 g/dL 6.4-8.9 [facility] RBC Auto (Bld) [#/Vol]Ordere d By: Alba Bullimore on 11-01-2022 RBC (Bld) [#/Vol] 4.41 10*6/uL 3.60-5.00 [facility] Serum or plasma albumin/glob ulin mass ratioOrdered By: Alba Bullimore on 11-01-2022 Albumin/Globulin [Mass ratio] 1.2 {ratio} [facility] Serum or plasma anion gap de terminationOrdered By: Alba Bullimore on 11-01-2022 Anion gap [Moles/Vol] 10.7 mmol/L 6.0-15.0 [facility] Serum or plasma non-glucuron idated bilirubin measurement (mass/volume)Ordered By: Alba Marshall on 11-01-2022 Bilirubin.indirect [Mass/Vol] 0.2 mg/dL [facility] Sodium [Moles/volume] in Ser um or PlasmaOrdered By: Alba Marshall on 11-01-2022 Sodium [Moles/Vol] 139 mmol/L 136-145 [facility] Specific gravity Auto test s trip (U) [...] Bacteria Auto Ql (U) 1+ None Seen [facility] [place] [facility] Comment on above: --- 11/01/22 1050 [...] 11-01-2022 WBC (Bld) [#/Vol] 7.8 10*3/uL 3.8-11.6 [facility] Yeast detection in urine sed iment by [...] on 10-31-2022 Bilirubin [Mass/Vol] 0.3 mg/dL 0.3-1.0 [facility] [place] [facility] Calcium [Mass/volume] in Ser um or PlasmaOrdered By: Peter Ahumada on 10-31-2022 Calcium [Mass/Vol] 9.0 mg/dL 8.6-10.3 [facility] Carbon dioxide, total [Moles /volume] in Serum or PlasmaOrdered By: Peter Ahumada on 10-31-2022 CO2 [Moles/Vol] 25.8 mmol/L 21.0-31.0 [facility] Chloride [Moles/volume] in S renetta or PlasmaOrdered By: Peter Ahumada on 10-31-2022 Chloride [Moles/Vol] 106 mmol/L 98-107 [facility] [place] [facility] Cholesterol [Mass/volume] in Serum or PlasmaOrdered By: Peter Ahumada on 10-31-2022 Cholesterol [Mass/Vol] 152 mg/dL 140-200 [facility] Comment on above: Chol less than [...] on 10-31-2022 Creatinine [Mass/Vol] 0.55 mg/dL 0.60-1.20 [facility] Eosinophils Auto (Bld) [#/Vo l]Ordered By: Peter [...] on 10-31-2022 Glucose [Mass/Vol] 98 mg/dL 70-100 [facility] Comment on above: ADA recommended refe rence [...] 10-31-2022 MCHC (RBC) [Mass/Vol] 33.3 g/dL 32.0-35.0 [facility] MCV Auto (RBC) [Entitic vol] Ordered By: [...] 04-11-2023 Estimated GFR (CKD-EPI) > 60.0 mL/Min [facility] [...] on 10-31-2022 Potassium [Moles/Vol] 4.2 mmol/L 3.5-5.1 [facility] Protein [Mass/volume] in Ser um or PlasmaOrdered By: Peter Ahumada on 10-31-2022 Protein [Mass/Vol] 6.6 g/dL 6.4-8.9 [facility] RBC Auto (Bld) [#/Vol]Ordere d By: Peter Ahumada on 10-31-2022 RBC (Bld) [#/Vol] 4.44 10*6/uL 3.60-5.00 [facility] Serum or plasma albumin/glob ulin mass ratioOrdered By: Peter Ahumada on 10-31-2022 Albumin/Globulin [Mass ratio] 1.4 {ratio} [facility] Serum or plasma anion gap de terminationOrdered By: Peter Ahumada on 10-31-2022 Anion gap [Moles/Vol] 11.4 mmol/L 6.0-15.0 [facility] Serum or plasma high density lipoprotein [...] on 10-31-2022 Sodium [Moles/Vol] 139 mmol/L 136-145 [facility] Thyrotropin [Units/volume] i n Serum or PlasmaOrdered By: Peter Ahumada on 10-31-2022 TSH Qn 0.61 m[IU]/L 0.45-5.33 [facility] Thyroxine (T4) free [Mass/vo lume] in Serum or PlasmaOrdered By: Peter Ahumada on 10-31-2022 Free T4 [Mass/Vol] 0.76 ng/dL 0.61-1.12 [facility] Triglyceride [Mass/volume] i n Serum or PlasmaOrdered [...] WBC Auto (Bld) [#/Vol]Ordere d By: Peter Ahuamda on 10-31-2022 WBC (Bld) [#/Vol] 8.2 10*3/uL 3.8-11.6 [facility] Albumin [Mass/volume] in Ser um or PlasmaOrdered By: Peter Ahumada on 04-19-2022 Albumin [Mass/Vol] 3.2 g/dL 3.2-5.5 [facility] Basophils Auto (Bld) [#/Vol] Ordered By: Peter [...] 04-19-2022 WBC (Bld) [#/Vol] 5.9 10*3/uL 4.5-11.0 [facility] Cholesterol [Mass/volume] in Serum or PlasmaOrdered By: Peter Ahumada on 04-19-2022 Cholesterol [Mass/Vol] 159 mg/dL 140-200 [facility] Comment on above: Chol less than [...] on 04-19-2022 Creatinine [Mass/Vol] 0.58 mg/dL 0.44-1.03 [facility] Eosinophils Auto (Bld) [#/Vo l]Ordered By: Peter [...] 04-19-2022 MCHC (RBC) [Mass/Vol] 33.2 g/dL 32.0-35.0 [facility] MCV Auto (RBC) [Entitic vol] Ordered By: [...] on 04-19-2022 Protein [Mass/Vol] 6.3 g/dL 6.1-7.9 [facility] RBC Auto (Bld) [#/Vol]Ordere d By: Peter Ahumada on 04-19-2022 RBC (Bld) [#/Vol] 4.43 10*6/uL 3.60-5.00 [facility] Serum or plasma alanine ny otransferase [...] 04-19-2022 Anion gap [Moles/Vol] 13.9 mmol/L 6.0-15.0 [facility] Serum or plasma aspartate am inotransferase measurement (enzymatic activity/volume)Ordered By: Peter Ahumada on 04-19-2022 AST [Catalytic activity/Vol] 15 U/L 10-42 [facility] Serum or plasma calcium scotty urement (mass/volume)Ordered By: Peter Ahumada on 04-19-2022 Calcium [Mass/Vol] 8.8 mg/dL 8.2-10.2 [facility] Serum or plasma chloride francoise surement (moles/volume)Ordered By: Peter Ahumada on 04-19-2022 Chloride [Moles/Vol] 100 mmol/L 95-114 [facility] [place] [facility] Serum or plasma glucose scotty urement (mass/volume)Ordered By: Peter Ahumada on 04-19-2022 Glucose [Mass/Vol] 87 mg/dL 70-100 [facility] Comment on above: ADA recommended refe rence [...] on 04-19-2022 Potassium [Moles/Vol] 3.9 mmol/L 3.5-5.1 [facility] Serum or plasma sodium measu rement (moles/volume)Ordered By: Peter Ahumada on 04-19-2022 Sodium [Moles/Vol] 136 mmol/L 136-146 [facility] Serum or plasma total biliru bin measurement (mass/volume)Ordered By: Peter Ahumada on 04-19-2022 Bilirubin [Mass/Vol] 0.4 mg/dL 0.3-1.2 [facility] [place] [facility] Serum or plasma total carbon dioxide measurement (moles/volume)Ordered By: Peter Ahumada on 04-19-2022 CO2 [Moles/Vol] 26.0 mmol/L 22.0-30.0 [facility] Serum or plasma total choles terol/high density lipoprotein (HDL) cholesterol mass ratOrdered By: Peter Ahumada on 04-19-2022 Cholesterol.total/Chol esterol in HDL [Mass ratio] 3.0 {ratio} <5.0 [facility] Serum or plasma urea nitroge n measurement (mass/volume)Ordered By: Peter Ahumada on 04-19-2022 Urea nitrogen [Mass/Vol] 5 mg/dL 9- [facility] TSH DL <= 0.005 mIU/L QnOrde red By: Peter Ahumada on 04-19-2022 TSH Qn 1.94 m[IU]/L 0.45-5.33 [facility] Thyroxine (T4) free [Mass/vo lume] in Serum or PlasmaOrdered By: Peter Ahumada on 04-19-2022 Free T4 [Mass/Vol] 0.69 ng/dL 0.61-1.12 [facility] Triglyceride [Mass/volume] i n Serum or PlasmaOrdered [...] test method. CNOVon 10-13-2021 CNOV Office Visit ([id number] ) -------- DARLING KHANNA ([id number]) 1980 F Date Time Provider Department 10/13/21 1:30 PM KATE DANIEL [id number] During your visit today, we recorded the following information about you: Temperature Pulse Blood pressure Weight 97.7 degrees 68/minute 112/55 115.2 kg Height 1.829 m Kate Daniel MD 10/17/2021 1:50 PM Signed Assessment ESTABLISHED PATIENT Darling Khanna is a 40 year old female with a right posterior liver subcapsular fluid collection ? 03/03/2021: Patient presented to [facility] on 02/08/2021 for 2 days for [...] US of ovaries yesterday at [facility]. Scheduled for upper GI at end of month. Gained?50 pounds since July?(was in [place] for 3 months, drank a lot); diagnosed [...] well. She did spend 3 months in [place] and did not have any issues, hospitalizations [...] which included preparing to see the patient, [id number] patient care and completing clinical documentation. MD Jayne Garrido Ma 10/13/2021 1:33 PM Signed What is the reason for your visit today? Follow up Who is your referring physician? Are you having poor oral intake? NO Have you had unintentional weight loss of 15 lbs/7 Kg in the last 3-6 months? NO Bowels: regular Wound: Temperature: No Drains: No Referring Provider: KATE DANIEL [[id number]] Allergies As of Date: 10/13/2021 Noted Allergy [...] of 05/10 (more content not included)... Normal [facility] Mayela 09-30-2021 [facility] Telephone ([id number]) -------- DARLING KHANNA ([id number]) 1980 F Date Time Provider Department 09/30/21 KATE DANIEL [id number] During your visit today, we recorded the following information about you: Sujatha Tomas 09/30/2021 9:00 AM Signed Called patient to reschedule her 10/13 in person to virtual. She would like to keep in person. She also wants to know if a CT or MRI can be ordered of her pancreas abdomen as she hasn't had anything done recently. She can be reached at [phone]. Talat Armendariz RN 10/10/2021 11:29 AM Signed [...] Status:Closed by TALAT ARMENDARIZ RN on 10/10/21 [facility] Silvana 04-07-2021 CNOV Office Visit ([id number] ) -------- DARLING KHANNA ([id number]) 1980 F Date Time Provider Department 04/07/21 2:30 PM KATE DANIEL [id number] During your visit today, we recorded the [...] subcapsular fluid collection 03/03/2021: Patient presented to [facility] on 02/08/2021 for 2 days for [...] US of ovaries yesterday at [facility]. Scheduled for upper GI at end of month. Gained 50 pounds since July (was in [place] for 3 months, drank a lot); diagnosed [...] which included preparing to see the patient, [id number] patient care and completing clinical documentation. Kate Daniel MD Referring Provider: KATE DANIEL [[id number]] Allergies As of Date: 04/07/2021 Noted Allergy [...] Temperature: No (more content not included)... Normal [facility] CNTRTMon 03-22-2021 CNTRTM Treatment Team (ANSHUL VILLAFUERTE) -------- DARLING KHANNA ([id number]) 1980 F Date Time Provider Department 03/22/21 [...] findings to suggest etiology Pre-conference plan (from [facility]): - Observation and serial imaging Imaging Review: [...] Status:Closed by WILLIAM DE LEÓN on 03/23/21 [facility] CNOVon 03-03-2021 CNOV Office Visit ([id number] ) -------- DARLING KHANNA ([id number]) 1980 F Date Time Provider Department 03/03/21 10:00 AM KATE DANIEL [id number] During your visit today, we recorded the [...] 40 year old female Patient presented to [facility] on 02/08/2021 for 2 days for [...] US of ovaries yesterday at [facility]. Scheduled for upper GI at end of month. Gained 50 pounds since July (was in [place] for 3 months, drank a lot); diagnosed [...] was malignant. Seen by Dr. Haines on [facility], in [facility]; denies chemotherapy or radiation. Hernia repair Social [...] (more content not included)... Normal [facility]ela [facility] -------- DARLING KHANNA ([id number]) 1980 F Date Time Provider Department 02/23/21 KATE DANIEL [facility] During your visit today, we recorded the following information about you: Talat Armendariz RN 02/23/2021 10:02 AM Addendum Hepatobiliary Surgery Consult HPI: Patient presented to [facility] on 02/08/2021 for 2 days for [...] Current OCP Imagin02/08/2021 CT A/P wo IVCON ([facility]- report rec'd) - minor basilar [...] liver posteriorly 02/17/2021 MRI Abdomen w/wo IVCON ([facility]- report rec'd) - unremarkable size [...] months 02/22/2021 CT A/P w IVCON (Report [facility]- report rec'd) - 62mm x 20mm lenticular [...] 8:26 AM Signed Patient's records scanned into [employer] and imaging downloaded from [facility], please review. Tatyana Kilgore Pss 02/25/2021 9:53 AM Signed Scheduled patient for new consult on 03/03/2021. 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7 % Normal 0.2-2.0 [facility] Comment on above: Performed By: #### C BC #### [facility] [address] [place], [place] [id number] Ruy Ayleen EO # 0.1 103/ul Normal 0.0-0.7 [facility] Comment on above: Performed By: #### C BC #### [facility] [address], [place] [address] Ruy Ayleen Eosinophils/100 WBC (Bld) 1.2 % Normal 0.9-7.0 [facility] Comment on above: Performed By: #### C BC #### [facility] [address] [place], [place] [phone] Ruy Ayleen Erythrocyte distribution width (RBC) [Ratio] 12.6 % Normal 11.0-15.0 [facility] Comment on above: Performed By: #### C BC #### [facility] [address] [place], [place] [phone] Ruy Ayleen Hematocrit (Bld) [Volume fraction] 38.7 % Normal 36.0-48.0 [facility] Comment on above: Performed By: #### C BC #### [facility] [address] [place] [id number] Ruy Ayleen Hemoglobin (Bld) [Mass/Vol] 12.6 g/dL Normal 12.0-16.0 [facility] Comment on above: Performed By: #### C BC #### [facility] [address] [id number] Ruy Ayleen IG # 0.02 10e3/ul Normal 0.00-0.03 [facility] Comment on above: Performed By: #### C BC #### [facility] [address] [address] Ruy Ayleen IG % 0.2 % Normal 0.0-0.5 [facility] Comment on above: Performed By: #### C BC #### [facility] [address] [place] [address] Ruy Ayleen LYMPH # 2.4 103/ul Normal 1.2-3.8 [facility] Comment on above: Performed By: #### C BC #### [facility] [address] [place] [address] Ruy Ayleen Lymphocytes/100 WBC (Bld) 22.4 % Normal 20.5-60.0 [facility] Comment on above: Performed By: #### C BC #### [facility] [address] [place] [address] Ruy Ayleen MANUAL DIFF REQ NO Normal [facility] Comment on above: Performed By: #### C BC #### [facility] [address] [place], [place] [phone] Ruy Ayleen MCH (RBC) [Entitic mass] 27.7 pg Normal 26.7-34.0 [facility] Comment on above: Performed By: #### C BC #### [facility] [address] [place] [address] Ruy Ayleen MCHC (RBC) [Mass/Vol] 32.6 g/dL Normal 29.9-35.2 [facility] Comment on above: Performed By: #### C BC #### [facility] [address] [place] [address] Ruy Ayleen MCV (RBC) [Entitic vol] 85.1 fL Normal 81.0-99.0 [facility] Comment on above: Performed By: #### C BC #### [facility] [address] [id number] Ruy Ayleen MONO # 0.7 103/ul Normal 0.3-0.8 [facility] Comment on above: Performed By: #### C BC #### [facility] [address] [place], [place] [phone] Ruy Ayleen Monocytes/100 WBC (Bld) 6.5 % Normal 1.7-12.0 [facility] Comment on above: Performed By: #### C BC #### [facility] [address] [place], [place] [address] Ruy Ayleen NEUT # 7.3 103/ul Critically high 1.4-6.5 [facility] Comment on above: Performed By: #### C BC #### [facility] [address] [place], [place] [phone] Ruy Ayleen Neutrophils/100 WBC (Bld) 69.0 % Normal 43.0-75.0 [facility] Comment on above: Performed By: #### C BC #### [facility] [address] [place], [place] [address] Ruyradhames Cardozoen Platelet mean volume (Bld) [Entitic vol] 9.3 fL Critically low 9.5-13.5 [facility] Comment on above: Performed By: #### C BC #### [facility] [address] [place], [place] [phone] Ruy Ayleen PLT 324 103/ul Normal 150-450 [facility] Comment on above: Performed By: #### C BC #### [facility] [address] [place], [place] [address] Ruy Ayleen RBC 4.55 106/ul Normal 4.20-5.40 [facility] Comment on above: Performed By: #### C BC #### [facility] [address] [place], [place] [phone] Ruy Ayleen WBC 10.6 103/ul Normal 4.0-11.0 [facility] Comment on above: Performed By: #### C BC #### [facility] [address] [place], [place] [phone] Ruy Ayleen CT ABD/PELV W CONon 02-23-20 [...] MARINA HERNANDEZ Date: 2021-02-22 03:10 Normal [facility] D-DIMERon 02-22-2021 D-DIMER 0.40 mg/L FEU Normal 0.19-0.50 [facility] Comment on above: Performed By: #### D DIM #### [facility] [address] [place] [address] Ruy Abbasi D-DIMER COMMENTS SEE BELOW Normal [facility] Comment on above: Result Comment: Incr eases [...] hospitalization. Performed By: #### D DIM #### [facility] [address] [place] [address] Ruy Abbasi LIPASEon 02-22-2021 Lipase [Catalytic activity/Vol] 120.0 U/L Normal 23.0-300.0 [facility] Comment on above: Performed By: #### L IPA, CMP, SHAI #### [facility] [address] [place], [place] [phone] Ruy Abbasi MONOon 02-22-2021 Monocytes (Bld) [#/Vol] Negative Normal NEGATIVE [facility] Comment on above: Performed By: #### M IGOR #### [facility] [address] [place], [place] [phone] Ruy Abbasi OT-CT ABD/PELVIS W CON IMPOR Ton 02-22-2021 OT-CT ABD/PELVIS W CON IMPORT Images were obtained outside of [facility] [id number] Normal [facility] OT-CT ABD/PELVIS W CON IMPORT Images were obtained outside of [facility] [id number] Normal [facility] PREG HCG QUALon 02-22-2021 , QUAL Negative Normal NEGATIVE [facility] Comment on above: Performed By: #### P REG #### [facility] [address] [place], [place] [phone] Ruy Cardozoen PROF 14(COMP METB)on 021 Albumin [Mass/Vol] 3.2 g/dL Critically low 3.5-5.0 [facility] [facility] Comment on above: Performed By: #### L IPA, CMP, SHAI #### [facility] [address] [place], [place] [id number] Ruy Abbasi Albumin/Globulin [Mass ratio] 0.7 {ratio} Normal [facility] Comment on above: Performed By: #### L IPA, CMP, SHAI #### [facility] [address] [place], [place] [id number] Ruy Ayleen ALP [Catalytic activity/Vol] 54 U/L Normal 38-126 [facility] Comment on above: Performed By: #### L IPA, CMP, SHAI #### [facility] [address], [place] [address] Ruy Ayleen ALT [Catalytic activity/Vol] 11 U/L Normal 9-52 [facility] Comment on above: Performed By: #### L IPA, CMP, SHAI #### [facility] [address], [place] [address] Ruy Ayleen Anion gap [Moles/Vol] 11.6 mmol/L Normal [facility] Comment on above: Performed By: #### L IPA, CMP, SHAI #### [facility] [address] [address] Ruy Ayleen AST [Catalytic activity/Vol] 12 U/L Critically low 14-36 [facility] Comment on above: Performed By: #### L IPA, CMP, SHAI #### [facility] [address] [address] Ruy Ayleen Bilirubin [Mass/Vol] 0.2 mg/dL Normal 0.2-1.3 [facility] Comment on above: Performed By: #### L IPA, CMP, SHAI #### [facility] [address] [address] Ruy Ayleen Calcium [Mass/Vol] 9.2 mg/dL Normal 8.4-10.2 [facility] Comment on above: Performed By: #### L IPA, CMP, SHAI #### [facility] [address] [address] Ruy Ayleen Chloride [Moles/Vol] 104 mmol/L Normal 98-107 [facility] Comment on above: Performed By: #### L IPA, CMP, SHAI #### [facility] [address] [address] Ruy Ayleen CO2 [Moles/Vol] 29.7 mmol/L Normal 22.0-30.0 [facility] Comment on above: Performed By: #### L IPA, CMP, SHAI #### [facility] [address] [address] Ruy Ayleen Creatinine [Mass/Vol] 0.74 mg/dL Normal 0.52-1.04 [facility] Comment on above: Performed By: #### L IPA, CMP, SHAI #### [facility] [address], [place] [address] Ruy Ayleen EGFR-AF GAMBIAN >60 Normal >=60 [facility] Comment on above: Performed By: #### L IPA, CMP, SHAI #### [facility] [address] [id number] Ruy Ayleen EGFR-NON AF GAMBIAN >60 Normal >=60 [facility] Comment on above: Performed By: #### L IPA, CMP, SHAI #### [facility] [address] [id number] Ruy Ayleen Globulin (S) [Mass/Vol] 4.4 g/dL Normal [facility] Comment on above: Performed By: #### L IPA, CMP, SHAI #### [facility] [address] [address] Ury Ayleen Glucose [Mass/Vol] 104 mg/dL Normal 74-106 [facility] Comment on above: Performed By: #### L IPA, CMP, SHAI #### [facility] [address] [address] Ruy Ayleen Potassium [Moles/Vol] 4.3 mmol/L Normal 3.4-5.0 [facility] Comment on above: Performed By: #### L IPA, CMP, SHAI #### [facility] [address] [id number] Ruy Ayleen Protein [Mass/Vol] 7.6 g/dL Normal 6.1-8.2 [facility] Comment on above: Performed By: #### L IPA, CMP, SHAI #### [facility] [address] [address] Ruy Ayleen Sodium [Moles/Vol] 141 mmol/L Normal 137-145 [facility] Comment on above: Performed By: #### L IPA, CMP, SHAI #### [facility] [address] [address] Ruy Ayleen Urea nitrogen [Mass/Vol] 9.0 mg/dL Normal 7.0-17.0 [facility] Comment on above: Performed By: #### L KARLI WEST, SHAI #### [facility] [address] [address] Ruy Abbasi Urea nitrogen/Creatinine [Mass ratio] 12.2 mg/mg Normal [facility] Comment on above: Performed By: #### L IPA, CMP, SHAI #### [facility] [address] [id number] Ruy Abbasi MR-MR abdomen wo/w con IMPOR Ton 02-16-2021 MR-MR abdomen wo/w con IMPORT Images were obtained outside of [facility] [id number] Normal [facility] CT-CT abdomen pelvis w con I MPORTon 02-15-2021 CT-CT abdomen pelvis w con IMPORT Images were obtained outside of [facility] [id number] Normal [facility] CT-CT abdomen pelvis wo con IMPORTon 02-08-2021 CT-CT abdomen pelvis wo con IMPORT Images were obtained outside of [facility] [id number] Normal [facility] US-US gall bladder IMPORTon 02-08-2021 US-US gall bladder IMPORT Images were obtained outside of [facility] [id number] Normal [facility] CNOVon 12-28-2020 CNOV Office Visit (LOORRM ) -------- DARLING KHANNA ([id number]) 1980 F Date Time Provider Department 12/28/20 3:30 PM CAST FILIPPO MARCANO During your visit today, we recorded the following information about you: Tracey Hair Ma 12/28/2020 4:25 PM Signed Dispensed XL/XXL Reaction brace for the Right knee. Dispensed by [employer]. Instructions were given on application/adjustments. She will f/u as scheduled/prn. Tracey Hair MA,RICARDO Referring Provider: ISHAN YUSUF [[id number]] Allergies As of Date: 12/28/2020 Noted Allergy [...] Status:Closed by TRACEY HAIR MA on 12/28/20 [facility] CNOV Office Visit (LOORRM ) -------- DARLING KHANNA ([id number]) 1980 F Date Time Provider Department 12/28/20 [...] was performed today. CLINICAL IMPRESSION / ASSESSMENT: (I84.751B) Closed nondisplaced fracture of proximal phalanx of [...] little finger with routine healing, subsequent encounter [F09.541C] Other Visit Diagnosis:Patellofemoral arthralgia of right knee [...] Encounter Status:Closed by ISHAN YUSUF on 12/28/20 [facility] CNOVon 11-30-2020 CNOV Office Visit (LOORRM ) -------- DARLING KHANNA ([id number]) 1980 F Date Time Provider Department 11/30/20 [...] results and radiologist's interpretation, available in the [facility] health record. Images were reviewed with the patient/family members in the office today. My personal interpretation of the performed imaging is healing proximal phalanx fracture CLINICAL IMPRESSION / ASSESSMENT: (V21.739E) Closed nondisplaced fracture of proximal phalanx of [...] little finger with routine healing, subsequent encounter [Z72.684M] Order(s):XR HAND GENERAL 3V PA/LAT/OBL LT [[id number]] Order #: [id number] FUTURE CONSULT TO BUILDING SERVICES COORDINATOR [[id number]] Order #: [id number]: [id number] FUTURE Prescriptions as of 11/30/2020 Sig: [...] Status:Closed by ISHAN YUSUF on 11/30/20 Normal [facility] XR HAND 3V PA/LAT/OBL LTon [...] fractures. IMPRESSION: Healing 5th proximal phalanx fracture Lead Performance Support Analyst: WILBERT Transcribe Date/Time: Nov 30 2020 4:18P Dictated by : JUDITH FUENTES MD This examination was interpreted and the report reviewed and electronically signed by: JUDITH FUENTES MD on Nov 30 2020 4:19PM EST [id number] Normal [facility] XR Hand - left PA and Latera l and Obliqueon 11-30-2020 IMPRESSION: Healing 5th proximal phalanx fracture Lead Performance Support Analyst: WILBERT Transcribe Date/Time: Nov 30 2020 4:18P [...] IMPRESSION IMPRESSION: Healing 5th proximal phalanx fracture Lead Performance Support Analyst: PSCB Transcribe Date/Time: Nov 30 2020 4:18P Dictated by : JUDITH FUENTES MD This examination was interpreted and the report reviewed and electronically signed by: JUDITH FUENTES MD on Nov 30 2020 4:19PM EST [facility] Radiology Study observation (narrative) [facility] XR Hand - left PA and Latera l and ObliqueOrdered By: Ccf Provider on 11-30-2020 [facility] CNOVon 11-18-2020 CNOV Office Visit (LOORRM ) -------- DARLING KHANNA ([id number]) 1980 F Date Time Provider Department 11/18/20 [...] results and radiologist's interpretation, available in the [facility] health record. Images were reviewed with the patient/family members in the office today. My personal interpretation of the performed imaging is intra-articular proximal phalanx fracture CLINICAL IMPRESSION / ASSESSMENT: (S52.537W) Closed nondisplaced fracture of proximal phalanx of [...] phalanx of left little finger, initial encounter [O63.252H] Order(s):XR HAND GENERAL 3V PA/LAT/OBL LT [[id number]] Order #: [id number] FUTURE Prescriptions as of 11/18/2020 Sig: OMEPRAZOLE [...] Status:Closed by ISHAN YUSUF on 11/18/20 Normal [facility] XR HAND 3V PA/LAT/OBL LTon [...] unchanged. IMPRESSION: Healing fifth proximal phalanx fracture. Lead Performance Support Analyst: WILBERT Transcribe Date/Time: Nov 18 2020 8:15P Dictated by : ADRIANE CAMPOS MD This examination was interpreted and the report reviewed and electronically signed by: ADRIANE CAMPOS MD on Nov 18 2020 8:27PM EST [id number] Normal [facility] XR Hand - left PA and Latera l and Obliqueon 11-18-2020 IMPRESSION: Healing fifth proximal phalanx fracture. Lead Performance Support Analyst: WILBERT Transcribe Date/Time: Nov 18 2020 8:15P Dictated by : ADRIANE CAMPOS MD This examination was interpreted and the report reviewed and electronically signed by: ADRIANE CAMPOS MD on Nov 18 2020 8:27PM [facility] DIVISION OF RADIOLOGY * [...] DIVISION OF RADIOLOGY Provider, [facility] - 11/18/2020 * * *Final Report* [...] IMPRESSION IMPRESSION: Healing fifth proximal phalanx fracture. Lead Performance Support Analyst: PSCB Transcribe Date/Time: Nov 18 2020 8:15P Dictated by : ADRIANE CAMPOS MD This examination was interpreted and the report reviewed and electronically signed by: ADRIANE CAMPOS MD on Nov 18 2020 8:27PM EST [facility] Radiology Study observation (narrative) [facility] XR Hand - left PA and Latera l and ObliqueOrdered By: Ccf Provider on 11-18-2020 [facility] CNOVon 11-04-2020 CNOV Office Visit (ORAVON ) -------- DARLING KHANNA ([id number]) 1980 F Date Time Provider Department 11/04/20 2:00 PM BOB MILLAN During your visit today, we recorded the following information about you: Bob Millan DO 11/04/2020 2:12 PM Signed [facility] Office Visit Documentation Note [facility] Sports Medicine Orthopaedic and Rheumatologic [place] REASON FOR VISIT / CHIEF COMPLAINT SERVICE [...] results and radiologist's interpretation, available in the [facility] health record. Images were reviewed with the patient/family members in the office today. My personal interpretation of the performed imaging is Has IA prox phalanx fracture at PIP ASSESSMENT / PLAN CLINICAL IMPRESSION / ASSESSMENT: (K21.944I) Closed nondisplaced fracture of proximal phalanx of [...] plan as detailed above. Bob Millan D.O. [facility] Orthopaedic and Rheumatologic [place] Team Physician, [facility] Consulting Physician, [place] [employer] [place], Share D[employer] Farmer [phone] Patient verbalizes understanding and agrees with the treatment plan as detailed above. Referring Provider: SELF [[id number]] Allergies As of Date: 11/04/2020 Noted Allergy Reaction INDOMETHACIN 05/10/2018 7 - Swelling Date Reviewed: 11/04/2020 Reviewed by: Juaquin Farmer - Fully Assessed Reason for Visit: New [[id number]] Primary Visit Diagnosis:Closed nondisplaced fracture of proximal [...] for Dr. Yusuf or Shayla Silva in [place]. Follow-up and Disposition History Recorded Encounter Status:Closed by BOB MILLAN DO on 11/04/20 Normal [facility] DX-XR HAND COMPLETE LEFT IMP Shelbie 10-30-2020 DX-XR HAND COMPLETE LEFT IMPORT Images were obtained outside of [facility] [id number] Normal [facility] Vital Signs Date Time Vital Sign Value Performing Clinician Facility 12-08-2024 12:48-0400 Body height 182.88 cm Peter Ahumada DO Work Phone: [facility] 12-08-2024 12:48-0400 Body mass index (BMI) [Ratio] 27.3 kg/m2 Peterluiza Ahumada DO Work Phone: [facility] 12-08-2024 12:48-0400 Body weight 91.62 kg Peterluiza Ahumada DO Work Phone: [facility] 12-08-2024 12:48-0400 Diastolic blood pressure 74 mm[Hg] Peterluiza Ahumada DO Work Phone: [facility] 12-08-2024 12:48-0400 Heart rate 76 /min Peterluiza Ahumada DO Work Phone: [facility] 12-08-2024 12:48-0400 Respiratory rate 18 /min Peterluiza Ahumada DO Work Phone: [facility] 12-08-2024 12:48-0400 SaO2% (BldA) [Mass fraction] 96 % Peterluiza Ahumada DO Work Phone: [facility] 12-08-2024 12:48-0400 Systolic blood pressure 118 mm[Hg] Peter Ahumada DO Work Phone: [facility] 09-10-2024 15:25-0500 Body height 182.9 cm Alber Itzkowitz DO Work Phone: [facility] 09-10-2024 15:25-0500 Body mass index (BMI) [Ratio] 27.8 kg/m2 Alber Itzkowitz DO Work Phone: [facility] 09-10-2024 15:25-0500 Body weight 92.99 kg Alber Itzkowitz DO Work Phone: [facility] 09-10-2024 15:25-0500 Diastolic blood pressure 70 mm[Hg] Alber Itzkowitz DO Work Phone: [facility] 09-10-2024 15:25-0500 Systolic blood pressure 120 mm[Hg] Alber Itzkowitz DO Work Phone: [facility] 09-09-2024 14:37-0500 Body height 182.88 cm Peter Ahumada DO Work Phone: [facility] 09-09-2024 14:37-0500 Body mass index (BMI) [Ratio] 27.9 kg/m2 Peter Ahumada DO Work Phone: [facility] 09-09-2024 14:37-0500 Body weight 93.44 kg Peter Ahumada DO Work Phone: [facility] 09-09-2024 14:37-0500 Diastolic blood pressure 70 mm[Hg] Peter Ahumada DO Work Phone: [facility] 09-09-2024 14:37-0500 Heart rate 74 /min Peter Ahumada DO Work Phone: [facility] 09-09-2024 14:37-0500 SaO2% (BldA) [Mass fraction] 95 % Peterluiza Shens DO Work Phone: [facility] 09-09-2024 14:37-0500 Systolic blood pressure 126 mm[Hg] Peter Shens DO Work Phone: [facility] 06-10-2024 15:00-0500 Body height 182.88 cm Peterluiza Shens DO Work Phone: [facility] 06-10-2024 15:00-0500 Body mass index (BMI) [Ratio] 32.3 kg/m2 Peterluiza Shens DO Work Phone: [facility] 06-10-2024 15:00-0500 Body weight 107.95 kg Peter Shens DO Work Phone: [facility] 06-10-2024 15:00-0500 Diastolic blood pressure 60 mm[Hg] Peter Acs DO Work Phone: [facility] 06-10-2024 15:00-0500 Heart rate 75 /min Peter Shens DO Work Phone: [facility] 06-10-2024 15:00-0500 Respiratory rate 16 /min Peter Shens DO Work Phone: [facility] 06-10-2024 15:00-0500 SaO2% (BldA) [Mass fraction] 96 % Peter Shens DO Work Phone: [facility] 06-10-2024 15:00-0500 Systolic blood pressure 98 mm[Hg] Peter Shens DO Work Phone: [facility] 03-06-2024 14:27-0400 Body height 182.88 cm DO Peter Kuns Work Phone: [facility] 03-06-2024 14:27-0400 Body mass index (BMI) [Ratio] 36.4 kg/m2 DO Peter Acs Work Phone: [facility] 03-06-2024 14:27-0400 Body weight 122.01 kg DO Peter Kuns Work Phone: [facility] 03-06-2024 14:27-0400 Diastolic blood pressure 72 mm[Hg] DO Peter Kuns Work Phone: [facility] 03-06-2024 14:27-0400 Heart rate 77 /min DO Peter Kuns Work Phone: [facility] 03-06-2024 14:27-0400 Respiratory rate 16 /min DO Peter Kuns Work Phone: [facility] 03-06-2024 14:27-0400 SaO2% (BldA) [Mass fraction] 96 % DO Peter Kuns Work Phone: [facility] 03-06-2024 14:27-0400 Systolic blood pressure 118 mm[Hg] DO Peter Kuns Work Phone: [facility] 01-29-2024 14:05-0400 Diastolic blood pressure 78 mm[Hg] DO Peter Kuns Work Phone: [facility] 01-29-2024 14:05-0400 Heart rate 91 /min DO Peter Kuns Work Phone: [facility] 01-29-2024 14:05-0400 Respiratory rate 16 /min DO Peter Kuns Work Phone: [facility] 01-29-2024 14:05-0400 SaO2% (BldA) [Mass fraction] 94 % DO Peter Kuns Work Phone: [facility] 01-29-2024 14:05-0400 Systolic blood pressure 124 mm[Hg] DO Peter Kuns Work Phone: [facility] 01-29-2024 13:05-0400 Body temperature 97 [degF] DO Peter Kuns Work Phone: [facility] 01-29-2024 12:42-0400 Inhaled oxygen flow rate 8 L/min DO Peter Shens Work Phone: [facility] 01-29-2024 11:44-0400 Body height 182.88 cm DO Peter Shens Work Phone: [facility] 01-29-2024 11:44-0400 Body mass index (BMI) [Ratio] 36.5 kg/m2 DO Peterluiza Shens Work Phone: [facility] 01-29-2024 11:44-0400 Body weight 122.2 kg DO Peter Ahumada Work Phone: [facility] 12-31-2023 07:25-0400 Body height 2194.56 cm DO Peter Shens Work Phone: [facility] 12-31-2023 07:25-0400 Body mass index (BMI) [Ratio] 0.2 kg/m2 DO Peter Ahumada Work Phone: [facility] 12-31-2023 07:25-0400 Body weight 122.46 kg DO Peter Ahumada Work Phone: [facility] 12-31-2023 07:25-0400 Diastolic blood pressure 80 mm[Hg] DO Peter Shens Work Phone: [facility] 12-31-2023 07:25-0400 Heart rate 65 /min DO Peter Shens Work Phone: [facility] 12-31-2023 07:25-0400 Respiratory rate 16 /min DO Peter Shens Work Phone: [facility] 12-31-2023 07:25-0400 SaO2% (BldA) [Mass fraction] 97 % DO Peterluiza Shens Work Phone: [facility] 12-31-2023 07:25-0400 Systolic blood pressure 118 mm[Hg] DO Peter Acs Work Phone: [facility] 12-27-2023 14:20-0400 [...] 88 /min DO Peter Ahumada Work Phone: [facility] 12-17-2023 07:31-0400 Respiratory rate 20 /min DO Peter Ahumada Work Phone: [facility] 12-17-2023 07:31-0400 SaO2% (BldA) [Mass fraction] 97 % DO Peter Ahumada Work Phone: [facility] 12-17-2023 07:31-0400 Systolic blood pressure 143 mm[Hg] DO Peter Shens Work Phone: [facility] 06-08-2023 10:30-0500 Body height 182.88 cm Peter Shenshira Other [employer] Other 06-08-2023 10:30-0500 Body mass index (BMI) [Ratio] 34.91 kg/m2 Peter Shenshira Other [employer] Other 06-08-2023 10:30-0500 Body weight 116.76 kg Peter Ahumada Other [employer] Other 06-08-2023 10:30-0500 Diastolic blood pressure 82 mm[Hg] Peter Ahumada Other [employer] Other 06-08-2023 10:30-0500 Respiratory rate 16 /min Peterluiza Shenshira Other [employer] Other 06-08-2023 10:30-0500 SaO2% (BldA) [Mass fraction] 98 % Peter Ahumada Other [employer] Other 06-08-2023 10:30-0500 Systolic blood pressure 126 mm[Hg] Peter Ahumada Other [employer] Other 05-24-2023 15:00-0400 Body height 182.88 cm Peter Ahumada Other [employer] Other 05-24-2023 15:00-0400 Body mass index (BMI) [Ratio] 35.12 kg/m2 Peter Ahumada Other [employer] Other 05-24-2023 15:00-0400 Body weight 117.48 kg Peter Ahumada Other [employer] Other 05-24-2023 15:00-0400 Diastolic blood pressure 86 mm[Hg] Peter Ahumada Other [employer] Other 05-24-2023 15:00-0400 Respiratory rate 16 /min Peter Ahumada Other [employer] Other 05-24-2023 15:00-0400 SaO2% (BldA) [Mass fraction] 95 % Peterluiza Ahumada Other [employer] Other 05-24-2023 15:00-0400 Systolic blood pressure 130 mm[Hg] Peter Ahumada Other [employer] Other 03-21-2023 08:30-0400 Body height 182.88 cm Peter Ahumada Other [employer] Other 03-21-2023 08:30-0400 Body mass index (BMI) [Ratio] 34.39 kg/m2 Peter Ahumada Other [employer] Other 03-21-2023 08:30-0400 Body weight 115.03 kg Peter Ahumada Other [employer] Other 03-21-2023 08:30-0400 Diastolic blood pressure 70 mm[Hg] Peter Ahumada Other [employer] Other 03-21-2023 08:30-0400 Respiratory rate 16 /min Peter Ahumada Other [employer] Other 03-21-2023 08:30-0400 SaO2% (BldA) [Mass fraction] 95 % Peter Ahumada Other [employer] Other 03-21-2023 08:30-0400 Systolic blood pressure 124 mm[Hg] Peter Ahumada Other [facility] [employer] Other 11-01-2022 13:49-0400 Diastolic blood pressure 90 mm[Hg] DO Peter Shens Work Phone: [facility] 11-01-2022 13:49-0400 Systolic blood pressure 153 mm[Hg] DO Peter Kuns Work Phone: [facility] 11-01-2022 13:02-0400 Body temperature 97.6 [degF] DO Peter Acs Work Phone: [facility] 11-01-2022 13:02-0400 Heart rate 72 /min DO Peter Kuns Work Phone: [facility] 11-01-2022 13:02-0400 Respiratory rate 18 /min DO Peter Kuns Work Phone: [facility] 11-01-2022 13:02-0400 SaO2% (BldA) [Mass fraction] 96 % DO Peter Kuns Work Phone: [facility] 04-12-2023 08:58-0400 Body height 182.88 cm DO Peter Ahumada Work Phone: [facility] 11-01-2022 08:58-0400 Body weight 117.93 kg DO Peter Ahumada Work Phone: [facility] 05-25-2022 17:00-0400 Body height 182.88 cm Peter Ahumada Other [facility] [employer] Other 05-25-2022 17:00-0400 Body mass index (BMI) [Ratio] 33.63 kg/m2 Peter Ahumada Other [employer] Other 05-25-2022 17:00-0400 Body weight 112.49 kg Peter Ahumada Other [employer] Other 05-25-2022 17:00-0400 Diastolic blood pressure 74 mm[Hg] Peter Blake Other [employer] Other 05-25-2022 17:00-0400 Respiratory rate 16 /min Peter Blake Other [employer] Other 05-25-2022 17:00-0400 SaO2% (BldA) [Mass fraction] Peter Ahumada Other [employer] Other 05-25-2022 17:00-0400 Systolic blood pressure 118 mm[Hg] Peter Blake Other [employer] Other 04-24-2022 09:15-0400 Body height 182.88 cm Peter Ahumada Other [employer] Other 04-24-2022 09:15-0400 Body mass index (BMI) [Ratio] 33.5 kg/m2 Peter Ahumada Other [employer] Other 04-24-2022 09:15-0400 Body weight 112.04 kg Peter Ahumada Other [employer] Other 04-24-2022 09:15-0400 Diastolic blood pressure 78 mm[Hg] Peter Blake Other [employer] Other 04-24-2022 09:15-0400 Respiratory rate 18 /min Peter Blake Other [employer] Other 04-24-2022 09:15-0400 SaO2% (BldA) [Mass fraction] 96 % Peter Ahumada Other [employer] Other 04-24-2022 09:15-0400 Systolic blood pressure 124 mm[Hg] Peter Blake Other [employer] Other 11-02-2021 12:00-0400 Body height 182.88 cm Peter Shenshira Other [employer] Other 11-02-2021 12:00-0400 Body mass index (BMI) [Ratio] 34.44 kg/m2 Peter Blake Other [employer] Other 11-02-2021 12:00-0400 Body weight 115.21 kg Peter Blake Other [employer] Other 11-02-2021 12:00-0400 Diastolic blood pressure 66 mm[Hg] Peter Ahumada Other [employer] Other 11-02-2021 12:00-0400 Respiratory rate 16 /min Peter Ahumada Other [employer] Other 11-02-2021 12:00-0400 SaO2% (BldA) [Mass fraction] 97 % Peter Acshira Other [employer] Other 11-02-2021 12:00-0400 Systolic blood pressure 124 mm[Hg] Peter Ahumada Other [employer] Other 10-17-2021 09:15-0400 Body height 182.88 cm Peter Ahumada Other [employer] Other 10-17-2021 09:15-0400 Body mass index (BMI) [Ratio] 34.2 kg/m2 Peter Ahumada Other [employer] Other 10-17-2021 09:15-0400 Body weight 114.4 kg Peter Ahumada Other [employer] Other 10-17-2021 09:15-0400 Diastolic blood pressure 76 mm[Hg] Peter Ahumada Other [employer] [employer] Other 10-17-2021 09:15-0400 Respiratory rate 18 /min Peter Ahumada Other [employer] Other 10-17-2021 09:15-0400 SaO2% (BldA) [Mass fraction] 98 % Peter Ahumada Other [employer] Other 10-17-2021 09:15-0400 Systolic blood pressure 118 mm[Hg] Peter Ahumada Other [employer] Other 10-13-2021 13:28-0400 Body height 182.9 cm Kate Daniel MD Work Phone: [facility] 10-13-2021 13:28-0400 Body temperature 97.7 [degF] Kate Daniel MD Work Phone: [facility] 10-13-2021 13:28-0400 Body weight 115.21 kg Kate Daniel MD Work Phone: [facility] 10-13-2021 13:28-0400 Diastolic blood pressure 55 mm[Hg] Kate Daniel MD Work Phone: [facility] 10-13-2021 13:28-0400 Heart rate 68 /min Kate Daniel MD Work Phone: [facility] 10-13-2021 13:28-0400 SaO2% (BldA) [Mass fraction] 97 % Kate Daniel MD Work Phone: [facility] 10-13-2021 13:28-0400 Systolic blood pressure 112 mm[Hg] Kate Daniel MD Work Phone: [facility] 04-20-2021 08:45-0400 Body height 182.88 cm Peter Ahumada Other [employer] Other 04-20-2021 08:45-0400 Body mass index (BMI) [Ratio] 31.87 kg/m2 Peter Ahumada Other [employer] Other 04-20-2021 08:45-0400 Body weight 106.6 kg Peter Ahumada Other [employer] Other 04-20-2021 08:45-0400 Diastolic blood pressure 74 mm[Hg] Peter Ahumada Other [employer] Other 04-20-2021 08:45-0400 Respiratory rate 18 /min Peter Ahumada Other [employer] Other 04-20-2021 08:45-0400 SaO2% (BldA) [Mass fraction] 96 % Peter Ahumada Other [employer] Other 04-20-2021 08:45-0400 Systolic blood pressure 110 mm[Hg] Peter Ahumada Other [employer] Other Encounters Encounter Date Encounter Type Care Provider Facility Start: 01-27-2025 End: 01-27-2025 Patient encounter procedure [facility] Liz [facility] Work Phone: Start: 01-27-2025 End: 01-27-2025 ambulatory Peter Ahumada DO Work Phone: [facility] Work Phone: Start: 01-26-2025 End: 01-26-2025 ambulatory Christos Manrique MD Facility:[facility] Start: 12-08-2024 End: 12-08-2024 Patient encounter procedure Peter Liz DO -[facility] [place] Work Phone: Start: 12-08-2024 End: 12-08-2024 ambulatory Christos Manrique MD Facility:[facility] Start: 12-05-2024 End: 12-05-2024 Patient encounter procedure Peter Liz DO -[facility] [place] Work Phone: Start: 12-05-2024 End: 12-05-2024 ambulatory Peter Ahumada Facility:[facility] Start: 10-13-2024 End: 10-13-2024 Postop follow up visit related to original px Alber Hanies DO Work Phone: [facility] Comment on above: Sebaceous cyst (Prim arvin Dx) Start: 10-13-2024 End: 10-13-2024 ambulatory ALBER HAINES Not Available Start: 09-29-2024 End: 09-29-2024 ambulatory Peter Ahumada DO Work Phone: [facility] Work Phone: Start: 09-29-2024 End: 09-29-2024 Departed Referred Peter Ahumada DO Work Phone: [facility] [place] Work Phone: Start: 09-22-2024 End: 09-22-2024 ambulatory Christos Manrique MD Facility:[facility] Start: 09-10-2024 End: 09-10-2024 Office outpatient visit 15 minutes Alber H Yancy DO Work Phone: [facility] Comment on above: Sebaceous cyst (Prim arvin Dx) Start: 09-10-2024 End: 09-10-2024 ambulatory ALBER H ITZKOWITZ Not Available Start: 09-09-2024 End: 09-09-2024 ambulatory Peter Ahumada DO Work Phone: [facility] Work Phone: Start: 09-09-2024 End: 09-09-2024 Patient encounter procedure Peter Ahumada DO Work Phone: [facility] [place] Work Phone: Start: 09-01-2024 End: 09-01-2024 ambulatory Christos Manrique MD Facility:[facility] Start: 07-17-2024 End: 07-17-2024 ambulatory Robert Martinez Facility:[facility] Start: 07-17-2024 End: 07-17-2024 Discharged Recurring Peter Ahumada DO Work Phone: [facility]-Physical Therapy [place] Work Phone: Start: 06-23-2024 End: 06-23-2024 ambulatory Christos Manrique MD Facility:[facility] Start: 06-10-2024 End: 06-10-2024 ambulatory Peter Ahumada DO Work Phone: [facility] Work Phone: Start: 06-10-2024 End: 06-10-2024 Patient encounter procedure Peter Ahumada DO Work Phone: [facility] [place] Work Phone: Start: 06-04-2024 End: 06-04-2024 Patient encounter procedure Peter Ahumada DO Work Phone: [facility] [place] Work Phone: Start: 06-04-2024 End: 06-04-2024 ambulatory Peter Ahumada DO Work Phone: [facility] Work Phone: Start: 05-22-2024 End: 05-22-2024 Patient encounter procedure Rahul Castillo DO Work Phone: [facility] Comment on above: Lumbosacral radiculo yaritza (Primary Dx) Start: 05-22-2024 End: 05-22-2024 ambulatory RAHUL CASTILLO Not Available Start: 05-22-2024 End: 05-22-2024 Bamboo flowsheet Rahul Castillo DO Work Phone: [facility] Start: 05-22-2024 End: 05-22-2024 Bamboo flowsheet Rahul Castillo DO Work Phone: [facility] Start: 05-19-2024 End: 05-19-2024 ambulatory DO Peter Ahumada Work Phone: [facility] Work Phone: Start: 05-19-2024 End: 05-19-2024 Discharged Recurring DO Peter Ahumada Work Phone: [facility]-Physical Therapy [place] Work Phone: Start: 03-12-2024 End: 03-12-2024 Patient encounter procedure DO Peter Ahumada Work Phone: [facility] [place] Work Phone: Start: 03-12-2024 End: 03-12-2024 ambulatory DO Peter Ahumada Work Phone: [facility] Work Phone: Start: 03-06-2024 End: 03-06-2024 ambulatory DO Peter Ahumada Work Phone: [facility] Work Phone: Start: 03-06-2024 End: 03-06-2024 Patient encounter procedure DO Peter Ahumada Work Phone: [facility] [place] Work Phone: Start: 03-05-2024 End: 03-05-2024 Patient encounter procedure DO Peter Ahumada Work Phone: [facility] [place] Work Phone: Start: 03-05-2024 End: 03-05-2024 ambulatory DO Peter Ahumada Work Phone: [facility] Work Phone: Start: 02-28-2024 End: 02-28-2024 ambulatory ALBER HAINES Not Available Start: 02-13-2024 End: 02-13-2024 ambulatory DO Peter Ahumada Work Phone: [facility] Work Phone: Start: 02-13-2024 End: 02-13-2024 Patient encounter procedure DO Peterluiza Ahumada Work Phone: [facility] Work Phone: Start: 02-13-2024 End: 02-13-2024 Patient encounter procedure DO Peterluiza Ahumada Work Phone: [facility] Start: 02-13-2024 End: 02-13-2024 ambulatory DO Peter Ahumada Work Phone: [facility] Work Phone: Start: 02-07-2024 End: 02-07-2024 ambulatory ALBER HAINES Not Available Start: 01-29-2024 End: 01-29-2024 Admission to same day surgery center DO Peter Ahumada Work Phone: [facility]gery [facility] [place] Start: 01-29-2024 End: 01-29-2024 ambulatory DO Peter Ahumada Work Phone: [facility] Work Phone: Start: 01-15-2024 End: 01-15-2024 ambulatory DO Peter Ahumada Work Phone: [facility] Work Phone: Start: 01-15-2024 End: 01-15-2024 Departed Referred DO Peter Ahumada Work Phone: [facility]-Pre-Surgical Testing Work Phone: Start: 01-15-2024 End: 01-15-2024 Patient encounter procedure DO Peter Ahumada Work Phone: [facility]-Pre-Surgical Testing Work Phone: Start: 01-14-2024 End: 01-14-2024 ambulatory DO Peter Ahumada Work Phone: [facility] Work Phone: Start: 01-14-2024 End: 01-14-2024 Patient encounter procedure DO Peter Ahumada Work Phone: [facility] Work Phone: Start: 01-14-2024 End: 01-14-2024 ambulatory DO Peter Ahumada Work Phone: [facility] Work Phone: Start: 01-14-2024 End: 01-14-2024 Patient encounter procedure DO Peter Ahumada Work Phone: [facility]-X[facility] Start: 01-03-2024 End: 01-03-2024 ambulatory ALBER HAINES Not Available Start: 12-31-2023 End: 12-31-2023 ambulatory DO Peter Blake Work Phone: [facility] Work Phone: Start: 12-31-2023 End: 12-31-2023 Patient encounter procedure DO Peter Ahumada Work Phone: [facility] Work Phone: Start: 12-31-2023 End: 12-31-2023 ambulatory DO Peter Blake Work Phone: [facility] Work Phone: Start: 12-31-2023 End: 12-31-2023 Patient encounter procedure DO Peter Blake Work Phone: [facility] [place] Work Phone: Start: 12-31-2023 End: 12-31-2023 ambulatory DO Peter Ahumada Work Phone: [facility] Work Phone: Start: 12-31-2023 End: 12-31-2023 Patient encounter procedure DO Peter Acshira Work Phone: [facility] [place] Work Phone: Start: 12-28-2023 End: 12-28-2023 ambulatory DO Peter Acshira Work Phone: [facility] Work Phone: Start: 12-28-2023 End: 12-28-2023 Patient encounter procedure DO Peter Ahumada Work Phone: [facility]-X[facility] [place] Work Phone: Start: 12-27-2023 End: 12-27-2023 ambulatory DO Peter Ahumada Work Phone: [facility] Work Phone: Start: 12-27-2023 End: 12-27-2023 Patient encounter procedure DO Peter Ahumada Work Phone: [facility] Work Phone: Start: 12-19-2023 Non-patient / Non-visit DO Terry Ahumada Work Phone: [facility] Physician [facility] Work Phone: Start: 12-17-2023 End: 12-17-2023 Emergency department patient visit DO Peter Ahumada Work Phone: [facility]-Emergency Room Work Phone: Start: 12-12-2023 End: 12-12-2023 ambulatory ALBER Judd YANCY Not Available Start: 12-03-2023 End: 12-03-2023 ambulatory DO Peter Ahumada Work Phone: [facility] Work Phone: Start: 12-03-2023 End: 12-03-2023 Patient encounter procedure DO Peter Ahumada Work Phone: [facility] Work Phone: Start: 08-27-2023 End: 08-27-2023 ambulatory Peter Ahumada Other [employer] Other Start: 08-27-2023 Telephone encounter Peter Ahumada [facility] Start: 08-22-2023 End: 08-22-2023 ambulatory DO Peterluiza Ahumada Work Phone: [facility] Work Phone: Start: 08-22-2023 End: 08-22-2023 Patient encounter procedure DO Peter Ahumada Work Phone: [facility] [place] Work Phone: Start: 08-20-2023 End: 08-20-2023 ambulatory Peter Ahumada Other [employer] Other Start: 08-20-2023 Telephone encounter Peter Ahumada [facility] [place] Start: 08-13-2023 Telephone encounter Peter Acshira [facility] [place] Start: 08-13-2023 End: 08-13-2023 ambulatory DO Peter Blake Work Phone: [employer] Other Start: 08-13-2023 End: 08-13-2023 Patient encounter procedure DO Peter Ahumada Work Phone: [facility] Work Phone: Start: 08-06-2023 End: 08-06-2023 ambulatory Peter Ahumada Other [employer] Other Start: 08-06-2023 Telephone encounter Peter Ahumada [facility] [place] Start: 06-11-2023 End: 06-11-2023 ambulatory Peter Ahumada Other [employer] Other Start: 06-11-2023 Telephone encounter Peter Blake [facility] [place] Start: 06-08-2023 Office outpatient vi sit 25 minutes Peter Ahumada [facility] [place] Start: 06-08-2023 End: 06-08-2023 ambulatory DO Peterluiza Ahumada Work Phone: [facility] Work Phone: Start: 06-08-2023 End: 06-08-2023 Patient encounter procedure DO Peter Ahumada Work Phone: [facility]-X[facility] [place] Work Phone: Start: 06-08-2023 End: 06-08-2023 Patient encounter procedure DO Peter Ahumada Work Phone: [facility] [place] Work Phone: Start: 05-25-2023 End: 05-25-2023 Patient encounter procedure DO Peter Ahumada Work Phone: [facility]-XRay [facility] Work Phone: Start: 05-24-2023 End: 05-24-2023 ambulatory Peter Ahumada Other [employer] Other Start: 05-24-2023 Office outpatient vi sit 25 minutes Peter Ahumada [facility] [place] Start: 05-24-2023 End: 05-24-2023 Patient encounter procedure DO Peter Ahumada Work Phone: [facility] [place] Work Phone: Start: 03-21-2023 End: 03-21-2023 ambulatory Peter Ahumada Other [employer] Other Start: 03-21-2023 Office outpatient vi sit 15 minutes Peter Ahumada [facility] [place] Start: 03-19-2023 End: 03-19-2023 ambulatory DO Peter Ahumada Work Phone: [facility] Work Phone: Start: 03-19-2023 End: 03-19-2023 Patient encounter procedure DO Peter Ahumada Work Phone: [facility] [place] Work Phone: Start: 01-15-2023 End: 01-15-2023 ambulatory DO Peter Ahumada Work Phone: [facility] Work Phone: Start: 01-15-2023 End: 01-15-2023 Patient encounter procedure DO Peter Ahumada Work Phone: [facility]ound [facility] Start: 01-12-2023 End: 01-12-2023 ambulatory Peter Ahumada Other [employer] Other Start: 01-12-2023 Telephone encounter Peter Ahumada [facility] Start: 11-23-2022 End: 11-23-2022 Patient encounter procedure DO Peter Ahumada Work Phone: [facility] [place] Work Phone: Start: 11-01-2022 End: 11-01-2022 Emergency department patient visit DO Peter Ahumada Work Phone: [facility]-Emergency Room Work Phone: Start: 10-31-2022 End: 10-31-2022 ambulatory DO Peter Ahumada Work Phone: [facility] Work Phone: Start: 10-31-2022 End: 10-31-2022 Patient encounter procedure DO Peterluiza Shenshira Work Phone: [facility] [place] Work Phone: Start: 05-25-2022 End: 05-25-2022 Departed Referred DO Peter Ahumada Work Phone: [facility] [place] Start: 05-25-2022 End: 05-25-2022 ambulatory DO Peter Ahumada Work Phone: [employer] Other Start: 05-25-2022 Office outpatient vi sit 15 minutes Peter Ahumada [facility] Start: 04-24-2022 End: 04-24-2022 ambulatory Peter Ahumada Other [employer] Other Start: 04-24-2022 Office outpatient vi sit 25 minutes Peter Ahumada [facility] Start: 04-19-2022 End: 04-19-2022 ambulatory DO Peter Ahumada Work Phone: [facility] Work Phone: Start: 04-19-2022 End: 04-19-2022 Patient encounter procedure DO Peter Ahumada Work Phone: [facility] [place] Start: 11-15-2021 End: 11-15-2021 ambulatory Peter Ahumada Other [employer] Other Start: 11-15-2021 Telephone encounter Peter Ahumada [facility] Start: 11-02-2021 End: 11-02-2021 ambulatory Peter Ahumada Other [employer] Other Start: 11-02-2021 Office outpatient vi sit 15 minutes Peter Ahumada [facility] Start: 10-17-2021 End: 10-17-2021 ambulatory Peter Ahumada Other [employer] Other Start: 10-17-2021 Office outpatient vi sit 25 minutes Peter Ahumada [facility] Start: 10-13-2021 End: 10-13-2021 Patient encounter procedure Kate Daniel MD Work Phone: General Surgery Comment on above: Liver pain (Primary Dx) Start: 04-20-2021 Office outpatient vi sit 25 minutes Peter Ahumada [facility] Start: 02-22-2021 End: 02-22-[address] [...] phalanx of left little finger, initial encounter [O83.405H] Procedures Date Procedure Procedure Detail Performing Clinician [...] P,Tdap,Td Vaccine (2 - Td or Tdap) [facility] Start: 05-22-2024 End: 05-22-2024 Patient encounter procedure 05/22/2024 2:30 PM EDT Procedure Visit [facility] [address] [facility] [address] [place] [address] Rahul Castillo DO [address] [place] [id number] Arrived [facility] Comment on above: Arrived Start: 03-23-2024 Covid-19 Vaccine ( season) Covid-19 Vaccine ( season) [facility] Start: 03-23-2024 Influenza vaccination Influenz a Vaccine (#1) [facility] Start: 03-05-2024 [facility] Start: 02-13-2024 [...] [facility] Start: 12-31-2023 Patient referral [facility] Work Phone: Start: 2022 Screening for malign ant neoplasm of breast Mammogram Screening [facility] Start: 03-23-2021 Influenza vaccination INFLUENZA (#1) [facility] Start: 2012 HPV TESTING HPV TESTING [facility] Start: 2003 PAP TESTING PAP TESTING [facility] Start: 2003 Screening for malign ant neoplasm of cervix Cervical Cancer Screening [facility] Start: 2001 Hepatitis B Vaccine (1 of 3 - 19+ 3-dose series) Hepatitis B Vaccine (1 of 3 - 19+ 3-dose series) [facility] Start: 2001 Urine microalbumin profile DTA P,TDAP,TD (1 - Tdap) [facility] Start: 2000 Anxiety Screening Anxiety Screening [facility] Start: 2000 [facility]: 2000 HEPATITIS C SCREENING HEPATITIS C [facility] Start: 2000 Hepatitis C screening Hepatitis C [facility] Start: 2000 HIV SCREENING HIV SCREENING [facility] Start: 2000 HIV screening HIV Screening [facility] Start: 1994 Adult depression scr eening assessment DEPRESSION SCREENING [facility] Start: 1987 COVID-19 VACCINE (1) COVID-19 VACCIN E (1) [facility] Comprehensive metabo lic 1999 panel - Serum or Plasma [facility] Comprehensive metabo lic 1999 panel - Serum or Plasma [facility] Comprehensive metabo lic 1999 panel - Serum or Plasma [facility] Glucose measurement estimated from glycated hemoglobin [facility] Patient Education [facility] Work Phone: Patient referral [facility] Work Phone: RF Gastrointestinal tract upper Single view W air contrast PO [facility] US Gallbladder [facility] XR Elbow - right GE 3 Views [facility] Immunizations Immunization Date Immunization Notes Care Provider Fa cility 12-17-2023 tetanus toxoid, reduced diphtheria toxoid, and acellular pertussis vaccine, adsorbed DO Peter Ahumada Work Phone: [facility] 06-07-2022 influenza, injectable, quadrivalent, preservative free Peter Ahumada Other [facility] 04-09-2020 influenza, seasonal, injectable Peter Kuns Other [facility] Other 03-10-2019 influenza, seasonal, injectable Patient Objection Peter Ahumada Other [facility] Other 02-18-2018 tetanus toxoid, reduced diphtheria toxoid, and acellular pertussis vaccine, adsorbed Peter Shens Other [facility] NEGATED: Highlighted row has not occurred!06-07-2022 influenza, seasonal, injectable Patient Objection Peter Shens Other [facility] Other NEGATED: Highlighted row has not occurred!04-09-2020 influenza, seasonal, injectable Peter Kuns Other [facility] Other NEGATED: Highlighted row has not occurred!03-10-2019 influenza, seasonal, injectable Patient Objection Peter Ahumada Other [employer] Other Payers Date Payer Category Payer Self-pay [id number] 2022 Unknown 2018 Medicaid [facility] [id number] 2018-Present [phone] [address] [place] [address] Medicaid [id number] 2018 Medicaid [facility] [employer] MEDICA[employer] [id number] 2018-2022 [address] [place] [address] Medicaid [id number] 2018 Private Health Insurance [facility] MEDICAID [id number] 2018 Medicaid [id number] 1982 Unknown [id number] [id number] .593 1982 Unknown [id number] 2.16.840.1.635741.3.579.2 .1258 1982 Unknown [id number] 2.16.840.1.018217.3.579.2 .1258 1982 Unknown [id number] 2.16.840.1.520282.3.579.2 .1258 1982 Unknown [id number] 2.16.840.1.735021.3.579.2 .1258 1982 Unknown [id number] 2.16.840.1.813336.3.579.2 .1258 1982 Unknown [id number] 2.16.840.1.104425.3.579.2 .1258 1982 Unknown [id number] 2.16.840.1.725938.3.579.2 .1258 1982 Unknown [id number] 2.16840.1.739698.3.579.2 .1982 Unknown [id number] 2.16.840.1.982493.3.579.2 .1982 Unknown [id number] 2.16.840.1.123059.3.579.2 .1982 Unknown [id number] 2.16.840.1.055765.3.579.2 .1982 Unknown [id number] 2.16.840.1.147688.3.579.2 .196 1959 Unknown [id number] Unknown [id number] Unknown [id number] 2.16.840.1.555011.3.579.2 .531 Unknown [id number] 2.16.840.1.566338.3.579.2 .531 Unknown [id number] 2.16.840.1.180297.3.579.2 .531 Unknown [id number] 2.16.840.1.414633.3.579.2 .531 Unknown [id number] 2.16.840.1.150335.3.579.2 .531 Unknown [id number] 2.16.840.1.678868.3.579.2 .531 Unknown [id number] 2.16.840.1.927232.3.579.2 .531 Unknown [id number] 2.840.1.567898.3.579.2 .531 Unknown [id number] 2.16.840.1.587823.3.579.2 .531 Social History Date Type Detail Facility Start: 03-03-2021 End: 09-09-2024 Tobacco smoking status ARIS Ex-smoker [facility] Work Phone: End: 06-22-2006 History of tobacco use Current smoker [facility] Work Phone: Start: 03-03-2021 End: 01-03-2024 Tobacco use and exposure Smokeless tobacco non-user [facility] Work Phone: Start: 10-13-2021 Alcohol intake Current drinker of alcohol (finding) [facility] Start: 03-03-2021 History SDOH Alcohol Comment occ [facility] Start: 03-03-2021 Tobacco Comment Smoked 1 pack a week, quit in 2005, can't remember start date [facility] Start: 1980 Sex Assigned At Not on file [facility] Start: 06-30-2020 End: 09-10-2024 Sex Assigned At [employer] Other Start: 11-25-2015 End: 02-15-2021 Tobacco smoking status ARIS Never smoked tobacco (finding) [facility] Start: 1980 Sex Assigned At Female [facility] Start: 11-25-2015 Alcoholic beverage intake Not Asked [facility] Start: 06-30-2020 End: 09-10-2024 History of Social function [facility] National Score (1-10 0), lower number is lower risk Not on file [facility] Start: 10-19-2020 End: 05-11-2021 Exposure to SARS-CoV-2 (event) Not sure [facility] End: 06-22-2006 History of tobacco use Cigarette Smoker [facility] Start: 02-04-2024 End: 09-30-2024 Alcoholic beverage intake Ex-drinker (finding) [facility] Start: 01-25-2023 Tobacco Comment Quit smoking 10 years ago [facility] Start: 01-25-2023 Alcohol Comment caffeine 1-2 cups/day [facility] Start: 01-18-2023 Gender identity Identifies as female gender (finding) [facility] Start: 01-18-2023 Sexual orientation Heterosexual (finding) [facility] Start: 06-05-2024 End: 09-30-2024 Sex Female (finding) [facility] [...] recorder, note dictated by Dr. Peter Ahumada [facility] Work Phone: [phone] History of Present illness Narrative* Alber Hainse, DO - 10/13/2024 1:15 PM EDT Images [...] cyst. I'll seeher PRN documented in this encounterE[facility] [id number] History of Present illness Narrative* Alber Haines [...] 90 mcg/act inhaler Every 4 hours HYDROcodone-acetaminophen (G[place]) 5-325 MG tablet TAKE 1 TABLET BY [...] like to schedule it. documented in this [facility]02-18-2025 Evaluation note* Author Hyacinth Hutton [facility] Authored September 09, 2024 3:43pm The above note written by SIOMARA Bolden acting as human recorder, note dictated by Dr. Peter Ahumada. [facility] Work Phone: [phone] History of Present illness Narrative* CESAR Rich - 05/22/2024 2:30 PM EDT Images from the original note were not included. Reason for Appointment: EMG Patient: Darling Khanna : 1980 EMG Computer: [employer] Referring Physician: Dr. Robert Martinez EMG: BLE business office technician: Cayetano Moreno RT(R) Office Location: [place] Reason for EMG: c/o low back pain into left hip, pain in right knee, pain in bilateral heels. No hxof DM. Not on blood thinners. Comments: Procedure was explained to the patient who expressed understanding. Patient appeared to have tolerated the test well despite some discomfort due to the nature of the test. documented in this [facility]08-15-2024 Evaluation note* Author Hyacinth Hutton [facility] Authored March 06, 2024 2: 47pm The above note written by Thuan STRINGER acting as human recorder, note dictated by Dr.Bryan Ahumada. [facility] Work Phone: [phone]) 851-739401-22-2024 Evaluation note* Encounter Date Diagnosis Assessment Notes Treatment Notes Treatment Clinical Notes Jul, Abnormal mammogram of left breast (ICD-10 - R92.8) [employer] Other 01-15-2024 Evaluation note* Encounter Date Diagnosis Assessment Notes Treatment Notes Treatment Clinical Notes Jul, Abnormal mammogram (ICD-10 - R92.8) [employer] Other 11-17-2023 Evaluation note* Encounter Date Diagnosis [...] modification. May, Acute bronchitis (ICD-10 - J20.9) [employer] Other 11-02-2023 Evaluation note* Encounter Date Diagnosis [...] exercise regimen; we will continue to monitor. [employer] Other 08-30-2023 Evaluation note* Encounter Date Diagnosis [...] been ordered to use for allergic reaction. [employer] Other 06-23-2023 Evaluation note* Encounter Date Diagnosis Assessment Notes Treatment Notes Treatment Clinical Notes Dec, Mass of upper outer quadrant of left breast (ICD-10 - N63.21) [employer] Other 11-03-2022 Evaluation note* Encounter Date Diagnosis [...] sent to the lab to determine pathology. [employer] Other 10-03-2022 Evaluation note* Encounter Date Diagnosis [...] excisional biopsy. Apr, Hyperlipidemia (ICD-10 - E78.5) [employer] Other 04-13-2022 Evaluation note* Encounter Date Diagnosis Assessment Notes Treatment Notes Treatment Clinical Notes Oct, Neoplasm of uncertain behavior of skin (ICD-10 - D48.5) The patient does have three lesions located on her left lateral calf, right upper thigh, and left vertex region of the scalp that are red, inflammed, and are abnormally shaped that were removed via shave and sent for pathology. [employer] Other 03-28-2022 Evaluation note* Encounter Date Diagnosis [...] eye. These will be removed with hyfrecator. [employer] Other 03-24-2022 NoteHNO ID: [id number] Author: Kate Daniel MD Service: ? Author Type: Physician Type: Progress Notes Filed: 10/17/2021 1:50 PM Note Text: Assessment ESTABLISHED PATIENT Darling Khanna is a 40 year old female with a right posterior liver subcapsular fluid collection ? 03/03/2021: Patient presented to [facility] on 02/08/2021 for 2 days for [...] US of ovaries yesterday at [facility]. Scheduled for upper GI at end of month. Gained?50 pounds since July?(was in [place] for 3 months, drank a lot); diagnosed [...] well. She did spend 3 months in [place] and did not have any issues, hospitalizations [...] which included preparing to see the patient, [id number] patient care and completing clinical documentation. Kate Daniel [facility]03-24-2022 Nurse Note* Jayne Aguila Ma - 10/13/2021 1:32 PM EDT What is the reason for your visit today? Follow up Who is your referring physician? Are you having poor oral intake? NO Have you had unintentional weight loss of 15 lbs/7 Kg in the last 3-6 months? NO Bowels: regular Wound: Temperature: No Drains: No documented in this encounterUniversity [facility]03-24-2022 History of Present illness Narrative* Kate Daniel MD - 10/13/2021 1:30 PM EDT Assessment ESTABLISHED PATIENT Darling Khanna is a 40 year old female with a right posterior liver subcapsular fluid collection 03/03/2021: Patient presented to [facility] on 02/08/2021 for 2 days for [...] US of ovaries yesterday at [facility]. Scheduled for upper GI at end of month. Gained 50 pounds since July (was in [place] for 3 months, drank a lot); diagnosed [...] well. She did spend 3 months in [place] and did not have any issues, hospitalizations [...] which included preparing to see the patient, [id number] patient care and completing clinical documentation. Kate Daniel MD documented in this encounterUniversity [facility]09-29-2021 Evaluation note* Encounter Date Diagnosis Assessment Notes [...] loss since starting a dieting plan called [employer]. Encouraged her to continue monitoring her diet as she voices a goal of getting under 200lbs. We will continue to monitor. [employer] Other 09-16-2021 NoteHNO ID: [id number] Author: Kate Daniel MD Service: ? Author Type: Physician Type: Progress Notes Filed: 04/11/2021 3:19 PM Note Text: Assessment ESTABLISHED PATIENT Darling Khanna is a 40 year old female with a right posterior liver subcapsular fluid collection 03/03/2021: Patient presented to [facility] on 02/08/2021 for 2 days for [...] US of ovaries yesterday at [facility]. Scheduled for upper GI at end of month. Gained 50 pounds since July (was in [place] for 3 months, drank a lot); diagnosed [...] which included preparing to see the patient, [id number] patient care and completing clinical documentation. Kate Daniel [facility]09-01-2021 NoteHNO ID: [id number] Author: William De León MD Service: ? [...] findings to suggest etiology Pre-conference plan (from [facility]): - Observation and serial imaging Imaging Review: - January 2021 - CT Abd/Pelvis and MRI Final Consensus Recommendation(s): - No clear etiology of right posterior subcapsular fluid collection - Fluid consistency is not consistent with a hematoma - No underlying masses or intrinsic liver pathology Final recommendation(s) differ from pre-conference plan? (Y/N) - No William De León MD [facility] Surgical Fellow cSum[facility]21 NoteHNO ID: [id number] Author: Kate Daniel MD Service: ? Author [...] 40 year old female Patient presented to [facility] on 02/08/2021 for 2 days for [...] US of ovaries yesterday at [facility]. Scheduled for upper GI at end of month. Gained 50 pounds since July (was in [place] for 3 months, drank a lot); diagnosed [...] was malignant. Seen by Dr. Haines on [facility], in [facility]; denies chemotherapy or radiation. Hernia repair Social [...] rhythm. Abdomen: Abdomen so (more content not included)...[facility] 12-28-2020 NoteHNO ID: [id number] Author: Tracey Hair Ma Service: ? Author Type: ? Type: Progress Notes Filed: 12/28/2020 4:25 PM Note Text: Dispensed XL/XXL Reaction brace for the Right knee. Dispensed by [employer]. Instructions were given on application/adjustments. She will f/u as scheduled/prn. Tracey Hair MA,[facility] 12-28-2020 NoteHNO ID: [id number] Author: Ishan Yusuf, Service: ? Author Type: [...] was performed today. CLINICAL IMPRESSION / ASSESSMENT: (S62.606D) Closed nondisplaced fracture of proximal phalanx of [...] PT if not improving Procedures Ishan Yusuf, [facility]05-11-2021 NoteHNO ID: [id number] Author: Ishan Yusuf, DO Service: ? Author [...] results and radiologist's interpretation, available in the [facility] health record. Images were reviewed with the patient/family members in the office today. My personal interpretation of the performed imaging is healing proximal phalanx fracture CLINICAL IMPRESSION / ASSESSMENT: (P64.626A) Closed nondisplaced fracture of proximal phalanx of left little finger, initial encounter (primary encounter diagnosis) PLAN: Start weaning out of the splint at this time Can start OT at this time ROM as tolerated Follow-up in 3-4 weeks Procedures Ishan Yusuf, [facility]05-11-2021 NoteHNO ID: [id number] Author: Gayatri Chilel RT(R) Service: ? Author Type: Chairman & Co Founder Type: Progress Notes Filed: 11/30/2020 3:44 PM [...] BY: RT Suzanna(R) November 30, 2020 3:43 [facility]04-29-2021 NoteHNO ID: [id number] Author: Lexus Villareal RT(R) Service: ? Author Type: Chairman & Co Founder Type: Progress Notes Filed: 11/18/2020 3:47 PM [...] Lilly Villareal, RT(R) November 18, 2020 3:45 [facility]04-29-2021 NoteHNO ID: [id number] Author: Ishan Yusuf, DO Service: ? Author [...] results and radiologist's interpretation, available in the [facility] health record. Images were reviewed with the patient/family members in the office today. My personal interpretation of the performed imaging is intra-articular proximal phalanx fracture CLINICAL IMPRESSION / ASSESSMENT: (S62.206A) Closed nondisplaced fracture of proximal phalanx of left little finger, initial encounter (primary encounter diagnosis) PLAN: Placed her in aluminum splint Will discuss case with Dr. [place] due to some progression of depression Follow-up accordingly Procedures Ishan Yusuf, [facility]04-15-2021 NoteHNO ID: [id number] Author: Bob Millan Service: ? Author Type: Physician Type: Progress Notes Filed: 11/04/2020 2:12 PM Note Text: [facility] Office Visit Documentation Note [facility] Sports Medicine [facility]opa[facility] Rheumat[facility] [place] REASON FOR VISIT / CHIEF COMPLAINT SERVICE [...] results and radiologist's interpretation, available in the [facility] health record. Images were reviewed with the patient/family members in the office today. My personal interpretation of the performed imaging is Has IA prox phalanx fracture at PIP ASSESSMENT / PLAN CLINICAL IMPRESSION / ASSESSMENT: (B41.129D) Closed nondisplaced fracture of proximal phalanx of [...] plan as detailed above. Bob Millan D.O. [facility]opa[facility] [place] Team Physician, [facility] Consulting Physician, [place], Share Dairy Farmer [phone] Patient verbalizes understanding and agrees with the treatment plan as detailed above.[facility]* Diagnosis Liver pain- Primary Abdominal pain, other specified site documented in this encounter [facility] CenterEvaluation noteNo InformationNort [employer] Other Evaluation noteNo assessment information available [facility] Work Phone: evaluation note* Diagnosis Onset Date Resolution Status Ground-level fall acute Laceration of knee, left acu te Right elbow pain acute [facility] Work Phone: evaluation note* Diagnosis Onset Date Resolution Status Ground-level fall acute Laceration of knee, left acu te Right elbow pain acute Elbow fracture, right acute Hypothyroidism acute Laceration of knee, left acu te [facility] Work Phone: evaluation note* Diagnosis Onset Date Resolution Status Ground-level fall acute Laceration of knee, left acu te Right elbow pain acute Elbow fracture, right acute Hypothyroidism acute Laceration of knee, left acu te Fracture of radial neck, right, closed acute [facility] Work Phone: evaluation note* Diagnosis Onset Date Resolution Status Ground-level fall acute Laceration of knee, left acu te Right elbow pain acute Elbow fracture, right acute Hypothyroidism acute Laceration of knee, left acu te Fracture of radial neck, right, closed acute Fracture of radial neck, right, closed acute [facility] Work Phone: evaluation note* Diagnosis Onset Date Resolution Status Ground-level fall acute Laceration of knee, left acu te Right elbow pain acute Elbow fracture, right acute Hypothyroidism acute Laceration of knee, left acu te Fracture of radial neck, right, closed acute Fracture of radial neck, right, closed acute Fracture of radial neck, right, closed acute [facility] Work Phone: Evaluation note* Author Hyacinth Hutton [facility] Authored March 06, 2024 2: 47pm The above note written by Thuan STRINGER acting as human recorder, note dictated by Dr.Bryan Ahumada. [facility] Work Phone: evaluation note* Diagnosis Closed nondisplaced fracture of proximal phalanx of left little finger, initial encounter documented in this encounter [facility]* Diagnosis Lumbosacral radiculopathy- Primary Thoracic or lumbosacral neuritis or radiculitis, unspecified [facility] Diagnosis Onset Date Resolution Status Admit Date Bilateral foot pain acute Novem 2023 2:36pm Fatty liver acute May 2:36pm GERD (gastroesophageal reflu x disease) acute June 10, 2 024 2:36pm Hypothyroidism acute May 232023 2:36pm Pre-diabetes acute May 2:36pm [facility] Work Phone: Evaluation note* Author Hyacinth Hutton [facility] Authored September 09, 2024 2:43pm The above note written by SIOMARA Bolden acting as human recorder, note dictated by Dr. Peter Ahumada. [facility] Work Phone: Evaluation note* Diagnosis Sebaceous cyst- Primary [facility] Diagnosis Sebaceous cyst- Primary [facility] Narrative - Reported* Type Description Date Medical History asthma Medical History HPV Medical History f/u with [facility] for PLASTIC AND RECONSTRUCTIVE SURGEON needs Medical History Inclusion cyst Surgical History jaw surgery for underbite Surgical History breast biopsy 2018 Hospitalization History see surgical hx [employer] Other Hospital Discharge instructions Additional Instructions [place] diet as tolerated Increase oral fluids Take the diclofenac twice a day as needed for pain and inflammation Take oxycodone every 6 hours for severe pain Follow-up with your family doctor for recheck I also gave you the number for gastroenterology Return to the ER for more severe pain high fever vomiting or any other concerns [facility] Work Phone: Hospital Discharge instructions Additional Instructions S[facility]ures [facility] days[facility] Work [facility]: [facility] Discharge instructions Additional [...] directed for pain unless a prescription was provided.[facility] Work Phone: reason for referral (narrative)No reason for referral information availableSelect Medical [facility] Clinic [facility] Work Phone: reason for visit Narrative* Other Medical (Routine) - Closed Specialty Diagnoses / Procedures Referred By Clarisse t Referred To Contact Neurology Diagnoses Sciatica, left side Procedures DE NEEDLE EMG EA EXTREMTY W/PARASPINL AREA COMPLETE DE NERVE CONDUCTION STUDIES 9-10 STUDIES Robert Martinez MD [address] [place] [address] Phone: tel: fax: Shakeel Rios MD [address] [place] [address] Phone: tel: fax: Referral ID Status Reason Start Date Expiration Date V isits Requested Visits Authorized [id number] Closed Perform Procedure 05/13/2024 11/09/2024 1 1 [...] content) DATE CREATED AUTHOR 02/25/2021 [facility] DATE CREATED AUTHOR AUTHOR'S ORGANIZ ATION 10/18/2021 [facility] DATE CREATED AUTHOR AUTHOR'S ORGANIZ ATION 10/14/2024 [facility] DATE CREATED AUTHOR AUTHOR'S ORGANIZ ATION 02/07/2025 [facility] DATE CREATED AUTHOR AUTHOR'S ORGANIZ ATION 02/07/2025 [facility] Source Comments (unrecognize d section and content) In the event this informatio n is protected by the Federal Confidentiality of Alcohol and Drug Abuse Patient Records regulations: The Federal rules restrict any use of the information to criminally investigate or prosecute any alcohol or drug abuse patient.[facility] CenterIn the event this information is protected by the Federal Confidentiality of Alcohol and Drug Abuse Patient Records regulations: The Federal rules restrict any use of the information to criminally investigate or prosecute any alcohol or drug abuse patient.[facility] CenterIn the event this information is protected by the Federal Confidentiality of Alcohol and Drug Abuse Patient Records regulations: The Federal rules restrict any use of the information to criminally investigate or prosecute any alcohol or drug abuse patient.[facility] Reason for Visit (unrecogniz ed section and [...] Primary Care Provider, Attending Provi dani Active Radioisotope Technician Relationship Specialty Start Date End Date Peter Ahumada DO [address] [place] [phone] PCP - General Family Practice 11/22/15 Team Status: Inactive Member Role Status Dates Peter Ahumada DO Primary Care Provider Active BAYLEE Jimenez- Emergency Provider Active Team Status: Inactive Member Role Status Dates Peter Ahumada DO Primary Care Provider Active Koki Elkins ([facility]) , ELEMENTARY EDUCATION TEACHER Attending Provider Active Team Status: Inactive Member [...] Active Sta rt: February 13, 2024 Chas Meaz , DO Attending Provider Active S tart: [...] March 12, 2024 End: March 12, 2024 Radioisotope Technician Relationship Specialty Start Date End Date Peter Ahumada DO [address] [place] [id number] PCP - General Family Medicine 11/22/15 Team Status: Inactive Member Role Status Dates Peter Ahumada DO Primary Care Provider Active Sta rt: May 19, 2024 End: May 19, 2024 Robert Martinez DPM MS Attending Provider Active Start: May 19, 2024 End: May 19, 2024 Radioisotope Technician Relationship Specialty Start Date End Date Peter Ahumada MD [facility] [place] [phone] PCP - General 01/25/23 Radioisotope Technician Relationship Specialty Start Date End Date Peter Ahumada MD [facility] [place] [phone] PCP - General 01/25/23 Team Status: Inactive [...] September 09, 2024 End: September 09, 2024 Radioisotope Technician Relationship Specialty Start Date End Date Peter Ahumada MD [facility] [place] [phone] PCP - General 01/25/23 Team Status: Inactive Member Role Status Dates Alber Haines DO Attending Provider Active Start: September 29, 2024 End: September 29, 2024 Radioisotope Technician Relationship Specialty Start Date End Date Peter Ahumada MD [address] [place] [phone] PCP - General 01/25/23 Team Status: Inactive [...] BE BASED ON THE PRIMARY CLINICAL RECORDS. [facility] provides no warranty or guarantee of the accuracy or completeness of information in this document.
--- NOTE | 2025-03-04 08:07 | PM.CN ---
Consult Note: HPI Data of Consult Patient: known to practice within the last 3 years Consult date: 03/04/25 Requesting Physician: Anastasiya Thomas NP Primary Care Provider: Peter Lozano DO Consult Narrative Reason for consult: back and bilateral feet pain Narrative: 44yof who presents for evaluation. increasing low back pain. pt has failed to benefit from > 6 weeks of PT and provider guided HEP, heat, ice, tylenol and nsaids. utilizing baclofen and meloxicam PRN, without side effects. today pain 1-2/10 increasing to 8/10 with standing, walking, sitting, lifting, bending. recently underwent lumbar MRI with results below. recently underwent bilateral L4-5 L5-S1 MBB #1 and #2 with >80% improvement in pain and functional ability while anestehtized, preop pain up to 8/10 post op pain 0/10. since last visit pt noting increased burning and numbness/tingling to bilateral feet. pending evaluation with podiatry for heel spurs. cc:: CC: Anastasiya Thomas NP [facility] Medical History Simple cyst of breast ?N60.09 - Solitary cyst of unspecified breast (ICD-10) Sebaceous cyst ?L72.3 - Sebaceous cyst (ICD-10) Low back pain ?M54.50 - Low back pain, unspecified (ICD-10) Hypothyroid ?E03.9 - Hypothyroidism, unspecified (ICD-10) Asthma ?J45.909 - Unspecified asthma, uncomplicated (ICD-10) Surgical History S/P hernia repair ?Z98.890 - Other specified postprocedural states (ICD-10) ?Z87.19 - Personal history of other diseases of the digestive system (ICD-10) History of mandibular surgery ?Z98.890 - Other specified postprocedural states (ICD-10) Meds Home Medications and Allergies Home Medications ?Medication ?Instructions ?Recorded ?Confirmed ?Type esomeprazole magnesium 40 mg 40 mg PO DAILY 06/23/24 03/02/25 History capsule,delayed release esteban control 06/23/24 History multivitamin-ferrous 1 tab PO DAILY 06/23/24 03/02/25 History fumarate-folic acid 18 mg-400 mcg tablet (Centrum Women) qf-dr-gtwooq 68 mcg DFE-caff 95 ea PO 06/23/24 History sj-dasa-odyji-tea oral effer pwdr pack (ATP Ignite) albuterol sulfate 90 mcg/actuation 2 puff inhalation PRN shortness of 09/01/24 History aerosol inhaler breath or wheezing baclofen 10 mg tablet 10 mg PO BID PRN muscle spasm #60 09/11/24 03/02/25 Rx tabs meloxicam 7.5 mg tablet 7.5 mg PO BID PRN pain #60 tabs 09/11/24 03/02/25 Rx diazepam 10 mg tablet (Valium) 10 mg PO Q8H PRN sedation 12/08/24 03/02/25 History hydrocodone 5 mg-acetaminophen 325 1 tab PO QID PRN pain #28 tabs 12/17/24 03/02/25 Rx mg tablet Allergies Allergy/AdvReac Type Severity Reaction Status Date / Time benzonatate AdvReac Mild Diarrhea Verified 01/26/25 06:54 indomethacin AdvReac Mild swelling Verified 01/26/25 06:54 Exam Constitutional Documenting provider has reviewed patient's vital signs: yes Common normals: no apparent distress, oriented x3, healthy appearing, alert and well nourished General appearance: cooperative HENMT Common normals: normocephalic, hearing grossly normal bilaterally and moist oral mucous membranes Head and scalp: normocephalic Eye Common normals: PERRL Pupil: PERRL Neck & C-Spine Common normals: full ROM General: normal visual inspection Chest Common normals: inspection of chest normal Respiratory Common normals: normal respiratory effort, no retractions and no use of accessory muscles Back & Pelvis Lumbar spine/lower back: ROM limited, pain with ROM, lumbar spinal tenderness, straight leg raise positive right and straight leg raise positive left Other: decreased sensation bilateral L5,S1 strength 4/5 in BLE positive bilateral facet loading Neuro Common normals: oriented x3 Sensorium/orientation: alert Psych Common normals: mental status grossly normal, thought process normal, cooperative, affect normal, speech normal and activity/motor behavior normal Speech: normal speech Thought process: normal thought process Results Additional Findings Additional findings: If on a controlled substance or opioids, I have checked an [place]AR[place] report on this patient and there are no aberrancies noted in the prescribing history.??If on a controlled substance or opioid a drug screen was completed and reviewed within the last year, and if there has not been a drug screen completed we ordered one today to monitor higher risk, state monitored pain medication use. As part of providing excellent, safe, comprehensive care, the following was completed at our patient's visit: 1. A medication reconciliation and review to ensure accurate knowledge of current/active medications, including asking our patients to inform us about any noip-xtx-shaqyrm medications or herbal remedies/nutritional supplements/alternative remedies. 2. A review to specifically ensure our patients have had annual screening for screening for depression, screening for tobacco use, and screening for unhealthy alcohol use. For concerning screenings had a discussion with the patient, provided patient education, and recommended follow-up with primary care provider when appropriate. If patient noted with a risk of falling, they received education on strength, gait, and balance training to prevent future risk of falling. Portions of this note may have been carried over from the previous visit and updated as appropriate. Please note this office utilizes paper charting in addition to the electronic medical record. A list of current medications, vitals, and PMH is available there as the clinical staff outside of myself do not have access to [facility] charting during the clinic day operations. As part of providing quality comprehensive care the current medications, vitals, and PMH were reviewed in the paper chart. Assessment and Plan Assessment and Plan (1) Lumbosacral radiculopathy: Assessment and Plan: The patient has had over 3 months of moderate to severe low back and bilateral foot pain with functional impairment and inadequate response to conservative care including NSAIDS (unless there are contraindication such as concurrent blood thinners), multiple oral or topical pain medications, and home exercise program/physical therapy.? Patient has completed >6 weeks of guided home exercise program and/or formal physical therapy program without relief of their symptoms.? The Oswestry Disability Index was completed, and the patient scored a 6%.? prior emg consistent with chronic lumbosacral radiculopathy (2) Lumbar stenosis with neurogenic claudication: (3) Lumbar spondylosis: Plan repeat bilateral S1 TFESI under fluoroscopy, prior injection provided >50% improvement in radicular pain greater than 3 months. can prescribe 10mg po valium 30-60mins prior to procedure for anxiolysis, pt to have a oil truck driver defer bilateral L4-5 L5-S1 facet RFA until radicular symptoms have improved continue current medications, tolerating well without side effects f/u 2 weeks after ALFREDO
== END 2025-03-04 07:42 | disposition home or self-care (01) ==
LOC: PM 07:41
PROVIDERS: PCP Family Medicine; Visit Provider Nurse Practitioner
DX: M54.16 Radiculopathy, lumbar region (principal); M48.062 Spinal stenosis, lumbar region with neurogenic claudication; M47.816 Spondylosis without myelopathy or radiculopathy, lumbar region
CPT/HCPCS: G0463

== ENCOUNTER 2025-03-16 11:41 | Day surgery (SDC) | payer OTHER, SELFPAY ==
[2025-03-16 11:51] VITALS: BP 130/78; PULSE 72; TEMP 36; O2SAT 97
[2025-03-16 12:13] VITALS: BP 144/65; PULSE 73; O2SAT 100
[2025-03-16 12:15] VITALS: BP 145/66; PULSE 73; O2SAT 100
[2025-03-16] MEDS: 0.9 % SODIUM CHLORIDE 10 ML SYRINGE - SALINE FLUSH INJ (12:17)
[2025-03-16] MEDS: LIDOCAINE HCL 2% 400 MG/20 ML MDV 3 ML INJ (12:18)
[2025-03-16] MEDS: IOHEXOL 240 MG/ML - 10 ML VIAL 24 MG INJ (12:18)
[2025-03-16] MEDS: BUPIVACAINE HCL 0.25% PF 25 MG/10 ML VIAL INJ (12:18)
[2025-03-16] MEDS: METHYLPREDNISOLONE ACETATE 80 MG/ML VIAL INJ (12:19)
--- NOTE | 2025-03-16 12:38 | W.PM.PROCNOT ---
Date of procedure: 03/16/25 Pre-op diagnosis: Pain due to lumbar stenosis with neurogenic claudication Post-op diagnosis: same as pre-op Procedure: Procedure: Bilateral S1-2 transforaminal epidural steroid injection Medications: Bupivacaine 0.25% 2cc, lidocaine 2% 1cc, depomedrol 80mg The patient was seen and examined in the preoperative holding area.? Informed consent was obtained and placed on the chart.? Patient was brought to the medical procedure unit and placed in the prone position where a timeout was completed verifying the correct patient, procedure site, position, and planned special equipment using sterile aseptic technique.? Under direct fluoroscopic visualization a 25-gauge Quincke tipped spinal needle was advanced at level left S1-2 to the designated neural foramen where contrast dye was injected to show adequate spread.? There was no evidence of vascular or adverse uptake.? Epidural spread was appreciated.? The above-mentioned injectate was then placed in a 1.5 mL aliquot preceded by negative aspiration.? The needle was removed. The same procedure, at the same level, was completed on the opposite side. ? Patient was taken to the postprocedural recovery area and monitored for an appropriate length of time before found suitable for discharge in the accompaniment of a responsible adult. Anesthesia: Local Surgeon: Christos Manrique Pathology: none sent Condition: stable Disposition: no change
== END 2025-03-16 12:22 | disposition home or self-care (01) ==
PROVIDERS: PCP Family Medicine; Visit Provider Anesthesiology
DX: M48.062 Spinal stenosis, lumbar region with neurogenic claudication (principal)
CPT/HCPCS: 64483; J0665; J1010; Q9966

== ENCOUNTER 2025-03-25 07:59 | Outpatient (OUT) | payer OTHER, SELFPAY ==
--- OUTSIDE RECORDS SUMMARY | 2024-05-07 11:28 | XMS_ITS ---
Author Organization The [facility] in [place] Address [address] [place] [address] Care Team Providers Care Pig Furnace Operator Name Role Phone Peter Lozano DO Primary Care Provider Arthur Wade [phone] REASON FOR VISIT Med order Medications Medication SIG (Take, Route, Fr equency, Duration) Notes Start Date End Date Status Meloxicam 15 MG 1 tablet Orally Once a day for 30 days 05/07/2024 Active Encounters Encounter Location Date Provider Diagnosis [facility] (PODIATRY) [address] [place] [address] [place] [address] 05/07/2024 Arthur Kent Plan Of Treatment Medication Medication Name Sig Start Date Stop Date Notes Meloxicam 15 MG 1 tablet Orally Once a day for 30 days Progress Notes * Alex OHARAaDOB: 2 (44 yo F)Acc No.[id number]:05/07/2024 Patient: Darling COLEMAN :1980 A ge:44 Y S ex:Female Address:[address] [place] [address], [address] * Refills Start Meloxicam Tablet, 15 MG, Orally, 30, 1 tablet, Once a day, 30 days, Refills=2 * true * Date: Generated for Juvenal tay/Dorota/eTransmitting on: 0 03/25/2025 08:02 AM EDT
--- OUTSIDE RECORDS SUMMARY | 2024-05-07 11:30 | XMS_ITS ---
Author Organization The [facility] in [place] Address [address] [place] [address] Care Team Providers Care Switchboard Operator Name Role Phone Peter Lozano DO Primary Care Provider Arthur Wade [phone] REASON FOR VISIT med order Medications Medication SIG (Take, Route, Fr equency, Duration) Notes Start Date End Date Status Meloxicam 15 MG 1 tablet Orally Once a day for 30 days 05/07/2024 Active Encounters Encounter Location Date Provider Diagnosis [facility] (PODIATRY) [address] [place] [address] [place] [address] 05/07/2024 Arthur Kent Plan Of Treatment Medication Medication Name Sig Start Date Stop Date Notes Meloxicam 15 MG 1 tablet Orally Once a day for 30 days Progress Notes * Alex OHARAaDOB: 2 (44 yo F)Acc No.[id number]:05/07/2024 Patient: Darling COLEMAN :1980 A ge:44 Y S ex:Female Address:[address] [place] [address], [address] * Refills Start Meloxicam Tablet, 15 MG, Orally, 30, 1 tablet, Once a day, 30 days, Refills=2 * true * Date: Generated for Juvenal tay/Dorota/eTransmitting on: 0 03/25/2025 08:01 AM EDT
--- OUTSIDE RECORDS SUMMARY | 2024-05-07 11:33 | XMS_ITS ---
Author Organization The [facility] in [place] Address [address] [place] [address] Care Team Providers Care Apple Checker Name Role Phone Peter Lozano DO Primary Care Provider Arthur Wade [phone] REASON FOR VISIT med order Medications Medication SIG (Take, Route, Fr equency, Duration) Notes Start Date End Date Status Meloxicam 15 MG 1 tablet Orally Once a day for 30 days 05/07/2024 Active Encounters Encounter Location Date Provider Diagnosis [facility] (PODIATRY) [address] [place] [address] [place] [address] 05/07/2024 Arthur Kent Plan Of Treatment Medication Medication Name Sig Start Date Stop Date Notes Meloxicam 15 MG 1 tablet Orally Once a day for 30 days Progress Notes * Alex OHARAaDOB: 2 (44 yo F)Acc No.[id number]:05/07/2024 Patient: Darling COLEMAN :1980 A ge:44 Y S ex:Female Address:[address] [place] [address], [address] * Refills Start Meloxicam Tablet, 15 MG, Orally, 30, 1 tablet, Once a day, 30 days, Refills=2 * true * Date: Generated for Juvenal tay/Dorota/eTransmitting on: 0 03/25/2025 08:02 AM EDT
--- OUTSIDE RECORDS SUMMARY | 2024-06-17 10:30 | XMS_ITS ---
Author Organization [facility] in [place] Address [address] [place] [address] Care Team Providers Care Air Conditioning Supervisor Name Role Phone Peter Lozano DO Primary Care Provider Arthur Wade [phone] Reason For Referral Reason Referral to [facility] PT Diagnosis 1 Plantar fascial fibr omatosis (M72.2) Referral Organization [facility] ([facility]) Referring Provider First Name Arthur Referring Provider Last Name Yoli Referring Provider Speciality Podiatry Referred Provider Specialty Physical The rapist Referral Priority Routine Reason Referral to linden Schmid Diagnosis 1 Plantar fascial fibr omatosis (M72.2) Referral Organization [facility] ([facility]) Referring Provider First Name Arthur Referring Provider Last Name Yoli Referring Provider Speciality Podiatry Referred Provider Specialty Pain Medicin e Referral Priority Routine REASON FOR VISIT MRI ([facility] 06.04.24) and EMG review Medications Medication [...] Problem Status W/U Status Risk Notes Problem [id number] Radiculopathy , lumbar region (M54.16) Active confirmed Vital Signs Temperature 97.3 degrees Fahrenheit 06/17/20 Heart Rate 87 /min 06/17/2024 Height 72 in 06/17/2024 Oximetry 94 % 06/17/2024 Encounters Encounter Location Date Provider Diagnosis [facility] ([facility]) [address] [place] [address] [place] [address] 06/17/2024 Arthur Kent Plantar fascial fibromatosis M72.2 [...] Referral Date Details 06/18/2024 06/18/2024, Referral to [facility] PT 06/18/2024 06/18/2024, Referral to pain management DR. Schmid Progress Notes * Yany OHARAB: 2 (44 yo F)Acc No.[id number]:06/17/2024 Follow Up Patient: Manuel PAUL Darling Provider: Agusto Kent DPM, MS :1980 A ge:44 Y S ex:Female Date:06/17/2024 Address:[address] [place], [place] [id number] Pcp:Peter Lozano, DO Check In:02:25 PM ESTCheck O ut:03:34 PM EST Subjective: * Chief Complaints: * M RI ([facility] .13.24) and EMG review * HPI: [...] DPM, MS Date: 1 08/17/2023 Generated for [facility] maggi/Dorota/Toñaransmitting on: 0 03/25/2025 08:01 AM EDT History and Physical Notes * [...] 06/18/2024 Arthur Kent , Referral t o [facility] PT 06/18/2024 Arthur Kent , Referral t o pain management DR. Schmid
--- OUTSIDE RECORDS SUMMARY | 2024-06-27 05:22 | XMS_ITS ---
Author Organization [facility] in [place] Address [address] [place] [address] Care Team Providers Care [place] Attorney Name Role Phone Peter Lozano DO Primary Care Provider Arthur Wade [phone] Encounters Encounter Location Date Provider Diagnosis [facility] (PODIATRY) [address] [place] [address] [place] [address] 06/27/2024 Arthur Kent Plan Of Treatment No Information Progress Notes * Yany OHARAB: 2 (44 yo F)Acc No.[id number]:06/27/2024 Patient: Darling COLEMAN :1980 A ge:44 Y S ex:Female Address:[address] [place] [address], [phone] * true * Date: Generated for Printi ng/Faxing/eTransmitting on: 0 03/25/2025 08:02 AM EDT
--- OUTSIDE RECORDS SUMMARY | 2024-07-24 10:48 | XMS_ITS | Continuity of Care Document ---
Author Organization [facility] Address [address] [place] [address] Phone Care Team Providers Care Critical Care Technician Name Role Phone Severo KETANAgusto Tamar CARLINan [...] 130 MM HG MED LIST DOCD IN [facility] RVW MEDS BY RX/DR IN [facility] Pt inelig neg scrn depres OFFICE/OUTPATIENT [...] Provider Providers Copied on Encounter [facility], [address] [place] [address], [id number] , [place] tel:[phone] [facility] No Information 5 Severo [facility] Telles. [address] [place] [address], [id number], [place]. tel:[phone] PREV VISIT, EST, AGE 40-64 [facility], [address], [place], [id number] , [place] tel:[phone] [facility] annual exam (chief complaint) Encounter for gynecological examination (general) (routine) without abnormal findingsBody mass index [BMI] 31.0-31.9, adultEncounter for screening mammogram for Ca of breastOCP follow up Rx 4 [facility] K[facility]. [address], [place], [id number], [place]. tel:[phone] PREV VISIT, EST, AGE 40-64 [facility], [address], [place], [id number] , [place] tel: [phone] [facility] annual exam (chief complaint) Encounter for gynecological examination (general) (routine) without abnormal findingsEncounte r for STD screening- STD High risk heterosexual behaviorOCP follow up RxBody mass index [BMI] 34.0-34.9, adult 3 [facility]. [address], [place], [id number], [place]. tel:[phone] OFFICE/OUTPA TIENT VISIT, EST [facility], [address], [place], [id number] , [place] tel: [phone] [facility] Ovarian cyst (chief complaint) Right ovarian cystFamily history of uterine cancerEncounter for screening mammogram for Ca of breastBody mass index [BMI] 36.0-36.9, adult 3 [facility]. [address], [place], [id number], [place]. tel:[phone] PREV VISIT, EST, AGE 40-64 [facility], [address], [place], [id number] , [place] tel:[phone] [facility] annual exam (chief complaint) Encounter for gynecological examination (general) (routine) without abnormal findingsBody mass index [BMI] 33.0-33.9, adultEncounter for STD screeningOther problem related to lifestyleOCP follow up RxEncounter for screening mammogram for Ca of breast 2 [facility]. [address], [place], [id number], [place]. tel:[phone] PREV VISIT, EST, AGE 18-39 [facility], [address], [place], [id number] , [place] tel: [phone] [facility] annual exam (chief complaint) Encounter for gynecological examination (general) (routine) without abnormal findingsBody mass index [BMI] 37.0-37.9, adultPelvic pain in femaleEncounter for screening mammogram for Ca of breastOCP follow up Rx 1 [facility]. [address], [place], [id number], [place]. tel:[phone] [facility], [address] [place] [address], [id number] , [place] tel: [phone] [facility] Abnormal Mammogram 0 [facility]. [address], [place], [id number], [place]. tel:[phone] PREV VISIT, EST, AGE 18-39 [facility], [address], [place], [id number] , [place] tel: [phone] [facility] annual exam (chief complaint) Encntr for risk lead exam (general) (routine) w/o abn findingsFibrocys tic disease of breastEncounter for STD screeningOther problem related to lifestyleBody mass index (BMI) 29.0-29.9, adultUrine test negative 0 [facility]. [address], [place], [id number], [place]. tel:[phone] [facility], [address] [place] [address], [id number] , [place] tel: [phone] [facility] Abnormal Mammogram 0 [facility]. [address], [place], [id number], [place]. tel:[phone] [facility], [address] [place] [address], [id number] , [place] tel: [phone] [facility] Abnormal Mammogram 9 [facility]. [address], [place], [id number], [place]. tel:[phone] OFFICE/OUTPA TIENT VISIT, EST [facility], [address], [place], [id number] , [place] tel: [phone] [facility] abnormal pap smear (chief complaint) Body mass index (BMI) 29.0-29.9, adultCyst of right breastFibrocysti c disease of breastAtypical squamous cells of undetermined significance on cytologic smear of cervix (ASC-US) 9 [facility]. [address], [place], [id number], [place]. tel:[phone] PREV VISIT, EST, AGE 18-39 [facility], [address], [place], [id number] , [place] tel: [phone] [facility] annual exam (chief complaint) Encntr for risk lead exam (general) (routine) w/o abn findingsOther problem related to lifestyleEncount er for STD screeningBody mass index (BMI) 28.0-28.9, adult 8 [facility]. [address], [place], [id number], [place]. tel:[phone] [facility], [address], [place], [id number] , [place] tel: [phone] [facility] Cyst of right breast 8 [facility]. [address], [place], [id number], [place]. tel:[phone] [facility], [address], [place], [id number] , [place] tel: [phone] [facility] Cyst of right breast 8 [facility]. [address], [place], [id number], [place]. tel:[phone] OFFICE/OUTPA TIENT VISIT, [facility], [address], [place], [id number] , [place] tel: [phone] [facility] abnormal pap smear (chief complaint) Body mass index (BMI) 28.0-28.9, adultCIN 2OCP follow up Rx 8 [facility]. [address], [place], [id number], [place]. tel:[phone] [facility], [address], [place], [id number] , [place] tel: [phone] [facility] Fibrocystic disease of breast 8 [facility]. [address], [place], [id number], [place]. tel:[phone] OFFICE/OUTPA TIENT VISIT, [facility], [address], [place], [id number] , [place] tel: [phone] [facility] Leep follow up (chief complaint) Unspecified lump in unspecified breastCIN 2 7 Ty Morris. [address], [place], [id number], [place]. tel:[phone] [facility], [address], [place], [id number] , [place] tel: [phone] [facility] Leep (chief complaint) PEG 2 7 Visci DO Mack. [address], [place], [id number], [place]. tel:[phone] OFFICE/OUTPA TIENT VISIT, [facility], [address], [place], [id number] , [place] tel: [phone] [facility] Colpo (chief complaint) Atypical squamous cells of undetermined significance on cytologic smear of cervix (ASC-US)Cervical high risk HPV DNA test positive 7 Visci DO Frederick. [address], [place], [id number], [place]. tel:[phone] OFFICE/OUTPA TIENT VISIT, EST [facility], [address], [place], [id number] , [place] tel: [phone] [facility] contraception (chief complaint) contraceptive management 7 [facility]. [address], [place], [id number], [place]. tel:[phone] OFFICE/OUTPA TIENT VISIT, EST [facility], [address], [place], [id number] , [place] tel: [phone] [facility] vaginal discharge/itch ing (chief complaint) Vulvovaginitis [facility]. [address], [place], [id number], [place]. tel:[phone] PREV VISIT, EST, AGE 18-39 [facility], [address], [place], [id number] , [place] tel: [phone] [facility] annual exam (chief complaint) - well woman with abnormal findingDysmenorr heaEncounter for STD screeningOther problem related to lifestylecontrac eptive managementEncntr for risk lead exam (general) (routine) w/o abn findingsUmbilica l hernia without obstruction and without gangrene [facility]. [address], [place], [id number], [place]. tel:[phone] PREV VISIT, EST, AGE 18-39 [facility], [address], [place], [id number] , [place] tel: [phone] [facility] Update (chief complaint)robin al exam (chief complaint)cont raception (chief complaint) Encounter for general risk lead exam without abnormal findingEncounter for STD screeningOther problem related to lifestyle 6 [facility]. [address] [place] [address], [id number], [place]. tel:[phone] PREV VISIT, EST, AGE 18-39 [facility], [address], [place], [id number] , [place] tel: [phone] [facility] annual visit (chief complaint) Gynecological ExaminationIrreg ular menstrual cycle 8-201 4 [facility]. [address], [place], [id number], [place]. tel:[phone] PREV VISIT, EST, AGE 18-39 [facility], [address], [place], [id number] , [place] tel: [phone] [facility] No Information 2201 2 [address] [facility] Erin. [address], [place], [id number]. tel:[phone] PREV VISIT, NEW, AGE 18-39 [facility], [address], [place], [id number] , [place] tel: [phone] [facility] No Information 0-201 0 Lamp Maria D. [address] [place] [address], [id number], [place]. tel:[phone] Family History Family Member Type Diagnosis Age [...] Record Payers Payer name Insurance type Covered alliance party ID Authoriza tion(s) [employer] CFC [id number] Medicaid Wrap - [facility] [id number] Medicaid Wrap - [facility] [id number] Social History Type Description Quantity Date Captured Comments Alcohol Use Details Unknown Caffeine Use Details Unknown Tobacco Use Status No Information Smoking Status No Information Sex Female Sexual Orientation Straight or heterosexual Gender Identity Female Chief Complaint And Reason For Visit No Information Reason For Referral Reason For Referral No Information Plan Of Treatment Date Type Action Status Goal Tdap. Due on due Goal Tdap Vaccine. Due on 2024 due Goal Depression screening. Due on due Goal Mammogram. Due on 2 due Goal Lipid panel. Due on 025 due Goal PRAPARE ASSESSMENT. Due on due Goal Unhealthy drug use screening . Due on due Goal RLP. Due on due Goal HPV. Due on due Goal Influenza vaccine. Due on due Goal Hepatitis C screening. Due o n due Goal Hep A. Due on du e Goal Lipid panel. Due on 024 due Goal Hepatitis C screening. Due o n due Goal Tdap. Due on due Goal Influenza vaccine. Due on due Goal Unhealthy drug use screening . Due on due Goal Mammogram. Due on 2 due Goal RLP. Due on due Goal Tdap Vaccine. Due on 2023 due Goal PRAPARE ASSESSMENT. Due on due Goal Depression screening. Due on due Goal HPV. Due on due Goal Influenza vaccine. Due on due Goal RLP. Due on due Goal Hep A. Due on du e Goal Tdap Vaccine. Due on 2022 due Goal HPV. Due on due Goal Mammogram. Due on 2 due Goal Hepatitis C screening. Due o n due Goal PRAPARE ASSESSMENT. Due on O due Goal Tdap. Due on due Goal Unhealthy drug use screening . Due on due Goal Lipid panel. Due on 023 due Goal Depression screening. Due on due Goal Tdap. Due on due Goal Depression screening. Due on due Goal Influenza vaccine. Due on Ap due Goal PRAPARE ASSESSMENT. Due on A due Goal Mammogram. Due on 0 due Goal RLP. Due on due Goal Lipid panel. Due on 023 due Goal Tdap Vaccine. Due on 2022 due Goal Dietary management education , guidance, and counseling completed Goal Influenza vaccine. Due on Oc due Goal Depression screening. Due on due Goal Tdap. Due on due Goal PRAPARE ASSESSMENT. Due on O due Goal Mammogram. Due on 5 due Goal RLP. Due on due Goal Lipid panel. Due on 022 due Goal Dietary management education , guidance, [...] OCPs and desires to continue. 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 . annual exam [...] does take Motrin PRN cramping. 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 abnormal pap smear [...] is willing to try nuvaring. 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 contraception Education provid [...] is regular, but noticed it was much molder feeder and less cramping with the anti inflamatory [...] fullness above her clavical evaluated. Physician in [place] has recommended a possible biopsy Functional Status [...] examination (general) (routine) without abnormal findings Dietary management e ducation, guidance, and counseling Related to Body mass index [BMI] 37.0-37.9, adult Giving encouragement to exercise Related to [...] patient desires Vasectomy Related to Encntr for risk lead exam (general) (routine) w/o abn findings Giving [...] next repeat pap. Related to Encntr for risk lead exam (general) (routine) w/o abn findings Cervical [...] for repeat pap. Related to PEG 2 Dietary management e ducation, guidance, and counseling Related to Body mass index (BMI) 28.0-28.9, adult Giving encouragement to exercise Related to [...] insurance, but states she gets assistance from [facility] Related to Umbilical hernia [...] all follow up appt with physician in [place] for abnormal neck gland, fullness and thyroid. Patient states understanding. Encouraged to start Motrin 800mg every 8 hours around the clock during a heavy menses. Patient to take medication with food. Patient states understanding Encouraged to keep menstrual calendar Related to Encounter for general risk lead exam without abnormal finding Assessments Type Assessment Date No Information Patient Care Teams Name Effective Dates (start - stop) Status Members No Information
--- OUTSIDE RECORDS SUMMARY | 2025-03-25 08:02 | XMS_ITS | Encounter Summary ---
Author Organization [facility] Address [address] [place] [address] Phone Care Team Providers Care Licensed Physical Therapy Assistant Name Role Phone Guillermo Lozano DO Primary Care Provider [phone] Encounter Details Date Type Department Care Team (Late st Contact Info) Description 02/22/2023 Patient Risk Score ACO Care Management [address] [place] [address] Social History Tobacco Use Types [...] on filedocumented in this encounter Care Teams Licensed Physical Therapy Assistant Relationship Specialty Start Date End Date Guillermo Lozano DO PCP - General 11/30/15 documented as of this encounter
--- OUTSIDE RECORDS SUMMARY | 2025-03-25 08:02 | XMS_ITS | Encounter Summary ---
Author Organization [facility] Address [address] [place] [address] Care Team Providers Care Marketing Director Name Role Phone Peter Lozano DO Primary Care Provider [phone] Encounter Details Date Type Department Care Team (Late st Contact Info) Description 10/01/2024 Orders Only [facility] [address] [facility] [address] [place] [address] Bonifacio Lara DO [address] [facility] [address] [place] [address] Social History Tobacco Use Types Packs/Day Years [...] on filedocumented in this encounter Care Teams Marketing Director Relationship Specialty Start Date End Date Peter Lozano DO PCP - General 01/25/23 documented as of this encounter
--- OUTSIDE RECORDS SUMMARY | 2025-03-25 08:02 | XMS_ITS | Encounter Summary ---
Author Organization [facility] Address [address] [place] [address] Care Team Providers Care Machine Setter Supervisor Name Role Phone Peter Lozano DO Primary Care Provider [phone] Encounter Details Date Type Department Care Team (Late st Contact Info) Description 12/31/2023 External Result Encounter [facility] External Department Unsolicited Bonifacio Lara DO [address] [place] [address] Social History Tobacco Use Types Packs/Day Years [...] Ayleen Zheng M.D.12/31/2023 12:14 PM Dictation Location: [place] [address] Tech: Nellie Solis Transcribed By: ADIA 12/31/23 1214 Dictated By: Ayleen Zheng MD 12/31/23 1206 Signed By: <Electronically signed by MD Ayleen Zheng in OV> 12/31/23 1214 Narrative 12/31/2023 12:16 PM EDT [facility] [place] [address] Ultrasound Report Signed Patient: Darling Ohara MR#: [id number] : 1980 Acct:[id number] Age/Sex: 43 / F ADM Date: 12/31/23 Loc: Room: Type: [facility] Attending Dr: Bonifacio Lara DO Ordering Provider: [...] limited Procedure Note Radiology, Radiologist, - 12/31/2023 [facility] Main [place] [address] [place] [address] Ultrasound Report Signed Patient: Darling Ohara LMR#: [id number] : 1980Acct:[id number] Age/Sex: 43 / FADM Date: 12/31/23 Loc: Room:Type: [facility] Attending Dr: Bonifacio Lara DO Ordering Provider: [...] Ayleen Zheng M.D.12/31/2023 12:14 PM Dictation Location: [place] [address] Tech: Transcribed By: [facility] 12/31/23 1214 Dictated By: Ayleen Zheng MD 12/31/23 1206 Signed By: <Electronically signed by MD Ayleen Zheng in OV> 12/31/23 1214 us Bonifacio Lara DO IMG US PROCEDURES Final R esult documented in this encounter Visit Diagnoses Not on filedocumented in this encounter Care Teams Machine Setter Supervisor Relationship Specialty Start Date End Date Peter Lozano DO PCP - General 01/25/23 documented as of this encounter
--- OUTSIDE RECORDS SUMMARY | 2025-03-25 08:02 | XMS_ITS | Clinical Summary ---
Author Organization [facility] Address [address] [place] [address] Care Team Providers Care Major General Name Role Phone Peter Lozano DO Primary Care Provider [phone] Allergies Active Allergy Reactions Criticality Noted Date [...] FOR 90 DAYS 09/11/2023 Active HYDROcodone-nury taminophen ([place]) 5-325 MG tablet TAKE 1 TABLET BY [...] on file Insurance [employer] Care Teams Major General Relationship Specialty Start Date End Date Peter Lozano DO PCP - General 01/25/23
--- OUTSIDE RECORDS SUMMARY | 2025-03-25 08:02 | XMS_ITS | Clinical Summary ---
Author Organization [facility] Address [address] [place] [address] Phone Care Team Providers Care Immigration Law Specialist Name Role Phone AcGuillermo silva Esteban HOOVER Primary Care Provider [phone] Social History Tobacco Use Types Packs/Day Years [...] age to complete this topic Care Teams Immigration Law Specialist Relationship Specialty Start Date End Date Guillermo Lozano DO PCP - General 11/30/15
--- OUTSIDE RECORDS SUMMARY | 2025-03-25 08:02 | XMS_ITS | Encounter Summary ---
Author Organization [facility] Address [address] [place] [address] Care Team Providers Care Splitter Hand Name Role Phone Peter Lozano DO Primary Care Provider [phone] Encounter Details Date Type Department Care Team (Late st Contact Info) Description 02/28/2024 Orders Only [facility] [address] [facility] [address] [place] [address] Peter Lozano DO [address] [place] [address] Social History Tobacco Use Types Packs/Day Years [...] on filedocumented in this encounter Care Teams Splitter Hand Relationship Specialty Start Date End Date Peter Lozano DO PCP - General 01/25/23 documented as of this encounter
--- OUTSIDE RECORDS SUMMARY | 2025-03-25 08:02 | XMS_ITS | Encounter Summary ---
Author Organization [facility] Address [address] [place] [address] Phone Care Team Providers Care Nursing Unit Clerk Name Role Phone Guillermo Lozano DO Primary Care Provider [phone] Encounter Details Date Type Department Care Team (Late st Contact Info) Description 03/25/2023 Patient Risk Score ACO Care Management [address] [place] [address] Social History Tobacco Use Types [...] on filedocumented in this encounter Care Teams Nursing Unit Clerk Relationship Specialty Start Date End Date Guillermo Lozano DO PCP - General 11/30/15 documented as of this encounter
--- OUTSIDE RECORDS SUMMARY | 2025-03-25 08:02 | XMS_ITS | Patient Health Record ---
Author Organization [facility] Address [address] [place] [address] Care Team Providers Care Fish And Wildlife Biologist Name Role Phone Peter Lozano DO Primary Care Provider Robert Wade [phone] Allergies No Known Allergies Results Component Value Reference Range Notes XR foot KG min 3V (Not yet reviewed by provider) Interpretation: Performing Lab: Notes/Report: Source Facility: [place] [address] XRay Report Signed Patient: Des Ohara MR#: [id number] : 1980 Acct:[id number] Age/Sex: 43 / F ADM Date: 03/25/24 Loc: EC Attending Dr: Robert Kent D.P.M. Ordering Physician: Robert Kent D.P.M. Date of Service: 03/25/24 Procedure(s): XR foot KG min 3V Accession Number(s): [id number] cc: Robert Kent D.P.M.; Physician,Non-Staff MBrittanie [facility] [place] [address] Patient Name: DES OHARA MRN: [id number] date: 1980 Sex: F Assigned Patient Location: Current Patient Location: Accession/Order Number: [id number] Exam Date: 03/25/2024 13:45 Report Date: 03/26/2024 [...] M.D. Signed By: 03/26/24840 DD/ 7 TD/TT: Sourcing Analyst: [place] [address] XRay Report Signed Patient: Teresa Ohara MR#: [id number] : 1980 Acct:[id number] Age/Sex: 43 / F ADM Date: 03/25/24 Loc: EC Attending Dr: Robert Kent D.P.M. Ordering Physician: Robret Kent D.P.M. Date of Service: 03/25/24 Procedure(s): XR anjelica t KG min 3V Accession Number(s): [id number] cc: Robert Kent D.P.M.; Physician,Non-Staff [place] [id number] Patient Name: DES OHARA MRN: [id number] date: 1980 Sex: F Assigned Patient Location: Current Patient Location: Accession/Order Numb er: [id number] Exam Date: 03/25/2024 13:45 Report Date: 03/26/2024 [...] M.D. Signed By: 03/26/24840 DD/ 7 TD/TT: Sourcing Analyst: Reason For Referral Reason evaluation and treat ment -- see attached order Diagnosis 1 Right foot pain (M79 .671) Referral Organization [facility]) Referring Provider First Name Robert Referring Provider Last Name [facility] Referring Provider Speciality Podiatry Referred Provider [facility] Referred Provider Specialty Physical Med icine and Rehabilitation Referral Priority Routine Reason BLE EMG Diagnosis 1 Sciatica, left side (M54.32) Referral Organization [facility] ([facility]OD[facility]) Referring Provider First Name Robert Referring Provider Last Name [facility] Referring Provider Speciality Podiatry Referred Provider [facility] Referred Provider Specialty Neurology Referral Priority Routine Reason Referral to [facility] PT Diagnosis 1 Plantar fascial fibr omatosis (M72.2) Referral Organization [facility] (PODI[facility]) Referring Provider First Name Robert Referring Provider Last Name [facility] Referred Provider Specialty Physical The rapist Referral Priority Routine Reason Referral to linden Schmid Diagnosis 1 Plantar fascial fibr omatosis (M72.2) Referral Organization [facility] (PODI[facility]) Referring Provider First Name Robert [...] Problem Status W/U Status Risk Notes Problem 01831192 Other specified acquired deformities of right lower leg (M21.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) Active confirmed Problem 368293800 Other specified acquired deformities of left lower leg (M21.862) Active confirmed Problem 733172036 Contracture, right ankle (M24.571) Active confirmed Problem 435506773 Contracture, left ankle (M24.572) Active confirmed Problem 734100973 Radiculopathy, lumbar region (M54.16) Active confirmed Problem 335616536909059 Sciatica, left side (M54.32) Active confirmed Problem 11347675415179114 Plantar fascia l fibromatosis (M72.2) Active confirmed Vital Signs Heart Rate 87 /min 06/17/2024 Temperature 97.3 degrees Fahrenheit 06/17/2024 Respiratory Rate 16 /min 05/07/2024 Oximetry 94 % 06/17/2024 Height 72 in 06/17/2024 Weight 260 lbs 05/07/2024 BMI 35.26 kg/m2 05/07/2024 Encounters Encounter Location Date Provider Diagnosis [facility] [address] [place] [address] [place] [address] 05/07/2024 Robert Kent [facility] [address] [place] [address] [place] [address] 05/07/2024 Robert Kent [facility] ([facility]) [address] [place] [address] [place] [address] 05/07/2024 Robert Kent [facility] [address] [place] [address] [place] [address] 06/27/2024 Robert Kent [facility] [address] [place] [address] 03/25/2024 Robert Kent Plantar fascial fibromatosis M72.2 ; Sciatica, left side M54.32 ; Other specified acquired deformities of right lower leg M21.861 ; Other specified acquired deformities of left lower leg M21.862 ; Corns and callosities L84 ; Right foot pain M79.671 and Left foot pain M79.672 [facility] [address] [place] [address] [place] [address] 05/07/2024 Robert Kent Plantar fascial fibromatosis M72.2 ; Contracture, left ankle M24.572 ; Sciatica, left side M54.32 ; Contracture, right ankle M24.571 and Left foot pain M79.672 [facility] ([facility]) [address] [place] [address] [place] [address] 06/17/2024 Robert Kent Plantar fascial fibromatosis M72.2 [...] she may consider replacing these with new hcyt-ejm-mlgichv inserts and I also discussed shoe modification. I emphasized the importance of Achilles tendon stretching and prescribed formal physical therapy. Physical therapy may also address her ongoing low back pain and sciatica. I did explain how low back pain can impact her foot pain.She can take ibuprofen but is allergic to another NSAID which she cannot remember. 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
--- OUTSIDE RECORDS SUMMARY | 2025-03-25 08:02 | XMS_ITS | Encounter Summary ---
Author Organization [facility] Address [address] [place] [address] Phone Care Team Providers Care Ceo And Co Founder Name Role Phone Guillermo Lozano DO Primary Care Provider [phone] Encounter Details Date Type Department Care Team (Late st Contact Info) Description 01/22/2023 Patient Risk Score ACO Care Management [address] [place] [address] Social History Tobacco Use Types [...] on filedocumented in this encounter Care Teams Ceo And Co Founder Relationship Specialty Start Date End Date Guillermo Lozano DO PCP - General 11/30/15 documented as of this encounter
--- OUTSIDE RECORDS SUMMARY | 2025-03-25 08:02 | XMS_ITS | Patient Health Record ---
Author Organization [facility] Address [address] [place] [address] [place] [address] Care Team Providers Care Lumber Cutter Name Role Phone Guillermo Lozano DO Primary Care Provider UnavailDylan Zaragoza Unavailable [phone] Reason For Referral No Information Problems Problem Type SNOMED Code ICD Code Onset Dates Problem Status W/U Status Risk Notes Problem Plantar wart (078.12) Active confirmed Problem Pain in limb (30762592) Pain in soft tissues of limb (729.5) Active confirmed Plan Of Treatment No Information Medical (General) History Medical History History ICD Code asthma fractured jaw Surgical History Surgery Date(Month/Year) jaw
--- OUTSIDE RECORDS SUMMARY | 2025-03-25 08:02 | XMS_ITS | Encounter Summary ---
Author Organization [facility] Address [address] [place] [address] Care Team Providers Care Refinery Operator Coking Name Role Phone Peter Lozano Primary Care Provider [phone] Source Comments In the event this information is protected by the Federal Confidentiality of Alcohol and Drug AbusePatient Records regulations: The Federal rules restrict any use of the information to criminally investigate or prosecute any alcohol or drug abuse patient.[facility] Encounter Details Date Type Department Care Team (Late st Contact Info) Description 03/29/2021 Patient Msg General Surgery [address] [place] [address] Provider, [facility] Appointment on 04/07 Social History [...] N ot on file 06/30/2020 Data from: [email or web address].medicine.[email or web address].[email or web address]/. Last address used for calculation Not on [...] on filedocumented in this encounter Care Teams Refinery Operator Coking Relationship Specialty Start Date End Date Peter Lozano DO [facility] [place] [address] PCP - General Family Medicine 11/22/15 documented as of this encounter
--- OUTSIDE RECORDS SUMMARY | 2025-03-25 08:02 | XMS_ITS | Clinical Summary ---
Author Organization [facility] Address [address] [place] [id number] Care Team Providers Care Hand Bobbin Cleaner Name Role Phone Peter Lozano Agusto HOOVER Primary Care Provider [phone] Allergies Active Allergy Reactions Criticality Noted Date [...] N ot on file 06/30/2020 Data from: [email or web address] Last address used for calculation Not on [...] 3-dose series) 04/17 Cervical Cancer Screening 2003 HPV Vaccine (1 - 3-dose SCDM series) 2009 Mammogram Screening 2022 Influenza Vaccine (#1) 2025 DTaP,Tdap,Td Vaccine (2 - Td or Tdap) 02/19/2028 Insurance [employer] Care Teams Hand Bobbin Cleaner Relationship Specialty Start Date End Date Peter Lozano DO [address] [place] [address] PCP - General Family Medicine 11/22/15
--- OUTSIDE RECORDS SUMMARY | 2025-03-25 08:09 | XMS_ITS | CCD ---
Author Organization [facility] CliniSyde Care Team Providers Care Evaluator Name Role Phone DR EPTER AHUMADA Primary Care Unavailable DR CHETAN RUDD Admitting Unavailable DR CHETAN RUDD Consulting Unavailable DR CHETAN RUDD Attending Unavailable Luz Marina Hernandez Consulting Unavailable Peter Ahumada DO Primary Care Provider [phone] Peter Ahumada Unavailable Blake, DO Peter Primary Care Provider Blake, DO Green Attending Provider [phone] Acs, DO Peter Primary Care Provider Kuns, DO Peter Attending Provider [phone] Kuns, DO Peter Primary Care Provider [phone] Kuns, DO Peter Attending Provider [phone] Rolando, [facility] [place] Emergency Provider Severo ([facility]), [place] DELIA Orellana Attending Provider Acs, DO Green Primary Care Provider Acs, DO Green Attending Provider [phone] Kuns, DO Peter Primary Care Provider Acs, DO Peter Attending Provider [phone] Kuns, DO Peter Primary Care Provider Kuns, DO Peter Attending Provider [phone] Kuns, DO Peter Primary Care Provider Blake, DO Peter Referring Provider Self, Referral Attending Provider Unavailable MD Igor Rudd Emergency Provider Acs, DO Peter Attending Provider Itzkoyahirtz, DO Alber Attending Provider [phone] DO Chas Meza Attending Provider Kuns, DO Peter Primary Care Provider Blake DO, Peter P Primary Care Provider [phone] Kuns, DO Peter Primary Care Provider [phone] Kuns, DO Peter Attending Provider JEAN CARLOS Martinez Attending Provider Peter Ahumada MD Primary Care Provider Blake HOOVER, Peter Primary Care Provider Peter Ahmuada DO Attending Provider Robert Martinez DPM Attending Provider Blake HOOVER, Peter Primary Care Provider [phone] Yoli DPRobert Ascencio Attending Provider Blake HOOVER, Peter Primary Care Provider [phone] Robert Martinez DPM Attending Provider [phone] Itzkowitz DO, Alber Attending Provider [phone] ITZKOWITZ, ALBER H Attending Unavailable ITZKOYAHIRTZ, ALBER H Attending Unavailable ITZKOYAHIRTZ, ALBER H Attending Unavailable ITZKOWITZ, ALBER H Attending Unavailable ITZKOWITZ, ALBER H Attending Unavailable ITZKOWITZ, ALBER H Attending Unavailable RAHUL CASTILLO Attending Unavailable ROBERT MARTINEZ Referring Unavailable Peter Ahumada DO Primary Care Provider [phone] Peter Ahumada DO Attending Provider Peter Ahumada Attending Unavailable Peter Ahumada Admitting Unavailable Peter Ahumada Primary Care Unavailable Itzkowitz, Alber Admitting Unavailable Itzdarshantz, Alber Attending Unavailable Robert Martinez Attending Unavailable Peter Ahumada Primary Care Unavailable Robert Martinez Admitting Unavailable Robert Martinez Attending Unavailable Acs, Peter Primary Care Unavailable Yoli, Robert D Admitting Unavailable Yoli, Robert D Attending Unavailable Kuns, Peter Primary Care Unavailable Highlministerio, Peter D Admitting Unavailable Kuns, Peter Primary Care Unavailable Kuns, Peter Attending Unavailable Kuns, Peter Admitting Unavailable Kuns, Peter Primary Care Unavailable Kuns, Peter Attending Unavailable Kuns, Peter Admitting Unavailable Elbert Mezain A Admitting Unavailable Elbert Mezain A Attending Unavailable Kuns, Peter Primary Care [...] Facility (13 sources) Indomethacin Drug Allergy 8 [facility] (14 sources) benzonatate Drug Allergy 4 [facility] (6 sources) benzonatate Drug Allergy 3 GI intolerance [facility] Work Phone: (1 source) benzonatate Drug Allergy 5 [facility] Repository (1 source) Indomethacin Drug Allergy [address] [place] [address] Repository Medications Current Medications Medication Drug Class(es) Dates Sig (Normalized) Sig (Original) [id number] actuat albuterol 0.09 mg/actuat metered dose [...] TAB PO Q6H as needed for pain 19 12March 26, 2018 12:00am March 30, 2018 12:00am [...] six hours as needed for pain Hydrocodone-Acetaminophen ([place]) 5-325 mg tablet Discontinued 2 TAB PO [...] on above: TAKE 1 CAPSULE BY [facility] EVERY DAY 30 MINUTES BEFORE MORNING MEAL [...] 12-17-2023 Episodic Other aftercare (1 source) 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; Translations: [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 01/27/2025 9:02 AM Dictation Location: [facility] Dictated By: Osmani Stovall DO 01/27/25 0859 Signed By: 01/27/25 0902 Normal [facility] Mammography reportOrdered By : Osmani Stovall on 01-27-2025 Diagnostic imaging study [facility] [address] [place] [address] Mammography Report Signed Patient: Darling Khanna MR#: [id number] : 1980 Acct:[id number] Age/Sex: 44 / F Adm Date: 5 Loc: [place] Room: Type: [facility] Attending Dr: Peter Ahumada DO Ordering Provider: Peter Ahumada DO Date of Service: 01/27/25 Procedure(s): MM screening mammo BI w/CAD Accession Number(s): ([id number]) MM/MM screening mammo BI w/CAD: Z12.39 - [...] Stovall M.D. 01/27/2025 9:02 AM Dictation Location: [facility] Dictated By: Osmani Stovall DO 01/27/25 0859 Signed By: 01/27/25 09 [facility] A1C with Estimated Average G neerajn 12-05-2024 Glucose [Mass/Vol] 117 mg/dL Normal [facility] Comment on above: Result Comment: PERF ORMED BY: [place] [address] PATHOLOGIST LEATHER GRAINER PADILLA LYMAN M.D. Performed By: #### A 1C WT eA, LIPID, CMP, T4F, TSH3, CBC #### [facility] [address] [place] [address] [place] Alanine aminotransferase [En zymatic activity/volume] in Serum or PlasmaOrdered By: Peter Ahumada on 12-05-2024 ALT [Catalytic activity/Vol] 6 U/L Low 7-52 [facility] Comment on above: Performed By: #### A 1C WT eA, LIPID, CMP, T4F, TSH3, CBC #### [facility] [address] [place] [address] [place] Albumin [Mass/volume] in Ser um or Plasma by Bromocresol green (BCG) dye binding methoOrdered By: Peter Ahumada on 12-05-2024 Albumin BCG dye [Mass/Vol] 3.7 g/dL 3.5-5.7 [facility] Alkaline phosphatase [Enzyma tic activity/volume] in Serum or PlasmaOrdered By: Peter Ahumada on 12-05-2024 ALP [Catalytic activity/Vol] 42 U/L Normal 34-104 [facility] Comment on above: Performed By: #### A 1C WT eA, LIPID, CMP, T4F, TSH3, CBC #### [facility] [address] Aspartate aminotransferase [ Enzymatic activity/volume] in Serum or PlasmaOrdered By: Peter Ahumada on 12-05-2024 AST [Catalytic activity/Vol] 12 U/L Low 13-39 [facility] Comment on above: Performed By: #### A 1C WT eA, LIPID, CMP, T4F, TSH3, CBC #### [facility] [address] Basophils [#/volume] in Bloo d by Automated countOrdered By: Peter Ahumada on 12-05-2024 Basophils (Bld) [#/Vol] 0.1 10*3/uL Normal 0.0-0.2 [facility] Comment on above: Result Comment: PERF ORMED BY: [address] [place] [address] PATHOLOGIST LEATHER GRAINER PADILLA LYMAN M.D. Performed By: #### A 1C WT eA, LIPID, CMP, T4F, TSH3, CBC #### [address] Basophils/100 leukocytes in Blood by Automated countOrdered By: Peter Ahumada on 12-05-2024 Basophils/100 WBC (Bld) 0.8 % Normal . [facility] Comment on above: Performed By: #### A 1C WT eA, LIPID, CMP, T4F, TSH3, CBC #### [facility] [address] Bilirubin.total [Mass/volume ] in Serum or PlasmaOrdered By: Peter Ahumada on 12-05-2024 Bilirubin [Mass/Vol] 0.3 mg/dL Normal 0.3-1.0 [facility] Comment on above: Performed By: #### A 1C WTH eA, LIPID, CMP, T4F, TSH3, CBC #### [facility] [address] Blood estimated average gluc ose determination by estimation from glycated hemoglobinOrdered By: Peter Ahumada on 12-05-2024 Average glucose Estimated from glycated hemoglobin (Bld) [Mass/Vol] 117 mg/dL [facility] Calcium [Mass/volume] in Ser um or PlasmaOrdered By: Peter Ahumada on 12-05-2024 Calcium [Mass/Vol] 8.5 mg/dL Low 8.6-10.3 [facility] Comment on above: Performed By: #### A 1C WT eA, LIPID, CMP, T4F, TSH3, CBC #### [facility] [address] [place] [address] [place] Carbon dioxide, total [Moles /volume] in Serum or PlasmaOrdered By: Peter Ahumada on 12-05-2024 CO2 [Moles/Vol] 29.8 mmol/L Normal 21.0-31.0 [facility] Comment on above: Performed By: #### A 1C WT eA, LIPID, CMP, T4F, TSH3, CBC #### [facility] [address] [place] [address] [place] Chloride [Moles/volume] in S renetta or PlasmaOrdered By: Peter Ahumada on 12-05-2024 Chloride [Moles/Vol] 105 mmol/L Normal 98-107 [facility] Comment on above: Performed By: #### A 1C WT eA, LIPID, CMP, T4F, TSH3, CBC #### [facility] [address] [place] [id number] [place] Cholesterol [Mass/volume] in Serum or PlasmaOrdered By: Peter hAumada on 12-05-2024 Cholesterol [Mass/Vol] 151 mg/dL Normal 140-200 [facility] Comment on above: Chol less than 200 m g/dl low riskChol 201-239 mg/dl borderline riskChol 240 mg/dl and greater high risk Result Comment: Chol less than 200 mg/dl low risk Chol 201-239 mg/dl borderline risk Chol 240 mg/dl and greater high risk Performed By: #### A 1C WTH eA, LIPID, CMP, T4F, TSH3, CBC #### [facility] [address] [place] [id number] [place] Cholesterol in HDL [Mass/vol ume] in Serum or PlasmaOrdered By: Peter Ahumada on 12-05-2024 Cholesterol in HDL [Mass/Vol] 50 mg/dL Normal 23-92 [facility] Comment on above: HDL CHOL ATP-III CLA SSIFICATION Cardiovascular RiskHDL > or equal to 60 mg/dL LOWHDL < 40 mg/dL HIGH Result Comment: HDL CHOL ATP-III CLASSIFICATION Cardiovascular Risk HDL > or equal to 60 mg/dL LOW HDL < 40 mg/dL HIGH Performed By: #### A 1C WTH eA, LIPID, CMP, T4F, TSH3, CBC #### [facility] [address] Cholesterol in LDL Calc [Mas s/Vol]Ordered By: Peter Ahumada on 12-05-2024 Cholesterol in LDL [Mass/Vol] 84 mg/dL 0-100 [facility] Comment on above: LDL ATP III CLASSIFI CATIONLDL less than 100 mg/dL OptimalLDL 100-129 mg/dL Near or above optimalLDL 130-159 mg/dL Borderline highLDL 160-189 mg/dL HighLDL greater than 189 mg/dL Very high Cholesterol in VLDL Calc [Ma ss/Vol]Ordered By: Peter Ahumada on 12-05-2024 Cholesterol in VLDL [Mass/Vol] 16 mg/dL [facility] Complete Blood Count Auto Di ffon 12-05-2024 Mean Corpuscular HGB Conc 33.5 g/dL Normal 32.0-35.0 [facility] Comment on above: Performed By: #### A 1C WT eA, LIPID, CMP, T4F, TSH3, CBC #### [facility] [address] NRBC% 0.0 /100{WBC} Normal 0-0.5 [facility] Comment on above: Performed By: #### A 1C WTH eA, LIPID, CMP, T4F, TSH3, CBC #### [facility] [address] Comprehensive Metabolic Pane prasanth 12-05-2024 Albumin [Mass/Vol] 3.7 g/dL Normal 3.5-5.7 [facility] Comment on above: Performed By: #### A 1C WTH eA, LIPID, CMP, T4F, TSH3, CBC #### [facility] [address] GFR/1.73 sq M.predicted MDRD (S/P/Bld) [Vol rate/Area] mL/min/{1.73_m2} Normal [facility] Comment on above: Performed By: #### A 1C WT eA, LIPID, CMP, T4F, TSH3, CBC #### [address] Creatinine [Mass/volume] in Serum or PlasmaOrdered By: Peter Ahumada on 12-05-2024 Creatinine [Mass/Vol] 0.50 mg/dL Low 0.60-1.20 [facility] Comment on above: Performed By: #### A 1C WT eA, LIPID, CMP, T4F, TSH3, CBC #### [address] Eosinophils [#/volume] in Bl ood by Automated countOrdered By: Peter Ahumada on 12-05-2024 Eosinophils (Bld) [#/Vol] 0.1 10*3/uL Normal 0.0-0.45 [facility] Comment on above: Performed By: #### A 1C WT eA, LIPID, CMP, T4F, TSH3, CBC #### [place] [address] [place] Eosinophils/100 leukocytes i n Blood by Automated countOrdered By: Peter Ahumada on 12-05-2024 Eosinophils/100 WBC (Bld) 1.7 % Normal . [facility] Comment on above: Performed By: #### A 1C WTH eA, LIPID, CMP, T4F, TSH3, CBC #### [place] [address] [place] Erythrocyte distribution wid th [Ratio] by Automated countOrdered By: Peter Ahumada on 12-05-2024 Erythrocyte distribution width (RBC) [Ratio] 12.7 % Normal 11.9-15.3 [facility] Comment on above: Performed By: #### A 1C WTH eA, LIPID, CMP, T4F, TSH3, CBC #### [facility] [address] Erythrocytes [#/volume] in B lood by Automated countOrdered By: Peter Ahumada on 12-05-2024 RBC (Bld) [#/Vol] 4.14 10*6/uL Normal 3.60-5.00 [facility] Comment on above: Performed By: #### A 1C WTH eA, LIPID, CMP, T4F, TSH3, CBC #### [facility] [address] Glucose [Mass/volume] in Ser um or PlasmaOrdered By: Peter Ahumada on 12-05-2024 Glucose [Mass/Vol] 98 mg/dL Normal 70-100 [facility] Comment on above: ADA recommended refe rence rangeRandom Glucose Reference Range is dependent on time and content of last meal. Glucose of more than 200 mg/dL in a nonstressed, ambulatory subject supports the diagnosis of Diabetes Mellitus. Result Comment: [place] om Glucose Reference Range is dependent on time and content of last meal. Glucose of more than 200 mg/dL in a nonstressed, ambulatory subject supports the diagnosis of Diabetes Mellitus. ADA recommended reference range Performed By: #### A 1C WTH eA, LIPID, CMP, T4F, TSH3, CBC #### [facility] [address] [place] [address] [place] Hematocrit [Volume Fraction] of Blood by Automated countOrdered By: Peter Ahumada on 12-05-2024 Hematocrit (Bld) [Volume fraction] 36.1 % Normal 34.0-46.4 [facility] Comment on above: Performed By: #### A 1C WTH eA, LIPID, CMP, T4F, TSH3, CBC #### [facility] [address] [place] [address] [place] Hemoglobin A1c/Hemoglobin.to vince in BloodOrdered By: Peter Ahumada on 12-05-2024 HbA1c (Bld) [Mass fraction] 5.7 % High 4.3-5.6 [facility] Comment on above: Increased risk for d iabetes: 5.7 - 6.4diabetes: >6.4glycemic control for adults with diabetes: <7.0 Result Comment: Incr eased risk for diabetes: 5.7 - 6.4 diabetes: >6.4 glycemic control for adults with diabetes: <7.0 Performed By: #### A 1C WTH eA, LIPID, CMP, T4F, TSH3, CBC #### [facility] [address] Hemoglobin [Mass/volume] in BloodOrdered By: Peter Ahumada on 12-05-2024 Hemoglobin (Bld) [Mass/Vol] 12.1 g/dL Normal 11.8-15.4 [facility] Comment on above: Performed By: #### A 1C WTH eA, LIPID, CMP, T4F, TSH3, CBC #### [facility] [address] Leukocytes [#/volume] correc bryan for nucleated erythrocytes in Blood by Automated counOrdered By: Peter Ahumada on 12-05-2024 WBC corrected for nucl RBC Auto (Bld) [#/Vol] 7.1 10*3/uL 3.8-11.6 [facility] Leukocytes [#/volume] in Blo od by Automated countOrdered By: Peter Ahumada on 12-05-2024 WBC (Bld) [#/Vol] 7.1 10*3/uL Normal 3.8-11.6 [facility] Comment on above: Performed By: #### A 1C WTH eA, LIPID, CMP, T4F, TSH3, CBC #### [facility] [address] Lipid Panelon 12-05-2024 LDL Cholesterol,Calculated 84 mg/dL Normal 0-100 [facility] Comment on above: Result Comment: LDL ATP III CLASSIFICATION LDL less than 100 mg/dL Optimal LDL 100-129 mg/dL Near or above optimal LDL 130-159 mg/dL Borderline high LDL 160-189 mg/dL High LDL greater than 189 mg/dL Very high Performed By: #### A 1C WTH eA, LIPID, CMP, T4F, TSH3, CBC #### [facility] [address] Triglyceride w/Reflex 83 mg/dL Normal 0-149 [facility] Comment on above: Result Comment: TRIG ATP III CLASSIFICATION TRIG less than 150 mg/dL Normal TRIG 150-199 mg/dL Borderline high TRIG 200-500 mg/dL High TRIG greater than 500 mg/dL Very high Standard traceable to the Center for Disease Conrtrol and Prevention (CDC) test method. Performed By: #### A 1C [facility] eA, LIPID, CMP, T4F, TSH3, CBC #### [address] VLDL CHOLESTEROL 16 mg/dL Normal [facility] Comment on above: Performed By: #### A 1C [facility] eA, LIPID, CMP, T4F, TSH3, CBC #### [address] Lymphocytes [#/volume] in Bl ood by Automated countOrdered By: Peter Ahumada on 12-05-2024 Lymphocytes (Bld) [#/Vol] 1.7 10*3/uL Normal 1.00-4.8 [facility] Comment on above: Performed By: #### A 1C [facility] eA, LIPID, CMP, T4F, TSH3, CBC #### [address] Lymphocytes/100 leukocytes i n Blood by Automated countOrdered By: Peter Ahumada on 12-05-2024 Lymphocytes/100 WBC (Bld) 23.9 % Normal . [facility] Comment on above: Performed By: #### A 1C [facility] eA, LIPID, CMP, T4F, TSH3, CBC #### [address] MCH [Entitic mass] by Automa bryan countOrdered By: Peter Ahumada on 12-05-2024 MCH (RBC) [Entitic mass] 29.1 pg Normal 24.7-34.3 [facility] Comment on above: Performed By: #### A 1C [facility] eA, LIPID, CMP, T4F, TSH3, CBC #### [address] MCHC Auto (RBC) [Mass/Vol]Or dered By: Peter Ahumada on 12-05-2024 MCHC (RBC) [Mass/Vol] 33.5 g/dL 32.0-35.0 [facility] MCV [Entitic volume] by Auto mated countOrdered By: Peter Ahumada on 12-05-2024 MCV (RBC) [Entitic vol] 87.0 fL Normal 80-100 [facility] Comment on above: Performed By: #### A 1C WTH eA, LIPID, CMP, T4F, TSH3, CBC #### [facility] [address] [place] [address] [place] Monocytes [#/volume] in Bloo d by Automated countOrdered By: Peter Ahumada on 12-05-2024 Monocytes (Bld) [#/Vol] 0.5 10*3/uL Normal 0.0-0.8 [facility] Comment on above: Performed By: #### A 1C WTH eA, LIPID, CMP, T4F, TSH3, CBC #### [facility] [address] [place] [address] [place] Monocytes/100 leukocytes in Blood by Automated countOrdered By: Peter Ahumada on 12-05-2024 Monocytes/100 WBC (Bld) 7.2 % Normal . [facility] Comment on above: Performed By: #### A 1C WTH eA, LIPID, CMP, T4F, TSH3, CBC #### [facility] [address] [place] [address] [place] Neutrophils [#/volume] in Bl ood by Automated countOrdered By: Peter Ahumada on 12-05-2024 Neutrophils (Bld) [#/Vol] 4.7 10*3/uL Normal 1.8-7.7 [facility] Comment on above: Performed By: #### A 1C WTH eA, LIPID, CMP, T4F, TSH3, CBC #### [facility] [address] [place] [address] [place] Neutrophils/100 leukocytes i n Blood by Automated countOrdered By: Peter Ahumada on 12-05-2024 Neutrophils/100 WBC (Bld) 66.4 % Normal . [facility] Comment on above: Performed By: #### A 1C WTH eA, LIPID, CMP, T4F, TSH3, CBC #### [facility] [address] No Panel InformationOrdered By: Peter Ahumada on 12-05-2024 Estimated GFR (CKD-EPI) > 60.0 mL/Min [facility] Creatinine Clearance (Chem N/A [facility] Nucleated erythrocytes [Pres ence] in Blood by Automated countOrdered By: Peter Ahumada on 12-05-2024 Nucleated RBC Auto Ql (Bld) 0.0 /100{WBC} 0-0.5 [facility] Platelet mean volume [Entiti c volume] in Blood by Automated countOrdered By: Peter Ahumada on 12-05-2024 Platelet mean volume (Bld) [Entitic vol] 7.7 fL Normal 6.3-10.7 [facility] Comment on above: Performed By: #### A 1C [facility] eA, LIPID, CMP, T4F, TSH3, CBC #### [facility] [address] Platelets [#/volume] in Bloo d by Automated countOrdered By: Peter Ahumada on 12-05-2024 Platelets (Bld) [#/Vol] 296 10*3/uL Normal 150-450 [facility] Comment on above: Performed By: #### A 1C [facility] eA, LIPID, CMP, T4F, TSH3, CBC #### [facility] [address] [place] [address] [place] Potassium [Moles/volume] in Serum or PlasmaOrdered By: Peter Ahumada on 12-05-2024 Potassium [Moles/Vol] 4.4 mmol/L Normal 3.5-5.1 [facility] Comment on above: Performed By: #### A 1C [facility] eA, LIPID, CMP, T4F, TSH3, CBC #### [address] Protein [Mass/volume] in Ser um or PlasmaOrdered By: Peter Ahumada on 12-05-2024 Protein [Mass/Vol] 6.0 g/dL Low 6.4-8.9 [facility] Comment on above: Performed By: #### A 1C [facility] eA, LIPID, CMP, T4F, TSH3, CBC #### [facility] [address] Serum globulin measurement b y calculation (mass/volume)Ordered By: Peter Ahumada on 12-05-2024 Globulin (S) [Mass/Vol] 2.3 g/dL Normal [facility] Comment on above: Performed By: #### A 1C [facility] eA, LIPID, CMP, T4F, TSH3, CBC #### [facility] [address] Serum or plasma albumin/glob ulin mass ratioOrdered By: Peter Ahumada on 12-05-2024 Albumin/Globulin [Mass ratio] 1.6 {ratio} Normal [facility] Comment on above: Performed By: #### A 1C [facility] eA, LIPID, CMP, T4F, TSH3, CBC #### [facility] [address] [place] [address] Serum or plasma anion gap de terminationOrdered By: Peter Ahumada on 12-05-2024 Anion gap [Moles/Vol] 8.6 mmol/L Normal 6.0-15.0 [facility] Comment on above: Performed By: #### A 1C [facility] eA, LIPID, CMP, T4F, TSH3, CBC #### [address] Serum or plasma total choles terol/high density lipoprotein (HDL) cholesterol mass ratOrdered By: Peter Ahumada on 12-05-2024 Cholesterol.total/Chol esterol in HDL [Mass ratio] 3.0 {ratio} Normal <5.0 [facility] Comment on above: Performed By: #### A 1C WT eA, LIPID, CMP, T4F, TSH3, CBC #### [facility] [address] [place] [address] Sodium [Moles/volume] in Ser um or PlasmaOrdered By: Peter Ahumada on 12-05-2024 Sodium [Moles/Vol] 139 mmol/L Normal 136-145 [facility] Comment on above: Performed By: #### A 1C WT eA, LIPID, CMP, T4F, TSH3, CBC #### [facility] [address] [place] [address] Thyrotropin [Units/volume] i n Serum or PlasmaOrdered By: Peter Ahumada on 12-05-2024 TSH Qn 0.30 m[IU]/L Low 0.45-5.33 [facility] Comment on above: Result Comment: PERF ORMED BY: [place] [address] PATHOLOGIST LEATHER GRAINER PADILLA LYMAN M.D. Performed By: #### A 1C WT eA, LIPID, CMP, T4F, TSH3, CBC #### [address] Thyroxine (T4) free [Mass/vo lume] in Serum or PlasmaOrdered By: Peter Ahumada on 12-05-2024 Free T4 [Mass/Vol] 1.01 ng/dL Normal 0.61-1.12 [facility] Comment on above: Performed By: #### A 1C WT eA, LIPID, CMP, T4F, TSH3, CBC #### [address] Triglyceride [Mass/volume] i n Serum or PlasmaOrdered By: Peter Ahumada on 12-05-2024 Triglyceride [Mass/Vol] 83 mg/dL 0-149 [facility] Comment on above: TRIG ATP III CLASSIF ICATIONTRIG less than 150 mg/dL NormalTRIG 150-199 mg/dL Borderline highTRIG 200-500 mg/dL High TRIG greater than 500 mg/dL Very highStandard traceable to the Center for Disease Conrtrol and Prevention (CDC) test method. Urea nitrogen [Mass/volume] in Serum or PlasmaOrdered By: Peter Ahumada on 12-05-2024 Urea nitrogen [Mass/Vol] 16 mg/dL Normal 7-25 [facility] Comment on above: Performed By: #### A 1C WT eA, LIPID, CMP, T4F, TSH3, CBC #### [place] [address] [facility] Pathology study report docum entOrdered By: Adolfo Madrid on 09-30-2024 Pathology study [facility] Other Phone: Prasanth 09-29-2024 L ---- Specimen: [id number] Received: 09/29/24 Status: EDELBaldo Hidalgo Num: [id number] Spec Type: Surgical Subm Dr: Alber Haines DO Tissues: A Skin Cyst (RT CHEST CYSTIC WALL) Procedures: Luma RAMIREZ/Fabiana L3 Age/ Patient Sex Location Account Attending Physician Darling Khanna/Teresa KLINE [id number] Alber Haines DO SPEC NUM: [id number] RECD: 09/29/24-1218 STATUS: JORGE PACHECO NUM: [id number] ALISTAIR: 09/29/24- SUBM DR: Alber Haines DO ENTERED: 09/29/24-1221 [facility] DR: Alexis [facility] SPEC TYPE: Surgical DEPT: S ORDERED: [...] submitted in a single cassette. (1, ns, [id number]) NOEL Specimen: [id number] Received: 09/29/24 Status: JORGE Pacheco Num: [id number] Spec Type: Surgical Subm Dr: Alber Haines DO Tissues: A Skin Cyst (RT CHEST CYSTIC WALL) Procedures: ASHLEY, Gross/Micro L3 Patient: MaydaDarling [id number] (Continued) Specimen: [id number] Received: 09/29/24 (Continued) Signed (signature on file) Adolfo Madrid MD 09/30/24 1501 Specimen: [id number] Received: 09/29/24 Status: JORGE Hidalgo Num: [id number] Spec Type: Surgical Subm Dr: Alber Haines DO Tissues: A Skin Cyst (RT CHEST CYSTIC WALL) Procedures: Luma RAMIREZ/Fabiana L3 Patient: Darling Khanna [id number] (Continued) Specimen: [id number] Received: 09/29/24 (Continued) Microscopic Description Microscopic examinations are performed supporting the above interpretation CPT Codes 04461 Specimen: [id number] Received: 09/29/24 Status: JORGE Hidalgo Num: [id number] Spec Type: Surgical Subm Dr: Alber Haines DO Tissues: A Skin Cyst (RT CHEST CYSTIC WALL) Procedures: Luma RAMIREZ/Fabiana L3 Patient: Darling Khanna [id number] (Continued) Signed (signature on file) Adolfo Madrid MD 09/30/24 1501 Normal [facility] MR ankle LT wo conon 024 MR ankle LT wo con [facility] [place] [address] MRI Report Signed Patient: Darling Khanna MR#: [id number] 1872 : 1980 Acct:[id number] Age/Sex: 44 / F ADM Date: 06/04/24 Loc: Room: Type: [facility] Attending Dr: Robert Martinez DPM, [place] Copies [...] Osmani Stovall M.D.06/04/2024 10:29 PM Dictation Location: [place] [address] Transcribed By: [facility] 06/04/242228 Dictated By: Osmani Stovall DO 06/04/242217 Signed By: 06/04/242228 Normal [facility] Magnetic resonance imaging r eportOrdered By: Osmani Stovall on 06-04-2024 Study report [facility] Main [place] [address] [place] [address] MRI Report Signed Patient: Darling Khanna MR#: [id number] : 1980 Acct:[id number] Age/Sex: 44 / F ADM Date: 4 Loc: MR Room: Type: [facility] Attending Dr: Robert Martinez DPM, MS Copies [...] Osmani Stovall M.D.06/04/2024 10:29 PM Dictation Location: [place] [address] Transcribed By: [facility] 06/04/242228 Dictated By: Osmani Stovall DO 06/04/242217 Signed By: 06/04/242228 [facility] X-ray reportOrdered By: Vikas Stovall on 06-04-2024 Study report [facility] Main [place] [id number] XRay Report Signed Patient: Darling Khanna MR#: [id number] : 1980 Acct:[id number] Age/Sex: 44 / F ADM Date: 4 Loc: MR Room: Type: [facility] Attending Dr: Robert Martinez DPM, MS Copies [...] Osmani Stovall DO 06/04/242350 Signed By: 06/04/242350 [facility] XR pre/post mri xrayon 06-04 XR pre/post mri xray [facility] [place] [address] XRay Report Signed Patient: Darling Khanna MR#: [id number] 1872 : 1980 Acct:[id number] Age/Sex: 44 / F ADM Date: 06/04/24 Loc: Room: Type: [facility] Attending Dr: Robert Martinez DPM, MS Copies [...] DO 06/04/242350 Signed By: 06/04/242350 Normal [facility] EMG 2 Extremitieson 05-22-20 24 S1 radiculopathy, le ft, mild [facility] NVC 11-12 Nerveson 4 S1 radiculopathy, le ft, mild [facility] upper GI w air*on 024 FL upper GI w air* [facility] Main [place] [id number] Fluoroscopy Report Signed Patient: Darling Khanna MR#: [id number] 1872 : 1980 Acct:[id number] Age/Sex: 43 / F ADM Date: 03/12/24 Loc: UL Room: Type: REG CLI Attending Dr: Peter Ahumada DO Copies [...] Osmani Stovall M.D.03/12/2024 2:09 PM Dictation Location: [place] [address] Transcribed By: [facility] 03/12/24 1409 Dictated By: Osmani Stovall DO 03/12/24 1040 Signed By: 03/12/24 1409 Normal [facility] US gall bladderon 03-12-2024 US gall bladder [facility] Main [address] [address] Ultrasound Report Signed Patient: Darling Khanna MR#: [id number] 1872 : 1980 Acct:[id number] Age/Sex: 43 / F ADM Date: 03/12/24 Loc: Room: Type: REG CLI Attending Dr: Peter Ahumada DO Ordering [...] Osmani Stovall M.D.03/12/2024 10:39 AM Dictation Location: [place] [address] Tech: Nellie Solis Transcribed By: ADIA 03/12/24 1039 Dictated By: Osmani Stovall DO 03/12/24 1036 Signed By: 03/12/24 1039 Normal [facility] A1C with Estimated Average G luon 03-05-2024 Glucose [Mass/Vol] 128 mg/dL Normal [facility] Comment on above: Result Comment: PERF ORMED BY: [facility] [address] [place] [address] PATHOLOGIST LEATHER GRAINER ALVIN VIDES M.D. Performed By: #### T 4F, CBC, TSH3, A1C WTH eA, LIPID, CMP ####[facility] [id number] [place] [address] [facility] Alanine aminotransferase [En zymatic activity/volume] in Serum or PlasmaOrdered By: Peter Ahumada on 03-05-2024 ALT [Catalytic activity/Vol] 10 U/L Normal 7-52 [facility] Comment on above: Performed By: #### T 4F, CBC, TSH3, A1C WTH eA, LIPID, CMP ####[facility] Albumin [Mass/volume] in Ser um or Plasma by Bromocresol green (BCG) dye binding methoOrdered By: Peter Ahumada on 03-05-2024 Albumin BCG dye [Mass/Vol] 4.0 g/dL 3.5-5.7 [facility] Alkaline phosphatase [Enzyma tic activity/volume] in Serum or PlasmaOrdered By: Peter Ahumada on 03-05-2024 ALP [Catalytic activity/Vol] 46 U/L Normal 34-104 [facility] Comment on above: Performed By: #### T 4F, CBC, TSH3, A1C WTH eA, LIPID, CMP ####[facility] Aspartate aminotransferase [ Enzymatic activity/volume] in Serum or PlasmaOrdered By: Peter Ahumada on 03-05-2024 AST [Catalytic activity/Vol] 20 U/L Normal 13-39 [facility] Comment on above: Performed By: #### T 4F, CBC, TSH3, A1C WTH eA, LIPID, CMP ####[place] [address] [address] Automated basophil %Ordered By: Peter Ahumada on 03-05-2024 Basophils/100 WBC (Bld) 0.7 % Normal . [facility] Comment on above: Performed By: #### T 4F, CBC, TSH3, A1C WTH eA, LIPID, CMP #### [facility] [address] Automated basophil countOrde red By: Peter Ahumada on 03-05-2024 Basophils (Bld) [#/Vol] 0.0 10*3/uL Normal 0.0-0.2 [facility] Comment on above: Result Comment: PERF ORMED BY: [place] [address] PATHOLOGIST LEATHER GRAINER ALVIN VIDES M.D. Performed By: #### T 4F, CBC, TSH3, A1C WTH eA, LIPID, CMP #### [facility] [address] Automated blood monocyte cou ntOrdered By: Peter Ahumada on 03-05-2024 Monocytes (Bld) [#/Vol] 0.5 10*3/uL Normal 0.0-0.8 [facility] Comment on above: Performed By: #### T 4F, CBC, TSH3, A1C WTH eA, LIPID, CMP #### [facility] [address] Automated eosinophil %Ordere d By: Peter Ahumada on 03-05-2024 Eosinophils/100 WBC (Bld) 2.2 % Normal . [facility] Comment on above: Performed By: #### T 4F, CBC, TSH3, A1C WTH eA, LIPID, CMP #### [address] Automated eosinophil countOr dered By: Peter Ahumada on 03-05-2024 Eosinophils (Bld) [#/Vol] 0.1 10*3/uL Normal 0.0-0.45 [facility] Comment on above: Performed By: #### T 4F, CBC, TSH3, A1C WTH eA, LIPID, CMP #### [facility] [address] [place] [address] Automated monocyte %Ordered By: Peter Ahumada on 03-05-2024 Monocytes/100 WBC (Bld) 7.5 % Normal . [facility] Comment on above: Performed By: #### T 4F, CBC, TSH3, A1C WTH eA, LIPID, CMP #### [facility] [address] Automated neutrophil %Ordere d By: Peter Ahumada on 03-05-2024 Neutrophils/100 WBC (Bld) 53.3 % Normal . [facility] Comment on above: Performed By: #### T 4F, CBC, TSH3, A1C WTH eA, LIPID, CMP #### [facility] [address] [place] [address] Bilirubin.total [Mass/volume ] in Serum or PlasmaOrdered By: Peter Ahumada on 03-05-2024 Bilirubin [Mass/Vol] 0.4 mg/dL Normal 0.3-1.0 [facility] Comment on above: Performed By: #### T 4F, CBC, TSH3, A1C WTH eA, LIPID, CMP ####[facility] [place] [address] [place] Calcium [Mass/volume] in Ser um or PlasmaOrdered By: Peter Ahumada on 03-05-2024 Calcium [Mass/Vol] 8.9 mg/dL Normal 8.6-10.3 [facility] Comment on above: Performed By: #### T 4F, CBC, TSH3, A1C WT eA, LIPID, CMP ####[place] [address] [place] [address] [facility] Carbon dioxide, total [Moles /volume] in Serum or PlasmaOrdered By: Peter Ahumada on 03-05-2024 CO2 [Moles/Vol] 28.7 mmol/L Normal 21.0-31.0 [facility] Comment on above: Performed By: #### T 4F, CBC, TSH3, A1C WTH eA, LIPID, CMP ####[place] [address] [place] [address] [place] Chloride [Moles/volume] in S renetta or PlasmaOrdered By: Peter Ahumada on 03-05-2024 Chloride [Moles/Vol] 103 mmol/L Normal 98-107 [facility] Comment on above: Performed By: #### T 4F, CBC, TSH3, A1C WTH eA, LIPID, CMP ####[place] [address] [place] [address] [place] Cholesterol [Mass/volume] in Serum or PlasmaOrdered By: Peter Ahumada on 03-05-2024 Cholesterol [Mass/Vol] 166 mg/dL Normal 140-200 [facility] Comment on above: Chol less than 200 m g/dl low riskChol 201-239 mg/dl borderline riskChol 240 mg/dl and greater high risk Result Comment: Chol less than 200 mg/dl low risk Chol 201-239 mg/dl borderline risk Chol 240 mg/dl and greater high risk Performed By: #### T 4F, CBC, TSH3, A1C WTH eA, LIPID, CMP ####[facility] Cholesterol in LDL Calc [Mas s/Vol]Ordered By: Peter Ahumada on 03-05-2024 Cholesterol in LDL [Mass/Vol] 76 mg/dL 0-100 [facility] Comment on above: LDL ATP III CLASSIFI CATIONLDL less than 100 mg/dL OptimalLDL 100-129 mg/dL Near or above optimalLDL 130-159 mg/dL Borderline highLDL 160-189 mg/dL HighLDL greater than 189 mg/dL Very high Cholesterol in VLDL Calc [Ma ss/Vol]Ordered By: Peter Ahumada on 03-05-2024 Cholesterol in VLDL [Mass/Vol] 40 mg/dL [facility] Complete Blood Count Auto Di ffon 03-05-2024 Mean Corpuscular HGB Conc 33.6 g/dL Normal 32.0-35.0 [facility] Comment on above: Performed By: #### T 4F, CBC, TSH3, A1C WTH eA, LIPID, CMP #### [facility] [address] NRBC% 0.1 /100{WBC} Normal 0-0.5 [facility] Comment on above: Performed By: #### T 4F, CBC, TSH3, A1C WTH eA, LIPID, CMP #### [facility] [address] Comprehensive Metabolic Pane prasanth 03-05-2024 Albumin [Mass/Vol] 4.0 g/dL Normal 3.5-5.7 [facility] Comment on above: Performed By: #### T 4F, CBC, TSH3, A1C WTH eA, LIPID, CMP ####[facility] GFR/1.73 sq M.predicted MDRD (S/P/Bld) [Vol rate/Area] mL/min/{1.73_m2} Normal [facility] Comment on above: Performed By: #### T 4F, CBC, TSH3, A1C WTH eA, LIPID, CMP ####[facility] [id number] Creatinine [Mass/volume] in Serum or PlasmaOrdered By: Peter Ahumada on 03-05-2024 Creatinine [Mass/Vol] 0.63 mg/dL Normal 0.60-1.20 [facility] Comment on above: Performed By: #### T 4F, CBC, TSH3, A1C WTH eA, LIPID, CMP ####[facility] Erythrocyte distribution wid th [Ratio] by Automated countOrdered By: Peter Ahumada on 03-05-2024 Erythrocyte distribution width (RBC) [Ratio] 13.4 % Normal 11.9-15.3 [facility] Comment on above: Performed By: #### T 4F, CBC, TSH3, A1C WTH eA, LIPID, CMP #### [facility] [address] Erythrocytes [#/volume] in B lood by Automated countOrdered By: Peter Ahumada on 03-05-2024 RBC (Bld) [#/Vol] 4.44 10*6/uL Normal 3.60-5.00 [facility] Comment on above: Performed By: #### T 4F, CBC, TSH3, A1C WTH eA, LIPID, CMP #### [facility] [address] Glucose [Mass/volume] in Ser um or PlasmaOrdered By: Peter Ahumada on 03-05-2024 Glucose [Mass/Vol] 96 mg/dL Normal 70-100 [facility] Comment on above: ADA recommended refe rence rangeRandom Glucose Reference Range is dependent on time and content of last meal. Glucose of more than 200 mg/dL in a nonstressed, ambulatory subject supports the diagnosis of Diabetes Mellitus. Result Comment: [place] om Glucose Reference Range is dependent on time and content of last meal. Glucose of more than 200 mg/dL in a nonstressed, ambulatory subject supports the diagnosis of Diabetes Mellitus. ADA recommended reference range Performed By: #### T 4F, CBC, TSH3, A1C WTH eA, LIPID, CMP ####[facility] [place] [address] Glucose mean value [Mass/vol ume] in Blood Estimated from glycated hemoglobinOrdered By: Peter Ahumada on 03-05-2024 Average glucose Estimated from glycated hemoglobin (Bld) [Mass/Vol] 128 mg/dL [facility] Hematocrit [Volume Fraction] of Blood by Automated countOrdered By: Peter Ahumada on 03-05-2024 Hematocrit (Bld) [Volume fraction] 37.2 % Normal 34.0-46.4 [facility] Comment on above: Performed By: #### T 4F, CBC, TSH3, A1C WTH eA, LIPID, CMP #### [facility] [address] Hemoglobin A1c percentageOrd ered By: Peter Ahumada on 03-05-2024 HbA1c (Bld) [Mass fraction] 6.1 % High 4.3-5.6 [facility] Comment on above: Increased risk for d iabetes: 5.7 - 6.4diabetes: >6.4glycemic control for adults with diabetes: <7.0 Result Comment: Incr eased risk for diabetes: 5.7 - 6.4 diabetes: >6.4 glycemic control for adults with diabetes: <7.0 Performed By: #### T 4F, CBC, TSH3, A1C WTH eA, LIPID, CMP ####[facility] [id number] Hemoglobin [Mass/volume] in BloodOrdered By: ePter Ahumada on 03-05-2024 Hemoglobin (Bld) [Mass/Vol] 12.5 g/dL Normal 11.8-15.4 [facility] Comment on above: Performed By: #### T 4F, CBC, TSH3, A1C WTH eA, LIPID, CMP #### [facility] [address] Leukocytes [#/volume] correc bryan for nucleated erythrocytes in Blood by Automated counOrdered By: Peter Ahumada on 03-05-2024 WBC corrected for nucl RBC Auto (Bld) [#/Vol] 6.2 10*3/uL 3.8-11.6 [facility] Leukocytes [#/volume] in Blo od by Automated countOrdered By: Peter Ahumada on 03-05-2024 WBC (Bld) [#/Vol] 6.2 10*3/uL Normal 3.8-11.6 [facility] Comment on above: Performed By: #### T 4F, CBC, TSH3, A1C WTH eA, LIPID, CMP #### [facility] [address] Lipid Panelon 03-05-2024 LDL Cholesterol,Calculated 76 mg/dL Normal 0-100 [facility] Comment on above: Result Comment: LDL ATP III CLASSIFICATION LDL less than 100 mg/dL Optimal LDL 100-129 mg/dL Near or above optimal LDL 130-159 mg/dL Borderline high LDL 160-189 mg/dL High LDL greater than 189 mg/dL Very high Performed By: #### T 4F, CBC, TSH3, A1C WTH eA, LIPID, CMP ####[facility] Triglyceride w/Reflex 202 mg/dL High 0-149 [facility] Comment on above: Result Comment: TRIG ATP III CLASSIFICATION TRIG less than 150 mg/dL Normal TRIG 150-199 mg/dL Borderline high TRIG 200-500 mg/dL High TRIG greater than 500 mg/dL Very high Standard traceable to the Center for Disease Conrtrol and Prevention (CDC) test method. Performed By: #### T 4F, CBC, TSH3, A1C WTH eA, LIPID, CMP ####[facility] VLDL CHOLESTEROL 40 mg/dL Normal [facility] Comment on above: Performed By: #### T 4F, CBC, TSH3, A1C WTH eA, LIPID, CMP ####[facility] Lymphocytes [#/volume] in Bl ood by Automated countOrdered By: Peter Ahumada on 03-05-2024 Lymphocytes (Bld) [#/Vol] 2.2 10*3/uL Normal 1.00-4.8 [facility] Comment on above: Performed By: #### T 4F, CBC, TSH3, A1C WTH eA, LIPID, CMP #### [facility] [address] Lymphocytes/100 leukocytes i n Blood by Automated countOrdered By: Peter Ahumada on 03-05-2024 Lymphocytes/100 WBC (Bld) 36.3 % Normal . [facility] Comment on above: Performed By: #### T 4F, CBC, TSH3, A1C WTH eA, LIPID, CMP #### [facility] [address] MCH [Entitic mass] by Automa bryan countOrdered By: Peter Ahumada on 03-05-2024 MCH (RBC) [Entitic mass] 28.2 pg Normal 24.7-34.3 [facility] Comment on above: Performed By: #### T 4F, CBC, TSH3, A1C WTH eA, LIPID, CMP #### [address] MCHC Auto (RBC) [Mass/Vol]Or dered By: Peter Ahumada on 03-05-2024 MCHC (RBC) [Mass/Vol] 33.6 g/dL 32.0-35.0 [facility] MCV [Entitic volume] by Auto mated countOrdered By: Peter Ahumada on 03-05-2024 MCV (RBC) [Entitic vol] 83.8 fL Normal 80-100 [facility] Comment on above: Performed By: #### T 4F, CBC, TSH3, A1C WTH eA, LIPID, CMP #### [address] Neutrophils [#/volume] in Bl ood by Automated countOrdered By: Peter Ahumada on 03-05-2024 Neutrophils (Bld) [#/Vol] 3.3 10*3/uL Normal 1.8-7.7 [facility] Comment on above: Performed By: #### T 4F, CBC, TSH3, A1C WTH eA, LIPID, CMP #### [address] No Panel InformationOrdered By: Peter Ahumada on 03-05-2024 Estimated GFR (CKD-EPI) > 60.0 mL/Min [facility] Creatinine Clearance (Chem N/A [facility] Nucleated erythrocytes [Pres ence] in Blood by Automated countOrdered By: Peter Ahumada on 03-05-2024 Nucleated RBC Auto Ql (Bld) 0.1 /100{WBC} 0-0.5 [facility] Platelet mean volume [Entiti c volume] in Blood by Automated countOrdered By: Peter Ahumada on 03-05-2024 Platelet mean volume (Bld) [Entitic vol] 8.7 fL Normal 6.3-10.7 [facility] Comment on above: Performed By: #### T 4F, CBC, TSH3, A1C WTH eA, LIPID, CMP #### [facility] [address] [place] [address] [place] Platelets [#/volume] in Bloo d by Automated countOrdered By: Peter Ahumada on 03-05-2024 Platelets (Bld) [#/Vol] 333 10*3/uL Normal 150-450 [facility] Comment on above: Performed By: #### T 4F, CBC, TSH3, A1C WTH eA, LIPID, CMP #### [facility] [address] [place] [address] [place] Potassium [Moles/volume] in Serum or PlasmaOrdered By: Peter Ahumada on 03-05-2024 Potassium [Moles/Vol] 3.8 mmol/L Normal 3.5-5.1 [facility] Comment on above: Performed By: #### T 4F, CBC, TSH3, A1C WTH eA, LIPID, CMP ####[facility] [id number] [place] [address] [place] Protein [Mass/volume] in Ser um or PlasmaOrdered By: Peter Ahumada on 03-05-2024 Protein [Mass/Vol] 6.7 g/dL Normal 6.4-8.9 [facility] Comment on above: Performed By: #### T 4F, CBC, TSH3, A1C WTH eA, LIPID, CMP ####[facility] [id number] [place] [id number] [place] Serum globulin measurement b y calculation (mass/volume)Ordered By: Peter Ahumada on 03-05-2024 Globulin (S) [Mass/Vol] 2.7 g/dL [facility] Comment on above: Performed By: #### T 4F, CBC, TSH3, A1C WTH eA, LIPID, CMP ####[facility] [id number] Serum or plasma albumin/glob ulin mass ratioOrdered By: Peter Ahumada on 03-05-2024 Albumin/Globulin [Mass ratio] 1.5 {ratio} [facility] Comment on above: Performed By: #### T 4F, CBC, TSH3, A1C WTH eA, LIPID, CMP ####[facility] [id number] Serum or plasma anion gap de terminationOrdered By: Peter Ahumada on 03-05-2024 Anion gap [Moles/Vol] 11.1 mmol/L Normal 6.0-15.0 [facility] Comment on above: Performed By: #### T 4F, CBC, TSH3, A1C WTH eA, LIPID, CMP ####[facility] [id number] Serum or plasma high density lipoprotein (HDL) cholesterol measurementOrdered By: Peter Ahumada on 03-05-2024 Cholesterol in HDL [Mass/Vol] 50 mg/dL Normal 23-92 [facility] Comment on above: HDL CHOL ATP-III CLA SSIFICATION Cardiovascular RiskHDL > or equal to 60 mg/dL LOWHDL < 40 mg/dL HIGH Result Comment: HDL CHOL ATP-III CLASSIFICATION Cardiovascular Risk HDL > or equal to 60 mg/dL LOW HDL < 40 mg/dL HIGH Performed By: #### T 4F, CBC, TSH3, A1C WTH eA, LIPID, CMP ####[facility] [id number] Serum or plasma total choles terol/high density lipoprotein (HDL) cholesterol mass ratOrdered By: Peter Ahumada on 03-05-2024 Cholesterol.total/Chol esterol in HDL [Mass ratio] 3.3 {ratio} Normal <5.0 [facility] Comment on above: Performed By: #### T 4F, CBC, TSH3, A1C WTH eA, LIPID, CMP ####[place] [address] [place] [id number] [facility] Sodium [Moles/volume] in Ser um or PlasmaOrdered By: Peter Ahumada on 03-05-2024 Sodium [Moles/Vol] 139 mmol/L Normal 136-145 [facility] Comment on above: Performed By: #### T 4F, CBC, TSH3, A1C WT eA, LIPID, CMP ####[place] [address] [place] [id number] [facility] Thyrotropin [Units/volume] i n Serum or PlasmaOrdered By: Peter Ahumada on 03-05-2024 TSH Qn 0.29 m[IU]/L Low 0.45-5.33 [facility] Comment on above: Result Comment: PERF ORMED BY: [facility] [address] [place] [address] PATHOLOGIST LEATHER GRAINER ALVIN VIDES M.D. Performed By: #### T 4F, CBC, TSH3, A1C WTH eA, LIPID, CMP ####[place] [address] [place] [id number] [facility] Thyroxine (T4) free [Mass/vo lume] in Serum or PlasmaOrdered By: Peter Ahumada on 03-05-2024 Free T4 [Mass/Vol] 0.81 ng/dL Normal 0.61-1.12 [facility] Comment on above: Performed By: #### T 4F, CBC, TSH3, A1C WT eA, LIPID, CMP ####[place] [id number] [facility] Triglyceride [Mass/volume] i n Serum or PlasmaOrdered By: Peter Ahumada on 03-05-2024 Triglyceride [Mass/Vol] 202 mg/dL High 0-149 [facility] Comment on above: TRIG ATP III CLASSIF ICATIONTRIG less than 150 mg/dL NormalTRIG 150-199 mg/dL Borderline highTRIG 200-500 mg/dL High TRIG greater than 500 mg/dL Very highStandard traceable to the Center for Disease Conrtrol and Prevention (CDC) test method. Urea nitrogen [Mass/volume] in Serum or PlasmaOrdered By: Peter Ahumada on 03-05-2024 Urea nitrogen [Mass/Vol] 11 mg/dL Normal - [facility] Comment on above: Performed By: #### T 4F, CBC, TSH3, A1C WT eA, LIPID, CMP ####[facility] [id number] [place] [address] [facility] XR elbow RT 2Von 02-13-2024 XR elbow RT 2V [facility] [address] [place] [address] XRay Report Signed Patient: Darling Khanna MR#: [id number] : 1980 Acct:[id number] Age/Sex: 43 / F ADM Date: 02/13/24 Loc: [facility] [place] Room: Type: [facility] Attending Dr: Chas Meza DO Copies to: [...] Osmani Stovall M.D.02/13/2024 4:07 PM Dictation Location: [place] [address] Transcribed By: [facility] 02/13/24 1600 Dictated By: Osmani Stovall DO 02/13/24 1607 Signed By: 02/13/24 1607 Normal [facility] HCG ( test) IAshashi d Ql (U)Ordered By: Rahul Rogers on 01-29-2024 HCG ( test) Ql (U) Negative [facility] Thyrotropin [Units/volume] i n Serum or PlasmaOrdered By: Peter Ahumada on 08-22-2023 TSH Qn 0.15 m[IU]/L 0.45-5.33 [facility] Thyroxine (T4) free [Mass/vo lume] in Serum or PlasmaOrdered By: Peter Ahumada on 08-22-2023 Free T4 [Mass/Vol] 0.97 ng/dL 0.61-1.12 [facility] Alanine aminotransferase [En zymatic activity/volume] in Serum or PlasmaOrdered By: Peter Ahumada on 05-25-2023 ALT [Catalytic activity/Vol] 7 U/L 7-52 [facility] Albumin [Mass/volume] in Ser um or Plasma by Bromocresol green (BCG) dye binding methoOrdered By: Peter Ahumada on 05-25-2023 Albumin BCG dye [Mass/Vol] 3.8 g/dL 3.5-5.7 [facility] Alkaline phosphatase [Enzyma tic activity/volume] in Serum or PlasmaOrdered By: Peter Ahumada on 05-25-2023 ALP [Catalytic activity/Vol] 54 U/L 34-104 [facility] Aspartate aminotransferase [ Enzymatic activity/volume] in Serum or PlasmaOrdered By: Peter Ahumada on 05-25-2023 AST [Catalytic activity/Vol] 17 U/L 13-39 [facility] Basophils Auto (Bld) [#/Vol] Ordered By: Peter Ahumada on 05-25-2023 Basophils (Bld) [#/Vol] 0.1 10*3/uL 0.0-0.2 [facility] Basophils/100 WBC Auto (Bld) Ordered By: Peter Ahumada on 05-25-2023 Basophils/100 WBC (Bld) 1.1 % . [facility] Bilirubin.total [Mass/volume ] in Serum or PlasmaOrdered By: Peter Ahumada on 05-25-2023 Bilirubin [Mass/Vol] 0.3 mg/dL 0.3-1.0 [facility] Calcium [Mass/volume] in Ser um or PlasmaOrdered By: Peter Ahumada on 05-25-2023 Calcium [Mass/Vol] 8.8 mg/dL 8.6-10.3 [facility] Carbon dioxide, total [Moles /volume] in Serum or PlasmaOrdered By: Peter Ahumada on 05-25-2023 CO2 [Moles/Vol] 29.9 mmol/L 21.0-31.0 [facility] Chloride [Moles/volume] in S renetta or PlasmaOrdered By: Peter Ahumada on 05-25-2023 Chloride [Moles/Vol] 107 mmol/L 98-107 [facility] Cholesterol [Mass/volume] in Serum or PlasmaOrdered By: Peter Ahumada on 05-25-2023 Cholesterol [Mass/Vol] 181 mg/dL 140-200 [facility] Comment on above: Chol less than 200 m g/dl low riskChol 201-239 mg/dl borderline riskChol 240 mg/dl and greater high risk Cholesterol in LDL Calc [Mas s/Vol]Ordered By: Peter Ahumada on 05-25-2023 Cholesterol in LDL [Mass/Vol] 115 mg/dL 0-100 [facility] Comment on above: LDL ATP III CLASSIFI CATIONLDL less than 100 mg/dL OptimalLDL 100-129 mg/dL Near or above optimalLDL 130-159 mg/dL Borderline highLDL 160-189 mg/dL HighLDL greater than 189 mg/dL Very high Cholesterol in VLDL Calc [Ma ss/Vol]Ordered By: Peter Ahumada on 05-25-2023 Cholesterol in VLDL [Mass/Vol] 22 mg/dL [facility] Creatinine [Mass/volume] in Serum or PlasmaOrdered By: Peter Ahumada on 05-25-2023 Creatinine [Mass/Vol] 0.59 mg/dL 0.60-1.20 [facility] Eosinophils Auto (Bld) [#/Vo l]Ordered By: Peter Ahumada on 05-25-2023 Eosinophils (Bld) [#/Vol] 0.1 10*3/uL 0.0-0.45 [facility] Eosinophils/100 WBC Auto (Bl d)Ordered By: Peter Ahumada on 05-25-2023 Eosinophils/100 WBC (Bld) 1.9 % . [facility] Erythrocyte distribution wid th Auto (RBC) [Ratio]Ordered By: Peter Ahumada on 05-25-2023 Erythrocyte distribution width (RBC) [Ratio] 13.7 % 11.9-15.3 [facility] Globulin Calc (S) [Mass/Vol] Ordered By: Peter Ahumada on 05-25-2023 Globulin (S) [Mass/Vol] 2.7 g/dL [facility] Glucose [Mass/volume] in Ser um or PlasmaOrdered By: Peter Ahumada on 05-25-2023 Glucose [Mass/Vol] 87 mg/dL 70-100 [facility] Comment on above: ADA recommended refe [...] from glycated hemoglobin (Bld) [Mass/Vol] 126 mg/dL [facility] Hematocrit Auto (Bld) [Volum e fraction]Ordered By: Peter Ahumada on 05-25-2023 Hematocrit (Bld) [Volume fraction] 36.2 % 34.0-46.4 [facility] Hemoglobin A1c percentageOrd ered By: Peter Ahumada on 05-25-2023 HbA1c (Bld) [Mass fraction] 6.0 % 4.3-5.6 [facility] Comment on above: Increased risk for d iabetes: 5.7 - 6.4diabetes: >6.4glycemic control for adults with diabetes: <7.0 Hemoglobin [Mass/volume] in BloodOrdered By: Peter Ahumada on 05-25-2023 Hemoglobin (Bld) [Mass/Vol] 11.8 g/dL 11.8-15.4 [facility] Leukocytes [#/volume] correc bryan for nucleated erythrocytes in Blood by Automated counOrdered By: Peter Ahumada on 05-25-2023 WBC corrected for nucl RBC Auto (Bld) [#/Vol] 6.1 10*3/uL 3.8-11.6 [facility] Lymphocytes Auto (Bld) [#/Vo l]Ordered By: Peter Ahumada on 05-25-2023 Lymphocytes (Bld) [#/Vol] 2.0 10*3/uL 1.00-4.8 [facility] Lymphocytes/100 WBC Auto (Bl d)Ordered By: Peter Ahumada on 05-25-2023 Lymphocytes/100 WBC (Bld) 32.1 % . [facility] MCH Auto (RBC) [Entitic mass ]Ordered By: Peter Ahumada on 05-25-2023 MCH (RBC) [Entitic mass] 27.3 pg 24.7-34.3 [facility] MCHC Auto (RBC) [Mass/Vol]Or dered By: Peter Ahumada on 05-25-2023 MCHC (RBC) [Mass/Vol] 32.7 g/dL 32.0-35.0 [facility] MCV Auto (RBC) [Entitic vol] Ordered By: Peter Ahumada on 05-25-2023 MCV (RBC) [Entitic vol] 83.5 fL 80-100 [facility] Monocytes Auto (Bld) [#/Vol] Ordered By: Peter Ahumada on 05-25-2023 Monocytes (Bld) [#/Vol] 0.3 10*3/uL 0.0-0.8 [facility] Monocytes/100 WBC Auto (Bld) Ordered By: Peter Ahumada on 05-25-2023 Monocytes/100 WBC (Bld) 5.2 % . [facility] Neutrophils Auto (Bld) [#/Vo l]Ordered By: Peter Ahumada on 05-25-2023 Neutrophils (Bld) [#/Vol] 3.6 10*3/uL 1.8-7.7 [facility] Neutrophils/100 WBC Auto (Bl d)Ordered By: Peter Ahumada on 05-25-2023 Neutrophils/100 WBC (Bld) 59.7 % . [facility] No Panel InformationOrdered By: Peter Ahumada on 05-25-2023 Estimated GFR (CKD-EPI) > 60.0 mL/Min [facility] Creatinine Clearance (Chem N/A [facility] Nucleated erythrocytes [Pres ence] in Blood by Automated countOrdered By: Peter Ahumada on 05-25-2023 Nucleated RBC Auto Ql (Bld) 0.1 /100{WBC} 0-0.5 [facility] Platelet mean volume Auto (B ld) [Entitic vol]Ordered By: Peter Ahumada on 05-25-2023 Platelet mean volume (Bld) [Entitic vol] 8.5 fL 6.3-10.7 [facility] Platelets Auto (Bld) [#/Vol] Ordered By: Peter Ahumada on 05-25-2023 Platelets (Bld) [#/Vol] 364 10*3/uL 150-450 [facility] Potassium [Moles/volume] in Serum or PlasmaOrdered By: Peter Ahumada on 05-25-2023 Potassium [Moles/Vol] 4.0 mmol/L 3.5-5.1 [facility] Protein [Mass/volume] in Ser um or PlasmaOrdered By: Peter Ahumada on 05-25-2023 Protein [Mass/Vol] 6.5 g/dL 6.4-8.9 [facility] RBC Auto (Bld) [#/Vol]Ordere d By: Peter Ahumada on 05-25-2023 RBC (Bld) [#/Vol] 4.34 10*6/uL 3.60-5.00 [facility] Serum or plasma albumin/glob ulin mass ratioOrdered By: Peter Ahumada on 05-25-2023 Albumin/Globulin [Mass ratio] 1.4 {ratio} [facility] Serum or plasma anion gap de terminationOrdered By: Peter Ahumada on 05-25-2023 Anion gap [Moles/Vol] 10.1 mmol/L 6.0-15.0 [facility] Serum or plasma high density lipoprotein (HDL) cholesterol measurementOrdered By: Peter Ahumada on 05-25-2023 Cholesterol in HDL [Mass/Vol] 44 mg/dL 23-92 [facility] Comment on above: HDL CHOL ATP-III CLA SSIFICATION Cardiovascular RiskHDL > or equal to 60 mg/dL LOWHDL < 40 mg/dL HIGH Serum or plasma total choles terol/high density lipoprotein (HDL) cholesterol mass ratOrdered By: Peter Ahumada on 05-25-2023 Cholesterol.total/Chol esterol in HDL [Mass ratio] 4.1 {ratio} <5.0 [facility] Sodium [Moles/volume] in Ser um or PlasmaOrdered By: Peter Ahumada on 05-25-2023 Sodium [Moles/Vol] 143 mmol/L 136-145 [facility] Thyrotropin [Units/volume] i n Serum or PlasmaOrdered By: Peter Ahumada on 05-25-2023 TSH Qn 0.73 m[IU]/L 0.45-5.33 [facility] Thyroxine (T4) free [Mass/vo lume] in Serum or PlasmaOrdered By: Peter Ahumada on 05-25-2023 Free T4 [Mass/Vol] 0.79 ng/dL 0.61-1.12 [facility] Triglyceride [Mass/volume] i n Serum or PlasmaOrdered By: Peter Ahumada on 05-25-2023 Triglyceride [Mass/Vol] 112 mg/dL 0-149 [facility] Comment on above: TRIG ATP III CLASSIF ICATIONTRIG less than 150 mg/dL NormalTRIG 150-199 mg/dL Borderline highTRIG 200-500 mg/dL High TRIG greater than 500 mg/dL Very highStandard traceable to the Center for Disease Conrtrol and Prevention (CDC) test method. Urea nitrogen [Mass/volume] in Serum or PlasmaOrdered By: Peter Ahumada on 05-25-2023 Urea nitrogen [Mass/Vol] 10 mg/dL 7-25 [facility] WBC Auto (Bld) [#/Vol]Ordere d By: Peter Ahumada on 05-25-2023 WBC (Bld) [#/Vol] 6.1 10*3/uL 3.8-11.6 [facility] Thyrotropin [Units/volume] i n Serum or PlasmaOrdered By: Peter Ahumada on 03-19-2023 TSH Qn 2.20 m[IU]/L 0.45-5.33 [facility] Thyroxine (T4) free [Mass/vo lume] in Serum or PlasmaOrdered By: Peter Ahumada on 03-19-2023 Free T4 [Mass/Vol] 0.62 ng/dL 0.61-1.12 [facility] Alanine aminotransferase [En zymatic activity/volume] in Serum or PlasmaOrdered By: Alba Marshall on 11-01-2022 ALT [Catalytic activity/Vol] 7 U/L 7-52 [facility] Albumin [Mass/volume] in Ser um or Plasma by Bromocresol green (BCG) dye binding methoOrdered By: Alba Marshall on 11-01-2022 Albumin BCG dye [Mass/Vol] 3.7 g/dL 3.5-5.7 [facility] Alkaline phosphatase [Enzyma tic activity/volume] in Serum or PlasmaOrdered By: Alba Marshall on 11-01-2022 ALP [Catalytic activity/Vol] 47 U/L 34-104 [facility] Aspartate aminotransferase [ Enzymatic activity/volume] in Serum or PlasmaOrdered By: Albayehuda Marshall on 11-01-2022 AST [Catalytic activity/Vol] 12 U/L 13-39 [facility] Automated erythrocytes count in urine sediment (number/area)Ordered By: Alba Marshall on 11-01-2022 RBC Auto (Urine sed) [#/Area] 1-2 [HPF] 0-4 [facility] Comment on above: --- 11/01/22 1049 -- -Ur RBC previously reported as: 1-2 /HPFMicroscopic results may be affected due to low specimen volume. Automated leukocytes count i n urine sediment (number/area)Ordered By: Alba Marshall on 11-01-2022 WBC Auto (Urine sed) [#/Area] 1-2 [HPF] 0-4 [facility] Basophils Auto (Bld) [#/Vol] Ordered By: Albayehuda Marshall on 11-01-2022 Basophils (Bld) [#/Vol] 0.1 10*3/uL 0.0-0.2 [facility] Basophils/100 WBC Auto (Bld) Ordered By: [facility] Rolando on 11-01-2022 Basophils/100 WBC (Bld) 0.9 % . [facility] Bilirubin Test strip Ql (U)O rdered By: Alba Marshall on 11-01-2022 Bilirubin Ql (U) Negative Negative [facility] Bilirubin.direct [Mass/volum e] in Serum or PlasmaOrdered By: [facility] on 11-01-2022 Bilirubin.direct [Mass/Vol] 0.10 mg/dL 0.03-0.18 [facility] Bilirubin.total [Mass/volume ] in Serum or PlasmaOrdered By: Alba Wrenimore on 11-01-2022 Bilirubin [Mass/Vol] 0.3 mg/dL 0.3-1.0 [facility] Calcium [Mass/volume] in Ser um or PlasmaOrdered By: Alba Wrenimore on 11-01-2022 Calcium [Mass/Vol] 8.8 mg/dL 8.6-10.3 [facility] Carbon dioxide, total [Moles /volume] in Serum or PlasmaOrdered By: Alba Bullimore on 11-01-2022 CO2 [Moles/Vol] 27.6 mmol/L 21.0-31.0 [facility] Chloride [Moles/volume] in S renetta or PlasmaOrdered By: Alba Bullimore on 11-01-2022 Chloride [Moles/Vol] 105 mmol/L 98-107 [facility] Choriogonadotropin.beta subu nit [Units/volume] in Serum or PlasmaOrdered By: Alba Marshall on 11-01-2022 HCG.beta subunit Qn m[IU]/mL [facility] Comment on above: Approximate Approxim ate hCG Gestational Age Range (mIU/ml) (weeks)0.2-1 5-50 1-2 50-500 2-3 100-5,000 3-4 500-10,000 4-5 1,000-50,000 5-6 10,000-100,000 6-8 15,000-200,000 8-12 10,000-100,000 Color Auto (U)Ordered By: Malgorzata Marshall on 11-01-2022 Color (U) Yellow Yellow [facility] Creatinine [Mass/volume] in Serum or PlasmaOrdered By: Alba Marshall on 11-01-2022 Creatinine [Mass/Vol] 0.60 mg/dL 0.60-1.20 [facility] Eosinophils Auto (Bld) [#/Vo l]Ordered By: Alba Wrenimore on 11-01-2022 Eosinophils (Bld) [#/Vol] 0.2 10*3/uL 0.0-0.45 [facility] Eosinophils/100 WBC Auto (Bl d)Ordered By: Alba Marshall on 11-01-2022 Eosinophils/100 WBC (Bld) 3.0 % . [facility] Erythrocyte distribution wid th Auto (RBC) [Ratio]Ordered By: Alba Marshall on 11-01-2022 Erythrocyte distribution width (RBC) [Ratio] 13.2 % 11.9-15.3 [facility] Globulin Calc (S) [Mass/Vol] Ordered By: Albayehuda Marshall on 11-01-2022 Globulin (S) [Mass/Vol] 3.1 g/dL [facility] Glucose [Mass/volume] in Ser um or PlasmaOrdered By: [facility] on 11-01-2022 Glucose [Mass/Vol] 95 mg/dL 70-100 [facility] Comment on above: ADA recommended refe rence rangeRandom Glucose Reference Range is dependent on time and content of last meal. Glucose of more than 200 mg/dL in a nonstressed, ambulatory subject supports the diagnosis of Diabetes Mellitus. Hematocrit Auto (Bld) [Volum e fraction]Ordered By: Alba Marshall on 11-01-2022 Hematocrit (Bld) [Volume fraction] 36.8 % 34.0-46.4 [facility] Hemoglobin [Mass/volume] in BloodOrdered By: Alba Marshall on 11-01-2022 Hemoglobin (Bld) [Mass/Vol] 12.5 g/dL 11.8-15.4 [facility] Ketones Auto test strip (U) [Mass/Vol]Ordered By: Alba Marshall on 11-01-2022 Ketones (U) [Mass/Vol] Negative Negative [facility] Laboratory - UrinalysisOrder ed By: Alba Marshall on 11-01-2022 Hyaline casts LM Ql (Urine sed) 0-8 [LPF] 0-8 [facility] Leukocytes [#/volume] correc bryan for nucleated erythrocytes in Blood by Automated counOrdered By: Albayehuda Marshall on 11-01-2022 WBC corrected for nucl RBC Auto (Bld) [#/Vol] 7.8 10*3/uL 3.8-11.6 [facility] Lymphocytes Auto (Bld) [#/Vo l]Ordered By: Alba Bullimore on 11-01-2022 Lymphocytes (Bld) [#/Vol] 1.5 10*3/uL 1.00-4.8 [facility] Lymphocytes/100 WBC Auto (Bl d)Ordered By: Alba Bullimore on 11-01-2022 Lymphocytes/100 WBC (Bld) 19.6 % . [facility] MCH Auto (RBC) [Entitic mass ]Ordered By: Alba Bullimore on 11-01-2022 MCH (RBC) [Entitic mass] 28.3 pg 24.7-34.3 [facility] MCHC Auto (RBC) [Mass/Vol]Or dered By: Alba Bullimore on 11-01-2022 MCHC (RBC) [Mass/Vol] 33.9 g/dL 32.0-35.0 [facility] MCV Auto (RBC) [Entitic vol] Ordered By: Alba Bullimore on 11-01-2022 MCV (RBC) [Entitic vol] 83.3 fL 80-100 [facility] Monocyte distribution width [Entitic volume] in Blood by AutomatedOrdered By: Alba Bullimore on 11-01-2022 Monocyte distribution width Auto (Bld) [Entitic vol] 17.79 % 0.00-20.00 [facility] Monocytes Auto (Bld) [#/Vol] Ordered By: Alba Bullimore on 11-01-2022 Monocytes (Bld) [#/Vol] 0.5 10*3/uL 0.0-0.8 [facility] Monocytes/100 WBC Auto (Bld) Ordered By: Alba Bullimore on 11-01-2022 Monocytes/100 WBC (Bld) 6.9 % . [facility] Neutrophils Auto (Bld) [#/Vo l]Ordered By: Alba Bullimore on 11-01-2022 Neutrophils (Bld) [#/Vol] 5.4 10*3/uL 1.8-7.7 [facility] Neutrophils/100 WBC Auto (Bl d)Ordered By: Alba Bullimore on 11-01-2022 Neutrophils/100 WBC (Bld) 69.6 % . [facility] Nitrite Test strip Ql (U)Ord ered By: Alba Ibrahimore on 11-01-2022 Nitrite Ql (U) Negative Negative [facility] No Panel InformationOrdered By: Alba Holgerimore on 11-01-2022 Estimated GFR (CKD-EPI) > 60.0 mL/Min [facility] Creatinine Clearance (Chem 179.12 [facility] Nucleated erythrocytes [Pres ence] in Blood by Automated countOrdered By: Alba Bullimore on 11-01-2022 Nucleated RBC Auto Ql (Bld) 0.1 /100{WBC} 0-0.5 [facility] Platelet mean volume Auto (B ld) [Entitic vol]Ordered By: Alba Wrenimore on 11-01-2022 Platelet mean volume (Bld) [Entitic vol] 7.5 fL 6.3-10.7 [facility] Platelets Auto (Bld) [#/Vol] Ordered By: Alba Bullimore on 11-01-2022 Platelets (Bld) [#/Vol] 278 10*3/uL 150-450 [facility] Potassium [Moles/volume] in Serum or PlasmaOrdered By: Alba Bullimore on 11-01-2022 Potassium [Moles/Vol] 4.3 mmol/L 3.5-5.1 [facility] Protein Auto test strip (U) [Mass/Vol]Ordered By: Alba Ibrahimore on 11-01-2022 Protein (U) [Mass/Vol] Negative Negative [facility] Protein [Mass/volume] in Ser um or PlasmaOrdered By: Alba Bullimore on 11-01-2022 Protein [Mass/Vol] 6.8 g/dL 6.4-8.9 [facility] RBC Auto (Bld) [#/Vol]Ordere d By: Alba Bullimore on 11-01-2022 RBC (Bld) [#/Vol] 4.41 10*6/uL 3.60-5.00 [facility] Serum or plasma albumin/glob ulin mass ratioOrdered By: Alba Bullimore on 11-01-2022 Albumin/Globulin [Mass ratio] 1.2 {ratio} [facility] Serum or plasma anion gap de terminationOrdered By: Alba Marshall on 11-01-2022 Anion gap [Moles/Vol] 10.7 mmol[facility]L [facility] Serum or plasma non-glucuron idated bilirubin measurement (mass/volume)Ordered By: Alba Marshall on 11-01-2022 Bilirubin.indirect [Mass/Vol] 0.2 mg/dL [facility] Sodium [Moles/volume] in Ser um or PlasmaOrdered By: Alba Marshall on 11-01-2022 Sodium [Moles/Vol] 139 mmol/L 136-145 [facility] Specific gravity Auto test s trip (U) [Rel density]Ordered By: Alba Marshall on 11-01-2022 Specific gravity (U) [Rel density] 1.021 1.001-1.030 [facility] Squamous epithelial cells de tection in urine sediment by light microscopyOrdered By: Alba Marshall on 11-01-2022 Epithelial cells.squamous LM Ql (Urine sed) 3-4 [HPF] 0-2 [facility] Urea nitrogen [Mass/volume] in Serum or PlasmaOrdered By: Alba Marshall on 11-01-2022 Urea nitrogen [Mass/Vol] 7 mg/dL 7-25 [facility] Urine bacteria detection by automated methodOrdered By: Albayehuda Marshlal on 11-01-2022 Bacteria Auto Ql (U) 1+ None Seen [facility] Comment on above: --- 11/01/22 1050 -- -Ur Bact previously reported as: 1+ H Microscopic results may be affected due to low specimen volume. Urine clarity by refractomet ry automatedOrdered By: Alba Marshall on 11-01-2022 Clarity Refractometry automated (U) Clear Clear [facility] Urine glucose measurement by automated test strip (mass/volume)Ordered By: Alba Marshall on 11-01-2022 Glucose Auto test strip (U) [Mass/Vol] Normal mg/dL Normal [facility] Urine hemoglobin detection b y automated test stripOrdered By: Alba Marshall on 11-01-2022 Hemoglobin Auto test strip Ql (U) 1+ Negative [facility] Urine leukocyte esterase det ection by automated test stripOrdered By: Abla Marshall on 11-01-2022 Leukocyte esterase Auto test strip Ql (U) Negative Negative [facility] Urobilinogen Auto test strip (U) [Mass/Vol]Ordered By: Alba Marshall on 11-01-2022 Urobilinogen (U) [Mass/Vol] Normal mg/dL Normal [facility] WBC Auto (Bld) [#/Vol]Ordere d By: Alba Marshall on 11-01-2022 WBC (Bld) [#/Vol] 7.8 10*3/uL 3.8-11.6 [facility] Yeast detection in urine sed iment by light microscopyOrdered By: Alba Marshall on 11-01-2022 Yeast LM Ql (Urine sed) None seen [HPF] None Seen [facility] Comment on above: --- 11/01/22 1050 [...] on 11-01-2022 pH (U) 6.5 [pH] 5.0-9.0 [facility] Alanine aminotransferase [En zymatic activity/volume] in Serum or PlasmaOrdered By: Peter Ahumada on 10-31-2022 ALT [Catalytic activity/Vol] 8 U/L 7-52 [facility] Albumin [Mass/volume] in Ser um or Plasma by Bromocresol green (BCG) dye binding methoOrdered By: Peter Ahumada on 10-31-2022 Albumin BCG dye [Mass/Vol] 3.8 g/dL 3.5-5.7 [facility] Alkaline phosphatase [Enzyma tic activity/volume] in Serum or PlasmaOrdered By: Peter Ahumada on 10-31-2022 ALP [Catalytic activity/Vol] 49 U/L 34-104 [facility] Aspartate aminotransferase [ Enzymatic activity/volume] in Serum or PlasmaOrdered By: Peter Ahumada on 10-31-2022 AST [Catalytic activity/Vol] 16 U/L 13-39 [facility] Basophils Auto (Bld) [#/Vol] Ordered By: Peter Ahumada on 10-31-2022 Basophils (Bld) [#/Vol] 0.1 10*3/uL 0.0-0.2 [facility] Basophils/100 WBC Auto (Bld) Ordered By: Peter Ahumada on 10-31-2022 Basophils/100 WBC (Bld) 0.9 % . [facility] Bilirubin.total [Mass/volume ] in Serum or PlasmaOrdered By: Peter Ahumada on 10-31-2022 Bilirubin [Mass/Vol] 0.3 mg/dL 0.3-1.0 [facility] Calcium [Mass/volume] in Ser um or PlasmaOrdered By: Peter Ahumada on 10-31-2022 Calcium [Mass/Vol] 9.0 mg/dL 8.6-10.3 [facility] Carbon dioxide, total [Moles /volume] in Serum or PlasmaOrdered By: Peter Ahuamda on 10-31-2022 CO2 [Moles/Vol] 25.8 mmol/L 21.0-31.0 [facility] Chloride [Moles/volume] in S renetta or PlasmaOrdered By: Peter Ahumada on 10-31-2022 Chloride [Moles/Vol] 106 mmol/L 98-107 [facility] Cholesterol [Mass/volume] in Serum or PlasmaOrdered By: Peter Ahumada on 10-31-2022 Cholesterol [Mass/Vol] 152 mg/dL 140-200 [facility] Comment on above: Chol less than 200 m g/dl low riskChol 201-239 mg/dl borderline riskChol 240 mg/dl and greater high risk Cholesterol in LDL Calc [Mas s/Vol]Ordered By: Peter Ahumada on 10-31-2022 Cholesterol in LDL [Mass/Vol] 74 mg/dL 0-100 [facility] Comment on above: LDL ATP III CLASSIFI CATIONLDL less than 100 mg/dL OptimalLDL 100-129 mg/dL Near or above optimalLDL 130-159 mg/dL Borderline highLDL 160-189 mg/dL HighLDL greater than 189 mg/dL Very high Cholesterol in VLDL Calc [Ma ss/Vol]Ordered By: Peter Ahumada on 10-31-2022 Cholesterol in VLDL [Mass/Vol] 25 mg/dL [facility] Creatinine [Mass/volume] in Serum or PlasmaOrdered By: Peter Ahumada on 10-31-2022 Creatinine [Mass/Vol] 0.55 mg/dL 0.60-1.20 [facility] Eosinophils Auto (Bld) [#/Vo l]Ordered By: Peter Ahumada on 10-31-2022 Eosinophils (Bld) [#/Vol] 0.2 10*3/uL 0.0-0.45 [facility] Eosinophils/100 WBC Auto (Bl d)Ordered By: Peter Ahumada on 10-31-2022 Eosinophils/100 WBC (Bld) 2.9 % . [facility] Erythrocyte distribution wid th Auto (RBC) [Ratio]Ordered By: Peter Ahumada on 10-31-2022 Erythrocyte distribution width (RBC) [Ratio] 13.3 % 11.9-15.3 [facility] Globulin Calc (S) [Mass/Vol] Ordered By: Peter Ahumada on 10-31-2022 Globulin (S) [Mass/Vol] 2.8 g/dL [facility] Glucose [Mass/volume] in Ser um or PlasmaOrdered By: Peter Ahumada on 10-31-2022 Glucose [Mass/Vol] 98 mg/dL 70-100 [facility] Comment on above: ADA recommended refe rence rangeRandom Glucose Reference Range is dependent on time and content of last meal. Glucose of more than 200 mg/dL in a nonstressed, ambulatory subject supports the diagnosis of Diabetes Mellitus. Hematocrit Auto (Bld) [Volum e fraction]Ordered By: Peter Ahumada on 10-31-2022 Hematocrit (Bld) [Volume fraction] 37.3 % 34.0-46.4 [facility] Hemoglobin [Mass/volume] in BloodOrdered By: Peter Ahumada on 10-31-2022 Hemoglobin (Bld) [Mass/Vol] 12.4 g/dL 11.8-15.4 [facility] Leukocytes [#/volume] correc bryan for nucleated erythrocytes in Blood by Automated counOrdered By: Peter Ahumada on 10-31-2022 WBC corrected for nucl RBC Auto (Bld) [#/Vol] 8.2 10*3/uL 3.8-11.6 [facility] Lymphocytes Auto (Bld) [#/Vo l]Ordered By: Peter Ahumada on 10-31-2022 Lymphocytes (Bld) [#/Vol] 1.8 10*3/uL 1.00-4.8 [facility] Lymphocytes/100 WBC Auto (Bl d)Ordered By: Peter Ahumada on 10-31-2022 Lymphocytes/100 WBC (Bld) 21.7 % . [facility] MCH Auto (RBC) [Entitic mass ]Ordered By: Peter Ahumada on 10-31-2022 MCH (RBC) [Entitic mass] 28.0 pg 24.7-34.3 [facility] MCHC Auto (RBC) [Mass/Vol]Or dered By: Peter Ahumada on 10-31-2022 MCHC (RBC) [Mass/Vol] 33.3 g/dL 32.0-35.0 [facility] MCV Auto (RBC) [Entitic vol] Ordered By: Peter Ahumada on 10-31-2022 MCV (RBC) [Entitic vol] 84.1 fL 80-100 [facility] Monocytes Auto (Bld) [#/Vol] Ordered By: Peter Ahumada on 10-31-2022 Monocytes (Bld) [#/Vol] 0.5 10*3/uL 0.0-0.8 [facility] Monocytes/100 WBC Auto (Bld) Ordered By: Peter Ahumada on 10-31-2022 Monocytes/100 WBC (Bld) 6.2 % . [facility] Neutrophils Auto (Bld) [#/Vo l]Ordered By: Peter Ahumada on 10-31-2022 Neutrophils (Bld) [#/Vol] 5.6 10*3/uL 1.8-7.7 [facility] Neutrophils/100 WBC Auto (Bl d)Ordered By: Peter Ahumada on 10-31-2022 Neutrophils/100 WBC (Bld) 68.3 % . [facility] No Panel InformationOrdered By: Peter Ahumada on 10-31-2022 Estimated GFR (CKD-EPI) > 60.0 mL/Min [facility] Creatinine Clearance (Chem N/A [facility] Nucleated erythrocytes [Pres ence] in Blood by Automated countOrdered By: Peter Ahumada on 10-31-2022 Nucleated RBC Auto Ql (Bld) 0.1 /100{WBC} 0-0.5 [facility] Platelet mean volume Auto (B ld) [Entitic vol]Ordered By: Peter Ahumada on 10-31-2022 Platelet mean volume (Bld) [Entitic vol] 8.8 fL 6.3-10.7 [facility] Platelets Auto (Bld) [#/Vol] Ordered By: Peter Ahumada on 10-31-2022 Platelets (Bld) [#/Vol] 305 10*3/uL 150-450 [facility] Potassium [Moles/volume] in Serum or PlasmaOrdered By: Peter Ahumada on 10-31-2022 Potassium [Moles/Vol] 4.2 mmol/L 3.5-5.1 [facility] Protein [Mass/volume] in Ser um or PlasmaOrdered By: Peter Ahumada on 10-31-2022 Protein [Mass/Vol] 6.6 g/dL 6.4-8.9 [facility] RBC Auto (Bld) [#/Vol]Ordere d By: Peter Ahumada on 10-31-2022 RBC (Bld) [#/Vol] 4.44 10*6/uL 3.60-5.00 [facility] Serum or plasma albumin/glob ulin mass ratioOrdered By: Peter Ahumada on 10-31-2022 Albumin/Globulin [Mass ratio] 1.4 {ratio} [facility] Serum or plasma anion gap de terminationOrdered By: Peter Ahumada on 10-31-2022 Anion gap [Moles/Vol] 11.4 mmol/L 6.0-15.0 [facility] Serum or plasma high density lipoprotein (HDL) cholesterol measurementOrdered By: Peter Ahumada on 10-31-2022 Cholesterol in HDL [Mass/Vol] 53 mg/dL 35-85 [facility] Comment on above: HDL CHOL ATP-III CLA SSIFICATION Cardiovascular RiskHDL > or equal to 60 mg/dL LOWHDL < 40 mg/dL HIGH Serum or plasma total choles terol/high density lipoprotein (HDL) cholesterol mass ratOrdered By: Peter Ahumada on 10-31-2022 Cholesterol.total/Chol esterol in HDL [Mass ratio] 2.9 {ratio} <5.0 [facility] Sodium [Moles/volume] in Ser um or PlasmaOrdered By: Peter Ahumada on 10-31-2022 Sodium [Moles/Vol] 139 mmol/L 136-145 [facility] Thyrotropin [Units/volume] i n Serum or PlasmaOrdered By: Peter Ahumada on 10-31-2022 TSH Qn 0.61 m[IU]/L 0.45-5.33 [facility] Thyroxine (T4) free [Mass/vo lume] in Serum or PlasmaOrdered By: Peter Ahumada on 10-31-2022 Free T4 [Mass/Vol] 0.76 ng/dL 0.61-1.12 [facility] Triglyceride [Mass/volume] i n Serum or PlasmaOrdered By: Peter Ahumada on 10-31-2022 Triglyceride [Mass/Vol] 125 mg/dL 0-149 [facility] Comment on above: TRIG ATP III CLASSIF ICATIONTRIG less than 150 mg/dL NormalTRIG 150-199 mg/dL Borderline highTRIG 200-500 mg/dL High TRIG greater than 500 mg/dL Very highStandard traceable to the Center for Disease Conrtrol and Prevention (CDC) test method. Urea nitrogen [Mass/volume] in Serum or PlasmaOrdered By: Peter Ahumada on 10-31-2022 Urea nitrogen [Mass/Vol] 6 mg/dL 7-25 [facility] WBC Auto (Bld) [#/Vol]Ordere d By: Peter Ahumada on 10-31-2022 WBC (Bld) [#/Vol] 8.2 10*3/uL 3.8-11.6 [facility] Albumin [Mass/volume] in Ser um or PlasmaOrdered By: Peter Ahumada on 04-19-2022 Albumin [Mass/Vol] 3.2 g/dL 3.2-5.5 [facility] Basophils Auto (Bld) [#/Vol] Ordered By: Peter Ahumada on 04-19-2022 Basophils (Bld) [#/Vol] 0.0 10*3/uL 0.0-0.2 [facility] Basophils/100 WBC Auto (Bld) Ordered By: Peter Ahumada on 04-19-2022 Basophils/100 WBC (Bld) 0.7 % . [facility] Blood hemoglobin measurement (mass/volume)Ordered By: Peter Ahumada on 04-19-2022 Hemoglobin (Bld) [Mass/Vol] 12.3 g/dL 11.8-15.4 [facility] Blood leukocytes automated c ount (number/volume)Ordered By: Peter Ahumada on 04-19-2022 WBC (Bld) [#/Vol] 5.9 10*3/uL 4.5-11.0 [facility] Cholesterol [Mass/volume] in Serum or PlasmaOrdered By: Peter Ahumada on 04-19-2022 Cholesterol [Mass/Vol] 159 mg/dL 140-200 [facility] Comment on above: Chol less than 200 m g/dl low riskChol 201-239 mg/dl borderline riskChol 240 mg/dl and greater high risk Cholesterol in LDL Calc [Mas s/Vol]Ordered By: Peter Ahumada on 04-19-2022 Cholesterol in LDL [Mass/Vol] 84 mg/dL 0-100 [facility] Comment on above: LDL ATP III CLASSIFI CATIONLDL less than 100 mg/dL OptimalLDL 100-129 mg/dL Near or above optimalLDL 130-159 mg/dL Borderline highLDL 160-189 mg/dL HighLDL greater than 189 mg/dL Very high Cholesterol in VLDL Calc [Ma ss/Vol]Ordered By: Peter Ahumada on 04-19-2022 Cholesterol in VLDL [Mass/Vol] 22 mg/dL [facility] Creatinine and Glomerular fi ltration rate.predicted panel (S/P/Bld)Ordered By: Peter Ahumada on 04-19-2022 Creatinine [Mass/Vol] 0.58 mg/dL 0.44-1.03 [facility] Eosinophils Auto (Bld) [#/Vo l]Ordered By: Peter Ahumada on 04-19-2022 Eosinophils (Bld) [#/Vol] 0.1 10*3/uL 0.0-0.45 [facility] Eosinophils/100 WBC Auto (Bl d)Ordered By: Peter Ahumada on 04-19-2022 Eosinophils/100 WBC (Bld) 2.4 % . [facility] Erythrocyte distribution wid th Auto (RBC) [Ratio]Ordered By: Peter Ahumada on 04-19-2022 Erythrocyte distribution width (RBC) [Ratio] 13.4 % 11.9-15.3 [facility] Estimated glomerular filtrat ion rate (GFR) non- AmericanOrdered By: Peter Ahumada on 04-19-2022 GFR/1.73 sq M.predicted among non-blacks MDRD (S/P/Bld) [Vol rate/Area] > 60 mL/Min [facility] Globulin Calc (S) [Mass/Vol] Ordered By: Peter Ahumada on 04-19-2022 Globulin (S) [Mass/Vol] 3.1 g/dL [facility] Hematocrit Auto (Bld) [Volum e fraction]Ordered By: Peter Ahumada on 04-19-2022 Hematocrit (Bld) [Volume fraction] 37.1 % 34.0-46.4 [facility] - Hematology and Cell countsOrdered By: Peter Ahumada on 04-19-2022 Nucleated RBC/100 WBC (Bld) [Ratio] 0.1 % 0-0.5 [facility] Lymphocytes Auto (Bld) [#/Vo l]Ordered By: Peter Ahumada on 04-19-2022 Lymphocytes (Bld) [#/Vol] 1.7 10*3/uL 1.00-4.8 [facility] Lymphocytes/100 WBC Auto (Bl d)Ordered By: Peter Ahumada on 04-19-2022 Lymphocytes/100 WBC (Bld) 28.8 % . [facility] MCH Auto (RBC) [Entitic mass ]Ordered By: Peter Ahumada on 09-28-2022 MCH (RBC) [Entitic mass] 27.8 pg 24.7-34.3 [facility] MCHC Auto (RBC) [Mass/Vol]Or dered By: Peter Ahumada on 04-19-2022 MCHC (RBC) [Mass/Vol] 33.2 g/dL 32.0-35.0 [facility] MCV Auto (RBC) [Entitic vol] Ordered By: Peter Ahumada on 04-19-2022 MCV (RBC) [Entitic vol] 83.6 fL 80-100 [facility] Monocytes Auto (Bld) [#/Vol] Ordered By: Peter Ahumada on 04-19-2022 Monocytes (Bld) [#/Vol] 0.4 10*3/uL 0.0-0.8 [facility] Monocytes/100 WBC Auto (Bld) Ordered By: Peter Ahumada on 04-19-2022 Monocytes/100 WBC (Bld) 6.6 % . [facility] Neutrophils Auto (Bld) [#/Vo l]Ordered By: Peter Ahumada on 04-19-2022 Neutrophils (Bld) [#/Vol] 3.6 10*3/uL 1.8-7.7 [facility] Neutrophils/100 WBC Auto (Bl d)Ordered By: Peter Ahumada on 04-19-2022 Neutrophils/100 WBC (Bld) 61.5 % . [facility] No Panel InformationOrdered By: Peter Ahumada on 04-19-2022 Estimated GFR () > 60 mL/Min [facility] Comment on above: GFR estimated refere nce range: According to KDOQI guidelines, <60 ml/min/1.73m2 is sufficient to diagnose a patient with chronic kidney disease. Pharmacy Creatinine Clearance (Chem N/A [facility] Platelet mean volume Auto (B ld) [Entitic vol]Ordered By: Peter Ahumada on 04-19-2022 Platelet mean volume (Bld) [Entitic vol] 8.9 fL 6.3-10.7 [facility] Platelets Auto (Bld) [#/Vol] Ordered By: Peter Ahumada on 04-19-2022 Platelets (Bld) [#/Vol] 319 10*3/uL 150-450 [facility] Protein [Mass/volume] in Ser um or PlasmaOrdered By: Peter Ahumada on 04-19-2022 Protein [Mass/Vol] 6.3 g/dL 6.1-7.9 [facility] RBC Auto (Bld) [#/Vol]Ordere d By: Peter Ahumada on 04-19-2022 RBC (Bld) [#/Vol] 4.43 10*6/uL 3.60-5.00 [facility] Serum or plasma alanine ny otransferase measurement without P-5'-P (enzymatic activiOrdered By: Peter Ahumada on 04-19-2022 ALT No additional P-5'-P [Catalytic activity/Vol] 9 U/L 10-60 [facility] Serum or plasma albumin/glob ulin mass ratioOrdered By: Peter Ahumada on 04-19-2022 Albumin/Globulin [Mass ratio] 1.0 {ratio} [facility] Serum or plasma alkaline deirdre sphatase measurement (enzymatic activity/volume)Ordered By: Peter Ahumada on 04-19-2022 ALP [Catalytic activity/Vol] 41 U/L 32-92 [facility] Serum or plasma anion gap de terminationOrdered By: Peter Ahumada on 04-19-2022 Anion gap [Moles/Vol] 13.9 mmol/L 6.0-15.0 [facility] Serum or plasma aspartate am inotransferase measurement (enzymatic activity/volume)Ordered By: Peter Ahumada on 04-19-2022 AST [Catalytic activity/Vol] 15 U/L 10-42 [facility] Serum or plasma calcium scotty urement (mass/volume)Ordered By: Peter Ahumada on 04-19-2022 Calcium [Mass/Vol] 8.8 mg/dL 8.2-10.2 [facility] Serum or plasma chloride francoise surement (moles/volume)Ordered By: Peter Ahumada on 04-19-2022 Chloride [Moles/Vol] 100 mmol/L 95-114 [facility] Serum or plasma glucose scotty urement (mass/volume)Ordered By: Peter Ahumada on 04-19-2022 Glucose [Mass/Vol] 87 mg/dL 70-100 [facility] Comment on above: ADA recommended refe rence rangeRandom Glucose Reference Range is dependent on time and content of last meal. Glucose of more than 200 mg/dL in a nonstressed, ambulatory subject supports the diagnosis of Diabetes Mellitus. Serum or plasma high density lipoprotein (HDL) cholesterol measurementOrdered By: Peter Ahumada on 04-19-2022 Cholesterol in HDL [Mass/Vol] 53 mg/dL 35-85 [facility] Comment on above: HDL CHOL ATP-III CLA SSIFICATION Cardiovascular RiskHDL > or equal to 60 mg/dL LOWHDL < 40 mg/dL HIGH Serum or plasma potassium me asurement (moles/volume)Ordered By: Peter Ahumada on 04-19-2022 Potassium [Moles/Vol] 3.9 mmol/L 3.5-5.1 [facility] Serum or plasma sodium measu rement (moles/volume)Ordered By: Peter Ahumada on 04-19-2022 Sodium [Moles/Vol] 136 mmol/L 136-146 [facility] Serum or plasma total biliru bin measurement (mass/volume)Ordered By: Peter Ahumada on 04-19-2022 Bilirubin [Mass/Vol] 0.4 mg/dL 0.3-1.2 [facility] Serum or plasma total carbon dioxide measurement (moles/volume)Ordered By: Peter Ahumada on 04-19-2022 CO2 [Moles/Vol] 26.0 mmol/L 22.0-30.0 [facility] Serum or plasma total choles terol/high density lipoprotein (HDL) cholesterol mass ratOrdered By: Peter Ahumada on 04-19-2022 Cholesterol.total/Chol esterol in HDL [Mass ratio] 3.0 {ratio} <5.0 [facility] Serum or plasma urea nitroge n measurement (mass/volume)Ordered By: Peter Ahumada on 04-19-2022 Urea nitrogen [Mass/Vol] 5 mg/dL 9- [facility] TSH DL <= 0.005 mIU/L QnOrde red By: Peter Ahumada on 04-19-2022 TSH Qn 1.94 m[IU]/L 0.45-5.33 [facility] Thyroxine (T4) free [Mass/vo lume] in Serum or PlasmaOrdered By: Peter Ahumada on 04-19-2022 Free T4 [Mass/Vol] 0.69 ng/dL 0.61-1.12 [facility] Triglyceride [Mass/volume] i n Serum or PlasmaOrdered By: Peter Ahumada on 04-19-2022 Triglyceride [Mass/Vol] 111 mg/dL 35-149 [facility] Comment on above: TRIG ATP III CLASSIF ICATIONTRIG less than 150 mg/dL NormalTRIG 150-199 mg/dL Borderline highTRIG 200-500 mg/dL High TRIG greater than 500 mg/dL Very highStandard traceable to the Center for Disease Conrtrol and Prevention (CDC) test method. CNOVon 10-13-2021 CNOV Office Visit ([id number] ) -------- DARLING KHANNA ([id number]) 1980 F Date Time Provider Department 10/13/21 1:30 PM KATE DANIEL [id number] During your visit today, we recorded the following information about you: Temperature Pulse Blood pressure Weight 97.7 degrees 68/minute 112/55 115.2 kg Height 1.829 m Kate Daniel MD 10/17/2021 1:50 PM Signed Assessment ESTABLISHED PATIENT Darling Khanna is a 40 year old female with a right posterior liver subcapsular fluid collection ? 03/03/2021: Patient presented to [facility] ER on 02/08/2021 for [...] ? Received Records From:? 02/08/2021 ER Report [facility] 02/09/2021 ER Report [facility] 02/15/2021 PCP Office note ? Visited ER 4 times in the past month?with right sided?/10?abdominal pain that used to radiating to the [...] gradually improving. US of ovaries yesterday at [facility]. Scheduled for upper GI at end of month. Gained?50 pounds since July?(was in [place] for 3 months, drank a lot); [...] well. She did spend 3 months in [place] and did not have any issues, [...] which included preparing to see the patient, [id number] patient care and completing clinical documentation. MD Jayne Garrido Ma 10/13/2021 1:33 PM Signed What is the reason for your visit today? Follow up Who is your referring physician? Are you having poor oral intake? NO Have you had unintentional weight loss of 15 lbs/7 Kg in the last 3-6 months? NO Bowels: regular Wound: Temperature: No Drains: No Referring Provider: KATE DANIEL [[id number]] Allergies As of Date: 10/13/2021 Noted Allergy [...] of 05/10 (more content not included)... [facility] Mayela 09-30-2021 CASE Telephone ([id number]) -------- DARLING KHANNA ([id number]) 1980 F Date Time Provider Department 09/30/21 KATE DANIEL [id number] During your visit today, we recorded the following information about you: Sujatha Tomas 09/30/2021 9:00 AM Signed Called patient to reschedule her 10/13 in person to virtual. She would like to keep in person. She also wants to know if a CT or MRI can be ordered of her pancreas abdomen as she hasn't had anything done recently. She can be reached at [phone]. Talat Armendariz RN 10/10/2021 11:29 AM Signed [...] Status:Closed by TALAT ARMENDARIZ RN on 10/10/21 [facility] CNOVon 04-07-2021 CNOV Office Visit ([id number] ) -------- DARLING KHANNA ([id number]) 1980 F Date Time Provider Department 04/07/21 2:30 PM KATE DANIEL [id number] During your visit today, we recorded the following information about you: Temperature Pulse Blood pressure Weight 97.5 degrees 95/minute 136/77 109.3 kg Height 1.829 m Jayne Aguila [place] 04/07/2021 2:31 PM Signed What is the [...] subcapsular fluid collection 03/03/2021: Patient presented to [facility] ER on 02/08/2021 for [...] ? Received Records From:? 02/08/2021 ER Report [facility] 02/09/2021 ER Report [facility] 02/15/2021 PCP Office note ? Visited [...] gradually improving. US of ovaries yesterday at [facility]. Scheduled for upper GI at end of month. Gained 50 pounds since July (was in [place] for 3 months, drank a lot); [...] which included preparing to see the patient, [id number] patient care and completing clinical documentation. Kate Daniel MD Referring Provider: KATE DANIEL [[id number]] Allergies As of Date: 04/07/2021 Noted Allergy [...] 11/26/2017 Visit Notes: >> Jayne Aguila Ma [facility] Apr 07, 2021 2:28 PM Status: Signed What is the reason for your visit today? Follow up Who is your referring physician? Are you having poor oral intake? NO Have you had unintentional weight loss of 15 lbs/7 Kg in the last 3-6 months? NO Bowels: regular Wound: Temperature: No (more content not included)... [facility] CNTRTMon 03-22-2021 CNTRTM Treatment Team (ANSHUL RI) -------- DARLING KHANNA ([id number]) 1980 F Date Time Provider Department 03/22/21 [...] Status:Closed by WILLIAM DE LEÓN on 03/23/21 [facility] CNOVon 03-03-2021 CNOV Office Visit ([id number] ) -------- DARLING KHANNA ([id number]) 1980 F Date Time Provider Department 03/03/21 10:00 AM KATE DANIEL [id number] During your visit today, we recorded the [...] 40 year old female Patient presented to [facility] ER on 02/08/2021 for [...] ? Received Records From: 02/08/2021 ER Report [facility] 02/09/2021 ER Report [facility] 02/15/2021 PCP Office note Visited ER [...] gradually improving. US of ovaries yesterday at [facility]. Scheduled for upper GI at end of month. Gained 50 pounds since July (was in [place] for 3 months, drank a lot); [...] malignant. Seen by Dr. Haines on [facility], in [facility]; denies chemotherapy or radiation. Hernia [...] cm (6') (more content not included)... [facility] CNPNon 02-23-2021 CNPN Telephone ([facility]) -------- DARLING KHANNA ([id number]) 1980 F Date Time Provider Department 02/23/21 KATE DANIEL [facility] During your visit today, we recorded the following information about you: Talat Armendariz RN 02/23/2021 10:02 AM Addendum Hepatobiliary Surgery Consult HPI: Patient presented to [facility] ER on 02/08/2021 for [...] collection Received Records From: 02/08/2021 ER Report [facility] 02/09/2021 ER Report [facility] 02/15/2021 PCP Office note Records Review BMI 33 Current OCP Imagin02/08/2021 CT A/P wo IVCON (Report [facility]- report rec'd) - minor basilar atelectasis or scarring - nonspecific lymph nodes - tiny umbilical hernia containing fat - no intra hepatic masses are noted - no bowel or urinary tract obstructions - no acute findings 02/08/2021 Ultrasound RUQ (Report [facility]- report rec'd) - unremarkable - no evidence of gallstones, gallbladder wall thickening, or ductal dilation 02/15/2021 CT A/P w IVCON (Report [facility]- report rec'd) - no acute abdominal or pelvis abnormality - indeterminate liver lesion: ill defined low attenuation lesion measuring at least 2.5cm in the medial segment of the left lobe of the liver posteriorly 02/17/2021 MRI Abdomen w/wo IVCON (Report [facility]- report rec'd) - unremarkable size of [...] months 02/22/2021 CT A/P w IVCON (Report [facility]- report rec'd) - 62mm x [...] scanned into Epic and imaging downloaded from [facility], please review. Tatyana Kilgore Pss 02/25/2021 9:53 AM Signed Scheduled patient for new consult on 03/03/2021. 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] Consult [173] Prescriptions as [...] Status:Closed by TATYANA PEDRO on 02/25/21 [facility] AMYLASEon 02-22-2021 Amylase [Catalytic activity/Vol] 48 U/L Normal 31-110 [facility] Comment on above: Performed By: #### L IPA, CMP, SHAI #### [facility] [address] [id number] Ruy Ayleen CBC AUTO DIFFon 02-22-2021 BASO # 0.1 103/ul Normal 0.0-0.1 [facility] Comment on above: Performed By: #### C BC #### [facility] [address] [place], [place] [id number] Ruy Ayleen Basophils/100 WBC (Bld) 0.7 % Normal 0.2-2.0 [facility] Comment on above: Performed By: #### C BC #### [facility] [address] [place], [place] [id number] Ruy Ayleen EO # 0.1 103/ul Normal 0.0-0.7 [facility] Comment on above: Performed By: #### C BC #### [facility] [address] [place], [place] [id number] Ruy Ayleen Eosinophils/100 WBC (Bld) 1.2 % Normal 0.9-7.0 [facility] Comment on above: Performed By: #### C BC #### [facility] [address] [place], [place] [id number] Ruy Ayleen Erythrocyte distribution width (RBC) [Ratio] 12.6 % Normal 11.0-15.0 [facility] Comment on above: Performed By: #### C BC #### [facility] [address] [id number] Ruy Ayleen Hematocrit (Bld) [Volume fraction] 38.7 % Normal 36.0-48.0 [facility] Comment on above: Performed By: #### C BC #### [facility] [address] [place] [address] Ruyradhames Abbasi Hemoglobin (Bld) [Mass/Vol] 12.6 g/dL Normal 12.0-16.0 [facility] Comment on above: Performed By: #### C BC #### [facility] [address] [place] [address] Ruyradhames Abbasi IG # 0.02 10e3/ul Normal 0.00-0.03 [facility] Comment on above: Performed By: #### C BC #### [facility] [address] [place] [address] Ruy Ayleen IG % 0.2 % Normal 0.0-0.5 [facility] Comment on above: Performed By: #### C BC #### [facility] [address] [place] [address] Ruy Ayleen LYMPH # 2.4 103/ul Normal 1.2-3.8 [facility] Comment on above: Performed By: #### C BC #### [facility] [address] [place] [address] Ruy Abbasi Lymphocytes/100 WBC (Bld) 22.4 % Normal 20.5-60.0 [facility] Comment on above: Performed By: #### C BC #### [facility] [address] [place] [address] Ruy Abbasi MANUAL DIFF REQ NO Normal [facility] Comment on above: Performed By: #### C BC #### [facility] [address] [place] [address] Ruyradhames Abbasi MCH (RBC) [Entitic mass] 27.7 pg Normal 26.7-34.0 [facility] Comment on above: Performed By: #### C BC #### [facility] [address] [place], [place] [id number] Ruyradhames Abbasi MCHC (RBC) [Mass/Vol] 32.6 g/dL Normal 29.9-35.2 [facility] Comment on above: Performed By: #### C BC #### [facility] [address] [place] [address] Ruyradhames Cardozoen MCV (RBC) [Entitic vol] 85.1 fL Normal 81.0-99.0 [facility] Comment on above: Performed By: #### C BC #### [facility] [address] [place], [place] [id number] Ruy Abbasi MONO # 0.7 103/ul Normal 0.3-0.8 [facility] Comment on above: Performed By: #### C BC #### [facility] [address] [place], [place] [address] Ruy Abbasi Monocytes/100 WBC (Bld) 6.5 % Normal 1.7-12.0 [facility] Comment on above: Performed By: #### C BC #### [facility] [address] [place] [address] Ruy Abbasi NEUT # 7.3 103/ul Critically high 1.4-6.5 [facility] Comment on above: Performed By: #### C BC #### [facility] [address] [place] [address] Ruy Abbasi Neutrophils/100 WBC (Bld) 69.0 % Normal 43.0-75.0 [facility] Comment on above: Performed By: #### C BC #### [facility] [address] [place], [place] [id number] Ruy Abbasi Platelet mean volume (Bld) [Entitic vol] 9.3 fL Critically low 9.5-13.5 [facility] Comment on above: Performed By: #### C BC #### [facility] [address] [place], [place] [address] Ruyradhames Cardozoen PLT 324 103/ul Normal 150-450 [facility] Comment on above: Performed By: #### C BC #### [facility] [address] [place], [place] [address] Ruy Ayleen RBC 4.55 106/ul Normal 4.20-5.40 [facility] Comment on above: Performed By: #### C BC #### [facility] [address] [place] [address] Ruy Ayleen WBC 10.6 103/ul Normal 4.0-11.0 [facility] Comment on above: Performed By: #### C BC #### [facility] [address] [place], [place] [address] ABD/PELV W CONon 02-23-20 CT [...] MARINA HERNANDEZ Date: 2021-02-22 03:10 Normal [facility] D-DIMERon 02-22-2021 D-DIMER 0.40 mg/L FEU Normal 0.19-0.50 [facility] Comment on above: Performed By: #### D DIM #### [facility] [address] [place], [place] [address] Ruy Abbasi D-DIMER COMMENTS SEE BELOW Normal [facility] Comment on above: Result Comment: Incr [...] hospitalization. Performed By: #### D DIM #### [facility] [address] [place], [place] [address] Ruy Cardozoen LIPASEon 02-22-2021 Lipase [Catalytic activity/Vol] 120.0 U/L Normal 23.0-300.0 [facility] Comment on above: Performed By: #### L IPA CMP, SHAI #### [facility] [address] [place], [place] [address] Ruy Cardozoen MONOon 02-22-2021 Monocytes (Bld) [#/Vol] Negative Normal NEGATIVE [facility] Comment on above: Performed By: #### M IGOR #### [facility] [address] [place] [address] Ruy Abbasi OT-CT ABD/PELVIS W CON IMPOR Ton 02-22-2021 OT-CT ABD/PELVIS W CON IMPORT Images were obtained outside of [facility] [id number] Normal [facility] OT-CT ABD/PELVIS W CON IMPORT Images were obtained outside of [facility] [id number] Normal [facility] PREG HCG QUALon 02-22-2021 , QUAL Negative Normal NEGATIVE [facility] Comment on above: Performed By: #### P REG #### [facility] [address] [place] [address] Ruy Abbasi PROF 14(COMP METB)on 021 Albumin [Mass/Vol] 3.2 g/dL Critically low 3.5-5.0 [facility] Comment on above: Performed By: #### L IPA CMP, SHAI #### [facility] [address] [place], [place] [address] Ruy Abbasi Albumin/Globulin [Mass ratio] 0.7 {ratio} Normal [facility] Comment on above: Performed By: #### L IPA CMP, SHAI #### [facility] [address] [place], [place] [address] Ruy Ayleen ALP [Catalytic activity/Vol] 54 U/L Normal 38-126 [facility] Comment on above: Performed By: #### L IPA, CMP, SHAI #### [facility] [address] [place] [address] Ruy Ayleen ALT [Catalytic activity/Vol] 11 U/L Normal 9-52 [facility] Comment on above: Performed By: #### L IPA, CMP, SHAI #### [facility] [address] [place] [address] Ruy Ayleen Anion gap [Moles/Vol] 11.6 mmol/L Normal [facility] Comment on above: Performed By: #### L IPA, CMP, SHAI #### [facility] [address] [place] [address] Ruy Ayleen AST [Catalytic activity/Vol] 12 U/L Critically low 14-36 [facility] Comment on above: Performed By: #### L IPA, CMP, SHAI #### [facility] [address] [place] [address] Ruy Ayleen Bilirubin [Mass/Vol] 0.2 mg/dL Normal 0.2-1.3 [facility] Comment on above: Performed By: #### L IPA, CMP, SHAI #### [facility] [address] [place] [address] Ruy Ayleen Calcium [Mass/Vol] 9.2 mg/dL Normal 8.4-10.2 [facility] Comment on above: Performed By: #### L IPA, CMP, SHAI #### [facility] [address] [place] [address] Ruy Ayleen Chloride [Moles/Vol] 104 mmol/L Normal 98-107 [facility] Comment on above: Performed By: #### L IPA, CMP, SHAI #### [facility] [address] [place] [address] Ruy Ayleen CO2 [Moles/Vol] 29.7 mmol/L Normal 22.0-30.0 [facility] Comment on above: Performed By: #### L IPA, CMP, SHAI #### [facility] [address] [place] [address] Ruy Ayleen Creatinine [Mass/Vol] 0.74 mg/dL Normal 0.52-1.04 [facility] Comment on above: Performed By: #### L IPA CMP, SHAI #### [facility] [address] [place] [address] Ruy Ayleen EGFR-AF MALAWIAN >60 Normal >=60 [facility] Comment on above: Performed By: #### L IPA CMP, SHAI #### [facility] [address] [place] [address] Ruy Ayleen EGFR-NON AF MALAWIAN >60 Normal >=60 [facility] Comment on above: Performed By: #### L BRETT CMP, SHAI #### [facility] [address] [place] [address] Ruy Ayleen Globulin (S) [Mass/Vol] 4.4 g/dL Normal [facility] Comment on above: Performed By: #### L IPA CMP, SHAI #### [facility] [address] [place] [address] Ruy Ayleen Glucose [Mass/Vol] 104 mg/dL Normal 74-106 [facility] Comment on above: Performed By: #### L IPA CMP, SHAI #### [facility] [address] [place] [address] Ruy Ayleen Potassium [Moles/Vol] 4.3 mmol/L Normal 3.4-5.0 [facility] Comment on above: Performed By: #### L IPA CMP, SHAI #### [facility] [address] [place] [address] Ruy Ayleen Protein [Mass/Vol] 7.6 g/dL Normal 6.1-8.2 [facility] Comment on above: Performed By: #### L IPA CMP, SHAI #### [facility] [address] [place] [address] Ruy Ayleen Sodium [Moles/Vol] 141 mmol/L Normal 137-145 [facility] Comment on above: Performed By: #### L IPA CMP, SHAI #### [facility] [address] [place] [address] Ruy Abbasi Urea nitrogen [Mass/Vol] 9.0 mg/dL Normal 7.0-17.0 [facility] Comment on above: Performed By: #### L KARLI WEST, SHAI #### [facility] [address] [place] [address] Ruy Abbasi Urea nitrogen/Creatinine [Mass ratio] 12.2 mg/mg Normal [facility] Comment on above: Performed By: #### L KARLI WEST, SHAI #### [facility] [address] [place] [address] Ruy Abbasi MR-MR abdomen wo/w con IMPOR Ton 02-16-2021 MR-MR abdomen wo/w con IMPORT Images were obtained outside of [facility] [id number] Normal [facility] CT-CT abdomen pelvis w con I MPORTon 02-15-2021 CT-CT abdomen pelvis w con IMPORT Images were obtained outside of [facility] [id number] Normal [facility] CT-CT abdomen pelvis wo con IMPORTon 02-08-2021 CT-CT abdomen pelvis wo con IMPORT Images were obtained outside of [facility] [id number] Normal [facility] US-US gall bladder IMPORTon 02-08-2021 US-US gall bladder IMPORT Images were obtained outside of [facility] [id number] Normal [facility] CNOVon 12-28-2020 CNOV Office Visit (LOORRM ) -------- DARLING KHANNA ([id number]) 1980 F Date Time Provider Department 12/28/20 3:30 PM OMEGA MARCANO During your visit today, we recorded the following information about you: Tracey Hair Ma 12/28/2020 4:25 PM Signed Dispensed XL/XXL Reaction brace for the Right knee. Dispensed by [employer]. Instructions were given on application/adjustments. She will f/u as scheduled/prn. Tracey Hair MA,RICARDO Referring Provider: ISHAN YUSUF [[id number]] Allergies As of Date: 12/28/2020 Noted Allergy [...] by TRACEY HAIR MA on 12/28/20 Normal [facility] CNOV Office Visit (LOORRM ) -------- ADOLFOAINSLEYDARLING ([id number]) 1980 F Date Time Provider Department 12/28/20 3:15 PM ISHAN YUSUF LOORRM During your visit today, we recorded the [...] was performed today. CLINICAL IMPRESSION / ASSESSMENT: (W38.242G) Closed nondisplaced fracture of proximal phalanx of [...] little finger with routine healing, subsequent encounter [F30.302S] Other Visit Diagnosis:Patellofemoral arthralgia of right knee [...] Encounter Status:Closed by ISHAN YUSUF on 12/28/20 [facility] CNOVon 11-30-2020 CNOV Office Visit (LOORRM ) -------- DARLING KHANNA ([id number]) 1980 F Date Time Provider Department 11/30/20 [...] results and radiologist's interpretation, available in the [facility] health record. Images were reviewed with the patient/family members in the office today. My personal interpretation of the performed imaging is healing proximal phalanx fracture CLINICAL IMPRESSION / ASSESSMENT: (T59.563M) Closed nondisplaced fracture of proximal phalanx of [...] little finger with routine healing, subsequent encounter [H85.040I] Order(s):XR HAND GENERAL 3V PA/LAT/OBL LT [[id number]] Order #: [id number] FUTURE CONSULT TO AUDIOVISUAL EQUIPMENT OPERATOR [[id number]] Order #: [id number]: [id number] FUTURE Prescriptions as of 11/30/2020 Sig: [...] Status:Closed by ISHAN YUSUF on 11/30/20 Normal [facility] XR HAND 3V PA/LAT/OBL LTon 0 [...] fractures. IMPRESSION: Healing 5th proximal phalanx fracture Quill Worker: WILBERT Transcribe Date/Time: Nov 30 2020 4:18P Dictated by : JUDITH FUENTES MD This examination was interpreted and the report reviewed and electronically signed by: JUDITH FUENTES MD on Nov 30 2020 4:19PM EST [id number] Normal [facility] XR Hand - left PA and Latera l and Obliqueon 11-30-2020 IMPRESSION: Healing 5th proximal phalanx fracture Quill Worker: WILBERT Transcribe Date/Time: Nov 30 2020 4:18P [...] No additional fractures. DIVISION OF RADIOLOGY Provider, [facility] - 11/30/2020 * * *Final Report* [...] IMPRESSION IMPRESSION: Healing 5th proximal phalanx fracture Quill Worker: PSCB Transcribe Date/Time: Nov 30 2020 4:18P [...] Office Visit (LOORRM ) -------- DARLING KHANNA ([id number]) 1980 F Date Time Provider Department 11/18/20 [...] results and radiologist's interpretation, available in the [facility] health record. Images were reviewed with the patient/family members in the office today. My personal interpretation of the performed imaging is intra-articular proximal phalanx fracture CLINICAL IMPRESSION / ASSESSMENT: (S67.367Z) Closed nondisplaced fracture of proximal phalanx of [...] [S62.647A] Order(s):XR HAND GENERAL 3V PA/LAT/OBL LT [[id number]] Order #: [id number] FUTURE Prescriptions as of 11/18/2020 Sig: OMEPRAZOLE [...] Encounter Status:Closed by ISHAN YUSUF on 11/18/20 [facility] XR HAND 3V PA/LAT/OBL LTon 0 11-18-2020 XR HAND 3V PA/LAT/OBL LT * * *Final Report* * * DATE OF EXAM: Nov 18 2020 3:50PM ARMANI [id number] - XR HAND 3V PA/LAT/OBL LT [...] unchanged. IMPRESSION: Healing fifth proximal phalanx fracture. Quill Worker: WILBERT Transcribe Date/Time: Nov 18 2020 8:15P Dictated by : ADRIANE CAMPOS MD This examination was interpreted and the report reviewed and electronically signed by: ADRIANE CAMPOS MD on Nov 18 2020 8:27PM EST [id number] Normal [facility] XR Hand - left PA and Latera l and Obliqueon 11-18-2020 IMPRESSION: Healing fifth proximal phalanx fracture. Quill Worker: WILBERT Transcribe Date/Time: Nov 18 2020 8:15P Dictated by : ADRIANE CAMPOS MD This examination was interpreted and the report reviewed and electronically signed by: ADRIANE CAMPOS MD on Nov 18 2020 8:27PM [facility] DIVISION OF RADIOLOGY * * *Final [...] fracture. Remainder unchanged. DIVISION OF RADIOLOGY Provider, [facility] - 11/18/2020 * * *Final Report* [...] IMPRESSION IMPRESSION: Healing fifth proximal phalanx fracture. Quill Worker: WILBERT Transcribe Date/Time: Nov 18 2020 8:15P [...] Office Visit (ORAVON ) -------- DARLING KHANNA ([id number]) 1980 F Date Time Provider Department 11/04/20 2:00 PM BOB MILLAN During your visit today, we recorded the following information about you: Bob Millan DO 11/04/2020 2:12 PM Signed [facility] Office Visit Documentation Note [facility] Sports Medicine Orthopaedic and Rheumatologic [place] REASON FOR VISIT / CHIEF COMPLAINT SERVICE [...] results and radiologist's interpretation, available in the [facility] health record. Images were reviewed with the patient/family members in the office today. My personal interpretation of the performed imaging is Has IA prox phalanx fracture at PIP ASSESSMENT / PLAN CLINICAL IMPRESSION / ASSESSMENT: (S62.647A) Closed nondisplaced [...] D.O. [facility] Orthopaedic and Rheumatologic [place] Team Physician, [facility] Consulting Physician, [place] Sawyer Landeros, E [employer] [phone] Patient verbalizes understanding and agrees with the treatment plan as detailed above. Referring Provider: SELF [[id number]] Allergies As of Date: 11/04/2020 Noted Allergy Reaction INDOMETHACIN 05/10/2018 7 - Swelling Date Reviewed: 11/04/2020 Reviewed by: Juaquin Farmer - Fully Assessed Reason for Visit: New [[id number]] Primary Visit Diagnosis:Closed nondisplaced fracture of proximal [...] for Dr. Yusuf or Shayla Silva in [place]. Follow-up and Disposition History Recorded Encounter Status:Closed by BOB MILLAN DO on 11/04/20 Normal [facility] DX-XR HAND COMPLETE LEFT IMP [facility] 10-30-2020 DX-XR HAND COMPLETE LEFT IMPORT Images were obtained outside of [facility] [id number] Normal [facility] Vital Signs Date Time Vital Sign Value Performing Clinician Facility 12-08-2024 12:48-0400 Body height 182.88 cm Peter Ahumada DO Work Phone: [facility] 12-08-2024 12:48-0400 Body mass index (BMI) [Ratio] 27.3 kg/m2 Peter Ahumada DO Work Phone: [facility] 12-08-2024 12:48-0400 Body weight 91.62 kg Peter Ahumada DO Work Phone: [facility] 12-08-2024 12:48-0400 Diastolic blood pressure 74 mm[Hg] Peter Ahumada DO Work Phone: [facility] 12-08-2024 12:48-0400 Heart rate 76 /min Peter Ahumada DO Work Phone: [facility] 12-08-2024 12:48-0400 Respiratory rate 18 /min Peter Ahumada DO Work Phone: [facility] 12-08-2024 12:48-0400 SaO2% (BldA) [Mass fraction] 96 % Peter Shens DO Work Phone: [facility] 12-08-2024 12:48-0400 Systolic blood pressure 118 mm[Hg] Peter Shens DO Work Phone: [facility] 09-10-2024 15:25-0500 Body height 182.9 cm Alber Itzkowitz DO Work Phone: [facility] 09-10-2024 15:25-0500 Body mass index (BMI) [Ratio] 27.8 kg/m2 Alber Itzkowitz DO Work Phone: [facility] 09-10-2024 15:25-0500 Body weight 92.99 kg Alber Itzkowitz DO Work Phone: [facility] 09-10-2024 15:25-0500 Diastolic blood pressure 70 mm[Hg] Alber Itzkowitz DO Work Phone: [facility] 09-10-2024 15:25-0500 Systolic blood pressure 120 mm[Hg] Alber Itzkowitz DO Work Phone: [facility] 09-09-2024 14:37-0500 Body height 182.88 cm Peter Shens DO Work Phone: [facility] 09-09-2024 14:37-0500 Body mass index (BMI) [Ratio] 27.9 kg/m2 Peter Shens DO Work Phone: [facility] 09-09-2024 14:37-0500 Body weight 93.44 kg Peter Acs DO Work Phone: [facility] 09-09-2024 14:37-0500 Diastolic blood pressure 70 mm[Hg] Peter Shens DO Work Phone: [facility] 09-09-2024 14:37-0500 Heart rate 74 /min Peter Shens DO Work Phone: [facility] 09-09-2024 14:37-0500 SaO2% (BldA) [Mass fraction] 95 % Peter Shens DO Work Phone: [facility] 09-09-2024 14:37-0500 Systolic blood pressure 126 mm[Hg] Peter Shens DO Work Phone: [facility] 06-10-2024 15:00-0500 Body height 182.88 cm Peter Shens DO Work Phone: [facility] 06-10-2024 15:00-0500 Body mass index (BMI) [Ratio] 32.3 kg/m2 Peter Shens DO Work Phone: [facility] 06-10-2024 15:00-0500 Body weight 107.95 kg Peter Shens DO Work Phone: [facility] 06-10-2024 15:00-0500 Diastolic blood pressure 60 mm[Hg] Peter Shens DO Work Phone: [facility] 06-10-2024 15:00-0500 Heart rate 75 /min Peter Shens DO Work Phone: [facility] 06-10-2024 15:00-0500 Respiratory rate 16 /min Peter Shens DO Work Phone: [facility] 06-10-2024 15:00-0500 SaO2% (BldA) [Mass fraction] 96 % Peter Shens DO Work Phone: [facility] 06-10-2024 15:00-0500 Systolic blood pressure 98 mm[Hg] Peter hSens DO Work Phone: [facility] 03-06-2024 14:27-0400 Body height 182.88 cm DO Peter Shens Work Phone: [facility] 03-06-2024 14:27-0400 Body mass index (BMI) [Ratio] 36.4 kg/m2 DO Peter Kuns Work Phone: [facility] 03-06-2024 14:27-0400 Body weight 122.01 kg DO Peter Kuns Work Phone: [facility] 03-06-2024 14:27-0400 Diastolic blood pressure 72 mm[Hg] DO Peter Kuns Work Phone: [facility] 03-06-2024 14:27-0400 Heart rate 77 /min DO Peter Kuns Work Phone: [facility] 03-06-2024 14:27-0400 Respiratory rate 16 /min DO Peter Kuns Work Phone: [facility] 03-06-2024 14:27-0400 SaO2% (BldA) [Mass fraction] 96 % DO Peter Kuns Work Phone: [facility] 03-06-2024 14:27-0400 Systolic blood pressure 118 mm[Hg] DO Peter Kuns Work Phone: [facility] 01-29-2024 14:05-0400 Diastolic blood pressure 78 mm[Hg] DO Peter Kuns Work Phone: [facility] 01-29-2024 14:05-0400 Heart rate 91 /min DO Peter Kuns Work Phone: [facility] 01-29-2024 14:05-0400 Respiratory rate 16 /min DO Peter Kuns Work Phone: [facility] 01-29-2024 14:05-0400 SaO2% (BldA) [Mass fraction] 94 % DO Peter Kuns Work Phone: [facility] 01-29-2024 14:05-0400 Systolic blood pressure 124 mm[Hg] DO Peter Kuns Work Phone: [facility] 01-29-2024 13:05-0400 Body temperature 97 [degF] DO Peter Ahumada Work Phone: [facility] 01-29-2024 12:42-0400 Inhaled oxygen flow rate 8 L/min DO Peter Shens Work Phone: [facility] 01-29-2024 11:44-0400 Body height 182.88 cm DO Peter Ahumada Work Phone: [facility] 01-29-2024 11:44-0400 Body mass index (BMI) [Ratio] 36.5 kg/m2 DO Peter Ahumada Work Phone: [facility] 01-29-2024 11:44-0400 Body weight 122.2 kg DO Peter Ahumada Work Phone: [facility] 12-31-2023 07:25-0400 Body height 2194.56 cm DO Peter Ahumada Work Phone: [facility] 12-31-2023 07:25-0400 Body mass index (BMI) [Ratio] 0.2 kg/m2 DO Peter Ahumada Work Phone: [facility] 12-31-2023 07:25-0400 Body weight 122.46 kg DO Peter Ahumada Work Phone: [facility] 12-31-2023 07:25-0400 Diastolic blood pressure 80 mm[Hg] DO Peter Ahumada Work Phone: [facility] 12-31-2023 07:25-0400 Heart rate 65 /min DO Peter Shens Work Phone: [facility] 12-31-2023 07:25-0400 Respiratory rate 16 /min DO Peter Shens Work Phone: [facility] 12-31-2023 07:25-0400 SaO2% (BldA) [Mass fraction] 97 % DO Peter Shens Work Phone: [facility] 12-31-2023 07:25-0400 Systolic blood pressure 118 mm[Hg] DO Peter Kuns Work Phone: [facility] 12-27-2023 14:20-0400 Body height 182.88 cm DO Peter Kuns Work Phone: [facility] 12-27-2023 14:20-0400 Body mass index (BMI) [Ratio] 37.3 kg/m2 DO Peter Kuns Work Phone: [facility] 12-27-2023 14:20-0400 Body weight 124.73 kg DO Peter Kuns Work Phone: [facility] 12-27-2023 14:20-0400 Diastolic blood pressure 70 mm[Hg] DO Peter Kuns Work Phone: [facility] 12-27-2023 14:20-0400 Heart rate 86 /min DO Peter Kuns Work Phone: [facility] 12-27-2023 14:20-0400 Respiratory rate 16 /min DO Peter Kuns Work Phone: [facility] 12-27-2023 14:20-0400 SaO2% (BldA) [Mass fraction] 96 % DO Peter Acs Work Phone: [facility] 12-27-2023 14:20-0400 Systolic blood pressure 116 mm[Hg] DO Peter Kuns Work Phone: [facility] 12-17-2023 07:31-0400 Body height 182.88 cm DO Peter Kuns Work Phone: [facility] 12-17-2023 07:31-0400 Body temperature 97.7 [degF] DO Peter Kuns Work Phone: [facility] 12-17-2023 07:31-0400 Body weight 123.9 kg DO Peter Kuns Work Phone: [facility] 12-17-2023 07:31-0400 Diastolic blood pressure 90 mm[Hg] DO Peter Ahumada Work Phone: [facility] 12-17-2023 07:31-0400 Heart rate 88 /min DO Peter Ahumada Work Phone: [facility] 12-17-2023 07:31-0400 Respiratory rate 20 /min DO Peter Ahumada Work Phone: [facility] 12-17-2023 07:31-0400 SaO2% (BldA) [Mass fraction] 97 % DO Peter Ahumada Work Phone: [facility] 12-17-2023 07:31-0400 Systolic blood pressure 143 mm[Hg] DO Peter Ahumada Work Phone: [facility] 06-08-2023 10:30-0500 Body height 182.88 cm Peter Shenshira Other [employer] Other 06-08-2023 10:30-0500 Body mass index (BMI) [Ratio] 34.91 kg/m2 Peter Shenshira Other [employer] Other 06-08-2023 10:30-0500 Body weight 116.76 kg Peter Blake Other [employer] Other 06-08-2023 10:30-0500 Diastolic blood pressure 82 mm[Hg] Peter Shenshira Other [employer] Other 06-08-2023 10:30-0500 Respiratory rate 16 /min Peter Blake Other [employer] Other 06-08-2023 10:30-0500 SaO2% (BldA) [Mass fraction] 98 % Peter Acshira Other [employer] Other 06-08-2023 10:30-0500 Systolic blood pressure 126 mm[Hg] Peter Ahumada Other [employer] Other 05-24-2023 15:00-0400 Body height 182.88 cm Peter Ahumada Other [employer] Other 05-24-2023 15:00-0400 Body mass index (BMI) [Ratio] 35.12 kg/m2 Peter Ahumada Other [employer] Other 05-24-2023 15:00-0400 Body weight 117.48 kg Peter Ahumada Other [employer] Other 05-24-2023 15:00-0400 Diastolic blood pressure 86 mm[Hg] Peter Ahumada Other [employer] Other 05-24-2023 15:00-0400 Respiratory rate 16 /min Peter Ahumada Other [employer] Other 05-24-2023 15:00-0400 SaO2% (BldA) [Mass fraction] 95 % Peter Ahumada Other [employer] Other 05-24-2023 15:00-0400 Systolic blood pressure 130 mm[Hg] Peter Ahumada Other [employer] Other 03-21-2023 08:30-0400 Body height 182.88 cm Peter Ahumada Other [employer] Other 03-21-2023 08:30-0400 Body mass index (BMI) [Ratio] 34.39 kg/m2 Peter Ahumada Other [employer] Other 03-21-2023 08:30-0400 Body weight 115.03 kg Peter Ahumada Other [employer] Other 03-21-2023 08:30-0400 Diastolic blood pressure 70 mm[Hg] Peter Ahumada Other [employer] Other 03-21-2023 08:30-0400 Respiratory rate 16 /min Peter Ahumada Other [employer] Other 03-21-2023 08:30-0400 SaO2% (BldA) [Mass fraction] 95 % Peter Ahumada Other [employer] Other 03-21-2023 08:30-0400 Systolic blood pressure 124 mm[Hg] Peter Ahumada Other [employer] Other 11-01-2022 13:49-0400 Diastolic blood pressure 90 mm[Hg] DO Peter Acs Work Phone: [facility] 11-01-2022 13:49-0400 Systolic blood pressure 153 mm[Hg] DO Peter Acs Work Phone: [facility] 11-01-2022 13:02-0400 Body temperature 97.6 [degF] DO Peter Kuns Work Phone: [facility] 11-01-2022 13:02-0400 Heart rate 72 /min DO Peter Kuns Work Phone: [facility] 11-01-2022 13:02-0400 Respiratory rate 18 /min DO Peter Kuns Work Phone: [facility] 11-01-2022 13:02-0400 SaO2% (BldA) [Mass fraction] 96 % DO Peter Ahumada Work Phone: [facility] 11-01-2022 08:58-0400 Body height 182.88 cm DO Peter Ahumada Work Phone: [facility] 11-01-2022 08:58-0400 Body weight 117.93 kg DO Peter Ahumada Work Phone: [facility] 05-25-2022 17:00-0400 Body height 182.88 cm Peter Ahumada Other [employer] [facility] [employer] Other 05-25-2022 17:00-0400 Body mass index (BMI) [Ratio] 33.63 kg/m2 Peter Ahumada Other [employer] Other 05-25-2022 17:00-0400 Body weight 112.49 kg Peter Ahumada Other [employer] Other 05-25-2022 17:00-0400 Diastolic blood pressure 74 mm[Hg] Peter Shenshira Other [employer] Other 05-25-2022 17:00-0400 Respiratory rate 16 /min Peter Ahumada Other [employer] Other 05-25-2022 17:00-0400 SaO2% (BldA) [Mass fraction] Peter Ahumada Other [employer] Other 05-25-2022 17:00-0400 Systolic blood pressure 118 mm[Hg] Peterluiza Shenshira Other [employer] Other 04-24-2022 09:15-0400 Body height 182.88 cm Peter Shenshira Other [employer] Other 04-24-2022 09:15-0400 Body mass index (BMI) [Ratio] 33.5 kg/m2 Peterluiza Shenshira Other [employer] Other 04-24-2022 09:15-0400 Body weight 112.04 kg Peter Ahumada Other [employer] Other 04-24-2022 09:15-0400 Diastolic blood pressure 78 mm[Hg] Peter Ahumada Other [employer] Other 04-24-2022 09:15-0400 Respiratory rate 18 /min Peter Ahumada Other [employer] Other 04-24-2022 09:15-0400 SaO2% (BldA) [Mass fraction] 96 % Peter Ahumada Other [employer] Other 04-24-2022 09:15-0400 Systolic blood pressure 124 mm[Hg] Peter Ahumada Other [employer] Other 11-02-2021 12:00-0400 Body height 182.88 cm Peter Ahumada Other [employer] Other 11-02-2021 12:00-0400 Body mass index (BMI) [Ratio] 34.44 kg/m2 Peter Ahumada Other [employer] Other 11-02-2021 12:00-0400 Body weight 115.21 kg Peter Ahumada Other [employer] Other 11-02-2021 12:00-0400 Diastolic blood pressure 66 mm[Hg] Peter Ahumada Other [employer] Other 11-02-2021 12:00-0400 Respiratory rate 16 /min Peter Ahumada Other [employer] Other 11-02-2021 12:00-0400 SaO2% (BldA) [Mass fraction] 97 % Peter Ahumada Other [employer] Other 11-02-2021 12:00-0400 Systolic blood pressure 124 mm[Hg] Peter Ahumada Other [employer] Other 10-17-2021 09:15-0400 Body height 182.88 cm Peter Ahumada Other [employer] Other 10-17-2021 09:15-0400 Body mass index (BMI) [Ratio] 34.2 kg/m2 Peter Ahumada Other [employer] Other 10-17-2021 09:15-0400 Body weight 114.4 kg Peter Ahumada Other [employer] Other 10-17-2021 09:15-0400 Diastolic blood pressure 76 mm[Hg] Peter Ahumada Other [employer] Other 10-17-2021 09:15-0400 Respiratory rate 18 /min Peter Ahumada Other [employer] Other 10-17-2021 09:15-0400 SaO2% (BldA) [Mass fraction] 98 % Peter Ahumada Other [employer] Other 10-17-2021 09:15-0400 Systolic blood pressure 118 mm[Hg] Peter Ahumada Other [employer] Other 10-13-2021 13:28-0400 Body height 182.9 cm [...] Body height 182.88 cm Peter Ahumada Other [employer] Other 04-20-2021 08:45-0400 Body mass index (BMI) [Ratio] 31.87 kg/m2 Peter Ahumada Other [employer] Other 04-20-2021 08:45-0400 Body weight 106.6 kg Peter Ahumada Other [employer] Other 04-20-2021 08:45-0400 Diastolic blood pressure 74 mm[Hg] Peter Ahumada Other [employer] Other 04-20-2021 08:45-0400 Respiratory rate 18 /min Peter Ahumada Other [employer] Other 04-20-2021 08:45-0400 SaO2% (BldA) [Mass fraction] 96 % Peter Ahumada Other [employer] Other 04-20-2021 08:45-0400 Systolic blood pressure 110 mm[Hg] Peter Ahumada Other [employer] Other Encounters Encounter Date Encounter Type Care Provider Facility Start: 03-16-2025 End: 03-16-2025 ambulatory Christos Manrique MD Facility: [facility] Start: 03-02-2025 End: 03-02-2025 ambulatory Christos Manrique MD Facility: [facility] Start: 01-27-2025 End: 01-27-2025 Patient encounter procedure [facility] Work Phone: Start: 01-27-2025 End: 01-27-2025 ambulatory Peter Ahumada DO Work Phone: [facility] Work Phone: Start: 01-26-2025 End: 01-26-2025 ambulatory Christos Manrique MD Facility:[facility] Start: 12-08-2024 End: 12-08-2024 Patient encounter procedure Peter Liz DO -[facility] [place] Work Phone: Start: 12-08-2024 End: 12-08-2024 ambulatory Christos Manrique MD Facility: [facility] Start: 12-05-2024 End: 12-05-2024 Patient encounter procedure Peter Liz DO -[facility] Work Phone: Start: 12-05-2024 End: 12-05-2024 ambulatory Peter Ahumada Facility:[facility] Start: 10-13-2024 End: 10-13-2024 Postop follow up visit related to original px Alber H Itzkowitz DO Work Phone: [facility] Comment on above: Sebaceous cyst (Prim arvin Dx) Start: 10-13-2024 End: 10-13-2024 ambulatory ALBER H ITZKOWITZ Not Available Start: 09-29-2024 End: 09-29-2024 ambulatory Peter Ahumada DO Work Phone: [facility] Work Phone: Start: 09-29-2024 End: 09-29-2024 Departed Referred Peter Ahumada DO Work Phone: [facility] Work Phone: Start: 09-22-2024 End: 09-22-2024 ambulatory Christos Manrique MD Facility:[facility] Start: 09-10-2024 End: 09-10-2024 Office outpatient visit 15 minutes Alber H Itzkowitz DO Work Phone: [facility] [employer] Comment on above: Sebaceous cyst (Prim arvin Dx) Start: 09-10-2024 End: 09-10-2024 ambulatory ALBER H ITZKOWITZ Not Available Start: 09-09-2024 End: 09-09-2024 ambulatory Peter Ahumada DO Work Phone: [facility] Work Phone: Start: 09-09-2024 End: 09-09-2024 Patient encounter procedure Peter Ahumada DO Work Phone: [facility] [place] Work Phone: Start: 09-01-2024 End: 09-01-2024 ambulatory Christos Manrique MD Facility:[facility] Start: 07-17-2024 End: 07-17-2024 ambulatory Robert Martinez Facility:[facility] Start: 07-17-2024 End: 07-17-2024 Discharged Recurring Peter Ahumada DO Work Phone: [facility] [place] Work Phone: Start: 06-23-2024 End: 06-23-2024 ambulatory Christos Mnarique MD Facility[facility] Start: 06-10-2024 End: 06-10-2024 ambulatory Peter Ahumada DO Work Phone: [facility] Work Phone: Start: 06-10-2024 End: 06-10-2024 Patient encounter procedure Peter Ahumada DO Work Phone: [facility] [place] Work Phone: Start: 06-04-2024 End: 06-04-2024 Patient encounter procedure Peter Ahumada DO Work Phone: [facility] Work Phone: Start: 06-04-2024 End: 06-04-2024 ambulatory Peter Ahumada DO Work Phone: [facility] Work Phone: Start: 05-22-2024 End: 05-22-2024 Patient encounter procedure Rahul Castillo DO Work Phone: [facility] Comment on above: Lumbosacral radiculo yaritza (Primary Dx) Start: 05-22-2024 End: 05-22-2024 ambulatory RAHUL CASTILLO Not Available Start: 05-22-2024 End: 05-22-2024 Bamboo flowsheet Rahul Castillo DO Work Phone: [facility] Start: 05-22-2024 End: 05-22-2024 Bamboo flowsheet Rahul Castillo DO Work Phone: [facility] Start: 05-19-2024 End: 05-19-2024 ambulatory DO Peter Ahumada Work Phone: [facility] Work Phone: Start: 05-19-2024 End: 05-19-2024 Discharged Recurring DO Peter Ahumada Work Phone: [facility] [place] Work Phone: Start: 03-12-2024 End: 03-12-2024 Patient encounter procedure DO Peter Ahumada Work Phone: [facility]-Ul[facility] Work Phone: Start: 03-12-2024 End: 03-12-2024 ambulatory DO Peter Ahumada Work Phone: [facility] Work Phone: Start: 03-06-2024 End: 03-06-2024 ambulatory DO Peter Ahumada Work Phone: [facility] Work Phone: Start: 03-06-2024 End: 03-06-2024 Patient encounter procedure DO Peter Ahumada Work Phone: [facility] [place] Work Phone: Start: 03-05-2024 End: 03-05-2024 Patient encounter procedure DO Peter Ahumada Work Phone: [facility] [place] Work Phone: Start: 03-05-2024 End: 03-05-2024 ambulatory DO Peter Ahumada Work Phone: [facility] Work Phone: Start: 02-28-2024 End: 02-28-2024 ambulatory ALBER HAINES Not Available Start: 02-13-2024 End: 02-13-2024 ambulatory DO Peter Ahumada Work Phone: [facility] Work Phone: Start: 02-13-2024 End: 02-13-2024 Patient encounter procedure DO Peter Ahumada Work Phone: [facility] Work Phone: Start: 02-13-2024 End: 02-13-2024 Patient encounter procedure DO Peter Ahumada Work Phone: [facility] Start: 02-13-2024 End: 02-13-2024 ambulatory DO Peter Ahumada Work Phone: [facility] Work Phone: Start: 02-07-2024 End: 02-07-2024 ambulatory ALBER Judd YANCY Not Available Start: 01-29-2024 End: 01-29-2024 Admission to same day surgery center DO Peter Ahumada Work Phone: [facility]gery [facility] Start: 01-29-2024 End: 01-29-2024 ambulatory DO Peter Ahumada Work Phone: [facility] Work Phone: Start: 01-15-2024 End: 01-15-2024 ambulatory DO Peter Ahumada Work Phone: [facility] Work Phone: Start: 01-15-2024 End: 01-15-2024 Departed Referred DO Peter Ahumada Work Phone: [facility] Work Phone: Start: 01-15-2024 End: 01-15-2024 Patient encounter procedure DO Peter Ahumada Work Phone: [facility] Work Phone: Start: 01-14-2024 End: 01-14-2024 ambulatory DO Peter Ahumada Work Phone: [facility] Work Phone: Start: 01-14-2024 End: 01-14-2024 Patient encounter procedure DO Peter Ahumada Work Phone: [facility] Work Phone: Start: 01-14-2024 End: 01-14-2024 ambulatory DO Peter Ahumada Work Phone: [facility] Work Phone: Start: 01-14-2024 End: 01-14-2024 Patient encounter procedure DO Peter Ahumada Work Phone: [facility] Start: 01-03-2024 End: 01-03-2024 ambulatory ALBER HAINES Not Available Start: 12-31-2023 End: 12-31-2023 ambulatory DO Peter Ahumada Work Phone: [facility] Work Phone: Start: 12-31-2023 End: 12-31-2023 Patient encounter procedure DO Peter Ahumada Work Phone: [facility] Work Phone: Start: 12-31-2023 End: 12-31-2023 ambulatory DO Peter Ahumada Work Phone: [facility] Work Phone: Start: 12-31-2023 End: 12-31-2023 Patient encounter procedure DO Peter Ahumada Work Phone: [facility] Work Phone: Start: 12-31-2023 End: 12-31-2023 ambulatory DO Peter Ahumada Work Phone: [facility] Work Phone: Start: 12-31-2023 End: 12-31-2023 Patient encounter procedure DO Peter Shens Work Phone: [facility] [place] Work Phone: Start: 12-28-2023 End: 12-28-2023 ambulatory DO Peter Ahumada Work Phone: [facility] Work Phone: Start: 12-28-2023 End: 12-28-2023 Patient encounter procedure DO Peter Ahumada Work Phone: [facility] Work Phone: Start: 12-27-2023 End: 12-27-2023 ambulatory DO Peter Ahumada Work Phone: [facility] Work Phone: Start: 12-27-2023 End: 12-27-2023 Patient encounter procedure DO Peter Ahumada Work Phone: [facility] [place] Work Phone: Start: 12-19-2023 Non-patient / Non-visit DO Terry Ahumada Work Phone: [facility] [place] Work Phone: Start: 12-17-2023 End: 12-17-2023 Emergency department patient visit DO Peter Ahumada Work Phone: [facility]-Emergency Room Work Phone: Start: 12-12-2023 End: 12-12-2023 ambulatory ALBER HAINES Not Available Start: 12-03-2023 End: 12-03-2023 ambulatory DO Peter Ahumada Work Phone: [facility] Work Phone: Start: 12-03-2023 End: 12-03-2023 Patient encounter procedure DO Peter Ahumada Work Phone: [facility] Work Phone: Start: 08-27-2023 End: 08-27-2023 ambulatory Peter Ahumada Other [employer] Other Start: 08-27-2023 Telephone encounter Peter Blake [facility] [place] Start: 08-22-2023 End: 08-22-2023 ambulatory DO Peter Ahumaad Work Phone: [facility] Work Phone: Start: 08-22-2023 End: 08-22-2023 Patient encounter procedure DO Peter Ahumada Work Phone: [facility] [place] Work Phone: Start: 08-20-2023 End: 08-20-2023 ambulatory Peter Acshira Other [employer] Other Start: 08-20-2023 Telephone encounter Peter Ahumada [facility] [place] Start: 08-13-2023 Telephone encounter Peter Blake [facility] [place] Start: 08-13-2023 End: 08-13-2023 ambulatory DO Peter Ahumada Work Phone: [employer] Other Start: 08-13-2023 End: 08-13-2023 Patient encounter procedure DO Peter Ahumada Work Phone: [facility] Work Phone: Start: 08-06-2023 End: 08-06-2023 ambulatory Peter Acshira Other [employer] Other Start: 08-06-2023 Telephone encounter Peter Ahumada [facility] [place] Start: 06-11-2023 End: 06-11-2023 ambulatory Peter Ahumada Other [employer] Other Start: 06-11-2023 Telephone encounter Peter Ahumada [facility] [place] Start: 06-08-2023 Office outpatient vi sit 25 minutes Peter Ahumada [facility] [place] Start: 06-08-2023 End: 06-08-2023 ambulatory DO Peter Ahumada Work Phone: [facility] Work Phone: Start: 06-08-2023 End: 06-08-2023 Patient encounter procedure DO Peter Ahumada Work Phone: [facility] Work Phone: Start: 06-08-2023 End: 06-08-2023 Patient encounter procedure DO Peter Ahumada Work Phone: [facility] Work [facility] Start: 05-25-2023 End: 05-25-2023 Patient encounter procedure DO Peter Ahumada Work Phone: [facility] Work Phone: Start: 05-24-2023 End: 05-24-2023 ambulatory Peter Ahumada Other [employer] Other Start: 05-24-2023 Office outpatient vi sit 25 minutes [facility] Start: 05-24-2023 End: 05-24-2023 Patient encounter procedure DO Peter Ahumada Work Phone: [facility] [place] Work Phone: Start: 03-21-2023 End: 03-21-2023 ambulatory Peter Ahumada Other [employer] Other Start: 03-21-2023 Office outpatient vi sit 15 minutes Peter Ahumada [facility] Start: 03-19-2023 End: 03-19-2023 ambulatory DO Peter Ahumada Work Phone: [facility] Work Phone: Start: 03-19-2023 End: 03-19-2023 Patient encounter procedure DO Peter Ahumada Work Phone: [facility] [place] Work Phone: Start: 01-15-2023 End: 01-15-2023 ambulatory DO Peter Ahumada Work Phone: [facility] Work Phone: Start: 01-15-2023 End: 01-15-2023 Patient encounter procedure DO Peter Ahumada Work Phone: [facility] Start: 01-12-2023 End: 01-12-2023 ambulatory Peter Ahumada Other [employer] Other Start: 01-12-2023 Telephone encounter Peter Ahumada [facility] Start: 11-23-2022 End: 11-23-2022 Patient encounter procedure DO Peter Ahumada Work Phone: [facility] Work Phone: Start: 11-01-2022 End: 11-01-2022 Emergency department patient visit DO Peter Ahumada Work Phone: [facility]-Emergency Room Work Phone: Start: 10-31-2022 End: 10-31-2022 ambulatory DO Peter Ahumada Work Phone: [facility] Work Phone: Start: 10-31-2022 End: 10-31-2022 Patient encounter procedure DO Peter Ahumada Work Phone: [facility] [place] Work Phone: Start: 05-25-2022 End: 05-25-2022 Departed Referred DO Peter Ahumada Work Phone: [facility] Start: 05-25-2022 End: 05-25-2022 ambulatory DO Peter Kuns Work Phone: [employer] Other Start: 05-25-2022 Office outpatient vi sit 15 minutes Peter Ahumada [facility] [place] Start: 04-24-2022 End: 04-24-2022 ambulatory Peter Ahumada Other [employer] Other Start: 04-24-2022 Office outpatient vi sit 25 minutes Peterluiza Shens [facility] [place] Start: 04-19-2022 End: 04-19-2022 ambulatory DO Peter Ahumada Work Phone: [facility] Work Phone: Start: 04-19-2022 End: 04-19-2022 Patient encounter procedure DO Peter Ahumada Work Phone: [facility] [place] Start: 11-15-2021 End: 11-15-2021 ambulatory Peter Ahumada Other [employer] Other Start: 11-15-2021 Telephone encounter Peter Ahumada [facility] [place] Start: 11-02-2021 End: 11-02-2021 ambulatory Peter Ahumada Other [employer] Other Start: 11-02-2021 Office outpatient vi sit 15 minutes Peter [facility]um[facility] Start: 10-17-2021 End: 10-17-2021 ambulatory Peterluiza Shens Other [employer] Other Start: 10-17-2021 Office outpatient vi sit 25 minutes Peterluiza Shens [facility] [place] Start: 10-13-2021 End: 10-13-2021 Patient encounter procedure Kate Daniel MD Work Phone: General Surgery Comment on above: Liver pain (Primary Dx) Start: 04-20-2021 Office outpatient vi sit 25 minutes Peterluiza Shens [facility] [place] Start: 02-22-2021 End: 02-22-[address] PETER AHUMADA Facility:[facility] Start: 11-30-2020 End: 11-30-2020 Subsequent hospital visit by physician Carlos Baker 1 Work Phone: Radiology Comment on above: Closed nondisplaced fracture of proximal phalanx of left little finger, initial encounter [M10.092E] Start: 11-18-2020 End: 11-18-2020 Subsequent hospital visit by physician Carlos Baker 1 Work Phone: Radiology Comment on above: Closed nondisplaced fracture of proximal phalanx of left little finger, initial encounter [J11.924V] Procedures Date Procedure Procedure Detail Performing Clinician [...] EDT Procedure Visit [facility] [address] [facility] [address] [place] [id number] Rahul Castillo DO [address] [place] [id number] Arrived [facility] Comment on above: Arrived Start: 03-23-2024 Covid-19 Vaccine () Covid-19 Vaccine () [facility] Start: 03-23-2024 Influenza vaccination Influenz a Vaccine (#1) [facility] Start: 03-05-2024 [facility] Start: 02-13-2024 Plain X-ray of right elbow XR elbow RT 2V [facility] Start: 02-13-2024 XR Elbow - right 2 Views [facility] Start: 01-29-2024 [facility] Start: 01-29-2024 [facility] Start: 01-14-2024 Plain X-ray of right elbow XR elbow RT 2V [facility] Start: 01-14-2024 XR Elbow - right 2 Views [facility] Start: 12-31-2023 Patient referral [facility] Work Phone: Start: 2022 Screening for [...] Start: 2000 HEPATITIS C SCREENING HEPATITIS C [facility] Start: 2000 Hepatitis C screening Hepatitis C [facility] Start: 2000 HIV SCREENING HIV SCREENING [facility] Start: 2000 HIV screening HIV Screening [facility] Start: 1994 Adult depression scr eening assessment DEPRESSION SCREENING [facility] Start: 1987 COVID-19 VACCINE (1) COVID-19 VACCIN E (1) [facility] Comprehensive metabo lic 1999 panel - Serum or Plasma [facility] Comprehensive metabo lic 1999 panel - Serum or Plasma [facility] Comprehensive metabo lic 1999 panel - Serum or Plasma [facility] Glucose measurement estimated from glycated hemoglobin [facility] Patient Education [facility] Work Phone: Patient referral [facility] Work Phone: RF Gastrointestinal tract upper Single view W air contrast PO [facility] US Gallbladder [facility] XR Elbow - right GE 3 Views [facility] Immunizations Immunization Date Immunization Notes Care Provider Fa [facility] 12-17-2023 tetanus toxoid, reduced diphtheria toxoid, and acellular pertussis vaccine, adsorbed DO Peter Ahumada Work Phone: [facility] 06-07-2022 influenza, injectable, quadrivalent, preservative free Peter Ahumada Other [facility] 04-09-2020 influenza, seasonal, injectable Peter Ahumada Other [facility] Other 03-10-2019 influenza, seasonal, injectable Patient Objection Peter Ahumada Other [facility] Other 02-18-2018 tetanus toxoid, reduced diphtheria toxoid, and acellular pertussis vaccine, adsorbed Peter Ahumada Other [facility] NEGATED: Highlighted row has not occurred!06-07-2022 influenza, seasonal, injectable Patient Objection Peter Ahumada Other [facility] Other NEGATED: Highlighted row has not occurred!04-09-2020 influenza, seasonal, injectable Peter Ahumada Other [facility] Other NEGATED: Highlighted row has not occurred!03-10-2019 influenza, seasonal, injectable Patient Objection Peter Ahumada Other [facility] Other Payers Date Payer Category Payer Self-pay [id number] 2022 Unknown 2018 Medicaid [employer] [id number] 2018-Present [phone] [address] [place] [address] Medicaid [id number] 2018 Medicaid [employer]ICAID [id number] 2018-2022 [address] [place] [address] Medicaid [id number] 2018 Private Health Insurance [facility] MEDICAID [id number] 2018 Medicaid [id number] 1982 Unknown [id number] 2.16.840.1.339650.3.579.2 .593 1982 Unknown [id number] 2.16.840.1.576438.3.579.2 .1258 1982 Unknown [id number] 2.16.840.1.108024.3.579.2 .1258 1982 Unknown [id number] 2.16.840.1.309721.3.579.2 .1258 1982 Unknown [id number] 2.16.840.1.685996.3.579.2 .1258 1982 Unknown [id number] 2.16.840.1.134423.3.579.2 .1258 1982 Unknown [id number] 2.16.840.1.759058.3.579.2 .1258 1982 Unknown [id number] 2.16.840.1.814341.3.579.2 .1258 1982 Unknown [id number] 2.16.840.1.351748.3.579.2 .1982 Unknown [id number] 2.16.840.1.890278.3.579.2 .1982 Unknown [id number] 2.16.840.1.761266.3.579.2 .1982 Unknown [id number] 2.16.840.1.816326.3.579.2 .1982 Unknown [id number] 2.16.840.1.871592.3.579.2 .1982 Unknown [id number] 2.16.840.1.147631.3.579.2 .196 1982 Unknown [id number] 2.16.840.1.608456.3.579.2 .196 1959 Unknown [id number] Unknown [id number] Unknown [id number] 2.16.840.1.758019.3.579.2 .531 Unknown [id number] 2.16.840.1.148189.3.579.2 .531 Unknown [id number] 2.16.840.1.617782.3.579.2 .531 Unknown [id number] 2.16.840.1.378011.3.579.2 .531 Unknown [id number] 2.16.840.1.266215.3.579.2 .531 Unknown [id number] 2.16.840.1.172228.3.579.2 .531 Unknown [id number] 2.16.840.1.332608.3.579.2 .531 Unknown [id number] 2.16.840.1.435893.3.579.2 .531 Unknown [id number] 2.16.840.1.264935.3.579.2 .531 Social History Date Type Detail Facility Start: 03-03-2021 End: 09-09-2024 Tobacco smoking status NHIS Ex-smoker [facility] [...] file [facility] Start: 06-30-2020 End: 09-10-2024 Sex Assigned At [facility] Other Start: 11-25-2015 End: 02-15-2021 Tobacco smoking status NHIS Never smoked tobacco (finding) [facility] Start: 1980 Sex Assigned At Female [facility] Start: 11-25-2015 Alcoholic beverage intake Not Asked [facility] Start: 06-30-2020 End: 09-10-2024 History of Social function [facility] National Score (1-10 0), lower number is lower risk Not on file [facility] Start: 10-19-2020 End: 11-30-2020 Exposure to SARS-CoV-2 (event) Not sure [facility] End: 06-22-2006 History of tobacco use Cigarette Smoker [facility] Start: 02-04-2024 End: 09-30-2024 Alcoholic beverage intake Ex-drinker (finding) [facility] Start: 01-25-2023 Tobacco Comment Quit smoking 10 years ago [facility] Start: 01-25-2023 Alcohol Comment caffeine 1-2 cups/day [facility] Start: 01-18-2023 Gender identity Identifies as female gender (finding) [facility] Start: 01-18-2023 Sexual orientation Heterosexual (finding) [facility] Start: 06-05-2024 End: 09-30-2024 Sex Female (finding) [facility] Medical Equipment Procedure Code Equipment Code [...] recorder, note dictated by Dr. Peter Ahumada [facility] Work Phone: 1(380) 881-643503-24-2025 History of Present illness Narrative* Alber Haines DO - 10/13/2024 1:15 PM EDT Images [...] cyst. I'll seeher PRN documented in this encounterUniversity [facility] [id number] History of Present illness Narrative* Alber Haines [...] 90 mcg/act inhaler Every 4 hours HYDROcodone-acetaminophen ([place]) 5-325 MG tablet TAKE 1 TABLET BY [...] Hospital Center02-18-2025 Evaluation note* Author Hyacinth Hutton [facility] Authored September 09, 2024 3:43pm The above note written by SIOMARA Bolden acting as human recorder, note dictated by Dr. Peter Ahumada. [facility] Work Phone: [phone]) 422-166110-31-2024 History of Present illness Narrative* CESAR Rcih - 05/22/2024 2:30 PM EDT Images from the original note were not included. Reason for Appointment: EMG Patient: Darling Khanna : 1980 EMG Computer: [employer] Referring Physician: Dr. Robert Martinez EMG: BLE knowledge analyst: Cayetano Moreno RT(R) Office Location: [place] Reason for EMG: c/o low back pain [...] Hospital Center08-15-2024 Evaluation note* Author Hyacinth Hutton [facility] Authored March 06, 2024 2: 47pm The above note written by Thuan STRINGER acting as human recorder, note dictated by Dr.Bryan Ahumada. [facility] Work Phone: [phone] 101-675801-22-2024 Evaluation note* Encounter Date Diagnosis Assessment Notes Treatment Notes Treatment Clinical Notes Jul, Abnormal mammogram of left breast (ICD-10 - R92.8) [facility] Other 01-15-2024 Evaluation note* Encounter Date Diagnosis Assessment Notes Treatment Notes Treatment Clinical Notes Jul, Abnormal mammogram (ICD-10 - R92.8) [facility] Other 11-17-2023 Evaluation note* Encounter Date Diagnosis [...] modification. May, Acute bronchitis (ICD-10 - J20.9) [facility] Other 11-02-2023 Evaluation note* Encounter Date Diagnosis [...] exercise regimen; we will continue to monitor. [facility] Other 08-30-2023 Evaluation note* Encounter Date Diagnosis [...] been ordered to use for allergic reaction. [facility] Other 06-23-2023 Evaluation note* Encounter Date Diagnosis Assessment Notes Treatment Notes Treatment Clinical Notes Dec, Mass of upper outer quadrant of left breast (ICD-10 - N63.21) [facility] Other 11-03-2022 Evaluation note* Encounter Date Diagnosis [...] sent to the lab to determine pathology. [facility] Other 10-03-2022 Evaluation note* Encounter Date Diagnosis [...] excisional biopsy. 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 [facility] Other 03-28-2022 Evaluation note* Encounter Date Diagnosis [...] eye. These will be removed with hyfrecator. [facility] Other 03-24-2022 NoteHNO ID: [id number] Author: Kate Daniel MD Service: ? Author Type: Physician Type: Progress Notes Filed: 10/17/2021 1:50 PM Note Text: Assessment ESTABLISHED PATIENT Darling Khanna is a 40 year old female with a right posterior liver subcapsular fluid collection ? 03/03/2021: Patient presented to [facility] ER on 02/08/2021 for [...] ? Received Records From:? 02/08/2021 ER Report [facility] 02/09/2021 ER Report [facility] 02/15/2021 PCP Office note ? Visited [...] gradually improving. US of ovaries yesterday at [facility]. Scheduled for upper GI at end of month. Gained?50 pounds since July?(was in [place] for 3 months, drank a lot); [...] well. She did spend 3 months in [place] and did not have any issues, [...] which included preparing to see the patient, [id number] patient care and completing clinical documentation. Kate Daniel [facility]03-24-2022 Nurse Note* Jayne Aguila Ma [...] subcapsular fluid collection 03/03/2021: Patient presented to [facility] ER on 02/08/2021 for [...] collection Received Records From: 02/08/2021 ER Report [facility] 02/09/2021 ER Report [facility] 02/15/2021 PCP Office note Visited ER [...] gradually improving. US of ovaries yesterday at [facility]. Scheduled for upper GI at end of month. Gained 50 pounds since July (was in [place] for 3 months, drank a lot); [...] well. She did spend 3 months in [place] and did not have any issues, [...] which included preparing to see the patient, [id number] patient care and completing clinical documentation. Kate [...] under 200lbs. We will continue to monitor. [facility] Other 09-16-2021 NoteHNO ID: [id number] Author: Kate Daniel MD Service: ? Author Type: Physician Type: Progress Notes Filed: 04/11/2021 3:19 PM Note Text: Assessment ESTABLISHED PATIENT Darling Khanna is a 40 year old female with a right posterior liver subcapsular fluid collection 03/03/2021: Patient presented to [facility] ER on 02/08/2021 for [...] ? Received Records From:? 02/08/2021 ER Report [facility] 02/09/2021 ER Report [facility] 02/15/2021 PCP Office note ? Visited [...] gradually improving. US of ovaries yesterday at [facility]. Scheduled for upper GI at end of month. Gained 50 pounds since July (was in [place] for 3 months, drank a lot); [...] which included preparing to see the patient, [id number] patient care and completing clinical documentation. Kate Daniel [facility]09-01-2021 NoteHNO ID: [id number] Author: William De León MD Service: ? [...] findings to suggest etiology Pre-conference plan (from [facility]): - Observation and serial imaging Imaging Review: - January 2021 - CT Abd/Pelvis and MRI Final Consensus Recommendation(s): - No clear etiology of right posterior subcapsular fluid collection - Fluid consistency is not consistent with a hematoma - No underlying masses or intrinsic liver pathology Final recommendation(s) differ from pre-conference plan? (Y/N) - No William De León MD [facility] NoteHNO ID: [id number] Author: Kate Daniel MD Service: ? Author [...] 40 year old female Patient presented to [facility] ER on 02/08/2021 for [...] ? Received Records From: 02/08/2021 ER Report [facility] 02/09/2021 ER Report [facility] 02/15/2021 PCP Office note Visited ER [...] gradually improving. US of ovaries yesterday at [facility]. Scheduled for upper GI at end of month. Gained 50 pounds since July (was in [place] for 3 months, drank a lot); [...] malignant. Seen by Dr. Haines on [facility], in [facility]; denies chemotherapy or radiation. Hernia [...] rhythm. Abdomen: Abdomen so (more content not included)...[facility] 12-28-2020 NoteHNO ID: [id number] Author: Tracey Hair Ma Service: ? Author Type: ? Type: Progress Notes Filed: 12/28/2020 4:25 PM Note Text: Dispensed XL/XXL Reaction brace for the Right knee. Dispensed by [employer]. Instructions were given on application/adjustments. She will f/u as scheduled/prn. Tracey Hair MA,[facility] 12-28-2020 NoteHNO ID: [id number] Author: Ishan Yusuf, DO Service: ? Author [...] was performed today. CLINICAL IMPRESSION / ASSESSMENT: (S62.934D) Closed nondisplaced fracture of proximal phalanx of [...] PT if not improving Procedures Ishan Yusuf, [facility]05-11-2021 NoteHNO ID: [id number] Author: Ishan Yusuf, DO Service: ? Author [...] results and radiologist's interpretation, available in the [facility] health record. Images were reviewed with the patient/family members in the office today. My personal interpretation of the performed imaging is healing proximal phalanx fracture CLINICAL IMPRESSION / ASSESSMENT: (S62.277A) Closed nondisplaced fracture of proximal phalanx of left little finger, initial encounter (primary encounter diagnosis) PLAN: Start weaning out of the splint at this time Can start OT at this time ROM as tolerated Follow-up in 3-4 weeks Procedures Ishan Yusuf, [facility]05-11-2021 NoteHNO ID: [id number] Author: RT Suzanna(R) Service: ? Author Type: Industrial Arts Teacher Type: Progress Notes Filed: 11/30/2020 3:44 PM [...] BY: RT Suzanna(R) November 30, 2020 3:43 [facility]04-29-2021 NoteHNO ID: [id number] Author: RT Victor M(R) Service: ? Author Type: Industrial Arts Teacher Type: Progress Notes Filed: 11/18/2020 3:47 PM [...] RT Victor M(R) November 18, 2020 3:45 [facility]04-29-2021 NoteHNO ID: [id number] Author: Ishan Yusuf, DO Service: ? Author [...] results and radiologist's interpretation, available in the [facility] health record. Images were reviewed with the patient/family members in the office today. My personal interpretation of the performed imaging is intra-articular proximal phalanx fracture CLINICAL IMPRESSION / ASSESSMENT: (P67.967W) Closed nondisplaced fracture of proximal phalanx of left little finger, initial encounter (primary encounter diagnosis) PLAN: Placed her in aluminum splint Will discuss case with Dr. [place] due to some progression of depression Follow-up accordingly Procedures [facility]04-15-2021 NoteHNO ID: [id number] Author: Bob Millan Service: ? Author Type: Physician Type: Progress Notes Filed: 11/04/2020 2:12 PM Note Text: [facility] Office Visit Documentation Note [facility] Sports Medicine Orthopaedic and Rheumatologic [place] REASON FOR VISIT / CHIEF COMPLAINT SERVICE [...] results and radiologist's interpretation, available in the [facility] health record. Images were reviewed with the patient/family members in the office today. My personal interpretation of the performed imaging is Has IA prox phalanx fracture at PIP ASSESSMENT / PLAN CLINICAL IMPRESSION / ASSESSMENT: (Z95.383O) Closed nondisplaced fracture of proximal phalanx of [...] D.O. [facility] [place] Team Physician, [facility] Consulting Physician, [place] Sawyer Landeros, E Merchant [phone] Patient verbalizes understanding and agrees with the treatment plan as detailed above.[facility] foundation [facility]* Diagnosis Liver pain- Primary Abdominal pain, other specified site documented in this encounter [facility] noteNo InformationNort [facility] Other Evaluation noteNo assessment information available [facility] Work Phone: Evaluation note* Diagnosis Onset Date Resolution Status Ground-level fall acute Laceration of knee, left acu te Right elbow pain acute [facility] Work Phone: Evaluation note* Diagnosis Onset Date Resolution Status Ground-level fall acute Laceration of knee, left acu te Right elbow pain acute Elbow fracture, right acute Hypothyroidism acute Laceration of knee, left acu te [facility] Work Phone: Evaluation note* Diagnosis Onset Date Resolution Status Ground-level fall acute Laceration of knee, left acu te Right elbow pain acute Elbow fracture, right acute Hypothyroidism acute Laceration of knee, left acu te Fracture of radial neck, right, closed acute [facility] Work Phone: Evaluation note* Diagnosis Onset Date Resolution Status Ground-level fall acute Laceration of knee, left acu te Right elbow pain acute Elbow fracture, right acute Hypothyroidism acute Laceration of knee, left acu te Fracture of radial neck, right, closed acute Fracture of radial neck, right, closed acute [facility] Work Phone: Evaluation note* Diagnosis Onset Date Resolution Status Ground-level fall acute Laceration of knee, left acu te Right elbow pain acute Elbow fracture, right acute Hypothyroidism acute Laceration of knee, left acu te Fracture of radial neck, right, closed acute Fracture of radial neck, right, closed acute Fracture of radial neck, right, closed acute [facility] Work Phone: Evaluation note* Author Hyacinth Hutton [facility] Authored March 06, 2024 2: 47pm The above note written by Thuan STRINGER acting as human recorder, note dictated by Dr.Bryan Ahumada. [facility] Work Phone: Evaluation note* Diagnosis Closed nondisplaced fracture of proximal phalanx of left little finger, initial encounter documented in this encounter [facility] Diagnosis Lumbosacral radiculopathy- Primary Thoracic or lumbosacral neuritis or radiculitis, unspecified documented in this encounter [facility] HealthcareEvaluation note* Diagnosis Onset Date Resolution Status Admit Date Bilateral foot pain acute Novem 2023 2:36pm Fatty liver acute May 2:36pm GERD (gastroesophageal reflu x disease) acute June 10, 2 024 2:36pm Hypothyroidism acute May 232023 2:36pm Pre-diabetes acute May 2:36pm [facility] Work Phone: Evaluation note* Author Hyacinth Hutton [facility] Authored September 09, 2024 2:43pm The above note written by SIOMARA Bolden acting as human recorder, note dictated by Dr. Peter Ahumada. 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 Medical History Inclusion cyst Surgical History jaw surgery for underbite Surgical History breast biopsy 2018 Hospitalization History see surgical [facility] Other Hospital Discharge instructions Additional Instructions Christian diet as tolerated Increase oral fluids Take the diclofenac twice a day as needed for pain and inflammation Take oxycodone every 6 hours for severe pain Follow-up with your family doctor for recheck I also gave you the number for gastroenterology Return to the ER for more severe pain high fever vomiting or any other concerns [facility] Work Phone: Hospital Discharge instructions Additional Instructions [facility]ures [facility] Work Phone: Hospital Discharge instructions Additional Instructions [...] directed for pain unless a prescription was provided.[facility] Work Phone: Reushr for referral (narrative)No reason for referral information availableFirelands [facility] Work Phone: reason for visit Narrative* Other Medical (Routine) - Closed Specialty Diagnoses / Procedures Referred By Contac t Referred To Contact Neurology Diagnoses Sciatica, left side Procedures [place] NEEDLE EMG EA EXTREMTY W/PARASPINL AREA COMPLETE [place] NERVE CONDUCTION STUDIES 9-10 STUDIES Robert Martinez MD [address] [place] [address] Phone: tel: fax: Shakeel Rios MD [address] [place] [address] Phone: tel: fax: Referral ID Status Reason Start Date Expiration Date V isits Requested Visits Authorized [id number] Closed Perform Procedure 05/13/2024 11/09/2024 1 1 [...] and content) DATE CREATED AUTHOR 02/25/2021 [facility] DATE CREATED AUTHOR AUTHOR'S ORGANIZ ATION 10/18/2021 [facility] DATE CREATED AUTHOR AUTHOR'S ORGANIZ ATION 10/14/2024 [facility] DATE CREATED AUTHOR AUTHOR'S ORGANIZ ATION 02/07/[address] [facility] DATE CREATED AUTHOR AUTHOR'S ORGANIZ ATION 03/21/2025 [facility] Source Comments (unrecognize d section and content) [...] Ahumada , DO Primary Care Provider Active Team Status: Inactive Member Role Status Dates Peter Ahumada , Primary Care Provider, Attending Provi dani Active Evaluator Relationship Specialty Start Date End Date Peter Ahumada DO [address] [place] [address] PCP - General Family Practice 11/22/15 Team Status: Inactive Member Role Status Dates Peter Ahumada DO Primary Care Provider Active Alba Marshall , INSTRUCTIONAL SYSTEMS DESIGN CONSULTANT- Emergency Provider Active Team Status: Inactive Member Role Status Dates Peter Ahumada DO Primary Care Provider Active Koki Elkins ([facility]) , UNDERCOVER OPERATOR Attending Provider Active Team Status: Inactive Member Role Status Dates Peter Ahumada DO Attending Provider Active Start: May 24, 2023 End: May 24, 2023 Team Status: Inactive Member Role Status Katarina Ahumada DO Primary Care Provide r, Attending Provider Active Start: May 25, 2023 End: May 25, 2023 Team Status: Inactive Member Role Status Katarina Ahumada DO Attending Provider Active Start: June [...] Member Role Status Dates Peter Ahumada , Primary Care Provider Active Sta rt: December [...] March 12, 2024 End: March 12, 2024 Evaluator Relationship Specialty Start Date End Date Peter Ahumada DO [address] [place], [place] [id number] PCP - General Family Medicine 11/22/15 Team Status: Inactive Member Role Status Dates Peter Ahumada DO Primary Care Provider Active Sta rt: May 19, 2024 End: May 19, 2024 Robert Martinez DPM MS Attending Provider Active Start: May 19, 2024 End: May 19, 2024 Evaluator Relationship Specialty Start Date End Date Peter Ahumada MD [address] [place] [address] PCP - General 01/25/23 Evaluator Relationship Specialty Start Date End Date Peter Ahumada MD [address] [place] [address] PCP - General 01/25/23 Team Status: [...] September 09, 2024 End: September 09, 2024 Evaluator Relationship Specialty Start Date End Date Peter Ahumada MD [address] [place] [facility] [address] PCP - General 01/25/23 Team Status: Inactive Member Role Status Dates Alber Haines DO Attending Provider Active Start: September 29, 2024 End: September 29, 2024 Evaluator Relationship Specialty Start Date End Date Peter Ahumada MD [address] [place] [address] PCP - General 01/25/23 Team Status: Inactive [...] BE BASED ON THE PRIMARY CLINICAL RECORDS. [facility] [employer] provides no warranty or guarantee of the accuracy or completeness of information in this document.
--- NOTE | 2025-03-25 08:33 | P.CN_ITS ---
Consult Note: HPI Data of Consult Patient: known to practice within the last 3 years Consult date: 03/25/25 Requesting Physician: Anastasiya Thomas NP Primary Care Provider: Peter Lozano DO Consult Narrative Reason for consult: low back pain Narrative: 44yof who presents for evaluation. increasing low back pain. pt has failed to benefit from > 6 weeks of PT and provider guided HEP, heat, ice, tylenol and nsaids. utilizing baclofen and meloxicam PRN, without side effects. today pain 1-2/10 increasing to 8/10 with standing, walking, sitting, lifting, bending. recently underwent lumbar MRI with results below. recently underwent bilateral L4-5 L5-S1 MBB #1 and #2 with >80% improvement in pain and functional ability wh ile anestehtized, preop pain up to 8/10 post op pain 0/10. cc:: CC: Anastasiya Thomas NP [facility] Medical History Simple cyst of breast ?N60.09 - Solitary cyst of unspecified breast (ICD-10) Sebaceous cyst ?L72.3 - Sebaceous cyst (ICD-10) Low back pain ?M54.50 - Low back pain, unspecified (ICD-10) Hypothyroid ?E03.9 - Hypothyroidism, unspecified (ICD-10) Asthma ?J45.909 - Unspecified asthma, uncomplicated (ICD-10) Surgical History S/P hernia repair ?Z98.890 - Other specified postprocedural states (ICD-10) ?Z87.19 - Personal history of other diseases of the digestive system (ICD-10) History of mandibular surgery ?Z98.890 - Other specified postprocedural states (ICD-10) Meds Home Medications and Allergies Home Medications ?Medication ?Instructions ?Recorded ?Confirmed ?Type esomeprazole magnesium 40 mg 40 mg PO DAILY 06/23/24 0 03/16/25 History capsule,delayed release esteban control 06/23/24 History multivitamin-ferrous 1 tab PO DAILY 06/23/24/12/14 History fumarate-folic acid 18 mg-400 mcg tablet (Centrum Women) wt-dx-jvwozv 68 mcg DFE-caff 95 ea PO 06/23/24 Histor y jn-pyzl-udcik-tea oral effer pwdr pack (ATP Ignite) albuterol sulfate 90 mcg/actuation 2 puff inhalation P RN shortness of 09/01/24 History aerosol inhaler breath or wheezing baclofen 10 mg tablet 10 mg PO BID PRN muscle spas m #60 09/11/24 03/16/25 Rx tabs meloxicam 7.5 mg tablet 7.5 mg PO BID PRN pain #60 t abs 09/11/24 03/16/25 Rx diazepam 10 mg tablet (Valium) 10 mg PO Q8H PRN sedati on 12/08/24 03/16/25 History hydrocodone 5 mg-acetaminophen 325 1 tab PO QID PRN pa in #28 tabs 12/17/24 03/16/25 Rx mg tablet Allergies Allergy/AdvReac Type Severity Reaction Status Date / Time benzonatate AdvReac Mild Diarrhea Verified 03/16/25 11:53 indomethacin AdvReac Mild swelling Verified 03/16/25 11:53 Exam Constitutional Documenting provider has reviewed patient's vital signs: yes Common normals: no apparent distress, oriented x3, healthy appearing, alert and well nourished General appearance: cooperative HENMT Common normals: normocephalic, hearing grossly normal bilaterally and moist oral mucous membranes Head and scalp: normocephalic Eye Common normals: PERRL Pupil: PERRL Neck & C-Spine Common normals: full ROM General: normal visual inspection Chest Common normals: inspection of chest normal Respiratory Common normals: normal respiratory effort, no retractions and no use of accessory muscles Back & Pelvis Lumbar spine/lower back: ROM limited, pain with ROM, lumbar spinal tenderness and straight leg raise negative bilaterally Other: positive facet loading strength 5/5 in BLE sensation intact BLE Extremity Common normals: normal to inspection and full ROM Neuro Common normals: oriented x3 Sensorium/orientation: alert Gait (neuro): normal gait Psych Common normals: mental status grossly normal, thought process normal, cooperative, affect normal, speech normal and activity/motor behavior normal Speech: normal speech Thought process: normal thought process Results Additional Findings Additional findings: If on a controlled substance or opioids, I have checked an [place]AR[place] report on this patient and there are no aberrancies noted in the prescribing history.??If on a controlled substance or opioid a drug screen was completed and reviewed within the last year, and if there has not been a drug screen completed we ordered one today to monitor higher risk, state monitored pain medication use. As part of providing excellent, safe, comprehensive care, the following was completed at our patient's visit: 1. A medication reconciliation and review to ensure accurate knowledge of current/active medications, including asking our patients to inform us about any lcwt-pxw-viunhmv medications or herbal remedies/nutritional supplements/alternative remedies. 2. A review to specifically ensure our patients have had annual screening for screening for depression, screening for tobacco use, and screening for unhealthy alcohol use. For concerning screenings had a discussion with the patient, provided patient education, and recommended follow-up with primary care provider when appropriate. If patient noted with a risk of falling, they received education on strength, gait, and balance training to prevent future risk of fa lling. Portions of this note may have been carried over from the previous visit and updated as appropriate. Please note this office utilizes paper charting in addition to the electronic medical record. A list of current medications, vitals, and PMH is available there as the clinical staff outside of myself do not have access to [employer] charting during the clinic day operations. As part of providing quality comprehensive care the current medications, vitals, and PMH were reviewed in the paper chart. Assessment and Plan Assessment and Plan (1) Lumbar spondylosis: Assessment and Plan: The patient has had over 3 months of moderate to severe low back pain with functional impairment and inadequate response to conservative care including NSAIDS (unless there are contraindication such as concurrent blood thinners), multiple oral or topical pain medications, and home exercise program/physical therapy.? Patient has completed >6 weeks of guided home exercise program and/or formal physical therapy program without relief of their symptoms.? The Oswestry Disability Index was completed, and the patient scored a 4%.? The patient noted the following:?? moderate to severe pain We discussed the risks and benefits of the procedure with the patient, and we are NOT planning on using sedation as outlined in the guidelines from Medicare unless there is a documented reason that sedation would be strongly recommended.?? ?The procedure will be completed with fluoroscopic guidance.? Plan proceed with bilateral L4-5 L5-S1 facet medial branch RFA for axial facet mediated low back pain continue current medications continue HEP as tolerated f/u 1 month after RFA
== END 2025-03-25 08:00 | disposition home or self-care (01) ==
LOC: PM 08:00
PROVIDERS: PCP Family Medicine; Visit Provider Nurse Practitioner
DX: M47.816 Spondylosis without myelopathy or radiculopathy, lumbar region (principal)
CPT/HCPCS: G0463

== ENCOUNTER 2025-04-27 08:25 | Day surgery (SDC) | payer OTHER, SELFPAY ==
--- OUTSIDE RECORDS SUMMARY | 2024-07-24 10:48 | XMS_ITS | Continuity of Care Document ---
Author Organization 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 ([place], [place]), [address] [place] [address], [id number] , [place] tel:[phone] [facility] ([place] [place]) No Information 5 [facility] [address] [place] [address], [id number], [place]. tel:[phone] PREV VISIT, EST, AGE 40-66 [facility] ([place], [place]), [address], [place], [id number] , [place] tel:[phone] [facility] ([place], [place]) annual exam (chief complaint) Encounter for gynecological examination (general) (routine) without abnormal findingsBody mass index [BMI] 31.0-31.9, adultEncounter for screening mammogram for Ca of breastOCP follow up Rx 4 [facility] Koki. [address], [place], [id number], [place]. tel:[phone] PREV VISIT, EST, AGE 40-66 [facility] ([place], [place]), [address], [place], [id number] , [place] tel: [phone] [facility] ([place], [place]) annual exam (chief complaint) Encounter for gynecological examination (general) (routine) without abnormal findingsEncounte r for STD screening- STD High risk heterosexual behaviorOCP follow up RxBody mass index [BMI] 34.0-34.9, adult 3 [facility]. [address], [place], [id number], [place]. tel:[phone] OFFICE/OUTPA TIENT VISIT, EST [facility] ([place], [place]), [address], [place], [id number] , [place] tel: [phone] [facility] ([place], [place]) Ovarian cyst (chief complaint) Right ovarian cystFamily history of uterine cancerEncounter for screening mammogram for Ca of breastBody mass index [BMI] 36.0-36.9, adult 3 [facility]. [address], [place], [id number], [place]. tel:[phone] PREV VISIT, EST, AGE 40-66 [facility] ([place], [place]), [address], [place], [id number] , [place] tel:[phone] [facility] ([place], [place]) annual exam (chief complaint) Encounter for gynecological examination (general) (routine) without abnormal findingsBody mass index [BMI] 33.0-33.9, adultEncounter for STD screeningOther problem related to lifestyleOCP follow up RxEncounter for screening mammogram for Ca of breast 2 [facility]. [address], [place], [id number], [place]. tel:[phone] PREV VISIT, EST, AGE [age] [facility] ([place], [place]), [address], [place], [id number] , [place] tel: [phone] [facility] ([place], [place]) annual exam (chief complaint) Encounter for gynecological examination (general) (routine) without abnormal findingsBody mass index [BMI] 37.0-37.9, adultPelvic pain in femaleEncounter for screening mammogram for Ca of breastOCP follow up Rx 1 [facility]. [address], [place], [id number], [place]. tel:[phone] [facility] ([place], [place]), [address] [place] [address], [id number] , [place] tel: [phone] [facility] ([place], [place]) Abnormal Mammogram 0 [facility]. [address], [place], [id number], [place]. tel:[phone] PREV VISIT, EST, AGE 18-41 [facility] ([place], [place]), [address], [place], [id number] , [place] tel: [phone] [facility] ([place], [place]) annual exam (chief complaint) Encntr for case reviewer exam (general) (routine) w/o abn findingsFibrocys tic disease of breastEncounter for STD screeningOther problem related to lifestyleBody mass index (BMI) 29.0-29.9, adultUrine test negative 0 [facility]. [address], [place], [id number], [place]. tel:[phone] [facility] ([place], [place]), [address] [place] [address], [id number] , [place] tel: [phone] [facility] ([place], [place]) Abnormal Mammogram 0 [facility]. [address], [place], [id number], [place]. tel:[phone] [facility] ([place], [place]), [address] [place] [address], [id number] , [place] tel: [phone] [facility] ([place], [place]) Abnormal Mammogram 9 [facility]. [address], [place], [id number], [place]. tel:[phone] OFFICE/OUTPA TIENT VISIT, EST [facility] ([place], [place]), [address], [place], [id number] , [place] tel: [phone] [facility] ([place], [place]) abnormal pap smear (chief complaint) Body mass index (BMI) 29.0-29.9, adultCyst of right breastFibrocysti c disease of breastAtypical squamous cells of undetermined significance on cytologic smear of cervix (ASC-US) 9 [facility]. [address], [place], [id number], [place]. tel:[phone] PREV VISIT, EST, AGE 18-41 [facility] ([place], [place]), [address], [place], [id number] , [place] tel: [phone] [facility] ([place], [place]) annual exam (chief complaint) Encntr for case reviewer exam (general) (routine) w/o abn findingsOther problem related to lifestyleEncount er for STD screeningBody mass index (BMI) 28.0-28.9, adult 8 [facility]. [address], [place], [id number], [place]. tel:[phone] [facility] ([place], [place]), [address], [place], [id number] , [place] tel: [phone] [facility] ([place], [place]) Cyst of right breast 8 [facility]. [address], [place], [id number], [place]. tel:[phone] [facility] ([place], [place]), [address], [place], [id number] , [place] tel: [phone] [facility] ([place], [place]) Cyst of right breast 8 [facility]. [address], [place], [id number], [place]. tel:[phone] OFFICE/OUTPA TIENT VISIT, [facility], [address], [place], [id number] , [place] tel: [phone] [facility] ([place], [place]) abnormal pap smear (chief complaint) Body mass index (BMI) 28.0-28.9, adultCIN 2OCP follow up Rx 8 [facility]. [address], [place], [id number], [place]. tel:[phone] [facility] ([place], [place]), [address], [place], [id number] , [place] tel: [phone] [facility] ([place], [place]) Fibrocystic disease of breast 8 [facility]. [address], [place], [id number], [place]. tel:[phone] OFFICE/OUTPA TIENT VISIT, [facility], [address], [place], [id number] , [place] tel: [phone] [facility] ([place], [place]) Leep follow up (chief complaint) Unspecified lump in unspecified breastCIN 2 7 Ty Morris. [address], [place], [id number], [place]. tel:[phone] [facility] ([place], [place]), [address], [place], [address] , [place] tel: [phone] [facility] ([place], [place]) Leep (chief complaint) PEG 2 7 Visci DO Mack. [address], [place], [id number], [place]. tel:[phone] OFFICE/OUTPA TIENT VISIT, [facility], [address], [place], [id number] , [place] tel: [phone] [facility] ([place], [place]) Colpo (chief complaint) Atypical squamous cells of undetermined significance on cytologic smear of cervix (ASC-US)Cervical high risk HPV DNA test positive 7 Visci DO Frederick. [address], [place], [id number], [place]. tel:[phone] OFFICE/OUTPA TIENT VISIT, EST [facility] ([place], [place]), [address], [place], [id number] , [place] tel: [phone] [facility] ([place]) contraception (chief complaint) contraceptive management 7 [facility]. [address], [place], [id number], [place]. tel:[phone] OFFICE/OUTPA TIENT VISIT, EST [facility] ([place], [place]), [address], [place], [id number] , [place] tel: [phone] [facility] ([place], [place]) vaginal discharge/itch ing (chief complaint) Vulvovaginitis [facility] K[facility]. [address], [place], [address], [place]. tel:[phone] PREV VISIT, EST, AGE [age] [facility] ([place], [place]), [address], [place], [id number] , [place] tel: [phone] [facility] ([place], [place]) annual exam (chief complaint) - well woman with abnormal findingDysmenorr heaEncounter for STD screeningOther problem related to lifestylecontrac eptive managementEncntr for case reviewer exam (general) (routine) w/o abn findingsUmbilica l hernia without obstruction and without gangrene [facility] K[facility]. [address], [place], [id number], [place]. tel:[phone] PREV VISIT, EST, AGE [age] [facility] ([place], [place]), [address], [place], [id number] , [place] tel: [phone] [facility] ([place], [place]) Update (chief complaint)robin al exam (chief complaint)cont raception (chief complaint) Encounter for general case reviewer exam without abnormal findingEncounter for STD screeningOther problem related to lifestyle 6 [facility] K[facility]. [address] [place] [address], [id number], [place]. tel:[phone] PREV VISIT, EST, AGE [age] [facility] ([place], [place]), [address], [place], [id number] , [place] tel: [phone] [facility] ([place], [place]) annual visit (chief complaint) Gynecological ExaminationIrreg ular menstrual cycle 8-201 4 [facility] [address], [place], [id number], [place]. tel:[phone] PREV VISIT, EST, AGE [age] [facility] ([place], [place]), [address], [place], [id number] , [place] tel: [phone] [facility] ([place], [place]) No Information 2201 2 Juaquindc CORDOVA Rein. [address], [place], [id number]. tel:[phone] PREV VISIT, NEW, AGE [age] [facility] ([place], [place]), [address], [place], [id number] , [place] tel: [phone] [facility] ([place], [place]) No Information 0-201 0 L[place] Maria D. [address] [place] [address], [id number], [place]. tel:[phone] Family History Family Member Type Diagnosis Age [...] ID Authoriza tion(s) [employer] CFC [id number] Medicaid Wrap - [facility] [id number] Medicaid Wrap - [facility] [id number] Social History Type Description Quantity Date Captured [...] OCPs and desires to continue. Denies other MANAGER DEPARTMENT problems at this time. . annual exam [...] does take Motrin PRN cramping. Denies other MANAGER DEPARTMENT problems at this time. 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 Denies other MANAGER DEPARTMENT problems at this time.. abnormal pap smear [...] is willing to try nuvaring. Denies other MANAGER DEPARTMENT problems at this time. 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 Physician in [place] has recommended a possible biopsy Functional Status [...] patient desires Vasectomy Related to Encntr for case reviewer exam (general) (routine) w/o abn findings Dietary [...] next repeat pap. Related to Encntr for case reviewer exam (general) (routine) w/o abn findings Dietary [...] up Rx Pap sent to lab. Kayley darlingn to call in 1 week for result. [...] insurance, but states she gets assistance from [facility] Related to Umbilical hernia without obstruction and [...] all follow up appt with physician in [place] for abnormal neck gland, fullness and thyroid. Patient states understanding. Encouraged to start Motrin 800mg every 8 hours around the clock during a heavy menses. Patient to take medication with food. Patient states understanding Encouraged to keep menstrual calendar Related to Encounter for general case reviewer exam without abnormal finding Assessments Type Assessment Date No Information Patient Care Teams Name Effective Dates (start - stop) Status Members No Information
--- OUTSIDE RECORDS SUMMARY | 2025-04-27 08:28 | XMS_ITS | Clinical Summary ---
Author Organization [facility] Healthcare Address [address] [place] [address] Care Team Providers Care Boss Dyer Name Role Phone Peter Lozano DO Primary Care Provider [phone] Allergies Active Allergy Reactions Criticality Noted Date [...] FOR 90 DAYS 09/11/2023 Active HYDROcodone-nury taminophen (Gallup) 5-325 MG tablet TAKE 1 TABLET BY [...] on file Insurance [employer] Care Teams Boss Dyer Relationship Specialty Start Date End Date Peter Lozano DO PCP - General 01/25/23
--- OUTSIDE RECORDS SUMMARY | 2025-04-27 08:28 | XMS_ITS | Encounter Summary ---
Author Organization [facility] Address [address] [place] [address] Phone Care Team Providers Care O And M Supervisor Name Role Phone Guillermo Lozano DO Primary Care Provider [phone] Encounter Details Date Type Department Care Team (Late st Contact Info) Description 03/25/2023 Patient Risk Score ACO Care Management [address] [place] [address] Social History Tobacco Use Types [...] on filedocumented in this encounter Care Teams O And M Supervisor Relationship Specialty Start Date End Date Guillermo Lozano DO PCP - General 11/30/15 documented as of this encounter
--- OUTSIDE RECORDS SUMMARY | 2025-04-27 08:28 | XMS_ITS | Encounter Summary ---
Author Organization [facility] Address [address] [place] [address] Care Team Providers Care Refinery Pipeline Operator Name Role Phone Peter Lozano DO Primary Care Provider [phone] Encounter Details Date Type Department Care Team (Late st Contact Info) Description 02/28/2024 Orders Only [facility] [address] [facility] [address] [place] [id number] Peter Lozano DO [address] [place] [phone] Social History Tobacco Use Types Packs/Day Years [...] filedocumented in this encounter Care Teams Refinery Pipeline Operator Relationship Specialty Start Date End Date Peter Lozano DO PCP - General 01/25/23 documented as of this encounter
--- OUTSIDE RECORDS SUMMARY | 2025-04-27 08:28 | XMS_ITS | Clinical Summary ---
Author Organization [facility] Address [address] [place] [address] Phone Care Team Providers Care Roll Handler Name Role Phone AcGuillermo silva Esteban HOOVER Primary Care Provider [phone] Social History Tobacco Use Types Packs/Day Years [...] COVID-19 Vaccine ( - 2023-2 5 season) 2025 Influenza Vaccine (#1) 2025 Zoster Vaccines (1 [...] age to complete this topic Care Teams Roll Handler Relationship Specialty Start Date End Date Guillermo Lozano DO PCP - General 11/30/15
--- OUTSIDE RECORDS SUMMARY | 2025-04-27 08:28 | XMS_ITS | Encounter Summary ---
Author Organization [facility] Address [address] [place] [address] Care Team Providers Care Guest Laundry Attendant Name Role Phone Peter Lozano DO Primary Care Provider [phone] Encounter Details Date Type Department Care Team (Late st Contact Info) Description 10/01/2024 Orders Only [facility] [address] [facility] [address] [place] [phone] Bonifacio Lara DO [address] [facility] [address] [place] [address] Social History Tobacco Use Types Packs/Day Years [...] on filedocumented in this encounter Care Teams Guest Laundry Attendant Relationship Specialty Start Date End Date Peter Lozano DO PCP - General 01/25/23 documented as of this encounter
--- OUTSIDE RECORDS SUMMARY | 2025-04-27 08:29 | XMS_ITS | Encounter Summary ---
Author Organization [facility] Address [address] [place] [address] Phone Care Team Providers Care Office Executive Name Role Phone Guillermo Lozano DO Primary Care Provider [phone] Encounter Details Date Type Department Care Team (Late st Contact Info) Description 01/22/2023 Patient Risk Score ACO Care Management [address] [place] [address] Social History Tobacco Use Types [...] on filedocumented in this encounter Care Teams Office Executive Relationship Specialty Start Date End Date Guillermo Lozano DO PCP - General 11/30/15 documented as of this encounter
--- OUTSIDE RECORDS SUMMARY | 2025-04-27 08:29 | XMS_ITS | Encounter Summary ---
Author Organization [facility] Address [address] [place] [address] Care Team Providers Care Manager Pe Name Role Phone Peter Lozano DO Primary Care Provider [phone] Encounter Details Date Type Department Care Team (Late st Contact Info) Description 12/31/2023 External Result Encounter [facility] External Department Unsolicited Bonifacio Lara DO [address] [place] [address] Social History Tobacco Use Types Packs/Day Years [...] Ayleen Zheng M.D.12/31/2023 12:14 PM Dictation Location: [place] [address] Tech: Nellie Solis Transcribed By: ADIA 12/31/23 1214 Dictated By: Ayleen Zheng MD 12/31/23 1206 Signed By: <Electronically signed by MD Ayleen Zheng in OV> 12/31/23 1214 Narrative 12/31/2023 12:16 PM EDT [facility] [place] [address] Ultrasound Report Signed Patient: Darling Ohara MR#: [id number] : 1980 Acct:[id number] Age/Sex: 43 / F ADM Date: 12/31/23 Loc: Room: Type: [facility] Attending Dr: Bonifacio Lara DO Ordering Provider: Bonifacio Lara DO Date of Service: 12/31/23 US/US abdomen limited: R10.33 Copies to: Bonifacio aLra DO LIMITED ABDOMINAL ULTRASOUND - periumbilical: CLINICAL [...] limited Procedure Note Radiology, Radiologist, - 12/31/2023 [facility] Main [place] [address] [place] [address] Ultrasound Report Signed Patient: Darling Ohara LMR#: [id number] : 1980Acct:[id number] Age/Sex: 43 / FADM Date: 12/31/23 Loc: Room:Type: [facility] Attending Dr: Bonifacio Lara [...] Ayleen Zheng M.D.12/31/2023 12:14 PM Dictation Location: [place] [address] Tech: [facility] Transcribed By: [facility] 12/31/23 1214 Dictated By: Ayleen Zheng MD 12/31/23 1206 Signed By: <Electronically signed by MD Ayleen Zheng in OV> 12/31/23 1214 us Bonifacio Lara DO IMG US PROCEDURES Final R esult documented in this encounter Visit Diagnoses Not on filedocumented in this encounter Care Teams Manager Pe Relationship Specialty Start Date End Date Peter Lozano DO PCP - General 01/25/23 documented as of this encounter
--- OUTSIDE RECORDS SUMMARY | 2025-04-27 08:29 | XMS_ITS | Encounter Summary ---
Author Organization [facility] Address [address] [place] [address] Phone Care Team Providers Care Whiskey Filterer Name Role Phone Guillermo Lozano DO Primary Care Provider [phone] Encounter Details Date Type Department Care Team (Late st Contact Info) Description 02/22/2023 Patient Risk Score ACO Care Management [address] [place] [address] Social History Tobacco Use Types [...] on filedocumented in this encounter Care Teams Whiskey Filterer Relationship Specialty Start Date End Date Guillermo Lozano DO PCP - General 11/30/15 documented as of this encounter
--- OUTSIDE RECORDS SUMMARY | 2025-04-27 08:29 | XMS_ITS | Patient Health Record ---
Author Organization [facility] [place] Address [address] [place] [address] Care Team Providers Care Building Inspector Name Role Phone Peter Lozano DO Primary Care Provider Arthur Wade [phone] Allergies No Known Allergies Reason For Referral Reason BLE EMG Diagnosis 1 Sciatica, left side (M54.32) Referral Organization [facility] Referring Provider First Name Arthur Referring Provider Last Name Yoli Referring Provider Speciality Podiatry Referred Provider [facility] Referred Provider Specialty Neurology Referral Priority Routine Reason Referral to [facility] PT Diagnosis 1 Plantar fascial fibr omatosis (M72.2) Referral Organization [facility] Referring Provider First Name Arthur Referring Provider Last Name Yoli Referring Provider Speciality Podiatry Referred Provider Specialty Physical The rapist Referral Priority Routine Reason Referral to linden Schmid Diagnosis 1 Plantar fascial fibr omatosis (M72.2) Referral Organization [facility] Referring Provider First Name Arthur Referring [...] TAKE 1 TABLET BY BAYLEE TH EVERY DAY; Duration: 30 Active Mary Lou 0.25-35 MG-MCG 1 tablet Orally Once a day Active Centrum Active Social History Tobacco Use: Social History Observation Description Date Details (start date - stop date) Former Smoker NA - NA Tobacco Control (Standard) Question Answer Notes Tobacco use: Former smoker Problems Problem Type SNOMED Code ICD Code Onset Dates Problem Status W/U Status Risk Notes Problem Deformity of lower leg (305021386) Other specified acquired deformities of right lower leg (M21.861) Active confirmed Problem Acquired deformity of left lower leg (disorder) (151479064420377) Other specified acquired deformities of left lower leg (M21.862) Active confirmed Problem Contracture of joint of right ankle (disorder) (394370903312584) Contracture, right ankle (M24.571) Active confirmed Problem Contracture of joint of left ankle (disorder) (463670115955659) Contracture, left ankle (M24.572) Active confirmed Problem Lumbar radiculopathy (689975809) Radiculopathy, lumbar region (M54.16) Active confirmed Problem Left side sciatica (642422387853606) Sciatica, left side (M54.32) Active confirmed Problem Plantar fascial fibromatosis (12887775) Plantar fascial fibromatosis (M72.2) Active confirmed Vital Signs Heart Rate 87 /min 06/17/2024 Temperature 97.3 degrees Fahrenheit 06/17/2024 Respiratory Rate 16 /min 05/07/2024 Oximetry 94 % 06/17/2024 Height 72 in 06/17/2024 Weight 260 lbs 05/07/2024 BMI 35.26 kg/m2 05/07/2024 Encounters Encounter Location Date Provider Diagnosis [facility] [address] [place] [address] [place] [address] 05/07/2024 Arthur Kent Plantar fascial fibromatosis M72.2 ; Contracture, left ankle M24.572 ; Sciatica, left side M54.32 ; Contracture, right ankle M24.571 and Left foot pain M79.672 [facility] [address] [place] [address] [place] [address] 06/17/2024 Arthur Kent Plantar fascial fibromatosis M72.2 ; Contracture, left ankle M24.572 ; Radiculopathy, lumbar region M54.16 and Sciatica, left side M54.32 [facility] [address] [place] [address] [place] [address] 05/07[facility]2024 [facility] [address] [place] [address] [place] [address] 05/07/2024 [facility]) [address] [place] [address] [place] [address] 05/07/2024 [facility]) [address] [place] [address] [place] [address] 06/27/2024 Arthur [facility] Assessments Encounter Date Diagnosis (ICD Code) Assessment Notes Treatment Notes Treatment Clinical Notes Section Notes 05/07/2024 Plantar fascial fibromatosis (ICD-10 - M72.2) [...] 05/07/2024 Sciatica, left side (ICD-10 - M54.32) 05/07/2024 Contracture, right ankle (ICD-10 - M24.571) 06/17/2024 Sciatica, left side (ICD-10 - M54.32) 05/07/2024 Left foot pain (ICD-10 - M79.672) Plan Of Treatment Pending Test Test Name Order Date MRI Ankle LT w/o contrast (Hind Foot) XR Foot 3 Views Bilateral 03/25/2024 XR foot KG min 3V 03/26/2024 Insurance Providers Payer Name Payer Address Payer Phone Subscriber Number Group Number Insured Name Patient Relationship to Insured Coverage Start Date Coverage End Date [employer] [place] [employer] [address] [place] [phone] [id number] Darling Ohara Self - patient is the insured Medical (General) History Medical History History ICD Code GERD fatty liver thyroid issues Surgical History Surgery Date(Month/Year) jaw broke and 4 wisdom teeth extracted branchial cleft cyst removed on neck hernia surgery 2016 right breast cyst removed hernia surgery 2023
--- OUTSIDE RECORDS SUMMARY | 2025-04-27 08:29 | XMS_ITS | Patient Health Record ---
Author Organization [facility] Address [address] [place] [address] [place] [address] Care Team Providers Care Coke Wheeler Name Role Phone Guillermo Lozano DO Primary Care Provider UnavailDylan Zaragoza Unavailable [phone] Reason For Referral No Information Problems Problem Type SNOMED Code ICD Code Onset Dates Problem Status W/U Status Risk Notes Problem Plantar wart (21457143) Plantar wart (078.12) Active confirmed Problem Pain in limb (40351610) Pain in soft tissues of limb (729.5) Active confirmed Plan Of Treatment No Information Medical (General) History Medical History History ICD Code asthma fractured jaw Surgical History Surgery Date(Month/Year) jaw
--- OUTSIDE RECORDS SUMMARY | 2025-04-27 08:31 | XMS_ITS | CCD ---
Author Organization [facility] CliniSyla Care Team Providers Care Quality Control Associate Name Role Phone DR PETER AHUMADA Primary Care Unavailable DR CHETAN RUDD Admitting Unavailable DR CHETAN RUDD Consulting Unavailable DR CHETAN RUDD Attending Unavailable Luz Marina Hernandez Consulting Unavailable Peter Ahumada DO Primary Care Provider Peter Auhmada Unavailable Blake, DO Peter Primary Care Provider [phone] Blake, DO Green Attending Provider Acs, DO Peter Primary Care Provider [phone] Kuns, DO Peter Attending Provider [phone] Kuns, DO Peter Primary Care Provider Kuns, DO Peter Attending Provider Rolando, [facility] [place] Emergency Provider Severo ([facility] [place] DELIA Orellana Attending Provider Acs, DO Green Primary Care Provider [phone] Acs, DO Green Attending Provider [phone] Kuns, DO Peter Primary Care Provider Acs, DO Peter Attending Provider Kuns, DO Peter Primary Care Provider Kuns, DO Peter Attending Provider Kuns, DO Peter Primary Care Provider [phone] Blake, DO Peter Referring Provider [phone] Self, Referral Attending Provider Unavailable MD Igor Rudd Emergency Provider Acs, DO Peter Attending Provider Itzkoyahirtz, DO Alber Attending Provider [phone] DO Chas Meza Attending Provider Kuns, DO Peter Primary Care Provider Blake DO, Peter P Primary Care Provider Kuns, DO Peter Primary Care Provider Kuns, DO Peter Attending Provider JEAN CARLOS Martinez Attending Provider Peter Ahumada MD Primary Care Provider Blake HOOVER, Peter Primary Care Provider Peter Ahumada DO Attending Provider [phone] Robert Martinez DPM Attending Provider Blake HOOVER, Peter Primary Care Provider [phone] Yoli DPRobert Ascencio Attending Provider Blake HOOVER, Peter Primary Care Provider Robert Martinez DPM Attending Provider Itzkowitz DO, Alber Attending Provider [phone] ITZKOWITZ, ALBER H Attending Unavailable ITZKOYAHIRTZ, ALBER H Attending Unavailable ITZKOYAHIRTZ, ALBER H Attending Unavailable ITZKOWITZ, ALBER H Attending Unavailable ITZKOWITZ, ALBER H Attending Unavailable ITZKOWITZ, ALBER H Attending Unavailable RAHUL CASTILLO Attending Unavailable ROBERT MARTINEZ Referring Unavailable Peter Ahumada DO Primary Care Provider Peter Ahumada DO Attending Provider [phone] Peter Ahumada Attending Unavailable Peter Ahumada Admitting [...] (13 sources) Indomethacin Drug Allergy 8 [facility] (14 sources) benzonatate Drug Allergy 4 [facility] (6 sources) benzonatate Drug Allergy 3 GI intolerance [facility] Work Phone: (1 source) benzonatate Drug Allergy 5 [facility] Repository (1 source) Indomethacin Drug Allergy [address] [place] [address] Repository Medications Current Medications Medication Drug Class(es) Dates Sig (Normalized) Sig (Original) [id number] 200 actuat albuterol 0.09 mg/actuat metered dose [...] six hours as needed for pain Hydrocodone-Acetaminophen ([place]) 5-325 mg tablet Discontinued 2 TAB PO [...] 12-17-2023 Episodic Other aftercare (1 source) Other longterm (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 therapy; Translations: [OTH SNF CURRENT DRUG THERAPY] Onset: 1 Episodic Other [...] n 01-27-2025 MM screening mammo BI w/CAD [facility] [address] [place] [address] Mammography Report Signed Patient: Darling Khanna MR#: [id number] : 1980 Acct:[id number] Age/Sex: 44 / F Adm Date: 01/27/25 Loc: [place] Room: Type: [facility] Attending Dr: Peter Ahumada DO Ordering Provider: Peter Ahumada DO Date of Service: 01/27/25 Procedure(s): MM screening mammo BI w/CAD Accession Number(s): ([id number]) MM/MM screening mammo BI w/CAD: Z12.39 - [...] Stovall M.D. 01/27/2025 9:02 AM Dictation Location: [facility] Dictated By: Osmani Stovall DO 01/27/25 0859 Signed By: 01/27/25 0902 Normal [facility] Mammography reportOrdered By : Osmani Stovall on 01-27-2025 Diagnostic imaging study [facility] [address] [place] [address] Mammography Report Signed Patient: Darling Khanna MR#: [id number] : 1980 Acct:[id number] Age/Sex: 44 / F Adm Date: 5 Loc: [place] Room: Type: [facility] Attending Dr: Peter Ahumada DO Ordering Provider: Peter Ahumada DO Date of Service: 01/27/25 Procedure(s): MM screening mammo BI w/CAD Accession Number(s): ([id number]) MM/MM screening mammo BI w/CAD: Z12.39 - [...] Stovall M.D. 01/27/2025 9:02 AM Dictation Location: [facility] Dictated By: Osmani Stovall DO 01/27/25 0859 Signed By: 01/27/25 09 [facility] A1C with Estimated Average G neerajn 12-05-2024 Glucose [Mass/Vol] 117 mg/dL Normal [facility] Comment on above: Result Comment: PERF ORMED BY: [place] [address] PATHOLOGIST FURNACE COMBUSTION ANALYST PADILLA LYMAN M.D. Performed By: #### A 1C WT eA, LIPID, CMP, T4F, TSH3, CBC #### [facility] [address] [place] [address] [place] Alanine aminotransferase [En zymatic activity/volume] in Serum or PlasmaOrdered By: Peter Ahmuada on 12-05-2024 ALT [Catalytic activity/Vol] 6 U/L Low 7-52 [facility] Comment on above: Performed By: #### A 1C WT eA, LIPID, CMP, T4F, TSH3, CBC #### [facility] [address] [place] [address] [place] Albumin [Mass/volume] in Ser um or Plasma by Bromocresol green (BCG) dye binding methoOrdered By: Peter Ahumada on 12-05-2024 Albumin BCG dye [Mass/Vol] 3.7 g/dL 3.5-5.7 [facility] Alkaline phosphatase [Enzyma tic activity/volume] in Serum or PlasmaOrdered By: Peter Ahumada on 12-05-2024 ALP [Catalytic activity/Vol] 42 U/L Normal 34-104 [facility] Comment on above: Performed By: #### A 1C WT eA, LIPID, CMP, T4F, TSH3, CBC #### [facility] [address] Aspartate aminotransferase [ Enzymatic activity/volume] in Serum or PlasmaOrdered By: Peter Ahumada on 12-05-2024 AST [Catalytic activity/Vol] 12 U/L Low 13-39 [facility] Comment on above: Performed By: #### A 1C WT eA, LIPID, CMP, T4F, TSH3, CBC #### [facility] [address] Basophils [#/volume] in Bloo d by Automated countOrdered By: Peter Ahumada on 12-05-2024 Basophils (Bld) [#/Vol] 0.1 10*3/uL Normal 0.0-0.2 [facility] Comment on above: Result Comment: PERF ORMED BY: [address] [place] [address] PATHOLOGIST FURNACE COMBUSTION ANALYST PADILLA LYMAN M.D. Performed By: #### A 1C WT eA, LIPID, CMP, T4F, TSH3, CBC #### [address] Basophils/100 leukocytes in Blood by Automated countOrdered By: Peter Ahumada on 12-05-2024 Basophils/100 WBC (Bld) 0.8 % Normal . [facility] Comment on above: Performed By: #### A 1C WT eA, LIPID, CMP, T4F, TSH3, CBC #### [facility] [address] Bilirubin.total [Mass/volume ] in Serum or PlasmaOrdered By: Peter Ahumada on 12-05-2024 Bilirubin [Mass/Vol] 0.3 mg/dL Normal 0.3-1.0 [facility] Comment on above: Performed By: #### A 1C WTH eA, LIPID, CMP, T4F, TSH3, CBC #### [facility] [address] Blood estimated average gluc ose determination by estimation from glycated hemoglobinOrdered By: Peter Ahumada on 12-05-2024 Average glucose Estimated from glycated hemoglobin (Bld) [Mass/Vol] 117 mg/dL [facility] Calcium [Mass/volume] in Ser um or PlasmaOrdered By: Peter Ahumada on 12-05-2024 Calcium [Mass/Vol] 8.5 mg/dL Low 8.6-10.3 [facility] Comment on above: Performed By: #### A 1C WT eA, LIPID, CMP, T4F, TSH3, CBC #### [facility] [address] [place] [address] [place] Carbon dioxide, total [Moles /volume] in Serum or PlasmaOrdered By: Peter Ahumada on 12-05-2024 CO2 [Moles/Vol] 29.8 mmol/L Normal 21.0-31.0 [facility] Comment on above: Performed By: #### A 1C WT eA, LIPID, CMP, T4F, TSH3, CBC #### [facility] [address] [place] [address] [place] Chloride [Moles/volume] in S renetta or PlasmaOrdered By: Peter Ahumada on 12-05-2024 Chloride [Moles/Vol] 105 mmol/L Normal 98-107 [facility] Comment on above: Performed By: #### A 1C WT eA, LIPID, CMP, T4F, TSH3, CBC #### [facility] [address] [place] [id number] [place] Cholesterol [Mass/volume] in Serum or PlasmaOrdered By: Peter Ahumada on 12-05-2024 Cholesterol [Mass/Vol] 151 mg/dL Normal 140-200 [facility] Comment on above: Chol less than 200 m g/dl low riskChol 201-239 mg/dl borderline riskChol 240 mg/dl and greater high risk Result Comment: Chol less than 200 mg/dl low risk Chol 201-239 mg/dl borderline risk Chol 240 mg/dl and greater high risk Performed By: #### A 1C WTH eA, LIPID, CMP, T4F, TSH3, CBC #### [facility] [address] [place] [id number] [place] Cholesterol in HDL [Mass/vol ume] in Serum or PlasmaOrdered By: Peter Ahumada on 12-05-2024 Cholesterol in HDL [Mass/Vol] 50 mg/dL Normal 23-92 [facility] Comment on above: HDL CHOL ATP-III CLA SSIFICATION Cardiovascular RiskHDL > or equal to 60 mg/dL LOWHDL < 40 mg/dL HIGH Result Comment: HDL CHOL ATP-III CLASSIFICATION Cardiovascular Risk HDL > or equal to 60 mg/dL LOW HDL < 40 mg/dL HIGH Performed By: #### A 1C WTH eA, LIPID, CMP, T4F, TSH3, CBC #### [facility] [address] Cholesterol in LDL Calc [Mas s/Vol]Ordered By: Peter Ahumada on 12-05-2024 Cholesterol in LDL [Mass/Vol] 84 mg/dL 0-100 [facility] Comment on above: LDL ATP III CLASSIFI CATIONLDL less than 100 mg/dL OptimalLDL 100-129 mg/dL Near or above optimalLDL 130-159 mg/dL Borderline highLDL 160-189 mg/dL HighLDL greater than 189 mg/dL Very high Cholesterol in VLDL Calc [Ma ss/Vol]Ordered By: Peter Ahumada on 12-05-2024 Cholesterol in VLDL [Mass/Vol] 16 mg/dL [facility] Complete Blood Count Auto Di ffon 12-05-2024 Mean Corpuscular HGB Conc 33.5 g/dL Normal 32.0-35.0 [facility] Comment on above: Performed By: #### A 1C WT eA, LIPID, CMP, T4F, TSH3, CBC #### [facility] [address] NRBC% 0.0 /100{WBC} Normal 0-0.5 [facility] Comment on above: Performed By: #### A 1C WTH eA, LIPID, CMP, T4F, TSH3, CBC #### [facility] [address] Comprehensive Metabolic Pane prasanth 12-05-2024 Albumin [Mass/Vol] 3.7 g/dL Normal 3.5-5.7 [facility] Comment on above: Performed By: #### A 1C WTH eA, LIPID, CMP, T4F, TSH3, CBC #### [facility] [address] GFR/1.73 sq M.predicted MDRD (S/P/Bld) [Vol rate/Area] mL/min/{1.73_m2} Normal [facility] Comment on above: Performed By: #### A 1C WT eA, LIPID, CMP, T4F, TSH3, CBC #### [address] Creatinine [Mass/volume] in Serum or PlasmaOrdered By: Peter Ahumada on 12-05-2024 Creatinine [Mass/Vol] 0.50 mg/dL Low 0.60-1.20 [facility] Comment on above: Performed By: #### A 1C WT eA, LIPID, CMP, T4F, TSH3, CBC #### [address] Eosinophils [#/volume] in Bl ood by Automated countOrdered By: Peter Ahumada on 12-05-2024 Eosinophils (Bld) [#/Vol] 0.1 10*3/uL Normal 0.0-0.45 [facility] Comment on above: Performed By: #### A 1C WT eA, LIPID, CMP, T4F, TSH3, CBC #### [place] [address] [place] Eosinophils/100 leukocytes i n Blood by Automated countOrdered By: Peter Ahumada on 12-05-2024 Eosinophils/100 WBC (Bld) 1.7 % Normal . [facility] Comment on above: Performed By: #### A 1C WTH eA, LIPID, CMP, T4F, TSH3, CBC #### [place] [address] [place] Erythrocyte distribution wid th [Ratio] by Automated countOrdered By: Peter Ahumada on 12-05-2024 Erythrocyte distribution width (RBC) [Ratio] 12.7 % Normal 11.9-15.3 [facility] Comment on above: Performed By: #### A 1C WTH eA, LIPID, CMP, T4F, TSH3, CBC #### [facility] [address] Erythrocytes [#/volume] in B lood by Automated countOrdered By: Peter Ahumada on 12-05-2024 RBC (Bld) [#/Vol] 4.14 10*6/uL Normal 3.60-5.00 [facility] Comment on above: Performed By: #### A 1C WTH eA, LIPID, CMP, T4F, TSH3, CBC #### [facility] [address] Glucose [Mass/volume] in Ser um or PlasmaOrdered By: Peter Ahumada on 12-05-2024 Glucose [Mass/Vol] 98 mg/dL Normal 70-100 [facility] Comment on above: ADA recommended refe rence rangeRandom Glucose Reference Range is dependent on time and content of last meal. Glucose of more than 200 mg/dL in a nonstressed, ambulatory subject supports the diagnosis of Diabetes Mellitus. Result Comment: Lynn om Glucose Reference Range is dependent on time and content of last meal. Glucose of more than 200 mg/dL in a nonstressed, ambulatory subject supports the diagnosis of Diabetes Mellitus. ADA recommended reference range Performed By: #### A 1C WTH eA, LIPID, CMP, T4F, TSH3, CBC #### [facility] [address] [place] [address] [place] Hematocrit [Volume Fraction] of Blood by Automated countOrdered By: Peter Ahumada on 12-05-2024 Hematocrit (Bld) [Volume fraction] 36.1 % Normal 34.0-46.4 [facility] Comment on above: Performed By: #### A 1C WTH eA, LIPID, CMP, T4F, TSH3, CBC #### [facility] [address] [place] [address] [place] Hemoglobin A1c/Hemoglobin.to vince in BloodOrdered By: Peter Ahumada on 12-05-2024 HbA1c (Bld) [Mass fraction] 5.7 % High 4.3-5.6 [facility] Comment on above: Increased risk for d iabetes: 5.7 - 6.4diabetes: >6.4glycemic control for adults with diabetes: <7.0 Result Comment: Incr eased risk for diabetes: 5.7 - 6.4 diabetes: >6.4 glycemic control for adults with diabetes: <7.0 Performed By: #### A 1C WTH eA, LIPID, CMP, T4F, TSH3, CBC #### [facility] [address] Hemoglobin [Mass/volume] in BloodOrdered By: Peter Ahumada on 12-05-2024 Hemoglobin (Bld) [Mass/Vol] 12.1 g/dL Normal 11.8-15.4 [facility] Comment on above: Performed By: #### A 1C WTH eA, LIPID, CMP, T4F, TSH3, CBC #### [facility] [address] Leukocytes [#/volume] correc bryan for nucleated erythrocytes in Blood by Automated counOrdered By: Peter Ahumada on 12-05-2024 WBC corrected for nucl RBC Auto (Bld) [#/Vol] 7.1 10*3/uL 3.8-11.6 [facility] Leukocytes [#/volume] in Blo od by Automated countOrdered By: Peter Ahumada on 12-05-2024 WBC (Bld) [#/Vol] 7.1 10*3/uL Normal 3.8-11.6 [facility] Comment on above: Performed By: #### A 1C WTH eA, LIPID, CMP, T4F, TSH3, CBC #### [facility] [address] Lipid Panelon 12-05-2024 LDL Cholesterol,Calculated 84 mg/dL Normal 0-100 [facility] Comment on above: Result Comment: LDL ATP III CLASSIFICATION LDL less than 100 mg/dL Optimal LDL 100-129 mg/dL Near or above optimal LDL 130-159 mg/dL Borderline high LDL 160-189 mg/dL High LDL greater than 189 mg/dL Very high Performed By: #### A 1C WTH eA, LIPID, CMP, T4F, TSH3, CBC #### [facility] [address] Triglyceride w/Reflex 83 mg/dL Normal 0-149 [facility] Comment on above: Result Comment: TRIG ATP III CLASSIFICATION TRIG less than 150 mg/dL Normal TRIG 150-199 mg/dL Borderline high TRIG 200-500 mg/dL High TRIG greater than 500 mg/dL Very high Standard traceable to the Center for Disease Conrtrol and Prevention (CDC) test method. Performed By: #### A 1C [facility] eA, LIPID, CMP, T4F, TSH3, CBC #### [address] VLDL CHOLESTEROL 16 mg/dL Normal [facility] Comment on above: Performed By: #### A 1C [facility] eA, LIPID, CMP, T4F, TSH3, CBC #### [address] Lymphocytes [#/volume] in Bl ood by Automated countOrdered By: Peter Ahumada on 12-05-2024 Lymphocytes (Bld) [#/Vol] 1.7 10*3/uL Normal 1.00-4.8 [facility] Comment on above: Performed By: #### A 1C [facility] eA, LIPID, CMP, T4F, TSH3, CBC #### [address] Lymphocytes/100 leukocytes i n Blood by Automated countOrdered By: Peter Ahumada on 12-05-2024 Lymphocytes/100 WBC (Bld) 23.9 % Normal . [facility] Comment on above: Performed By: #### A 1C [facility] eA, LIPID, CMP, T4F, TSH3, CBC #### [address] MCH [Entitic mass] by Automa bryan countOrdered By: Peter Ahumada on 12-05-2024 MCH (RBC) [Entitic mass] 29.1 pg Normal 24.7-34.3 [facility] Comment on above: Performed By: #### A 1C [facility] eA, LIPID, CMP, T4F, TSH3, CBC #### [address] MCHC Auto (RBC) [Mass/Vol]Or dered By: Peter Ahumada on 12-05-2024 MCHC (RBC) [Mass/Vol] 33.5 g/dL 32.0-35.0 [facility] MCV [Entitic volume] by Auto mated countOrdered By: Peter Ahumada on 12-05-2024 MCV (RBC) [Entitic vol] 87.0 fL Normal 80-100 [facility] Comment on above: Performed By: #### A 1C WTH eA, LIPID, CMP, T4F, TSH3, CBC #### [facility] [address] [place] [address] [place] Monocytes [#/volume] in Bloo d by Automated countOrdered By: Peter Ahumada on 12-05-2024 Monocytes (Bld) [#/Vol] 0.5 10*3/uL Normal 0.0-0.8 [facility] Comment on above: Performed By: #### A 1C WTH eA, LIPID, CMP, T4F, TSH3, CBC #### [facility] [address] [place] [address] [place] Monocytes/100 leukocytes in Blood by Automated countOrdered By: Peter Ahumada on 12-05-2024 Monocytes/100 WBC (Bld) 7.2 % Normal . [facility] Comment on above: Performed By: #### A 1C WTH eA, LIPID, CMP, T4F, TSH3, CBC #### [facility] [address] [place] [address] [place] Neutrophils [#/volume] in Bl ood by Automated countOrdered By: Peter Ahumada on 12-05-2024 Neutrophils (Bld) [#/Vol] 4.7 10*3/uL Normal 1.8-7.7 [facility] Comment on above: Performed By: #### A 1C WTH eA, LIPID, CMP, T4F, TSH3, CBC #### [facility] [address] [place] [address] [place] Neutrophils/100 leukocytes i n Blood by Automated countOrdered By: Peter Ahumada on 12-05-2024 Neutrophils/100 WBC (Bld) 66.4 % Normal . [facility] Comment on above: Performed By: #### A 1C WTH eA, LIPID, CMP, T4F, TSH3, CBC #### [facility] [address] No Panel InformationOrdered By: Peter Ahumada on 12-05-2024 Estimated GFR (CKD-EPI) > 60.0 mL/Min [facility] Creatinine Clearance (Chem N/A [facility] Nucleated erythrocytes [Pres ence] in Blood by Automated countOrdered By: Peter Ahumada on 12-05-2024 Nucleated RBC Auto Ql (Bld) 0.0 /100{WBC} 0-0.5 [facility] Platelet mean volume [Entiti c volume] in Blood by Automated countOrdered By: Peter Ahumada on 12-05-2024 Platelet mean volume (Bld) [Entitic vol] 7.7 fL Normal 6.3-10.7 [facility] Comment on above: Performed By: #### A 1C [facility] eA, LIPID, CMP, T4F, TSH3, CBC #### [facility] [address] Platelets [#/volume] in Bloo d by Automated countOrdered By: Peter Ahumada on 12-05-2024 Platelets (Bld) [#/Vol] 296 10*3/uL Normal 150-450 [facility] Comment on above: Performed By: #### A 1C [facility] eA, LIPID, CMP, T4F, TSH3, CBC #### [facility] [address] [place] [address] [place] Potassium [Moles/volume] in Serum or PlasmaOrdered By: Peter Ahumada on 12-05-2024 Potassium [Moles/Vol] 4.4 mmol/L Normal 3.5-5.1 [facility] Comment on above: Performed By: #### A 1C [facility] eA, LIPID, CMP, T4F, TSH3, CBC #### [address] Protein [Mass/volume] in Ser um or PlasmaOrdered By: Peter Ahumada on 12-05-2024 Protein [Mass/Vol] 6.0 g/dL Low 6.4-8.9 [facility] Comment on above: Performed By: #### A 1C [facility] eA, LIPID, CMP, T4F, TSH3, CBC #### [facility] [address] Serum globulin measurement b y calculation (mass/volume)Ordered By: Peter Ahumada on 12-05-2024 Globulin (S) [Mass/Vol] 2.3 g/dL Normal [facility] Comment on above: Performed By: #### A 1C [facility] eA, LIPID, CMP, T4F, TSH3, CBC #### [facility] [address] Serum or plasma albumin/glob ulin mass ratioOrdered By: Peter Ahumada on 12-05-2024 Albumin/Globulin [Mass ratio] 1.6 {ratio} Normal [facility] Comment on above: Performed By: #### A 1C [facility] eA, LIPID, CMP, T4F, TSH3, CBC #### [facility] [address] [place] [address] Serum or plasma anion gap de terminationOrdered By: Peter Ahumada on 12-05-2024 Anion gap [Moles/Vol] 8.6 mmol/L Normal 6.0-15.0 [facility] Comment on above: Performed By: #### A 1C [facility] eA, LIPID, CMP, T4F, TSH3, CBC #### [address] Serum or plasma total choles terol/high density lipoprotein (HDL) cholesterol mass ratOrdered By: Peter Ahumada on 12-05-2024 Cholesterol.total/Chol esterol in HDL [Mass ratio] 3.0 {ratio} Normal <5.0 [facility] Comment on above: Performed By: #### A 1C WT eA, LIPID, CMP, T4F, TSH3, CBC #### [facility] [address] [place] [address] Sodium [Moles/volume] in Ser um or PlasmaOrdered By: Peter Ahumada on 12-05-2024 Sodium [Moles/Vol] 139 mmol/L Normal 136-145 [facility] Comment on above: Performed By: #### A 1C WT eA, LIPID, CMP, T4F, TSH3, CBC #### [facility] [address] [place] [address] Thyrotropin [Units/volume] i n Serum or PlasmaOrdered By: Peter Ahumada on 12-05-2024 TSH Qn 0.30 m[IU]/L Low 0.45-5.33 [facility] Comment on above: Result Comment: PERF ORMED BY: [place] [address] PATHOLOGIST FURNACE COMBUST[employer] ANALYST PADILLA LYMAN M.D. Performed By: #### A 1C WT eA, LIPID, CMP, T4F, TSH3, CBC #### [address] Thyroxine (T4) free [Mass/vo lume] in Serum or PlasmaOrdered By: Peter Ahumada on 12-05-2024 Free T4 [Mass/Vol] 1.01 ng/dL Normal 0.61-1.12 [facility] Comment on above: Performed By: #### A 1C WT eA, LIPID, CMP, T4F, TSH3, CBC #### [address] Triglyceride [Mass/volume] i n Serum or PlasmaOrdered By: Peter Ahumada on 12-05-2024 Triglyceride [Mass/Vol] 83 mg/dL 0-149 [facility] Comment on above: TRIG ATP III CLASSIF ICATIONTRIG less than 150 mg/dL NormalTRIG 150-199 mg/dL Borderline highTRIG 200-500 mg/dL High TRIG greater than 500 mg/dL Very highStandard traceable to the Center for Disease Conrtrol and Prevention (CDC) test method. Urea nitrogen [Mass/volume] in Serum or PlasmaOrdered By: Peter Ahumada on 12-05-2024 Urea nitrogen [Mass/Vol] 16 mg/dL Normal 7-25 [facility] Comment on above: Performed By: #### A 1C WT eA, LIPID, CMP, T4F, TSH3, CBC #### [place] [address] [facility] Pathology study report docum entOrdered By: Adolfo Madrid on 09-30-2024 Pathology study [facility] Other Phone: Prasanth 09-29-2024 L ---- Specimen: [id number] Received: 09/29/24 Status: EDELBaldo Hidalgo Num: [id number] Spec Type: Surgical Subm Dr: Alber Haines DO Tissues: A Skin Cyst (RT CHEST CYSTIC WALL) Procedures: Luma RAMIREZ/Fabiana L3 Age/ Patient Sex Location Account Attending Physician Darling Khanna/Teresa KLINE [id number] Alber Haines DO SPEC NUM: [id number] RECD: 09/29/24-1218 STATUS: JORGE PACHECO NUM: [id number] ALISTAIR: 09/29/24- SUBM DR: Alber Haines DO ENTERED: 09/29/24-1221 [facility]: [facility] SPEC TYPE: Surgical DEPT: S ORDERED: [...] submitted in a single cassette. (1, ns, [id number]) NOEL Specimen: [id number] Received: 09/29/24 Status: JORGE Pacheco Num: [id number] Spec Type: Surgical Subm Dr: Alber Haines DO Tissues: A Skin Cyst (RT CHEST CYSTIC WALL) Procedures: ASHLEY, Gross/Micro L3 Patient: MaydaDarling [id number] (Continued) Specimen: [id number] Received: 09/29/24 (Continued) Signed (signature on file) Adolfo Madrid MD 09/30/24 1501 Specimen: [id number] Received: 09/29/24 Status: JORGE Hidalgo Num: [id number] Spec Type: Surgical Subm Dr: Alber Haines DO Tissues: A Skin Cyst (RT CHEST CYSTIC WALL) Procedures: Luma RAMIREZ/Fabiana L3 Patient: Darling Khanna [id number] (Continued) Specimen: [id number] Received: 09/29/24 (Continued) Microscopic Description Microscopic examinations are performed supporting the above interpretation CPT Codes 06629 Specimen: [id number] Received: 09/29/24 Status: JORGE Hidalgo Num: [id number] Spec Type: Surgical Subm Dr: Alber Haines DO Tissues: A Skin Cyst (RT CHEST CYSTIC WALL) Procedures: Luma RAMIREZ/Fabiana L3 Patient: Darling Khanna [id number] (Continued) Signed (signature on file) Adolfo Madrid MD 09/30/24 1501 Normal [facility] MR ankle LT wo conon 024 MR ankle LT wo con [place] [address] MRI Report Signed Patient: Darling Khanna MR#: [id number] : 1980 Acct:[id number] Age/Sex: 44 / F ADM Date: 06/04/24 Loc: Room: Type: [facility] Attending Dr: Robert Martinez DPM, MS Copies [...] Osmani Stovall M.D.06/04/2024 10:29 PM Dictation Location: [place] [address] Transcribed By: [facility] 06/04/242228 Dictated By: Osmani Stovall DO 06/04/242217 Signed By: 06/04/242228 Normal [facility] Magnetic resonance imaging r eportOrdered By: Osmani Stovall on 06-04-2024 Study report [facility] [place] [address] [place] [address] MRI Report Signed Patient: Darling Khanna MR#: [id number] : 1980 Acct:[id number] Age/Sex: 44 / F ADM Date: 4 Loc: MR Room: Type: [facility] Attending Dr: Robert Martinez DPM, MS Copies [...] Osmani Stovall M.D.06/04/2024 10:29 PM Dictation Location: [place] [address] Transcribed By: [facility] 06/04/242228 Dictated By: Osmani Stovall DO 06/04/242217 Signed By: 06/04/242228 [facility] X-ray reportOrdered By: Vikas Stovall on 06-04-2024 Study report [facility] [place] [id number] XRay Report Signed Patient: Darling Khanna MR#: [id number] : 1980 Acct:[id number] Age/Sex: 44 / F ADM Date: 4 Loc: MR Room: Type: [facility] Attending Dr: Robert Martinez DPM, MS Copies [...] Osmani Stovall DO 06/04/242350 Signed By: 06/04/242350 [facility] XR pre/post mri xrayon 06-04 XR pre/post mri xray [facility] [place] [address] XRay Report Signed Patient: Darling Khanna MR#: [id number] : 1980 Acct:[id number] Age/Sex: 44 / F ADM Date: 06/04/24 Loc: Room: Type: [facility] Attending Dr: Robert Martinez DPM, MS Copies [...] DO 06/04/242350 Signed By: 06/04/242350 Normal [facility] EMG 2 Extremitieson 05-22-20 24 S1 radiculopathy, le ft, mild [facility] NVC 11-12 Nerveson 4 S1 radiculopathy, le ft, mild [facility] upper GI w air*on 024 FL upper GI w air* [facility] [place] [id number] Fluoroscopy Report Signed Patient: Darling Khanna MR#: [id number] 1872 : 1980 Acct:[id number] Age/Sex: 43 / F ADM Date: 03/12/24 [...] Osmani Stovall M.D.03/12/2024 2:09 PM Dictation Location: [place] [address] Transcribed By: [facility] 03/12/24 1409 Dictated By: Osmani Stovall DO 03/12/24 1040 Signed By: 03/12/24 1409 Normal [facility] US gall bladderon 03-12-2024 US gall bladder [facility] Main [address] [address] Ultrasound Report Signed Patient: Darling Khanna MR#: [id number] 1872 : 1980 Acct:[id number] Age/Sex: 43 / F ADM Date: 03/12/24 [...] Osmani Stovall M.D.03/12/2024 10:39 AM Dictation Location: [place] [address] Tech: Nellie Solis Transcribed By: [facility] 03/12/24 1039 Dictated By: Osmani Stovall DO 03/12/24 1036 Signed By: 03/12/24 1039 Normal [facility] A1C with Estimated Average G luon 03-05-2024 Glucose [Mass/Vol] 128 mg/dL Normal [facility] Comment on above: Result Comment: PERF ORMED BY: [facility] [address] [place] [address] PATHOLOGIST FURNACE COMBUSTION ANALYST ALVIN VIDES M.D. Performed By: #### T 4F, CBC, TSH3, A1C WTH eA, LIPID, CMP ####[facility] [id number] [place] [address] [facility] Alanine aminotransferase [En zymatic activity/volume] in Serum or PlasmaOrdered By: Peter Ahumada on 03-05-2024 ALT [Catalytic activity/Vol] 10 U/L Normal 7-52 [facility] Comment on above: Performed By: #### T 4F, CBC, TSH3, A1C WTH eA, LIPID, CMP ####[facility] Albumin [Mass/volume] in Ser um or Plasma by Bromocresol green (BCG) dye binding methoOrdered By: Peter Ahumada on 03-05-2024 Albumin BCG dye [Mass/Vol] 4.0 g/dL 3.5-5.7 [facility] Alkaline phosphatase [Enzyma tic activity/volume] in Serum or PlasmaOrdered By: Peter Ahumada on 03-05-2024 ALP [Catalytic activity/Vol] 46 U/L Normal 34-104 [facility] Comment on above: Performed By: #### T 4F, CBC, TSH3, A1C WTH eA, LIPID, CMP ####[facility] Aspartate aminotransferase [ Enzymatic activity/volume] in Serum or PlasmaOrdered By: Peter Ahumada on 03-05-2024 AST [Catalytic activity/Vol] 20 U/L Normal 13-39 [facility] Comment on above: Performed By: #### T 4F, CBC, TSH3, A1C WTH eA, LIPID, CMP ####[place] [address] [address] Automated basophil %Ordered By: Peter Ahumada on 03-05-2024 Basophils/100 WBC (Bld) 0.7 % Normal . [facility] Comment on above: Performed By: #### T 4F, CBC, TSH3, A1C WTH eA, LIPID, CMP #### [facility] [address] Automated basophil countOrde red By: Peter Ahumada on 03-05-2024 Basophils (Bld) [#/Vol] 0.0 10*3/uL Normal 0.0-0.2 [facility] Comment on above: Result Comment: PERF ORMED BY: [place] [address] PATHOLOGIST F[employer]NACE COMBUSTION ANALYST ALVIN VIDES M.D. Performed By: #### T 4F, CBC, TSH3, A1C WTH eA, LIPID, CMP #### [facility] [address] Automated blood monocyte cou ntOrdered By: Peter Ahumada on 03-05-2024 Monocytes (Bld) [#/Vol] 0.5 10*3/uL Normal 0.0-0.8 [facility] Comment on above: Performed By: #### T 4F, CBC, TSH3, A1C WTH eA, LIPID, CMP #### [facility] [address] Automated eosinophil %Ordere d By: Peter Ahumada on 03-05-2024 Eosinophils/100 WBC (Bld) 2.2 % Normal . [facility] Comment on above: Performed By: #### T 4F, CBC, TSH3, A1C WTH eA, LIPID, CMP #### [address] Automated eosinophil countOr dered By: Peter Ahumada on 03-05-2024 Eosinophils (Bld) [#/Vol] 0.1 10*3/uL Normal 0.0-0.45 [facility] Comment on above: Performed By: #### T 4F, CBC, TSH3, A1C WTH eA, LIPID, CMP #### [facility] [address] [place] [address] Automated monocyte %Ordered By: Peter Ahumada on 03-05-2024 Monocytes/100 WBC (Bld) 7.5 % Normal . [facility] Comment on above: Performed By: #### T 4F, CBC, TSH3, A1C WTH eA, LIPID, CMP #### [facility] [address] Automated neutrophil %Ordere d By: Peter Ahumada on 03-05-2024 Neutrophils/100 WBC (Bld) 53.3 % Normal . [facility] Comment on above: Performed By: #### T 4F, CBC, TSH3, A1C WTH eA, LIPID, CMP #### [facility] [address] [place] [address] Bilirubin.total [Mass/volume ] in Serum or PlasmaOrdered By: Peter Ahumada on 03-05-2024 Bilirubin [Mass/Vol] 0.4 mg/dL Normal 0.3-1.0 [facility] Comment on above: Performed By: #### T 4F, CBC, TSH3, A1C WTH eA, LIPID, CMP ####[facility] [place] [address] [place] Calcium [Mass/volume] in Ser um or PlasmaOrdered By: Peter Ahumada on 03-05-2024 Calcium [Mass/Vol] 8.9 mg/dL Normal 8.6-10.3 [facility] Comment on above: Performed By: #### T 4F, CBC, TSH3, A1C WT eA, LIPID, CMP ####[place] [address] [place] [address] [facility] Carbon dioxide, total [Moles /volume] in Serum or PlasmaOrdered By: Peter Ahumada on 03-05-2024 CO2 [Moles/Vol] 28.7 mmol/L Normal 21.0-31.0 [facility] Comment on above: Performed By: #### T 4F, CBC, TSH3, A1C WTH eA, LIPID, CMP ####[place] [address] [place] [address] [place] Chloride [Moles/volume] in S renetta or PlasmaOrdered By: Peter Ahumada on 03-05-2024 Chloride [Moles/Vol] 103 mmol/L Normal 98-107 [facility] Comment on above: Performed By: #### T 4F, CBC, TSH3, A1C WTH eA, LIPID, CMP ####[place] [address] [place] [address] [place] Cholesterol [Mass/volume] in Serum or PlasmaOrdered By: Peter Ahumada on 03-05-2024 Cholesterol [Mass/Vol] 166 mg/dL Normal 140-200 [facility] Comment on above: Chol less than 200 m g/dl low riskChol 201-239 mg/dl borderline riskChol 240 mg/dl and greater high risk Result Comment: Chol less than 200 mg/dl low risk Chol 201-239 mg/dl borderline risk Chol 240 mg/dl and greater high risk Performed By: #### T 4F, CBC, TSH3, A1C WTH eA, LIPID, CMP ####[facility] Cholesterol in LDL Calc [Mas s/Vol]Ordered By: Peter Ahumada on 03-05-2024 Cholesterol in LDL [Mass/Vol] 76 mg/dL 0-100 [facility] Comment on above: LDL ATP III CLASSIFI CATIONLDL less than 100 mg/dL OptimalLDL 100-129 mg/dL Near or above optimalLDL 130-159 mg/dL Borderline highLDL 160-189 mg/dL HighLDL greater than 189 mg/dL Very high Cholesterol in VLDL Calc [Ma ss/Vol]Ordered By: Peter Ahumada on 03-05-2024 Cholesterol in VLDL [Mass/Vol] 40 mg/dL [facility] Complete Blood Count Auto Di ffon 03-05-2024 Mean Corpuscular HGB Conc 33.6 g/dL Normal 32.0-35.0 [facility] Comment on above: Performed By: #### T 4F, CBC, TSH3, A1C WTH eA, LIPID, CMP #### [facility] [address] NRBC% 0.1 /100{WBC} Normal 0-0.5 [facility] Comment on above: Performed By: #### T 4F, CBC, TSH3, A1C WTH eA, LIPID, CMP #### [facility] [address] Comprehensive Metabolic Pane prasanth 03-05-2024 Albumin [Mass/Vol] 4.0 g/dL Normal 3.5-5.7 [facility] Comment on above: Performed By: #### T 4F, CBC, TSH3, A1C WTH eA, LIPID, CMP ####[facility] GFR/1.73 sq M.predicted MDRD (S/P/Bld) [Vol rate/Area] mL/min/{1.73_m2} Normal [facility] Comment on above: Performed By: #### T 4F, CBC, TSH3, A1C WTH eA, LIPID, CMP ####[facility] [id number] Creatinine [Mass/volume] in Serum or PlasmaOrdered By: Peter Ahumada on 03-05-2024 Creatinine [Mass/Vol] 0.63 mg/dL Normal 0.60-1.20 [facility] Comment on above: Performed By: #### T 4F, CBC, TSH3, A1C WTH eA, LIPID, CMP ####[facility] Erythrocyte distribution wid th [Ratio] by Automated countOrdered By: Peter Ahumada on 03-05-2024 Erythrocyte distribution width (RBC) [Ratio] 13.4 % Normal 11.9-15.3 [facility] Comment on above: Performed By: #### T 4F, CBC, TSH3, A1C WTH eA, LIPID, CMP #### [facility] [address] Erythrocytes [#/volume] in B lood by Automated countOrdered By: Peter Ahumada on 03-05-2024 RBC (Bld) [#/Vol] 4.44 10*6/uL Normal 3.60-5.00 [facility] Comment on above: Performed By: #### T 4F, CBC, TSH3, A1C WTH eA, LIPID, CMP #### [facility] [address] Glucose [Mass/volume] in Ser um or PlasmaOrdered By: Peter Ahumada on 03-05-2024 Glucose [Mass/Vol] 96 mg/dL Normal 70-100 [facility] Comment on above: ADA recommended refe rence rangeRandom Glucose Reference Range is dependent on time and content of last meal. Glucose of more than 200 mg/dL in a nonstressed, ambulatory subject supports the diagnosis of Diabetes Mellitus. Result Comment: Lynn om Glucose Reference Range is dependent on time and content of last meal. Glucose of more than 200 mg/dL in a nonstressed, ambulatory subject supports the diagnosis of Diabetes Mellitus. ADA recommended reference range Performed By: #### T 4F, CBC, TSH3, A1C WTH eA, LIPID, CMP ####[facility] [place] [address] Glucose mean value [Mass/vol ume] in Blood Estimated from glycated hemoglobinOrdered By: Peter Ahumada on 03-05-2024 Average glucose Estimated from glycated hemoglobin (Bld) [Mass/Vol] 128 mg/dL [facility] Hematocrit [Volume Fraction] of Blood by Automated countOrdered By: Peter Ahumada on 03-05-2024 Hematocrit (Bld) [Volume fraction] 37.2 % Normal 34.0-46.4 [facility] Comment on above: Performed By: #### T 4F, CBC, TSH3, A1C WTH eA, LIPID, CMP #### [facility] [address] Hemoglobin A1c percentageOrd ered By: Peter Ahumada on 03-05-2024 HbA1c (Bld) [Mass fraction] 6.1 % High 4.3-5.6 [facility] Comment on above: Increased risk for d iabetes: 5.7 - 6.4diabetes: >6.4glycemic control for adults with diabetes: <7.0 Result Comment: Incr eased risk for diabetes: 5.7 - 6.4 diabetes: >6.4 glycemic control for adults with diabetes: <7.0 Performed By: #### T 4F, CBC, TSH3, A1C WTH eA, LIPID, CMP ####[facility] [id number] Hemoglobin [Mass/volume] in BloodOrdered By: Peter Ahumada on 03-05-2024 Hemoglobin (Bld) [Mass/Vol] 12.5 g/dL Normal 11.8-15.4 [facility] Comment on above: Performed By: #### T 4F, CBC, TSH3, A1C WTH eA, LIPID, CMP #### [facility] [address] Leukocytes [#/volume] correc bryan for nucleated erythrocytes in Blood by Automated counOrdered By: Peter Ahumada on 03-05-2024 WBC corrected for nucl RBC Auto (Bld) [#/Vol] 6.2 10*3/uL 3.8-11.6 [facility] Leukocytes [#/volume] in Blo od by Automated countOrdered By: Peter Ahumada on 03-05-2024 WBC (Bld) [#/Vol] 6.2 10*3/uL Normal 3.8-11.6 [facility] Comment on above: Performed By: #### T 4F, CBC, TSH3, A1C WTH eA, LIPID, CMP #### [facility] [address] Lipid Panelon 03-05-2024 LDL Cholesterol,Calculated 76 mg/dL Normal 0-100 [facility] Comment on above: Result Comment: LDL ATP III CLASSIFICATION LDL less than 100 mg/dL Optimal LDL 100-129 mg/dL Near or above optimal LDL 130-159 mg/dL Borderline high LDL 160-189 mg/dL High LDL greater than 189 mg/dL Very high Performed By: #### T 4F, CBC, TSH3, A1C WTH eA, LIPID, CMP ####[facility] Triglyceride w/Reflex 202 mg/dL High 0-149 [facility] Comment on above: Result Comment: TRIG ATP III CLASSIFICATION TRIG less than 150 mg/dL Normal TRIG 150-199 mg/dL Borderline high TRIG 200-500 mg/dL High TRIG greater than 500 mg/dL Very high Standard traceable to the Center for Disease Conrtrol and Prevention (CDC) test method. Performed By: #### T 4F, CBC, TSH3, A1C WTH eA, LIPID, CMP ####[facility] VLDL CHOLESTEROL 40 mg/dL Normal [facility] Comment on above: Performed By: #### T 4F, CBC, TSH3, A1C WTH eA, LIPID, CMP ####[facility] Lymphocytes [#/volume] in Bl ood by Automated countOrdered By: Peter Ahumada on 03-05-2024 Lymphocytes (Bld) [#/Vol] 2.2 10*3/uL Normal 1.00-4.8 [facility] Comment on above: Performed By: #### T 4F, CBC, TSH3, A1C WTH eA, LIPID, CMP #### [facility] [address] Lymphocytes/100 leukocytes i n Blood by Automated countOrdered By: Peter Ahumada on 03-05-2024 Lymphocytes/100 WBC (Bld) 36.3 % Normal . [facility] Comment on above: Performed By: #### T 4F, CBC, TSH3, A1C WTH eA, LIPID, CMP #### [facility] [address] MCH [Entitic mass] by Automa bryan countOrdered By: Peter Ahumada on 03-05-2024 MCH (RBC) [Entitic mass] 28.2 pg Normal 24.7-34.3 [facility] Comment on above: Performed By: #### T 4F, CBC, TSH3, A1C WTH eA, LIPID, CMP #### [address] MCHC Auto (RBC) [Mass/Vol]Or dered By: Peter Ahumada on 03-05-2024 MCHC (RBC) [Mass/Vol] 33.6 g/dL 32.0-35.0 [facility] MCV [Entitic volume] by Auto mated countOrdered By: Peter Ahumada on 03-05-2024 MCV (RBC) [Entitic vol] 83.8 fL Normal 80-100 [facility] Comment on above: Performed By: #### T 4F, CBC, TSH3, A1C WTH eA, LIPID, CMP #### [address] Neutrophils [#/volume] in Bl ood by Automated countOrdered By: Peter Ahumada on 03-05-2024 Neutrophils (Bld) [#/Vol] 3.3 10*3/uL Normal 1.8-7.7 [facility] Comment on above: Performed By: #### T 4F, CBC, TSH3, A1C WTH eA, LIPID, CMP #### [address] No Panel InformationOrdered By: Peter Ahumada on 03-05-2024 Estimated GFR (CKD-EPI) > 60.0 mL/Min [facility] Creatinine Clearance (Chem N/A [facility] Nucleated erythrocytes [Pres ence] in Blood by Automated countOrdered By: Peter Ahumada on 03-05-2024 Nucleated RBC Auto Ql (Bld) 0.1 /100{WBC} 0-0.5 [facility] Platelet mean volume [Entiti c volume] in Blood by Automated countOrdered By: Peter Ahumada on 03-05-2024 Platelet mean volume (Bld) [Entitic vol] 8.7 fL Normal 6.3-10.7 [facility] Comment on above: Performed By: #### T 4F, CBC, TSH3, A1C WTH eA, LIPID, CMP #### [facility] [address] [place] [address] [place] Platelets [#/volume] in Bloo d by Automated countOrdered By: Peter Ahumada on 03-05-2024 Platelets (Bld) [#/Vol] 333 10*3/uL Normal 150-450 [facility] Comment on above: Performed By: #### T 4F, CBC, TSH3, A1C WTH eA, LIPID, CMP #### [facility] [address] [place] [address] [place] Potassium [Moles/volume] in Serum or PlasmaOrdered By: Peter Ahumada on 03-05-2024 Potassium [Moles/Vol] 3.8 mmol/L Normal 3.5-5.1 [facility] Comment on above: Performed By: #### T 4F, CBC, TSH3, A1C WTH eA, LIPID, CMP ####[facility] [address] [place] [address] [place] Protein [Mass/volume] in Ser um or PlasmaOrdered By: Peter Ahumada on 03-05-2024 Protein [Mass/Vol] 6.7 g/dL Normal 6.4-8.9 [facility] Comment on above: Performed By: #### T 4F, CBC, TSH3, A1C WTH eA, LIPID, CMP ####[facility] [id number] [place] [id number] [place] Serum globulin measurement b y calculation (mass/volume)Ordered By: Peter Ahumada on 03-05-2024 Globulin (S) [Mass/Vol] 2.7 g/dL [facility] Comment on above: Performed By: #### T 4F, CBC, TSH3, A1C WTH eA, LIPID, CMP ####[facility] [id number] Serum or plasma albumin/glob ulin mass ratioOrdered By: Peter Ahumada on 03-05-2024 Albumin/Globulin [Mass ratio] 1.5 {ratio} [facility] Comment on above: Performed By: #### T 4F, CBC, TSH3, A1C WTH eA, LIPID, CMP ####[facility] [id number] [address] Serum or plasma anion gap de terminationOrdered By: Peter Ahumada on 03-05-2024 Anion gap [Moles/Vol] 11.1 mmol/L Normal 6.0-15.0 [facility] Comment on above: Performed By: #### T 4F, CBC, TSH3, A1C WTH eA, LIPID, CMP ####[facility] [id number] Serum or plasma high density lipoprotein (HDL) cholesterol measurementOrdered By: Peter Ahumada on 03-05-2024 Cholesterol in HDL [Mass/Vol] 50 mg/dL Normal 23-92 [facility] Comment on above: HDL CHOL ATP-III CLA SSIFICATION Cardiovascular RiskHDL > or equal to 60 mg/dL LOWHDL < 40 mg/dL HIGH Result Comment: HDL CHOL ATP-III CLASSIFICATION Cardiovascular Risk HDL > or equal to 60 mg/dL LOW HDL < 40 mg/dL HIGH Performed By: #### T 4F, CBC, TSH3, A1C WTH eA, LIPID, CMP ####[facility] [id number] Serum or plasma total choles terol/high density lipoprotein (HDL) cholesterol mass ratOrdered By: Peter Ahumada on 03-05-2024 Cholesterol.total/Chol esterol in HDL [Mass ratio] 3.3 {ratio} Normal <5.0 [facility] Comment on above: Performed By: #### T 4F, CBC, TSH3, A1C WTH eA, LIPID, CMP ####[place] [address] [place] [id number] [facility] Sodium [Moles/volume] in Ser um or PlasmaOrdered By: Peter Ahumada on 03-05-2024 Sodium [Moles/Vol] 139 mmol/L Normal 136-145 [facility] Comment on above: Performed By: #### T 4F, CBC, TSH3, A1C WT eA, LIPID, CMP ####[place] [address] [place] [id number] [facility] Thyrotropin [Units/volume] i n Serum or PlasmaOrdered By: Peter Ahumada on 03-05-2024 TSH Qn 0.29 m[IU]/L Low 0.45-5.33 [facility] Comment on above: Result Comment: PERF ORMED BY: [facility] [address] [place] [address] PATHOLOGIST FURNACE COMBUSTION ANALYST ALVNI VIDES M.D. Performed By: #### T 4F, CBC, TSH3, A1C WTH eA, LIPID, CMP ####[place] [address] [place] [id number] [facility] Thyroxine (T4) free [Mass/vo lume] in Serum or PlasmaOrdered By: Peter Ahumada on 03-05-2024 Free T4 [Mass/Vol] 0.81 ng/dL Normal 0.61-1.12 [facility] Comment on above: Performed By: #### T 4F, CBC, TSH3, A1C WT eA, LIPID, CMP ####[place] [id number] [facility] Triglyceride [Mass/volume] i n Serum or PlasmaOrdered By: Peter Ahumada on 03-05-2024 Triglyceride [Mass/Vol] 202 mg/dL High 0-149 [facility] Comment on above: TRIG ATP III CLASSIF ICATIONTRIG less than 150 mg/dL NormalTRIG 150-199 mg/dL Borderline highTRIG 200-500 mg/dL High TRIG greater than 500 mg/dL Very highStandard traceable to the Center for Disease Conrtrol and Prevention (CDC) test method. Urea nitrogen [Mass/volume] in Serum or PlasmaOrdered By: Peter Ahumada on 03-05-2024 Urea nitrogen [Mass/Vol] 11 mg/dL Normal - [facility] Comment on above: Performed By: #### T 4F, CBC, TSH3, A1C WT eA, LIPID, CMP ####[facility] [id number] [place] [address] [facility] XR elbow RT 2Von 02-13-2024 XR elbow RT 2V [facility] [address] [place] [address] XRay Report Signed Patient: Darling Khanna MR#: [id number] 1872 : 1980 Acct:[id number] Age/Sex: 43 / F ADM Date: 02/13/24 Loc: [facility] Room: Type: [facility] Attending Dr: Chas Meza DO Copies to: [...] Osmani Stovall M.D.02/13/2024 4:07 PM Dictation Location: [place] [address] Transcribed By: [facility] 02/13/24 1606 Dictated By: Osmani Stovall DO 02/13/24 1607 Signed By: 02/13/24 1607 Normal [facility] HCG ( test) IAshashi d Ql (U)Ordered By: Rahul Rogers on 01-29-2024 HCG ( test) Ql (U) Negative [facility] Thyrotropin [Units/volume] i n Serum or PlasmaOrdered By: Peter Ahumada on 08-22-2023 TSH Qn 0.15 m[IU]/L 0.45-5.33 [facility] Thyroxine (T4) free [Mass/vo lume] in Serum or PlasmaOrdered By: Peter Ahumada on 08-22-2023 Free T4 [Mass/Vol] 0.97 ng/dL 0.61-1.12 [facility] Alanine aminotransferase [En zymatic activity/volume] in Serum or PlasmaOrdered By: Peter Ahumada on 05-25-2023 ALT [Catalytic activity/Vol] 7 U/L 7-52 [facility] Albumin [Mass/volume] in Ser um or Plasma by Bromocresol green (BCG) dye binding methoOrdered By: Peter Ahumada on 05-25-2023 Albumin BCG dye [Mass/Vol] 3.8 g/dL 3.5-5.7 [facility] Alkaline phosphatase [Enzyma tic activity/volume] in Serum or PlasmaOrdered By: Peter Ahumada on 05-25-2023 ALP [Catalytic activity/Vol] 54 U/L 34-104 [facility] Aspartate aminotransferase [ Enzymatic activity/volume] in Serum or PlasmaOrdered By: Peter Ahumada on 05-25-2023 AST [Catalytic activity/Vol] 17 U/L 13-39 [facility] Basophils Auto (Bld) [#/Vol] Ordered By: Peter Ahumada on 05-25-2023 Basophils (Bld) [#/Vol] 0.1 10*3/uL 0.0-0.2 [facility] Basophils/100 WBC Auto (Bld) Ordered By: Peter Ahumada on 05-25-2023 Basophils/100 WBC (Bld) 1.1 % . [facility] Bilirubin.total [Mass/volume ] in Serum or PlasmaOrdered By: Peter Ahumada on 05-25-2023 Bilirubin [Mass/Vol] 0.3 mg/dL 0.3-1.0 [facility] [place] Calcium [Mass/volume] in Ser um or PlasmaOrdered By: Peter Ahumada on 05-25-2023 Calcium [Mass/Vol] 8.8 mg/dL 8.6-10.3 [facility] Carbon dioxide, total [Moles /volume] in Serum or PlasmaOrdered By: Peter Ahumada on 05-25-2023 CO2 [Moles/Vol] 29.9 mmol/L 21.0-31.0 [facility] Chloride [Moles/volume] in S renetta or PlasmaOrdered By: Peter Ahumada on 05-25-2023 Chloride [Moles/Vol] 107 mmol/L 98-107 [facility] [place] Cholesterol [Mass/volume] in Serum or PlasmaOrdered By: Peter Ahumada on 05-25-2023 Cholesterol [Mass/Vol] 181 mg/dL 140-200 [facility] Comment on above: Chol less than 200 m g/dl low riskChol 201-239 mg/dl borderline riskChol 240 mg/dl and greater high risk Cholesterol in LDL Calc [Mas s/Vol]Ordered By: Peter Ahumada on 05-25-2023 Cholesterol in LDL [Mass/Vol] 115 mg/dL 0-100 [facility] Comment on above: LDL ATP III CLASSIFI CATIONLDL less than 100 mg/dL OptimalLDL 100-129 mg/dL Near or above optimalLDL 130-159 mg/dL Borderline highLDL 160-189 mg/dL HighLDL greater than 189 mg/dL Very high Cholesterol in VLDL Calc [Ma ss/Vol]Ordered By: Peter Ahumada on 05-25-2023 Cholesterol in VLDL [Mass/Vol] 22 mg/dL [facility] Creatinine [Mass/volume] in Serum or PlasmaOrdered By: Peter Ahumada on 05-25-2023 Creatinine [Mass/Vol] 0.59 mg/dL 0.60-1.20 [facility] Eosinophils Auto (Bld) [#/Vo l]Ordered By: Peter Ahumada on 05-25-2023 Eosinophils (Bld) [#/Vol] 0.1 10*3/uL 0.0-0.45 [facility] Eosinophils/100 WBC Auto (Bl d)Ordered By: Peter Ahumada on 05-25-2023 Eosinophils/100 WBC (Bld) 1.9 % . [facility] Erythrocyte distribution wid th Auto (RBC) [Ratio]Ordered By: Peter Ahumada on 05-25-2023 Erythrocyte distribution width (RBC) [Ratio] 13.7 % 11.9-15.3 [facility] Globulin Calc (S) [Mass/Vol] Ordered By: Peter Ahumada on 05-25-2023 Globulin (S) [Mass/Vol] 2.7 g/dL [facility] Glucose [Mass/volume] in Ser um or PlasmaOrdered By: Peter Ahumada on 05-25-2023 Glucose [Mass/Vol] 87 mg/dL 70-100 [facility] Comment on above: ADA recommended [...] from glycated hemoglobin (Bld) [Mass/Vol] 126 mg/dL [facility] Hematocrit Auto (Bld) [Volum e fraction]Ordered By: Peter Ahumada on 05-25-2023 Hematocrit (Bld) [Volume fraction] 36.2 % 34.0-46.4 [facility] Hemoglobin A1c percentageOrd ered By: Peter Ahumada on 05-25-2023 HbA1c (Bld) [Mass fraction] 6.0 % 4.3-5.6 [facility] Comment on above: Increased risk for d iabetes: 5.7 - 6.4diabetes: >6.4glycemic control for adults with diabetes: <7.0 Hemoglobin [Mass/volume] in BloodOrdered By: Peter Ahumada on 05-25-2023 Hemoglobin (Bld) [Mass/Vol] 11.8 g/dL 11.8-15.4 [facility] Leukocytes [#/volume] correc bryan for nucleated erythrocytes in Blood by Automated counOrdered By: Peter Ahumada on 05-25-2023 WBC corrected for nucl RBC Auto (Bld) [#/Vol] 6.1 10*3/uL 3.8-11.6 [facility] Lymphocytes Auto (Bld) [#/Vo l]Ordered By: Peter Ahumada on 05-25-2023 Lymphocytes (Bld) [#/Vol] 2.0 10*3/uL 1.00-4.8 [facility] Lymphocytes/100 WBC Auto (Bl d)Ordered By: Peter Ahumada on 05-25-2023 Lymphocytes/100 WBC (Bld) 32.1 % . [facility] MCH Auto (RBC) [Entitic mass ]Ordered By: Peter Ahumada on 05-25-2023 MCH (RBC) [Entitic mass] 27.3 pg 24.7-34.3 [facility] MCHC Auto (RBC) [Mass/Vol]Or dered By: Peter Ahumada on 05-25-2023 MCHC (RBC) [Mass/Vol] 32.7 g/dL 32.0-35.0 [facility] MCV Auto (RBC) [Entitic vol] Ordered By: Peter Ahumada on 05-25-2023 MCV (RBC) [Entitic vol] 83.5 fL 80-100 [facility] Monocytes Auto (Bld) [#/Vol] Ordered By: Peter Ahumada on 05-25-2023 Monocytes (Bld) [#/Vol] 0.3 10*3/uL 0.0-0.8 [facility] Monocytes/100 WBC Auto (Bld) Ordered By: Peter Ahumada on 05-25-2023 Monocytes/100 WBC (Bld) 5.2 % . [facility] Neutrophils Auto (Bld) [#/Vo l]Ordered By: Peter Ahumada on 05-25-2023 Neutrophils (Bld) [#/Vol] 3.6 10*3/uL 1.8-7.7 [facility] Neutrophils/100 WBC Auto (Bl d)Ordered By: Peter Ahumada on 05-25-2023 Neutrophils/100 WBC (Bld) 59.7 % . [facility] No Panel InformationOrdered By: Peter Ahumada on 05-25-2023 Estimated GFR (CKD-EPI) > 60.0 mL/Min [facility] Creatinine Clearance (Chem N/A [facility] Nucleated erythrocytes [Pres ence] in Blood by Automated countOrdered By: Peter Ahumada on 05-25-2023 Nucleated RBC Auto Ql (Bld) 0.1 /100{WBC} 0-0.5 [facility] Platelet mean volume Auto (B ld) [Entitic vol]Ordered By: Peter Ahumada on 05-25-2023 Platelet mean volume (Bld) [Entitic vol] 8.5 fL 6.3-10.7 [facility] Platelets Auto (Bld) [#/Vol] Ordered By: Peter Ahumada on 05-25-2023 Platelets (Bld) [#/Vol] 364 10*3/uL 150-450 [facility] Potassium [Moles/volume] in Serum or PlasmaOrdered By: Peter Ahumada on 05-25-2023 Potassium [Moles/Vol] 4.0 mmol/L 3.5-5.1 [facility] Protein [Mass/volume] in Ser um or PlasmaOrdered By: Peter Ahumada on 05-25-2023 Protein [Mass/Vol] 6.5 g/dL 6.4-8.9 [facility] RBC Auto (Bld) [#/Vol]Ordere d By: Peter Ahumada on 05-25-2023 RBC (Bld) [#/Vol] 4.34 10*6/uL 3.60-5.00 [facility] Serum or plasma albumin/glob ulin mass ratioOrdered By: Peter Ahumada on 05-25-2023 Albumin/Globulin [Mass ratio] 1.4 {ratio} [facility] Serum or plasma anion gap de terminationOrdered By: Peter Ahumada on 05-25-2023 Anion gap [Moles/Vol] 10.1 mmol/L 6.0-15.0 [facility] Serum or plasma high density lipoprotein (HDL) cholesterol measurementOrdered By: Peter Ahumada on 05-25-2023 Cholesterol in HDL [Mass/Vol] 44 mg/dL 23-92 [facility] Comment on above: HDL CHOL ATP-III CLA SSIFICATION Cardiovascular RiskHDL > or equal to 60 mg/dL LOWHDL < 40 mg/dL HIGH Serum or plasma total choles terol/high density lipoprotein (HDL) cholesterol mass ratOrdered By: Peter Ahumada on 05-25-2023 Cholesterol.total/Chol esterol in HDL [Mass ratio] 4.1 {ratio} <5.0 [facility] Sodium [Moles/volume] in Ser um or PlasmaOrdered By: Peter Ahumada on 05-25-2023 Sodium [Moles/Vol] 143 mmol/L 136-145 [facility] Thyrotropin [Units/volume] i n Serum or PlasmaOrdered By: Peter Ahumada on 05-25-2023 TSH Qn 0.73 m[IU]/L 0.45-5.33 [facility] Thyroxine (T4) free [Mass/vo lume] in Serum or PlasmaOrdered By: Peter Ahumada on 05-25-2023 Free T4 [Mass/Vol] 0.79 ng/dL 0.61-1.12 [facility] Triglyceride [Mass/volume] i n Serum or PlasmaOrdered By: Peter Ahumada on 05-25-2023 Triglyceride [Mass/Vol] 112 mg/dL 0-149 [facility] Comment on above: TRIG ATP III CLASSIF ICATIONTRIG less than 150 mg/dL NormalTRIG 150-199 mg/dL Borderline highTRIG 200-500 mg/dL High TRIG greater than 500 mg/dL Very highStandard traceable to the Center for Disease Conrtrol and Prevention (CDC) test method. Urea nitrogen [Mass/volume] in Serum or PlasmaOrdered By: Peter Ahumada on 05-25-2023 Urea nitrogen [Mass/Vol] 10 mg/dL 7-25 [facility] WBC Auto (Bld) [#/Vol]Ordere d By: Peter Ahumada on 05-25-2023 WBC (Bld) [#/Vol] 6.1 10*3/uL 3.8-11.6 [facility] Thyrotropin [Units/volume] i n Serum or PlasmaOrdered By: Peter Ahumada on 03-19-2023 TSH Qn 2.20 m[IU]/L 0.45-5.33 [facility] Thyroxine (T4) free [Mass/vo lume] in Serum or PlasmaOrdered By: Peter Ahumada on 03-19-2023 Free T4 [Mass/Vol] 0.62 ng/dL 0.61-1.12 [facility] Alanine aminotransferase [En zymatic activity/volume] in Serum or PlasmaOrdered By: Alba Marshall on 11-01-2022 ALT [Catalytic activity/Vol] 7 U/L 7-52 [facility] Albumin [Mass/volume] in Ser um or Plasma by Bromocresol green (BCG) dye binding methoOrdered By: Alba Marshall on 11-01-2022 Albumin BCG dye [Mass/Vol] 3.7 g/dL 3.5-5.7 [facility] Alkaline phosphatase [Enzyma tic activity/volume] in Serum or PlasmaOrdered By: Alba Marshall on 11-01-2022 ALP [Catalytic activity/Vol] 47 U/L 34-104 [facility] Aspartate aminotransferase [ Enzymatic activity/volume] in Serum or PlasmaOrdered By: Albayehuda Marshall on 11-01-2022 AST [Catalytic activity/Vol] 12 U/L 13-39 [facility] Automated erythrocytes count in urine sediment (number/area)Ordered By: Alba Marshall on 11-01-2022 RBC Auto (Urine sed) [#/Area] 1-2 [HPF] 0-4 [facility] Comment on above: --- 11/01/22 1049 -- -Ur RBC previously reported as: 1-2 /HPFMicroscopic results may be affected due to low specimen volume. Automated leukocytes count i n urine sediment (number/area)Ordered By: Alba Marshall on 11-01-2022 WBC Auto (Urine sed) [#/Area] 1-2 [HPF] 0-4 [facility] Basophils Auto (Bld) [#/Vol] Ordered By: Albayehuda Marshall on 11-01-2022 Basophils (Bld) [#/Vol] 0.1 10*3/uL 0.0-0.2 [facility] Basophils/100 WBC Auto (Bld) Ordered By: [facility] Rolando on 11-01-2022 Basophils/100 WBC (Bld) 0.9 % . [facility] Bilirubin Test strip Ql (U)O rdered By: Alba Marshall on 11-01-2022 Bilirubin Ql (U) Negative Negative [facility] Bilirubin.direct [Mass/volum e] in Serum or PlasmaOrdered By: [facility] 11-01-2022 Bilirubin.direct [Mass/Vol] 0.10 mg/dL 0.03-0.18 [facility] Bilirubin.total [Mass/volume ] in Serum or PlasmaOrdered By: Alba Wrenimore on 11-01-2022 Bilirubin [Mass/Vol] 0.3 mg/dL 0.3-1.0 [facility] [place] Calcium [Mass/volume] in Ser um or PlasmaOrdered By: Alba Wrenimore on 11-01-2022 Calcium [Mass/Vol] 8.8 mg/dL 8.6-10.3 [facility] Carbon dioxide, total [Moles /volume] in Serum or PlasmaOrdered By: Alba Bullimore on 11-01-2022 CO2 [Moles/Vol] 27.6 mmol/L 21.0-31.0 [facility] Chloride [Moles/volume] in S renetta or PlasmaOrdered By: Alba Bullimore on 11-01-2022 Chloride [Moles/Vol] 105 mmol/L 98-107 [facility] [place] Choriogonadotropin.beta subu nit [Units/volume] in Serum or PlasmaOrdered By: Alba Marshall on 11-01-2022 HCG.beta subunit Qn m[IU]/mL [facility] Comment on above: Approximate Approxim ate hCG Gestational Age Range (mIU/ml) (weeks)0.2-1 5-50 1-2 50-500 2-3 100-5,000 3-4 500-10,000 4-5 1,000-50,000 5-6 10,000-100,000 6-8 15,000-200,000 8-12 10,000-100,000 Color Auto (U)Ordered By: Malgorzata Marshall on 11-01-2022 Color (U) Yellow Yellow [facility] Creatinine [Mass/volume] in Serum or PlasmaOrdered By: Alba Marshall on 11-01-2022 Creatinine [Mass/Vol] 0.60 mg/dL 0.60-1.20 [facility] Eosinophils Auto (Bld) [#/Vo l]Ordered By: Alba Wrenimore on 11-01-2022 Eosinophils (Bld) [#/Vol] 0.2 10*3/uL 0.0-0.45 [facility] Eosinophils/100 WBC Auto (Bl d)Ordered By: Alba Marshall on 11-01-2022 Eosinophils/100 WBC (Bld) 3.0 % . [facility] Erythrocyte distribution wid th Auto (RBC) [Ratio]Ordered By: Alba Marshall on 11-01-2022 Erythrocyte distribution width (RBC) [Ratio] 13.2 % 11.9-15.3 [facility] Globulin Calc (S) [Mass/Vol] Ordered By: Albayehuda Marshall on 11-01-2022 Globulin (S) [Mass/Vol] 3.1 g/dL [facility] Glucose [Mass/volume] in Ser um or PlasmaOrdered By: [facility] on 11-01-2022 Glucose [Mass/Vol] 95 mg/dL 70-100 [facility] Comment on above: ADA recommended refe rence rangeRandom Glucose Reference Range is dependent on time and content of last meal. Glucose of more than 200 mg/dL in a nonstressed, ambulatory subject supports the diagnosis of Diabetes Mellitus. Hematocrit Auto (Bld) [Volum e fraction]Ordered By: Alba Marshall on 11-01-2022 Hematocrit (Bld) [Volume fraction] 36.8 % 34.0-46.4 [facility] Hemoglobin [Mass/volume] in BloodOrdered By: Alba Marshall on 11-01-2022 Hemoglobin (Bld) [Mass/Vol] 12.5 g/dL 11.8-15.4 [facility] Ketones Auto test strip (U) [Mass/Vol]Ordered By: Alba Marshall on 11-01-2022 Ketones (U) [Mass/Vol] Negative Negative [facility] - UrinalysisOrder ed By: Alba Marshall on 11-01-2022 Hyaline casts LM Ql (Urine sed) 0-8 [LPF] 0-8 [facility] Leukocytes [#/volume] correc bryan for nucleated erythrocytes in Blood by Automated counOrdered By: Albayehuda Marshall on 11-01-2022 WBC corrected for nucl RBC Auto (Bld) [#/Vol] 7.8 10*3/uL 3.8-11.6 [facility] Lymphocytes Auto (Bld) [#/Vo l]Ordered By: Alba Bullimore on 11-01-2022 Lymphocytes (Bld) [#/Vol] 1.5 10*3/uL 1.00-4.8 [facility] Lymphocytes/100 WBC Auto (Bl d)Ordered By: Alba Bullimore on 11-01-2022 Lymphocytes/100 WBC (Bld) 19.6 % . [facility] MCH Auto (RBC) [Entitic mass ]Ordered By: Alba Bullimore on 11-01-2022 MCH (RBC) [Entitic mass] 28.3 pg 24.7-34.3 [facility] MCHC Auto (RBC) [Mass/Vol]Or dered By: Alba Bullimore on 11-01-2022 MCHC (RBC) [Mass/Vol] 33.9 g/dL 32.0-35.0 [facility] MCV Auto (RBC) [Entitic vol] Ordered By: Alba Bullimore on 11-01-2022 MCV (RBC) [Entitic vol] 83.3 fL 80-100 [facility] Monocyte distribution width [Entitic volume] in Blood by AutomatedOrdered By: Alba Bullimore on 11-01-2022 Monocyte distribution width Auto (Bld) [Entitic vol] 17.79 % 0.00-20.00 [facility] Monocytes Auto (Bld) [#/Vol] Ordered By: Alba Bullimore on 11-01-2022 Monocytes (Bld) [#/Vol] 0.5 10*3/uL 0.0-0.8 [facility] Monocytes/100 WBC Auto (Bld) Ordered By: Alba Bullimore on 11-01-2022 Monocytes/100 WBC (Bld) 6.9 % . [facility] Neutrophils Auto (Bld) [#/Vo l]Ordered By: Alba Bullimore on 11-01-2022 Neutrophils (Bld) [#/Vol] 5.4 10*3/uL 1.8-7.7 [facility] Neutrophils/100 WBC Auto (Bl d)Ordered By: Alba Bullimore on 11-01-2022 Neutrophils/100 WBC (Bld) 69.6 % . [facility] Nitrite Test strip Ql (U)Ord ered By: Alba Ibrahimore on 11-01-2022 Nitrite Ql (U) Negative Negative [facility] No Panel InformationOrdered By: Alba Holgerimore on 11-01-2022 Estimated GFR (CKD-EPI) > 60.0 mL/Min [facility] Creatinine Clearance (Chem 179.12 [facility] Nucleated erythrocytes [Pres ence] in Blood by Automated countOrdered By: Alba Bullimore on 11-01-2022 Nucleated RBC Auto Ql (Bld) 0.1 /100{WBC} 0-0.5 [facility] Platelet mean volume Auto (B ld) [Entitic vol]Ordered By: Alba Wrenimore on 11-01-2022 Platelet mean volume (Bld) [Entitic vol] 7.5 fL 6.3-10.7 [facility] Platelets Auto (Bld) [#/Vol] Ordered By: Alba Bullimore on 11-01-2022 Platelets (Bld) [#/Vol] 278 10*3/uL 150-450 [facility] Potassium [Moles/volume] in Serum or PlasmaOrdered By: Alba Bullimore on 11-01-2022 Potassium [Moles/Vol] 4.3 mmol/L 3.5-5.1 [facility] Protein Auto test strip (U) [Mass/Vol]Ordered By: Alba Ibrahimore on 11-01-2022 Protein (U) [Mass/Vol] Negative Negative [facility] Protein [Mass/volume] in Ser um or PlasmaOrdered By: Alba Bullimore on 11-01-2022 Protein [Mass/Vol] 6.8 g/dL 6.4-8.9 [facility] RBC Auto (Bld) [#/Vol]Ordere d By: Alba Bullimore on 11-01-2022 RBC (Bld) [#/Vol] 4.41 10*6/uL 3.60-5.00 [facility] Serum or plasma albumin/glob ulin mass ratioOrdered By: Alba Bullimore on 11-01-2022 Albumin/Globulin [Mass ratio] 1.2 {ratio} [facility] Serum or plasma anion gap de terminationOrdered By: Alba Marshall on 11-01-2022 Anion gap [Moles/Vol] 10.7 mmol/L 6[facility] Serum or plasma non-glucuron idated bilirubin measurement (mass/volume)Ordered By: Alba Marshall on 11-01-2022 Bilirubin.indirect [Mass/Vol] 0.2 mg/dL [facility] Sodium [Moles/volume] in Ser um or PlasmaOrdered By: Alba Marshall on 11-01-2022 Sodium [Moles/Vol] 139 mmol/L 136-145 [facility] Specific gravity Auto test s trip (U) [Rel density]Ordered By: Alba Marshall on 11-01-2022 Specific gravity (U) [Rel density] 1.021 1.001-1.030 [facility] Squamous epithelial cells de tection in urine sediment by light microscopyOrdered By: Alba Marshall on 11-01-2022 Epithelial cells.squamous LM Ql (Urine sed) 3-4 [HPF] 0-2 [facility] Urea nitrogen [Mass/volume] in Serum or PlasmaOrdered By: Alba Marshall on 11-01-2022 Urea nitrogen [Mass/Vol] 7 mg/dL 7-25 [facility] Urine bacteria detection by automated methodOrdered By: Albayehuda Marshall on 11-01-2022 Bacteria Auto Ql (U) 1+ None Seen [facility] Comment on above: --- 11/01/22 1050 -- -Ur Bact previously reported as: 1+ H Microscopic results may be affected due to low specimen volume. Urine clarity by refractomet ry automatedOrdered By: Alba Marshall on 11-01-2022 Clarity Refractometry automated (U) Clear Clear [facility] Urine glucose measurement by automated test strip (mass/volume)Ordered By: Alba Marshall on 11-01-2022 Glucose Auto test strip (U) [Mass/Vol] Normal mg/dL Normal [facility] Urine hemoglobin detection b y automated test stripOrdered By: Alba Marshall on 11-01-2022 Hemoglobin Auto test strip Ql (U) 1+ Negative [facility] Urine leukocyte esterase det ection by automated test stripOrdered By: Alba Marshall on 11-01-2022 Leukocyte esterase Auto test strip Ql (U) Negative Negative [facility] Urobilinogen Auto test strip (U) [Mass/Vol]Ordered By: Alba Marshall on 11-01-2022 Urobilinogen (U) [Mass/Vol] Normal mg/dL Normal [facility] WBC Auto (Bld) [#/Vol]Ordere d By: Alab Marshall on 11-01-2022 WBC (Bld) [#/Vol] 7.8 10*3/uL 3.8-11.6 [facility] Yeast detection in urine sed iment by light microscopyOrdered By: Alba Marshall on 11-01-2022 Yeast LM Ql (Urine sed) None seen [HPF] None Seen [facility] Comment on above: --- 11/01/22 [...] on 11-01-2022 pH (U) 6.5 [pH] 5.0-9.0 [facility] Alanine aminotransferase [En zymatic activity/volume] in Serum or PlasmaOrdered By: Peter Ahumada on 10-31-2022 ALT [Catalytic activity/Vol] 8 U/L 7-52 [facility] Albumin [Mass/volume] in Ser um or Plasma by Bromocresol green (BCG) dye binding methoOrdered By: Peter Ahumada on 10-31-2022 Albumin BCG dye [Mass/Vol] 3.8 g/dL 3.5-5.7 [facility] Alkaline phosphatase [Enzyma tic activity/volume] in Serum or PlasmaOrdered By: Peter Ahumada on 10-31-2022 ALP [Catalytic activity/Vol] 49 U/L 34-104 [facility] Aspartate aminotransferase [ Enzymatic activity/volume] in Serum or PlasmaOrdered By: Peter Ahumada on 10-31-2022 AST [Catalytic activity/Vol] 16 U/L 13-39 [facility] Basophils Auto (Bld) [#/Vol] Ordered By: Peter Ahumada on 10-31-2022 Basophils (Bld) [#/Vol] 0.1 10*3/uL 0.0-0.2 [facility] Basophils/100 WBC Auto (Bld) Ordered By: Peter Ahumada on 10-31-2022 Basophils/100 WBC (Bld) 0.9 % . [facility] Bilirubin.total [Mass/volume ] in Serum or PlasmaOrdered By: Peter Ahumada on 10-31-2022 Bilirubin [Mass/Vol] 0.3 mg/dL 0.3-1.0 [facility] [place] Calcium [Mass/volume] in Ser um or PlasmaOrdered By: Peter Ahumada on 10-31-2022 Calcium [Mass/Vol] 9.0 mg/dL 8.6-10.3 [facility] Carbon dioxide, total [Moles /volume] in Serum or PlasmaOrdered By: Peter Ahumada on 10-31-2022 CO2 [Moles/Vol] 25.8 mmol/L 21.0-31.0 [facility] Chloride [Moles/volume] in S renetta or PlasmaOrdered By: Peter Ahumada on 10-31-2022 Chloride [Moles/Vol] 106 mmol/L 98-107 [facility] [place] Cholesterol [Mass/volume] in Serum or PlasmaOrdered By: Peter Ahumada on 10-31-2022 Cholesterol [Mass/Vol] 152 mg/dL 140-200 [facility] Comment on above: Chol less than 200 m g/dl low riskChol 201-239 mg/dl borderline riskChol 240 mg/dl and greater high risk Cholesterol in LDL Calc [Mas s/Vol]Ordered By: Peter Ahumada on 10-31-2022 Cholesterol in LDL [Mass/Vol] 74 mg/dL 0-100 [facility] Comment on above: LDL ATP III CLASSIFI CATIONLDL less than 100 mg/dL OptimalLDL 100-129 mg/dL Near or above optimalLDL 130-159 mg/dL Borderline highLDL 160-189 mg/dL HighLDL greater than 189 mg/dL Very high Cholesterol in VLDL Calc [Ma ss/Vol]Ordered By: Peter Ahumada on 10-31-2022 Cholesterol in VLDL [Mass/Vol] 25 mg/dL [facility] Creatinine [Mass/volume] in Serum or PlasmaOrdered By: Peter Ahumada on 10-31-2022 Creatinine [Mass/Vol] 0.55 mg/dL 0.60-1.20 [facility] Eosinophils Auto (Bld) [#/Vo l]Ordered By: Peter Ahumada on 10-31-2022 Eosinophils (Bld) [#/Vol] 0.2 10*3/uL 0.0-0.45 [facility] Eosinophils/100 WBC Auto (Bl d)Ordered By: Peter Ahumada on 10-31-2022 Eosinophils/100 WBC (Bld) 2.9 % . [facility] Erythrocyte distribution wid th Auto (RBC) [Ratio]Ordered By: Peter Ahumada on 10-31-2022 Erythrocyte distribution width (RBC) [Ratio] 13.3 % 11.9-15.3 [facility] Globulin Calc (S) [Mass/Vol] Ordered By: Peter Ahumada on 10-31-2022 Globulin (S) [Mass/Vol] 2.8 g/dL [facility] Glucose [Mass/volume] in Ser um or PlasmaOrdered By: Peter Ahumada on 10-31-2022 Glucose [Mass/Vol] 98 mg/dL 70-100 [facility] Comment on above: ADA recommended refe rence rangeRandom Glucose Reference Range is dependent on time and content of last meal. Glucose of more than 200 mg/dL in a nonstressed, ambulatory subject supports the diagnosis of Diabetes Mellitus. Hematocrit Auto (Bld) [Volum e fraction]Ordered By: Peter Ahumada on 10-31-2022 Hematocrit (Bld) [Volume fraction] 37.3 % 34.0-46.4 [facility] Hemoglobin [Mass/volume] in BloodOrdered By: Peter Ahumada on 10-31-2022 Hemoglobin (Bld) [Mass/Vol] 12.4 g/dL 11.8-15.4 [facility] Leukocytes [#/volume] correc bryan for nucleated erythrocytes in Blood by Automated counOrdered By: Peter Ahumada on 10-31-2022 WBC corrected for nucl RBC Auto (Bld) [#/Vol] 8.2 10*3/uL 3.8-11.6 [facility] Lymphocytes Auto (Bld) [#/Vo l]Ordered By: Peter Ahumada on 10-31-2022 Lymphocytes (Bld) [#/Vol] 1.8 10*3/uL 1.00-4.8 [facility] Lymphocytes/100 WBC Auto (Bl d)Ordered By: Peter Ahumada on 10-31-2022 Lymphocytes/100 WBC (Bld) 21.7 % . [facility] MCH Auto (RBC) [Entitic mass ]Ordered By: Peter Ahumada on 10-31-2022 MCH (RBC) [Entitic mass] 28.0 pg 24.7-34.3 [facility] MCHC Auto (RBC) [Mass/Vol]Or dered By: Peter Ahumada on 10-31-2022 MCHC (RBC) [Mass/Vol] 33.3 g/dL 32.0-35.0 [facility] MCV Auto (RBC) [Entitic vol] Ordered By: Peter Ahumada on 10-31-2022 MCV (RBC) [Entitic vol] 84.1 fL 80-100 [facility] Monocytes Auto (Bld) [#/Vol] Ordered By: Peter Ahumada on 10-31-2022 Monocytes (Bld) [#/Vol] 0.5 10*3/uL 0.0-0.8 [facility] Monocytes/100 WBC Auto (Bld) Ordered By: Peter Ahumada on 10-31-2022 Monocytes/100 WBC (Bld) 6.2 % . [facility] Neutrophils Auto (Bld) [#/Vo l]Ordered By: Peter Ahumada on 10-31-2022 Neutrophils (Bld) [#/Vol] 5.6 10*3/uL 1.8-7.7 [facility] Neutrophils/100 WBC Auto (Bl d)Ordered By: Peter Ahumada on 10-31-2022 Neutrophils/100 WBC (Bld) 68.3 % . [facility] No Panel InformationOrdered By: Peter Ahumada on 10-31-2022 Estimated GFR (CKD-EPI) > 60.0 mL/Min [facility] Creatinine Clearance (Chem N/A [facility] Nucleated erythrocytes [Pres ence] in Blood by Automated countOrdered By: Peter Ahumada on 10-31-2022 Nucleated RBC Auto Ql (Bld) 0.1 /100{WBC} 0-0.5 [facility] Platelet mean volume Auto (B ld) [Entitic vol]Ordered By: Peter Ahumada on 10-31-2022 Platelet mean volume (Bld) [Entitic vol] 8.8 fL 6.3-10.7 [facility] Platelets Auto (Bld) [#/Vol] Ordered By: Peter Ahumada on 10-31-2022 Platelets (Bld) [#/Vol] 305 10*3/uL 150-450 [facility] Potassium [Moles/volume] in Serum or PlasmaOrdered By: Peter Ahumada on 10-31-2022 Potassium [Moles/Vol] 4.2 mmol/L 3.5-5.1 [facility] Protein [Mass/volume] in Ser um or PlasmaOrdered By: Peter Ahumada on 10-31-2022 Protein [Mass/Vol] 6.6 g/dL 6.4-8.9 [facility] RBC Auto (Bld) [#/Vol]Ordere d By: Peter Ahumada on 10-31-2022 RBC (Bld) [#/Vol] 4.44 10*6/uL 3.60-5.00 [facility] Serum or plasma albumin/glob ulin mass ratioOrdered By: Peter Ahumada on 10-31-2022 Albumin/Globulin [Mass ratio] 1.4 {ratio} [facility] Serum or plasma anion gap de terminationOrdered By: Peter Ahumada on 10-31-2022 Anion gap [Moles/Vol] 11.4 mmol/L 6.0-15.0 [facility] Serum or plasma high density lipoprotein (HDL) cholesterol measurementOrdered By: Peter Ahumada on 10-31-2022 Cholesterol in HDL [Mass/Vol] 53 mg/dL 35-85 [facility] Comment on above: HDL CHOL ATP-III CLA SSIFICATION Cardiovascular RiskHDL > or equal to 60 mg/dL LOWHDL < 40 mg/dL HIGH Serum or plasma total choles terol/high density lipoprotein (HDL) cholesterol mass ratOrdered By: Peter Ahumada on 10-31-2022 Cholesterol.total/Chol esterol in HDL [Mass ratio] 2.9 {ratio} <5.0 [facility] Sodium [Moles/volume] in Ser um or PlasmaOrdered By: Peter Ahumada on 10-31-2022 Sodium [Moles/Vol] 139 mmol/L 136-145 [facility] Thyrotropin [Units/volume] i n Serum or PlasmaOrdered By: Peter Ahumada on 10-31-2022 TSH Qn 0.61 m[IU]/L 0.45-5.33 [facility] Thyroxine (T4) free [Mass/vo lume] in Serum or PlasmaOrdered By: Peter Ahumada on 10-31-2022 Free T4 [Mass/Vol] 0.76 ng/dL 0.61-1.12 [facility] Triglyceride [Mass/volume] i n Serum or PlasmaOrdered By: Peter Ahumada on 10-31-2022 Triglyceride [Mass/Vol] 125 mg/dL 0-149 [facility] Comment on above: TRIG ATP III CLASSIF ICATIONTRIG less than 150 mg/dL NormalTRIG 150-199 mg/dL Borderline highTRIG 200-500 mg/dL High TRIG greater than 500 mg/dL Very highStandard traceable to the Center for Disease Conrtrol and Prevention (CDC) test method. Urea nitrogen [Mass/volume] in Serum or PlasmaOrdered By: Peter Ahumada on 10-31-2022 Urea nitrogen [Mass/Vol] 6 mg/dL 7-25 [facility] WBC Auto (Bld) [#/Vol]Ordere d By: Peter Ahumada on 10-31-2022 WBC (Bld) [#/Vol] 8.2 10*3/uL 3.8-11.6 [facility] Albumin [Mass/volume] in Ser um or PlasmaOrdered By: Peter Ahumada on 04-19-2022 Albumin [Mass/Vol] 3.2 g/dL 3.2-5.5 [facility] Basophils Auto (Bld) [#/Vol] Ordered By: Peter Ahumada on 04-19-2022 Basophils (Bld) [#/Vol] 0.0 10*3/uL 0.0-0.2 [facility] Basophils/100 WBC Auto (Bld) Ordered By: Peter Ahumada on 04-19-2022 Basophils/100 WBC (Bld) 0.7 % . [facility] Blood hemoglobin measurement (mass/volume)Ordered By: Peter Ahumada on 04-19-2022 Hemoglobin (Bld) [Mass/Vol] 12.3 g/dL 11.8-15.4 [facility] Blood leukocytes automated c ount (number/volume)Ordered By: Peter Ahumada on 04-19-2022 WBC (Bld) [#/Vol] 5.9 10*3/uL 4.5-11.0 [facility] Cholesterol [Mass/volume] in Serum or PlasmaOrdered By: Peter Ahumada on 04-19-2022 Cholesterol [Mass/Vol] 159 mg/dL 140-200 [facility] Comment on above: Chol less than 200 m g/dl low riskChol 201-239 mg/dl borderline riskChol 240 mg/dl and greater high risk Cholesterol in LDL Calc [Mas s/Vol]Ordered By: Peter Ahumada on 04-19-2022 Cholesterol in LDL [Mass/Vol] 84 mg/dL 0-100 [facility] Comment on above: LDL ATP III CLASSIFI CATIONLDL less than 100 mg/dL OptimalLDL 100-129 mg/dL Near or above optimalLDL 130-159 mg/dL Borderline highLDL 160-189 mg/dL HighLDL greater than 189 mg/dL Very high Cholesterol in VLDL Calc [Ma ss/Vol]Ordered By: Peter Ahumada on 04-19-2022 Cholesterol in VLDL [Mass/Vol] 22 mg/dL [facility] Creatinine and Glomerular fi ltration rate.predicted panel (S/P/Bld)Ordered By: Peter Ahumada on 04-19-2022 Creatinine [Mass/Vol] 0.58 mg/dL 0.44-1.03 [facility] Eosinophils Auto (Bld) [#/Vo l]Ordered By: Peter Ahumada on 04-19-2022 Eosinophils (Bld) [#/Vol] 0.1 10*3/uL 0.0-0.45 [facility] Eosinophils/100 WBC Auto (Bl d)Ordered By: Peter Ahumada on 04-19-2022 Eosinophils/100 WBC (Bld) 2.4 % . [facility] Erythrocyte distribution wid th Auto (RBC) [Ratio]Ordered By: Peter Ahumada on 04-19-2022 Erythrocyte distribution width (RBC) [Ratio] 13.4 % 11.9-15.3 [facility] Estimated glomerular filtrat ion rate (GFR) non- AmericanOrdered By: Peter Ahumada on 04-19-2022 GFR/1.73 sq M.predicted among non-blacks MDRD (S/P/Bld) [Vol rate/Area] > 60 mL/Min [facility] Globulin Calc (S) [Mass/Vol] Ordered By: Peter Ahumada on 04-19-2022 Globulin (S) [Mass/Vol] 3.1 g/dL [facility] Hematocrit Auto (Bld) [Volum e fraction]Ordered By: Peter Ahumada on 04-19-2022 Hematocrit (Bld) [Volume fraction] 37.1 % 34.0-46.4 [facility] Laboratory - Hematology and Cell countsOrdered By: Peter Ahumada on 04-19-2022 Nucleated RBC/100 WBC (Bld) [Ratio] 0.1 % 0-0.5 [facility] Lymphocytes Auto (Bld) [#/Vo l]Ordered By: Peter Ahumada on 04-19-2022 Lymphocytes (Bld) [#/Vol] 1.7 10*3/uL 1.00-4.8 [facility] Lymphocytes/100 WBC Auto (Bl d)Ordered By: Peter Ahumada on 04-19-2022 Lymphocytes/100 WBC (Bld) 28.8 % . [facility] MCH Auto (RBC) [Entitic mass ]Ordered By: Peter Ahumada on 09-28-2022 MCH (RBC) [Entitic mass] 27.8 pg 24.7-34.3 [facility] MCHC Auto (RBC) [Mass/Vol]Or dered By: Peter Ahumada on 04-19-2022 MCHC (RBC) [Mass/Vol] 33.2 g/dL 32.0-35.0 [facility] MCV Auto (RBC) [Entitic vol] Ordered By: Peter Ahumada on 04-19-2022 MCV (RBC) [Entitic vol] 83.6 fL 80-100 [facility] Monocytes Auto (Bld) [#/Vol] Ordered By: Peter Ahumada on 04-19-2022 Monocytes (Bld) [#/Vol] 0.4 10*3/uL 0.0-0.8 [facility] Monocytes/100 WBC Auto (Bld) Ordered By: Peter Ahumada on 04-19-2022 Monocytes/100 WBC (Bld) 6.6 % . [facility] Neutrophils Auto (Bld) [#/Vo l]Ordered By: Peter Ahumada on 04-19-2022 Neutrophils (Bld) [#/Vol] 3.6 10*3/uL 1.8-7.7 [facility] Neutrophils/100 WBC Auto (Bl d)Ordered By: Peter Ahumada on 04-19-2022 Neutrophils/100 WBC (Bld) 61.5 % . [facility] No Panel InformationOrdered By: Peter Ahumada on 04-19-2022 Estimated GFR () > 60 mL/Min [facility] Comment on above: GFR estimated refere nce range: According to KDOQI guidelines, <60 ml/min/1.73m2 is sufficient to diagnose a patient with chronic kidney disease. Pharmacy Creatinine Clearance (Chem N/A [facility] Platelet mean volume Auto (B ld) [Entitic vol]Ordered By: Peter Ahumada on 04-19-2022 Platelet mean volume (Bld) [Entitic vol] 8.9 fL 6.3-10.7 [facility] Platelets Auto (Bld) [#/Vol] Ordered By: Peter Ahumada on 04-19-2022 Platelets (Bld) [#/Vol] 319 10*3/uL 150-450 [facility] Protein [Mass/volume] in Ser um or PlasmaOrdered By: Peter Ahumada on 04-19-2022 Protein [Mass/Vol] 6.3 g/dL 6.1-7.9 [facility] RBC Auto (Bld) [#/Vol]Ordere d By: Peter Ahumada on 04-19-2022 RBC (Bld) [#/Vol] 4.43 10*6/uL 3.60-5.00 [facility] Serum or plasma alanine ny otransferase measurement without P-5'-P (enzymatic activiOrdered By: Peter Ahumada on 04-19-2022 ALT No additional P-5'-P [Catalytic activity/Vol] 9 U/L 10-60 [facility] Serum or plasma albumin/glob ulin mass ratioOrdered By: Peter Ahumada on 04-19-2022 Albumin/Globulin [Mass ratio] 1.0 {ratio} [facility] Serum or plasma alkaline deirdre sphatase measurement (enzymatic activity/volume)Ordered By: Peter Ahumada on 04-19-2022 ALP [Catalytic activity/Vol] 41 U/L 32-92 [facility] Serum or plasma anion gap de terminationOrdered By: Peter Ahumada on 04-19-2022 Anion gap [Moles/Vol] 13.9 mmol/L 6.0-15.0 [facility] Serum or plasma aspartate am inotransferase measurement (enzymatic activity/volume)Ordered By: Peter Ahumada on 04-19-2022 AST [Catalytic activity/Vol] 15 U/L 10-42 [facility] Serum or plasma calcium scotty urement (mass/volume)Ordered By: Peter Ahumada on 04-19-2022 Calcium [Mass/Vol] 8.8 mg/dL 8.2-10.2 [facility] Serum or plasma chloride francoise surement (moles/volume)Ordered By: Peter Ahumada on 04-19-2022 Chloride [Moles/Vol] 100 mmol/L 95-114 [facility] Serum or plasma glucose scotty urement (mass/volume)Ordered By: Peter Ahumada on 04-19-2022 Glucose [Mass/Vol] 87 mg/dL 70-100 [facility] Comment on above: ADA recommended refe rence rangeRandom Glucose Reference Range is dependent on time and content of last meal. Glucose of more than 200 mg/dL in a nonstressed, ambulatory subject supports the diagnosis of Diabetes Mellitus. Serum or plasma high density lipoprotein (HDL) cholesterol measurementOrdered By: Peter Ahumada on 04-19-2022 Cholesterol in HDL [Mass/Vol] 53 mg/dL 35-85 [facility] Comment on above: HDL CHOL ATP-III CLA SSIFICATION Cardiovascular RiskHDL > or equal to 60 mg/dL LOWHDL < 40 mg/dL HIGH Serum or plasma potassium me asurement (moles/volume)Ordered By: Peter Ahumada on 04-19-2022 Potassium [Moles/Vol] 3.9 mmol/L 3.5-5.1 [facility] Serum or plasma sodium measu rement (moles/volume)Ordered By: Peter Ahumada on 04-19-2022 Sodium [Moles/Vol] 136 mmol/L 136-146 [facility] Serum or plasma total biliru bin measurement (mass/volume)Ordered By: Peter Ahumada on 04-19-2022 Bilirubin [Mass/Vol] 0.4 mg/dL 0.3-1.2 [facility] Serum or plasma total carbon dioxide measurement (moles/volume)Ordered By: Peter Ahumada on 04-19-2022 CO2 [Moles/Vol] 26.0 mmol/L 22.0-30.0 [facility] Serum or plasma total choles terol/high density lipoprotein (HDL) cholesterol mass ratOrdered By: Peter Ahumada on 04-19-2022 Cholesterol.total/Chol esterol in HDL [Mass ratio] 3.0 {ratio} <5.0 [facility] Serum or plasma urea nitroge n measurement (mass/volume)Ordered By: Peter Ahumada on 04-19-2022 Urea nitrogen [Mass/Vol] 5 mg/dL 9- [facility] TSH DL <= 0.005 mIU/L QnOrde red By: Peter Ahumada on 04-19-2022 TSH Qn 1.94 m[IU]/L 0.45-5.33 [facility] Thyroxine (T4) free [Mass/vo lume] in Serum or PlasmaOrdered By: Peter Ahumada on 04-19-2022 Free T4 [Mass/Vol] 0.69 ng/dL 0.61-1.12 [facility] Triglyceride [Mass/volume] i n Serum or PlasmaOrdered By: Peter Ahumada on 04-19-2022 Triglyceride [Mass/Vol] 111 mg/dL 35-149 [facility] Comment on above: TRIG ATP III CLASSIF ICATIONTRIG less than 150 mg/dL NormalTRIG 150-199 mg/dL Borderline highTRIG 200-500 mg/dL High TRIG greater than 500 mg/dL Very highStandard traceable to the Center for Disease Conrtrol and Prevention (CDC) test method. CNOVon 10-13-2021 CNOV Office Visit ([id number] ) -------- DARLING KHANNA ([id number]) 1980 F Date Time Provider Department 10/13/21 1:30 PM KATE DANIEL [id number] During your visit today, we recorded the following information about you: Temperature Pulse Blood pressure Weight 97.7 degrees 68/minute 112/55 115.2 kg Height 1.829 m Kate Daniel MD 10/17/2021 1:50 PM Signed Assessment ESTABLISHED PATIENT Darling Khanna is a 40 year old female with a right posterior liver subcapsular fluid collection ? 03/03/2021: Patient presented to [facility] on 02/08/2021 for 2 days for acute ride sided abdominal/flank pain, right shoulder discomfort and nausea. She was diagnosed with Klebsiella pneumoniae UTI and was discharged with oral keflex and zofran. Patient represented to ER on 02/09/2021 for the continued complaints of pain. ? Referral From:?PCP- Peter Ahumada, DO Reason:?right abdominal pain pain; liver?fluid collection? ? Received Records From:? 02/08/2021 ER Report [facility] 02/09/2021 ER Report [facility] 02/15/2021 PCP Office note ? [...] gradually improving. US of ovaries yesterday at [facility]. Scheduled for upper GI at end of month. Gained?50 pounds since July?(was in [place] for 3 months, drank a lot); diagnosed [...] well. She did spend 3 months in [place] and did not have any issues, hospitalizations [...] which included preparing to see the patient, [id number] patient care and completing clinical documentation. MD Jayne Garrido Ma 10/13/2021 1:33 PM Signed What is the reason for your visit today? Follow up Who is your referring physician? Are you having poor oral intake? NO Have you had unintentional weight loss of 15 lbs/7 Kg in the last 3-6 months? NO Bowels: regular Wound: Temperature: No Drains: No Referring Provider: KATE DANIEL [[id number]] Allergies As of Date: 10/13/2021 Noted Allergy [...] of 05/10 (more content not included)... Normal [facility] Mayela 09-30-2021 CASE Telephone ([id number]) -------- DARLING KHANNA ([id number]) 1980 F Date Time Provider Department 09/30/21 KATE DANIEL [id number] During your visit today, we recorded the following information about you: Sujatha Tomas 09/30/2021 9:00 AM Signed Called patient to reschedule her 10/13 in person to virtual. She would like to keep in person. She also wants to know if a CT or MRI can be ordered of her pancreas abdomen as she hasn't had anything done recently. She can be reached at [phone]. Talat Armendariz RN 10/10/2021 11:29 AM Signed [...] Status:Closed by TALAT ARMENDARIZ RN on 10/10/21 [facility] CNOVon 04-07-2021 CNOV Office Visit ([id number] ) -------- DARLING KHANNA ([id number]) 1980 F Date Time Provider Department 04/07/21 2:30 PM KATE DANIEL [id number] During your visit today, we recorded the following information about you: Temperature Pulse Blood pressure Weight 97.5 degrees 95/minute 136/77 109.3 kg Height 1.829 m Jayne Aguila In 04/07/2021 2:31 PM Signed What is the [...] subcapsular fluid collection 03/03/2021: Patient presented to [facility] on 02/08/2021 for 2 days for acute ride sided abdominal/flank pain, right shoulder discomfort and nausea. She was diagnosed with Klebsiella pneumoniae UTI and was discharged with oral keflex and zofran. Patient represented to ER on 02/09/2021 for the continued complaints of pain. ? Referral From:?PCP- Peter Ahumada, DO Reason:?right abdominal pain pain; liver?fluid collection? ? Received Records From:? 02/08/2021 ER Report [facility] 02/09/2021 ER Report [facility] 02/15/2021 PCP Office note ? [...] gradually improving. US of ovaries yesterday at [facility]. Scheduled for upper GI at end of month. Gained 50 pounds since July (was in [place] for 3 months, drank a lot); diagnosed [...] which included preparing to see the patient, [id number] patient care and completing clinical documentation. Kate Daniel MD Referring Provider: KATE DANIEL [[id number]] Allergies As of Date: 04/07/2021 Noted Allergy [...] 11/26/2017 Visit Notes: >> Jayne Aguila Ma [facility] Apr 07, 2021 2:28 PM Status: Signed What is the reason for your visit today? Follow up Who is your referring physician? Are you having poor oral intake? NO Have you had unintentional weight loss of 15 lbs/7 Kg in the last 3-6 months? NO Bowels: regular Wound: Temperature: No (more content not included)... Normal [facility] CNTRTMon 03-22-2021 CNTRTM Treatment Team (ANSHUL MO) -------- DARLING KHANNA ([id number]) 1980 F Date Time Provider Department 03/22/21 WILLIAM DE LEÓN During your visit today, we recorded the following information about you: William De León MD 03/23/2021 7:25 AM Signed Multidisciplinary Hepatopancreatobiliary AND Upper GI Case Conference -- Consensus Note -- Conference Date: 03/22/2021 Case reviewed with physicians from GI, Surgery, AND Radiology services: -- Surgeons - Lexii Oconnell Augustin -- Gastroenterologists - Baldev Antnoio -- Radiologist - Radha Issue(s) Question(s): - [...] Status:Closed by WILLIAM DE LEÓN on 03/23/21 [facility] CNOVon 03-03-2021 CNOV Office Visit ([id number] ) -------- DARLING KHANNA ([id number]) 1980 F Date Time Provider Department 03/03/21 10:00 AM KATE DANIEL [id number] During your visit today, we recorded the [...] states shortness of breathe at times Kate Dainel MD 03/07/2021 7:33 PM Signed Assessment NEW LIVER CONSULT PATIENT NAME: Darling Khanna REASON FOR CONSULT: Abdominal pain with radiation to right and left shoulder REQUESTING PHYSICIAN: Dr. Ahumada DATE of SERVICE: 03/02/2021 TIME of SERVICE: 9:09 AM PCP: Peter Ahumada DO Chief Complaint: Liver mass, abdominal pain HPI: Darling Khanna is a 40 year old female Patient presented to [facility] on 02/08/2021 for 2 days for [...] ? Received Records From: 02/08/2021 ER Report [facility] 02/09/2021 ER Report [facility] 02/15/2021 PCP Office note Visited [...] gradually improving. US of ovaries yesterday at [facility]. Scheduled for upper GI at end of month. Gained 50 pounds since July (was in [place] for 3 months, drank a lot); diagnosed [...] malignant. Seen [facility] Dr. Haines on [facility], in [facility]; denies chemotherapy or radiation. Hernia repair Social [...] cm (6') (more content not included)... Normal [facility] CNPNon 02-23-2021 CNPN Telephone ([facility]) -------- DARLING KHANNA ([id number]) 1980 F Date Time Provider Department 02/23/21 KATE DANIEL [facility] During your visit today, we recorded the following information about you: Talat Armendariz RN 02/23/2021 10:02 AM Addendum Hepatobiliary Surgery Consult HPI: Patient presented to [facility] on 02/08/2021 for 2 days for [...] collection Received Records From: 02/08/2021 ER Report [facility] 02/09/2021 ER Report [facility] 02/15/2021 PCP Office note Records Review BMI 33 Current OCP Imagin02/08/2021 CT A/P wo IVCON (Report [facility]- report rec'd) - minor basilar atelectasis or scarring - nonspecific lymph nodes - tiny umbilical hernia containing fat - no intra hepatic masses are noted - no bowel or urinary tract obstructions - no acute findings 02/08/2021 Ultrasound RUQ (Report [facility]- report rec'd) - unremarkable - no evidence of gallstones, gallbladder wall thickening, or ductal dilation 02/15/2021 CT A/P w IVCON (Report [facility]- report rec'd) - no acute abdominal or pelvis abnormality - indeterminate liver lesion: ill defined low attenuation lesion measuring at least 2.5cm in the medial segment of the left lobe of the liver posteriorly 02/17/2021 MRI Abdomen w/wo IVCON (Report [facility]- report rec'd) - unremarkable size [...] months 02/22/2021 CT A/P w IVCON (Report [facility]- report rec'd) - 62mm x 20mm lenticular [...] scanned into Epic and imaging downloaded from [facility], please review. Tatyana Kilgore Pss 02/25/2021 9:53 AM Signed Scheduled patient for new consult on 03/03/2021. 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 Reason for Visit: Transfusion Aide - Other [3602] Consult [173] Prescriptions as [...] Status:Closed by TATYANA PEDRO on 02/25/21 Normal [facility] AMYLASEon 02-22-2021 Amylase [Catalytic activity/Vol] 48 U/L Normal 31-110 [facility] Comment on above: Performed By: #### L IPA, CMP, SHAI #### [facility] [address] [id number] Ruy Ayleen CBC AUTO DIFFon 02-22-2021 BASO # 0.1 103/ul Normal 0.0-0.1 [facility] Comment on above: Performed By: #### C BC #### [facility] [address] [place], [place] [id number] Ruy Ayleen Basophils/100 WBC (Bld) 0.7 % Normal 0.2-2.0 [facility] Comment on above: Performed By: #### C BC #### [facility] [address] [place], [place] [id number] Ruy Ayleen EO # 0.1 103/ul Normal 0.0-0.7 [facility] Comment on above: Performed By: #### C BC #### [facility] [address] [place], [place] [id number] Ruy Ayleen Eosinophils/100 WBC (Bld) 1.2 % Normal 0.9-7.0 [facility] Comment on above: Performed By: #### C BC #### [facility] [address] [place], [place] [id number] Ruy Ayleen Erythrocyte distribution width (RBC) [Ratio] 12.6 % Normal 11.0-15.0 [facility] Comment on above: Performed By: #### C BC #### [facility] [address] [id number] Ruy Ayleen Hematocrit (Bld) [Volume fraction] 38.7 % Normal 36.0-48.0 [facility] Comment on above: Performed By: #### C BC #### [facility] [address] [place] [address] Ruyradhames Abbasi Hemoglobin (Bld) [Mass/Vol] 12.6 g/dL Normal 12.0-16.0 [facility] Comment on above: Performed By: #### C BC #### [facility] [address] [place] [address] Ruyradhames Abbasi IG # 0.02 10e3/ul Normal 0.00-0.03 [facility] Comment on above: Performed By: #### C BC #### [facility] [address] [place] [address] Ruy Ayleen IG % 0.2 % Normal 0.0-0.5 [facility] Comment on above: Performed By: #### C BC #### [facility] [address] [place] [address] Ruy Ayleen LYMPH # 2.4 103/ul Normal 1.2-3.8 [facility] Comment on above: Performed By: #### C BC #### [facility] [address] [place] [address] Ruy Abbasi Lymphocytes/100 WBC (Bld) 22.4 % Normal 20.5-60.0 [facility] Comment on above: Performed By: #### C BC #### [facility] [address] [place] [address] Ruy Abbasi MANUAL DIFF REQ NO Normal [facility] Comment on above: Performed By: #### C BC #### [facility] [address] [place] [address] Ruyradhames Abbasi MCH (RBC) [Entitic mass] 27.7 pg Normal 26.7-34.0 [facility] Comment on above: Performed By: #### C BC #### [facility] [address] [place], [place] [id number] Ruyradhames Abbasi MCHC (RBC) [Mass/Vol] 32.6 g/dL Normal 29.9-35.2 [facility] Comment on above: Performed By: #### C BC #### [facility] [address] [place] [address] Ruyradhames Cardozoen MCV (RBC) [Entitic vol] 85.1 fL Normal 81.0-99.0 [facility] Comment on above: Performed By: #### C BC #### [facility] [address] [place], [place] [id number] Ryu Abbasi MONO # 0.7 103/ul Normal 0.3-0.8 [facility] Comment on above: Performed By: #### C BC #### [facility] [address] [place], [place] [id number] Ruy Abbasi Monocytes/100 WBC (Bld) 6.5 % Normal 1.7-12.0 [facility] Comment on above: Performed By: #### C BC #### [facility] [address] [place] [address] uRy Abbasi NEUT # 7.3 103/ul Critically high 1.4-6.5 [facility] Comment on above: Performed By: #### C BC #### [facility] [address] [place] [address] Ruy Abbasi Neutrophils/100 WBC (Bld) 69.0 % Normal 43.0-75.0 [facility] Comment on above: Performed By: #### C BC #### [facility] [address] [place], [place] [id number] Ruy Abbasi Platelet mean volume (Bld) [Entitic vol] 9.3 fL Critically low 9.5-13.5 [facility] Comment on above: Performed By: #### C BC #### [facility] [address] [place], [place] [id number] Ruyradhames Cardozoen PLT 324 103/ul Normal 150-450 [facility] Comment on above: Performed By: #### C BC #### [facility] [address] [place], [place] [id number] Ruy Ayleen RBC 4.55 106/ul Normal 4.20-5.40 [facility] Comment on above: Performed By: #### C BC #### [facility] [address] [place] [address] Ruy Ayleen WBC 10.6 103/ul Normal 4.0-11.0 [facility] Comment on above: Performed By: #### C BC #### [facility] [address] [place], [place] [address] ABD/PELV W CONon 02-23-20 [...] MARINA HERNANDEZ Date: 2021-02-22 03:10 Normal [facility] D-DIMERon 02-22-2021 D-DIMER 0.40 mg/L FEU Normal 0.19-0.50 [facility] Comment on above: Performed By: #### D DIM #### [facility] [address] [place], [place] [address] Ruy Abbasi D-DIMER COMMENTS SEE BELOW Normal [facility] Comment on above: Result Comment: Incr eases [...] hospitalization. Performed By: #### D DIM #### [facility] [address] [place], [place] [id number] Ruy Cardozoen LIPASEon 02-22-2021 Lipase [Catalytic activity/Vol] 120.0 U/L Normal 23.0-300.0 [facility] Comment on above: Performed By: #### L IPA CMP, SHAI #### [facility] [address] [place], [place] [id number] Ruy Cardozoen MONOon 02-22-2021 Monocytes (Bld) [#/Vol] Negative Normal NEGATIVE [facility] Comment on above: Performed By: #### M IGOR #### [facility] [address] [place] [address] Ruy Abbasi OT-CT ABD/PELVIS W CON IMPOR Ton 02-22-2021 OT-CT ABD/PELVIS W CON IMPORT Images were obtained outside of [facility] [id number] Normal [facility] OT-CT ABD/PELVIS W CON IMPORT Images were obtained outside of [facility] [id number] Normal [facility] PREG HCG QUALon 02-22-2021 , QUAL Negative Normal NEGATIVE [facility] Comment on above: Performed By: #### P REG #### [facility] [address] [place] [address] Ruy Abbasi PROF 14(COMP METB)on 021 Albumin [Mass/Vol] 3.2 g/dL Critically low 3.5-5.0 [facility] Comment on above: Performed By: #### L IPA CMP, SHAI #### [facility] [address] [place], [place] [id number] Ruy Abbasi Albumin/Globulin [Mass ratio] 0.7 {ratio} Normal [facility] Comment on above: Performed By: #### L IPA CMP, SHAI #### [facility] [address] [place], [place] [id number] Ruy Ayleen ALP [Catalytic activity/Vol] 54 U/L Normal 38-126 [facility] Comment on above: Performed By: #### L IPA, CMP, SHAI #### [facility] [address] [place] [address] Ruy Ayleen ALT [Catalytic activity/Vol] 11 U/L Normal 9-52 [facility] Comment on above: Performed By: #### L IPA, CMP, SHAI #### [facility] [address] [place] [address] Ruy Ayleen Anion gap [Moles/Vol] 11.6 mmol/L Normal [facility] Comment on above: Performed By: #### L IPA, CMP, SHAI #### [facility] [address] [place] [address] Ruy Ayleen AST [Catalytic activity/Vol] 12 U/L Critically low 14-36 [facility] Comment on above: Performed By: #### L IPA, CMP, SHAI #### [facility] [address] [place] [address] Ruy Ayleen Bilirubin [Mass/Vol] 0.2 mg/dL Normal 0.2-1.3 [facility] Comment on above: Performed By: #### L IPA, CMP, SHAI #### [facility] [address] [place] [address] Ruy Ayleen Calcium [Mass/Vol] 9.2 mg/dL Normal 8.4-10.2 [facility] Comment on above: Performed By: #### L IPA, CMP, SHAI #### [facility] [address] [place] [address] Ruy Ayleen Chloride [Moles/Vol] 104 mmol/L Normal 98-107 [facility] Comment on above: Performed By: #### L IPA, CMP, SHAI #### [facility] [address] [place] [address] Ruy Ayleen CO2 [Moles/Vol] 29.7 mmol/L Normal 22.0-30.0 [facility] Comment on above: Performed By: #### L IPA, CMP, SHAI #### [facility] [address] [place] [address] Ruy Ayleen Creatinine [Mass/Vol] 0.74 mg/dL Normal 0.52-1.04 [facility] Comment on above: Performed By: #### L IPA CMP, SHAI #### [facility] [address] [place] [address] Ruy Ayleen EGFR-AF TONGAN >60 Normal >=60 [facility] Comment on above: Performed By: #### L IPA CMP, SHAI #### [facility] [address] [place] [address] Ruy Ayleen EGFR-NON AF TONGAN >60 Normal >=60 [facility] Comment on above: Performed By: #### L BRETT CMP, SHAI #### [facility] [address] [place] [address] Ruy Ayleen Globulin (S) [Mass/Vol] 4.4 g/dL Normal [facility] Comment on above: Performed By: #### L IPA CMP, SHAI #### [facility] [address] [place] [address] Ruy Ayleen Glucose [Mass/Vol] 104 mg/dL Normal 74-106 [facility] Comment on above: Performed By: #### L IPA CMP, SHAI #### [facility] [address] [place] [address] Ruy Ayleen Potassium [Moles/Vol] 4.3 mmol/L Normal 3.4-5.0 [facility] Comment on above: Performed By: #### L IPA CMP, SHAI #### [facility] [address] [place] [address] Ruy Ayleen Protein [Mass/Vol] 7.6 g/dL Normal 6.1-8.2 [facility] Comment on above: Performed By: #### L IPA CMP, SHAI #### [facility] [address] [place] [address] Ruy Ayleen Sodium [Moles/Vol] 141 mmol/L Normal 137-145 [facility] Comment on above: Performed By: #### L IPA CMP, SHAI #### [facility] [address] [place] [address] Ruy Abbasi Urea nitrogen [Mass/Vol] 9.0 mg/dL Normal 7.0-17.0 [facility] Comment on above: Performed By: #### L KARLI WEST, SHAI #### [facility] [address] [place] [address] Ruy Abbasi Urea nitrogen/Creatinine [Mass ratio] 12.2 mg/mg Normal [facility] Comment on above: Performed By: #### L KARLI WEST, SHAI #### [facility] [address] [place] [address] Ruy Abbasi MR-MR abdomen wo/w con IMPOR Ton 02-16-2021 MR-MR abdomen wo/w con IMPORT Images were obtained outside of [facility] [id number] Normal [facility] CT-CT abdomen pelvis w con I MPORTon 02-15-2021 CT-CT abdomen pelvis w con IMPORT Images were obtained outside of [facility] [id number] Normal [facility] CT-CT abdomen pelvis wo con IMPORTon 02-08-2021 CT-CT abdomen pelvis wo con IMPORT Images were obtained outside of [facility] [id number] Normal [facility] US-US gall bladder IMPORTon 02-08-2021 US-US gall bladder IMPORT Images were obtained outside of [facility] [id number] Normal [facility] CNOVon 12-28-2020 CNOV Office Visit (LOORRM ) -------- DARLING KHANNA ([id number]) 1980 F Date Time Provider Department 12/28/20 3:30 PM OMEGA MARCANO During your visit today, we recorded the following information about you: Tracey Hair Ma 12/28/2020 4:25 PM Signed Dispensed XL/XXL Reaction brace for the Right knee. Dispensed by [employer] Probation Manager. Instructions were given on application/adjustments. She will f/u as scheduled/prn. Tracey Hair MA,RICARDO Referring Provider: ISHAN YUSUF [[id number]] Allergies As of Date: 12/28/2020 Noted Allergy [...] by TRACEY HAIR MA on 12/28/20 Normal [facility] CNOV Office Visit (LOORRM ) -------- ADOLFOAINSLEYDARLING ([id number]) 1980 F Date Time Provider Department 12/28/20 [...] was performed today. CLINICAL IMPRESSION / ASSESSMENT: (O87.034I) Closed nondisplaced fracture of proximal phalanx of [...] little finger with routine healing, subsequent encounter [O60.977S] Other Visit Diagnosis:Patellofemoral arthralgia of right knee [...] Encounter Status:Closed by ISHAN YUSUF on 12/28/20 [facility] CNOVon 11-30-2020 CNOV Office Visit (LOORRM ) -------- DARLING KHANNA ([id number]) 1980 F Date Time Provider Department 11/30/20 [...] results and radiologist's interpretation, available in the [facility] health record. Images were reviewed with the patient/family members in the office today. My personal interpretation of the performed imaging is healing proximal phalanx fracture CLINICAL IMPRESSION / ASSESSMENT: (Y10.673M) Closed nondisplaced fracture of proximal phalanx of [...] little finger with routine healing, subsequent encounter [X81.667I] Order(s):XR HAND GENERAL 3V PA/LAT/OBL LT [[id number]] Order #: [id number] FUTURE CONSULT TO TRANSACTION PROCESSOR [[id number]] Order #: [id number]: 1 FUTURE Prescriptions as of 11/30/2020 Sig: [...] Status:Closed by ISHAN YUSUF on 11/30/20 Normal [facility] XR HAND 3V PA/LAT/OBL LTon [...] fractures. IMPRESSION: Healing 5th proximal phalanx fracture Gift Shop Clerk: WILBERT Transcribe Date/Time: Nov 30 2020 4:18P Dictated by : JUDITH FUENTES MD This examination was interpreted and the report reviewed and electronically signed by: JUDITH FUENTES MD on Nov 30 2020 4:19PM EST [id number] Normal [facility] XR Hand - left PA and Latera l and Obliqueon 11-30-2020 IMPRESSION: Healing 5th proximal phalanx fracture Gift Shop Clerk: WILBERT Transcribe Date/Time: Nov 30 2020 4:18P [...] No additional fractures. DIVISION OF RADIOLOGY Provider, [facility] - 11/30/2020 * * *Final Report* * [...] IMPRESSION IMPRESSION: Healing 5th proximal phalanx fracture Gift Shop Clerk: PSCB Transcribe Date/Time: Nov 30 2020 4:18P Dictated by : JUDITH FUENTES MD This examination was interpreted and the report reviewed and electronically signed by: JUDITH FUENTES MD on Nov 30 2020 4:19PM EST [facility] Radiology Study observation (narrative) [facility] XR Hand - left PA and Latera l and ObliqueOrdered By: Ccf Provider on 11-30-2020 [facility] CNOVon 11-18-2020 CNOV Office Visit (LOORRM ) -------- DARLING KHANNA ([id number]) 1980 F Date Time Provider Department 11/18/20 [...] results and radiologist's interpretation, available in the [facility] health record. Images were reviewed with the patient/family members in the office today. My personal interpretation of the performed imaging is intra-articular proximal phalanx fracture CLINICAL IMPRESSION / ASSESSMENT: (S68.674Q) Closed nondisplaced fracture of proximal phalanx of [...] [S62.647A] Order(s):XR HAND GENERAL 3V PA/LAT/OBL LT [[id number]] Order #: [id number] FUTURE Prescriptions as of 11/18/2020 Sig: OMEPRAZOLE [...] Encounter Status:Closed by ISHAN YUSUF on 11/18/20 [facility] XR HAND 3V PA/LAT/OBL LTon [...] unchanged. IMPRESSION: Healing fifth proximal phalanx fracture. Gift Shop Clerk: WILBERT Transcribe Date/Time: Nov 18 2020 8:15P Dictated by : ADRIANE CAMPOS MD This examination was interpreted and the report reviewed and electronically signed by: ADRIANE CAMPOS MD on Nov 18 2020 8:27PM EST [id number] Normal [facility] XR Hand - left PA and Latera l and Obliqueon 11-18-2020 IMPRESSION: Healing fifth proximal phalanx fracture. Gift Shop Clerk: WILBERT Transcribe Date/Time: Nov 18 2020 8:15P Dictated by : ADRIANE CAMPOS MD This examination was interpreted and the report reviewed and electronically signed by: ADRIANE CAMPOS MD on Nov 18 2020 8:27PM [facility] DIVISION OF RADIOLOGY * * *Final Report* [...] fracture. Remainder unchanged. DIVISION OF RADIOLOGY Provider, [facility] - 11/18/2020 * * *Final Report* * [...] IMPRESSION IMPRESSION: Healing fifth proximal phalanx fracture. Gift Shop Clerk: WILBERT Transcribe Date/Time: Nov 18 2020 8:15P Dictated by : ADRIANE CAMPOS MD This examination was interpreted and the report reviewed and electronically signed by: ADRIANE CAMPOS MD on Nov 18 2020 8:27PM EST [facility] Radiology Study observation (narrative) [facility] XR Hand - left PA and Latera l and ObliqueOrdered By: Ccf Provider on 11-18-2020 [facility] CNOVon 11-04-2020 CNOV Office Visit (ORAVON ) -------- DARLING KHANNA ([id number]) 1980 F Date Time Provider Department 11/04/20 2:00 PM BOB MILLAN During your visit today, we recorded the following information about you: Bob Millan DO 11/04/2020 2:12 PM Signed [facility] Office Visit Documentation Note [facility] [place] REASON FOR VISIT / CHIEF COMPLAINT SERVICE [...] results and radiologist's interpretation, available in the [facility] health record. Images were reviewed with [...] plan as detailed above. Bob Millan D.O. [facility] [place] Team Physician, [facility] Consulting Physician, [place] [employer] [place], Seasonal Customer Service Associate [phone] Patient verbalizes understanding and agrees with the treatment plan as detailed above. Referring Provider: SELF [[id number]] Allergies As of Date: 11/04/2020 Noted Allergy Reaction INDOMETHACIN 05/10/2018 7 - Swelling Date Reviewed: 11/04/2020 Reviewed by: Juaquin Farmer - Fully Assessed Reason for Visit: New [[id number]] Primary Visit Diagnosis:Closed nondisplaced fracture of proximal [...] for Dr. Yusuf or Shayla Silva in [place]. Follow-up and Disposition History Recorded Encounter Status:Closed by BOB MILLAN DO on 11/04/20 Normal [facility] DX-XR HAND COMPLETE LEFT IMP [facility] 10-30-2020 DX-XR HAND COMPLETE LEFT IMPORT Images were obtained outside of [facility] [id number] Normal [facility] Vital Signs Date Time Vital Sign Value Performing Clinician Facility 12-08-2024 12:48-0400 Body height 182.88 cm Peter Ahumada DO Work Phone: [facility] 12-08-2024 12:48-0400 Body mass index (BMI) [Ratio] 27.3 kg/m2 Peter Ahumada DO Work Phone: [facility] 12-08-2024 12:48-0400 Body weight 91.62 kg Peter Ahumada DO Work Phone: [facility] 12-08-2024 12:48-0400 Diastolic blood pressure 74 mm[Hg] Peter Ahumada DO Work Phone: [facility] 12-08-2024 12:48-0400 Heart rate 76 /min Peter Ahumada DO Work Phone: [facility] 12-08-2024 12:48-0400 Respiratory rate 18 /min Peter Ahumada DO Work Phone: [facility] 12-08-2024 12:48-0400 SaO2% (BldA) [Mass fraction] 96 % Peter Shens DO Work Phone: [facility] 12-08-2024 12:48-0400 Systolic blood pressure 118 mm[Hg] Peter Shens DO Work Phone: [facility] 09-10-2024 15:25-0500 Body height 182.9 cm Alber Itzkowitz DO Work Phone: [facility] 09-10-2024 15:25-0500 Body mass index (BMI) [Ratio] 27.8 kg/m2 Alber Itzkowitz DO Work Phone: [facility] 09-10-2024 15:25-0500 Body weight 92.99 kg Alber Itzkowitz DO Work Phone: [facility] 09-10-2024 15:25-0500 Diastolic blood pressure 70 mm[Hg] Alber Itzkowitz DO Work Phone: [facility] 09-10-2024 15:25-0500 Systolic blood pressure 120 mm[Hg] Alber Itzkowitz DO Work Phone: [facility] 09-09-2024 14:37-0500 Body height 182.88 cm Peter Shens DO Work Phone: [facility] 09-09-2024 14:37-0500 Body mass index (BMI) [Ratio] 27.9 kg/m2 Peter Shens DO Work Phone: [facility] 09-09-2024 14:37-0500 Body weight 93.44 kg Peter Acs DO Work Phone: [facility] 09-09-2024 14:37-0500 Diastolic blood pressure 70 mm[Hg] Peter Shens DO Work Phone: [facility] 09-09-2024 14:37-0500 Heart rate 74 /min Peter Shens DO Work Phone: [facility] 09-09-2024 14:37-0500 SaO2% (BldA) [Mass fraction] 95 % Peter Shens DO Work Phone: [facility] 09-09-2024 14:37-0500 Systolic blood pressure 126 mm[Hg] Peter Shens DO Work Phone: [facility] 06-10-2024 15:00-0500 Body height 182.88 cm Peter Shens DO Work Phone: [facility] 06-10-2024 15:00-0500 Body mass index (BMI) [Ratio] 32.3 kg/m2 Peter Shens DO Work Phone: [facility] 06-10-2024 15:00-0500 Body weight 107.95 kg Peter Shens DO Work Phone: [facility] 06-10-2024 15:00-0500 Diastolic blood pressure 60 mm[Hg] Peter Shens DO Work Phone: [facility] 06-10-2024 15:00-0500 Heart rate 75 /min Peter Shens DO Work Phone: [facility] 06-10-2024 15:00-0500 Respiratory rate 16 /min Peter Shens DO Work Phone: [facility] 06-10-2024 15:00-0500 SaO2% (BldA) [Mass fraction] 96 % Peter Shens DO Work Phone: [facility] 06-10-2024 15:00-0500 Systolic blood pressure 98 mm[Hg] Peter Shens DO Work Phone: [facility] 03-06-2024 14:27-0400 Body height 182.88 cm DO Peter Shens Work Phone: [facility] 03-06-2024 14:27-0400 Body mass index (BMI) [Ratio] 36.4 kg/m2 DO Peter Kuns Work Phone: [facility] 03-06-2024 14:27-0400 Body weight 122.01 kg DO Peter Kuns Work Phone: [facility] 03-06-2024 14:27-0400 Diastolic blood pressure 72 mm[Hg] DO Peter Kuns Work Phone: [facility] 03-06-2024 14:27-0400 Heart rate 77 /min DO Peter Kuns Work Phone: [facility] 03-06-2024 14:27-0400 Respiratory rate 16 /min DO Peter Kuns Work Phone: [facility] 03-06-2024 14:27-0400 SaO2% (BldA) [Mass fraction] 96 % DO Peter Kuns Work Phone: [facility] 03-06-2024 14:27-0400 Systolic blood pressure 118 mm[Hg] DO Peter Kuns Work Phone: [facility] 01-29-2024 14:05-0400 Diastolic blood pressure 78 mm[Hg] DO Peter Kuns Work Phone: [facility] 01-29-2024 14:05-0400 Heart rate 91 /min DO Peter Kuns Work Phone: [facility] 01-29-2024 14:05-0400 Respiratory rate 16 /min DO Peter Kuns Work Phone: [facility] 01-29-2024 14:05-0400 SaO2% (BldA) [Mass fraction] 94 % DO Peter Kuns Work Phone: [facility] 01-29-2024 14:05-0400 Systolic blood pressure 124 mm[Hg] DO Peter Kuns Work Phone: [facility] 01-29-2024 13:05-0400 Body temperature 97 [degF] DO Peter Ahumada Work Phone: [facility] 01-29-2024 12:42-0400 Inhaled oxygen flow rate 8 L/min DO Peter Shens Work Phone: [facility] 01-29-2024 11:44-0400 Body height 182.88 cm DO Peter Ahumada Work Phone: [facility] 01-29-2024 11:44-0400 Body mass index (BMI) [Ratio] 36.5 kg/m2 DO Peter Ahumada Work Phone: [facility] 01-29-2024 11:44-0400 Body weight 122.2 kg DO Peter Ahumada Work Phone: [facility] 12-31-2023 07:25-0400 Body height 2194.56 cm DO Peter Ahumada Work Phone: [facility] 12-31-2023 07:25-0400 Body mass index (BMI) [Ratio] 0.2 kg/m2 DO Peter Ahumada Work Phone: [facility] 12-31-2023 07:25-0400 Body weight 122.46 kg DO Peter Ahumada Work Phone: [facility] 12-31-2023 07:25-0400 Diastolic blood pressure 80 mm[Hg] DO Peter Ahumada Work Phone: [facility] 12-31-2023 07:25-0400 Heart rate 65 /min DO Peter Shens Work Phone: [facility] 12-31-2023 07:25-0400 Respiratory rate 16 /min DO Peter Shens Work Phone: [facility] 12-31-2023 07:25-0400 SaO2% (BldA) [Mass fraction] 97 % DO Peter Shens Work Phone: [facility] 12-31-2023 07:25-0400 Systolic blood pressure 118 mm[Hg] DO Peter Kuns Work Phone: [facility] 12-27-2023 14:20-0400 Body height 182.88 cm DO Peter Kuns Work Phone: [facility] 12-27-2023 14:20-0400 Body mass index (BMI) [Ratio] 37.3 kg/m2 DO Peter Kuns Work Phone: [facility] 12-27-2023 14:20-0400 Body weight 124.73 kg DO Peter Kuns Work Phone: [facility] 12-27-2023 14:20-0400 Diastolic blood pressure 70 mm[Hg] DO Peter Kuns Work Phone: [facility] 12-27-2023 14:20-0400 Heart rate 86 /min DO Peter Kuns Work Phone: [facility] 12-27-2023 14:20-0400 Respiratory rate 16 /min DO Peter Kuns Work Phone: [facility] 12-27-2023 14:20-0400 SaO2% (BldA) [Mass fraction] 96 % DO Peter Acs Work Phone: [facility] 12-27-2023 14:20-0400 Systolic blood pressure 116 mm[Hg] DO Peter Kuns Work Phone: [facility] 12-17-2023 07:31-0400 Body height 182.88 cm DO Peter Kuns Work Phone: [facility] 12-17-2023 07:31-0400 Body temperature 97.7 [degF] DO Peter Kuns Work Phone: [facility] 12-17-2023 07:31-0400 Body weight 123.9 kg DO Peter Kuns Work Phone: [facility] 12-17-2023 07:31-0400 Diastolic blood pressure 90 mm[Hg] DO Peter Ahumada Work Phone: [facility] 12-17-2023 07:31-0400 Heart rate 88 /min DO Peter Ahumada Work Phone: [facility] 12-17-2023 07:31-0400 Respiratory rate 20 /min DO Peter Ahumada Work Phone: [facility] 12-17-2023 07:31-0400 SaO2% (BldA) [Mass fraction] 97 % DO Peter Ahumada Work Phone: [facility] 12-17-2023 07:31-0400 Systolic blood pressure 143 mm[Hg] DO Peter Ahumada Work Phone: [facility] 06-08-2023 10:30-0500 Body height 182.88 cm Peter hSenshira Other [employer] Other 06-08-2023 10:30-0500 Body mass index (BMI) [Ratio] 34.91 kg/m2 Peter Shenshira Other [employer] Other 06-08-2023 10:30-0500 Body weight 116.76 kg Peter Blake Other [employer] Other 06-08-2023 10:30-0500 Diastolic blood pressure 82 mm[Hg] Peter Shenshira Other [employer] Other 06-08-2023 10:30-0500 Respiratory rate 16 /min Peter Blake Other [employer] Other 06-08-2023 10:30-0500 SaO2% (BldA) [Mass fraction] 98 % Peter Acshira Other [employer] Other 06-08-2023 10:30-0500 Systolic blood pressure 126 mm[Hg] Peter Ahumada Other [employer] Other 05-24-2023 15:00-0400 Body height 182.88 cm Peter Ahumada Other [employer] Other 05-24-2023 15:00-0400 Body mass index (BMI) [Ratio] 35.12 kg/m2 Peter Ahumada Other [employer] Other 05-24-2023 15:00-0400 Body weight 117.48 kg Peter Ahumada Other [employer] Other 05-24-2023 15:00-0400 Diastolic blood pressure 86 mm[Hg] Peter Ahumada Other [employer] Other 05-24-2023 15:00-0400 Respiratory rate 16 /min Peter Ahumada Other [employer] Other 05-24-2023 15:00-0400 SaO2% (BldA) [Mass fraction] 95 % Peter Ahumada Other [employer] Other 05-24-2023 15:00-0400 Systolic blood pressure 130 mm[Hg] Peter Ahumada Other [employer] Other 03-21-2023 08:30-0400 Body height 182.88 cm Peter Ahumada Other [employer] Other 03-21-2023 08:30-0400 Body mass index (BMI) [Ratio] 34.39 kg/m2 Peter Ahumada Other [employer] Other 03-21-2023 08:30-0400 Body weight 115.03 kg Peter Ahumada Other [employer] Other 03-21-2023 08:30-0400 Diastolic blood pressure 70 mm[Hg] Peter Ahumada Other [employer] Other 03-21-2023 08:30-0400 Respiratory rate 16 /min Peter Ahumada Other [employer] Other 03-21-2023 08:30-0400 SaO2% (BldA) [Mass fraction] 95 % Peter Ahumada Other [employer] Other 03-21-2023 08:30-0400 Systolic blood pressure 124 mm[Hg] Peter Ahumada Other [place] [employer] Other 11-01-2022 13:49-0400 Diastolic blood pressure 90 mm[Hg] DO Peter Acs Work Phone: [facility] 11-01-2022 13:49-0400 Systolic blood pressure 153 mm[Hg] DO Epter Acs Work Phone: [facility] 11-01-2022 13:02-0400 Body temperature 97.6 [degF] DO Peter Kuns Work Phone: [facility] 11-01-2022 13:02-0400 Heart rate 72 /min DO Peter Kuns Work Phone: [facility] 11-01-2022 13:02-0400 Respiratory rate 18 /min DO Peter Kuns Work Phone: [facility] 11-01-2022 13:02-0400 SaO2% (BldA) [Mass fraction] 96 % DO Peter Ahumada Work Phone: [facility] 11-01-2022 08:58-0400 Body height 182.88 cm DO Peter Ahumada Work Phone: [facility] 11-01-2022 08:58-0400 Body weight 117.93 kg DO Peter Ahumada Work Phone: [facility] 05-25-2022 17:00-0400 Body height 182.88 cm Peter Ahumada Other [employer] [facility] [employer] Other 05-25-2022 17:00-0400 Body mass index (BMI) [Ratio] 33.63 kg/m2 Peter Ahumada Other [employer] Other 05-25-2022 17:00-0400 Body weight 112.49 kg Peter Ahumada Other [employer] Other 05-25-2022 17:00-0400 Diastolic blood pressure 74 mm[Hg] Peter Shenshira Other [employer] Other 05-25-2022 17:00-0400 Respiratory rate 16 /min Peter Ahumada Other [employer] Other 05-25-2022 17:00-0400 SaO2% (BldA) [Mass fraction] Peter Ahumada Other [employer] Other 05-25-2022 17:00-0400 Systolic blood pressure 118 mm[Hg] Peterluiza Shenshira Other [employer] Other 04-24-2022 09:15-0400 Body height 182.88 cm Peter Shenshira Other [employer] Other 04-24-2022 09:15-0400 Body mass index (BMI) [Ratio] 33.5 kg/m2 Peterluiza Shenshira Other [employer] Other 04-24-2022 09:15-0400 Body weight 112.04 kg Peter Ahumada Other [employer] Other 04-24-2022 09:15-0400 Diastolic blood pressure 78 mm[Hg] Peter Ahumada Other [employer] Other 04-24-2022 09:15-0400 Respiratory rate 18 /min Peter Ahumada Other [employer] Other 04-24-2022 09:15-0400 SaO2% (BldA) [Mass fraction] 96 % Peter Ahumada Other [employer] Other 04-24-2022 09:15-0400 Systolic blood pressure 124 mm[Hg] Peter Ahumada Other [employer] Other 11-02-2021 12:00-0400 Body height 182.88 cm Peter Ahumada Other [employer] Other 11-02-2021 12:00-0400 Body mass index (BMI) [Ratio] 34.44 kg/m2 Peter Ahumada Other [employer] Other 11-02-2021 12:00-0400 Body weight 115.21 kg Peter Ahumada Other [employer] Other 11-02-2021 12:00-0400 Diastolic blood pressure 66 mm[Hg] Peter Ahumada Other [employer] Other 11-02-2021 12:00-0400 Respiratory rate 16 /min Peter Ahumada Other [employer] Other 11-02-2021 12:00-0400 SaO2% (BldA) [Mass fraction] 97 % Peter Ahumada Other [employer] Other 11-02-2021 12:00-0400 Systolic blood pressure 124 mm[Hg] Peter Ahumada Other [employer] Other 10-17-2021 09:15-0400 Body height 182.88 cm Peter Ahumada Other [employer] Other 10-17-2021 09:15-0400 Body mass index (BMI) [Ratio] 34.2 kg/m2 Peter Ahumada Other [employer] Other 10-17-2021 09:15-0400 Body weight 114.4 kg Peter Ahumada Other [employer] Other 10-17-2021 09:15-0400 Diastolic blood pressure 76 mm[Hg] Peter Ahumada Other [employer] Other 10-17-2021 09:15-0400 Respiratory rate 18 /min Peter Ahumada Other [employer] Other 10-17-2021 09:15-0400 SaO2% (BldA) [Mass fraction] 98 % Peter Ahumada Other [employer] Other 10-17-2021 09:15-0400 Systolic blood pressure 118 mm[Hg] Peter Ahumada Other [employer] Other 10-13-2021 13:28-0400 Body height 182.9 cm Kate Daniel MD Work Phone: [facility] 10-13-2021 13:28-0400 Body temperature 97.7 [degF] Kate Daniel MD Work Phone: [facility] 10-13-2021 13:28-0400 Body weight 115.21 kg Kate Daniel MD Work Phone: [facility] 10-13-2021 13:28-0400 Diastolic blood pressure 55 mm[Hg] Kate Daniel MD Work Phone: [facility] 10-13-2021 13:28-0400 Heart rate 68 /min Kate Daniel MD Work Phone: [facility] 10-13-2021 13:28-0400 SaO2% (BldA) [Mass fraction] 97 % Kate Daniel MD Work Phone: [facility] 10-13-2021 13:28-0400 Systolic blood pressure 112 mm[Hg] Kate Daniel MD Work Phone: [facility] 04-20-2021 08:45-0400 Body height 182.88 cm Peter Ahumada Other [employer] Other 04-20-2021 08:45-0400 Body mass index (BMI) [Ratio] 31.87 kg/m2 Peter Ahumada Other [employer] Other 04-20-2021 08:45-0400 Body weight 106.6 kg Peter Ahumada Other [employer] Other 04-20-2021 08:45-0400 Diastolic blood pressure 74 mm[Hg] Peter Ahumada Other [employer] Other 04-20-2021 08:45-0400 Respiratory rate 18 /min Peter Ahumada Other [employer] Other 04-20-2021 08:45-0400 SaO2% (BldA) [Mass fraction] 96 % Peter Ahumada Other [employer] Other 04-20-2021 08:45-0400 Systolic blood pressure 110 mm[Hg] Peter Ahumada Other [employer] Other Encounters Encounter Date Encounter Type Care Provider Facility Start: 03-16-2025 End: 03-16-2025 ambulatory Christos Manrique MD Facility: [facility] Start: 03-02-2025 End: 03-02-2025 ambulatory Christos Manrique MD Facility: [facility] Start: 01-27-2025 End: 01-27-2025 Patient encounter procedure [facility] Work Phone: Start: 01-27-2025 End: 01-27-2025 ambulatory Peter Ahumada DO Work Phone: [facility] Work Phone: Start: 01-26-2025 End: 01-26-2025 ambulatory Christos Manrique MD Facility:[facility] Start: 12-08-2024 End: 12-08-2024 Patient encounter procedure Peter Liz DO -[facility] [place] Work Phone: Start: 12-08-2024 End: 12-08-2024 ambulatory Christos Manrique MD Facility: [facility] Start: 12-05-2024 End: 12-05-2024 Patient encounter procedure Peter Liz DO -[facility] [place] Work Phone: Start: 12-05-2024 End: 12-05-2024 ambulatory Peter Ahumada Facility:[facility] Start: 10-13-2024 End: 10-13-2024 Postop follow up visit related to original px Alber H Itzkowitz DO Work Phone: [facility] Comment on above: Sebaceous cyst (Prim arvin Dx) Start: 10-13-2024 End: 10-13-2024 ambulatory ALBER H ITZKOWITZ Not Available Start: 09-29-2024 End: 09-29-2024 ambulatory Peter Ahumada DO Work Phone: [facility] Work Phone: Start: 09-29-2024 End: 09-29-2024 Departed Referred Peter Ahumada DO Work Phone: [facility] [place] Work Phone: Start: 09-22-2024 End: 09-22-2024 ambulatory Christos Manrique MD Facility:[facility] Start: 09-10-2024 End: 09-10-2024 Office outpatient visit 15 minutes Alber H Itzkowitz DO Work Phone: [employer] Comment on above: Sebaceous cyst (Prim arvin Dx) Start: 09-10-2024 End: 09-10-2024 ambulatory ALBER H ITZKOWITZ Not Available Start: 09-09-2024 End: 09-09-2024 ambulatory Peter Ahumada DO Work Phone: [facility] Work Phone: Start: 09-09-2024 End: 09-09-2024 Patient encounter procedure Peter Ahumada DO Work Phone: [facility] [place] Work Phone: Start: 09-01-2024 End: 09-01-2024 ambulatory Christos Manrique MD Facility:[facility] [place] Start: 07-17-2024 End: 07-17-2024 ambulatory Robert Martinez Facility:[facility] Start: 07-17-2024 End: 07-17-2024 Discharged Recurring Peter Ahumada DO Work Phone: [facility] [place] Work Phone: Start: 06-23-2024 End: 06-23-2024 ambulatory Christos Manrique MD Facility:[facility] Start: 06-10-2024 End: 06-10-2024 ambulatory Peter Ahumada DO Work Phone: [facility] Work Phone: Start: 06-10-2024 End: 06-10-2024 Patient encounter procedure Peter Ahumada DO Work Phone: [facility] [place] Work Phone: Start: 06-04-2024 End: 06-04-2024 Patient encounter procedure Peter Ahumada DO Work Phone: [facility]-MRI [facility] [place] Work Phone: Start: 06-04-2024 End: 06-04-2024 ambulatory Peter Ahumada DO Work Phone: [facility] Work Phone: Start: 05-22-2024 End: 05-22-2024 Patient encounter procedure Rahul Castillo DO Work Phone: [facility] Comment on above: Lumbosacral radiculo yaritza (Primary Dx) Start: 05-22-2024 End: 05-22-2024 ambulatory RAHUL CASTILLO Not Available Start: 05-22-2024 End: 05-22-2024 Bamboo flowsheet Rahul Castillo DO Work Phone: [facility] Start: 05-22-2024 End: 05-22-2024 Bamboo flowsheet Rahul Castillo DO Work Phone: [facility] Start: 05-19-2024 End: 05-19-2024 ambulatory DO Peter Ahumada Work Phone: [facility] Work Phone: Start: 05-19-2024 End: 05-19-2024 Discharged Recurring DO Peter Ahumada Work Phone: [facility] [place] Work Phone: Start: 03-12-2024 End: 03-12-2024 Patient encounter procedure DO Peter Ahumada Work Phone: [facility]-Ultrasound [facility] [place] Work Phone: Start: 03-12-2024 End: 03-12-2024 ambulatory DO Peter Ahumada Work Phone: [facility] Work Phone: Start: 03-06-2024 End: 03-06-2024 ambulatory DO Peter Ahumada Work Phone: [facility] Work Phone: Start: 03-06-2024 End: 03-06-2024 Patient encounter procedure DO Peter Ahumada Work Phone: [facility] [place] Work Phone: Start: 03-05-2024 End: 03-05-2024 Patient encounter procedure DO Peter Ahumada Work Phone: [facility]-Lab [place] Work Phone: Start: 03-05-2024 End: 03-05-2024 ambulatory DO Peter Ahumada Work Phone: [facility] Work Phone: Start: 02-28-2024 End: 02-28-2024 ambulatory ALBER HAINES Not Available Start: 02-13-2024 End: 02-13-2024 ambulatory DO Peter Ahumada Work Phone: [facility] Work Phone: Start: 02-13-2024 End: 02-13-2024 Patient encounter procedure DO Peter Ahumada Work Phone: [facility] Work Phone: Start: 02-13-2024 End: 02-13-2024 Patient encounter procedure DO Peter Ahumada Work Phone: [facility] Start: 02-13-2024 End: 02-13-2024 ambulatory DO Peter Ahumada Work Phone: [facility] Work Phone: Start: 02-07-2024 End: 02-07-2024 ambulatory ALBER Judd YANCY Not Available Start: 01-29-2024 End: 01-29-2024 Admission to same day surgery center DO Peter Ahumada Work Phone: [facility]gery [facility] [place] Start: 01-29-2024 End: 01-29-2024 ambulatory DO Peter Ahumada Work Phone: [facility] Work Phone: Start: 01-15-2024 End: 01-15-2024 ambulatory DO Peter Ahumada Work Phone: [facility] Work Phone: Start: 01-15-2024 End: 01-15-2024 Departed Referred DO Peter Ahumada Work Phone: [facility]ho[facility]fg[facility] Testing Work Phone: Start: 01-15-2024 End: 01-15-2024 Patient encounter procedure DO Peter Ahumada Work Phone: [facility] Zyd-Vxx-Krxqvjtb Testing Work Phone: Start: 01-14-2024 End: 01-14-2024 ambulatory DO Peter Ahumada Work Phone: [facility] Work Phone: Start: 01-14-2024 End: 01-14-2024 Patient encounter procedure DO Peter Ahumada Work Phone: [facility] Work Phone: Start: 01-14-2024 End: 01-14-2024 ambulatory DO Peter Ahumada Work Phone: [facility] Work Phone: Start: 01-14-2024 End: 01-14-2024 Patient encounter procedure DO Peter Ahumada Work Phone: [facility] Start: 01-03-2024 End: 01-03-2024 ambulatory ALBER HAINES Not Available Start: 12-31-2023 End: 12-31-2023 ambulatory DO Peter Ahumada Work Phone: [facility] Work Phone: Start: 12-31-2023 End: 12-31-2023 Patient encounter procedure DO Peter Ahumada Work Phone: [facility] Work Phone: Start: 12-31-2023 End: 12-31-2023 ambulatory DO Peter Ahumada Work Phone: [facility] Work Phone: Start: 12-31-2023 End: 12-31-2023 Patient encounter procedure DO Peter Ahumada Work Phone: [facility]-Ultrasound [facility] [place] Work Phone: Start: 12-31-2023 End: 12-31-2023 ambulatory DO Peter Ahumada Work Phone: [facility] Work Phone: Start: 12-31-2023 End: 12-31-2023 Patient encounter procedure DO Peter Shens Work Phone: [facility] [place] Work Phone: Start: 12-28-2023 End: 12-28-2023 ambulatory DO Peter Ahumada Work Phone: [facility] Work Phone: Start: 12-28-2023 End: 12-28-2023 Patient encounter procedure DO Peter Ahumada Work Phone: [facility] Work Phone: Start: 12-27-2023 End: 12-27-2023 ambulatory DO Peter Ahumada Work Phone: [facility] Work Phone: Start: 12-27-2023 End: 12-27-2023 Patient encounter procedure DO Peter Ahumada Work Phone: [facility] [place] Work Phone: Start: 12-19-2023 Non-patient / Non-visit DO Terry Ahumada Work Phone: [facility] [place] Work Phone: Start: 12-17-2023 End: 12-17-2023 Emergency department patient visit DO Peter Ahumada Work Phone: [facility]-Emergency Room Work Phone: Start: 12-12-2023 End: 12-12-2023 ambulatory ALBER HAINES Not Available Start: 12-03-2023 End: 12-03-2023 ambulatory DO Peter Ahumada Work Phone: [facility] Work Phone: Start: 12-03-2023 End: 12-03-2023 Patient encounter procedure DO Peter Ahumada Work Phone: [facility] Work Phone: Start: 08-27-2023 End: 08-27-2023 ambulatory Peter Ahumada Other [employer] Other Start: 08-27-2023 Telephone encounter Peter Blake [facility] [place] Start: 08-22-2023 End: 08-22-2023 ambulatory DO Peter Ahumada Work Phone: [facility] Work Phone: Start: 08-22-2023 End: 08-22-2023 Patient encounter procedure DO Peter Ahumada Work Phone: [facility]-Lab [place] Work Phone: Start: 08-20-2023 End: 08-20-2023 ambulatory Peter Acshira Other [employer] Other Start: 08-20-2023 Telephone encounter Peter Ahumada [facility] [place] Start: 08-13-2023 Telephone encounter Peter Blake [facility] [place] Start: 08-13-2023 End: 08-13-2023 ambulatory DO Peter Ahumada Work Phone: [employer] Other Start: 08-13-2023 End: 08-13-2023 Patient encounter procedure DO Peter Ahumada Work Phone: [facility] Work Phone: Start: 08-06-2023 End: 08-06-2023 ambulatory Peter Acshiar Other [employer] Other Start: 08-06-2023 Telephone encounter Peter Ahumada [facility] [place] Start: 06-11-2023 End: 06-11-2023 ambulatory Peter Ahumada Other [employer] Other Start: 06-11-2023 Telephone encounter Peter Ahumada [facility] [place] Start: 06-08-2023 Office outpatient vi sit 25 minutes Peter Ahumada [facility] [place] Start: 06-08-2023 End: 06-08-2023 ambulatory DO Peter Ahumada Work Phone: [facility] Work Phone: Start: 06-08-2023 End: 06-08-2023 Patient encounter procedure DO Peter Ahumada Work Phone: [facility]-XRay [facility] Work Phone: Start: 06-08-2023 End: 06-08-2023 Patient encounter procedure DO [facility] Start: 05-25-2023 End: 05-25-2023 Patient encounter procedure DO Peter Ahumada Work Phone: [facility]-XRay [facility] Work Phone: Start: 05-24-2023 End: 05-24-2023 ambulatory Peter Ahumada Other [employer] Other Start: 05-24-2023 Office outpatient vi sit 25 minutes [facility] Start: 05-24-2023 End: 05-24-2023 Patient encounter procedure DO Peter Ahumada [facility] [place] Work Phone: Start: 03-21-2023 End: 03-21-2023 ambulatory Peter Ahumada Other [employer] Other Start: 03-21-2023 Office outpatient vi sit 15 minutes Peter Ahumada [facility] Family [facility] Start: 03-19-2023 End: 03-19-2023 ambulatory DO Peter Ahumada Work Phone: [facility] Work Phone: Start: 03-19-2023 End: 03-19-2023 Patient encounter procedure DO Peter Ahumada Work Phone: [facility]-Lab [place] Work Phone: Start: 01-15-2023 End: 01-15-2023 ambulatory DO Peter Ahumada Work Phone: [facility] Work Phone: Start: 01-15-2023 End: 01-15-2023 Patient encounter procedure DO Peter Ahumada Work Phone: [facility]-Ultrasound [facility] Start: 01-12-2023 End: 01-12-2023 ambulatory Peter Ahumada Other [employer] Other Start: 01-12-2023 Telephone encounter Peter Ahumada [facility] Start: 11-23-2022 End: 11-23-2022 Patient encounter procedure DO Peter Ahumada Work Phone: [facility]-Ultrasound [facility] [place] Work Phone: Start: 11-01-2022 End: 11-01-2022 Emergency department patient visit DO Peter Ahumada Work Phone: [facility]-Emergency Room Work Phone: Start: 10-31-2022 End: 10-31-2022 ambulatory DO Peter Ahumada Work Phone: [facility] Work Phone: Start: 10-31-2022 End: 10-31-2022 Patient encounter procedure DO Peter Ahumada Work Phone: [facility] [place] Work Phone: Start: 05-25-2022 End: 05-25-2022 Departed Referred DO Peter Ahumada Work Phone: [facility] [place] Start: 05-25-2022 End: 05-25-2022 ambulatory DO Peter Kuns Work Phone: [employer] Other Start: 05-25-2022 Office outpatient vi sit 15 minutes Peter Ahumada [facility] Start: 04-24-2022 End: 04-24-2022 ambulatory Peter Ahumada Other [employer] Other Start: 04-24-2022 Office outpatient vi sit 25 minutes Peterluiza Shens [facility] [place] Start: 04-19-2022 End: 04-19-2022 ambulatory DO Peter Ahumada Work Phone: [facility] Work Phone: Start: 04-19-2022 End: 04-19-2022 Patient encounter procedure DO Peter Ahumada Work Phone: [facility]-Lab [place] Start: 11-15-2021 End: 11-15-2021 ambulatory Peter Ahumada Other [employer] Other Start: 11-15-2021 Telephone encounter Peter Ahumada [facility] [place] Start: 11-02-2021 End: 11-02-2021 ambulatory Peter Ahumada Other [employer] Other Start: 11-02-2021 Office outpatient vi sit 15 minutes Peter Ahumada [facility] [place] Start: 10-17-2021 End: 10-17-2021 ambulatory Peterluiza Shens Other [employer] Other Start: 10-17-2021 Office outpatient vi sit 25 minutes Peterluiza Shens [facility] [place] Start: 10-13-2021 End: 10-13-2021 Patient encounter procedure Kate Daniel MD Work Phone: General Surgery Comment on above: Liver pain (Primary Dx) Start: 04-20-2021 Office outpatient vi sit 25 minutes Peterluiza Shens [facility] Start: 02-22-2021 End: 02-22-[address] PETER AHUMADA Facility:[facility] Start: 11-30-2020 End: 11-30-2020 Subsequent hospital visit by physician Carlos Baker 1 Work Phone: Radiology Comment on above: Closed nondisplaced fracture of proximal phalanx of left little finger, initial encounter [G14.688O] Start: 11-18-2020 End: 11-18-2020 Subsequent hospital visit by physician Carlos Baker 1 Work Phone: Radiology Comment on above: Closed nondisplaced fracture of proximal phalanx of left little finger, initial encounter [X67.307F] Procedures Date Procedure Procedure Detail Performing Clinician [...] P,Tdap,Td Vaccine (2 - Td or Tdap) [facility] Start: 05-22-2024 End: 05-22-2024 Patient encounter procedure 05/22/2024 2:30 PM EDT Procedure Visit [facility] [address] [facility] [address] [place] [id number] Rahul Castillo DO [address] [place] [id number] Arrived [facility] Comment on above: Arrived Start: 03-23-2024 Covid-19 Vaccine () Covid-19 Vaccine () [facility] Start: 03-23-2024 Influenza vaccination Influenz a Vaccine (#1) [facility] Start: 03-05-2024 [facility] Start: 02-13-2024 Plain X-ray of right elbow XR elbow RT 2V [facility] Start: 02-13-2024 XR Elbow - right 2 Views [facility] Start: 01-29-2024 [facility] Start: 01-29-2024 [facility] Start: 01-14-2024 Plain X-ray of right elbow XR elbow RT 2V [facility] Start: 01-14-2024 XR Elbow - right 2 Views [facility] Start: 12-31-2023 Patient referral [facility] Work Phone: Start: 2022 Screening for malign ant neoplasm of breast Mammogram Screening [facility] Start: 03-23-2021 Influenza vaccination INFLUENZA (#1) [facility] Start: 2012 HPV TESTING HPV TESTING [facility] Start: 2003 PAP TESTING PAP TESTING [facility] Start: 2003 Screening for malign ant neoplasm of cervix Cervical Cancer Screening [facility] Start: 2001 Hepatitis B Vaccine (1 of 3 - 19+ 3-dose series) Hepatitis B Vaccine (1 of 3 - 19+ 3-dose series) [facility] Start: 2001 Urine microalbumin profile DTA P,TDAP,TD (1 - Tdap) [facility] Start: 2000 Anxiety Screening Anxiety Screening [facility] Start: 2000 Depression Screening Depression Scre ening [facility] Start: 2000 HEPATITIS C SCREENING HEPATITIS C [facility] Start: 2000 Hepatitis C screening Hepatitis C [facility] Start: 2000 HIV SCREENING HIV SCREENING [facility] Start: 2000 HIV screening HIV Screening [facility] Start: 1994 Adult depression scr eening assessment DEPRESSION SCREENING [facility] Start: 1987 COVID-19 VACCINE (1) COVID-19 VACCIN E (1) [facility] Comprehensive metabo lic 1999 panel - Serum or Plasma [facility] Comprehensive metabo lic 1999 panel - Serum or Plasma [facility] Comprehensive metabo lic 1999 panel - Serum or Plasma [facility] Glucose measurement estimated from glycated hemoglobin [facility] Patient Education [facility] Work Phone: Patient referral [facility] Work Phone: RF Gastrointestinal tract upper Single view W air contrast PO [facility] US Gallbladder [facility] XR Elbow - right GE 3 Views [facility] Immunizations Immunization Date Immunization Notes Care Provider Fa [facility] 12-17-2023 tetanus toxoid, reduced diphtheria toxoid, and acellular pertussis vaccine, adsorbed DO Peter Ahumada Work Phone: [facility] 06-07-2022 influenza, injectable, quadrivalent, preservative free Peter Ahumada Other [facility] 04-09-2020 influenza, seasonal, injectable Peter Ahumada Other [facility] Other 03-10-2019 influenza, seasonal, injectable Patient Objection Peter Ahumada Other [facility] Other 02-18-2018 tetanus toxoid, reduced diphtheria toxoid, and acellular pertussis vaccine, adsorbed Peter Ahumada Other [facility] NEGATED: Highlighted row has not occurred!06-07-2022 influenza, seasonal, injectable Patient Objection Peter Ahumada Other [facility] Other NEGATED: Highlighted row has not occurred!04-09-2020 influenza, seasonal, injectable Peter Ahumada Other [facility] Other NEGATED: Highlighted row has not occurred!03-10-2019 influenza, seasonal, injectable Patient Objection Peter Ahumada Other [facility] Other Payers Date Payer Category Payer Self-pay [id number] 2022 Unknown 2018 Medicaid [employer] [id number] 2018-Present [phone] [address] [place] [address] Medicaid [id number] 2018 Medicaid [employer]ICAID [id number] 2018-2022 [address] [place] [address] Medicaid [id number] 2018 Private Health Insurance [facility] MEDICAID [id number] 2018 Medicaid [id number] 1982 Unknown [id number] 2.16.840.1.791779.3.579.2 .593 1982 Unknown [id number] 2.16.840.1.983734.3.579.2 .1258 1982 Unknown [id number] 2.16.840.1.506289.3.579.2 .1258 1982 Unknown [id number] 2.16.840.1.008169.3.579.2 .1258 1982 Unknown [id number] 2.16.840.1.851871.3.579.2 .1258 1982 Unknown [id number] 2.16.840.1.299822.3.579.2 .1258 1982 Unknown [id number] 2.16.840.1.608784.3.579.2 .1258 1982 Unknown [id number] 2.16.840.1.771969.3.579.2 .1258 1982 Unknown [id number] 2.16.840.1.037697.3.579.2 .1982 Unknown [id number] 2.16.840.1.245631.3.579.2 .1982 Unknown [id number] 2.16.840.1.268461.3.579.2 .1982 Unknown [id number] 2.16.840.1.395665.3.579.2 .1982 Unknown [id number] 2.16.840.1.083180.3.579.2 .1982 Unknown [id number] 2.16.840.1.117369.3.579.2 .196 1982 Unknown [id number] 2.16.840.1.349883.3.579.2 .196 1959 Unknown [id number] Unknown [id number] Unknown [id number] 2.16.840.1.517901.3.579.2 .531 Unknown [id number] 2.16.840.1.131480.3.579.2 .531 Unknown [id number] 2.16.840.1.130912.3.579.2 .531 Unknown [id number] 2.16.840.1.882795.3.579.2 .531 Unknown [id number] 2.16.840.1.142684.3.579.2 .531 Unknown [id number] 2.16.840.1.521050.3.579.2 .531 Unknown [id number] 2.16.840.1.796015.3.579.2 .531 Unknown [id number] 2.16.840.1.214400.3.579.2 .531 Unknown [id number] 2.16.840.1.983568.3.579.2 .531 Social History Date Type Detail Facility Start: 03-03-2021 End: 09-09-2024 Tobacco smoking status NHIS Ex-smoker [facility] Work Phone: End: 06-22-2006 History of tobacco use Current smoker [facility] Work Phone: Start: 03-03-2021 End: 01-03-2024 Tobacco use and exposure Smokeless tobacco non-user [facility] Work Phone: Start: 10-13-2021 Alcohol intake Current drinker of alcohol (finding) [facility] Start: 03-03-2021 History SDOH Alcohol Comment occ [facility] Start: 03-03-2021 Tobacco Comment Smoked 1 pack a week, quit in 2005, can't remember start date [facility] Start: 1980 Sex Assigned At Not on file [facility] Start: 06-30-2020 End: 09-10-2024 Sex Assigned At [facility] Other Start: 11-25-2015 End: 02-15-2021 Tobacco smoking status NHIS Never smoked tobacco (finding) [facility] Start: 1980 Sex Assigned At Female [facility] Start: 11-25-2015 Alcoholic beverage intake Not Asked [facility] Start: 06-30-2020 End: 09-10-2024 History of Social function [facility] National Score (1-10 0), lower number is lower risk Not on file [facility] Start: 10-19-2020 End: 11-30-2020 Exposure to SARS-CoV-2 (event) Not sure [facility] End: 06-22-2006 History of tobacco use Cigarette Smoker [facility] Start: 02-04-2024 End: 09-30-2024 Alcoholic beverage intake Ex-drinker (finding) [facility] Start: 01-25-2023 Tobacco Comment Quit smoking 10 years ago [facility] Start: 01-25-2023 Alcohol Comment caffeine 1-2 cups/day [facility] Start: 01-18-2023 Gender identity Identifies as female gender (finding) [facility] Start: 01-18-2023 Sexual orientation Heterosexual (finding) [facility] Start: 06-05-2024 End: 09-30-2024 Sex Female (finding) [facility] Medical Equipment Procedure Code Equipment [...] recorder, note dictated by Dr. Peter Ahumada [facility] Work Phone: [phone] 340-371503-24-2025 History of Present illness Narrative* Alber Haines [...] cyst. I'll seeher PRN documented [facility] [id number] History of Present illness Narrative* Alber Haines [...] 90 mcg/act inhaler Every 4 hours HYDROcodone-acetaminophen ([place]) 5-325 MG tablet TAKE 1 TABLET BY [...] like to schedule it. documented in this [facility]02-18-2025 Evaluation note* Author Hyacinth Hutton [facility] Authored September 09, 2024 3:43pm The above note written by SIOMARA Bolden acting as human recorder, note dictated by Dr. Peter Ahumada. [facility] Work Phone: [phone] 569-876310-31-2024 History of Present illness Narrative* CESAR Rich - 05/22/2024 2:30 PM EDT Images from the original note were not included. Reason for Appointment: EMG Patient: Darling Khanna : 1980 EMG Computer: Picse[employer] Referring Physician: Dr. 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 No hxof DM. Not on blood thinners. Comments: Procedure was explained to the patient who expressed understanding. Patient appeared to have tolerated the test well despite some discomfort due to the nature of the test. documented in this [facility]08-15-2024 Evaluation note* Author Hyacinth Hutton [facility] Authored March 06, 2024 2: 47pm The above note written by Thuan STRINGER acting as human recorder, note dictated by Dr.Bryan Ahumada. [facility] Work Phone: [phone] Evaluation note* Encounter Date Diagnosis Assessment Notes Treatment Notes Treatment Clinical Notes Jul, Abnormal mammogram of left breast (ICD-10 - R92.8) [facility] Other 01-15-2024 Evaluation note* Encounter Date Diagnosis Assessment Notes Treatment Notes Treatment Clinical Notes Jul, Abnormal mammogram (ICD-10 - R92.8) [place] [employer] Other 11-17-2023 Evaluation note* Encounter Date Diagnosis [...] modification. May, Acute bronchitis (ICD-10 - J20.9) [facility] Other 11-02-2023 Evaluation note* Encounter Date Diagnosis [...] exercise regimen; we will continue to monitor. [facility] Other 08-30-2023 Evaluation note* Encounter Date Diagnosis [...] been ordered to use for allergic reaction. [facility] Other 06-23-2023 Evaluation note* Encounter Date Diagnosis Assessment Notes Treatment Notes Treatment Clinical Notes Dec, Mass of upper outer quadrant of left breast (ICD-10 - N63.21) [facility] Other 11-03-2022 Evaluation note* Encounter Date Diagnosis [...] sent to the lab to determine pathology. [facility] Other 10-03-2022 Evaluation note* Encounter Date Diagnosis [...] excisional biopsy. Apr, Hyperlipidemia (ICD-10 - E78.5) [facility] Other 04-13-2022 Evaluation note* Encounter Date Diagnosis Assessment Notes Treatment Notes Treatment Clinical Notes Oct, Neoplasm of uncertain behavior of skin (ICD-10 - D48.5) The patient does have three lesions located on her left lateral calf, right upper thigh, and left vertex region of the scalp that are red, inflammed, and are abnormally shaped that were removed via shave and sent for pathology. [facility] Other 03-28-2022 Evaluation note* Encounter Date Diagnosis [...] eye. These will be removed with hyfrecator. [facility] Other 03-24-2022 NoteHNO ID: [id number] Author: Kate Daniel MD Service: ? Author Type: Physician Type: Progress Notes Filed: 10/17/2021 1:50 PM Note Text: Assessment ESTABLISHED PATIENT Darling Khanna is a 40 year old female with a right posterior liver subcapsular fluid collection ? 03/03/2021: Patient presented to [facility] on 02/08/2021 for 2 days for acute ride sided abdominal/flank pain, right shoulder discomfort and nausea. She was diagnosed with Klebsiella pneumoniae UTI and was discharged with oral keflex and zofran. Patient represented to ER on 02/09/2021 for the continued complaints of pain. ? Referral From:?PCP- Peter Ahumada, DO Reason:?right abdominal pain pain; liver?fluid collection? ? Received Records From:? 02/08/2021 ER Report [facility] 02/09/2021 ER Report [facility] 02/15/2021 PCP Office note ? [...] gradually improving. US of ovaries yesterday at [facility]. Scheduled for upper GI at end of month. Gained?50 pounds since July?(was in [place] for 3 months, drank a lot); diagnosed [...] well. She did spend 3 months in [place] and did not have any issues, hospitalizations [...] which included preparing to see the patient, [id number] patient care and completing clinical documentation. Kate Daniel [facility]03-24-2022 Nurse Note* Jayne Aguila Ma - 10/13/2021 1:32 PM EDT What is the reason for your visit today? Follow up Who is your referring physician? Are you having poor oral intake? NO Have you had unintentional weight loss of 15 lbs/7 Kg in the last 3-6 months? NO Bowels: regular Wound: Temperature: No Drains: No [facility] History of Present illness Narrative* Kate Daniel MD - 10/13/2021 1:30 PM EDT Assessment ESTABLISHED PATIENT Darling Khanna is a 40 year old female with a right posterior liver subcapsular fluid collection 03/03/2021: Patient presented to [facility] on 02/08/2021 for 2 days for [...] collection Received Records From: 02/08/2021 ER Report [facility] 02/09/2021 ER Report [facility] 02/15/2021 PCP Office note Visited [...] gradually improving. US of ovaries yesterday at [facility]. Scheduled for upper GI at end of month. Gained 50 pounds since July (was in [place] for 3 months, drank a lot); diagnosed [...] well. She did spend 3 months in [place] and did not have any issues, hospitalizations [...] which included preparing to see the patient, [id number] patient care and completing clinical documentation. Kate Daniel MD [facility] Evaluation note* Encounter Date Diagnosis Assessment [...] under 200lbs. We will continue to monitor. [facility] Other 09-16-2021 NoteHNO ID: [id number] Author: Kate Daniel MD Service: ? Author Type: Physician Type: Progress Notes Filed: 04/11/2021 3:19 PM Note Text: Assessment ESTABLISHED PATIENT Darling Khanna is a 40 year old female with a right posterior liver subcapsular fluid collection 03/03/2021: Patient presented to [facility] on 02/08/2021 for 2 days for acute ride sided abdominal/flank pain, right shoulder discomfort and nausea. She was diagnosed with Klebsiella pneumoniae UTI and was discharged with oral keflex and zofran. Patient represented to ER on 02/09/2021 for the continued complaints of pain. ? Referral From:?PCP- Peter Ahumada, DO Reason:?right abdominal pain pain; liver?fluid collection? ? Received Records From:? 02/08/2021 ER Report [facility] 02/09/2021 ER Report [facility] 02/15/2021 PCP Office note ? [...] gradually improving. US of ovaries yesterday at [facility]. Scheduled for upper GI at end of month. Gained 50 pounds since July (was in [place] for 3 months, drank a lot); diagnosed [...] which included preparing to see the patient, [id number] patient care and completing clinical documentation. Kate Daniel [facility]09-01-2021 NoteHNO ID: [id number] Author: William De León MD Service: ? [...] findings to suggest etiology Pre-conference plan (from [employer]): - Observation and serial imaging Imaging Review: - January 2021 - CT Abd/Pelvis and MRI Final Consensus Recommendation(s): - No clear etiology of right posterior subcapsular fluid collection - Fluid consistency is not consistent with a hematoma - No underlying masses or intrinsic liver pathology Final recommendation(s) differ from pre-conference plan? (Y/N) - No William De León MD [facility] NoteHNO ID: [id number] Author: Kate Daniel MD Service: ? Author [...] 40 year old female Patient presented to [facility] on 02/08/2021 for 2 days for [...] ? Received Records From: 02/08/2021 ER Report [facility] 02/09/2021 ER Report [facility] 02/15/2021 PCP Office note Visited [...] gradually improving. US of ovaries yesterday at [facility]. Scheduled for upper GI at end of month. Gained 50 pounds since July (was in [place] for 3 months, drank a lot); diagnosed [...] malignant. Seen by Dr. Haines on [facility], in [facility]; denies chemotherapy or radiation. Hernia repair Social [...] rhythm. Abdomen: Abdomen so (more content not included)...[facility] 12-28-2020 NoteHNO ID: [id number] Author: Tracey Hair Ma Service: ? Author Type: ? Type: Progress Notes Filed: 12/28/2020 4:25 PM Note Text: Dispensed XL/XXL Reaction brace for the Right knee. Dispensed by [employer]. Instructions were given on application/adjustments. She will f/u as scheduled/prn. Tracey Hair MA,[facility] 12-28-2020 NoteHNO ID: [id number] Author: Ishan Yusuf, DO Service: ? Author [...] was performed today. CLINICAL IMPRESSION / ASSESSMENT: (S62.021D) Closed nondisplaced fracture of proximal phalanx of [...] PT if not improving Procedures Ishan Yusuf, [facility]05-11-2021 NoteHNO ID: [id number] Author: Ishan Yusuf, DO Service: ? Author [...] results and radiologist's interpretation, available in the [facility] health record. Images were reviewed with the patient/family members in the office today. My personal interpretation of the performed imaging is healing proximal phalanx fracture CLINICAL IMPRESSION / ASSESSMENT: (S62.934A) Closed nondisplaced fracture of proximal phalanx of left little finger, initial encounter (primary encounter diagnosis) PLAN: Start weaning out of the splint at this time Can start OT at this time ROM as tolerated Follow-up in 3-4 weeks Procedures Ishan Yusuf, [facility]05-11-2021 NoteHNO ID: [id number] Author: RT Suzanna(R) Service: ? Author Type: Call Person Type: Progress Notes Filed: 11/30/2020 3:44 PM [...] BY: RT Suzanna(R) November 30, 2020 3:43 [facility]04-29-2021 NoteHNO ID: [id number] Author: RT Victor M(R) Service: ? Author Type: Call Person Type: Progress Notes Filed: 11/18/2020 3:47 PM [...] RT Victor M(R) November 18, 2020 3:45 [facility]04-29-2021 NoteHNO ID: [id number] Author: Ishan Yusuf, DO Service: ? Author [...] results and radiologist's interpretation, available in the [facility] health record. Images were reviewed with the patient/family members in the office today. My personal interpretation of the performed imaging is intra-articular proximal phalanx fracture CLINICAL IMPRESSION / ASSESSMENT: (E27.424B) Closed nondisplaced fracture of proximal phalanx of left little finger, initial encounter (primary encounter diagnosis) PLAN: Placed her in aluminum splint Will discuss case with Dr. [place] due to some progression of depression Follow-up accordingly [facility] NoteHNO ID: [id number] Author: Bob Millan Service: ? Author Type: Physician Type: Progress Notes Filed: 11/04/2020 2:12 PM Note Text: [facility] Office Visit Documentation Note [facility] [place] REASON FOR VISIT / CHIEF COMPLAINT SERVICE [...] results and radiologist's interpretation, available in the [facility] health record. Images were reviewed with the patient/family members in the office today. My personal interpretation of the performed imaging is Has IA prox phalanx fracture at PIP ASSESSMENT / PLAN CLINICAL IMPRESSION / ASSESSMENT: (K94.330W) Closed nondisplaced fracture of proximal phalanx of [...] plan as detailed above. Bob Millan D.O. [facility] [place] Team Physician, [facility] Consulting Physician, [place] [employer], Seasonal Customer Service Associate [phone] Patient verbalizes understanding and agrees with the treatment plan as detailed above.[facility]* Diagnosis Liver pain- Primary Abdominal pain, other specified site documented in this encounter [facility] noteNo InformationNort [employer] Other Evaluation noteNo assessment information available [facility] Work Phone: Evaluation note* Diagnosis Onset Date Resolution Status Ground-level fall acute Laceration of knee, left acu te Right elbow pain acute [facility] Work Phone: Evaluation note* Diagnosis Onset Date Resolution Status Ground-level fall acute Laceration of knee, left acu te Right elbow pain acute Elbow fracture, right acute Hypothyroidism acute Laceration of knee, left acu te [facility] Work Phone: Evaluation note* Diagnosis Onset Date Resolution Status Ground-level fall acute Laceration of knee, left acu te Right elbow pain acute Elbow fracture, right acute Hypothyroidism acute Laceration of knee, left acu te Fracture of radial neck, right, closed acute [facility] Work Phone: Evaluation note* Diagnosis Onset Date Resolution Status Ground-level fall acute Laceration of knee, left acu te Right elbow pain acute Elbow fracture, right acute Hypothyroidism acute Laceration of knee, left acu te Fracture of radial neck, right, closed acute Fracture of radial neck, right, closed acute [facility] Work Phone: Evaluation note* Diagnosis Onset Date Resolution Status Ground-level fall acute Laceration of knee, left acu te Right elbow pain acute Elbow fracture, right acute Hypothyroidism acute Laceration of knee, left acu te Fracture of radial neck, right, closed acute Fracture of radial neck, right, closed acute Fracture of radial neck, right, closed acute [facility] Work Phone: Evaluation note* Author Hyacinth Hutton [facility] Authored March 06, 2024 2: 47pm The above note written by Thuan STRINGER acting as human recorder, note dictated by Dr.Bryan Ahumada. [facility] Work Phone: Evaluation note* Diagnosis Closed nondisplaced fracture of proximal phalanx of left little finger, initial encounter [facility] Diagnosis Lumbosacral radiculopathy- Primary Thoracic or lumbosacral neuritis or radiculitis, unspecified documented in this encounter [facility] HealthcareEvaluation note* Diagnosis Onset Date Resolution Status Admit Date Bilateral foot pain acute Novem 2023 2:36pm Fatty liver acute May 2:36pm GERD (gastroesophageal reflu x disease) acute June 10, 2 024 2:36pm Hypothyroidism acute May 232023 2:36pm Pre-diabetes acute May 2:36pm [facility] Work Phone: Evaluation note* Author Hyacinth Hutton [facility] Authored September 09, 2024 2:43pm The above note written by SIOMARA Bolden acting as human recorder, note dictated by Dr. Peter Ahumada. [facility] Work Phone: Evaluation note* Diagnosis Sebaceous cyst- Primary documented in this encounter [facility] HealthcareEvaluation note* Diagnosis Sebaceous cyst- Primary documented in this encounter [facility] HealthcareHistory general Narrative - Reported* Type Description Date Medical History asthma Medical History HPV Medical History f/u with Health Dept for [place] needs Medical History Inclusion cyst Surgical History jaw surgery for underbite Surgical History breast biopsy 2018 Hospitalization History see surgical [facility] Other Hospital Discharge instructions Additional Instructions [place] diet as tolerated Increase oral fluids Take the diclofenac twice a day as needed for pain and inflammation Take oxycodone every 6 hours for severe pain Follow-up with your family doctor for recheck I also gave you the number for gastroenterology Return to the ER for more severe pain high fever vomiting or any other concerns [facility] Work Phone: Hospital Discharge instructions Additional Instructions [facility] Work [facility]: Hospital Discharge instructions Additional [...] directed for pain unless a prescription was provided.[facility] Work Phone: Reugpb for referral (narrative)No reason for referral information availableDelaware County Hospital Work Phone: reason for visit Narrative* Other Medical (Routine) - Closed Specialty Diagnoses / Procedures Referred By Contac t Referred To Contact Neurology Diagnoses Sciatica, left side Procedures [place] NEEDLE EMG EA EXTREMTY W/PARASPINL AREA COMPLETE [place] NERVE CONDUCTION STUDIES 9-10 STUDIES Robert Martinez MD [address] [place] [address] Phone: tel: fax: Shakeel Rios MD [address] [place] [address] Phone: tel: fax: Referral ID Status Reason Start Date Expiration Date V isits Requested Visits Authorized [id number] Closed Perform Procedure 05/13/2024 11/09/2024 1 1 [...] and content) DATE CREATED AUTHOR 02/25/2021 [facility] [place] [facility] DATE CREATED AUTHOR AUTHOR'S ORGANIZ ATION 10/18/2021 [facility] DATE CREATED AUTHOR AUTHOR'S ORGANIZ ATION 10/14/2024 [facility] [facility] DATE CREATED AUTHOR AUTHOR'S ORGANIZ ATION 02/07/2025 [facility] DATE CREATED AUTHOR AUTHOR'S ORGANIZ ATION 03/21/2025 [facility] Source Comments (unrecognize d section and content) In the event this informatio n is protected by the Federal Confidentiality of Alcohol and Drug Abuse Patient Records regulations: The Federal rules restrict any use of the information to criminally investigate or prosecute any alcohol or drug abuse patient.[facility] the event this information is protected by the Federal Confidentiality of Alcohol and Drug Abuse Patient Records regulations: The Federal rules restrict any use of the information to criminally investigate or prosecute any alcohol or drug abuse patient.[facility] the event this information is protected by the Federal Confidentiality of Alcohol and Drug Abuse Patient Records regulations: The Federal rules restrict any use of the information to criminally investigate or prosecute any alcohol or drug abuse patient.[facility] Reason for Visit (unrecogniz ed section [...] Primary Care Provider, Attending Provi dani Active Quality Control Associate Relationship Specialty Start Date End Date Peter Ahumada DO [address] [place] [id number] PCP - General Family Practice 11/22/15 Team Status: Inactive Member Role Status Dates Peter Ahumada DO Primary Care Provider Active Alba Marshall , ENGINE MONITOR- Emergency Provider Active Team Status: Inactive Member Role Status Dates Peter Ahumada DO Primary Care Provider Active Koki Elkins ([facility]) , CONSTRUCTION PLUMBER Attending Provider Active Team Status: Inactive Member [...] March 12, 2024 End: March 12, 2024 Quality Control Associate Relationship Specialty Start Date End Date Peter Ahumada DO [address] [place], [place] [id number] PCP - General Family Medicine 11/22/15 Team Status: Inactive Member Role Status Dates Peter Ahumada DO Primary Care Provider Active Sta rt: May 19, 2024 End: May 19, 2024 Robert Martinez DPM MS Attending Provider Active Start: May 19, 2024 End: May 19, 2024 Quality Control Associate Relationship Specialty Start Date End Date Peter Ahumada MD [address] [place] [address] PCP - General 01/25/23 Quality Control Associate Relationship Specialty Start Date End Date Peter Ahumada MD [address] [place] [address] PCP - General 01/25/23 Team [...] September 09, 2024 End: September 09, 2024 Quality Control Associate Relationship Specialty Start Date End Date Peter Ahumada MD [address] [place] [address] PCP - General 01/25/23 Team Status: Inactive Member Role Status Dates Alber Haines DO Attending Provider Active Start: September 29, 2024 End: September 29, 2024 Quality Control Associate Relationship Specialty Start Date End Date Peter Ahumada MD [address] [place] [address] PCP - General 01/25/23 Team Status: Inactive [...] BE BASED ON THE PRIMARY CLINICAL RECORDS. [facility] [employer] provides no warranty or guarantee of the accuracy or completeness of information in this document.
[2025-04-27 08:34] VITALS: BP 132/87; PULSE 74; TEMP 37.6; O2SAT 93
[2025-04-27 09:19] VITALS: BP 136/65; BP 144/65; PULSE 69; PULSE 70; O2SAT 99
[2025-04-27] MEDS: LIDOCAINE HCL 2% 400 MG/20 ML MDV 16 ML INJ (09:27)
[2025-04-27] MEDS: BUPIVACAINE HCL 0.25% PF 25 MG/10 ML VIAL 4 ML INJ (09:27)
[2025-04-27] MEDS: METHYLPREDNISOLONE ACETATE 40 MG/ML VIAL INJ (09:27)
--- NOTE | 2025-04-27 09:31 | P.ON_ITS ---
Date of procedure: 04/27/25 Pre-op diagnosis: Pain due to lumbar spondylosis without myelopathy Post-op diagnosis: same as pre-op Procedure: Procedure: Bilateral L4-5, L5-S1 radiofrequency ablation Medications: Bupivacaine 0.25% 6cc, lidocaine 2% 6cc, depomedrol 80mg The patient was seen and examined in the preoperative holding area.? The site was marked.? Written informed consent was obtained and placed on the chart.? The patient was brought to the medical procedure unit and placed in the prone position.? A timeout was completed verifying correct patient, procedure, positioning, and special requirements.? The skin overlying the target points, the designated medial branch, were prepped and draped in the usual sterile fashion.? The target point was achieved with a 20-gauge 15 cm with a 10 mm curved active tip radiofrequency cannula under direct fluoroscopic visualizati on.? The needle was inserted at level L4 on the right side. Needle tip position was confirmed with lateral fluoroscopic position.? Motor stimulation was carried out at 2 Hz up to 5 volts with the absence of extremity activity.? This was repeated at level L5, S1 on right side.?? Sensory stimulation was carried out.? Concordant pain was realized at the above- mentioned sites.? Then radiofrequency lesioning was carried out times 90 seconds at 80 degrees times 2 lesions at each level.? The radiofrequency probe was removed prior to cannula removal.? The above-mentioned injectate was placed in 1 mL increments.? The needle was removed. The same procedure, with the same steps, was then completed on the left side at the same levels. Insertion sites were covered.? The patient was taken to the postoperative recovery area and monitored for an appropriate length of time before being found suitable for discharge in the company of a responsible adult. Anesthesia: Local Surgeon: Christos Manrique Pathology: none sent Condition: stable Disposition: no change
== END 2025-04-27 09:36 | disposition home or self-care (01) ==
PROVIDERS: PCP Family Medicine; Visit Provider Anesthesiology
DX: M47.816 Spondylosis without myelopathy or radiculopathy, lumbar region (principal); M54.50 Low back pain, unspecified
CPT/HCPCS: 64635; 64636; J0665; J1010

== ENCOUNTER 2025-05-27 07:53 | Outpatient (OUT) | payer OTHER, SELFPAY ==
--- OUTSIDE RECORDS SUMMARY | 2024-07-24 09:48 | XMS_ITS | Continuity of Care Document ---
Author Organization [facility] Address [address] [place] [address] Phone Care Team Providers Care Chief Commercial Officer Name Role Phone Severo KETANAgusto Tamar CARLINan Unavailable Unavaila ble Allergies, Adverse Reactions, Alerts Substance Reaction Status Criticality No Known Allergies Active No Inform ation Medications Medication Instructions Dosage Effective Dates (start - stop) Status Comments Sprintec (28) 0.25 mg-35 mcg tablet TAKE 1 TABLET BY MOUTH EVERY DAY - Active esomeprazole magnesium 20 mg capsule,delayed release take 1 capsule by oral route every day at least 1 hour before a meal swallowing whole. Do not crush or chew granules. 20 MG - Active albuterol sulfate HFA 90 mcg/actuation aerosol inhaler inhale 2 puff by inhalation route every 4 - 6 hours as needed 180 MCG - Active levothyroxine 88 mcg capsule take 1 capsule by oral route every day 88 MCG - Active Emergen-C 500 mg chewable tablet - Active Procedures Procedure Date PREV VISIT, EST, AGE 40-64 PREV VISIT, EST, AGE 40-64 DIAST BP 80-89 MM HG SYST BP < 130 MM HG MED LIST DOCD IN [facility] RVW MEDS BY RX/DR IN [facility] Pt inelig neg scrn depres OFFICE/OUTPATIENT VISIT, EST PREV VISIT, EST, AGE 40-64 PREV VISIT, EST, AGE 18-39 URINE TEST PREV VISIT, EST, AGE 18-39 OFFICE/OUTPATIENT VISIT, EST PREV VISIT, EST, AGE 18-39 Donation OFFICE/OUTPATIENT VISIT, EST Orthocyclen OFFICE/OUTPATIENT VISIT, EST BX OF CERVIX W/SCOPE, LEEP BX/CURETT OF CERVIX W/SCOPE OFFICE/OUTPATIENT VISIT, EST OFFICE/OUTPATIENT VISIT, EST Ortho Cyclen Orthocyclen OFFICE/OUTPATIENT VISIT, EST PREV VISIT, EST, AGE 18-39 Nuvaring PREV VISIT, EST, AGE 18-39 PREV VISIT, EST, AGE 18-39 PREV VISIT, EST, AGE 18-39 Thin Prep(R) Imaging System Pap W/Reflex To HR HPV DNA CHLAMYDIA & N GONORRHOEAE DNA, SDA PREV VISIT, EST, AGE 18-39 ODH SPECIMEN HANDLING (GC/CHLAMYDIA) Jul THIN PREP TIS LIQUID-BASED PREV VISIT, NEW, AGE 18-39 SPECIMEN HANDLING THIN PREP AND HPV URINE TEST Condoms Advance Directives Directive Yes / No Effective Date File Name No Information Encounters Encounter Description Practice Location Reason(s) For Visit Diagnoses Date Provider Providers Copied on Encounter [facility], [address] [place] [address], [id number] , [place] tel:[phone] [facility] No Information 5 [facility]elles. [address] [place] [address], [id number], [place]. tel:[phone] PREV VISIT, EST, AGE 40-64 [facility], [address], [place], [id number] , [place] tel:[phone] [facility] annual exam (chief complaint) Encounter for gynecological examination (general) (routine) without abnormal findingsBody mass index [BMI] 31.0-31.9, adultEncounter for screening mammogram for Ca of breastOCP follow up Rx 4 [facility]. [address], [place], [id number], [place]. tel:[phone] PREV VISIT, EST, AGE 40-64 [facility], [address], [place], [id number] , [place] tel: [phone] [facility] annual exam (chief complaint) Encounter for gynecological examination (general) (routine) without abnormal findingsEncounte r for STD screening- STD High risk heterosexual behaviorOCP follow up RxBody mass index [BMI] 34.0-34.9, adult 3 [facility]. [address], [place], [id number], [place]. tel:[phone] OFFICE/OUTPA TIENT VISIT, EST [facility], [address], [place], [id number] , [place] tel: [phone] [facility] Ovarian cyst (chief complaint) Right ovarian cystFamily history of uterine cancerEncounter for screening mammogram for Ca of breastBody mass index [BMI] 36.0-36.9, adult 3 [facility]. [address], [place], [id number], [place]. tel:[phone] PREV VISIT, EST, AGE 40-64 [facility], [address], [place], [id number] , [place] tel:[phone] [facility] annual exam (chief complaint) Encounter for gynecological examination (general) (routine) without abnormal findingsBody mass index [BMI] 33.0-33.9, adultEncounter for STD screeningOther problem related to lifestyleOCP follow up RxEncounter for screening mammogram for Ca of breast 2 [facility]. [address], [place], [id number], [place]. tel:[phone] PREV VISIT, EST, AGE 18-39 [facility], [address], [place], [id number] , [place] tel: [phone] [facility] annual exam (chief complaint) Encounter for gynecological examination (general) (routine) without abnormal findingsBody mass index [BMI] 37.0-37.9, adultPelvic pain in femaleEncounter for screening mammogram for Ca of breastOCP follow up Rx 1 [facility]. [address], [place], [id number], [place]. tel:[phone] [facility], [address] [place] [address], [id number] , [place] tel: [phone] [facility] Abnormal Mammogram 0 [facility]. [address], [place], [id number], [place]. 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 [address], [place], [id number], [place]. tel:[phone] [facility], [address] [place] [address], [id number] , [place] tel: [phone] [facility] Abnormal Mammogram 0 [facility] [address], [place], [id number], [place]. tel:[phone] [facility], [address] [place] [address], [id number] , [place] tel: [phone] [facility] Abnormal Mammogram 9 [facility] [address], [place], [id number], [place]. tel:[phone] OFFICE/OUTPA TIENT VISIT, EST [facility], [address], [place], [id number] , [place] tel: [phone] [facility] abnormal pap smear (chief complaint) Body mass index (BMI) 29.0-29.9, adultCyst of right breastFibrocysti c disease of breastAtypical squamous cells of undetermined significance on cytologic smear of cervix (ASC-US) 9 [facility]. [address], [place], [id number], [place]. 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 [address], [place], [id number], [place]. tel:[phone] [facility], [address], [place], [id number] , [place] tel: [phone] [facility] Cyst of right breast 8 [facility] [address], [place], [id number], [place]. tel:[phone] [facility], [address], [place], [id number] , [place] tel: [phone] [facility] Cyst of right breast 8 [facility] [address], [place], [id number], [place]. tel:[phone] OFFICE/OUTPA TIENT VISIT, [facility], [address], [place], [id number] , [place] tel: [phone] [facility] abnormal pap smear (chief complaint) Body mass index (BMI) 28.0-28.9, adultCIN 2OCP follow up Rx 8 [facility] [address], [place], [id number], [place]. tel:[phone] [facility], [address], [place], [id number] , [place] tel: [phone] [facility] Fibrocystic disease of breast 8 [facility] [address], [place], [id number], [place]. tel:[phone] OFFICE/OUTPA TIENT VISIT, [facility], [address], [place], [id number] , [place] tel: [phone] [facility] Leep follow up (chief complaint) Unspecified lump in unspecified breastCIN 2 7 Ty Morris. [address], [place], [id number], [place]. tel:[phone] [facility], [address], [place], [id number] , [place] tel: [phone] [facility] Leep (chief complaint) PEG 2 7 Visci DO Mack. [address], [place], [id number], [place]. tel:[phone] OFFICE/OUTPA TIENT VISIT, [facility], [address], [place], [id number] , [place] tel: [phone] [facility] Colpo (chief complaint) Atypical squamous cells of undetermined significance on cytologic smear of cervix (ASC-US)Cervical high risk HPV DNA test positive 7 Visci DO Frederick. [address], [place], [id number], [place]. tel:[phone] OFFICE/OUTPA TIENT VISIT, EST [facility], [address], [place], [id number] , [place] tel: [phone] [facility] contraception (chief complaint) contraceptive management 7 [facility]. [address], [place], [id number], [place]. tel:[phone] OFFICE/OUTPA TIENT VISIT, EST [facility], [address], [place], [id number] , [place] tel: [phone] [facility] vaginal discharge/itch ing (chief complaint) Vulvovaginitis [facility]. [address], [place], [id number], [place]. tel:[phone] PREV VISIT, EST, AGE 18-39 [facility], [address], [place], [id number] , [place] tel: [phone] [facility] annual exam (chief complaint) - well woman with abnormal findingDysmenorr heaEncounter for STD screeningOther problem related to lifestylecontrac eptive managementEncntr for grounds worker exam (general) (routine) w/o abn findingsUmbilica l hernia without obstruction and without gangrene [facility]. [address], [place], [id number], [place]. tel:[phone] PREV VISIT, EST, AGE 18-39 [facility], [address], [place], [id number] , [place] tel: [phone] [facility] Update (chief complaint)robin al exam (chief complaint)cont raception (chief complaint) Encounter for general grounds worker exam without abnormal findingEncounter for STD screeningOther problem related to lifestyle 6 [facility]. [address] [place] [address], [id number], [place]. tel:[phone] PREV VISIT, EST, AGE 18-39 [facility], [address], [place], [id number] , [place] tel: [phone] [facility] annual visit (chief complaint) Gynecological ExaminationIrreg ular menstrual cycle 8-201 4 Rice [facility] [address], [place], [id number], [place]. tel:[phone] PREV VISIT, EST, AGE 18-39 [facility], [address], [place], [id number] , [place] tel: [phone] [facility] No Information 2201 2 Juaquind[place] [facility] Erin. [address], [place], [id number]. tel:[phone] PREV VISIT, NEW, AGE 18-39 [facility], [address], [place], [id number] , [place] tel: [phone] [facility] No Information 0-201 0 L[place] Maria D. [address] [place] [address], [id number], [place]. tel:[phone] Family History Family Member Type Diagnosis Age At Onset Brother Problem (finding) Alive and well Maternal grandmother Problem (finding) Thyroid disease Paternal grandmother Problem (finding) hypertension Father Problem (finding) Alive and well Maternal grandfather Problem (finding) Heart disease Mother Problem (finding) Obesity Mother Problem (finding) Alive and well Immunizations Vaccine Date Status Comments Hep A (adult) refused Source: New Im munization Record Payers Payer name Insurance type Covered green party ID Authoriza tion(s) [employer] Medicaid CFC [id number] Medicaid Wrap - [facility] [id number] Medicaid Wrap - [facility] [id number] Social History Type Description Quantity Date Captured Comments Alcohol Use Details Unknown Caffeine Use Details Unknown Tobacco Use Status No Information Smoking Status No Information Sex Female Sexual Orientation Straight or heterosexual Gender Identity Female Chief Complaint And Reason For Visit No Information Reason For Referral Reason For Referral No Information Plan Of Treatment Date Type Action Status Goal PRAPARE ASSESSMENT. Due on due Goal Unhealthy drug use screening . Due on due Goal RLP. Due on due Goal HPV. Due on due Goal Influenza vaccine. Due on due Goal Hepatitis C screening. Due o n due Goal Tdap. Due on due Goal Tdap Vaccine. Due on 2024 due Goal Depression screening. Due on due Goal Lipid panel. Due on 025 due Goal Mammogram. Due on 2 due Goal Hep A. Due on du e Goal PRAPARE ASSESSMENT. Due on due Goal Tdap Vaccine. Due on 2023 due Goal RLP. Due on due Goal Mammogram. Due on 2 due Goal Unhealthy drug use screening . Due on due Goal Influenza vaccine. Due on due Goal Tdap. Due on due Goal Hepatitis C screening. Due o n due Goal Lipid panel. Due on 024 due Goal HPV. Due on due Goal Depression screening. Due on due Goal RLP. Due on due Goal Hepatitis C screening. Due o n due Goal PRAPARE ASSESSMENT. Due on O due Goal Tdap. Due on due Goal Unhealthy drug use screening . Due on due Goal Lipid panel. Due on 023 due Goal Influenza vaccine. Due on Oc t due Goal Hep A. Due on du e Goal Tdap Vaccine. Due on 2022 due Goal Depression screening. Due on due Goal HPV. Due on due Goal Mammogram. Due on 2 due Goal Tdap Vaccine. Due on 2022 due Goal Mammogram. Due on 0 due Goal Lipid panel. Due on due Goal PRAPARE ASSESSMENT. Due on A due Goal Depression screening. Due on due Goal Influenza vaccine. Due on Ap due Goal Tdap. Due on due Goal RLP. Due on due Goal Dietary management education , guidance, and counseling completed Goal Lipid panel. Due on 022 due Goal RLP. Due on due Goal Mammogram. Due on 5 due Goal PRAPARE ASSESSMENT. Due on O due Goal Tdap. Due on due Goal Depression screening. Due on due Goal Influenza vaccine. Due on Oc due Goal Dietary management education , guidance, and counseling completed Goal Dietary management education , guidance, and counseling completed Goal Dietary management education , guidance, and counseling completed Goal Dietary management education , guidance, and counseling completed Goal Dietary management education , guidance, and counseling completed Goal Dietary management education , guidance, and counseling completed Referral Ordered: US EXAM, PELVIC, COMPLETE Appointment date/timeframe: 03/02/2021 [id number] Ordered: MAMMOGRAM, SCREENING Appointment date/timeframe: 11/23/2022 [id number] Ordered: DX MAMMO INCL CAD BI Bilateral Appointment date/timeframe: 07/14/2019 [id number] Ordered: US Exam, Breast(s) Bilateral Appointment date/timeframe: 01/16/2019 [id number] Ordered: Referrals: Surgery. Consult Appointment date/timeframe: 02/28/2018 [id number] Ordered: Surgery (related to Umbilical hernia without obstruction and without gangrene) ordered History Of Present Illness Encounter Date Complaint History Of Prese nt Illness annual exam Currently pregna nt: no. : 1. induced: 1. The client states using oral contraceptive and vasectomy for control. Last LMP was 06/10/2024. The client no longer uses tobacco. The client does drink alcohol. Additional information: Patient is here for annual exam. She is currently on OCPs and desires to continue. 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 . annual exam Currently pregna nt: no. : 1. induced: 1.Client is not contemplating . The client states using oral contraceptive and vasectomy for control. Last LMP was 04/25/2023. Patient's menses is regular with light flow with a frequency of every 28 days. Negative for dysmenorrhea and menorrhagia. Negative for: breast discharge, breast lump(s), breast pain and breast self exam.Negative for Hormone replacement therapy. The client no longer uses tobacco. The client does drink alcohol. Additional information: Patient is here for annual exam. Currently on Sprintec for cycle control. Her menses are regular and not heavy. She does take Motrin PRN cramping. 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 She does get hot flashes every now and then, but plans to follow up with PCP as she has a history of Thyroid disorder. . Ovarian cyst Patient was seen in the ER and Dx with a right ovarian cyst. 3.7 inches. states it was very painful and is on Diclifinac. She also was told she has inflammation of her appendix. States she is still on Sprintec for BCM. States her mother has recently been Dx with Uterine cancer and she has question. annual exam Currently pregna nt: no. : 1. induced: 1. Patient is not contemplating . The patient states she uses oral contraceptive and vasectomy for control. Last LMP was 04/25/2022. Her menses is regular with normal flow with a frequency of every 28 days. Negative for dysmenorrhea and menorrhagia. Negative for: breast discharge, breast lump(s), breast pain and breast self exam. The patient no longer uses tobacco. She does drink alcohol. Additional information: Patient is here for annual exam. Currently on OCPs for cycle control as partner has a vasectomy. She would like to continue OCPs and denies any contraindication. She completed her mammogram in September 2021 and result was normal. Requesting cervical culture today.. annual exam Currently pregna nt: no. : 1. induced: 1. Patient is not contemplating . The patient states she uses oral contraceptive and vasectomy for control. Last LMP was 01/27/2021. Her menses is regular with normal flow with a frequency of every 28 days. Negative for dysmenorrhea and menorrhagia. Negative for: breast discharge, breast lump(s), breast pain and breast self exam.Negative for Hormone replacement therapy. The patient no longer uses tobacco. She does drink alcohol. Additional information: Patient is here for annual exam. States she is in the process of being worked up for right side pain. was Dx with a fatty liver and possible cyst of her liver. has appt later this week with GI specialist. Also has upper GI scheduled. IS currently on OCPs and does have some discomfort in the lower right abdomen as well. IS due for follow up mammogram in Jun and desires to schedule. States doing well with OCPS and denies other SCIENTIFIC SYSTEMS ANALYST problems was just treated recently for a kidney infection. annual exam Currently pregna nt: no. : 1. induced: 1. Patient is not contemplating . The patient states she uses vasectomy for control. Last LMP was 12/10/2019. Her menses is regular with normal flow with a frequency of every 28 days. Negative for dysmenorrhea and menorrhagia. Negative for: breast discharge, breast pain and breast self exam. Positive for: breast lump(s).Negative for Hormone replacement therapy. The patient does not use tobacco. She does drink alcohol. Additional information: Patient is here for annual exam. IS due to have follow up bilateral breast sonogram. Is no longer on OCPs because her partner has a vasectomy. States menses comes regularly, but at times they are heavy. Takes motrin 800mg PRN. States she drinks large amounts of caffeine. . abnormal pap smear Additional in formation: Patient is here for repeat pap and is due for follow up bilateral sonogram due to breast density and history of bilateral breast cysts. annual exam Currently pregna nt: no. : 1. Parity: : 1. Patient is not contemplating . The patient states she uses vasectomy and oral contraceptive for control. Last LMP was 05/03/2018. Her menses is irregular with Varies flow with a frequency of Varies.Negative for Hormone replacement therapy. She does drink alcohol. Additional information: Patient is here for annual exam with repeat pap. Had a LEEP procedure 06/08. WOuld like to continue OCPs at this time to regulate menses. Partner currently has a vasectomy. States last month she had BTB for a couple weeks but that was the first time in 1 year she had BTB. Denies other SCIENTIFIC SYSTEMS ANALYST problems at this time.. abnormal pap smear Additional in formation: Patient is here for repeat pap. Had Leep 06/08. Is currently on OCPs and desires to continue. Was on indomethicin and started to spot and nelson stopped the indomethicin. Desires to continue OCPs at this time. States she has 2 large cycst in her right breast and patient is scheduled for repeat sonogram December 2017. If lumps continue to increase in size she may desire a referral to see General surgeon. Leep follow up Patient here for Leep follow up on 05/25/17. Patient is on BCP's and has repap scheduled for 11/27/17.Nicole Crooks.Pt here with c/o of rt. breast mass...noticed 1 week ago. Slightly tender, no drainage. Denies any recent breast trauma. No family historey of breast cancer. Has no prior breast issues or breast biopsies. Did well after LEEP...no complaints....JEFRY Leep Patient here for LEEP. Annual 02/21/17 ASCUS HPV (+). Colpo 03/30/17. Partner had vasectomy and she is currently on BCP. Consent form signed. Patient has follow up next week for BCP and is wondering if she can just get her refills today. -Jesus RIVERA Colpo Patient here for Colpo, annual done 02/21/17 ASCUS HPV (+). Consent form signed. Patient on BCP. Patient states she is getting over a yeast infection, denies any symptoms at this time. -Jesus IRVERA contraception Patient has been on nuvaring for 1-2 months and desires to cahnge back to OCPs. Patient was on them in the past without difficulty. Nelson is using OCPs to regulate menses as her partner has a vasectomy. States she had a yeast infection and used the tr=erazol cream but does not like the feel of the cream. States her symptoms did resolve. Denies contraindications to OCPs. vaginal discharge/itching The pa tient is premenopausal. Additional information: Patient is here due to increased vaginal irritation. States she started the nuvaring 02/21/17. Has done well, but is starting to have slight spotting. States she does use panty liners on a daily basis. Is scheduled for BC follow up in 2 months. annual exam Currently pregna nt: no. : 1. Parity: : 1. Patient is not contemplating . The patient states she uses vasectomy for control. Last LMP was 02/06/2017. Her menses is irregular with normal flow with a frequency of every 28 days. Positive for dysmenorrhea.Negative for Hormone replacement therapy. Tobacco cessation has been discussed. She does drink alcohol. Additional information: Here for annual exam. Currently using vasectomy for BC. C/O heavy painful menses and would like a hysterectomy, but has never tried medication to regulate menses. is willing to try nuvaring. 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 contraception Education provid ed on various BCM, client declined due to partner has had a vasectomy. NICOLE Pope annual exam Currently pregna nt: no. Parity: : 1. The patient states she uses none for control. Last LMP was 02/04/2016. Her menses is regular with heavy flow with a frequency of every 28 days. Negative for: breast self exam. The patient does not use tobacco. She does drink alcohol. Additional information: Reports menses lasting 7 days, varies- sometimes heavy with cramping & lot of clotting. NICOLE DEJESUS. Update Client presents for an update. Reports having irregular menses since starting on an ATB for knee, took for approx 2 months. Concerned over the cramping/clotting. DX with hypothyroid. HIV/RPR declined. Denies any further problems/concerns. Pap/cultures obtained. NICOLE Pope contraception (comments) States her menses is regular, but noticed it was much airplane captain and less cramping with the anti inflamatory medication. Desires to go on medication to help decrease bleeding and cramping around the time of her menses. Decline OCPs at this time. States she just started thyrpoid medication about 3 weeks ago and is doing well. States she is in the process of having an enlarged gland in her neck and fullness above her clavical evaluated. Physician in [place] has recommended a possible biopsy Functional Status Date Functional Assessmen t No Information Instructions Date Instruction Additional Infor yasmeen Encouraged good diet arvin intake, exercise and healthy lifestyle choices. Recommend daily multi-vitamin with Folic acid. Understands the need for non-violent partners in a consensual relationship. Patient does not desire a in the near future. Reviewed control options for prevention and desires to continue using OCPs at this time.Declines HIV, RPR and Hep CUTD on vaccines Related to Encounter for gynecological examination (general) (routine) without abnormal findings Discussed BC options . Patient desires to continue Sprintec with the onset of her next menses. Denies contraindications. Encouraged to start with the onset of her next menses. Take 1 tablet daily and if misses a pill take as soon as she remembers. If she misses two pills take two one day and two the next day, but use back up form of BC like condoms. Encouraged to use condoms regularly to prevent STDs in the future. Related to OCP follow up Rx Dietary needs education Related to Body mass index [BMI] 31.0-31.9, adult Giving encouragement to exercise Related to Body mass index [BMI] 31.0-31.9, adult Encouraged to start Sprintec with the onset of her next menses. Take 1 pill po QD at HS. If misses a pill take it as soon as she remembers and if she misses two pills take two pills one day and two pills the next day. Encouraged condoms for back up BC and to prevent STDs. Related to OCP follow up Rx Cervical cultures ob tained and sent to lab Patient to call in 1 week for result Related to Encounter for STD screening Encouraged monthly B SE. Recommend calcium 1000mg QD. Encouraged good dietary intake and exercise. Laboratory specimens sent to lab. Patient to call in 2 weeks if desires results.Discussed control options and patient desires to continue vasectomy and Sprintec for cycle control at this time Related to Encounter for gynecological examination (general) (routine) without abnormal findings Screening mammogram was reschedule as patient has order, but did not keep her last scheduled appt. Related to Encounter for screening mammogram for Ca of breast Discussed mother's h istory of uterine cancer in detail. Encouraged to stay on Sprintec until menopause. Will look at endometrial stripe when uteine sonogram is complete. Discuss biggest risk of uterine cancer is vaginal bleeding and reassurance was given at this time as she is not menopausal and is currently on OCPs. Patient states understanding of s/s to look for as she gets older. Related to Family history of uterine cancer Discussed ovarian cy st in detail and encouraged to continue pain medication as Rx from the ER. Patient states she may desires to stop Diclofinac and switch to Motrin 800mg PO Q 8 hr PRN. Will order pelvic sonogram for further evaluation of ovarian cyst. Encouraged to continue Sprintec at this time for ovulation suppression. Related to Right ovarian cyst Giving encouragement to exercise Related to Body mass index [BMI] 36.0-36.9, adult Dietary management e ducation, guidance, and counseling Related to Body mass index [BMI] 36.0-36.9, adult Encouraged monthly B SE. Recommend calcium 1000mg QD. Encouraged good dietary intake and exercise. Laboratory specimens sent to lab. Patient to call in 2 weeks if desires results.Discussed control options and patient desires Vasectomy and OCPs Related to Encounter for gynecological examination (general) (routine) without abnormal findings Cervical cultures se nt to lab. Patient to call in 1 week for results Related to Encounter for STD screening Giving encouragement to exercise Related to Body mass index [BMI] 33.0-33.9, adult Dietary management e ducation, guidance, and counseling Related to Body mass index [BMI] 33.0-33.9, adult Pelvic sonogram orde red to evaluate continued right side discomfort which may be associated with her fatty liver and liver cyst. patients to discuss OCPs with her GI specialist and verify she can continue given OCPs at broken down in the liver. Related to Pelvic pain in female Encouraged to start Sprintec with the onset of her next menses. Take 1 pill po QD at HS. If misses a pill take it as soon as she remembers and if she misses two pills take two pills one day and two pills the next day. Encouraged condoms for back up BC and to prevent STDs. Related to OCP follow up Rx Encouraged monthly B SE. Recommend calcium 1000mg QD. Encouraged good dietary intake and exercise. Laboratory specimens sent to lab. Patient to call in 2 weeks if desires results. Mammogram ordered for Dec. Tripathi has had HX of biopsy done in the past.Discussed control options and patient desires OCPs Related to Encounter for gynecological examination (general) (routine) without abnormal findings Giving encouragement to exercise Related to Body mass index [BMI] 37.0-37.9, adult Dietary management e ducation, guidance, and counseling Related to Body mass index [BMI] 37.0-37.9, adult Bilateral breast son ogram ordered. Encouraged to decrease or stop caffeine intake. Related to Fibrocystic disease of breast Cervical cultures se nt to lab. Patient to call in 1 week for results Related to Encounter for STD screening Encouraged monthly B SE. Recommend calcium 1000mg QD. Encouraged good dietary intake and exercise. Laboratory specimens sent to lab. 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 Patient is to call in 1 week for result Related to Atypical squamous cells of undetermined significance on cytologic smear of cervix (ASC-US) Bilateral dense mike st tissues and history of bilateral breast cyst. Bilateral sonogram ordered and referral back to General Surgeon for further evaluation and possible aspiration. Related to Cyst of right breast Giving encouragement to exercise Related to Body mass index (BMI) 29.0-29.9, adult Dietary management e ducation, guidance, and counseling Related to Body mass index (BMI) 29.0-29.9, adult Cervical cultures se nt to lab. Patient to call in 1 week for results Related to Encounter for STD screening Encouraged monthly B SE. Recommend calcium 1000mg QD. Encouraged good dietary intake and exercise. Laboratory specimens sent to lab. Patient to call in 2 weeks if desires results. May continue OCPs at this time. Patient does not need a refill as she has a Rx already. Will call once Rx runs out or will follow up in 6 months with her next repeat pap. 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 Patient does not have insurance at this time. 6 pack given at appointment today. ENcouraged to follow up to see if she qualifies for medicaid. Patient states she would schedule an appointment. Encouraged to keep follow up mammogram appt. Related to OCP follow up Rx Pap sent to lab. Kayley sanches to call in 1 week for result. RTC 6 months for repeat pap. Related to PEG 2 Giving encouragement to exercise Related to Body mass index (BMI) 28.0-28.9, adult Dietary management e ducation, guidance, and counseling Related to Body mass index (BMI) 28.0-28.9, adult Patient desires to c hange form nuvaring back to OCPs. Encouraged to start Sprintec with the onset of her next menses. Take 1 pill po QD at HS. If misses a pill take it as soon as she remembers and if she misses two pills take two pills one day and two pills the next day. Encouraged condoms for back up BC and to prevent STDs. RTC 3 months for OCP follow up. Related to contraceptive management Nuswab sent to lab. Discussed proper hygiene measures and encouraged to avoid daily use of panty liners. Patient to call in 1 week for results Related to Vulvovaginitis Discussed umbilical hernia and encouraged to have appt with general surgeon for evaluation. Patient does not have insurance, but [place] [facility] [place] to Umbilical hernia without obstruction and without gangrene Cervical cultures se nt to lab. Patient to call in 1 week for results Related to Encounter for STD screening Encouraged monthly B SE. Recommend calcium 1000mg QD. Encouraged good dietary intake and exercise. Laboratory specimens sent to lab. Patient to call in 2 weeks if desires results. Discussed BC options in detail to regulate dysmenorrhea and patient desires the nuvaring Related to - well woman with abnormal finding Discussed dysmenorrh ea in detail and due to patient not having insurance and because she has not tried any method to help control the heavy painful menses informed her she would not be a candidate for hysterectomy at this time. Encouraged to start Nuvaring today as quick start method. Patietn to RTC 3 months for follow up evaluation. 3 rings given to patient today. Encouraged to continue Motrin 800mg PRN Related to Dysmenorrhea Cervical cultures se nt to lab. Patient to call in 1 week for results Related to Encounter for STD screening Encouraged monthly B SE. Recommend calcium 1000mg QD. Encouraged good dietary intake and exercise. Laboratory specimens sent to lab. Patient to call in 2 weeks if desires results. Encouraged to keep all follow up appt with physician in [place] for abnormal neck gland, fullness and thyroid. Patient states understanding. Encouraged to start Motrin 800mg every 8 hours around the clock during a heavy menses. Patient to take medication with food. 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
--- OUTSIDE RECORDS SUMMARY | 2025-05-20 03:50 | XMS_ITS | Continuity of Care Document ---
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 Name Role Phone Acshira Peter HOOVER Primary Care Provider [phone] Peter Lozano DO Attending Provider Care Teams Patient Care Team Team Status: Active Member Role/Relationship Status Dates Peter Lozano DO Primary Care Provider Active Visit Care Team Team Status: Inactive Member Role/Relationship Status Dates Peter Lozano DO Primary Care Provider Active Sta rt: May 15, 2025 End: May 15Yeimy Kingston ProviderActiveStart: May 15, 2025 End: May 15, 2025 Patient Care Team Team Status: Inactive Member Role/Relationship Status Dates Peter Lozano DO Primary Care Provider Active Sta rt: May 20, 2025 End: May 20Yeimy Kingston ProviderActiveStart: May 20, 2025 End: May 20, 2025 Chief Complaint and Reason for Visit Chief Complaint Admit Date [id number] May 15, 2025 8 :06am 5 month f/u May 20, 2025 7 :54am Reason for Visit Admit Date Bilateral foot pain May 20, 2025 7 :54am Hypothyroidism May 20, 2025 7 :54am Reason for Referral Type Reason(s) Provider Provider Contact Information P maggyvider Address Start Date Pain in both feet M79.671 - Pain in right foot,M79.672 - Pain in left footM79.671 - Pain in right foot,M79.672 - Pain in left footCasydnee Whaley Tobin , DPMWork Phone: [phone] [facility] [address] [facility] [address]Udjulos 2024 Allergies, Adverse Reactions, Alerts Allergen Type Severity Reaction Last Updated Verified Status benzonatate Allergy Unknown diarrhea May 20, 2025 8:07am Yes Active indomethacin Allergy Unknown ankle swelling May 20, 2025 8:07am Yes Active Social History Smoking Status Status Start Date End Date Date of Observa tion Ex-smoker (finding) September 09, 2024 2:29pm Observation Status Observation Response Date of Response Legal Sex Female (finding) Sex Assigned At BirthFemaleSept1979 Family History Relationship Condition Age at Onset Recorded Date/T sarah mother Malignant neoplasm of uterus Unknown Problems Active Problems Problem Diagnosis/Recorded Date Onset Date Stat us Acute right flank pain February 09, 2021 11:32pm Unknown Active Epiploic appendagitis November 01, 2022 1:23pm Unknown Active Ground-level fall December 27, 2023 2:11pm Unknown A ctive Lump September 09, 2024 3:39pm Unknown A ctive Fatty liver December 25, 2023 5:58pm Unknown Active Bilateral foot pain June 10, 2024 4:38pm Unknown Active Cyst of right breast February 07, 2018 10:38am Unknown Active Umbilical hernia January 29, 2024 12:47pm Unknown A ctive Hyperglycemia December 31, 2023 7:46am Unknown Acti ve Hyperlipidemia December 25, 2023 5:58pm Unknown Acti ve Hypothyroidism December 25, 2023 5:58pm Unknown Acti ve Atypical chest pain March 12, 2020 10:01pm Unknown Active Pyelonephritis February 08, 2021 2:16pm Unknown Act breanne Pyelonephritis February 09, 2021 11:32pm Unknown Ac tive DDD (degenerative disc disea se), lumbosacral December 25, 2023 5:58pm Unknown Active Body mass index 27.0-27.9, adult September 09, 2024 3 :41pm Unknown Active Pre-diabetes March 06, 2024 2:49pm Unknown Act breanne Knee pain, right December 19, 2023 2:02pm Unknown Ac tive Right elbow pain December 27, 2023 2:34pm Unknown Ac tive Screening for breast cancer December 08, 2024 12:50pm Unk nown Active GERD (gastroesophageal reflux disease) December 25, 2023 5:58pm Unknown Active Abdominal pain February 15, 2021 7:02am Unknown Act breanne Elbow fracture, right December 31, 2023 7:25am Unknown Active Fall December 19, 2023 2:02pm Unknown Active Asthma December 25, 2023 5:58pm Unknown Active Fracture of radial neck, right, closed December 31, 2023 2:49pm Unknown Active Diffuse cystic mastopathy of right breast February 07, 2018 10:42am Unknown Active Laceration of knee, left December 17, 2023 8:41am Unknown Active Inactive/Resolved Problems Problem Diagnosis/Recorded Date Onset Date Stat us Contusion of multiple sites December 17, 2023 8:41am Unkn own Resolved Medications Medication Status Dose Units Route Directions Qty Days Refills S tart Date Stop Date End Date Reason(s) Instructions Adherence Azithromycin (Zithromax) 250 mg tablet Discontinued 0 PO.DJKCYYC21YloNovember 30, 2023 12:00amMay 2023 7:36amFor 250 mg dose pack: take 500 mg today (day 1), then 250 mg for 4 days (days 2-5) POPrednisone 20 mg nyizxlFxbzukuxpwim44FSBT.LPUAVAY096OvnNovember 30, 2023 12:00amMay 2023 7:36am20 mg orally BID X 5 DAYS, QD X 5 DAYS;Hydrocodone-Acetaminophen 5-325 mg tablet Msuogavhabab6FXFRZLWUEW 4-6 HOURS as needed for Kztw18436Gps2023 9:39amContusion of multiple sites Unspecified multiple injuries, initial encounterHydrocodone-Acetaminophen 5-325 mg wrxdsxOtxcfkunkhna8CHJZPXYKCJ 4-6 HOURS as needed for Mmec4894Vng2023December 19, 2023 12:03pmContusion of multiple sites Unspecified multiple injuries, initial encounterHydrocodone-Acetaminophen 5-325 mg zwvmisOhmtqeroqlok5NYHPJHYSKO 4-6 HOURS as needed for Rkvb5071Sms2023December 31, 2023 7:42amContusion of multiple sites Unspecified multiple injuries, initial encounterEsomeprazole Magnesium (Nexium) 40 mg capsule,delayed release(DR/EC)Frwsobzcyolj69PLZPAwqmr ygjyw8941Niiaqk2023 12:002023 4:43pmIbuprofen 800 mg TabletDiscontinued 800MGPOAs Directed as needed for PainSeptember 2017 12:00amA2019 8:22pmAcetaminophen-Codeine (Tylenol-Codeine #3) 300-30 mg tablet Discontinued1 - 4VXDHZE8D as needed for cfkp3246Frwdwctcs 2017 12:00am March 30, 2018 12:00amSept2017 12:02amDiffuse cystic mastopathy of right breastIbuprofen 600 mg qzztqeLfzzajsocsjn624RIWAH1I as needed for pain 200August 2019 12:00amMay 2023 7:36amIbuprofen 800 mg tablet Myewjgqmmoyy850CVKZLmban times daily as needed for Btub453KnlDecember 17, 2023 12:00am February 13, 2024 3:12pmHydrocodone-Acetaminophen 5-325 mg adfxjfZtxveigcmqgz7ENB POEVERY 4-6 HOURS as needed for Shdf851CouDecember 17, 2023May 2023 9:28am Contusion of multiple sites Unspecified multiple injuries, initial encounterMultivitamin With Minerals (Hair,Skin And Nails) adibfsXnacoizteyuq2FDHZSYsfhj morningJun2023 12:002023 2:25pmLevothyroxine 88 mcg hmqigfUmpxbmsysqcn14HEERM Every 2023 12:00amNovemb2023 4:48pmAcetaminophen- Codeine 300-30 mg ljqmdkPhvyzymmdrho9ERLLFUWGTO 4-6 HOURS as needed for itfc7092 January 29, 2024 12:00amJuly 2023 3:12pmUmbilical hernia Umbilical hernia without obstruction or gangreneMultivitamin With Minerals (Hair,Skin And Nails) pdmuvoJveyna6GGFBATjing morningAugus2023 2:25pm Complies with drug therapyNorgestimate-Ethinyl Estradiol (Sprintec (28)) 0.25-35 mg-mcg EpaciwHqdyhgzsanqf7VJDYKYiyqnUvukvid 2016 12:00amJuly 2020 10:37amLevothyroxine 25 mcg RynssvVtatxzrcoxzh96NWTZIBuvpsVeqqngb 2016 12:00amMay 2023 2:04pmAlbuterol Sulfate (Proventil Hfa) 90 mcg/actuation Hfa Aerosol KfcvehaDpjeztvhgoyv4CCHIGKDQYZTDZDTUAXH 4-6 HOURS as needed for Shortness Of Breath Or WheezingOctober 2016 12:00amMay 2023 2:03pm Lactobacillus Combination No.4 (Probiotic) 3 billion cell CapsuleDiscontinued 3000MMU CELLSPODailyOctober 2016 12:00amSeptember 2017 9:04am Hydrocodone-Acetaminophen ([place]) 5-325 mg uqhdghBpqwpfmetpxw3SNSHBOVZJI 4-6 HOURS as needed for ibsh499Dgbcqsj 2016 12:00amSeptember 2017 9:04am Norgestimate-Ethinyl Estradiol ([place]) 0.25-35 mg-mcg mogqctUvyshkmohdzw2BLISH DailyJuly 2020 12:00amMay 2023 2:04pmOmeprazole 40 mg capsule,delayed release(DR/EC)Solbnwoujmwl17XSHJUuzpjLtnn 2020 12:00amMay 2023 2:04pmCephalexin 500 mg zanncnpYarrkgcfrlma878TLRPMsiz times daily40 100July 2020 12:00amApril 2022 10:30amPhenazopyridine (Pyridium) 200 mg zzfxgbMnthaqzcfkxe698DNGSSjgiq times daily as needed for wrkz905Hcfa 2020 12:00amApril 2022 10:30amadminister with a full glass of water with each mealOndansetron 4 mg tablet,jtgzzalxxrkeieBxwsxgakhayo9CVJJE4L as needed for nausea and vlbnnani952Rsjb 2020 12:00amApril 2022 10:30am Diclofenac Sodium 75 mg tablet,delayed release (DR/EC)Jvhumuikijcv91BZCNTaeuw daily as needed for amha305Xexrg 2022 12:00amMay 2023 7:36am Oxycodone-Acetaminophen 5-325 mg nijsgzJpualjqztlyy0CQNYOW3H as needed for pain 1230April 2022May 2023 7:36amEpiploic appendagitis Other specified diseases of intestineHydrocodone-Acetaminophen 5-325 mg tablet Lkdraydyrbgv4TOWUNIEDLP 4-6 HOURS as needed for Ykct8269Qxwz 2023July 2023 3:12pmContusion of multiple sites Unspecified multiple injuries, initial encounterEsomeprazole Magnesium (Nexium) 40 mg capsule,delayed release(DR/EC)Honlqd24NSJMVbgpn869Utlcrwqg 19th, 2024 1:00amComplies with drug therapyLevothyroxine 88 mcg iuvdnjBzmqul55NFDPGLjdkq lzfjepc286Batmvusl2023 4:44pmComplies with drug therapyCholecalciferol (Vitamin D3) 25 mcg (1,000 unit) ylxlwuxDyxpaefvsoac3PIOAGKkmlsCqd 29th, 2024 12:00amDecember 27, 2023 2:16pmFreeTextSi capsule Orally Once a day; Note: Source Status: Taking; Provider: Blake Green ( )Diclofenac Sodium 75 mg tablet,delayed release (DR/EC)Hfvnqikxvyvp89DMUPZcwru dailyMa2023 12:00amDecember 27, 2023 2:17pmTramadol 50 mg kvrewxQdsifgjhezuw49HETKMyk 2023 12:00amJanuary 15, 2024 2:27pmNorgestimate-Ethinyl Estradiol 0.25-35 mg-mcg upsqxjFyjvkx4BDLLLAgspl at bedtimeMa2023 12:00amComplies with drug therapyLevothyroxine 88 mcg woupavZzxqwgripbcu40UQIFZXmwegXqr 2023 12:00am December 19, 2023 2:09pmFurosemide (Lasix) 40 mg mtumjmSycjoirvtwlu78BLASIrtagHel 2023 12:00amDecember 27, 2023 2:17pmFreeTextSi tablet Orally Once a day; Note: Source Status: Continueprn; Provider: Blake Green PAlbuterol Sulfate (Proair Hfa) 90 mcg/actuation HFA aerosol bcqywgqFwweni1HJKULPPCCXNGBWXrmep 4 hoursMay 2023 12:00amFreeTextSi puffs as needed Inhalation every 4 hrs; Note: Source Status: RefillPRN; Refills: 1; Provider: Blake Green PComplies with drug therapyIbuprofen 800 mg gklphnJctgevguenjt009GOKBChebt times dailyMay 2023 12:00amJune 2023 2:17pmOmeprazole 40 mg capsule,delayed release(DR/EC)Bksuwytcmbhr6THNLJHpeiz morningy 2023 12:00amAugust 2023 12:43pmFreeTextSi capsule 30 minutes before morning meal Orally Once a day; Note: Source Status: Taking; Refills: 3; Provider: Blake Green PPotassium Chloride 10 mEq tablet,ER particles/wgcbjqogWvxtyrzhglse71USDRULotksFse 2023 12:00amJun2023 2:18pmBetamethasone Valerate 0.1 % creamDiscontinued1 APPLICTOPICALTwice dailyMay 2023 12:00amJune 2023 2:16pmFreeTextSi application Externally Twice a day; Note: Source Status: Taking; Refills: 0; Qty: 45Gram; Provider: Blake Green PLactobacillus Combination No.9 (Adult 50 Plus Probiotic) 4 billion cell capsuleDiscontinuedPOMay 2023 12:00amJun2023 2:17pmMultivitamin (Daily Multi-Vitamin) cbxpqtKrnzrg7URUYOUocye morningDecember 19, 2023 12:00amComplies with drug therapyLevothyroxine 88 mcg tablet Zwlqisbpdawi68SRLXKUuzhn722Aeu 29th, 2024 2:08pmJune 2023 2:28pmBaclofen 10 mg qemdvwNycjuc81CZXEFnkqr daily as neededDecember 08, 2024 12:00amComplies with drug therapyMeloxicam 7.5 mg tabletActive7.5MGPOTwice daily as neededMa2024 12:00amComplies with drug therapyMeclizine 25 mg slqbweZynhdbpkellu09SRLA Every 6 hours as needed for motion hbbdakwv521Hee 2024 12:00amOctober 2024 8:08amIbuprofen 800 mg qfkvucNeohrf764KZYQRmtqo times daily as needed for bsih200Oakuvsv 2024 12:00amComplies with drug therapy Immunizations Immunization Event Date Not Given Reason Dose Number [employer] Lot Number Reason(s) Given Vaccine Information Statement (VIS) Detail Administration Location Quadrivalent Influenza June 07, 2022 Tetanus, Diphtheria, Pertussis (Tdap)February 18, 2018Tetanus, Diphtheria, Pertussis (Tdap)December [id number] Medical Equipment Device Date Implanted Device Details MESH FLAT SHEET 7.5X15CM April 24, 2017 Relevant Diagnostic Tests and/or Laboratory Data Laboratory Results Test Collection Date/Time Result Date/Time Result Interpretation Reference Range Result Comment Performing Site Corrected White Blood Count May 15, 2025 8:18am May 15, 2025 8:45am 4.9 10*3/uL 3.8-11.6FP[facility] [id number] [address] [facility] [address]Qpphmgdsxrj WBC CountOctober 2024 8:18amOctober 2024 8:45am4.9 10*3/uL3.8-11.6FParkview Health [facility] [id number] [address] [facility] [address]Exr Blood CountOct2024 8:18amOctober 2024 8:45am4.59 10*6/uL3.60-5.00[facility] [id number] [address] [place] [address] 16895JjroiszxvhFpljkji 2024 8:18amOctober 2024 8:45am 13.4 g/dL11.8-15.4FParkview Health [facility] [id number] [address] [place] [address] 08672ZdvfbxgiacLzpkoar 2024 8:18amOctober 2024 8:45am 39.6 %34.0-46.4FParkview [facility] [id number] [address] [facility] [address]95[address]Dzsj Corpuscular VolumeOctober 2024 8:18amOctober 2024 8:45am86.3 pE34-237MtfpbdlpmDayton Osteopathic Hospital [facility] [id number] [address] [facility] [address]Rusw Corpuscular HemoglobinOctober 2024 8:18amOctober 2024 8:45am29.2 pg24.7-34.3FParkview Health [facility] [id number] [address] [facility] 30689Ezph Corpuscular Hemoglobin ConcentOct2024 8:18am May 15, 2025 8:45am33.8 g/dL32.0-35.0[facility] [id number] [address] [facility] [address]Fct Cell Distribution WidthOct2024 8:18amOct2024 8:45am13.5 %11.9-15.3FParkview [facility] [id number] [address] [facility] 165[address]Kopxehhf CountOct2024 8:18amOct2024 8:93qz751 10*3/hQ761-505UhfpagbxfDayton Osteopathic Hospital [facility] [id number] [address] [place] [address] 49[address]Ucbp Platelet VolumeOctober 2024 8:18amOct2024 8:45am7.1 fL6.3-10.7FParkview Health [facility] [id number] [address] [place] [address] 29854Ezugkvvdfwu (%) (Auto)May 15, 2025 8:18amOctober 2024 8:45am54.4 %.[facility] [id number] [address] [facility] [address]Polkuuphyio (%) (Auto)May 15, 2025 8:18amOctober 2024 8:45am33.8 %.[facility] [id number] [address] [facility] [address]Xlycfnjtb (%) (Auto)May 15, 2025 8:18amOctober 2024 8:45am8.6 %.[facility] [id number] [address] [facility] [address]Bmzqncbggzq (%) (Auto)May 15, 2025 8:18amOctober 2024 8:45am1.9 %.[facility] [id number] [address] [facility] [address]Jitigtgzn (%) (Auto)May 15, 2025 8:18amOctober 2024 8:45am1.3 %.[facility] [id number] [address] [facility] 71959Oaodzjfzp RBC Relative Count (auto)May 15, 2025 8:18am May 15, 2025 8:45am0.1 /100{WBC}0-0.5FParkview Health [facility] [id number] [address] [place] [address]1976[address]Neutrophils # (Auto)May 15, 2025 8:18amOctober 2024 8:45am2.7 10*3/uL1.8-7.7FParkview Health [facility] [id number] [address] [facility] [address]Zaetyyxjiub # (Auto)May 15, 2025 8:18amOctober 2024 8:45am1.7 10*3/uL1.00-4.8[facility] [id number] [address] [facility] [address]Pzpvelahi # (Auto)May 15, 2025 8:18amOctober 2024 8:45am0.4 10*3/uL0.0-0.8[facility] [id number] [address] [place] 6197670Eosinophils # (Auto)May 15, 2025 8:18amOctober 2024 8:45am0.1 10*3/uL0.0-0.45[facility] [id number] [address] [place] 61976[address]Basophils # (Auto)May 15, 2025 8:18amOctober 2024 8:45am0.1 10*3/uL0.0-0.2FParkview Health [facility] [id number] [address] [facility] [address]Ixssaht LevelOctober 2024 8:18amOctober 2024 9:07am 94 mg/hO77-112CDG recommended reference rangeRandom Glucose Reference Range is dependent on time and content of last meal. Glucose of more than 200 mg/dL in a nonstressed, ambulatory subject supports the diagnosisof Diabetes Mellitus. [facility] [id number] [address] [facility] 480[address]Dmroz Urea NitrogenOctober 2024 8:18amOctober 2024 9:07am13 mg/dL7-25[facility] [id number] [address] [place] [id number] 2024 8:18amOctober 2024 9:07am 0.57 mg/dLBelow low normal0.60-1.20[facility] [id number] [address] [facility] 50655Dbxutlpns GFR (CKD-EPI)May 15, 2025 8:18amOctober 2024 9:07am> 60.0 mL/MinDayton Osteopathic Hospital Ctr [id number] [address] [place] [id number] LevelOctober 2024 8:18amOctober 2024 9:07am 140 mmol/N051-497JlxeqswgsDayton Osteopathic Hospital Ctr [id number] [address] [place] 6[address]Potassium LevelOctober 2024 8:18amOctober 2024 9:07am4.3 mmol/L3.5-5.1FParkview Health [facility] [id number] [address] [facility] [address]40[address]Xjnvebbi LevelOctober 2024 8:18amOctober 2024 9:85ei340 mmol/F15-948RslnzlkpbDayton Osteopathic Hospital Ctr [id number] [address] [place] 6[address]Carbon Dioxide LevelOctober 2024 8:18amOctober 2024 9:07am31.8 mmol/LAbove high guangs87.0-31.0[facility] [id number] [address] [facility] [address]Lgqnp GapOct2024 8:18amOctober 2024 9:07am8.5 mEq/L6.0-15.0[facility] [id number] [address] [facility] [address]Ivilnfa LevelOct2024 8:18amOctober 2024 9:07am 9.0 mg/dL8.6-10.3FParkview Health [facility] [id number] [address] [facility] [address]Isdai ProteinOct2024 8:18amOctober 2024 9:07am 6.8 g/dL6.4-8.9[facility] [id number] [address] [facility] [address]LoqjjfmEsohqxu 24th, 2025 8:18amOctober 2024 9:07am3.9 g/dL3.5-5.7FParkview [facility] [id number] [address] [facility] [address]DxpmfwlhInvlisf 2024 8:18amOctober 2024 9:07am2.9 g/dLDayton Osteopathic Hospital Ctr [id number] [address] [facility] 27951Ufwojpy/Globulin RatioOct2024 8:18amOctober 2024 9:07am1.3FParkview [facility] [id number] [address] [facility] [address]Enagk BilirubinOctober 2024 8:18amOctober 2024 9:07am0.4 mg/dL0.3-1.0[facility] [id number] [address] [place] [address] 46982Vnbvoyfng Amino Transf (AST/SGOT)May 15, 2025 8:18am May 15, 2025 9:07am11 U/LBelow low tuylmk50-91FmwpjwjivDayton Osteopathic Hospital Ctr [id number] [address] [facility] 71077Ycxcdjz Aminotransferase (ALT/SGPT)May 15, 2025 8:18am May 15, 2025 9:07am6 U/LBelow low normal7-52[facility] [id number] [address] [facility] 118[address]Yvuxsgiz PhosphataseOctober 2024 8:18amOctober 2024 9:07am46 U/Y38-551JbrurmyfvDayton Osteopathic Hospital Ctr [id number] [address] [facility] [address]Wgqyofmlgis LevelOctober 2024 8:18amOctober 2024 9:63sd811 mg/dLAbove high dqvazw382-569Hrpg less than 200 mg/dl low riskChol 201-239 mg/dl borderline riskChol 240 mg/dl and greater high riskDayton Osteopathic Hospital Ctr [id number] [address] [facility] [address]448HSD CholesterolOctober 2024 8:18amOctober 2024 9:07am57 mg/rC10-97KMT CHOL ATP-III CLASSIFICATION Cardiovascular RiskHDL > or equal to 60 mg/dL LOWHDL < 40 mg/dL [facility] [id number] [address] [facility] [address]Zugwndpretjur LevelOctober 2024 8:18amOctober 2024 9:69vh153 mg/dL0-149TRIG ATP III CLASSIFICATIONTRIG less than 150 mg/dL NormalTRIG 150-199 mg/dL Borderline highTRIG 200-500 mg/dL High TRIG greater than 500 mg/dL Very highStandard traceable to the Center for Disease Conrtrol and Prevention (CDC) test method.[facility] [id number] [address] [facility] 68177LFB Cholesterol, CalculatedOctober 2024 8:18amOctober 2024 9:75qh619 mg/dLAbove high normal0-100LDL ATP III CLASSIFICATIONLDL less than 100 mg/dL OptimalLDL 100-129 mg/dL Near or above bkkrbkiOLE258-158 mg/dL Borderline highLDL 160-189 mg/dL HighLDL greater than 189 mg/dL Very high [facility] [id number] [address] [facility] [address]5586QNEC CholesterolOctober 2024 8:18amOctober 2024 9:07am23 mg/dLDayton Osteopathic Hospital Ctr [id number] [address] [facility] 68294Dwlacvqehjs/HDL RatioOctober 2024 8:18amOctober 2024 9:07am3.8<5.0[facility] [id number] [address] [facility] 13031Eyuq ThyroxineOct2024 8:18amOctober 2024 9:25am0.82 ng/dL0.61-1.12[facility] [id number] [address] [facility] 84069Lrnizkv Stimulating Hormone 3rd GenOctober 2024 8:18am May 15, 2025 9:21am0.96 u[iU]/mL0.45-5.33[facility] [id number] [address] [facility] 26325Kwcpqhxo Creatinine Clearance (ChemOctober 2024 8:18am May 15, 2025 9:07amN/AFParkview Health [facility] [id number] [address] [facility] 828[address]Yumjapgtiu S8tYxkvdto 2024 8:18amMay 15, 2025 11:14am5.7 %Above high normal4.3-5.6Increased risk for diabetes: 5.7 - 6.4diabetes: >6.4glycemic control for adults with diabetes: <7.0[facility] [id number] [address] [facility] 40893Koekzkcoe Average GlucoseOctober 2024 8:18amOctober 2024 11:01by309 mg/dLDayton Osteopathic Hospital Ctr [id number] [address] [facility] [address] Vital Signs Vital Reading Result Reference Range Collection Date/Time Height 72 [in_i] May 20, 2025 8:67iwWoctav859.96 kgOctober 2024 8:04amHeart Rate91 /sed60-263Xurptqn 2024 8:04amRespiratory rate16 /kat43-19Hrqqyvj 2024 8:04amOxygen saturation by Pulse efhovgxl56 %95-100Oct[facility] 2024 8:04amBP Ppxpridi329 mm[Hg]100-140Octad[facility]health [facility] 2024 8:04amBP Mntcmazff27 mm[Hg] 60-100Octadventhealth [facility] 2024 8:04amBMI (Body Mass Index)30.7 kg/n9Lpytpuv 2024 8:04am Advance Directives Advance Directive Response Recorded Date/ Time Advance Directives No March 3:21pm Insurance Providers Guarantor Darling Jackson Loroff Address [address] [facility] [address]Updsblr Info.Home Phone: Coverage Status Update:2025 Payer Group Member ID Coverage Type Subscriber Relationship to Subscriber Effective Date Expiration Date [employer] Id: [id number] L Loroff Id: [id number] [address] [facility] [address] [facility] [address] Home Phone: Email: Declined [phone] Encounters Encounter Location(s) Arrival/Admit Date Discharge/Departure Date Discharge/Departure Disposition Provider(s) Departed Clinical -Lab [facility] May 15, 2025 8:06am May 15, 2025 8:07am Discharged to home care or self care (routine discharge) Agusto Gamez DO Departed Physician/ Provider Office Visit -[facility] May 20, 2025 7:54am May 20, 2025 8:49am Discharged to home care or self care (routine discharge) Agusto Gamez DO Recent Diagnosis Onset Date Admit Date Bilateral foot pain Unknown April 7:54am Hypothyroidism Unknown May 20 7:54am Assessments Diagnosis Onset Date Resolution Status Admit Date [facility]ilateral foot [facility] 20[facility] 7:54amHypothyroidismacuteOctober 2024 7:54am Plan of Treatment Future Tests Future scheduled test information is unavailable Pending Tests Pending diagnostic test information is unavailable Future Visits Future appointment information is unavailable Future Procedures Procedure Name Ordered Date Scheduled Date Thyroid Stimulating Hormone May 20, 2025 8 :39am 6 Months Future Medications Future medication information is unavailable Patient Instructions Patient instructions are unavailable Hospital Discharge Instructions Ambulatory Orders* Referral to Podiatry Location: None Selected
--- OUTSIDE RECORDS SUMMARY | 2025-05-27 07:57 | XMS_ITS | Clinical Summary ---
Author Organization [facility] Address [address] [place] [address] Care Team Providers Care Audit Manager Name Role Phone Peter Lozano Agusto HOOVER Primary Care Provider [phone] Allergies Active AllergyReactionsCriticalityNoted DateCommentsIndomethacinSwelling 05/10/2018 Medications MedicationSigDispense QuantityRefillsLast FilledStart DateEnd DateStatus levothyroxine (SYNTHROID) 75 mcg tablet Take 75 mcg by mouth once daily.Active omeprazole (PRILOSEC) 40 mg capsule TAKE 1 CAPSULE BY MOUTH EVERY DAY 30 MINUTES BEFORE MORNING MEAL07/31/2020ctive LISA 0.25-35 mg-mcg per tablet Take 1 tablet by mouth once daily.1Active Active Problems ProblemNoted DateDiagnosed DatePain in right foot11/26/2017Chronic pain of right knee11/12/2017 Social History Tobacco UseTypesPacks/DayYears UsedDateSmoking Tobacco: FormerCigarettesQuit: 2006Smokeless Tobacco: Never Comments:Smoked 1 pack a wee k, quit in 2005, can't remember start date Alcohol UseStandard Drinks/WeekCommentsYes0 (1 standard drink = 0.6 oz pure alcohol)occArea Deprivation IndexAnswerDate RecordedNational Score (1-100), lower number is lower riskNot on file06/30/2020State Score (1-10), lower number is lower riskNot on file06/30/2020Data from: https://www.neighborhoodatlas.medicine.[facility].edu/. Last address used for calculationNot on file06/30/2020CommentsNoSex and Gender Information ValueDate RecordedSex Assigned at BirthNot on fileLegal MmhScpjub31/02/2016 3:38 PM EDTGender IdentityNot on fileSexual OrientationNot on file Last Filed Vital Signs Vital SignReadingTime TakenCommentsBlood Urjmpiri275/5503 1:28 PM EDT Nzbom8286 1:28 PM VVZOprjufmsglj52.5 ??C (97.7 ??F)10/13/2021 1:28 PM EDTRespiratory Rate--Oxygen Memvidpmnj49%10/13/2021 1:28 PM EDTInhaled Oxygen Concentration--Vawkln279.2 kg (254 lb)10/13/2021 1:28 PM ZXEArrltc021.9 cm (6') 10/13/2021 1:28 PM EDTBody Mass Index34.45010/13/2021 1:28 PM EDT Plan of Treatment Health MaintenanceDue DateLast DoneCommentsAnxiety Hmauawjvj45/26/2000Depression Ocrlppxkf41/26/2000HIV Vqlsgmmhz05/26/2000Hepatitis C Eagpedrkg37/26/2000 Hepatitis B Vaccine (1 of 3 - 19+ 3-dose series)2001Cervical Cancer Ubxqupzbs57/26/2003HPV Vaccine (1 - 3-dose SCDM series)2009Mammogram Cfgahsfqx61/26/2022Covid-19 Vaccine (1 - 2024- season)2025Influenza Vaccine (#1)2025DTaP,Tdap,Td Vaccine (2 - Td or Tdap) Insurance Care Teams Team MemberRelationshipSpecialtyStart DateEnd Date Peter Lozano DO [address] [place] [address] PCP - GeneralFancly Medicine11/22/15
--- OUTSIDE RECORDS SUMMARY | 2025-05-27 07:57 | XMS_ITS | Clinical Summary ---
Author Organization [facility] Address [address] [place] [address] Care Team Providers Care Director Of Field Coordination Name Role Phone Peter Lozano DO Primary Care Provider [phone] Allergies Active AllergyReactionsCriticalityNoted DateCommentsBenzonatateGI intolerance 01/25/20234348SqtubnofedqlWqkpueqo35/19/2018 Medications MedicationSigDispense QuantityRefillsLast FilledStart DateEnd DateStatus omeprazole (PriLOSEC) [address] capsule TAKE 1 CAPSULE BY MOUTH EVERY DAY 30 MINUTES BEFORE MORNING MEAL12/19/2022ctive Mary Lou 0.25-35 MG-MCG tablet Take 1 tablet by mouth in the morning.11/11/2022ctive ibuprofen 800 MG tablet TAKE 1 TABLET BY MOUTH THREE TIMES A DAY WITH FOOD OR MILK XYTADS4810/20/2022 Active albuterol HFA (Proventil HFA) 90 mcg/act inhaler every 4 (four) hours.Active Multiple Vitamin (multivitamin) tablet Take 1 tablet by mouth in the morning.Active traMADol (Ultram) 50 MG tablet TAKE 1 TABLET BY MOUTH FOUR TIMES A DAY GDBOXX8706/08/2023ctive levothyroxine (Synthroid, Levoxyl) 88 MCG tablet TAKE 1 TABLET BY MOUTH EVERY DAY IN THE MORNING ON EMPTY STOMACH FOR 90 DAYS 09/11/2023ctive HYDROcodone-acetaminophen (Piffard) 5-325 MG tablet TAKE 1 TABLET BY MOUTH EVERY 4-6 HOURS NEEDED FOR PAIN FOR 7 DAYS12/31/2023 Active Active Problems ProblemNoted DateDiagnosed DateSebaceous cyst09/10/2024Ventral hernia without obstruction or ayjrpegy66/18/2024eriumbilical abdominal pain4Breast cyst, left03/07/2023bnormal findings on diagnostic imaging of janncw1901/25/2023 Cyst of left lwdhbq0901/25/2023yst of right tuexud3601/25/2023Other chronic pain 01/25/2023eroneal wykhhfmdiq30/06/2023Second branchial cleft cyst01/25/2023 Umbilical hernia without obstruction and without lnmjtahy60/06/2023ain in right foot11/26/2017Chronic pain of right knee11/12/2017 Immunizations ImmunizationAdministration DatesNext TrxQbuu6102/18/2018 Family History Medical HistoryRelationNameCommentsUterine cancerMotherHypertensionOtherThyroid diseaseOtherBreast cancerNeg HxColon cancerNeg HxOvarian cancerNeg HxPancreatic cancerNeg YxPzjrldfcFxtkXhhnnlHfrtghptWrrcbdb3Vohxd0PfovozAxjccNqajckJagpbLumne Social History Tobacco UseTypesPacks/DayYears UsedDateSmoking Tobacco: FormerCigarettesQuit: 06/22/2006Smokeless Tobacco: Never Tobacco Cessation:Counseling Given: Not Answered Comments:Quit smoking 10 years ago Alcohol UseStandard Drinks/WeekCommentsNot Currently0 (1 standard drink = 0.6 oz pure alcohol)caffeine 1-2 cups/dayCommentsUnknownSex and Gender InformationValueDate RecordedSex Assigned at TybrzIawzrz77/29/2023 8:37 AM EDT Legal ApiGfdtnp74/15/2023 7:07 PM EDTGender WshlwbofYfjuzl54/29/2023 8:37 AM EDT Sexual GqjihoycnlnOerjeihn74/29/2023 8:37 AM EDT Last Filed Vital Signs Vital SignReadingTime TakenCommentsBlood Ryerzzkf686/70009/10/2024 3:25 PM EST Pulse--Temperature--Respiratory Rate--Oxygen Saturation--Inhaled Oxygen Concentration--Nmnjsi65 kg (205 lb)09/10/2024 3:25 PM CGLZrcplu236.9 cm (6') 09/10/2024 3:25 PM ESTBody Mass Index27.8009/10/2024 3:25 PM EST Plan of Treatment DateTypeDepartmentCare Team (Latest Contact Info)Pcisoqoqkek81/ 1:30 PM ESTOffice Visit [facility] [address] [id number] Luis Miguel Frausto, DPM FACFAS [address] [place] [address] Insurance Care Teams Team MemberRelationshipSpecialtyStart DateEnd Date Peter Lozano DO PCP - General01/25/23
--- OUTSIDE RECORDS SUMMARY | 2025-05-27 07:57 | XMS_ITS | Patient Health Record ---
Author Organization [facility] Address [address] [place] [address] [place] [address] Care Team Providers Care Teacher Instrumental Name Role Phone Guillermo Lozano DO Primary Care Provider UnavailDylan Zaragoza Unavailable [phone] Reason For Referral No Information Problems Problem Type SNOMED Code ICD Code Onset Dates Problem Status W/U Status Risk Notes Problem Plantar wart (86479808) Plantar wart (078 .12) ActiveconfirmedProblemPain in limb (40114903)Pain in soft tissues of limb (729.5)Activeconfirmed Plan Of Treatment No Information Medical (General) History Medical History History ICD Code asthma fractured jawSurgical History Surgery Date(Month/Year) jaw
--- OUTSIDE RECORDS SUMMARY | 2025-05-27 07:57 | XMS_ITS | Clinical Summary ---
Author Organization [facility] Address [address] [place] [address] Phone Care Team Providers Care Fire Hydrant Mechanic Name Role Phone Guillermo Lozano Esteban HOOVER Primary Care Provider [phone] Social History Tobacco UseTypesPacks/DayYears UsedDateSmoking Tobacco: Never Assessed CommentsUnknownSex and Gender InformationValueDate RecordedSex Assigned at Not on fileLegal FmsSbejhu29/25/2022 11:36 AM ESTGender IdentityNot on file Sexual OrientationNot on file Plan of Treatment Health MaintenanceDue DateLast DoneCommentsHIV Ottzmzvaw1982Lipid Panel 1982MMR Vaccines (1 of 1 - Standard series)1983Hepatitis C Screening 2000Hepatitis B Vaccines (1 of 3 - 19+ 3-dose series)2001HPV/Cotest 2003DTaP/Tdap/Td Vaccines (1 - Tdap)2004HPV Vaccines (1 - 3-dose standard series)04/17/20094504Fkxiahcoj91/26/2022ervical Cancer Zhlitpfch18/09/2023 Pap Smear/03/2020Yearly Adult Maunwsib97/, 02/28/2021, 12/30/2019Influenza Vaccine (#1)2025OVID-19 Vaccine ( - season)2025Zoster Vaccines (1 of 2)2032HIB VaccinesAged Out No longer eligible based on patient's age to complete this topicHepatitis A VaccinesAged OutNo longer eligible based on patient's age to complete this topic IPV VaccinesAged OutNo longer eligible based on patient's age to complete this topicMeningococcal VaccineAged OutNo longer eligible based on patient's age to complete this topicPneumococcal Vaccine: Pediatrics and At-Risk Adult Patients Aged OutNo longer eligible based on patient's age to complete this topic Rotavirus VaccinesAged OutNo longer eligible based on patient's age to complete this topic Care Teams Team MemberRelationshipSpecialtyStart DateEnd Date Guillermo Lozano DO [facility]11/30/15
--- OUTSIDE RECORDS SUMMARY | 2025-05-27 07:58 | XMS_ITS | Patient Health Record ---
Author Organization [facility] [place] Address [address] [place] [address] Care Team Providers Care Educational Psychologist Name Role Phone Peter Lozano DO Primary Care Provider Arthur Wade [phone] Allergies No Known Allergies Reason For Referral Reason Referral to [facility] PT Diagnosis 1 Plantar fascial fibr omatosis (M72.2) Referral Organization [facility] Referring Provider First Name Arthur Referring Provider Last Name Yoli Referring Provider Speciality Podiatry Referred Provider Specialty Physical The rapist Referral Priority Routine Reason Referral to linden Schmid Diagnosis 1 Plantar fascial fibr omatosis (M72.2) Referral Organization [facility] Referring Provider First Name Arthur Referring Provider Last Name Yoli Referring Provider Speciality Podiatry Referred Provider Specialty Pain Medicin e Referral Priority Routine Medications Medication SIG (Take, Route, Frequency, Duration) Notes Start Date End Date Status Esomeprazole Magnesium 40 MG 1 capsule Orally On ce a day ActiveLevothyroxine Sodium 88 MCG1 tablet in the morning on an empty stomach Orally Once a dayActivemethylPREDNISolone 4 MGas directed Synlad2403/25/2024ctive Meloxicam 15 MGTAKE 1 TABLET BY MOUTH EVERY DAY; Duration: 30ActiveMili 0.25-35 MG-MCG1 tablet Orally Once a dayActiveCentrumActive Social History Tobacco Use: Social History Observation Description Date Details (start date - stop date) Former Smoker NA - NA Tobacco Control (Standard) Question Answer Notes Tobacco use: Former smoker Problems Problem Type SNOMED Code ICD Code Onset Dates Problem Status W/U Status Risk Notes Problem Deformity of lower leg (02378512 0) Other specified acquired deformities of right lower leg (M21.861) ActiveconfirmedProblemAcquired deformity of left lower leg (disorder) (588079254540318)Other specified acquired deformities of left lower leg (M21.862)ActiveconfirmedProblemContracture of joint of right ankle (disorder) (390195260927314)Contracture, right ankle (M24.571)ActiveconfirmedProblem Contracture of joint of left ankle (disorder) (386828855826825)Contracture, left ankle (M24.572)ActiveconfirmedProblemLumbar radiculopathy (358594221) Radiculopathy, lumbar region (M54.16)ActiveconfirmedProblemLeft side sciatica (018225911749622)Sciatica, left side (M54.32)ActiveconfirmedProblemPlantar fascial fibromatosis (38760231)Plantar fascial fibromatosis (M72.2)Active confirmed Vital Signs Heart Rate 87 /min 06/17/2024 Xrfaobccpcq33.3 degrees Lbpcwwrgel97/26/9279Gxsrjlxm43 %06/17/20242984Pmsdlr29 in 06/17/2024 Encounters Encounter Location Date Provider Diagnosis [facility] [address] [place] [address] [place] [address] 06/27/2024 Arthur [facility] [facility] [place] [address]/26/2024daya [facility] fasc[facility] fibromatosis M72.2 ; Contracture, left ankle M24.572 ; Radiculopathy, lumbar vllsxjR75.16 and Sciatica, left side M54.32 Assessments Encounter Date Diagnosis (ICD Code) Assessment Notes Treatment Notes Treatment Clinical Notes Section Notes 06/17/2024 Plantar fascial fibromatosis ( D-10 - M72.2) Patient seen and evaluated. Patient education provided. I reviewed MRI and EMG with her as well as reviewed clinical findings. She has had heel pain for well over a year and relates that since pain has improved significantly however is still [...] to 6 weeks no new x-rays are fwdtnp2606/17/2024 Contracture, left ankle (ICD-10 - M24.572)06/17/2024adiculopathy, lumbar region (ICD-10 - M54.16)06/17/2024Sciatica, left side (ICD-10 - M54.32) Plan Of Treatment Pending Test Test Name Order Date MRI Ankle LT w/o contrast (Hind Foot) XR Foot 3 Views Bilateral 03/25/2024 XR foot KG min 3V 03/26/2024 Insurance Providers Payer Name Payer Address Payer Phone Subscriber Number Group Number Insured Name Patient Relationship to Insured Coverage Start Date Coverage End Date [employer] [place] [employer] [address] [place] [address] [id number] Haroon Ohara - patient is the insured Medical (General) History Medical History History ICD Code GERD fatty liverthyroid issuesSurgical History Surgery Date(Month/Year) jaw broke and 4 wisdom teeth extracted branchial cleft cyst removed on neckhernia oqesdtq4628xzycw breast cyst removed hernia agfbvfz1994
--- OUTSIDE RECORDS SUMMARY | 2025-05-27 08:00 | XMS_ITS | CCD ---
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 Role Phone DR PETER AHUMADA Primary [...] Provider Kuns, DO Peter Attending Provider Rolando, [facility] [place] Emergency Provider Severo ([facility]), [place] DELIA Orellana Attending Provider Acs, DO Peter Primary Care Provider [phone] Kuns, DO Peter Attending Provider Kuns, DO Peter Primary Care Provider Kuns, DO Peter Attending Provider Kuns, DO Peter Primary Care Provider Kuns, DO Peter Attending Provider Kuns, DO Peter Primary Care Provider Acs, DO Peter Referring Provider Self, Referral Attending Provider Unavailable MD Igor Rudd Emergency Provider Kuns, DO Peter Attending Provider [phone] Itzkowitz, DO Alber Attending Provider DO Chas Meza Attending Provider Kuns, DO Peter Primary Care Provider Kuns DO, Peter P Primary Care Provider Kuns, DO Peter Primary Care Provider Kuns, DO Peter Attending Provider JEAN CARLOS Martinez Attending Provider Peter Ahumada MD Primary Care Provider Blake HOOVER, Peter Primary Care Provider [phone] Blake HOOVER, Peter Attending Provider Robert Martinez DPM Attending Provider [phone] Blake DO, Peter Primary Care Provider Robert Martinez DPM Attending Provider [phone] Blake DO, Peter Primary Care Provider [phone] Robert Martinez DPM Attending Provider Itzkowialicia DO, Alber Attending Provider ITZKOWITZ, ALBER H Attending Unavailable ITZKOWITZ, ALBER H Attending Unavailable ITZKOWITZ, ALBER H Attending Unavailable ITZKOWITZ, ALBER H Attending Unavailable ITZKOWITZ, ALBER H Attending Unavailable ITZKOWITZ, ALBER H Attending Unavailable RAHUL CASTILLO Attending Unavailable ROBERT MARTINEZ Referring Unavailable Peter Ahumada DO Primary Care Provider [phone] Peter Ahumada DO Attending Provider [phone] Giedraitis , Andrius Vytautas Attending Unavailable Giedraitis , Andrius Vytautas Attending Unavailable Giedraitis , Andrius Vytautas Attending Unavailable Giedraitis , Andrius Vytautas Attending Unavailable Giedraitis , Christos Masters Attending Unavailable Isaíasitis , Andcorinne Masters Attending Unavailable Isaíasitis , Andcorinne Masters Attending Unavailable Isaíasitis , Andcorinne Masters Attending Unavailable Peter Ahumada DO Primary Care Provider [phone] Peter Ahumada DO Attending Provider [phone] Robert Martinez Admitting Unavailable Robert Martinez Attending Unavailable KunPeter silva Primary Care Unavailable HighlRobert mandel Admitting Unavailable Highlander, Robert Gallo Attending Unavailable Kuns, Peter Primary Care Unavailable Highlministerio, Peter D Admitting Unavailable Highlministerio, Robert Gallo Attending Unavailable Kunshira, Peter Primary Care Unavailable Itzkowitz, Alber Admitting Unavailable Itzkojoeytz, Alber Attending Unavailable Blake, Peter Attending Unavailable Kuns, Peter Admitting Unavailable Kuns, Peter Primary Care Unavailable Blake, Peter Attending Unavailable Kunshira, Peter Admitting Unavailable KunsPeter Primary Care Unavailable Peter Ahumada Attending Unavailable Kuns, Peter Admitting Unavailable Kuns Peter Primary Care Unavailable Allergies Allergy ClassificationReported Allergen(s)Allergy TypeDate of OnsetReaction(s) Facility (15 sources)IndomethacinDrug Fflqwez09-14-1234VytuigesXadyuvtvg Clinic (16 sources)benzonatateDrug Ebaauvk91-29-3264pluignkxLubvaofwtMer[facility] (6 sources)benzonatateDrug Kwqsjnx67-81-5594IF [facility] Work Phone: (1 source)benzonatateDrug Pgdhfpx54-12-9311RwpmcxvocHigh[facility] (1 source)IndomethacinDrug Mvdmdek34-25-5780ZfsepxvclHighland District Hospital Repository Medications Current Medications MedicationDrug Class(es)DatesSig (Normalized)Sig (Original)[id number] 200 actuat albuterol 0.09 mg/actuat metered dose inhaler (20 sources)beta2-Adrenergic AgonistStart: 54-20-4245yvep 2 puff(s) by inhalation every four hours as neededAlbuterol Sulfate (Proair Hfa) 90 mcg/actuation HFA aerosol inhaler Active 2 PUFF INHALATION Every 4 hours December 19, 2023 12:00am FreeTextSi puffs as needed Inhalation every 4 hrs; Note: Source Status: RefillPRN; Refills: 1; Provider: Blake Liz Complies with drug therapyStart: 04-24-2017 End: 56-50-6871czlq 1 puff(s) by inhalation every four to six hours as needed for wheezingAlbuterol Sulfate (Proventil Hfa) 90 mcg/actuation Hfa Aerosol Inhaler Discontinued 1 PUFF INHALATION EVERY 4-6 HOURS as needed for Shortness Of Breath Or Wheezing April 24, 2017 12:00am November 2:03pmStart: 98-56-9689kgky 2 puff(s) by inhalation every four hours as neededProAir HFA 108 (90 Base) MCG/ACT 2 puffs as needed Inhalation every 4 hrs PRN Mar, Activealbuterol HFA (Proventil HFA) 90 mcg/act inhaler every 4 (four) hours. Activebaclofen 10 mg oral tablet (3 sources)gamma-Aminobutyric Acid-ergic AgonistStart: 87-03-0843zgwz 1 tablet by mouth twice daily as neededBaclofen 10 mg tablet Active 10 MG PO Twice daily as needed December 08, 2024 12:00am Complies with drug therapyesomeprazole 40 mg delayed release oral capsule (14 sources)Proton Pump InhibitorStart: 30-66-1011oppd 1 capsule by mouth once dailyEsomeprazole Magnesium (Nexium) 40 mg capsule,delayed release(DR/EC) Active 40 MG PO Daily 90 3 June 10, 2024 1:00am Complies with drug therapyStart: 03-14-2024 End: 16-36-3517rbaj 1 capsule by mouth twice dailyEsomeprazole Magnesium (Nexium) 40 mg capsule,delayed release(DR/EC) Discontinued 40 MG PO Twice daily 180 1 March 14, 2024 12:00am June 10, 2024 4:43pmNorgestimate-Ethinyl Estradiol (20 sources)Progestin, EstrogenStart: 79-69-7560yogi 1 tablet by mouth once daily at bedtimeNorgestimate-Ethinyl Estradiol 0.25-35 mg-mcg tablet Active 1 TAB PO Daily at bedtime December 19, 2023 12:00am Complies with drug therapyStart: 74-46-9631qjrk 1 tablet by mouth once daily at bedtimeStart: 73-09-8490lfcn 1 tablet by mouth once daily at bedtimeNorgestimate-Ethinyl Estradiol 0.25-35 mg- mcg tablet Active 1 TAB PO Daily at bedtime December 19, 2023 12:00amStart: 00-30-6503kvcn 1 tablet by mouth once daily at bedtimeNorgestimate-Ethinyl Estradiol 0.25-35 mg-mcg tablet Active 1 TAB PO Daily at bedtime December 18, 2023 11:00pmStart: 39-44-6702dtxo 1 tablet by mouth once daily at bedtime Norgestimate-Ethinyl Estradiol Active 1 TAB PO Daily at bedtime December 19, 2023 12:00amStart: 46-98-1071ihoz 1 tablet by mouth once dailyNorgestimate-Ethinyl Estradiol Active 1 TAB PO Daily December 19, 2023 12:00amStart: 42-13-2022upyx 1 tablet by mouth in the morningMili 0.25-35 MG-MCG tablet Take 1 tablet by mouth in the morning. 11/11/2022 ActiveStart: 02-08-2021 End: 02-44-3922yvnw 1 tablet by mouth once dailyNorgestimate-Ethinyl Estradiol (Mary Lou) 0.25-35 mg-mcg tablet Discontinued 1 TAB PO Daily February 07, 2021 11:00pm December 19, 2023 1:04pmStart: 02-08-2021 End: 15-40-6466wjag 1 tablet by mouth once dailyNorgestimate-Ethinyl Estradiol (Mary Lou) 0.25-35 mg-mcg tablet Discontinued 1 TAB PO Daily February 08, 2021 12:00am December 19, 2023 2:04pmStart: 85-04-0496lqeu 1 tablet by mouth once daily Norgestimate-Ethinyl Estradiol (Mary Lou) 0.25-35 mg-mcg tablet Active 1 TAB PO Daily February 07, 2021 11:00pmStart: 29-48-3486pfod 1 tablet by mouth once daily Norgestimate-Ethinyl Estradiol (Mary Lou) 0.25-35 mg-mcg tablet Active 1 TAB PO Daily February 08, 2021 12:00amStart: 70-11-4175oyvb 1 tablet by mouth once daily MARY LOU 0.25-35 mg-mcg per tablet Take 1 tablet by mouth once daily. 09/15/2020 ActiveStart: 00-01-3199hnwp 1 tablet by mouth once dailyMILI 0.25-35 mg-mcg per tablet Take 1 tablet by mouth once daily. 0 09/15/2020 ActiveStart: 04-24-2017 End: 48-11-4380klgw 1 tablet by mouth once dailyNorgestimate-Ethinyl Estradiol (Sprintec (28)) 0.25-35 mg-mcg Tablet Discontinued 1 TAB PO Daily April 23, 2017 11:00pm February 08, 2021 9:37amStart: 04-24-2017 End: 53-78-9392jota 1 tablet by mouth once dailyNorgestimate-Ethinyl Estradiol (Sprintec (28)) 0.25-35 mg-mcg Tablet Discontinued 1 TAB PO Daily April 24, 2017 12:00am February 08, 2021 10:37amtake 1 tablet by mouth every twenty-four hoursNorgestimate-Eth Estradiol 0.25-35 MG-MCG 1 tablet Orally Once a day Active Comment on above:Take 1 tablet by mouth once daily.ibuprofen 800 mg oral tablet (20 sources)Nonsteroidal Anti-inflammatory DrugStart: 45-39-9304wjuk 1 tablet by mouth three times daily as needed for painIbuprofen 800 mg tablet Active 800 MG PO Three times daily as needed for pain 90 2 May 20, 2025 12:00am Complies with drug therapyStart: 10-20-2022 End: 56-87-0520fawg 1 tablet by mouth three times dailyIbuprofen 800 mg tablet Discontinued 800 MG PO Three times daily December 19, 2023 12:00am December 27, 2023 2:17pmStart: 03-12-2020 End: 46-05-6009vtpj 1 tablet by mouth every eight hours as needed for pain Ibuprofen 600 mg tablet Discontinued 600 MG PO Q8H as needed for pain 20 0 March 12, 2020 12:00am December 17, 2023 7:36amStart: 03-26-2018 End: 36-80-8713Fockyuteq 800 mg Tablet Discontinued 800 MG PO As Directed as needed for Pain March 26, 2018 12:00am March 12, 2020 8:22pmmeloxicam 7.5 mg oral tablet (3 sources)Nonsteroidal Anti-inflammatory DrugStart: 43-27-4137bqfm 1 tablet by mouth twice daily as neededMeloxicam 7.5 mg tablet Active 7.5 MG PO Twice daily as needed December 08, 2024 12:00am Complies withdrug therapyMultiple Vitamin (multivitamin) tablet (6 sources)take 1 tablet by mouth in the morningMultiple Vitamin (multivitamin) tablet Take 1 tablet by mouth in the morning. ActiveMultivitamin (Daily Multi- Vitamin) tablet (20 sources)Start: 46-36-5611bekd 1 tablet by mouth once daily in the morning Multivitamin (Daily Multi-Vitamin) tablet Active 1 TAB PO Every morning December 19, 2023 12:00am Complies with drug therapyStart: 01-28-2290fboa 1 tablet by mouth once daily in the morningStart: 09-26-1358netw 1 tablet by mouth once daily in the morningMultivitamin (Daily Multi-Vitamin) tablet Active 1 TAB PO Every morning December 18, 2023 11:00pmStart: 34-07-0467cqtf 1 tablet by mouth once daily in the morningMultivitamin (Daily Multi-Vitamin) tablet Active 1 TAB PO Every morning December 19, 2023 12:00amStart: 59-82-1917kvvz 1 tablet by mouth once dailyMultivitamin (Daily Multi-Vitamin) tablet Active 1 TAB PO Daily December 19, 2023 12:00amMultivitamin preparation (11 sources)take 1 tablet by mouth once dailyMulti Vitamin - 1 tablet Orally Once a day ActiveMultivitamin With Minerals (Hair,Skin And Nails) tablet (20 sources)Start: 78-58-9003widv 1 tablet by mouth once daily in the morning Multivitamin With Minerals (Hair,Skin And Nails) tablet Active 1 TAB PO Every morning March 06, 2024 2:25pm Complies with drug therapyStart: 03-65-1840cqrv 1 tablet by mouth once daily in the morningStart: 35-55-2445auib 1 tablet by mouth once daily in the morningMultivitamin With Minerals (Hair,Skin And Nails) tablet Active 1 TAB PO Every morning March 06, 2024 1:25pmStart: 03-06-2024 take 1 tablet by mouth once daily in the morningMultivitamin With Minerals (Hair,Skin And Nails) tablet Active 1 TAB PO Every morning March 06, 2024 2:25pmStart: 01-15-2024 End: 33-10-6350swxa 1 tablet by mouth once daily in the morningMultivitamin With Minerals (Hair,Skin And Nails) tablet Discontinued 1 TAB PO Every morning January 14, 2024 11:00pm March 06, 2024 1:25pmStart: 01-15-2024 End: 58-27-5015briy 1 tablet by mouth once daily in the morningMultivitamin With Minerals (Hair,Skin And Nails) tablet Discontinued 1 TAB PO Every morning January 15, 2024 12:00am March 06, 2024 2:25pmStart: 98-26-8878ylku 1 tablet by mouth once daily in the morningMultivitamin With Minerals (Hair,Skin And Nails) tablet Active 1 TAB PO Every morning January 15, 2024 12:00amProAir HFA 108 (90 Base) MCG/ACT (11 sources)Start: 41-47-9429nxje 2 puff(s) by inhalation every four hours as neededProAir HFA 108 (90 Base) MCG/ACT 2 puffs as needed Inhalation every 4 hrs for 90 days PRN Mar, ActiveStart: 05-34-8316kpcu 2 puff(s) by inhalation every four hours as neededProAir HFA 108 (90 Base) MCG/ACT 2 puffs as needed Inhalation every 4 hrs PRN Mar, Activeprobiotic (17 sources)probiotic ActiveVitamin D (Cholecalciferol) 1000 UNIT (17 sources)take 1 capsule by mouth once dailyVitamin D (Cholecalciferol) 1000 UNIT 1 capsule Orally Once a day Active Completed/Discontinued Medications MedicationDrug Class(es)DatesSig (Normalized)Sig (Original)acetaminophen 300 mg / codeine phosphate 30 mg oral tablet (20 sources)Opioid AgonistStart: 01-29-2024 End: 76-64-2326tskv 1 tablet by mouth every four to six hours as needed for pain Acetaminophen-Codeine 300-30 mg tablet Discontinued 1 TAB PO EVERY 4-6 HOURS as needed for pain 20 5 0 January 29, 2024 12:00am February 13, 2024 3:12pm Umbilical hernia Umbilical hernia without obstruction or gangreneStart: 03-26-2018 End: 21-79-8791tppc 1 tablet by mouth every six hours as needed for pain Acetaminophen-Codeine (Tylenol-Codeine #3) 300-30 mg tablet Discontinued 1 - 2 TAB PO Q6H as neededfor pain 30 5 0 March 26, 2018 12:00am March 30, 2018 12:00am March 31, 2018 12:02amDiffuse cystic mastopathy of right breastacetaminophen 325 mg / HYDROcodone bitartrate 5 mg oral tablet (20 sources)Opioid AgonistStart: 12-31-2023 End: 46-24-6832nkya 1 tablet by mouth every four to six hours as needed for pain Hydrocodone-Acetaminophen 5-325 mg tablet Discontinued 1 TAB PO EVERY 4-6 HOURS as needed for Pain 28 7 0 December 31, 2023 February 13, 2024 3:12pm Contusion of multiple sites Unspecified multiple injuries, initial encounterStart: 12-19-2023 End: 79-86-0149mqae 1 tablet by mouth every four to six hours as needed for pain Hydrocodone-Acetaminophen 5-325 mg tablet Discontinued 1 TAB PO EVERY 4-6 HOURS as needed for Pain 28 10 0 December 19, 2023 December 19, 2023 9:39am Contusion of multiple sites Unspecified multiple injuries, initial encounterStart: 12-19-2023 End: 18-73-4703jros 1 tablet by mouth every four to six hours as needed for pain Hydrocodone-Acetaminophen 5-325 mg tablet Discontinued 1 TAB PO EVERY 4-6 HOURS as needed for Pain 28 7 0 December 19, 2023 December 19, 2023 12:03pm Contusion of multiple sites Unspecified multiple injuries, initial encounterStart: 12-17-2023 End: 06-11-5292cwyq 1 tablet by mouth every four to six hours as needed for pain Hydrocodone-Acetaminophen 5-325 mg tablet Discontinued 1 TAB PO EVERY 4-6 HOURS as needed for Pain 28 7 0 December 19, 2023 December 31, 2023 7:42am Contusion of multiple sites Unspecified multiple injuries, initial encounterStart: 04-24-2017 End: 81-17-0022gqjk 2 tablets by mouth every four to six hours as needed for painHydrocodone-Acetaminophen ([place]) 5-325 mg tablet Discontinued 2 TAB PO EVERY 4-6 HOURS as needed for pain 30 0 April 24, 2017 12:00am March 26, 2018 9:04amacetaminophen 325 mg / oxyCODONE hydrochloride 5 mg oral tablet (20 sources)Opioid AgonistStart: 11-01-2022 End: 39-87-9775pzxy 1 tablet by mouth every six hours as needed for pain Oxycodone-Acetaminophen 5-325 mg tablet Discontinued 1 TAB PO Q6H as needed for pain 12 3 0 November 01, 2022 December 17, 2023 7:36am Epiploic appendagitis Other specified diseases of intestineAlbuterol Sulfate (Proventil Hfa) 90 mcg/actuation Hfa Aerosol Inhaler (20 sources)Start: 04-24-2017 End: 67-14-8153mdxz 1 puff(s) by inhalation every four to six hours as needed for wheezingAlbuterol Sulfate (Proventil Hfa) 90 mcg/actuation Hfa Aerosol Inhaler Discontinued 1 PUFF INHALATION EVERY 4-6 HOURS as needed for Shortness Of Breath Or Wheezing April 24, 2017 12:00am November 2:03pmStart: 04-24-2017 End: 73-88-1466vshq 1 puff(s) by inhalation every four to six hours as needed for wheezingAlbuterol Sulfate (Proventil Hfa) 90 mcg/actuation Hfa Aerosol Inhaler Discontinued 1 PUFF INHALATION EVERY 4-6 HOURS as needed for Shortness Of Breath Or Wheezing April 23, 2017 11:00pm November 1:03pmStart: 04-24-2017 End: 19-01-8024znul 1 puff(s) by inhalation every four to six hoursAlbuterol Sulfate (Proventil Hfa) 90 mcg/actuation Hfa Aerosol Inhaler Discontinued 1 PUFF INHALATION EVERY 4-6 HOURS April 24, 2017 12:00am December 19, 2023 2:03pmStart: 35-06-0950qdct 1 puff(s) by inhalation every four to six hoursAlbuterol Sulfate (Proventil Hfa) 90 mcg/actuation Hfa Aerosol Inhaler Active 1 PUFF INHALATION EVERY 4-6 HOURS April 23, 2017 11:00pmStart: 64-30-3676ixza 1 puff(s) by inhalation every four to six hoursAlbuterol Sulfate (Proventil Hfa) 90 mcg/actuation Hfa Aerosol Inhaler Active 1 PUFF INHALATION EVERY 4-6 HOURS April 24, 2017 12:00amazithromycin 250 mg oral tablet (20 sources)Macrolide AntimicrobialStart: 11-30-2023 End: 48-53-0166Qfkumbivjuiu (Zithromax) 250 mg tablet Discontinued 0 PO .COMPLEX 6 1 November 30, 2023 12:00am December 17, 2023 7:36am For 250 mg dose pack: take 500 mg today (day 1), then 250 mg for 4 days (days 2-5) POStart: 78-66-0998Nxbgnkqod Z-Hill 250 MG 2 tablets on the first day, then 1 tablet daily for 4 days Orally Once a dayfor 5 day(s) May, Activebetamethasone 1 mg/ml topical cream (20 sources)CorticosteroidStart: 12-19-2023 End: 80-07-8213Vgavtfalccwjf Valerate 0.1 % cream Discontinued 1 APPLIC TOPICAL Twice daily December 19, 2023 12:00amJun2023 2:16pm FreeTextSi application Externally Twice a day; Note: Source Status: Taking; Refills: 0; Qty: 45 Gram; Provider: Blake Green PStart: 12-19-2023 End: 75-15-4605Xutnchijktvwd Valerate Discontinued 1 APPLIC TOPICAL Twice daily December 19, 2023 12:00am December 27, 2023 2:16pm FreeTextSi application Externally Twice a day; Note: Source Status: Taking; Refills: 0; Qty: 45 Gram; Provider: Blake Green PStart: 61-51-4957Oexnzrbscvsnz Valerate 0.1 % 1 application Externally Twice a day Feb, ActiveStart: 03-21-2023 Betamethasone Valerate 0.1 % 1 application Externally Twice a day Feb, Activecephalexin 500 mg oral capsule (20 sources)Cephalosporin AntibacterialStart: 02-08-2021 End: 10-74-7994ktxe 1 capsule by mouth four times dailyCephalexin 500 mg capsule Discontinued 500 MG PO Four times daily 40 10 0 February 08, 2021 12:00am November 01, 2022 10:30amcholecalciferol 0.025 mg oral capsule (20 sources)Vitamin DStart: 12-19-2023 End: 78-15-7299eptp 1 capsule by mouth once dailyCholecalciferol (Vitamin D3) 25 mcg (1,000 unit) capsule Discontinued 1 CAP PO Daily December 182:00am December 27, 2023 2:16pm FreeTextSi capsule Orally Once a day; Note: Source Status: Taking; Provider: Blake Green ( )diclofenac sodium 75 mg delayed release oral tablet (20 sources)Nonsteroidal Anti-inflammatory DrugStart: 12-19-2023 End: 22-79-4902ewze 1 tablet by mouth twice dailyDiclofenac Sodium 75 mg tablet,delayed release (DR/EC) Discontinued 75 MG PO Twice daily December 19, 2023 12:00am December 27, 2023 2:17pmStart: 11-01-2022 End: 44-28-9865nnuc 1 tablet by mouth twice daily as needed for painDiclofenac Sodium 75 mg tablet,delayed release (DR/EC) Discontinued 75 MG PO Twice daily as needed for pain November 01, 2022 12:00am December 17, 2023 7:36amStart: 58-31-9631Fniczbuu 2 % 2 pumps Externally Twice a day samples provided Feb, Activefurosemide 40 mg oral tablet (20 sources)Loop DiureticStart: 12-19-2023 End: 06-08-6117kxwa 1 tablet by mouth once dailyFurosemide (Lasix) 40 mg tablet Discontinued 40 MG PO Daily December 19, 2023 12:00am December 27, 2023 2:17pm FreeTextSi tablet Orally Once a day; Note: Source Status: Continueprn; Provider: Blake Green PStart: 31-37-3164baxs 1 tablet by mouth every twenty-four hoursLasix 40 MG 1 tablet Orally Once a day prn Oct, ActiveLactobacillus Combination No.4 (Probiotic) 3 billion cell Capsule (20 sources)Start: 04-24-2017 End: 13-31-3039gnus 3 capsules by mouth once dailyLactobacillus Combination No.4 (Probiotic) 3 billion cell Capsule Discontinued 3000 MMU CELLS PO Daily April 23, 2017 11:00pm March 26, 2018 8:04amStart: 04-24-2017 End: 48-48-0383dwet 3 capsules by mouth once dailyLactobacillus Combination No.4 (Probiotic) 3 billion cell Capsule Discontinued 3000 MMU CELLS PO Daily April 24, 2017 12:00am March 26, 2018 9:04amLactobacillus Combination No.9 (Adult 50 Plus Probiotic) 4 billion cell capsule (20 sources)Start: 12-19-2023 End: 08-62-4108Ovybgphqylrwv Combination No.9 (Adult 50 Plus Probiotic) 4 billion cell capsule Discontinued PO 2023 11:00pm December 27, 2023 1:17pm Start: 12-19-2023 End: 46-57-3002Fffktziwvevqd Combination No.9 (Adult 50 Plus Probiotic) 4 billion cell capsule Discontinued PO 2023 12:00am December 27, 2023 2:17pm levothyroxine sodium 0.088 mg oral tablet (20 sources)l-ThyroxineStart: 09-11-2023 End: 55-14-3029xijt 1 tablet by mouth once dailyLevothyroxine 88 mcg tablet Discontinued 88 MCG PO Daily 90 December 19, 2023 2:08pm January 1442:28pm Start: 04-00-6037dgqq 1 tablet by mouth once daily in the morningSynthroid 88 MCG 1 tablet in the morning on an empty stomach Orally Once a day for 90 days *Dose change Feb, ActiveStart: 99-56-3906smxx 1 tablet by mouth once daily in the morningSynthroid 88 MCG 1 tablet in the morning on an empty stomach Orally Once a day for 90 days *Dose change Feb, ActiveStart: 04-21-2018 take 1 tablet by mouth once dailylevothyroxine (SYNTHROID) 75 mcg tablet Take 75 mcg by mouth once daily. 1 04/21/2018 ActiveStart: 34-88-0596yejr 1 tablet by mouth every twenty-four hoursSynthroid 75 MCG 1 tablet Orally Once a day Feb, ActiveStart: 04-24-2017 End: 13-43-3996lpei 3 tablets by mouth once dailyLevothyroxine 25 mcg Tablet Discontinued 75 MCG PO Daily April 24, 2017 12:00am December 19, 2023 2:04pm Start: 04-24-2017 End: 63-52-6138inlo 75 ug by mouth once dailyLevothyroxine Discontinued 75 MCG PO Daily April 24, 2017 12:00am December 19, 2023 2:04pmComment on above:Take 75 mcg by mouth once daily.meclizine hydrochloride 25 mg oral tablet (3 sources)AntiemeticStart: 12-08-2024 End: 08-15-4243rfxu 1 tablet by mouth every six hours as neededMeclizine 25 mg tablet Discontinued 25 MG PO Every 6 hours as needed for motion sickness 30 December 08, 2024 12:00am May 20, 2025 8:08amomeprazole 40 mg delayed release oral capsule (20 sources)Proton Pump InhibitorStart: 03-31-2020 End: 94-03-2172ebcl 1 capsule by mouth once daily in the morningOmeprazole 40 mg capsule,delayed release(DR/EC) Discontinued 1 CAP PO Every morning December 19, 2023 12:00am March 14, 2024 12:43pm FreeTextSi capsule 30 minutes before morning meal Orally Once a day; Note: Source Status: Taking; Refills: 3; Provider: Blake Green PComment on above:TAKE 1 CAPSULE BY MOUTH EVERY DAY 30 MINUTES BEFORE MORNING MEALondansetron 4 mg disintegrating oral tablet (20 sources)Serotonin-3 Receptor AntagonistStart: 02-08-2021 End: 14-43-2480zhww 1 tablet by mouth every six hours as needed for nausea and vomitingOndansetron 4 mg tablet,disintegrating Discontinued 4 MG PO Q6H as needed for nausea and vomiting 14 February 08, 2021 12:00am November 01, 2022 10:30amphenazopyridine hydrochloride 200 mg oral tablet (20 sources)Start: 02-08-2021 End: 78-97-6412uipk 1 tablet by mouth three times daily as needed for pain Phenazopyridine (Pyridium) 200 mg tablet Discontinued 200 MG PO Three times daily as needed for pain 10 February 08, 2021 12:00am November 01, 2022 10:30am administer with a full glass of water with each mealmicroencapsulated potassium chloride 10 meq extended release oral tablet (20 sources)Start: 12-19-2023 End: 19-59-1993yjll 1 tablet by mouth once dailyPotassium Chloride 10 mEq tablet,ER particles/crystals Discontinued 10 MEQ PO Daily December 19, 2023 12:00am December 27, 2023 2:18pmStart: 78-65-2946dluo 1 tablet by mouth once daily as neededK-Dur 10 meq 1 tablet orally daily prn Oct, ActivepredniSONE 20 mg oral tablet (20 sources)Start: 11-30-2023 End: 93-13-9280Zuicrcpmlf 20 mg tablet Discontinued 20 MG PO .COMPLEX 15 0 November 30, 2023 12:00am December 17, 2023 7:36am 20 mg orally BID X 5 DAYS, QD X 5 DAYS; Start: 56-28-9021xowd 1 tablet by mouth every twenty-four hourspredniSONE 20 MG 1 tablet Orally Once a day for 30 day(s) May, ActiveStart: 05-24-2023 predniSONE 20 MG 1 tablet by mouth twice a day for five days, then daily for five days Orally as directed May, ActivetraMADol hydrochloride 50 mg oral tablet (20 sources)Opioid AgonistStart: 06-08-2023 End: 75-17-0396Udeqswvm 50 mg tablet Discontinued 50 MG PO December 19, 2023 12:00am January 15, 2024 2:27pmStart: 01-44-2008arlh 1 tablet by mouth every six hourstraMADol HCl 50 MG 1 tablet as needed Orally QID prn Jan, Active Problems Active Problems Problem ClassificationProblemDateDocumented DateEpisodic/ChronicAbdominal hernia (20 sources)Ventral hernia without obstruction or gangrene; Translations: [Umbilical hernia]Onset: 76-34-6972MqahyaktZfriivpee pain (20 sources)Right upper quadrant pain; Translations: [Liver pain]Onset: 30-93-6844EeokiypvFiuwo bronchitis (2 sources)Acute bronchitis, unspecifiedEpisodicAllergic reactions (17 sources)Hand eczema; Translations: [Dermatitis, unspecified]EpisodicAsthma (20 sources)Unspecified asthma, uncomplicated; Translations: [Asthma]Onset: 854257-54-9076EgrtnxhQefwxvif mellitus without complication (20 sources)Hyperglycemia, unspecified; Translations: [Prediabetes]Onset: 03-28-0335GjaovvtiCrybnonuy of lipid metabolism (20 sources)Hyperlipidemia; Translations: [Hyperlipidemia, unspecified]Onset: 10-17-2021 Resolved: 04-81-8441TiaxnraD Codes: Fall (20 sources)Fall on same level; Translations: [Fall on same level, unspecified, initial encounter]02-26-5132CyglqkpuX Codes: Natural/environment (1 source)Bitten or stung by nonvenomous insect and other nonvenomous arthropods, initial encounterEpisodicEsophageal disorders (20 sources)Gastroesophageal reflux disease; Translations: [Gastro-esophageal reflux disease without esophagitis]Onset: 04-20-2021 Resolved: 54-77-9647KezsmrvKpmrmvly of upper limb (7 sources)Closed fracture of phalanx of little finger; Translations: [Fracture of unspecified phalanx of leftlittle finger, subsequent encounter for fracture with routine healing]41-39-8683AbrmjchxRsegfxwi of upper limb (20 sources)Elbow fracture; Translations: [Unspecified fracture of lower end of right humerus, initial encounter for closed fracture]82-05-4629Pjjjdvwi Immunizations and screening for infectious disease (5 sources)Contact with and (suspected) exposure to other viral communicable diseases; Translations: [Exposureto viral disease]EpisodicMalaise and fatigue (6 sources)Asthenia; Translations: [Weakness]Onset: 10-17-2021 Resolved: 02-18-2299YvvcztchTfwjzkvkh disorders (16 sources)Excessive and frequent menstruation; Translations: [Excessive and frequent menstruation with regular cycle]ChronicNeoplasms of unspecified nature or uncertain behavior (20 sources)Neoplastic disease of uncertain behavior; 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, unspecified]Onset: 10-17-2021 Resolved: 67-15-3512LjsxgplzHpynoldlkmgt breast conditions (20 sources)Fibrocystic disease of breast; Translations: [Diffuse cystic mastopathy of unspecified breast]20-73-5011QuyokirWbkvjrdyyquv breast conditions (20 sources)Cyst of breast; Translations: [Solitary cyst of right breast]Onset: 126999-86-2440JoprgtiqJvnshfacxxm chest pain (20 sources)Chest pain; Translations: [Chest pain, unspecified]Onset: 10-17-2021 Resolved: 42-62-0275SiirypjePnlp wounds of extremities (20 sources)Laceration of left knee; Translations: [Laceration without foreign body, left knee, initial encounter]71-84-8535QxojnixpOqnkl aftercare (1 source)Other surgical dental assistant (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 therapy; Translations: [OTH DIRECTOR OF CORPORATE MARKETING CURRENT DRUG THERAPY]Onset: 52-75-0366WozyigdwQzgoi aftercare (5 sources)Removal of sutures done; Translations: [Encounter for removal of sutures]EpisodicOther and unspecified benign neoplasm (13 sources)Dermatofibroma; Translations: [Other benign neoplasm of skin, unspecified]EpisodicOther and unspecified benign neoplasm (1 source)Other benign neoplasm of skin, unspecifiedEpisodicOther congenital anomalies (5 sources)Branchial cleft cyst; 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, fistula and cyst of branchial cleft]ChronicOther congenital anomalies (6 sources)Second branchial cleft cyst; 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, fistula and cyst of branchial cleft]Onset: 647122-53-7022AbocmqzXapzn connective tissue disease (5 sources)Bilateral plantar fasciitis; Translations: [Plantar fascial fibromatosis]EpisodicOther connective tissue disease (4 sources)Foot pain; Translations: [Pain in right foot]58-29-5263HgahwadvNzywg connective tissue disease (4 sources)Pain in both feet; Translations: [Pain in right foot]06-10-2024 EpisodicOther gastrointestinal disorders (17 sources)Heartburn; Translations: [Heartburn]EpisodicOther gastrointestinal disorders (20 sources)Epiploic appendagitis; Translations: [Other specified diseases of intestine]87-63-2928DbxgrqsfQdtho gastrointestinal disorders (1 source)Change in bowel habitEpisodicOther gastrointestinal disorders (3 sources)Diarrhea, unspecified; Translations: [Diarrhea]75-39-4623Ybhngbez Other injuries and conditions due to external causes (20 sources)Contusion of multiple sites; Translations: [Unspecified multiple injuries, initial encounter]88-60-2424YimxtkdxYqzli liver diseases (1 source)Other specified diseases of liver; Translations: [OTHER SPECIFIED DISEASES OF LIVER]Onset: 81-87-6516JvsopruCztdc liver diseases (20 sources)Steatosis of liver; Translations: [Fatty (change of) liver, not elsewhere classified]82-21-7583EpxcobrZykiz liver diseases (17 sources)Lesion of liver; Translations: [Liver disease, unspecified]Chronic Other liver diseases (2 sources)Liver disease, unspecified; Translations: [Liver lesion K76.9]Onset: 04-20-2021 Resolved: 42-18-2125JprkzxfSdsgu liver diseases (1 source)Fatty (change of) liver, not elsewhere classified; Translations: [Other chronic nonalcoholic liver disease]48-43-5238BwdiyauUkaqi lower respiratory disease (5 sources)Snoring; Translations: [Snoring]EpisodicOther lower respiratory disease (5 sources)Dyspnea; Translations: [Shortness of breath]EpisodicOther nervous system disorders (6 sources)Chronic pain; Translations: [Other chronic pain]Onset: 01-25-2023 90-25-7002FztheqeRhurm non-traumatic joint disorders (20 sources)Pain in right knee; Translations: [Pain in joint, lower leg]Onset: 405188-79-3912EuxwsvzoLhwkw non-traumatic joint disorders (5 sources)Swollen ankle region; Translations: [Effusion, right ankle]Episodic Other non-traumatic joint disorders (5 sources)Effusion of joint of left ankle; Translations: [Effusion, left ankle] EpisodicOther non-traumatic joint disorders (1 source)Pain in left hipEpisodicOther non-traumatic joint disorders (20 sources)Pain in elbow; Translations: [Pain in right elbow]14-75-9698Jvdnnkwu Other non-traumatic joint disorders (14 sources)Pain in right elbow; Translations: [Pain in joint, upper arm] 54-69-6771XzkspnxeFygmt nutritional; endocrine; and metabolic disorders (17 sources)Body mass index 30+ - obesity; Translations: [Body mass index (BMI) 31.0-31.9, adult]ChronicOther nutritional; endocrine; and metabolic disorders (1 source)Body mass index (BMI) 31.0-31.9, adult; Translations: [BMI 31.0- 31.9,adult Z68.31]Onset: 04-20-2021 Resolved: 81-00-9358TckcvltFnxsk nutritional; endocrine; and metabolic disorders (5 sources)Weight gain; Translations: [Abnormal weight gain]EpisodicOther nutritional; endocrine; and metabolic disorders (5 sources)Overweight in adulthood with body mass index of 25 or more but less than 30; Translations: [Body mass index (BMI) 27.0-27.9, adult]09-09-2024 EpisodicOther nutritional; endocrine; and metabolic disorders (2 sources)Body mass index (BMI) 27.0-27.9, adult; Translations: [Body Mass Index 27.0-27.9, adult]47-15-1902QgaqksyxTkdre screening for suspected conditions (not mental disorders or infectious disease) (18 sources)Mammography abnormal; Translations: [Other abnormal and inconclusive findings on diagnostic imagingof breast]Onset: 56-58-9396NvaaccflKunfn skin disorders (5 sources)Mass of neck; Translations: [Localized swelling, mass and lump, neck] EpisodicOther skin disorders (17 sources)Epidermoid cyst; Translations: [Epidermal cyst]EpisodicOther skin disorders (4 sources)Senile hyperkeratosis; Translations: [Other seborrheic keratosis] EpisodicOther skin disorders (13 sources)Seborrheic keratosis; Translations: [Other seborrheic keratosis] EpisodicOther skin disorders (1 source)Other seborrheic keratosisEpisodicOther skin disorders (7 sources)Mass of body vtevswmdx57-14-2027LubeavraOeouh skin disorders (8 sources)Sebaceous cyst of skin; Translations: [Sebaceous cyst]Onset: 121731-51-4774RtkasiiqPldnx upper respiratory disease (5 sources)Respiratory tract congestion; Translations: [Nasal congestion] EpisodicOther upper respiratory infections (5 sources)Sore throat symptom; Translations: [Acute pharyngitis, unspecified] EpisodicResidual codes; unclassified (17 sources)H/O: breast problem; Translations: [Personal history of other specified conditions]EpisodicResidual codes; unclassified (1 source)Personal history of other specified conditionsEpisodicResidual codes; unclassified (1 source)Localized edemaEpisodicScreening and history of mental health and substance abuse codes (1 source)Personal history of nicotine dependence; Translations: [PERSONAL HISTORY OF NICOTINE DEPEND]Onset: 46-10-2086UokdolosDyxocbaxfwo; intervertebral disc disorders; other back problems (20 sources)Degeneration of lumbosacral intervertebral disc; Translations: [Other intervertebral disc degeneration, lumbosacral region]ChronicSpondylosis; intervertebral disc disorders; other back problems (2 sources)Radiculopathy, lumbar region; Translations: [Lumbosacral radiculopathy]EpisodicThyroid disorders (20 sources)Hypothyroidism; Translations: [Hypothyroidism, unspecified]Onset: 10-17-2021 Resolved: 23-80-8960KviefffDvctxdqvevdf (2 sources)M79.671 - Pain in right foot,M79.672 - Pain in left footUrinary tract infections (20 sources)Pyelonephritis; Translations: [Tubulo-interstitial nephritis, not specified as acute or chronic]88-68-8841Ldqzzfdd Past or Other Problems Problem ClassificationProblemDateDocumented DateEpisodic/ChronicOther connective tissue disease (9 sources)Pain in right foot; Translations: [Pain in right foot]Onset: 941611-77-7215XqtdcryaYdkws connective tissue disease (1 source)Pain in left arm; Translations: [Arm pain, left M79.602]Onset: 04-20-2021 Resolved: 04-18-2410AuaijhpuSwfev connective tissue disease (6 sources)Peroneal tendinitis; Translations: [Peroneal tendinitis, unspecified leg]Onset: 213043-10-9905MabllcpmBrqao connective tissue disease (2 sources)Pain in right foot; Translations: [Pain in limb]Onset: 05-19-2024 31-24-4366TdyfvmndHszdy connective tissue disease (1 source)Plantar fascial fibromatosis; Translations: [Plantar fascial fibromatosis]Onset: 84-86-2218TjladdlzJxatz skin disorders (1 source)Other hypertrophic disorders of the skinOnset: 10-17-2021 Resolved: 42-09-5446XzojnfevAkahm skin disorders (1 source)Sebaceous cyst; Translations: [Sebaceous cyst]Onset: 09-29-2024 Episodic Results Test NameValueInterpretationReference AaugmUtaxsjdoE2D with Estimated Average Gluon 76-16-7200Psaplwg [Mass/Vol]117 mg/dLNoCritical access hospital Physician Group Comment on above:Result Comment: PERFORMED BY: [facility] [address] [place] [address] PATHOLOGIST MOBILE EQUIPMENT OPERATOR SAURABH JOHNSON M.D.Performed By: #### A1C WT eA, CBC, T4F, LIPID, CMP, TSH3 ####[address] [place] [address] USAAlanine aminotransferase [Enzymatic activity/volume] in Serum or PlasmaOrdered By: Peter Ahumada on 98-41-1062FYL [Catalytic activity/Vol]6 U/LLow7-52High[facility] District HospitalComment on above:Performed By: #### A1C WTH eA, CBC, T4F, LIPID, CMP, TSH3 ####[address] [address] USAAlbumin [Mass/volume] in Serum or Plasma by Bromocresol green (BCG) dye binding methoOrdered By: Peter Ahumada on 44-65-8210Xggnfqz BCG dye [Mass/Vol]3.9 g/dL3.5-5.7FChillicothe HospitalAlkaline phosphatase [Enzymatic activity/volume] in Serum or PlasmaOrdered By: Peter Ahumada on 72-33-2183MRO [Catalytic activity/Vol]46 U/F88-164ShhsxrvxoHighland District HospitalComment on above:Performed By: #### A1C WTH eA, CBC, T4F, LIPID, CMP, TSH3 ####[address] [address] USAAspartate aminotransferase [Enzymatic activity/volume] in Serum or PlasmaOrdered By: Peter Ahumada on 38-71-8315NZO [Catalytic activity/Vol]11 U/BMkp34-58RayzvziiiHighland District HospitalComment on above:Performed By: #### A1C WTH eA, CBC, T4F, LIPID, CMP, TSH3 ####[facility] [id number] USABasophils [#/volume] in Blood by Automated countOrdered By: Peter Ahumada on 47-90-4769Arfomnylm (Bld) [#/Vol]0.1 10*3/uL0.0-0.2FChillicothe HospitalComment on above:Result Comment: PERFORMED BY: [facility] [address] [place] [address] PATHOLOGIST MOBILE EQUIPMENT OPERATOR SAURABH JOHNSON M.D.Performed By: #### A1C WTH eA, CBC, T4F, LIPID, CMP, TSH3 #### [facility] [address] [place] [address] USABasophils/100 leukocytes in Blood by Automated count Ordered By: Peter Ahumada on 48-10-4598Pqxbpzmtu/100 WBC (Bld)1.3 %.[facility] District HospitalComment on above:Performed By: #### A1C WTH eA, CBC, T4F, LIPID, CMP, TSH3 #### [facility] [address] [place] [address] USABilirubin.total [Mass/volume] in Serum or PlasmaOrdered By: Peter Ahumada on 86-10-1999Zckcxzhnl [Mass/Vol]0.4 mg/dL0.3-1.0High[facility] District HospitalComment on above:Performed By: #### A1C WTH eA, CBC, T4F, LIPID, CMP, TSH3 ####[facility] [id number] [id number] USABlood estimated average glucose determination by estimation from glycated hemoglobinOrdered By: Peter Ahumada on 20-88-3515Crcqgjc glucose Estimated from glycated hemoglobin (Bld) [Mass/Vol]117 mg/dLHighland District HospitalCalcium [Mass/volume] in Serum or PlasmaOrdered By: Peter Ahumada on 84-08-7388Siuxmnc [Mass/Vol]9.0 mg/dL8.6-10.3[facility] Comment on above:Performed By: #### A1C WT eA, CBC, T4F, LIPID, CMP, TSH3 ####[facility] [place] [address] USACarbon dioxide, total [Moles/volume] in Serum or PlasmaOrdered By: Peter Ahumada on 60-65-6465MF6 [Moles/Vol]31.8 mmol/LHigh21.0-31.0[facility] HospitalComment on above:Performed By: #### A1C WT eA, CBC, T4F, LIPID, CMP, TSH3 ####[address] [place] [address] [place] Chloride [Moles/volume] in Serum or PlasmaOrdered By: Peter Ahumada on 05-15-2025 Chloride [Moles/Vol]104 mmol/U87-780IeveggaomHighland District HospitalComment on above:Performed By: #### A1C WT eA, CBC, T4F, LIPID, CMP, TSH3 ####[address] [address] USACholesterol [Mass/volume] in Serum or PlasmaOrdered By: Peter Ahumada on 32-11-0459Zhobrswtfvc [Mass/Vol]215 mg/kBOwmp070-005FkppmfslaHighland District HospitalComment on above: Chol less than 200 mg/dl low riskChol 201-239 mg/dl borderline riskChol 240 mg/dl and greater high riskResult Comment: Chol less than 200 mg/dl low risk Chol 201-239 mg/dl borderline risk Chol 240 mg/dl and greater high riskPerformed By: #### A1C WT eA, CBC, T4F, LIPID, CMP, TSH3 ####[address] [address] USACholesterol in HDL [Mass/volume] in Serum or PlasmaOrdered By: Peter Ahumada on 98-99-5681Qacdwgyzxdb in HDL [Mass/Vol]57 mg/vV48-45ItfbgfrlcHighland District HospitalComment on above:HDL CHOL ATP-III CLASSIFICATION Cardiovascular RiskHDL > or equal to 60 mg/dL LOWHDL < 40 mg/dL HIGHResult Comment: HDL CHOL ATP-III CLASSIFICATION Cardiovascular Risk HDL > or equal to 60 mg/dL LOW HDL < 40 mg/dL HIGHPerformed By: #### A1C WTH eA, CBC, T4F, LIPID, CMP, TSH3 ####[facility] [address] [place] [address] [place] Cholesterol in LDL Calc [Mass/Vol]Ordered By: Peter Ahumada on 05-15-2025 Cholesterol in LDL [Mass/Vol]135 mg/dLHigh0-100[facility] Comment on above:LDL ATP III CLASSIFICATIONLDL less than 100 mg/dL OptimalLDL 100-129 mg/dL Near or above loqwmlmUOT637-993 mg/dL Borderline highLDL 160-189 mg/dL HighLDL greater than 189 mg/dL Very highCholesterol in VLDL Calc [Mass/Vol]Ordered By: Peter Ahumada on 73-49-3351Juvlhtuzzbj in VLDL [Mass/Vol]23 mg/dLHighland District HospitalComplete Blood Count Auto Diffon 46-51-2458Mqnd Corpuscular HGB Conc33.8 g/gMZymbet94.0-35.0[facility] Physician GroupComment on above:Performed By: #### A1C WT eA, CBC, T4F, LIPID, CMP, TSH3 #### [facility] [address] [place] [address] USANRBC%0.1 /100{WBC}Normal0-0.5The [facility] Physician [facility] Comment on above:Performed By: #### A1C WT eA, CBC, T4F, LIPID, CMP, TSH3 #### [facility] [address] [place] [address] USAWhite Blood Count4.9 [CFU]/mLNormal3.8-11.6The [facility] Physician GroupComment on above:Performed By: #### A1C WTH eA, CBC, T4F, LIPID, CMP, TSH3 #### [facility] [address] [place] [address] USAComprehensive Metabolic Panelon 59-02-4569Wtgrxlo [Mass/Vol]3.9 g/dLNormal3.5-5.7The [facility] Physician GroupComment on above: Performed By: #### A1C WTH eA, CBC, T4F, LIPID, CMP, TSH3 ####[facility] [place] [address] USAGFR/1.73 sq M.predicted MDRD (S/P/Bld) [Vol rate/Area]mL/min/{1.73_m2}NormalThe [facility]ician Group Comment on above:Performed By: #### A1C WTH eA, CBC, T4F, LIPID, CMP, TSH3 ####[facility] [place] [address] [place] Creatinine [Mass/volume] in Serum or PlasmaOrdered By: Peter Ahumada on 05-15-2025 Creatinine [Mass/Vol]0.57 mg/dLLow0.60-1.20[facility] Comment on above:Performed By: #### A1C WTH eA, CBC, T4F, LIPID, CMP, TSH3 ####[facility] [place] [address] [place] Eosinophils [#/volume] in Blood by Automated countOrdered By: Peter Ahumada on 80-41-0486Ycjvixvdbmv (Bld) [#/Vol]0.1 10*3/uL0.0-0.45High[facility] HospitalComment on above:Performed By: #### A1C WTH eA, CBC, T4F, LIPID, CMP, TSH3 #### [facility] [address] [place] [address] USAEosinophils/100 leukocytes in Blood by Automated count Ordered By: Peter Ahumada on 92-98-1133Qgbsfdwyhmn/100 WBC (Bld)1.9 %.[facility] District HospitalComment on above:Performed By: #### A1C WTH eA, CBC, T4F, LIPID, CMP, TSH3 #### [facility] [address] [place] [address] USAErythrocyte distribution width [Ratio] by Automated count Ordered By: Peter Ahumada on 14-87-6535Vzpwoljfnus distribution width (RBC) [Ratio] 13.5 %11.9-15.3FChillicothe HospitalComment on above:Performed By: #### A1C WTH eA, CBC, T4F, LIPID, CMP, TSH3 #### [facility] [address] [place] [address] USAErythrocytes [#/volume] in Blood by Automated countOrdered By: Peter Ahumada on 72-57-0542VKQ (Bld) [#/Vol]4.59 10*6/uL3.60-5.00High[facility] District HospitalComment on above:Performed By: #### A1C WTH eA, CBC, T4F, LIPID, CMP, TSH3 #### [facility] [address] [place] [address] USAGlomerular filtration rate [Volume Rate/Area] in Serum, Plasma or Blood by CreatinineOrdered By: Peter Ahumada on 20-81-0738Beomzxzcrl filtration rate [Volume Rate/Area] in Serum, Plasma or Blood by Creatinine> 60.0 mL/MinHighland District HospitalGlucose [Mass/volume] in Serum or Plasma Ordered By: Peter Ahumada on 41-92-2741Riuvxoy [Mass/Vol]94 mg/uA95-876AqaumqbqoHighland District HospitalComment on above:ADA recommended reference rangeRandom Glucose Reference Range is dependent on time and content of last meal. Glucose of more than 200 mg/dL in a nonstressed, ambulatory subject supports the diagnosisof Diabetes Mellitus.Result Comment: Random Glucose Reference Range is dependent on time and content of last meal. Glucose of more than 200 mg/dL in a nonstressed, ambulatory subject supports the diagnosis of Diabetes Mellitus. ADA recommended reference rangePerformed By: #### A1C WTH eA, CBC, T4F, LIPID, CMP, TSH3 ####[facility] [address] [place] [address] USAHematocrit [Volume Fraction] of Blood by Automated countOrdered By: Peter Ahumada on 00-80-8257Lqenlfqfzz (Bld) [Volume fraction]39.6 %34.0-46.4FChillicothe HospitalComment on above:Performed By: #### A1C WTH eA, CBC, T4F, LIPID, CMP, TSH3 #### [facility] [address] [place] [address] USAHemoglobin A1c/Hemoglobin.total in BloodOrdered By: Peter Ahumada on 90-90-3710RuL4v (Bld) [Mass fraction]5.7 %High4.3-5.6FChillicothe HospitalComment on above:Increased risk for diabetes: 5.7 - 6.4diabetes: >6.4glycemic control for adults with diabetes: <7.0Result Comment: Increased risk for diabetes: 5.7 - 6.4 diabetes: >6.4 glycemic control for adults with diabetes: <7.0Performed By: #### A1C WTH eA, CBC, T4F, LIPID, CMP, TSH3 ####[facility] [address] [place] [address] USAHemoglobin [Mass/volume] in BloodOrdered By: Peter Ahumada on 59-67-9978Gbanuermwl (Bld) [Mass/Vol]13.4 g/dL11.8-15.4FChillicothe HospitalComment on above:Performed By: #### A1C WTH eA, CBC, T4F, LIPID, CMP, TSH3 #### [facility] [address] [place] [address] USALeukocytes [#/volume] corrected for nucleated erythrocytes in Blood by Automated counOrdered By: Peter Ahumada on 28-38-7368VQN corrected for nucl RBC Auto (Bld) [#/Vol]4.9 10*3/uL3.8-11.6FChillicothe Hospital Leukocytes [#/volume] in Blood by Automated countOrdered By: Peter Ahumada on 83-81-8603DQT (Bld) [#/Vol]4.9 10*3/uL3.8-11.6FChillicothe Hospital Comment on above:Performed By: #### A1C WTH eA, CBC, T4F, LIPID, CMP, TSH3 #### [facility] [address] [place] [address] USALipid Panelon 53-09-8818GQM Cholesterol,Tvesdknijv728 mg/dLHigh0-100The [facility] Physician GroupComment on above:Result Comment: LDL ATP III CLASSIFICATION LDL less than 100 mg/dL Optimal LDL 100-129 mg/dL Near or above optimal LDL 130-159 mg/dL Borderline high LDL 160-189 mg/dL High LDL greater than 189 mg/dL Very highPerformed By: #### A1C WTH eA, CBC, T4F, LIPID, CMP, TSH3 ####[facility] [place] [address] USATriglyceride w/Ysihei057 mg/dLNormal0-149[facility] Comment on above:Result Comment: TRIG ATP III CLASSIFICATION TRIG less than 150 mg/dL Normal TRIG 150-199 mg/dL Borderline high TRIG 200-500 mg/dL High TRIG greater than 500 mg/dL Very high Standard traceable to the Center for Disease Conrtrol and Prevention (CDC) test method.Performed By: #### A1C WTH eA, CBC, T4F, LIPID, CMP, TSH3 ####[id number] USAVLDL CXVNXKZXAQK60 mg/dLNormalThe [facility] Physician GroupComment on above: Performed By: #### A1C WTH eA, CBC, T4F, LIPID, CMP, TSH3 ####[facility] [place] [address] USALymphocytes [#/volume] in Blood by Automated countOrdered By: Peter Ahumada on 37-20-1125Vlgbydprfzg (Bld) [#/Vol]1.7 10*3/uL1.00-4.8High[facility] HospitalComment on above: Performed By: #### A1C WTH eA, CBC, T4F, LIPID, CMP, TSH3 #### [facility] [address] [place] [address] USALymphocytes/100 leukocytes in Blood by Automated count Ordered By: Peter Ahumada on 12-78-8129Buqugazzezz/100 WBC (Bld)33.8 %.[facility] District HospitalComment on above:Performed By: #### A1C WTH eA, CBC, T4F, LIPID, CMP, TSH3 #### [facility] [address] [place] [address] USAMCH [Entitic mass] by Automated countOrdered By: Peter Ahumada on 98-91-9271AME (RBC) [Entitic mass]29.2 pg24.7-34.3FChillicothe HospitalComment on above:Performed By: #### A1C WTH eA, CBC, T4F, LIPID, CMP, TSH3 #### [facility] [address] [place] [address] USAHC Auto (RBC) [Mass/Vol]Ordered By: Peter Ahumada on 57-61-6728TWNV (RBC) [Mass/Vol]33.8 g/dL32.0-35.0High[facility] District HospitalMCV [Entitic volume] by Automated countOrdered By: Peter Ahumada on 69-91-9427CXB (RBC) [Entitic vol]86.3 bM54-269ZdwmmmywqHighland District Hospital Comment on above:Performed By: #### A1C WTH eA, CBC, T4F, LIPID, CMP, TSH3 #### [facility] [address] [place] [address] USAMonocytes [#/volume] in Blood by Automated countOrdered By: Peter Ahumada on 16-68-5156Fkltibbgj (Bld) [#/Vol]0.4 10*3/uL0.0-0.8[facility] HospitalComment on above:Performed By: #### A1C WTH eA, CBC, T4F, LIPID, CMP, TSH3 #### [place] [address] USAMonocytes/100 leukocytes in Blood by Automated count Ordered By: Peter Ahumada on 40-22-8509Spwcothbp/100 WBC (Bld)8.6 %.[facility] District HospitalComment on above:Performed By: #### A1C WTH eA, CBC, T4F, LIPID, CMP, TSH3 #### [facility] [facility] [address] [place] [address] USANeutrophils [#/volume] in Blood by Automated countOrdered By: Peter Ahumada on 68-98-5230Ijmhywbmytt (Bld) [#/Vol]2.7 10*3/uL1.8-7.7FChillicothe HospitalComment on above:Performed By: #### A1C WTH eA, CBC, T4F, LIPID, CMP, TSH3 #### [facility] [address] [place] [id number] USANeutrophils/100 leukocytes in Blood by Automated count Ordered By: Peter Ahumada on 12-34-7609Twyfokbpcvq/100 WBC (Bld)54.4 %.[facility] District HospitalComment on above:Performed By: #### A1C WTH eA, CBC, T4F, LIPID, CMP, TSH3 #### [facility] [address] [place] [id number] USANo Panel InformationOrdered By: Peter Ahumada on 05-15-2025 Pharmacy Creatinine Clearance (ChemN/[facility] HealthNucleated erythrocytes [Presence] in Blood by Automated countOrdered By: Peter Ahumada on 12-14-9155Zsrlgkavw RBC Auto Ql (Bld)0.1 /100{WBC}0-0.5FChillicothe HospitalPlatelet mean volume [Entitic volume] in Blood by Automated count Ordered By: Peter Ahumada on 65-85-9084Rafvbdno mean volume (Bld) [Entitic vol]7.1 fL6.3-10.7FChillicothe HospitalComment on above:Performed By: #### A1C WTH eA, CBC, T4F, LIPID, CMP, TSH3 #### [facility] [address] [place] [id number] USAPlatelets [#/volume] in Blood by Automated countOrdered By: Peter Ahumada on 08-34-5337Ygvtirlkg (Bld) [#/Vol]314 10*3/kZ525-135BozcjdzahHighland District HospitalComment on above:Performed By: #### A1C WTH eA, CBC, T4F, LIPID, CMP, TSH3 #### [facility] [address] [place] [id number] USAPotassium [Moles/volume] in Serum or PlasmaOrdered By: Peter Ahumada on 10-39-6710Pyjrjasbe [Moles/Vol]4.3 mmol/L3.5-5.1FChillicothe HospitalComment on above:Performed By: #### A1C WTH eA, CBC, T4F, LIPID, CMP, TSH3 ####[place] [address] USAProtein [Mass/volume] in Serum or PlasmaOrdered By: Peter Ahumada on 05-15-2025 Protein [Mass/Vol]6.8 g/dL6.4-8.9High[facility] District HospitalComment on above:Performed By: #### A1C WTH eA, CBC, T4F, LIPID, CMP, TSH3 ####[place] [id number] USASerum globulin measurement by calculation (mass/volume)Ordered By: Peter Ahumada on 05-15-2025 Globulin (S) [Mass/Vol]2.9 g/dLHighland District HospitalComment on above:Performed By: #### A1C WTH eA, CBC, T4F, LIPID, CMP, TSH3 ####[place] [address] USASerum or plasma albumin/globulin mass ratioOrdered By: Peter Ahumada on 97-23-6569[place]/Globulin [Mass ratio]1.3 {ratio}Highland District HospitalComment on above: Performed By: #### A1C WTH eA, CBC, T4F, LIPID, CMP, TSH3 ####[place] [address] USASerum or plasma anion gap determinationOrdered By: Peter Ahumada on 06-50-9925Pxdce gap [Moles/Vol]8.5 mmol/L 6.0-15.0High[facility] District HospitalComment on above:Performed By: #### A1C WTH eA, CBC, T4F, LIPID, CMP, TSH3 ####[place] [id number] USASerum or plasma total cholesterol/high density lipoprotein (HDL) cholesterol mass ratOrdered By: Peter Ahumada on 05-15-2025 Cholesterol.total/Cholesterol in HDL [Mass ratio]3.8 {ratio}<5.0High[facility] District HospitalComment on above:Performed By: #### A1C WTH eA, CBC, T4F, LIPID, CMP, TSH3 ####[place] [id number] [place] [id number] USASodium [Moles/volume] in Serum or PlasmaOrdered By: Peter Ahumada on 63-89-1384Tuerha [Moles/Vol]140 mmol/P946-176JkopsaofsHighland District Hospital Comment on above:Performed By: #### A1C [facility] eA, CBC, T4F, LIPID, CMP, TSH3 ####[place] [id number] [facility] Thyrotropin [Units/volume] in Serum or PlasmaOrdered By: Peter Ahumada on 81-28-2095AUB Qn0.96 m[IU]/L0.45-5.33Highland District HospitalComment on above:Result Comment: PERFORMED BY: [facility] [address] [place] [address] PATHOLOGIST MOBILE EQUIPMENT OPERATOR SAURABH JOHNSON M.D.Performed By: #### A1C [facility] eA, CBC, T4F, LIPID, CMP, TSH3 ####[place] [phone] [facility] Thyroxine (T4) free [Mass/volume] in Serum or PlasmaOrdered By: Peter Ahumada on 60-96-1282Oiwu T4 [Mass/Vol]0.82 ng/dL0.61-1.12[facility] Comment on above:Performed By: #### A1C [facility] eA, CBC, T4F, LIPID, CMP, TSH3 ####[place] [id number] [facility] Triglyceride [Mass/volume] in Serum or PlasmaOrdered By: Peter Ahumada on 53-92-2623Jznhrkcxiblm [Mass/Vol]117 mg/dL0-149[facility] Comment on above:TRIG ATP III CLASSIFICATIONTRIG less than 150 mg/dL NormalTRIG 150-199 mg/dL Borderline highTRIG 200-500 mg/dL High TRIG greater than 500 mg/dL Very highStandard traceable to the Center for Disease Conrtrol and Prevention (CDC) test method.Urea nitrogen [Mass/volume] in Serum or PlasmaOrdered By: Peter Ahumada on 46-95-6630Xuoj nitrogen [Mass/Vol]13 mg/dL02-13High[facility] District HospitalComment on above:Performed By: #### A1C [facility] eA, CBC, T4F, LIPID, CMP, TSH3 ####[id number] [place] [id number] USAMM screening mammo BI w/CADon 46-65-5126NU screening mammo BI w/CAD[facility] [address] [place], [place] [id number] Mammography Report Signed Patient: Darling Khanna MR#: [id number] : 1980 Acct:[id number] Age/Sex: 44 / F Adm Date: 01/27/25 Loc: [place] Room: Type: [facility] Attending Dr: Peter Ahumada DO Ordering Provider: Peter Ahumada DO Date of Service: 01/27/25 Procedure(s): MM screening mammo BI w/CAD Accession Number(s): ([id number]) MM/MM screening mammo BI w/CAD: Z12.39 - [...] Stovall M.D. 01/27/2025 9:02 AM Dictation Location: DWS01 Dictated By: Osmani Stovall DO 01/27/2559 Signed By: 01/27/[address] [place] [address] Physician GroupMammography reportOrdered By: Osmani Stovall on 33-50-3765Jfppbrcyms imaging [facility] [address] [place] [address] Mammography Report Signed Patient: Darling Khanna MR#: [id number] : 1980 Acct:[id number] Age/Sex: 44 / F Adm Date: 5 Loc: [place] Room: Type: [facility] Attending Dr: Peter Ahumada DO Ordering Provider: Peter Ahumada DO Date of Service: 01/27/25 Procedure(s): MM screening mammo BI w/CAD Accession Number(s): ([id number]) MM/MM screening mammo BI w/CAD: Z12.39 - [...] Stovall M.D. 01/27/2025 9:02 AM Dictation Location: DWS01 Dictated By: Osmani Stovall DO 01/27/25 0859 Signed By: 01/27/25 0902 High[facility] District HospitalA1C with Estimated Average Gluon 12-05-2024 Glucose [Mass/Vol]117 mg/dLNoCritical access hospital Physician GroupComment on above: Result Comment: PERFORMED BY: [place] [address] PATHOLOGIST MOBILE EQUIPMENT OPERATOR PADILLA LYMAN M.D.Performed By: #### TSH3, CBC, A1C WTH eA, LIPID, CMP, T4F #### [facility] [address] [place], [place] [address] USAAlanine aminotransferase [Enzymatic activity/volume] in Serum or PlasmaOrdered By: Peter Ahumada on 08-42-1787SFJ [Catalytic activity/Vol]6 U/LLow7-52High[facility] District HospitalComment on above:Performed By: #### TSH3, CBC, A1C WTH eA, LIPID, CMP, T4F #### [facility] [address] [place] [address] USAAlbumin [Mass/volume] in Serum or Plasma by Bromocresol green (BCG) dye binding methoOrdered By: Peter Ahumada on 86-47-4055Ouhrpet BCG dye [Mass/Vol]3.7 g/dL3.5-5.7FChillicothe HospitalAlkaline phosphatase [Enzymatic activity/volume] in Serum or PlasmaOrdered By: Peter Ahumada on 10-77-3083DTH [Catalytic activity/Vol]42 U/BFjnjqs94-509HfwoyqpflHighland District HospitalComment on above:Performed By: #### TSH3, CBC, A1C WTH eA, LIPID, CMP, T4F #### [facility] [address] [place] [address] USAAspartate aminotransferase [Enzymatic activity/volume] in Serum or PlasmaOrdered By: Peter Ahumada on 11-55-1060CWG [Catalytic activity/Vol] 12 U/QYtw11-24NybmhgezwHighland District HospitalComment on above:Performed By: #### TSH3, CBC, A1C WTH eA, LIPID, CMP, T4F #### [facility] [address] [place] [address] USABasophils [#/volume] in Blood by Automated countOrdered By: Peter Ahumada on 81-29-8549Zwvpcvcqv (Bld) [#/Vol]0.1 10*3/uLNormal0.0-0.2 [facility] HospitalComment on above:Result Comment: PERFORMED BY: [place] [address] PATHOLOGIST MOBILE EQUIPMENT OPERATOR PADILLA LYMAN M.D.Performed By: #### TSH3, CBC, A1C WTH eA, LIPID, CMP, T4F #### [place] [id number] USABasophils/100 leukocytes in Blood by Automated count Ordered By: Peter Ahumada on 81-59-4320Wzvqfhdqi/100 WBC (Bld)0.8 %Normal.High[facility] District HospitalComment on above:Performed By: #### TSH3, CBC, A1C WTH eA, LIPID, CMP, T4F #### [place] [address] USABilirubin.total [Mass/volume] in Serum or PlasmaOrdered By: Peter Ahumada on 32-16-6476Cbfjvgfnl [Mass/Vol]0.3 mg/dLNormal0.3-1.0[facility] District HospitalComment on above:Performed By: #### TSH3, CBC, A1C WTH eA, LIPID, CMP, T4F #### [facility] [address] [place], [place] [address] USABlood estimated average glucose determination by estimation from glycated hemoglobinOrdered By: Peter Ahumada on 56-12-1231Kllnwul glucose Estimated from glycated hemoglobin (Bld) [Mass/Vol]117 mg/dLHighland District HospitalCalcium [Mass/volume] in Serum or PlasmaOrdered By: Peter Ahumada on 28-90-5976Ztvbipb [Mass/Vol]8.5 mg/dLLow8.6-10.3FChillicothe HospitalComment on above:Performed By: #### TSH3, CBC, A1C WTH eA, LIPID, CMP, T4F #### [address] [place] [address] USACarbon dioxide, total [Moles/volume] in Serum or Plasma Ordered By: Peter Ahumada on 18-75-1298PX5 [Moles/Vol]29.8 mmol/SStpkyz96.0-31.0 [facility] HospitalComment on above:Performed By: #### TSH3, CBC, A1C WTH eA, LIPID, CMP, T4F #### [facility] [address] [place] [address] USAChloride [Moles/volume] in Serum or PlasmaOrdered By: Peter Ahumada on 05-41-0962Cdlpdryh [Moles/Vol]105 mmol/DMspssk64-369HdzlkauqrHighland District HospitalComment on above:Performed By: #### TSH3, CBC, A1C WTH eA, LIPID, CMP, T4F #### [facility] [address] [place] [address] USACholesterol [Mass/volume] in Serum or PlasmaOrdered By: Peter Ahumada on 88-83-8883Xmgcfuctspq [Mass/Vol]151 mg/cSGnnnis078-554FejbkkuekHighland District HospitalComment on above:Chol less than 200 mg/dl low riskChol 201-239 mg/dl borderline riskChol 240 mg/dl and greater high riskResult Comment: Chol less than 200 mg/dl low risk Chol 201-239 mg/dl borderline risk Chol 240 mg/dl and greater high riskPerformed By: #### TSH3, CBC, A1C WTH eA, LIPID, CMP, T4F #### [facility] [address] [place] [address] USACholesterol in HDL [Mass/volume] in Serum or PlasmaOrdered By: Peter Ahumada on 71-48-9225Opxztbaqjpr in HDL [Mass/Vol]50 mg/oBDbiotn07-85 [facility] HospitalComment on above:HDL CHOL ATP-III CLASSIFICATION Cardiovascular RiskHDL > or equal to 60 mg/dL LOWHDL < 40 mg/dL HIGHResult Comment: HDL CHOL ATP-III CLASSIFICATION Cardiovascular Risk HDL > or equal to 60 mg/dL LOW HDL < 40 mg/dL HIGHPerformed By: #### TSH3, CBC, A1C WTH eA, LIPID, CMP, T4F #### [facility] [address] [place] [id number] USACholesterol in LDL Calc [Mass/Vol]Ordered By: Peter Ahumada on 66-47-0504Kjiheutjkqz in LDL [Mass/Vol]84 mg/dL0-100High[facility] District HospitalComment on above:LDL ATP III CLASSIFICATIONLDL less than 100 mg/dL OptimalLDL 100-129 mg/dL Near or above dpkrjxrJQV128-470 mg/dL Borderline highLDL 160-189 mg/dL HighLDL greater than 189 mg/dL Very highCholesterol in VLDL Calc [Mass/Vol]Ordered By: Peter Ahumada on 52-37-4623Eyizlzvwzxg in VLDL [Mass/Vol]16 mg/dLHighland District HospitalComplete Blood Count Auto Diffon 31-60-5057Koup Corpuscular HGB Conc33.5 g/oRYxmdib08.0-35.0[facility] Physician GroupComment on above:Performed By: #### TSH3, CBC, A1C WTH eA, LIPID, CMP, T4F #### [facility] [address] [place] [address] USANRBC%0.0 /100{WBC}Normal0-0.5The [facility] Comment on above:Performed By: #### TSH3, CBC, A1C WTH eA, LIPID, CMP, T4F #### [facility] [address] [place] [id number] USAComprehensive Metabolic Panelon 58-18-3517Unwwwpk [Mass/Vol]3.7 g/dLNormal3.5-5.7The [facility] Physician GroupComment on above: Performed By: #### TSH3, CBC, A1C WTH eA, LIPID, CMP, T4F #### [facility] [address] [place] [id number] USAGFR/1.73 sq M.predicted MDRD (S/P/Bld) [Vol rate/Area] mL/min/{1.73_m2}NormalThe [facility] Hospital Physician GroupComment on above:Performed By: #### TSH3, CBC, A1C WTH eA, LIPID, CMP, T4F #### [facility] [address] [place] [id number] USACreatinine [Mass/volume] in Serum or PlasmaOrdered By: Peter Ahumada on 36-62-2983Kinbiavlel [Mass/Vol]0.50 mg/dLLow0.60-1.20[facility] HospitalComment on above:Performed By: #### TSH3, CBC, A1C WTH eA, LIPID, CMP, T4F #### [facility] [address] [place] [id number] USAEosinophils [#/volume] in Blood by Automated countOrdered By: Peter Ahumada on 21-26-2533Phwvrokochj (Bld) [#/Vol]0.1 10*3/uLNormal0.0-0.45 [facility] HospitalComment on above:Performed By: #### TSH3, CBC, A1C WTH eA, LIPID, CMP, T4F #### [facility] [address] [place] [id number] USAEosinophils/100 leukocytes in Blood by Automated count Ordered By: Peter Ahumada on 66-63-8569Kygifkzpzqf/100 WBC (Bld)1.7 %Normal. [facility] District HospitalComment on above:Performed By: #### TSH3, CBC, A1C WTH eA, LIPID, CMP, T4F #### [facility] [address] [place] [address] USAErythrocyte distribution width [Ratio] by Automated count Ordered By: Peter Ahumada on 93-08-9731Ctfseyipvot distribution width (RBC) [Ratio] 12.7 %Uurkop56.9-15.3FChillicothe HospitalComment on above:Performed By: #### TSH3, CBC, A1C WTH eA, LIPID, CMP, T4F #### [facility] [address] [place] [id number] USAErythrocytes [#/volume] in Blood by Automated countOrdered By: Peter Ahumada on 40-77-4114CYI (Bld) [#/Vol]4.14 10*6/uLNormal3.60-5.00 [facility] HospitalComment on above:Performed By: #### TSH3, CBC, A1C WTH eA, LIPID, CMP, T4F #### [facility] [address] [place] [address] USAGlucose [Mass/volume] in Serum or PlasmaOrdered By: Peter Ahumada on 02-86-1654Zokvwnk [Mass/Vol]98 mg/hAHhknuh08-476GozvbpebwHighland District HospitalComment on above:ADA recommended reference rangeRandom Glucose Reference Range is dependent on time and content of last meal. Glucose of more than 200 mg/dL in a nonstressed, ambulatory subject supports the diagnosisof Diabetes Mellitus.Result Comment: Random Glucose Reference Range is dependent on time and content of last meal. Glucose of more than 200 mg/dL in a nonstressed, ambulatory subject supports the diagnosis of Diabetes Mellitus. ADA recommended reference rangePerformed By: #### TSH3, CBC, A1C WTH eA, LIPID, CMP, T4F #### [facility] [address] [place] [address] USAHematocrit [Volume Fraction] of Blood by Automated count Ordered By: Peter Ahumada on 22-62-6167Kygzmhusyp (Bld) [Volume fraction]36.1 % Hqdjfu03.0-46.4FChillicothe HospitalComment on above:Performed By: #### TSH3, CBC, A1C WTH eA, LIPID, CMP, T4F #### [facility] [address] [place] [address] USAHemoglobin A1c/Hemoglobin.total in BloodOrdered By: Peter Ahumada on 87-37-7237SjW6j (Bld) [Mass fraction]5.7 %High4.3-5.6FChillicothe HospitalComment on above:Increased risk for diabetes: 5.7 - 6.4diabetes: >6.4glycemic control for adults with diabetes: <7.0Result Comment: Increased risk for diabetes: 5.7 - 6.4 diabetes: >6.4 glycemic control for adults with diabetes: <7.0Performed By: #### TSH3, CBC, A1C WTH eA, LIPID, CMP, T4F #### [facility] [address] [place] [address] USAHemoglobin [Mass/volume] in BloodOrdered By: Peter Ahumada on 39-85-2654Fpywopdvxc (Bld) [Mass/Vol]12.1 g/tUKguqme99.8-15.4FChillicothe HospitalComment on above:Performed By: #### TSH3, CBC, A1C WTH eA, LIPID, CMP, T4F #### [facility] [address] [place] [address] USALeukocytes [#/volume] corrected for nucleated erythrocytes in Blood by Automated counOrdered By: Peter Ahumada on 79-65-7663RQA corrected for nucl RBC Auto (Bld) [#/Vol]7.1 10*3/uL3.8-11.6FChillicothe Hospital Leukocytes [#/volume] in Blood by Automated countOrdered By: Peter Ahumada on 84-22-1042INT (Bld) [#/Vol]7.1 10*3/uLNormal3.8-11.6FChillicothe HospitalComment on above:Performed By: #### TSH3, CBC, A1C WTH eA, LIPID, CMP, T4F #### [facility] [address] [place] [address] USALipid Panelon 27-19-5823ZTE Cholesterol,Yqzfsvmtye99 mg/dL Normal0-100The [facility] Physician GroupComment on above:Result Comment: LDL ATP III CLASSIFICATION LDL less than 100 mg/dL Optimal LDL 100-129 mg/dL Near or above optimal LDL 130-159 mg/dL Borderline high LDL 160-189 mg/dL High LDL greater than 189 mg/dL Very highPerformed By: #### TSH3, CBC, A1C WTH eA, LIPID, CMP, T4F #### [facility] [address] [place] [address] USATriglyceride w/Fiveqc56 mg/dLNormal0-149The [facility] Physician GroupComment on above:Result Comment: TRIG ATP III CLASSIFICATION TRIG less than 150 mg/dL Normal TRIG 150-199 mg/dL Borderline high TRIG 200-500 mg/dL High TRIG greater than 500 mg/dL Very high Standard traceable to the Center for Disease Conrtrol and Prevention (CDC) test method.Performed By: #### TSH3, CBC, A1C WTH eA, LIPID, CMP, T4F #### [facility] [address] [place] [id number] USAVLDL ZLVCNVOYNOD65 mg/dLNoCritical access hospital Physician GroupComment on above:Performed By: #### TSH3, CBC, A1C WTH eA, LIPID, CMP, T4F #### [facility] [address] [place] [address] USALymphocytes [#/volume] in Blood by Automated countOrdered By: Peter Ahumada on 61-44-0507Yrcngkqvuvl (Bld) [#/Vol]1.7 10*3/uLNormal1.00-4.8 [facility] HospitalComment on above:Performed By: #### TSH3, CBC, A1C WTH eA, LIPID, CMP, T4F #### [facility] [address] [place] [id number] USALymphocytes/100 leukocytes in Blood by Automated count Ordered By: Peter Ahumada on 23-62-4017Ojysvwqbfoc/100 WBC (Bld)23.9 %Normal. [facility] HospitalComment on above:Performed By: #### TSH3, CBC, A1C WTH eA, LIPID, CMP, T4F #### [facility] [address] [place] [id number] [facility] [Entitic mass] by Automated countOrdered By: Peter Ahumada on 17-66-1151WKG (RBC) [Entitic mass]29.1 osLcefct02.7-34.3FChillicothe HospitalComment on above:Performed By: #### TSH3, CBC, A1C WTH eA, LIPID, CMP, T4F #### [facility] [address] [place] [id number] [facility] Auto (RBC) [Mass/Vol]Ordered By: Peter Ahumada on 90-42-5083TYFH (RBC) [Mass/Vol]33.5 g/dL32.0-35.0[facility] InstituteV [Entitic volume] by Automated countOrdered By: Peter Ahumada on 23-36-4400KZM (RBC) [Entitic vol]87.0 nHEdvtld49-799MbxlvkcpvHighland District HospitalComment on above:Performed By: #### TSH3, CBC, A1C WTH eA, LIPID, CMP, T4F #### [facility] [address] [place] [address] USAMonocytes [#/volume] in Blood by Automated countOrdered By: Peter Ahumada on 49-11-7281Hahzkjimo (Bld) [#/Vol]0.5 10*3/uLNormal0.0-0.8 [facility] HospitalComment on above:Performed By: #### TSH3, CBC, A1C WTH eA, LIPID, CMP, T4F #### [facility] [address] [place] [address] USAMonocytes/100 leukocytes in Blood by Automated count Ordered By: Peter Ahumada on 84-05-8950Apzttwsqf/100 WBC (Bld)7.2 %Normal.[facility] HospitalComment on above:Performed By: #### TSH3, CBC, A1C WTH eA, LIPID, CMP, T4F #### [facility] [address] [place] [address] USANeutrophils [#/volume] in Blood by Automated countOrdered By: Peter Ahumada on 78-56-8098Mlkyqrrjiwu (Bld) [#/Vol]4.7 10*3/uLNormal1.8-7.7 [facility] HospitalComment on above:Performed By: #### TSH3, CBC, A1C WTH eA, LIPID, CMP, T4F #### [facility] [address] [place] [address] USANeutrophils/100 leukocytes in Blood by Automated count Ordered By: Peter Ahumada on 50-88-7852Nolwhoeixhw/100 WBC (Bld)66.4 %Normal. [facility] HospitalComment on above:Performed By: #### TSH3, CBC, A1C WTH eA, LIPID, CMP, T4F #### [facility] [address] [place] [address] USANo Panel InformationOrdered By: Peter Ahumada on 12-05-2024 Estimated GFR (CKD-EPI)> 60.0 mL/MinHighland District HospitalPharmacy Creatinine Clearance (ChemN/AFChillicothe HospitalNucleated erythrocytes [Presence] in Blood by Automated countOrdered By: Peter Ahumada on 21-37-9307Ydvhphalu RBC Auto Ql (Bld)0.0 /100{WBC}0-0.5FChillicothe HospitalPlatelet mean volume [Entitic volume] in Blood by Automated count Ordered By: Peter Ahumada on 32-74-1452Mkfssbue mean volume (Bld) [Entitic vol]7.7 fLNormal6.3-10.7FChillicothe HospitalComment on above:Performed By: #### TSH3, CBC, A1C WTH eA, LIPID, CMP, T4F #### [facility] [address] [place] [address] USAPlatelets [#/volume] in Blood by Automated countOrdered By: Peter Ahumada on 82-82-3847Xnizkiamo (Bld) [#/Vol]296 10*3/dIKqylyy107-926 [facility] HospitalComment on above:Performed By: #### TSH3, CBC, A1C WTH eA, LIPID, CMP, T4F #### [facility] [address] [place], [place] [address] USAPotassium [Moles/volume] in Serum or PlasmaOrdered By: Peter Ahumada on 18-18-8221Edhobqrtg [Moles/Vol]4.4 mmol/LNormal3.5-5.1FChillicothe HospitalComment on above:Performed By: #### TSH3, CBC, A1C WTH eA, LIPID, CMP, T4F #### [facility] [address] [place] [address] USAProtein [Mass/volume] in Serum or PlasmaOrdered By: Peter Ahumada on 45-49-3242Zzyppop [Mass/Vol]6.0 g/dLLow6.4-8.9[facility] HospitalComment on above:Performed By: #### TSH3, CBC, A1C WTH eA, LIPID, CMP, T4F #### [facility] [address] [place] [address] USASerum globulin measurement by calculation (mass/volume) Ordered By: Peter Ahumada on 86-60-6050Qvrvcqqi (S) [Mass/Vol]2.3 g/dLNormal [facility] HospitalComment on above:Performed By: #### TSH3, CBC, A1C WTH eA, LIPID, CMP, T4F #### [facility] [address] [place] [address] USASerum or plasma albumin/globulin mass ratioOrdered By: Peter Ahumada on 55-20-2732Hwhtsvv/Globulin [Mass ratio]1.6 {ratio}NormalHighland District HospitalComment on above:Performed By: #### TSH3, CBC, A1C WTH eA, LIPID, CMP, T4F #### [facility] [address] [place] [address] USASerum or plasma anion gap determinationOrdered By: Peter Ahumada on 68-42-4127Xtkou gap [Moles/Vol]8.6 mmol/LNormal6.0-15.0[facility] HospitalComment on above:Performed By: #### TSH3, CBC, A1C WTH eA, LIPID, CMP, T4F #### [facility] [address] [place] [address] USASerum or plasma total cholesterol/high density lipoprotein (HDL) cholesterol mass ratOrdered By: Peter Ahumada on 12-05-2024 Cholesterol.total/Cholesterol in HDL [Mass ratio]3.0 {ratio}Normal<5.0[facility] HospitalComment on above:Performed By: #### TSH3, CBC, A1C WTH eA, LIPID, CMP, T4F #### [facility] [address] [id number] USASodium [Moles/volume] in Serum or PlasmaOrdered By: Peter Ahumada on [id number] [Moles/Vol]139 mmol/XKxemeb480-258UkqxhxsxmHighland District HospitalComment on above:Performed By: #### TSH3, CBC, A1C WTH eA, LIPID, CMP, T4F #### [facility] [address] [place] [address] USAThyrotropin [Units/volume] in Serum or PlasmaOrdered By: Peter Ahumada on [id number] Qn0.30 m[IU]/LLow0.45-5.33[facility] HospitalComment on above:Result Comment: PERFORMED BY: [place] [id number] PATHOLOGIST [employer]PERATOR PADILLA LYMAN M.D.Performed By: #### TSH3, CBC, A1C WTH eA, LIPID, CMP, T4F #### [facility] [address] [id number] USAThyroxine (T4) free [Mass/volume] in Serum or Plasma Ordered By: Peter Ahumada on 48-62-4150Sbws T4 [Mass/Vol]1.01 ng/dLNormal0.61-1.12 [facility] HospitalComment on above:Performed By: #### TSH3, CBC, A1C WTH eA, LIPID, CMP, T4F #### [facility] [address] [id number] USATriglyceride [Mass/volume] in Serum or PlasmaOrdered By: Peter Ahumada on [id number] [Mass/Vol]83 mg/dL0-149High[facility] HospitalComment on above:TRIG ATP III CLASSIFICATIONTRIG less than 150 mg/dL NormalTRIG 150-199 mg/dL Borderline highTRIG 200-500 mg/dL High TRIG greater than 500 mg/dL Very highStandard traceable to the Center for Disease Co nrtrol and Prevention (CDC) test method.Urea nitrogen [Mass/volume] in Serum or PlasmaOrdered By: Peter Ahumada on 87-17-1448Kmgw nitrogen [Mass/Vol]16 mg/dLNormal 7-25Highland District HospitalComment on above:Performed By: #### TSH3, CBC, A1C WTH eA, LIPID, CMP, T4F #### [facility] [address] [place] [address] USAPathology study report documentOrdered By: Adolfo Madrid on 92-97-9937Ofnymuabv [facility] Other Lon 09-29-2024L Specimen: [id number] Received: 09/29/24 Status: JORGE Bergman Num: [id number] Spec Type: Surgical Subm Dr: Albre Lara DO Tissues: A Skin Cyst (RT CHEST CYSTIC WALL) Procedures: Luma RAMIREZ/Fabiana L3 Age/ Patient Sex Location Account Attending Physician Darling Khanna 44/F ELIUD [id number] Alber Lara DO SPEC NUM: [id number] RECD: 09/29/24 STATUS: JORGE BERGMAN NUM: [id number] ALISTAIR: 09/29/24- [facility] DR: Alber Lara DO ENTERED: 09/29/24-[address] [facility] [address]: [facility] SPEC TYPE: Surgical DEPT: S [...] submitted in a single cassette. (1, ns, [id number]) NOEL Specimen: [id number] Received: 09/29/24 Status: JORGE Bergman Num: [id number] Spec Type: Surgical Subm Dr: Alber Lara DO Tissues: A Skin Cyst (RT CHEST CYSTIC WALL) Procedures: ASHLEY Gross/Micro L3 Patient: MaydaDarling [id number] (Continued) Specimen: [id number] Received: 09/29/24 (Continued) Signed (signature on file) ChinTiffany Madrid MD 09/30/24 1501 Specimen: [id number] Received: 09/29/24 Status: JORGE Bergman Num: [id number] Spec Type: Surgical Subm Dr: Alber Lara DO Tissues: A Skin Cyst (RT CHEST CYSTIC WALL) Procedures: Luma RAMIREZ/Fabiana L3 Patient: Darling Khanna [id number] (Continued) Specimen: [id number] Received: 09/29/24 (Continued) Microscopic Description Microscopic examinations are performed supporting the above interpretation CPT Codes 94500 Specimen: [id number] Received: 09/29/24 Status: JORGE Bergman Num: [id number] Spec Type: Surgical Subm Dr: Alber Lara DO Tissues: A Skin Cyst (RT CHEST CYSTIC WALL) Procedures: Luma RAMIREZ/Fabiana L3 Patient: Darling Khanna [id number] (Continued) Signed (signature on file) Adolfo Madrid MD 09/30/[address] [place] [address] Physician Group ankle LT wo conon 37-79-2517WE ankle LT [place] [facility] [place] [address] MRI Report Signed Patient: Darling Khanna MR#: [id number] : 1980 Acct:[id number] Age/Sex: 44 / F ADM Date: 06/04/24 Loc: MR Room: Type: [facility] Attending Dr: Robert Martinez DPM, MS Copies [...] Osmani Stovall M.D.06/04/2024 10:29 PM Dictation Location: [place] [address] Transcribed By: [facility] 06/04/242228 Dictated By: Osmani Stovall DO 06/04/242217 Signed By: 06/04/242228[facility]portMagnetic resonance imaging reportOrdered By: Osmani Stovall on 15-42-3856Lbizf reportPROVIDENCE [facility] [place] [address] [place] [address] MRI Report Signed Patient: Darling Khanna MR#: [id number] : 1980 Acct:[id number] Age/Sex: 44 / F ADM Date: 4 Loc: MR Room: Type: [facility] Attending Dr: Robert Martinez DPM, MS Copies [...] or thickening. Specifically the superior medial segment ispreserved. POSTERIOR TIBIAL TENDON: Normal orientation the posterior tibial tendon behind of the medial malleolus inserting into the navicular bone. Small amount of normal fluid is seen within the tendon sheathwhich terminates 1-2 cm proximal to the navicular insertion. No distal paratendinitis of the tendonidentified. Unremarkable heterogeneous signal intensity of the distal [...] Osmani Stovall M.D.06/04/2024 10:29 PM Dictation Location: [place] [address] Transcribed By: [facility] 06/04/242228 Dictated By: Osmani Stovall DO 06/04/242217 Signed By: 06/04/242228 [facility] HospitalX-ray reportOrdered By: Osmani Stovall on 56-79-7759Yabls reportPROVIDENCE HOSPITAL [place] [address] [place], [place] [address] XRay Report Signed Patient: Darling Khanna MR#: [id number] : 1980 Acct:[id number] Age/Sex: 44 / F ADM Date: 4 Loc: MR Room: Type: [facility] Attending Dr: Robert Martinez DPM, MS Copies to: Robert Martinez DPM, MS~ Ordering Provider: Robert Martinez DPM MS Date of Service: 06/04/24 XR/XR pre/post mri xray: PLANTAR FASCITIS 2 views LEFT ankle for pre-MRI assessment. Large inferior calcaneal spur. Intact bony structures. No acute bony findings. Unremarkable soft tissues. XR/XR pre/post mri xray IMPRESSION: Inferior calcaneal spurring Impression dictated by: Osmani Stovall M.D.06/04/2024 11:51 PM Dictation Location: RAD[facility]--01 Transcribed By: [facility] 06/04/242350 Dictated By: Osmani Stovall DO 06/04/242350 Signed By: 06/04/242350 [facility] HospitalXR pre/post mri xrayon 89-52-4267NG pre/post mri xrayPROVID[place] [address] XRay Report Signed Patient: Darling Khanna MR#: [id number] 1872 : 1980 Acct:[id number] Age/Sex: 44 / F ADM Date: 06/04/24 Loc: Room: Type: [facility] Attending Dr: Robert Martinez DPM, MS Copies [...] 11:51 PM Dictation Location: [facility]--01 Transcribed By: [facility] 06/04/242350 Dictated By: Omsani Stovall DO 06/04/242350 Signed By: 06/04/24 [facility] Physician GroupEMG 2 Extremitieson 73-47-9902Q7 radiculopathy, left, [facility] 11-12 Nerveson 76-12-2793M0 radiculopathy, left, mildNOMS HealthcareNOMS HealthcareAlanine aminotransferase [Enzymatic activity/volume] in Serum or PlasmaOrdered By: Peter Ahumada on 27-64-7949TZZ [Catalytic activity/Vol]10 U/L7-52[facility] HospitalAlbumin [Mass/volume] in Serum or Plasma by Bromocresol green (BCG) dye binding methoOrdered By: Peter Ahumada on 59-76-9552Vudzwta BCG dye [Mass/Vol]4.0 g/dL3.5-5.7FChillicothe HospitalAlkaline phosphatase [Enzymatic activity/volume] in Serum or PlasmaOrdered By: Peter Ahumada on 29-80-2255LUH [Catalytic activity/Vol]46 U/U02-692OmbqqmjqgHighland District HospitalAspartate aminotransferase [Enzymatic activity/volume] in Serum or Plasma Ordered By: Peter Ahumada on 49-38-5763UDL [Catalytic activity/Vol]20 U/L13-39 [facility] HospitalBasophils Auto (Bld) [#/Vol]Ordered By: Peter Ahumada on 26-12-8496Dmpcjbpwp (Bld) [#/Vol]0.0 10*3/uL0.0-0.2FChillicothe HospitalBasophils/100 WBC Auto (Bld)Ordered By: Peter Ahumada on 03-05-2024 Basophils/100 WBC (Bld)0.7 %.[facility] District HospitalBilirubin.total [Mass/volume] in Serum or PlasmaOrdered By: Peter Ahumada on 56-76-8128Bjolwqdbc [Mass/Vol]0.4 mg/dL0.3-1.0[facility] HospitalCalcium [Mass/volume] in Serum or PlasmaOrdered By: Peter Ahumada on 63-13-5463Qzjqzfc [Mass/Vol]8.9 mg/dL8.6-10.3FChillicothe HospitalCarbon dioxide, total [Moles/volume] in Serum or PlasmaOrdered By: Peter Ahumada on 53-72-9453GZ6 [Moles/Vol]28.7 mmol/L21.0-31.0[facility] HospitalChloride [Moles/volume] in Serum or PlasmaOrdered By: Peter Ahumada on 20-82-2408Vkxfrsxe [Moles/Vol]103 mmol/T18-186TmsrwpcgbHighland District HospitalCholesterol [Mass/volume] in Serum or PlasmaOrdered By: Peter Ahumada on 93-74-1417Ulexbdeugjo [Mass/Vol]166 mg/hX008-969MvnzxbpyuHighland District HospitalComment on above:Chol less than 200 mg/dl low riskChol 201-239 mg/dl borderline riskChol 240 mg/dl and greater high riskCholesterol in LDL Calc [Mass/Vol]Ordered By: Peter Ahumada on 66-63-4404Nbbfqmapoym in LDL [Mass/Vol]76 mg/dL0-100[facility] HospitalComment on above:LDL ATP III CLASSIFICATIONLDL less than 100 mg/dL OptimalLDL 100-129 mg/dL Near or above hultsqzMNK022-250 mg/dL Borderline highLDL 160-189 mg/dL HighLDL greater than 189 mg/dL Very highCholesterol in VLDL Calc [Mass/Vol]Ordered By: Peter Ahumada on 32-69-1132Eztttlxxtxj in VLDL [Mass/Vol]40 mg/dLHighland District HospitalCreatinine [Mass/volume] in Serum or PlasmaOrdered By: Peter Ahumada on 70-32-3417Kxmeloaowy [Mass/Vol]0.63 mg/dL0.60-1.20[facility] HospitalEosinophils Auto (Bld) [#/Vol] Ordered By: Peter Ahumada on 98-05-6172Cbsdumxrsmo (Bld) [#/Vol]0.1 10*3/uL0.0-0.45 [facility] HospitalEosinophils/100 WBC Auto (Bld)Ordered By: Peter Ahumada on 14-42-4437Mhbbykqheoj/100 WBC (Bld)2.2 %.[facility] District HospitalErythrocyte distribution width Auto (RBC) [Ratio]Ordered By: Peter Ahumada on 21-85-5751Urndnjfrvts distribution width (RBC) [Ratio]13.4 %11.9-15.3FChillicothe HospitalGlobulin Calc (S) [Mass/Vol]Ordered By: Peter Ahumada on 36-46-2637Tuhwsumb (S) [Mass/Vol]2.7 g/dLHighland District Hospital Glucose [Mass/volume] in Serum or PlasmaOrdered By: Peter Ahumada on 03-05-2024 Glucose [Mass/Vol]96 mg/dF93-278ArgkpasdrHighland District HospitalComment on above:ADA recommended reference rangeRandom Glucose Reference Range is dependent on time and content of last meal. Glucose of more than 200 mg/dL in a nonstressed, ambulatory subject supports the diagnosisof Diabetes Mellitus. Glucose mean value [Mass/volume] in Blood Estimated from glycated hemoglobin Ordered By: Peter Ahumada on 02-34-5152Ncxuawe glucose Estimated from glycated hemoglobin (Bld) [Mass/Vol]128 mg/dLHighland District HospitalHematocrit Auto (Bld) [Volume fraction]Ordered By: Peter Ahumada on 66-32-9263Fczgaxasxw (Bld) [Volume fraction]37.2 %34.0-46.4FChillicothe HospitalHemoglobin A1c percentageOrdered By: Peter Ahumada on 22-37-9711TvR2p (Bld) [Mass fraction]6.1 % High4.3-5.6FChillicothe HospitalComment on above:Increased risk for diabetes: 5.7 - 6.4diabetes: >6.4glycemic control for adults with diabetes: &l t;7.0Hemoglobin [Mass/volume] in BloodOrdered By: Peter Ahumada on 03-05-2024 Hemoglobin (Bld) [Mass/Vol]12.5 g/dL11.8-15.4FChillicothe Hospital Leukocytes [#/volume] corrected for nucleated erythrocytes in Blood by Automated counOrdered By: Peter Ahumada on 76-87-5159PXP corrected for nucl RBC Auto (Bld) [#/Vol]6.2 10*3/uL3.8-11.6FChillicothe HospitalLymphocytes Auto (Bld) [#/Vol]Ordered By: Peter Ahumada on 91-96-3416Lxrfjohnqze (Bld) [#/Vol]2.2 10*3/uL1.00-4.8[facility] HospitalLymphocytes/100 WBC Auto (Bld) Ordered By: Peter Ahumada on 10-54-7193Fowiekdiawg/100 WBC (Bld)36.3 %.[facility] District HospitalMCH Auto (RBC) [Entitic mass]Ordered By: Peter Ahumada on 80-85-0495MMI (RBC) [Entitic mass]28.2 pg24.7-34.3FChillicothe HospitalMCHC Auto (RBC) [Mass/Vol]Ordered By: Peter Ahumada on 58-34-4392GUII (RBC) [Mass/Vol]33.6 g/dL32.0-35.0[facility] HospitalMCV Auto (RBC) [Entitic vol]Ordered By: Peter Ahumada on 95-29-7109ASQ (RBC) [Entitic vol]83.8 fL 80-100[facility] HospitalMonocytes Auto (Bld) [#/Vol]Ordered By: Peter Ahumada on 22-20-9840Whbfpythz (Bld) [#/Vol]0.5 10*3/uL0.0-0.8[facility] HospitalMonocytes/100 WBC Auto (Bld)Ordered By: Peter Ahumada on 36-24-2006Xlpvosgqn/100 WBC (Bld)7.5 %.[facility] Neutrophils Auto (Bld) [#/Vol]Ordered By: Peter Ahumada on 01-44-1344Qaarpnnzesh (Bld) [#/Vol]3.3 10*3/uL1.8-7.7FChillicothe HospitalNeutrophils/100 WBC Auto (Bld)Ordered By: Peter Ahumada on 02-08-2487Unutaobrcsb/100 WBC (Bld)53.3 %.[facility] HospitalNo Panel InformationOrdered By: Peter Ahumada on 12-15-0374Pqbstabnx GFR (CKD-EPI)> 60.0 mL/MinHighland District Hospital Pharmacy Creatinine Clearance (ChemN/Premier HealthNucleated erythrocytes [Presence] in Blood by Automated countOrdered By: Peter Ahumada on 61-18-2827Skjygktcr RBC Auto Ql (Bld)0.1 /100{WBC}0-0.5FChillicothe HospitalPlatelet mean volume Auto (Bld) [Entitic vol]Ordered By: Peter Ahumada on 96-67-3296Mgkjzgpc mean volume (Bld) [Entitic vol]8.7 fL6.3-10.7 [facility] HospitalPlatelets Auto (Bld) [#/Vol]Ordered By: Peter Ahumada on 95-60-9851Uuyobkcmf (Bld) [#/Vol]333 10*3/dQ424-567IjikuphchHighland District HospitalPotassium [Moles/volume] in Serum or PlasmaOrdered By: Peter Ahumada on 63-25-7633Zrjnezlrq [Moles/Vol]3.8 mmol/L3.5-5.1FChillicothe HospitalProtein [Mass/volume] in Serum or PlasmaOrdered By: Peter Ahumada on 14-88-6721Fnvtlva [Mass/Vol]6.7 g/dL6.4-8.9[facility] HospitalRBC Auto (Bld) [#/Vol]Ordered By: Peter Ahumada on 18-14-5814JVF (Bld) [#/Vol]4.44 10*6/uL3.60-5.00[facility] Hospitalerum or plasma albumin/globulin mass ratioOrdered By: Peter Ahumada on 10-45-4971Ovtpcjk/Globulin [Mass ratio]1.5 {ratio}[facility] Hospitalerum or plasma anion gap determinationOrdered By: Peter Ahumada on 33-65-5540Vugei gap [Moles/Vol]11.1 mmol/L6.0-15.0[facility] Hospitalerum or plasma high density lipoprotein (HDL) cholesterol measurementOrdered By: Peter Ahumada on 03-05-2024 Cholesterol in HDL [Mass/Vol]50 mg/mS75-88PmzavabkzHighland District Hospital Comment on above:HDL CHOL ATP-III CLASSIFICATION Cardiovascular RiskHDL > or equal to 60 mg/dL LOWHDL < 40 mg/dL HIGHSerum or plasma total cholesterol/high density lipoprotein (HDL) cholesterol mass ratOrdered By: Peter Ahumada on 81-79-6750Fncrljdxbbo.total/Cholesterol in HDL [Mass ratio]3.3 {ratio}<5.0 [facility] Hospitalodium [Moles/volume] in Serum or PlasmaOrdered By: Peter Ahumada on 60-77-7203Fopjer [Moles/Vol]139 mmol/A666-395WwadxxqrfHighland District HospitalThyrotropin [Units/volume] in Serum or PlasmaOrdered By: Peter Ahumada on 79-11-5769XAJ Qn0.29 m[IU]/LLow0.45-5.33[facility] HospitalThyroxine (T4) free [Mass/volume] in Serum or PlasmaOrdered By: Peter Ahumada on 39-09-4044Ijbg T4 [Mass/Vol]0.81 ng/dL0.61-1.12[facility] HospitalTriglyceride [Mass/volume] in Serum or PlasmaOrdered By: Peter Ahumada on 12-10-4663Vxmteolifenp [Mass/Vol]202 mg/dLHigh0-149[facility] HospitalComment on above:TRIG ATP III CLASSIFICATIONTRIG less than 150 mg/dL NormalTRIG 150-199 mg/dL Borderline highTRIG 200-500 mg/dL High TRIG greater than 500 mg/dL Very highStandard traceable to the Center for Disease Co nrtrol and Prevention (CDC) test method.Urea nitrogen [Mass/volume] in Serum or PlasmaOrdered By: Peter Ahumada on 54-35-4538Zdem nitrogen [Mass/Vol]11 mg/dL7-25 [facility] HospitalWBC Auto (Bld) [#/Vol]Ordered By: Peter Ahumada on 09-77-0282VYW (Bld) [#/Vol]6.2 10*3/uL3.8-11.6FChillicothe Hospital HCG ( test) IA.rapid Ql (U)Ordered By: Rahul Rogers on 01-29-2024 HCG ( test) Ql (U)NegativeHighland District HospitalThyrotropin [Units/volume] in Serum or PlasmaOrdered By: Peter Ahumada on 10-64-5336NQB Qn0.15 m[IU]/L0.45-5.33[facility] HospitalThyroxine (T4) free [Mass/volume] in Serum or PlasmaOrdered By: Peter Ahumada on 71-84-9336Jhdc T4 [Mass/Vol]0.97 ng/dL0.61-1.12[facility] HospitalAlanine aminotransferase [Enzymatic activity/volume] in Serum or PlasmaOrdered By: Peter Ahumada on 50-42-6739RSU [Catalytic activity/Vol]7 U/L7-52[facility] HospitalAlbumin [Mass/volume] in Serum or Plasma by Bromocresol green (BCG) dye binding methoOrdered By: Peter Ahumada on 21-96-3800Rqmlsqn BCG dye [Mass/Vol]3.8 g/dL3.5-5.7FChillicothe HospitalAlkaline phosphatase [Enzymatic activity/volume] in Serum or PlasmaOrdered By: Peter Ahumada on 15-23-2388GTJ [Catalytic activity/Vol]54 U/A88-604EoqlewjvmHighland District HospitalAspartate aminotransferase [Enzymatic activity/volume] in Serum or Plasma Ordered By: Peter Ahumada on 08-13-4367LHI [Catalytic activity/Vol]17 U/L13-39 [facility] HospitalBasophils Auto (Bld) [#/Vol]Ordered By: Peter Ahumada on 29-38-8880Ktcalzpab (Bld) [#/Vol]0.1 10*3/uL0.0-0.2FChillicothe HospitalBasophils/100 WBC Auto (Bld)Ordered By: Peter Ahumada on 05-25-2023 Basophils/100 WBC (Bld)1.1 %.[facility] HospitalBilirubin.total [Mass/volume] in Serum or PlasmaOrdered By: Peter Ahumada on 84-73-5922Hqawcgszi [Mass/Vol]0.3 mg/dL0.3-1.0[facility] HospitalCalcium [Mass/volume] in Serum or PlasmaOrdered By: Peter Ahumada on 97-83-2413Gfghgoi [Mass/Vol]8.8 mg/dL8.6-10.3FChillicothe HospitalCarbon dioxide, total [Moles/volume] in Serum or PlasmaOrdered By: Peter Ahumada on 01-05-3727KU7 [Moles/Vol]29.9 mmol/L21.0-31.0[facility] HospitalChloride [Moles/volume] in Serum or PlasmaOrdered By: Peter Ahumada on 36-37-4086Gsuokifp [Moles/Vol]107 mmol/Z94-033JxexnpcflHighland District HospitalCholesterol [Mass/volume] in Serum or PlasmaOrdered By: Peter Ahumada on 65-81-4213Awwgpdaykhf [Mass/Vol]181 mg/mT660-599QptotlvlrHighland District HospitalComment on above:Chol less than 200 mg/dl low riskChol 201-239 mg/dl borderline riskChol 240 mg/dl and greater high riskCholesterol in LDL Calc [Mass/Vol]Ordered By: Peter Ahumada on 26-22-4341Mjkjoxrvzze in LDL [Mass/Vol]115 mg/dL0-100[facility] HospitalComment on above:LDL ATP III CLASSIFICATIONLDL less than 100 mg/dL OptimalLDL 100-129 mg/dL Near or above zwirmctTHO352-471 mg/dL Borderline highLDL 160-189 mg/dL HighLDL greater than 189 mg/dL Very highCholesterol in VLDL Calc [Mass/Vol]Ordered By: Peter Ahumada on 34-06-1317Hmnnsyakcpj in VLDL [Mass/Vol]22 mg/dLHighland District HospitalCreatinine [Mass/volume] in Serum or PlasmaOrdered By: Peter Ahumada on 79-02-6909Gtxkyagnwm [Mass/Vol]0.59 mg/dL0.60-1.20[facility] HospitalEosinophils Auto (Bld) [#/Vol] Ordered By: Peter Ahumada on 03-04-9710Rzmsgllpabo (Bld) [#/Vol]0.1 10*3/uL0.0-0.45 [facility] HospitalEosinophils/100 WBC Auto (Bld)Ordered By: Peter Ahumada on 94-62-8260Yuuwyuhbhdp/100 WBC (Bld)1.9 %.[facility] HospitalErythrocyte distribution width Auto (RBC) [Ratio]Ordered By: Peter Ahumada on 59-70-6393Elikwmibfea distribution width (RBC) [Ratio]13.7 %11.9-15.3FChillicothe HospitalGlobulin Calc (S) [Mass/Vol]Ordered By: Peter Ahumada on 18-95-4000Mnwhtqsw (S) [Mass/Vol]2.7 g/dLHighland District Hospital Glucose [Mass/volume] in Serum or PlasmaOrdered By: Peter Ahumada on 05-25-2023 Glucose [Mass/Vol]87 mg/hU60-135NjrukdxsaHighland District HospitalComment on above:ADA recommended reference rangeRandom Glucose Reference Range is dependent on time and content of last meal. Glucose of more than 200 mg/dL in a nonstressed, ambulatory subject supports the diagnosisof Diabetes Mellitus. Glucose mean value [Mass/volume] in Blood Estimated from glycated hemoglobin Ordered By: Peter Ahumada on 74-28-8107Gkrfjfj glucose Estimated from glycated hemoglobin (Bld) [Mass/Vol]126 mg/dLHighland District HospitalHematocrit Auto (Bld) [Volume fraction]Ordered By: Peter Ahumada on 25-08-2645Vrwcfdkbgd (Bld) [Volume fraction]36.2 %34.0-46.4FChillicothe HospitalHemoglobin A1c percentageOrdered By: Peter Ahumada on 28-82-2347XtO5j (Bld) [Mass fraction]6.0 % 4.3-5.6FChillicothe HospitalComment on above:Increased risk for diabetes: 5.7 - 6.4diabetes: >6.4glycemic control for adults with diabetes: &l t;7.0Hemoglobin [Mass/volume] in BloodOrdered By: Peter Ahumada on 05-25-2023 Hemoglobin (Bld) [Mass/Vol]11.8 g/dL11.8-15.4FChillicothe Hospital Leukocytes [#/volume] corrected for nucleated erythrocytes in Blood by Automated counOrdered By: Peter Ahumada on 11-76-0515FNB corrected for nucl RBC Auto (Bld) [#/Vol]6.1 10*3/uL3.8-11.6FChillicothe HospitalLymphocytes Auto (Bld) [#/Vol]Ordered By: Peter Ahumada on 25-01-9479Ucymzdgnbre (Bld) [#/Vol]2.0 10*3/uL1.00-4.8[facility] HospitalLymphocytes/100 WBC Auto (Bld) Ordered By: Peter Ahumada on 63-06-6890Ocpmucnhdqe/100 WBC (Bld)32.1 %.[facility] InstituteH Auto (RBC) [Entitic mass]Ordered By: Peter Ahumada on 82-03-2150WTZ (RBC) [Entitic mass]27.3 pg24.7-34.3FChillicothe HospitalMCHC Auto (RBC) [Mass/Vol]Ordered By: Peter Ahumada on 50-61-0852NOXF (RBC) [Mass/Vol]32.7 g/dL32.0-35.0[facility] HospitalMCV Auto (RBC) [Entitic vol]Ordered By: Peter Ahumada on 50-32-6947FPB (RBC) [Entitic vol]83.5 fL 80-100[facility] HospitalMonocytes Auto (Bld) [#/Vol]Ordered By: Peter Ahumada on 06-16-5511Rfqvhthlc (Bld) [#/Vol]0.3 10*3/uL0.0-0.8[facility] HospitalMonocytes/100 WBC Auto (Bld)Ordered By: Peter Ahumada on 78-74-4858Hduaasnmn/100 WBC (Bld)5.2 %.[facility] Neutrophils Auto (Bld) [#/Vol]Ordered By: Peter Ahumada on 69-03-8472Hfklitmteuc (Bld) [#/Vol]3.6 10*3/uL1.8-7.7FChillicothe HospitalNeutrophils/100 WBC Auto (Bld)Ordered By: Peter Ahumada on 69-79-4775Soxlqnmcsbv/100 WBC (Bld)59.7 %.[facility] HospitalNo Panel InformationOrdered By: Peter Ahumada on 21-83-8311Ibosjbquj GFR (CKD-EPI)> 60.0 mL/MinHighland District Hospital Pharmacy Creatinine Clearance (ChemN/Premier HealthNucleated erythrocytes [Presence] in Blood by Automated countOrdered By: Peter Ahumada on 10-60-6611Tttftqwig RBC Auto Ql (Bld)0.1 /100{WBC}0-0.5FChillicothe HospitalPlatelet mean volume Auto (Bld) [Entitic vol]Ordered By: Peter Ahumada on 36-20-3417Elelmsyg mean volume (Bld) [Entitic vol]8.5 fL6.3-10.7 [facility] HospitalPlatelets Auto (Bld) [#/Vol]Ordered By: Peter Ahumada on 73-36-8145Ehhjvrktw (Bld) [#/Vol]364 10*3/oT265-623TlbzwhogxHighland District HospitalPotassium [Moles/volume] in Serum or PlasmaOrdered By: Peter Ahumada on 52-05-0039Horkyvfgf [Moles/Vol]4.0 mmol/L3.5-5.1FChillicothe HospitalProtein [Mass/volume] in Serum or PlasmaOrdered By: Peter Ahumada on 23-32-2257Geaaivw [Mass/Vol]6.5 g/dL6.4-8.9[facility] HospitalRBC Auto (Bld) [#/Vol]Ordered By: Peter Ahumada on 70-22-1320LZJ (Bld) [#/Vol]4.34 10*6/uL3.60-5.00[facility] Hospitalerum or plasma albumin/globulin mass ratioOrdered By: Peter Ahumada on 70-84-1545Glehess/Globulin [Mass ratio]1.4 {ratio}[facility] Hospitalerum or plasma anion gap determinationOrdered By: Peter Ahumada on 03-46-4279Hfxdl gap [Moles/Vol]10.1 mmol/L6.0-15.0[facility] Hospitalerum or plasma high density lipoprotein (HDL) cholesterol measurementOrdered By: Peter Ahumada on 05-25-2023 Cholesterol in HDL [Mass/Vol]44 mg/sD86-15MjgdtidyuHighland District Hospital Comment on above:HDL CHOL ATP-III CLASSIFICATION Cardiovascular RiskHDL > or equal to 60 mg/dL LOWHDL < 40 mg/dL HIGHSerum or plasma total cholesterol/high density lipoprotein (HDL) cholesterol mass ratOrdered By: Peter Ahumada on 95-07-6793Akcgzsalbpl.total/Cholesterol in HDL [Mass ratio]4.1 {ratio}<5.0 [facility] Hospitalodium [Moles/volume] in Serum or PlasmaOrdered By: Peter Ahumada on 57-67-0862Gvivmq [Moles/Vol]143 mmol/V434-144HezyhqgivHighland District HospitalThyrotropin [Units/volume] in Serum or PlasmaOrdered By: Peter Ahumada on 73-08-8644JTP Qn0.73 m[IU]/L0.45-5.33[facility] HospitalThyroxine (T4) free [Mass/volume] in Serum or PlasmaOrdered By: Peter Ahumada on 24-82-6939Mvps T4 [Mass/Vol]0.79 ng/dL0.61-1.12[facility] HospitalTriglyceride [Mass/volume] in Serum or PlasmaOrdered By: Peter Ahumada on 59-77-5572Vdpoevrgsosu [Mass/Vol]112 mg/dL0-149[facility] Comment on above:TRIG ATP III CLASSIFICATIONTRIG less than 150 mg/dL NormalTRIG 150-199 mg/dL Borderline highTRIG 200-500 mg/dL High TRIG greater than 500 mg/dL Very highStandard traceable to the Center for Disease Conrtrol and Prevention (CDC) test method.Urea nitrogen [Mass/volume] in Serum or PlasmaOrdered By: Peter Ahumada on 06-68-5774Naue nitrogen [Mass/Vol]10 mg/dL7-25[facility] HospitalWBC Auto (Bld) [#/Vol]Ordered By: Peter Ahumada on 41-63-0179GTI (Bld) [#/Vol]6.1 10*3/uL3.8-11.6FChillicothe HospitalThyrotropin [Units/volume] in Serum or PlasmaOrdered By: Peter Ahumada on 60-01-9482OQH Qn2.20 m[IU]/L0.45-5.33[facility] HospitalThyroxine (T4) free [Mass/volume] in Serum or PlasmaOrdered By: Peter Ahumada on 86-13-5177Znvf T4 [Mass/Vol]0.62 ng/dL0.61-1.12[facility] HospitalAlanine aminotransferase [Enzymatic activity/volume] in Serum or PlasmaOrdered By: Alba Wrenimore on 50-50-4777QTC [Catalytic activity/Vol]7 U/L7-52[facility] HospitalAlbumin [Mass/volume] in Serum or Plasma by Bromocresol green (BCG) dye binding methoOrdered By: Alba Bullimore on 19-18-5651Gzuxtrx BCG dye [Mass/Vol]3.7 g/dL3.5-5.7FChillicothe HospitalAlkaline phosphatase [Enzymatic activity/volume] in Serum or PlasmaOrdered By: Alba Bullimore on 97-89-8391QHW [Catalytic activity/Vol]47 U/L80-586ZuaqixidiHighland District HospitalAspartate aminotransferase [Enzymatic activity/volume] in Serum or PlasmaOrdered By: Alba Bullimore on 19-28-1348HVZ [Catalytic activity/Vol]12 U/M73-55XftrfygkdHighland District HospitalAutomated erythrocytes count in urine sediment (number/area)Ordered By: [facility] on 11-01-2022 RBC Auto (Urine sed) [#/Area]1-2 [HPF]0-4FChillicothe Hospital Comment on above:--- 11/01/22 1049 ---Ur RBC previously reported as: 1-2 /HPFMicroscopic results may be affected dueto low specimen volume.Automated leukocytes count in urine sediment (number/area)Ordered By: [facility] on 74-18-9646MMA Auto (Urine sed) [#/Area]1-2 [HPF]0-4FChillicothe HospitalBasophils Auto (Bld) [#/Vol]Ordered By: [facility]ba [facility] on 11-01-2022 Basophils (Bld) [#/Vol]0.1 10*3/uL0.0-0.2FChillicothe Hospital Basophils/100 WBC Auto (Bld)Ordered By: [facility] on 11-01-2022 Basophils/100 WBC (Bld)0.9 %.[facility] HospitalBilirubin Test strip Ql (U)Ordered By: [facility] on 68-42-9440Taxcoulqy Ql (U)Negative NegativeHighland District HospitalBilirubin.direct [Mass/volume] in Serum or PlasmaOrdered By: Alba Bullimore on 36-94-2495Umejwvmzt.direct [Mass/Vol] 0.10 mg/dL0.03-0.18FChillicothe HospitalBilirubin.total [Mass/volume] in Serum or PlasmaOrdered By: Alba Bullimore on 11-01-2022 Bilirubin [Mass/Vol]0.3 mg/dL0.3-1.0[facility] HospitalCalcium [Mass/volume] in Serum or PlasmaOrdered By: Alba Bullimore on 11-01-2022 Calcium [Mass/Vol]8.8 mg/dL8.6-10.3FChillicothe HospitalCarbon dioxide, total [Moles/volume] in Serum or PlasmaOrdered By: Alba Bullimore on 16-10-8556JP1 [Moles/Vol]27.6 mmol/L21.0-31.0[facility] Chloride [Moles/volume] in Serum or PlasmaOrdered By: [facility] Bull[facility] on 22-01-3680Bbmfgmwx [Moles/Vol]105 mmol/A09-742DpmkqiaevHighland District Hospital Choriogonadotropin.beta subunit [Units/volume] in Serum or PlasmaOrdered By: [facility] on 39-25-9187IBV.beta subunit Qnm[IU]/mLHighland District HospitalComment on above:Approximate Approximate hCG Gestational Age Range (mIU/ml) (weeks)0.2-1 5-50 1-2 50-500 2-3 100-5,000 3-4 500-10,000 4-5 1,000- 50,000 5-6 10,000-100,000 6-8 15,000-200,000 8-12 10,000-100,000Color Auto (U) Ordered By: Alba Marshall on 12-78-2949Moeca (U)YellowYellowHighland District HospitalCreatinine [Mass/volume] in Serum or PlasmaOrdered By: Alba Wrenimlila on 94-19-3066Saowhixswz [Mass/Vol]0.60 mg/dL0.60-1.20[facility] HospitalEosinophils Auto (Bld) [#/Vol]Ordered By: Albayehuda Marshall on 30-26-7449Vnnoczksigv (Bld) [#/Vol]0.2 10*3/uL0.0-0.45[facility] HospitalEosinophils/100 WBC Auto (Bld)Ordered By: [facility] on 33-14-2742Jlrounwptbc/100 WBC (Bld)3.0 %.[facility] HospitalErythrocyte distribution width Auto (RBC) [Ratio]Ordered By: [facility] on 60-99-2238Hdvadlqmxtb distribution width (RBC) [Ratio]13.2 % 11.9-15.3FChillicothe HospitalGlobulin Calc (S) [Mass/Vol]Ordered By: [facility] on 24-76-5247Rhgtmreu (S) [Mass/Vol]3.1 g/dLHighland District HospitalGlucose [Mass/volume] in Serum or PlasmaOrdered By: [facility] on 58-57-8375Rtrcavb [Mass/Vol]95 mg/cQ39-573NpiafsdwgHighland District HospitalComment on above:ADA recommended reference rangeRandom Glucose Reference Range is dependent on time and content of last meal. Glucose of more than 200 mg/dL in a nonstressed, ambulatory subject supports the diagnosisof Diabetes Mellitus.Hematocrit Auto (Bld) [Volume fraction]Ordered By: [facility] on 84-21-4521Dexltlcyrm (Bld) [Volume fraction]36.8 %34.0-46.4 [facility] HospitalHemoglobin [Mass/volume] in BloodOrdered By: [facility] on 86-76-9991Ntvzuscpye (Bld) [Mass/Vol]12.5 g/dL11.8-15.4 [facility] HospitalKetones Auto test strip (U) [Mass/Vol]Ordered By: [facility] on 27-39-1012Dkuasld (U) [Mass/Vol]NegativeNegative [facility] HospitalLaboratory - UrinalysisOrdered By: [facility] on 37-71-8394Fcxwsak casts LM Ql (Urine sed)0-8 [LPF]0-8[facility] HospitalLeukocytes [#/volume] corrected for nucleated erythrocytes in Blood by Automated counOrdered By: Alba Bullimore on 38-51-7367CJO corrected for nucl RBC Auto (Bld) [#/Vol]7.8 10*3/uL3.8-11.6 [facility] HospitalLymphocytes Auto (Bld) [#/Vol]Ordered By: Alba Bullimore on 46-82-7719Zmgtvzxfsjk (Bld) [#/Vol]1.5 10*3/uL1.00-4.8 [facility] HospitalLymphocytes/100 WBC Auto (Bld)Ordered By: Alba Bullimore on 72-99-0653Pomgqrgdlep/100 WBC (Bld)19.6 %.[facility] InstituteH Auto (RBC) [Entitic mass]Ordered By: Alba Bullimore on 82-29-9099HSU (RBC) [Entitic mass]28.3 pg24.7-34.3FChillicothe HospitalMCHC Auto (RBC) [Mass/Vol]Ordered By: Alba Bullimore on 50-86-1492EVWE (RBC) [Mass/Vol]33.9 g/dL32.0-35.0[facility] HospitalMCV Auto (RBC) [Entitic vol]Ordered By: Alba Bullimore on 47-80-3185IMM (RBC) [Entitic vol]83.3 cW18-009JjzakgnsfHighland District HospitalMonocyte distribution width [Entitic volume] in Blood by AutomatedOrdered By: Alba Bullimore on 11-01-2022 Monocyte distribution width Auto (Bld) [Entitic vol]17.79 %0.00-20.00[facility] HospitalMonocytes Auto (Bld) [#/Vol]Ordered By: Alba Bullimore on 79-83-9524Aqxvpnaue (Bld) [#/Vol]0.5 10*3/uL0.0-0.8[facility] HospitalMonocytes/100 WBC Auto (Bld)Ordered By: Alba Bullimore on 11-01-2022 Monocytes/100 WBC (Bld)6.9 %.[facility] HospitalNeutrophils Auto (Bld) [#/Vol]Ordered By: Alba Bullimore on 61-09-9468Fombbehzqjg (Bld) [#/Vol] 5.4 10*3/uL1.8-7.7FChillicothe HospitalNeutrophils/100 WBC Auto (Bld)Ordered By: Alba Bullimore on 53-39-6342Ybaawbxddpa/100 WBC (Bld)69.6 %. [facility] HospitalNitrite Test strip Ql (U)Ordered By: Alba Bullimore on 94-57-3746Eykavlq Ql (U)NegativeNegativeHighland District HospitalNo Panel InformationOrdered By: Albayehuda Wrenimlila on 16-89-3600Ntsdjczse GFR (CKD-EPI)> 60.0 mL/MinHighland District HospitalPharmacy Creatinine Clearance (Ghwf781.12[facility] HospitalNucleated erythrocytes [Presence] in Blood by Automated countOrdered By: Alba Bullimore on 11-01-2022 Nucleated RBC Auto Ql (Bld)0.1 /100{WBC}0-0.5FChillicothe Hospital Platelet mean volume Auto (Bld) [Entitic vol]Ordered By: Alba Bullimore on 09-01-6269Dtfegbrp mean volume (Bld) [Entitic vol]7.5 fL6.3-10.7FChillicothe HospitalPlatelets Auto (Bld) [#/Vol]Ordered By: Alba Bullimore on 05-99-0195Nuslcwovj (Bld) [#/Vol]278 10*3/vX915-085SlwziszhlHighland District HospitalPotassium [Moles/volume] in Serum or PlasmaOrdered By: Alab Bullimore on 67-73-8163Yjsouunhv [Moles/Vol]4.3 mmol/L3.5-5.1FChillicothe HospitalProtein Auto test strip (U) [Mass/Vol]Ordered By: Alba Bullimore on 97-29-1280Shpzead (U) [Mass/Vol]NegativeNegativeHighland District HospitalProtein [Mass/volume] in Serum or PlasmaOrdered By: Alba Bullimore on 21-81-2276Evkezjo [Mass/Vol]6.8 g/dL6.4-8.9[facility] HospitalRBC Auto (Bld) [#/Vol]Ordered By: Alba Marshall on 00-17-5013VRX (Bld) [#/Vol] 4.41 10*6/uL3.60-5.00[facility] Hospitalerum or plasma albumin/globulin mass ratioOrdered By: [facility] on 11-01-2022 Albumin/Globulin [Mass ratio]1.2 {ratio}[facility] Hospitalerum or plasma anion gap determinationOrdered By: [facility]ehuda [facility] on 74-88-3020Hqewp gap [Moles/Vol]10.7 mmol/L6.0-15.0[facility] Hospitalerum or plasma non-glucuronidated bilirubin measurement (mass/volume)Ordered By: [facility] on 57-06-5539Bkczmvdal.indirect [Mass/Vol]0.2 mg/dLOhio Valley Surgical Hospitalodium [Moles/volume] in Serum or PlasmaOrdered By: Alba Marshall on 89-81-5034Prqjzs [Moles/Vol]139 mmol/Z840-544RqwyipvqcOhio Valley Surgical Hospitalpecific gravity Auto test strip (U) [Rel density]Ordered By: [facility]uda [facility] on 27-43-8764Nszuhgir gravity (U) [Rel density]1.0211.001-1.030 [facility] Hospitalquamous epithelial cells detection in urine sediment by light microscopyOrdered By: Alba [facility] on 83-22-9357Xqnlmfiyxk cells.squamous LM Ql (Urine sed)3-4 [HPF]0-2FChillicothe Hospital Urea nitrogen [Mass/volume] in Serum or PlasmaOrdered By: [facility]ba [facility] on 91-53-1866Uxxh nitrogen [Mass/Vol]7 mg/dL7-25[facility] Urine bacteria detection by automated methodOrdered By: [facility]ba [facility] on 83-38-2650Kklzblfz Auto Ql (U)1+None SeenHighland District Hospital Comment on above:--- 11/01/22 1050 ---Ur Bact previously reported as: 1+ H Microscopic results may be affected due to low specimen volume.Urine clarity by refractometry automatedOrdered By: Alba Marshall on 97-54-3606Fnvlsgv Refractometry automated (U)ClearCleUniversity Hospitals St. John Medical CenterUrine glucose measurement by automated test strip (mass/volume)Ordered By: Alba Marshall on 84-31-4156Bhxfwzu Auto test strip (U) [Mass/Vol]Normal mg/dLNoHolzer HospitalUrine hemoglobin detection by automated test stripOrdered By: Alba Marshall on 54-77-6733Ifhfdayqhq Auto test strip Ql (U) 1+NegativeHighland District HospitalUrine leukocyte esterase detection by automated test stripOrdered By: Alba Marshall on 38-79-8273Qbelykxnp esterase Auto test strip Ql (U)NegativeNegativeHighland District Hospital Urobilinogen Auto test strip (U) [Mass/Vol]Ordered By: Alba Marshall on 04-18-3250Hhspicodxnmn (U) [Mass/Vol]Normal mg/dLAvita Health System Bucyrus HospitalWBC Auto (Bld) [#/Vol]Ordered By: Alba Marshall on 11-01-2022 WBC (Bld) [#/Vol]7.8 10*3/uL3.8-11.6FChillicothe HospitalYeast detection in urine sediment by light microscopyOrdered By: Alba Marshall on 29-11-4359Jvtge LM Ql (Urine sed)None seen [HPF]None SeenHighland District HospitalComment on above:--- 11/01/22 1050 ---Ur Yeast previously reported as: None Seen /HPFMicroscopic results may be affected due to low specimen volume.--- 11/01/22 1058 ---Ur Yeast previously reported as: /HPF--- 11/01/22 1050 ---Ur Yeast previously reported as: None Seen /HPFMicroscopic results may be affected due tolow specimen volume.pH Auto test strip (U)Ordered By: Alba Marshall on 19-98-5926bZ (U)6.5 [pH]5.0-9.0[facility] Alanine aminotransferase [Enzymatic activity/volume] in Serum or PlasmaOrdered By: Peter Ahumada on 24-45-7153SWK [Catalytic activity/Vol]8 U/L7-52[facility] HospitalAlbumin [Mass/volume] in Serum or Plasma by Bromocresol green (BCG) dye binding methoOrdered By: Peter Ahumada on 66-97-0153Utwbvbg BCG dye [Mass/Vol]3.8 g/dL3.5-5.7FChillicothe HospitalAlkaline phosphatase [Enzymatic activity/volume] in Serum or PlasmaOrdered By: Peter Ahumada on 72-55-3501WGG [Catalytic activity/Vol]49 U/V36-745MnftsneoeHighland District HospitalAspartate aminotransferase [Enzymatic activity/volume] in Serum or Plasma Ordered By: Peter Ahumada on 39-26-7620UIO [Catalytic activity/Vol]16 U/L13-39 [facility] HospitalBasophils Auto (Bld) [#/Vol]Ordered By: Peter Ahumada on 34-14-5098Cwkiqjrrb (Bld) [#/Vol]0.1 10*3/uL0.0-0.2FChillicothe HospitalBasophils/100 WBC Auto (Bld)Ordered By: Peter Ahumada on 10-31-2022 Basophils/100 WBC (Bld)0.9 %.[facility] HospitalBilirubin.total [Mass/volume] in Serum or PlasmaOrdered By: Peter Ahumada on 94-63-1240Ifcrenhkz [Mass/Vol]0.3 mg/dL0.3-1.0[facility] HospitalCalcium [Mass/volume] in Serum or PlasmaOrdered By: Peter Ahumada on 70-70-3884Gjhpktu [Mass/Vol]9.0 mg/dL8.6-10.3FChillicothe HospitalCarbon dioxide, total [Moles/volume] in Serum or PlasmaOrdered By: Peter Ahumada on 31-54-3674PW5 [Moles/Vol]25.8 mmol/L21.0-31.0[facility] HospitalChloride [Moles/volume] in Serum or PlasmaOrdered By: Peter Ahumada on 98-91-0963Wpuiuiew [Moles/Vol]106 mmol/A40-127CugkhibusHighland District HospitalCholesterol [Mass/volume] in Serum or PlasmaOrdered By: Peter Ahumada on 17-06-4854Akfcizjqvtx [Mass/Vol]152 mg/fL759-879ZjaocljbhHighland District HospitalComment on above:Chol less than 200 mg/dl low riskChol 201-239 mg/dl borderline riskChol 240 mg/dl and greater high riskCholesterol in LDL Calc [Mass/Vol]Ordered By: Peter Ahumada on 26-79-6176Rmzewfqtyyf in LDL [Mass/Vol]74 mg/dL0-100[facility] HospitalComment on above:LDL ATP III CLASSIFICATIONLDL less than 100 mg/dL OptimalLDL 100-129 mg/dL Near or above auucccxUVC745-898 mg/dL Borderline highLDL 160-189 mg/dL HighLDL greater than 189 mg/dL Very highCholesterol in VLDL Calc [Mass/Vol]Ordered By: Peter Ahumada on 28-01-3594Ieoyrpsdzgg in VLDL [Mass/Vol]25 mg/dLHighland District HospitalCreatinine [Mass/volume] in Serum or PlasmaOrdered By: Peter Ahumada on 97-50-1829Tikoswoufd [Mass/Vol]0.55 mg/dL0.60-1.20[facility] HospitalEosinophils Auto (Bld) [#/Vol] Ordered By: Peter Ahumada on 57-15-0695Zqlwyqptayf (Bld) [#/Vol]0.2 10*3/uL0.0-0.45 [facility] HospitalEosinophils/100 WBC Auto (Bld)Ordered By: Peter Ahumada on 81-23-9056Qnytwcewltq/100 WBC (Bld)2.9 %.[facility] HospitalErythrocyte distribution width Auto (RBC) [Ratio]Ordered By: Peter Ahumada on 50-79-1932Jfqucyhwjvj distribution width (RBC) [Ratio]13.3 %11.9-15.3FChillicothe HospitalGlobulin Calc (S) [Mass/Vol]Ordered By: Peter Ahumada on 28-63-7566Laewrcwu (S) [Mass/Vol]2.8 g/dLHighland District Hospital Glucose [Mass/volume] in Serum or PlasmaOrdered By: Peter Ahumada on 10-31-2022 Glucose [Mass/Vol]98 mg/gC33-528XhgxgctzkHighland District HospitalComment on above:ADA recommended reference rangeRandom Glucose Reference Range is dependent on time and content of last meal. Glucose of more than 200 mg/dL in a nonstressed, ambulatory subject supports the diagnosisof Diabetes Mellitus. Hematocrit Auto (Bld) [Volume fraction]Ordered By: Peter Ahumada on 10-31-2022 Hematocrit (Bld) [Volume fraction]37.3 %34.0-46.4FChillicothe HospitalHemoglobin [Mass/volume] in BloodOrdered By: Peter Ahumada on 10-31-2022 Hemoglobin (Bld) [Mass/Vol]12.4 g/dL11.8-15.4FChillicothe Hospital Leukocytes [#/volume] corrected for nucleated erythrocytes in Blood by Automated counOrdered By: Peter Ahumada on 67-05-0115SSP corrected for nucl RBC Auto (Bld) [#/Vol]8.2 10*3/uL3.8-11.6FChillicothe HospitalLymphocytes Auto (Bld) [#/Vol]Ordered By: Peter Ahumada on 63-17-1845Pzledsldkwp (Bld) [#/Vol]1.8 10*3/uL1.00-4.8[facility] HospitalLymphocytes/100 WBC Auto (Bld) Ordered By: Peter hAumada on 93-54-1511Ovgjktmcuwx/100 WBC (Bld)21.7 %.[facility] HospitalMCH Auto (RBC) [Entitic mass]Ordered By: Peter Ahumada on 57-48-4745RTR (RBC) [Entitic mass]28.0 pg24.7-34.3FChillicothe HospitalMCHC Auto (RBC) [Mass/Vol]Ordered By: Peter Ahumada on 76-29-2187DGZQ (RBC) [Mass/Vol]33.3 g/dL32.0-35.0[facility] HospitalMCV Auto (RBC) [Entitic vol]Ordered By: Peter Ahumada on 50-59-1721PJW (RBC) [Entitic vol]84.1 fL 80-100[facility] HospitalMonocytes Auto (Bld) [#/Vol]Ordered By: Peter Ahumada on 78-85-0170Ebangedan (Bld) [#/Vol]0.5 10*3/uL0.0-0.8[facility] HospitalMonocytes/100 WBC Auto (Bld)Ordered By: Peter Ahumada on 38-54-8676Cfknylcqo/100 WBC (Bld)6.2 %.[facility] Neutrophils Auto (Bld) [#/Vol]Ordered By: Peter Ahumada on 58-25-7655Viuqaqehyqs (Bld) [#/Vol]5.6 10*3/uL1.8-7.7FChillicothe HospitalNeutrophils/100 WBC Auto (Bld)Ordered By: Peter Ahumada on 55-70-5755Wcgpgutholi/100 WBC (Bld)68.3 %.[facility] HospitalNo Panel InformationOrdered By: Peter Ahumada on 98-52-0146Naxnxpwnu GFR (CKD-EPI)> 60.0 mL/MinHighland District Hospital Pharmacy Creatinine Clearance (ChemN/AFChillicothe HospitalNucleated erythrocytes [Presence] in Blood by Automated countOrdered By: Peter Ahumada on 56-19-0256Zmammkqet RBC Auto Ql (Bld)0.1 /100{WBC}0-0.5FChillicothe HospitalPlatelet mean volume Auto (Bld) [Entitic vol]Ordered By: Peter Ahumada on 94-80-8682Pkouujgv mean volume (Bld) [Entitic vol]8.8 fL6.3-10.7 [facility] HospitalPlatelets Auto (Bld) [#/Vol]Ordered By: Peter Ahumada on 58-93-0770Arcjzwpch (Bld) [#/Vol]305 10*3/tX678-841FghjfbepfHighland District HospitalPotassium [Moles/volume] in Serum or PlasmaOrdered By: Peter Ahumada on 06-27-2573Nkisveoqx [Moles/Vol]4.2 mmol/L3.5-5.1FChillicothe HospitalProtein [Mass/volume] in Serum or PlasmaOrdered By: Peter Ahumada on 73-12-7683Qikhful [Mass/Vol]6.6 g/dL6.4-8.9[facility] HospitalRBC Auto (Bld) [#/Vol]Ordered By: Peter Ahumada on 16-38-5635EVY (Bld) [#/Vol]4.44 10*6/uL3.60-5.00[facility] Hospitalerum or plasma albumin/globulin mass ratioOrdered By: Peter Ahumada on 26-82-0854Txxrsop/Globulin [Mass ratio]1.4 {ratio}[facility] Hospitalerum or plasma anion gap determinationOrdered By: Peter Ahumada on 62-27-4030Nigwt gap [Moles/Vol]11.4 mmol/L6.0-15.0[facility] Hospitalerum or plasma high density lipoprotein (HDL) cholesterol measurementOrdered By: Peter Ahumada on 10-31-2022 Cholesterol in HDL [Mass/Vol]53 mg/dJ17-70QjushkcaxHighland District Hospital Comment on above:HDL CHOL ATP-III CLASSIFICATION Cardiovascular RiskHDL > or equal to 60 mg/dL LOWHDL < 40 mg/dL HIGHSerum or plasma total cholesterol/high density lipoprotein (HDL) cholesterol mass ratOrdered By: Peter Ahumada on 28-05-8678Mcdclwmezcu.total/Cholesterol in HDL [Mass ratio]2.9 {ratio}<5.0 [facility] Hospitalodium [Moles/volume] in Serum or PlasmaOrdered By: Peter Ahumada on 36-13-4041Zquctz [Moles/Vol]139 mmol/F138-086PocpvuhiiHighland District HospitalThyrotropin [Units/volume] in Serum or PlasmaOrdered By: Peter Ahumada on 82-15-2144OQL Qn0.61 m[IU]/L0.45-5.33[facility] HospitalThyroxine (T4) free [Mass/volume] in Serum or PlasmaOrdered By: Peter Ahumada on 55-64-6475Ajgg T4 [Mass/Vol]0.76 ng/dL0.61-1.12[facility] HospitalTriglyceride [Mass/volume] in Serum or PlasmaOrdered By: Peter Ahumada on 14-46-0454Jwqslzybhyxn [Mass/Vol]125 mg/dL0-149[facility] Comment on above:TRIG ATP III CLASSIFICATIONTRIG less than 150 mg/dL NormalTRIG 150-199 mg/dL Borderline highTRIG 200-500 mg/dL High TRIG greater than 500 mg/dL Very highStandard traceable to the Center for Disease Conrtrol and Prevention (CDC) test method.Urea nitrogen [Mass/volume] in Serum or PlasmaOrdered By: Peter Ahumada on 74-87-4663Wmua nitrogen [Mass/Vol]6 mg/dL7-25[facility] HospitalWBC Auto (Bld) [#/Vol]Ordered By: Peter Ahumada on 75-48-2405HVR (Bld) [#/Vol]8.2 10*3/uL3.8-11.6FChillicothe HospitalAlbumin [Mass/volume] in Serum or PlasmaOrdered By: Peter Ahumada on 42-74-4465Cschzjp [Mass/Vol]3.2 g/dL3.2-5.5FChillicothe HospitalBasophils Auto (Bld) [#/Vol]Ordered By: Peter Ahumada on 88-01-8293Hcfbxgrkj (Bld) [#/Vol]0.0 10*3/uL 0.0-0.2FChillicothe HospitalBasophils/100 WBC Auto (Bld)Ordered By: Peter Ahumada on 19-59-1189Fvhbxmgnh/100 WBC (Bld)0.7 %.[facility] HospitalBlood hemoglobin measurement (mass/volume)Ordered By: Peter Ahumada on 75-30-1927Wwaimbisdv (Bld) [Mass/Vol]12.3 g/dL11.8-15.4FChillicothe HospitalBlood leukocytes automated count (number/volume)Ordered By: Peter Ahumada on 70-85-5082LHT (Bld) [#/Vol]5.9 10*3/uL4.5-11.0[facility] HospitalCholesterol [Mass/volume] in Serum or PlasmaOrdered By: Peter Ahumada on 48-13-3164Ostksvfjwkj [Mass/Vol]159 mg/tC010-861RahcgjbnhHighland District HospitalComment on above:Chol less than 200 mg/dl low riskChol 201-239 mg/dl borderline riskChol 240 mg/dl and greater high riskCholesterol in LDL Calc [Mass/Vol]Ordered By: Peter Ahumada on 00-94-4312Uxnorbkitjr in LDL [Mass/Vol]84 mg/dL0-100[facility] HospitalComment on above:LDL ATP III CLASSIFICATIONLDL less than 100 mg/dL OptimalLDL 100-129 mg/dL Near or above lbrlsfnCVF117-861 mg/dL Borderline highLDL 160-189 mg/dL HighLDL greater than 189 mg/dL Very highCholesterol in VLDL Calc [Mass/Vol]Ordered By: Peter Ahumada on 01-09-2128Cgpbukvusme in VLDL [Mass/Vol]22 mg/dLHighland District HospitalCreatinine and Glomerular filtration rate.predicted panel (S/P/Bld)Ordered By: Peter Ahumada on 63-10-0036Rxaweerrrp [Mass/Vol]0.58 mg/dL0.44-1.03[facility] HospitalEosinophils Auto (Bld) [#/Vol]Ordered By: Peter Ahumada on 85-10-7263Rxlmenroccp (Bld) [#/Vol]0.1 10*3/uL0.0-0.45[facility] HospitalEosinophils/100 WBC Auto (Bld)Ordered By: Peter Ahumada on 04-19-2022 Eosinophils/100 WBC (Bld)2.4 %.[facility] HospitalErythrocyte distribution width Auto (RBC) [Ratio]Ordered By: Peter Ahumada on 04-19-2022 Erythrocyte distribution width (RBC) [Ratio]13.4 %11.9-15.3FChillicothe HospitalEstimated glomerular filtration rate (GFR) non- Ordered By: Peter Ahumada on 71-81-4463CCQ/1.73 sq M.predicted among non-blacks MDRD (S/P/Bld) [Vol rate/Area]> 60 mL/MinHighland District Hospital Globulin Calc (S) [Mass/Vol]Ordered By: Peter Ahumada on 39-30-4458Yidszcio (S) [Mass/Vol]3.1 g/dLHighland District HospitalHematocrit Auto (Bld) [Volume fraction]Ordered By: Peter Ahumada on 44-41-6858Dnhjmeqkbb (Bld) [Volume fraction] 37.1 %34.0-46.4FChillicothe HospitalLaboratory - Hematology and Cell countsOrdered By: Peter Ahmuada on 58-98-6812Kytglntag RBC/100 WBC (Bld) [Ratio]0.1 %0-0.5FChillicothe HospitalLymphocytes Auto (Bld) [#/Vol]Ordered By: Peter Ahumada on 86-41-2235Mvhrqjzetqg (Bld) [#/Vol]1.7 10*3/uL1.00-4.8 [facility] HospitalLymphocytes/100 WBC Auto (Bld)Ordered By: Peter Ahumada on 69-87-8342Gkpcftdkpjn/100 WBC (Bld)28.8 %.[facility] Auto (RBC) [Entitic mass]Ordered By: Peter Ahumada on 68-34-7701ARJ (RBC) [Entitic mass]27.8 pg24.7-34.3FChillicothe HospitalMCHC Auto (RBC) [Mass/Vol]Ordered By: Peter Ahumada on 03-19-1296MHZB (RBC) [Mass/Vol]33.2 g/dL 32.0-35.0[facility] HospitalMCV Auto (RBC) [Entitic vol]Ordered By: Peter Ahumada on 42-26-4976ICS (RBC) [Entitic vol]83.6 xR30-945NssvjgrtlHighland District HospitalMonocytes Auto (Bld) [#/Vol]Ordered By: Peter Ahumada on 90-03-3187Qnculnqvl (Bld) [#/Vol]0.4 10*3/uL0.0-0.8[facility] HospitalMonocytes/100 WBC Auto (Bld)Ordered By: Peter Ahumada on 04-19-2022 Monocytes/100 WBC (Bld)6.6 %.[facility] HospitalNeutrophils Auto (Bld) [#/Vol]Ordered By: Peter Ahumada on 34-61-6976Vbaptsicxfe (Bld) [#/Vol]3.6 10*3/uL1.8-7.7FChillicothe HospitalNeutrophils/100 WBC Auto (Bld) Ordered By: Peter Ahumada on 10-57-5809Faxbjdeigju/100 WBC (Bld)61.5 %.[facility] HospitalNo Panel InformationOrdered By: Peter Ahumada on 04-19-2022 Estimated GFR ()> 60 mL/MinHighland District Hospital Comment on above:GFR estimated reference range: According to KDOQI guidelines, <60 ml/min/1.73m2 is sufficient todiagnose a patient with chronic kidney disease.Pharmacy Creatinine Clearance (ChemN/[facility] Platelet mean volume Auto (Bld) [Entitic vol]Ordered By: Peter Ahumada on 19-09-1930Ryipatke mean volume (Bld) [Entitic vol]8.9 fL6.3-10.7FChillicothe HospitalPlatelets Auto (Bld) [#/Vol]Ordered By: Peter Ahumada on 32-21-9366Gkxabsvhn (Bld) [#/Vol]319 10*3/gS700-589TnptmhiquHighland District HospitalProtein [Mass/volume] in Serum or PlasmaOrdered By: Peter Ahumada on 52-85-3983Kgfbknc [Mass/Vol]6.3 g/dL6.1-7.9[facility] HospitalRBC Auto (Bld) [#/Vol]Ordered By: Peter Ahumada on 72-82-9071MPU (Bld) [#/Vol]4.43 10*6/uL3.60-5.00[facility] Hospitalerum or plasma alanine aminotransferase measurement without P-5'-P (enzymatic activiOrdered By: Peter Ahumada on 98-26-3996JDZ No additional P-5'-P [Catalytic activity/Vol]9 U/L10-60 [facility] Hospitalerum or plasma albumin/globulin mass ratio Ordered By: Peter Ahumada on 14-98-1141Cdpbhud/Globulin [Mass ratio]1.0 {ratio} [facility] Hospitalerum or plasma alkaline phosphatase measurement (enzymatic activity/volume)Ordered By: Peter Ahumada on 68-30-5529KFJ [Catalytic activity/Vol]41 U/Q79-73BugcuzaavOhio Valley Surgical Hospitalerum or plasma anion gap determinationOrdered By: Peter Ahumada on 59-95-6819Lhixe gap [Moles/Vol]13.9 mmol/L6.0-15.0[facility] Hospitalerum or plasma aspartate aminotransferase measurement (enzymatic activity/volume)Ordered By: Peter Ahumada on 26-40-0618WPH [Catalytic activity/Vol]15 U/G32-85BsbuaueedOhio Valley [facility] Hospitalerum or plasma calcium measurement (mass/volume)Ordered By: Peter Ahumada on 19-59-1604Ffzceiy [Mass/Vol]8.8 mg/dL8.2-10.2FOhioHealth Grove City Methodist Hospitalerum or plasma chloride measurement (moles/volume) Ordered By: Peter Ahumada on 19-60-8247Ittrtisp [Moles/Vol]100 mmol/L95-114 [facility] Hospitaler[facility] or plasma glucose measurement (mass/volume)Ordered By: Peter Ahumada on 43-37-3326Civtaho [Mass/Vol]87 mg/dL 70-100[facility] HospitalComment on above:ADA recommended reference rangeRandom Glucose Reference Range is dependent on time and content of last meal. Glucose of more than 200 mg/dL in a nonstressed, ambulatory subject supports the diagnosisof Diabetes Mellitus.Serum or plasma high density lipoprotein (HDL) cholesterol measurementOrdered By: Peter Ahumada on 04-19-2022 Cholesterol in HDL [Mass/Vol]53 mg/aS30-88StmkfgxdqHighland District Hospital Comment on above:HDL CHOL ATP-III CLASSIFICATION Cardiovascular RiskHDL > or equal to 60 mg/dL LOWHDL < 40 mg/dL HIGHSerum or plasma potassium measurement (moles/volume)Ordered By: Peter Ahumada on 66-12-8233Vbcjkboyu [Moles/Vol]3.9 mmol/L3.5-5.1FOhioHealth Grove City Methodist Hospitalerum or plasma sodium measurement (moles/volume)Ordered By: Peter Ahumada on 33-43-3305Jbthbz [Moles/Vol]136 mmol/L 136-146[facility] Hospitalerum or plasma total bilirubin measurement (mass/volume)Ordered By: Peter Ahumada on 59-62-2493Whwspvweo [Mass/Vol]0.4 mg/dL0.3-1.2FOhioHealth Grove City Methodist Hospitalerum or plasma total carbon dioxide measurement (moles/volume)Ordered By: Peter Ahumada on 04-19-2022 CO2 [Moles/Vol]26.0 mmol/L22.0-30.0[facility] Hospitalerum or plasma total cholesterol/high density lipoprotein (HDL) cholesterol mass rat Ordered By: Peter Ahumada on 31-72-7834Cfsjmdibdjn.total/Cholesterol in HDL [Mass ratio]3.0 {ratio}<5.0[facility] Hospitalerum or plasma urea nitrogen measurement (mass/volume)Ordered By: Peter Ahumada on 52-28-3312Uaen nitrogen [Mass/Vol]5 mg/dL9-23[facility] HospitalTS DL <= 0.005 mIU/L QnOrdered By: Peter Ahumada on 42-74-1349RSX Qn1.94 m[IU]/L0.45-5.33[facility] HospitalThyroxine (T4) free [Mass/volume] in Serum or Plasma Ordered By: Peter Ahumada on 01-83-3904Mgcc T4 [Mass/Vol]0.69 ng/dL0.61-1.12 [facility] HospitalTriglyceride [Mass/volume] in Serum or Plasma Ordered By: Peter Ahumada on 58-25-6363Dslnnkodluec [Mass/Vol]111 mg/jQ56-642 [facility] HospitalComment on above:TRIG ATP III CLASSIFICATIONTRIG less than 150 mg/dL NormalTRIG 150-199 mg/dL Borderline highTRIG 200-500 mg/dL High TRIG greater than 500 mg/dL Very highStandard traceable to the Center for Disease Conrtrol and Prevention (CDC) test method. Silvana 30-07-7440REZTBxxuzt Visit ([id number]) DARLING KHANNA ([id number]) 1980 F Date Time Provider Department 10/13/21 1:30 PM KATE DANIEL [id number] During your visit today, we recorded the following information about you: Temperature Pulse Blood pressure Weight 97.7 degrees 68/minute 112/55 115.2 kg Height 1.829 m Kate Daniel MD 10/17/2021 1:50 PM Signed Assessment ESTABLISHED PATIENT Darling Khanna is a 40 year old female with a right posterior liver subcapsular fluid collection ? 03/03/2021: Patient presented to [facility] on 02/08/2021 for 2 days for acute ride sided abdominal/flank pain, right shoulder discomfort and nausea. She was diagnosed with Klebsiella pneumoniae UTI and was discharged with oral keflex and zofran. Patient represented to ER on 02/09/2021 for the continued complaints of pain. ? Referral From:?PCP- Peter Ahumada, DO Reason:?right abdominal pain pain; liver?fluid collection? ? Received Records From:? 02/08/2021 [facility] 02/09/2021 [facility] 02/15/2021 PCP Office note ? Visited [...] gradually improving. US of ovaries yesterday at [facility]. Scheduled for upper GI at end of month. Gained?50 pounds since July?(was in [place] for 3 months, drank a lot); diagnosed [...] well. She did spend 3 months in [place] and did not have any issues, hospitalizations [...] which included preparing to see the patient, cazl-sh-gvxw patient care and completing clinical documentation. MD Jayne Garrido Ma 10/13/2021 1:33 PM Signed What is the reason for your visit today? Follow up Who is your referring physician? Are you having poor oral intake? NO Have you had unintentional weight loss of 15 lbs/7 Kg in the last 3-6 months? NO Bowels: regular Wound: Temperature: No Drains: No Referring Provider: KATE DANIEL [[id number]] Allergies As of Date: 10/13/2021 Noted Allergy [...] Comments as of 05/10 (more content not included)...NormalWadsworth-Rittman Hospitalon 61-54-4007COVIMrqdlyqts (MIC151) DARLING KHANNA ([id number]) 1980 F Date Time Provider Department 09/30/21 KATE DANIEL [id number] During your visit today, we recorded the following information about you: Sujatha Tomas 09/30/2021 9:00 AM Signed Called patient to reschedule her 10/13 in person to virtual. She would like to keep in person. She also wants to know if a CT or MRI can be ordered of her pancreas abdomen as she hasn't had anything done recently. She can be reached at [phone]. Talat Armendariz RN 10/10/2021 11:29 AM Signed [...] Encounter Status:Closed by TALAT ARMENDARIZ RN on 10/10/21[facility] [id number] Visit ([id number]) DARLING KHANNA ([id number]) 1980 F Date Time Provider Department 04/07/21 2:30 PM KATE DANIEL [id number] During your visit today, we recorded the following information about you: Temperature Pulse Blood pressure Weight 97.5 degrees 95/minute 136/77 109.3 kg Height 1.829 m Jayne Aguila Tn 04/07/2021 2:31 PM Signed What is the [...] subcapsular fluid collection 03/03/2021: Patient presented to [facility] on 02/08/2021 for 2 days for acute ride sided abdominal/flank pain, right shoulder discomfort and nausea. She was diagnosed with Klebsiella pneumoniae UTI and was discharged with oral keflex and zofran. Patient represented to ER on 02/09/2021 for the continued complaints of pain. ? Referral From:?PCP- Peter Ahumada, DO Reason:?right abdominal pain pain; liver?fluid collection? ? Received Records From:? 02/08/2021 [facility] 02/09/2021 [facility] 02/15/2021 PCP Office note ? Visited [...] gradually improving. US of ovaries yesterday at [facility]. Scheduled for upper GI at end of month. Gained 50 pounds since July (was in [place] for 3 months, drank a lot); diagnosed [...] which included preparing to see the patient, bohx-ez-ylmt patient care and completing clinical documentation. Kate Daniel MD Referring Provider: KATE DANIEL [[id number]] Allergies As of Date: 04/07/2021 Noted Allergy [...] 05/10/2018: BC Problem List As Of Date 04/07/2021 Noted Resolved Chronic pain of right knee [M25.561, G89.29] 11/12/2017 Pain in right foot [M79.671] 11/26/2017 Visit Notes: >> Jayne Aguila Ma [facility] Apr 07, 2021 2:28 PM Status: Signed What is the reason for your visit today? Follow up Who is your referring physician? Are you having poor oral intake? NO Have you had unintentional weight loss of 15 lbs/7 Kg in the last 3-6 months? NO Bowels: regular Wound: Temperature: No (more content not included)...NormalTuscarawas Hospital 42-44-9380HXSPJJAtulghrvu Team (GENN) DARLING KHANNA ([id number]) 1980 F Date Time Provider Department 03/22/21 WILLIAM DE LEÓN During your visit today, we recorded the following information about you: iWlliam De León MD 03/23/2021 7:25 AM Signed [...] findings to suggest etiology Pre-conference plan (from [employer]): - Observation and serial imaging Imaging Review: [...] Encounter Status:Closed by WILLIAM DE LEÓN on 03/23/21[facility] [id number] Visit ([id number]) DARLING KHANNA ([id number]) 1980 F Date Time Provider Department 03/03/21 10:00 AM KATE DANIEL [id number] During your visit today, we recorded the following information about you: Temperature Pulse Blood pressure Weight 98.3 degrees 82/minute 128/85 112 kg Height 1.829 m Jayne [facility] 03/03/2021 10:03 AM Signed What is the [...] 40 year old female Patient presented to [facility] on 02/08/2021 for 2 days for acute ride sided abdominal/flank pain, right shoulder discomfort and nausea. She was diagnosed with Klebsiella pneumoniae UTI and was discharged with oral keflex and zofran. Patient represented to ER on 02/09/2021 for the continued complaints of pain. ? Referral From: PCP- Peter Kuns, DO Reason: right abdominal pain pain; liver fluid collection ? Received Records From: 02/08/2021 [facility] 02/09/2021 ER [facility] 02/15/2021 PCP Office note Visited ER [...] gradually improving. US of ovaries yesterday at [facility]. Scheduled for upper GI at end of month. Gained 50 pounds since July (was in [place] for 3 months, drank a lot); diagnosed [...] think it was malignant. Seen by Dr. Lara on [facility], in [facility]; denies chemotherapy or radiation. Hernia repair [...] Ht 182.9 cm (6') (more content not included)...NormalKettering Health TroyCNPNon 34-34-4073AHGMAnpvmhfhs ([facility]) DARLING KHANNA ([id number]) 1980 F Date Time Provider Department 02/23/21 KATE DANIEL [facility] During your visit today, we recorded the following information about you: Talat Armendariz RN 02/23/2021 10:02 AM Addendum Hepatobiliary Surgery Consult HPI: Patient presented to [facility] on 02/08/2021 for 2 days for [...] collection Received Records From: 02/08/2021 [facility] 02/09/2021 [facility] 02/15/2021 PCP Office note Records Review BMI 33 Current OCP Imagin02/08/2021 CT A/P wo IVCON ([facility]- report rec'd) - minor basilar atelectasis or scarring - nonspecific lymph nodes - tiny umbilical hernia containing fat - no intra hepatic masses are noted - no bowel or urinary tract obstructions - no acute findings 02/08/2021 Ultrasound RUQ ([facility]- report rec'd) - unremarkable - no evidence of gallstones, gallbladder wall thickening, or ductal dilation 02/15/2021 CT A/P w IVCON ([facility]- report [facility]) - no acute abdominal or pelvis abnormality - indeterminate liver lesion: ill defined low attenuation lesion measuring at least 2.5cm in the medial segment of the left lobe of the liver posteriorly 02/17/2021 MRI Abdomen w/wo IVCON ([facility]- report [facility]) - unremarkable size of [...] months 02/22/2021 CT A/P w IVCON (Report [facility]- report rec'd) - 62mm x [...] 8:26 AM Signed Patient's records scanned into [employer] and imaging downloaded from [facility] AND [place], please review. Tatyana Leroy 02/25/2021 9:53 AM Signed Scheduled patient for new consult on 03/03/2021. 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 Reason for Visit: Can Carrier - Other [3602] Consult [173] Prescriptions as [...] 11/26/2017 Encounter Status:Closed by TATYANA PEDRO on 02/25/21[facility], BeachwoodAMYLASEon 64-32-5078Tjohkgt [Catalytic activity/Vol]48 U/LNormal 31-110The [facility] CenterComment on above:Performed By: #### LIPA, CMP, SHAI #### [facility] [address] [address] Ruy KarenCBC AUTO DIFFon 95-01-8051OUXM #0.1 103/ulNormal0.0-0.1The [facility] CenterComment on above:Performed By: #### CBC #### [facility] [address] [id number] Ruy KarenBasophils/100 WBC (Bld)0.7 %Normal0.2-2.0The [facility] Comment on above:Performed By: #### CBC #### [facility] [address] [address] Ruy KarenEO #0.1 103/ulNormal0.0-0.7The [facility] CenterComment on above: Performed By: #### CBC #### [facility] [address] [place] [address] Ruy KarenEosinophils/100 WBC (Bld)1.2 %Normal0.9-7.0The [facility] Comment on above:Performed By: #### CBC #### [facility] [address] [place] [address] Ruy KarenErythrocyte distribution width (RBC) [Ratio]12.6 %Qahdjb83.0-15.0The [facility] CenterComment on above:Performed By: #### CBC #### [facility] [address] [place] [address] Ruy KarenHematocrit (Bld) [Volume fraction]38.7 %Hvgwhb14.0-48.0The [facility] CenterComment on above:Performed By: #### CBC #### [facility] [address] [place] [address] Ruy KarenHemoglobin (Bld) [Mass/Vol]12.6 g/wDJmjeev67.0-16.0The [facility] CenterComment on above:Performed By: #### CBC #### [facility] [address] [place] [address] Ruy KarenIG #0.02 10e3/ulNormal0.00-0.03The [facility] CenterComment on above:Performed By: #### CBC #### [facility] [address] [place] [address] Ruy KarenIG %0.2 %Normal0.0-0.5The [facility] CenterComment on above: Performed By: #### CBC #### [facility] [address] [place] [address] Ruy KarenLYMPH #2.4 103/ulNormal1.2-3.8The [facility] CenterComment on above: Performed By: #### CBC #### [facility] [address] [id number] Ruy KarenLymphocytes/100 WBC (Bld)22.4 %Zfatxa16.5-60.0[facility] Comment on above:Performed By: #### CBC #### [facility] [address] [place], [place] [id number] Ruy KarenMANUAL DIFF REQNONormalThe [facility] CenterComment on above: Performed By: #### CBC #### [facility] [address] [address] Ruy KarenMCH (RBC) [Entitic mass]27.7 rhEaioxq46.7-34.0The [facility] Comment on above:Performed By: #### CBC #### [facility] [address] [place] [address] Ruy KarenMCHC (RBC) [Mass/Vol]32.6 g/gZAxuolq72.9-35.2[facility] Comment on above:Performed By: #### CBC #### [facility] [address] [place] [address] Ruy KarenMCV (RBC) [Entitic vol]85.1 wUEtfwgc59.0-99.0[facility] Comment on above:Performed By: #### CBC #### [facility] [address] [place] [address] Ruy KarenMONO #0.7 103/ulNormal0.3-0.8The [facility] CenterComment on above: Performed By: #### CBC #### [facility] [address] [place] [address] Ruy KarenMonocytes/100 WBC (Bld)6.5 %Normal1.7-12.0The [facility] Comment on above:Performed By: #### CBC #### [facility] [address] [place] [address] Ruy KarenNEUT #7.3 103/ulCritically high1.4-6.5The [facility] CenterComment on above:Performed By: #### CBC #### [facility] [address] [place], [place] [id number] Ruy CardozoenNeutrophils/100 WBC (Bld)69.0 %Xhsxvv42.0-75.0The [facility] Comment on above:Performed By: #### CBC #### [facility] [address] [place] [address] Ruy CardozoenPlatelet mean volume (Bld) [Entitic vol]9.3 fLCritically low9.5-13.5 The [facility] CenterComment on above:Performed By: #### CBC #### [facility] [address] [place] [address] Ruy HfjkfDHW610 103/mfEdkgwa882-499Wob [facility] CenterComment on above: Performed By: #### CBC #### [facility] [address] [place] [address] Ruy KarenRBC4.55 106/ulNormal4.20-5.40The [facility] CenterComment on above: Performed By: #### CBC #### [facility] [address] [place] [address] Ruy CardozoenWBC10.6 103/ulNormal4.0-11.0The [facility] CenterComment on above: Performed By: #### CBC #### [facility] [address] [place] [address] Ruy KarenCT ABD/PELV W CONon 74-99-5309LX ABD/PELV W CONEXAMINATION: CT ABD/PELV W CON HISTORY: ABDOMINAL DISTENSION (GASEOUS) acute [...] authenticated by: LUZ MARINA HERNANDEZ Date: 2021-02-22 03:10NoGuernsey Memorial HospitalD-DIMERon 25-19-4346T-DIMER0.40 mg/L FEUNormal0.19-0.50The [facility] CenterComment on above:Performed By: #### DDIM #### [facility] [address] [place] [address] Gimahhot KarenD-DIMER COMMENTSSEE BELOWVeterans Health AdministrationComment on above:Result Comment: Increases in D-Dimer concentration observed with thromboembolic events [...] stress, and generalized hospitalization. Performed By: #### DDIM #### [facility] [address] [place] [address] Ruy KarenLIPASEon 25-73-0734Aoexnt [Catalytic activity/Vol]120.0 U/LNormal 23.0-300.0The [facility] CenterComment on above:Performed By: #### LIPA, CMP, SHAI #### [facility] [address] [place] [address] Ruy KarenMONOon 72-10-6715Iewexeopv (Bld) [#/Vol]NegativeNormalNEGATIVEThe [facility] CenterComment on above:Performed By: #### MONO #### [facility] [address] [place] [address] Ruy KarenOT-CT ABD/PELVIS W CON IMPORTon 64-48-4950EB-CT ABD/PELVIS W CON IMPORTImages were obtained outside of [facility] [id number] HospitalOT-CT ABD/PELVIS W CON IMPORTImages were obtained outside of [facility] [id number] HospitalPREG HCG QUALon 02-22-2021 , QUALNegativeNormalNEGATIVEThe [facility] CenterComment on above: Performed By: #### PREG #### [facility] [address] [place] [address] Ruy KarenPROF 14(COMP METB)on 56-44-6494Ganuqtz [Mass/Vol]3.2 g/dLCritically low3.5-5.0The [facility] CenterComment on above:Performed By: #### SYEDA CMP, SHAI #### [facility] [address] [place] [address] Ruy KarenAlbumin/Globulin [Mass ratio]0.7 {ratio}NormalWayne Healthcare Main Campus Comment on above:Performed By: #### SYEDA CMP, SHAI #### [facility] [address] [place] [address] Ruy KarenALP [Catalytic activity/Vol]54 U/BKgasub98-041DdtWayne Healthcare Main Campus Comment on above:Performed By: #### LIPLilly CMP, SHAI #### [facility] [address] [place] [address] Ruy KarenALT [Catalytic activity/Vol]11 U/LNormal9-52The [facility] Comment on above:Performed By: #### LIPA, CMP, SHAI #### [facility] [address] [place] [address] Ruy KarenAnion gap [Moles/Vol]11.6 mmol/LNormalThe [facility] CenterComment on above:Performed By: #### LIPA, CMP, SHAI #### [facility] [address] [place] [address] Ruy KarenAST [Catalytic activity/Vol]12 U/LCritically zjk17-80CocWayne Healthcare Main CampusComment on above:Performed By: #### KARLI LANDA, SHAI #### [facility] [address] [place] [address] Ruy KarenBilirubin [Mass/Vol]0.2 mg/dLNormal0.2-1.3The [facility] Comment on above:Performed By: #### KARLI LANDA, SHAI #### [facility] [address] [place] [address] Ruy KarenCalcium [Mass/Vol]9.2 mg/dLNormal8.4-10.2The [facility] Comment on above:Performed By: #### KARLI LANDA, SHAI #### [facility] [address] [place] [address] Ruy KarenChloride [Moles/Vol]104 mmol/IUdkukk29-614OqeWayne Healthcare Main Campus Comment on above:Performed By: #### KARLI LANDA, SHAI #### [facility] [address] [place] [address] Ruy KarenCO2 [Moles/Vol]29.7 mmol/BAmqlhp14.0-30.0[facility] Comment on above:Performed By: #### KARLI LANDA, SHAI #### [facility] [address] [place] [address] Ruy KarenCreatinine [Mass/Vol]0.74 mg/dLNormal0.52-1.04[facility] Comment on above:Performed By: #### SYEDA CMP, SHAI #### [facility] [address] [place] [address] Ruy KarenEGFR-AF NIUEAN>60Normal>=60The [facility] CenterComment on above: Performed By: #### SYEDA CMP, SHAI #### [facility] [address] [place] [address] Ruy KarenEGFR-NON AF NIUEAN>60Normal>=60The [facility] CenterComment on above:Performed By: #### SYEDA CMP, SHAI #### [facility] [address] [address] Ruy KarenGlobulin (S) [Mass/Vol]4.4 g/dLNormCleveland Clinic Euclid HospitalComment on above:Performed By: #### KARLI LANDA, SHAI #### [facility] [address] [address] Ruy KarenGlucose [Mass/Vol]104 mg/wHEhltme42-775Qfq [facility] CenterComment on above:Performed By: #### KARLI LANDA, SHAI #### [facility] [address] [place] [address] Ruy KarenPotassium [Moles/Vol]4.3 mmol/LNormal3.4-5.0The [facility] Comment on above:Performed By: #### KARLI LANDA, SHAI #### [facility] [address] [place] [address] Ruy KarenProtein [Mass/Vol]7.6 g/dLNormal6.1-8.2The [facility] CenterComment on above:Performed By: #### KARLI LANDA, SHAI #### [facility] [address] [place] [address] Ruy KarenSodium [Moles/Vol]141 mmol/IHjyaot529-475Qsr [facility] Comment on above:Performed By: #### KARLI LANDA, SHAI #### [facility] [address] [place] [address] Ruy KarenUrea nitrogen [Mass/Vol]9.0 mg/dLNormal7.0-17.0The [facility] Comment on above:Performed By: #### KARLI LANDA, SHAI #### [facility] [address] [place] [address] Ruy KarenUrea nitrogen/Creatinine [Mass ratio]12.2 mg/mgNoGuernsey Memorial HospitalComment on above:Performed By: #### KARLI LANDA, SHAI #### [facility] Laboratory [address] [place] [address] Ruy KarenMR-MR abdomen wo/w con IMPORTon 90-80-6316MG-MR abdomen wo/w con IMPORTImages were obtained outside of [facility] [id number]_IDCSIACNNNewark HospitalCT-CT abdomen pelvis w con IMPORTon 12-12-1768EI-CT abdomen pelvis w con IMPORTImages were obtained outside of [facility] [id number]_IDCSIACNNUniversity Hospitals [facility] ClevelandCT-CT abdomen pelvis wo con IMPORTon 39-17-2893NM-CT abdomen pelvis wo con IMPORTImages were obtained outside of [facility] [id number]_IDCSIACNNNewark HospitalUS-US gall bladder IMPORT on 53-98-5457KX-US gall bladder IMPORTImages were obtained outside of [facility] [id number]_IDCSIACNNNewark HospitalCNOVon 92-77-9771JFDJ Office Visit (LOORRM) DARLING HKANNA ([id number]) 1980 F Date Time Provider Department 12/28/20 3:30 PM CAST TECH YANIRA WISESilva During your visit today, we recorded the following information about you: Tracey Hair Ma 12/28/2020 4:25 PM Signed Dispensed XL/XXL Reaction brace for the Right knee. Dispensed by O [employer]. Instructions were given on application/adjustments. She will f/u as scheduled/prn. Tracey Hair MA,ROT Referring Provider: ISHAN YUSUF [[id number]] Allergies As of Date: 12/28/2020 Noted Allergy [...] Encounter Status:Closed by TRACEY HAIR MA on 12/28/20[facility] Visit (LOORRM) DARLING KHANNA ([id number]) 1980 F Date Time Provider Department 12/28/20 [...] was performed today. CLINICAL IMPRESSION / ASSESSMENT: (G71.313D) Closed nondisplaced fracture of proximal phalanx of [...] little finger with routine healing, subsequent encounter [S64.532R] Other Visit Diagnosis:Patellofemoral arthralgia of right knee [...] 11/26/2017 Encounter Status:Closed by ISHAN YUSUF on 12/28/20[facility] [id number] Visit (LOORRM) DARLING KHANNA ([id number]) 1980 F Date Time Provider Department 11/30/20 [...] results and radiologist's interpretation, available in the [facility] health record. Images were reviewed with the patient/family members in the office today. My personal interpretation of the performed imaging is healing proximal phalanx fracture CLINICAL IMPRESSION / ASSESSMENT: (B37.570J) Closed nondisplaced fracture of proximal phalanx of [...] little finger with routine healing, subsequent encounter [A46.303Q] Order(s):XR HAND GENERAL 3V PA/LAT/OBL LT [[id number]] Order #: [id number] FUTURE CONSULT TO [facility] REDEVELOPMENT SITE MANAGER [[id number]] Order #: [id number]: 1 FUTURE Prescriptions as of 11/30/2020 Sig: [...] 11/26/2017 Encounter Status:Closed by ISHAN YUSUF on 11/30/20[facility] PA/LAT/OBL LTon 87-70-4324PP HAND 3V PA/LAT/OBL LT* * *Final Report* * * DATE OF [...] fractures. IMPRESSION: Healing 5th proximal phalanx fracture Hospital Account Manager: WILBERT Transcribe Date/Time: Nov 30 2020 4:18P Dictated by : JUDITH FUENTES MD This examination was interpreted and the report reviewed and electronically signed by: JUDITH FUENTES MD on Nov 30 2020 4:19PM EST [id number]_IDCSIACNNormalKettering Health TroyXR Hand - left PA and Lateral and Obliqueon 70-13-7477MWNIBJIUHM: Healing 5th proximal phalanx fracture Hospital Account Manager: WILBERT Transcribe Date/Time: Nov 30 2020 4:18P Dictated by : JUDITH FUENTES MD This examination was interpreted and the report reviewed and electronically signed by: JUDITH FUENTES MD on Nov 30 2020 4:19PM EST DIVISION OF RADIOLOGY* * *Final Report* * * DATE OF [...] of healing. No additional fractures. DIVISION OF RADIOLOGYProvider, [facility] [place] - 11/30/2020 * * *Final Report* * [...] IMPRESSION IMPRESSION: Healing 5th proximal phalanx fracture Hospital Account Manager: PSCB Transcribe Date/Time: Nov 30 2020 4:18P Dictated by : JUDITH FUENTES MD This examination was interpreted and the report reviewed and electronically signed by: JUDITH FUENTES MD on Nov 30 2020 4:19PM [facility]Rad[facility] Study observation (narrative)[facility] - left PA and Lateral and ObliqueOrdered By: [facility] Provider on 18-20-5373Qwjlstaky ClinicCNOVon 27-86-2102ZBSOOlnxjm Visit (LOORRM) DARLING KHANNA ([id number]) 1980 F Date Time Provider Department 11/18/20 [...] results and radiologist's interpretation, available in the [facility] health record. Images were reviewed with the patient/family members in the office today. My personal interpretation of the performed imaging is intra-articular proximal phalanx fracture CLINICAL IMPRESSION / ASSESSMENT: (R72.309U) Closed nondisplaced fracture of proximal phalanx of [...] phalanx of left little finger, initial encounter [S62.442U] Order(s):XR HAND GENERAL 3V PA/LAT/OBL LT [[id number]] Order #: [id number] FUTURE Prescriptions as of 11/18/2020 Sig: OMEPRAZOLE [...] right foot [M79.671] 11/26/2017 Encounter Status:Closed by PARAMJIT ISHAN Gallo on 11/18/20[facility]Sum[facility] CampusXR HAND 3V PA/LAT/OBL LTon 26-80-0783FD HAND 3V PA/LAT/OBL LT* * *Final Report* * * DATE OF [...] unchanged. IMPRESSION: Healing fifth proximal phalanx fracture. Hospital Account Manager: WILBERT Transcribe Date/Time: Nov 18 2020 8:15P Dictated by : ADRIANE CAMPOS MD This examination was interpreted and the report reviewed and electronically signed by: ADRIANE CAMPOS MD on Nov 18 2020 8:27PM EST [id number]_IDCSIACNNormalKettering Health TroyXR Hand - left PA and Lateral and Obliqueon 99-72-4891JVLUMLLXKH: Healing fifth proximal phalanx fracture. Hospital Account Manager: PSCB Transcribe Date/Time: Nov 18 2020 8:15P Dictated by : ADRIANE CAMPOS MD This examination was interpreted and the report reviewed and electronically signed by: ADRIANE CAMPOS MD on Nov 18 2020 8:27PM EST DIVISION OF RADIOLOGY* * *Final Report* * * DATE OF [...] No new fracture. Remainder unchanged. DIVISION OF RADIOLOGYProvider, [facility] [place] - 11/18/2020 * * *Final Report* * [...] IMPRESSION IMPRESSION: Healing fifth proximal phalanx fracture. Hospital Account Manager: PSCB Transcribe Date/Time: Nov 18 2020 8:15P Dictated by : ADRIANE CAMPOS MD This examination was interpreted and the report reviewed and electronically signed by: ADRIANE CAMPOS MD on Nov 18 2020 8:27PM [facility] (narrative)[facility] HospitalXR Hand - left PA and Lateral and ObliqueOrdered By: [facility] Provider on 11-50-4603Nkavdadgn ClinicCNOV 84-10-5644ZDHFPjupsg Visit (ORAVON) DARLING KHANNA ([id number]) 1980 F Date Time Provider Department 11/04/20 2:00 PM BOB MILLAN During your visit today, we recorded the following information about you: Bob Millan DO 11/04/2020 2:12 PM Signed [facility] Office Visit Documentation Note [facility]opaedic [facility] Rheumatologic [place] REASON FOR VISIT / CHIEF COMPLAINT SERVICE [...] results and radiologist's interpretation, available in the [facility] health record. Images were reviewed with the patient/family members in the office today. My personal interpretation of the performed imaging is Has IA prox phalanx fracture at PIP ASSESSMENT / PLAN CLINICAL IMPRESSION / ASSESSMENT: (V03.171M) Closed nondisplaced fracture of proximal phalanx of [...] plan as detailed above. Bob Millan D.O. [facility] [place] Team Physician, [facility] Consulting Physician, [facility] Dayan Landeros, Twister Operator [phone] Patient verbalizes understanding and agrees with the treatment plan as detailed above. Referring Provider: SELF [[id number]] Allergies As of Date: 11/04/2020 Noted Allergy Reaction INDOMETHACIN 05/10/2018 7 - Swelling Date Reviewed: 11/04/2020 Reviewed by: Juaquin Farmer - Fully Assessed Reason for Visit: New [[id number]] Primary Visit Diagnosis:Closed nondisplaced fracture of proximal phalanx of left little finger, initial encounter [O36.254A] Prescriptions as of 11/04/2020 Sig: OMEPRAZOLE 40 [...] for Dr. Yusuf or Shayla Silva in [place]. Follow-up and Disposition History Recorded Encounter Status:Closed by BOB MILLAN DO on 11/04/20NoSumma Health Akron CampusDX-XR HAND COMPLETE LEFT IMPORTon 01-48-4069DJ-XR HAND COMPLETE LEFT IMPORTImages were obtained outside of [facility] [id number]_IDCSIACNNormalKettering Health Troy Vital Signs Date TimeVital SignValuePerforming TsrdpndtcXpkgmzeq86-40-5234 08:04-0400Body uhzril174.88 cmPeter Shens DO Work Phone: [phone] [place], [place] 7414610-29-2025 08:04-0400 Body mass index (BMI) [Ratio]30.7 kg/z5MsbjhPeter Shens DO Work Phone: [phone]10-29-2025 08:04-0400 Body iglqrr232.96 kgPeter Shens DO Work Phone: [phone] [place], [place] 7414610-29-2025 08:04-0400 Diastolic blood kstoijnk96 mm[Hg]Peter Shens DO Work Phone: [phone] [place], [place] 7414610-29-2025 08:04-0400 Heart rate91 /minPeter Shens DO Work Phone: [phone]10-29-2025 08:04-0400 Respiratory rate16 /minPeter Shens DO Work Phone: [phone]10-29-2025 08:04-0400 SaO2% (BldA) [Mass fraction]96 %Peter Ahumada DO Work Phone: [phone]10-29-2025 08:04-0400 Systolic blood esfdipez443 mm[Hg]Peter Shens DO Work Phone: [phone] [place], [place] 7414605-19-2025 12:48-0400 Body rxyprr012.88 cmPeter Shens DO Work Phone: [facility]05-19-2025 12:48-0400 Body mass index (BMI) [Ratio]27.3 kg/r0NjnzkPeter Shens DO Work Phone: [facility]05-19-2025 12:48-0400 Body xidpnj76.62 kgPeter Shens DO Work Phone: [facility]05-19-2025 12:48-0400 Diastolic blood irigawwy51 mm[Hg]Peter Shens DO Work Phone: [facility]05-19-2025 12:48-0400 Heart rate76 /minPeter Ahumada DO Work Phone: [facility]05-19-2025 12:48-0400 Respiratory rate18 /minPeter Ahumada DO Work Phone: [phone]05-19-2025 12:48-0400 SaO2% (BldA) [Mass fraction]96 %Peter Ahumada DO Work Phone: [facility]05-19-2025 12:48-0400 Systolic blood cvbywcee449 mm[Hg]Peter Ahumada DO Work Phone: [facility]02-19-2025 15:25-0500 Body uojpzt500.9 cmFredric Itzkowitz DO Work Phone: [facility] CenterXeosakwjcd12-74-2643 15:25-0500Body mass index (BMI) [Ratio]27.8 kg/z0Rhpkzxk Itzkowitz DO Work Phone: [facility] CenterXqlwpnnwyr06-53-6164 15:25-0500Body wqtibl92.99 kgFredric Itzkowitz DO Work Phone: [facility] CenterFcsfhdizhi97-29-5413 15:25-0500Diastolic blood mm[Hg]Alber Itzkowitz DO Work Phone: [facility] CenterTbmjbnesrz44-30-2997 15:25-0500Systolic blood emgbrhmj088 mm[Hg]Alber Itzkowitz DO Work Phone: [facility] CenterAvythehelh28-67-1293 14:37-0500Body vuvenq481.88 cmPeter Ahumada DO Work Phone: [facility]02-18-2025 14:37-0500 Body mass index (BMI) [Ratio]27.9 kg/t4LirygPeter Shens DO Work Phone: [facility]02-18-2025 14:37-0500 Body noceuv54.44 kgPeter Shens DO Work Phone: [facility]02-18-2025 14:37-0500 Diastolic blood nhzloqta97 mm[Hg]Peter Shens DO Work Phone: [facility]02-18-2025 14:37-0500 Heart rate74 /minPeter Ahumada DO Work Phone: [facility]02-18-2025 14:37-0500 SaO2% (BldA) [Mass fraction]95 %Peter Ahumada DO Work Phone: [facility]02-18-2025 14:37-0500 Systolic blood gficstfw873 mm[Hg]Peter Shens DO Work Phone: [facility]11-19-2024 15:00-0500 Body tvwome385.88 cmPeter Shens DO Work Phone: [facility]11-19-2024 15:00-0500 Body mass index (BMI) [Ratio]32.3 kg/h2HkbvdPeter Shens DO Work Phone: [facility]11-19-2024 15:00-0500 Body dxeefv927.95 kgTerryluiza Shens DO Work Phone: [facility]11-19-2024 15:00-0500 Diastolic blood mm[Hg]Peter Acs DO Work Phone: [facility]11-19-2024 15:00-0500 Heart rate75 /minPeter Shens DO Work Phone: [facility]11-19-2024 15:00-0500 Respiratory rate16 /minPeter Shens DO Work Phone: [facility]11-19-2024 15:00-0500 SaO2% (BldA) [Mass fraction]96 %Peter Shens DO Work Phone: [facility]11-19-2024 15:00-0500 Systolic blood jemwteoi72 mm[Hg]Peter Shens DO Work Phone: [facility]08-15-2024 14:27-0400 Body gefkkz762.88 cmDO Peter Shens Work Phone: [facility]08-15-2024 14:27-0400 Body mass index (BMI) [Ratio]36.4 kg/m2DO Peter Shens Work Phone: [facility]08-15-2024 14:27-0400 Body vjfoqp102.01 kgDO Peter Ahumada Work Phone: [facility]08-15-2024 14:27-0400 Diastolic blood mm[Hg]DO Peter Ahumada Work Phone: [facility]08-15-2024 14:27-0400 Heart rate77 /minDO Peter Shens Work Phone: [facility]08-15-2024 14:27-0400 Respiratory rate16 /minDO Peterluiza Shens Work Phone: [facility]08-15-2024 14:27-0400 SaO2% (BldA) [Mass fraction]96 %DO Peter Shens Work Phone: [facility]08-15-2024 14:27-0400 Systolic blood jwqfyqkw981 mm[Hg]DO Peter Kuns Work Phone: [facility]07-09-2024 14:05-0400 Diastolic blood mywvsmma43 mm[Hg]DO Peter Ahumada Work Phone: [facility]07-09-2024 14:05-0400 Heart rate91 /Phillip Ahumada Work Phone: [facility]07-09-2024 14:05-0400 Respiratory rate16 /HayleyO Peter Ahumada Work Phone: [facility]07-09-2024 14:05-0400 SaO2% (BldA) [Mass fraction]94 %DO Peter Ahumada Work Phone: [facility]07-09-2024 14:05-0400 Systolic blood wjehruoa343 mm[Hg]DO Peter Ahumada Work Phone: [facility]07-09-2024 13:05-0400 Body ussdewcnegs69 [degF]DO Peter Ahumada Work Phone: [facility]07-09-2024 12:42-0400 Inhaled oxygen flow rate8 L/Phillip Ahumada Work Phone: [facility]07-09-2024 11:44-0400 Body cssgoc274.88 cmDO Peter Ahumada Work Phone: [facility]07-09-2024 11:44-0400 Body mass index (BMI) [Ratio]36.5 kg/m2DO Peter Ahumada Work Phone: [facility]07-09-2024 11:44-0400 Body ndeypx416.2 kgDO Peter Ahumada Work Phone: [facility]06-10-2024 07:25-0400 Body sbthap2067.56 cmDO Peter Ahumada Work Phone: [facility]06-10-2024 07:25-0400 Body mass index (BMI) [Ratio]0.2 kg/m2DO Peter Ahumada Work Phone: [facility]06-10-2024 07:25-0400 Body hzceyv476.46 kgDO Peter Ahumada Work Phone: [facility]06-10-2024 07:25-0400 Diastolic blood cgjjmejj32 mm[Hg]DO Peter Ahumada Work Phone: [facility]06-10-2024 07:25-0400 Heart rate65 /Phillip Ahumada Work Phone: [facility]06-10-2024 07:25-0400 Respiratory rate16 /Phillip Ahumada Work Phone: [facility]06-10-2024 07:25-0400 SaO2% (BldA) [Mass fraction]97 %DO Peter Ahumada Work Phone: [facility]06-10-2024 07:25-0400 Systolic blood cpqodnhf812 mm[Hg]DO Peter Ahumada Work Phone: [facility]06-06-2024 14:20-0400 Body qzgexp272.88 cmDO Peter Ahumada Work Phone: [facility]06-06-2024 14:20-0400 Body mass index (BMI) [Ratio]37.3 kg/m2DO Peter Ahumada Work Phone: [facility]06-06-2024 14:20-0400 Body zpoxol050.73 kgDO Peter Ahumada Work Phone: [facility]06-06-2024 14:20-0400 Diastolic blood mavgdvvh78 mm[Hg]DO Peter Ahumada Work Phone: [facility]06-06-2024 14:20-0400 Heart rate86 /Phillip Ahumada Work Phone: [facility]06-06-2024 14:20-0400 Respiratory rate16 /minDO Peter Ahumada Work Phone: [address] [place], [place] 0101106-06-2024 14:20-0400 SaO2% (BldA) [Mass fraction]96 %DO Peter Ahumada Work Phone: [address] [place], [place] 0101106-06-2024 14:20-0400 Systolic blood sbkuqzzv464 mm[Hg]DO Peter Ahumada Work Phone: [phone]05-27-2024 07:31-0400 Body xxaaya895.88 cmDO Peter Ahumada Work Phone: [phone]05-27-2024 07:31-0400 Body kkndgalqnom90.7 [degF]DO Peter Ahumada Work Phone: 1([phone]05-27-2024 07:31-0400 Body ybzeit442.9 kgDO Peter Ahumada Work Phone: [phone] [place], [place] 7414605-27-2024 07:31-0400 Diastolic blood gxnuijkg07 mm[Hg]DO Peter Ahumada Work Phone: [phone])[address]05-27-2024 07:31-0400 Heart rate88 /minDO Peter Ahumada Work Phone: [address] [place], [place] 0101105-27-2024 07:31-0400 Respiratory rate20 /minDO Peter Shens Work Phone: 1([phone])527-[address] [place], [place] 7414605-27-2024 07:31-0400 SaO2% (BldA) [Mass fraction]97 %DO Peter Ahumada Work Phone: [phone] [place], [place] 7414605-27-2024 07:31-0400 Systolic blood gabzbvwx144 mm[Hg]DO Peter Ahumada Work Phone: [phone] [place], [place] 7414611-17-2023 10:30-0500 Body sodqfc089.88 cmPeter Ahumada Other [facility] Other 11-17-2023 10:30-0500Body mass index (BMI) [Ratio] 34.91 kg/s4Oypgt Kuns Other [facility] Other 11-17-2023 10:30-0500Body juorgq908.76 kgTerryluiza Ahumada Other [facility] Other 11-17-2023 10:30-0500Diastolic blood cyefxnrp88 mm[Hg] Peter Ahumada Other [facility] Other 11-17-2023 10:30-0500Respiratory rate16 /minBryluiza Ahumada Other [facility] Other 11-17-2023 10:30-7055HcA7% (BldA) [Mass fraction]98 % Peter Ahumada Other [facility] Other 11-17-2023 10:30-0500Systolic blood igyurmdx360 mm[Hg] Peter Blake Other [facility] Other 11-02-2023 15:00-0400Body ursxez341.88 cmTerryluiza Shenshira Other [facility] Other 11-02-2023 15:00-0400Body mass index (BMI) [Ratio] 35.12 kg/z0OlvrrPeter Ahumada Other [facility] Other 11-02-2023 15:00-0400Body zahitr965.48 kgPeter Ahumada Other [facility] Other 11-02-2023 15:00-0400Diastolic blood hpayjexv71 mm[Hg] Peter Shenshira Other [facility] Other 11-02-2023 15:00-0400Respiratory rate16 /minPeter Ahumada Other [facility] Other 11-02-2023 15:00-3000EcW6% (BldA) [Mass fraction]95 % Peter Ahumada Other [facility] Other 11-02-2023 15:00-0400Systolic blood dnqymsik621 mm[Hg] Peter Ahumada Other [facility] Other 08-30-2023 08:30-0400Body dmagly597.88 cmPeter Acshira Other [facility] Other 08-30-2023 08:30-0400Body mass index (BMI) [Ratio] 34.39 kg/a9NfabsPeter Ahumada Other [facility] Other 08-30-2023 08:30-0400Body vqzipl198.03 kgPeter Ahumada Other [facility] Other 08-30-2023 08:30-0400Diastolic blood mm[Hg] Peter Ahumada Other [facility] Other 08-30-2023 08:30-0400Respiratory rate16 /minPeter Ahumada Other [facility] Other 08-30-2023 08:30-1703LfN2% (BldA) [Mass fraction]95 % Peter [facility] Other 08-30-2023 08:30-0400Systolic blood yhkhrkrc071 mm[Hg] Peter Ahumada Other [facility] [employer] Other [phone] 13:49-0400Diastolic blood kjaxmybs15 mm[Hg] DO Peter Ahumada Work Phone: [facility]04-12-2023 13:49-0400 Systolic blood deetuwvi942 mm[Hg]DO Peter Ahumada Work Phone: [facility]04-12-2023 13:02-0400 Body qyajsymsflx28.6 [degF]DO Peter Ahumada Work Phone: [facility]04-12-2023 13:02-0400 Heart rate72 /HayleyO Peter Ahumada Work Phone: [facility]04-12-2023 13:02-0400 Respiratory rate18 /HayleyO Peter Ahumada Work Phone: [facility]04-12-2023 13:02-0400 SaO2% (BldA) [Mass fraction]96 %DO Peter Ahumada Work Phone: [facility]04-12-2023 08:58-0400 Body wehoud264.88 cmDO Peter Ahumada Work Phone: [facility]04-12-2023 08:58-0400 Body rgzpgi544.93 kgDO Peter Ahumada Work Phone: [facility]11-03-2022 17:00-0400 Body uihqdz616.88 cmPeter Ahumada Other [facility] [employer] Other [phone] 17:00-0400Body mass index (BMI) [Ratio] 33.63 kg/y6Jogis Blake Other [facility] Other 11-03-2022 17:00-0400Body cpverp144.49 kgTerryluiza Ahumada Other [facility] Other 11-03-2022 17:00-0400Diastolic blood kezhiguq74 mm[Hg] Peter Ahumada Other [facility] Other 11-03-2022 17:00-0400Respiratory rate16 /minBryluiza Ahumada Other [facility] Other 11-03-2022 17:00-5539KjN8% (BldA) [Mass fraction]Peter Ahumada Other [facility] Other 11-03-2022 17:00-0400Systolic blood mm[Hg] Peter Ahumada Other [facility] Other 10-03-2022 09:15-0400Body stpsea002.88 cmPeter Ahumada Other [facility] Other 10-03-2022 09:15-0400Body mass index (BMI) [Ratio]33.5 kg/w7ZbnmyPeter Ahumada Other [facility] Other 10-03-2022 09:15-0400Body hoabrr677.04 kgPeter Ahumada Other [facility] Other 10-03-2022 09:15-0400Diastolic blood pmbotvuq30 mm[Hg] Peter Ahumada Other [facility] Other 10-03-2022 09:15-0400Respiratory rate18 /minPeter Ahumada Other [facility] Other 10-03-2022 09:15-8836LgP1% (BldA) [Mass fraction]96 % Peter Ahumada Other [facility] Other 10-03-2022 09:15-0400Systolic blood piukouni572 mm[Hg] Peter Ahumada Other [facility] Other 04-13-2022 12:00-0400Body .88 cmPeter Ahumada Other [facility] Other 04-13-2022 12:00-0400Body mass index (BMI) [Ratio] 34.44 kg/f0NhhjmPeter Ahumada Other [facility] Other 04-13-2022 12:00-0400Body taatve528.21 kgPeter Ahumada Other [facility] Other 04-13-2022 12:00-0400Diastolic blood iqbtdstv62 mm[Hg] Peter Ahumada Other [facility] Other 04-13-2022 12:00-0400Respiratory rate16 /minTerryluiza Ahumada Other [facility] Other 04-13-2022 12:00-9904EfS1% (BldA) [Mass fraction]97 % Peter Acshira Other [facility] Other 04-13-2022 12:00-0400Systolic blood rmaxrhpa110 mm[Hg] Peter Ahumada Other [facility] Other 03-28-2022 09:15-0400Body .88 cmPeter Ahumada Other [facility] Other 03-28-2022 09:15-0400Body mass index (BMI) [Ratio]34.2 kg/h0HkaxrPeter Ahumada Other [facility] Other 03-28-2022 09:15-0400Body yvnpjj293.4 kgPeter Ahumada Other [facility] Other 03-28-2022 09:15-0400Diastolic blood yiwbjqcg22 mm[Hg] Peter Blake Other [facility] Other 03-28-2022 09:15-0400Respiratory rate18 /minPeter Ahumada Other [facility] Other 03-28-2022 09:15-8782ZmI2% (BldA) [Mass fraction]98 % Peter Ahumada Other [facility] Other 03-28-2022 09:15-0400Systolic blood dwongokf128 mm[Hg] Peter Ahumada Other [facility] Other 03-24-2022 13:28-0400Body rxunnv513.9 Shashank Daniel MD Work Phone: [facility]03-24-2022 13:28-0400Body temperature 97.7 [degF]Kate Daniel MD Work Phone: [facility]03-24-2022 13:28-0400Body dtdoar511.21 kgKate Daniel MD Work Phone: [facility]03-24-2022 13:28-0400Diastolic blood cvgljgpo37 mm[Hg]Kate Daniel MD Work Phone: [facility]03-24-2022 13:28-0400Heart rate68 /min Kate Daniel MD Work Phone: [facility]03-24-2022 13:28-3965KsY9% (BldA) [Mass fraction]97 %Kate Daniel MD Work Phone: [facility]03-24-2022 13:28-0400Systolic blood ubvtqarc553 mm[Hg]Kate Daniel MD Work Phone: [facility]09-29-2021 08:45-0400Body vctxho843.88 cmPeter Ahumada Other [facility] Other 09-29-2021 08:45-0400Body mass index (BMI) [Ratio] 31.87 kg/b8NcngmPeter Ahumada Other [facility] Other 09-29-2021 08:45-0400Body jvicic078.6 kgPeter Ahumada Other [facility] Other 09-29-2021 08:45-0400Diastolic blood cpzleoup06 mm[Hg] Peter Ahumada Other [facility] Other 09-29-2021 08:45-0400Respiratory rate18 /minPeter Ahumada Other [facility] Other 09-29-2021 08:45-5197TpZ6% (BldA) [Mass fraction]96 % Peter Ahumada Other [facility] Other [id number] 08:45-0400Systolic blood lxtfnwjy764 mm[Hg] Peter Ahumada Other [facility] Other Encounters Encounter DateEncounter TypeCare ProviderFacilityStart: 05-20-2025 End: 77-57-8910hmgfmkfinoIcgdd Kuns DO Work Phone: -[facility] CastaliaStart: 05-20-2025 End: 05-16-8933Wvigkry encounter procedurePeter Liz DO-[facility] Work Phone: Start: 05-15-2025 End: 54-67-3605Uvpxrxy encounter procedurePeter Liz DO-[facility] Work Phone: Start: 05-15-2025 End: 74-65-8984fwmetefzpyLscpi Kuns DO Work Phone: [facility]: 04-27-2025 End: 08-63-8689dmhzteksjwVeozjko Vytautas Giedraitis MDFacility:[facility] [place] Start: 03-16-2025 End: 33-77-1515jkigqctaqnCzpibhl Vytautas Giedraitis MDFacility:[facility] Start: 03-02-2025 End: 09-03-2180jgmatvumteTrquzgb Vytautas Giedraitis MDFacility:[facility] [place] Start: 01-27-2025 End: 58-28-3350Hchfkcs encounter procedurePeter Liz DO-[facility] Work Phone: Start: 01-27-2025 End: 11-38-2758jjonwffhojOwqvh Kuns DO Work Phone: [facility] Work Phone: Start: 01-26-2025 End: 05-11-1910ptodefprefIcczppv Vytautas Giedraitis MDFacility:PM [place] Start: 12-08-2024 End: 23-16-8485Hzqccff encounter procedurePeter Liz DO-[facility] Work Phone: Start: 12-08-2024 End: 88-82-3681ffcxnpwrhfXahqpno Vytautas Giedraitis MDFacility:[facility] [place] Start: 12-05-2024 End: 74-06-0622Cxxulaq encounter procedurePeter Liz DO-[facility] [place] Work Phone: Start: 12-05-2024 End: 28-77-1551xocypsclqcNduvl KunsFacility:[facility] Start: 10-13-2024 End: 96-58-9251Lzrvrc follow up visit related to original pxFredric H Itzkowitz DO Work Phone: noms ST GENSComment on above:Sebaceous cyst (Primary Dx)Start: 10-13-2024 End: 80-83-9953kdrmuenrpqNOLZINP H ITZKOWITZNot AvailableStart: 09-29-2024 End: 12-42-5020qwyqgdqgofYisen Kuns DO Work Phone: [facility] Work Phone: Start: 09-29-2024 End: 14-83-8421Fkibquys ReferredPeter Ahumada DO Work Phone: [facility] [place] Work Phone: Start: 09-22-2024 End: 67-07-2650ezahqnnzhaBmmxwgw Vytautas Giedraitis MDFacility:[facility] [place] Start: 09-10-2024 End: 57-57-6670Gxkcbz outpatient visit 15 minutesFredric H Itzkowitz DO Work Phone: noms ST GENSComment on above:Sebaceous cyst (Primary Dx)Start: 09-10-2024 End: 47-13-3998eulrcwaafaHFJOGEN H ALBAZKOWIAna AvailableStart: 09-09-2024 End: 01-03-0665sjdzkfupboPdaxe Kuns DO Work Phone: [facility] Work Phone: Start: 09-09-2024 End: 45-29-5288Mbcpsur encounter procedureBryluiza Ahumada DO Work Phone: [facility] Work Phone: Start: 09-01-2024 End: 81-78-5470uxiiogyzrgVqdqchr Vytautas Giedraitis MDFacility:[facility] [place] Start: 07-17-2024 End: 70-70-9883zhnazpsyemAkmdc D [facility] HospitalFacility:[facility] Hospitaltart: 07-17-2024 End: 86-96-7191Uwhxfqkssu RecurringPeter Ahumada DO Work Phone: [facility] [place] Work Phone: start: 06-23-2024 End: 85-51-0019cnyfyxtjbiKjaciwx Vytautas Giedraitis MDFacility:[facility] [place] Start: 06-10-2024 End: 00-88-2591mcpkhublhmOcjnp Acs DO Work Phone: [facility] Work Phone: Start: 06-10-2024 End: 41-78-8903Gvgdskl encounter procedurePeter Shens DO Work Phone: [facility] Work Phone: Start: 06-04-2024 End: 66-71-8886Odkodad encounter procedurePeter Shens DO Work Phone: [facility]-MRI [place] Work Phone: Start: 06-04-2024 End: 99-45-2996vbjobpvsiiSxaxv Acs DO Work Phone: [facility] Work Phone: Start: 05-22-2024 End: 59-03-2768Zlytwcj encounter procedureChristopher Jonathan DO Work Phone: noms NEUROLOGYComment on above:Lumbosacral radiculopathy (Primary Dx)Start: 05-22-2024 End: 83-66-3523bdygxcytwuCYSWZOFNDVM HASSETTNot AvailableStart: 05-22-2024 End: 02-42-1123Ozjcia flowsheetChristopher Jonathan DO Work Phone: noms NEUROLOGYStart: 05-22-2024 End: 64-96-8489Cyfvhk flowsheetChristopher Jonathan DO Work Phone: noms NEUROLOGYStart: 05-19-2024 End: 29-06-6900grzczuyqudRG Peter Ahumada Work Phone: [facility] Work Phone: Start: 05-19-2024 End: 43-87-9181Nljlhfiing RecurringDO Peter Ahumada Work Phone: [facility]-Physical Therapy [place] Work Phone: start: 03-12-2024 End: 78-97-1987jgfqznajkeAB Peter Ahumada Work Phone: [facility] Work Phone: Start: 03-12-2024 End: 72-09-3837Nimxvhf encounter procedureDO Peter Ahumada Work Phone: [facility]-Ultrasound [place] Work Phone: Start: 03-06-2024 End: 38-59-0535vpxlfnihrzJV Bryan Kuns Work Phone: [facility] Work Phone: Start: 03-06-2024 End: 75-69-1089Ivroifm encounter procedureDO Peter Ahumada Work Phone: [facility] [place] Work Phone: Start: 03-05-2024 End: 38-08-3219qekfnorubpJD Peter Shenshira Work Phone: [facility] Work Phone: Start: 03-05-2024 End: 87-60-0194Jpppgki encounter procedureDO Peter Shenshira Work Phone: [facility] [place] Work Phone: Start: 02-28-2024 End: 93-07-5828pytjyjhijvEYHHFQR H ITZKOWITZNot AvailableStart: 02-13-2024 End: 29-73-6253qxlfjsmhxrBX Peter Ahumada Work Phone: [facility] Work Phone: Start: 02-13-2024 End: 21-27-8153Dxgrdie encounter procedureDO Peter Shenshira Work Phone: [facility] Work Phone: Start: 02-13-2024 End: 50-91-1376rfhsyoimhzCI Peterluiza Ahumada Work Phone: [facility] Work Phone: Start: 02-13-2024 End: 14-95-0328Dnkgewh encounter procedureDO Peter Blake Work Phone: [facility] Start: 02-07-2024 End: 37-33-8108rtiaarwjyePDSTMNS H ITZKOWITZNot AvailableStart: 01-29-2024 End: 77-24-4925Nboagfzip to same day surgery centerDO Peter Ahumada Work Phone: [facility]Start: 01-29-2024 End: 69-22-9308ioxvurudjmUL Bryan Kuns Work Phone: [facility] Work Phone: Start: 01-15-2024 End: 08-73-3232nulkfpaixrOS Bryan Kuns Work Phone: [facility] Work Phone: Start: 01-15-2024 End: 13-00-9275Qqhhdpzz ReferredDO Peter Ahumada Work Phone: [facility] Ict-Lfp-Mbckyvdg Testing Work Phone: Start: 01-15-2024 End: 51-00-0317Hgujabg encounter procedureDO Peter Ahumada Work Phone: [facility] Xdt-Pqb-Vtlrzmwg Testing Work Phone: Start: 01-14-2024 End: 14-20-8873tljmrzkgowRB Bryan Kuns Work Phone: [facility] Work Phone: Start: 01-14-2024 End: 82-54-4893Ubqugqz encounter procedureDO Peter Ahumada Work Phone: [facility] Work Phone: Start: 01-14-2024 End: 96-22-5451uqnpxkpybyQN Bryan Kuns Work Phone: [facility] Work Phone: Start: 01-14-2024 End: 05-90-3327Cmfkdst encounter procedureDO Peter Ahumada Work Phone: [facility] Start: 01-03-2024 End: 74-83-4434aafyucvtwePYLWVOY Judd Dupont AvailableStart: 12-31-2023 End: 87-39-4053qxzynvuvglRZ Peter Ahumada Work Phone: [facility] Work Phone: Start: 12-31-2023 End: 19-65-2996Fljptah encounter procedureDO Peter Ahumada Work Phone: [facility] Work Phone: Start: 12-31-2023 End: 16-03-3216icjidwaavqEJ Peter Ahumada Work Phone: [facility] Work Phone: Start: 12-31-2023 End: 89-90-3912Cmbcdir encounter procedureDO Peter Ahumada Work Phone: [facility]-Ultrasound [place] Work Phone: Start: 12-31-2023 End: 21-61-9833gphgtfopymTT Peter Ahumada Work Phone: [facility] Work Phone: Start: 12-31-2023 End: 94-40-4415Mhpqipe encounter procedureDO Peter Ahumada Work Phone: [facility] [place] Work Phone: Start: 12-28-2023 End: 68-25-5886mjsotghwheVV Bryan Kuns Work Phone: [facility] Work Phone: Start: 12-28-2023 End: 59-82-4145Plubfjc encounter procedureDO Peter Ahumada Work Phone: [facility]-X[facility] [place] Work Phone: Start: 12-27-2023 End: 93-67-8965ahmilzsgczHB Bryan Kuns Work Phone: [facility] Work Phone: Start: 12-27-2023 End: 05-88-8013Lizygtg encounter procedureDO Peter Blake Work Phone: [facility] [place] Work Phone: Start: 64-55-3646Gmn-patient / Non-visitDO Peter Ahumada Work Phone: [facility] [place] Work Phone: Start: 12-17-2023 End: 96-29-9957Vmejzhaec department patient visitDO Peter Ahumada Work Phone: [facility]-Emergency Room Work Phone: Start: 12-12-2023 End: 85-59-7028txglfperscMJGGUIA H ITZKOWITZNot AvailableStart: 12-03-2023 End: 10-97-9370cfjiwxdqapJN Peter Acshira Work Phone: [facility] Work Phone: Start: 12-03-2023 End: 67-69-3042Nkhalco encounter procedureDO Peter Ahumada Work Phone: [facility] Work Phone: Start: 08-27-2023 End: 90-53-9704ldgeekzdzjQdnoz Kuns Other [place] [facility] Other Start: 53-39-3303Yipgaongr encounterPeter AhumadaFPG Family Medicine [place]Start: 08-22-2023 End: 59-50-4236iaxsqiymzzYF Peter Acshira Work Phone: [facility] Work Phone: Start: 08-22-2023 End: 78-87-7853Agemlek encounter procedureDO Peter Acshira Work Phone: [facility] [place] Work Phone: Start: 08-20-2023 End: 67-14-0571tnvumbjgsyGymub Kunshira Other [employer] Other Start: 24-36-3473Durbwakrw encounterBryluiza Golden [facility] [place]Start: 46-59-1419Fmgtbiayj encounterBryluiza Golden [facility] [place]Start: 08-13-2023 End: 56-61-0823ngghshericBD Peter Ahumada Work Phone: [employer] Other Start: 08-13-2023 End: 30-42-6997Bdchxfm encounter procedureDO Peter Ahumada Work Phone: [facility] Work Phone: Start: 08-06-2023 End: 07-93-8347gtxbfsnttaWzugx Kuns Other [employer] [facility] Other Start: 88-08-4620Qdphgehzx encounterPeter Golden [facility] [place]Start: 06-11-2023 End: 03-11-8191bvelegjlmlBdlgv Kuns Other [facility] A[facility] Other Start: 76-98-7716Ltqxlfdgu encounterBryluiza Golden [facility] [place]Start: 04-01-2047Zxjcpz outpatient visit 25 minutesBryluiza Golden [facility] [place]aliaStart: 06-08-2023 End: 92-11-5245jqslygtaolJR Bryan Kuns Work Phone: [facility] Work Phone: Start: 06-08-2023 End: 60-52-6569Cvfbbum encounter procedureDO Peter Ahumada Work Phone: [facility] Work Phone: Start: 06-08-2023 End: 14-30-9432Ptolhnm encounter procedureDO Peter Ahumada Work Phone: [facility] [place] Work Phone: Start: 05-25-2023 End: 39-98-1870Poraxjb encounter procedureDO Peter Ahumada Work Phone: [facility] Work Phone: Start: 05-24-2023 End: 17-04-9680oeaekydgimLyuab Kuns Other [employer] Other Start: 97-67-2313Vuyhle outpatient visit 25 minutes Peter Golden [facility] [place]Start: 05-24-2023 End: 57-62-1608Guomfui encounter procedureDO Peter Ahumada Work Phone: [facility] [place] Work Phone: Start: 03-21-2023 End: 33-03-5049proahqbzxvXcrgq Kuns Other [employer] Other Start: 69-74-1210Cyrmya outpatient visit 15 minutes Peter Golden [facility] [place]Start: 03-19-2023 End: 26-49-5683heganjtxgmXB Peter Ahumada Work Phone: [facility] Work Phone: Start: 03-19-2023 End: 35-26-4150Micbabf encounter procedureDO Peter Ahumada Work Phone: [facility] [place] Work Phone: Start: 01-15-2023 End: 57-00-2315lokdxgnrhqWY Peter Ahumada Work Phone: [facility] Work Phone: start: 01-15-2023 End: 80-49-6417Boncgcv encounter procedureDO Peter Ahumada Work Phone: [facility]-Ultrasound Cntr for Breast CarStart: 01-12-2023 End: 81-35-0649xdutwlbcjoTnpmt Kuns Other [employer] [facility] Other Start: 26-06-5004Sihaqvgyb encounterPeter Golden [facility] [place]Start: 11-23-2022 End: 14-09-7628Wxdxxgb encounter procedureDO Peter Ahumada Work Phone: [facility]-Ultras[facility] [place] Work Phone: Start: 11-01-2022 End: 84-54-0693Fzrpqpmrt department patient visitDO Peter Ahumada Work Phone: [facility]-Emergency Room Work Phone: Start: 10-31-2022 End: 33-24-1145yrbjdgrkqyIJ Peter Ahumada Work Phone: [facility] Work Phone: Start: 10-31-2022 End: 91-91-1310Dkpgtgy encounter procedureDO Peter Ahumada Work Phone: [facility] [place] Work Phone: Start: 05-25-2022 End: 14-46-7175Dwuoqxhd ReferredDO Peter Ahumada Work Phone: [facility]Start: 05-25-2022 End: 21-68-4405jqxcijnrucNK Peter Ahumada Work Phone: [place] [facility] Other Start: 53-56-3607Xsodda outpatient visit 15 minutes Peter Golden [facility] [place]Start: 04-24-2022 End: 00-80-0140inycitzlpcNxdjy Kuns Other [employer] Other Start: 84-83-2132Cbouhb outpatient visit 25 minutes Peter AchsiraVANESA [facility] [place]Start: 04-19-2022 End: 80-41-9425zbfkegvfhoFG Peter Ahumada Work Phone: [facility] Work Phone: Start: 04-19-2022 End: 92-80-4872Jfjeabs encounter procedureDO Peter Ahumada Work Phone: [facility]-Lab [place]Start: 11-15-2021 End: 13-24-5612itugpynhusEpgnf Kuns Other [employer] Other Start: 38-41-0651Ygyoomxxg encounterBryluiza Golden [facility] [place]Start: 11-02-2021 End: 59-41-4296axulbljqagGwmvz Kuns Other [employer] Other Start: 52-22-2350Aqsghl outpatient visit 15 minutes Peter Golden [facility] [place]Start: 10-17-2021 End: 00-02-2358hlvwuttymjXnjav Kuns Other [employer] Other Start: 77-14-7233Zdasil outpatient visit 25 minutes Peter ShenshiraVANESA [facility] [place]Start: 10-13-2021 End: 25-60-3471Xhkagez encounter Malcolm Daniel MD Work Phone: General SurgeryComment on above:Liver pain (Primary Dx)Start: 48-07-1567Cnezbd outpatient visit 25 minutesPeter Golden [facility] Medicine CastaliaStart: 02-22-2021 End: 96-90-4568cvntzsvtlgAM PETER AHUMADAFacility:F2Rydju: 11-30-2020 End: 11-06-9609Ctpkxtvwca hospital visit by physicianXr Olivia 1 Work Phone: RadiologyComment on above:Closed nondisplaced fracture of proximal phalanx of left little finger, initial encounter [F92.538G]Start: 11-18-2020 End: 02-68-8386Fpqhmtvhqm hospital visit by physicianXr Olivia 1 Work Phone: RadiologyComment on above:Closed nondisplaced fracture of proximal phalanx of left little finger, initial encounter [M32.839N] Procedures DateProcedureProcedure DetailPerforming ClinicianStart: 02-88-0567Gnhviopon mammography of bilateral breastsPeter Ahumada DO Work Phone: Start: 64-23-0376RP pre/post mri xrayPeter Ahumada DO Work Phone: Start: 59-09-2989CTR of left anklePeter Ahumada DO Work Phone: Start: 05-22-2024 End: 97-58-0917Llsikb emg ea extremty w/paraspinl area completeChristopher Jonathan DO Work Phone: Start: 39-42-6147ME scan of gallbladderDO Peter Ahumada Work Phone: Start: 88-57-6046Diuyv X-ray of right elbowDO Peter Ahumada Work Phone: Start: 39-58-2521Arytpu of umbilical herniaDO Peter Ahumada Work Phone: Start: 97-82-0486Nchxi X-ray of right elbowDO Peter Ahumada Work Phone: Start: 83-48-9759Xzxkkwcmcqofenq of abdomenDO Peter Ahumada Work Phone: Start: 15-58-4155Cdsiu X-ray of right elbowDO Peter Ahumada Work Phone: Start: 27-10-4412H-ray of right kneeDO Peter Ahumada Work Phone: Start: 25-25-2655Dfimy X-ray of right clavicleDO Peter Ahumada Work Phone: Start: 63-55-1689Kwycv X-ray of right forearmDO Peter Ahumada Work Phone: Start: 20-15-7040Ywwzw X-ray of right shoulderDO Peter Ahumada Work Phone: Start: 37-66-1531E-ray of left kneeDO Peter Ahumada Work Phone: Start: 61-05-4701Gtueoxbdk mammography of bilateral breastCathyO Peter Ahumada Work Phone: Start: 35-65-3169Fmrufzcpjnwpudk of left breastDO Peter Ahumada Work Phone: Start: 59-34-1552Jrtrw X-ray of left hipDO Peter Ahumada Work Phone: Start: 56-40-2014O-ray of lumbar spine, two or three viewsDO Peter Ahumada Work Phone: Start: 75-74-7105Anlgjfkyprcekbo of left breastDO Peter Ahumada Work Phone: Start: 79-48-0907Ilhqtflwy mammography of bilateral breastsDO Peter Ahumada Work Phone: Start: 24-57-6375Aenptn echographyDO Peter Ahumada Work Phone: Start: 99-91-4042Hwmdrowiahqk echographyDO Peter Ahumada Work Phone: Start: 35-19-0942Nowsrlhe tomography of abdomen and pelvis with contrastDO Peter Ahumada Work Phone: Start: 82-58-9558Qfbbt hand minimum 3 viewsVidanielas Sabino Yusuf DO Work Phone: Start: 51-47-1555Ipyrk hand minimum 3 viewsFridaallie Sabino Paramjit DO Work Phone: Plan of Treatment DateCare ActivityDetailAuthorStart: 77-05-5612Vynfh microalbumin profile DTaP,Tdap,Td Vaccine (2 - Td or Tdap)[facility]: 05-22-2024 End: 24-74-6167Epmdcqb encounter /31/2024 2:30 PM EDT Procedure Visit [facility] [address] [facility] [address] [place] [id number] Rahul Castillo, [address] [place] [address] ArrivedNOFLOWERS HOSPITAL NEUROLOGYComment on above:ArrivedStart: 74-00-4511Fagkt-19 Vaccine ( season)Covid-19 Vaccine ( season)[facility]: 88-59-5435Rotxegddk vaccinationInfluenza Vaccine (#1)[facility] [place] [facility] Centertart: 19-62-5435DzwooacasOhio Valley Surgical Hospitaltart: 32-81-4256Apyob X-ray of right elbowXR elbow RT 2VOhio Valley Surgical Hospitaltart: 81-44-3178SB Elbow - right 2 ViewsHighland District Hospital Start: 90-83-8680BhmggxadfOhio Valley Surgical Hospitaltart: 27-25-9154IfavgeansOhio Valley Surgical Hospitaltart: 41-94-4689Cufqo X-ray of right elbowXR elbow RT 2V [facility] Hospitaltart: 73-53-0715BG Elbow - right 2 Views [facility] Hospitaltart: 39-72-1547Jsipbar referralJ.W. [facility] Work Phone: Start: 03-93-8034Zqylwfhcs for malignant neoplasm of breastMammogram ScreeningMetroHealth [place] Heights Medical Centertart: 20-96-9820Irwbcwuig vaccination INFLUENZA (#1)[facility] [place] [facility] Centertart: 44-88-4470GIG TESTINGHPV TESTINGMet[facility]Health [facility] Medical Centertart: 94-17-0065QDN TESTINGPAP TESTINGMet[facility]Health [facility] Heights Medical Centertart: 2003 Screening for malignant neoplasm of cervixCervical Cancer ScreeningMetroHealth [facility] Heights Medical Centertart: 13-01-3270Jhpjzrkrh B Vaccine (1 of 3 - 19+ 3-dose series)Hepatitis B Vaccine (1 of 3 - 19+ 3-dose series)[facility] [place] [facility] Cent[facility]art: 11-86-8771Yxjti microalbumin profileDTAP,TDAP,TD (1 - Tdap)[facility] [place] [facility] Centertart: 2000 Anxiety ScreeningAnxiety ScreeningMetroHealth [facility] Heights Medical Centertart: 03-28-6934Yneiejwkej ScreeningDepression ScreeningMetroHealth [facility] Medical Centertart: 06-10-1448EALBUYGNO C SCREENINGHEPATITIS C SCREENINGMet[facility]Health [facility] Medical Centertart: 83-16-7416Qudkkbrsn C screeningHepatitis C ScreeningMetroHealth [facility] Heights Medical Centertart: 85-72-2942XON SCREENINGHIV SCREENINGMet[facility]Health [facility] Medical Centertart: 48-35-8702UIG screeningHIV ScreeningMetroHealth [facility] Heights Medical Centertart: 66-77-4492Ghjed depression screening assessmentDEPRESSION SCREENING [facility] Centertart: 00-32-1735FVXWH-19 VACCINE (1)COVID-19 VACCINE (1) [facility] HospitalComprehensive metabolic 1999 panel - Serum or PlasmaHighland District HospitalComprehensive metabolic 1999 panel - Serum or Plasma [facility] HospitalComprehensive metabolic 1999 panel - Serum or [facility] HospitalGlucose measurement estimated from glycated hemoglobinHighland District HospitalPatient EducationMount Carmel Health System Ctr Work Phone: Patient referralMount Carmel Health System Ctr Work Phone: RF Gastrointestinal tract upper Single view W air contrast POHighland District HospitalUS GallbladderHighland District HospitalXR Elbow - right GE 3 ViewsStarr Regional Medical Center Immunizations Immunization DateImmunizationNotesCare KwhmzifhOopvqtzw91-22-4357lpxbzih toxoid, reduced diphtheria toxoid, and acellular pertussis vaccine, adsorbedDO Peter Ahumada Work Phone: [facility]11-16-2022influenza, injectable, quadrivalent, preservative freePeter Ahumada Other [facility]09-18-2020influenza, seasonal, injectableBryan Acs Other [facility] Other [id number], seasonal, injectablePatient ObjectionPeter Shens Other [facility] Other [id number] toxoid, reduced diphtheria toxoid, and acellular pertussis vaccine, adsorbedPeter Ahumada Other [facility] HospitalNEGATED: Highlighted row has not occurred!53-87-7610gsmhanzar, seasonal, injectablePatient Objection Peter Ahumada Other [facility] Other NEGATED: Highlighted row has not occurred!04-09-2020 influenza, seasonal, injectableBryan Acs Other [employer] Other NEGATED: Highlighted row has not occurred!03-10-2019 influenza, seasonal, injectablePatient ObjectionPeter Shens Other [employer] Other Payers DatePayer CategoryPayerPolicy [id number]-[id number] [facility] [place] CARESOVETER[facility] [place] [id number] 07/23/2018-Present [phone] [address] [place] [address] [id number] MEDICAID ZZZCARESOPOST [facility] [place] [facility] [place] [id number] 07/23/2018-08/22/2022 [address] [place] [address] [id number] [facility] Member Subscriber Plan / Payer (Effective 2018-Present) Name: Darling Khanna Relation to Subscriber: Self Name: Alex Khannalilly Jackson Payer ID: Not on file Group ID: [id number] Type: Not on file Address: [address] [place] [id number] [id number] 2..1.140407.3.57[id number] 2..1.380526.3.57[id number] 2..1.204367.3.57[id number] 2..1.589645.3.57[id number] 2..1.410588.3.57[id number] 2..1.410908.3.57[id number] 2..1.516215.3.57[id number] 2..1.918551.3.57[id number] 2.0.1.295141.3.57[id number] 2..1.001565.3.57[id number] 2..1.064053.3.57[id number] 2..1.722759.3.57[id number] 2..1.901223.3.57[id number] 2..1.817550.3.57[id number] 2..1.513688.3.57[id number] 2..1.917280.3.57[id number] 8g81g2ou-p9gf-1997-79vm-[id number] 2..1.0[id number] 2..1.279414.3.579.2.531 [id number] 2..1.7[id number] 2..1.9[id number] 2.0.1.466067.3.579.2.531 [id number] 2.840.1.7[id number] 2.0.1.515188.3.579.2.531 Social History DateTypeDetailFacilityStart: 03-03-2021 End: 64-29-9534Nuwbvzj smoking status NHISEx-smokerLima Memorial Hospital Work Phone: End: 50-44-3267Gphpmge of tobacco useCurrent smokerLima Memorial Hospital Work Phone: Start: 03-03-2021 End: 30-62-1935Qsxzniq use and exposureSmokeless tobacco non-userLima Memorial Hospital Work Phone: Start: 10-99-3593Evdwldu intakeCurrent drinker of alcohol (finding)[facility] Centertart: 14-70-4504Ijopknj SDOH Alcohol Comment occMetroHealth [facility] Heights Medical Centertart: 07-39-7844Melmqie CommentSmoked 1 pack a week, quit in 2005, can't remember start dateMetroHealth Cleveland Heights Medical Centertart: 17-02-1149Brn [facility]igned At [facility]Not on [facility]: 06-30-2020 End: 88-43-8233Gcd Assigned At [facility] Other Start: 11-25-2015 End: 77-82-6318Igqzwam smoking status NHISNever smoked tobacco (finding) [facility] Hospitaltart: 21-06-2656Hoy [facility] At [facility]: 25-03-4192Hdxqpovlc beverage intakeNot AskedMetroHealth [facility] Medical Centertart: 06-30-2020 End: 21-55-2064Yycbfug of Social functionLima Memorial HospitalNational Score (1-100), lower number is lower riskNot on [facility] Springfieldtart: 10-19-2020 End: 32-67-7866Yakknshn to SARS-CoV-2 (event)Not sureLima Memorial Hospital End: 44-33-5419Qxttdkv of tobacco useCigarette SmokerNOMS HealthcareStart: 02-04-2024 End: 73-62-4258Crrasgvok beverage intakeEx-drinker (finding)[facility] Start: 06-81-1248Tcgjibe CommentQuit smoking 10 years agoNOMS HealthcareStart: 37-11-3385Gxjdfrf Commentcaffeine 1-2 cups/dayNOMS HealthcareStart: 01-18-2023 Gender identityIdentifies as female gender (finding)[facility] HealthcareStart: 55-11-2962Zavvcr orientationHeterosexual (finding)[facility] HealthcareStart: 06-05-2024 End: 93-11-1476AchZgzrop (finding)[facility] Medical Equipment Procedure CodeEquipment CodeEquipment Original TextEquipment IdentifierDates Repair, hernia, umbilicalMESH FLAT SHEET 7.6N86EKQTZCarfb: 71-02-6925Uxivdn, hernia, umbilicalMESH FLAT SHEET 7.5X60PNCDWBisds: 58-29-5263Ewtjgu, hernia, umbilicalMESH FLAT SHEET 7.1B02MYPHHLprfs: 37-11-7813Nasvpn, hernia, umbilical MESH FLAT SHEET 7.0C18XXWCLGlffh: 79-21-0297Xqjuow, hernia, umbilicalMESH FLAT SHEET 7.8R02MIGUXSuhxp: 88-64-8353Zgrhwd, hernia, umbilicalMESH FLAT SHEET 7.9J33SSFGOYrknc: 11-98-6880Jrvhxw, hernia, umbilicalMESH FLAT SHEET 7.1Q25EEUNP Start: 56-37-5249Hnrdev, hernia, umbilicalMESH FLAT SHEET 7.0Y59ZZLPXVujzr: 77-88-0538Zmpivf, hernia, umbilicalMESH FLAT SHEET 7.2K63DVELFIfhcm: 04-24-2017 Repair, hernia, umbilicalMESH FLAT SHEET 7.5M85WNZSBXojjb: 45-44-1965Ewhrrm, hernia, umbilicalMESH FLAT SHEET 7.5F87KBVQREcvab: 01-10-4878Ghrunb, hernia, umbilicalMESH FLAT SHEET 7.7Z48IRMPJFvkay: 49-75-9064Zbxyzq, hernia, umbilical MESH FLAT SHEET 7.2X86HRTTCIrnox: 27-40-1151Duwxnf, hernia, umbilicalMESH FLAT SHEET 7.6G04YDOUVXekpp: 86-20-9966Vnceca, hernia, umbilicalMESH FLAT SHEET 7.8T20TMUBKTfztc: 63-98-6428Noaqey, hernia, umbilicalMESH FLAT SHEET 7.7L24BAMYZ Start: 01-80-4678Ugsoxq, hernia, umbilicalMESH FLAT SHEET 7.8W98ZYLDQVeffo: 04-19-5386Rxwjjl, hernia, umbilicalMESH FLAT SHEET 7.6R35SZVBWHtitx: 04-24-2017 Repair, hernia, umbilicalMESH FLAT SHEET 7.9X65DLBXYHwdmz: 75-02-7560Vmruhz, hernia, umbilicalMESH FLAT SHEET 7.6U89XJBDKVipuh: 24-20-2315Vkdalg, hernia, umbilicalMESH FLAT SHEET 7.8Y68WPXHYUiqjv: 96-91-2481Npqqvw, hernia, umbilical MESH FLAT SHEET 7.7Z47MPOPZCuwsz: 94-80-5805Fzafzt, hernia, umbilicalMESH FLAT SHEET 7.5U77LIEVHSlqnc: 07-91-6242Aibcjv, hernia, umbilicalMESH FLAT SHEET 7.9H48VVQTAYoycx: 54-18-0487Qxbpir, hernia, umbilicalMESH FLAT SHEET 7.4Q94ZCAGT Start: 99-04-7868Vmhnlf, hernia, umbilicalMESH FLAT SHEET 7.8D76XCAOCQbbcr: 17-77-5216Axnmhv, hernia, umbilicalMESH FLAT SHEET 7.8V14UKQQTIeldn: 04-24-2017 Repair, hernia, umbilicalMESH FLAT SHEET 7.2F37WELLWDsjnm: 74-06-3163Vryvdx, hernia, umbilicalMESH FLAT SHEET 7.4C89LBLHGGgcqx: 55-50-5061Qqnmmx, hernia, umbilicalMESH FLAT SHEET 7.4W36FEDRCDvjco: 88-79-7581Pqabir, hernia, umbilical MESH FLAT SHEET 7.5R82WXAIMDjlpv: 20-66-4502Gxqxgt, hernia, umbilicalMESH FLAT SHEET 7.8Z30OYIEPKvlmt: 03-39-9404Gwzuaf, hernia, umbilicalMESH FLAT SHEET 7.5Z28WFCNAPficz: 04-24-2017 Goals DatePatient GoalDesired Activity/State Clinical Notes 11-04-2020 to 12-08-2024 Note Date & LhudDhegHttdhmlz40-48-7285 Evaluation note* Author Mercedes Ricketts [facility] HospitalAuthoredMay 2024 12:48pmSooner if needed, the ER if concerns,The above note written by Mercedes Ricketts LPN acting as human recorder, note dictated by Dr. Peter Ahumada [facility] Work Phone: 1(699) 302-860503-24-2025 History of Present illness Narrative* Alber Lara DO - 10/13/2024 1:15 PM EDT Images [...] cyst. I'll seeher PRN documented in this encounterEllis Fischel Cancer CenterNrfeidzbdg72-05-8611 History of Present illness Narrative* Alber Lara DO - 09/10/2024 3:30 PM EST Images [...] 90 mcg/act inhaler Every 4 hours HYDROcodone-acetaminophen ([place]) 5-325 MG tablet TAKE 1 TABLET BY [...] like to schedule it. documented in this [facility]02-18-2025 Evaluation note* Author Hyacinth Hutton [facility] 2024 3:43pmThe above note written by SIOMARA Abdi acting as human recorder, note dictated by Dr. Peter Ahumada. [facility] Work Phone: 1(491) 727-807410-31-2024 History of Present illness Narrative* CESAR Rich - 05/22/2024 2:30 PM EDT Images from the original note were not included. Reason for Appointment: EMG Patient: Dalring Khanna : 1980 EMG Computer: [employer] Referring Physician: Dr. Robert Martinez EMG: YAMILEX dry wall finisher: Cayetano Moreno RT(R) Office Location: [place] Reason for EMG: c/o low back pain into left hip, pain in right knee, pain in bilateral heels. No hxof DM. Not on blood thinners. Comments: Procedure was explained to the patient who expressed understanding. Patient appeared to have tolerated the test well despite some discomfort due to the nature of the test. documented in this [facility]08-15-2024 Evaluation note* Author Hyacinth Hutton [facility] 2023 2:47pmThe above note written by Polly STRINGER acting as human recorder, note dictated by Dr.Bryan Ahumada. [facility] Work Phone: 1(193) 318-407201-22-2024 Evaluation note* Encounter Date Diagnosis Assessment Notes Treatment Notes Treatment Clinical Notes Jul, Abnormal mammogram of left breas t (ICD-10 - R92.8) [facility] 01-15-2024 Evaluation note* Encounter Date Diagnosis Assessment Notes Treatment Notes Treatment Clinical Notes Jul, Abnormal mammogram (ICD-10 - R92 .8) [facility] 11-17-2023 Evaluation note* Encounter Date Diagnosis Assessment Notes Treatment Notes Treatment Clinical Notes May, Hypothyroidism (ICD-10 - E03.9) I have reviewed recent lab results with patient and her levels are normal. No changes warranted. Continue with current meds as ordered. Refill provided May,DD (degenerative disc disease), lumbosacral (ICD-10 - M51.37) I have reviewed recent imaging that does reveal L-S DDD and arthritis of the SI joints as well. I have educated patient that she needs to stretch before any type of activity. Increase her activity astolerated. I will refill the Tramadol and provide her with course of prednisone to have on hand. I have educated her on how to take and taper the dose. Voiced understanding May,Left hip pain (ICD-10 - M25.552) Patient continues to have left hip pain in spite of the tramadol and prednisone use. I will order xray to be done today and I will call her with that report May,Lower extremity edema (ICD-10 - R60.0) Electrolytes and renal function are normal. She may continue with current meds as needed May,Hyperlipidemia (ICD-10 - E78.5) I have reviewed all lab results with patient today. Her lipids are stable. Liver enzymes are normal. Blood count is good. Remainder of chemestries are within normal limits May,rediabetes (ICD-10 - R73.03) A1C is stable at 6.0 I have stressed importance of weight loss and diet modification. May,cute bronchitis (ICD-10 - J20.9) [facility] Other 11-02-2023 Evaluation note* Encounter Date Diagnosis Assessment Notes Treatment Notes Treatment Clinical Notes May, Left lumbar radiculopathy (ICD-1 0 - M54.16) Pt denies any pain with [...] work done. We will continue to monitor. May,cute bronchitis (ICD-10 - J20.9) Pt does still have some wheezing from her recent acute illness, though her cough has mostly resolved. A refill was provided for them today. I advised the steroids will help her breathing as well. Shewas also provided with antibiotics. We will continue to monitor. May,Ventral hernia (ICD-10 - K43.9) May,hange in bowel habits (ICD-10 - R19.4) I recommend pt try probiotics. May,Hypothyroidism (ICD-10 - E03.9) Labs ordered today. Pt is to continue the above medication. May,Hyperlipidemia (ICD-10 - E78.5) Labs ordered today. Encouraged to watch diet and increase exercise regimen; we will continue to monitor. May,Hyperglycemia (ICD-10 - R73.9) Labs ordered today. Encouraged to watch diet and increase exercise regimen; we will continue to monitor. [facility] 08-30-2023 Evaluation note* Encounter Date Diagnosis [...] in agreement with this plan of care. Feb,ERD (gastroesophageal reflux disease) (ICD-10 - K21.9) Acid reflux is well controlled with current medication regimen. Encouraged to work on weight loss and continue with diet modification. Refill provided Feb,Hx of fibrocystic disease of breast (ICD-10 - Z87.898) Patient is under the care of Dr. Lara for her breast care and encouraged to continue with follow up appointments as scheduled and continue with monthly SBE Feb,ug bite, initial encounter (ICD-10 - W57.XXXA) Patient has multiple mosquito bites on her legs and hands. Betamethasone valerate cream has been ordered to use for allergic reaction. [facility] 06-23-2023 Evaluation note* Encounter Date Diagnosis Assessment Notes Treatment Notes Treatment Clinical Notes Dec, Mass of upper outer quadrant of left breast (ICD-10 - N63.21) [facility] 11-03-2022 Evaluation note* Encounter Date Diagnosis Assessment Notes Treatment Notes Treatment Clinical Notes May, Neoplasm of uncertain behavior o f skin (ICD-10 - D48.5) Patient does have multiple suspicious lesions that have changed in size and shape and are red and inflamed. One 1.5cm lesion excised from the upper left posterior arm, and two other lesions 2.1 cm insize removed via shave from both the midline chest and left scapula. She tolerated the procedure well. All lesions were sent to the lab to determine pathology. [facility] 10-03-2022 Evaluation note* Encounter Date Diagnosis Assessment Notes Treatment Notes Treatment Clinical Notes Apr, Hypothyroidism (ICD-10 - E03.9) Blood work results reviewed with the patient. Metabolic ,kidney functions ,liver enzmes and cholesterol levels are within normal range. TSH and Free 4 are in balance. Pt is to continue with the abovemedication and we will continue to monitor. Apr,GERD (gastroesophageal reflux disease) (ICD-10 - K21.9) GERD is well controlled on the above medication. Pt is to continue with the above medication and wewill continue to monitor. Apr,Heavy menses (ICD-10 - N92.0) RBC is within normal range with no signs of anemia upon review of blood work results. Pt is to continue with the above medication and we will continue to monitor. Apr,ermatofibroma (ICD-10 - D23.9) Bilateral lower extremity lesions removed in the office on 11/02/21 are noted to be dermatofibroma upon review of pathology report. Apr,eborrheic keratoses (ICD-10 - L82.1) Pathology report reviewed noting the lesion of the left scalp excised in the office 11/02/21 was a seborrheic keratoses. Apr,Neoplasm of uncertain behavior of skin (ICD-10 - D48.5) The patient complains of a lesion midline chest that she states started out a freckle that with sunexposure has become larger and raised measuring 2.1 cm . Discussion was had this appears to likely be low risk for skin cancer but I do recommend she have the lesion removed due to the size by shave biopsy . The patient also has a second lesion on the upper left posterior extremity measuring 1.5 cmthat appears to be an inclusion cyst that I will remove by excisional biopsy. Apr,Hyperlipidemia (ICD-10 - E78.5) [facility] 04-13-2022 Evaluation note* Encounter Date Diagnosis Assessment Notes Treatment Notes Treatment Clinical Notes Oct, Neoplasm of uncertain behavior o f skin (ICD-10 - D48.5) The patient does have three lesions located on her left lateral calf, right upper thigh, and left vertex region of the scalp that are red, inflammed, and are abnormally shaped that were removed via shave and sent for pathology. [facility] 03-28-2022 Evaluation note* Encounter Date Diagnosis Assessment Notes Treatment Notes Treatment Clinical Notes Sep, Hypothyroidism (ICD-10 - E03.9) Patient does complain of fatigue and weight gain. Patient is to continue on the above medication. Labs ordered to be drawn. Sep,GERD (gastroesophageal reflux disease) (ICD-10 - K21.9) Sep,hest pain (ICD-10 - R07.9) In house EKG performed and reviewed with normal results. Patient admits to intermittent chest pain with palpitations. Patient states that this past week was more frequent. Denies any exercise or activity, mostly when eating. Patient is to stay cognitive of symptoms, to call if worsens. Sep,Neoplasm of uncertain behavior (ICD-10 - D48.9) Patient complains of [...] on the right thigh which measures around 1.ocm. These both appear to be hard, pimple like. Sep,Liver lesion (ICD-10 - K76.9) Patient is to continue to follow with specialist. Sep,Fatigue (ICD-10 - R53.83) Labs ordered to rule out any abnormality Sep,Hyperlipidemia (ICD-10 - E78.5) Sep,kin tag (ICD-10 - L91.8) Patient has 2 small skin tags located next to the left eye. One under the right eye. These will be removed with hyfrecator. [facility] 03-24-2022 NoteHNO ID: [id number] Author: Kate Daniel MD Service: ? Author Type: Physician Type: Progress Notes Filed: 10/17/2021 1:50 PM Note Text: Assessment ESTABLISHED PATIENT Darling Khanna is a 40 year old female with a right posterior liver subcapsular fluid collection ? 03/03/2021: Patient presented to [facility] on 02/08/2021 for 2 days for acute ride sided abdominal/flank pain, right shoulder discomfort and nausea. She was diagnosed with Klebsiella pneumoniae UTI and was discharged with oral keflex and zofran. Patient represented to ER on 02/09/2021 for the continued complaints of pain. ? Referral From:?PCP- Peter Ahumada, DO Reason:?right abdominal pain pain; liver?fluid collection? ? Received Records From:? 02/08/2021 ER Report [facility] 02/09/2021 ER Report [facility] 02/15/2021 PCP Office note ? Visited [...] gradually improving. US of ovaries yesterday at [facility]. Scheduled for upper GI at end of month. Gained?50 pounds since July?(was in [place] for 3 months, drank a lot); diagnosed [...] well. She did spend 3 months in [place] and did not have any issues, hospitalizations [...] which included preparing to see the patient, ykza-vi-kuyi patient care and completing clinical documentation. Kate Daniel [facility]03-24-2022 Nurse Note* Jayne Aguila Ma - 10/13/2021 1:32 PM EDT What is the reason for your visit today? Follow up Who is your referring physician? Are you having poor oral intake? NO Have you had unintentional weight loss of 15 lbs/7 Kg in the last 3-6 months? NO Bowels: regular Wound: Temperature: No Drains: No documented in this encounterL[facility]03-24-2022 History of Present illness Narrative* Kate Daniel MD - 10/13/2021 1:30 PM EDT Assessment ESTABLISHED PATIENT Darling Khanna is a 40 year old female with a right posterior liver subcapsular fluid collection 03/03/2021: Patient presented to [facility] on 02/08/2021 for 2 days for [...] collection Received Records From: 02/08/2021 ER Report [facility] 02/09/2021 ER Report [facility] 02/15/2021 PCP Office note Visited ER [...] gradually improving. US of ovaries yesterday at [facility]. Scheduled for upper GI at end of month. Gained 50 pounds since July (was in [place] for 3 months, drank a lot); diagnosed [...] well. She did spend 3 months in [place] and did not have any issues, hospitalizations [...] which included preparing to see the patient, worh-iz-cibv patient care and completing clinical documentation. Kate Daniel MD documented in this encounterLima [facility] Hospital09-29-2021 Evaluation note* Encounter Date Diagnosis Assessment Notes Treatment Notes Treatment Clinical Notes Mar, Liver lesion (ICD-10 - K76.9) Encouraged patient to follow with Dr. Daniel as scheduled. She states he advised her that her pain would likely take longer to resolve. She admits she stopped drinking alcohol and has been dieting.Encouraged her to take it easy to allow this to heal. Mar,rm pain, left (ICD-10 - M79.602) Patient reports that her pain has resolved after using the pennsaid but states her pain returned after shooting guns this past sunday. If her pain persists, we will consider imaging. We will continueto monitor. Mar,GERD (gastroesophageal reflux disease) (ICD-10 - K21.9) Refill provided. Mar,MI 31.0-31.9,adult (ICD-10 - Z68.31) Patient presents today with a 9lb weight loss since starting a dieting plan called [employer]. Encouraged her to continue monitoring her diet as she voices a goal of getting under 200lbs. We will continue to monitor. [facility] Other 09-16-2021 NoteHNO ID: [id number] Author: Kate Daniel MD Service: ? Author Type: Physician Type: Progress Notes Filed: 04/11/2021 3:19 PM Note Text: Assessment ESTABLISHED PATIENT Darling Khanna is a 40 year old female with a right posterior liver subcapsular fluid collection 03/03/2021: Patient presented to [facility] on 02/08/2021 for 2 days for acute ride sided abdominal/flank pain, right shoulder discomfort and nausea. She was diagnosed with Klebsiella pneumoniae UTI and was discharged with oral keflex and zofran. Patient represented to ER on 02/09/2021 for the continued complaints of pain. ? Referral From:?PCP- Peter Ahumada, DO Reason:?right abdominal pain pain; liver?fluid collection? ? Received Records From:? 02/08/2021 ER Report [facility] 02/09/2021 ER Report [facility] 02/15/2021 PCP Office note ? Visited [...] gradually improving. US of ovaries yesterday at [facility]. Scheduled for upper GI at end of month. Gained 50 pounds since July (was in [place] for 3 months, drank a lot); diagnosed [...] which included preparing to see the patient, uesq-vg-omjr patient care and completing clinical documentation. Kate Daniel [facility]09-01-2021 NoteHNO ID: [id number] Author: William De León MD Service: ? [...] findings to suggest etiology Pre-conference plan (from [facility]): - Observation and serial imaging Imaging Review: - January 2021 - CT Abd/Pelvis and MRI Final Consensus Recommendation(s): - No clear etiology of right posterior subcapsular fluid collection - Fluid consistency is not consistent with a hematoma - No underlying masses or intrinsic liver pathology Final recommendation(s) differ from pre-conference plan? (Y/N) - No William De León MD [facility] Surgical [facility]2021 NoteHNO ID: [id number] Author: Kate Daniel MD Service: ? Author [...] 40 year old female Patient presented to [facility] on 02/08/2021 for 2 days for [...] ? Received Records From: 02/08/2021 ER Report [facility] 02/09/2021 ER Report [facility] 02/15/2021 PCP Office note Visited ER [...] gradually improving. US of ovaries yesterday at [facility]. Scheduled for upper GI at end of month. Gained 50 pounds since July (was in [place] for 3 months, drank a lot); diagnosed [...] think it was malignant. Seen by Dr. Lara on [facility], in [facility]; denies chemotherapy or radiation. Hernia repair [...] rhythm. Abdomen: Abdomen so (more content not included)...[facility] 12-28-2020 NoteHNO ID: [id number] Author: Tracey Hair Ma Service: ? Author Type: ? Type: Progress Notes Filed: 12/28/2020 4:25 PM Note Text: Dispensed XL/XXL Reaction brace for the Right knee. Dispensed by [employer]. Instructions were given on application/adjustments. She will f/u as scheduled/prn. Tracey Hair MA,[facility] 12-28-2020 NoteHNO ID: [id number] Author: Ishan Yusuf, DO Service: ? Author [...] PT if not improving Procedures Ishan Yusuf, [facility]05-11-2021 NoteHNO ID: [id number] Author: Ishan Yusuf, DO Service: ? Author [...] results and radiologist's interpretation, available in the [facility] health record. Images were reviewed [...] Follow-up in 3-4 weeks Procedures Ishan Yusuf, [facility]05-11-2021 NoteHNO ID: [id number] Author: RT Suzanna(R) Service: ? Author Type: Work Checker Type: Progress Notes Filed: 11/30/2020 3:44 PM [...] IV DATA: Not applicable SIGNED BY: RT Suzanna(Esteban) November 30, 2020 3:43 [facility]04-29-2021 NoteHNO ID: [id number] Author: RT Victor M(R) Service: ? Author Type: Work Checker Type: Progress Notes Filed: 11/18/2020 3:47 PM [...] Victor M(R) November 18, 2020 3:45 [facility]04-29-2021 NoteHNO ID: [id number] Author: Ishan Yusuf, DO Service: ? Author [...] results and radiologist's interpretation, available in the [facility] health record. Images were reviewed with the patient/family members in the office today. My personal interpretation of the performed imaging is intra-articular proximal phalanx fracture CLINICAL IMPRESSION / ASSESSMENT: (C47.179B) Closed nondisplaced fracture of proximal phalanx of left little finger, initial encounter (primary encounter diagnosis) PLAN: Placed her in aluminum splint Will discuss case with Dr. [place] due to some progression of depression Follow-up accordingly Procedures Ishan Yusuf, [facility]04-15-2021 NoteHNO ID: [id number] Author: Bob Millan Service: ? Author Type: Physician Type: Progress Notes Filed: 11/04/2020 2:12 PM Note Text: [facility] Office Visit Documentation Note [facility] [place] REASON FOR VISIT / CHIEF COMPLAINT SERVICE [...] results and radiologist's interpretation, available in the [facility] health record. Images were reviewed with the patient/family members in the office today. My personal interpretation of the performed imaging is Has IA prox phalanx fracture at PIP ASSESSMENT / PLAN CLINICAL IMPRESSION / ASSESSMENT: (E29.931B) Closed nondisplaced fracture of proximal phalanx of [...] plan as detailed above. Bob Millan D.O. [facility] [place] Team Physician, [facility] Consulting Physician, [place] [employer] [place], Twister Operator [phone] Patient verbalizes understanding and agrees with the treatment plan as detailed above.[facility]* Diagnosis Liver pain- Primary Abdominal pain, other specified site documented in this encounter [facility] noteNo InformationNortUBIKOD Other Evaluation noteNo assessment information available [facility] Work Phone: Evaluation note* Diagnosis Onset Date Resolution Status Ground-level fall acuteLaceration of knee, leftacuteRight elbow painacute [facility] Work Phone: Evaluation note* Diagnosis Onset Date Resolution Status Ground-level fall acuteLaceration of knee, leftacuteRight elbow painacuteElbow fracture, right acuteHypothyroidismacuteLaceration of knee, leftacute [facility] Work Phone: Evaluation note* Diagnosis Onset Date Resolution Status Ground-level fall acuteLaceration of knee, leftacuteRight elbow painacuteElbow fracture, right acuteHypothyroidismacuteLaceration of knee, leftacuteFracture of radial neck, right, closedacute [facility] Work Phone: Evaluation note* Diagnosis Onset Date Resolution Status Ground-level fall acuteLaceration of knee, leftacuteRight elbow painacuteElbow fracture, right acuteHypothyroidismacuteLaceration of knee, leftacuteFracture of radial neck, right, closedacuteFracture of radial neck, right, closedacute [facility] Work Phone: Evaluation note* Diagnosis Onset Date Resolution Status Ground-level fall acuteLaceration of knee, leftacuteRight elbow painacuteElbow fracture, right acuteHypothyroidismacuteLaceration of knee, leftacuteFracture of radial neck, right, closedacuteFracture of radial neck, right, closedacuteFracture of radial neck, right, closedacute [facility] Work Phone: Evaluation note* Author Hyacinth Hutton [facility] HospitalAuthoredAugust 2023 2:47pmThe above note written by Polly STRINGER acting as human recorder, note dictated by Dr.Bryan Ahumada. [facility] Work Phone: Evaluation note* Diagnosis Closed nondisplaced fracture of proximal phalanx of left little finger, initial encounter documented in this encounter [facility]* Diagnosis Lumbosacral radiculopathy- Primary Thoracic or lumbosacral neuritis or radiculitis, unspecified documented in this encounter [facility] HealthcareEvaluation note* Diagnosis Onset Date Resolution Status Admit Date Bilateral foot pain acuteNovember 2023 2:36pmFatty liveracuteNovember 2023 2:36pmGERD (gastroesophageal reflux disease)acuteNovember 2023 2:36pmHypothyroidism acuteNovember 2023 2:36pmPre-diabetesacuteNovember 2023 2:36pm [facility] Work Phone: Evaluation note* Author Hyacinth Hutton [facility] HospitalAuthoredFebruary 2024 2:43pmThe above note written by SIOMARA Abdi acting as human recorder, note dictated by Dr. Peter Ahumada. [facility] Work Phone: Evaluation note* Diagnosis Sebaceous cyst- Primary documented in this encounter [facility] HealthcareEvaluation note* Diagnosis Sebaceous cyst- Primary documented in this encounter [facility] HealthcareEvaluation note* Diagnosis Onset Date Resolution Status Admit Date Bilateral foot pain acuteOctober 2024 7:54amHypothyroidismacuteOctober 2024 7:54am [facility] Work Phone: History general Narrative - Reported* Type Description Date Medical History asthma Medical HistoryHPVMedical Historyf/u with Health Dept for [facility] [employer] needsMedical HistoryInclusion cystSurgical Historyjaw surgery for underbiteSurgical History breast [id number] Historysee surgical hx [facility] Other Hospital Discharge instructions Additional Instructions [place] diet as tolerated Increase oral fluids Take the diclofenac twice a day as needed for pain and inflammation Take oxycodone every 6 hours for severe pain Follow-up with your family doctor for recheck I also gave you the number for gastroenterology Return to the ER for more severe pain high fever vomiting or any other concerns [facility] Work Phone: Hospital Discharge instructions Additional Instructions [facility] Work Phone[facility] Discharge instructions Additional Instructions DISCHARGE INSTRUCTIONS FOR GENERAL SURGERY YOUR ACTIVITY MAY INCLUDE: -Going up and down stairs slowly. -Walking around the house or outside if the weather is satisfactory. -No driving until you are seen in office and cleared for driving. -Light housework permitted in 3 weeks. -Heavy lifting permitted when cleared by Dr. Lara WOUND CARE/INCISION CARE: The sutures are underneath [...] for pain unless a prescription was provided.[facility] Work Phone: Hospital Discharge instructionsAmbulatory Orders* Referral to Podiatry Location: None Selected [facility] Work Phone: Rerpyg for referral (narrative)No reason for referral information availableWestern Reserve Hospital Medical [facility] Work Phone: Regvpm for visit Narrative* Other Medical (Routine) - ClosedSpecialtyDiagnoses / ProceduresReferred By ContactReferred To Contact Neurology Diagnoses Sciatica, left side Procedures IA NEEDLE EMG EA EXTREMTY W/PARASPINL AREA COMPLETE IA NERVE CONDUCTION STUDIES 9-10 STUDIES Robert Martinez MD [address] [place] [address] Phone: tel: fax: Shakeel Rios MD [address] [place] [address] Phone: tel: fax: Referral IDStatusReasonStart DateExpiration DateVisits RequestedVisits [id number] Perform Procedure / [facility] Healthcare Summary Purpose Family History Relationship Condition Age at Onset Recorded Date/T sarah family member Family history of other condition Unknow n Not SpecifiedMalignant neoplasmUnknownFamily history of other conditionUnknown Relationship Condition Age at Onset Recorded Date/T [...] Screening fall Amb Documentation remove sutures per bpkReason for VisitGround-level fall Laceration of knee, left Right elbow pain Chief Complaint Screening fall Amb Documentation remove sutures per bpk w19.xxxa m25.561/m25.521Reason for VisitGround-level fall Laceration of knee, left Right elbow pain Chief Complaint Screening fall Amb Documentation remove sutures per bpk w19.xxxa m25.561/m25.[address] Rouse for VisitGround-level fall Laceration of knee, left Right elbow pain Elbow fracture, right Hypothyroidism Laceration of knee, left Chief Complaint Screening fall Amb Documentation remove sutures per bpk w19.xxxa m25.561/m25.[address] Ahumada R10.[address] Rouse for VisitGround-level fall Laceration of knee, left Right elbow pain Elbow fracture, right Hypothyroidism Laceration of knee, left Fracture of radial neck, right, closed Chief Complaint Screening fall Amb Documentation remove sutures per bpk w19.xxxa m25.561/m25.[address] Ahumada R10.[address] AHUMADA S52.131A - Displaced fracture of neck of right rad 2 WEEKSReason for VisitGround-level fall Laceration of knee, left Right elbow pain Elbow fracture, right Hypothyroidism Laceration of knee, left Fracture of radial neck, right, closed Fracture of radial neck, right, closed Chief Complaint Screening fall Amb Documentation remove sutures per bpk w19.xxxa m25.561/m25.[address] Ahumada R10.[address] AHUMADA S52.131A - Displaced fracture of neck of right rad 2 WEEKS Recurrent Umbilical HerniaReason for VisitGround-level fall Laceration of knee, left Right elbow pain Elbow fracture, right Hypothyroidism Laceration of knee, left Fracture of radial neck, right, closed Fracture of radial neck, right, closed Chief Complaint Screening fall Amb Documentation remove sutures per bpk w19.xxxa m25.561/m25.[address] Auhmada R10.[address] AHUMADA S52.131A - Displaced fracture of neck of right rad 2 WEEKS Recurrent Umbilical Hernia Recurrent Umbilical HerniaReason for VisitGround-level fall Laceration of knee, left Right elbow [...] fracture of neck of right rad 4 WEEKSReason for VisitGround-level fall Laceration of knee, left Right elbow [...] of right rad 4 WEEKS E03.9 E78.5 R73.9Reason for VisitGround-level fall Laceration of knee, left Right elbow [...] rad 4 WEEKS E03.9 E78.5 R73.9 review labReason for VisitGround-level fall Laceration of knee, left Right elbow [...] WEEKS E03.9 E78.5 R73.9 review lab K21.9 R19.7Reason for VisitGround-level fall Laceration of knee, left Right elbow pain Elbow fracture, right Hypothyroidism Laceration of knee, left Fracture of radial neck, right, closed Fracture of radial neck, right, closed Fracture of radial neck, right, closed GERD (gastroesophageal reflux disease) Hyperlipidemia Hypothyroidism Pre-diabetes Diarrhea Chief Complaint E03.9 E78.5 R73.9 review lab K21.9 R19.7 R foot painReason for VisitGERD (gastroesophageal reflux disease) Hyperlipidemia Hypothyroidism Pre-diabetes Diarrhea [...] Screening for breast cancer December 08 12:26pm Chief Complaint Admit Date [id number] May 15, 2025 8 :06am Chief Complaint Admit Date [id number] May 15, 2025 8 :06am 5 month f/u May 20, 2025 7 :54am Reason for Visit Admit Date Bilateral foot pain May 20, 2025 7 :54am Hypothyroidism May 20, 2025 7 :54am Additional Source Comments INFORMATION SOURCE (unrecogn ized section and content) DATE CREATED AUTHOR 02/25/2021 [facility] DATE CREATED AUTHOR AUTHOR'S ORGANIZ ATION 10/18/2021 [facility] DATE CREATED AUTHOR AUTHOR'S ORGANIZ ATION 10/14/2024 [facility] DATE CREATED AUTHOR AUTHOR'S ORGANIZ ATION 05/02/2025 [facility] DATE CREATED AUTHOR AUTHOR'S ORGANIZ ATION 05/17/2025 [facility] Source Comments (unrecognize d section and content) In the event this informatio n is protected by the Federal Confidentiality of Alcohol and Drug Abuse Patient Records regulations: The Federal rules restrict any use of the information to criminally investigate or prosecute any alcohol or drug abuse patient.[facility] HospitalIn the event this information is protected by the Federal Confidentiality of Alcohol and Drug Abuse Patient Records regulations: The Federal rules restrict any use of the information to criminally investigate or prosecute any alcohol or drug abuse patient.[facility] HospitalIn the event this information is protected by the Federal Confidentiality of Alcohol and Drug Abuse Patient Records regulations: The Federal rules restrict any use of the information to criminally investigate or prosecute any alcohol or drug abuse patient.[facility] Reason for Visit (unrecogniz ed section and content) ReasonCommentsEstablished PatientReasonCommentsRight subclavicular shoulder mass Lump under collar bone. It is soft, and does not hurt.RplxgnNzulldev2to pow Exc. Rt. chest cyst Care Teams (unrecognized sec tion and content) Team Status: Active Member Role Status Dates Peter Ahumada DO Primary Care Provider Active Team Status: Inactive Member Role Status Dates Peter Ahumada DO Primary Care Provider, Attending Provi dani Active Team MemberRelationshipSpecialtyStart DateEnd Date Peter Ahumada DO [address] [place] [phone] PCP - GeneralFamily Practice11/22/15 Team Status: Inactive Member Role Status Katarina Ahumada DO Primary Care Provider Active BAYLEE Jimenez-BCEmergency ProviderActive Team Status: Inactive Member Role Status Katarina Ahumada DO Primary Care Provider Active Koki Elkins ([facility]) , APRNAttending ProviderActive Team Status: Inactive Member Role Status Katarina Ahumada DO Attending Provider Active Start: May [...] Status: Inactive Member Role Status Katarina Ahumada , DO Primary Care Provide r, [...] Active Start: December 03, 2023 End: December 02eferral SelfAttending ProviderActiveStart: December 03, 2023 End: December 03, 2023 Team Status: Inactive Member Role Status Dates Peter Ahumada DO Primary Care Provider Active Sta rt: December 17, 2023 End: December 17, 2023Joanne Vega ProviderActiveStart: December 17, 2023 End: December 17, 2023 Team Status: Active Member Role Status Dates Peter Ahumada DO Primary Care Provider Active Sta rt: December 19, 2023 Alfonzo Akhtar ProviderActiveStart: December 19, 2023 Team Status: Inactive Member [...] Active Sta rt: December 31, 2023 Alber Lara , DOAttending ProviderActiveStart: December 31, 2023 Team Status: Inactive Member Role Status Dates Peter Ahumada DO Primary Care Provider Active Sta rt: December 31, 2023 End: December 31, 2023Chas Meza , DOAttending ProviderActiveStart: December 31, 2023 End: December 31, 2023 Team Status: Inactive Member Role Status Dates Peter Ahumada DO Primary Care Provider Active Sta rt: December 31, 2023 End: December 31, 2023Alber Lara DOAttending ProviderActiveStart: December 31, 2023 End: December 31, 2023 Team Status: Active Member Role Status Dates Peter Ahumada DO Primary Care Provider Active Sta rt: January 14, 2024 Maribell Jettending ProviderActiveStart: January 14, 2024 Team Status: Inactive Member Role Status Dates Peter Ahumada DO Primary Care Provider Active Sta rt: January 14, 2024 End: January 14, 2024Jukenny Meza DOAttending ProviderActiveStart: January 14, 2024 End: January 14, 2024 Team Status: Inactive Member Role Status Dates Peter Ahumada DO Primary Care Provider Active Sta rt: January 15, 2024 End: January 15, 2024Frmaria r Lara DOAttending ProviderActiveStart: January 15, 2024 End: January 15, 2024 Team Status: Inactive Member Role Status Dates Peter Ahumada DO Primary Care Provider Active Sta rt: January 29, 2024 End: January 29, 2024Frmaria r Lara DOAttending ProviderActiveStart: January 29, 2024 End: January 29, 2024 Team Status: Active Member Role Status Dates Peter Ahumada DO Primary Care Provider Active Sta rt: February 13, 2024 Yeimy Jett ProviderActiveStart: February 13, 2024 Team Status: Inactive Member Role Status Dates Peter Ahumada DO Primary Care Provider Active Sta rt: February 13, 2024 End: February 13, 2024Jukenny Meza DOAttending ProviderActiveStart: February 13, 2024 End: February 13, 2024 [...] Start: March 12, 2024 End: March 12, 2024Team MemberRelationshipSpecialtyStart DateEnd Date Peter Ahumada DO [address] [place] [address] PCP [facility]11/22/15 Team Status: Inactive Member Role Status Dates Peter Ahumada DO Primary Care Provider Active Sta rt: May 19, 2024 End: May 19PIGN FrankM MSAttending ProviderActiveStart: May 19, 2024 End: May 19, 2024Team MemberRelationshipSpecialtyStart DateEnd Date Peter Ahumada MD [address] [place] [phone] PCP [facility]01/25/23Team MemberRelationshipSpecialtyStart DateEnd Date Peter Ahumada MD [address] [place] [phone] PCP [facility]01/25/23 Team Status: Inactive Member Role Status Dates Peter Ahumada DO Primary Care Provider Active Sta rt: June 04, 2024 End: June 04daya Martinez DPM MSAttending ProviderActive Start: June 04, 2024 End: June 04, 2024 Team Status: Inactive Member Role Status Dates Peter Ahumada DO Primary Care Provide r, Attending Provider Active Start: June 10, 2024 End: June 10, 2024 Team Status: Inactive Member Role Status Dates Peter Ahumada DO Primary Care Provider Active Sta rt: July 17, 2024 End: July 17PING FrankM MSAttending ProviderActive Start: July 17, 2024 End: July 17, 2024 Team Status: Inactive Member Role Status Katarina Ahumada DO Primary Care Provide r, Attending Provider Active Start: September 09, 2024 End: September 09, 2024Team MemberRelationshipSpecialtyStart DateEnd Date Peter Ahumada MD [address] [place] [phone] PCP - General01/25/23 Team Status: Inactive Member Role Status Katarina Lara DO Attending Provider Active Start: September 29, 2024 End: September 29, 2024Team MemberRelationshipSpecialtyStart DateEnd Date Peter Ahumada MD [address] [place] [phone] PCP - General01/25/23 Team Status: Inactive Member Role Status Dates Peter Ahumada DO Primary Care Provider Active Sta rt: December 05, 2024 End: December 05jerman Ahumada DOAttending ProviderActiveStart: December 05, 2024 End: December 05, 2024 Team Status: Inactive Member Role Status Dates Peter Ahumada DO Primary Care Provider Active Sta rt: December 08, 2024 End: December 08jerman Ahumada DOAttending ProviderActiveStart: December 08, 2024 End: December 08, 2024 Team Status: Inactive Member Role Status Katarina Ahumada DO Primary Care Provider Active Sta rt: January 27, 2025 End: January 27jerman Ahumada DOAttguille ProviderActiveStart: January 27, 2025 End: January 27, 2025 Team Status: Active Member Role/Relationship Status Katarina Ahumada DO Primary Care Provider Active Team Status: Inactive Member Role/Relationship Status Katarina Ahumada DO Primary Care Provider Active Sta rt: May 15, 2025 End: May 15jerman Ahumada DOAttending ProviderActiveStart: May 15, 2025 End: May 15, 2025 Team Status: Inactive Member Role/Relationship Status Katarina Ahumada DO Primary Care Provider Active Sta rt: May 20, 2025 End: May 20jerman Ahumada DOAttending ProviderActiveStart: May 20, 2025 End: May 20, 2025 Goals (unrecognized section and content) Goals [...] BE BASED ON THE PRIMARY CLINICAL RECORDS. [facility]. provides no warranty or guarantee of the accuracy or completeness of information in this document.
--- NOTE | 2025-05-27 08:03 | PM.CN ---
Consult Note: HPI Data of Consult Patient: known to practice within the last 3 years Consult date: 05/27/25 Requesting Physician: Anastasiya Thomas NP Primary Care Provider: Peter Lozano DO Consult Narrative Reason for consult: low back pain Narrative: 44yof who presents for evaluation. increasing low back pain. pt has failed to benefit from > 6 weeks of PT and provider guided HEP, heat, ice, tylenol and nsaids. utilizing baclofen and meloxicam PRN, without side effects. recently underwent bilateral L4-5 L5-S1 facet RFA (technically L5-6 L6-S1 facets with l6 vertebra) without improvement per pt. pain 5/10 aching increasing to 10/10 with twisting, pushing, pulling, standing, walking, stairs, bending, activity. cc:: CC: Anastasiya Thomas NP Review of Systems ROS Musculoskeletal Reports: back pain PFSH PFSH Medical History Simple cyst of breast ?N60.09 - Solitary cyst of unspecified breast (ICD-10) Sebaceous cyst ?L72.3 - Sebaceous cyst (ICD-10) Low back pain ?M54.50 - Low back pain, unspecified (ICD-10) Hypothyroid ?E03.9 - Hypothyroidism, unspecified (ICD-10) Asthma ?J45.909 - Unspecified asthma, uncomplicated (ICD-10) Surgical History S/P hernia repair ?Z98.890 - Other specified postprocedural states (ICD-10) ?Z87.19 - Personal history of other diseases of the digestive system (ICD-10) History of mandibular surgery ?Z98.890 - Other specified postprocedural states (ICD-10) Meds Home Medications and Allergies Home Medications ?Medication ?Instructions ?Recorded ?Confirmed ?Type esomeprazole magnesium 40 mg 40 mg PO DAILY 06/23/24 04/27/25 History capsule,delayed release esteban control 06/23/24 History multivitamin-ferrous 1 tab PO DAILY 06/23/24 04/27/25 History fumarate-folic acid 18 mg-400 mcg tablet (Centrum Women) bi-zo-opuqtw 68 mcg DFE-caff 95 ea PO 12/02/24 History bm-ponc-mpwfx-tea oral effer pwdr pack (ATP Ignite) albuterol sulfate 90 mcg/actuation 2 puff inhalation PRN shortness of 09/01/24 History aerosol inhaler breath or wheezing baclofen 10 mg tablet 10 mg PO BID PRN muscle spasm #60 09/11/24 04/27/25 Rx tabs meloxicam 7.5 mg tablet 7.5 mg PO BID PRN pain #60 tabs 09/11/24 04/27/25 Rx diazepam 10 mg tablet (Valium) 10 mg PO Q8H PRN sedation 12/08/24 04/27/25 History hydrocodone 5 mg-acetaminophen 325 1 tab PO QID PRN pain #28 tabs 12/17/24 04/27/25 Rx mg tablet Allergies Allergy/AdvReac Type Severity Reaction Status Date / Time benzonatate AdvReac Mild Diarrhea Verified 04/27/25 08:41 indomethacin AdvReac Mild swelling Verified 04/27/25 08:41 Exam Constitutional Documenting provider has reviewed patient's vital signs: yes Common normals: no apparent distress, oriented x3, healthy appearing, alert and well nourished General appearance: cooperative [facility] Common normals: normocephalic, hearing grossly normal bilaterally and moist oral mucous membranes Head and scalp: normocephalic Eye Common normals: PERRL Pupil: PERRL Neck & C-Spine Common normals: full ROM General: normal visual inspection Chest Common normals: inspection of chest normal Respiratory Common normals: normal respiratory effort, no retractions and no use of accessory muscles Back & Pelvis Lumbar spine/lower back: ROM limited, pain with ROM, lumbar spinal tenderness and straight leg raise negative bilaterally Other: positive facet loading strength 5/5 in BLE sensation intact BLE Extremity Common normals: normal to inspection and full ROM Neuro Common normals: oriented x3 Sensorium/orientation: alert Gait (neuro): normal gait Psych Common normals: mental status grossly normal, thought process normal, cooperative, affect normal, speech normal and activity/motor behavior normal Speech: normal speech Thought process: normal thought process Results Imaging Lumbar MRI: Attestation: I have reviewed the pertinent imaging results. Radiologist's impression: Multiecho imaging in the axial and sagittal plane was performed without contrast. There is 3 - 4 mm of spondylolisthesis at the lumbosacral junction where there is also degenerative endplate signal change. Alignment is otherwise maintained. There are no acute compression fractures or marrow edema. The conus medullaris is within normal limits for caliber, position and signal intensity. No paraspinal soft tissue abnormalities are identified. At the lumbosacral junction, there is narrowing of the disc space. There is minor annular disc bulging, slightly asymmetric toward the left. There is subtle thecal sac effacement. There is minor inferior foraminal encroachment on the left. At the remaining lumbar levels, no disc bulge or herniation is identified. No central or foraminal stenosis is noted. Additional Findings Additional findings: If on a controlled substance or opioids, I have checked an [place] report on this patient and there are no aberrancies noted in the prescribing history.??If on a controlled substance or opioid a drug screen was completed and reviewed within the last year, and if there has not been a drug screen completed we ordered one today to monitor higher risk, state monitored pain medication use. As part of providing excellent, safe, comprehensive care, the following was completed at our patient's visit: 1. A medication reconciliation and review to ensure accurate knowledge of current/active medications, including asking our patients to inform us about any wyin-jtt-fhoxseo medications or herbal remedies/nutritional supplements/alternative remedies. 2. A review to specifically ensure our patients have had annual screening for screening for depression, screening for tobacco use, and screening for unhealthy alcohol use. For concerning screenings had a discussion with the patient, provided patient education, and recommended follow-up with primary care provider when appropriate. If patient noted with a risk of falling, they received education on strength, gait, and balance training to prevent future risk of falling. Portions of this note may have been carried over from the previous visit and updated as appropriate. Please note this office utilizes paper charting in addition to the electronic medical record. A list of current medications, vitals, and PMH is available there as the clinical staff outside of myself do not have access to [employer] charting during the clinic day operations. As part of providing quality comprehensive care the current medications, vitals, and PMH were reviewed in the paper chart. Assessment and Plan Assessment and Plan (1) Lumbar spondylosis: Assessment and Plan: The patient has had over 3 months of moderate to severe low back pain with functional impairment and inadequate response to conservative care including NSAIDS (unless there are contraindication such as concurrent blood thinners), multiple oral or topical pain medications, and home exercise program/physical therapy.? Patient has completed >6 weeks of guided home exercise program and/or formal physical therapy program without relief of their symptoms.? ZURI 6% 03/25/25 bilateral L5-6 L6-S1 facet RFA without improvement at this time (2) Vertebrogenic low back pain: Assessment and Plan: notable modic changes at L5 L6 on MRI independent review (3) Degeneration of intervertebral disc of lumbar region with discogenic back pain: Assessment and Plan: 03/16/25 bilateral L5-S1 TFESI >80% improvement for 1 month Plan request radiology reread mri of lumbar spine to assess modic changes. may consider intracept will refer to NS for evaluation of surgical intervention continue current medications continue HEP as tolerated f/u 1 month to review plan of care
== END 2025-05-27 07:54 | disposition home or self-care (01) ==
LOC: PM 07:54
PROVIDERS: PCP Family Medicine; Visit Provider Nurse Practitioner
DX: M47.816 Spondylosis without myelopathy or radiculopathy, lumbar region (principal); M51.370 Other intervertebral disc degeneration, lumbosacral region with discogenic back pain only
CPT/HCPCS: G0463

== ENCOUNTER 2025-06-25 07:56 | Outpatient (OUT) | payer OTHER, SELFPAY ==
--- OUTSIDE RECORDS SUMMARY | 2025-06-15 02:55 | XMS_ITS | Continuity of Care Document ---
Author Organization [facility] Address [address] [place] [address] Phone Care Team Providers Care Gluing Pressman Name Role Phone Severo KETANAgusto Tamar CARLINan [...] 130 MM HG MED LIST DOCD IN [facility] RVW MEDS BY RX/DR IN [facility] Pt inelig neg scrn depres OFFICE/OUTPATIENT [...] Diagnoses Date Provider Providers Copied on Encounter [facility], [address] [place] [address], [id number] , [place] tel: [phone] [facility] No Information 5 [facility]. [address], [place], [id number], [place]. tel:[phone] OFFICE/OUTPA TIENT VISIT, EST [facility], [address], [place], [id number] , [place] tel: [phone] [facility] vaginal discharge/itch ing (chief complaint) Body mass index [BMI] 31.0-31.9, adultVaginal odorBV (bacterial vaginosis)Other specified bacterial agents as the cause of diseases classified elsewhereBody mass index [BMI] 32.0-32.9, adult 5 [facility]. [address] [place] [address], [id number], [place]. tel:[phone] PREV VISIT, EST, AGE 40-64 [facility], [address] [place] [address], [id number] , [place] tel: [phone] [facility] annual exam (chief complaint) Encounter for gynecological examination (general) (routine) without abnormal findingsBody mass index [BMI] 31.0-31.9, adultEncounter for screening mammogram for Ca of breastOCP follow up Rx 4 [facility]. [address] [place] [address], [id number], [place]. tel:[phone] PREV VISIT, EST, AGE 40-64 [facility], [address] [place] [address], [id number] , [place] tel: [phone] [facility] annual exam (chief complaint) Encounter for gynecological examination (general) (routine) without abnormal findingsEncounte r for STD screening- STD High risk heterosexual behaviorOCP follow up RxBody mass index [BMI] 34.0-34.9, adult 3 [facility]. [address] [place] [address], [id number], [place]. tel:[phone] OFFICE/OUTPA TIENT VISIT, EST [facility], [address], [place], [id number] , [place] tel:[phone] [facility] Ovarian cyst (chief complaint) Right ovarian cystFamily history of uterine cancerEncounter for screening mammogram for Ca of breastBody mass index [BMI] 36.0-36.9, adult Oct- 3 [facility]. [address], [place], [id number], [place]. tel:[phone] PREV VISIT, EST, AGE 40-64 [facility], [address] [place] [address], [id number] , [place] tel: [phone] [facility] annual exam (chief complaint) Encounter for gynecological examination (general) (routine) without abnormal findingsBody mass index [BMI] 33.0-33.9, adultEncounter for STD screeningOther problem related to lifestyleOCP follow up RxEncounter for screening mammogram for Ca of breast 2 [facility]. [address] [place] [address], [id number], [place]. tel:[phone] PREV VISIT, EST, AGE 18-39 [facility], [address] [place] [address], [id number] , [place] tel: [phone] [facility] annual exam (chief complaint) Encounter for gynecological examination (general) (routine) without abnormal findingsBody mass index [BMI] 37.0-37.9, adultPelvic pain in femaleEncounter for screening mammogram for Ca of breastOCP follow up Rx 1 Severo TASHA Telles. [address], [place], [id number], [place]. tel:[phone] [facility], [address] [place] [address], [id number] , [place] tel: [phone] [facility] Abnormal Mammogram 0 [facility]. [address] [place] [address], [id number], [place]. tel:[phone] PREV VISIT, EST, AGE 18-39 [facility], [address] [place] [address], [id number] , [place] tel: [phone] [facility] annual exam (chief complaint) Encntr for cosmetic chemist exam (general) (routine) w/o abn findingsFibrocys tic disease of breastEncounter for STD screeningOther problem related to lifestyleBody mass index (BMI) 29.0-29.9, adultUrine test negative - 0 [facility]. [address] [place] [address], [id number], [place]. tel:[phone] [facility], [address] [place] [address], [id number] , [place] tel: [phone] [facility] Abnormal Mammogram 0 [facility]. [address] [place] [address], [id number], [place]. tel:[phone] [facility], [address] [place] [address], [id number] , [place] tel: [phone] [facility] Abnormal Mammogram 9 [facility]. [address] [place] [address], [id number], [place]. tel:[phone] OFFICE/OUTPA TIENT VISIT, EST [facility], [address] [place] [address], [id number] , [place] tel: [phone] [facility] abnormal pap smear (chief complaint) Body mass index (BMI) 29.0-29.9, adultCyst of right breastFibrocysti c disease of breastAtypical squamous cells of undetermined significance on cytologic smear of cervix (ASC-US) 9 [facility]. [address] [place] [address], [id number], [place]. tel:[phone] PREV VISIT, EST, AGE 18-39 [facility], [address], [place], [id number] , [place] tel: [phone] [facility] annual exam (chief complaint) Encntr for cosmetic chemist exam (general) (routine) w/o abn findingsOther problem related to lifestyleEncount er for STD screeningBody mass index (BMI) 28.0-28.9, adult 8 [facility] [address], [place], [id number], [place]. tel:[phone] [facility], [address], [place], [id number] , [place] tel: [phone] [facility] Cyst of right breast 8 [facility]. [address], [place], [id number], [place]. tel:[phone] [facility], [address], [place], [id number] , [place] tel: [phone] [facility] Cyst of right breast 8 [facility]. [address], [place], [id number], [place]. tel:[phone] OFFICE/OUTPA TIENT VISIT, EST [facility], [address], [place], [id number] , [place] tel: [phone] [facility] abnormal pap smear (chief complaint) Body mass index (BMI) 28.0-28.9, adultCIN 2OCP follow up Rx 8 [facility]. [address], [place], [id number], [place]. tel:[phone] [facility], [address], [place], [id number] , [place] tel:[phone] [facility] Fibrocystic disease of breast 2 8 [facility]. [address], [place], [id number], [place]. tel:[phone] OFFICE/OUTPA TIENT VISIT, [facility], [address], [place], [id number] , [place] tel: [phone] [facility] Leep follow up (chief complaint) Unspecified lump in unspecified breastCIN 2 7 [facility]. [address], [place], [id number], [place]. tel:[phone] [facility], [address], [place], [id number] , [place] tel: [phone] [facility] Leep (chief complaint) PEG 2 7 [facility]. [address], [place], [id number], [place]. tel:[phone] OFFICE/OUTPA TIENT VISIT, [facility], [address], [place], [id number] , [place] tel: [phone] [facility] Colpo (chief complaint) Atypical squamous cells of undetermined significance on cytologic smear of cervix (ASC-US)Cervical high risk HPV DNA test positive 7 [facility]. [address], [place], [id number], [place]. tel:[phone] OFFICE/OUTPA TIENT VISIT, [facility], [address], [place], [id number] , [place] tel: [phone] [facility] contraception (chief complaint) contraceptive management 7 Severo [facility]. [address], [place], [id number], [place]. tel:[phone] OFFICE/OUTPA TIENT VISIT, [facility], [address], [place], [id number] , [place] tel: [phone] [facility] vaginal discharge/itch ing (chief complaint) Vulvovaginitis 7 [facility]. [address], [place], [id number], [place]. tel:[phone] PREV VISIT, EST, AGE 18-39 [facility], [address], [place], [id number] , [place] tel: [phone] [facility] annual exam (chief complaint) - well woman with abnormal findingDysmenorr heaEncounter for STD screeningOther problem related to lifestylecontrac eptive managementEncntr for cosmetic chemist exam (general) (routine) w/o abn findingsUmbilica l hernia without obstruction and without gangrene [facility]. [address], [place], [id number], [place]. tel:[phone] PREV VISIT, EST, AGE 18-39 [facility], [address], [place], [id number] , [place] tel: [phone] [facility] Update (chief complaint)robin al exam (chief complaint)cont raception (chief complaint) Encounter for general cosmetic chemist exam without abnormal findingEncounter for STD screeningOther problem related to lifestyle 6 [facility]. [address], [place], [id number], [place]. tel:[phone] PREV VISIT, EST, AGE 18-39 [facility], [address], [place], [id number] , [place] tel: [phone] [facility] annual visit (chief complaint) Gynecological ExaminationIrreg ular menstrual cycle 4 [facility]. [address], [place], [id number], [place]. tel:[phone] PREV VISIT, EST, AGE 18-39 [facility], [address], [place], [id number] , [place] tel: [phone] [facility] No Information 2 David Khan. [address], [place], [id number]. tel:[phone] PREV VISIT, NEW, AGE 18-39 [facility], [address], [place], [id number] , [place] tel:[phone] [facility] No Information 0-201 0 Юлия Killian. [address], [place], [id number], [place]. tel:[phone] Family History Family Member Type Diagnosis Age [...] Insurance type Covered green party ID Authoriza brielle(s) [employer] CFC [id number] Medicaid Wrap - [facility] [place] [id number] Medicaid Wrap - [facility] [place] [id number] Social History Type Description Quantity Date Captured [...] Hep A. Due on du e Goal RLP. Due on due Goal HPV. Due on due Goal Tdap. Due on due Goal Unhealthy drug use screening . Due on due Goal Lipid panel. Due on 025 due Goal Mammogram. Due on 2 due Goal Influenza vaccine. Due on No due Goal Hepatitis C screening. Due o n due Goal PRAPARE ASSESSMENT. Due on N ov due Goal Tdap Vaccine. Due on 2024 due Goal Depression screening. Due on due Goal Dietary management education , guidance, and counseling completed Goal Hep A. Due on du e Goal Mammogram. Due on 2 due Goal Unhealthy drug use screening . Due on due Goal Influenza vaccine. Due on De due Goal Tdap. Due on due Goal Hepatitis C screening. Due o n due Goal Lipid panel. Due on 024 due Goal HPV. Due on due Goal Depression screening. Due on due Goal RLP. Due on due Goal Tdap Vaccine. Due on 2023 due Goal PRAPARE ASSESSMENT. Due on due Goal Mammogram. Due on [...] due Goal HPV. Due on due Goal Tdap Vaccine. Due [...] Referral Ordered: MAMMOGRAM, SCREENING Appointment date/timeframe: 11/23/2022 [id number] Ordered: US EXAM, PELVIC, COMPLETE Appointment date/timeframe: 03/02/2021 [id number] Ordered: DX MAMMO INCL CAD BI Bilateral Appointment date/timeframe: 07/14/2019 [id number] Ordered: US Exam, Breast(s) Bilateral Appointment date/timeframe: 01/16/2019 [id number] Ordered: Referrals: Surgery. Consult Appointment date/timeframe: 02/28/2018 [id number] Ordered: Surgery (related to Umbilical hernia without obstruction and without gangrene) [id number], TabithaBOOKED History Of Present Illness Encounter Date [...] OCPs and desires to continue. Denies other MASTER PRINTER problems at this time. . annual exam [...] does take Motrin PRN cramping. Denies other MASTER PRINTER problems at this time. She does get [...] doing well with OCPS and denies other MASTER PRINTER problems was just treated recently for a [...] 1 year she had BTB. Denies other MASTER PRINTER problems at this time.. abnormal pap smear [...] is willing to try nuvaring. Denies other MASTER PRINTER problems at this time. 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 Physician in [place] has recommended a possible biopsy Functional Status [...] to Body mass index [BMI] 37.0-37.9, adult Cervical cultures se nt to lab. Patient to call in 1 week for results Related to Encounter for STD screening Bilateral breast son ogram ordered. Encouraged to decrease or stop caffeine intake. Related to Fibrocystic disease of breast Encouraged monthly B SE. Recommend calcium 1000mg QD. Encouraged good dietary intake and exercise. Laboratory specimens sent to lab. Patient to call in 2 weeks if desires results.Discussed control options and patient desires Vasectomy Related to Encntr for cosmetic chemist exam (general) (routine) w/o abn findings Dietary [...] next repeat pap. Related to Encntr for cosmetic chemist exam (general) (routine) w/o abn findings Dietary [...] insurance, but states [place] [facility] [place] to Umbilical hernia without obstruction and [...] all follow up appt with physician in [place] for abnormal neck gland, fullness and thyroid. Patient states understanding. Encouraged to start Motrin 800mg every 8 hours around the clock during a heavy menses. Patient to take medication with food. Patient states understanding Encouraged to keep menstrual calendar Related to Encounter for general cosmetic chemist exam without abnormal finding Cervical cultures se nt to lab. Patient to call in 1 week for results Related to Encounter for STD screening Assessments Type Assessment Date No Information Patient Care Teams Name Effective Dates (start - stop) Status Members No Information
--- OUTSIDE RECORDS SUMMARY | 2025-06-25 07:59 | XMS_ITS | Clinical Summary ---
Author Organization [facility] Address [address] [place] [address] Phone Care Team Providers Care Teradata Solution Architect Name Role Phone Guillermo Lozano Esteban [place] Primary Care Provider [phone] Social History Tobacco UseTypesPacks/DayYears UsedDateSmoking Tobacco: Never Assessed CommentsUnknownSex and Gender InformationValueDate RecordedSex Assigned at Not on fileLegal AzfQooxtt94/25/2022 11:36 AM ESTGender IdentityNot on file Sexual OrientationNot on file Plan of Treatment Health MaintenanceDue DateLast DoneCommentsHIV Gpazbefia1982Lipid Panel 1982MMR Vaccines (1 of 1 - Standard series)1983Hepatitis C Screening 2000Hepatitis B Vaccines (1 of 3 - 19+ 3-dose series)2001HPV/Cotest 2003DTaP/Tdap/Td Vaccines (1 - Tdap)2004HPV Vaccines (1 - 3-dose standard series)04/17/20093048Thmlcqzyg35/26/2022ervical Cancer Cyyrfpmcp64/09/2023 Pap Smear/03/2020Yearly Adult Laqnvnlr63/, 02/28/2021, 12/30/2019Influenza Vaccine (#1)2025OVID-19 Vaccine ( - [...]
--- OUTSIDE RECORDS SUMMARY | 2025-06-25 07:59 | XMS_ITS | Clinical Summary ---
Author Organization [facility] Address [address] [place] [address] Care Team Providers Care Financial Center Manager Name Role Phone Peter Lozano Agusto [place] Primary Care Provider [phone] Allergies Active AllergyReactionsCriticalityNoted DateCommentsIndomethacinSwelling 05/10/2018 Medications MedicationSigDispense [...] number is lower riskNot on file06/30/2020Data from: https://www.neighborhoodatlas.medicine.[facility].edu/. Last address used for calculationNot on file06/30/2020CommentsNoSex and Gender Information ValueDate RecordedSex Assigned at BirthNot on fileLegal IqoOxjsvh89/02/2016 3:38 PM EDTGender IdentityNot on fileSexual OrientationNot on file Last Filed Vital Signs Vital SignReadingTime TakenCommentsBlood Suknrwbg582/5503 1:28 PM EDT Hmtpu8385 1:28 PM GFESyyqxxsscbx09.5 ??C (97.7 ??F)10/13/2021 1:28 PM EDTRespiratory Rate--Oxygen Ohokmrdoeq04%10/13/2021 1:28 PM EDTInhaled Oxygen Concentration--Yoyuta520.2 kg (254 lb)10/13/2021 1:28 PM QQNCdjqsg162.9 cm (6') 10/13/2021 1:28 PM EDTBody Mass Index34.45010/13/2021 1:28 PM EDT Plan of Treatment Health MaintenanceDue DateLast DoneCommentsAnxiety Bfdbeuwlh19/26/2000Depression Sxmrgudeh45/26/2000HIV Jetsulrkd15/26/2000Hepatitis C Zhtqxbyxo42/26/2000 Hepatitis B Vaccine (1 of 3 - 19+ 3-dose series)2001Cervical Cancer Kyprjwakm50/26/2003HPV Vaccine (1 - 3-dose SCDM series)2009Mammogram Kgknuahfn50/26/2022Covid-19 Vaccine (1 - 2024- season)2025Influenza Vaccine (#1)2025DTaP,Tdap,Td Vaccine (2 - Td or Tdap) Insurance Care Teams Team MemberRelationshipSpecialtyStart DateEnd Date Peter Lozano DO [address] [place] [address] PCP - GeneralFaorly Medicine11/22/15
--- OUTSIDE RECORDS SUMMARY | 2025-06-25 07:59 | XMS_ITS | Clinical Summary ---
Author Organization [facility] Address [address] [place] [address] Care Team Providers Care Power Mule Operator Name Role Phone Peter Lozano DO Primary Care Provider [phone] Allergies Active AllergyReactionsCriticalityNoted DateCommentsBenzonatateGI intolerance 01/25/20232065BbicwkztcxjcCdpghshh21/19/2018 Medications MedicationSigDispense QuantityRefillsLast FilledStart DateEnd DateStatus omeprazole (PriLOSEC) [address] capsule TAKE 1 CAPSULE BY MOUTH EVERY DAY 30 MINUTES BEFORE MORNING MEAL12/19/2022ctive Mary Lou 0.25-35 MG-MCG tablet Take 1 tablet by mouth in the morning.11/11/2022ctive ibuprofen 800 MG tablet TAKE 1 TABLET BY MOUTH THREE TIMES A DAY WITH FOOD OR MILK OCTAHL6210/20/2022 Active albuterol HFA (Proventil HFA) 90 mcg/act inhaler every 4 (four) hours.Active Multiple Vitamin (multivitamin) tablet Take 1 tablet by mouth in the morning.Active traMADol (Ultram) 50 MG tablet TAKE 1 TABLET BY MOUTH FOUR TIMES A DAY ZLVGHT0406/08/2023ctive levothyroxine (Synthroid, Levoxyl) 88 MCG tablet TAKE 1 TABLET BY MOUTH EVERY DAY IN THE MORNING ON EMPTY STOMACH FOR 90 DAYS 09/11/2023ctive HYDROcodone-acetaminophen ([place]) 5-325 MG tablet TAKE 1 TABLET BY MOUTH EVERY 4-6 HOURS NEEDED FOR PAIN FOR 7 DAYS12/31/2023 Active Active Problems ProblemNoted DateDiagnosed DateSebaceous cyst09/10/2024Ventral hernia without obstruction or lnawwijt95/18/2024eriumbilical abdominal pain4Breast cyst, left3Abnormal findings on diagnostic imaging of odzqlh1501/25/2023 Cyst of left oqyidh7301/25/2023yst of right vwcgdt4801/25/2023Other chronic pain 3Peroneal oxrygcfbaz46/06/2023Second branchial cleft cyst01/25/2023 Umbilical hernia without obstruction and without djabkmtj51/06/2023ain in right foot11/26/2017Chronic pain of right knee11/12/2017 Encounters DateTypeDepartmentCare FugvYhlcsoliawb49/13/2025 1:30 PM ESTOffice Visit [facility] [address] [place] [address] Dolsapphire, Luis Miguel R, DPM FACFAS Neoplasm of uncertain behavior of skin (Primary Dx); Plantar verruca; Pain in left foot; Pain in right foot5Bamboo flowsheet [facility] [address] [place] [address] Dolce, Luis Miguel R, DPM FACFAS from Last 3 Months Immunizations ImmunizationAdministration DatesNext CuyFfwf9802/18/2018 Family History Medical HistoryRelationNameCommentsUterine cancerMotherHypertensionOtherThyroid diseaseOtherBreast cancerNeg HxColon cancerNeg HxOvarian cancerNeg HxPancreatic cancerNeg LgVjppeusyHwwuUmntpwYltkwgwyIglplxe2Iujub6FqigdtGxzxyRobbraFshxsFzcol Social History Tobacco UseTypesPacks/DayYears UsedDateSmoking Tobacco: FormerCigarettesQuit: 06/22/2006Smokeless Tobacco: Never Tobacco Cessation:Counseling Given: Yes Comments:Quit smoking 10 years ago Alcohol UseStandard Drinks/WeekCommentsNot Currently0 (1 standard drink = 0.6 oz pure alcohol)caffeine 1-2 cups/dayCommentsUnknownSex and Gender InformationValueDate RecordedSex Assigned at VipsuUkcpvb97/29/2023 8:37 AM EDT Legal OdkZdeeis69/15/2023 7:07 PM EDTGender HcrhyleiUlaplo00/29/2023 8:37 AM EDT Sexual NsacyiuvbnxJfathfng98/29/2023 8:37 AM EDT Last Filed Vital Signs Vital SignReadingTime TakenCommentsBlood Mgtxizyb825/7406/04/2025 1:42 PM EST Pulse--Temperature--Respiratory Rate--Oxygen Saturation--Inhaled Oxygen Concentration--Nbvyes933 kg (230 lb)06/04/2025 1:42 PM RWSOirurl599.9 cm (6') 06/04/2025 1:42 PM ESTBody Mass Index31.19108/04/2024 1:42 PM EST Plan of Treatment DateTypeDepartmentCare Team (Latest Contact Info)Vicvdgifvxk28/04/2025 1:30 PM ESTOffice Visit [facility] [address] [place] [address] Luis Miguel Frausto, DPM FACFAS [address] [place] [address] Insurance Care Teams Team MemberRelationshipSpecialtyStart DateEnd Date Peter Lozano DO [address] [place] [id number] PCP - General01/25/23
--- OUTSIDE RECORDS SUMMARY | 2025-06-25 07:59 | XMS_ITS | Patient Health Record ---
Author Organization [facility] Address [address] [place] [address] [place] [address] Care Team Providers Care Video Engineer Name Role Phone Guillermo Lozano DO Primary Care Provider UnavailDylan Zaragoza Unavailable [phone] Reason For Referral No Information Problems Problem Type SNOMED Code ICD Code Onset Dates Problem Status W/U Status Risk Notes Problem Plantar wart (48589576) Plantar wart (078 .12) ActiveconfirmedProblemPain in limb (48393211)Pain in soft tissues of limb (729.5)Activeconfirmed Plan Of Treatment No Information Medical (General) History Medical History History ICD Code asthma fractured jawSurgical History Surgery Date(Month/Year) jaw
--- OUTSIDE RECORDS SUMMARY | 2025-06-25 07:59 | XMS_ITS | Patient Health Record ---
Author Organization [facility] [place] Address [address] [place] [address] Care Team Providers [employer] Consultant Name Role Phone Peter Lozano DO Primary Care Provider Arthur Wade [phone] Allergies No Known Allergies Reason For Referral No Information Medications Medication SIG (Take, Route, Frequency, Duration) Notes Start Date End Date Status Esomeprazole Magnesium 40 MG 1 capsule Orally On ce a day ActiveLevothyroxine Sodium 88 MCG1 tablet in the morning on an empty stomach Orally Once a dayActivemethylPREDNISolone 4 MGas directed Gczhnh7603/25/2024ctive Meloxicam 15 MGTAKE 1 TABLET BY MOUTH [...] Risk Notes Problem Deformity of lower leg (65431758 0) Other specified acquired deformities of right lower leg (M21.861) ActiveconfirmedProblemAcquired deformity of left lower leg (disorder) (070558961576394)Other specified acquired deformities of left lower leg (M21.862)ActiveconfirmedProblemContracture of joint of right ankle (disorder) (472394960031505)Contracture, right ankle (M24.571)ActiveconfirmedProblem Contracture of joint of left ankle (disorder) (500958668104027)Contracture, left ankle (M24.572)ActiveconfirmedProblemLumbar radiculopathy (169962998) Radiculopathy, lumbar region (M54.16)ActiveconfirmedProblemLeft side sciatica (265941705999745)Sciatica, left side (M54.32)ActiveconfirmedProblemPlantar fascial fibromatosis (89981794)Plantar fascial fibromatosis (M72.2)Active confirmed Encounters Encounter Location Date Provider Diagnosis [facility] [place] (PODIAT[facility]) [address] [place] [address] 06/27/2024 Arthur Kent Plan Of Treatment Pending Test Test Name Order Date MRI Ankle LT w/o contrast (Hind Foot) XR Foot 3 Views Bilateral 03/25/2024 XR foot KG min 3V 03/26/2024 Insurance Providers Payer Name Payer Address Payer Phone Subscriber Number Group Number Insured Name Patient Relationship to Insured Coverage Start Date Coverage End Date [employer] [place] [employer] [address] [place] [address] [id number] Haroon Ohara - patient is the insured Medical (General) History Medical History History ICD Code GERD fatty liverthyroid issuesSurgical History Surgery Date(Month/Year) jaw broke and 4 wisdom teeth extracted branchial cleft cyst removed on neckhernia [id number] breast cyst removed hernia [id number]
--- OUTSIDE RECORDS SUMMARY | 2025-06-25 08:01 | XMS_ITS | CCD ---
[facility] Organization [facility] Providers Care Statistical Reporting Analyst Name Role Phone DR PETER AHUMADA Primary Care Unavailable DR CHETAN RUDD Admitting Unavailable DR CHETAN RUDD Consulting Unavailable DR CHETAN RUDD Attending Unavailable Luz Marina Hernandez Consulting Unavailable Peter Ahumada DO Primary Care Provider Peter Ahumada Unavailable Acs, DO Peter Primary Care Provider [phone] Acs, DO Peter Attending Provider Kuns, DO Peter Primary Care Provider Kuns, DO Peter Attending Provider [phone] Kuns, DO Peter Primary Care Provider Kuns, DO Peter Attending Provider Rolando, [facility]- [place] Emergency Provider [phone] Severo ([facility] [place] DELIA Orellana Attending Provider Acs, DO Peter Primary Care Provider Kuns, DO Peter Attending Provider [phone] Kuns, DO Peter Primary Care Provider [phone] Kuns, DO Peter Attending Provider Kuns, DO Peter Primary Care Provider [phone] Kuns, DO Peter Attending Provider Kuns, DO Peter Primary Care Provider Acs, DO Peter Referring Provider Self, Referral Attending Provider Unavailable MD Igor Rudd Emergency Provider Kuns, DO Peter Attending Provider Itzkowitz, DO Alber Attending Provider [phone] DO Chas Meza Attending Provider [phone] Kuns, DO Peter Primary Care Provider Kuns DO, Peter P Primary Care Provider Kuns, DO Peter Primary Care Provider Kuns, DO Peter Attending Provider JEAN CARLOS Martinez Attending Provider Peter Ahumada MD Primary Care Provider [phone] Blake HOOVER, Peter Primary Care Provider Blake HOOVER, Peter Attending Provider [phone] Robert Martinez DPM Attending Provider Blake DO, Peter Primary Care Provider Robert Martinez DPM Attending Provider Blake DO, Peter Primary Care Provider Robert Martinez DPM Attending Provider Itzkowialicia DO, Alber Attending Provider ITZKOWITZ, ALBER H Attending Unavailable ITZKOWITZ, ALBER H Attending Unavailable ITZKOWITZ, ALBER H Attending Unavailable ITZKOWITZ, ALBER H Attending Unavailable ITZKOWITZ, ALBER H Attending Unavailable ITZKOWITZ, ALBER H Attending Unavailable RAHUL CASTILLO Attending Unavailable ROBERT MARTINEZ Referring Unavailable Peter Ahumada DO Primary Care Provider Peter Ahumada DO Attending Provider [phone] Giedraitis , Andrius Vytautas Attending Unavailable Giedraitis , Andrius Vytautas Attending Unavailable Giedraitis , Andrius Vytautas Attending Unavailable Giedraitis , Andrius Vytautas Attending Unavailable Giedraitis , Christos Masters Attending Unavailable Isaíasitis , Andcorinne Masters Attending Unavailable Isaíasitis , Andcorinne Masters Attending Unavailable Isaíasitis , Andcorinne Masters Attending Unavailable Peter Ahumada DO Primary Care Provider Peter Ahumada DO Attending Provider Robert Martinez Admitting Unavailable Robert Martinez Attending [...] Allergen(s)Allergy TypeDate of OnsetReaction(s) Facility (15 sources)IndomethacinDrug [id number] (16 sources)benzonatateDrug [id number]dicine [facility] (6 sources)benzonatateDrug [id number] [facility] Work Phone: (1 source)benzonatateDrug Gcetwnn19-68-5218BjbjczrnoSouthview [facility] (1 source)IndomethacinDrug Bsawtfh15-55-5176LhjkdvykfSouthview Medical Center Repository Medications Current Medications MedicationDrug Class(es)DatesSig (Normalized)Sig (Original)[id number] 200 actuat albuterol 0.09 mg/actuat metered dose inhaler (20 sources)beta2-Adrenergic AgonistStart: 09-37-7030irwf 2 puff(s) by inhalation every four hours as neededAlbuterol Sulfate (Proair Hfa) 90 mcg/actuation HFA aerosol inhaler Active 2 PUFF INHALATION Every 4 hours December 19, 2023 12:00am FreeTextSi puffs as needed Inhalation every 4 hrs; Note: Source Status: RefillPRN; Refills: 1; Provider: Blake Liz Complies with drug therapyStart: 04-24-2017 End: 25-67-0199zrhj 1 puff(s) by inhalation every four to six hours as needed for wheezingAlbuterol Sulfate (Proventil Hfa) 90 mcg/actuation Hfa Aerosol Inhaler Discontinued 1 PUFF INHALATION EVERY 4-6 HOURS as needed for Shortness Of Breath Or Wheezing April 24, 2017 12:00am November 2:03pmStart: 25-34-5139btsz 2 puff(s) by inhalation every four hours as neededProAir HFA 108 (90 Base) MCG/ACT 2 puffs as needed Inhalation every 4 hrs PRN Mar, Activealbuterol HFA (Proventil HFA) 90 mcg/act inhaler every 4 (four) hours. Activebaclofen 10 mg oral tablet (3 sources)gamma-Aminobutyric Acid-ergic AgonistStart: 55-21-3641waux 1 tablet by mouth twice daily as neededBaclofen 10 mg tablet Active 10 MG PO Twice daily as needed December 08, 2024 12:00am Complies with drug therapyesomeprazole 40 mg delayed release oral capsule (14 sources)Proton Pump InhibitorStart: 30-88-7525azkf 1 capsule by mouth once dailyEsomeprazole Magnesium (Nexium) 40 mg capsule,delayed release(DR/EC) Active 40 MG PO Daily 90 3 June 10, 2024 1:00am Complies with drug therapyStart: 03-14-2024 End: 91-34-2316clac 1 capsule by mouth twice dailyEsomeprazole Magnesium (Nexium) 40 mg capsule,delayed release(DR/EC) Discontinued 40 MG PO Twice daily 180 1 March 14, 2024 12:00am June 10, 2024 4:43pmNorgestimate-Ethinyl Estradiol (20 sources)Progestin, EstrogenStart: 28-17-2968bhcr 1 tablet by mouth once daily at bedtimeNorgestimate-Ethinyl Estradiol 0.25-35 mg-mcg tablet Active 1 TAB PO Daily at bedtime December 19, 2023 12:00am Complies with drug therapyStart: 88-37-4512dmrd 1 tablet by mouth once daily at bedtimeStart: 23-50-1759drqg 1 tablet by mouth once daily at bedtimeNorgestimate-Ethinyl Estradiol 0.25-35 mg- mcg tablet Active 1 TAB PO Daily at bedtime December 19, 2023 12:00amStart: 35-40-8780nvpc 1 tablet by mouth once daily at bedtimeNorgestimate-Ethinyl Estradiol 0.25-35 mg-mcg tablet Active 1 TAB PO Daily at bedtime December 18, 2023 11:00pmStart: 13-90-1926iake 1 tablet by mouth once daily at bedtime Norgestimate-Ethinyl Estradiol Active 1 TAB PO Daily at bedtime December 19, 2023 12:00amStart: 73-35-3342ltwz 1 tablet by mouth once dailyNorgestimate-Ethinyl Estradiol Active 1 TAB PO Daily December 19, 2023 12:00amStart: 93-36-3097hjyz 1 tablet by mouth in the morningMili 0.25-35 MG-MCG tablet Take 1 tablet by mouth in the morning. 11/11/2022 ActiveStart: 02-08-2021 End: 81-23-1257uwlk 1 tablet by mouth once dailyNorgestimate-Ethinyl Estradiol (Mary Lou) 0.25-35 mg-mcg tablet Discontinued 1 TAB PO Daily February 07, 2021 11:00pm December 19, 2023 1:04pmStart: 02-08-2021 End: 98-44-7106bgkc 1 tablet by mouth once dailyNorgestimate-Ethinyl Estradiol (Mary Lou) 0.25-35 mg-mcg tablet Discontinued 1 TAB PO Daily February 08, 2021 12:00am December 19, 2023 2:04pmStart: 53-39-3132llyn 1 tablet by mouth once daily Norgestimate-Ethinyl Estradiol (Mary Lou) 0.25-35 mg-mcg tablet Active 1 TAB PO Daily February 07, 2021 11:00pmStart: 28-28-4410dbhp 1 tablet by mouth once daily Norgestimate-Ethinyl Estradiol (Mary Lou) 0.25-35 mg-mcg tablet Active 1 TAB PO Daily February 08, 2021 12:00amStart: 05-23-9390sypy 1 tablet by mouth once daily MARY LOU 0.25-35 mg-mcg per tablet Take 1 tablet by mouth once daily. 09/15/2020 ActiveStart: 14-02-2125woey 1 tablet by mouth once dailyMILI 0.25-35 mg-mcg per tablet Take 1 tablet by mouth once daily. 0 09/15/2020 ActiveStart: 04-24-2017 End: 52-30-8638yhyx 1 tablet by mouth once dailyNorgestimate-Ethinyl Estradiol (Sprintec (28)) 0.25-35 mg-mcg Tablet Discontinued 1 TAB PO Daily April 23, 2017 11:00pm February 08, 2021 9:37amStart: 04-24-2017 End: 72-53-1893gcsj 1 tablet by mouth once dailyNorgestimate-Ethinyl Estradiol (Sprintec (28)) 0.25-35 mg-mcg Tablet Discontinued 1 TAB PO Daily April 24, 2017 12:00am February 08, 2021 10:37amtake 1 tablet by mouth every twenty-four hoursNorgestimate-Eth Estradiol 0.25-35 MG-MCG 1 tablet Orally Once a day Active Comment on above:Take 1 tablet by mouth once daily.ibuprofen 800 mg oral tablet (20 sources)Nonsteroidal Anti-inflammatory DrugStart: 35-99-5603ehka 1 tablet by mouth three times daily as needed for painIbuprofen 800 mg tablet Active 800 MG PO Three times daily as needed for pain 90 2 May 20, 2025 12:00am Complies with drug therapyStart: 10-20-2022 End: 72-86-6817txru 1 tablet by mouth three times dailyIbuprofen 800 mg tablet Discontinued 800 MG PO Three times daily December 19, 2023 12:00am December 27, 2023 2:17pmStart: 03-12-2020 End: 47-15-8950zfkp 1 tablet by mouth every eight hours as needed for pain Ibuprofen 600 mg tablet Discontinued 600 MG PO Q8H as needed for pain 20 0 March 12, 2020 12:00am December 17, 2023 7:36amStart: 03-26-2018 End: 85-60-8892Zcusxtyfw 800 mg Tablet Discontinued 800 MG PO As Directed as needed for Pain March 26, 2018 12:00am March 12, 2020 8:22pmmeloxicam 7.5 mg oral tablet (3 sources)Nonsteroidal Anti-inflammatory DrugStart: 15-71-0654eccv 1 tablet by mouth twice daily as neededMeloxicam 7.5 mg tablet Active 7.5 MG PO Twice daily as needed December 08, 2024 12:00am Complies withdrug therapyMultiple Vitamin (multivitamin) tablet (6 sources)take 1 tablet by mouth in the morningMultiple Vitamin (multivitamin) tablet Take 1 tablet by mouth in the morning. ActiveMultivitamin (Daily Multi- Vitamin) tablet (20 sources)Start: 38-60-4605gsku 1 tablet by mouth once daily in the morning Multivitamin (Daily Multi-Vitamin) tablet Active 1 TAB PO Every morning December 19, 2023 12:00am Complies with drug therapyStart: 88-53-8340fhio 1 tablet by mouth once daily in the morningStart: 25-93-1925rngs 1 tablet by mouth once daily in the morningMultivitamin (Daily Multi-Vitamin) tablet Active 1 TAB PO Every morning December 18, 2023 11:00pmStart: 47-00-7177jbyb 1 tablet by mouth once daily in the morningMultivitamin (Daily Multi-Vitamin) tablet Active 1 TAB PO Every morning December 19, 2023 12:00amStart: 88-70-0766trym 1 tablet by mouth once dailyMultivitamin (Daily Multi-Vitamin) tablet Active 1 TAB PO Daily December 19, 2023 12:00amMultivitamin preparation (11 sources)take 1 tablet by mouth once dailyMulti Vitamin - 1 tablet Orally Once a day ActiveMultivitamin With Minerals (Hair,Skin And Nails) tablet (20 sources)Start: 63-03-6627yzvt 1 tablet by mouth once daily in the morning Multivitamin With Minerals (Hair,Skin And Nails) tablet Active 1 TAB PO Every morning March 06, 2024 2:25pm Complies with drug therapyStart: 77-56-2286beju 1 tablet by mouth once daily in the morningStart: 43-85-5645gjrb 1 tablet by mouth once daily in the morningMultivitamin With Minerals (Hair,Skin And Nails) tablet Active 1 TAB PO Every morning March 06, 2024 1:25pmStart: 03-06-2024 take 1 tablet by mouth once daily in the morningMultivitamin With Minerals (Hair,Skin And Nails) tablet Active 1 TAB PO Every morning March 06, 2024 2:25pmStart: 01-15-2024 End: 91-45-9349ivtz 1 tablet by mouth once daily in the morningMultivitamin With Minerals (Hair,Skin And Nails) tablet Discontinued 1 TAB PO Every morning January 14, 2024 11:00pm March 06, 2024 1:25pmStart: 01-15-2024 End: 44-35-9254ldrd 1 tablet by mouth once daily in the morningMultivitamin With Minerals (Hair,Skin And Nails) tablet Discontinued 1 TAB PO Every morning January 15, 2024 12:00am March 06, 2024 2:25pmStart: 61-29-9251agrw 1 tablet by mouth once daily in the morningMultivitamin With Minerals (Hair,Skin And Nails) tablet Active 1 TAB PO Every morning January 15, 2024 12:00amProAir HFA 108 (90 Base) MCG/ACT (11 sources)Start: 85-63-4872fwtj 2 puff(s) by inhalation every four hours as neededProAir HFA 108 (90 Base) MCG/ACT 2 puffs as needed Inhalation every 4 hrs for 90 days PRN Mar, ActiveStart: 63-96-0124bwjd 2 puff(s) by inhalation every four hours [...] oral tablet (20 sources)Opioid AgonistStart: 01-29-2024 End: 59-36-3841cgkl 1 tablet by mouth every four to six hours as needed for pain Acetaminophen-Codeine 300-30 mg tablet Discontinued 1 TAB PO EVERY 4-6 HOURS as needed for pain 20 5 0 January 29, 2024 12:00am February 13, 2024 3:12pm Umbilical hernia Umbilical hernia without obstruction or gangreneStart: 03-26-2018 End: 05-99-2828isua 1 tablet by mouth every six hours as needed for pain Acetaminophen-Codeine (Tylenol-Codeine #3) 300-30 mg tablet Discontinued 1 - 2 TAB PO Q6H as neededfor pain 30 5 0 March 26, 2018 12:00am March 30, 2018 12:00am March 31, 2018 12:02amDiffuse cystic mastopathy of right breastacetaminophen 325 mg / HYDROcodone bitartrate 5 mg oral tablet (20 sources)Opioid AgonistStart: 12-31-2023 End: 81-38-5842jtgl 1 tablet by mouth every four to six hours as needed for pain Hydrocodone-Acetaminophen 5-325 mg tablet Discontinued 1 TAB PO EVERY 4-6 HOURS as needed for Pain 28 7 0 December 31, 2023 February 13, 2024 3:12pm Contusion of multiple sites Unspecified multiple injuries, initial encounterStart: 12-19-2023 End: 83-00-2468utbn 1 tablet by mouth every four to six hours as needed for pain Hydrocodone-Acetaminophen 5-325 mg tablet Discontinued 1 TAB PO EVERY 4-6 HOURS as needed for Pain 28 10 0 December 19, 2023 December 19, 2023 9:39am Contusion of multiple sites Unspecified multiple injuries, initial encounterStart: 12-19-2023 End: 63-27-6829zhpu 1 tablet by mouth every four to six hours as needed for pain Hydrocodone-Acetaminophen 5-325 mg tablet Discontinued 1 TAB PO EVERY 4-6 HOURS as needed for Pain 28 7 0 December 19, 2023 December 19, 2023 12:03pm Contusion of multiple sites Unspecified multiple injuries, initial encounterStart: 12-17-2023 End: 86-37-1465xdtj 1 tablet by mouth every four to six hours as needed for pain Hydrocodone-Acetaminophen 5-325 mg tablet Discontinued 1 TAB PO EVERY 4-6 HOURS as needed for Pain 28 7 0 December 19, 2023 December 31, 2023 7:42am Contusion of multiple sites Unspecified multiple injuries, initial encounterStart: 04-24-2017 End: 20-23-6575kmpz 2 tablets by mouth every four to six hours as needed for painHydrocodone-Acetaminophen ([place]) 5-325 mg tablet Discontinued 2 TAB PO EVERY 4-6 HOURS as needed for pain 30 0 April 24, 2017 12:00am March 26, 2018 9:04amacetaminophen 325 mg / oxyCODONE hydrochloride 5 mg oral tablet (20 sources)Opioid AgonistStart: 11-01-2022 End: 93-70-0198esbi 1 tablet by mouth every six hours as needed for pain Oxycodone-Acetaminophen 5-325 mg tablet Discontinued 1 TAB PO Q6H as needed for pain 12 3 0 November 01, 2022 December 17, 2023 7:36am Epiploic appendagitis Other specified diseases of intestineAlbuterol Sulfate (Proventil Hfa) 90 mcg/actuation Hfa Aerosol Inhaler (20 sources)Start: 04-24-2017 End: 27-49-8160jztb 1 puff(s) by inhalation every four to six hours as needed for wheezingAlbuterol Sulfate (Proventil Hfa) 90 mcg/actuation Hfa Aerosol Inhaler Discontinued 1 PUFF INHALATION EVERY 4-6 HOURS as needed for Shortness Of Breath Or Wheezing April 24, 2017 12:00am November 2:03pmStart: 04-24-2017 End: 83-52-7044cqjk 1 puff(s) by inhalation every four to six hours as needed for wheezingAlbuterol Sulfate (Proventil Hfa) 90 mcg/actuation Hfa Aerosol Inhaler Discontinued 1 PUFF INHALATION EVERY 4-6 HOURS as needed for Shortness Of Breath Or Wheezing April 23, 2017 11:00pm November 1:03pmStart: 04-24-2017 End: 74-12-3873xzdp 1 puff(s) by inhalation every four to six hoursAlbuterol Sulfate (Proventil Hfa) 90 mcg/actuation Hfa Aerosol Inhaler Discontinued 1 PUFF INHALATION EVERY 4-6 HOURS April 24, 2017 12:00am December 19, 2023 2:03pmStart: 92-46-8475ojkr 1 puff(s) by inhalation every four to six hoursAlbuterol Sulfate (Proventil Hfa) 90 mcg/actuation Hfa Aerosol Inhaler Active 1 PUFF INHALATION EVERY 4-6 HOURS April 23, 2017 11:00pmStart: 27-22-7583xasp 1 puff(s) by inhalation every four to six hoursAlbuterol Sulfate (Proventil Hfa) 90 mcg/actuation Hfa Aerosol Inhaler Active 1 PUFF INHALATION EVERY 4-6 HOURS April 24, 2017 12:00amazithromycin 250 mg oral tablet (20 sources)Macrolide AntimicrobialStart: 11-30-2023 End: 33-96-2457Jttdulkoeegc (Zithromax) 250 mg tablet Discontinued 0 PO .COMPLEX 6 1 November 30, 2023 12:00am December 17, 2023 7:36am For 250 mg dose pack: take 500 mg today (day 1), then 250 mg for 4 days (days 2-5) POStart: 91-46-7221Glwfxefle Z-Hill 250 MG 2 tablets on the first day, then 1 tablet daily for 4 days Orally Once a dayfor 5 day(s) May, Activebetamethasone 1 mg/ml topical cream (20 sources)CorticosteroidStart: 12-19-2023 End: 93-00-0729Hktvfbhyvneso Valerate 0.1 % cream Discontinued 1 APPLIC TOPICAL Twice daily December 19, 2023 12:00amJun2023 2:16pm FreeTextSi application Externally Twice a day; Note: Source Status: Taking; Refills: 0; Qty: 45 Gram; Provider: Blake Green PStart: 12-19-2023 End: 22-49-1949Dszhojdxtwzfm Valerate Discontinued 1 APPLIC TOPICAL Twice daily December 19, 2023 12:00am December 27, 2023 2:16pm FreeTextSi application Externally Twice a day; Note: Source Status: Taking; Refills: 0; Qty: 45 Gram; Provider: Blake Green PStart: 94-22-5347Jzqazvgjaagpb Valerate 0.1 % 1 application Externally Twice a day Feb, ActiveStart: 03-21-2023 Betamethasone Valerate 0.1 % 1 application Externally Twice a day Feb, Activecephalexin 500 mg oral capsule (20 sources)Cephalosporin AntibacterialStart: 02-08-2021 End: 24-95-3429rkle 1 capsule by mouth four times dailyCephalexin 500 mg capsule Discontinued 500 MG PO Four times daily 40 10 0 February 08, 2021 12:00am November 01, 2022 10:30amcholecalciferol 0.025 mg oral capsule (20 sources)Vitamin DStart: 12-19-2023 End: 77-69-6845gknj 1 capsule by mouth once dailyCholecalciferol (Vitamin D3) 25 mcg (1,000 unit) capsule Discontinued 1 CAP PO Daily December 182:00am December 27, 2023 2:16pm FreeTextSi capsule Orally Once a day; Note: Source Status: Taking; Provider: Blake Green ( )diclofenac sodium 75 mg delayed release oral tablet (20 sources)Nonsteroidal Anti-inflammatory DrugStart: 12-19-2023 End: 18-23-0044vbgr 1 tablet by mouth twice dailyDiclofenac Sodium 75 mg tablet,delayed release (DR/EC) Discontinued 75 MG PO Twice daily December 19, 2023 12:00am December 27, 2023 2:17pmStart: 11-01-2022 End: 93-12-5333ctpl 1 tablet by mouth twice daily as needed for painDiclofenac Sodium 75 mg tablet,delayed release (DR/EC) Discontinued 75 MG PO Twice daily as needed for pain November 01, 2022 12:00am December 17, 2023 7:36amStart: 29-33-7352Wgzmeinx 2 % 2 pumps Externally Twice a day samples provided Feb, Activefurosemide 40 mg oral tablet (20 sources)Loop DiureticStart: 12-19-2023 End: 92-93-2978ngup 1 tablet by mouth once dailyFurosemide (Lasix) 40 mg tablet Discontinued 40 MG PO Daily December 19, 2023 12:00am December 27, 2023 2:17pm FreeTextSi tablet Orally Once a day; Note: Source Status: Continueprn; Provider: Blake Green PStart: 83-64-6502mipn 1 tablet by mouth every twenty-four hoursLasix 40 MG 1 tablet Orally Once a day prn Oct, ActiveLactobacillus Combination No.4 (Probiotic) 3 billion cell Capsule (20 sources)Start: 04-24-2017 End: 50-44-7120mfrh 3 capsules by mouth once dailyLactobacillus Combination No.4 (Probiotic) 3 billion cell Capsule Discontinued 3000 MMU CELLS PO Daily April 23, 2017 11:00pm March 26, 2018 8:04amStart: 04-24-2017 End: 82-04-1744zqyj 3 capsules by mouth once dailyLactobacillus Combination No.4 (Probiotic) 3 billion cell Capsule Discontinued 3000 MMU CELLS PO Daily April 24, 2017 12:00am March 26, 2018 9:04amLactobacillus Combination No.9 (Adult 50 Plus Probiotic) 4 billion cell capsule (20 sources)Start: 12-19-2023 End: 78-40-9897Nndzzfxqdvxvg Combination No.9 (Adult 50 Plus Probiotic) 4 billion cell capsule Discontinued PO 2023 11:00pm December 27, 2023 1:17pm Start: 12-19-2023 End: 34-69-9678Csnypmelpeeuw Combination No.9 (Adult 50 Plus Probiotic) 4 billion cell capsule Discontinued PO 2023 12:00am December 27, 2023 2:17pm levothyroxine sodium 0.088 mg oral tablet (20 sources)l-ThyroxineStart: 09-11-2023 End: 61-61-9532yvsd 1 tablet by mouth once dailyLevothyroxine 88 mcg tablet Discontinued 88 MCG PO Daily 90 December 19, 2023 2:08pm January 1442:28pm Start: 28-38-3894fson 1 tablet by mouth once daily in the morningSynthroid 88 MCG 1 tablet in the morning on an empty stomach Orally Once a day for 90 days *Dose change Feb, ActiveStart: 27-03-9233vryf 1 tablet by mouth once daily in the morningSynthroid 88 MCG 1 tablet in the morning on an empty stomach Orally Once a day for 90 days *Dose change Feb, ActiveStart: 04-21-2018 take 1 tablet by mouth once dailylevothyroxine (SYNTHROID) 75 mcg tablet Take 75 mcg by mouth once daily. 1 04/21/2018 ActiveStart: 46-50-9100nadn 1 tablet by mouth every twenty-four hoursSynthroid 75 MCG 1 tablet Orally Once a day Feb, ActiveStart: 04-24-2017 End: 93-89-7206sovu 3 tablets by mouth once dailyLevothyroxine 25 mcg Tablet Discontinued 75 MCG PO Daily April 24, 2017 12:00am December 19, 2023 2:04pm Start: 04-24-2017 End: 85-46-2700jggk 75 ug by mouth once dailyLevothyroxine Discontinued 75 MCG PO Daily April 24, 2017 12:00am December 19, 2023 2:04pmComment on above:Take 75 mcg by mouth once daily.meclizine hydrochloride 25 mg oral tablet (3 sources)AntiemeticStart: 12-08-2024 End: 88-89-8660zjhi 1 tablet by mouth every six hours as neededMeclizine 25 mg tablet Discontinued 25 MG PO Every 6 hours as needed for motion sickness 30 December 08, 2024 12:00am May 20, 2025 8:08amomeprazole 40 mg delayed release oral capsule (20 sources)Proton Pump InhibitorStart: 03-31-2020 End: 78-76-2336mpgo 1 capsule by mouth once daily in [...] tablet (20 sources)Serotonin-3 Receptor AntagonistStart: 02-08-2021 End: 08-77-1889pemu 1 tablet by mouth every six hours as needed for nausea and vomitingOndansetron 4 mg tablet,disintegrating Discontinued 4 MG PO Q6H as needed for nausea and vomiting 14 February 08, 2021 12:00am November 01, 2022 10:30amphenazopyridine hydrochloride 200 mg oral tablet (20 sources)Start: 02-08-2021 End: 83-35-8352gtvu 1 tablet by mouth three times daily as needed for pain Phenazopyridine (Pyridium) 200 mg tablet Discontinued 200 MG PO Three times daily as needed for pain 10 February 08, 2021 12:00am November 01, 2022 10:30am administer with a full glass of water with each mealmicroencapsulated potassium chloride 10 meq extended release oral tablet (20 sources)Start: 12-19-2023 End: 89-13-0835wgzt 1 tablet by mouth once dailyPotassium Chloride 10 mEq tablet,ER particles/crystals Discontinued 10 MEQ PO Daily December 19, 2023 12:00am December 27, 2023 2:18pmStart: 99-01-7008vsvq 1 tablet by mouth once daily as neededK-Dur 10 meq 1 tablet orally daily prn Oct, ActivepredniSONE 20 mg oral tablet (20 sources)Start: 11-30-2023 End: 77-17-9287Povwharora 20 mg tablet Discontinued 20 MG PO .COMPLEX 15 0 November 30, 2023 12:00am December 17, 2023 7:36am 20 mg orally BID X 5 DAYS, QD X 5 DAYS; Start: 81-16-6135gvii 1 tablet by mouth every twenty-four hourspredniSONE 20 MG 1 tablet Orally Once a day for 30 day(s) May, ActiveStart: 05-24-2023 predniSONE 20 MG 1 tablet by mouth twice a day for five days, then daily for five days Orally as directed May, ActivetraMADol hydrochloride 50 mg oral tablet (20 sources)Opioid AgonistStart: 06-08-2023 End: 00-93-8159Tfnukmqw 50 mg tablet Discontinued 50 MG PO December 19, 2023 12:00am January 15, 2024 2:27pmStart: 74-95-0714uefa 1 tablet by mouth every six hourstraMADol HCl 50 MG 1 tablet as needed Orally QID prn Jan, Active Problems Active Problems Problem ClassificationProblemDateDocumented DateEpisodic/ChronicAbdominal hernia (20 sources)Ventral hernia without obstruction or gangrene; Translations: [Umbilical hernia]Onset: 08-74-5359VcrbzskiDezgnzmay pain (20 sources)Right upper quadrant pain; Translations: [Liver pain]Onset: 51-82-8981LbejygmzBxvhg bronchitis (2 sources)Acute bronchitis, unspecifiedEpisodicAllergic reactions (17 sources)Hand eczema; Translations: [Dermatitis, unspecified]EpisodicAsthma (20 sources)Unspecified asthma, uncomplicated; Translations: [Asthma]Onset: [id number] mellitus without complication (20 sources)Hyperglycemia, unspecified; Translations: [Prediabetes]Onset: 45-31-7315DamziwgdXsjnazqga of lipid metabolism (20 sources)Hyperlipidemia; Translations: [Hyperlipidemia, unspecified]Onset: 10-17-2021 Resolved: 62-10-6212OhnzmbaA Codes: Fall (20 sources)Fall on same level; Translations: [Fall on same level, unspecified, initial encounter]07-12-5830DjunkopwH Codes: Natural/environment (1 source)Bitten or stung by nonvenomous insect and other nonvenomous arthropods, initial encounterEpisodicEsophageal disorders (20 sources)Gastroesophageal reflux disease; Translations: [Gastro-esophageal reflux disease without esophagitis]Onset: 04-20-2021 Resolved: 17-32-6729AplqptgYtkekmum of upper limb (7 sources)Closed fracture of phalanx of little finger; Translations: [Fracture of unspecified phalanx of leftlittle finger, subsequent encounter for fracture with routine healing]12-33-4667HrddcdeeIsyxuuwl of upper limb (20 sources)Elbow fracture; Translations: [Unspecified fracture of lower end of right humerus, initial encounter for closed fracture]12-34-7336Yfffqjbq Immunizations and screening for infectious disease (5 sources)Contact with and (suspected) exposure to other viral communicable diseases; Translations: [Exposureto viral disease]EpisodicMalaise and fatigue (6 sources)Asthenia; Translations: [Weakness]Onset: 10-17-2021 Resolved: 05-41-3743MhotkkkwSgjdfnmyt disorders (16 sources)Excessive and frequent menstruation; Translations: [Excessive and frequent menstruation with regular cycle]ChronicNeoplasms of unspecified nature or uncertain behavior (20 sources)Neoplastic disease of uncertain behavior; 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, unspecified]Onset: 10-17-2021 Resolved: 06-46-2977XlpkrvzuLbpjlsjoxauf breast conditions (20 sources)Fibrocystic disease of breast; Translations: [Diffuse cystic mastopathy of unspecified breast]89-23-1874XjtqodwRncclzpwwvxd breast conditions (20 sources)Cyst of breast; Translations: [Solitary cyst of right breast]Onset: 871559-63-2047ZdgrrvmyKodgezdcfqi chest pain (20 sources)Chest pain; Translations: [Chest pain, unspecified]Onset: 10-17-2021 Resolved: 59-66-8826SirksmvbSzcj wounds of extremities (20 sources)Laceration of left knee; Translations: [Laceration without foreign body, left knee, initial encounter]24-56-8820FzlbadlaHftou aftercare (1 source)Other long chain beamer (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 therapy; Translations: [OTH ECHOCARDIOGRAPHY TECHNOLOGIST CURRENT DRUG THERAPY]Onset: 70-65-2970BjcznbafFtxdr aftercare (5 sources)Removal of sutures done; Translations: [...] [Sinus, fistula and cyst of branchial cleft]Onset: 398081-21-4269UrvzbixNrkzk connective tissue disease (5 sources)Bilateral plantar fasciitis; Translations: [Plantar fascial fibromatosis]EpisodicOther connective tissue disease (4 sources)Foot pain; Translations: [Pain in right foot]62-66-4163LrensnpyZbpbx connective tissue disease (4 sources)Pain in both feet; Translations: [Pain in right foot]06-10-2024 EpisodicOther gastrointestinal disorders (17 sources)Heartburn; Translations: [Heartburn]EpisodicOther gastrointestinal disorders (20 sources)Epiploic appendagitis; Translations: [Other specified diseases of intestine]64-77-5182FozvtergZgvun gastrointestinal disorders (1 source)Change in bowel habitEpisodicOther gastrointestinal disorders (3 sources)Diarrhea, unspecified; Translations: [Diarrhea]85-79-9317Fjqyjtvf Other injuries and conditions due to external causes (20 sources)Contusion of multiple sites; Translations: [Unspecified multiple injuries, initial encounter]53-82-6464XegownxcAugcv liver diseases (1 source)Other specified diseases of liver; Translations: [OTHER SPECIFIED DISEASES OF LIVER]Onset: 25-27-5054NzdifvvUwwiu liver diseases (20 sources)Steatosis of liver; Translations: [Fatty (change of) liver, not elsewhere classified]85-04-4285QucdhpqFkjsm liver diseases (17 sources)Lesion of liver; Translations: [Liver disease, unspecified]Chronic Other liver diseases (2 sources)Liver disease, unspecified; Translations: [Liver lesion K76.9]Onset: 04-20-2021 Resolved: 47-49-9690FpwnhsjKesoq liver diseases (1 source)Fatty (change of) liver, not elsewhere classified; Translations: [Other chronic nonalcoholic liver disease]59-72-6179UtmstsbXxgqb lower respiratory disease (5 sources)Snoring; Translations: [Snoring]EpisodicOther lower respiratory disease (5 sources)Dyspnea; Translations: [Shortness of breath]EpisodicOther nervous system disorders (6 sources)Chronic pain; Translations: [Other chronic pain]Onset: 01-25-2023 62-68-9316HgbqdawUlubr non-traumatic joint disorders (20 sources)Pain in right knee; Translations: [Pain in joint, lower leg]Onset: 906041-31-5797NxasionkWbynb non-traumatic joint disorders (5 sources)Swollen ankle region; Translations: [Effusion, right ankle]Episodic Other non-traumatic joint disorders (5 sources)Effusion of joint of left ankle; Translations: [Effusion, left ankle] EpisodicOther non-traumatic joint disorders (1 source)Pain in left hipEpisodicOther non-traumatic joint disorders (20 sources)Pain in elbow; Translations: [Pain in right elbow]64-02-3794Bukjiisn Other non-traumatic joint disorders (14 sources)Pain in right elbow; Translations: [Pain in joint, upper arm] 56-81-6267JflintkkRysxa nutritional; endocrine; and metabolic disorders (17 sources)Body mass index 30+ - obesity; Translations: [Body mass index (BMI) 31.0-31.9, adult]ChronicOther nutritional; endocrine; and metabolic disorders (1 source)Body mass index (BMI) 31.0-31.9, adult; Translations: [BMI 31.0- 31.9,adult Z68.31]Onset: 04-20-2021 Resolved: 47-57-5351KsgsdsjImten nutritional; endocrine; and metabolic disorders (5 sources)Weight gain; Translations: [Abnormal weight gain]EpisodicOther nutritional; endocrine; and metabolic disorders (5 sources)Overweight in adulthood with body mass index of 25 or more but less than 30; Translations: [Body mass index (BMI) 27.0-27.9, adult]09-09-2024 EpisodicOther nutritional; endocrine; and metabolic disorders (2 sources)Body mass index (BMI) 27.0-27.9, adult; Translations: [Body Mass Index 27.0-27.9, adult]94-52-7789FdmfaembZhwus screening for suspected conditions (not mental disorders or infectious disease) (18 sources)Mammography abnormal; Translations: [Other abnormal and inconclusive findings on diagnostic imagingof breast]Onset: 34-14-5734YuhkaoeeWvqnv skin disorders (5 sources)Mass of neck; Translations: [Localized swelling, mass and lump, neck] EpisodicOther skin disorders (17 sources)Epidermoid cyst; Translations: [Epidermal cyst]EpisodicOther skin disorders (4 sources)Senile hyperkeratosis; Translations: [Other seborrheic keratosis] EpisodicOther skin disorders (13 sources)Seborrheic keratosis; Translations: [Other seborrheic keratosis] EpisodicOther skin disorders (1 source)Other seborrheic keratosisEpisodicOther skin disorders (7 sources)Mass of body ubgsfergp14-69-8524GacdmmwpTotkx skin disorders (8 sources)Sebaceous cyst of skin; Translations: [Sebaceous cyst]Onset: 171258-21-8034YdefmmroLjijz upper respiratory disease (5 sources)Respiratory tract congestion; [...] dependence; Translations: [PERSONAL HISTORY OF NICOTINE DEPEND]Onset: 64-53-8870WqqjicfyInkixxybeyo; intervertebral disc disorders; other back problems (20 sources)Degeneration of lumbosacral intervertebral disc; Translations: [Other intervertebral disc degeneration, lumbosacral region]ChronicSpondylosis; intervertebral disc disorders; other back problems (2 sources)Radiculopathy, lumbar region; Translations: [Lumbosacral radiculopathy]EpisodicThyroid disorders (20 sources)Hypothyroidism; Translations: [Hypothyroidism, unspecified]Onset: 10-17-2021 Resolved: 55-33-4707GdsnyfpGrhbannthxhx (2 sources)M79.671 - Pain in right foot,M79.672 - Pain in left footUrinary tract infections (20 sources)Pyelonephritis; Translations: [Tubulo-interstitial nephritis, not specified as acute or chronic]27-01-7359Obxxbfsa Past or Other Problems Problem ClassificationProblemDateDocumented DateEpisodic/ChronicOther connective tissue disease (9 sources)Pain in right foot; Translations: [Pain in right foot]Onset: 627982-35-5352QgcxmsccJxlsx connective tissue disease (1 source)Pain in left arm; Translations: [Arm pain, left M79.602]Onset: 04-20-2021 Resolved: 68-21-8015RmhfljziFnyor connective tissue disease (6 sources)Peroneal tendinitis; Translations: [Peroneal tendinitis, unspecified leg]Onset: 779673-59-3950UthowudiJuxyj connective tissue disease (2 sources)Pain in right foot; Translations: [Pain in limb]Onset: 05-19-2024 57-56-9830OsmfvcyxXimty connective tissue disease (1 source)Plantar fascial fibromatosis; Translations: [Plantar fascial fibromatosis]Onset: 36-07-7271EhprxezcLhwcm skin disorders (1 source)Other hypertrophic disorders of the skinOnset: 10-17-2021 Resolved: 65-35-4188GpotomezWctzz skin disorders (1 source)Sebaceous cyst; Translations: [Sebaceous cyst]Onset: 09-29-2024 Episodic Results Test NameValueInterpretationReference LvqvrNinqpkrkL9O with Estimated Average Gluon 42-31-1237Qpmisyi [Mass/Vol]117 mg/dLNoDosher Memorial Hospital [facility] Comment on above:Result Comment: PERFORMED BY: [facility] [address] [place] [address] PATHOLOGIST [address] PRESSMAN SAURABH JOHNSON M.D.Performed By: #### A1C WT eA, CBC, T4F, LIPID, CMP, TSH3 ####[address] [place] [address] USAAlanine aminotransferase [Enzymatic activity/volume] in Serum or PlasmaOrdered By: Peter Ahumada on 10-74-9286KUD [Catalytic activity/Vol]6 U/LLow7-52Southview Medical CenterComment on above:Performed By: #### A1C WTH eA, CBC, T4F, LIPID, CMP, TSH3 ####[address] [address] USAAlbumin [Mass/volume] in Serum or Plasma by Bromocresol green (BCG) dye binding methoOrdered By: Peter Ahumada on 55-14-5923Svnipoz BCG dye [Mass/Vol]3.9 g/dL3.5-5.7FMercy Health Defiance HospitalAlkaline phosphatase [Enzymatic activity/volume] in Serum or PlasmaOrdered By: Peter Ahumada on 88-57-1251SVR [Catalytic activity/Vol]46 U/S52-587YghuirrwzSouthview Medical CenterComment on above:Performed By: #### A1C WTH eA, CBC, T4F, LIPID, CMP, TSH3 ####[address] [address] USAAspartate aminotransferase [Enzymatic activity/volume] in Serum or PlasmaOrdered By: Peter Ahumada on 82-51-9274XKH [Catalytic activity/Vol]11 U/MThi89-11AnvbcdcxxSouthview Medical CenterComment on above:Performed By: #### A1C WTH eA, CBC, T4F, LIPID, CMP, TSH3 ####[facility] [address] [place] [id number] USABasophils [#/volume] in Blood by Automated countOrdered By: Peter Ahumada on 23-83-0301Uttmihyao (Bld) [#/Vol]0.1 10*3/uL0.0-0.2FMercy Health Defiance HospitalComment on above:Result Comment: PERFORMED BY: [facility] [address] [place] [address] PATHOLOGIST [address] PR[address]MAN SAURABH JOHNSON M.D.Performed By: #### A1C WTH eA, CBC, T4F, LIPID, CMP, TSH3 #### [facility] [address] [place] [address] USABasophils/100 leukocytes in Blood by Automated count Ordered By: Peter Ahumada on 70-87-1694Xjjftsvym/100 WBC (Bld)1.3 %.Southview Medical CenterComment on above:Performed By: #### A1C WTH eA, CBC, T4F, LIPID, CMP, TSH3 #### [facility] [address] [place] [address] USABilirubin.total [Mass/volume] in Serum or PlasmaOrdered By: Peter Ahumada on 74-02-7030Kbtrhcovu [Mass/Vol]0.4 mg/dL0.3-1.0Southview Medical CenterComment on above:Performed By: #### A1C WTH eA, CBC, T4F, LIPID, CMP, TSH3 ####[facility] [address] [place] [id number] USABlood estimated average glucose determination by estimation from glycated hemoglobinOrdered By: Peter Ahumada on 67-40-0478Jtnobna glucose Estimated from glycated hemoglobin (Bld) [Mass/Vol]117 mg/dLSouthview Medical CenterCalcium [Mass/volume] in Serum or PlasmaOrdered By: Peter Ahumada on 28-39-5470Doyejrq [Mass/Vol]9.0 mg/dL8.6-10.3[facility] Comment on above:Performed By: #### A1C WT eA, CBC, T4F, LIPID, CMP, TSH3 ####[facility] [place] [address] USACarbon dioxide, total [Moles/volume] in Serum or PlasmaOrdered By: Peter Ahumada on 99-12-6068QL8 [Moles/Vol]31.8 mmol/LHigh21.0-31.0South[facility] Medical CenterComment on above:Performed By: #### A1C WT eA, CBC, T4F, LIPID, CMP, TSH3 ####[address] [place] [address] [place] Chloride [Moles/volume] in Serum or PlasmaOrdered By: Peter Ahumada on 05-15-2025 Chloride [Moles/Vol]104 mmol/T56-268WzoxlogzxSouthview Medical CenterComment on above:Performed By: #### A1C WT eA, CBC, T4F, LIPID, CMP, TSH3 ####[address] [address] USACholesterol [Mass/volume] in Serum or PlasmaOrdered By: Peter Ahumada on 52-18-0645Cvzpxoomjfb [Mass/Vol]215 mg/qNUdxe902-382ZgrkypkbpSouthview Medical CenterComment on above: Chol less than 200 mg/dl low riskChol 201-239 mg/dl borderline riskChol 240 mg/dl and greater high riskResult Comment: Chol less than 200 mg/dl low risk Chol 201-239 mg/dl borderline risk Chol 240 mg/dl and greater high riskPerformed By: #### A1C WT eA, CBC, T4F, LIPID, CMP, TSH3 ####[address] [address] USACholesterol in HDL [Mass/volume] in Serum or PlasmaOrdered By: Peter Ahumada on 59-79-6424Cfxieajtnuu in HDL [Mass/Vol]57 mg/hA64-97IzkrbzufbSouthview Medical CenterComment on above:HDL CHOL ATP-III CLASSIFICATION Cardiovascular RiskHDL > or equal to 60 mg/dL LOWHDL < 40 mg/dL HIGHResult Comment: HDL CHOL ATP-III CLASSIFICATION Cardiovascular Risk HDL > or equal to 60 mg/dL LOW HDL < 40 mg/dL HIGHPerformed By: #### A1C WTH eA, CBC, T4F, LIPID, CMP, TSH3 ####[facility] [address] [place] [address] [place] Cholesterol in LDL Calc [Mass/Vol]Ordered By: Peter Ahumada on 05-15-2025 Cholesterol in LDL [Mass/Vol]135 mg/dLHigh0-100[facility] Comment on above:LDL ATP III CLASSIFICATIONLDL less than 100 mg/dL OptimalLDL 100-129 mg/dL Near or above mkwyeodSYQ262-216 mg/dL Borderline highLDL 160-189 mg/dL HighLDL greater than 189 mg/dL Very highCholesterol in VLDL Calc [Mass/Vol]Ordered By: Peter Ahumada on 29-31-2860Ptgibhporwe in VLDL [Mass/Vol]23 mg/dLSouthview Medical CenterComplete Blood Count Auto Diffon 65-48-7221Tviv Corpuscular HGB Conc33.8 g/zAUuhfwo31.0-35.0The [facility] Physician GroupComment on above:Performed By: #### A1C WT eA, CBC, T4F, LIPID, CMP, TSH3 #### [facility] [address] [place] [address] USANRBC%0.1 /100{WBC}Normal0-0.5The [facility]ician [facility] Comment on above:Performed By: #### A1C WT eA, CBC, T4F, LIPID, CMP, TSH3 #### [facility] [address] [place] [address] USAWhite Blood Count4.9 [CFU]/mLNormal3.8-11.6The [facility] Physician GroupComment on above:Performed By: #### A1C WTH eA, CBC, T4F, LIPID, CMP, TSH3 #### [facility] [address] [place] [address] USAComprehensive Metabolic Panelon 17-38-3649Ekzland [Mass/Vol]3.9 g/dLNormal3.5-5.7The [facility] Physician GroupComment on above: Performed By: #### A1C WTH eA, CBC, T4F, LIPID, CMP, TSH3 ####[facility] [place] [address] USAGFR/1.73 sq M.predicted MDRD (S/P/Bld) [Vol rate/Area]mL/min/{1.73_m2}NormalThe [facility] Comment on above:Performed By: #### A1C WTH eA, CBC, T4F, LIPID, CMP, TSH3 ####[facility] [place] [address] [place] Creatinine [Mass/volume] in Serum or PlasmaOrdered By: Peter Ahumada on 05-15-2025 Creatinine [Mass/Vol]0.57 mg/dLLow0.60-1.20[facility] Comment on above:Performed By: #### A1C WTH eA, CBC, T4F, LIPID, CMP, TSH3 ####[facility] [place] [address] [place] Eosinophils [#/volume] in Blood by Automated countOrdered By: Peter Ahumada on 65-98-3523Mmsusvgdnjh (Bld) [#/Vol]0.1 10*3/uL0.0-0.45South[facility] Medical CenterComment on above:Performed By: #### A1C WTH eA, CBC, T4F, LIPID, CMP, TSH3 #### [facility] [address] [place] [address] USAEosinophils/100 leukocytes in Blood by Automated count Ordered By: Peter Ahumada on 10-26-3753Wwiateavhjf/100 WBC (Bld)1.9 %.[facility]view Medical CenterComment on above:Performed By: #### A1C WTH eA, CBC, T4F, LIPID, CMP, TSH3 #### [facility] [address] [place] [address] USAErythrocyte distribution width [Ratio] by Automated count Ordered By: Peter Ahumada on 95-16-2158Zickufrzvva distribution width (RBC) [Ratio] 13.5 %11.9-15.3FMercy Health Defiance HospitalComment on above:Performed By: #### A1C WTH eA, CBC, T4F, LIPID, CMP, TSH3 #### [facility] [address] [place] [address] USAErythrocytes [#/volume] in Blood by Automated countOrdered By: Peter Ahumada on 02-80-9407MQQ (Bld) [#/Vol]4.59 10*6/uL3.60-5.00Southview Medical CenterComment on above:Performed By: #### A1C WTH eA, CBC, T4F, LIPID, CMP, TSH3 #### [facility] [address] [place] [address] USAGlomerular filtration rate [Volume Rate/Area] in Serum, Plasma or Blood by CreatinineOrdered By: Peter Ahumada on 30-50-2143Sixmbgwiuk filtration rate [Volume Rate/Area] in Serum, Plasma or Blood by Creatinine> 60.0 mL/MinSouthview Medical CenterGlucose [Mass/volume] in Serum or Plasma Ordered By: Peter Ahumada on 97-50-7182Jtwxugv [Mass/Vol]94 mg/pE01-833FuoghghvoSouthview Medical CenterComment on above:ADA recommended reference rangeRandom Glucose Reference [...] WTH eA, CBC, T4F, LIPID, CMP, TSH3 ####[facility] [address] [place] [address] USAHematocrit [Volume Fraction] of Blood by Automated countOrdered By: Peter Ahumada on 00-24-7839Emzenvrkgl (Bld) [Volume fraction]39.6 %34.0-46.4FMercy Health Defiance HospitalComment on above:Performed By: #### A1C WTH eA, CBC, T4F, LIPID, CMP, TSH3 #### [facility] [address] [place] [address] USAHemoglobin A1c/Hemoglobin.total in BloodOrdered By: Peter Ahumada on 97-00-9925FyX5m (Bld) [Mass fraction]5.7 %High4.3-5.6FMercy Health Defiance HospitalComment on above:Increased risk for diabetes: 5.7 - 6.4diabetes: >6.4glycemic control for adults with diabetes: <7.0Result Comment: Increased risk for diabetes: 5.7 - 6.4 diabetes: >6.4 glycemic control for adults with diabetes: <7.0Performed By: #### A1C WTH eA, CBC, T4F, LIPID, CMP, TSH3 ####[facility] [address] [place] [address] USAHemoglobin [Mass/volume] in BloodOrdered By: Peter Ahumada on 14-31-6477Asoxivuwfd (Bld) [Mass/Vol]13.4 g/dL11.8-15.4FMercy Health Defiance HospitalComment on above:Performed By: #### A1C WTH eA, CBC, T4F, LIPID, CMP, TSH3 #### [facility] [address] [place] [address] USALeukocytes [#/volume] corrected for nucleated erythrocytes in Blood by Automated counOrdered By: Peter Ahumada on 14-97-8974IDR corrected for nucl RBC Auto (Bld) [#/Vol]4.9 10*3/uL3.8-11.6FMercy Health Defiance Hospital Leukocytes [#/volume] in Blood by Automated countOrdered By: Peter Ahumada on 79-40-4044RZG (Bld) [#/Vol]4.9 10*3/uL3.8-11.6FMercy Health Defiance Hospital Comment on above:Performed By: #### A1C WTH eA, CBC, T4F, LIPID, CMP, TSH3 #### [facility] [address] [place] [address] USALipid Panelon 19-14-8629UDP Cholesterol,Cfoakcqxjt671 mg/dLHigh0-100The [facility] Physician GroupComment on above:Result Comment: LDL ATP III CLASSIFICATION LDL less than 100 mg/dL Optimal LDL 100-129 mg/dL Near or above optimal LDL 130-159 mg/dL Borderline high LDL 160-189 mg/dL High LDL greater than 189 mg/dL Very highPerformed By: #### A1C WTH eA, CBC, T4F, LIPID, CMP, TSH3 ####[facility] [place] [address] USATriglyceride w/Sirvgm204 mg/dLNormal0-149The [facility] Comment on above:Result Comment: TRIG ATP III CLASSIFICATION TRIG less than 150 mg/dL Normal TRIG 150-199 mg/dL Borderline high TRIG 200-500 mg/dL High TRIG greater than 500 mg/dL Very high Standard traceable to the Center for Disease Conrtrol and Prevention (CDC) test method.Performed By: #### A1C WTH eA, CBC, T4F, LIPID, CMP, TSH3 ####[facility] [place] [id number] USAVLDL NAWYOCUVOTE12 mg/dLNormalThe [facility]ly [facility] Physician GroupComment on above: Performed By: #### A1C WTH eA, CBC, T4F, LIPID, CMP, TSH3 ####[facility] [place] [address] USALymphocytes [#/volume] in Blood by Automated countOrdered By: Peter Ahumada on 37-02-6856Pnzekoyewpc (Bld) [#/Vol]1.7 10*3/uL1.00-4.8South[facility] Medical CenterComment on above: Performed By: #### A1C WTH eA, CBC, T4F, LIPID, CMP, TSH3 #### [facility] [address] [place] [address] USALymphocytes/100 leukocytes in Blood by Automated count Ordered By: Peter Ahumada on 52-69-8651Qelhntyguya/100 WBC (Bld)33.8 %.[facility] Medical CenterComment on above:Performed By: #### A1C WTH eA, CBC, T4F, LIPID, CMP, TSH3 #### [facility] [address] [place] [address] USAMCH [Entitic mass] by Automated countOrdered By: Peter Ahumada on 47-11-1931JMK (RBC) [Entitic mass]29.2 pg24.7-34.3FMercy Health Defiance HospitalComment on above:Performed By: #### A1C WTH eA, CBC, T4F, LIPID, CMP, TSH3 #### [facility] [address] [place] [address] USAHC Auto (RBC) [Mass/Vol]Ordered By: Peter Ahumada on 62-75-8927PNBT (RBC) [Mass/Vol]33.8 g/dL32.0-35.0Southview Medical CenterMCV [Entitic volume] by Automated countOrdered By: Peter Ahumada on 69-75-1559OPK (RBC) [Entitic vol]86.3 sX62-750QwiyssoqvSouthview Medical Center Comment on above:Performed By: #### A1C WTH eA, CBC, T4F, LIPID, CMP, TSH3 #### [facility] [address] [place] [address] USAMonocytes [#/volume] in Blood by Automated countOrdered By: Peter Ahumada on 11-64-1754Kkjnlvfss (Bld) [#/Vol]0.4 10*3/uL0.0-0.8[facility] Medical CenterComment on above:Performed By: #### A1C WTH eA, CBC, T4F, LIPID, CMP, TSH3 #### [place] [address] USAMonocytes/100 leukocytes in Blood by Automated count Ordered By: Peter Ahumada on 79-43-6056Ispkrlpbn/100 WBC (Bld)8.6 %.[facility] Medical CenterComment on above:Performed By: #### A1C WTH eA, CBC, T4F, LIPID, CMP, TSH3 #### [facility] [address] [place] [address] USANeutrophils [#/volume] in Blood by Automated countOrdered By: Peter Ahumada on 70-41-2009Dmwltcbafpz (Bld) [#/Vol]2.7 10*3/uL1.8-7.7FMercy Health Defiance HospitalComment on above:Performed By: #### A1C WTH eA, CBC, T4F, LIPID, CMP, TSH3 #### [facility] [address] [place] [id number] USANeutrophils/100 leukocytes in Blood by Automated count Ordered By: Peter Ahumada on 02-18-7768Bpugvzybkka/100 WBC (Bld)54.4 %.[facility] Medical CenterComment on above:Performed By: #### A1C WTH eA, CBC, T4F, LIPID, CMP, TSH3 #### [facility] [address] [place] [id number] USANo Panel InformationOrdered By: Peter Ahumada on 05-15-2025 Pharm[facility] [Presence] in Blood by Automated countOrdered By: Peter Ahumada on 61-57-9063Blbeyzvgf RBC Auto Ql (Bld)0.1 /100{WBC}0-0.5FMercy Health Defiance HospitalPlatelet mean volume [Entitic volume] in Blood by Automated count Ordered By: Peter Ahumada on 45-31-1387Iwhnupdc mean volume (Bld) [Entitic vol]7.1 fL6.3-10.7FMercy Health Defiance HospitalComment on above:Performed By: #### A1C WTH eA, CBC, T4F, LIPID, CMP, TSH3 #### [facility] [address] [place] [id number] USAPlatelets [#/volume] in Blood by Automated countOrdered By: Peter Ahumada on 46-17-1725Oobsqttvs (Bld) [#/Vol]314 10*3/lC587-292XtualuzftSouthview Medical CenterComment on above:Performed By: #### A1C WTH eA, CBC, T4F, LIPID, CMP, TSH3 #### [facility] [address] [place] [id number] USAPotassium [Moles/volume] in Serum or PlasmaOrdered By: Peter Ahumada on 68-93-8309Xnfrcmtkp [Moles/Vol]4.3 mmol/L3.5-5.1FMercy Health Defiance HospitalComment on above:Performed By: #### A1C WTH eA, CBC, T4F, LIPID, CMP, TSH3 ####[place] [address] USAProtein [Mass/volume] in Serum or PlasmaOrdered By: Peter Ahumada on 05-15-2025 Protein [Mass/Vol]6.8 g/dL6.4-8.9[facility] Medical CenterComment on above:Performed By: #### A1C WTH eA, CBC, T4F, LIPID, CMP, TSH3 ####[place] [id number] USASerum globulin measurement by calculation (mass/volume)Ordered By: Peter Ahumada on 05-15-2025 Globulin (S) [Mass/Vol]2.9 g/dLSouthview Medical CenterComment on above:Performed By: #### A1C WTH eA, CBC, T4F, LIPID, CMP, TSH3 ####[place] [address] USASerum or plasma albumin/globulin mass ratioOrdered By: Peter Ahumada on 01-86-5692Pdajeka/Globulin [Mass ratio]1.3 {ratio}[facility] Medical CenterComment on above: Performed By: #### A1C WTH eA, CBC, T4F, LIPID, CMP, TSH3 ####[place] [address] USASerum or plasma anion gap determinationOrdered By: Peter Ahumada on 90-03-7840Lstey gap [Moles/Vol]8.5 mmol/L 6.0-15.0[facility] Medical CenterComment on above:Performed By: #### A1C WTH eA, CBC, T4F, LIPID, CMP, TSH3 ####[place] [id number] USASerum or plasma total cholesterol/high density lipoprotein (HDL) cholesterol mass ratOrdered By: Peter Ahumada on 05-15-2025 Cholesterol.total/Cholesterol in HDL [Mass ratio]3.8 {ratio}<5.0[facility] Medical CenterComment on above:Performed By: #### A1C WTH eA, CBC, T4F, LIPID, CMP, TSH3 ####[place] [address] [place] [id number] USASodium [Moles/volume] in Serum or PlasmaOrdered By: Peter Ahumada on 94-68-3617Imqbdd [Moles/Vol]140 mmol/M951-134SstfxsdxuSouthview Medical Center Comment on above:Performed By: #### A1C [facility] eA, CBC, T4F, LIPID, CMP, TSH3 ####[place] [id number] [facility] Thyrotropin [Units/volume] in Serum or PlasmaOrdered By: Peter Ahumada on 44-25-5259PLW Qn0.96 m[IU]/L0.45-5.33Southview Medical CenterComment on above:Result Comment: PERFORMED BY: [facility] [address] [place] [address] PATHOLOGIST 2ND PRESSMAN SAURABH JOHNSON M.D.Performed By: #### A1C [facility] eA, CBC, T4F, LIPID, CMP, TSH3 ####[place] [id number] [facility] Thyroxine (T4) free [Mass/volume] in Serum or PlasmaOrdered By: Peter Ahumada on 40-04-9850Olag T4 [Mass/Vol]0.82 ng/dL0.61-1.12[facility] Comment on above:Performed By: #### A1C [facility] eA, CBC, T4F, LIPID, CMP, TSH3 ####[place] [id number] [facility] Triglyceride [Mass/volume] in Serum or PlasmaOrdered By: Peter Ahumada on 06-80-3941Kxuivvjvdjbu [Mass/Vol]117 mg/dL0-149[facility] Comment on above:TRIG ATP III CLASSIFICATIONTRIG less than 150 mg/dL NormalTRIG 150-199 mg/dL Borderline highTRIG 200-500 mg/dL High TRIG greater than 500 mg/dL Very highStandard traceable to the Center for Disease Conrtrol and Prevention (CDC) test method.Urea nitrogen [Mass/volume] in Serum or PlasmaOrdered By: Peter Ahumada on 74-40-6459Yvne nitrogen [Mass/Vol]13 mg/dL02-13[facility] Medical CenterComment on above:Performed By: #### A1C [facility] eA, CBC, T4F, LIPID, CMP, TSH3 ####[facility] [address] [place] [id number] USAMM screening mammo BI w/CADon 19-96-3525FQ screening mamm[facility] [address] [place], [place] [address] Mammography Report Signed Patient: Darling Khanna MR#: [id number] : 1980 Acct:[id number] Age/Sex: 44 / F Adm Date: 01/27/25 Loc: ID Room: Type: [facility] Attending Dr: Peter Ahumada DO Ordering Provider: Peter Ahumada DO Date of Service: 01/27/25 Procedure(s): MM screening mammo BI w/CAD Accession Number(s): ([id number]) MM/MM screening mammo BI w/CAD: Z12.39 - [...] Osmani Stovall DO 01/27/2559 Signed By: 01/27/[address] [place] [address] Physician GroupMammography reportOrdered By: Osmani Stovall on 71-47-7919Podfojfkrd imaging [facility] [address] [place] [address] Mammography Report Signed Patient: Darling Khanna MR#: [id number] : 1980 Acct:[id number] Age/Sex: 44 / F Adm Date: 5 Loc: ID Room: Type: [facility] Attending Dr: Peter Ahumada DO Ordering Provider: Peter Ahumada DO Date of Service: 01/27/25 Procedure(s): MM screening mammo BI w/CAD Accession Number(s): ([id number]) MM/MM screening mammo BI w/CAD: Z12.39 - Encounter for other screening for malignant neop... Copies to: Peter Ahmuada DO~ BILATERAL Screening Full Field digital mammogram [...] DO 01/27/25 0859 Signed By: 01/27/25 0902 [facility] CenterA1C with Estimated Average Gluon 12-05-2024 Glucose [Mass/Vol]117 mg/dLNoDosher Memorial Hospital Physician GroupComment on above: Result Comment: PERFORMED BY: [place] [address] PATHOLOGIST 2ND PRESSMAN PADILLA LYMAN M.D.Performed By: #### TSH3, CBC, A1C WTH eA, LIPID, CMP, T4F #### [facility] [address] [place], [place] [id number] USAAlanine aminotransferase [Enzymatic activity/volume] in Serum or PlasmaOrdered By: Peter Ahumada on 31-04-5231VSK [Catalytic activity/Vol]6 U/LLow7-52[facility] Medical CenterComment on above:Performed By: #### TSH3, CBC, A1C WTH eA, LIPID, CMP, T4F #### [facility] [address] [place] [address] USAAlbumin [Mass/volume] in Serum or Plasma by Bromocresol green (BCG) dye binding methoOrdered By: Peter Ahumada on 10-43-5735Qhatbui BCG dye [Mass/Vol]3.7 g/dL3.5-5.7FMercy Health Defiance HospitalAlkaline phosphatase [Enzymatic activity/volume] in Serum or PlasmaOrdered By: Peter Ahumada on 36-12-4592KIC [Catalytic activity/Vol]42 U/AZxquxe75-645RdsvphyctSouthview Medical CenterComment on above:Performed By: #### TSH3, CBC, A1C WTH eA, LIPID, CMP, T4F #### [facility] [address] [place] [address] USAAspartate aminotransferase [Enzymatic activity/volume] in Serum or PlasmaOrdered By: Peter Ahumada on 77-23-6990OSO [Catalytic activity/Vol] 12 U/BTwr45-71NodbtkgkkSouthview Medical CenterComment on above:Performed By: #### TSH3, CBC, A1C WTH eA, LIPID, CMP, T4F #### [facility] [address] [place] [address] USABasophils [#/volume] in Blood by Automated countOrdered By: Peter Ahumada on 02-53-7846Ryregusbx (Bld) [#/Vol]0.1 10*3/uLNormal0.0-0.2 [facility] Medical CenterComment on above:Result Comment: PERFORMED BY: [place] [address] PATHOLOGIST 2ND PRESSMAN PADILLA LYMAN M.D.Performed By: #### TSH3, CBC, A1C WTH eA, LIPID, CMP, T4F #### [place] [id number] USABasophils/100 leukocytes in Blood by Automated count Ordered By: Peter Ahumada on 06-88-3793Pwmxdfaii/100 WBC (Bld)0.8 %Normal.Southview Medical CenterComment on above:Performed By: #### TSH3, CBC, A1C WTH eA, LIPID, CMP, T4F #### [place] [address] USABilirubin.total [Mass/volume] in Serum or PlasmaOrdered By: Peter Ahumada on 32-27-1145Fzhlgdygt [Mass/Vol]0.3 mg/dLNormal0.3-1.0[facility] Medical CenterComment on above:Performed By: #### TSH3, CBC, A1C WTH eA, LIPID, CMP, T4F #### [facility] [address] [place], [place] [address] USABlood estimated average glucose determination by estimation from glycated hemoglobinOrdered By: Peter Ahumada on 12-56-9624Elzlqqa glucose Estimated from glycated hemoglobin (Bld) [Mass/Vol]117 mg/dLSouthview Medical CenterCalcium [Mass/volume] in Serum or PlasmaOrdered By: Peter Ahumada on 84-49-4247Ghvcigj [Mass/Vol]8.5 mg/dLLow8.6-10.3FMercy Health Defiance HospitalComment on above:Performed By: #### TSH3, CBC, A1C WTH eA, LIPID, CMP, T4F #### [address] [place] [address] USACarbon dioxide, total [Moles/volume] in Serum or Plasma Ordered By: Peter Ahumada on 91-80-4865GR5 [Moles/Vol]29.8 mmol/HVdedja95.0-31.0 [facility] Medical CenterComment on above:Performed By: #### TSH3, CBC, A1C WTH eA, LIPID, CMP, T4F #### [facility] [address] [place] [address] USAChloride [Moles/volume] in Serum or PlasmaOrdered By: Peter Ahumada on 12-39-7848Ooivhhha [Moles/Vol]105 mmol/CQaaybr11-904LgeyrhnkiSouthview Medical CenterComment on above:Performed By: #### TSH3, CBC, A1C WTH eA, LIPID, CMP, T4F #### [facility] [address] [place] [address] USACholesterol [Mass/volume] in Serum or PlasmaOrdered By: Peter Ahumada on 82-47-9452Ibudluyybny [Mass/Vol]151 mg/gKMqxcva928-467BwjosyotkSouthview Medical CenterComment on above:Chol less than 200 mg/dl low riskChol 201-239 mg/dl borderline riskChol 240 mg/dl and greater high riskResult Comment: Chol less than 200 mg/dl low risk Chol 201-239 mg/dl borderline risk Chol 240 mg/dl and greater high riskPerformed By: #### TSH3, CBC, A1C WTH eA, LIPID, CMP, T4F #### [facility] [address] [place] [address] USACholesterol in HDL [Mass/volume] in Serum or PlasmaOrdered By: Peter Ahumada on 19-69-6857Zzadibkhsac in HDL [Mass/Vol]50 mg/oSNvoxzx72-18 [facility] Medical CenterComment on above:HDL CHOL ATP-III CLASSIFICATION Cardiovascular RiskHDL > or equal to 60 mg/dL LOWHDL < 40 mg/dL HIGHResult Comment: HDL CHOL ATP-III CLASSIFICATION Cardiovascular Risk HDL > or equal to 60 mg/dL LOW HDL < 40 mg/dL HIGHPerformed By: #### TSH3, CBC, A1C WTH eA, LIPID, CMP, T4F #### [facility] [address] [place] [id number] USACholesterol in LDL Calc [Mass/Vol]Ordered By: Peter Ahumada on 30-20-7606Cgqejprckrj in LDL [Mass/Vol]84 mg/dL0-100South[facility] Medical CenterComment on above:LDL ATP III CLASSIFICATIONLDL less than 100 mg/dL OptimalLDL 100-129 mg/dL Near or above qrxaovoUOZ137-070 mg/dL Borderline highLDL 160-189 mg/dL HighLDL greater than 189 mg/dL Very highCholesterol in VLDL Calc [Mass/Vol]Ordered By: Peter Ahumada on 06-02-6551Zgkpocvjhlr in VLDL [Mass/Vol]16 mg/dLSouthview Medical CenterComplete Blood Count Auto Diffon 78-36-7909Zamt Corpuscular HGB Conc33.5 g/gQEyuotd32.0-35.0The [facility] Physician GroupComment on above:Performed By: #### TSH3, CBC, A1C WTH eA, LIPID, CMP, T4F #### [facility] [address] [place] [address] USANRBC%0.0 /100{WBC}Normal0-0.5[facility] Comment on above:Performed By: #### TSH3, CBC, A1C WTH eA, LIPID, CMP, T4F #### [facility] [address] [place] [id number] USAComprehensive Metabolic Panelon 16-26-9338Opyuioa [Mass/Vol]3.7 g/dLNormal3.5-5.7The [facility] Physician GroupComment on above: Performed By: #### TSH3, CBC, A1C WTH eA, LIPID, CMP, T4F #### [facility] [address] [place] [id number] USAGFR/1.73 sq M.predicted MDRD (S/P/Bld) [Vol rate/Area] mL/min/{1.73_m2}NormalThe Formerly [facility] Hospital Physician GroupComment on above:Performed By: #### TSH3, CBC, A1C WTH eA, LIPID, CMP, T4F #### [facility] [address] [place] [id number] USACreatinine [Mass/volume] in Serum or PlasmaOrdered By: Peter Ahumada on 95-60-6756Cyoqwbhdzx [Mass/Vol]0.50 mg/dLLow0.60-1.20[facility] Medical CenterComment on above:Performed By: #### TSH3, CBC, A1C WTH eA, LIPID, CMP, T4F #### [facility] [address] [place] [id number] USAEosinophils [#/volume] in Blood by Automated countOrdered By: Peter Ahumada on 02-45-7527Yrkseyppifa (Bld) [#/Vol]0.1 10*3/uLNormal0.0-0.45 [facility] Medical CenterComment on above:Performed By: #### TSH3, CBC, A1C WTH eA, LIPID, CMP, T4F #### [facility] [address] [place] [id number] USAEosinophils/100 leukocytes in Blood by Automated count Ordered By: Peter Ahumada on 88-69-6283Ovzpezgxkhn/100 WBC (Bld)1.7 %Normal. [facility]view Medical CenterComment on above:Performed By: #### TSH3, CBC, A1C WTH eA, LIPID, CMP, T4F #### [facility] [address] [place] [address] USAErythrocyte distribution width [Ratio] by Automated count Ordered By: Peter Ahumada on 03-85-5832Ewcrrfvwuhj distribution width (RBC) [Ratio] 12.7 %Blzszh70.9-15.3FMercy Health Defiance HospitalComment on above:Performed By: #### TSH3, CBC, A1C WTH eA, LIPID, CMP, T4F #### [facility] [address] [place] [id number] USAErythrocytes [#/volume] in Blood by Automated countOrdered By: Peter Ahumada on 01-84-2989FGV (Bld) [#/Vol]4.14 10*6/uLNormal3.60-5.00 [facility] Medical CenterComment on above:Performed By: #### TSH3, CBC, A1C WTH eA, LIPID, CMP, T4F #### [facility] [address] [place] [address] USAGlucose [Mass/volume] in Serum or PlasmaOrdered By: Peter Ahumada on 83-82-3512Mvngkdy [Mass/Vol]98 mg/sHPikscx41-610ZfikboytqSouthview Medical CenterComment on above:ADA recommended reference rangeRandom Glucose Reference [...] A1C WTH eA, LIPID, CMP, T4F #### [facility] [address] [place] [address] USAHematocrit [Volume Fraction] of Blood by Automated count Ordered By: Peter Ahumada on 55-18-7295Aferhgncne (Bld) [Volume fraction]36.1 % Boogdr31.0-46.4FMercy Health Defiance HospitalComment on above:Performed By: #### TSH3, CBC, A1C WTH eA, LIPID, CMP, T4F #### [facility] [address] [place] [address] USAHemoglobin A1c/Hemoglobin.total in BloodOrdered By: Peter Ahumada on 19-35-4840YsF2l (Bld) [Mass fraction]5.7 %High4.3-5.6FMercy Health Defiance HospitalComment on above:Increased risk for diabetes: 5.7 - 6.4diabetes: >6.4glycemic control for adults with diabetes: <7.0Result Comment: Increased risk for diabetes: 5.7 - 6.4 diabetes: >6.4 glycemic control for adults with diabetes: <7.0Performed By: #### TSH3, CBC, A1C WTH eA, LIPID, CMP, T4F #### [facility] [address] [place] [address] USAHemoglobin [Mass/volume] in BloodOrdered By: Peter Ahumada on 42-18-6235Bgsyadijqp (Bld) [Mass/Vol]12.1 g/mMKijmet91.8-15.4FMercy Health Defiance HospitalComment on above:Performed By: #### TSH3, CBC, A1C WTH eA, LIPID, CMP, T4F #### [facility] [address] [place] [address] USALeukocytes [#/volume] corrected for nucleated erythrocytes in Blood by Automated counOrdered By: Peter Ahumada on 64-07-2562XRP corrected for nucl RBC Auto (Bld) [#/Vol]7.1 10*3/uL3.8-11.6FMercy Health Defiance Hospital Leukocytes [#/volume] in Blood by Automated countOrdered By: Peter Ahumada on 37-81-2595MSX (Bld) [#/Vol]7.1 10*3/uLNormal3.8-11.6FMercy Health Defiance HospitalComment on above:Performed By: #### TSH3, CBC, A1C WTH eA, LIPID, CMP, T4F #### [facility] [address] [place] [address] USALipid Panelon 09-11-3218SQR Cholesterol,Bofsuhjoyz01 mg/dL Normal0-100The [facility] Physician GroupComment on above:Result Comment: LDL ATP III CLASSIFICATION LDL less than 100 mg/dL Optimal LDL 100-129 mg/dL Near or above optimal LDL 130-159 mg/dL Borderline high LDL 160-189 mg/dL High LDL greater than 189 mg/dL Very highPerformed By: #### TSH3, CBC, A1C WTH eA, LIPID, CMP, T4F #### [facility] [address] [place] [address] USATriglyceride w/Nhptdo10 mg/dLNormal0-149The [facility] Physician GroupComment on above:Result Comment: TRIG ATP III CLASSIFICATION TRIG less than 150 mg/dL Normal TRIG 150-199 mg/dL Borderline high TRIG 200-500 mg/dL High TRIG greater than 500 mg/dL Very high Standard traceable to the Center for Disease Conrtrol and Prevention (CDC) test method.Performed By: #### TSH3, CBC, A1C WTH eA, LIPID, CMP, T4F #### [facility] [address] [place] [id number] USAVLDL CSZAVZTIKHO55 mg/dLNoDosher Memorial Hospital Physician GroupComment on above:Performed By: #### TSH3, CBC, A1C WTH eA, LIPID, CMP, T4F #### [facility] [address] [place] [address] USALymphocytes [#/volume] in Blood by Automated countOrdered By: Peter Ahumada on 22-08-5281Ebzycdupdcg (Bld) [#/Vol]1.7 10*3/uLNormal1.00-4.8 [facility] CenterComment on above:Performed By: #### TSH3, CBC, A1C WTH eA, LIPID, CMP, T4F #### [facility] [address] [place] [id number] USALymphocytes/100 leukocytes in Blood by Automated count Ordered By: Peter Ahumada on 55-67-1616Wjpukhzcfjf/100 WBC (Bld)23.9 %Normal. [facility] Medical CenterComment on above:Performed By: #### TSH3, CBC, A1C WTH eA, LIPID, CMP, T4F #### [facility] [address] [place] [id number] [facility] [Entitic mass] by Automated countOrdered By: Peter Ahumada on 42-82-7952RUM (RBC) [Entitic mass]29.1 shNqaemk01.7-34.3FMercy Health Defiance HospitalComment on above:Performed By: #### TSH3, CBC, A1C WTH eA, LIPID, CMP, T4F #### [facility] [address] [place] [id number] [facility] Auto (RBC) [Mass/Vol]Ordered By: Peter Ahumada on 61-83-0884ITPM (RBC) [Mass/Vol]33.5 g/dL32.0-35.0[facility]V [Entitic volume] by Automated countOrdered By: Peter Ahumada on 47-97-9324UPO (RBC) [Entitic vol]87.0 aNXjiufi89-244LhbwkrmdaSouthview Medical CenterComment on above:Performed By: #### TSH3, CBC, A1C WTH eA, LIPID, CMP, T4F #### [facility] [address] [place] [address] USAMonocytes [#/volume] in Blood by Automated countOrdered By: Peter Ahumada on 04-12-2184Nmzqaydmt (Bld) [#/Vol]0.5 10*3/uLNormal0.0-0.8 [facility] CenterComment on above:Performed By: #### TSH3, CBC, A1C WTH eA, LIPID, CMP, T4F #### [facility] [address] [place] [address] USAMonocytes/100 leukocytes in Blood by Automated count Ordered By: Peter Ahumada on 63-90-5289Ajbbwcpbd/100 WBC (Bld)7.2 %Normal.[facility] Medical CenterComment on above:Performed By: #### TSH3, CBC, A1C WTH eA, LIPID, CMP, T4F #### [facility] [address] [place] [address] USANeutrophils [#/volume] in Blood by Automated countOrdered By: Peter Ahumada on 99-73-8580Wdohdqsqwso (Bld) [#/Vol]4.7 10*3/uLNormal1.8-7.7 [facility] CenterComment on above:Performed By: #### TSH3, CBC, A1C WTH eA, LIPID, CMP, T4F #### [facility] [address] [place] [address] USANeutrophils/100 leukocytes in Blood by Automated count Ordered By: Peter Ahumada on 58-83-7799Eidemehzasy/100 WBC (Bld)66.4 %Normal. [facility] Medical CenterComment on above:Performed By: #### TSH3, CBC, A1C WTH eA, LIPID, CMP, T4F #### [facility] [address] [place] [address] USANo Panel InformationOrdered By: Peter Ahumada on 12-05-2024 Estimated GFR (CKD-EPI)> 60.0 mL/MinSouthview Medical CenterPharmacy Creatinine Clearance (ChemN/AFMercy Health Defiance HospitalNucleated erythrocytes [Presence] in Blood by Automated countOrdered By: Peter Ahumada on 24-21-7904Ietfjpndo RBC Auto Ql (Bld)0.0 /100{WBC}0-0.5FMercy Health Defiance HospitalPlatelet mean volume [Entitic volume] in Blood by Automated count Ordered By: Peter Ahumada on 75-47-5008Wdgyvyut mean volume (Bld) [Entitic vol]7.7 fLNormal6.3-10.7FMercy Health Defiance HospitalComment on above:Performed By: #### TSH3, CBC, A1C WTH eA, LIPID, CMP, T4F #### [facility] [address] [place] [address] USAPlatelets [#/volume] in Blood by Automated countOrdered By: Peter Ahumada on 05-12-5854Epwhttfpv (Bld) [#/Vol]296 10*3/jLDpnteb089-753 [facility] CenterComment on above:Performed By: #### TSH3, CBC, A1C WTH eA, LIPID, CMP, T4F #### [facility] [address] [place], [place] [address] USAPotassium [Moles/volume] in Serum or PlasmaOrdered By: Peter Ahumada on 14-10-0962Wsbpluckf [Moles/Vol]4.4 mmol/LNormal3.5-5.1FMercy Health Defiance HospitalComment on above:Performed By: #### TSH3, CBC, A1C WTH eA, LIPID, CMP, T4F #### [facility] [address] [place] [address] USAProtein [Mass/volume] in Serum or PlasmaOrdered By: Peter Ahumada on 87-67-1496Qrxrilq [Mass/Vol]6.0 g/dLLow6.4-8.9[facility] CenterComment on above:Performed By: #### TSH3, CBC, A1C WTH eA, LIPID, CMP, T4F #### [facility] [address] [place] [address] USASerum globulin measurement by calculation (mass/volume) Ordered By: Peter Ahumada on 61-35-5166Lhlsuevl (S) [Mass/Vol]2.3 g/dLNormal [facility] CenterComment on above:Performed By: #### TSH3, CBC, A1C WTH eA, LIPID, CMP, T4F #### [facility] [address] [place] [address] USASerum or plasma albumin/globulin mass ratioOrdered By: Peter Ahumada on 01-32-3008Vprlqxd/Globulin [Mass ratio]1.6 {ratio}NormalSouthview Medical CenterComment on above:Performed By: #### TSH3, CBC, A1C WTH eA, LIPID, CMP, T4F #### [facility] [address] [place] [address] USASerum or plasma anion gap determinationOrdered By: Peter Ahumada on 48-01-7167Nshki gap [Moles/Vol]8.6 mmol/LNormal6.0-15.0[facility] CenterComment on above:Performed By: #### TSH3, CBC, A1C WTH eA, LIPID, CMP, T4F #### [facility] [address] [place] [address] USASerum or plasma total cholesterol/high density lipoprotein (HDL) cholesterol mass ratOrdered By: Peter Ahumada on 12-05-2024 Cholesterol.total/Cholesterol in HDL [Mass ratio]3.0 {ratio}Normal<5.0[facility] Medical CenterComment on above:Performed By: #### TSH3, CBC, A1C WTH eA, LIPID, CMP, T4F #### [facility] [address] [place] [id number] USASodium [Moles/volume] in Serum or PlasmaOrdered By: Peter Ahumada on 51-26-2024Uoxygs [Moles/Vol]139 mmol/TQhltlk603-912YuwpbvvckSouthview Medical CenterComment on above:Performed By: #### TSH3, CBC, A1C WTH eA, LIPID, CMP, T4F #### [facility] [address] [place] [address] USAThyrotropin [Units/volume] in Serum or PlasmaOrdered By: Peter Ahumada on 30-66-0028CRF Qn0.30 m[IU]/LLow0.45-5.33[facility] Medical CenterComment on above:Result Comment: PERFORMED BY: [place] [id number] PATHOLOGIST 2ND PRESSMAN PADILLA LYMAN M.D.Performed By: #### TSH3, CBC, A1C WTH eA, LIPID, CMP, T4F #### [facility] [address] [place] [id number] USAThyroxine (T4) free [Mass/volume] in Serum or Plasma Ordered By: Peter Ahumada on 53-71-5645Koyn T4 [Mass/Vol]1.01 ng/dLNormal0.61-1.12 [facility] CenterComment on above:Performed By: #### TSH3, CBC, A1C WTH eA, LIPID, CMP, T4F #### [facility] [address] [place] [id number] USATriglyceride [Mass/volume] in Serum or PlasmaOrdered By: Peter Ahumada on 47-06-6887Bkgfyuapgtaw [Mass/Vol]83 mg/dL0-149[facility] CenterComment on above:TRIG ATP III CLASSIFICATIONTRIG less than 150 mg/dL NormalTRIG 150-199 mg/dL Borderline highTRIG 200-500 mg/dL High TRIG greater than 500 mg/dL Very highStandard traceable to the Center for Disease Co nrtrol and Prevention (CDC) test method.Urea nitrogen [Mass/volume] in Serum or PlasmaOrdered By: Peter Ahumada on 91-05-8868Cesv nitrogen [Mass/Vol]16 mg/dLNormal 7-25[facility] Medical CenterComment on above:Performed By: #### TSH3, CBC, A1C WTH eA, LIPID, CMP, T4F #### [facility] [address] [place] [address] USAPathology study report documentOrdered By: Adolfo Madrid on 47-59-1327Ntkccxucd [facility] Other Lon 09-29-2024L Specimen: [id number] Received: 09/29/24 Status: JORGE Bergman Num: [id number] Spec Type: Surgical Subm Dr: Alber Lara DO Tissues: A Skin Cyst (RT CHEST CYSTIC WALL) Procedures: Luma RAMIREZ/Fabiana L3 Age/ Patient Sex Location Account Attending Physician Darling Khanna 44/F ELIUD [id number] Alber Lara DO SPEC NUM: [id number] RECD: 09/29/24 STATUS: JORGE BERGMAN NUM: [id number] ALISTAIR: 09/29/24- [place] DR: Alber Lara DO ENTERED: 09/29/24-1 [facility] [address]: Alexis [facility] SPEC TYPE: Surgical DEPT: S [...] submitted in a single cassette. (1, ns, [id number]) NOEL Specimen: [id number] Received: 09/29/24 Status: JORGE Bergman Num: [id number] Spec Type: Surgical Subm Dr: Alber Lara DO Tissues: A Skin Cyst (RT CHEST CYSTIC WALL) Procedures: ASHLEY Gross/Micro L3 Patient: MaydaDarling [id number] (Continued) Specimen: [id number] Received: 09/29/24 (Continued) Signed (signature on file) ChinTiffany Madrid MD 09/30/24 1501 Specimen: [id number] Received: 09/29/24 Status: JORGE Bergman Num: [id number] Spec Type: Surgical Subm Dr: Alber Lara DO Tissues: A Skin Cyst (RT CHEST CYSTIC WALL) Procedures: Luma RAMIREZ/Fabiana L3 Patient: Darling Khanna [id number] (Continued) Specimen: [id number] Received: 09/29/24 (Continued) Microscopic Description Microscopic examinations are performed supporting the above interpretation CPT Codes 94798 Specimen: [id number] Received: 09/29/24 Status: JORGE Bergman Num: [id number] Spec Type: Surgical Subm Dr: Alber Lara DO Tissues: A Skin Cyst (RT CHEST CYSTIC WALL) Procedures: Luma RAMIREZ/Fabiana L3 Patient: Darling Khanna [id number] (Continued) Signed (signature on file) Adolfo Madrid MD 09/30/[address] [place] [address] Physician Group ankle LT wo conon [id number] ankle LT wo [facility] [place] [address] MRI Report Signed Patient: Darling Khanna MR#: [id number] 1872 : 1980 Acct:[id number] Age/Sex: 44 / F ADM Date: 06/04/24 Loc: MR Room: Type: [facility] Attending Dr: Robert Martinez DPM, MS [...] Osmani Stovall M.D.06/04/2024 10:29 PM Dictation Location: [place] [address] Transcribed By: [facility] 06/04/242228 Dictated By: Osmani Stovall DO 06/04/242217 Signed By: 06/04/242228[facility] Physician [facility] CenterMagnetic resonance imaging reportOrdered By: Osmani Stovall on 15-75-4863Qtsey reportF[facility] Main [place] [address] [place] [address] MRI Report Signed Patient: Darling Khanna MR#: [id number] : 1980 Acct:[id number] Age/Sex: 44 / F ADM Date: 4 Loc: MR Room: Type: [facility] Attending Dr: Robert Martinez DPM, MS [...] Osmani Stovall M.D.06/04/2024 10:29 PM Dictation Location: [place] [address] Transcribed By: [facility] 06/04/242228 Dictated By: Osmani Stovall DO 06/04/242217 Signed By: 06/04/242228 [facility] CenterX-ray reportOrdered By: Osmani Stovall on 15-98-0926Mfcwb reportF[facility] [place] [address] [place], [place] [id number] XRay Report Signed Patient: Darling Khanna MR#: [id number] : 1980 Acct:[id number] Age/Sex: 44 / F ADM Date: 4 Loc: MR Room: Type: [facility] Attending Dr: Robert Martinez DPM, MS [...] 11:51 PM Dictation Location: RADIO--01 Transcribed By: [facility] 06/04/242350 Dictated By: Osmani Stovall DO 06/04/242350 Signed By: 06/04/242350 [facility] CenterXR pre/post mri xrayon 51-94-7318JT pre/post mri xrayFORT [facility]AMILTON [place] [address] XRay Report Signed Patient: Darling Khanna MR#: [id number] : 1980 Acct:[id number] Age/Sex: 44 / F ADM Date: 06/04/24 Loc: Room: Type: [facility] Attending Dr: Robert Martinez DPM, MS [...] 11:51 PM Dictation Location: [place]--01 Transcribed By: [facility] 06/04/242350 Dictated By: Osmani Stovall DO 06/04/242350 Signed By: 06/04/24 [facility] Physician GroupEMG 2 Extremitieson 02-37-4821M8 radiculopathy, left, [facility] 11-12 Nerveson 10-47-0580I7 radiculopathy, left, mildNOMS HealthcareNOMS HealthcareAlanine aminotransferase [Enzymatic activity/volume] in Serum or PlasmaOrdered By: Peter Ahumada on 74-80-6305ITE [Catalytic activity/Vol]10 U/L7-52[facility] CenterAlbumin [Mass/volume] in Serum or Plasma by Bromocresol green (BCG) dye binding methoOrdered By: Peter Ahumada on 35-93-8779Pzqvmot BCG dye [Mass/Vol]4.0 g/dL3.5-5.7FMercy Health Defiance HospitalAlkaline phosphatase [Enzymatic activity/volume] in Serum or PlasmaOrdered By: Peter Ahumada on 49-30-5509XDY [Catalytic activity/Vol]46 U/J73-854FynjhbajhSouthview Medical CenterAspartate aminotransferase [Enzymatic activity/volume] in Serum or Plasma Ordered By: Peter Ahumada on 42-81-8502WIQ [Catalytic activity/Vol]20 U/L13-39 [facility] CenterBasophils Auto (Bld) [#/Vol]Ordered By: Peter Ahumada on 71-81-5015Jiebqjqys (Bld) [#/Vol]0.0 10*3/uL0.0-0.2FMercy Health Defiance HospitalBasophils/100 WBC Auto (Bld)Ordered By: Peter Ahumada on 03-05-2024 Basophils/100 WBC (Bld)0.7 %.[facility] CenterBilirubin.total [Mass/volume] in Serum or PlasmaOrdered By: Peter Ahumada on 36-84-0749Dkojmypdp [Mass/Vol]0.4 mg/dL0.3-1.0[facility] CenterCalcium [Mass/volume] in Serum or PlasmaOrdered By: Peter Ahumada on 71-88-8406Ulsllce [Mass/Vol]8.9 mg/dL8.6-10.3FMercy Health Defiance HospitalCarbon dioxide, total [Moles/volume] in Serum or PlasmaOrdered By: ePter Ahumada on 94-25-2989DI8 [Moles/Vol]28.7 mmol/L21.0-31.0[facility] CenterChloride [Moles/volume] in Serum or PlasmaOrdered By: Peter Ahumada on 98-14-1432Xzghsiwg [Moles/Vol]103 mmol/H55-372YhgrhtybgSouthview Medical CenterCholesterol [Mass/volume] in Serum or PlasmaOrdered By: Peter Ahumada on 43-84-5957Kjpntdglbzi [Mass/Vol]166 mg/bP457-391QurgseudsSouthview Medical CenterComment on above:Chol less than 200 mg/dl low riskChol 201-239 mg/dl borderline riskChol 240 mg/dl and greater high riskCholesterol in LDL Calc [Mass/Vol]Ordered By: Peter Ahumada on 37-87-1885Qvazujjphfo in LDL [Mass/Vol]76 mg/dL0-100[facility] CenterComment on above:LDL ATP III CLASSIFICATIONLDL less than 100 mg/dL OptimalLDL 100-129 mg/dL Near or above mnhfnyoKWS689-773 mg/dL Borderline highLDL 160-189 mg/dL HighLDL greater than 189 mg/dL Very highCholesterol in VLDL Calc [Mass/Vol]Ordered By: Peter Ahumada on 42-33-5521Xahzotqdibo in VLDL [Mass/Vol]40 mg/dLSouthview Medical CenterCreatinine [Mass/volume] in Serum or PlasmaOrdered By: Peter Ahumada on 34-77-1832Wlvgucjtku [Mass/Vol]0.63 mg/dL0.60-1.20[facility] CenterEosinophils Auto (Bld) [#/Vol] Ordered By: Peter Ahumada on 17-08-3384Jkawovofrgc (Bld) [#/Vol]0.1 10*3/uL0.0-0.45 [facility] CenterEosinophils/100 WBC Auto (Bld)Ordered By: Peter Ahumada on 19-97-1549Bjguguyirrh/100 WBC (Bld)2.2 %.[facility] CenterErythrocyte distribution width Auto (RBC) [Ratio]Ordered By: Pteer Ahumada on 15-87-3318Uicgpuvkfpa distribution width (RBC) [Ratio]13.4 %11.9-15.3FMercy Health Defiance HospitalGlobulin Calc (S) [Mass/Vol]Ordered By: Peter Ahumada on 15-24-5134Vniukokz (S) [Mass/Vol]2.7 g/dLSouthview Medical Center Glucose [Mass/volume] in Serum or PlasmaOrdered By: Peter Ahumada on 03-05-2024 Glucose [Mass/Vol]96 mg/tQ29-928IvhxoqaiwSouthview Medical CenterComment on above:ADA recommended reference rangeRandom Glucose Reference Range is dependent on time and content of last meal. Glucose of more than 200 mg/dL in a nonstressed, ambulatory subject supports the diagnosisof Diabetes Mellitus. Glucose mean value [Mass/volume] in Blood Estimated from glycated hemoglobin Ordered By: Peter Ahumada on 45-54-9153Ohunmop glucose Estimated from glycated hemoglobin (Bld) [Mass/Vol]128 mg/dLSouthview Medical CenterHematocrit Auto (Bld) [Volume fraction]Ordered By: Peter Ahumada on 81-27-5331Ryqpcmfrwq (Bld) [Volume fraction]37.2 %34.0-46.4FMercy Health Defiance HospitalHemoglobin A1c percentageOrdered By: Peter Ahumada on 14-91-6002DwC1u (Bld) [Mass fraction]6.1 % High4.3-5.6FMercy Health Defiance HospitalComment on above:Increased risk for diabetes: 5.7 - 6.4diabetes: >6.4glycemic control for adults with diabetes: &l t;7.0Hemoglobin [Mass/volume] in BloodOrdered By: Peter Ahumada on 03-05-2024 Hemoglobin (Bld) [Mass/Vol]12.5 g/dL11.8-15.4FMercy Health Defiance Hospital Leukocytes [#/volume] corrected for nucleated erythrocytes in Blood by Automated counOrdered By: Peter Ahumada on 19-81-6356UNJ corrected for nucl RBC Auto (Bld) [#/Vol]6.2 10*3/uL3.8-11.6FMercy Health Defiance HospitalLymphocytes Auto (Bld) [#/Vol]Ordered By: Peter Ahumada on 92-07-3624Bfsymawkryq (Bld) [#/Vol]2.2 10*3/uL1.00-4.8[facility] CenterLymphocytes/100 WBC Auto (Bld) Ordered By: Peter Ahumada on 14-85-1786Pqaugzevptj/100 WBC (Bld)36.3 %.[facility] Medical CenterMCH Auto (RBC) [Entitic mass]Ordered By: Peter Ahumada on 20-64-9031GMW (RBC) [Entitic mass]28.2 pg24.7-34.3FMercy Health Defiance HospitalMCHC Auto (RBC) [Mass/Vol]Ordered By: Peter Ahumada on 63-88-8525PTAD (RBC) [Mass/Vol]33.6 g/dL32.0-35.0[facility] CenterMCV Auto (RBC) [Entitic vol]Ordered By: Peter Ahumada on 72-87-0781LSZ (RBC) [Entitic vol]83.8 fL 80-100[facility] CenterMonocytes Auto (Bld) [#/Vol]Ordered By: Peter Ahumada on 08-72-8937Sndylhxvm (Bld) [#/Vol]0.5 10*3/uL0.0-0.8[facility] CenterMonocytes/100 WBC Auto (Bld)Ordered By: Peter Ahumada on 14-81-7822Qtzrqzosv/100 WBC (Bld)7.5 %.[facility] Neutrophils Auto (Bld) [#/Vol]Ordered By: Peter Ahumada on 09-55-1718Tvjnmbkndoo (Bld) [#/Vol]3.3 10*3/uL1.8-7.7FMercy Health Defiance HospitalNeutrophils/100 WBC Auto (Bld)Ordered By: Peter Ahumada on 75-62-1767Uklbmairauj/100 WBC (Bld)53.3 %.[facility] CenterNo Panel InformationOrdered By: Peter Ahumada on 38-18-2947Itvggopvv GFR (CKD-EPI)> 60.0 mL/MinSouthview Medical Center Pharmacy Creatinine Clearance (ChemN/[facility] HospitalNucleated erythrocytes [Presence] in Blood by Automated countOrdered By: Peter Ahumada on 19-72-3025Uweaytrcb RBC Auto Ql (Bld)0.1 /100{WBC}0-0.5FMercy Health Defiance HospitalPlatelet mean volume Auto (Bld) [Entitic vol]Ordered By: Peter Ahumada on 66-65-0638Wgxximbd mean volume (Bld) [Entitic vol]8.7 fL6.3-10.7 [facility] CenterPlatelets Auto (Bld) [#/Vol]Ordered By: Peter Ahumada on 57-01-3159Ceahnufcp (Bld) [#/Vol]333 10*3/hD643-252RqkpddaxlSouthview Medical CenterPotassium [Moles/volume] in Serum or PlasmaOrdered By: Peter Ahumada on 57-45-1861Rpqhhtivu [Moles/Vol]3.8 mmol/L3.5-5.1FMercy Health Defiance HospitalProtein [Mass/volume] in Serum or PlasmaOrdered By: Peter Ahumada on 47-85-2021Stvqygl [Mass/Vol]6.7 g/dL6.4-8.9[facility] CenterRBC Auto (Bld) [#/Vol]Ordered By: Peter Ahumada on 82-34-0245CNB (Bld) [#/Vol]4.44 10*6/uL3.60-5.00[facility] Centererum or plasma albumin/globulin mass ratioOrdered By: Peter Ahumada on 53-40-3503Jqjnrhg/Globulin [Mass ratio]1.5 {ratio}[facility] Centererum or plasma anion gap determinationOrdered By: Peter Ahumada on 70-91-4117Abaea gap [Moles/Vol]11.1 mmol/L6.0-15.0[facility] Centererum or plasma high density lipoprotein (HDL) cholesterol measurementOrdered By: Peter Ahumada on 03-05-2024 Cholesterol in HDL [Mass/Vol]50 mg/jG98-74GcilbywyjSouthview Medical Center Comment on above:HDL CHOL ATP-III CLASSIFICATION Cardiovascular RiskHDL > or equal to 60 mg/dL LOWHDL < 40 mg/dL HIGHSerum or plasma total cholesterol/high density lipoprotein (HDL) cholesterol mass ratOrdered By: Peter Ahumada on 95-57-6735Jlwmjtgdrzt.total/Cholesterol in HDL [Mass ratio]3.3 {ratio}<5.0 [facility] Centerodium [Moles/volume] in Serum or PlasmaOrdered By: Peter Ahumada on 99-42-7582Swadqj [Moles/Vol]139 mmol/D211-347CdvnuylufSouthview Medical CenterThyrotropin [Units/volume] in Serum or PlasmaOrdered By: Peter Ahumada on 89-74-4198BPW Qn0.29 m[IU]/LLow0.45-5.33[facility] CenterThyroxine (T4) free [Mass/volume] in Serum or PlasmaOrdered By: Peter Ahumada on 64-12-5730Aeec T4 [Mass/Vol]0.81 ng/dL0.61-1.12[facility] CenterTriglyceride [Mass/volume] in Serum or PlasmaOrdered By: Peter Ahumada on 38-26-5568Nprbsasxmnad [Mass/Vol]202 mg/dLHigh0-149[facility] CenterComment on above:TRIG ATP III CLASSIFICATIONTRIG less than 150 mg/dL NormalTRIG 150-199 mg/dL Borderline highTRIG 200-500 mg/dL High TRIG greater than 500 mg/dL Very highStandard traceable to the Center for Disease Co nrtrol and Prevention (CDC) test method.Urea nitrogen [Mass/volume] in Serum or PlasmaOrdered By: Peter Ahumada on 90-23-4460Lhxd nitrogen [Mass/Vol]11 mg/dL7-25 [facility] CenterWBC Auto (Bld) [#/Vol]Ordered By: Peter Ahumada on 90-34-3601AOU (Bld) [#/Vol]6.2 10*3/uL3.8-11.6FMercy Health Defiance Hospital HCG ( test) IA.rapid Ql (U)Ordered By: Rahul Rogers on 01-29-2024 HCG ( test) Ql (U)NegativeSouthview Medical CenterThyrotropin [Units/volume] in Serum or PlasmaOrdered By: Peter Ahumada on 46-09-0935NJS Qn0.15 m[IU]/L0.45-5.33[facility] CenterThyroxine (T4) free [Mass/volume] in Serum or PlasmaOrdered By: Peter Ahumada on 17-09-3525Qmlp T4 [Mass/Vol]0.97 ng/dL0.61-1.12[facility] CenterAlanine aminotransferase [Enzymatic activity/volume] in Serum or PlasmaOrdered By: Peter Ahumada on 83-34-7558OJE [Catalytic activity/Vol]7 U/L7-52[facility] CenterAlbumin [Mass/volume] in Serum or Plasma by Bromocresol green (BCG) dye binding methoOrdered By: Peter Ahumada on 70-77-4925Dsbykmp BCG dye [Mass/Vol]3.8 g/dL3.5-5.7FMercy Health Defiance HospitalAlkaline phosphatase [Enzymatic activity/volume] in Serum or PlasmaOrdered By: Peter Ahumada on 05-58-6428YJN [Catalytic activity/Vol]54 U/Q28-946AtexnczyvSouthview Medical CenterAspartate aminotransferase [Enzymatic activity/volume] in Serum or Plasma Ordered By: Peter Ahumada on 13-30-9984ATY [Catalytic activity/Vol]17 U/L13-39 [facility] CenterBasophils Auto (Bld) [#/Vol]Ordered By: Peter Ahumada on 71-51-3087Fulhqzjyd (Bld) [#/Vol]0.1 10*3/uL0.0-0.2FMercy Health Defiance HospitalBasophils/100 WBC Auto (Bld)Ordered By: Peter Ahumada on 05-25-2023 Basophils/100 WBC (Bld)1.1 %.[facility] CenterBilirubin.total [Mass/volume] in Serum or PlasmaOrdered By: Peter Ahumada on 98-92-9507Hlhztpxzo [Mass/Vol]0.3 mg/dL0.3-1.0[facility] CenterCalcium [Mass/volume] in Serum or PlasmaOrdered By: Peter Ahumada on 88-92-0483Qbyacri [Mass/Vol]8.8 mg/dL8.6-10.3FMercy Health Defiance HospitalCarbon dioxide, total [Moles/volume] in Serum or PlasmaOrdered By: Peter Ahumada on 59-85-2533NJ9 [Moles/Vol]29.9 mmol/L21.0-31.0[facility] CenterChloride [Moles/volume] in Serum or PlasmaOrdered By: Peter Ahumada on 85-55-8097Sgonmbeg [Moles/Vol]107 mmol/W64-058DgsypzwczSouthview Medical CenterCholesterol [Mass/volume] in Serum or PlasmaOrdered By: Peter Ahumada on 89-37-6336Ocluahxylvx [Mass/Vol]181 mg/qX516-616PxollltfhSouthview Medical CenterComment on above:Chol less than 200 mg/dl low riskChol 201-239 mg/dl borderline riskChol 240 mg/dl and greater high riskCholesterol in LDL Calc [Mass/Vol]Ordered By: Peter Ahumada on 39-92-6320Oeusdcipwwk in LDL [Mass/Vol]115 mg/dL0-100[facility] CenterComment on above:LDL ATP III CLASSIFICATIONLDL less than 100 mg/dL OptimalLDL 100-129 mg/dL Near or above ngldqptZUE592-649 mg/dL Borderline highLDL 160-189 mg/dL HighLDL greater than 189 mg/dL Very highCholesterol in VLDL Calc [Mass/Vol]Ordered By: Peter Ahumada on 33-93-4360Xekjwqztipy in VLDL [Mass/Vol]22 mg/dLSouthview Medical CenterCreatinine [Mass/volume] in Serum or PlasmaOrdered By: Peter Ahumada on 20-82-2425Gjeagdrdrw [Mass/Vol]0.59 mg/dL0.60-1.20[facility] CenterEosinophils Auto (Bld) [#/Vol] Ordered By: Peter Ahumada on 43-89-4660Crbkgwaezdx (Bld) [#/Vol]0.1 10*3/uL0.0-0.45 [facility] CenterEosinophils/100 WBC Auto (Bld)Ordered By: Peter Ahumada on 38-04-9604Kddgwugkvqg/100 WBC (Bld)1.9 %.[facility] CenterErythrocyte distribution width Auto (RBC) [Ratio]Ordered By: Peter Ahumada on 10-09-7823Xfysxxrsowy distribution width (RBC) [Ratio]13.7 %11.9-15.3FMercy Health Defiance HospitalGlobulin Calc (S) [Mass/Vol]Ordered By: Peter Ahumada on 66-23-8966Knwezskn (S) [Mass/Vol]2.7 g/dLSouthview Medical Center Glucose [Mass/volume] in Serum or PlasmaOrdered By: Peter Ahumada on 05-25-2023 Glucose [Mass/Vol]87 mg/mQ35-503IdmonvuiySouthview Medical CenterComment on above:ADA recommended reference rangeRandom Glucose Reference Range is dependent on time and content of last meal. Glucose of more than 200 mg/dL in a nonstressed, ambulatory subject supports the diagnosisof Diabetes Mellitus. Glucose mean value [Mass/volume] in Blood Estimated from glycated hemoglobin Ordered By: Peter Ahumada on 37-25-4098Aqheriw glucose Estimated from glycated hemoglobin (Bld) [Mass/Vol]126 mg/dLSouthview Medical CenterHematocrit Auto (Bld) [Volume fraction]Ordered By: Peter Ahumada on 85-64-8937Kvcxxtddpe (Bld) [Volume fraction]36.2 %34.0-46.4FMercy Health Defiance HospitalHemoglobin A1c percentageOrdered By: Peter Ahumada on 37-27-3723BfS1i (Bld) [Mass fraction]6.0 % 4.3-5.6FMercy Health Defiance HospitalComment on above:Increased risk for diabetes: 5.7 - 6.4diabetes: >6.4glycemic control for adults with diabetes: &l t;7.0Hemoglobin [Mass/volume] in BloodOrdered By: Peter Ahumada on 05-25-2023 Hemoglobin (Bld) [Mass/Vol]11.8 g/dL11.8-15.4FMercy Health Defiance Hospital Leukocytes [#/volume] corrected for nucleated erythrocytes in Blood by Automated counOrdered By: Peter Ahumada on 35-71-4447LBR corrected for nucl RBC Auto (Bld) [#/Vol]6.1 10*3/uL3.8-11.6FMercy Health Defiance HospitalLymphocytes Auto (Bld) [#/Vol]Ordered By: Peter Ahumada on 92-04-3164Ymrzkzdysuu (Bld) [#/Vol]2.0 10*3/uL1.00-4.8[facility] CenterLymphocytes/100 WBC Auto (Bld) Ordered By: Peter Ahumada on 06-78-1910Qniehfpobcb/100 WBC (Bld)32.1 %.[facility]H [facility] (RBC) [Entitic mass]Ordered By: Peter Ahumada on 22-53-9380MRX (RBC) [Entitic mass]27.3 pg24.7-34.3FMercy Health Defiance HospitalMCHC Auto (RBC) [Mass/Vol]Ordered By: Peter Ahumada on 59-70-8964BZDF (RBC) [Mass/Vol]32.7 g/dL32.0-35.0[facility] CenterMCV Auto (RBC) [Entitic vol]Ordered By: Peter Ahumada on 35-69-6867CXZ (RBC) [Entitic vol]83.5 fL 80-100[facility] CenterMonocytes Auto (Bld) [#/Vol]Ordered By: Peter Ahumada on 66-68-4240Mqjluixwg (Bld) [#/Vol]0.3 10*3/uL0.0-0.8[facility] CenterMonocytes/100 WBC Auto (Bld)Ordered By: Peter Ahumada on 98-56-2365Bqdwwrelb/100 WBC (Bld)5.2 %.[facility] Neutrophils Auto (Bld) [#/Vol]Ordered By: Peter Ahumada on 53-56-5045Uwkysftcikg (Bld) [#/Vol]3.6 10*3/uL1.8-7.7FMercy Health Defiance HospitalNeutrophils/100 WBC Auto (Bld)Ordered By: Peter Ahumada on 92-72-0806Iodlfxwqbfm/100 WBC (Bld)59.7 %.[facility] CenterNo Panel InformationOrdered By: Peter Ahumada on 33-69-0859Ohwvlnjms GFR (CKD-EPI)> 60.0 mL/MinSouthview Medical Center Pharmacy Creatinine Clearance (ChemN/[facility] HospitalNucleated erythrocytes [Presence] in Blood by Automated countOrdered By: Peter Ahumada on 98-46-0181Lakdcufhg RBC Auto Ql (Bld)0.1 /100{WBC}0-0.5FMercy Health Defiance HospitalPlatelet mean volume Auto (Bld) [Entitic vol]Ordered By: Peter Ahumada on 85-15-0814Mxwmukxq mean volume (Bld) [Entitic vol]8.5 fL6.3-10.7 [facility] CenterPlatelets Auto (Bld) [#/Vol]Ordered By: Peter Ahumada on 34-26-0817Bqjukvjed (Bld) [#/Vol]364 10*3/jH032-927IooeuxicjSouthview Medical CenterPotassium [Moles/volume] in Serum or PlasmaOrdered By: Peter Ahumada on 34-45-3669Kwojyhhdl [Moles/Vol]4.0 mmol/L3.5-5.1FMercy Health Defiance HospitalProtein [Mass/volume] in Serum or PlasmaOrdered By: Peter Ahumada on 70-06-0771Djfcyrs [Mass/Vol]6.5 g/dL6.4-8.9[facility] CenterRBC Auto (Bld) [#/Vol]Ordered By: Peter Ahumada on 15-46-4393LPW (Bld) [#/Vol]4.34 10*6/uL3.60-5.00[facility] Centererum or plasma albumin/globulin mass ratioOrdered By: Peter Ahumada on 41-38-0813Wwzcajv/Globulin [Mass ratio]1.4 {ratio}[facility] Centererum or plasma anion gap determinationOrdered By: Peter Ahumada on 57-68-7739Fneli gap [Moles/Vol]10.1 mmol/L6.0-15.0[facility] Centererum or plasma high density lipoprotein (HDL) cholesterol measurementOrdered By: Peter Ahumada on 05-25-2023 Cholesterol in HDL [Mass/Vol]44 mg/gI00-58DsrxfnqsuSouthview Medical Center Comment on above:HDL CHOL ATP-III CLASSIFICATION Cardiovascular RiskHDL > or equal to 60 mg/dL LOWHDL < 40 mg/dL HIGHSerum or plasma total cholesterol/high density lipoprotein (HDL) cholesterol mass ratOrdered By: Peter Ahumada on 53-60-3751Pmlpaukxvrd.total/Cholesterol in HDL [Mass ratio]4.1 {ratio}<5.0 [facility] Centerodium [Moles/volume] in Serum or PlasmaOrdered By: Peetr Ahumada on 81-37-5180Vsxgye [Moles/Vol]143 mmol/X018-188MkgqvtsgjSouthview Medical CenterThyrotropin [Units/volume] in Serum or PlasmaOrdered By: Peter Ahumada on 43-19-1858ZMT Qn0.73 m[IU]/L0.45-5.33[facility] CenterThyroxine (T4) free [Mass/volume] in Serum or PlasmaOrdered By: Peter Ahumada on 33-36-5645Voou T4 [Mass/Vol]0.79 ng/dL0.61-1.12[facility] CenterTriglyceride [Mass/volume] in Serum or PlasmaOrdered By: Peter Ahumada on 97-74-3070Gtdlhinegjzt [Mass/Vol]112 mg/dL0-149[facility] Comment on above:TRIG ATP III CLASSIFICATIONTRIG less than 150 mg/dL NormalTRIG 150-199 mg/dL Borderline highTRIG 200-500 mg/dL High TRIG greater than 500 mg/dL Very highStandard traceable to the Center for Disease Conrtrol and Prevention (CDC) test method.Urea nitrogen [Mass/volume] in Serum or PlasmaOrdered By: Peter Ahumada on 67-30-0936Qgbg nitrogen [Mass/Vol]10 mg/dL7-25[facility] CenterWBC Auto (Bld) [#/Vol]Ordered By: Peter Ahumada on 90-80-7211HPO (Bld) [#/Vol]6.1 10*3/uL3.8-11.6FMercy Health Defiance HospitalThyrotropin [Units/volume] in Serum or PlasmaOrdered By: Peter Ahumada on 06-11-2126DSN Qn2.20 m[IU]/L0.45-5.33[facility] CenterThyroxine (T4) free [Mass/volume] in Serum or PlasmaOrdered By: Peter Ahumada on 57-97-0912Elov T4 [Mass/Vol]0.62 ng/dL0.61-1.12[facility] CenterAlanine aminotransferase [Enzymatic activity/volume] in Serum or PlasmaOrdered By: Alba Wrenimore on 49-05-4657ZTZ [Catalytic activity/Vol]7 U/L7-52[facility] CenterAlbumin [Mass/volume] in Serum or Plasma by Bromocresol green (BCG) dye binding methoOrdered By: Alba Bullimore on 47-18-8483Tbddccc BCG dye [Mass/Vol]3.7 g/dL3.5-5.7FMercy Health Defiance HospitalAlkaline phosphatase [Enzymatic activity/volume] in Serum or PlasmaOrdered By: Alba Bullimore on 38-41-6511SSS [Catalytic activity/Vol]47 U/Q80-450WccmefcbjSouthview Medical CenterAspartate aminotransferase [Enzymatic activity/volume] in Serum or PlasmaOrdered By: Alba Bullimore on 49-79-2642VMU [Catalytic activity/Vol]12 U/P56-34BgjtfffpuSouthview Medical CenterAutomated erythrocytes count in urine sediment (number/area)Ordered By: Albayehuda Wrenr [facility] on 11-01-2022 RBC Auto (Urine sed) [#/Area]1-2 [HPF]0-4FMercy Health Defiance Hospital Comment on above:--- 11/01/22 1049 ---Ur RBC previously reported as: 1-2 /HPFMicroscopic results may be affected dueto low specimen volume.Automated leukocytes count in urine sediment (number/area)Ordered By: Albayehuda Wrenr [facility] on 75-06-1746WLV Auto (Urine sed) [#/Area]1-2 [HPF]0-4FMercy Health Defiance HospitalBasophils Auto (Bld) [#/Vol]Ordered By: Alba Holgerr [facility] on 11-01-2022 Basophils (Bld) [#/Vol]0.1 10*3/uL0.0-0.2FMercy Health Defiance Hospital Basophils/100 WBC Auto (Bld)Ordered By: [facility] on 11-01-2022 Basophils/100 WBC (Bld)0.9 %.[facility] CenterBilirubin Test strip Ql (U)Ordered By: Albayehuda Ibrahimparkview health [facility] on 76-57-6742Nxvqqcpzu Ql (U)Negative NegativeSouthview Medical CenterBilirubin.direct [Mass/volume] in Serum or PlasmaOrdered By: Alba Bullimore on 94-44-1102Exoylyovs.direct [Mass/Vol] 0.10 mg/dL0.03-0.18FMercy Health Defiance HospitalBilirubin.total [Mass/volume] in Serum or PlasmaOrdered By: Alba Bullimore on 11-01-2022 Bilirubin [Mass/Vol]0.3 mg/dL0.3-1.0[facility] CenterCalcium [Mass/volume] in Serum or PlasmaOrdered By: Alba Bullimore on 11-01-2022 Calcium [Mass/Vol]8.8 mg/dL8.6-10.3FMercy Health Defiance HospitalCarbon dioxide, total [Moles/volume] in Serum or PlasmaOrdered By: Alba Bullimore on 42-97-9553WN5 [Moles/Vol]27.6 mmol/L21.0-31.0[facility] Chloride [Moles/volume] in Serum or PlasmaOrdered By: [facility] Bullimore on [id number] [Moles/Vol]105 mmol/V25-615SfyyshsomSouthview Medical Center Choriogonadotropin.beta subunit [Units/volume] in Serum or PlasmaOrdered By: Alba Patricepark[facility] on [id number].beta subunit Qnm[IU]/mLSouthview Medical CenterComment on above:Approximate Approximate hCG Gestational Age Range (mIU/ml) (weeks)0.2-1 5-50 1-2 50-500 2-3 100-5,000 3-4 500-10,000 4-5 1,000- 50,000 5-6 10,000-100,000 6-8 15,000-200,000 8-12 10,000-100,000Color Auto (U) Ordered By: Alba Marshall on 72-87-4791Jflru (U)YellowYellowSouthview Medical CenterCreatinine [Mass/volume] in Serum or PlasmaOrdered By: Alba Wrenimlila on [id number] [Mass/Vol]0.60 mg/dL0.60-1.20[facility] CenterEosinophils Auto (Bld) [#/Vol]Ordered By: Albayehuda Marshall on 45-42-7433Gcawrdnhuvn (Bld) [#/Vol]0.2 10*3/uL0.0-0.45[facility] Medical CenterEosinophils/100 WBC Auto (Bld)Ordered By: [facility] on 26-41-1194Zafkgsyiscz/100 WBC (Bld)3.0 %.[facility] Medical CenterErythrocyte distribution width Auto (RBC) [Ratio]Ordered By: [facility] on 50-52-9076Jqakriavnxu distribution width (RBC) [Ratio]13.2 % 11.9-15.3FMercy Health Defiance HospitalGlobulin Calc (S) [Mass/Vol]Ordered By: [facility] on 80-80-6036Udikccml (S) [Mass/Vol]3.1 g/dLSouthview Medical CenterGlucose [Mass/volume] in Serum or PlasmaOrdered By: [facility] on 47-55-8338Nieemna [Mass/Vol]95 mg/cI33-969QjlbaddluSouthview Medical CenterComment on above:ADA recommended reference rangeRandom Glucose Reference Range is dependent on time and content of last meal. Glucose of more than 200 mg/dL in a nonstressed, ambulatory subject supports the diagnosisof Diabetes Mellitus.Hematocrit Auto (Bld) [Volume fraction]Ordered By: [facility] on 78-51-6275Hzgtvlnosn (Bld) [Volume fraction]36.8 %34.0-46.4 [facility] CenterHemoglobin [Mass/volume] in BloodOrdered By: [facility] on 68-35-8225Txhywnbgnk (Bld) [Mass/Vol]12.5 g/dL11.8-15.4 [facility] CenterKetones Auto test strip (U) [Mass/Vol]Ordered By: [facility] on 08-75-2634Skfnzkt (U) [Mass/Vol]NegativeNegative [facility] CenterLaboratory - UrinalysisOrdered By: [facility] on 90-67-3554Qzkkmga casts LM Ql (Urine sed)0-8 [LPF]0-8[facility] CenterLeukocytes [#/volume] corrected for nucleated erythrocytes in Blood by Automated counOrdered By: Alba Bullimore on 62-95-0300RAV corrected for nucl RBC Auto (Bld) [#/Vol]7.8 10*3/uL3.8-11.6 [facility] CenterLymphocytes Auto (Bld) [#/Vol]Ordered By: Alba Bullimore on 53-10-9958Yvnuddushtd (Bld) [#/Vol]1.5 10*3/uL1.00-4.8 [facility] CenterLymphocytes/100 WBC Auto (Bld)Ordered By: Alba Bullimore on 39-98-1219Ryvexaqzudq/100 WBC (Bld)19.6 %.[facility] (RBC) [Entitic mass]Ordered By: Alba Bullimore on 34-54-5226PNN (RBC) [Entitic mass]28.3 pg24.7-34.3FMercy Health Defiance HospitalMCHC Auto (RBC) [Mass/Vol]Ordered By: Alba Bullimore on 71-68-0142BMTU (RBC) [Mass/Vol]33.9 g/dL32.0-35.0[facility] CenterMCV Auto (RBC) [Entitic vol]Ordered By: Alba Bullimore on 96-49-2440IMS (RBC) [Entitic vol]83.3 pV72-486IyomikvjpSouthview Medical CenterMonocyte distribution width [Entitic volume] in Blood by AutomatedOrdered By: Alba Bullimore on 11-01-2022 Monocyte distribution width Auto (Bld) [Entitic vol]17.79 %0.00-20.00[facility] CenterMonocytes Auto (Bld) [#/Vol]Ordered By: Alba Bullimore on 37-34-2697Kpgoyiqfn (Bld) [#/Vol]0.5 10*3/uL0.0-0.8[facility] CenterMonocytes/100 WBC Auto (Bld)Ordered By: Alba Bullimore on 11-01-2022 Monocytes/100 WBC (Bld)6.9 %.[facility] CenterNeutrophils Auto (Bld) [#/Vol]Ordered By: Alba Bullimore on 68-93-3974Bzkzyyxnivv (Bld) [#/Vol] 5.4 10*3/uL1.8-7.7FMercy Health Defiance HospitalNeutrophils/100 WBC Auto (Bld)Ordered By: Alba Bullimore on 37-08-8595Lccphjupyyh/100 WBC (Bld)69.6 %. [facility] CenterNitrite Test strip Ql (U)Ordered By: Alba Bullimore on 85-72-9445Xbrdohl Ql (U)NegativeNegativeSouthview Medical CenterNo Panel InformationOrdered By: Albayehuda Wrenimlila on 41-77-5699Apxrimaph GFR (CKD-EPI)> 60.0 mL/MinSouthview Medical CenterPharmacy Creatinine Clearance (Qfej144.12[facility] CenterNucleated erythrocytes [Presence] in Blood by Automated countOrdered By: Alba Bullimore on 11-01-2022 Nucleated RBC Auto Ql (Bld)0.1 /100{WBC}0-0.5FMercy Health Defiance Hospital Platelet mean volume Auto (Bld) [Entitic vol]Ordered By: Alba Bullimore on 57-91-3365Spnvzeqw mean volume (Bld) [Entitic vol]7.5 fL6.3-10.7FMercy Health Defiance HospitalPlatelets Auto (Bld) [#/Vol]Ordered By: Alba Bullimore on 28-79-3632Fvqzzczku (Bld) [#/Vol]278 10*3/uL412-301CavhmbpnlSouthview Medical CenterPotassium [Moles/volume] in Serum or PlasmaOrdered By: Alba Bullimore on 29-61-6289Rzkmfinzg [Moles/Vol]4.3 mmol/L3.5-5.1FMercy Health Defiance HospitalProtein Auto test strip (U) [Mass/Vol]Ordered By: Alba Bullimore on 14-62-5611Gulvmha (U) [Mass/Vol]NegativeNegativeSouthview Medical CenterProtein [Mass/volume] in Serum or PlasmaOrdered By: Alba Bullimore on 91-08-2893Avmokyv [Mass/Vol]6.8 g/dL6.4-8.9[facility] CenterRBC Auto (Bld) [#/Vol]Ordered By: Alba Marshall on 31-18-5551KVW (Bld) [#/Vol] 4.41 10*6/uL3.60-5.00[facility] Centererum or plasma albumin/globulin mass ratioOrdered By: Albayehuda Wrenr [facility] on 11-01-2022 Albumin/Globulin [Mass ratio]1.2 {ratio}[facility] Centererum or plasma anion gap determinationOrdered By: Albayehuda Ibrahimparkview health [facility] on 92-34-0903Mfmqo gap [Moles/Vol]10.7 mmol/L6.0-15.0[facility] Centererum or plasma non-glucuronidated bilirubin measurement (mass/volume)Ordered By: Albayehuda Wrenr [facility] on 76-90-2562Zszhthnes.indirect [Mass/Vol]0.2 mg/dLSycamore Medical Centerodium [Moles/volume] in Serum or PlasmaOrdered By: Alba Marshall on 34-33-4088Nigzom [Moles/Vol]139 mmol/D831-830OsukqnjndSycamore Medical Centerpecific gravity Auto test strip (U) [Rel density]Ordered By: Albayehuda Wrenr [facility] on 36-23-6661Rcuujepc gravity (U) [Rel density]1.0211.001-1.030 [facility] Centerquamous epithelial cells detection in urine sediment by light microscopyOrdered By: Alba Ibrahimparkview health montpelier hospital on 83-35-9593Zivimtlcix cells.squamous LM Ql (Urine sed)3-4 [HPF]0-2FMercy Health Defiance Hospital Urea nitrogen [Mass/volume] in Serum or PlasmaOrdered By: Alba Ibrahimparkview health montpelier hospital on 64-75-8282Ovvp nitrogen [Mass/Vol]7 mg/dL7-25[facility] Urine bacteria detection by automated methodOrdered By: Alba Ibrahimparkview health montpelier hospital on 93-67-4715Cfmbifkt Auto Ql (U)1+None SeenSouthview Medical Center Comment on above:--- 11/01/22 1050 ---Ur Bact previously reported as: 1+ H Microscopic results may be affected due to low specimen volume.Urine clarity by refractometry automatedOrdered By: Alba Marshall on 14-43-4490Yunswpo Refractometry automated (U)ClearCleTriHealth McCullough-Hyde Memorial HospitalUrine glucose measurement by automated test strip (mass/volume)Ordered By: Alba Marshall on 96-34-3742Ivaqiug Auto test strip (U) [Mass/Vol]Normal mg/dLNoRiverside Methodist HospitalUrine hemoglobin detection by automated test stripOrdered By: Alba Marshall on 88-00-8902Rmerixwmxo Auto test strip Ql (U) 1+NegativeSouthview Medical CenterUrine leukocyte esterase detection by automated test stripOrdered By: Alba Marshall on 11-54-3176Rzlqhmfvz esterase Auto test strip Ql (U)NegativeNegativeSouthview Medical Center Urobilinogen Auto test strip (U) [Mass/Vol]Ordered By: Alba Marshall on 94-31-4063Tyvhsdidxhww (U) [Mass/Vol]Normal mg/dLMercy Health – The Jewish HospitalWBC Auto (Bld) [#/Vol]Ordered By: Alba Marshall on 11-01-2022 WBC (Bld) [#/Vol]7.8 10*3/uL3.8-11.6FMercy Health Defiance HospitalYeast detection in urine sediment by light microscopyOrdered By: Alba Marshall on 58-52-4418Kjkhy LM Ql (Urine sed)None seen [HPF]None SeenSouthview Medical CenterComment on above:--- 11/01/22 1050 ---Ur Yeast previously reported as: None Seen /HPFMicroscopic results may be affected due to low specimen volume.--- 11/01/22 1058 ---Ur Yeast previously reported as: /HPF--- 11/01/22 1050 ---Ur Yeast previously reported as: None Seen /HPFMicroscopic results may be affected due tolow specimen volume.pH Auto test strip (U)Ordered By: Alba Marshall on 78-60-5271xC (U)6.5 [pH]5.0-9.0[facility] Alanine aminotransferase [Enzymatic activity/volume] in Serum or PlasmaOrdered By: Peter Ahumada on 14-58-2847DIQ [Catalytic activity/Vol]8 U/L7-52[facility] CenterAlbumin [Mass/volume] in Serum or Plasma by Bromocresol green (BCG) dye binding methoOrdered By: Peter Ahumada on 78-80-8836Lnpmsnn BCG dye [Mass/Vol]3.8 g/dL3.5-5.7FMercy Health Defiance HospitalAlkaline phosphatase [Enzymatic activity/volume] in Serum or PlasmaOrdered By: Peter Ahumada on 30-63-7359GKY [Catalytic activity/Vol]49 U/L16-611UtwfwrrszSouthview Medical CenterAspartate aminotransferase [Enzymatic activity/volume] in Serum or Plasma Ordered By: Peter Ahumada on 84-10-4204HSN [Catalytic activity/Vol]16 U/L13-39 [facility] CenterBasophils Auto (Bld) [#/Vol]Ordered By: Peter Ahumada on 28-00-7481Waekddmoe (Bld) [#/Vol]0.1 10*3/uL0.0-0.2FMercy Health Defiance HospitalBasophils/100 WBC Auto (Bld)Ordered By: Peter Ahumada on 10-31-2022 Basophils/100 WBC (Bld)0.9 %.[facility] CenterBilirubin.total [Mass/volume] in Serum or PlasmaOrdered By: Peter Ahumada on 04-83-3214Iivbabmwu [Mass/Vol]0.3 mg/dL0.3-1.0[facility] CenterCalcium [Mass/volume] in Serum or PlasmaOrdered By: Peter Ahumada on 51-66-2463Lxgetko [Mass/Vol]9.0 mg/dL8.6-10.3FMercy Health Defiance HospitalCarbon dioxide, total [Moles/volume] in Serum or PlasmaOrdered By: Peter Ahumada on 44-56-4286TS2 [Moles/Vol]25.8 mmol/L21.0-31.0[facility] CenterChloride [Moles/volume] in Serum or PlasmaOrdered By: Peter Ahumada on 49-03-0936Hmzptxyb [Moles/Vol]106 mmol/Y39-859NygorpmtpSouthview Medical CenterCholesterol [Mass/volume] in Serum or PlasmaOrdered By: Peter Ahumada on 04-00-3284Iucodgmynxn [Mass/Vol]152 mg/xQ258-973PnuybdbslSouthview Medical CenterComment on above:Chol less than 200 mg/dl low riskChol 201-239 mg/dl borderline riskChol 240 mg/dl and greater high riskCholesterol in LDL Calc [Mass/Vol]Ordered By: Peter Ahumada on 65-44-1000Burungpillx in LDL [Mass/Vol]74 mg/dL0-100[facility] CenterComment on above:LDL ATP III CLASSIFICATIONLDL less than 100 mg/dL OptimalLDL 100-129 mg/dL Near or above jcglxowZTL550-820 mg/dL Borderline highLDL 160-189 mg/dL HighLDL greater than 189 mg/dL Very highCholesterol in VLDL Calc [Mass/Vol]Ordered By: Peter Ahumada on 46-60-4412Abujozsbgrj in VLDL [Mass/Vol]25 mg/dLSouthview Medical CenterCreatinine [Mass/volume] in Serum or PlasmaOrdered By: Peter Ahumada on 32-37-9608Puyaqmshuz [Mass/Vol]0.55 mg/dL0.60-1.20[facility] CenterEosinophils Auto (Bld) [#/Vol] Ordered By: Peter Ahumada on 93-93-6087Edjwpjngzpr (Bld) [#/Vol]0.2 10*3/uL0.0-0.45 [facility] CenterEosinophils/100 WBC Auto (Bld)Ordered By: Peter Ahumaad on 67-73-9710Xpjkdqrzrey/100 WBC (Bld)2.9 %.[facility] CenterErythrocyte distribution width Auto (RBC) [Ratio]Ordered By: Peter Ahumada on 44-11-0987Efkamwqcywg distribution width (RBC) [Ratio]13.3 %11.9-15.3FMercy Health Defiance HospitalGlobulin Calc (S) [Mass/Vol]Ordered By: Peter Ahumada on 24-86-6985Yqonrrwo (S) [Mass/Vol]2.8 g/dLSouthview Medical Center Glucose [Mass/volume] in Serum or PlasmaOrdered By: Peter Ahumada on 10-31-2022 Glucose [Mass/Vol]98 mg/hN44-983AtolrlusfSouthview Medical CenterComment on above:ADA recommended reference rangeRandom Glucose Reference Range is dependent on time and content of last meal. Glucose of more than 200 mg/dL in a nonstressed, ambulatory subject supports the diagnosisof Diabetes Mellitus. Hematocrit Auto (Bld) [Volume fraction]Ordered By: Peter Ahumada on 10-31-2022 Hematocrit (Bld) [Volume fraction]37.3 %34.0-46.4FMercy Health Defiance HospitalHemoglobin [Mass/volume] in BloodOrdered By: Peter Ahumada on 10-31-2022 Hemoglobin (Bld) [Mass/Vol]12.4 g/dL11.8-15.4FMercy Health Defiance Hospital Leukocytes [#/volume] corrected for nucleated erythrocytes in Blood by Automated counOrdered By: Peter Ahumada on 50-63-3939APR corrected for nucl RBC Auto (Bld) [#/Vol]8.2 10*3/uL3.8-11.6FMercy Health Defiance HospitalLymphocytes Auto (Bld) [#/Vol]Ordered By: Peter Ahumada on 24-99-7113Rbyvzhsposz (Bld) [#/Vol]1.8 10*3/uL1.00-4.8[facility] CenterLymphocytes/100 WBC Auto (Bld) Ordered By: Peter Ahumada on 40-65-3066Rwsoqcubzpq/100 WBC (Bld)21.7 %.[facility] CenterMCH Auto (RBC) [Entitic mass]Ordered By: Peter Ahumada on 83-43-8346SYE (RBC) [Entitic mass]28.0 pg24.7-34.3FMercy Health Defiance HospitalMCHC Auto (RBC) [Mass/Vol]Ordered By: Peter Ahumada on 43-56-2766EGSA (RBC) [Mass/Vol]33.3 g/dL32.0-35.0[facility] CenterMCV Auto (RBC) [Entitic vol]Ordered By: Peter Ahumada on 28-12-5705THY (RBC) [Entitic vol]84.1 fL 80-100[facility] CenterMonocytes Auto (Bld) [#/Vol]Ordered By: Peter Ahumada on 05-26-3549Vqditejld (Bld) [#/Vol]0.5 10*3/uL0.0-0.8[facility] CenterMonocytes/100 WBC Auto (Bld)Ordered By: Peter Ahumada on 00-77-7004Yrifuqagk/100 WBC (Bld)6.2 %.[facility] Neutrophils Auto (Bld) [#/Vol]Ordered By: Peter Ahumada on 42-21-6119Wcmcgtegacc (Bld) [#/Vol]5.6 10*3/uL1.8-7.7FMercy Health Defiance HospitalNeutrophils/100 WBC Auto (Bld)Ordered By: Peter Ahumada on 24-91-9955Ngtqscjnbef/100 WBC (Bld)68.3 %.[facility] CenterNo Panel InformationOrdered By: Peter Ahumada on 33-62-2391Blzzkocvo GFR (CKD-EPI)> 60.0 mL/MinSouthview Medical Center Pharmacy Creatinine Clearance (ChemN/AFMercy Health Defiance HospitalNucleated erythrocytes [Presence] in Blood by Automated countOrdered By: Peter Ahumada on 61-79-0969Ljszychop RBC Auto Ql (Bld)0.1 /100{WBC}0-0.5FMercy Health Defiance HospitalPlatelet mean volume Auto (Bld) [Entitic vol]Ordered By: Peter Ahumada on 75-91-3729Gidbccgh mean volume (Bld) [Entitic vol]8.8 fL6.3-10.7 [facility] CenterPlatelets Auto (Bld) [#/Vol]Ordered By: Peter Ahumada on 51-39-9585Inithxbml (Bld) [#/Vol]305 10*3/lW840-772DujmhlgsrSouthview Medical CenterPotassium [Moles/volume] in Serum or PlasmaOrdered By: Peter Ahumada on 06-44-3962Mvzbuahax [Moles/Vol]4.2 mmol/L3.5-5.1FMercy Health Defiance HospitalProtein [Mass/volume] in Serum or PlasmaOrdered By: Peter Ahumada on 07-29-7333Ynexele [Mass/Vol]6.6 g/dL6.4-8.9[facility] CenterRBC Auto (Bld) [#/Vol]Ordered By: Peter Ahumada on 43-85-0773LHA (Bld) [#/Vol]4.44 10*6/uL3.60-5.00[facility] Centererum or plasma albumin/globulin mass ratioOrdered By: Peter Ahumada on 34-96-3348Vnkbpko/Globulin [Mass ratio]1.4 {ratio}[facility] Centererum or plasma anion gap determinationOrdered By: Peter Ahumada on 32-04-6409Glutk gap [Moles/Vol]11.4 mmol/L6.0-15.0[facility] Centererum or plasma high density lipoprotein (HDL) cholesterol measurementOrdered By: Peter Ahumada on 10-31-2022 Cholesterol in HDL [Mass/Vol]53 mg/fH85-76OypuhpqclSouthview Medical Center Comment on above:HDL CHOL ATP-III CLASSIFICATION Cardiovascular RiskHDL > or equal to 60 mg/dL LOWHDL < 40 mg/dL HIGHSerum or plasma total cholesterol/high density lipoprotein (HDL) cholesterol mass ratOrdered By: Peter Ahumada on 53-15-5492Hydlmwifmcw.total/Cholesterol in HDL [Mass ratio]2.9 {ratio}<5.0 [facility] Centerodium [Moles/volume] in Serum or PlasmaOrdered By: Peter Ahumada on 57-48-1143Blkpvt [Moles/Vol]139 mmol/C565-619JrkxxynlsSouthview Medical CenterThyrotropin [Units/volume] in Serum or PlasmaOrdered By: Peter Ahumada on 21-99-6703UQN Qn0.61 m[IU]/L0.45-5.33[facility] CenterThyroxine (T4) free [Mass/volume] in Serum or PlasmaOrdered By: Peter Ahumada on 16-88-7101Uqfn T4 [Mass/Vol]0.76 ng/dL0.61-1.12[facility] CenterTriglyceride [Mass/volume] in Serum or PlasmaOrdered By: Peter Ahumada on 43-85-1155Rcntifryhrjc [Mass/Vol]125 mg/dL0-149[facility] Comment on above:TRIG ATP III CLASSIFICATIONTRIG less than 150 mg/dL NormalTRIG 150-199 mg/dL Borderline highTRIG 200-500 mg/dL High TRIG greater than 500 mg/dL Very highStandard traceable to the Center for Disease Conrtrol and Prevention (CDC) test method.Urea nitrogen [Mass/volume] in Serum or PlasmaOrdered By: Peter Ahumada on 18-20-4134Fpuk nitrogen [Mass/Vol]6 mg/dL7-25[facility] CenterWBC Auto (Bld) [#/Vol]Ordered By: Peter Ahumada on 64-03-3463WJN (Bld) [#/Vol]8.2 10*3/uL3.8-11.6FMercy Health Defiance HospitalAlbumin [Mass/volume] in Serum or PlasmaOrdered By: Peter Ahumada on 54-91-2569Imrbvrk [Mass/Vol]3.2 g/dL3.2-5.5FMercy Health Defiance HospitalBasophils Auto (Bld) [#/Vol]Ordered By: Peter Ahumada on 16-44-1527Afcgumpau (Bld) [#/Vol]0.0 10*3/uL 0.0-0.2FMercy Health Defiance HospitalBasophils/100 WBC Auto (Bld)Ordered By: Peter Ahumada on 91-00-7410Eqqpwlwap/100 WBC (Bld)0.7 %.[facility] CenterBlood hemoglobin measurement (mass/volume)Ordered By: Peter Ahumada on 06-63-5561Mwldybdxac (Bld) [Mass/Vol]12.3 g/dL11.8-15.4FMercy Health Defiance HospitalBlood leukocytes automated count (number/volume)Ordered By: Peter Ahumada on 18-96-1186MBS (Bld) [#/Vol]5.9 10*3/uL4.5-11.0[facility] CenterCholesterol [Mass/volume] in Serum or PlasmaOrdered By: Peter Ahumada on 36-32-3771Wsodkslvuys [Mass/Vol]159 mg/eT821-031VamietmpcSouthview Medical CenterComment on above:Chol less than 200 mg/dl low riskChol 201-239 mg/dl borderline riskChol 240 mg/dl and greater high riskCholesterol in LDL Calc [Mass/Vol]Ordered By: Peter Ahumada on 27-70-4716Fvuwxjjrrop in LDL [Mass/Vol]84 mg/dL0-100[facility] CenterComment on above:LDL ATP III CLASSIFICATIONLDL less than 100 mg/dL OptimalLDL 100-129 mg/dL Near or above pqhfxtuCZO138-386 mg/dL Borderline highLDL 160-189 mg/dL HighLDL greater than 189 mg/dL Very highCholesterol in VLDL Calc [Mass/Vol]Ordered By: Peter Ahumada on 21-58-5873Xidlouzjmpm in VLDL [Mass/Vol]22 mg/dLSouthview Medical CenterCreatinine and Glomerular filtration rate.predicted panel (S/P/Bld)Ordered By: Peter Ahumada on 68-21-8259Orkqssnkhx [Mass/Vol]0.58 mg/dL0.44-1.03[facility] CenterEosinophils Auto (Bld) [#/Vol]Ordered By: Peter Ahumada on 21-22-2719Mubsovtdpzh (Bld) [#/Vol]0.1 10*3/uL0.0-0.45[facility] CenterEosinophils/100 WBC Auto (Bld)Ordered By: Peter Ahumada on 04-19-2022 Eosinophils/100 WBC (Bld)2.4 %.[facility] CenterErythrocyte distribution width Auto (RBC) [Ratio]Ordered By: Peter Ahumada on 04-19-2022 Erythrocyte distribution width (RBC) [Ratio]13.4 %11.9-15.3FMercy Health Defiance HospitalEstimated glomerular filtration rate (GFR) non- Ordered By: Peter Ahumada on 41-31-7761FYN/1.73 sq M.predicted among non-blacks MDRD (S/P/Bld) [Vol rate/Area]> 60 mL/MinSouthview Medical Center Globulin Calc (S) [Mass/Vol]Ordered By: Peter Ahumada on 91-24-9170Jmruvhcz (S) [Mass/Vol]3.1 g/dLSouthview Medical CenterHematocrit Auto (Bld) [Volume fraction]Ordered By: Peter Ahumada on 24-82-4874Ngyzdlvytt (Bld) [Volume fraction] 37.1 %34.0-46.4FMercy Health Defiance HospitalLaboratory - Hematology and Cell countsOrdered By: Peter Ahumada on 98-22-2810Dckxnbhpj RBC/100 WBC (Bld) [Ratio]0.1 %0-0.5FMercy Health Defiance HospitalLymphocytes Auto (Bld) [#/Vol]Ordered By: Peter Ahumada on 90-18-0139Dbonkpjltkv (Bld) [#/Vol]1.7 10*3/uL1.00-4.8 [facility] CenterLymphocytes/100 WBC Auto (Bld)Ordered By: Peter Ahumada on 21-13-3328Vahehkoqggu/100 WBC (Bld)28.8 %.[facility] Auto (RBC) [Entitic mass]Ordered By: Peter Ahumada on 20-80-5045ABA (RBC) [Entitic mass]27.8 pg24.7-34.3FMercy Health Defiance HospitalMCHC Auto (RBC) [Mass/Vol]Ordered By: Peter Ahumada on 71-10-3427BKAC (RBC) [Mass/Vol]33.2 g/dL 32.0-35.0[facility] CenterMCV Auto (RBC) [Entitic vol]Ordered By: Peter Ahumada on 04-19-8377AGI (RBC) [Entitic vol]83.6 qP09-918LsuoetfgfSouthview Medical CenterMonocytes Auto (Bld) [#/Vol]Ordered By: Peter Ahumada on 27-84-1657Ktmerqaol (Bld) [#/Vol]0.4 10*3/uL0.0-0.8[facility] CenterMonocytes/100 WBC Auto (Bld)Ordered By: Peter Ahumada on 04-19-2022 Monocytes/100 WBC (Bld)6.6 %.[facility] CenterNeutrophils Auto (Bld) [#/Vol]Ordered By: Peter Ahumada on 39-51-2182Zrwydhnmnyg (Bld) [#/Vol]3.6 10*3/uL1.8-7.7FMercy Health Defiance HospitalNeutrophils/100 WBC Auto (Bld) Ordered By: Peter Ahumada on 31-18-7681Thafiudmler/100 WBC (Bld)61.5 %.[facility] CenterNo Panel InformationOrdered By: Peter Ahumada on 04-19-2022 Estimated GFR ()> 60 mL/MinSouthview Medical Center Comment on above:GFR estimated reference range: According to KDOQI guidelines, <60 ml/min/1.73m2 is sufficient todiagnose a patient with chronic kidney disease.Pharmacy Creatinine Clearance (ChemN/[facility] Platelet mean volume Auto (Bld) [Entitic vol]Ordered By: Peter Ahumada on 47-78-8020Ioofatkz mean volume (Bld) [Entitic vol]8.9 fL6.3-10.7FMercy Health Defiance HospitalPlatelets Auto (Bld) [#/Vol]Ordered By: Peter Ahumada on 80-22-5672Kytfdakec (Bld) [#/Vol]319 10*3/pK488-121ZhipezqykSouthview Medical CenterProtein [Mass/volume] in Serum or PlasmaOrdered By: Peter Ahumada on 58-37-7957Jckxyfn [Mass/Vol]6.3 g/dL6.1-7.9[facility] CenterRBC Auto (Bld) [#/Vol]Ordered By: Peter Ahumada on 62-32-1376ZDF (Bld) [#/Vol]4.43 10*6/uL3.60-5.00[facility] Centererum or plasma alanine aminotransferase measurement without P-5'-P (enzymatic activiOrdered By: Peter Ahumada on 96-21-2822MNZ No additional P-5'-P [Catalytic activity/Vol]9 U/L10-60 [facility] Centererum or plasma albumin/globulin mass ratio Ordered By: Peter Ahumada on 51-98-2249Ysderku/Globulin [Mass ratio]1.0 {ratio} [facility] Centererum or plasma alkaline phosphatase measurement (enzymatic activity/volume)Ordered By: Peter Ahumada on 13-60-4597PKD [Catalytic activity/Vol]41 U/G66-77RxivhcyyoSycamore Medical Centererum or plasma anion gap determinationOrdered By: Peter Ahumada on 29-71-2107Zrgmr gap [Moles/Vol]13.9 mmol/L6.0-15.0[facility] Centererum or plasma aspartate aminotransferase measurement (enzymatic activity/volume)Ordered By: Peter Ahumada on 87-08-7361ENK [Catalytic activity/Vol]15 U/K36-77RihtsmmvfSycamore Medical Centererum or plasma calcium measurement (mass/volume)Ordered By: Peter Ahumada on 67-26-8729Wqyoxxe [Mass/Vol]8.8 mg/dL8.2-10.2FNorwalk Memorial Hospitalerum or plasma chloride measurement (moles/volume) Ordered By: Peter Ahumada on 64-93-8875Ccgyrxhj [Moles/Vol]100 mmol/L95-114 [facility] Centererum or plasma glucose measurement (mass/volume)Ordered By: Peter Ahumada on 49-87-0799Kuasrza [Mass/Vol]87 mg/dL 70-100[facility] CenterComment on above:ADA recommended reference rangeRandom Glucose Reference Range is dependent on time and content of last meal. Glucose of more than 200 mg/dL in a nonstressed, ambulatory subject supports the diagnosisof Diabetes Mellitus.Serum or plasma high density lipoprotein (HDL) cholesterol measurementOrdered By: Peter Ahumada on 04-19-2022 Cholesterol in HDL [Mass/Vol]53 mg/xC32-80LakafnkaaSouthview Medical Center Comment on above:HDL CHOL ATP-III CLASSIFICATION Cardiovascular RiskHDL > or equal to 60 mg/dL LOWHDL < 40 mg/dL HIGHSerum or plasma potassium measurement (moles/volume)Ordered By: Peter Ahumada on 09-24-8293Hbmzhhpjw [Moles/Vol]3.9 mmol/L3.5-5.1FNorwalk Memorial Hospitalerum or plasma sodium measurement (moles/volume)Ordered By: Peter Ahumada on 14-50-6634Xamuvz [Moles/Vol]136 mmol/L 136-146[facility] Centererum or plasma total bilirubin measurement (mass/volume)Ordered By: Peter Ahumada on 48-29-5381Gaoegdoox [Mass/Vol]0.4 mg/dL0.3-1.2FNorwalk Memorial Hospitalerum or plasma total carbon dioxide measurement (moles/volume)Ordered By: Peter Ahumada on 04-19-2022 CO2 [Moles/Vol]26.0 mmol/L22.0-30.0[facility] Centererum or plasma total cholesterol/high density lipoprotein (HDL) cholesterol mass rat Ordered By: Peter Ahumada on 33-23-6881[place].total/Cholesterol in HDL [Mass ratio]3.0 {ratio}<5.0[facility] Centererum or plasma urea nitrogen measurement (mass/volume)Ordered By: Peter Ahumada on 20-83-5243Ojgs nitrogen [Mass/Vol]5 mg/dL9-23[facility] CenterTS DL <= 0.005 mIU/L QnOrdered By: Peter Ahumada on 43-98-5952OJV Qn1.94 m[IU]/L0.45-5.33[facility] CenterThyroxine (T4) free [Mass/volume] in Serum or Plasma Ordered By: Peter Ahumada on 39-18-2873Izkq T4 [Mass/Vol]0.69 ng/dL0.61-1.12 [facility] CenterTriglyceride [Mass/volume] in Serum or Plasma Ordered By: Peter Ahumada on 28-14-9770Uvrbkrynqdks [Mass/Vol]111 mg/uQ62-971 [facility] CenterComment on above:TRIG ATP III CLASSIFICATIONTRIG less than 150 mg/dL NormalTRIG 150-199 mg/dL Borderline highTRIG 200-500 mg/dL High TRIG greater than 500 mg/dL Very highStandard traceable to the Center for Disease Conrtrol and Prevention (CDC) test method. Silvana [id number] Visit ([id number]) DARLING KHANNA ([id number]) 1980 F Date Time Provider Department 10/13/21 1:30 PM KATE DANIEL [id number] During your visit today, we recorded the following information about you: Temperature Pulse Blood pressure Weight 97.7 degrees 68/minute 112/55 115.2 kg Height 1.829 m Kate Daniel MD 10/17/2021 1:50 PM Signed Assessment ESTABLISHED PATIENT Darling Khanna is a 40 year old female with a right posterior liver subcapsular fluid collection ? 03/03/2021: Patient presented to [facility] on 02/08/2021 for 2 days for acute ride sided abdominal/flank pain, right shoulder discomfort and nausea. She was diagnosed with Klebsiella pneumoniae UTI and was discharged with oral keflex and zofran. Patient represented to ER on 02/09/2021 for the continued complaints of pain. ? Referral From:?PCP- Peter Ahumada, DO Reason:?right abdominal pain pain; liver?fluid collection? ? Received Records From:? 02/08/2021 ER Report [facility] 02/09/2021 ER Report [facility] 02/15/2021 PCP Office note ? [...] improving. US of ovaries yesterday at [facility]. Scheduled for upper GI at end of month. Gained?50 pounds since July?(was in [place] for 3 months, drank a lot); diagnosed [...] well. She did spend 3 months in [place] and did not have any issues, hospitalizations [...] which included preparing to see the patient, bmey-ad-wjgy patient care and completing clinical documentation. MD Jayne Garrido Ma 10/13/2021 1:33 PM Signed What is the reason for your visit today? Follow up Who is your referring physician? Are you having poor oral intake? NO Have you had unintentional weight loss of 15 lbs/7 Kg in the last 3-6 months? NO Bowels: regular Wound: Temperature: No Drains: No Referring Provider: KATE DANIEL [[id number]] Allergies As of Date: 10/13/2021 Noted Allergy [...] Comments as of 05/10 (more content not included)...NormalBarnesville Hospitalon [id number] ([id number]) DARLING KHANNA ([id number]) 1980 F Date Time Provider Department 09/30/21 KATE DAINEL [id number] During your visit today, we recorded the following information about you: Sujatha Tomas 09/30/2021 9:00 AM Signed Called patient to reschedule her 10/13 in person to virtual. She would like to keep in person. She also wants to know if a CT or MRI can be ordered of her pancreas abdomen as she hasn't had anything done recently. She can be reached at [phone]. Talat Armendariz RN 10/10/2021 11:29 AM Signed [...] Encounter Status:Closed by TALAT ARMENDARIZ RN on 10/10/21[facility] [id number] Visit ([id number]) DARLING KHANNA ([id number]) 1980 F Date Time Provider Department 04/07/21 2:30 PM KATE DANIEL [id number] During your visit today, we recorded the following information about you: Temperature Pulse Blood pressure Weight 97.5 degrees 95/minute 136/77 109.3 kg Height 1.829 m Jayne Aguila Id 04/07/2021 2:31 PM Signed What is the [...] subcapsular fluid collection 03/03/2021: Patient presented to [facility] on 02/08/2021 for 2 days for acute ride sided abdominal/flank pain, right shoulder discomfort and nausea. She was diagnosed with Klebsiella pneumoniae UTI and was discharged with oral keflex and zofran. Patient represented to ER on 02/09/2021 for the continued complaints of pain. ? Referral From:?PCP- Peter Ahumada, DO Reason:?right abdominal pain pain; liver?fluid collection? ? Received Records From:? 02/08/2021 ER Report [facility] 02/09/2021 ER Report [facility] 02/15/2021 PCP Office note ? [...] improving. US of ovaries yesterday at [facility]. Scheduled for upper GI at end of month. Gained 50 pounds since July (was in [place] for 3 months, drank a lot); diagnosed [...] which included preparing to see the patient, vdwp-uj-vdkg patient care and completing clinical documentation. Kate Daniel MD Referring Provider: KATE DANIEL [[id number]] Allergies As of Date: 04/07/2021 Noted Allergy [...] 11/26/2017 Visit Notes: >> Jayne Aguila Ma [facility] Apr 07, 2021 2:28 PM Status: Signed What is the reason for your visit today? Follow up Who is your referring physician? Are you having poor oral intake? NO Have you had unintentional weight loss of 15 lbs/7 Kg in the last 3-6 months? NO Bowels: regular Wound: Temperature: No (more content not included)...NormalK[facility] [id number] Team (GENN) DARLING KHANNA ([id number]) 1980 F Date Time Provider Department 03/22/21 [...] findings to suggest etiology Pre-conference plan (from [employer]): - Observation and serial imaging Imaging Review: [...] Encounter Status:Closed by WILLIAM DE LEÓN on 03/23/21[facility] [id number] Visit ([id number]) DARLING KHANNA ([id number]) 1980 F Date Time Provider Department 03/03/21 10:00 AM KATE DANIEL [id number] During your visit today, we recorded the following information about you: Temperature Pulse Blood pressure Weight 98.3 degrees 82/minute 128/85 112 kg Height 1.829 m Jayne [facility] 03/03/2021 10:03 AM Signed What is [...] 40 year old female Patient presented to [facility] on 02/08/2021 for 2 days for [...] ? Received Records From: 02/08/2021 ER Report [facility] 02/09/2021 ER Report [facility] 02/15/2021 PCP Office note Visited [...] improving. US of ovaries yesterday at [facility]. Scheduled for upper GI at end of month. Gained 50 pounds since July (was in [place] for 3 months, drank a lot); diagnosed [...] was malignant. Seen by Dr. Lara on [facility], in [facility]; denies chemotherapy or radiation. Hernia repair [...] Ht 182.9 cm (6') (more content not included)...NormalWexner Medical CenterCNPNon 14-94-1344WGROUahlcgwar ([facility]) DARLING KHANNA ([id number]) 1980 F Date Time Provider Department 02/23/21 KATE DANIEL [facility] During your visit today, we recorded the following information about you: Talat Armendariz RN 02/23/2021 10:02 AM Addendum Hepatobiliary Surgery Consult HPI: Patient presented to [facility] on 02/08/2021 for 2 days for [...] collection Received Records From: 02/08/2021 ER Report [facility] 02/09/2021 ER Report [facility] 02/15/2021 PCP Office note Records Review BMI 33 Current OCP Imagin02/08/2021 CT A/P wo IVCON (Report [facility]- report rec'd) - minor basilar atelectasis or scarring - nonspecific lymph nodes - tiny umbilical hernia containing fat - no intra hepatic masses are noted - no bowel or urinary tract obstructions - no acute findings 02/08/2021 Ultrasound RUQ (Report [facility]- report rec'd) - unremarkable - no evidence of gallstones, gallbladder wall thickening, or ductal dilation 02/15/2021 CT A/P w IVCON (Report [facility]- report rec'd) - no acute abdominal or pelvis abnormality - indeterminate liver lesion: ill defined low attenuation lesion measuring at least 2.5cm in the medial segment of the left lobe of the liver posteriorly 02/17/2021 MRI Abdomen w/wo IVCON (Report [facility]- report rec'd) - unremarkable size [...] CT A/P w IVCON (Report [facility]- report rec'd) - 62mm x [...] 8:26 AM Signed Patient's records scanned into [employer] and imaging downloaded from [facility] AND [place], please review. Tatyana Leroy 02/25/2021 9:53 AM Signed Scheduled patient for new consult on 03/03/2021. 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 Reason for Visit: Digital Imager - Other [3602] Consult [173] Prescriptions as [...] 11/26/2017 Encounter Status:Closed by TATYANA PEDRO on 02/25/21[facility] Medical CenterAMYLASEon [id number] [Catalytic activity/Vol]48 U/LNormal 31-110The [facility] CenterComment on above:Performed By: #### LIPA, CMP, SHAI #### [facility] [address] [address] Ruy KarenCBC AUTO DIFFon 73-88-8791TUUH #0.1 103/ulNormal0.0-0.1The [facility] Medical CenterComment on above:Performed By: #### CBC #### [facility] [address] [id number] Ruy KarenBasophils/100 WBC (Bld)0.7 %Normal0.2-2.0The [facility] Comment on above:Performed By: #### CBC #### [facility] [address] [address] Ruy KarenEO #0.1 103/ulNormal0.0-0.7The [facility] CenterComment on above: Performed By: #### CBC #### [facility] [address] [place] [address] Ruy KarenEosinophils/100 WBC (Bld)1.2 %Normal0.9-7.0The [facility] Comment on above:Performed By: #### CBC #### [facility] [address] [place] [address] Ruy KarenErythrocyte distribution width (RBC) [Ratio]12.6 %Hwcmig68.0-15.0The [facility] CenterComment on above:Performed By: #### CBC #### [facility] [address] [place] [address] Ruy KarenHematocrit (Bld) [Volume fraction]38.7 %Uaoeqr93.0-48.0The [facility] CenterComment on above:Performed By: #### CBC #### [facility] [address] [place] [address] Ruy KarenHemoglobin (Bld) [Mass/Vol]12.6 g/oVLbkliw79.0-16.0The [facility] CenterComment on above:Performed By: #### CBC #### [facility] [address] [place] [address] Ruy KarenIG #0.02 10e3/ulNormal0.00-0.03The [facility] CenterComment on above:Performed By: #### CBC #### [facility] [address] [place] [address] Ruy KarenIG %0.2 %Normal0.0-0.5The [facility] CenterComment on above: Performed By: #### CBC #### [facility] [address] [place] [address] Ruy KarenLYMPH #2.4 103/ulNormal1.2-3.8The [facility] CenterComment on above: Performed By: #### CBC #### [facility] [address] [id number] Ruy KarenLymphocytes/100 WBC (Bld)22.4 %Ewgwiy86.5-60.0[facility] Comment on above:Performed By: #### CBC #### [facility] [address] [place], [place] [address] Ruy KarenMANUAL DIFF REQNONormalThe [facility] CenterComment on above: Performed By: #### CBC #### [facility] [address] [address] Ruy KarenMCH (RBC) [Entitic mass]27.7 yyAebscp48.7-34.0The [facility] Comment on above:Performed By: #### CBC #### [facility] [address] [place] [address] Ruy KarenMCHC (RBC) [Mass/Vol]32.6 g/oYTwqbqv90.9-35.2[facility] Comment on above:Performed By: #### CBC #### [facility] [address] [place] [address] Ruy KarenMCV (RBC) [Entitic vol]85.1 yBHwsowt18.0-99.0[facility] Comment on above:Performed By: #### CBC #### [facility] [address] [place] [address] Ruy KarenMONO #0.7 103/ulNormal0.3-0.8The [facility] CenterComment on above: Performed By: #### CBC #### [facility] [address] [place] [address] Ruy KarenMonocytes/100 WBC (Bld)6.5 %Normal1.7-12.0The [facility] Comment on above:Performed By: #### CBC #### [facility] [address] [place] [address] Ruy KarenNEUT #7.3 103/ulCritically high1.4-6.5The [facility] CenterComment on above:Performed By: #### CBC #### [facility] [address] [place], [place] [address] Ruy CardozoenNeutrophils/100 WBC (Bld)69.0 %Nwcoyk69.0-75.0The [facility] Comment on above:Performed By: #### CBC #### [facility] [address] [place] [address] Ruy CardozoenPlatelet mean volume (Bld) [Entitic vol]9.3 fLCritically low9.5-13.5 The [facility] CenterComment on above:Performed By: #### CBC #### [facility] [address] [place] [address] Ruy XncfaXIB141 103/szWlzyef051-820Bvj [facility] CenterComment on above: Performed By: #### CBC #### [facility] [address] [place] [address] Ruy KarenRBC4.55 106/ulNormal4.20-5.40The [facility] CenterComment on above: Performed By: #### CBC #### [facility] [address] [place] [address] Ruy CardozoenWBC10.6 103/ulNormal4.0-11.0The [facility] CenterComment on above: Performed By: #### CBC #### [facility] [address] [place] [address] Ruy KarenCT ABD/PELV W CONon 39-18-9350HI ABD/PELV W CONEXAMINATION: CT ABD/PELV W CON [...] authenticated by: LUZ MARINA HERNANDEZ Date: 2021-02-22 03:10NoSt. Anthony's HospitalD-DIMERon 34-18-7957M-DIMER0.40 mg/L FEUNormal0.19-0.50The [facility] CenterComment on above:Performed By: #### DDIM #### [facility] [address] [place] [address] Wedia KarenD-DIMER COMMENTSSEE BELOWOhioHealth Riverside Methodist HospitalComment on above:Result Comment: Increases in D-Dimer concentration [...] Performed By: #### DDIM #### [facility] [address] [place] [address] Ruy KarenLIPASEon 57-33-7297Ghyhga [Catalytic activity/Vol]120.0 U/LNormal 23.0-300.0The [facility] CenterComment on above:Performed By: #### LIPA, CMP, SHAI #### [facility] [address] [place] [address] Ruy KarenMONOon 33-37-9663Wyxqoodel (Bld) [#/Vol]NegativeNormalNEGATIVEThe [facility] Medical CenterComment on above:Performed By: #### MONO #### [facility] [address] [place] [address] Ruy KarenOT-CT ABD/PELVIS W CON IMPORTon 58-80-6495HA-CT ABD/PELVIS W CON IMPORTImages were obtained outside of [facility] [id number] Behavioral HospitalOT-CT ABD/PELVIS W CON IMPORTImages were obtained outside of [facility] [id number] Behavioral HospitalPREG HCG QUALon 02-22-2021 , QUALNegativeNormalNEGATIVEThe [facility] CenterComment on above: Performed By: #### PREG #### [facility] [address] [place] [address] Ruy KarenPROF 14(COMP METB)on 49-56-2188Bpyuwcp [Mass/Vol]3.2 g/dLCritically low3.5-5.0The [facility] CenterComment on above:Performed By: #### SYEDA CMP, SHAI #### [facility] [address] [place] [address] Ruy KarenAlbumin/Globulin [Mass ratio]0.7 {ratio}NormalOhiohealth Van [facility]ert Hospital Comment on above:Performed By: #### SYEDA CMP, SHAI #### [facility] [address] [place] [address] Ruy KarenALP [Catalytic activity/Vol]54 U/KCstodr74-357KrkOhiohealth Van Wert Hospital Comment on above:Performed By: #### LIPLilly CMP, SHAI #### [facility] [address] [place] [address] Ruy KarenALT [Catalytic activity/Vol]11 U/LNormal9-52The [facility] Comment on above:Performed By: #### LIPA, CMP, SHAI #### [facility] [address] [place] [address] Ruy KarenAnion gap [Moles/Vol]11.6 mmol/LNormalThe [facility] CenterComment on above:Performed By: #### LIPA, CMP, SHAI #### [facility] [address] [place] [address] Ruy KarenAST [Catalytic activity/Vol]12 U/LCritically jay41-77XzfOhiohealth Van Wert HospitalComment on above:Performed By: #### KARLI LANDA, SHAI #### [facility] [address] [place] [address] Ruy KarenBilirubin [Mass/Vol]0.2 mg/dLNormal0.2-1.3The [facility] Comment on above:Performed By: #### KARLI LANDA, SHAI #### [facility] [address] [place] [address] Ruy KarenCalcium [Mass/Vol]9.2 mg/dLNormal8.4-10.2The [facility] Comment on above:Performed By: #### KARLI LANDA, SHAI #### [facility] [address] [place] [address] Ruy KarenChloride [Moles/Vol]104 mmol/YVbfkmd81-083UjiOhiohealth Van Wert Hospital Comment on above:Performed By: #### KARLI LANDA, SHAI #### [facility] [address] [place] [address] Ruy KarenCO2 [Moles/Vol]29.7 mmol/QXxkdru88.0-30.0[facility] Comment on above:Performed By: #### KARLI LANDA, SHAI #### [facility] [address] [place] [address] Ruy KarenCreatinine [Mass/Vol]0.74 mg/dLNormal0.52-1.04[facility] Comment on above:Performed By: #### SYEDA CMP, SHAI #### [facility] [address] [place] [address] Ruy KarenEGFR-AF COOK ISLANDER>60Normal>=60The [facility] CenterComment on above: Performed By: #### SYEDA CMP, SHAI #### [facility] [address] [place] [address] Ruy KarenEGFR-NON AF COOK ISLANDER>60Normal>=60The [facility] CenterComment on above:Performed By: #### SYEDA CMP, SHAI #### [facility] [address] [address] Ruy KarenGlobulin (S) [Mass/Vol]4.4 g/dLNormBellevue HospitalComment on above:Performed By: #### KARLI LANDA, SHAI #### [facility] [address] [address] Ruy KarenGlucose [Mass/Vol]104 mg/pZHaannr67-098Uer [facility] CenterComment on above:Performed By: #### KARLI LANDA, SHAI #### [facility] [address] [place] [address] Ruy KarenPotassium [Moles/Vol]4.3 mmol/LNormal3.4-5.0The [facility] Comment on above:Performed By: #### KARLI LANDA, SHAI #### [facility] [address] [place] [address] Ruy KarenProtein [Mass/Vol]7.6 g/dLNormal6.1-8.2The [facility] CenterComment on above:Performed By: #### KARLI LANDA, SHAI #### [facility] [address] [place] [address] Ruy KarenSodium [Moles/Vol]141 mmol/OPxmiss498-414Tiz [facility] Comment on above:Performed By: #### KARLI LANDA, SHAI #### [facility] [address] [place] [address] Ruy KarenUrea nitrogen [Mass/Vol]9.0 mg/dLNormal7.0-17.0The [facility] Comment on above:Performed By: #### KARLI LANDA, SHAI #### [facility] [address] [place] [address] Ruy KarenUrea nitrogen/Creatinine [Mass ratio]12.2 mg/mgNoSt. Anthony's HospitalComment on above:Performed By: #### KARLI LANDA, SHAI #### [facility] [address] [place] [address] Ruy KarenMR-MR abdomen wo/w con IMPORTon 46-16-2362VH-MR abdomen wo/w con IMPORTImages were obtained outside of [facility] [id number] Behavioral HospitalCT-CT abdomen pelvis w con IMPORTon 59-47-0579KV-CT abdomen pelvis w con IMPORTImages were obtained outside of [facility] [id number]_IDCSIACNNACMC Healthcare System ClevelandCT-CT abdomen pelvis wo con IMPORTon 13-95-7641NP-CT abdomen pelvis wo con IMPORTImages were obtained outside of [facility] [id number]_IDCSIACNNGeorgetown Behavioral HospitalUS-US gall bladder IMPORT on 42-46-1670PP-US gall bladder IMPORTImages were obtained outside of [facility] [id number]_IDCSIACNNGeorgetown Behavioral HospitalCNOVon 04-91-3451JJXT Office Visit (LOORRM) DARLING KHANNA ([id number]) 1980 F Date Time Provider Department 12/28/20 3:30 PM CAST TECH YANIRA WISESilva During your visit today, we recorded the following information about you: Tracey Hair Ma 12/28/2020 4:25 PM Signed Dispensed XL/XXL Reaction brace for the Right knee. Dispensed by O Chisel Worker. Instructions were given on application/adjustments. She will f/u as scheduled/prn. Tracey Hair MA,ROT Referring Provider: ISHAN YUSUF [[id number]] Allergies As of Date: 12/28/2020 Noted Allergy [...] Encounter Status:Closed by TRACEY HAIR MA on 12/28/20[facility] Visit (LOORRM) DARLING KHANNA ([id number]) 1980 F Date Time Provider Department 12/28/20 [...] was performed today. CLINICAL IMPRESSION / ASSESSMENT: (P36.967C) Closed nondisplaced fracture of proximal phalanx of [...] little finger with routine healing, subsequent encounter [S64.286H] Other Visit Diagnosis:Patellofemoral arthralgia of right knee [...] 11/26/2017 Encounter Status:Closed by ISHAN YUSUF on 12/28/20[facility] 56-90-9052BPUYOyhivj Visit (LOORRM) DARLING KHANNA ([id number]) 1980 F Date Time Provider Department 11/30/20 [...] results and radiologist's interpretation, available in the [facility] health record. Images were reviewed with the patient/family members in the office today. My personal interpretation of the performed imaging is healing proximal phalanx fracture CLINICAL IMPRESSION / ASSESSMENT: (G58.821M) Closed nondisplaced fracture of proximal phalanx of [...] little finger with routine healing, subsequent encounter [T24.156I] Order(s):XR HAND GENERAL 3V PA/LAT/OBL LT [0700119] Order #: [id number] FUTURE CONSULT TO TERADATA DEVELOPER [[id number]] Order #: [id number]: 1 FUTURE Prescriptions as of 11/30/2020 Sig: [...] 11/26/2017 Encounter Status:Closed by ISHAN YUSUF on 11/30/20[facility]XR [facility]V PA/LAT/OBL LTon 66-26-3146ZJ HAND 3V PA/LAT/OBL LT* * *Final Report* [...] fractures. IMPRESSION: Healing 5th proximal phalanx fracture Piece Dye Worker: WILBERT Transcribe Date/Time: Nov 30 2020 4:18P Dictated by : JUDITH FUENTES MD This examination was interpreted and the report reviewed and electronically signed by: JUDITH FUENTES MD on Nov 30 2020 4:19PM EST [id number] Medical CenterXR Hand - left PA and Lateral and Obliqueon 29-09-3372MTJSWOWAYK: Healing 5th proximal phalanx fracture Piece Dye Worker: WILBERT Transcribe Date/Time: Nov 30 2020 [...] healing. No additional fractures. DIVISION OF RADIOLOGYProvider, [facility] - 11/30/2020 * * *Final Report* * [...] IMPRESSION IMPRESSION: Healing 5th proximal phalanx fracture Piece Dye Worker: PSCB Transcribe Date/Time: Nov 30 2020 4:18P Dictated by : JUDITH FUENTES MD This examination was interpreted and the report reviewed and electronically signed by: JUDITH FUENTES MD on Nov 30 2020 4:19PM [facility] HospitalRadiology Study observation (narrative)[facility] HospitalXR Hand - left PA and Lateral and ObliqueOrdered By: [facility] Provider on 99-95-1083Rbygrtyqr ClinicCNOVon 87-50-9845IAOYNcqytl Visit (LOORRM) DARLING KHANNA ([id number]) 1980 F Date Time Provider Department 11/18/20 [...] results and radiologist's interpretation, available in the [facility] health record. Images were reviewed with the patient/family members in the office today. My personal interpretation of the performed imaging is intra-articular proximal phalanx fracture CLINICAL IMPRESSION / ASSESSMENT: (H87.732C) Closed nondisplaced fracture of proximal phalanx of [...] phalanx of left little finger, initial encounter [S60.602L] Order(s):XR HAND GENERAL 3V PA/LAT/OBL LT [[id number]] Order #: [id number] FUTURE Prescriptions as of 11/18/2020 Sig: OMEPRAZOLE [...] Encounter Status:Closed by PARAMJIT ISHAN Gallo on 11/18/20NoTriHealthXR HAND 3V PA/LAT/OBL LTon [id number] HAND 3V PA/LAT/OBL LT* * *Final Report* [...] unchanged. IMPRESSION: Healing fifth proximal phalanx fracture. Piece Dye Worker: WILBERT Transcribe Date/Time: Nov 18 2020 8:15P Dictated by : ADRIANE CAMPOS MD This examination was interpreted and the report reviewed and electronically signed by: ADRIANE CAMPOS MD on Nov 18 2020 8:27PM EST [id number] Medical CenterXR Hand - left PA and Lateral and Obliqueon [id number]: Healing fifth proximal phalanx fracture. Piece Dye Worker: PSCB Transcribe Date/Time: Nov 18 2020 8:15P [...] new fracture. Remainder unchanged. DIVISION OF RADIOLOGYProvider, [facility] [place] - 11/18/2020 * * *Final Report* * [...] IMPRESSION IMPRESSION: Healing fifth proximal phalanx fracture. Piece Dye Worker: PSCB Transcribe Date/Time: Nov 18 2020 8:15P Dictated by : ADRIANE CAMPOS MD This examination was interpreted and the report reviewed and electronically signed by: ADRIANE CAMPOS MD on Nov 18 2020 8:27PM [facility] (narrative)[facility] PA and Lateral and ObliqueOrdered By: [facility] Provider on [id number] ClinicCNOV [id number] Visit (ORAVON) DARLING KHANNA ([id number]) 1980 F Date Time Provider Department 11/04/20 2:00 PM BOB MILLAN During your visit today, we recorded the following information about you: Bob Millan DO 11/04/2020 2:12 PM Signed [facility] Office Visit Documentation Note [facility] Sports Medicine Orthopaedic and Rheumatologic [place] REASON FOR VISIT / CHIEF COMPLAINT SERVICE [...] results and radiologist's interpretation, available in the [facility] health record. Images were reviewed with the patient/family members in the office today. My personal interpretation of the performed imaging is Has IA prox phalanx fracture at PIP ASSESSMENT / PLAN CLINICAL IMPRESSION / ASSESSMENT: (T52.222Q) Closed nondisplaced fracture of proximal phalanx of [...] plan as detailed above. Bob Millan D.O. [facility] Orthopaedic and Rheumatologic [place] Team Physician, [facility] Consulting Physician, [facility] Dayan Landeros, [place] Room Attendant [phone] Patient verbalizes understanding and agrees with the treatment plan as detailed above. Referring Provider: SELF [[id number]] Allergies As of Date: 11/04/2020 Noted Allergy Reaction INDOMETHACIN 05/10/2018 7 - Swelling Date Reviewed: 11/04/2020 Reviewed by: Juaquin Farmer - Fully Assessed Reason for Visit: New [[id number]] Primary Visit Diagnosis:Closed nondisplaced fracture of proximal phalanx of left little finger, initial encounter [R52.737A] Prescriptions as of 11/04/2020 Sig: OMEPRAZOLE 40 [...] for Dr. Yusuf or Shayla Silva in [place]. Follow-up and Disposition History Recorded Encounter Status:Closed by BOB MILLAN DO on 11/04/20NoTriHealthDX-XR HAND COMPLETE LEFT IMPORTon 61-12-0410FH-XR HAND COMPLETE LEFT IMPORTImages were obtained outside of [facility] [id number] Medical Center Vital Signs Date TimeVital SignValuePerforming JiwiupnamZddaqvyv71-69-5644 08:04-0400Body nbtihp915.88 cmPeter Shens DO Work Phone: [phone] [place], [place] 1724110-29-2025 08:04-0400 Body mass index (BMI) [Ratio]30.7 kg/s6BewtaPeter Shens DO Work Phone: [phone]10-29-2025 08:04-0400 Body wsogzx236.96 kgPeter Shens DO Work Phone: [phone] [place], [place] 1724110-29-2025 08:04-0400 Diastolic blood zympekbd34 mm[Hg]Peter Shens DO Work Phone: 1(299)672-[address] [place], [place] 1724110-29-2025 08:04-0400 Heart rate91 /minPeter Shens DO Work Phone: [phone]10-29-2025 08:04-0400 Respiratory rate16 /minPeter Shens DO Work Phone: [phone]10-29-2025 08:04-0400 SaO2% (BldA) [Mass fraction]96 %Peter Ahumada DO Work Phone: [phone]-[facility]10-29-2025 08:04-0400 Systolic blood mm[Hg]Peter Shens DO Work Phone: [phone])493-[address] [place], [place] 1724105-19-2025 12:48-0400 Body djywul085.88 cmPeter Shens DO Work Phone: [facility]05-19-2025 12:48-0400 Body mass index (BMI) [Ratio]27.3 kg/l9WovnkPeter Shens DO Work Phone: [facility]05-19-2025 12:48-0400 Body oskrmn81.62 kgPeter Shens DO Work Phone: [facility]05-19-2025 12:48-0400 Diastolic blood yufqtbat07 mm[Hg]Peter Shens DO Work Phone: [facility]05-19-2025 12:48-0400 Heart rate76 /minPeter Ahumada DO Work Phone: [facility]05-19-2025 12:48-0400 Respiratory rate18 /minPeter Ahumada DO Work Phone: [phone]05-19-2025 12:48-0400 SaO2% (BldA) [Mass fraction]96 %Peter Ahumada DO Work Phone: [facility]05-19-2025 12:48-0400 Systolic blood kyjvwivi366 mm[Hg]Peter Ahumada DO Work Phone: [facility]02-19-2025 15:25-0500 Body cseqjp714.9 cmFredric Itzkowitz DO Work Phone: [facility] HospitalNsaflousjl51-37-9866 15:25-0500Body mass index (BMI) [Ratio]27.8 kg/c3Xtskwka Itzkowitz DO Work Phone: [facility] HospitalAebcbmqwew46-83-0829 15:25-0500Body zxshru83.99 kgFredric Itzkowitz DO Work Phone: [facility] HospitalGhiwhhdgtb05-81-1495 15:25-0500Diastolic blood lgtxesev92 mm[Hg]Alber Itzkowitz DO Work Phone: [facility] HospitalPfrfmyqgjt29-59-9724 15:25-0500Systolic blood hvhfxugb615 mm[Hg]Alber Itzkowitz DO Work Phone: [facility] HospitalBvusbyawtb52-76-3013 14:37-0500Body .88 cmPeter Ahumada DO Work Phone: [facility]02-18-2025 14:37-0500 Body mass index (BMI) [Ratio]27.9 kg/a2MweczPeter Shens DO Work Phone: [facility]02-18-2025 14:37-0500 Body .44 kgPeter Shens DO Work Phone: [facility]02-18-2025 14:37-0500 Diastolic blood mm[Hg]Peter Shens DO Work Phone: [facility]02-18-2025 14:37-0500 Heart rate74 /minPeter Ahumada DO Work Phone: [facility]02-18-2025 14:37-0500 SaO2% (BldA) [Mass fraction]95 %Peter Ahumada DO Work Phone: [facility]02-18-2025 14:37-0500 Systolic blood kozsgcom266 mm[Hg]Peter Shens DO Work Phone: [facility]11-19-2024 15:00-0500 Body nnytwi247.88 cmPeter Shens DO Work Phone: [facility]11-19-2024 15:00-0500 Body mass index (BMI) [Ratio]32.3 kg/a2SfqbrPeter Shens DO Work Phone: [facility]11-19-2024 15:00-0500 Body alqttj711.95 kgTerryluiza Shens DO Work Phone: [facility]11-19-2024 15:00-0500 Diastolic blood ilnwhubr34 mm[Hg]Peter Acs DO Work Phone: [facility]11-19-2024 15:00-0500 Heart rate75 /minPeter Shens DO Work Phone: [facility]11-19-2024 15:00-0500 Respiratory rate16 /minPeter Shens DO Work Phone: [facility]11-19-2024 15:00-0500 SaO2% (BldA) [Mass fraction]96 %Peter Shens DO Work Phone: [facility]11-19-2024 15:00-0500 Systolic blood ftocsikx21 mm[Hg]Peter Shens DO Work Phone: [facility]08-15-2024 14:27-0400 Body feudcs300.88 cmDO Peter Shens Work Phone: [facility]08-15-2024 14:27-0400 Body mass index (BMI) [Ratio]36.4 kg/m2DO Peter Shens Work Phone: [facility]08-15-2024 14:27-0400 Body diegap277.01 kgDO Peter Ahumada Work Phone: [facility]08-15-2024 14:27-0400 Diastolic blood mm[Hg]DO Peter Ahumada Work Phone: [facility]08-15-2024 14:27-0400 Heart rate77 /minDO Peter Shens Work Phone: [facility]08-15-2024 14:27-0400 Respiratory rate16 /minDO Peterluiza Shens Work Phone: [facility]08-15-2024 14:27-0400 SaO2% (BldA) [Mass fraction]96 %DO Peter Shens Work Phone: [facility]08-15-2024 14:27-0400 Systolic blood oiwiucpb022 mm[Hg]DO Peter Kuns Work Phone: [facility]07-09-2024 14:05-0400 Diastolic blood exyzgrgz90 mm[Hg]DO Peter Ahumada Work Phone: [facility]07-09-2024 14:05-0400 Heart rate91 /Phillip Ahumada Work Phone: [facility]07-09-2024 14:05-0400 Respiratory rate16 /HayleyO Peter Ahumada Work Phone: [facility]07-09-2024 14:05-0400 SaO2% (BldA) [Mass fraction]94 %DO Peter Ahumada Work Phone: [facility]07-09-2024 14:05-0400 Systolic blood gfwzybga504 mm[Hg]DO Peter Ahumada Work Phone: [facility]07-09-2024 13:05-0400 Body tworgsxfnzd00 [degF]DO Peter Ahumada Work Phone: [facility]07-09-2024 12:42-0400 Inhaled oxygen flow rate8 L/Phillip Ahumada Work Phone: [facility]07-09-2024 11:44-0400 Body ryotzb164.88 cmDO Peter Ahumada Work Phone: [facility]07-09-2024 11:44-0400 Body mass index (BMI) [Ratio]36.5 kg/m2DO Peter Ahumada Work Phone: [facility]07-09-2024 11:44-0400 Body dozdbf928.2 kgDO Peter Ahumada Work Phone: [facility]06-10-2024 07:25-0400 Body npcont1272.56 cmDO Peter Ahumada Work Phone: [facility]06-10-2024 07:25-0400 Body mass index (BMI) [Ratio]0.2 kg/m2DO Peter Ahumada Work Phone: [facility]06-10-2024 07:25-0400 Body kjjvtu128.46 kgDO Peter Ahumada Work Phone: [facility]06-10-2024 07:25-0400 Diastolic blood jjqwxgiy32 mm[Hg]DO Peter Ahumada Work Phone: [facility]06-10-2024 07:25-0400 Heart rate65 /Phillip Ahumada Work Phone: [facility]06-10-2024 07:25-0400 Respiratory rate16 /Phillip Ahumada Work Phone: [facility]06-10-2024 07:25-0400 SaO2% (BldA) [Mass fraction]97 %DO Peter Ahumada Work Phone: [facility]06-10-2024 07:25-0400 Systolic blood jelsehdw611 mm[Hg]DO Peter Ahumada Work Phone: [facility]06-06-2024 14:20-0400 Body iwtmwi830.88 cmDO Peter Ahumada Work Phone: [facility]06-06-2024 14:20-0400 Body mass index (BMI) [Ratio]37.3 kg/m2DO Peter Ahumada Work Phone: [facility]06-06-2024 14:20-0400 Body .73 kgDO Peter Ahumada Work Phone: [facility]06-06-2024 14:20-0400 Diastolic blood mjxwiylo37 mm[Hg]DO Peter Ahumada Work Phone: [facility]06-06-2024 14:20-0400 Heart rate86 /Phillip Ahumada Work Phone: [facility]06-06-2024 14:20-0400 Respiratory rate16 /minDO Peter Ahumada Work Phone: [address] [place], [place] 7293406-06-2024 14:20-0400 SaO2% (BldA) [Mass fraction]96 %DO Peter Ahumada Work Phone: [address] [place], [place] 7293406-06-2024 14:20-0400 Systolic blood mm[Hg]DO Peter Ahumada Work Phone: [phone]05-27-2024 07:31-0400 Body nohvbx493.88 cmDO Peter Ahumada Work Phone: [phone])[address]05-27-2024 07:31-0400 Body bjmoxeycnjw60.7 [degF]DO Peter Ahumada Work Phone: [phone]05-27-2024 07:31-0400 Body .9 kgDO Peter Ahumada Work Phone: [phone] [place], [place] 1724105-27-2024 07:31-0400 Diastolic blood rrirolmy36 mm[Hg]DO Peter Ahumada Work Phone: [phone])[address]05-27-2024 07:31-0400 Heart rate88 /minDO Peter Ahumada Work Phone: [address] [place], [place] 7293405-27-2024 07:31-0400 Respiratory rate20 /minDO Peter Shens Work Phone: [phone])287-[address] [place], [place] 1724105-27-2024 07:31-0400 SaO2% (BldA) [Mass fraction]97 %DO Peter Ahumada Work Phone: 1(856)760-[address] [place], [place] 1724105-27-2024 07:31-0400 Systolic blood lcksdvzi860 mm[Hg]DO Peter Ahumada Work Phone: 1(636)476-[address] [place], [place] 1724111-17-2023 10:30-0500 Body idrjlc185.88 cmPeter Ahumada Other [employer] Other 11-17-2023 10:30-0500Body mass index (BMI) [Ratio] 34.91 kg/e7Ypnom Kuns Other [employer] Other 11-17-2023 10:30-0500Body .76 kgTerryluiza Ahumaad Other [employer] Other 11-17-2023 10:30-0500Diastolic blood avidohxk03 mm[Hg] Peter Ahumada Other [employer] Other 11-17-2023 10:30-0500Respiratory rate16 /minBryluiza Ahumada Other [employer] Other 11-17-2023 10:30-1997UoR2% (BldA) [Mass fraction]98 % Peter Ahumada Other [employer] Other 11-17-2023 10:30-0500Systolic blood wkmgcnuc156 mm[Hg] Peter Blake Other [employer] Other 11-02-2023 15:00-0400Body hormoo809.88 cmTerryluiza Shenshira Other [employer] Other 11-02-2023 15:00-0400Body mass index (BMI) [Ratio] 35.12 kg/a8TqhqxPeter Ahumada Other [employer] Other 11-02-2023 15:00-0400Body kqdzzu698.48 kgPeter Ahumada Other [employer] Other 11-02-2023 15:00-0400Diastolic blood lfcblapt68 mm[Hg] Peter Shenshira Other [employer] Other 11-02-2023 15:00-0400Respiratory rate16 /minPeter Ahumada Other [employer] Other 11-02-2023 15:00-5052BqR9% (BldA) [Mass fraction]95 % Peter Ahumada Other [employer] Other 11-02-2023 15:00-0400Systolic blood dhcpiiur771 mm[Hg] Peter Ahumada Other [employer] Other 08-30-2023 08:30-0400Body scikzd545.88 cmPeter Acshira Other [employer] Other 08-30-2023 08:30-0400Body mass index (BMI) [Ratio] 34.39 kg/m2JgmbtPeter Ahumada Other [employer] Other 08-30-2023 08:30-0400Body .03 kgPeter Ahumada Other [employer] Other 08-30-2023 08:30-0400Diastolic blood qsakeuqp07 mm[Hg] Peter Ahumada Other [employer] Other 08-30-2023 08:30-0400Respiratory rate16 /minPeter Ahumada Other [employer] Other 08-30-2023 08:30-5913JyV6% (BldA) [Mass fraction]95 % Peter Ahumada [facility] Other 08-30-2023 08:30-0400Systolic blood uyotmzjp337 mm[Hg] Peter Ahumada Other [facility] [employer] Other [id number] 13:49-0400Diastolic blood xtdqqyff66 mm[Hg] DO Peter Ahumada Work Phone: [facility]04-12-2023 13:49-0400 Systolic blood jomrmcok847 mm[Hg]DO Peter Ahumada Work Phone: [facility]04-12-2023 13:02-0400 Body nnbyoeqwojn41.6 [degF]DO Peter Ahumada Work Phone: [facility]04-12-2023 13:02-0400 Heart rate72 /HayleyO Peter Ahumada Work Phone: [facility]04-12-2023 13:02-0400 Respiratory rate18 /HayleyO Peter Ahumada Work Phone: [facility]04-12-2023 13:02-0400 SaO2% (BldA) [Mass fraction]96 %DO Peter Ahumada Work Phone: [facility]04-12-2023 08:58-0400 Body jvzzga245.88 cmDO Peter Ahumada Work Phone: [facility]04-12-2023 08:58-0400 Body kxwocj187.93 kgDO Peter Ahumada Work Phone: [facility]11-03-2022 17:00-0400 Body smtesl936.88 cmPeter Ahumada Other [facility] Other [id number] 17:00-0400Body mass index (BMI) [Ratio] 33.63 kg/s4Fgbcq Blake Other [employer] Other 11-03-2022 17:00-0400Body okrghn740.49 kgTerryluiza Ahumada Other [employer] Other 11-03-2022 17:00-0400Diastolic blood ktlzwuco86 mm[Hg] Peter Ahumada Other [employer] Other 11-03-2022 17:00-0400Respiratory rate16 /minBryluiza Ahumada Other [employer] Other 11-03-2022 17:00-2797LxT7% (BldA) [Mass fraction]Peter Ahumada Other [employer] Other 11-03-2022 17:00-0400Systolic blood cbhdivtu246 mm[Hg] Peter Ahumada Other [employer] Other 10-03-2022 09:15-0400Body .88 cmPeter Ahumada Other [employer] Other 10-03-2022 09:15-0400Body mass index (BMI) [Ratio]33.5 kg/w5TygqqPeter Ahumada Other [employer] Other 10-03-2022 09:15-0400Body pvrbga026.04 kgPeter Ahumada Other [employer] Other 10-03-2022 09:15-0400Diastolic blood jhwztogk97 mm[Hg] Peter Ahumada Other [employer] Other 10-03-2022 09:15-0400Respiratory rate18 /minPeter Ahumada Other [employer] Other 10-03-2022 09:15-7976OeM4% (BldA) [Mass fraction]96 % Peter Ahumada Other [employer] Other 10-03-2022 09:15-0400Systolic blood ykvjrkmw096 mm[Hg] Peter Ahumada Other [employer] Other 04-13-2022 12:00-0400Body wamtkb546.88 cmPeter Ahumada Other [employer] Other 04-13-2022 12:00-0400Body mass index (BMI) [Ratio] 34.44 kg/m3PiwciPeter Ahumada Other [employer] Other 04-13-2022 12:00-0400Body .21 kgPeter Ahumada Other [employer] Other 04-13-2022 12:00-0400Diastolic blood oairgvkm17 mm[Hg] Peter Ahumada Other [employer] Other 04-13-2022 12:00-0400Respiratory rate16 /minTerryluiza Ahumada Other [employer] Other 04-13-2022 12:00-7932GrZ4% (BldA) [Mass fraction]97 % Peter Acshira Other [employer] Other 04-13-2022 12:00-0400Systolic blood biudsxth324 mm[Hg] Peter Ahumada Other [employer] Other 03-28-2022 09:15-0400Body .88 cmPeter Ahumada Other [employer] Other 03-28-2022 09:15-0400Body mass index (BMI) [Ratio]34.2 kg/m3GfylaPeter Ahumada Other [employer] Other 03-28-2022 09:15-0400Body efwgxk677.4 kgPeter Ahumada Other [employer] Other 03-28-2022 09:15-0400Diastolic blood hkftujdz51 mm[Hg] Peter Blake Other [employer] Other 03-28-2022 09:15-0400Respiratory rate18 /minPeter Ahumada Other [employer] Other 03-28-2022 09:15-0393AfV8% (BldA) [Mass fraction]98 % Peter Ahumada Other [employer] Other 03-28-2022 09:15-0400Systolic blood mm[Hg] Peter Ahumada Other [employer] Other 03-24-2022 13:28-0400Body .9 Shashank Daniel MD Work Phone: [facility]03-24-2022 13:28-0400Body temperature 97.7 [degF]Kate Daniel MD Work Phone: [facility]03-24-2022 13:28-0400Body ntbcoy167.21 kgKate Daniel MD Work Phone: [facility]03-24-2022 13:28-0400Diastolic blood wbvozxxe08 mm[Hg]Kate Daniel MD Work Phone: [facility]03-24-2022 13:28-0400Heart rate68 /min Kate Daniel MD Work Phone: [facility]03-24-2022 13:28-9454TmB1% (BldA) [Mass fraction]97 %Kate Daniel MD Work Phone: [facility]03-24-2022 13:28-0400Systolic blood rcwxbeaw790 mm[Hg]Kate Daniel MD Work Phone: [facility]09-29-2021 08:45-0400Body ahxngc665.88 cmPeter Ahumada Other [employer] Other 09-29-2021 08:45-0400Body mass index (BMI) [Ratio] 31.87 kg/f6UrjwpPeter Ahumada Other [employer] Other 09-29-2021 08:45-0400Body tsehrv870.6 kgPeter Ahumada Other [employer] Other 09-29-2021 08:45-0400Diastolic blood mm[Hg] Peter Ahumada Other [employer] Other 09-29-2021 08:45-0400Respiratory rate18 /minPeter Ahumada Other [employer] Other 09-29-2021 08:45-6375PlA0% (BldA) [Mass fraction]96 % Peter Ahumada Other [facility] [employer] Other [id number] 08:45-0400Systolic blood tyzarzve948 mm[Hg] Peter Ahumada Other [facility] [employer] Other Encounters Encounter DateEncounter [facility] ProviderFacilityStart: 05-20-2025 End: 63-44-9144slxakheaanCfkae Kuns DO Work Phone: -[facility] CastaliaStart: 05-20-2025 End: 37-53-3687Smfqjkj encounter procedurePeter Liz DO-[facility] Work Phone: Start: 05-15-2025 End: 63-44-3815Vooxsbj encounter procedurePeter Liz DO-[facility] Work Phone: Start: 05-15-2025 End: 86-44-5700gaaqkualtqCvqvm Kuns DO Work Phone: [facility]: 04-27-2025 End: 62-39-3015zaggserkhaPwgidgh Vytautas Giedraitis MDFacility:[facility] [place] Start: 03-16-2025 End: 47-70-9008igjzyqzuunFzowtoq Vytautas Giedraitis MDFacility:[facility] [place] Start: 03-02-2025 End: 77-28-9219gnbnsfuiswHavbpsy Vytautas Giedraitis MDFacility:[facility] [place] Start: 01-27-2025 End: 53-76-2760Zuzbvmn encounter procedurePeter Liz DO-[facility] Work Phone: Start: 01-27-2025 End: 21-36-1423uyqdzbwpinLtmdj Kuns DO Work Phone: [facility] Work Phone: Start: 01-26-2025 End: 67-59-9894fxkxlxrwsoAclujqa Vytautas Giedraitis MDFacility:[facility] [place] Start: 12-08-2024 End: 07-64-4390Zrcuoba encounter procedurePeter Liz DO-[facility] Work Phone: Start: 12-08-2024 End: 66-57-3814bsuaohdngnSrgblak Vytautas Giedraitis MDFacility:[facility] [place] Start: 12-05-2024 End: 17-37-2444Hyeqkrk encounter procedurePeter Liz DO-[facility] [place] Work Phone: Start: 12-05-2024 End: 62-23-7085ywyfvhdrnaDmtal KunsFacility:[facility] Start: 10-13-2024 End: 77-24-8538Bpzgic follow up visit related to original pxFredric H Itzkowitz DO Work Phone: [facility] ST GENSComment on above:Sebaceous cyst (Primary Dx)Start: 10-13-2024 End: 10-00-9213rxvrgzqxcpNVQLWKM H ITZKOWITZNot AvailableStart: 09-29-2024 End: 44-90-5649oiksvvtxlrVausj Kuns DO Work Phone: [facility] Work Phone: Start: 09-29-2024 End: 62-06-2158Deniolzc ReferredPeter Ahumada DO Work Phone: [facility] [place] Work Phone: Start: 09-22-2024 End: 09-05-9853hnzycetllvAddsjop Vytautas Giedraitis MDFacility:[facility] [place] Start: 09-10-2024 End: 40-80-6884Yyqije outpatient visit 15 minutesFredric H Itzkowitz DO Work Phone: [facility] ST GENSComment on above:Sebaceous cyst (Primary Dx)Start: 09-10-2024 End: 95-80-0054zybtfvlygqBJOGDYW H ALBAZKOWIAna AvailableStart: 09-09-2024 End: 66-42-5930dxlumzglmpOrkpb Kuns DO Work Phone: [facility] Work Phone: Start: 09-09-2024 End: 93-13-9581Xwepwwx encounter procedureBryluiza Ahumada DO Work Phone: [facility] Work Phone: Start: 09-01-2024 End: 50-17-7052gyzkylvnruMooeacq Vytautas Giedraitis MDFacility:[facility] Start: 07-17-2024 End: 27-74-3463aoelyeubvrNkaed D [facility]Fac[facility]art: 07-17-2024 End: 24-77-0778Garfoeyaqx RecurringPeter Ahumada DO Work Phone: [facility]-Physical [facility] [place] Work Phone: start: 06-23-2024 End: 00-64-5375ltjhcrekzhAvwpndn Vytautas Giedraitis MDFacility:[facility] [place] Start: 06-10-2024 End: 38-13-3639jvuwkfhwnyHbbbj Acs DO Work Phone: [facility] Work Phone: Start: 06-10-2024 End: 36-83-0496Lvuosmn encounter procedurePeter Shens DO Work Phone: [facility] Work Phone: Start: 06-04-2024 End: 79-46-5783Edgerri encounter procedurePeter Shens DO Work Phone: [facility] [place] Work Phone: Start: 06-04-2024 End: 03-98-5850fzgmtvkhxfQcpgr Acs DO Work Phone: [facility] Work Phone: Start: 05-22-2024 End: 79-10-9765Lqintbo encounter procedureChristopher Jonathan DO Work Phone: [facility] NEUROLOGYComment on above:Lumbosacral radiculopathy (Primary Dx)Start: 05-22-2024 End: 19-51-4758cmbabflmwePDDHZFBTHYH HASSETTNot AvailableStart: 05-22-2024 End: 26-84-0082Ivwkpf flowsheetChristopher Jonathan DO Work Phone: [facility] NEUROLOGYStart: 05-22-2024 End: 26-90-0909Jiouwn flowsheetChristopher Jonathan DO Work Phone: [facility] NEUROLOGYStart: 05-19-2024 End: 27-24-7680tlnzwwaepqLW Peter Ahumada Work Phone: [facility] Work Phone: Start: 05-19-2024 End: 08-89-2708Pywohmeoho RecurringDO Peter Ahumada Work Phone: [facility]-Physical Therapy [place] Work Phone: start: 03-12-2024 End: 38-00-5176ledpndrpaeMV Peter Ahumada Work Phone: [facility] Work Phone: Start: 03-12-2024 End: 25-92-9851Rawzlfp encounter procedureDO Peter Ahumada Work Phone: [facility]-Ultrasound [facility] [place] Work Phone: Start: 03-06-2024 End: 63-53-7004qwzztkgzuoHA Bryan Kuns Work Phone: [facility] Work Phone: Start: 03-06-2024 End: 38-72-6152Jscwgja encounter procedureDO Peter Ahumada Work Phone: [facility] [place] Work Phone: Start: 03-05-2024 End: 90-86-8599jqksbygsxsIN Peter Shenshira Work Phone: [facility] Work Phone: Start: 03-05-2024 End: 86-89-6259Hhidjan encounter procedureDO Peter Shenshira Work Phone: [facility] [place] Work Phone: Start: 02-28-2024 End: [id number] H ITZKOWITZNot AvailableStart: 02-13-2024 End: [id number] Peter Ahumada Work Phone: [facility] Work Phone: Start: 02-13-2024 End: [id number] encounter procedureDO Peter Shenshira Work Phone: [facility] Work Phone: Start: 02-13-2024 End: 22-85-0907jkbrrvslnkNE Peterluiza Ahumada Work Phone: [facility] Work Phone: Start: 02-13-2024 End: 96-98-5192Fmmuctb encounter procedureDO Peter Blake Work Phone: [facility] [place] [facility] Start: 02-07-2024 End: 27-46-6691foofwxyakuYNGHKKX H ITZKOWITZNot AvailableStart: 01-29-2024 End: 40-53-2042Tcezzkitn to same day surgery centerDO Peter Ahumada Work Phone: [facility]: 01-29-2024 End: 94-89-5881qsjprcbxexYF Bryan Kuns Work Phone: [facility] Work Phone: Start: 01-15-2024 End: 66-34-2123koetdexpvwDS Bryan Kuns Work Phone: [facility] Work Phone: Start: 01-15-2024 End: 88-15-3310Dpqweygp ReferredDO Peter Ahumada Work Phone: [facility] Gza-[employer]tm-[employer] Work Phone: Start: 01-15-2024 End: 74-88-1963Yzdmrio encounter procedureDO Peter Ahumada Work Phone: [facility] Sky-Zfx-Dxpgqrkt Testing Work Phone: Start: 01-14-2024 End: 44-35-0845gpuptdafdyXI Bryan Kuns Work Phone: [facility] Work Phone: Start: 01-14-2024 End: 16-50-2074Ncmiyet encounter procedureDO Peter Ahumada Work Phone: [facility] Work Phone: Start: 01-14-2024 End: 05-63-8861aaebegqeeoPW Bryan Kuns Work Phone: [facility] Work Phone: Start: 01-14-2024 End: 06-15-4679Kkrqjew encounter procedureDO Peter Ahumada Work Phone: [facility] [place] [facility] Start: 01-03-2024 End: 70-48-2019jbgynnodpbDBGMYSC Judd Dupont AvailableStart: 12-31-2023 End: 68-31-7117jnzkwmzdmhUU Peter Ahumada Work Phone: [facility] Work Phone: Start: 12-31-2023 End: 59-13-3788Cipquzm encounter procedureDO Peter Ahumada Work Phone: [facility] [place] [facility] Work Phone: Start: 12-31-2023 End: 84-56-1054vqbjflagojSJ Peter Ahumada Work Phone: [facility] Work Phone: Start: 12-31-2023 End: 69-96-3879Nhygcyk encounter procedureDO Peter Ahumada Work Phone: [facility]-Ultrasound [facility] [place] Work Phone: Start: 12-31-2023 End: 38-32-5403vueksgtvdfUM Peter Ahumada Work Phone: [facility] Work Phone: Start: 12-31-2023 End: 91-79-6936Fqwdznn encounter procedureDO Peter Ahumada Work Phone: [facility] Work Phone: Start: 12-28-2023 End: 00-20-1890usteyhuzgoJV Bryan Kuns Work Phone: [facility] Work Phone: Start: 12-28-2023 End: 40-47-3067Sizgedk encounter procedureDO Peter Ahumada Work Phone: [facility] [place] Work Phone: Start: 12-27-2023 End: 11-63-3292vatkcmkhnnOZ Bryan Kuns Work Phone: [facility] Work Phone: Start: 12-27-2023 End: 19-00-3972Kjcgddx encounter procedureDO Peter Blake Work Phone: [facility] Work Phone: Start: 03-57-1737Unp-patient / Non-visitDO Peter Ahumada Work Phone: [facility] Work Phone: Start: 12-17-2023 End: 14-87-5619Juccssngq department patient visitDO Peter Ahumada Work Phone: [facility]-Emergency Room Work Phone: Start: 12-12-2023 End: 86-49-3118gtbecykumxLLEEAWC H ITZKOWITZNot AvailableStart: 12-03-2023 End: 57-29-3976iipfkpphhjQF Peter Acshira Work Phone: [facility] Work Phone: Start: 12-03-2023 End: 60-29-2886Rdzjxmk encounter procedureDO Peter Ahumada Work Phone: [facility] Work Phone: Start: 08-27-2023 End: 11-73-1808wfgjiapneiZdtjm Kuns Other [place] Other Start: 64-82-6341Hydeeglib encounterPeter AhumadaFPG Family Medicine [place]Start: 08-22-2023 End: 76-17-2667yapndrydddWM Peter Acshira Work Phone: [facility] Work Phone: Start: 08-22-2023 End: 32-97-3045Ctaynjc encounter procedureDO Peter Acshira Work Phone: [facility] [place] Work Phone: Start: 08-20-2023 End: 64-63-3095hwnklmlqunIanqt Kunshira Other [employer] Other Start: 11-52-1390Ezibsceyk encounterBryluiza Golden [facility] CastaliaStart: 96-55-3400Zsdpmenum encounterBryluiza Golden [facility] CastaliaStart: 08-13-2023 End: 51-67-4486wiysjxvojlNS Peter Ahumada Work Phone: [facility] [employer] Other Start: 08-13-2023 End: 00-23-1538Xscfwtt encounter procedureDO Peter Ahumada Work Phone: [facility] Work Phone: Start: 08-06-2023 End: 98-88-8902gggoassqixDhziy Kuns Other [facility] [employer] Other Start: 56-83-5703Oopieabsl encounterPeter Golden [facility] CastaliaStart: 06-11-2023 End: 29-48-1408ehexpagadxOdaol Kuns Other [facility] [employer] Other Start: 77-18-5972Wmjqzopde encounterBryluiza Golden [facility] CastaliaStart: 95-54-1001Sdpvkv outpatient visit 25 minutesBryluiza Golden [facility] CastaliaStart: 06-08-2023 End: 35-36-7797cfbymnrwtsMA Bryan Kuns Work Phone: [facility] Work Phone: Start: 06-08-2023 End: 09-76-5752Ykvuwnl encounter procedureDO Peter Ahumada Work Phone: [facility] Work Phone: Start: 06-08-2023 End: 27-14-6039Dczsguf encounter procedureDO Peter Ahumada Work Phone: [facility] [place] Work Phone: Start: 05-25-2023 End: 10-33-0071Wymxyks encounter procedureDO Peter Ahumada Work Phone: [facility] Work Phone: Start: 05-24-2023 End: 88-13-2157kanznoouhgJxixx Kuns Other [employer] Other Start: 59-69-3588Ytobmv outpatient visit 25 minutes Peter Golden [facility] [place]Start: 05-24-2023 End: 51-83-2497Lzdowud encounter procedureDO Peter Ahumada Work Phone: [facility] [place] Work Phone: Start: 03-21-2023 End: 80-04-9550ugesmymqnlHfeuq Kuns Other [employer] Other Start: 78-28-3749Zflylp outpatient visit 15 minutes Peter Golden [facility] [place]Start: 03-19-2023 End: 32-92-8699fuuxcrfdlyAH Peter Ahumada Work Phone: [facility] Work Phone: Start: 03-19-2023 End: 98-37-6176Sufzaod encounter procedureDO Peter Ahumada Work Phone: [facility] [place] Work Phone: Start: 01-15-2023 End: 26-52-6638xgncmquavjXD Peter Ahumada Work Phone: [facility] Work Phone: start: 01-15-2023 End: 91-91-3378Wmvvzsy encounter procedureDO Peter Ahumada Work Phone: [facility]-Ultrasound Cntr for Breast CarStart: 01-12-2023 End: 17-71-5330jnvurqcpjgKazov Kuns Other [employer] Other Start: 06-37-7490Swwwjszmt encounterPeter Golden [facility] CastaliaStart: 11-23-2022 End: 70-38-0112Seurgpp encounter procedureDO Peter Ahumada Work Phone: [facility] [place] Work Phone: Start: 11-01-2022 End: 41-32-9122Ivurgiyla department patient visitDO Peter Ahumada Work Phone: [facility]-Emergency Room Work Phone: Start: 10-31-2022 End: 67-69-1120qidzeinokiVY Peter Ahumada Work Phone: [facility] Work Phone: Start: 10-31-2022 End: 29-36-2955Arnlaui encounter procedureDO Peter Ahumada Work Phone: [facility] [place] Work Phone: Start: 05-25-2022 End: 13-62-9163Sahvhszm ReferredDO Peter Ahumada Work Phone: [facility]: 05-25-2022 End: 20-92-1795pykekyxumxAA Peter Ahumada Work Phone: [place] [employer] Other Start: 34-92-7741Gkknso outpatient visit 15 minutes Peter Golden [facility] [place]Start: 04-24-2022 End: 23-32-8183zsgjadjgwmAbzvf Kuns Other [employer] Other Start: 96-04-0022Kguqof outpatient visit 25 minutes Peter AcshiraVANESA [facility] [place]Start: 04-19-2022 End: 99-14-9835egpwhnhxdkFS Peter Ahumada Work Phone: [facility] Work Phone: Start: 04-19-2022 End: 39-32-5227Ultywdy encounter procedureDO Peter Ahumada Work Phone: [facility]-Lab [place]Start: 11-15-2021 End: 68-19-3109bwiyjwptnnGihgv Kuns Other [employer] Other Start: 85-35-2522Klpwfavak encounterBryluiza Golden [facility] [place]aliaStart: 11-02-2021 End: 72-48-0265vpnrzvaseiZnjkx Kuns Other [employer] Other Start: 88-31-8934Womgee outpatient visit 15 minutes Peter Golden [facility] [place]Start: 10-17-2021 End: 55-15-5186mmlphoaxegGsbov Kuns Other [employer] Other Start: 76-58-7840Hchuhr outpatient visit 25 minutes Peter ShenshiraVANESA [facility] [place]Start: 10-13-2021 End: 66-32-4237Zwetqhp encounter Malcolm Daniel MD Work Phone: General SurgeryComment on above:Liver pain (Primary Dx)Start: 80-55-6220Dtfdac outpatient visit 25 minutesPeter Golden [facility] CastaliaStart: 02-22-2021 End: 77-91-6753nkvbauhjapMJ PETER AHUMADAFacility:M5Rowdv: 11-30-2020 End: 74-42-1899Liyliyugoh hospital visit by physicianXr Olivia 1 Work Phone: RadiologyComment on above:Closed nondisplaced fracture of proximal phalanx of left little finger, initial encounter [C17.037B]Start: 11-18-2020 End: 06-11-5652Tveywgefcv hospital visit by physicianXr Olivia 1 Work Phone: RadiologyComment on above:Closed nondisplaced fracture of proximal phalanx of left little finger, initial encounter [Z29.982E] Procedures DateProcedureProcedure DetailPerforming ClinicianStart: 07-43-6703Tmqhvudxl mammography of bilateral breastsPeter Ahumada DO Work Phone: Start: 54-91-7344ZC pre/post mri xrayPeter Ahumada DO Work Phone: Start: 42-02-2424WWK of left anklePeter Ahumada DO Work Phone: Start: 05-22-2024 End: 34-31-6071Qkwvxk emg ea extremty w/paraspinl area completeChristopher Jonathan DO Work Phone: Start: 86-56-5488DG scan of gallbladderDO Peter Ahumada Work Phone: Start: 25-64-6700Qssks X-ray of right elbowDO Peter Ahumada Work Phone: Start: 69-42-7981Vttlar of umbilical herniaDO Peter Ahumada Work Phone: Start: 62-78-7468Dpptt X-ray of right elbowDO Peter Ahumada Work Phone: Start: 19-90-4131Zhdosysvvrmazqs of abdomenDO Peter Ahumada Work Phone: Start: 22-25-9522Jlyht X-ray of right elbowDO Peter Ahumada Work Phone: Start: 66-23-7637Z-ray of right kneeDO Peter Ahumada Work Phone: Start: 64-48-0762Sxgdf X-ray of right clavicleDO Peter Ahumada Work Phone: Start: 61-42-1400Ivbqp X-ray of right forearmDO Peter Ahumada Work Phone: Start: 02-56-8269Hhlgc X-ray of right shoulderDO Peter Ahumada Work Phone: Start: 43-30-9743W-ray of left kneeDO Peter Ahumada Work Phone: Start: 09-70-6843Rxskvqtex mammography of bilateral breastCathyO Peter Ahumada Work Phone: Start: 92-63-7922Jmhhokrfmkirbnq of left breastDO Peter Ahumada Work Phone: Start: 87-30-2648Ixsbf X-ray of left hipDO Peter Ahumada Work Phone: Start: 70-22-3032S-ray of lumbar spine, two or three viewsDO Peter Ahumada Work Phone: Start: 70-76-7584Xzuyqlcporvufsp of left breastDO Peter Ahumada Work Phone: Start: 29-00-0014Ghkjfpneg mammography of bilateral breastsDO Peter Ahumada Work Phone: Start: 44-44-5887Yhhndp echographyDO Peter Ahumada Work Phone: Start: 12-06-9666Jctrmyrefagx echographyDO Peter Ahumada Work Phone: Start: 62-50-4658Lmgyxevg tomography of abdomen and pelvis with contrastDO Peter Ahumada Work Phone: Start: 97-21-9157Ilyof hand minimum 3 viewsVidanielas Sabino Yusuf DO Work Phone: Start: 41-85-2730Nngyj hand minimum 3 viewsFridaallie Sabino Paramjit DO Work Phone: Plan of Treatment DateCare ActivityDetailAuthorStart: 41-77-0611Pxcxv microalbumin profile DTaP,Tdap,Td Vaccine (2 - Td or Tdap)[facility] Hospitaltart: 05-22-2024 End: 72-37-4629Kovzrts encounter rndqsmomg58/31/2024 2:30 PM EDT Procedure Visit [facility] [address] [facility] [address] [place] [id number] Rahul Castillo, [address] [place] [address] ArrivedNOCENTRAL ALABAMA [facility]ERY NEUROLOGYComment on above:ArrivedStart: 48-66-6623Wzssj-19 Vaccine ( season)Covid-19 Vaccine ( season)[facility] Hospitaltart: 11-30-7254Jikocvvpo vaccinationInfluenza Vaccine (#1)[facility] Hospitaltart: 07-03-9874IgycpilrsSycamore Medical Centertart: 61-70-1072Vzxdd X-ray of right elbowXR elbow RT 2VSycamore Medical Centertart: 79-50-2480TR Elbow - right 2 ViewsSouthview Medical Center Start: 19-65-8712GwyscpwviSycamore Medical Centertart: 38-68-1621EscspjlnbSycamore Medical Centertart: 80-85-5463Intnv X-ray of right elbowXR elbow RT 2V [facility]art: 28-15-8456EG Elbow - right 2 Views [facility]art: 55-92-6506Wfvyysx referralParma Community General Hospital Work Phone: Start: 83-47-6554Ygutbwazz for malignant neoplasm of breastMammogram ScreeningTriHealth McCullough-Hyde Memorial Hospitaltart: 41-34-4224Rjsrsmjhj vaccination INFLUENZA (#1)[facility] Hospitaltart: 19-43-2620HWW TESTINGHPV TESTINGTriHealth McCullough-Hyde Memorial Hospitaltart: 69-40-8177QJC TESTINGPAP TESTINGTriHealth McCullough-Hyde Memorial Hospitaltart: 2003 Screening for malignant neoplasm of cervixCervical Cancer ScreeningTriHealth McCullough-Hyde Memorial Hospitaltart: 85-06-0437Yzgcllwql B Vaccine (1 of 3 - 19+ 3-dose series)Hepatitis B Vaccine (1 of 3 - 19+ 3-dose series)[facility] Hospitaltart: 72-10-3130Cknqy microalbumin profileDTAP,TDAP,TD (1 - Tdap)[facility] Hospitaltart: 2000 Anxiety ScreeningAnxiety ScreeningTriHealth McCullough-Hyde Memorial Hospitaltart: 92-11-7447Qiuezhclen ScreeningDepression ScreeningTriHealth McCullough-Hyde Memorial Hospitaltart: 19-23-1306ZNRYBVNBQ C SCREENINGHEPATITIS C SCREENINGTriHealth McCullough-Hyde Memorial Hospitaltart: 51-64-0696Jdltmmhzz C screeningHepatitis C ScreeningTriHealth McCullough-Hyde Memorial Hospitaltart: 59-48-5948RPF SCREENINGHIV SCREENINGTriHealth McCullough-Hyde Memorial Hospitaltart: 32-28-1532DTO screeningHIV ScreeningTriHealth McCullough-Hyde Memorial Hospitaltart: 99-99-0747Hsnng depression screening assessmentDEPRESSION SCREENING [facility] Hospitaltart: 26-18-9030PCRAU-19 VACCINE (1)COVID-19 VACCINE (1) [facility] HospitalComprehensive metabolic 1999 panel - Serum or PlasmaSouthview Medical CenterComprehensive metabolic 1999 panel - Serum or Plasma [facility] CenterComprehensive metabolic 1999 panel - Serum or [facility] HospitalGlucose measurement estimated from glycated hemoglobinSouthview Medical CenterPatient EducationAkron Children'S Hospital Ctr Work Phone: Patient referralAkron Children'S Hospital Ctr Work Phone: RF Gastrointestinal tract upper Single view W air contrast POSouthview Medical CenterUS GallbladderSouthview Medical CenterXR Elbow - right GE 3 ViewsSycamore Shoals Hospital, [place] Immunizations Immunization DateImmunizationNotesCare WawqlpidCerofokj10-15-4804aqekwyl toxoid, reduced diphtheria toxoid, and acellular pertussis vaccine, adsorbedDO Peter Ahumada Work Phone: [facility]11-16-2022influenza, injectable, quadrivalent, preservative freePeter Ahumada Other [facility]09-18-2020influenza, seasonal, injectableBryan Acs Other noSoysuper Other [id number], seasonal, injectablePatient ObjectionPeter Shens Other noSoysuper Other [id number] toxoid, reduced diphtheria toxoid, and acellular pertussis vaccine, adsorbedPeter Ahumada Other [facility] CenterNEGATED: Highlighted row has not occurred!80-25-5407znkphhgsu, seasonal, injectablePatient Objection Peter Ahumada Other noSoysuper Other NEGATED: Highlighted row has not occurred!04-09-2020 influenza, seasonal, injectableBryan Acs Other [employer] Other NEGATED: Highlighted row has not occurred!03-10-2019 influenza, seasonal, injectablePatient ObjectionPeter Shens Other [employer] Other Payers DatePayer CategoryPayerPolicy [id number] [facility] [place] [place] [id number] 2018-Present [phone] [address] [place] [address] [id number] 2019MedicaidCARESOURCE MEDICAID ZZZCAR[facility]OH[facility]CRE[facility] [place] [id number] 2018-2022 [address] [place] [address] [id number] [facility] Member Subscriber Plan / Payer (Effective 2018-Present) Name: Darling Khanna Relation to Subscriber: Self Name: Alex Khannalilly Jackson Payer ID: Not on file Group ID: [id number] Type: Not on file Address: [address] [id number] [id number] 2..1.047005.3.57[id number] 2..1.606620.3.57[id number] 2..1.000879.3.57[id number] 2..1.191051.3.57[id number] 2..1.781039.3.57[id number] 2..1.272340.3.57[id number] 2..1.223023.3.57[id number] 2..1.321199.3.57[id number] 2.0.1.639819.3.57[id number] 2..1.298101.3.57[id number] 2..1.560212.3.57[id number] 2..1.235262.3.57[id number] 2..1.675453.3.57[id number] 2..1.781882.3.57[id number] 2..1.811019.3.57[id number] 2..1.698350.3.57[id number] 2a61u8qm-w3wk-1360-13nd-[id number] 2..1.8[id number] 2..1.643823.3.579.2.531 [id number] 2..1.5[id number] 2..1.1[id number] 2.0.1.919085.3.579.2.531 [id number] 2.840.1.5[id number] 2.0.1.658554.3.579.2.531 Social History DateTypeDetailFacilityStart: 03-03-2021 End: 01-35-6816Eiqafvx smoking status NHISEx-smokerParma Community General Hospital Work Phone: End: 47-04-6808Kytkwch of tobacco useCurrent smokerParma Community General Hospital Work Phone: Start: 03-03-2021 End: 37-26-7980Eyzelxg use and exposureSmokeless tobacco non-userParma Community General Hospital Work Phone: Start: 58-51-8979Wiwefvm intakeCurrent drinker of alcohol (finding)[facility] Hospitaltart: 50-34-3649Uemuciu SDOH Alcohol Comment occTriHealth McCullough-Hyde Memorial Hospitaltart: 76-70-4303Xidfvys CommentSmoked 1 pack a week, quit in 2005, can't remember start dateTriHealth McCullough-Hyde Memorial Hospitaltart: 53-78-1336Ibt Assigned At [facility]Not on [facility] Hospitaltart: 06-30-2020 End: 15-12-7442Ttk Assigned At [facility] [employer] Other Start: 11-25-2015 End: 14-31-6730Dtopbhb smoking status NHISNever smoked tobacco (finding) [facility] Centertart: 12-65-3066Jne Assigned At [facility]: 39-97-9430Tjhnvgggo beverage intakeNot AskedTriHealth McCullough-Hyde Memorial Hospitaltart: 06-30-2020 End: 94-74-6710Cipsigo of Social functionParma Community General HospitalNational Score (1-100), lower number is lower riskNot on [facility] Hospitaltart: 10-19-2020 End: 15-53-8314Iwzjyktn to SARS-CoV-2 (event)Not sureParma Community General Hospital End: 46-25-6243Hbruzwv of tobacco useCigarette SmokerNOMS HealthcareStart: 02-04-2024 End: 52-02-8570Droajywbq beverage intakeEx-drinker (finding)[facility] Start: 49-14-2412Uiyjgsl CommentQuit smoking 10 years agoNOMS HealthcareStart: 78-91-6881Ryrlbsg Commentcaffeine 1-2 cups/dayNOMS HealthcareStart: 01-18-2023 Gender identityIdentifies as female gender (finding)[facility] HealthcareStart: 41-91-9625Mkasiv orientationHeterosexual (finding)[facility] HealthcareStart: 06-05-2024 End: 68-85-5902GzbUjafcd (finding)[facility] Medical Equipment Procedure CodeEquipment CodeEquipment Original TextEquipment IdentifierDates Repair, hernia, umbilicalMESH FLAT SHEET 7.9H13OTEBRJuvmn: 65-50-1803Neesvn, hernia, umbilicalMESH FLAT SHEET 7.3W70DCWALBktcl: 33-07-3976Obtymi, hernia, umbilicalMESH FLAT SHEET 7.9B12OFQPWDbscw: 68-11-8812Bamzrm, hernia, umbilical MESH FLAT SHEET 7.6T22MJKGRQwtqj: 82-87-1415Ilsllj, hernia, umbilicalMESH FLAT SHEET 7.7C39WCEYSUvzgx: 65-65-7371Oxxxgt, hernia, umbilicalMESH FLAT SHEET 7.7F65DUHDERspxf: 33-71-8073Fpnsfq, hernia, umbilicalMESH FLAT SHEET 7.8S16UGXUF Start: 46-46-8089Afgplz, hernia, umbilicalMESH FLAT SHEET 7.2V98VFAFEVnxlm: 08-35-6429Vbqrxe, hernia, umbilicalMESH FLAT SHEET 7.8C17NOHJQMygol: 04-24-2017 Repair, hernia, umbilicalMESH FLAT SHEET 7.7G49GGFPQQlddi: 96-94-6304Elkrqn, hernia, umbilicalMESH FLAT SHEET 7.8H84OEKGFApwfl: 52-00-5553Lunxtx, hernia, umbilicalMESH FLAT SHEET 7.9Z45GFJCKKqpra: 08-41-2158Fwazot, hernia, umbilical MESH FLAT SHEET 7.6S34LLSFNJziny: 74-09-5050Bnpooq, hernia, umbilicalMESH FLAT SHEET 7.0K91NRSXMUpoft: 15-62-2966Qlygrm, hernia, umbilicalMESH FLAT SHEET 7.9U36VZMFFDtell: 55-38-7646Wcdpgl, hernia, umbilicalMESH FLAT SHEET 7.1I09LWIEN Start: 72-72-7464Ipicij, hernia, umbilicalMESH FLAT SHEET 7.8J40KUMVZDtnfs: 26-64-4836Mnssza, hernia, umbilicalMESH FLAT SHEET 7.8Q42RKISHKbkup: 04-24-2017 Repair, hernia, umbilicalMESH FLAT SHEET 7.8B02WHTFBGllah: 54-17-8159Zvnxlk, hernia, umbilicalMESH FLAT SHEET 7.8Y71VCYUKOryto: 67-90-1035Sxeiqx, hernia, umbilicalMESH FLAT SHEET 7.2I48QPOTDTeozg: 63-69-8817Msoeak, hernia, umbilical MESH FLAT SHEET 7.0Q78RPZYJLthfx: 58-05-2393Qcafsy, hernia, umbilicalMESH FLAT SHEET 7.9Y66BMWOTTpwku: 78-35-3061Vbtzvx, hernia, umbilicalMESH FLAT SHEET 7.3J65PSHZAItqno: 04-05-4554Grdxdh, hernia, umbilicalMESH FLAT SHEET 7.5K14OYLEK Start: 28-46-0771Wbufuo, hernia, umbilicalMESH FLAT SHEET 7.7C61IAAPEEeksg: 14-34-3758Qeocem, hernia, umbilicalMESH FLAT SHEET 7.6Q33IJTXRLeacu: 04-24-2017 Repair, hernia, umbilicalMESH FLAT SHEET 7.3V83RMVCEYmwhn: 34-46-4043Kppbxv, hernia, umbilicalMESH FLAT SHEET 7.6C80WGHSCNmaxr: 46-30-5262Kvfrkd, hernia, umbilicalMESH FLAT SHEET 7.7C54QAFKBFvhio: 96-52-1012Dqwxce, hernia, umbilical MESH FLAT SHEET 7.3Z67HQMAKFbgvx: 87-18-6543Nbetkn, hernia, umbilicalMESH FLAT SHEET 7.0G24HIPIXQizpm: 31-55-7864Euionz, hernia, umbilicalMESH FLAT SHEET 7.1D62JIQLUKsbdc: 04-24-2017 Goals DatePatient GoalDesired Activity/State Clinical Notes 11-04-2020 to 12-08-2024 Note Date & CasgHdchGxfmkkdu99-66-7813 Evaluation note* Author Mercedes Ricketts [facility] CenterAuthoredMay 2024 12:48pmSooner if needed, the ER if concerns,The above note written by Mercedes Ricketts LPN acting as human recorder, note dictated by Dr. Peter Ahumada [facility] Work Phone: 1(795) 683-405403-24-2025 History of Present illness Narrative* Alber Lara [...] cyst. I'll seeher PRN documented in this encounterCedar County Memorial [id number] History of Present illness Narrative* Alber Lara [...] 90 mcg/act inhaler Every 4 hours HYDROcodone-acetaminophen ([place]) 5-325 MG tablet TAKE 1 TABLET BY [...] like to schedule it. documented in this [facility]02-18-2025 Evaluation note* Author Hyacinth Hutton [facility] 2024 3:43pmThe above note written by SIOMARA Abdi acting as human recorder, note dictated by Dr. Peter Ahumada. [facility] Work Phone: 1(288) 875-274810-31-2024 History of Present illness Narrative* CESAR Rich - 05/22/2024 2:30 PM EDT Images from the original note were not included. Reason for Appointment: [facility] Patient: Darling Khanna : 1980 [facility] Computer: Find [employer] (FIG) Referring Physician: Dr. Robert Martinez EMG: YAMILEX knee bolter: Cayetano Moreno RT(R) Office Location: [place] Reason for EMG: c/o low back pain into left hip, pain in right knee, pain in bilateral heels. No hxof DM. Not on blood thinners. Comments: Procedure was explained to the patient who expressed understanding. Patient appeared to have tolerated the test well despite some discomfort due to the nature of the test. documented in this [facility]08-15-2024 Evaluation note* Author Hyacinth Hutton [facility] 2023 2:47pmThe above note written by Polly STRINGER acting as human recorder, note dictated by Dr.Bryan Ahumada. [facility] Work Phone: 1(601) 527-522101-22-2024 Evaluation note* Encounter Date Diagnosis Assessment Notes Treatment Notes Treatment Clinical Notes Jul, Abnormal mammogram of left breas t (ICD-10 - R92.8) [facility] Other 01-15-2024 Evaluation note* Encounter Date Diagnosis Assessment Notes Treatment Notes Treatment Clinical Notes Jul, Abnormal mammogram (ICD-10 - R92 .8) [facility] Other 11-17-2023 Evaluation note* Encounter Date Diagnosis [...] diet modification. May,cute bronchitis (ICD-10 - J20.9) [facility] Other 11-02-2023 Evaluation note* Encounter Date Diagnosis [...] exercise regimen; we will continue to monitor. [facility] Other 08-30-2023 Evaluation note* Encounter Date Diagnosis [...] been ordered to use for allergic reaction. [facility] Other 06-23-2023 Evaluation note* Encounter Date Diagnosis Assessment Notes Treatment Notes Treatment Clinical Notes Dec, Mass of upper outer quadrant of left breast (ICD-10 - N63.21) [facility] Other 11-03-2022 Evaluation note* Encounter Date Diagnosis [...] sent to the lab to determine pathology. [facility] Other 10-03-2022 Evaluation note* Encounter Date Diagnosis [...] by excisional biopsy. Apr,Hyperlipidemia (ICD-10 - E78.5) [facility] Other 04-13-2022 Evaluation note* Encounter Date Diagnosis [...] removed via shave and sent for pathology. [facility] Other 03-28-2022 Evaluation note* Encounter Date Diagnosis [...] eye. These will be removed with hyfrecator. [facility] Other 03-24-2022 NoteHNO ID: [id number] Author: Kate Daniel MD Service: ? Author Type: Physician Type: Progress Notes Filed: 10/17/2021 1:50 PM Note Text: Assessment ESTABLISHED PATIENT Darling Khanna is a 40 year old female with a right posterior liver subcapsular fluid collection ? 03/03/2021: Patient presented to [facility] on 02/08/2021 for 2 days for acute ride sided abdominal/flank pain, right shoulder discomfort and nausea. She was diagnosed with Klebsiella pneumoniae UTI and was discharged with oral keflex and zofran. Patient represented to ER on 02/09/2021 for the continued complaints of pain. ? Referral From:?PCP- Peter Ahumada, DO Reason:?right abdominal pain pain; liver?fluid collection? ? Received Records From:? 02/08/2021 ER Report [facility] 02/09/2021 ER Report [facility] 02/15/2021 PCP Office note ? [...] improving. US of ovaries yesterday at [facility]. Scheduled for upper GI at end of month. Gained?50 pounds since July?(was in [place] for 3 months, drank a lot); diagnosed [...] well. She did spend 3 months in [place] and did not have any issues, hospitalizations [...] which included preparing to see the patient, ikhg-ao-hyjf patient care and completing clinical documentation. Kate Daniel [facility]03-24-2022 Nurse Note* Jayne Aguila Ma - 10/13/2021 1:32 PM EDT What is the reason for your visit today? Follow up Who is your referring physician? Are you having poor oral intake? NO Have you had unintentional weight loss of 15 lbs/7 Kg in the last 3-6 months? NO Bowels: regular Wound: Temperature: No Drains: No documented [facility] History of Present illness Narrative* Kate Daniel MD - 10/13/2021 1:30 PM EDT Assessment ESTABLISHED PATIENT Darling Khanna is a 40 year old female with a right posterior liver subcapsular fluid collection 03/03/2021: Patient presented to [facility] on 02/08/2021 for 2 days for [...] collection Received Records From: 02/08/2021 ER Report [facility] 02/09/2021 ER Report [facility] 02/15/2021 PCP Office note Visited [...] improving. US of ovaries yesterday at [facility]. Scheduled for upper GI at end of month. Gained 50 pounds since July (was in [place] for 3 months, drank a lot); diagnosed [...] well. She did spend 3 months in [place] and did not have any issues, hospitalizations [...] which included preparing to see the patient, eqyi-cf-bldq patient care and completing clinical documentation. Kate Daniel MD documented in this [facility]09-29-2021 Evaluation note* Encounter Date Diagnosis Assessment [...] under 200lbs. We will continue to monitor. [facility] Other 09-16-2021 NoteHNO ID: [id number] Author: Kate Daniel MD Service: ? Author Type: Physician Type: Progress Notes Filed: 04/11/2021 3:19 PM Note Text: Assessment ESTABLISHED PATIENT Darling Khanna is a 40 year old female with a right posterior liver subcapsular fluid collection 03/03/2021: Patient presented to [facility] on 02/08/2021 for 2 days for acute ride sided abdominal/flank pain, right shoulder discomfort and nausea. She was diagnosed with Klebsiella pneumoniae UTI and was discharged with oral keflex and zofran. Patient represented to ER on 02/09/2021 for the continued complaints of pain. ? Referral From:?PCP- Peter Ahumada, DO Reason:?right abdominal pain pain; liver?fluid collection? ? Received Records From:? 02/08/2021 ER Report [facility] 02/09/2021 ER Report [facility] 02/15/2021 PCP Office note ? [...] improving. US of ovaries yesterday at [facility]. Scheduled for upper GI at end of month. Gained 50 pounds since July (was in [place] for 3 months, drank a lot); diagnosed [...] which included preparing to see the patient, bkdo-re-dazw patient care and completing clinical documentation. Kate Daniel [facility]09-01-2021 NoteHNO ID: [id number] Author: William De León MD Service: ? [...] findings to suggest etiology Pre-conference plan (from [employer]): - Observation and serial imaging Imaging Review: - January 2021 - CT Abd/Pelvis and MRI Final Consensus Recommendation(s): - No clear etiology of right posterior subcapsular fluid collection - Fluid consistency is not consistent with a hematoma - No underlying masses or intrinsic liver pathology Final recommendation(s) differ from pre-conference plan? (Y/N) - No William De León MD [facility] NoteHNO ID: [id number] Author: Kate Daniel MD Service: ? Author [...] 40 year old female Patient presented to [facility] on 02/08/2021 for 2 days for [...] ? Received Records From: 02/08/2021 ER Report [facility] 02/09/2021 ER Report [facility] 02/15/2021 PCP Office note Visited [...] improving. US of ovaries yesterday at [facility]. Scheduled for upper GI at end of month. Gained 50 pounds since July (was in [place] for 3 months, drank a lot); diagnosed [...] was malignant. Seen by Dr. Lara on [facility], in [facility]; denies chemotherapy or radiation. Hernia repair [...] rhythm. Abdomen: Abdomen so (more content not included)...[facility] 12-28-2020 NoteHNO ID: [id number] Author: Tracey Hair Ma Service: ? Author Type: ? Type: Progress Notes Filed: 12/28/2020 4:25 PM Note Text: Dispensed XL/XXL Reaction brace for the Right knee. Dispensed by [employer] Worker. Instructions were given on application/adjustments. She will f/u as scheduled/prn. Tracey Hair MA,[facility] 12-28-2020 NoteHNO ID: [id number] Author: Ishan Yusuf, DO Service: ? Author [...] PT if not improving Procedures Ishan Yusuf, [facility]05-11-2021 NoteHNO ID: [id number] Author: Ishan Yusuf, DO Service: ? Author [...] results and radiologist's interpretation, available in the [facility] health record. Images were reviewed with the [...] Follow-up in 3-4 weeks Procedures Ishan Yusuf, [facility]05-11-2021 NoteHNO ID: [id number] Author: RT Suzanna(R) Service: ? Author Type: Building Maintenance Mechanic Type: Progress Notes Filed: 11/30/2020 3:44 [...] BY: RT Suzanna(Esteban) November 30, 2020 3:43 [facility]04-29-2021 NoteHNO ID: [id number] Author: RT Victor M(R) Service: ? Author Type: Building Maintenance Mechanic Type: Progress Notes Filed: 11/18/2020 3:47 [...] RT Victor M(R) November 18, 2020 3:45 [facility]04-29-2021 NoteHNO ID: [id number] Author: Ishan Yusuf, DO Service: ? Author [...] results and radiologist's interpretation, available in the [facility] health record. Images were reviewed with the patient/family members in the office today. My personal interpretation of the performed imaging is intra-articular proximal phalanx fracture CLINICAL IMPRESSION / ASSESSMENT: (B87.002D) Closed nondisplaced fracture of proximal phalanx of left little finger, initial encounter (primary encounter diagnosis) PLAN: Placed her in aluminum splint Will discuss case with Dr. Montana due to some progression of depression Follow-up accordingly Procedures Ishan Yusuf, [facility]04-15-2021 NoteHNO ID: [id number] Author: Bob Millan Service: ? Author Type: Physician Type: Progress Notes Filed: 11/04/2020 2:12 PM Note Text: [facility] Office Visit Documentation Note [facility] Sports Medicine Orthopaedic and Rheumatologic [place] REASON FOR VISIT / CHIEF COMPLAINT SERVICE [...] results and radiologist's interpretation, available in the [facility] health record. Images were reviewed with the patient/family members in the office today. My personal interpretation of the performed imaging is Has IA prox phalanx fracture at PIP ASSESSMENT / PLAN CLINICAL IMPRESSION / ASSESSMENT: (R78.910L) Closed nondisplaced fracture of proximal phalanx of [...] plan as detailed above. Bob Millan D.O. [facility] Orthopaedic and Rheumatologic [place] Team Physician, [facility] Consulting Physician, [place] Sawyer Landeros, [employer] Room Attendant [phone] Patient verbalizes understanding and agrees with the treatment plan as detailed above.[facility] Diagnosis Liver pain- Primary Abdominal pain, other specified site documented in this encounter [facility] noteNo InformationNortPrezma Other Evaluation noteNo assessment information available [facility] Work Phone: Evaluation note* Diagnosis Onset Date Resolution Status Ground-level fall acuteLaceration of knee, leftacuteRight elbow painacute [facility] Work Phone: Evaluation note* Diagnosis Onset Date Resolution Status Ground-level fall acuteLaceration of knee, leftacuteRight elbow painacuteElbow fracture, right acuteHypothyroidismacuteLaceration of knee, leftacute [facility] Work Phone: Evaluation note* Diagnosis Onset Date Resolution Status Ground-level fall acuteLaceration of knee, leftacuteRight elbow painacuteElbow fracture, right acuteHypothyroidismacuteLaceration of knee, leftacuteFracture of radial neck, right, closedacute [facility] Work Phone: Evaluation note* Diagnosis Onset Date Resolution Status Ground-level fall acuteLaceration of knee, leftacuteRight elbow painacuteElbow fracture, right acuteHypothyroidismacuteLaceration of knee, leftacuteFracture of radial neck, right, closedacuteFracture of radial neck, right, closedacute [facility] Work Phone: Evaluation note* Diagnosis Onset Date Resolution Status Ground-level fall acuteLaceration of knee, leftacuteRight elbow painacuteElbow fracture, right acuteHypothyroidismacuteLaceration of knee, leftacuteFracture of radial neck, right, closedacuteFracture of radial neck, right, closedacuteFracture of radial neck, right, closedacute [facility] Work Phone: Evaluation note* Author Hyacinth Hutton [facility] CenterAuthoredAugust 2023 2:47pmThe above note written by Polly STRINGER acting as human recorder, note dictated by Dr.Bryan Ahumada. [facility] Work Phone: Evaluation note* Diagnosis Closed nondisplaced fracture of proximal phalanx of left little finger, initial encounter documented in this encounter [facility]* Diagnosis Lumbosacral radiculopathy- Primary Thoracic or lumbosacral neuritis or radiculitis, unspecified documented in this encounter [facility] HealthcareEvaluation note* Diagnosis Onset Date Resolution Status Admit Date Bilateral foot pain acuteNovember 2023 2:36pmFatty liveracuteNovember 2023 2:36pmGERD (gastroesophageal reflux disease)acuteNovember 2023 2:36pmHypothyroidism acuteNovember 2023 2:36pmPre-diabetesacuteNovember 2023 2:36pm [facility] Work Phone: Evaluation note* Author Hyacinth Hutton [facility] CenterAuthoredFebruary 2024 2:43pmThe above note written by SIOMARA Abdi acting as human recorder, note dictated by Dr. Peter Ahumada. [facility] Work Phone: Evaluation note* Diagnosis Sebaceous cyst- Primary documented in this encounter [facility] HealthcareEvaluation note* Diagnosis Sebaceous cyst- Primary documented in this encounter [facility] HealthcareEvaluation note* Diagnosis Onset Date Resolution Status Admit Date Bilateral foot pain acuteOctober 2024 7:54amHypothyroidismacuteOctober 2024 7:54am [facility] Work Phone: History general Narrative - Reported* Type Description Date Medical History asthma Medical HistoryHPVMedical Historyf/u with Health Dept for INSOLE REINFORCER needsMedical HistoryInclusion cystSurgical Historyjaw surgery for underbiteSurgical History breast [id number] Historysee surgical hx [facility] Other Hospital Discharge instructions Additional Instructions Central diet as tolerated Increase oral fluids Take the diclofenac twice a day as needed for pain and inflammation Take oxycodone every 6 hours for severe pain Follow-up with your family doctor for recheck I also gave you the number for gastroenterology Return to the ER for more severe pain high fever vomiting or any other concerns [facility] Work Phone: Hospital Discharge instructions Additional Instructions Sutures out in 10 daysUniversity [facility] Work Phone: Hospital Discharge instructions [...] directed for pain unless a prescription was provided.[facility] Work Phone: Hospital Discharge instructionsAmbulatory Orders* Referral to Podiatry Location: None Selected [facility] Work Phone: Refpwj for referral (narrative)No reason for referral information availableMartins Ferry Hospital Medical [facility] Work Phone: Revohv for visit Narrative* Other Medical (Routine) - ClosedSpecialtyDiagnoses / ProceduresReferred By ContactReferred To Contact Neurology Diagnoses Sciatica, left side Procedures VA NEEDLE EMG EA EXTREMTY W/PARASPINL AREA COMPLETE VA NERVE CONDUCTION STUDIES 9-10 STUDIES Robert Martinez MD [address] [place] [address] Phone: tel: fax: Shakeel Rios MD [address] [place] [address] Phone: tel: fax: Referral IDStatusReasonStart DateExpiration DateVisits RequestedVisits [id number] Perform Procedure / [facility] Healthcare Summary Purpose Family History Relationship Condition [...] suture per Dr. Ahumada R10.[address] HAUMADA S52.131A - Displaced fracture of neck of [...] section and content) DATE CREATED AUTHOR 02/25/2021 [facility] DATE CREATED AUTHOR AUTHOR'S ORGANIZ ATION 10/18/2021 [facility] DATE CREATED AUTHOR AUTHOR'S ORGANIZ ATION 10/14/2024 [facility] Medical [facility] DATE CREATED AUTHOR AUTHOR'S ORGANIZ ATION 05/02/2025 [facility] DATE CREATED AUTHOR AUTHOR'S ORGANIZ ATION 05/17/2025 [facility] Source Comments (unrecognize d section and content) In the event this informatio n is protected by the Federal Confidentiality of Alcohol and Drug Abuse Patient Records regulations: The Federal rules restrict any use of the information to criminally investigate or prosecute any alcohol or drug abuse patient.[facility] HospitalIn the event this information is protected by the Federal Confidentiality of Alcohol and Drug Abuse Patient Records regulations: The Federal rules restrict any use of the information to criminally investigate or prosecute any alcohol or drug abuse patient.[facility] HospitalIn the event this information is protected by the Federal Confidentiality of Alcohol and Drug Abuse Patient Records regulations: The Federal rules restrict any use of the information to criminally investigate or prosecute any alcohol or drug abuse patient.[facility] Reason for Visit (unrecogniz ed section and content) ReasonCommentsEstablished PatientReasonCommentsRight subclavicular shoulder mass Lump under collar bone. It is soft, and does not hurt.[id number] pow Exc. Rt. chest cyst Care Teams (unrecognized sec tion and content) Team Status: Active Member Role Status Dates Peter Ahumada DO Primary Care Provider Active Team Status: Inactive Member Role Status Dates Peter Ahumada DO Primary Care Provider, Attending Provi dani Active Team MemberRelationshipSpecialtyStart DateEnd Date Peter Ahumada DO [address] [place] [phone] PCP - GeneralFamily Practice11/22/15 Team Status: Inactive Member Role Status Katarina Ahumada DO Primary Care Provider Active BAYLEE Jimenez-BCEmergency ProviderActive Team Status: Inactive Member Role Status Katarina Ahumada DO Primary Care Provider Active Koki Elkins ([place]) , APRNAttending ProviderActive Team Status: Inactive [...] DateEnd Date Peter Ahumada DO [address] [place] [address] PCP [facility]11/22/15 Team Status: Inactive Member Role Status Dates Peter Ahumada DO Primary Care Provider Active Sta rt: May 19, 2024 End: May 19PING FrankM MSAttending ProviderActiveStart: May 19, 2024 End: May 19, 2024Team MemberRelationshipSpecialtyStart DateEnd Date Peter Ahumada MD [address] [place] [phone] PCP [facility]01/25/23Team MemberRelationshipSpecialtyStart DateEnd Date Peter Ahumada MD [address] [place] [phone] PCP [facility]01/25/23 Team Status: Inactive Member Role Status Dates [...] DateEnd Date Peter Ahumada MD [address] [place] [phone] PCP - General01/25/23 Team Status: Inactive Member Role Status Katarina Lara DO Attending Provider Active Start: September 29, 2024 End: September 29, 2024Team MemberRelationshipSpecialtyStart DateEnd Date Peter Ahumada MD [address] [place] [phone] PCP - General01/25/23 Team Status: Inactive Member [...] BE BASED ON THE PRIMARY CLINICAL RECORDS. [facility] [employer] [facility]. provides no warranty or guarantee of the accuracy or completeness of information in this document.
--- NOTE | 2025-06-25 08:36 | PM.CN ---
Consult Note: HPI Data of Consult Patient: known to practice within the last 3 years Consult date: 06/25/25 Requesting Physician: Anastasiya Thomas NP Primary Care Provider: Peter Lozano DO Consult Narrative Reason for consult: low back pain Narrative: 44yof who presents for evaluation. increasing low back pain. pt has failed to benefit from > 6 weeks of PT and provider guided HEP, heat, ice, tylenol and nsaids. utilizing baclofen and meloxicam PRN, without side effects. previously underwent bilateral L4-5 L5-S1 facet RFA (technically L5-6 L6-S1 facets with l6 vertebra) noting pain 0-2/10 increasing to 4/10 at this time. pt notes pain has improved since her recent procedure for bilateral foot pain secondary to sweat glands. pt utilizing baclofen 5-10mg BID prn pain/spasms and meloxicam 7.5mg bid with benefit, denies side effects. cc:: CC: Anastasiya Thomsa NP Review of Systems ROS Musculoskeletal Reports: back pain and joint pain PFSH PFSH Medical History Simple cyst of breast ?N60.09 - Solitary cyst of unspecified breast (ICD-10) Sebaceous cyst ?L72.3 - Sebaceous cyst (ICD-10) Low back pain ?M54.50 - Low back pain, unspecified (ICD-10) Hypothyroid ?E03.9 - Hypothyroidism, unspecified (ICD-10) Asthma ?J45.909 - Unspecified asthma, uncomplicated (ICD-10) Surgical History S/P hernia repair ?Z98.890 - Other specified postprocedural states (ICD-10) ?Z87.19 - Personal history of other diseases of the digestive system (ICD-10) History of mandibular surgery ?Z98.890 - Other specified postprocedural states (ICD-10) Meds Home Medications and Allergies Home Medications ?Medication ?Instructions ?Recorded ?Confirmed ?Type esomeprazole magnesium 40 mg 40 mg PO DAILY 06/23/24 04/27/25 History capsule,delayed release esteban control 06/23/24 History multivitamin-ferrous 1 tab PO DAILY 06/23/24 04/27/25 History fumarate-folic acid 18 mg-400 mcg tablet (Centrum Women) or-em-qteoyv 68 mcg DFE-caff 95 ea PO 06/23/24 History wm-tftb-vaofi-tea oral effer pwdr pack (ATP Ignite) albuterol sulfate 90 mcg/actuation 2 puff inhalation PRN shortness of 09/01/24 History aerosol inhaler breath or wheezing baclofen 10 mg tablet 10 mg PO BID PRN muscle spasm #60 09/11/24 04/27/25 Rx tabs meloxicam 7.5 mg tablet 7.5 mg PO BID PRN pain #60 tabs 09/11/24 04/27/25 Rx diazepam 10 mg tablet (Valium) 10 mg PO Q8H PRN sedation 12/08/24 04/27/25 History hydrocodone 5 mg-acetaminophen 325 1 tab PO QID PRN pain #28 tabs 12/17/24 04/27/25 Rx mg tablet meloxicam 7.5 mg tablet 7.5 mg PO BID #60 tabs 05/27/25 Rx Allergies Allergy/AdvReac Type Severity Reaction Status Date / Time benzonatate AdvReac Mild Diarrhea Verified 04/27/25 08:41 indomethacin AdvReac Mild swelling Verified 04/27/25 08:41 Exam Constitutional Documenting provider has reviewed patient's vital signs: yes Common normals: no apparent distress, oriented x3 and alert General appearance: cooperative HENMT Common normals: normocephalic, hearing grossly normal bilaterally and moist oral mucous membranes Head and scalp: normocephalic Eye Common normals: PERRL Pupil: PERRL Neck & C-Spine Common normals: full ROM General: normal visual inspection Chest Common normals: inspection of chest normal Respiratory Common normals: normal respiratory effort, no retractions and no use of accessory muscles Back & Pelvis Lumbar spine/lower back: lumbar ROM normal, pain with ROM, lumbar spinal tenderness (around L4, minimal L5-6) and straight leg raise negative bilaterally; ROM not limited Other: mildly positive facet loading, moderate tenderness over L4 strength 5/5 in BLE sensation intact BLE Extremity Common normals: normal to inspection and full ROM Neuro Common normals: oriented x3 Sensorium/orientation: alert Gait (neuro): normal gait Psych Common normals: mental status grossly normal, thought process normal, cooperative, affect normal, speech normal and activity/motor behavior normal Speech: normal speech Thought process: normal thought process Results Imaging Lumbar MRI: Attestation: I have reviewed the pertinent imaging results. Radiologist's impression: Multiecho imaging in the axial and sagittal plane was performed without contrast. There is 3 - 4 mm of spondylolisthesis at the lumbosacral junction where there is also degenerative endplate signal change. Alignment is otherwise maintained. There are no acute compression fractures or marrow edema. The conus medullaris is within normal limits for caliber, position and signal intensity. No paraspinal soft tissue abnormalities are identified. At the lumbosacral junction, there is narrowing of the disc space. There is minor annular disc bulging, slightly asymmetric toward the left. There is subtle thecal sac effacement. There is minor inferior foraminal encroachment on the left. At the remaining lumbar levels, no disc bulge or herniation is identified. No central or foraminal stenosis is noted. Additional Findings Additional findings: If on a controlled substance or opioids, I have checked an [place] report on this patient and there are no aberrancies noted in the prescribing history.??If on a controlled substance or opioid a drug screen was completed and reviewed within the last year, and if there has not been a drug screen completed we ordered one today to monitor higher risk, state monitored pain medication use. As part of providing excellent, safe, comprehensive care, the following was completed at our patient's visit: 1. A medication reconciliation and review to ensure accurate knowledge of current/active medications, including asking our patients to inform us about any lwgj-szm-bvwykvd medications or herbal remedies/nutritional supplements/alternative remedies. 2. A review to specifically ensure our patients have had annual screening for screening for depression, screening for tobacco use, and screening for unhealthy alcohol use. For concerning screenings had a discussion with the patient, provided patient education, and recommended follow-up with primary care provider when appropriate. If patient noted with a risk of falling, they received education on strength, gait, and balance training to prevent future risk of falling. Portions of this note may have been carried over from the previous visit and updated as appropriate. Please note this office utilizes paper charting in addition to the electronic medical record. A list of current medications, vitals, and PMH is available there as the clinical staff outside of myself do not have access to meditech charting during the clinic day operations. As part of providing quality comprehensive care the current medications, vitals, and PMH were reviewed in the paper chart. Assessment and Plan Assessment and Plan (1) Lumbar spondylosis: Assessment and Plan: The patient has had over 3 months of moderate to severe low back pain with functional impairment and inadequate response to conservative care including NSAIDS (unless there are contraindication such as concurrent blood thinners), multiple oral or topical pain medications, and home exercise program/physical therapy.? Patient has completed >6 weeks of guided home exercise program and/or formal physical therapy program without relief of their symptoms.? 03/25/25 bilateral L5-6 L6-S1 facet RFA with at least 50% improvement in pain and functional ability (2) Vertebrogenic low back pain: Assessment and Plan: notable modic changes at L5 L6 on MRI independent review (3) Degeneration of intervertebral disc of lumbar region with discogenic back pain: Assessment and Plan: 03/16/25 bilateral L5-S1 TFESI >80% improvement for 1 month Plan defer additional therapy as pain is well controlled at this time. pt has upcoming ns consultation to establish care and consult change meloxicam 7.5mg bid prn pain take with food continue baclofen 10mg bid prn pain/spasms continue HEP as tolerated f/u 3 months, sooner if needed
== END 2025-06-25 07:57 | disposition home or self-care (01) ==
LOC: PM 07:56
PROVIDERS: PCP Family Medicine; Visit Provider Nurse Practitioner
DX: M47.816 Spondylosis without myelopathy or radiculopathy, lumbar region (principal); M51.360 Other intervertebral disc degeneration, lumbar region with discogenic back pain only
CPT/HCPCS: G0463

== ENCOUNTER 2025-07-08 08:11 | Outpatient (OUT) | payer OTHER, SELFPAY ==
--- OUTSIDE RECORDS SUMMARY | 2025-06-15 02:55 | XMS_ITS | Continuity of Care Document ---
Author Organization [facility] Address [address] [place] [address] Phone Care Team Providers Care [employer] Name Role Phone Severo KETANAgusto Tamar CARLINan Unavailable Unavaila ble Allergies, Adverse Reactions, Alerts Substance Reaction Status Criticality No Known Allergies Active No Inform ation Medications Medication Instructions Dosage Effective Dates (start - stop) Status Comments baclofen 40,000 mcg/20 mL (2,000 mcg/mL) intrathecal kit infuse (3.75MCG/H) by cont intrathecal inf route (90 mcg/day) 3.75 MCG/H - Active XIFYRM (unknown strength) inject 1 milliliter by intravenous route every day over Not Available - Active esomeprazole magnesium 20 mg capsule,delayed [...] chewable tablet - Active Procedures Procedure Date URINALYSIS NONAUTO W/O SCOPE OFFICE/OUTPATIENT VISIT, EST DIAST BP 80-89 MM HG SYST BP < 130 MM HG Tobacco User Not Consuled Pt inelig neg scrn depres PREV VISIT, EST, AGE 40-64 PREV VISIT, EST, AGE 40-64 DIAST BP 80-89 MM HG SYST BP < 130 MM HG MED LIST DOCD IN [facility] RVW MEDS BY RX/DR IN [facility] Pt inelig neg scrn depres OFFICE/OUTPATIENT VISIT, [...] Diagnoses Date Provider Providers Copied on Encounter [facility], [address] [place] [address], [id number] , [place] tel: [phone] [facility] No Information 5 [facility] Koki. [address], [place], [id number], [place]. tel:[phone] OFFICE/OUTPA TIENT VISIT, EST [facility], [address], [place], [id number] , [place] tel: [phone] [facility] vaginal discharge/itch ing (chief complaint) Body mass index [BMI] 31.0-31.9, adultVaginal odorBV (bacterial vaginosis)Other specified bacterial agents as the cause of diseases classified elsewhereBody mass index [BMI] 32.0-32.9, adult 5 [facility] K[facility]. [address] [place] [address], [id number], [place]. tel:[phone] PREV VISIT, EST, AGE 40-64 [facility], [address] [place] [address], [id number] , [place] tel: [phone] [facility] annual exam (chief complaint) Encounter for gynecological examination (general) (routine) without abnormal findingsBody mass index [BMI] 31.0-31.9, adultEncounter for screening mammogram for Ca of breastOCP follow up Rx 4 [facility] K[facility]. [address] [place] [address], [id number], [place]. tel:[phone] PREV VISIT, EST, AGE 40-64 [facility], [address] [place] [address], [id number] , [place] tel: [phone] [facility] annual exam (chief complaint) Encounter for gynecological examination (general) (routine) without abnormal findingsEncounte r for STD screening- STD High risk heterosexual behaviorOCP follow up RxBody mass index [BMI] 34.0-34.9, adult 3 [facility] K[facility]. [address] [place] [address], [id number], [place]. tel:[phone] OFFICE/OUTPA TIENT VISIT, EST [facility], [address], [place], [id number] , [place] tel:[phone] [facility] Ovarian cyst (chief complaint) Right ovarian cystFamily history of uterine cancerEncounter for screening mammogram for Ca of breastBody mass index [BMI] 36.0-36.9, adult Oct- 3 [facility]. [address], [place], [id number], [place]. tel:[phone] PREV VISIT, EST, AGE 40-64 [facility], [address] [place] [address], [id number] , [place] tel: [phone] [facility] annual exam (chief complaint) Encounter for gynecological examination (general) (routine) without abnormal findingsBody mass index [BMI] 33.0-33.9, adultEncounter for STD screeningOther problem related to lifestyleOCP follow up RxEncounter for screening mammogram for Ca of breast 2 [facility] K[facility]. [address] [place] [address], [id number], [place]. tel:[phone] PREV VISIT, EST, AGE 18-39 [facility], [address] [place] [address], [id number] , [place] tel: [phone] [facility] annual exam (chief complaint) Encounter for gynecological examination (general) (routine) without abnormal findingsBody mass index [BMI] 37.0-37.9, adultPelvic pain in femaleEncounter for screening mammogram for Ca of breastOCP follow up Rx 1 Severo TASHA Telles. [address], [place], [id number], [place]. tel:[phone] [facility], [address] [place] [address], [id number] , [place] tel: [phone] [facility] Abnormal Mammogram 0 [facility]. [address] [place] [address], [id number], [place]. tel:[phone] PREV VISIT, EST, AGE 18-39 [facility], [address] [place] [address], [id number] , [place] tel: [phone] [facility] annual exam (chief complaint) Encntr for middle school principal exam (general) (routine) w/o abn findingsFibrocys tic disease of breastEncounter for STD screeningOther problem related to lifestyleBody mass index (BMI) 29.0-29.9, adultUrine test negative - 0 [facility] K[facility]. [address] [place] [address], [id number], [place]. tel:[phone] [facility], [address] [place] [address], [id number] , [place] tel: [phone] [facility] Abnormal Mammogram 0 [facility] K[facility]. [address] [place] [address], [id number], [place]. tel:[phone] [facility], [address] [place] [address], [id number] , [place] tel: [phone] [facility] Abnormal Mammogram 9 [facility] K[facility]. [address] [place] [address], [id number], [place]. tel:[phone] OFFICE/OUTPA TIENT VISIT, EST [facility], [address] [place] [address], [id number] , [place] tel: [phone] [facility] abnormal pap smear (chief complaint) Body mass index (BMI) 29.0-29.9, adultCyst of right breastFibrocysti c disease of breastAtypical squamous cells of undetermined significance on cytologic smear of cervix (ASC-US) 9 [facility] K[facility]. [address] [place] [address], [id number], [place]. tel:[phone] PREV VISIT, EST, AGE 18-39 [facility], [address], [place], [id number] , [place] tel: [phone] [facility] annual exam (chief complaint) Encntr for middle school principal exam (general) (routine) w/o abn findingsOther problem related to lifestyleEncount er for STD screeningBody mass index (BMI) 28.0-28.9, adult 8 [facility] [address], [place], [id number], [place]. tel:[phone] [facility], [address], [place], [id number] , [place] tel: [phone] [facility] Cyst of right breast 8 [facility]. [address], [place], [id number], [place]. tel:[phone] [facility], [address], [place], [id number] , [place] tel: [phone] [facility] Cyst of right breast 8 [facility]. [address], [place], [id number], [place]. tel:[phone] OFFICE/OUTPA TIENT VISIT, EST [facility], [address], [place], [id number] , [place] tel: [phone] [facility] abnormal pap smear (chief complaint) Body mass index (BMI) 28.0-28.9, adultCIN 2OCP follow up Rx 8 [facility]. [address], [place], [id number], [place]. tel:[phone] [facility], [address], [place], [id number] , [place] tel:[phone] [facility] Fibrocystic disease of breast 2 8 [facility]. [address], [place], [id number], [place]. tel:[phone] OFFICE/OUTPA TIENT VISIT, [facility], [address], [place], [id number] , [place] tel: [phone] [facility] Leep follow up (chief complaint) Unspecified lump in unspecified breastCIN 2 7 [facility]. [address], [place], [id number], [place]. tel:[phone] [facility], [address], [place], [id number] , [place] tel: [phone] [facility] Leep (chief complaint) PEG 2 7 [facility]. [address], [place], [id number], [place]. tel:[phone] OFFICE/OUTPA TIENT VISIT, [facility], [address], [place], [id number] , [place] tel: [phone] [facility] Colpo (chief complaint) Atypical squamous cells of undetermined significance on cytologic smear of cervix (ASC-US)Cervical high risk HPV DNA test positive 7 [facility]. [address], [place], [id number], [place]. tel:[phone] OFFICE/OUTPA TIENT VISIT, [facility], [address], [place], [id number] , [place] tel: [phone] [facility] contraception (chief complaint) contraceptive management 7 Severo [facility] K[facility]. [address], [place], [id number], [place]. tel:[phone] OFFICE/OUTPA TIENT VISIT, [facility], [address], [place], [id number] , [place] tel: [phone] [facility] vaginal discharge/itch ing (chief complaint) Vulvovaginitis 7 [facility]. [address], [place], [id number], [place]. tel:[phone] PREV VISIT, EST, AGE 18-39 [facility], [address], [place], [id number] , [place] tel: [phone] [facility] annual exam (chief complaint) - well woman with abnormal findingDysmenorr heaEncounter for STD screeningOther problem related to lifestylecontrac eptive managementEncntr for middle school principal exam (general) (routine) w/o abn findingsUmbilica l hernia without obstruction and without gangrene [facility]. [address], [place], [id number], [place]. tel:[phone] PREV VISIT, EST, AGE 18-39 [facility], [address], [place], [id number] , [place] tel: [phone] [facility] Update (chief complaint)robin al exam (chief complaint)cont raception (chief complaint) Encounter for general middle school principal exam without abnormal findingEncounter for STD screeningOther problem related to lifestyle 6 [facility]. [address], [place], [id number], [place]. tel:[phone] PREV VISIT, EST, AGE 18-39 [facility], [address], [place], [id number] , [place] tel: [phone] [facility] annual visit (chief complaint) Gynecological ExaminationIrreg ular menstrual cycle 4 [facility]. [address], [place], [id number], [place]. tel:[phone] PREV VISIT, EST, AGE 18-39 [facility], [address], [place], [id number] , [place] tel: [phone] [facility] No Information 2 David Khan. [address], [place], [id number]. tel:[phone] PREV VISIT, NEW, AGE 18-39 [facility], [address], [place], [id number] , [place] tel:[phone] [facility] No Information 0-201 0 Юлия Killian. [address], [place], [id number], [place]. tel:[phone] Family History Family Member Type Diagnosis Age [...] Payer name Insurance type Covered republican ID Authorwua brielle(s) [employer] [id number] Medicaid Wrap - [employer] [place] [id number] Medicaid Wrap - [employer] [place] [id number] Social History Type Description Quantity Date Captured Comments Alcohol Use Details Unknown Caffeine Use Details Unknown Tobacco Use Status No Information Smoking Status No Information Sex Female Sexual Orientation Straight or heterosexual Gender Identity Female Chief Complaint And Reason For Visit No Information Reason For Referral Reason For Referral No Information Plan Of Treatment Date Type Action Status Goal Hep A. Due on du e Goal Depression screening. Due on due Goal Tdap Vaccine. Due on 2024 due Goal PRAPARE ASSESSMENT. Due on N ov due Goal Hepatitis C screening. Due o n due Goal Influenza vaccine. Due on No v due Goal Mammogram. Due on 2 due Goal Lipid panel. Due on 025 due Goal Unhealthy drug use screening . Due on due Goal Tdap. Due on due Goal HPV. Due on due Goal RLP. Due on due Goal Dietary management education , guidance, and counseling completed Goal Hep A. Due on du e Goal Depression screening. Due on due Goal HPV. Due on due Goal Lipid panel. Due on 024 due Goal Hepatitis C screening. Due o n due Goal Tdap. Due on due Goal Influenza vaccine. Due on due Goal Unhealthy drug use screening . Due on due Goal Mammogram. Due on 2 due Goal RLP. Due on due Goal Tdap Vaccine. Due on 2023 due Goal PRAPARE ASSESSMENT. Due on due Goal HPV. Due on [...] on due Goal Tdap Vaccine. Due on 2022 due Goal Mammogram. Due on due Goal Lipid panel. Due on due Goal PRAPARE ASSESSMENT. Due on A due Goal Depression screening. Due on due Goal Influenza vaccine. Due on Ap due Goal Tdap. Due on due Goal RLP. Due on due Goal Dietary management education , guidance, and counseling completed Goal Lipid panel. Due on due Goal RLP. Due on due Goal Mammogram. Due on due Goal PRAPARE ASSESSMENT. Due [...] US EXAM, PELVIC, COMPLETE Appointment date/timeframe: 03/02/2021 [id number] Ordered: MAMMOGRAM, SCREENING Appointment date/timeframe: 11/23/2022 [id number] Ordered: DX MAMMO INCL CAD BI Bilateral Appointment date/timeframe: 07/14/2019 [id number] Ordered: US Exam, Breast(s) Bilateral Appointment date/timeframe: 01/16/2019 [id number] Ordered: Referrals: Surgery. Consult Appointment date/timeframe: 02/28/2018 [id number] Ordered: Surgery (related to Umbilical hernia without obstruction and without gangrene) [id number], TabithaBOOKED History Of Present Illness Encounter Date Complaint History Of Prese nt Illness vaginal discharge/itching Presen tly the client is experiencing vaginal itching, vaginal irritation and vaginal odor. Presently the client is not experiencing vaginal discharge.The client is premenopausal. Last menstrual period was 05/13/2025. Additional information: Patient Is here for vaginal discharge with irritation. stats she has to wear a pad daily due to the increase in discharge. annual exam Currently pregna nt: no. : 1. induced: 1. The client states using oral contraceptive and vasectomy for control. Last LMP was 06/10/2024. The client no longer uses tobacco. The client does drink alcohol. Additional information: Patient is here for annual exam. She is currently on OCPs and desires to continue. Denies other ACCOUNTS ADMINISTRATOR problems at this time. . annual exam [...] does take Motrin PRN cramping. Denies other ACCOUNTS ADMINISTRATOR problems at this time. She does get [...] doing well with OCPS and denies other ACCOUNTS ADMINISTRATOR problems was just treated recently for a [...] 1 year she had BTB. Denies other ACCOUNTS ADMINISTRATOR problems at this time.. abnormal pap smear [...] is willing to try nuvaring. Denies other ACCOUNTS ADMINISTRATOR problems at this time. contraception Education provid [...] is regular, but noticed it was much telehealth nurse and less cramping with the anti inflamatory [...] fullness above her clavical evaluated. Physician in [place] has recommended a possible biopsy Functional Status Date Functional Assessmen t No Information Instructions Date Instruction Additional Infor mation cervical cultures ob tained and sent to lab. Patient to call in 1 week for result. Stress importance of using condoms to prevent STDs in the future. Discussed proper hygiene measures. Rx for flagyl was sent to her pharmacy. Related to Vaginal odor Giving encouragement to exercise Related to Body mass index [BMI] 31.0-31.9, adult Dietary management e ducation, guidance, and counseling Related to Body mass index [BMI] 31.0-31.9, adult Discussed BC options . Patient desires to [...] ovulation suppression. Related to Right ovarian cyst Dietary management e ducation, guidance, and counseling Related to Body mass index [BMI] 36.0-36.9, adult Giving encouragement to exercise Related to [...] if desires results. Mammogram ordered for Dec. 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 Related to Cyst of right breast Dietary management e ducation, guidance, and counseling Related to Body mass index (BMI) 29.0-29.9, adult Giving encouragement to exercise Related to Body mass index (BMI) 29.0-29.9, adult Nov-06-2018 Cervical cultures se nt to lab. Patient [...] next repeat pap. 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 Pat ietn to call in 1 week for result. [...] insurance, but states she gets assistance from [facility] Related to Umbilical hernia without obstruction and without gangrene Cervical cultures se nt to lab. Patient to call in 1 week for results Related to Encounter for STD screening Discussed dysmenorrh ea in detail and due [...] continue Motrin 800mg PRN Related to Dysmenorrhea Encouraged monthly B SE. Recommend calcium 1000mg QD. Encouraged good dietary intake and exercise. Laboratory specimens sent to lab. Patient to call in 2 weeks if desires results. Discussed BC options in detail to regulate dysmenorrhea and patient desires the nuvaring Related to - well woman with abnormal finding Encouraged monthly B SE. Recommend calcium 1000mg QD. Encouraged good dietary intake and exercise. Laboratory specimens sent to lab. Patient to call in 2 weeks if desires results. Encouraged to keep all follow up appt with physician in [place] for abnormal neck gland, fullness and thyroid. Patient states understanding. Encouraged to start Motrin 800mg every 8 hours around the clock during a heavy menses. Patient to take medication with food. 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 Patient to call in 1 week for results Related to Encounter for STD screening Assessments Type Assessment Date No Information Patient Care Teams Name Effective Dates (start - stop) Status Members No Information
--- OUTSIDE RECORDS SUMMARY | 2025-06-25 13:30 | XMS_ITS | Encounter Summary ---
Author Organization [facility] Address [address] [place] [address] Care Team Providers Care Licensed Guide Name Role Phone Acshira Peter Agusto HOOVER Primary Care Provider [phone] Reason for Visit * ReasonCommentsPlantar Wartslesions Encounter Details DateTypeDepartmentCare Team (Latest Contact Info)Obccyeoqzqw97/04/2025 1:30 PM ESTOffice Visit [facility] [address] [place] [address] DolLuis Miugel leary R, DPM FACFAS [address] [facility] [place] [address] Plantar verruca (Primary Dx); Neoplasm of uncertain behavior of skin; Pain in left foot Social History Tobacco UseTypesPacks/DayYears UsedDateSmoking Tobacco: FormerCigarettesQuit: 06/22/2006Smokeless Tobacco: Never Tobacco Cessation:Counseling Given: Yes Comments:Quit smoking 10 years ago Alcohol UseStandard Drinks/WeekCommentsNot Currently0 (1 standard drink = 0.6 oz pure alcohol)caffeine 1-2 cups/dayCommentsUnknownSex and Gender InformationValueDate RecordedSex Assigned at CbcvvCrdjnh45/29/2023 8:37 AM EDT Legal TaiUdkqil84/15/2023 7:07 PM EDTGender CodmiinjFuaish66/29/2023 8:37 AM EDT Sexual VbaioagbaocIbdxdbif08/29/2023 8:37 AM EDTdocumented as of this encounter Last Filed Vital Signs Vital SignReadingTime TakenCommentsBlood Vruabzsg869/7512 1:32 PM EST Bwdwp212906/25/2025 1:32 PM ESTTemperature--Respiratory Rate--Oxygen Saturation-- Inhaled Oxygen Concentration--Rxpyws720 kg (230 lb)06/25/2025 1:32 PM ESTHeight 182.9 cm (6')06/25/2025 1:32 PM ESTBody Mass Index31.19108/26/2024 1:32 PM EST documented in this encounter Progress Notes * JEAN CARLOS Kumar - 06/25/2025 1:30 PM EST Patient: Darling Ohara : 1980 PCP: Peter Lozano DO SUBJECTIVE This is a 45 y.o. female that presents today for follow up wart treatment patient states the areas feel much better she has no pain.. Allergies: Allergies[1] Past Medical History: Medical History[2] Medications: Current Medications[3] ROS: General: denies fever, chills, fatigue, malaise Unremarkable OBJECTIVE LE EXAM: DERM: Positive hair growth to b/l feet with good skin turgor noted. Negative openings in skin plantar lesions right and left foot are completely resolved VASC: Palpable pedal pulsed b/l with warm to cool tibia to toes b/l NEURO: Gross sensation intact digits 1-10 and b/l feet ORTHO: +5/5 DF/PF/IN/EV right, +5/5 DF/PF/IN/EV left. 20 degrees inversion and 10 degrees eversion STJ b/l. Ankle ROM less than 10 degrees b/l. ASSESSMENT 1. Plantar verruca 2. Neoplasm of uncertain behavior of skin PLAN Patient can return to normal pedal routine and will RTC p.r.n. JEAN CARLOS Kumar [1] Allergies Allergen Reactions Benzonatate GI intolerance Indomethacin Swelling [2] Past Medical History: Diagnosis Date Appendicitis Asthma (HCC) Breast cyst, right Chicken pox COVID-19 Fibrocystic breast 2017 Fracture of arm Mononucleosis Personal history of other specified conditions ascus high risk Pneumonia Thyroid disorder Vaginal infection [3] Current Outpatient Medications: albuterol HFA (Proventil HFA) 90 mcg/act inhaler, every 4 (four) hours., Disp: , Rfl: HYDROcodone-acetaminophen ([facility]) 5-325 MG tablet, TAKE 1 TABLET BY MOUTH EVERY 4-6 HOURS NEEDEDFOR PAIN FOR 7 DAYS, Disp: , Rfl: ibuprofen 800 MG tablet, TAKE 1 TABLET BY MOUTH THREE TIMES A DAY WITH FOOD OR MILK NEEDED, Disp: , Rfl: levothyroxine (Synthroid, Levoxyl) 88 MCG tablet, TAKE 1 TABLET BY MOUTH EVERY DAY IN THE MORNING ON EMPTY STOMACH FOR 90 DAYS, Disp: , Rfl: Mary Lou 0.25-35 MG-MCG tablet, Take 1 tablet by mouth in the morning., Disp: , Rfl: Multiple Vitamin (multivitamin) tablet, Take 1 tablet by mouth in the morning., Disp: , Rfl: omeprazole (PriLOSEC) [address] capsule, TAKE 1 CAPSULE BY MOUTH EVERY DAY 30 MINUTES BEFORE MORNINGMEAL, Disp: , Rfl: traMADol (Ultram) 50 MG tablet, TAKE 1 TABLET BY MOUTH FOUR TIMES A DAY NEEDED, Disp: , Rfl: documented in this encounter Plan of Treatment Not on file documented as of this encounter Visit Diagnoses Diagnosis Plantar verruca- Primary Neoplasm of uncertain behavior of skin Pain in left foot Pain in soft tissues of limb documented in this encounter Care Teams Team MemberRelationshipSpecialtyStart DateEnd Date Peter Lozano DO [address] [place] [phone] PCP - General01/25/23documented as of this encounter
--- OUTSIDE RECORDS SUMMARY | 2025-06-30 20:08 | XMS_ITS | Continuity of Care Document ---
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 Name Role Phone Peter Lozano DO Primary Care Provider Peter Lozano DO Attending Provider Félix Mendiola MD Attending Provider Care Teams Patient Care Team Team Status: Active Member Role/Relationship Status Dates Peter Lozano DO Primary Care Provider Active Visit Care Team Team Status: Inactive Member Role/Relationship Status Katarina Lozano DO Primary Care Provider Active Sta rt: May 15, 2025 End: May 15Yeimy Kingston ProviderActiveStart: May 15, 2025 End: May 15, 2025 Visit Care Team Team Status: Inactive Member Role/Relationship Status Katarina Lozano DO Primary Care Provider Active Sta rt: May 20, 2025 End: May 20Yeimy Kingston ProviderActiveStart: May 20, 2025 End: May 20, 2025 Visit Care Team Team Status: Inactive Member Role/Relationship Status Katarina Lozano DO Primary Care Provider Active Sta rt: June 30, 2025 End: June 30, 2025Jairo Galvez ProviderActiveStart: June 30, 2025 End: June 30, 2025 Visit Care Team Team Status: Inactive Member Role/Relationship Status Katarina Lozano DO Primary Care Provider Active Sta rt: June 30, 2025 End: June 30, 2025Jair Galvezending ProviderActiveStart: June 30, 2025 End: June 30, 2025 Chief Complaint and Reason for Visit Chief Complaint Admit Date [id number] May 15, 2025 8 :06am 5 month f/u May 20, 2025 7 :54am Lumbar pain June 30, 2025 2 :18pm M70.62 June 30, 2025 3 :14pm Reason for Visit Admit Date Bilateral foot pain May 20, 2025 7 :54am Hypothyroidism May 20, 2025 7 :54am Spondylolisthesis, lumbar region Decembe r 2024 2:18pm Trochanteric bursitis, left hip June 30, 2025 2:18pm Reason for Referral Type Reason(s) Provider Provider Contact Information P sherly Address Start Date Spondylolisthesis of lumbar region M43.16 - Spondylolisthesis, lumbar gzhzlrS06.16 - Spondylolisthesis, lumbar regionCharlotte Physical TherapyWork Phone: [phone] [facility] [id number] 2024 Allergies, Adverse Reactions, Alerts Allergen Type Severity Reaction Last Updated Verified Status benzonatate Allergy Unknown diarrhea June 30, 2025 2:33pm Yes Active indomethacin Allergy Unknown ankle swelling June 30, 2025 2:33pm Yes Active Social History Smoking Status Status Start Date End Date Date of Observa tion Ex-smoker (finding) September 09, 2024 2:29pm Observation Status Observation Response Date of Response Legal Sex Female (finding) Sex Assigned At BirthFemaleSeptember 1979 Family History Relationship Condition Age at Onset Recorded Date/T sarah mother Malignant neoplasm of uterus Unknown Problems Active Problems Problem Diagnosis/Recorded Date Onset Date Stat us Acute right flank pain February 09, 2021 10:32pm Unknown Active Epiploic appendagitis November 01, 2022 12:23pm Unknown Active Ground-level fall December 27, 2023 1:11pm Unknown A ctive Trochanteric bursitis, left hip June 30, 2025 2:5 2pm Unknown Active Spondylolisthesis, lumbar region June 30, 2025 2: 52pm Unknown Active Lump September 09, 2024 2:39pm Unknown A ctive Fatty liver December 25, 2023 4:58pm Unknown Active Bilateral foot pain June 10, 2024 3:38pm Unknown Active Cyst of right breast February 07, 2018 9:38am Unknown Active Umbilical hernia January 29, 2024 11:47am Unknown A ctive Hyperglycemia December 31, 2023 6:46am Unknown Acti ve Hyperlipidemia December 25, 2023 4:58pm Unknown Acti ve Hypothyroidism December 25, 2023 4:58pm Unknown Acti ve Atypical chest pain March 12, 2020 9:01pm Unknown Active Pyelonephritis February 08, 2021 1:16pm Unknown Act breanne Pyelonephritis February 09, 2021 10:32pm Unknown Ac tive DDD (degenerative disc disea se), lumbosacral December 25, 2023 4:58pm Unknown Active Body mass index 27.0-27.9, adult September 09, 2024 2 :41pm Unknown Active Pre-diabetes March 06, 2024 1:49pm Unknown Act breanne Knee pain, right December 19, 2023 1:02pm Unknown Ac tive Right elbow pain December 27, 2023 1:34pm Unknown Ac tive Screening for breast cancer December 08, 2024 11:50am Unk nown Active GERD (gastroesophageal reflux disease) December 25, 2023 4:58pm Unknown Active Abdominal pain February 15, 2021 6:02am Unknown Act breanne Elbow fracture, right December 31, 2023 6:25am Unknown Active Fall December 19, 2023 1:02pm Unknown Active Asthma December 25, 2023 4:58pm Unknown Active Fracture of radial neck, right, closed December 31, 2023 1:49pm Unknown Active Diffuse cystic mastopathy of right breast February 07, 2018 9:42am Unknown Active Laceration of knee, left December 17, 2023 7:41am Unknown Active Inactive/Resolved Problems Problem Diagnosis/Recorded Date Onset Date Stat us Contusion of multiple sites December 17, 2023 7:41am Unkn own Resolved Medications Medication Status Dose Units Route Directions Qty Days Refills S tart Date Stop Date End Date Reason(s) Instructions Adherence Azithromycin (Zithromax) 250 mg tablet Discontinued 0 PO.DYLZWBG38Wii 9th, 2024 11:00pmMay 2023 6:36amFor 250 mg dose pack: take 500 mg today (day 1), then 250 mg for 4 days (days 2-5) POPrednisone 20 mg tbiscyZtjczhgmytqr80JAGQ.CDXYMNK109Ktl 2023 11:00pmMay 2023 6:36am20 mg orally BID X 5 DAYS, QD X 5 DAYS;Hydrocodone-Acetaminophen 5-325 mg tablet Eelijuhnzuzx1NRCUIBRJRJ 4-6 HOURS as needed for Wbsl70682Zwg 2023May 2023 8:39amContusion of multiple sites Unspecified multiple injuries, initial encounterHydrocodone-Acetaminophen 5-325 mg eddveeAnxhlwjegwij6KRDIDRAIAN 4-6 HOURS as needed for Ghcf9800Mfb 2023December 19, 2023 11:03amContusion of multiple sites Unspecified multiple injuries, initial encounterHydrocodone-Acetaminophen 5-325 mg rhdykkHhgbjueyhudk0OQJHWVTUMA 4-6 HOURS as needed for Oqvb6242Ior 2023December 31, 2023 6:42amContusion of multiple sites Unspecified multiple injuries, initial encounterEsomeprazole Magnesium (Nexium) 40 mg capsule,delayed release(DR/EC)Qqlysrdcarfs46SETLQcmgl qwwia9511Nxoaaz 2023 11:00pmNovember 2023 3:43pmIbuprofen 800 mg TabletDiscontinued 800MGPOAs Directed as needed for PainSeptember 2017 11:00pmAugust 2019 7:22pmAcetaminophen-Codeine (Tylenol-Codeine #3) 300-30 mg tablet Discontinued1 - 0YWEHEE2N as needed for pohg7668Zhjoqcxmd 2017 11:00pm March 29, 2018 11:00pmSeptember 2017 11:02pmDiffuse cystic mastopathy of right breastIbuprofen 600 mg dzjrllQujgjfytlaxn051RNCRF8J as needed for pain 200August 2019 11:00pmMay 2023 6:36amIbuprofen 800 mg tablet Odgdiqwxwnww815QJARFbqep times daily as needed for Fwkv820Lrm 2023 11:00pm February 13, 2024 2:12pmHydrocodone-Acetaminophen 5-325 mg qsxpytKwvzfgnmhfsq7VUW POEVERY 4-6 HOURS as needed for Ysvo633Bbl 2023May 2023 8:28am Contusion of multiple sites Unspecified multiple injuries, initial encounterMultivitamin With Minerals (Hair,Skin And Nails) vuzdniNixytjrqxxek6EKWBWGywbr morningJun2023 11:00pmAugust 2023 1:25pmLevothyroxine 88 mcg msvddyCqmdmvpjrkly34GSDIJ Every morningJun2023 11:00pmNovember 2023 3:48pmAcetaminophen- Codeine 300-30 mg hvxweiQtzpehxcymck1KKPORTEOFW 4-6 HOURS as needed for jaih4498 January 28, 2024 11:00pmJuly 2023 2:12pmUmbilical hernia Umbilical hernia without obstruction or gangreneMultivitamin With Minerals (Hair,Skin And Nails) kzavteCxbtuy2KSHHIKvooz [facility]2023 1:25pm UnknownNorgestimate-Ethinyl Estradiol (Sprintec (28)) 0.25-35 mg-mcg Tablet Pmssdhjsjttr0KSVUTCgxwyNzjxhyz 2016 11:00pmJuly 2020 9:37am Levothyroxine 25 mcg CwalkeSlrxvcwiqpyd11GMJHIXeubnWyfakam 2016 11:00pmMay 2023 1:04pmAlbuterol Sulfate (Proventil Hfa) 90 mcg/actuation Hfa Aerosol MgptuvlHefhjksthkwn9VVLJWTWAOHLSALINYBO 4-6 HOURS as needed for Shortness Of Breath Or WheezingOctober 2016 11:00pmMay 2023 1:03pmLactobacillus Combination No.4 (Probiotic) 3 billion cell TghtoutTxlpzopozpyi2600TMB CELLSPO DailyOct2016 11:00pmSept2017 8:04amHydrocodone- Acetaminophen ([place]) 5-325 mg fjwldaSudhpucujelw3KLOTUHVWHG 4-6 HOURS as needed for vcjg144Gyjmqbq 2016 11:00pmSept2017 8:04amNorgestimate- Ethinyl Estradiol (Mary Lou) 0.25-35 mg-mcg kzhkrsAsjxojhxtcga7RMBZCTcrcnKgwr 2020 11:00pmMay 2023 1:04pmOmeprazole 40 mg capsule,delayed release(DR/EC) Zauytntkrnmy81USRRXqebtDoaz 2020 11:00pmMay 2023 1:04pmCephalexin 500 mg cnfizrdVbujbmtklxfy072DTRWRria times alass81132Eevm 2020 11:00pm November 01, 2022 9:30amPhenazopyridine (Pyridium) 200 mg tztjfjGanrgvtgeewu631PV POThree times daily as needed for oxca275Usgz 2020 11:00pmApril 2022 9:30amadminister with a full glass of water with each mealOndansetron 4 mg tablet,lbqbglbucjxxtoDyhqqjqqqdkv6JMXWO0N as needed for nausea and baoiqrer430 February 07, 2021 11:00pmApril 2022 9:30amDiclofenac Sodium 75 mg tablet,delayed release (DR/EC)Hvghshkmdial83FQZGHwtlo daily as needed for pain20 0April 2022 11:00pmMay 2023 6:36amOxycodone-Acetaminophen 5-325 mg exyqnmMpvkltwxrwuj7HUYWEH1I as needed for ktvf8510Eaarl 2022May 2023 6:36amEpiploic appendagitis Other specified diseases of intestineHydrocodone-Acetaminophen 5-325 mg tablet Tjxajlolgnry0VWYPYVCFIW 4-6 HOURS as needed for Bucf4744Qfal 2023July 2023 2:12pmContusion of multiple sites Unspecified multiple injuries, initial encounterEsomeprazole Magnesium (Nexium) 40 mg capsule,delayed release(DR/EC)Oukztumxceuw69PNHTAlxaf427Ojweyupi 19th, 2024 12:00amOctober 2024 9:57amLevothyroxine 88 mcg ksmqtyKofhiazuocys95 MCGPOEvery derfjvv150Otpgouvz2023 3:44pmOctober 2024 9:57am Cholecalciferol (Vitamin D3) 25 mcg (1,000 unit) olzoiyhMzavloojykfo1CAQPXFxgyf December 18, 2023 11:00pmJun2023 1:16pmFreeTextSi capsule Orally Once a day; Note: Source Status: Taking; Provider: Blake Green ( ) Diclofenac Sodium 75 mg tablet,delayed release (DR/EC)Hporppftfgoj51PADHMyrxo dailyDecember 18, 2023 11:00pmJune 2023 1:17pmTramadol 50 mg tablet Gtckjqixigyu77VWZJOip 28th, 2024 11:00pmJune 2023 1:27pmNorgestimate- Ethinyl Estradiol 0.25-35 mg-mcg pohyfyNvgyag3TXAZOVbgvz at bedtimeDecember 18, 2023 11:00pmUnknownLevothyroxine 88 mcg varfdbRhhhcsayjknl47ERIUPDeoflQob 28th, 2024 11:00pmMay 2023 1:09pmFurosemide (Lasix) 40 mg yxbnmvDmqrgjmtoxrh32UJ PODailyM2023 11:00pmJune 2023 1:17pmFreeTextSi tablet Orally Once a day; Note: Source Status: Continueprn; Provider: Blake Green PAlbuterol Sulfate (Proair Hfa) 90 mcg/actuation HFA aerosol vyzcbiiVtohph5EURPBCWRFLVLSP Every 4 hoursDecember 18, 2023 11:00pmFreeTextSi puffs as needed Inhalation every 4 hrs; Note: Source Status: RefillPRN; Refills: 1; Provider: Blake Liz UnknownIbuprofen 800 mg pqffzsPafehtslztqj564TVNCRaqvt times dailyDecember 18, 2023 11:00pmJun2023 1:17pmOmeprazole 40 mg capsule,delayed release(DR/EC) Vkwosnjpklil0IRLFCUfkxy morningDecember 18, 2023 11:00pmAugust 2023 11:43am FreeTextSi capsule 30 minutes before morning meal Orally Once a day; Note: Source Status: Taking; Refills: 3; Provider: Blake Green PPotassium Chloride 10 mEq tablet,ER particles/wykwxmuxLwyhqouarema26FSXCHBqellIoq 28th, 2024 11:00pm December 27, 2023 1:18pmBetamethasone Valerate 0.1 % klazqAhzscjuhwiic6BSKABL TOPICALTwice dailyDecember 18, 2023 11:00pmDecember 27, 2023 1:16pmFreeTextSi application Externally Twice a day; Note: Source Status: Taking; Refills: 0; Qty: 45Gram; Provider: Blake Pena Combination No.9 (Adult 50 Plus Probiotic) 4 billion cell capsuleDiscontinuedPOMa2023 11:00pmJune 2023 1:17pmMultivitamin (Daily Multi-Vitamin) ykjsztYidwri1GPJAVPbeem morningDecember 18, 2023 11:00pmUnknownLevothyroxine 88 mcg gtfiisDmrbsrixksmh14ECEKDWctgm327 December 19, 2023 1:08pmJune 2023 1:28pmBaclofen 10 mg vjfzxfPwxusk48IOKA Twice daily as neededDecember 07, 2024 11:00pmUnknownMeloxicam 7.5 mg tabletActive 7.5MGPOTwice daily as neededDecember 07, 2024 11:00pmUnknownMeclizine 25 mg tablet Aybxbzzouggd31NHFGWhjqm 6 hours as needed for motion bqllgmtz735Lta 18th, 2025 11:00pmOctober 2024 7:08amIbuprofen 800 mg ilwgpiZflwuz570AJFLZwlni times daily as needed for iand623Qoaspcu 2024 11:00pmUnknownEsomeprazole Magnesium (Nexium) 40 mg capsule,delayed release(DR/EC)Cqfbrt70IOHIGdhiy749 May 20, 2025 9:57amUnknownLevothyroxine 88 mcg cwbnkuJczqnl02GUQFDOrrel wbizdqo031QywojjqMay 20, 2025 9:57amUnknown Immunizations Immunization Event Date Not Given Reason Dose Number 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 Number Reason(s) Given Vaccine Information Statement (VIS) Detail Administration Location Quadrivalent Influenza June 07, 2022 Tetanus, Diphtheria, Pertussis (Tdap)February 18, 2018Tetanus, Diphtheria, Pertussis (Tdap)December [id number] [facility] Hospital [facility]tr Medical Equipment Device Date Implanted Device Details MESH FLAT SHEET [id number] April 24, 2017 Procedures Procedure Date Performed Status XR lumbar spine 6V w bending June 30, 2025 3:30pm completed Relevant Diagnostic Tests and/or Laboratory Data Laboratory Results Test Collection Date/Time Result Date/Time Result Interpretation Reference Range Result Comment Performing Site Corrected White Blood Count May 15, 2025 7:18am May 15, 2025 7:45am 4.9 10*3/uL 3.8-11.6FMiddletown [facility] [id number] [address] [place] [address] 30488Zjmzmembgrv WBC CountOctober 2024 7:18amOctober 2024 7:45am4.9 10*3/uL3.8-11.6FMiddletown Hospital Ctr [id number] [address] [place] [address] 65276Wam Blood CountOctober 2024 7:18amOctober 2024 7:45am4.59 10*6/uL3.60-5.00[facility] [id number] [address] [place] [address] 22450JerehtezhfHjsfjke 2024 7:18amOctober 2024 7:45am 13.4 g/dL11.8-15.4FMiddletown Hospital Ctr [id number] [address] [place] [address] 29530AbavfqkqsdOlsqqge 2024 7:18amOctober 2024 7:45am 39.6 %34.0-46.4FMiddletown Hospital Ctr [id number] [address] [place] [address] 14376Okmm Corpuscular VolumeOctober 2024 7:18amOctober 2024 7:45am86.3 qN03-542CvmlnolaqDelaware County Hospital Ctr [id number] [address] [place] [address] 02527Oxza Corpuscular HemoglobinOctober 2024 7:18amOctober 2024 7:45am29.2 pg24.7-34.3FMiddletown Hospital Ctr [id number] [address] [facility] [address]Jhlv Corpuscular Hemoglobin ConcentOctober 2024 7:18am May 15, 2025 7:45am33.8 g/dL32.0-35.0[facility] [id number] [address] [facility] [address]Auu Cell Distribution WidthOctober 2024 7:18amOct2024 7:45am13.5 %11.9-15.3FMiddletown Hospital Ctr [id number] [address] [facility] [address]Ciorpego CountOctober 2024 7:18amOct2024 7:16cp736 10*3/hH588-625RurdnewuiDelaware County Hospital Ctr [id number] [address] [facility] 240[address]Zfof Platelet VolumeOctober 2024 7:18amOct2024 7:45am7.1 fL6.3-10.7FMiddletown Hospital Ctr [id number] [address] [facility] [address]Igecpirqgby (%) (Auto)May 15, 2025 7:18amOctober 2024 7:45am54.4 %.[facility] [id number] [address] [facility] [address]Pfrtfqsiuul (%) (Auto)May 15, 2025 7:18amOctober 2024 7:45am33.8 %.[facility] [id number] [address] [facility] [address]Iwoluonmk (%) (Auto)May 15, 2025 7:18amOctober 2024 7:45am8.6 %.[facility] [id number] [address] [facility] [address]Ytlmgnwjxkj (%) (Auto)May 15, 2025 7:18amOctober 2024 7:45am1.9 %.[facility] [id number] [address] [facility] [address]Lzzysbxpt (%) (Auto)May 15, 2025 7:18amOctober 2024 7:45am1.3 %.[facility] [id number] [address] [facility] [address]Fegoxmaip RBC Relative Count (auto)May 15, 2025 7:18am May 15, 2025 7:45am0.1 /100{WBC}0-0.5FMiddletown Hospital Ctr [id number] [address] [place], [place] [address]70Neutrophils # (Auto)May 15, 2025 7:18amOctober 2024 7:45am2.7 10*3/uL1.8-7.7FMiddletown Hospital Ctr [id number] [address] [place], [place] [address]Lymphocytes # (Auto)May 15, 2025 7:18amOctober 2024 7:45am1.7 10*3/uL1.00-4.8[facility] [id number] [address] [place], [place] [address]Monocytes # (Auto)May 15, 2025 7:18amOctober 2024 7:45am0.4 10*3/uL0.0-0.8[facility] [id number] [address] [place], [place] [address]Eosinophils # (Auto)May 15, 2025 7:18amOctober 2024 7:45am0.1 10*3/uL0.0-0.45[facility] [id number] [address] [place], [place] [address]Basophils # (Auto)May 15, 2025 7:18amOctober 2024 7:45am0.1 10*3/uL0.0-0.2FMiddletown Hospital Ctr [id number] [address] [place], [place] [address]Glucose LevelOctober 2024 7:18amOctober 2024 8:07am 94 mg/zF90-676VWG recommended reference rangeRandom Glucose Reference Range is dependent on time and content of last meal. Glucose of more than 200 mg/dL in a nonstressed, ambulatory subject supports the diagnosisof Diabetes Mellitus. [facility] [id number] [address] [place] [id number] Urea NitrogenOct2024 7:18amOctober 2024 8:07am13 mg/dL7-25[facility] [id number] [address] [facility] [address]OcgzajuftlFnqtbwc 2024 7:18amOctober 2024 8:07am 0.57 mg/dLBelow low normal0.60-1.20[facility] [id number] [address] [facility] [address]Lhzetpywi GFR (CKD-EPI)May 15, 2025 7:18amOctober 2024 8:07am> 60.0 mL/MinDelaware County Hospital Ctr [id number] [address] [facility] [address]Vvdhpj LevelOctober 2024 7:18amOctober 2024 8:07am 140 mmol/P028-233JznflktjsDelaware County Hospital Ctr [id number] [address] [place] [id number] LevelOctober 2024 7:18amOctober 2024 8:07am4.3 mmol/L3.5-5.1FMiddletown Hospital Ctr [id number] [address] [facility] [address]Unmpzzbq LevelOctober 2024 7:18amOctober 2024 8:48ip962 mmol/Q79-617AoehnwoypDelaware County Hospital Ctr [id number] [address] [place] [id number] Dioxide LevelOctober 2024 7:18amOctober 2024 8:07am31.8 mmol/LAbove high quhdov46.0-31.0[facility] [id number] [address] [facility] [address]Hbxsk GapOctober 2024 7:18amOctober 2024 8:07am8.5 mEq/L6.0-15.0[facility] [id number] [address] [place], [place] [address]Calcium LevelOctober 2024 7:18amOctober 2024 8:07am 9.0 mg/dL8.6-10.3FMiddletown Hospital Ctr [id number] [address] [place] [id number] ProteinOctober 2024 7:18amOctober 2024 8:07am 6.8 g/dL6.4-8.9[facility] [id number] [address] [facility] [address]VytuwfaNpfkgjy 2024 7:18amOctober 2024 8:07am3.9 g/dL3.5-5.7FMiddletown Hospital Ctr [id number] [address] [facility] [address]PpghbbxwDdaokbr 2024 7:18amOctober 2024 8:07am2.9 g/dLDelaware County Hospital Ctr [id number] [address] [facility] [address]Hzzdily/Globulin RatioOct2024 7:18amOctober 2024 8:07am1.3FMiddletown Hospital Ctr [id number] [address] [facility] [address]Pgttw BilirubinOctober 2024 7:18amOctober 2024 8:07am0.4 mg/dL0.3-1.0[facility] [id number] [address] [facility] [address]Pceemwcqr Amino Transf (AST/SGOT)May 15, 2025 7:18am May 15, 2025 8:07am11 U/LBelow low xdyrrd19-82SzpmnpebxDelaware County Hospital Ctr [id number] [address] [facility] 25874Dtcvvrs Aminotransferase (ALT/SGPT)May 15, 2025 7:18am May 15, 2025 8:07am6 U/LBelow low normal7-52[facility] [id number] [address] [facility] [address]Xmylzatb PhosphataseOct2024 7:18amOctober 2024 8:07am46 U/K67-418XqxqfiggoDelaware County Hospital Ctr [id number] [address] [facility] [address]Qillsasuode LevelOctober 2024 7:18amOctober 2024 8:01xa884 mg/dLAbove high afidoh310-522Nbjd less than 200 mg/dl low riskChol 201-239 mg/dl borderline riskChol 240 mg/dl and greater high riskDelaware County Hospital Ctr [id number] [address] [facility] [address]TIW CholesterolOctober 2024 7:18amOctober 2024 8:07am57 mg/hT50-41PFB CHOL ATP-III CLASSIFICATION Cardiovascular RiskHDL > or equal to 60 mg/dL LOWHDL < 40 mg/dL HIGHDelaware County Hospital Ctr [id number] [address] [facility] [address]Osegypumumxbr LevelOctober 2024 7:18amOctober 2024 8:95fs548 mg/dL0-149TRIG ATP III CLASSIFICATIONTRIG less than 150 mg/dL NormalTRIG 150-199 mg/dL Borderline highTRIG 200-500 mg/dL High TRIG greater than 500 mg/dL Very highStandard traceable to the Center for Disease Conrtrol and Prevention (CDC) test method.[facility] [id number] [address] [facility] [address]UTC Cholesterol, CalculatedOctober 2024 7:18amOctober 2024 8:52am587 mg/dLAbove high normal0-100LDL ATP III CLASSIFICATIONLDL less than 100 mg/dL OptimalLDL 100-129 mg/dL Near or above agrhgdoFGO682-286 mg/dL Borderline highLDL 160-189 mg/dL HighLDL greater than 189 mg/dL Very high [facility] [id number] [address] [facility] [address]WRLD CholesterolOctober 2024 7:18amOctober 2024 8:07am23 mg/dLDelaware County Hospital Ctr [id number] [address] [facility] [address]Lirhezwikhq/HDL RatioOctober 2024 7:18amOctober 2024 8:07am3.8<5.0[facility] [id number] [address] [place] [address] 39829Dlck ThyroxineOctober 2024 7:18amOctober 2024 8:25am0.82 ng/dL0.61-1.12[facility] [id number] [address] [facility] [address]Vtbfneh Stimulating Hormone 3rd GenOctober 2024 7:18am May 15, 2025 8:21am0.96 u[iU]/mL0.45-5.33[facility] [id number] [address] [place] [address] 05166Ermqiuni Creatinine Clearance (ChemOctober 2024 7:18am May 15, 2025 8:07amN/AFMiddletown Hospital Ctr [id number] [address] [place] [address] 84863Nggjfrrgzb L4zKpkpwgo 2024 7:18amOctober 2024 10:14am5.7 %Above high normal4.3-5.6Increased risk for diabetes: 5.7 - 6.4diabetes: >6.4glycemic control for adults with diabetes: <7.0[facility] [id number] [address] [place] [address] 35839Cpslnvieu Average GlucoseOctober 2024 7:18amOctuofl health - [facility] 2024 10:62qq215 mg/dLDelaware County Hospital Ctr [id number] [address] [place], [place] [address] Diagnostic Imaging Reports Author Cristiano Ortiz [facility] SystemReport Date/TimeDecember 2024 8:20pm [facility] Main [place] [id number] XRay Report Signed Patient: Darling Ohara MR#: [id number] : 1980 Acct:[id number] Age/Sex: 45 / F ADM Date: 5 Loc: XD Room: Type: [facility] Attending Dr: Félix Mendiola MD Copies to: Félix Mendiola MD~ Ordering Provider: Félix Mendiola MD Date of Service: 06/30/25 XR/XR lumbar spine 6V w bending: M70.62 - Trochanteric bursitis, left hip XR lumbar spine 6V w bending 06/30/2025 3:50 PM SIGNS AND SYMPTOMS: Fall, pain radiating to left hip PROTOCOLS: Frontal, lateral, and flexion-extension views of the lumbar spine COMPARISON: 09/17/2024 FINDINGS: There is 8 mm of anterolisthesis of L5 upon S1 without pathologic movement on flexion or extension.There is no fracture or destructive lesion. There is moderate to severe disc height loss at L5-S1. Facet degenerative changes are present at L3-L4, L4-5, and L5-S1. The sacrum and sacroiliac joints are normal. XR/XR lumbar spine 6V w bending IMPRESSION: There is 8 mm of anterolisthesis of L5 upon S1 without pathologic movement on flexion or extension.This is slightly worse when compared to the prior study. Additional degenerative changes are noted as above. Impression dictated by: Cristiano Ortiz M.D. 06/30/2025 8:20 PM Dictation Location: RADIO-PC-17 Transcribed By: [facility] 06/30/252019 Dictated By: Cristiano Ortiz II, MD 06/30/252016 Signed By: <Electronically signed by Cristiano Ortiz II, MD in [place]> 06/30/252019 Vital Signs Vital Reading Result Reference Range Collection Date/Time Height 72 [in_i] May 20, 2025 7:30orCzaytx086.96 kgOctober 2024 7:04amHeart Rate91 /rbz35-198Daabyks 2024 7:04amRespiratory rate16 /gok37-39Jchludv 2024 7:04amOxygen saturation by Pulse owhrlagf68 %95-100October 2024 7:04amBP Touyvvtf169 mm[Hg]100-140October 2024 7:04amBP Vvtrezofx50 mm[Hg] 60-100October 2024 7:04amBMI (Body Mass Index)30.7 kg/z7Qznzxtp 2024 7:19coJehmgt50 [in_i]June 30, 2025 2:77rmNanajs675.80 kgDecember 2024 2:31pmBMI (Body Mass Index)31.6 kg/x8Tzvnjiik 2024 2:31pm Advance Directives Advance Directive Response Recorded Date/ Time Advance Directives No March 2:21pm Insurance Providers Guarantor Darling Santorooff Address [facility] [address] [place] [id number] Info.Home Phone: Coverage Status Update:2025 Payer Group Member ID Coverage Type Subscriber Relationship to Subscriber Effective Date Expiration Date Yana Medicaid Id: [id number] L Loroff Id: [id number] [address] [facility] [address] Home Phone: Email: Declined [id number] Encounters Encounter Location(s) Arrival/Admit Date Discharge/Departure Date Discharge/Departure Disposition Provider(s) Departed Clinical -Lab [facility] May 15, 2025 8:06am May 15, 2025 8:07am Discharged to home care or self care (routine discharge) Agusto Gamez DO Departed Physician/ Provider Office Visit -[facility] May 20, 2025 7:54am May 20, 2025 8:49am Discharged to home care or self care (routine discharge) Agusto Gamez DO Departed Physician/ Provider Office Visit -[facility] June 30, 2025 2:18pm June 30, 2025 3:28pm Discharged to home care or self care (routine discharge) Félix Mendiola MD Departed Clinical -[facility] June 30, 2025 3:14pm June 30, 2025 3:15pm Discharged to home care or self care (routine discharge) Félix Mendiola MD Recent Diagnosis Onset Date Admit Date Bilateral foot pain Unknown April 7:54am Hypothyroidism Unknown May 20 7:54am Spondylolisthesis, lumbar region Unknown June 30, 2025 2:18pm Trochanteric bursitis, left hip Unknown June 30, 2025 2:18pm Assessments Diagnosis Onset Date Resolution Status Admit Date Bilateral foot pain acuteOctober 2024 7:54amHypothyroidismacuteOctober 2024 7:54am Spondylolisthesis, lumbar regionacuteDecember 2024 2:18pmTrochanteric bursitis, left hipacuteDecember 2024 2:18pm Plan of Treatment Author Tammi [facility] CenterAuthoredOctober 2024 11:36amPatient presented with complaints of pain and discomfort in both of her feet. Said the pain in her back is now affecting her feet and her left hip. She does have a spot on each foot which I did examine. In my personal opinion, I think they look like plantar warts but patient states she consulted with Dr. Kent in the past who did not think that they were warts. It has become very painful for her when she is walking and patient states she will actually use the outside of her foot more instead of putting weight fully on her feet. She is asking for a second opinion so referral was placed to podiatry to see Dr. Rudd. Labs were drawn on 05/15/25 and reviewed with patient in great detail. Review of blood work reveals no signs of anemia, leukemia, or infection. Liver, kidney, and thyroid function are normal. Cholesterol levels have increased slightly but patient also admits to not eating the healthiest the past few months. She was working 2 jobs over the summer and said there were nights when she would just stop for fast food because it was convenient. She also accredits that not eating the healthiest has caused her to gain weight. I am confident if she starts monitoring her diet more closely and increases her water intake that she will be able to get the weight off to a level where she is happy and that her cholesterol numbers will improve as well. Patient's current A1c is 5.7 which was the same at her last office visit. We did discuss how she is right on that prediabetes line but again I think her A1c will decrease with diet and increasing her fluid intake. The above note written by Tammi Kaba MA, acting as human recorder, note dictated by Dr. Peter Lozano. Author Félix Mendiola [facility] 20[facility] 3:04pmI independently reviewed the MRI of the lumbar spine and the plain x-ray of the lumbar spine and the report patient has a large canal and very large foramen L5-S1 with a spondylolisthesis of about 6 mm she indeed may have some pain but has no true radiculopathy. She seems to be a little bit better with her injections she has multiple issues including a significant left trochanteric bursitis which needs an injection. She also has had a lot of plantar issues which are being addressed. I will see her back again in August with a dynamic back x-ray. Future Tests Future scheduled test information is unavailable Pending Tests Pending diagnostic test information is unavailable Future Visits Future appointment information is unavailable Future Procedures Procedure Name Ordered Date Scheduled Date Thyroid Stimulating Hormone May 20, 2025 7 :39am 6 Months Future Medications Future medication information is unavailable Patient Instructions Patient instructions are unavailable
--- OUTSIDE RECORDS SUMMARY | 2025-07-08 08:15 | XMS_ITS | Patient Health Record ---
Author Organization [facility] Address [address] [place] [address] [place] [address] Care Team Providers Care Orchestra Leader Name Role Phone Guillermo Lozano DO Primary Care Provider UnavailDylan Zaragoza Unavailable [phone] Reason For Referral No Information Problems Problem Type SNOMED Code ICD Code Onset Dates Problem Status W/U Status Risk Notes Problem Plantar wart (54956164) Plantar wart (078 .12) ActiveconfirmedProblemPain in limb (14871498)Pain in soft tissues of limb (729.5)Activeconfirmed Plan Of Treatment No Information Medical (General) History Medical History History ICD Code asthma fractured jawSurgical History Surgery Date(Month/Year) jaw
--- OUTSIDE RECORDS SUMMARY | 2025-07-08 08:15 | XMS_ITS | Clinical Summary ---
Author Organization [facility] Address [address] [place] [address] Care Team Providers Care Waste Paper Hammermill Operator Name Role Phone Peter Lozano Agusto HOOVER Primary Care Provider [phone] Allergies Active AllergyReactionsCriticalityNoted DateCommentsIndomethacinSwelling 05/10/2018 Medications MedicationSigDispense [...] knee11/12/2017 Social History Tobacco UseTypesPacks/DayYears UsedDateSmoking Tobacco: AoevjiOazczbcgki9Uroz: 2006Smokeless Tobacco: Never Comments:Smoked 1 pack a wee k, quit in 2005, can't remember start date Alcohol UseStandard Drinks/WeekCommentsYes0 (1 standard drink = 0.6 oz pure alcohol)occArea Deprivation IndexAnswerDate RecordedNational Score (1-100), lower number is lower riskNot on file06/30/2020State Score (1-10), lower number is lower riskNot on file06/30/2020Data from: https://www.neighborhoodatlas.medicine.[facility].edu/. Last address used for calculationNot on file06/30/2020CommentsNoSex and Gender Information ValueDate RecordedSex Assigned at BirthNot on fileLegal YfhScidsq07/02/2016 3:38 PM EDTGender IdentityNot on fileSexual OrientationNot on file Last Filed Vital Signs Vital SignReadingTime TakenCommentsBlood Qhvpkrtj879/5503 1:28 PM EDT Fxysl0654 1:28 PM DMBNdslgmwgppr39.5 ??C (97.7 ??F)10/13/2021 1:28 PM EDTRespiratory Rate--Oxygen Zrantlrbwu19%10/13/2021 1:28 PM EDTInhaled Oxygen Concentration--Celcem493.2 kg (254 lb)10/13/2021 1:28 PM NOMEnrepq537.9 cm (6') 10/13/2021 1:28 PM EDTBody Mass Index34.45010/13/2021 1:28 PM EDT Plan of Treatment Health MaintenanceDue DateLast DoneCommentsAnxiety Onwhrqbtj38/26/2000Depression Drxgecplz43/26/2000HIV Vlabeorus67/26/2000Hepatitis C Hyshghqjq75/26/2000 Hepatitis B Vaccine (1 of 3 - 19+ 3-dose series)2001Cervical Cancer Zsyddvteg51/26/2003HPV Vaccine (1 - 3-dose SCDM series)2009Mammogram Jxqhfaaqe37/26/2022Covid-19 Vaccine ( - 2024- season)2025Influenza Vaccine (#1)2025DTaP,Tdap,Td Vaccine (2 - Td or Tdap) Insurance Care Teams Team MemberRelationshipSpecialtyStart DateEnd Date Peter Lozano DO [address] [place] [address] PCP - GeneralFamily Medicine11/22/15
--- OUTSIDE RECORDS SUMMARY | 2025-07-08 08:15 | XMS_ITS | Encounter Summary ---
Author Organization [facility] Address [address] [place] [address] Care Team Providers Care Legal Word Processor Name Role Phone Peter Lozano DO Primary Care Provider [phone] Encounter Details DateTypeDepartmentCare Team (Latest Contact Info)Fdxeucwjuqt58/04/2025amboo flowsheet [facility] [address] [place] [address] Luis Miguel Frausto, DPM FACFAS [address] [place] [address] Social History Tobacco UseTypesPacks/DayYears UsedDateSmoking Tobacco: FormerCigarettesQuit: 06/22/2006Smokeless Tobacco: Never Comments:Quit smoking 10 yea rs ago Alcohol UseStandard Drinks/WeekCommentsNot Currently0 (1 standard drink = 0.6 oz pure alcohol)caffeine 1-2 cups/dayCommentsUnknownSex and Gender InformationValueDate RecordedSex Assigned at OgiidXajeam13/29/2023 8:37 AM EDT Legal QkgHhlpre56/15/2023 7:07 PM EDTGender YliiwneyChdgxt39/29/2023 8:37 AM EDT Sexual ZxnlcfwjdzgYjdmiagf58/29/2023 8:37 AM EDTdocumented as of this encounter Plan of Treatment Not on file documented as of this encounter Visit Diagnoses Not on filedocumented in this encounter Care Teams Team MemberRelationshipSpecialtyStart DateEnd Date Peter Lozano DO [address] [place] [address] [facility] - General01/25/23documented as of this encounter
--- OUTSIDE RECORDS SUMMARY | 2025-07-08 08:15 | XMS_ITS | Clinical Summary ---
Author Organization [facility] Address [address] [place] [address] Care Team Providers Care Senior Environmental Engineer Name Role Phone Peter Lozano DO Primary Care Provider [phone] Allergies Active AllergyReactionsCriticalityNoted DateCommentsBenzonatateGI intolerance 01/25/20238899FyovhprlacfuEfljzqic53/19/2018 Medications MedicationSigDispense QuantityRefillsLast FilledStart DateEnd DateStatus omeprazole (PriLOSEC) [address] capsule TAKE 1 CAPSULE BY MOUTH EVERY DAY 30 MINUTES BEFORE MORNING MEAL12/19/2022ctive Mary Lou 0.25-35 MG-MCG tablet Take 1 tablet by mouth in the morning.11/11/2022ctive ibuprofen 800 MG tablet TAKE 1 TABLET BY MOUTH THREE TIMES A DAY WITH FOOD OR MILK VFLJFK1910/20/2022 Active albuterol HFA (Proventil HFA) 90 mcg/act inhaler every 4 (four) hours.Active Multiple Vitamin (multivitamin) tablet Take 1 tablet by mouth in the morning.Active traMADol (Ultram) 50 MG tablet TAKE 1 TABLET BY MOUTH FOUR TIMES A DAY IXKVZB2606/08/2023ctive levothyroxine (Synthroid, Levoxyl) 88 MCG tablet TAKE 1 TABLET BY MOUTH EVERY DAY IN THE MORNING ON EMPTY STOMACH FOR 90 DAYS 09/11/2023ctive HYDROcodone-acetaminophen (Stratton) 5-325 MG tablet TAKE 1 TABLET BY MOUTH EVERY 4-6 HOURS NEEDED FOR PAIN FOR 7 DAYS12/31/2023 Active Active Problems ProblemNoted DateDiagnosed DateSebaceous cyst09/10/2024Ventral hernia without obstruction or ybhialcr86/18/2024eriumbilical abdominal pain4Breast cyst, left3Abnormal findings on diagnostic imaging of wurfnr6001/25/2023 Cyst of left okcfgz9001/25/2023yst of right rkxgtf0101/25/2023Other chronic pain 3Peroneal yoxbictvyt43/06/2023Second branchial cleft cyst01/25/2023 Umbilical hernia without obstruction and without /06/2023Pain in right foot11/26/2017Chronic pain of right knee11/12/2017 Encounters DateTypeDepartmentCare RxrbPwddfehqbif50/04/2025 1:30 PM ESTOffice Visit [facility] [address] [place] [phone] Dolce, Luis Miguel R, DPM FACFAS Plantar verruca (Primary Dx); Neoplasm of uncertain behavior of skin; Pain in left foot06/25/2025amboo flowsheet [facility] [address] [place] [address] Dolce, Luis Miguel R, DPM FACFAS 06/04/2025 1:30 PM ESTOffice Visit [facility] [address] [place] [address] Dolce, Luis Miguel R, DPM FACFAS Neoplasm of uncertain behavior of skin (Primary Dx); Plantar verruca; Pain in left foot; Pain in right foot06/04/2025amboo flowsheet [facility] [address] [place] [address] Dolce, Luis Miguel R, DPM FACFAS from Last 3 Months Immunizations ImmunizationAdministration DatesNext LzcZfaq9802/18/2018 Family History Medical HistoryRelationNameCommentsUterine cancerMotherHypertensionOtherThyroid diseaseOtherBreast cancerNeg HxColon cancerNeg HxOvarian cancerNeg HxPancreatic cancerNeg LeKdtxnjyzJahoLzntfyQbhwxmkjUbtcnqb4Fdfku8ZsnvufFypgiYdhmphKsknzDlpcp Social History Tobacco UseTypesPacks/DayYears UsedDateSmoking Tobacco: FormerCigarettesQuit: 06/22/2006Smokeless Tobacco: Never Tobacco Cessation:Counseling Given: Yes Comments:Quit smoking 10 years ago Alcohol UseStandard Drinks/WeekCommentsNot Currently0 (1 standard drink = 0.6 oz pure alcohol)caffeine 1-2 cups/dayCommentsUnknownSex and Gender InformationValueDate RecordedSex Assigned at NzllqJhbieo90/29/2023 8:37 AM EDT Legal NbxFuyrpy17/15/2023 7:07 PM EDTGender AccflieiUkclpn73/29/2023 8:37 AM EDT Sexual OlymekhgqrxRgpecjfv66/29/2023 8:37 AM EDT Last Filed Vital Signs Vital SignReadingTime TakenCommentsBlood Dxugueli446/7506/25/2025 1:32 PM EST Isvfz843906/25/2025 1:32 PM ESTTemperature--Respiratory Rate--Oxygen Saturation-- Inhaled Oxygen Concentration--Baglnc724 kg (230 lb)06/25/2025 1:32 PM ESTHeight 182.9 cm (6')06/25/2025 1:32 PM ESTBody Mass Index31.19108/26/2024 1:32 PM EST Plan of Treatment Not on file Insurance Care Teams Team MemberRelationshipSpecialtyStart DateEnd Date Peter Lozano DO [address] [place] [phone] PCP - General01/25/23
--- OUTSIDE RECORDS SUMMARY | 2025-07-08 08:15 | XMS_ITS | Patient Health Record ---
Author Organization [facility] [place] Address [address] [place] [address] Care Team Providers Care Histology Aide Name Role Phone Peter Lozano DO Primary Care Provider Unavailabl e Allergies No Known Allergies Reason For Referral No Information Medications Medication SIG (Take, Route, Frequency, Duration) Notes Start Date End Date Status Esomeprazole Magnesium 40 MG 1 capsule Orally On ce a day ActiveLevothyroxine Sodium 88 MCG1 tablet in the morning on an empty stomach Orally Once a dayActivemethylPREDNISolone 4 MGas directed Juxdpb144Active Meloxicam 15 MGTAKE 1 TABLET BY MOUTH [...] Risk Notes Problem Deformity of lower leg (81660418 0) Other specified acquired deformities of right lower leg (M21.861) ActiveconfirmedProblemAcquired deformity of left lower leg (disorder) (625355537010486)Other specified acquired deformities of left lower leg (M21.862)ActiveconfirmedProblemContracture of joint of right ankle (disorder) (408233727718000)Contracture, right ankle (M24.571)ActiveconfirmedProblem Contracture of joint of left ankle (disorder) (108473874920876)Contracture, left ankle (M24.572)ActiveconfirmedProblemLumbar radiculopathy (633148071) Radiculopathy, lumbar region (M54.16)ActiveconfirmedProblemLeft side sciatica (489285028940969)Sciatica, left side (M54.32)ActiveconfirmedProblemPlantar fascial fibromatosis (64432893)Plantar fascial fibromatosis (M72.2)Active confirmed Plan Of Treatment Pending Test Test Name Order Date MRI Ankle LT w/o contrast (Hind Foot) XR Foot 3 Views Bilateral 03/25/2024 XR foot KG min 3V 03/26/2024 Insurance Providers Payer Name Payer Address Payer Phone Subscriber Number Group Number Insured Name Patient Relationship to Insured Coverage Start Date Coverage End Date [employer] [place] [employer] [address] [place] [address] [id number] Haroon Ohara - patient is the insured Medical (General) History Medical History History ICD Code GERD fatty liverthyroid issuesSurgical History Surgery Date(Month/Year) jaw broke and 4 wisdom teeth extracted branchial cleft cyst removed on neckhernia bxrcycv1491repla breast cyst removed hernia tdkhjdi2355
--- OUTSIDE RECORDS SUMMARY | 2025-07-08 08:15 | XMS_ITS | Clinical Summary ---
Author Organization [facility] Address [address] [place] [address] Phone Care Team Providers Care Fryer Line Helper Name Role Phone Guillermo Lozano Esteban HOOVER Primary Care Provider [phone] Social History Tobacco UseTypesPacks/DayYears UsedDateSmoking Tobacco: Never Assessed CommentsUnknownSex and Gender InformationValueDate RecordedSex Assigned at Not on fileLegal HsyGghfkk88/25/2022 11:36 AM ESTGender IdentityNot on file Sexual OrientationNot on file Plan of Treatment Health MaintenanceDue DateLast DoneCommentsHIV Uikjjfynu1982Lipid Panel 1982MMR Vaccines (1 of 1 - Standard series)1983Hepatitis C Screening 2000Hepatitis B Vaccines (1 of 3 - 19+ 3-dose series)2001HPV/Cotest 2003DTaP/Tdap/Td Vaccines (1 - Tdap)2004HPV Vaccines (1 - 3-dose standard series)04/17/20093186Lcvxmantk86/26/2022ervical Cancer Hychiqwlz05/09/2023 Pap Smear/03/2020Yearly Adult Dwrfsvbu13/, 02/28/2021, 12/30/2019Influenza Vaccine (#1)2025OVID-19 Vaccine ( - [...] Team MemberRelationshipSpecialtyStart DateEnd Date Guillermo Lozano DO [facility]11/30/15
--- NOTE | 2025-07-08 08:36 | PM.CN ---
Consult Note: HPI Data of Consult Patient: known to practice within the last 3 years Requesting Physician: Anastasiya Thomas NP Primary Care Provider: Peter Lozano, DO Consult Narrative Reason for consult: left GTB Pain Narrative: Darling Babin a pleasant 45 year old female with chronic low back pain > 12 months unresponsive to > 6 weeks of PT/HEP, heat, ice, tylenol, NSAIDs. Pt recently evaluated by Dr Mendiola who recommends left GTB injection under c-arm for her left greater trochanteric bursitis. Pain today 2-4/10 soreness increasing to 6/10 with standing, walking, bending, lifting, activity. notes relief with meloxicam 7.5mg bid prn pain and baclofen 10mg BID PRN pain/spasms. denies side effects. temporarily stopping meloxicam to utilize motrin for menstrual cramps. cc:: CC: Anastasiya Thomas NP Review of Systems ROS Musculoskeletal Reports: extremity pain PFSH PFSH Medical History Simple cyst of breast ?N60.09 - Solitary cyst of unspecified breast (ICD-10) Sebaceous cyst ?L72.3 - Sebaceous cyst (ICD-10) Low back pain ?M54.50 - Low back pain, unspecified (ICD-10) Hypothyroid ?E03.9 - Hypothyroidism, unspecified (ICD-10) Asthma ?J45.909 - Unspecified asthma, uncomplicated (ICD-10) Surgical History S/P hernia repair ?Z98.890 - Other specified postprocedural states (ICD-10) ?Z87.19 - Personal history of other diseases of the digestive system (ICD-10) History of mandibular surgery ?Z98.890 - Other specified postprocedural states (ICD-10) Meds Home Medications and Allergies Home Medications ?Medication ?Instructions ?Recorded ?Confirmed ?Type esomeprazole magnesium 40 mg 40 mg PO DAILY 06/23/24 04/27/25 History capsule,delayed release esteban control 06/23/24 History multivitamin-ferrous 1 tab PO DAILY 06/23/24 04/27/25 History fumarate-folic acid 18 mg-400 mcg tablet (Centrum Women) fd-qk-kafkum 68 mcg DFE-caff 95 ea PO 06/23/24 History vo-sfnc-wfcil-tea oral effer pwdr pack (ATP Ignite) albuterol sulfate 90 mcg/actuation 2 puff inhalation PRN shortness of 09/01/24 History aerosol inhaler breath or wheezing baclofen 10 mg tablet 10 mg PO BID PRN muscle spasm #60 09/11/24 04/27/25 Rx tabs meloxicam 7.5 mg tablet 7.5 mg PO BID PRN pain #60 tabs 09/11/24 04/27/25 Rx diazepam 10 mg tablet (Valium) 10 mg PO Q8H PRN sedation 12/08/24 04/27/25 History hydrocodone 5 mg-acetaminophen 325 1 tab PO QID PRN pain #28 tabs 12/17/24 04/27/25 Rx mg tablet meloxicam 7.5 mg tablet 7.5 mg PO BID #60 tabs 05/27/25 Rx Allergies Allergy/AdvReac Type Severity Reaction Status Date / Time benzonatate AdvReac Mild Diarrhea Verified 04/27/25 08:41 indomethacin AdvReac Mild swelling Verified 04/27/25 08:41 Exam Constitutional Documenting provider has reviewed patient's vital signs: yes Common normals: no apparent distress, oriented x3 and alert General appearance: cooperative HENMT Common normals: normocephalic, hearing grossly normal bilaterally and moist oral mucous membranes Head and scalp: normocephalic Eye Common normals: PERRL Pupil: PERRL Neck & C-Spine Common normals: full ROM General: normal visual inspection Chest Common normals: inspection of chest normal Respiratory Common normals: normal respiratory effort, no retractions and no use of accessory muscles Back & Pelvis Lumbar spine/lower back: ROM limited, pain with ROM and lumbar spinal tenderness Other: moderate to severe pain with palpation over left GTB strength 5/5 in BLE sensation intact BLE Neuro Common normals: oriented x3 Sensorium/orientation: alert Psych Common normals: mental status grossly normal, thought process normal, cooperative, affect normal, speech normal and activity/motor behavior normal Speech: normal speech Thought process: normal thought process Results Additional Findings Additional findings: If on a controlled substance or opioids, I have checked an [place]AR[place] report on this patient and there are no aberrancies noted in the prescribing history.??If on a controlled substance or opioid a drug screen was completed and reviewed within the last year, and if there has not been a drug screen completed we ordered one today to monitor higher risk, state monitored pain medication use. As part of providing excellent, safe, comprehensive care, the following was completed at our patient's visit: 1. A medication reconciliation and review to ensure accurate knowledge of current/active medications, including asking our patients to inform us about any pysw-jdg-dejcbdy medications or herbal remedies/nutritional supplements/alternative remedies. 2. A review to specifically ensure our patients have had annual screening for screening for depression, screening for tobacco use, and screening for unhealthy alcohol use. For concerning screenings had a discussion with the patient, provided patient education, and recommended follow-up with primary care provider when appropriate. If patient noted with a risk of falling, they received education on strength, gait, and balance training to prevent future risk of falling. Portions of this note may have been carried over from the previous visit and updated as appropriate. Please note this office utilizes paper charting in addition to the electronic medical record. A list of current medications, vitals, and PMH is available there as the clinical staff outside of myself do not have access to [employer] charting during the clinic day operations. As part of providing quality comprehensive care the current medications, vitals, and PMH were reviewed in the paper chart. Assessment and Plan Assessment and Plan (1) Greater trochanteric bursitis of left hip: (2) Myalgia, other site: Plan The patient has had over 3 months of moderate to severe low back and left thigh pain with functional impairment and inadequate response to conservative care including NSAIDS (unless there are contraindication such as concurrent blood thinners), multiple oral or topical pain medications, and home exercise program/physical therapy.? Patient has completed >6 weeks of guided home exercise program and/or formal physical therapy program without relief of their symptoms.? The Oswestry Disability Index was completed, and the patient scored a 4%.? proceed with left GTB injection under fluoroscopy as directed by BELINDA Mendiola continue meloxicam 7.5mg bid prn pain, take with food continue baclofen 10mg bid prn pain/spasms continue PT as tolerated, continue HEP as tolerated f/u 1-2 weeks after injection
== END 2025-07-08 08:12 | disposition home or self-care (01) ==
LOC: PM 08:12
PROVIDERS: PCP Family Medicine; Visit Provider Nurse Practitioner
DX: M70.62 Trochanteric bursitis, left hip (principal); M79.18 Myalgia, other site
CPT/HCPCS: G0463

== ENCOUNTER 2025-07-20 08:38 | Day surgery (SDC) | payer OTHER, SELFPAY ==
[2025-07-20 08:41] VITALS: BP 132/84; PULSE 68; TEMP 36; O2SAT 98
--- OUTSIDE RECORDS SUMMARY | 2025-07-20 08:41 | XMS_ITS | Patient Health Record ---
Author Organization [facility] [place] Address [address] [place] [address] Care Team Providers Care Informatics Application Analyst Name Role Phone Peter Lozano DO Primary Care Provider Unavailabl e Allergies No Known Allergies Reason For Referral No Information Medications Medication SIG (Take, Route, Frequency, Duration) Notes Start Date End Date Status Esomeprazole Magnesium 40 MG 1 capsule Orally On ce a day ActiveLevothyroxine Sodium 88 MCG1 tablet in the morning on an empty stomach Orally Once a dayActivemethylPREDNISolone 4 MGas directed Nzmijs974Active Meloxicam 15 MGTAKE 1 TABLET BY MOUTH [...] Risk Notes Problem Deformity of lower leg (92357657 0) Other specified acquired deformities of right lower leg (M21.861) ActiveconfirmedProblemAcquired deformity of left lower leg (disorder) (165542845906874)Other specified acquired deformities of left lower leg (M21.862)ActiveconfirmedProblemContracture of joint of right ankle (disorder) (176309115583840)Contracture, right ankle (M24.571)ActiveconfirmedProblem Contracture of joint of left ankle (disorder) (704885226828286)Contracture, left ankle (M24.572)ActiveconfirmedProblemLumbar radiculopathy (796775638) Radiculopathy, lumbar region (M54.16)ActiveconfirmedProblemLeft side sciatica (807313973182890)Sciatica, left side (M54.32)ActiveconfirmedProblemPlantar fascial fibromatosis (95942123)Plantar fascial fibromatosis (M72.2)Active confirmed Plan Of Treatment Pending Test Test Name Order Date MRI Ankle LT w/o contrast (Hind Foot) XR Foot 3 Views Bilateral 03/25/2024 XR foot KG min 3V 03/26/2024 Insurance Providers Payer Name Payer Address Payer Phone Subscriber Number Group Number Insured Name Patient Relationship to Insured Coverage Start Date Coverage End Date [employer] [place] [employer] [address] [place] [address] [id number] Haroon Ohara - patient is the insured Medical (General) History Medical History History ICD Code GERD fatty liverthyroid issuesSurgical History Surgery Date(Month/Year) jaw broke and 4 wisdom teeth extracted branchial cleft cyst removed on neckhernia trzibzl6761jeyxf breast cyst removed hernia ndbknvi4796
--- OUTSIDE RECORDS SUMMARY | 2025-07-20 08:41 | XMS_ITS | Clinical Summary ---
Author Organization [facility] Address [address] [place] [address] Care Team Providers Care Senior Brand Manager Name Role Phone Peter Lozano Agusto HOOVER Primary Care Provider [phone] Allergies Active AllergyReactionsCriticalityNoted DateCommentsIndomethacinSwelling 05/10/2018 Medications MedicationSigDispense [...] knee11/12/2017 Social History Tobacco UseTypesPacks/DayYears UsedDateSmoking Tobacco: RzodgnXkccktdpmu5Nvko: 2006Smokeless Tobacco: Never Comments:Smoked 1 pack a wee k, quit in 2005, can't remember start date Alcohol UseStandard Drinks/WeekCommentsYes0 (1 standard drink = 0.6 oz pure alcohol)occArea Deprivation IndexAnswerDate RecordedNational Score (1-100), lower number is lower riskNot on file06/30/2020State Score (1-10), lower number is lower riskNot on file06/30/2020Data from: https://www.neighborhoodatlas.medicine.[facility].edu/. Last address used for calculationNot on file06/30/2020CommentsNoSex and Gender Information ValueDate RecordedSex Assigned at BirthNot on fileLegal KkcUffpqh93/02/2016 3:38 PM EDTGender IdentityNot on fileSexual OrientationNot on file Last Filed Vital Signs Vital SignReadingTime TakenCommentsBlood Aquzqdjm720/5503 1:28 PM EDT Lztri1783 1:28 PM QFCZlucbghglmh24.5 ??C (97.7 ??F)10/13/2021 1:28 PM EDTRespiratory Rate--Oxygen Qvzvvupvln86%10/13/2021 1:28 PM EDTInhaled Oxygen Concentration--Tztlbi465.2 kg (254 lb)10/13/2021 1:28 PM OQTCrqsfk295.9 cm (6') 10/13/2021 1:28 PM EDTBody Mass Index34.45010/13/2021 1:28 PM EDT Plan of Treatment Health MaintenanceDue DateLast DoneCommentsAnxiety Tpkswvbrv75/26/2000Depression Esijjywjm60/26/2000HIV Vmxcxrdno28/26/2000Hepatitis C Nxncniwvc74/26/2000 Hepatitis B Vaccine (1 of 3 - 19+ 3-dose series)2001Cervical Cancer Mpngwhsiu45/26/2003HPV Vaccine (1 - 3-dose SCDM series)2009Mammogram Ysvjvftam50/26/2022Covid-19 Vaccine ( - 2024- season)2025Influenza Vaccine (#1)2025DTaP,Tdap,Td Vaccine (2 - Td or Tdap) Insurance Care Teams Team MemberRelationshipSpecialtyStart DateEnd Date Peter Lozano DO [address] [place] [address] PCP - GeneralFamily Medicine11/22/15
--- OUTSIDE RECORDS SUMMARY | 2025-07-20 08:41 | XMS_ITS | Clinical Summary ---
Author Organization [facility] Address [address] [place] [address] Phone Care Team Providers Care Feather Separator Name Role Phone Guillermo Lozano Esteban HOOVER Primary Care Provider [phone] Social History Tobacco UseTypesPacks/DayYears UsedDateSmoking Tobacco: Never Assessed CommentsUnknownSex and Gender InformationValueDate RecordedSex Assigned at Not on fileLegal NtoEsxqmc63/25/2022 11:36 AM ESTGender IdentityNot on file Sexual OrientationNot on file Plan of Treatment Health MaintenanceDue DateLast DoneCommentsHIV Mqlllbwwz1982Lipid Panel 1982MMR Vaccines (1 of 1 - Standard series)1983Hepatitis C Screening 2000Hepatitis B Vaccines (1 of 3 - 19+ 3-dose series)2001HPV/Cotest 2003DTaP/Tdap/Td Vaccines (1 - Tdap)2004HPV Vaccines (1 - 3-dose standard series)04/17/20092190Ojluohhpa87/26/2022Cervical Cancer Mbrfhstbj04/09/2023 Pap Smear/03/2020Yearly Adult Ddketpkw34/, 02/28/2021, 12/30/2019COVID-19 Vaccine ( - 2024- season)2025Influenza Vaccine (#1)2025Zoster Vaccines (1 of 2)2032HIB VaccinesAged OutNo longer eligible based on patient's [...]
--- OUTSIDE RECORDS SUMMARY | 2025-07-20 08:41 | XMS_ITS | Clinical Summary ---
Author Organization [facility] Address [address] [place] [address] Care Team Providers Care Senior Marketing Associate Name Role Phone Peter Lozano DO Primary Care Provider [phone] Allergies Active AllergyReactionsCriticalityNoted DateCommentsBenzonatateGI intolerance 01/25/20239751TofrxjdmozvxZacaymmy10/19/2018 Medications MedicationSigDispense QuantityRefillsLast FilledStart DateEnd DateStatus omeprazole (PriLOSEC) [address] capsule TAKE 1 CAPSULE BY MOUTH EVERY DAY 30 MINUTES BEFORE MORNING MEAL12/19/2022ctive Mary Lou 0.25-35 MG-MCG tablet Take 1 tablet by mouth in the morning.11/11/2022ctive ibuprofen 800 MG tablet TAKE 1 TABLET BY MOUTH THREE TIMES A DAY WITH FOOD OR MILK NBZQFK7310/20/2022 Active albuterol HFA (Proventil HFA) 90 mcg/act inhaler every 4 (four) hours.Active Multiple Vitamin (multivitamin) tablet Take 1 tablet by mouth in the morning.Active traMADol (Ultram) 50 MG tablet TAKE 1 TABLET BY MOUTH FOUR TIMES A DAY NKEAPQ0806/08/2023ctive levothyroxine (Synthroid, Levoxyl) 88 MCG tablet TAKE 1 TABLET BY MOUTH EVERY DAY IN THE MORNING ON EMPTY STOMACH FOR 90 DAYS 09/11/2023ctive HYDROcodone-acetaminophen ([place]) 5-325 MG tablet TAKE 1 TABLET BY MOUTH EVERY 4-6 HOURS NEEDED FOR PAIN FOR 7 DAYS12/31/2023 Active Active Problems ProblemNoted DateDiagnosed DateSebaceous cyst09/10/2024Ventral hernia without obstruction or xjsgdwam28/18/2024eriumbilical abdominal pain4Breast cyst, left3Abnormal findings on diagnostic imaging of kcngkz8701/25/2023 Cyst of left ncyapz3001/25/2023yst of right xlbbtq0101/25/2023Other chronic pain 3Peroneal tojxrsxhzz39/06/2023Second branchial cleft cyst01/25/2023 Umbilical hernia without obstruction and without aywtineg27/06/2023Pain in right foot11/26/2017Chronic pain of right knee11/12/2017 Encounters DateTypeDepartmentCare GmbxXmkztxezzri10/04/2025 1:30 PM ESTOffice Visit [facility] [address] [place] [phone] Dolce, Luis Miguel R, DPM FACFAS Plantar verruca (Primary Dx); Neoplasm of uncertain behavior of skin; Pain in left foot06/25/2025amboo flowsheet [facility] [address] [place] [address] Dolce, Lui Smiguel R, DPM FACFAS 06/04/2025 1:30 PM ESTOffice Visit [facility] [address] [place] [phone] Dolce, Luis Miguel R, DPM FACFAS Neoplasm of uncertain behavior of skin (Primary Dx); Plantar verruca; Pain in left foot; Pain in right foot06/04/2025amboo flowsheet [facility] [address] [place] [phone] Dolce, Luis Miguel R, DPM FACFAS from Last 3 Months Immunizations ImmunizationAdministration DatesNext LakTort5402/18/2018 Family History Medical HistoryRelationNameCommentsUterine cancerMotherHypertensionOtherThyroid diseaseOtherBreast cancerNeg HxColon cancerNeg HxOvarian cancerNeg HxPancreatic cancerNeg QlYyrchyouHcwoGksqwsYilqlkxmAphddqb2Npciq3GposnjFtzybVddfjqAkpurIbjdt Social History Tobacco UseTypesPacks/DayYears UsedDateSmoking Tobacco: FormerCigarettesQuit: 06/22/2006Smokeless Tobacco: Never Tobacco Cessation:Counseling Given: Yes Comments:Quit smoking 10 years ago Alcohol UseStandard Drinks/WeekCommentsNot Currently0 (1 standard drink = 0.6 oz pure alcohol)caffeine 1-2 cups/dayCommentsUnknownSex and Gender InformationValueDate RecordedSex Assigned at SxvjkDntjgq77/29/2023 8:37 AM EDT Legal HryNhcktx39/15/2023 7:07 PM EDTGender PosuflmbIjqztf82/29/2023 8:37 AM EDT Sexual QidgoyajsrdKasarscq09/29/2023 8:37 AM EDT Last Filed Vital Signs Vital SignReadingTime TakenCommentsBlood Mksahqvi250/7506/25/2025 1:32 PM EST Aczty989706/25/2025 1:32 PM ESTTemperature--Respiratory Rate--Oxygen Saturation-- Inhaled Oxygen Concentration--Gybglb175 kg (230 lb)06/25/2025 1:32 PM ESTHeight 182.9 cm (6')06/25/2025 1:32 PM ESTBody Mass Index31.19108/26/2024 1:32 PM EST Plan of Treatment Not on file Insurance Care Teams Team MemberRelationshipSpecialtyStart DateEnd Date Peter Lozano DO [address] [place] [phone] PCP - General01/25/23
--- OUTSIDE RECORDS SUMMARY | 2025-07-20 08:41 | XMS_ITS | Patient Health Record ---
Author Organization [facility] Address [address] [place] [address] [place] [address] Care Team Providers Care Infection Control Coordinator Name Role Phone Guillermo Lozano DO Primary Care Provider UnavailDylan Zaragoza Unavailable [phone] Reason For Referral No Information Problems Problem Type SNOMED Code ICD Code Onset Dates Problem Status W/U Status Risk Notes Problem Plantar wart (53996991) Plantar wart (078 .12) ActiveconfirmedProblemPain in limb (40271538)Pain in soft tissues of limb (729.5)Activeconfirmed Plan Of Treatment No Information Medical (General) History Medical History History ICD Code asthma fractured jawSurgical History Surgery Date(Month/Year) jaw
--- OUTSIDE RECORDS SUMMARY | 2025-07-20 08:45 | XMS_ITS | CCD ---
Author Organization [facility] Providers Care Arts Manager Name Role Phone DR PETER AHUMADA Primary Care Unavailable DR CHETAN RUDD Admitting Unavailable DR CHETAN RUDD Consulting Unavailable DR CHETAN RUDD Attending Unavailable Luz Marina Hernandez Consulting Unavailable Peter Ahumada DO Primary Care Provider Peter Ahumada Unavailable Acs, DO Peter Primary Care Provider [phone] Acs, DO Peter Attending Provider Kuns, DO Peter Primary Care Provider [phone] Kuns, DO Peter Attending Provider [phone] Kuns, DO Peter Primary Care Provider Kuns, DO Peter Attending Provider Rolando, [facility]- [place] Emergency Provider Severo ([facility]), [place] DELIA Orellana Attending Provider [phone] Acs, DO Peter Primary Care Provider Kuns, DO Peter Attending Provider Kuns, DO Peter Primary Care Provider Kuns, DO Peter Attending Provider Kuns, DO Peter Primary Care Provider Kuns, DO Peter Attending Provider Kuns, DO Peter Primary Care Provider [phone] Acs, DO Peter Referring Provider Self, Referral Attending Provider Unavailable MD Igor Rudd Emergency Provider Kuns, DO Peter Attending Provider Itzkowitz, DO Alber Attending Provider DO Chas Meza Attending Provider [phone] Kuns, DO Peter Primary Care Provider Kuns DO, Peter P Primary Care Provider Kuns, DO Peter Primary Care Provider [phone] Kuns, DO Peter Attending Provider JEAN CARLOS Martinez Attending Provider Peter Ahumada MD Primary Care Provider Blake HOOVER, Peter Primary Care Provider Blake HOOVER, Peter Attending Provider [phone] Robert Martinez DPM Attending Provider [phone] Blake DO, Peter Primary Care Provider Robert Martinez DPM Attending Provider [phone] Blake DO, Peter Primary Care Provider [phone] Robert Martinez DPM Attending Provider [phone] Itzkowialicia DO, Alber Attending Provider ITZKOWITZ, ALBER H Attending Unavailable ITZKOWITZ, ALBER H Attending Unavailable ITZKOWITZ, ALBER H Attending Unavailable ITZKOWITZ, ALBER H Attending Unavailable ITZKOWITZ, ALBER H Attending Unavailable ITZKOWITZ, ALBER H Attending Unavailable RAHUL CASTILLO Attending Unavailable ROBERT MARTINEZ Referring Unavailable Peter Ahumada DO Primary Care Provider Peter Ahumada DO Attending Provider [phone] Giedraitis , Andrius Vytautas Attending Unavailable Giedraitis [...] Primary Care Unavailable Blake, Peter Attending Unavailable Kunshiar, Peter Admitting Unavailable KunsPeter Primary Care Unavailable Peter Ahumada Attending Unavailable Kuns, Peter Admitting Unavailable Kuns Peter Primary Care Unavailable Allergies Allergy ClassificationReported Allergen(s)Allergy TypeDate of OnsetReaction(s) Facility (15 sources)IndomethacinDrug [id number] (16 sources)benzonatateDrug Hrbslag60-50-2470zgywdnbzRwblgflhgWay[facility] (6 sources)benzonatateDrug Zkcanwk28-59-8462[facility] Work Phone: (1 source)benzonatateDrug Hsquttz90-88-5758UwzacrxuoGu[facility] (1 source)IndomethacinDrug Bnuywao21-98-1189WlnjmyxmaGuernsey Memorial Hospital Repository Medications Current Medications MedicationDrug Class(es)DatesSig (Normalized)Sig (Original)[id number] 200 actuat albuterol 0.09 mg/actuat metered dose inhaler (20 sources)beta2-Adrenergic AgonistStart: 57-82-5642ltdl 2 puff(s) by inhalation every four hours as neededAlbuterol Sulfate (Proair Hfa) 90 mcg/actuation HFA aerosol inhaler Active 2 PUFF INHALATION Every 4 hours December 19, 2023 12:00am FreeTextSi puffs as needed Inhalation every 4 hrs; Note: Source Status: RefillPRN; Refills: 1; Provider: Blake Liz Complies with drug therapyStart: 04-24-2017 End: 80-88-9070qpkh 1 puff(s) by inhalation every four to six hours as needed for wheezingAlbuterol Sulfate (Proventil Hfa) 90 mcg/actuation Hfa Aerosol Inhaler Discontinued 1 PUFF INHALATION EVERY 4-6 HOURS as needed for Shortness Of Breath Or Wheezing April 24, 2017 12:00am November 2:03pmStart: 41-74-5080pbhu 2 puff(s) by inhalation every four hours as neededProAir HFA 108 (90 Base) MCG/ACT 2 puffs as needed Inhalation every 4 hrs PRN Mar, Activealbuterol HFA (Proventil HFA) 90 mcg/act inhaler every 4 (four) hours. Activebaclofen 10 mg oral tablet (3 sources)gamma-Aminobutyric Acid-ergic AgonistStart: 37-55-2670posf 1 tablet by mouth twice daily as neededBaclofen 10 mg tablet Active 10 MG PO Twice daily as needed December 08, 2024 12:00am Complies with drug therapyesomeprazole 40 mg delayed release oral capsule (14 sources)Proton Pump InhibitorStart: 84-39-1170goea 1 capsule by mouth once dailyEsomeprazole Magnesium (Nexium) 40 mg capsule,delayed release(DR/EC) Active 40 MG PO Daily 90 3 June 10, 2024 1:00am Complies with drug therapyStart: 03-14-2024 End: 91-83-5756vmkr 1 capsule by mouth twice dailyEsomeprazole Magnesium (Nexium) 40 mg capsule,delayed release(DR/EC) Discontinued 40 MG PO Twice daily 180 1 March 14, 2024 12:00am June 10, 2024 4:43pmNorgestimate-Ethinyl Estradiol (20 sources)Progestin, EstrogenStart: 08-30-2872huec 1 tablet by mouth once daily at bedtimeNorgestimate-Ethinyl Estradiol 0.25-35 mg-mcg tablet Active 1 TAB PO Daily at bedtime December 19, 2023 12:00am Complies with drug therapyStart: 53-97-8107kdob 1 tablet by mouth once daily at bedtimeStart: 47-47-6863lgyg 1 tablet by mouth once daily at bedtimeNorgestimate-Ethinyl Estradiol 0.25-35 mg- mcg tablet Active 1 TAB PO Daily at bedtime December 19, 2023 12:00amStart: 77-59-4905bhyx 1 tablet by mouth once daily at bedtimeNorgestimate-Ethinyl Estradiol 0.25-35 mg-mcg tablet Active 1 TAB PO Daily at bedtime December 18, 2023 11:00pmStart: 47-92-0075cfvm 1 tablet by mouth once daily at bedtime Norgestimate-Ethinyl Estradiol Active 1 TAB PO Daily at bedtime December 19, 2023 12:00amStart: 19-15-8426jhlk 1 tablet by mouth once dailyNorgestimate-Ethinyl Estradiol Active 1 TAB PO Daily December 19, 2023 12:00amStart: 84-84-9553kkya 1 tablet by mouth in the morningMili 0.25-35 MG-MCG tablet Take 1 tablet by mouth in the morning. 11/11/2022 ActiveStart: 02-08-2021 End: 14-44-0709uwcv 1 tablet by mouth once dailyNorgestimate-Ethinyl Estradiol (Mary Lou) 0.25-35 mg-mcg tablet Discontinued 1 TAB PO Daily February 07, 2021 11:00pm December 19, 2023 1:04pmStart: 02-08-2021 End: 56-73-3892rlcc 1 tablet by mouth once dailyNorgestimate-Ethinyl Estradiol (Mary Lou) 0.25-35 mg-mcg tablet Discontinued 1 TAB PO Daily February 08, 2021 12:00am December 19, 2023 2:04pmStart: 16-91-4402sjjy 1 tablet by mouth once daily Norgestimate-Ethinyl Estradiol (Mary Lou) 0.25-35 mg-mcg tablet Active 1 TAB PO Daily February 07, 2021 11:00pmStart: 31-60-3508qrvg 1 tablet by mouth once daily Norgestimate-Ethinyl Estradiol (Mary Lou) 0.25-35 mg-mcg tablet Active 1 TAB PO Daily February 08, 2021 12:00amStart: 93-05-0110eubi 1 tablet by mouth once daily MARY LOU 0.25-35 mg-mcg per tablet Take 1 tablet by mouth once daily. 09/15/2020 ActiveStart: 45-58-3460pwks 1 tablet by mouth once dailyMILI 0.25-35 mg-mcg per tablet Take 1 tablet by mouth once daily. 0 09/15/2020 ActiveStart: 04-24-2017 End: 04-92-1134wcdp 1 tablet by mouth once dailyNorgestimate-Ethinyl Estradiol (Sprintec (28)) 0.25-35 mg-mcg Tablet Discontinued 1 TAB PO Daily April 23, 2017 11:00pm February 08, 2021 9:37amStart: 04-24-2017 End: 56-75-1607mjwl 1 tablet by mouth once dailyNorgestimate-Ethinyl Estradiol (Sprintec (28)) 0.25-35 mg-mcg Tablet Discontinued 1 TAB PO Daily April 24, 2017 12:00am February 08, 2021 10:37amtake 1 tablet by mouth every twenty-four hoursNorgestimate-Eth Estradiol 0.25-35 MG-MCG 1 tablet Orally Once a day Active Comment on above:Take 1 tablet by mouth once daily.ibuprofen 800 mg oral tablet (20 sources)Nonsteroidal Anti-inflammatory DrugStart: 23-89-6197aynz 1 tablet by mouth three times daily as needed for painIbuprofen 800 mg tablet Active 800 MG PO Three times daily as needed for pain 90 2 May 20, 2025 12:00am Complies with drug therapyStart: 10-20-2022 End: 62-61-2875trmh 1 tablet by mouth three times dailyIbuprofen 800 mg tablet Discontinued 800 MG PO Three times daily December 19, 2023 12:00am December 27, 2023 2:17pmStart: 03-12-2020 End: 58-74-2850pcla 1 tablet by mouth every eight hours as needed for pain Ibuprofen 600 mg tablet Discontinued 600 MG PO Q8H as needed for pain 20 0 March 12, 2020 12:00am December 17, 2023 7:36amStart: 03-26-2018 End: 37-58-6259Rptcbordh 800 mg Tablet Discontinued 800 MG PO As Directed as needed for Pain March 26, 2018 12:00am March 12, 2020 8:22pmmeloxicam 7.5 mg oral tablet (3 sources)Nonsteroidal Anti-inflammatory DrugStart: 76-45-9249rdzh 1 tablet by mouth twice daily as neededMeloxicam 7.5 mg tablet Active 7.5 MG PO Twice daily as needed December 08, 2024 12:00am Complies withdrug therapyMultiple Vitamin (multivitamin) tablet (6 sources)take 1 tablet by mouth in the morningMultiple Vitamin (multivitamin) tablet Take 1 tablet by mouth in the morning. ActiveMultivitamin (Daily Multi- Vitamin) tablet (20 sources)Start: 31-62-2272caqh 1 tablet by mouth once daily in the morning Multivitamin (Daily Multi-Vitamin) tablet Active 1 TAB PO Every morning December 19, 2023 12:00am Complies with drug therapyStart: 87-24-5141bfik 1 tablet by mouth once daily in the morningStart: 37-92-8921ypqs 1 tablet by mouth once daily in the morningMultivitamin (Daily Multi-Vitamin) tablet Active 1 TAB PO Every morning December 18, 2023 11:00pmStart: 44-10-7196okco 1 tablet by mouth once daily in the morningMultivitamin (Daily Multi-Vitamin) tablet Active 1 TAB PO Every morning December 19, 2023 12:00amStart: 70-42-2196epsj 1 tablet by mouth once dailyMultivitamin (Daily Multi-Vitamin) tablet Active 1 TAB PO Daily December 19, 2023 12:00amMultivitamin preparation (11 sources)take 1 tablet by mouth once dailyMulti Vitamin - 1 tablet Orally Once a day ActiveMultivitamin With Minerals (Hair,Skin And Nails) tablet (20 sources)Start: 41-41-5562klth 1 tablet by mouth once daily in the morning Multivitamin With Minerals (Hair,Skin And Nails) tablet Active 1 TAB PO Every morning March 06, 2024 2:25pm Complies with drug therapyStart: 80-36-2719zcay 1 tablet by mouth once daily in the morningStart: 73-88-4287ilgl 1 tablet by mouth once daily in the morningMultivitamin With Minerals (Hair,Skin And Nails) tablet Active 1 TAB PO Every morning March 06, 2024 1:25pmStart: 03-06-2024 take 1 tablet by mouth once daily in the morningMultivitamin With Minerals (Hair,Skin And Nails) tablet Active 1 TAB PO Every morning March 06, 2024 2:25pmStart: 01-15-2024 End: 39-89-9397otju 1 tablet by mouth once daily in the morningMultivitamin With Minerals (Hair,Skin And Nails) tablet Discontinued 1 TAB PO Every morning January 14, 2024 11:00pm March 06, 2024 1:25pmStart: 01-15-2024 End: 33-75-3170hbwt 1 tablet by mouth once daily in the morningMultivitamin With Minerals (Hair,Skin And Nails) tablet Discontinued 1 TAB PO Every morning January 15, 2024 12:00am March 06, 2024 2:25pmStart: 86-00-5306lxbm 1 tablet by mouth once daily in the morningMultivitamin With Minerals (Hair,Skin And Nails) tablet Active 1 TAB PO Every morning January 15, 2024 12:00amProAir HFA 108 (90 Base) MCG/ACT (11 sources)Start: 76-43-9223gdzv 2 puff(s) by inhalation every four hours as neededProAir HFA 108 (90 Base) MCG/ACT 2 puffs as needed Inhalation every 4 hrs for 90 days PRN Mar, ActiveStart: 07-67-1150vaom 2 puff(s) by inhalation every four hours [...] oral tablet (20 sources)Opioid AgonistStart: 01-29-2024 End: 50-57-5583lnbg 1 tablet by mouth every four to six hours as needed for pain Acetaminophen-Codeine 300-30 mg tablet Discontinued 1 TAB PO EVERY 4-6 HOURS as needed for pain 20 5 0 January 29, 2024 12:00am February 13, 2024 3:12pm Umbilical hernia Umbilical hernia without obstruction or gangreneStart: 03-26-2018 End: 27-94-6881yrzm 1 tablet by mouth every six hours as needed for pain Acetaminophen-Codeine (Tylenol-Codeine #3) 300-30 mg tablet Discontinued 1 - 2 TAB PO Q6H as neededfor pain 30 5 0 March 26, 2018 12:00am March 30, 2018 12:00am March 31, 2018 12:02amDiffuse cystic mastopathy of right breastacetaminophen 325 mg / HYDROcodone bitartrate 5 mg oral tablet (20 sources)Opioid AgonistStart: 12-31-2023 End: 85-17-0341xktj 1 tablet by mouth every four to six hours as needed for pain Hydrocodone-Acetaminophen 5-325 mg tablet Discontinued 1 TAB PO EVERY 4-6 HOURS as needed for Pain 28 7 0 December 31, 2023 February 13, 2024 3:12pm Contusion of multiple sites Unspecified multiple injuries, initial encounterStart: 12-19-2023 End: 20-82-8087wpbk 1 tablet by mouth every four to six hours as needed for pain Hydrocodone-Acetaminophen 5-325 mg tablet Discontinued 1 TAB PO EVERY 4-6 HOURS as needed for Pain 28 10 0 December 19, 2023 December 19, 2023 9:39am Contusion of multiple sites Unspecified multiple injuries, initial encounterStart: 12-19-2023 End: 63-95-9454bzbf 1 tablet by mouth every four to six hours as needed for pain Hydrocodone-Acetaminophen 5-325 mg tablet Discontinued 1 TAB PO EVERY 4-6 HOURS as needed for Pain 28 7 0 December 19, 2023 December 19, 2023 12:03pm Contusion of multiple sites Unspecified multiple injuries, initial encounterStart: 12-17-2023 End: 33-07-3695xzmt 1 tablet by mouth every four to six hours as needed for pain Hydrocodone-Acetaminophen 5-325 mg tablet Discontinued 1 TAB PO EVERY 4-6 HOURS as needed for Pain 28 7 0 December 19, 2023 December 31, 2023 7:42am Contusion of multiple sites Unspecified multiple injuries, initial encounterStart: 04-24-2017 End: 97-36-6275kill 2 tablets by mouth every four to six hours as needed for painHydrocodone-Acetaminophen ([place]) 5-325 mg tablet Discontinued 2 TAB PO EVERY 4-6 HOURS as needed for pain 30 0 April 24, 2017 12:00am March 26, 2018 9:04amacetaminophen 325 mg / oxyCODONE hydrochloride 5 mg oral tablet (20 sources)Opioid AgonistStart: 11-01-2022 End: 00-82-1485iola 1 tablet by mouth every six hours as needed for pain Oxycodone-Acetaminophen 5-325 mg tablet Discontinued 1 TAB PO Q6H as needed for pain 12 3 0 November 01, 2022 December 17, 2023 7:36am Epiploic appendagitis Other specified diseases of intestineAlbuterol Sulfate (Proventil Hfa) 90 mcg/actuation Hfa Aerosol Inhaler (20 sources)Start: 04-24-2017 End: 41-76-3263nbbg 1 puff(s) by inhalation every four to six hours as needed for wheezingAlbuterol Sulfate (Proventil Hfa) 90 mcg/actuation Hfa Aerosol Inhaler Discontinued 1 PUFF INHALATION EVERY 4-6 HOURS as needed for Shortness Of Breath Or Wheezing April 24, 2017 12:00am November 2:03pmStart: 04-24-2017 End: 84-67-1514dvmc 1 puff(s) by inhalation every four to six hours as needed for wheezingAlbuterol Sulfate (Proventil Hfa) 90 mcg/actuation Hfa Aerosol Inhaler Discontinued 1 PUFF INHALATION EVERY 4-6 HOURS as needed for Shortness Of Breath Or Wheezing April 23, 2017 11:00pm November 1:03pmStart: 04-24-2017 End: 85-32-8695wwyq 1 puff(s) by inhalation every four to six hoursAlbuterol Sulfate (Proventil Hfa) 90 mcg/actuation Hfa Aerosol Inhaler Discontinued 1 PUFF INHALATION EVERY 4-6 HOURS April 24, 2017 12:00am December 19, 2023 2:03pmStart: 13-12-7901rfxh 1 puff(s) by inhalation every four to six hoursAlbuterol Sulfate (Proventil Hfa) 90 mcg/actuation Hfa Aerosol Inhaler Active 1 PUFF INHALATION EVERY 4-6 HOURS April 23, 2017 11:00pmStart: 71-02-3706gllm 1 puff(s) by inhalation every four to six hoursAlbuterol Sulfate (Proventil Hfa) 90 mcg/actuation Hfa Aerosol Inhaler Active 1 PUFF INHALATION EVERY 4-6 HOURS April 24, 2017 12:00amazithromycin 250 mg oral tablet (20 sources)Macrolide AntimicrobialStart: 11-30-2023 End: 56-77-4177Owsneiimvodo (Zithromax) 250 mg tablet Discontinued 0 PO .COMPLEX 6 1 November 30, 2023 12:00am December 17, 2023 7:36am For 250 mg dose pack: take 500 mg today (day 1), then 250 mg for 4 days (days 2-5) POStart: 10-31-5502Htsbmwajt Z-Hill 250 MG 2 tablets on the first day, then 1 tablet daily for 4 days Orally Once a dayfor 5 day(s) May, Activebetamethasone 1 mg/ml topical cream (20 sources)CorticosteroidStart: 12-19-2023 End: 38-99-1922Fqvpvzvcxuehj Valerate 0.1 % cream Discontinued 1 APPLIC TOPICAL Twice daily December 19, 2023 12:00amJun2023 2:16pm FreeTextSi application Externally Twice a day; Note: Source Status: Taking; Refills: 0; Qty: 45 Gram; Provider: Blake Green PStart: 12-19-2023 End: 72-51-2100Nzjcbpuvpynul Valerate Discontinued 1 APPLIC TOPICAL Twice daily December 19, 2023 12:00am December 27, 2023 2:16pm FreeTextSi application Externally Twice a day; Note: Source Status: Taking; Refills: 0; Qty: 45 Gram; Provider: Blake Green PStart: 61-54-4682Esihoqssvbmsf Valerate 0.1 % 1 application Externally Twice a day Feb, ActiveStart: 03-21-2023 Betamethasone Valerate 0.1 % 1 application Externally Twice a day Feb, Activecephalexin 500 mg oral capsule (20 sources)Cephalosporin AntibacterialStart: 02-08-2021 End: 17-55-4913uvnd 1 capsule by mouth four times dailyCephalexin 500 mg capsule Discontinued 500 MG PO Four times daily 40 10 0 February 08, 2021 12:00am November 01, 2022 10:30amcholecalciferol 0.025 mg oral capsule (20 sources)Vitamin DStart: 12-19-2023 End: 27-32-8099ipqp 1 capsule by mouth once dailyCholecalciferol (Vitamin D3) 25 mcg (1,000 unit) capsule Discontinued 1 CAP PO Daily December 182:00am December 27, 2023 2:16pm FreeTextSi capsule Orally Once a day; Note: Source Status: Taking; Provider: Blake Green ( )diclofenac sodium 75 mg delayed release oral tablet (20 sources)Nonsteroidal Anti-inflammatory DrugStart: 12-19-2023 End: 47-71-4703tknl 1 tablet by mouth twice dailyDiclofenac Sodium 75 mg tablet,delayed release (DR/EC) Discontinued 75 MG PO Twice daily December 19, 2023 12:00am December 27, 2023 2:17pmStart: 11-01-2022 End: 41-96-8777npgx 1 tablet by mouth twice daily as needed for painDiclofenac Sodium 75 mg tablet,delayed release (DR/EC) Discontinued 75 MG PO Twice daily as needed for pain November 01, 2022 12:00am December 17, 2023 7:36amStart: 07-01-2872Ewskryzw 2 % 2 pumps Externally Twice a day samples provided Feb, Activefurosemide 40 mg oral tablet (20 sources)Loop DiureticStart: 12-19-2023 End: 92-39-3645sdac 1 tablet by mouth once dailyFurosemide (Lasix) 40 mg tablet Discontinued 40 MG PO Daily December 19, 2023 12:00am December 27, 2023 2:17pm FreeTextSi tablet Orally Once a day; Note: Source Status: Continueprn; Provider: Blake Green PStart: 88-23-7361hdgt 1 tablet by mouth every twenty-four hoursLasix 40 MG 1 tablet Orally Once a day prn Oct, ActiveLactobacillus Combination No.4 (Probiotic) 3 billion cell Capsule (20 sources)Start: 04-24-2017 End: 77-71-8833zdzx 3 capsules by mouth once dailyLactobacillus Combination No.4 (Probiotic) 3 billion cell Capsule Discontinued 3000 MMU CELLS PO Daily April 23, 2017 11:00pm March 26, 2018 8:04amStart: 04-24-2017 End: 72-83-6128uxbp 3 capsules by mouth once dailyLactobacillus Combination No.4 (Probiotic) 3 billion cell Capsule Discontinued 3000 MMU CELLS PO Daily April 24, 2017 12:00am March 26, 2018 9:04amLactobacillus Combination No.9 (Adult 50 Plus Probiotic) 4 billion cell capsule (20 sources)Start: 12-19-2023 End: 55-54-8913Ojkmgavpxaefd Combination No.9 (Adult 50 Plus Probiotic) 4 billion cell capsule Discontinued PO 2023 11:00pm December 27, 2023 1:17pm Start: 12-19-2023 End: 86-96-6635Qbydwyildcrud Combination No.9 (Adult 50 Plus Probiotic) 4 billion cell capsule Discontinued PO 2023 12:00am December 27, 2023 2:17pm levothyroxine sodium 0.088 mg oral tablet (20 sources)l-ThyroxineStart: 09-11-2023 End: 74-43-0240oqtb 1 tablet by mouth once dailyLevothyroxine 88 mcg tablet Discontinued 88 MCG PO Daily 90 December 19, 2023 2:08pm January 1442:28pm Start: 68-92-7604ddti 1 tablet by mouth once daily in the morningSynthroid 88 MCG 1 tablet in the morning on an empty stomach Orally Once a day for 90 days *Dose change Feb, ActiveStart: 80-18-4629atku 1 tablet by mouth once daily in the morningSynthroid 88 MCG 1 tablet in the morning on an empty stomach Orally Once a day for 90 days *Dose change Feb, ActiveStart: 04-21-2018 take 1 tablet by mouth once dailylevothyroxine (SYNTHROID) 75 mcg tablet Take 75 mcg by mouth once daily. 1 04/21/2018 ActiveStart: 82-96-8498haoa 1 tablet by mouth every twenty-four hoursSynthroid 75 MCG 1 tablet Orally Once a day Feb, ActiveStart: 04-24-2017 End: 66-04-5745dddj 3 tablets by mouth once dailyLevothyroxine 25 mcg Tablet Discontinued 75 MCG PO Daily April 24, 2017 12:00am December 19, 2023 2:04pm Start: 04-24-2017 End: 02-99-4870boac 75 ug by mouth once dailyLevothyroxine Discontinued 75 MCG PO Daily April 24, 2017 12:00am December 19, 2023 2:04pmComment on above:Take 75 mcg by mouth once daily.meclizine hydrochloride 25 mg oral tablet (3 sources)AntiemeticStart: 12-08-2024 End: 46-51-3363rfet 1 tablet by mouth every six hours as neededMeclizine 25 mg tablet Discontinued 25 MG PO Every 6 hours as needed for motion sickness 30 December 08, 2024 12:00am May 20, 2025 8:08amomeprazole 40 mg delayed release oral capsule (20 sources)Proton Pump InhibitorStart: 03-31-2020 End: 38-35-1628mond 1 capsule by mouth once daily in [...] tablet (20 sources)Serotonin-3 Receptor AntagonistStart: 02-08-2021 End: 11-63-3556eanl 1 tablet by mouth every six hours as needed for nausea and vomitingOndansetron 4 mg tablet,disintegrating Discontinued 4 MG PO Q6H as needed for nausea and vomiting 14 February 08, 2021 12:00am November 01, 2022 10:30amphenazopyridine hydrochloride 200 mg oral tablet (20 sources)Start: 02-08-2021 End: 56-88-2840edgj 1 tablet by mouth three times daily as needed for pain Phenazopyridine (Pyridium) 200 mg tablet Discontinued 200 MG PO Three times daily as needed for pain 10 February 08, 2021 12:00am November 01, 2022 10:30am administer with a full glass of water with each mealmicroencapsulated potassium chloride 10 meq extended release oral tablet (20 sources)Start: 12-19-2023 End: 70-81-3537apgc 1 tablet by mouth once dailyPotassium Chloride 10 mEq tablet,ER particles/crystals Discontinued 10 MEQ PO Daily December 19, 2023 12:00am December 27, 2023 2:18pmStart: 28-68-2223ifgw 1 tablet by mouth once daily as neededK-Dur 10 meq 1 tablet orally daily prn Oct, ActivepredniSONE 20 mg oral tablet (20 sources)Start: 11-30-2023 End: 29-95-0213Doxsnodesl 20 mg tablet Discontinued 20 MG PO .COMPLEX 15 0 November 30, 2023 12:00am December 17, 2023 7:36am 20 mg orally BID X 5 DAYS, QD X 5 DAYS; Start: 92-91-0145awwq 1 tablet by mouth every twenty-four hourspredniSONE 20 MG 1 tablet Orally Once a day for 30 day(s) May, ActiveStart: 05-24-2023 predniSONE 20 MG 1 tablet by mouth twice a day for five days, then daily for five days Orally as directed May, ActivetraMADol hydrochloride 50 mg oral tablet (20 sources)Opioid AgonistStart: 06-08-2023 End: 39-21-5982Jkmdhnfm 50 mg tablet Discontinued 50 MG PO December 19, 2023 12:00am January 15, 2024 2:27pmStart: 75-55-8437lmmk 1 tablet by mouth every six hourstraMADol HCl 50 MG 1 tablet as needed Orally QID prn Jan, Active Problems Active Problems Problem ClassificationProblemDateDocumented DateEpisodic/ChronicAbdominal hernia (20 sources)Ventral hernia without obstruction or gangrene; Translations: [Umbilical hernia]Onset: 33-79-7012YwzaeerkQhraadimi pain (20 sources)Right upper quadrant pain; Translations: [Liver pain]Onset: 94-85-4594JhgfvujiTtnjc bronchitis (2 sources)Acute bronchitis, unspecifiedEpisodicAllergic reactions (17 sources)Hand eczema; Translations: [Dermatitis, unspecified]EpisodicAsthma (20 sources)Unspecified asthma, uncomplicated; Translations: [Asthma]Onset: [id number] mellitus without complication (20 sources)Hyperglycemia, unspecified; Translations: [Prediabetes]Onset: 27-04-7974QmdnflrhBwjwlijpe of lipid metabolism (20 sources)Hyperlipidemia; Translations: [Hyperlipidemia, unspecified]Onset: 10-17-2021 Resolved: 72-65-7187DswkrvgY Codes: Fall (20 sources)Fall on same level; Translations: [Fall on same level, unspecified, initial encounter]66-75-1351MayhmuryN Codes: Natural/environment (1 source)Bitten or stung by nonvenomous insect and other nonvenomous arthropods, initial encounterEpisodicEsophageal disorders (20 sources)Gastroesophageal reflux disease; Translations: [Gastro-esophageal reflux disease without esophagitis]Onset: 04-20-2021 Resolved: 71-84-4704WzqozuvDenyusym of upper limb (7 sources)Closed fracture of phalanx of little finger; Translations: [Fracture of unspecified phalanx of leftlittle finger, subsequent encounter for fracture with routine healing]66-70-1296NbunsumfAnihurzq of upper limb (20 sources)Elbow fracture; Translations: [Unspecified fracture of lower end of right humerus, initial encounter for closed fracture]68-41-3797Pzixssva Immunizations and screening for infectious disease (5 sources)Contact with and (suspected) exposure to other viral communicable diseases; Translations: [Exposureto viral disease]EpisodicMalaise and fatigue (6 sources)Asthenia; Translations: [Weakness]Onset: 10-17-2021 Resolved: 37-09-9503VhundybgMyexyeiis disorders (16 sources)Excessive and frequent menstruation; Translations: [Excessive and frequent menstruation with regular cycle]ChronicNeoplasms of unspecified nature or uncertain behavior (20 sources)Neoplastic disease of uncertain behavior; 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, unspecified]Onset: 10-17-2021 Resolved: 57-76-6233WdrjfkhpSishcpkufbxv breast conditions (20 sources)Fibrocystic disease of breast; Translations: [Diffuse cystic mastopathy of unspecified breast]50-89-4398VhsdoskLacabwhwvwra breast conditions (20 sources)Cyst of breast; Translations: [Solitary cyst of right breast]Onset: 537047-89-4008SnnhadsnAozxaumcist chest pain (20 sources)Chest pain; Translations: [Chest pain, unspecified]Onset: 10-17-2021 Resolved: 96-60-9974BymuvpbtYxha wounds of extremities (20 sources)Laceration of left knee; Translations: [Laceration without foreign body, left knee, initial encounter]80-21-4911VkgqknqtUjhgq aftercare (1 source)Other usp (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 therapy; Translations: [OTH PENITENTIARY CURRENT DRUG THERAPY]Onset: 17-83-9254AslsarviRmzzt aftercare (5 sources)Removal of sutures done; Translations: [...] [Sinus, fistula and cyst of branchial cleft]Onset: 653098-40-5466ItvunfzImbkk connective tissue disease (5 sources)Bilateral plantar fasciitis; Translations: [Plantar fascial fibromatosis]EpisodicOther connective tissue disease (4 sources)Foot pain; Translations: [Pain in right foot]48-97-7207NiikfmeoEdzpj connective tissue disease (4 sources)Pain in both feet; Translations: [Pain in right foot]06-10-2024 EpisodicOther gastrointestinal disorders (17 sources)Heartburn; Translations: [Heartburn]EpisodicOther gastrointestinal disorders (20 sources)Epiploic appendagitis; Translations: [Other specified diseases of intestine]96-66-9263YffcnrtjElmjl gastrointestinal disorders (1 source)Change in bowel habitEpisodicOther gastrointestinal disorders (3 sources)Diarrhea, unspecified; Translations: [Diarrhea]37-69-4840Fggevftt Other injuries and conditions due to external causes (20 sources)Contusion of multiple sites; Translations: [Unspecified multiple injuries, initial encounter]57-69-7035IizyzdjcMsial liver diseases (1 source)Other specified diseases of liver; Translations: [OTHER SPECIFIED DISEASES OF LIVER]Onset: 62-79-0156PsnanxpGrqdi liver diseases (20 sources)Steatosis of liver; Translations: [Fatty (change of) liver, not elsewhere classified]42-02-2044EzuqylvKtfdp liver diseases (17 sources)Lesion of liver; Translations: [Liver disease, unspecified]Chronic Other liver diseases (2 sources)Liver disease, unspecified; Translations: [Liver lesion K76.9]Onset: 04-20-2021 Resolved: 53-14-9606MjzcoccFxkcz liver diseases (1 source)Fatty (change of) liver, not elsewhere classified; Translations: [Other chronic nonalcoholic liver disease]43-54-9217DhpiqrwWrnwe lower respiratory disease (5 sources)Snoring; Translations: [Snoring]EpisodicOther lower respiratory disease (5 sources)Dyspnea; Translations: [Shortness of breath]EpisodicOther nervous system disorders (6 sources)Chronic pain; Translations: [Other chronic pain]Onset: 01-25-2023 89-98-1304NvfftezHayjx non-traumatic joint disorders (20 sources)Pain in right knee; Translations: [Pain in joint, lower leg]Onset: 608310-41-5667VokdlupaAiijp non-traumatic joint disorders (5 sources)Swollen ankle region; Translations: [Effusion, right ankle]Episodic Other non-traumatic joint disorders (5 sources)Effusion of joint of left ankle; Translations: [Effusion, left ankle] EpisodicOther non-traumatic joint disorders (1 source)Pain in left hipEpisodicOther non-traumatic joint disorders (20 sources)Pain in elbow; Translations: [Pain in right elbow]88-83-5750Wetvmxlu Other non-traumatic joint disorders (14 sources)Pain in right elbow; Translations: [Pain in joint, upper arm] 63-70-8254VeylhixlFwxrp nutritional; endocrine; and metabolic disorders (17 sources)Body mass index 30+ - obesity; Translations: [Body mass index (BMI) 31.0-31.9, adult]ChronicOther nutritional; endocrine; and metabolic disorders (1 source)Body mass index (BMI) 31.0-31.9, adult; Translations: [BMI 31.0- 31.9,adult Z68.31]Onset: 04-20-2021 Resolved: 50-68-8317CfxosstAjjog nutritional; endocrine; and metabolic disorders (5 sources)Weight gain; Translations: [Abnormal weight gain]EpisodicOther nutritional; endocrine; and metabolic disorders (5 sources)Overweight in adulthood with body mass index of 25 or more but less than 30; Translations: [Body mass index (BMI) 27.0-27.9, adult]09-09-2024 EpisodicOther nutritional; endocrine; and metabolic disorders (2 sources)Body mass index (BMI) 27.0-27.9, adult; Translations: [Body Mass Index 27.0-27.9, adult]92-73-2154WnkdlfhcIjxzb screening for suspected conditions (not mental disorders or infectious disease) (18 sources)Mammography abnormal; Translations: [Other abnormal and inconclusive findings on diagnostic imagingof breast]Onset: 63-02-8218UzzfecjjMrqqq skin disorders (5 sources)Mass of neck; Translations: [Localized swelling, mass and lump, neck] EpisodicOther skin disorders (17 sources)Epidermoid cyst; Translations: [Epidermal cyst]EpisodicOther skin disorders (4 sources)Senile hyperkeratosis; Translations: [Other seborrheic keratosis] EpisodicOther skin disorders (13 sources)Seborrheic keratosis; Translations: [Other seborrheic keratosis] EpisodicOther skin disorders (1 source)Other seborrheic keratosisEpisodicOther skin disorders (7 sources)Mass of body jednzjjbm51-95-1523MqljeursBttqd skin disorders (8 sources)Sebaceous cyst of skin; Translations: [Sebaceous cyst]Onset: 392856-72-6024CofhzpbkDmrlq upper respiratory disease (5 sources)Respiratory tract congestion; [...] dependence; Translations: [PERSONAL HISTORY OF NICOTINE DEPEND]Onset: 10-90-6257BlzayyqgIimjmpkferw; intervertebral disc disorders; other back problems (20 sources)Degeneration of lumbosacral intervertebral disc; Translations: [Other intervertebral disc degeneration, lumbosacral region]ChronicSpondylosis; intervertebral disc disorders; other back problems (2 sources)Radiculopathy, lumbar region; Translations: [Lumbosacral radiculopathy]EpisodicThyroid disorders (20 sources)Hypothyroidism; Translations: [Hypothyroidism, unspecified]Onset: 10-17-2021 Resolved: 11-84-8342TluianoYsyckhetwmpd (2 sources)M79.671 - Pain in right foot,M79.672 - Pain in left footUrinary tract infections (20 sources)Pyelonephritis; Translations: [Tubulo-interstitial nephritis, not specified as acute or chronic]84-10-6955Nxkcboys Past or Other Problems Problem ClassificationProblemDateDocumented DateEpisodic/ChronicOther connective tissue disease (9 sources)Pain in right foot; Translations: [Pain in right foot]Onset: 532108-36-6612MizpkrouPmpav connective tissue disease (1 source)Pain in left arm; Translations: [Arm pain, left M79.602]Onset: 04-20-2021 Resolved: 38-60-1753HfdvtywaAxsdl connective tissue disease (6 sources)Peroneal tendinitis; Translations: [Peroneal tendinitis, unspecified leg]Onset: 877947-31-1299CpiadfysKynpi connective tissue disease (2 sources)Pain in right foot; Translations: [Pain in limb]Onset: 05-19-2024 97-91-8322BkyqqezxLkfyo connective tissue disease (1 source)Plantar fascial fibromatosis; Translations: [Plantar fascial fibromatosis]Onset: 80-52-2107QophervaQvqbe skin disorders (1 source)Other hypertrophic disorders of the skinOnset: 10-17-2021 Resolved: 16-28-4591MojrhbjbRjfiw skin disorders (1 source)Sebaceous cyst; Translations: [Sebaceous cyst]Onset: 09-29-2024 Episodic Results Test NameValueInterpretationReference OjfncZyqwkvdlP0K with Estimated Average Gluon 90-54-7972Ahdplbb [Mass/Vol]117 mg/dLNoGood Hope Hospital [facility] Comment on above:Result Comment: PERFORMED BY: [facility] [address] [place] [address] PATHOLOGIST TRANSPORT TECH SAURABH JOHNSON M.D.Performed By: #### A1C WT eA, CBC, T4F, LIPID, CMP, TSH3 ####[id number] [place] [address] USAAlanine aminotransferase [Enzymatic activity/volume] in Serum or PlasmaOrdered By: Peter Ahumada on 75-65-4739CVB [Catalytic activity/Vol]6 U/LLow7-52Gu[facility] HospitalComment on above:Performed By: #### A1C WTH eA, CBC, T4F, LIPID, CMP, TSH3 ####[address] [address] USAAlbumin [Mass/volume] in Serum or Plasma by Bromocresol green (BCG) dye binding methoOrdered By: Peter Ahumada on 36-98-8412Aofgxnp BCG dye [Mass/Vol]3.9 g/dL3.5-5.7FKettering HealthAlkaline phosphatase [Enzymatic activity/volume] in Serum or PlasmaOrdered By: Peter Ahumada on 25-95-2023ZWB [Catalytic activity/Vol]46 U/L87-652BwnnbvxleGuernsey Memorial HospitalComment on above:Performed By: #### A1C WTH eA, CBC, T4F, LIPID, CMP, TSH3 ####[address] [address] USAAspartate aminotransferase [Enzymatic activity/volume] in Serum or PlasmaOrdered By: Peter Ahumada on 82-43-0087OGO [Catalytic activity/Vol]11 U/NQsw30-04DyibhohbkGuernsey Memorial HospitalComment on above:Performed By: #### A1C WTH eA, CBC, T4F, LIPID, CMP, TSH3 ####[facility] [id number] USABasophils [#/volume] in Blood by Automated countOrdered By: Peter Ahumada on 38-39-6382Sccegvanr (Bld) [#/Vol]0.1 10*3/uL0.0-0.2FKettering HealthComment on above:Result Comment: PERFORMED BY: [address] [address] [place] [address] PATHOLOGIST TRANSPORT TECH SAURABH JOHNSON M.D.Performed By: #### A1C WTH eA, CBC, T4F, LIPID, CMP, TSH3 #### [facility] [address] [place] [address] USABasophils/100 leukocytes in Blood by Automated count Ordered By: Peter Ahumada on 65-13-0429Rjwvsuaik/100 WBC (Bld)1.3 %.Gu[facility]sey Memorial HospitalComment on above:Performed By: #### A1C WTH eA, CBC, T4F, LIPID, CMP, TSH3 #### [facility] [address] [place] [address] USABilirubin.total [Mass/volume] in Serum or PlasmaOrdered By: Peter Ahumada on 14-15-7145Vwuhilxaq [Mass/Vol]0.4 mg/dL0.3-1.0Gu[facility] Memorial HospitalComment on above:Performed By: #### A1C WTH eA, CBC, T4F, LIPID, CMP, TSH3 ####[facility] [id number] USABlood estimated average glucose determination by estimation from glycated hemoglobinOrdered By: Peter Ahumada on 84-81-3884Yajfdbx glucose Estimated from glycated hemoglobin (Bld) [Mass/Vol]117 mg/dLGuernsey Memorial HospitalCalcium [Mass/volume] in Serum or PlasmaOrdered By: Peter Ahumada on 84-84-1850Rmgfgxw [Mass/Vol]9.0 mg/dL8.6-10.3[facility] Comment on above:Performed By: #### A1C WT eA, CBC, T4F, LIPID, CMP, TSH3 ####[facility] [place] [address] USACarbon dioxide, total [Moles/volume] in Serum or PlasmaOrdered By: Peter Ahumada on 57-10-0126AW9 [Moles/Vol]31.8 mmol/LHigh21.0-31.0Gu[facility] HospitalComment on above:Performed By: #### A1C WT eA, CBC, T4F, LIPID, CMP, TSH3 ####[address] [place] [address] [place] Chloride [Moles/volume] in Serum or PlasmaOrdered By: Peter Ahumada on 05-15-2025 Chloride [Moles/Vol]104 mmol/J09-120ZxuhfxrtnGuernsey Memorial HospitalComment on above:Performed By: #### A1C WT eA, CBC, T4F, LIPID, CMP, TSH3 ####[address] [address] USACholesterol [Mass/volume] in Serum or PlasmaOrdered By: Peter Ahumada on 93-30-8825Txtydyqmjmo [Mass/Vol]215 mg/rIDzvg936-515CsurhpmvgGuernsey Memorial HospitalComment on above: Chol less than 200 mg/dl low riskChol 201-239 mg/dl borderline riskChol 240 mg/dl and greater high riskResult Comment: Chol less than 200 mg/dl low risk Chol 201-239 mg/dl borderline risk Chol 240 mg/dl and greater high riskPerformed By: #### A1C WT eA, CBC, T4F, LIPID, CMP, TSH3 ####[address] [address] USACholesterol in HDL [Mass/volume] in Serum or PlasmaOrdered By: Peter Ahumada on 41-17-8097Drnwygmvlbh in HDL [Mass/Vol]57 mg/pG87-08JcihnpqkfGuernsey Memorial HospitalComment on above:HDL CHOL ATP-III CLASSIFICATION Cardiovascular RiskHDL > or equal to 60 mg/dL LOWHDL < 40 mg/dL HIGHResult Comment: HDL CHOL ATP-III CLASSIFICATION Cardiovascular Risk HDL > or equal to 60 mg/dL LOW HDL < 40 mg/dL HIGHPerformed By: #### A1C WTH eA, CBC, T4F, LIPID, CMP, TSH3 ####[facility] [address] [place] [address] [place] Cholesterol in LDL Calc [Mass/Vol]Ordered By: Peter Ahumada on 05-15-2025 Cholesterol in LDL [Mass/Vol]135 mg/dLHigh0-100[facility] Comment on above:LDL ATP III CLASSIFICATIONLDL less than 100 mg/dL OptimalLDL 100-129 mg/dL Near or above jxqypsfXMV094-195 mg/dL Borderline highLDL 160-189 mg/dL HighLDL greater than 189 mg/dL Very highCholesterol in VLDL Calc [Mass/Vol]Ordered By: Peter Ahumada on 08-23-5757Dnvqgjzhjik in VLDL [Mass/Vol]23 mg/dLGuernsey Memorial HospitalComplete Blood Count Auto Diffon 97-45-7718Fbid Corpuscular HGB Conc33.8 g/vGYocibt30.0-35.0The [facility] Physician GroupComment on above:Performed By: #### A1C WT eA, CBC, T4F, LIPID, CMP, TSH3 #### [facility] [address] [place] [address] USANRBC%0.1 /100{WBC}Normal0-0.5[facility] Comment on above:Performed By: #### A1C WT eA, CBC, T4F, LIPID, CMP, TSH3 #### [facility] [address] [place] [address] USAWhite Blood Count4.9 [CFU]/mLNormal3.8-11.6The [facility] Physician GroupComment on above:Performed By: #### A1C WTH eA, CBC, T4F, LIPID, CMP, TSH3 #### [facility] [address] [place] [address] USAComprehensive Metabolic Panelon 57-22-6069Xkdqwfd [Mass/Vol]3.9 g/dLNormal3.5-5.7The [facility] Physician GroupComment on above: Performed By: #### A1C WTH eA, CBC, T4F, LIPID, CMP, TSH3 ####[facility] [place] [address] USAGFR/1.73 sq M.predicted MDRD (S/P/Bld) [Vol rate/Area]mL/min/{1.73_m2}NormalThe [facility] Comment on above:Performed By: #### A1C WTH eA, CBC, T4F, LIPID, CMP, TSH3 ####[facility] [place] [address] [place] Creatinine [Mass/volume] in Serum or PlasmaOrdered By: Peter Ahumada on 05-15-2025 Creatinine [Mass/Vol]0.57 mg/dLLow0.60-1.20[facility] Comment on above:Performed By: #### A1C WTH eA, CBC, T4F, LIPID, CMP, TSH3 ####[facility] [place] [address] [place] Eosinophils [#/volume] in Blood by Automated countOrdered By: Peter Ahumada on 21-27-0141Qnhbzrmypdo (Bld) [#/Vol]0.1 10*3/uL0.0-0.45Gu[facility] Memorial HospitalComment on above:Performed By: #### A1C WTH eA, CBC, T4F, LIPID, CMP, TSH3 #### [facility] [address] [place] [address] USAEosinophils/100 leukocytes in Blood by Automated count Ordered By: Peter Ahumada on 50-53-3407Opbbkyneypq/100 WBC (Bld)1.9 %.[facility] HospitalComment on above:Performed By: #### A1C WTH eA, CBC, T4F, LIPID, CMP, TSH3 #### [facility] [address] [place] [address] USAErythrocyte distribution width [Ratio] by Automated count Ordered By: Peter Ahumada on 68-42-4409Iqyqxukxpyh distribution width (RBC) [Ratio] 13.5 %11.9-15.3FKettering HealthComment on above:Performed By: #### A1C WTH eA, CBC, T4F, LIPID, CMP, TSH3 #### [facility] [address] [place] [address] USAErythrocytes [#/volume] in Blood by Automated countOrdered By: Peter Ahumada on 31-36-6965JTK (Bld) [#/Vol]4.59 10*6/uL3.60-5.00Gu[facility] Memorial HospitalComment on above:Performed By: #### A1C WTH eA, CBC, T4F, LIPID, CMP, TSH3 #### [facility] [address] [place] [address] USAGlomerular filtration rate [Volume Rate/Area] in Serum, Plasma or Blood by CreatinineOrdered By: Peter Ahumada on 28-51-6725Bvovtnvwkn filtration rate [Volume Rate/Area] in Serum, Plasma or Blood by Creatinine> 60.0 mL/MinGuernsey Memorial HospitalGlucose [Mass/volume] in Serum or Plasma Ordered By: Peter Ahumada on 63-54-3296Sudsncc [Mass/Vol]94 mg/dT71-671DgpipdbfgGuernsey Memorial HospitalComment on above:ADA recommended reference rangeRandom Glucose [...] WTH eA, CBC, T4F, LIPID, CMP, TSH3 ####[facility] [address] [place] [address] USAHematocrit [Volume Fraction] of Blood by Automated countOrdered By: Peter Ahumada on 63-82-9891Uqkiooaziu (Bld) [Volume fraction]39.6 %34.0-46.4FKettering HealthComment on above:Performed By: #### A1C WTH eA, CBC, T4F, LIPID, CMP, TSH3 #### [facility] [address] [place] [address] USAHemoglobin A1c/Hemoglobin.total in BloodOrdered By: Peter Ahumada on 71-61-6400XyZ5m (Bld) [Mass fraction]5.7 %High4.3-5.6FKettering HealthComment on above:Increased risk for diabetes: 5.7 - 6.4diabetes: >6.4glycemic control for adults with diabetes: <7.0Result Comment: Increased risk for diabetes: 5.7 - 6.4 diabetes: >6.4 glycemic control for adults with diabetes: <7.0Performed By: #### A1C WTH eA, CBC, T4F, LIPID, CMP, TSH3 ####[facility] [address] [place] [address] USAHemoglobin [Mass/volume] in BloodOrdered By: Peter Ahumada on 15-47-7821Qgqcpzliym (Bld) [Mass/Vol]13.4 g/dL11.8-15.4FKettering HealthComment on above:Performed By: #### A1C WTH eA, CBC, T4F, LIPID, CMP, TSH3 #### [facility] [address] [place] [address] USALeukocytes [#/volume] corrected for nucleated erythrocytes in Blood by Automated counOrdered By: Peter Ahumada on 54-39-9689LTV corrected for nucl RBC Auto (Bld) [#/Vol]4.9 10*3/uL3.8-11.6FKettering Health Leukocytes [#/volume] in Blood by Automated countOrdered By: Peter Ahumada on 11-22-4956KKD (Bld) [#/Vol]4.9 10*3/uL3.8-11.6FK[facility]tering Health Comment on above:Performed By: #### A1C WTH eA, CBC, T4F, LIPID, CMP, TSH3 #### [facility] [address] [place] [address] USALipid Panelon 48-76-2422FHH Cholesterol,Toxujqsrdt359 mg/dLHigh0-100The [facility] Physician GroupComment on above:Result Comment: LDL ATP III CLASSIFICATION LDL less than 100 mg/dL Optimal LDL 100-129 mg/dL Near or above optimal LDL 130-159 mg/dL Borderline high LDL 160-189 mg/dL High LDL greater than 189 mg/dL Very highPerformed By: #### A1C WTH eA, CBC, T4F, LIPID, CMP, TSH3 ####[facility] [place] [address] USATriglyceride w/Brmkhu823 mg/dLNormal0-149[facility] Comment on above:Result Comment: TRIG ATP III CLASSIFICATION TRIG less than 150 mg/dL Normal TRIG 150-199 mg/dL Borderline high TRIG 200-500 mg/dL High TRIG greater than 500 mg/dL Very high Standard traceable to the Center for Disease Conrtrol and Prevention (CDC) test method.Performed By: #### A1C WTH eA, CBC, T4F, LIPID, CMP, TSH3 ####[id number] USAVLDL HWKNJYNFNMK52 mg/dLNormalThe [facility] Physician GroupComment on above: Performed By: #### A1C WTH eA, CBC, T4F, LIPID, CMP, TSH3 ####[facility] [place] [address] USALymphocytes [#/volume] in Blood by Automated countOrdered By: Peter Ahumada on 09-82-2692Xqxcnsqjagg (Bld) [#/Vol]1.7 10*3/uL1.00-4.8[facility] HospitalComment on above: Performed By: #### A1C WTH eA, CBC, T4F, LIPID, CMP, TSH3 #### [facility] [address] [place] [address] USALymphocytes/100 leukocytes in Blood by Automated count Ordered By: Peter Ahumada on 85-75-7503Pdmfheehnhy/100 WBC (Bld)33.8 %.[facility] HospitalComment on above:Performed By: #### A1C WTH eA, CBC, T4F, LIPID, CMP, TSH3 #### [facility] [address] [place] [address] USAMCH [Entitic mass] by Automated countOrdered By: Peter Ahumada on 58-53-6980VMF (RBC) [Entitic mass]29.2 pg24.7-34.3FKettering HealthComment on above:Performed By: #### A1C WTH eA, CBC, T4F, LIPID, CMP, TSH3 #### [facility] [address] [place] [address] USAHC Auto (RBC) [Mass/Vol]Ordered By: Peter Ahumada on 73-30-1776TTTD (RBC) [Mass/Vol]33.8 g/dL32.0-35.0Gu[facility] Memorial HospitalMCV [Entitic volume] by Automated countOrdered By: Peter Ahumada on 42-42-7130DQD (RBC) [Entitic vol]86.3 oG31-157NmhezjmjyGuernsey Memorial Hospital Comment on above:Performed By: #### A1C WTH eA, CBC, T4F, LIPID, CMP, TSH3 #### [facility] [address] [place] [address] USAMonocytes [#/volume] in Blood by Automated countOrdered By: Peter Ahumada on 15-01-9536Eclwnorxn (Bld) [#/Vol]0.4 10*3/uL0.0-0.8Gu[facility] Memorial HospitalComment on above:Performed By: #### A1C WTH eA, CBC, T4F, LIPID, CMP, TSH3 #### [place] [address] USAMonocytes/100 leukocytes in Blood by Automated count Ordered By: Peter Ahumada on 88-76-1910Ypczcdcif/100 WBC (Bld)8.6 %.[facility] Memorial HospitalComment on above:Performed By: #### A1C WTH eA, CBC, T4F, LIPID, CMP, TSH3 #### [facility] [address] [place] [address] USANeutrophils [#/volume] in Blood by Automated countOrdered By: Peter Ahumada on 77-86-8627Fiudzrztlfn (Bld) [#/Vol]2.7 10*3/uL1.8-7.7FKettering HealthComment on above:Performed By: #### A1C WTH eA, CBC, T4F, LIPID, CMP, TSH3 #### [facility] [address] [place] [id number] USANeutrophils/100 leukocytes in Blood by Automated count Ordered By: Peter Ahumada on 58-82-2293Ozcayvgctas/100 WBC (Bld)54.4 %.[facility] Memorial HospitalComment on above:Performed By: #### A1C WTH eA, CBC, T4F, LIPID, CMP, TSH3 #### [facility] [address] [place] [id number] USANo Panel InformationOrdered By: Peter Ahumada on 05-15-2025 Pharmacy Creatinine Clearance (ChemN/[facility] HospitalNucleated erythrocytes [Presence] in Blood by Automated countOrdered By: Peter Ahumada on 65-63-3312Bcyojxeze RBC Auto Ql (Bld)0.1 /100{WBC}0-0.5FKettering HealthPlatelet mean volume [Entitic volume] in Blood by Automated count Ordered By: Peter Ahumada on 08-68-9260Lsghdrez mean volume (Bld) [Entitic vol]7.1 fL6.3-10.7FKettering HealthComment on above:Performed By: #### A1C WTH eA, CBC, T4F, LIPID, CMP, TSH3 #### [facility] [address] [place] [id number] USAPlatelets [#/volume] in Blood by Automated countOrdered By: Peter Ahumada on 43-22-8474Crltxjhxq (Bld) [#/Vol]314 10*3/mA685-164WnlmbgxflGuernsey Memorial HospitalComment on above:Performed By: #### A1C WTH eA, CBC, T4F, LIPID, CMP, TSH3 #### [facility] [address] [place] [id number] USAPotassium [Moles/volume] in Serum or PlasmaOrdered By: Peter Ahumada on 61-95-9071Odflapjws [Moles/Vol]4.3 mmol/L3.5-5.1FKettering HealthComment on above:Performed By: #### A1C WTH eA, CBC, T4F, LIPID, CMP, TSH3 ####[place] [address] USAProtein [Mass/volume] in Serum or PlasmaOrdered By: Peter Ahumada on 05-15-2025 Protein [Mass/Vol]6.8 g/dL6.4-8.9Gu[facility] Memorial HospitalComment on above:Performed By: #### A1C WTH eA, CBC, T4F, LIPID, CMP, TSH3 ####[place] [id number] USASerum globulin measurement by calculation (mass/volume)Ordered By: Peter Ahumada on 05-15-2025 Globulin (S) [Mass/Vol]2.9 g/dLGuernsey Memorial HospitalComment on above:Performed By: #### A1C WTH eA, CBC, T4F, LIPID, CMP, TSH3 ####[place] [address] USASerum or plasma albumin/globulin mass ratioOrdered By: Peter Ahumada on 92-94-3866Aarpbfm/Globulin [Mass ratio]1.3 {ratio}[facility] Memorial HospitalComment on above: Performed By: #### A1C WTH eA, CBC, T4F, LIPID, CMP, TSH3 ####[place] [address] USASerum or plasma anion gap determinationOrdered By: Peter Ahumada on 50-78-3113Yslse gap [Moles/Vol]8.5 mmol/L 6.0-15.0Gu[facility]sey Memorial HospitalComment on above:Performed By: #### A1C WTH eA, CBC, T4F, LIPID, CMP, TSH3 ####[place] [id number] USASerum or plasma total cholesterol/high density lipoprotein (HDL) cholesterol mass ratOrdered By: Peter Ahumada on 05-15-2025 Cholesterol.total/Cholesterol in HDL [Mass ratio]3.8 {ratio}<5.0[facility]sey [facility] HospitalComment on above:Performed By: #### A1C WTH eA, CBC, T4F, LIPID, CMP, TSH3 ####[place] [id number] [place] [id number] USASodium [Moles/volume] in Serum or PlasmaOrdered By: Peter Ahumada on 14-80-1996Tszdat [Moles/Vol]140 mmol/L959-425GgwdhltdzGuernsey Memorial Hospital Comment on above:Performed By: #### A1C [facility] eA, CBC, T4F, LIPID, CMP, TSH3 ####[place] [id number] [facility] Thyrotropin [Units/volume] in Serum or PlasmaOrdered By: Peter Ahumada on 00-41-4321LJM Qn0.96 m[IU]/L0.45-5.33Gu[facility]sey Memorial HospitalComment on above:Result Comment: PERFORMED BY: [place] [address] [place] [address] PATHOLOGIST TRANSPORT TECH SAURABH JOHNSON M.D.Performed By: #### A1C [facility] eA, CBC, T4F, LIPID, CMP, TSH3 ####[place] [id number] [facility] Thyroxine (T4) free [Mass/volume] in Serum or PlasmaOrdered By: Peter Ahumada on 76-99-2021Yweq T4 [Mass/Vol]0.82 ng/dL0.61-1.12[facility] Comment on above:Performed By: #### A1C [facility] eA, CBC, T4F, LIPID, CMP, TSH3 ####[place] [id number] [facility] Triglyceride [Mass/volume] in Serum or PlasmaOrdered By: Peter Ahumada on 46-68-2348Ceiqdygdxegp [Mass/Vol]117 mg/dL0-149[facility] Comment on above:TRIG ATP III CLASSIFICATIONTRIG less than 150 mg/dL NormalTRIG 150-199 mg/dL Borderline highTRIG 200-500 mg/dL High TRIG greater than 500 mg/dL Very highStandard traceable to the Center for Disease Conrtrol and Prevention (CDC) test method.Urea nitrogen [Mass/volume] in Serum or PlasmaOrdered By: Peter Ahumada on 91-47-1722Ixyz nitrogen [Mass/Vol]13 mg/dL02-13Gu[facility]sey Memorial HospitalComment on above:Performed By: #### A1C [facility] eA, CBC, T4F, LIPID, CMP, TSH3 ####[facility] [address] [place] [id number] USAMM screening mammo BI w/CADon 77-08-9126JQ screening mammo BI w/[facility] [address] [place], [place] [id number] Mammography Report Signed Patient: Darling Khanna MR#: [id number] : 1980 Acct:[id number] Age/Sex: 44 / F Adm Date: 01/27/25 Loc: ID Room: Type: [facility] Attending Dr: Peter Ahumada DO Ordering Provider: Peter Ahumada DO Date of Service: 01/27/25 Procedure(s): MM screening mammo BI w/CAD Accession Number(s): ([id number]) MM/MM screening mammo BI w/CAD: Z12.39 - [...] Osmani Stovall DO 01/27/2559 Signed By: 01/27/[address] [place] [address] Physician GroupMammography reportOrdered By: Osmani Stovall on 17-26-9865Xqopeswlau imaging [facility] [address] [place] [address] Mammography Report Signed Patient: Darling Khanna MR#: [id number] : 1980 Acct:[id number] Age/Sex: 44 / F Adm Date: 5 Loc: ID Room: Type: [facility] Attending Dr: Peter Ahumada DO Ordering Provider: Peter Ahumada DO Date of Service: 01/27/25 Procedure(s): MM screening mammo BI w/CAD Accession Number(s): ([id number]) MM/MM screening mammo BI w/CAD: Z12.39 - [...] THE NEXT MAMMOGRAM. Impression dictated by: Osmani Stoavll M.D. 01/27/2025 9:02 AM Dictation Location: DWS01 Dictated By: Osmani Stovall DO 01/27/25 0859 Signed By: 01/27/25 0902 [facility] HospitalA1C with Estimated Average Gluon 12-05-2024 Glucose [Mass/Vol]117 mg/dLNoGood Hope Hospital Physician GroupComment on above: Result Comment: PERFORMED BY: [place] [address] PATHOLOGIST TRANSPORT TECH PADILLA LYMAN M.D.Performed By: #### TSH3, CBC, A1C WTH eA, LIPID, CMP, T4F #### [facility] [address] [place], [place] [address] USAAlanine aminotransferase [Enzymatic activity/volume] in Serum or PlasmaOrdered By: Peter Ahumada on 82-59-1997DIL [Catalytic activity/Vol]6 U/LLow7-52Gu[facility]sey Memorial HospitalComment on above:Performed By: #### TSH3, CBC, A1C WTH eA, LIPID, CMP, T4F #### [facility] [address] [place] [address] USAAlbumin [Mass/volume] in Serum or Plasma by Bromocresol green (BCG) dye binding methoOrdered By: Peter Ahumada on 19-72-9436Ifjtttl BCG dye [Mass/Vol]3.7 g/dL3.5-5.7FKettering HealthAlkaline phosphatase [Enzymatic activity/volume] in Serum or PlasmaOrdered By: Peter Ahumada on 85-68-7469SOP [Catalytic activity/Vol]42 U/XWxuacn18-630LqonoafdqGuernsey Memorial HospitalComment on above:Performed By: #### TSH3, CBC, A1C WTH eA, LIPID, CMP, T4F #### [facility] [address] [place] [address] USAAspartate aminotransferase [Enzymatic activity/volume] in Serum or PlasmaOrdered By: Peter Ahumada on 75-76-5705CVS [Catalytic activity/Vol] 12 U/UEfj89-39KfxdcyyutGuernsey Memorial HospitalComment on above:Performed By: #### TSH3, CBC, A1C WTH eA, LIPID, CMP, T4F #### [facility] [address] [place] [address] USABasophils [#/volume] in Blood by Automated countOrdered By: Peter Ahumada on 05-30-0574Jzqaynnhd (Bld) [#/Vol]0.1 10*3/uLNormal0.0-0.2 [facility] Memorial HospitalComment on above:Result Comment: PERFORMED BY: [place] [address] PATHOLOGIST TRANSPORT TECH PADILLA LYMAN M.D.Performed By: #### TSH3, CBC, A1C WTH eA, LIPID, CMP, T4F #### [place] [id number] USABasophils/100 leukocytes in Blood by Automated count Ordered By: Peter Ahumada on 20-34-4654Autmeuewk/100 WBC (Bld)0.8 %Normal.Guernsey Memorial HospitalComment on above:Performed By: #### TSH3, CBC, A1C WTH eA, LIPID, CMP, T4F #### [place] [address] USABilirubin.total [Mass/volume] in Serum or PlasmaOrdered By: Peter Ahumada on 15-36-6071Uvwiheput [Mass/Vol]0.3 mg/dLNormal0.3-1.0Gu[facility] Memorial HospitalComment on above:Performed By: #### TSH3, CBC, A1C WTH eA, LIPID, CMP, T4F #### [facility] [address] [place], [place] [address] USABlood estimated average glucose determination by estimation from glycated hemoglobinOrdered By: Peter Ahumada on 36-26-7669Rziqpxe glucose Estimated from glycated hemoglobin (Bld) [Mass/Vol]117 mg/dLGuernsey Memorial HospitalCalcium [Mass/volume] in Serum or PlasmaOrdered By: Peter Ahumada on 18-96-9679Plkmxfc [Mass/Vol]8.5 mg/dLLow8.6-10.3FKettering HealthComment on above:Performed By: #### TSH3, CBC, A1C WTH eA, LIPID, CMP, T4F #### [address] [place] [address] USACarbon dioxide, total [Moles/volume] in Serum or Plasma Ordered By: Peter Ahumada on 25-71-6066CT5 [Moles/Vol]29.8 mmol/WLypjxp66.0-31.0 [facility] Memorial HospitalComment on above:Performed By: #### TSH3, CBC, A1C WTH eA, LIPID, CMP, T4F #### [facility] [address] [place] [address] USAChloride [Moles/volume] in Serum or PlasmaOrdered By: Peter Ahumada on 76-81-5803Jbbzyamt [Moles/Vol]105 mmol/NNdtcgl98-558KalwrxenkGuernsey Memorial HospitalComment on above:Performed By: #### TSH3, CBC, A1C WTH eA, LIPID, CMP, T4F #### [facility] [address] [place] [address] USACholesterol [Mass/volume] in Serum or PlasmaOrdered By: Peter Ahumada on 33-88-3054Okcgjgeeves [Mass/Vol]151 mg/xETzilla912-330AsspttudpGuernsey Memorial HospitalComment on above:Chol less than 200 mg/dl low riskChol 201-239 mg/dl borderline riskChol 240 mg/dl and greater high riskResult Comment: Chol less than 200 mg/dl low risk Chol 201-239 mg/dl borderline risk Chol 240 mg/dl and greater high riskPerformed By: #### TSH3, CBC, A1C WTH eA, LIPID, CMP, T4F #### [facility] [address] [place] [address] USACholesterol in HDL [Mass/volume] in Serum or PlasmaOrdered By: Peter Ahumada on 16-16-0675Mytahyxfqcm in HDL [Mass/Vol]50 mg/rFSoelnm75-80 [facility] Memorial HospitalComment on above:HDL CHOL ATP-III CLASSIFICATION Cardiovascular RiskHDL > or equal to 60 mg/dL LOWHDL < 40 mg/dL HIGHResult Comment: HDL CHOL ATP-III CLASSIFICATION Cardiovascular Risk HDL > or equal to 60 mg/dL LOW HDL < 40 mg/dL HIGHPerformed By: #### TSH3, CBC, A1C WTH eA, LIPID, CMP, T4F #### [facility] [address] [place] [phone] USACholesterol in LDL Calc [Mass/Vol]Ordered By: Peter Ahumada on 50-10-4872Gxkfforffvt in LDL [Mass/Vol]84 mg/dL0-100Gu[facility] Memorial HospitalComment on above:LDL ATP III CLASSIFICATIONLDL less than 100 mg/dL OptimalLDL 100-129 mg/dL Near or above havtyabTPC531-844 mg/dL Borderline highLDL 160-189 mg/dL HighLDL greater than 189 mg/dL Very highCholesterol in VLDL Calc [Mass/Vol]Ordered By: Peter Ahumada on 79-93-5986Zzhverxkios in VLDL [Mass/Vol]16 mg/dLGuernsey Memorial HospitalComplete Blood Count Auto Diffon 25-16-8992Bbae Corpuscular HGB Conc33.5 g/iXRhyooj68.0-35.0[facility] Physician GroupComment on above:Performed By: #### TSH3, CBC, A1C WTH eA, LIPID, CMP, T4F #### [facility] [address] [place] [address] USANRBC%0.0 /100{WBC}Normal0-0.5[facility] Comment on above:Performed By: #### TSH3, CBC, A1C WTH eA, LIPID, CMP, T4F #### [facility] [address] [place] [phone] USAComprehensive Metabolic Panelon 22-95-4372Zwdwcny [Mass/Vol]3.7 g/dLNormal3.5-5.7[facility] Physician GroupComment on above: Performed By: #### TSH3, CBC, A1C WTH eA, LIPID, CMP, T4F #### [facility] [address] [place] [id number] USAGFR/1.73 sq M.predicted MDRD (S/P/Bld) [Vol rate/Area] mL/min/{1.73_m2}NormalThe [facility] Physician GroupComment on above:Performed By: #### TSH3, CBC, A1C WTH eA, LIPID, CMP, T4F #### [facility] [address] [place] [phone] USACreatinine [Mass/volume] in Serum or PlasmaOrdered By: Peter Ahumada on 64-29-5994Yoqfqbjtpn [Mass/Vol]0.50 mg/dLLow0.60-1.20[facility] HospitalComment on above:Performed By: #### TSH3, CBC, A1C WTH eA, LIPID, CMP, T4F #### [facility] [address] [place] [phone] USAEosinophils [#/volume] in Blood by Automated countOrdered By: Peter Ahumada on 77-00-6486Xjyloyfjnae (Bld) [#/Vol]0.1 10*3/uLNormal0.0-0.45 [facility] HospitalComment on above:Performed By: #### TSH3, CBC, A1C WTH eA, LIPID, CMP, T4F #### [facility] [address] [place] [phone] USAEosinophils/100 leukocytes in Blood by Automated count Ordered By: Peter Ahumada on 34-28-5423Kmbuckptvdl/100 WBC (Bld)1.7 %Normal. [facility] Memorial HospitalComment on above:Performed By: #### TSH3, CBC, A1C WTH eA, LIPID, CMP, T4F #### [facility] [address] [place] [address] USAErythrocyte distribution width [Ratio] by Automated count Ordered By: Peter Ahumada on 91-91-7187Sxovkrboequ distribution width (RBC) [Ratio] 12.7 %Gyxqyh88.9-15.3FKettering HealthComment on above:Performed By: #### TSH3, CBC, A1C WTH eA, LIPID, CMP, T4F #### [facility] [address] [place] [id number] USAErythrocytes [#/volume] in Blood by Automated countOrdered By: Peter Ahumada on 78-78-3682MRT (Bld) [#/Vol]4.14 10*6/uLNormal3.60-5.00 [facility] Memorial HospitalComment on above:Performed By: #### TSH3, CBC, A1C WTH eA, LIPID, CMP, T4F #### [facility] [address] [place] [address] USAGlucose [Mass/volume] in Serum or PlasmaOrdered By: Peter Ahumada on 33-33-7102Znrmrhc [Mass/Vol]98 mg/dRDwemzg16-539IjupeuoxoGuernsey Memorial HospitalComment on above:ADA recommended reference rangeRandom Glucose [...] A1C WTH eA, LIPID, CMP, T4F #### [facility] [address] [place] [address] USAHematocrit [Volume Fraction] of Blood by Automated count Ordered By: Peter Ahumada on 20-08-1456Xhmocgytjy (Bld) [Volume fraction]36.1 % Ktebfu59.0-46.4FKettering HealthComment on above:Performed By: #### TSH3, CBC, A1C WTH eA, LIPID, CMP, T4F #### [facility] [address] [place] [address] USAHemoglobin A1c/Hemoglobin.total in BloodOrdered By: Peter Ahumada on 42-02-9048PvW0c (Bld) [Mass fraction]5.7 %High4.3-5.6FKettering HealthComment on above:Increased risk for diabetes: 5.7 - 6.4diabetes: >6.4glycemic control for adults with diabetes: <7.0Result Comment: Increased risk for diabetes: 5.7 - 6.4 diabetes: >6.4 glycemic control for adults with diabetes: <7.0Performed By: #### TSH3, CBC, A1C WTH eA, LIPID, CMP, T4F #### [facility] [address] [place] [address] USAHemoglobin [Mass/volume] in BloodOrdered By: Peter Ahumada on 53-88-2623Oxqjocqswm (Bld) [Mass/Vol]12.1 g/lYCdqyge77.8-15.4FKettering HealthComment on above:Performed By: #### TSH3, CBC, A1C WTH eA, LIPID, CMP, T4F #### [facility] [address] [place] [address] USALeukocytes [#/volume] corrected for nucleated erythrocytes in Blood by Automated counOrdered By: Peter Ahumada on 03-97-8338RJD corrected for nucl RBC Auto (Bld) [#/Vol]7.1 10*3/uL3.8-11.6FKettering Health Leukocytes [#/volume] in Blood by Automated countOrdered By: Peter Ahumada on 94-05-0767TSV (Bld) [#/Vol]7.1 10*3/uLNormal3.8-11.6FKettering HealthComment on above:Performed By: #### TSH3, CBC, A1C WTH eA, LIPID, CMP, T4F #### [facility] [address] [place] [address] USALipid Panelon 89-87-9039YKT Cholesterol,Vgvongduhp95 mg/dL Normal0-100The [facility] Physician GroupComment on above:Result Comment: LDL ATP III CLASSIFICATION LDL less than 100 mg/dL Optimal LDL 100-129 mg/dL Near or above optimal LDL 130-159 mg/dL Borderline high LDL 160-189 mg/dL High LDL greater than 189 mg/dL Very highPerformed By: #### TSH3, CBC, A1C WTH eA, LIPID, CMP, T4F #### [facility] [address] [place] [address] USATriglyceride w/Xjrppi34 mg/dLNormal0-149The [facility] Physician GroupComment on above:Result Comment: TRIG ATP III CLASSIFICATION TRIG less than 150 mg/dL Normal TRIG 150-199 mg/dL Borderline high TRIG 200-500 mg/dL High TRIG greater than 500 mg/dL Very high Standard traceable to the Center for Disease Conrtrol and Prevention (CDC) test method.Performed By: #### TSH3, CBC, A1C WTH eA, LIPID, CMP, T4F #### [facility] [address] [place] [id number] USAVLDL WYAXYJAPZWK85 mg/dLNoGood Hope Hospital Physician GroupComment on above:Performed By: #### TSH3, CBC, A1C WTH eA, LIPID, CMP, T4F #### [facility] [address] [place] [address] USALymphocytes [#/volume] in Blood by Automated countOrdered By: Peter Ahumada on 14-39-2598Eaiddfszein (Bld) [#/Vol]1.7 10*3/uLNormal1.00-4.8 [facility] HospitalComment on above:Performed By: #### TSH3, CBC, A1C WTH eA, LIPID, CMP, T4F #### [facility] [address] [place] [phone] USALymphocytes/100 leukocytes in Blood by Automated count Ordered By: Peter Ahumada on 67-61-5871Bggcsmeoumw/100 WBC (Bld)23.9 %Normal. [facility] Memorial HospitalComment on above:Performed By: #### TSH3, CBC, A1C WTH eA, LIPID, CMP, T4F #### [facility] [address] [place] [id number] [facility] [Entitic mass] by Automated countOrdered By: Peter Ahumada on 42-60-7050UKK (RBC) [Entitic mass]29.1 tfNjiszv47.7-34.3FKettering HealthComment on above:Performed By: #### TSH3, CBC, A1C WTH eA, LIPID, CMP, T4F #### [facility] [address] [place] [phone] [facility] Auto (RBC) [Mass/Vol]Ordered By: Peter Ahumada on 02-08-7140BESH (RBC) [Mass/Vol]33.5 g/dL32.0-35.0[facility]V [Entitic volume] by Automated countOrdered By: Peter Ahumada on 10-92-9980NOE (RBC) [Entitic vol]87.0 qPDjxhqc29-007UygluzqerGuernsey Memorial HospitalComment on above:Performed By: #### TSH3, CBC, A1C WTH eA, LIPID, CMP, T4F #### [facility] [address] [place] [address] USAMonocytes [#/volume] in Blood by Automated countOrdered By: Peter Ahumada on 00-52-1578Fdkhsyxpi (Bld) [#/Vol]0.5 10*3/uLNormal0.0-0.8 [facility] HospitalComment on above:Performed By: #### TSH3, CBC, A1C WTH eA, LIPID, CMP, T4F #### [facility] [address] [place] [address] USAMonocytes/100 leukocytes in Blood by Automated count Ordered By: Peter Ahumada on 16-75-8517Hoyomugcg/100 WBC (Bld)7.2 %Normal.[facility] HospitalComment on above:Performed By: #### TSH3, CBC, A1C WTH eA, LIPID, CMP, T4F #### [facility] [address] [place] [address] USANeutrophils [#/volume] in Blood by Automated countOrdered By: Peter Ahumada on 28-39-0233Mrukvfhtlbd (Bld) [#/Vol]4.7 10*3/uLNormal1.8-7.7 [facility] HospitalComment on above:Performed By: #### TSH3, CBC, A1C WTH eA, LIPID, CMP, T4F #### [facility] [address] [place] [address] USANeutrophils/100 leukocytes in Blood by Automated count Ordered By: Peter Ahumada on 51-12-6327Umzoqgnepzl/100 WBC (Bld)66.4 %Normal. [facility] HospitalComment on above:Performed By: #### TSH3, CBC, A1C WTH eA, LIPID, CMP, T4F #### [facility] [address] [place] [address] USANo Panel InformationOrdered By: Peter Ahumada on 12-05-2024 Estimated GFR (CKD-EPI)> 60.0 mL/MinGuernsey Memorial HospitalPharmacy Creatinine Clearance (ChemN/AFKettering HealthNucleated erythrocytes [Presence] in Blood by Automated countOrdered By: Peter Ahumada on 80-69-9773Symianetq RBC Auto Ql (Bld)0.0 /100{WBC}0-0.5FKettering HealthPlatelet mean volume [Entitic volume] in Blood by Automated count Ordered By: Peter Ahumada on 19-83-7707Utelqzjl mean volume (Bld) [Entitic vol]7.7 fLNormal6.3-10.7FKettering HealthComment on above:Performed By: #### TSH3, CBC, A1C WTH eA, LIPID, CMP, T4F #### [facility] [address] [place] [address] USAPlatelets [#/volume] in Blood by Automated countOrdered By: Peter Ahumada on 94-54-4750Ynsixcrek (Bld) [#/Vol]296 10*3/fFMkfnsa331-180 [facility] HospitalComment on above:Performed By: #### TSH3, CBC, A1C WTH eA, LIPID, CMP, T4F #### [facility] [address] [place], [place] [address] USAPotassium [Moles/volume] in Serum or PlasmaOrdered By: Peter Ahumada on 98-17-2977Mzyxzfppz [Moles/Vol]4.4 mmol/LNormal3.5-5.1FKettering HealthComment on above:Performed By: #### TSH3, CBC, A1C WTH eA, LIPID, CMP, T4F #### [facility] [address] [place] [address] USAProtein [Mass/volume] in Serum or PlasmaOrdered By: Peter Ahumada on 75-00-0864Xtrogrb [Mass/Vol]6.0 g/dLLow6.4-8.9[facility] HospitalComment on above:Performed By: #### TSH3, CBC, A1C WTH eA, LIPID, CMP, T4F #### [facility] [address] [place] [address] USASerum globulin measurement by calculation (mass/volume) Ordered By: Peter Ahumada on 63-02-9792Nceuflyy (S) [Mass/Vol]2.3 g/dLNormal [facility] HospitalComment on above:Performed By: #### TSH3, CBC, A1C WTH eA, LIPID, CMP, T4F #### [facility] [address] [place] [address] USASerum or plasma albumin/globulin mass ratioOrdered By: Peter Ahumada on 86-57-1772Dorbdyw/Globulin [Mass ratio]1.6 {ratio}NormalGuernsey Memorial HospitalComment on above:Performed By: #### TSH3, CBC, A1C WTH eA, LIPID, CMP, T4F #### [facility] [address] [place] [address] USASerum or plasma anion gap determinationOrdered By: Peter Ahumada on 58-96-9004Qgdpq gap [Moles/Vol]8.6 mmol/LNormal6.0-15.0[facility] HospitalComment on above:Performed By: #### TSH3, CBC, A1C WTH eA, LIPID, CMP, T4F #### [facility] [address] [place] [address] USASerum or plasma total cholesterol/high density lipoprotein (HDL) cholesterol mass ratOrdered By: Peter Ahumada on 12-05-2024 Cholesterol.total/Cholesterol in HDL [Mass ratio]3.0 {ratio}Normal<5.0[facility] Memorial HospitalComment on above:Performed By: #### TSH3, CBC, A1C WTH eA, LIPID, CMP, T4F #### [facility] [address] [place] [id number] USASodium [Moles/volume] in Serum or PlasmaOrdered By: Peter Ahumada on 89-20-4445Iakugh [Moles/Vol]139 mmol/QOljndj230-830TohboyfkwGuernsey Memorial HospitalComment on above:Performed By: #### TSH3, CBC, A1C WTH eA, LIPID, CMP, T4F #### [facility] [address] [place] [address] USAThyrotropin [Units/volume] in Serum or PlasmaOrdered By: Peter Ahumada on 29-16-0706TTH Qn0.30 m[IU]/LLow0.45-5.33[facility] HospitalComment on above:Result Comment: PERFORMED BY: [place] [id number] PATHOLOGIST TRANSPORT TECH PADILLA LYMAN M.D.Performed By: #### TSH3, CBC, A1C WTH eA, LIPID, CMP, T4F #### [facility] [address] [place] [phone] USAThyroxine (T4) free [Mass/volume] in Serum or Plasma Ordered By: Peter Ahumada on 61-26-3002Jvsd T4 [Mass/Vol]1.01 ng/dLNormal0.61-1.12 [facility] HospitalComment on above:Performed By: #### TSH3, CBC, A1C WTH eA, LIPID, CMP, T4F #### [facility] [address] [place] [phone] USATriglyceride [Mass/volume] in Serum or PlasmaOrdered By: Peter Ahumada on 65-08-1679Kojzorflhmaq [Mass/Vol]83 mg/dL0-149[facility] HospitalComment on above:TRIG ATP III CLASSIFICATIONTRIG less than 150 mg/dL NormalTRIG 150-199 mg/dL Borderline highTRIG 200-500 mg/dL High TRIG greater than 500 mg/dL Very highStandard traceable to the Center for Disease Co nrtrol and Prevention (CDC) test method.Urea nitrogen [Mass/volume] in Serum or PlasmaOrdered By: Peter Ahumada on 08-36-0755Spuo nitrogen [Mass/Vol]16 mg/dLNormal 7-25[facility] Memorial HospitalComment on above:Performed By: #### TSH3, CBC, A1C WTH eA, LIPID, CMP, T4F #### [facility] [address] [place] [address] USAPathology study report documentOrdered By: Adolfo Madrid on 78-85-2450Syjcpvyfr [facility] Other Lon 09-29-2024L Specimen: [id number] Received: 09/29/24 Status: JORGE Bergman Num: [id number] Spec Type: Surgical Subm Dr: Alber Lara DO Tissues: A Skin Cyst (RT CHEST CYSTIC WALL) Procedures: Luma RAMIREZ/Fabiana L3 Age/ Patient Sex Location Account Attending Physician Darling Khanna 44/F [place] [id number] Alber Lara DO SPEC NUM: [id number] RECD: 09/29/24 STATUS: JORGE BERGMAN NUM: [id number] ALISTAIR: 09/29/24- [facility] DR: Alber Lara DO ENTERED: 09/29/24-[address] [facility] [address]: [facility] SPEC TYPE: Surgical DEPT: S ORDERED: HE, [...] submitted in a single cassette. (1, ns, [id number]) NOEL Specimen: [id number] Received: 09/29/24 Status: JORGE Bergman Num: [id number] Spec Type: Surgical Subm Dr: Alber Lara DO Tissues: A Skin Cyst (RT CHEST CYSTIC WALL) Procedures: ASHLEY Gross/Micro L3 Patient: MaydaDarling [id number] (Continued) Specimen: [id number] Received: 09/29/24 (Continued) Signed (signature on file) ChinTiffany Madrid MD 09/30/24 1501 Specimen: [id number] Received: 09/29/24 Status: JORGE Bergman Num: [id number] Spec Type: Surgical Subm Dr: Alber Lara DO Tissues: A Skin Cyst (RT CHEST CYSTIC WALL) Procedures: Luma RAMIREZ/Fabiana L3 Patient: Darling Khanna [id number] (Continued) Specimen: [id number] Received: 09/29/24 (Continued) Microscopic Description Microscopic examinations are performed supporting the above interpretation CPT Codes 56469 Specimen: [id number] Received: 09/29/24 Status: JORGE Bergman Num: [id number] Spec Type: Surgical Subm Dr: Alber Lara DO Tissues: A Skin Cyst (RT CHEST CYSTIC WALL) Procedures: Luma RAMIREZ/Fabiana L3 Patient: Darling Khanna [id number] (Continued) Signed (signature on file) Adolfo Madrid MD 09/30/[address] [place] [address] Physician Group ankle LT wo conon [id number] ankle LT wo [facility] [place] [address] MRI Report Signed Patient: Darling Khanna MR#: [id number] : 1980 Acct:[id number] Age/Sex: 44 / F ADM Date: 06/04/24 Loc: MR Room: Type: [facility] Attending Dr: Robert Martinez DPM, MS [...] Osmani Stovall M.D.06/04/2024 10:29 PM Dictation Location: [place] [address] Transcribed By: [facility] 06/04/242228 Dictated By: Osmani Stovall DO 06/04/242217 Signed By: 06/04/242228[facility] CenterMagnetic resonance imaging reportOrdered By: Osmani Stovall on 27-40-6384Gxlrl reportC[facility] [place] [address] [place] [address] MRI Report Signed Patient: Darling Khanna MR#: [id number] : 1980 Acct:[id number] Age/Sex: 44 / F ADM Date: 4 Loc: MR Room: Type: [facility] Attending Dr: Robert Martinez DPM, MS [...] Osmani Stovall M.D.06/04/2024 10:29 PM Dictation Location: [place] [address] Transcribed By: [facility] 06/04/242228 Dictated By: Osmani Stovlal DO 06/04/242217 Signed By: 06/04/242228 [facility] HospitalX-ray reportOrdered By: Osmani Stovall on 42-29-2455Ofjqc reportC[facility]AND [facility] [place] [address] [place], [place] [id number] XRay Report Signed Patient: Darling Khanna MR#: [id number] : 1980 Acct:[id number] Age/Sex: 44 / F ADM Date: 4 Loc: MR Room: Type: [facility] Attending Dr: Robert Martinez DPM, MS [...] 11:51 PM Dictation Location: RADIO--01 Transcribed By: [facility] 06/04/242350 Dictated By: Osmani Stovall DO 06/04/242350 Signed By: 06/04/242350 [facility] HospitalXR pre/post mri xrayon 78-60-1775IR pre/post mri xrayC[facility] [place] [place] [address] XRay Report Signed Patient: Darling Khanna MR#: [id number] : 1980 Acct:[id number] Age/Sex: 44 / F ADM Date: 06/04/24 Loc: Room: Type: [facility] Attending Dr: Robert Martinez DPM, MS [...] 11:51 PM Dictation Location: RADIO--01 Transcribed By: [facility] 06/04/242350 Dictated By: Osmani Stovall DO 06/04/242350 Signed By: 06/04/24 [facility] HospitalShorePoint [facility] Physician GroupEMG 2 Extremitieson 14-62-4246H6 radiculopathy, left, [facility] 11-12 Nerveson 82-11-5410X6 radiculopathy, left, mildNOMS HealthcareNOMS HealthcareAlanine aminotransferase [Enzymatic activity/volume] in Serum or PlasmaOrdered By: Peter Ahumada on 98-35-8736IAM [Catalytic activity/Vol]10 U/L7-52[facility] HospitalAlbumin [Mass/volume] in Serum or Plasma by Bromocresol green (BCG) dye binding methoOrdered By: Peter Ahumada on 82-27-9950Augocuc BCG dye [Mass/Vol]4.0 g/dL3.5-5.7FKettering HealthAlkaline phosphatase [Enzymatic activity/volume] in Serum or PlasmaOrdered By: Peter Ahumada on 54-70-6340NZB [Catalytic activity/Vol]46 U/L95-946BhzcdkyipGuernsey Memorial HospitalAspartate aminotransferase [Enzymatic activity/volume] in Serum or Plasma Ordered By: Peter Ahumada on 71-22-5924LIQ [Catalytic activity/Vol]20 U/L13-39 [facility] HospitalBasophils Auto (Bld) [#/Vol]Ordered By: Peter Ahumada on 71-76-2807Zpohkpzhx (Bld) [#/Vol]0.0 10*3/uL0.0-0.2FKettering HealthBasophils/100 WBC Auto (Bld)Ordered By: Peter Ahumada on 03-05-2024 Basophils/100 WBC (Bld)0.7 %.[facility] HospitalBilirubin.total [Mass/volume] in Serum or PlasmaOrdered By: Peter Ahumada on 88-51-8283Zzfziodya [Mass/Vol]0.4 mg/dL0.3-1.0[facility] HospitalCalcium [Mass/volume] in Serum or PlasmaOrdered By: Peter Ahumada on 63-60-2404Npcsfsh [Mass/Vol]8.9 mg/dL8.6-10.3FKettering HealthCarbon dioxide, total [Moles/volume] in Serum or PlasmaOrdered By: Peter Ahumada on 91-28-6054RH1 [Moles/Vol]28.7 mmol/L21.0-31.0[facility] HospitalChloride [Moles/volume] in Serum or PlasmaOrdered By: Peter Ahumada on 03-71-1845Jmhyolsg [Moles/Vol]103 mmol/D20-577QyixnvickGuernsey Memorial HospitalCholesterol [Mass/volume] in Serum or PlasmaOrdered By: Peter Ahumada on 70-65-6087Fcsztnlncpe [Mass/Vol]166 mg/dM646-274KsowhofieGuernsey Memorial HospitalComment on above:Chol less than 200 mg/dl low riskChol 201-239 mg/dl borderline riskChol 240 mg/dl and greater high riskCholesterol in LDL Calc [Mass/Vol]Ordered By: Peter Ahumada on 88-01-2444Pkejpwlsgfx in LDL [Mass/Vol]76 mg/dL0-100[facility] HospitalComment on above:LDL ATP III CLASSIFICATIONLDL less than 100 mg/dL OptimalLDL 100-129 mg/dL Near or above fnywkulNXR884-606 mg/dL Borderline highLDL 160-189 mg/dL HighLDL greater than 189 mg/dL Very highCholesterol in VLDL Calc [Mass/Vol]Ordered By: Peter Ahumada on 31-80-1119Ldvkymlpasc in VLDL [Mass/Vol]40 mg/dLGuernsey Memorial HospitalCreatinine [Mass/volume] in Serum or PlasmaOrdered By: Peter Ahumada on 22-87-1488Cdzqsngtie [Mass/Vol]0.63 mg/dL0.60-1.20[facility] HospitalEosinophils Auto (Bld) [#/Vol] Ordered By: Peter Ahumada on 71-48-6979Efaeagepcqz (Bld) [#/Vol]0.1 10*3/uL0.0-0.45 [facility] HospitalEosinophils/100 WBC Auto (Bld)Ordered By: Peter Ahumada on 21-51-6796Blognqpcair/100 WBC (Bld)2.2 %.[facility] HospitalErythrocyte distribution width Auto (RBC) [Ratio]Ordered By: Peter Ahumada on 01-97-9367Gdblafvjypo distribution width (RBC) [Ratio]13.4 %11.9-15.3FKettering HealthGlobulin Calc (S) [Mass/Vol]Ordered By: Peter Ahumada on 99-64-7127Lqeddxuw (S) [Mass/Vol]2.7 g/dLGuernsey Memorial Hospital Glucose [Mass/volume] in Serum or PlasmaOrdered By: Peter Ahumada on 03-05-2024 Glucose [Mass/Vol]96 mg/xP67-380HsqbudoryGuernsey Memorial HospitalComment on above:ADA recommended reference rangeRandom Glucose Reference Range is dependent on time and content of last meal. Glucose of more than 200 mg/dL in a nonstressed, ambulatory subject supports the diagnosisof Diabetes Mellitus. Glucose mean value [Mass/volume] in Blood Estimated from glycated hemoglobin Ordered By: Peter Ahumada on 40-39-5386Lrytwcs glucose Estimated from glycated hemoglobin (Bld) [Mass/Vol]128 mg/dLGuernsey Memorial HospitalHematocrit Auto (Bld) [Volume fraction]Ordered By: Peter Ahumada on 21-95-7245Uthfvelsih (Bld) [Volume fraction]37.2 %34.0-46.4FKettering HealthHemoglobin A1c percentageOrdered By: Peter Ahumada on 35-01-6662EwW5r (Bld) [Mass fraction]6.1 % High4.3-5.6FKettering HealthComment on above:Increased risk for diabetes: 5.7 - 6.4diabetes: >6.4glycemic control for adults with diabetes: &l t;7.0Hemoglobin [Mass/volume] in BloodOrdered By: Peter Ahumada on 03-05-2024 Hemoglobin (Bld) [Mass/Vol]12.5 g/dL11.8-15.4FK[facility] Health Leukocytes [#/volume] corrected for nucleated erythrocytes in Blood by Automated counOrdered By: Peter Ahumada on 95-57-9829HNV corrected for nucl RBC Auto (Bld) [#/Vol]6.2 10*3/uL3.8-11.6FKettering HealthLymphocytes Auto (Bld) [#/Vol]Ordered By: Peter Ahumada on 62-62-1871Utehkrnbflj (Bld) [#/Vol]2.2 10*3/uL1.00-4.8[facility] HospitalLymphocytes/100 WBC Auto (Bld) Ordered By: Peter Ahumada on 32-99-1134Jkdobrpzaps/100 WBC (Bld)36.3 %.[facility] HospitalMCH Auto (RBC) [Entitic mass]Ordered By: Peter Ahumada on 36-16-7463WGL (RBC) [Entitic mass]28.2 pg24.7-34.3FKettering HealthMCHC Auto (RBC) [Mass/Vol]Ordered By: Peter Ahumada on 92-21-7354CCMQ (RBC) [Mass/Vol]33.6 g/dL32.0-35.0[facility] HospitalMCV Auto (RBC) [Entitic vol]Ordered By: Peter Ahumada on 91-61-4324GDH (RBC) [Entitic vol]83.8 fL 80-100[facility] HospitalMonocytes Auto (Bld) [#/Vol]Ordered By: Peter Ahumada on 17-28-0903Prkiofgzk (Bld) [#/Vol]0.5 10*3/uL0.0-0.8[facility] HospitalMonocytes/100 WBC Auto (Bld)Ordered By: Peter Ahumada on 13-92-6872Gqhzilmlf/100 WBC (Bld)7.5 %.[facility] Neutrophils Auto (Bld) [#/Vol]Ordered By: Peter Ahumada on 34-04-9690Oviyqqwqmnf (Bld) [#/Vol]3.3 10*3/uL1.8-7.7FKettering HealthNeutrophils/100 WBC Auto (Bld)Ordered By: Peter Ahumada on 67-86-5396Knkgvybweaq/100 WBC (Bld)53.3 %.[facility] HospitalNo Panel InformationOrdered By: Peter Ahumada on 26-61-2112Mvpcxvwhn GFR (CKD-EPI)> 60.0 mL/MinGuernsey Memorial Hospital Pharmacy Creatinine Clearance (ChemN/[facility] HospitalNucleated erythrocytes [Presence] in Blood by Automated countOrdered By: Peter Ahumada on 46-93-2976Nanhotskt RBC Auto Ql (Bld)0.1 /100{WBC}0-0.5FKettering HealthPlatelet mean volume Auto (Bld) [Entitic vol]Ordered By: Peter Ahumada on 18-10-4716Wxrckozz mean volume (Bld) [Entitic vol]8.7 fL6.3-10.7 [facility] HospitalPlatelets Auto (Bld) [#/Vol]Ordered By: Peter Ahumada on 67-52-7513Thshazgmi (Bld) [#/Vol]333 10*3/nY992-522LasnnlbqoGuernsey Memorial HospitalPotassium [Moles/volume] in Serum or PlasmaOrdered By: Peter Ahumada on 49-21-6633Uhqobksoe [Moles/Vol]3.8 mmol/L3.5-5.1FKettering HealthProtein [Mass/volume] in Serum or PlasmaOrdered By: Peter Ahumada on 31-68-3834Sqdxegb [Mass/Vol]6.7 g/dL6.4-8.9[facility] HospitalRBC Auto (Bld) [#/Vol]Ordered By: Peter Ahumada on 17-75-3347QJU (Bld) [#/Vol]4.44 10*6/uL3.60-5.00[facility] Hospitalerum or plasma albumin/globulin mass ratioOrdered By: Peter Ahumada on 38-63-2531Ehfyjcb/Globulin [Mass ratio]1.5 {ratio}[facility] Hospitalerum or plasma anion gap determinationOrdered By: Peter Ahumada on 43-49-9869Dpsze gap [Moles/Vol]11.1 mmol/L6.0-15.0[facility] Hospitalerum or plasma high density lipoprotein (HDL) cholesterol measurementOrdered By: Peter Ahumada on 03-05-2024 Cholesterol in HDL [Mass/Vol]50 mg/iC66-90FcazbxgedGuernsey Memorial Hospital Comment on above:HDL CHOL ATP-III CLASSIFICATION Cardiovascular RiskHDL > or equal to 60 mg/dL LOWHDL < 40 mg/dL HIGHSerum or plasma total cholesterol/high density lipoprotein (HDL) cholesterol mass ratOrdered By: Peter Ahumada on 94-03-9914Pbgazwpgctr.total/Cholesterol in HDL [Mass ratio]3.3 {ratio}<5.0 [facility] Hospitalodium [Moles/volume] in Serum or PlasmaOrdered By: Peter Ahumada on 37-44-6545Qroiyu [Moles/Vol]139 mmol/Y758-024FjrqxttmgGuernsey Memorial HospitalThyrotropin [Units/volume] in Serum or PlasmaOrdered By: Peter Ahumada on 93-69-2326NMO Qn0.29 m[IU]/LLow0.45-5.33[facility] HospitalThyroxine (T4) free [Mass/volume] in Serum or PlasmaOrdered By: Peter Ahumada on 92-81-1558Iore T4 [Mass/Vol]0.81 ng/dL0.61-1.12[facility] HospitalTriglyceride [Mass/volume] in Serum or PlasmaOrdered By: Peter Ahumada on 83-13-2177Hgebjnrbikac [Mass/Vol]202 mg/dLHigh0-149[facility] HospitalComment on above:TRIG ATP III CLASSIFICATIONTRIG less than 150 mg/dL NormalTRIG 150-199 mg/dL Borderline highTRIG 200-500 mg/dL High TRIG greater than 500 mg/dL Very highStandard traceable to the Center for Disease Co nrtrol and Prevention (CDC) test method.Urea nitrogen [Mass/volume] in Serum or PlasmaOrdered By: Peter Ahumada on 74-60-4738Knyu nitrogen [Mass/Vol]11 mg/dL7-25 [facility] HospitalWBC Auto (Bld) [#/Vol]Ordered By: Peter Ahumada on 82-59-3619FTW (Bld) [#/Vol]6.2 10*3/uL3.8-11.6FK[facility]tering Health HCG ( test) IA.rapid Ql (U)Ordered By: Rahul Rogers on 01-29-2024 HCG ( test) Ql (U)NegativeGuernsey Memorial HospitalThyrotropin [Units/volume] in Serum or PlasmaOrdered By: Peter Ahuamda on 87-96-7570RWL Qn0.15 m[IU]/L0.45-5.33[facility] HospitalThyroxine (T4) free [Mass/volume] in Serum or PlasmaOrdered By: Peter Ahumada on 27-78-4532Qwuq T4 [Mass/Vol]0.97 ng/dL0.61-1.12[facility] HospitalAlanine aminotransferase [Enzymatic activity/volume] in Serum or PlasmaOrdered By: Peter Ahumada on 97-93-9715JXX [Catalytic activity/Vol]7 U/L7-52[facility] HospitalAlbumin [Mass/volume] in Serum or Plasma by Bromocresol green (BCG) dye binding methoOrdered By: Peter Ahumada on 64-09-7326Uaeghqo BCG dye [Mass/Vol]3.8 g/dL3.5-5.7FKettering HealthAlkaline phosphatase [Enzymatic activity/volume] in Serum or PlasmaOrdered By: Peter Ahumada on 35-24-2033CYR [Catalytic activity/Vol]54 U/Y66-703MimstwqfeGuernsey Memorial HospitalAspartate aminotransferase [Enzymatic activity/volume] in Serum or Plasma Ordered By: Peter Ahumada on 34-35-8793ROJ [Catalytic activity/Vol]17 U/L13-39 [facility] HospitalBasophils Auto (Bld) [#/Vol]Ordered By: Peter Ahumada on 79-41-8299Lzzsbkets (Bld) [#/Vol]0.1 10*3/uL0.0-0.2FKettering HealthBasophils/100 WBC Auto (Bld)Ordered By: Peter Ahumada on 05-25-2023 Basophils/100 WBC (Bld)1.1 %.[facility] HospitalBilirubin.total [Mass/volume] in Serum or PlasmaOrdered By: Peter Ahumada on 57-15-0725Tnfwqzzgo [Mass/Vol]0.3 mg/dL0.3-1.0[facility] HospitalCalcium [Mass/volume] in Serum or PlasmaOrdered By: Peter Ahumada on 20-73-8664Vpzexat [Mass/Vol]8.8 mg/dL8.6-10.3FKettering HealthCarbon dioxide, total [Moles/volume] in Serum or PlasmaOrdered By: Peter Ahumada on 01-91-7577OL2 [Moles/Vol]29.9 mmol/L21.0-31.0[facility] HospitalChloride [Moles/volume] in Serum or PlasmaOrdered By: Peter Ahumada on 33-49-6391Pmsbpzbi [Moles/Vol]107 mmol/N73-507WgjiydjspGuernsey Memorial HospitalCholesterol [Mass/volume] in Serum or PlasmaOrdered By: Pteer Ahumada on 12-70-0630Wseahhawzov [Mass/Vol]181 mg/eW508-383SbfriokdtGuernsey Memorial HospitalComment on above:Chol less than 200 mg/dl low riskChol 201-239 mg/dl borderline riskChol 240 mg/dl and greater high riskCholesterol in LDL Calc [Mass/Vol]Ordered By: Peter Ahumada on 97-71-8304Zulsgiusvlm in LDL [Mass/Vol]115 mg/dL0-100[facility] HospitalComment on above:LDL ATP III CLASSIFICATIONLDL less than 100 mg/dL OptimalLDL 100-129 mg/dL Near or above fvgylwoDZZ440-150 mg/dL Borderline highLDL 160-189 mg/dL HighLDL greater than 189 mg/dL Very highCholesterol in VLDL Calc [Mass/Vol]Ordered By: Peter Ahumada on 57-40-1542Drohctucavu in VLDL [Mass/Vol]22 mg/dLGuernsey Memorial HospitalCreatinine [Mass/volume] in Serum or PlasmaOrdered By: Peter Ahumada on 99-08-4161Wmrnrmrdie [Mass/Vol]0.59 mg/dL0.60-1.20[facility] HospitalEosinophils Auto (Bld) [#/Vol] Ordered By: Peter Ahumada on 03-32-2460Vtqbefbzsnj (Bld) [#/Vol]0.1 10*3/uL0.0-0.45 [facility] HospitalEosinophils/100 WBC Auto (Bld)Ordered By: Peter Ahumada on 01-75-5113Gtyvgnaqtvp/100 WBC (Bld)1.9 %.[facility] HospitalErythrocyte distribution width Auto (RBC) [Ratio]Ordered By: Peter Ahumada on 29-47-7681Ysxzeuxknta distribution width (RBC) [Ratio]13.7 %11.9-15.3FKettering HealthGlobulin Calc (S) [Mass/Vol]Ordered By: Peter Ahumada on 71-39-2387Dwjaanxi (S) [Mass/Vol]2.7 g/dLGuernsey Memorial Hospital Glucose [Mass/volume] in Serum or PlasmaOrdered By: Peter Ahumada on 05-25-2023 Glucose [Mass/Vol]87 mg/jY46-342GsohctgjsGuernsey Memorial HospitalComment on above:ADA recommended reference rangeRandom Glucose Reference Range is dependent on time and content of last meal. Glucose of more than 200 mg/dL in a nonstressed, ambulatory subject supports the diagnosisof Diabetes Mellitus. Glucose mean value [Mass/volume] in Blood Estimated from glycated hemoglobin Ordered By: Peter Ahumada on 60-64-7550Pxsmyas glucose Estimated from glycated hemoglobin (Bld) [Mass/Vol]126 mg/dLGuernsey Memorial HospitalHematocrit Auto (Bld) [Volume fraction]Ordered By: Peter Ahumada on 39-02-7834Yilttsdple (Bld) [Volume fraction]36.2 %34.0-46.4FKettering HealthHemoglobin A1c percentageOrdered By: Peter Ahumada on 82-48-0327MbG2q (Bld) [Mass fraction]6.0 % 4.3-5.6FKettering HealthComment on above:Increased risk for diabetes: 5.7 - 6.4diabetes: >6.4glycemic control for adults with diabetes: &l t;7.0Hemoglobin [Mass/volume] in BloodOrdered By: Peter Ahumada on 05-25-2023 Hemoglobin (Bld) [Mass/Vol]11.8 g/dL11.8-15.4[facility] Leukocytes [#/volume] corrected for nucleated erythrocytes in Blood by Automated counOrdered By: Peter Ahumada on 26-85-4448RBO corrected for nucl RBC Auto (Bld) [#/Vol]6.1 10*3/uL3.8-11.6FKettering HealthLymphocytes Auto (Bld) [#/Vol]Ordered By: Peter Ahumada on 45-64-5173Ylctlxclbpb (Bld) [#/Vol]2.0 10*3/uL1.00-4.8[facility] HospitalLymphocytes/100 WBC Auto (Bld) Ordered By: Peter Ahumada on 38-17-0382Wzwlkxplson/100 WBC (Bld)32.1 %.[facility] HospitalH Auto (RBC) [Entitic mass]Ordered By: Peter Ahumada on 73-83-3271LHK (RBC) [Entitic mass]27.3 pg24.7-34.3FKettering HealthMCHC Auto (RBC) [Mass/Vol]Ordered By: Peter Ahumada on 26-85-0812JZDP (RBC) [Mass/Vol]32.7 g/dL32.0-35.0[facility] HospitalMCV Auto (RBC) [Entitic vol]Ordered By: Peter Ahumada on 76-94-4937HIR (RBC) [Entitic vol]83.5 fL 80-100[facility] HospitalMonocytes Auto (Bld) [#/Vol]Ordered By: Peter Ahumada on 28-12-7350Tveiunmgy (Bld) [#/Vol]0.3 10*3/uL0.0-0.8[facility] HospitalMonocytes/100 WBC Auto (Bld)Ordered By: Peter Ahumada on 56-98-0399Ysottbipc/100 WBC (Bld)5.2 %.[facility] Neutrophils Auto (Bld) [#/Vol]Ordered By: Peter Ahumada on 82-55-6785Sgfbxsnvoyx (Bld) [#/Vol]3.6 10*3/uL1.8-7.7FKettering HealthNeutrophils/100 WBC Auto (Bld)Ordered By: Peter Ahumada on 36-99-9535Jdouryhfwnc/100 WBC (Bld)59.7 %.[facility] HospitalNo Panel InformationOrdered By: Peter Ahumada on 36-77-6769Qqbotkuye GFR (CKD-EPI)> 60.0 mL/MinGuernsey Memorial Hospital Pharmacy Creatinine Clearance (ChemN/[facility] HospitalNucleated erythrocytes [Presence] in Blood by Automated countOrdered By: Peter Ahumada on 03-58-4022Blwtexgee RBC Auto Ql (Bld)0.1 /100{WBC}0-0.5FKettering HealthPlatelet mean volume Auto (Bld) [Entitic vol]Ordered By: Peter Ahumada on 19-13-7442Ymmcgcrx mean volume (Bld) [Entitic vol]8.5 fL6.3-10.7 [facility] HospitalPlatelets Auto (Bld) [#/Vol]Ordered By: Peter Ahumada on 72-93-8202Swlkrevpe (Bld) [#/Vol]364 10*3/pD731-749RhuamsqjfGuernsey Memorial HospitalPotassium [Moles/volume] in Serum or PlasmaOrdered By: Peter Ahumada on 56-46-9408Whiivhrwu [Moles/Vol]4.0 mmol/L3.5-5.1FKettering HealthProtein [Mass/volume] in Serum or PlasmaOrdered By: Peter Ahumada on 50-07-5341Zjlzqth [Mass/Vol]6.5 g/dL6.4-8.9[facility] HospitalRBC Auto (Bld) [#/Vol]Ordered By: Peter Ahumada on 63-77-9880NJC (Bld) [#/Vol]4.34 10*6/uL3.60-5.00[facility] Hospitalerum or plasma albumin/globulin mass ratioOrdered By: Peter Ahumada on 78-56-0099Yvfejqx/Globulin [Mass ratio]1.4 {ratio}[facility] Hospitalerum or plasma anion gap determinationOrdered By: Peter Ahumada on 15-05-3446Uoend gap [Moles/Vol]10.1 mmol/L6.0-15.0[facility] Hospitalerum or plasma high density lipoprotein (HDL) cholesterol measurementOrdered By: Peter Ahumada on 05-25-2023 Cholesterol in HDL [Mass/Vol]44 mg/aP12-26XkzsfjwokGuernsey Memorial Hospital Comment on above:HDL CHOL ATP-III CLASSIFICATION Cardiovascular RiskHDL > or equal to 60 mg/dL LOWHDL < 40 mg/dL HIGHSerum or plasma total cholesterol/high density lipoprotein (HDL) cholesterol mass ratOrdered By: Peter Ahumada on 93-59-4511Sougxnyxgaj.total/Cholesterol in HDL [Mass ratio]4.1 {ratio}<5.0 [facility] Hospitalodium [Moles/volume] in Serum or PlasmaOrdered By: Peter Ahumada on 95-38-4775Gwhbzz [Moles/Vol]143 mmol/N349-551PolieevrlGuernsey Memorial HospitalThyrotropin [Units/volume] in Serum or PlasmaOrdered By: Peter Ahumada on 01-96-3902HOK Qn0.73 m[IU]/L0.45-5.33[facility] HospitalThyroxine (T4) free [Mass/volume] in Serum or PlasmaOrdered By: Peter Ahumada on 40-93-8449Nfsw T4 [Mass/Vol]0.79 ng/dL0.61-1.12[facility] HospitalTriglyceride [Mass/volume] in Serum or PlasmaOrdered By: Peter Ahumada on 66-52-7871Djinmpiuhkdj [Mass/Vol]112 mg/dL0-149[facility] Comment on above:TRIG ATP III CLASSIFICATIONTRIG less than 150 mg/dL NormalTRIG 150-199 mg/dL Borderline highTRIG 200-500 mg/dL High TRIG greater than 500 mg/dL Very highStandard traceable to the Center for Disease Conrtrol and Prevention (CDC) test method.Urea nitrogen [Mass/volume] in Serum or PlasmaOrdered By: Peter Ahumada on 65-09-9503Qfbq nitrogen [Mass/Vol]10 mg/dL7-25[facility] HospitalWBC Auto (Bld) [#/Vol]Ordered By: Peter Ahumada on 10-57-7368HIC (Bld) [#/Vol]6.1 10*3/uL3.8-11.6FKettering HealthThyrotropin [Units/volume] in Serum or PlasmaOrdered By: Peter Ahumada on 08-39-7603EQA Qn2.20 m[IU]/L0.45-5.33[facility] HospitalThyroxine (T4) free [Mass/volume] in Serum or PlasmaOrdered By: Peter Ahumada on 00-15-1438Utiv T4 [Mass/Vol]0.62 ng/dL0.61-1.12[facility] HospitalAlanine aminotransferase [Enzymatic activity/volume] in Serum or PlasmaOrdered By: Alba Wrenimore on 45-08-6902HSO [Catalytic activity/Vol]7 U/L7-52[facility] HospitalAlbumin [Mass/volume] in Serum or Plasma by Bromocresol green (BCG) dye binding methoOrdered By: Alba Bullimore on 85-68-8144Fbzwupg BCG dye [Mass/Vol]3.7 g/dL3.5-5.7FKettering HealthAlkaline phosphatase [Enzymatic activity/volume] in Serum or PlasmaOrdered By: Alba Bullimore on 37-15-0197OBH [Catalytic activity/Vol]47 U/J42-573ZigfurhzgGuernsey Memorial HospitalAspartate aminotransferase [Enzymatic activity/volume] in Serum or PlasmaOrdered By: Alba Bullimore on 79-79-2833CEX [Catalytic activity/Vol]12 U/X90-33EnbxiisxjGuernsey Memorial HospitalAutomated erythrocytes count in urine sediment (number/area)Ordered By: Albayehuda Wrenbaltimore va medical center on 11-01-2022 RBC Auto (Urine sed) [#/Area]1-2 [HPF]0-4FK[facility] Comment on above:--- 11/01/22 1049 ---Ur RBC previously reported as: 1-2 /HPFMicroscopic results may be affected dueto low specimen volume.Automated leukocytes count in urine sediment (number/area)Ordered By: Albayehuda Wrenbaltimore va medical center on 33-33-3278FFP Auto (Urine sed) [#/Area]1-2 [HPF]0-4FKettering HealthBasophils Auto (Bld) [#/Vol]Ordered By: Alba Holgerbaltimore va medical center on 11-01-2022 Basophils (Bld) [#/Vol]0.1 10*3/uL0.0-0.2FK[facility] Basophils/100 WBC Auto (Bld)Ordered By: [facility] on 11-01-2022 Basophils/100 WBC (Bld)0.9 %.[facility] HospitalBilirubin Test strip Ql (U)Ordered By: Albayehuda Ibrahimcincinnati shriners hospital on 63-36-6799Djeubyiyt Ql (U)Negative NegativeGuernsey Memorial HospitalBilirubin.direct [Mass/volume] in Serum or PlasmaOrdered By: Alba Bullimore on 89-33-7088Ndzmuimyv.direct [Mass/Vol] 0.10 mg/dL0.03-0.18FKettering HealthBilirubin.total [Mass/volume] in Serum or PlasmaOrdered By: Alba Bullimore on 11-01-2022 Bilirubin [Mass/Vol]0.3 mg/dL0.3-1.0[facility] HospitalCalcium [Mass/volume] in Serum or PlasmaOrdered By: Alba Bullimore on 11-01-2022 Calcium [Mass/Vol]8.8 mg/dL8.6-10.3FKettering HealthCarbon dioxide, total [Moles/volume] in Serum or PlasmaOrdered By: Alba Bullimore on 70-58-0830RH4 [Moles/Vol]27.6 mmol/L21.0-31.0[facility] Chloride [Moles/volume] in Serum or PlasmaOrdered By: [facility] [place] on 87-73-2783Tutvenjr [Moles/Vol]105 mmol/P16-410XkgttzvuyGuernsey Memorial Hospital Choriogonadotropin.beta subunit [Units/volume] in Serum or PlasmaOrdered By: Alba Patricecincinnati shriners hospital on 47-25-4239QRY.beta subunit Qnm[IU]/mLGuernsey Memorial HospitalComment on above:Approximate Approximate hCG Gestational Age Range (mIU/ml) (weeks)0.2-1 5-50 1-2 50-500 2-3 100-5,000 3-4 500-10,000 4-5 1,000- 50,000 5-6 10,000-100,000 6-8 15,000-200,000 8-12 10,000-100,000Color Auto (U) Ordered By: Alba Marshall on 50-95-7456Foquv (U)YellowYellowGuernsey Memorial HospitalCreatinine [Mass/volume] in Serum or PlasmaOrdered By: Alba Wrenimlila on 84-74-1632Dabnpamvux [Mass/Vol]0.60 mg/dL0.60-1.20Guernsey Memorial HospitalEosinophils Auto (Bld) [#/Vol]Ordered By: Albayehuda Marshall on 26-89-2884Dmxwngdalud (Bld) [#/Vol]0.2 10*3/uL0.0-0.45Guernsey Memorial HospitalEosinophils/100 WBC Auto (Bld)Ordered By: [facility] on 30-01-1251Yjszqrolzfx/100 WBC (Bld)3.0 %.Guernsey Memorial HospitalErythrocyte distribution width Auto (RBC) [Ratio]Ordered By: [facility] on 13-31-0195Wuqzhzznxsj distribution width (RBC) [Ratio]13.2 % 11.9-15.3FKettering HealthGlobulin Calc (S) [Mass/Vol]Ordered By: [facility] on 82-90-1106Uqwluijb (S) [Mass/Vol]3.1 g/dLGuernsey Memorial HospitalGlucose [Mass/volume] in Serum or PlasmaOrdered By: [facility] on 90-10-6643Hkdbiis [Mass/Vol]95 mg/iW11-157ChorxwhwjGuernsey Memorial HospitalComment on above:ADA recommended reference rangeRandom Glucose Reference Range is dependent on time and content of last meal. Glucose of more than 200 mg/dL in a nonstressed, ambulatory subject supports the diagnosisof Diabetes Mellitus.Hematocrit Auto (Bld) [Volume fraction]Ordered By: [facility] on 89-30-7464Xpyvznyxmi (Bld) [Volume fraction]36.8 %34.0-46.4 [facility] HospitalHemoglobin [Mass/volume] in BloodOrdered By: [facility] on 35-33-8405Zrfpsycifi (Bld) [Mass/Vol]12.5 g/dL11.8-15.4 [facility] HospitalKetones Auto test strip (U) [Mass/Vol]Ordered By: [facility] on 28-13-8509Yyltufn (U) [Mass/Vol]NegativeNegative [facility] HospitalLaboratory - UrinalysisOrdered By: [facility] on 58-78-2476Tmenllw casts LM Ql (Urine sed)0-8 [LPF]0-8[facility] HospitalLeukocytes [#/volume] corrected for nucleated erythrocytes in Blood by Automated counOrdered By: Alba Bullimore on 57-61-9842PSL corrected for nucl RBC Auto (Bld) [#/Vol]7.8 10*3/uL3.8-11.6 [facility] HospitalLymphocytes Auto (Bld) [#/Vol]Ordered By: Alba Bullimore on 04-11-9729Ophddgiuchj (Bld) [#/Vol]1.5 10*3/uL1.00-4.8 [facility] HospitalLymphocytes/100 WBC Auto (Bld)Ordered By: Alba Bullimore on 04-53-1912Sbyttevgeji/100 WBC (Bld)19.6 %.[facility] (RBC) [Entitic mass]Ordered By: Alba Bullimore on 35-75-6179ZXE (RBC) [Entitic mass]28.3 pg24.7-34.3FKettering HealthMCHC Auto (RBC) [Mass/Vol]Ordered By: Alba Bullimore on 02-21-8116AZKW (RBC) [Mass/Vol]33.9 g/dL32.0-35.0[facility] HospitalMCV Auto (RBC) [Entitic vol]Ordered By: Alba Bullimore on 22-98-2464CSW (RBC) [Entitic vol]83.3 fO40-376FmdljtxhsGuernsey Memorial HospitalMonocyte distribution width [Entitic volume] in Blood by AutomatedOrdered By: Alba Bullimore on 11-01-2022 Monocyte distribution width Auto (Bld) [Entitic vol]17.79 %0.00-20.00[facility] HospitalMonocytes Auto (Bld) [#/Vol]Ordered By: Alba Bullimore on 54-84-6917Qupcdmbzw (Bld) [#/Vol]0.5 10*3/uL0.0-0.8[facility] HospitalMonocytes/100 WBC Auto (Bld)Ordered By: Alba Bullimore on 11-01-2022 Monocytes/100 WBC (Bld)6.9 %.[facility] HospitalNeutrophils Auto (Bld) [#/Vol]Ordered By: Alba Bullimore on 20-25-0790Zgsymitttvt (Bld) [#/Vol] 5.4 10*3/uL1.8-7.7FKettering HealthNeutrophils/100 WBC Auto (Bld)Ordered By: Alba Bullimore on 37-33-8626Bdiqbbkhkmt/100 WBC (Bld)69.6 %. [facility] HospitalNitrite Test strip Ql (U)Ordered By: Alba Bullimore on 81-17-7285Qfflhub Ql (U)NegativeNegativeGuernsey Memorial HospitalNo Panel InformationOrdered By: Albayehuda Wrenimlila on 78-15-4524Sctnmluzf GFR (CKD-EPI)> 60.0 mL/MinGuernsey Memorial HospitalPharmacy Creatinine Clearance (Tjdi207.12[facility] HospitalNucleated erythrocytes [Presence] in Blood by Automated countOrdered By: Abla Bullimore on 11-01-2022 Nucleated RBC Auto Ql (Bld)0.1 /100{WBC}0-0.5FK[facility]tering Health Platelet mean volume Auto (Bld) [Entitic vol]Ordered By: Alba Bullimore on 99-33-8282Kezzdjnt mean volume (Bld) [Entitic vol]7.5 fL6.3-10.7FKettering HealthPlatelets Auto (Bld) [#/Vol]Ordered By: Alba Bullimore on 12-11-4866Oqivxmhyw (Bld) [#/Vol]278 10*3/bS932-601ClztpkzfiGuernsey Memorial HospitalPotassium [Moles/volume] in Serum or PlasmaOrdered By: Alba Bullimore on 82-42-0395Xjphgkwyy [Moles/Vol]4.3 mmol/L3.5-5.1FKettering HealthProtein Auto test strip (U) [Mass/Vol]Ordered By: Alba Bullimore on 25-10-4286Wirbgzl (U) [Mass/Vol]NegativeNegativeGuernsey Memorial HospitalProtein [Mass/volume] in Serum or PlasmaOrdered By: Alba Bullimore on 45-72-1590Yscrgay [Mass/Vol]6.8 g/dL6.4-8.9[facility] HospitalRBC Auto (Bld) [#/Vol]Ordered By: Alba Marshall on 54-70-4981VTN (Bld) [#/Vol] 4.41 10*6/uL3.60-5.00[facility] Hospitalerum or plasma albumin/globulin mass ratioOrdered By: [facility] on 11-01-2022 Albumin/Globulin [Mass ratio]1.2 {ratio}[facility] Hospitalerum or plasma anion gap determinationOrdered By: Albayehuda Ibrahimcincinnati shrin[facility] hospital on 82-25-2642Jgunx gap [Moles/Vol]10.7 mmol/L6.0-15.0[facility] Hospitalerum or plasma non-glucuronidated bilirubin measurement (mass/volume)Ordered By: [facility]ayehuda [facility]renbalt[facility] on 13-32-8182Sjtcnxjes.indirect [Mass/Vol]0.2 mg/dLMercy Health Lorain Hospitalodium [Moles/volume] in Serum or PlasmaOrdered By: Alba Marshall on 36-57-4752Vhwjxc [Moles/Vol]139 mmol/N021-007OfzvabsiuMercy Health Lorain Hospitalpecific gravity Auto test strip (U) [Rel density]Ordered By: [facility]ayehuda [facility]renb[facility] on 78-45-5609Rgzjcenu gravity (U) [Rel density]1.0211.001-1.030 [facility] Hospitalquamous epithelial cells detection in urine sediment by light microscopyOrdered By: Alba Ibrahimcincinnati shriners hospital on 69-28-5392Ynjvrfyhjq cells.squamous LM Ql (Urine sed)3-4 [HPF]0-2FK[facility] Health Urea nitrogen [Mass/volume] in Serum or PlasmaOrdered By: Alba Ibrahimcincinnati shriners hospital on 32-46-6934Dkdh nitrogen [Mass/Vol]7 mg/dL7-25[facility] Urine bacteria detection by automated methodOrdered By: Alba Ibrahimcincinnati shriners hospital on 69-66-8164Dxqbappr Auto Ql (U)1+None SeenGuernsey Memorial Hospital Comment on above:--- 11/01/22 1050 ---Ur Bact previously reported as: 1+ H Microscopic results may be affected due to low specimen volume.Urine clarity by refractometry automatedOrdered By: Alba Marshall on 58-77-2548Yjkatla Refractometry automated (U)ClearCleAultman Orrville HospitalUrine glucose measurement by automated test strip (mass/volume)Ordered By: Alba Marshall on 06-28-4912Lizxgmg Auto test strip (U) [Mass/Vol]Normal mg/dLNoMarymount HospitalUrine hemoglobin detection by automated test stripOrdered By: Alba Marshall on 43-96-9381Wbyrwmifzn Auto test strip Ql (U) 1+NegativeGuernsey Memorial HospitalUrine leukocyte esterase detection by automated test stripOrdered By: Alba Marshall on 17-42-6034Xrxdocckl esterase Auto test strip Ql (U)NegativeNegativeGuernsey Memorial Hospital Urobilinogen Auto test strip (U) [Mass/Vol]Ordered By: Alba Marshall on 97-37-8091Gwmzxbuuxyqh (U) [Mass/Vol]Normal mg/dLWilson Memorial HospitalWBC Auto (Bld) [#/Vol]Ordered By: Alba Marshall on 11-01-2022 WBC (Bld) [#/Vol]7.8 10*3/uL3.8-11.6FKettering HealthYeast detection in urine sediment by light microscopyOrdered By: Alba Marshall on 77-27-6493Xkjtg LM Ql (Urine sed)None seen [HPF]None SeenGuernsey Memorial HospitalComment on above:--- 11/01/22 1050 ---Ur Yeast previously reported as: None Seen /HPFMicroscopic results may be affected due to low specimen volume.--- 11/01/22 1058 ---Ur Yeast previously reported as: /HPF--- 11/01/22 1050 ---Ur Yeast previously reported as: None Seen /HPFMicroscopic results may be affected due tolow specimen volume.pH Auto test strip (U)Ordered By: Alba Marshall on 47-71-9393lV (U)6.5 [pH]5.0-9.0[facility] Alanine aminotransferase [Enzymatic activity/volume] in Serum or PlasmaOrdered By: Peter Ahumada on 67-30-7686HXI [Catalytic activity/Vol]8 U/L7-52[facility] HospitalAlbumin [Mass/volume] in Serum or Plasma by Bromocresol green (BCG) dye binding methoOrdered By: Peter Ahumada on 70-71-0355Nunqgjn BCG dye [Mass/Vol]3.8 g/dL3.5-5.7FKettering HealthAlkaline phosphatase [Enzymatic activity/volume] in Serum or PlasmaOrdered By: Peter Ahumada on 27-08-2194EAA [Catalytic activity/Vol]49 U/U00-195NvsgjxzkgGuernsey Memorial HospitalAspartate aminotransferase [Enzymatic activity/volume] in Serum or Plasma Ordered By: Peter Ahumada on 37-22-6793GWE [Catalytic activity/Vol]16 U/L13-39 [facility] HospitalBasophils Auto (Bld) [#/Vol]Ordered By: Pteer Ahumada on 70-33-5500Aycxrpboi (Bld) [#/Vol]0.1 10*3/uL0.0-0.2FKettering HealthBasophils/100 WBC Auto (Bld)Ordered By: Peter Ahumada on 10-31-2022 Basophils/100 WBC (Bld)0.9 %.[facility] HospitalBilirubin.total [Mass/volume] in Serum or PlasmaOrdered By: Peter Ahumada on 85-96-4940Gehribszu [Mass/Vol]0.3 mg/dL0.3-1.0[facility] HospitalCalcium [Mass/volume] in Serum or PlasmaOrdered By: Peter Ahumada on 10-26-6067Fbwkhfs [Mass/Vol]9.0 mg/dL8.6-10.3FKettering HealthCarbon dioxide, total [Moles/volume] in Serum or PlasmaOrdered By: Peter Ahumada on 12-92-4959NQ0 [Moles/Vol]25.8 mmol/L21.0-31.0[facility] HospitalChloride [Moles/volume] in Serum or PlasmaOrdered By: Peter Ahumada on 69-30-1156Iqfhaaua [Moles/Vol]106 mmol/J18-219FyacdujtyGuernsey Memorial HospitalCholesterol [Mass/volume] in Serum or PlasmaOrdered By: Peter Ahumada on 71-25-9760Orwkupacmdo [Mass/Vol]152 mg/yO016-330WrszobbjpGuernsey Memorial HospitalComment on above:Chol less than 200 mg/dl low riskChol 201-239 mg/dl borderline riskChol 240 mg/dl and greater high riskCholesterol in LDL Calc [Mass/Vol]Ordered By: Peter Ahumada on 58-91-4417Pdnyeasmrwv in LDL [Mass/Vol]74 mg/dL0-100[facility] HospitalComment on above:LDL ATP III CLASSIFICATIONLDL less than 100 mg/dL OptimalLDL 100-129 mg/dL Near or above wvqlpdnAGO535-287 mg/dL Borderline highLDL 160-189 mg/dL HighLDL greater than 189 mg/dL Very highCholesterol in VLDL Calc [Mass/Vol]Ordered By: Peter Ahumada on 53-42-3389Zjlabaifbaw in VLDL [Mass/Vol]25 mg/dLGuernsey Memorial HospitalCreatinine [Mass/volume] in Serum or PlasmaOrdered By: Peter Ahumada on 23-08-0004Ixyuojovye [Mass/Vol]0.55 mg/dL0.60-1.20[facility] HospitalEosinophils Auto (Bld) [#/Vol] Ordered By: Peter Ahumada on 35-46-5873Boisnmiycsv (Bld) [#/Vol]0.2 10*3/uL0.0-0.45 [facility] HospitalEosinophils/100 WBC Auto (Bld)Ordered By: Peter Ahumada on 08-88-2063Wlppmfrmwdv/100 WBC (Bld)2.9 %.[facility] HospitalErythrocyte distribution width Auto (RBC) [Ratio]Ordered By: Peter Ahumada on 41-67-4818Zfopibsrrih distribution width (RBC) [Ratio]13.3 %11.9-15.3FKettering HealthGlobulin Calc (S) [Mass/Vol]Ordered By: Peter Ahumada on 29-97-0135Ujfcgfxm (S) [Mass/Vol]2.8 g/dLGuernsey Memorial Hospital Glucose [Mass/volume] in Serum or PlasmaOrdered By: Peter Ahumada on 10-31-2022 Glucose [Mass/Vol]98 mg/rY78-366MjbhonqivGuernsey Memorial HospitalComment on above:ADA recommended reference rangeRandom Glucose Reference Range is dependent on time and content of last meal. Glucose of more than 200 mg/dL in a nonstressed, ambulatory subject supports the diagnosisof Diabetes Mellitus. Hematocrit Auto (Bld) [Volume fraction]Ordered By: Peter Ahumada on 10-31-2022 Hematocrit (Bld) [Volume fraction]37.3 %34.0-46.4FKettering HealthHemoglobin [Mass/volume] in BloodOrdered By: Peter Ahumada on 10-31-2022 Hemoglobin (Bld) [Mass/Vol]12.4 g/dL11.8-15.4[facility] Leukocytes [#/volume] corrected for nucleated erythrocytes in Blood by Automated counOrdered By: Peter Ahumada on 46-10-1521DCQ corrected for nucl RBC Auto (Bld) [#/Vol]8.2 10*3/uL3.8-11.6FK[facility]tering HealthLymphocytes Auto (Bld) [#/Vol]Ordered By: Peter Ahumada on 83-37-3062Gkcejhzvaqz (Bld) [#/Vol]1.8 10*3/uL1.00-4.8[facility] HospitalLymphocytes/100 WBC Auto (Bld) Ordered By: Peter Ahumada on 36-32-7204Nwjjnkoxbar/100 WBC (Bld)21.7 %.[facility] HospitalMCH Auto (RBC) [Entitic mass]Ordered By: Peter Ahumada on 50-06-0029YJV (RBC) [Entitic mass]28.0 pg24.7-34.3FKettering HealthMCHC Auto (RBC) [Mass/Vol]Ordered By: Peter Ahumada on 38-43-8052YPDA (RBC) [Mass/Vol]33.3 g/dL32.0-35.0[facility] HospitalMCV Auto (RBC) [Entitic vol]Ordered By: Peter Ahumada on 24-43-5062XPL (RBC) [Entitic vol]84.1 fL 80-100[facility] HospitalMonocytes Auto (Bld) [#/Vol]Ordered By: Peter Ahumada on 10-01-9546Iuxdalwmp (Bld) [#/Vol]0.5 10*3/uL0.0-0.8[facility] HospitalMonocytes/100 WBC Auto (Bld)Ordered By: Peter Ahumada on 28-21-1156Preixlnjg/100 WBC (Bld)6.2 %.[facility] Neutrophils Auto (Bld) [#/Vol]Ordered By: Peter Ahumada on 44-50-6033Ybrztljlgia (Bld) [#/Vol]5.6 10*3/uL1.8-7.7FKettering HealthNeutrophils/100 WBC Auto (Bld)Ordered By: Peter Ahumada on 85-76-0959Sukqitxhook/100 WBC (Bld)68.3 %.[facility] HospitalNo Panel InformationOrdered By: Peter Ahumada on 13-39-6677Cvsukfqcz GFR (CKD-EPI)> 60.0 mL/MinGuernsey Memorial Hospital Pharmacy Creatinine Clearance (ChemN/AFKettering HealthNucleated erythrocytes [Presence] in Blood by Automated countOrdered By: Peter Auhmada on 51-28-6087Zhhkzpvqr RBC Auto Ql (Bld)0.1 /100{WBC}0-0.5FKettering HealthPlatelet mean volume Auto (Bld) [Entitic vol]Ordered By: Peter Ahumada on 87-95-2739Txqhaczv mean volume (Bld) [Entitic vol]8.8 fL6.3-10.7 [facility] HospitalPlatelets Auto (Bld) [#/Vol]Ordered By: Peter Ahumada on 00-86-0571Vlytrnllh (Bld) [#/Vol]305 10*3/pL563-235ZuywbomhqGuernsey Memorial HospitalPotassium [Moles/volume] in Serum or PlasmaOrdered By: Peter Ahumada on 44-89-9465Jdxlxvltq [Moles/Vol]4.2 mmol/L3.5-5.1FKettering HealthProtein [Mass/volume] in Serum or PlasmaOrdered By: Peter Ahumada on 06-30-4675Eirttxi [Mass/Vol]6.6 g/dL6.4-8.9[facility] HospitalRBC Auto (Bld) [#/Vol]Ordered By: Peter Ahumada on 72-34-8233ABQ (Bld) [#/Vol]4.44 10*6/uL3.60-5.00[facility] Hospitalerum or plasma albumin/globulin mass ratioOrdered By: Peter Ahumada on 83-96-2758Fowhmql/Globulin [Mass ratio]1.4 {ratio}[facility] Hospitalerum or plasma anion gap determinationOrdered By: Peter Ahumada on 24-70-6027Vkmrd gap [Moles/Vol]11.4 mmol/L6.0-15.0[facility] Hospitalerum or plasma high density lipoprotein (HDL) cholesterol measurementOrdered By: Peter Ahumada on 10-31-2022 Cholesterol in HDL [Mass/Vol]53 mg/nE50-43DtxoileknGuernsey Memorial Hospital Comment on above:HDL CHOL ATP-III CLASSIFICATION Cardiovascular RiskHDL > or equal to 60 mg/dL LOWHDL < 40 mg/dL HIGHSerum or plasma total cholesterol/high density lipoprotein (HDL) cholesterol mass ratOrdered By: Peter Ahumada on 94-58-2724Bhlumiuywqk.total/Cholesterol in HDL [Mass ratio]2.9 {ratio}<5.0 [facility] Hospitalodium [Moles/volume] in Serum or PlasmaOrdered By: Peter Ahumada on 09-58-5106Dceser [Moles/Vol]139 mmol/A438-630KqxuqrfvqGuernsey Memorial HospitalThyrotropin [Units/volume] in Serum or PlasmaOrdered By: Peter Ahumada on 53-93-0108HZM Qn0.61 m[IU]/L0.45-5.33[facility] HospitalThyroxine (T4) free [Mass/volume] in Serum or PlasmaOrdered By: Peter Ahumada on 07-12-8027Aqut T4 [Mass/Vol]0.76 ng/dL0.61-1.12[facility] HospitalTriglyceride [Mass/volume] in Serum or PlasmaOrdered By: Peter Ahumada on 27-12-7612Myphevczmfcd [Mass/Vol]125 mg/dL0-149[facility] Comment on above:TRIG ATP III CLASSIFICATIONTRIG less than 150 mg/dL NormalTRIG 150-199 mg/dL Borderline highTRIG 200-500 mg/dL High TRIG greater than 500 mg/dL Very highStandard traceable to the Center for Disease Conrtrol and Prevention (CDC) test method.Urea nitrogen [Mass/volume] in Serum or PlasmaOrdered By: Peter Ahumada on 30-21-7594Ajjn nitrogen [Mass/Vol]6 mg/dL7-25[facility] HospitalWBC Auto (Bld) [#/Vol]Ordered By: Peter Ahumada on 63-09-4125YMR (Bld) [#/Vol]8.2 10*3/uL3.8-11.6FKettering HealthAlbumin [Mass/volume] in Serum or PlasmaOrdered By: Peter Ahumada on 12-73-9058Efmvobc [Mass/Vol]3.2 g/dL3.2-5.5FKettering HealthBasophils Auto (Bld) [#/Vol]Ordered By: Peter Ahumada on 29-04-5342Ygvdazmsh (Bld) [#/Vol]0.0 10*3/uL 0.0-0.2FKettering HealthBasophils/100 WBC Auto (Bld)Ordered By: Peter Ahumada on 48-85-4094Hcjbjbsmr/100 WBC (Bld)0.7 %.[facility] HospitalBlood hemoglobin measurement (mass/volume)Ordered By: Peter Ahumada on 37-42-4168Igmdpjzmmj (Bld) [Mass/Vol]12.3 g/dL11.8-15.4FKettering HealthBlood leukocytes automated count (number/volume)Ordered By: Peter Ahumada on 26-12-8827XWQ (Bld) [#/Vol]5.9 10*3/uL4.5-11.0[facility] HospitalCholesterol [Mass/volume] in Serum or PlasmaOrdered By: Peter Ahumada on 54-81-5120Vgcnmmtyral [Mass/Vol]159 mg/wQ309-054BtzjairmsGuernsey Memorial HospitalComment on above:Chol less than 200 mg/dl low riskChol 201-239 mg/dl borderline riskChol 240 mg/dl and greater high riskCholesterol in LDL Calc [Mass/Vol]Ordered By: Peter Ahumada on 52-42-1315Fcwcputdynh in LDL [Mass/Vol]84 mg/dL0-100[facility] HospitalComment on above:LDL ATP III CLASSIFICATIONLDL less than 100 mg/dL OptimalLDL 100-129 mg/dL Near or above kwvrwhgZTL746-958 mg/dL Borderline highLDL 160-189 mg/dL HighLDL greater than 189 mg/dL Very highCholesterol in VLDL Calc [Mass/Vol]Ordered By: Peter Ahumada on 92-43-8139Cgiraxucpse in VLDL [Mass/Vol]22 mg/dLGuernsey Memorial HospitalCreatinine and Glomerular filtration rate.predicted panel (S/P/Bld)Ordered By: Peter Ahumada on 91-32-7577Rzevykwtoi [Mass/Vol]0.58 mg/dL0.44-1.03[facility] HospitalEosinophils Auto (Bld) [#/Vol]Ordered By: Peter Ahumada on 67-56-4644Naqkrblyfbs (Bld) [#/Vol]0.1 10*3/uL0.0-0.45[facility] HospitalEosinophils/100 WBC Auto (Bld)Ordered By: Peter Ahumada on 04-19-2022 Eosinophils/100 WBC (Bld)2.4 %.[facility] HospitalErythrocyte distribution width Auto (RBC) [Ratio]Ordered By: Peter Ahumada on 04-19-2022 Erythrocyte distribution width (RBC) [Ratio]13.4 %11.9-15.3FKettering HealthEstimated glomerular filtration rate (GFR) non- Ordered By: Peter Ahumada on 03-26-8243WBX/1.73 sq M.predicted among non-blacks MDRD (S/P/Bld) [Vol rate/Area]> 60 mL/MinGuernsey Memorial Hospital Globulin Calc (S) [Mass/Vol]Ordered By: Peter Ahumada on 80-68-4790Xsfgywka (S) [Mass/Vol]3.1 g/dLGuernsey Memorial HospitalHematocrit Auto (Bld) [Volume fraction]Ordered By: Peter Ahumada on 24-59-1220Kwgzhbcpgo (Bld) [Volume fraction] 37.1 %34.0-46.4FKettering HealthLaboratory - Hematology and Cell countsOrdered By: Peter Ahumada on 55-00-9890Gxbebfacy RBC/100 WBC (Bld) [Ratio]0.1 %0-0.5FKettering HealthLymphocytes Auto (Bld) [#/Vol]Ordered By: Peter Ahumada on 03-46-2297Waofbodckup (Bld) [#/Vol]1.7 10*3/uL1.00-4.8 [facility] HospitalLymphocytes/100 WBC Auto (Bld)Ordered By: Peter Ahumada on 85-91-7282Gjqhthbxjob/100 WBC (Bld)28.8 %.[facility] Auto (RBC) [Entitic mass]Ordered By: Peter Ahumada on 28-27-4009MXO (RBC) [Entitic mass]27.8 pg24.7-34.3FKettering HealthMCHC Auto (RBC) [Mass/Vol]Ordered By: Peter Ahumada on 36-58-2805GXQT (RBC) [Mass/Vol]33.2 g/dL 32.0-35.0[facility] HospitalMCV Auto (RBC) [Entitic vol]Ordered By: Peter Ahumada on 30-95-8364DPZ (RBC) [Entitic vol]83.6 fD14-612RzsoyzuezGuernsey Memorial HospitalMonocytes Auto (Bld) [#/Vol]Ordered By: Peter Ahumada on 98-34-7104Cunkhlfzo (Bld) [#/Vol]0.4 10*3/uL0.0-0.8[facility] HospitalMonocytes/100 WBC Auto (Bld)Ordered By: Peter Ahumada on 04-19-2022 Monocytes/100 WBC (Bld)6.6 %.[facility] HospitalNeutrophils Auto (Bld) [#/Vol]Ordered By: Peter Ahumada on 12-91-7376Eltyudtemlu (Bld) [#/Vol]3.6 10*3/uL1.8-7.7FKettering HealthNeutrophils/100 WBC Auto (Bld) Ordered By: Peter Ahumada on 08-54-0140Orraunvzvxd/100 WBC (Bld)61.5 %.[facility] HospitalNo Panel InformationOrdered By: Peter Ahumada on 04-19-2022 Estimated GFR ()> 60 mL/MinGuernsey Memorial Hospital Comment on above:GFR estimated reference range: According to KDOQI guidelines, <60 ml/min/1.73m2 is sufficient todiagnose a patient with chronic kidney disease.Pharmacy Creatinine Clearance (ChemN/[facility] Platelet mean volume Auto (Bld) [Entitic vol]Ordered By: Peter Ahumada on 13-65-7191Hacfsmkw mean volume (Bld) [Entitic vol]8.9 fL6.3-10.7FKettering HealthPlatelets Auto (Bld) [#/Vol]Ordered By: Peter Ahumada on 49-42-5498Stjassmra (Bld) [#/Vol]319 10*3/lR352-557KjhkikvweGuernsey Memorial HospitalProtein [Mass/volume] in Serum or PlasmaOrdered By: Peter Ahumada on 90-24-1448Dfdrhco [Mass/Vol]6.3 g/dL6.1-7.9[facility] HospitalRBC Auto (Bld) [#/Vol]Ordered By: Peter Ahumada on 32-07-1301YXD (Bld) [#/Vol]4.43 10*6/uL3.60-5.00[facility] Hospitalerum or plasma alanine aminotransferase measurement without P-5'-P (enzymatic activiOrdered By: Peter Ahumada on 51-02-0968BLT No additional P-5'-P [Catalytic activity/Vol]9 U/L10-60 [facility] Hospitalerum or plasma albumin/globulin mass ratio Ordered By: Peter Ahumada on 08-64-5345Bzahfsu/Globulin [Mass ratio]1.0 {ratio} [facility] Hospitalerum or plasma alkaline phosphatase measurement (enzymatic activity/volume)Ordered By: Peter Ahumada on 72-44-0687DKE [Catalytic activity/Vol]41 U/S45-65TndejxnljMercy Health Lorain Hospitalerum or plasma anion gap determinationOrdered By: Peter Ahumada on 07-07-1732Jvmyg gap [Moles/Vol]13.9 mmol/L6.0-15.0[facility] Hospitalerum or plasma aspartate aminotransferase measurement (enzymatic activity/volume)Ordered By: Peter Ahumada on 08-56-0876FTO [Catalytic activity/Vol]15 U/X78-24JpgttimsfMercy Health Lorain Hospitalerum or plasma calcium measurement (mass/volume)Ordered By: Petre Ahumada on 64-37-1582Qttrvrq [Mass/Vol]8.8 mg/dL8.2-10.2FCleveland Clinic Mercy Hospitalerum or plasma chloride measurement (moles/volume) Ordered By: Peter Ahumada on 12-17-5956Qfhgwxed [Moles/Vol]100 mmol/L95-114 [facility] Hospitalerum or plasma glucose measurement (mass/volume)Ordered By: Peter Ahumada on 96-05-9041Apgeasi [Mass/Vol]87 mg/dL 70-100[facility] HospitalComment on above:ADA recommended reference rangeRandom Glucose Reference Range is dependent on time and content of last meal. Glucose of more than 200 mg/dL in a nonstressed, ambulatory subject supports the diagnosisof Diabetes Mellitus.Serum or plasma high density lipoprotein (HDL) cholesterol measurementOrdered By: Peter Ahumada on 04-19-2022 Cholesterol in HDL [Mass/Vol]53 mg/aM44-05JnlfgxwvpGuernsey Memorial Hospital Comment on above:HDL CHOL ATP-III CLASSIFICATION Cardiovascular RiskHDL > or equal to 60 mg/dL LOWHDL < 40 mg/dL HIGHSerum or plasma potassium measurement (moles/volume)Ordered By: Peter Ahumada on 18-46-6030Gtgosnora [Moles/Vol]3.9 mmol/L3.5-5.1FCleveland Clinic Mercy Hospitalerum or plasma sodium measurement (moles/volume)Ordered By: Peter Ahumada on 88-46-2193Trtblt [Moles/Vol]136 mmol/L 136-146Mer[facility] Hospitalerum or plasma total bilirubin measurement (mass/volume)Ordered By: Peter Ahumada on 42-98-0332Rezdvqprb [Mass/Vol]0.4 mg/dL0.3-1.2FCleveland Clinic Mercy Hospitalerum or plasma total carbon dioxide measurement (moles/volume)Ordered By: Peter Ahumada on 04-19-2022 CO2 [Moles/Vol]26.0 mmol/L22.0-30.0[facility] Hospitalerum or plasma total cholesterol/high density lipoprotein (HDL) cholesterol mass rat Ordered By: Peter Ahumada on 12-67-6214Roilqarfmoj.total/Cholesterol in HDL [Mass ratio]3.0 {ratio}<5.0[facility] Hospitalerum or plasma urea nitrogen measurement (mass/volume)Ordered By: Peter Ahumada on 65-19-1586Tybp nitrogen [Mass/Vol]5 mg/dL9-23[facility] HospitalTS DL <= 0.005 mIU/L QnOrdered By: Peter Ahumada on 81-01-7836IWB Qn1.94 m[IU]/L0.45-5.33[facility] HospitalThyroxine (T4) free [Mass/volume] in Serum or Plasma Ordered By: Peter Ahumada on [id number] T4 [Mass/Vol]0.69 ng/dL0.61-1.12 [facility] HospitalTriglyceride [Mass/volume] in Serum or Plasma Ordered By: Peter Ahumada on 43-10-2452Fkaclxiehnss [Mass/Vol]111 mg/eH92-052 [facility] HospitalComment on above:TRIG ATP III CLASSIFICATIONTRIG less than 150 mg/dL NormalTRIG 150-199 mg/dL Borderline highTRIG 200-500 mg/dL High TRIG greater than 500 mg/dL Very highStandard traceable to the Center for Disease Conrtrol and Prevention (CDC) test method. Silvana [id number] Visit ([id number]) DARLING KHANNA ([id number]) 1980 F Date Time Provider Department 10/13/21 1:30 PM KATE DANIEL [id number] During your visit today, we recorded the following information about you: Temperature Pulse Blood pressure Weight 97.7 degrees 68/minute 112/55 115.2 kg Height 1.829 m Kate Daniel MD 10/17/2021 1:50 PM Signed Assessment ESTABLISHED PATIENT Darling Khanna is a 40 year old female with a right posterior liver subcapsular fluid collection ? 03/03/2021: Patient presented to [facility] on 02/08/2021 for 2 days for acute ride sided abdominal/flank pain, right shoulder discomfort and nausea. She was diagnosed with Klebsiella pneumoniae UTI and was discharged with oral keflex and zofran. Patient represented to ER on 02/09/2021 for the continued complaints of pain. ? Referral From:?PCP- Peter Ahumada, DO Reason:?right abdominal pain pain; liver?fluid collection? ? Received Records From:? 02/08/2021 ER Report [facility] 02/09/2021 ER Report [facility] 02/15/2021 PCP Office note ? [...] US of ovaries yesterday at [facility]. Scheduled for upper GI at end of month. Gained?50 pounds since July?(was in [place] for 3 months, drank a lot); diagnosed [...] well. She did spend 3 months in [place] and did not have any issues, hospitalizations [...] which included preparing to see the patient, qayp-ul-ksbs patient care and completing clinical documentation. MD Jayne Garrido Ma 10/13/2021 1:33 PM Signed What is the reason for your visit today? Follow up Who is your referring physician? Are you having poor oral intake? NO Have you had unintentional weight loss of 15 lbs/7 Kg in the last 3-6 months? NO Bowels: regular Wound: Temperature: No Drains: No Referring Provider: KATE DANIEL [[id number]] Allergies As of Date: 10/13/2021 Noted Allergy [...] Comments as of 05/10 (more content not included)...NormalWayne HealthCare Main Campuson [id number] ([id number]) DARLING KHANNA ([id number]) 1980 F Date Time Provider Department 09/30/21 KATE DANIEL [id number] During your visit today, we recorded the following information about you: Sujatha Tomas 09/30/2021 9:00 AM Signed Called patient to reschedule her 10/13 in person to virtual. She would like to keep in person. She also wants to know if a CT or MRI can be ordered of her pancreas abdomen as she hasn't had anything done recently. She can be reached at [phone]. Talat Armendariz RN 10/10/2021 11:29 AM Signed [...] Encounter Status:Closed by TALAT ARMENDARIZ RN on 10/10/21[facility] [id number] Visit ([id number]) DARLING KHANNA ([id number]) 1980 F Date Time Provider Department 04/07/21 2:30 PM KATE DANIEL [id number] During your visit today, we recorded the following information about you: Temperature Pulse Blood pressure Weight 97.5 degrees 95/minute 136/77 109.3 kg Height 1.829 m Jayne Aguila Ga 04/07/2021 2:31 PM Signed What is the [...] subcapsular fluid collection 03/03/2021: Patient presented to [facility] on 02/08/2021 for 2 days for acute ride sided abdominal/flank pain, right shoulder discomfort and nausea. She was diagnosed with Klebsiella pneumoniae UTI and was discharged with oral keflex and zofran. Patient represented to ER on 02/09/2021 for the continued complaints of pain. ? Referral From:?PCP- Peter Ahumada, DO Reason:?right abdominal pain pain; liver?fluid collection? ? Received Records From:? 02/08/2021 ER Report [facility] 02/09/2021 ER Report [facility] 02/15/2021 PCP Office note ? [...] US of ovaries yesterday at [facility]. Scheduled for upper GI at end of month. Gained 50 pounds since July (was in [place] for 3 months, drank a lot); diagnosed [...] which included preparing to see the patient, oeol-yf-ixum patient care and completing clinical documentation. Kate Daniel MD Referring Provider: KATE DANIEL [[id number]] Allergies As of Date: 04/07/2021 Noted Allergy [...] Visit Notes: >> Jayne Aguila Ma [facility] Apr 07, 2021 2:28 PM Status: Signed What is the reason for your visit today? Follow up Who is your referring physician? Are you having poor oral intake? NO Have you had unintentional weight loss of 15 lbs/7 Kg in the last 3-6 months? NO Bowels: regular Wound: Temperature: No (more content not included)...NormalThe [facility] [id number] Team (GENN) DARLING KHANNA ([id number]) 1980 F Date Time Provider Department 03/22/21 [...] findings to suggest etiology Pre-conference plan (from [employer]): - Observation and serial imaging Imaging Review: [...] Encounter Status:Closed by WILLIAM DE LEÓN on 03/23/21[facility] [id number] Visit ([id number]) DARLING KHANNA ([id number]) 1980 F Date Time Provider Department 03/03/21 10:00 AM KATE DANIEL [id number] During your visit today, we recorded the following information about you: Temperature Pulse Blood pressure Weight 98.3 degrees 82/minute 128/85 112 kg Height 1.829 m Jayne [facility] 03/03/2021 10:03 AM Signed What is the [...] 40 year old female Patient presented to [facility] on 02/08/2021 for 2 days for [...] ? Received Records From: 02/08/2021 ER Report [facility] 02/09/2021 ER Report [facility] 02/15/2021 PCP Office note Visited [...] US of ovaries yesterday at [facility]. Scheduled for upper GI at end of month. Gained 50 pounds since July (was in [place] for 3 months, drank a lot); diagnosed [...] was malignant. Seen by Dr. Lara on [facility], in [facility]; denies chemotherapy or radiation. Hernia repair Social [...] Ht 182.9 cm (6') (more content not included)...NormalSt. Elizabeth HospitalCNPNon [id number] ([facility]) DARLING KHANNA ([id number]) 1980 F Date Time Provider Department 02/23/21 KATE DANIEL [facility] During your visit today, we recorded the following information about you: Talat Armendariz RN 02/23/2021 10:02 AM Addendum Hepatobiliary Surgery Consult HPI: Patient presented to [facility] on 02/08/2021 for 2 days for [...] collection Received Records From: 02/08/2021 ER Report [facility] 02/09/2021 ER Report [facility] 02/15/2021 PCP Office note Records Review BMI 33 Current OCP Imagin02/08/2021 CT A/P wo IVCON (Report [facility]- report rec'd) - minor basilar atelectasis or scarring - nonspecific lymph nodes - tiny umbilical hernia containing fat - no intra hepatic masses are noted - no bowel or urinary tract obstructions - no acute findings 02/08/2021 Ultrasound RUQ (Report [facility]- report rec'd) - unremarkable - no evidence of gallstones, gallbladder wall thickening, or ductal dilation 02/15/2021 CT A/P w IVCON (Report [facility]- report rec'd) - no acute abdominal or pelvis abnormality - indeterminate liver lesion: ill defined low attenuation lesion measuring at least 2.5cm in the medial segment of the left lobe of the liver posteriorly 02/17/2021 MRI Abdomen w/wo IVCON (Report [facility]- report rec'd) - unremarkable size [...] months 02/22/2021 CT A/P w IVCON (Report [facility]- report rec'd) - 62mm x 20mm [...] 8:26 AM Signed Patient's records scanned into [employer] and imaging downloaded from [facility] AND [place], please review. Tatyana Leroy 02/25/2021 9:53 AM Signed Scheduled patient for new consult on 03/03/2021. 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 Reason for Visit: [employer] - Other [3602] Consult [173] Prescriptions as [...] Status:Closed by TATYANA PEDRO on 02/25/21[facility] AkronAMYLASEon 94-26-4787Ttsjilp [Catalytic activity/Vol]48 U/LNormal 31-110The [facility] HospitalComment on above:Performed By: #### LIPA, CMP, SHAI #### [facility] [address] [address] Ruy KarenCBC AUTO DIFFon 78-19-3822SVWH #0.1 103/ulNormal0.0-0.1The [facility]ers HospitalComment on above:Performed By: #### CBC #### [facility] [address] [id number] Ruy KarenBasophils/100 WBC (Bld)0.7 %Normal0.2-2.0[facility] Comment on above:Performed By: #### CBC #### [facility] [address] [address] Ruy KarenEO #0.1 103/ulNormal0.0-0.7The [facility] HospitalComment on above: Performed By: #### CBC #### [facility] [address] [place] [address] Ruy KarenEosinophils/100 WBC (Bld)1.2 %Normal0.9-7.0The [facility] Comment on above:Performed By: #### CBC #### [facility] [address] [place] [address] Ruy KarenErythrocyte distribution width (RBC) [Ratio]12.6 %Nbrnup21.0-15.0The [facility] HospitalComment on above:Performed By: #### CBC #### [facility] [address] [place] [address] Ruy KarenHematocrit (Bld) [Volume fraction]38.7 %Yvabyd15.0-48.0The [facility] HospitalComment on above:Performed By: #### CBC #### [facility] [address] [place] [address] Ruy KarenHemoglobin (Bld) [Mass/Vol]12.6 g/qJZbimgz40.0-16.0The [facility] HospitalComment on above:Performed By: #### CBC #### [facility] [address] [place] [address] Ruy KarenIG #0.02 10e3/ulNormal0.00-0.03The [facility] HospitalComment on above:Performed By: #### CBC #### [facility] [address] [place] [address] Ruy KarenIG %0.2 %Normal0.0-0.5The [facility] HospitalComment on above: Performed By: #### CBC #### [facility] [address] [place] [address] Ruy KarenLYMPH #2.4 103/ulNormal1.2-3.8The [facility]ers HospitalComment on above: Performed By: #### CBC #### [facility] [address] [id number] Ruy KarenLymphocytes/100 WBC (Bld)22.4 %Fcontu40.5-60.0[facility] Comment on above:Performed By: #### CBC #### [facility] [address] [place], [place] [id number] Ruy KarenMANUAL DIFF REQNONormalThe [facility]ers HospitalComment on above: Performed By: #### CBC #### [facility] [address] [address] Ruy KarenMCH (RBC) [Entitic mass]27.7 bgTlapfh49.7-34.0[facility] Comment on above:Performed By: #### CBC #### [facility] [address] [place] [address] Ruy KarenMCHC (RBC) [Mass/Vol]32.6 g/nBSlnsqj07.9-35.2[facility] Comment on above:Performed By: #### CBC #### [facility] [address] [place] [address] Ruy KarenMCV (RBC) [Entitic vol]85.1 kGPdvtzm37.0-99.0[facility] Comment on above:Performed By: #### CBC #### [facility] [address] [place] [address] Ruy KarenMONO #0.7 103/ulNormal0.3-0.8The [facility] HospitalComment on above: Performed By: #### CBC #### [facility] [address] [place] [address] Ruy KarenMonocytes/100 WBC (Bld)6.5 %Normal1.7-12.0[facility] Comment on above:Performed By: #### CBC #### [facility] [address] [place] [address] Ruy KarenNEUT #7.3 103/ulCritically high1.4-6.5The [facility] HospitalComment on above:Performed By: #### CBC #### [facility] [address] [place], [place] [id number] Ruy CardozoenNeutrophils/100 WBC (Bld)69.0 %Ihkjmo40.0-75.0[facility] Comment on above:Performed By: #### CBC #### [facility] [address] [place] [address] Ruy CardozoenPlatelet mean volume (Bld) [Entitic vol]9.3 fLCritically low9.5-13.5 The [facility] HospitalComment on above:Performed By: #### CBC #### [facility] [address] [place] [address] Ruy OgspqXRA675 103/cgRksgtp280-199Ino [facility] HospitalComment on above: Performed By: #### CBC #### [facility] [address] [place] [address] Ruy KarenRBC4.55 106/ulNormal4.20-5.40The [facility] HospitalComment on above: Performed By: #### CBC #### [facility] [address] [place] [address] Ruy CardozoenWBC10.6 103/ulNormal4.0-11.0The [facility] HospitalComment on above: Performed By: #### CBC #### [facility] [address] [place] [address] Ruy KarenCT ABD/PELV W CONon 47-23-4166CP ABD/PELV W CONEXAMINATION: CT ABD/PELV W CON [...] authenticated by: LUZ MARINA HERNANDEZ Date: 2021-02-22 03:10NoCleveland Clinic Euclid HospitalD-DIMERon 51-14-3731G-DIMER0.40 mg/L FEUNormal0.19-0.50The [facility] HospitalComment on above:Performed By: #### DDIM #### [facility] [address] [place] [address] [employer] KarenD-DIMER COMMENTSSEE BELOWDayton Osteopathic HospitalComment on above:Result Comment: Increases in D-Dimer [...] generalized hospitalization. Performed By: #### DDIM #### [facility] [address] [place] [address] Ruy KarenLIPASEon 53-75-3611Pspqer [Catalytic activity/Vol]120.0 U/LNormal 23.0-300.0The [facility] HospitalComment on above:Performed By: #### LIPA, CMP, SHAI #### [facility] [address] [place] [address] Ruy KarenMONOon 86-14-0698Xqwroalrp (Bld) [#/Vol]NegativeNormalNEGATIVEThe [facility] HospitalComment on above:Performed By: #### MONO #### [facility] [address] [place] [address] Ruy KarenOT-CT ABD/PELVIS W CON IMPORTon 02-20-2569RV-CT ABD/PELVIS W CON IMPORTImages were obtained outside of [facility] [id number] Regional Medical CenterOT-CT ABD/PELVIS W CON IMPORTImages were obtained outside of [facility] [id number] Regional Medical CenterPREG HCG QUALon 02-22-2021 , QUALNegativeNormalNEGATIVEThe [facility] HospitalComment on above: Performed By: #### PREG #### [facility] [address] [place] [address] Ruy KarenPROF 14(COMP METB)on 28-22-3050Imkmzxe [Mass/Vol]3.2 g/dLCritically low3.5-5.0The [facility] HospitalComment on above:Performed By: #### SYEDA CMP, SHAI #### [facility] [address] [place] [address] Ruy KarenAlbumin/Globulin [Mass ratio]0.7 {ratio}NormalOhiohealth Nelsonville Health Center Comment on above:Performed By: #### SYEDA CMP, SHAI #### [facility] [address] [place] [address] Ruy KarenALP [Catalytic activity/Vol]54 U/OIffozn81-532MdcOhiohealth Nelsonville Health Center Comment on above:Performed By: #### LIPLilly CMP, SHAI #### [facility] [address] [place] [address] Ruy KarenALT [Catalytic activity/Vol]11 U/LNormal9-52The [facility] Comment on above:Performed By: #### LIPA, CMP, SHAI #### [facility] [address] [place] [address] Ruy KarenAnion gap [Moles/Vol]11.6 mmol/LNormalThe [facility] HospitalComment on above:Performed By: #### LIPA, CMP, SHAI #### [facility] [address] [place] [address] Ruy KarenAST [Catalytic activity/Vol]12 U/LCritically jrl79-07HxlOhiohealth Nelsonville Health CenterComment on above:Performed By: #### KARLI LANDA, SHAI #### [facility] [address] [place] [address] Ury KarenBilirubin [Mass/Vol]0.2 mg/dLNormal0.2-1.3The [facility] Comment on above:Performed By: #### KARLI LANDA, SHAI #### [facility] [address] [place] [address] Ruy KarenCalcium [Mass/Vol]9.2 mg/dLNormal8.4-10.2The [facility] Comment on above:Performed By: #### KARLI LANDA, SHAI #### [facility] [address] [place] [address] Ruy KarenChloride [Moles/Vol]104 mmol/AVjnafr21-241BmnOhiohealth Nelsonville Health Center Comment on above:Performed By: #### KARLI LANDA, SHAI #### [facility] [address] [place] [address] Ruy KarenCO2 [Moles/Vol]29.7 mmol/IPpcflp27.0-30.0[facility] Comment on above:Performed By: #### KARLI LANDA, SHAI #### [facility] [address] [place] [address] Ruy KarenCreatinine [Mass/Vol]0.74 mg/dLNormal0.52-1.04[facility] Comment on above:Performed By: #### SYEDA CMP, SHAI #### [facility] [address] [place] [address] Ruy KarenEGFR-AF DANISH>60Normal>=60The [facility] HospitalComment on above: Performed By: #### SYEDA CMP, SHAI #### [facility] [address] [place] [address] Ruy KarenEGFR-NON AF DANISH>60Normal>=60The [facility] HospitalComment on above:Performed By: #### SYEDA CMP, SHAI #### [facility] [address] [address] Ruy KarenGlobulin (S) [Mass/Vol]4.4 g/dLNormWyandot Memorial HospitalComment on above:Performed By: #### KARLI LANDA, SHAI #### [facility] [address] [address] Ruy KarenGlucose [Mass/Vol]104 mg/uAAcagld34-786Wjf [facility] HospitalComment on above:Performed By: #### KARLI LANDA, SHAI #### [facility] [address] [place] [address] Ruy KarenPotassium [Moles/Vol]4.3 mmol/LNormal3.4-5.0[facility] Comment on above:Performed By: #### KARLI LANDA, SHAI #### [facility] [address] [place] [address] Ruy KarenProtein [Mass/Vol]7.6 g/dLNormal6.1-8.2The [facility] HospitalComment on above:Performed By: #### KARLI LANDA, SHAI #### [facility] [address] [place] [address] Ruy KarenSodium [Moles/Vol]141 mmol/LIkadbe647-093Zet [facility] Comment on above:Performed By: #### KARLI LANAD, SHAI #### [facility] [address] [place] [address] Ury KarenUrea nitrogen [Mass/Vol]9.0 mg/dLNormal7.0-17.0[facility] Comment on above:Performed By: #### KARLI LANDA, SHAI #### [facility] [address] [place] [address] Ruy KarenUrea nitrogen/Creatinine [Mass ratio]12.2 mg/mgNoCleveland Clinic Euclid HospitalComment on above:Performed By: #### KARLI LANDA, SHAI #### [facility] [address] [place] [address] Ruy KarenMR-MR abdomen wo/w con IMPORTon 77-70-4978OM-MR abdomen wo/w con IMPORTImages were obtained outside of [facility] [id number] Regional Medical CenterCT-CT abdomen pelvis w con IMPORTon 38-36-6436UU-CT abdomen pelvis w con IMPORTImages were obtained outside of [facility] [id number] Health – Soin Medical Center ClevelandCT-CT abdomen pelvis wo con IMPORTon 78-01-9457UG-CT abdomen pelvis wo con IMPORTImages were obtained outside of [facility] [id number] Regional Medical CenterUS-US gall bladder IMPORT on 73-00-0752NT-US gall bladder IMPORTImages were obtained outside of [facility] [id number] Regional Medical CenterCNOVon 87-69-5526BHNQ Office Visit (LOORRM) DARLING KHANNA ([id number]) 1980 F Date Time Provider Department 12/28/20 3:30 PM CAST TECH YANIRA WISESilva During your visit today, we recorded the following information about you: Tracey Hair Ma 12/28/2020 4:25 PM Signed Dispensed XL/XXL Reaction brace for the Right knee. Dispensed by [employer] Project [employer]. Instructions were given on application/adjustments. She will f/u as scheduled/prn. Tracey Hair MA,ROT Referring Provider: ISHAN YUSUF [[id number]] Allergies As of Date: 12/28/2020 Noted Allergy [...] Encounter Status:Closed by TRACEY HAIR MA on 12/28/20[facility] Visit (LOORRM) DARLING KHANNA ([id number]) 1980 F Date Time Provider Department 12/28/20 [...] was performed today. CLINICAL IMPRESSION / ASSESSMENT: (S28.044F) Closed nondisplaced fracture of proximal phalanx of [...] - Swelling Date Reviewed: 12/28/2020 Reviewed by: Isahn Yusuf DO - Fully Assessed Reason for Visit: Fracture [4131] Primary Visit Diagnosis:Closed nondisplaced fracture of proximal phalanx of left little finger with routine healing, subsequent encounter [S66.606J] Other Visit Diagnosis:Patellofemoral arthralgia of right knee [...] 11/26/2017 Encounter Status:Closed by ISHAN YUSUF on 12/28/20[facility] [id number] Visit (LOORRM) DARLING KHANNA ([id number]) 1980 F Date Time Provider Department 11/30/20 [...] results and radiologist's interpretation, available in the [facility] health record. Images were reviewed with the patient/family members in the office today. My personal interpretation of the performed imaging is healing proximal phalanx fracture CLINICAL IMPRESSION / ASSESSMENT: (S53.930Z) Closed nondisplaced fracture of proximal phalanx of [...] little finger with routine healing, subsequent encounter [D69.868O] Order(s):XR HAND GENERAL 3V PA/LAT/OBL LT [[id number]] Order #: [id number] FUTURE CONSULT TO INSTRUCTIONAL DESIGN TECHNOLOGIST [[id number]] Order #: [id number]: 1 FUTURE Prescriptions as of 11/30/2020 Sig: [...] Status:Closed by ISHAN YUSUF on 11/30/20[facility] AkronXR HAND 3V PA/LAT/OBL LTon 97-02-3987UD HAND 3V PA/LAT/OBL LT* * *Final Report* [...] fractures. IMPRESSION: Healing 5th proximal phalanx fracture Crm System Administrator: WILBERT Transcribe Date/Time: Nov 30 2020 4:18P Dictated by : JUDITH FUENTES MD This examination was interpreted and the report reviewed and electronically signed by: JUDITH FUENTES MD on Nov 30 2020 4:19PM EST [id number]. Elizabeth HospitalXR Hand - left PA and Lateral and Obliqueon 54-85-5992SBAAMGWBPI: Healing 5th proximal phalanx fracture Crm System Administrator: WILBERT Transcribe Date/Time: Nov 30 2020 [...] healing. No additional fractures. DIVISION OF RADIOLOGYProvider, [facility] [place] - 11/30/2020 * * *Final Report* * [...] IMPRESSION IMPRESSION: Healing 5th proximal phalanx fracture Crm System Administrator: PSCB Transcribe Date/Time: Nov 30 2020 4:18P Dictated by : JUDITH FUENTES MD This examination was interpreted and the report reviewed and electronically signed by: JUDITH FUENTES MD on Nov 30 2020 4:19PM [facility] HospitalRadiology Study observation (narrative)[facility] HospitalXR Hand - left PA and Lateral and ObliqueOrdered By: [facility] Provider on 62-91-2333Yexdxpuww ClinicCNOVon 29-62-7096UBBLZvmfgv Visit (LOORRM) DARLING KHANNA ([id number]) 1980 F Date Time Provider Department 11/18/20 [...] results and radiologist's interpretation, available in the [facility] health record. Images were reviewed with the patient/family members in the office today. My personal interpretation of the performed imaging is intra-articular proximal phalanx fracture CLINICAL IMPRESSION / ASSESSMENT: (S77.528V) Closed nondisplaced fracture of proximal phalanx of [...] phalanx of left little finger, initial encounter [S69.114W] Order(s):XR HAND GENERAL 3V PA/LAT/OBL LT [[id number]] Order #: [id number] FUTURE Prescriptions as of 11/18/2020 Sig: OMEPRAZOLE [...] Encounter Status:Closed by PARAMJIT ISHAN Gallo on 11/18/20NoDayton Osteopathic HospitalXR HAND 3V PA/LAT/OBL LTon 80-06-2483JN HAND 3V PA/LAT/OBL LT* * *Final Report* [...] unchanged. IMPRESSION: Healing fifth proximal phalanx fracture. Crm System Administrator: WILBERT Transcribe Date/Time: Nov 18 2020 8:15P Dictated by : ADRIANE CAMPOS MD This examination was interpreted and the report reviewed and electronically signed by: ADRIANE CAMPOS MD on Nov 18 2020 8:27PM EST [id number]. Elizabeth HospitalXR Hand - left PA and Lateral and Obliqueon [id number]: Healing fifth proximal phalanx fracture. Crm System Administrator: PSCB Transcribe Date/Time: Nov 18 2020 [...] new fracture. Remainder unchanged. DIVISION OF RADIOLOGYProvider, [facility] [place] - 11/18/2020 * * *Final Report* * [...] IMPRESSION IMPRESSION: Healing fifth proximal phalanx fracture. Crm System Administrator: PSCB Transcribe Date/Time: Nov 18 2020 8:15P Dictated by : ADRIANE CAMPOS MD This examination was interpreted and the report reviewed and electronically signed by: ADRIANE CAMPOS MD on Nov 18 2020 8:27PM [facility] (n[facility]ative)[facility] PA and Lateral and ObliqueOrdered By: [facility] Provider on [id number] ClinicCNOV [id number] Visit (ORAVON) DARLING KHANNA ([id number]) 1980 F Date Time Provider Department 11/04/20 2:00 PM BOB MILLAN During your visit today, we recorded the following information about you: Bob Millan DO 11/04/2020 2:12 PM Signed [facility] Office Visit Documentation Note [facility] Medicine Orthopaedic and Rheumatologic [place] REASON FOR VISIT / CHIEF COMPLAINT SERVICE [...] results and radiologist's interpretation, available in the [facility] health record. Images were reviewed with the patient/family members in the office today. My personal interpretation of the performed imaging is Has IA prox phalanx fracture at PIP ASSESSMENT / PLAN CLINICAL IMPRESSION / ASSESSMENT: (W20.759X) Closed nondisplaced fracture of proximal phalanx of [...] plan as detailed above. Bob Millan D.O. [facility] Orthopaedic [facility] Rheumat[facility] [place] Team Physician, [facility] Consulting Physician, [facility] Dayan Landeros, Oil Field Operator [phone] Patient verbalizes understanding and agrees with the treatment plan as detailed above. Referring Provider: SELF [[id number]] Allergies As of Date: 11/04/2020 Noted Allergy Reaction INDOMETHACIN 05/10/2018 7 - Swelling Date Reviewed: 11/04/2020 Reviewed by: Juaquin Farmer - Fully Assessed Reason for Visit: New [[id number]] Primary Visit Diagnosis:Closed nondisplaced fracture of proximal phalanx of left little finger, initial encounter [B44.652A] Prescriptions as of 11/04/2020 Sig: OMEPRAZOLE 40 [...] for Dr. Yusuf or Shayla Silva in [place]. Follow-up and Disposition History Recorded Encounter Status:Closed by BOB MILLAN DO on 11/04/20NoDayton Osteopathic HospitalDX-XR HAND COMPLETE LEFT IMPORTon [id number]-XR HAND COMPLETE LEFT IMPORTImages were obtained outside of [facility] [id number]. Elizabeth Hospital Vital Signs Date TimeVital SignValuePerforming XgqnmqeliFnfogsfv82-84-5382 08:04-0400Body oovwxf675.88 cmPeter Shens DO Work Phone: [phone] [place], [place] 5671410-29-2025 08:04-0400 Body mass index (BMI) [Ratio]30.7 kg/k7UsphuPeter Shens DO Work Phone: [phone]10-29-2025 08:04-0400 Body kvaklg804.96 kgPeter Shens DO Work Phone: [phone] [place], [place] 5671410-29-2025 08:04-0400 Diastolic blood rlieukwi36 mm[Hg]Peter Shens DO Work Phone: 1([phone])708-[address] [place], [place] 5671410-29-2025 08:04-0400 Heart rate91 /minPeter Shens DO Work Phone: [phone]10-29-2025 08:04-0400 Respiratory rate16 /minPeter Shens DO Work Phone: [phone]10-29-2025 08:04-0400 SaO2% (BldA) [Mass fraction]96 %Peter Ahumada DO Work Phone: [phone]10-29-2025 08:04-0400 Systolic blood vdpyjdvv653 mm[Hg]Peter Shens DO Work Phone: [phone] [place], [place] 5671405-19-2025 12:48-0400 Body xpofuf422.88 cmPeter Shens DO Work Phone: [facility]05-19-2025 12:48-0400 Body mass index (BMI) [Ratio]27.3 kg/f9IbesoPeter Shens DO Work Phone: [facility]05-19-2025 12:48-0400 Body lqfjig37.62 kgPeter Shens DO Work Phone: [facility]05-19-2025 12:48-0400 Diastolic blood bellhwbq49 mm[Hg]Peter Shens DO Work Phone: [facility]05-19-2025 12:48-0400 Heart rate76 /minPeter Ahumada DO Work Phone: [facility]05-19-2025 12:48-0400 Respiratory rate18 /minPeter Ahumada DO Work Phone: [phone]05-19-2025 12:48-0400 SaO2% (BldA) [Mass fraction]96 %Peter Ahumada DO Work Phone: [facility]05-19-2025 12:48-0400 Systolic blood ufoxijkn001 mm[Hg]Peter Ahumada DO Work Phone: [facility]02-19-2025 15:25-0500 Body iexhkc319.9 cmFredric Itzkowitz DO Work Phone: [facility] CenterEnzmxkllvj31-19-9873 15:25-0500Body mass index (BMI) [Ratio]27.8 kg/q6Rdhdknp Itzkowitz DO Work Phone: [facility] CenterWqqistkgqv77-37-6401 15:25-0500Body .99 kgFredric Itzkowitz DO Work Phone: [facility] CenterXwmbohcbld36-94-6099 15:25-0500Diastolic blood fxfppvka37 mm[Hg]Alber Itzkowitz DO Work Phone: [facility] CenterEncmnxdmqh41-31-0503 15:25-0500Systolic blood coxjzgvk355 mm[Hg]Alber Itzkowitz DO Work Phone: [facility] CenterWusxedarsd97-06-5351 14:37-0500Body ttuaen944.88 cmPeter Ahumada DO Work Phone: [facility]02-18-2025 14:37-0500 Body mass index (BMI) [Ratio]27.9 kg/y5RpmjaPeter Shens DO Work Phone: [facility]02-18-2025 14:37-0500 Body whaatu05.44 kgPeter Shens DO Work Phone: [facility]02-18-2025 14:37-0500 Diastolic blood tzfupcpt85 mm[Hg]Peter Shens DO Work Phone: [facility]02-18-2025 14:37-0500 Heart rate74 /minPeter Ahumada DO Work Phone: [facility]02-18-2025 14:37-0500 SaO2% (BldA) [Mass fraction]95 %Peter Ahumada DO Work Phone: [facility]02-18-2025 14:37-0500 Systolic blood jkuzxrvh125 mm[Hg]Peter Shens DO Work Phone: [facility]11-19-2024 15:00-0500 Body jybubl915.88 cmPeter Shens DO Work Phone: [facility]11-19-2024 15:00-0500 Body mass index (BMI) [Ratio]32.3 kg/k2AgzjmPeter Shens DO Work Phone: [facility]11-19-2024 15:00-0500 Body .95 kgTerryluiza Shens DO Work Phone: [facility]11-19-2024 15:00-0500 Diastolic blood goqynkly30 mm[Hg]Peter Acs DO Work Phone: [facility]11-19-2024 15:00-0500 Heart rate75 /minPeter Shens DO Work Phone: [facility]11-19-2024 15:00-0500 Respiratory rate16 /minPeter Shens DO Work Phone: [facility]11-19-2024 15:00-0500 SaO2% (BldA) [Mass fraction]96 %Peter Shens DO Work Phone: [facility]11-19-2024 15:00-0500 Systolic blood vlrayprw39 mm[Hg]Peter Shens DO Work Phone: [facility]08-15-2024 14:27-0400 Body emphjp214.88 cmDO Peter Shens Work Phone: [facility]08-15-2024 14:27-0400 Body mass index (BMI) [Ratio]36.4 kg/m2DO Peter Shens Work Phone: [facility]08-15-2024 14:27-0400 Body jbyaez073.01 kgDO Peter Ahumada Work Phone: [facility]08-15-2024 14:27-0400 Diastolic blood qqaldsiz11 mm[Hg]DO Pteer Ahumada Work Phone: [facility]08-15-2024 14:27-0400 Heart rate77 /minDO Peter Shens Work Phone: [facility]08-15-2024 14:27-0400 Respiratory rate16 /minDO Peterluiza Shens Work Phone: [facility]08-15-2024 14:27-0400 SaO2% (BldA) [Mass fraction]96 %DO Peter Shens Work Phone: [facility]08-15-2024 14:27-0400 Systolic blood mm[Hg]DO Peter Kuns Work Phone: [facility]07-09-2024 14:05-0400 Diastolic blood qwffymza62 mm[Hg]DO Peter Ahumada Work Phone: [facility]07-09-2024 14:05-0400 Heart rate91 /Phillip Ahumada Work Phone: [facility]07-09-2024 14:05-0400 Respiratory rate16 /HayleyO Peter Ahumada Work Phone: [facility]07-09-2024 14:05-0400 SaO2% (BldA) [Mass fraction]94 %DO Peter Ahumaad Work Phone: [facility]07-09-2024 14:05-0400 Systolic blood mm[Hg]DO Peter Ahumada Work Phone: [facility]07-09-2024 13:05-0400 Body tdksgqjztti75 [degF]DO Peter Ahumada Work Phone: [facility]07-09-2024 12:42-0400 Inhaled oxygen flow rate8 L/Phillip Ahumada Work Phone: [facility]07-09-2024 11:44-0400 Body abuyrf567.88 cmDO Peter Ahumada Work Phone: [facility]07-09-2024 11:44-0400 Body mass index (BMI) [Ratio]36.5 kg/m2DO Peter Ahumada Work Phone: [facility]07-09-2024 11:44-0400 Body yzeizq174.2 kgDO Peter Ahumada Work Phone: [facility]06-10-2024 07:25-0400 Body iaicpr3098.56 cmDO Peter Ahumada Work Phone: [facility]06-10-2024 07:25-0400 Body mass index (BMI) [Ratio]0.2 kg/m2DO Peter Ahumada Work Phone: [facility]06-10-2024 07:25-0400 Body .46 kgDO Peter Ahumada Work Phone: [facility]06-10-2024 07:25-0400 Diastolic blood bqwopejr71 mm[Hg]DO Peter Ahumada Work Phone: [facility]06-10-2024 07:25-0400 Heart rate65 /Phillip Ahumada Work Phone: [facility]06-10-2024 07:25-0400 Respiratory rate16 /Phillip Ahumada Work Phone: [facility]06-10-2024 07:25-0400 SaO2% (BldA) [Mass fraction]97 %DO Peter Ahumada Work Phone: [facility]06-10-2024 07:25-0400 Systolic blood skzbycux795 mm[Hg]DO Peter Ahumada Work Phone: [facility]06-06-2024 14:20-0400 Body cuvavp448.88 cmDO Peter Ahumada Work Phone: [facility]06-06-2024 14:20-0400 Body mass index (BMI) [Ratio]37.3 kg/m2DO Peter Ahumada Work Phone: [facility]06-06-2024 14:20-0400 Body vnvqip887.73 kgDO Peter Ahumada Work Phone: [facility]06-06-2024 14:20-0400 Diastolic blood ehecpndk16 mm[Hg]DO Peter Ahumada Work Phone: [facility]06-06-2024 14:20-0400 Heart rate86 /Phillip Ahumada Work Phone: [facility]06-06-2024 14:20-0400 Respiratory rate16 /minDO Peter Ahumada Work Phone: [address] [place], [place] [address]-06-2024 14:20-0400 SaO2% (BldA) [Mass fraction]96 %DO Peter hAumada Work Phone: [address] [place], [place] [address]-06-2024 14:20-0400 Systolic blood wnkjavcb928 mm[Hg]DO Peter Ahumada Work Phone: [phone]05-27-2024 07:31-0400 Body usjcpb053.88 cmDO Peter Ahumada Work Phone: 1([phone])[address]05-27-2024 07:31-0400 Body gxcduhxqbxh82.7 [degF]DO Peter Ahumada Work Phone: [phone])[address]05-27-2024 07:31-0400 Body mtvqua000.9 kgDO Peter Ahumada Work Phone: [phone] [place], [place] 5671405-27-2024 07:31-0400 Diastolic blood mltypsjp30 mm[Hg]DO Peter Ahumada Work Phone: [phone])[address]05-27-2024 07:31-0400 Heart rate88 /minDO Peter Ahumada Work Phone: [address] [place], [place] [address]2005-27-2024 07:31-0400 Respiratory rate20 /minDO Peter Shens Work Phone: [phone])433-[address] [place], [place] 5671405-27-2024 07:31-0400 SaO2% (BldA) [Mass fraction]97 %DO Peter Ahumada Work Phone: [phone] [place], [place] 5671405-27-2024 07:31-0400 Systolic blood havzjorl042 mm[Hg]DO Peter Ahumada Work Phone: [phone] [place], [place] 5671411-17-2023 10:30-0500 Body aijlty082.88 cmPeter Ahumada Other [employer] Other 11-17-2023 10:30-0500Body mass index (BMI) [Ratio] 34.91 kg/k9Iemwd Kuns Other [employer] Other 11-17-2023 10:30-0500Body .76 kgTerryluiza Ahumada Other [employer] Other 11-17-2023 10:30-0500Diastolic blood pbsrbuqh34 mm[Hg] Peter Ahumada Other [employer] Other 11-17-2023 10:30-0500Respiratory rate16 /minBryluiza Ahumada Other [employer] Other 11-17-2023 10:30-2843LoA8% (BldA) [Mass fraction]98 % Peter Ahumada Other [employer] Other 11-17-2023 10:30-0500Systolic blood opwcoema756 mm[Hg] Peter Blake Other [employer] Other 11-02-2023 15:00-0400Body .88 cmTerryluiza Shensihra Other [employer] Other 11-02-2023 15:00-0400Body mass index (BMI) [Ratio] 35.12 kg/c5MwaafPeter Ahumada Other [employer] Other 11-02-2023 15:00-0400Body gmgiap110.48 kgPeter Ahumada Other [employer] Other 11-02-2023 15:00-0400Diastolic blood mjpdzagf74 mm[Hg] Peter Shenshira Other [employer] Other 11-02-2023 15:00-0400Respiratory rate16 /minPeter Ahumada Other [employer] Other 11-02-2023 15:00-0182CyJ8% (BldA) [Mass fraction]95 % Peter Ahumada Other [employer] Other 11-02-2023 15:00-0400Systolic blood bxtlxpav295 mm[Hg] Peter Ahumada Other [employer] Other 08-30-2023 08:30-0400Body eejfmk122.88 cmPeter Acshira Other [employer] Other 08-30-2023 08:30-0400Body mass index (BMI) [Ratio] 34.39 kg/w6QbcutPeter Ahumada Other [employer] Other 08-30-2023 08:30-0400Body .03 kgPeter Ahumada Other [employer] Other 08-30-2023 08:30-0400Diastolic blood susivvpr13 mm[Hg] Peter Ahumada Other [employer] Other 08-30-2023 08:30-0400Respiratory rate16 /minPeter Ahumada Other [employer] Other 08-30-2023 08:30-6437AoN5% (BldA) [Mass fraction]95 % Peter Ahumada Other [facility] [employer] Other 08-30-2023 08:30-0400Systolic blood bcitvvco636 mm[Hg] Peter Ahumada Other [facility] [employer] Other 810044-31-6948 13:49-0400Diastolic blood dcatinom08 mm[Hg] DO Peter Ahumada Work Phone: [facility]04-12-2023 13:49-0400 Systolic blood acscvubz840 mm[Hg]DO Peter Ahumada Work Phone: [facility]04-12-2023 13:02-0400 Body pltmmeceflj28.6 [degF]DO Peter Ahumada Work Phone: [facility]04-12-2023 13:02-0400 Heart rate72 /HayleyO Peter Ahumada Work Phone: [facility]04-12-2023 13:02-0400 Respiratory rate18 /HayleyO Peter Ahumada Work Phone: [facility]04-12-2023 13:02-0400 SaO2% (BldA) [Mass fraction]96 %DO Peter Ahumada Work Phone: [facility]04-12-2023 08:58-0400 Body ikmmog125.88 cmDO Peter Ahumada Work Phone: [facility]04-12-2023 08:58-0400 Body jkcske636.93 kgDO Peter Ahumada Work Phone: [facility]11-03-2022 17:00-0400 Body xuweba151.88 cmPeter Ahumada Other [facility] [employer] Other [id number] 17:00-0400Body mass index (BMI) [Ratio] 33.63 kg/e9Zslys Blake Other [employer] Other 11-03-2022 17:00-0400Body hrscob243.49 kgTerryluiza Ahumada Other [employer] Other 11-03-2022 17:00-0400Diastolic blood ynjyagao55 mm[Hg] Peter Ahumada Other [employer] Other 11-03-2022 17:00-0400Respiratory rate16 /minBryluiza Ahumada Other [employer] Other 11-03-2022 17:00-1645GrE0% (BldA) [Mass fraction]Peter Ahumada Other [employer] Other 11-03-2022 17:00-0400Systolic blood uolpxzyw226 mm[Hg] Peter Ahumada Other [employer] Other 10-03-2022 09:15-0400Body gmmoqh528.88 cmPeter Ahumada Other [employer] Other 10-03-2022 09:15-0400Body mass index (BMI) [Ratio]33.5 kg/q0PrtwyPeter Ahumada Other [employer] Other 10-03-2022 09:15-0400Body msbwfo656.04 kgPeter Ahumada Other [employer] Other 10-03-2022 09:15-0400Diastolic blood augngkgq37 mm[Hg] Peter Ahumada Other [employer] Other 10-03-2022 09:15-0400Respiratory rate18 /minPeter Ahumada Other [employer] Other 10-03-2022 09:15-9143OtH6% (BldA) [Mass fraction]96 % Peter Ahumada Other [employer] Other 10-03-2022 09:15-0400Systolic blood xxxsotfk658 mm[Hg] Peter Ahumada Other [employer] Other 04-13-2022 12:00-0400Body maqucc844.88 cmPeter Ahumada Other [employer] Other 04-13-2022 12:00-0400Body mass index (BMI) [Ratio] 34.44 kg/t0BkbblPeter Ahumada Other [employer] Other 04-13-2022 12:00-0400Body ijgjyq913.21 kgPeter Ahumada Other [employer] Other 04-13-2022 12:00-0400Diastolic blood bkezjkip69 mm[Hg] Peter Ahumada Other [employer] Other 04-13-2022 12:00-0400Respiratory rate16 /minTerryluiza Ahumada Other [employer] Other 04-13-2022 12:00-1555KtZ7% (BldA) [Mass fraction]97 % Peter Acshira Other [employer] Other 04-13-2022 12:00-0400Systolic blood gqfwbekf334 mm[Hg] Peter Ahumada Other [employer] Other 03-28-2022 09:15-0400Body ldzcof060.88 cmPeter Ahumada Other [employer] Other 03-28-2022 09:15-0400Body mass index (BMI) [Ratio]34.2 kg/j4YgzkgPeter Ahumada Other [employer] Other 03-28-2022 09:15-0400Body cyhejz880.4 kgPeter Ahumada Other [employer] Other 03-28-2022 09:15-0400Diastolic blood rsyvhnwh17 mm[Hg] Peter Blake Other [employer] Other 03-28-2022 09:15-0400Respiratory rate18 /minPeter Ahumada Other [employer] Other 03-28-2022 09:15-3365MaE9% (BldA) [Mass fraction]98 % Peter Ahumada Other [employer] Other 03-28-2022 09:15-0400Systolic blood otxdhxez419 mm[Hg] Peter Ahumada Other [employer] Other 03-24-2022 13:28-0400Body .9 Shashank Daniel MD Work Phone: [facility]03-24-2022 13:28-0400Body temperature 97.7 [degF]Kate Daniel MD Work Phone: [facility]03-24-2022 13:28-0400Body pisfyt654.21 kgKate Daniel MD Work Phone: [facility]03-24-2022 13:28-0400Diastolic blood rvuysqpr49 mm[Hg]Kate Daniel MD Work Phone: [facility]03-24-2022 13:28-0400Heart rate68 /min Kate Daniel MD Work Phone: [facility]03-24-2022 13:28-5881HdU6% (BldA) [Mass fraction]97 %Kate Dainel MD Work Phone: [facility]03-24-2022 13:28-0400Systolic blood tuwrpsnt483 mm[Hg]Kate Daniel MD Work Phone: [facility]09-29-2021 08:45-0400Body butnti654.88 cmPeter Ahumada Other [employer] Other 09-29-2021 08:45-0400Body mass index (BMI) [Ratio] 31.87 kg/c7QyagqPeter Ahumada Other [employer] Other 09-29-2021 08:45-0400Body zlepyx364.6 kgPeter Ahumada Other [employer] Other 09-29-2021 08:45-0400Diastolic blood mm[Hg] Peter Ahumada Other [employer] Other 09-29-2021 08:45-0400Respiratory rate18 /minPeter Ahumada Other [employer] Other 09-29-2021 08:45-6015YxD2% (BldA) [Mass fraction]96 % Peter Ahumada Other [facility] Other 822948-38-2023 08:45-0400Systolic blood wnxpajmu008 mm[Hg] Peter Ahumada Other [facility] Other Encounters Encounter DateEncounter TypeCare ProviderFacilityStart: 05-20-2025 End: 19-93-4096orsgcmxczkGgqrh Kuns DO Work Phone: -[facility] CastaliaStart: 05-20-2025 End: 26-46-2882Mhmyctu encounter procedurePeter Liz DO-[facility] Work Phone: Start: 05-15-2025 End: 83-31-7648Bdzypnh encounter procedurePeter Liz DO-[facility] Work Phone: Start: 05-15-2025 End: 49-93-9420shalzynsepLmhff Kuns DO Work Phone: [facility] MonicaStart: 04-27-2025 End: 55-30-5403trpgmtevakMfxxnmc Vytautas Giedraitis MDFacility:[facility] Start: 03-16-2025 End: 66-68-3317epzzholabcMpzsgrn Vytautas Giedraitis MDFacility:[facility] Start: 03-02-2025 End: 54-04-9719fbcrslvqfdXstbitx Vytautas Giedraitis MDFacility:[facility] Start: 01-27-2025 End: 61-26-3089Cdhabaj encounter procedurePeter Liz DO-[facility] Work Phone: Start: 01-27-2025 End: 21-22-0881jurgsgkrnaCtlcq Kuns DO Work Phone: [facility] Work Phone: Start: 01-26-2025 End: 79-73-7218ompomiithxDmuxmxi Vytautas Giedraitis MDFacility:[facility] Start: 12-08-2024 End: 49-28-7946Vrunzob encounter procedurePeter Liz DO-[facility] Work Phone: Start: 12-08-2024 End: 64-13-8213ipfexihizcIqtydyx Vytautas Giedraitis MDFacility:[facility] [place] Start: 12-05-2024 End: 22-38-0472Sndqjcf encounter procedurePeter Liz DO-[facility] [place] Work Phone: Start: 12-05-2024 End: 20-01-9687nhkdozfqysRpasy KunsFacility:[facility] Start: 10-13-2024 End: 10-67-4452Aeredf follow up visit related to original pxFredric H Itzkowitz DO Work Phone: [facility] ST GENSComment on above:Sebaceous cyst (Primary Dx)Start: 10-13-2024 End: 88-64-9289cpcmpkzabdDRPOJGV H ITZKOWITZNot AvailableStart: 09-29-2024 End: 27-25-4057yopjknphzzVffgf Kuns DO Work Phone: [facility] Work Phone: Start: 09-29-2024 End: 48-44-0025Qjdgnmez ReferredPeter Ahumada DO Work Phone: [facility] [place] Work Phone: Start: 09-22-2024 End: 76-49-0708jpqgkhyzwsXewttlj Vytautas Giedraitis MDFacility:[facility] Start: 09-10-2024 End: 30-83-9117Rxpodd outpatient visit 15 minutesFredric H Itzkowitz DO Work Phone: [facility] ST GENSComment on above:Sebaceous cyst (Primary Dx)Start: 09-10-2024 End: 16-76-5662riohpfusueRPERUPO H ALBAZKOWIAna AvailableStart: 09-09-2024 End: 31-81-5246kuqwbeeodzVzetr Kuns DO Work Phone: [facility] Work Phone: Start: 09-09-2024 End: 11-46-6035Aqrplqz encounter procedureBryluiza Ahumada DO Work Phone: [facility] Work Phone: Start: 09-01-2024 End: 83-83-7119fzboawfjzqLkvmfnz Vytautas Giedraitis MDFacility:[facility] Start: 07-17-2024 End: 15-51-8489lxcjfbkrqpEonzw D [facility]Fac[facility] Hospitaltart: 07-17-2024 End: 46-13-0568Tzekidthtk RecurringPeter Ahumada DO Work Phone: [facility] [place] Work Phone: start: 06-23-2024 End: 28-13-5940rikzbmhuhvBrmxgkv Vytautas Giedraitis MDFacility:[facility] Start: 06-10-2024 End: 67-70-0232giffptniynEtnqq Acs DO Work Phone: [facility] Work Phone: Start: 06-10-2024 End: 49-12-6902Nihyyvk encounter procedurePeter Shens DO Work Phone: [facility] Work Phone: Start: 06-04-2024 End: 66-65-7559Ubqtfum encounter procedurePeter Shens DO Work Phone: [facility] [place] Work Phone: Start: 06-04-2024 End: 83-74-8696pkwdoylkdsHyfyg Acs DO Work Phone: [facility] Work Phone: Start: 05-22-2024 End: 71-56-4320Herpfbi encounter procedureChristopher Jonathan DO Work Phone: noms NEUROLOGYComment on above:Lumbosacral radiculopathy (Primary Dx)Start: 05-22-2024 End: 34-76-7979owkbczwcfmMPHJWSRJNHQ HASSETTNot AvailableStart: 05-22-2024 End: 30-51-1204Hdopgi flowsheetChristopher Jonathan DO Work Phone: [facility] NEUROLOGYStart: 05-22-2024 End: 97-37-8089Ylqqqg flowsheetChristopher Jonathan DO Work Phone: [facility] NEUROLOGYStart: 05-19-2024 End: 99-13-2481xlzasrizcqPB Peter Ahumada Work Phone: [facility] Work Phone: Start: 05-19-2024 End: 93-86-9283Ucxlrffzvs RecurringDO Peter Ahumada Work Phone: [facility] [place] Work Phone: start: 03-12-2024 End: 62-57-6580pfxrshrnauDW Peter Ahumada Work Phone: [facility] Work Phone: Start: 03-12-2024 End: 34-37-5235Kpqdmsu encounter procedureDO Peter Ahumada Work Phone: [facility] [place] Work Phone: Start: 03-06-2024 End: 29-30-0025yrlbbfbptsXU Bryan Kuns Work Phone: [facility] Work Phone: Start: 03-06-2024 End: 38-52-2566Fxpembb encounter procedureDO Peter Ahumada Work Phone: [facility] [place] Work Phone: Start: 03-05-2024 End: 83-52-0255lojzxjdugnHL Peter Shenshira Work Phone: [facility] Work Phone: Start: 03-05-2024 End: 50-29-6373Wwkvoaq encounter procedureDO Peter Shenshira Work Phone: [facility] [place] Work Phone: Start: 02-28-2024 End: 01-97-8754vngcdpphslFCELGQP H ITZKOWITZNot AvailableStart: 02-13-2024 End: 70-51-2464rrqtefegzgTP Peter Ahumada Work Phone: [facility] Work Phone: Start: 02-13-2024 End: 36-39-6662Qbfqgcn encounter procedureDO Peter Shenshira Work Phone: [facility] Work Phone: Start: 02-13-2024 End: 20-71-6288ftogbrktamTA Peterluiza Ahumada Work Phone: [facility] Work Phone: Start: 02-13-2024 End: 07-06-1392Infdwaw encounter procedureDO Peter Blake Work Phone: [facility] Start: 02-07-2024 End: 26-03-3301pjuduwztrkYLQIWTB H ITZKOWITZNot AvailableStart: 01-29-2024 End: 43-99-8144Euddsgwkh to same day surgery centerDO Peter Ahumada Work Phone: [facility]: 01-29-2024 End: 57-22-3784vlvuqraypxRJ Bryan Kuns Work Phone: [facility] Work Phone: Start: 01-15-2024 End: 00-37-5515fogapaapfvSM Bryan Kuns Work Phone: [facility] Work Phone: Start: 01-15-2024 End: 06-42-9721Vzplijmh ReferredDO Peter Ahumada Work Phone: [facility] [facility] Xxt-Pge-Dijtaqwq Testing Work Phone: Start: 01-15-2024 End: 07-95-4806Tompdfg encounter procedureDO Peter Ahumada Work Phone: [facility] Neg-Yzm-Veyfwwfu Testing Work Phone: Start: 01-14-2024 End: 42-67-6628icbqnkjyjjPD Bryan Kuns Work Phone: [facility] Work Phone: Start: 01-14-2024 End: 49-25-0538Dicgqxr encounter procedureDO Peter Ahumada Work Phone: [facility] Work Phone: Start: 01-14-2024 End: 18-41-0838gnmcetmjmjMM Bryan Kuns Work Phone: [facility] Work Phone: Start: 01-14-2024 End: 96-44-5416Hrrppbq encounter procedureDO Peter Ahumada Work Phone: [facility] [place] [facility] Start: 01-03-2024 End: 09-19-4273yvdfgsyrwlDLXGAXN Judd Dupont AvailableStart: 12-31-2023 End: 40-37-9640xkgcirdwlzQG Peter Ahumada Work Phone: [facility] Work Phone: Start: 12-31-2023 End: 21-19-3150Pceuvgs encounter procedureDO Peter Ahumada Work Phone: [facility] Work Phone: Start: 12-31-2023 End: 74-69-5877ymqmwzvrogKZ Peter Ahmuada Work Phone: [facility] Work Phone: Start: 12-31-2023 End: 63-92-1601Zwvphfa encounter procedureDO Peter Ahumada Work Phone: [facility]-Ultrasound [facility] [place] Work Phone: Start: 12-31-2023 End: 41-95-2703ueospexdgdDW Pteer Ahumada Work Phone: [facility] Work Phone: Start: 12-31-2023 End: 98-97-8114Auidfhl encounter procedureDO Peter Ahumada Work Phone: [facility] [place] Work Phone: Start: 12-28-2023 End: 55-15-0483xfosojvdwwXH Bryan Kuns Work Phone: [facility] Work Phone: Start: 12-28-2023 End: 43-01-0720Ntsghfx encounter procedureDO Peter Ahumada Work Phone: [facility] [place] Work Phone: Start: 12-27-2023 End: 58-54-5672zeboqwnwnsJH Bryan Kuns Work Phone: [facility] Work Phone: Start: 12-27-2023 End: 01-53-8977Ukizqie encounter procedureDO Peter Blake Work Phone: [facility] [place] Work Phone: Start: 42-61-8815Lat-patient / Non-visitDO Peter Ahumada Work Phone: [facility] [place] Work Phone: Start: 12-17-2023 End: 21-89-9582Bjflbzgno department patient visitDO Peter Ahumada Work Phone: [facility]-Emer[facility] Work Phone: Start: 12-12-2023 End: 96-97-8531nkpfozeexjDHXZUGI H ITZKOWITZNot AvailableStart: 12-03-2023 End: 37-00-9637kohhiffejsPT Peter Acshira Work Phone: [facility] Work Phone: Start: 12-03-2023 End: 07-03-2953Dajvzys encounter procedureDO Peter Ahumada Work Phone: [facility] Work Phone: Start: 08-27-2023 End: 27-88-6658chabxpcqtgXppio Kuns Other [facility] Other Start: 52-05-9327Dtapicuio encounterPeter AhumadaFPG Family Medicine [place]Start: 08-22-2023 End: 20-36-8303geymmerjgiRX Peter Acshira Work Phone: [facility] Work Phone: Start: 08-22-2023 End: 97-37-8694Cefylfp encounter procedureDO Peter Acshira Work Phone: [facility] [place] Work Phone: Start: 08-20-2023 End: 56-24-9338meiaelhidrLxxne Kunshira Other [employer] [facility] Other Start: 69-87-3697Mdrwjyojo encounterBryluiza Golden [facility] [place]Start: 25-23-0412Cbtpaszog encounterBryluiza Golden [facility] [place]Start: 08-13-2023 End: 24-73-9218qworflervyHU Peter Ahumada Work Phone: [facility] Other Start: 08-13-2023 End: 96-90-0648Prlwsad encounter procedureDO Peter Ahumada Work Phone: [facility] Work Phone: Start: 08-06-2023 End: 81-65-3945syhxilnaflTtfrg Kuns Other [facility] Other Start: 18-19-1632Texnbpfaq encounterPeter Golden [facility] [place]Start: 06-11-2023 End: 74-57-4803fhbfiovyehCmvtn Kuns Other [facility] Other Start: 60-42-3407Pacgoyttk encounterBryluiza Golden [facility] CastaliaStart: 22-23-0338Gxtrxw outpatient visit 25 minutesBryluiza Golden [facility] [place]aliaStart: 06-08-2023 End: 89-37-2615mggrzgpatiWO Bryan Kuns Work Phone: [facility] Work Phone: Start: 06-08-2023 End: 77-71-9519Ateizkl encounter procedureDO Peter Ahumada Work Phone: [facility] Work Phone: Start: 06-08-2023 End: 03-43-0964Uzkrzed encounter procedureDO Peter Ahumada Work Phone: [facility] [place] Work Phone: Start: 05-25-2023 End: 66-57-6328Eqrlqkk encounter procedureDO Peter Ahumada Work Phone: [facility] Work Phone: Start: 05-24-2023 End: 35-12-6418mmuaagihexRcrcb Kuns Other [employer] Other Start: 52-31-6122Rwifac outpatient visit 25 minutes Peter Golden [facility] [place]Start: 05-24-2023 End: 19-37-3704Exibsqr encounter procedureDO Peter Ahumada Work Phone: [facility] [place] Work Phone: Start: 03-21-2023 End: 27-12-4105bufmawccmdLqrnn Kuns Other [employer] Other Start: 71-80-3131Bbmjsr outpatient visit 15 minutes Peter Golden [facility] [place]Start: 03-19-2023 End: 27-97-9362znkkfxolfcAG Peter Ahumada Work Phone: [facility] Work Phone: Start: 03-19-2023 End: 42-45-6895Vmnnaqk encounter procedureDO Peter Ahumada Work Phone: [facility] [place] Work Phone: Start: 01-15-2023 End: 30-12-9697qrcnfecsrpLP Peetr Ahumada Work Phone: [facility] Work Phone: start: 01-15-2023 End: 74-23-4362Lvqxaqf encounter procedureDO Peter Ahumada Work Phone: [facility]-Ultrasound Cntr for Breast CarStart: 01-12-2023 End: 79-55-6666sehetvvsvqOvmpd Kuns Other [employer] [facility] Other Start: 40-81-6456Sniqnaxyp encounterPeter Golden [facility] [place]Start: 11-23-2022 End: 95-45-7405Icbbtge encounter procedureDO Peter Ahumada Work Phone: [facility] [place] Work Phone: Start: 11-01-2022 End: 15-79-9598Cxtfgczpw department patient visitDO Peter Ahumada Work Phone: [facility]-Emergency Room Work Phone: Start: 10-31-2022 End: 29-16-6509ufvnlvyhjhEG Peter Ahumada Work Phone: [facility] Work Phone: Start: 10-31-2022 End: 73-77-4824Yjmqwlq encounter procedureDO Peter Ahumada Work Phone: [facility] [place] Work Phone: Start: 05-25-2022 End: 47-53-0696Hzhxlgvh ReferredDO Peter Ahumada Work Phone: [facility]: 05-25-2022 End: 36-72-2634blkdedfcxnMT Peter Ahumada Work Phone: [facility] Other Start: 53-58-0923Rgofsi outpatient visit 15 minutes Peter Golden [facility] [place]Start: 04-24-2022 End: 83-93-1403wooybbvsxeMyrcp Kuns Other [employer] Other Start: 27-04-8110Zoivtl outpatient visit 25 minutes Peter AcshiraVANESA [facility] [place]Start: 04-19-2022 End: 13-27-4359wpuoekgytjOT Peter Ahumada Work Phone: [facility] Work Phone: Start: 04-19-2022 End: 43-78-7357Lmkzajr encounter procedureDO Peter Ahumada Work Phone: [facility]-Lab [place]Start: 11-15-2021 End: 79-58-8252nfugfhzgorHqwwb Kuns Other [employer] Other Start: 20-24-5211Zhcanjbim encounterBryluiza Golden [facility] [place]Start: 11-02-2021 End: 36-23-9143aqyprtpwsqTsydv Kuns Other [employer] Other Start: 52-25-7599Ijcwzv outpatient visit 15 minutes Peter Golden [facility] [place]Start: 10-17-2021 End: 09-21-8711oxytyncrprTimfq Kuns Other [employer] Other Start: 79-26-3921Yvmina outpatient visit 25 minutes Peter ShenshiraVANESA [facility] [place]Start: 10-13-2021 End: 50-39-8137Guntcsb encounter Malcolm Daniel MD Work Phone: General SurgeryComment on above:Liver pain (Primary Dx)Start: 74-68-8115Nimcjj outpatient visit 25 minutesPeter Golden [facility] CastaliaStart: 02-22-2021 End: 99-82-2556ozybgyynniID PETER AHUMADAFacility:J1Axckb: 11-30-2020 End: 14-19-9763Lkdhubjvhh hospital visit by physicianXr Olivia 1 Work Phone: RadiologyComment on above:Closed nondisplaced fracture of proximal phalanx of left little finger, initial encounter [R16.949O]Start: 11-18-2020 End: 16-53-9720Nsjwjbzrte hospital visit by physicianXr Olivia 1 Work Phone: RadiologyComment on above:Closed nondisplaced fracture of proximal phalanx of left little finger, initial encounter [K04.829J] Procedures DateProcedureProcedure DetailPerforming ClinicianStart: 87-86-5837Qqfdggbgu mammography of bilateral breastsPeter Ahumada DO Work Phone: Start: 27-98-4144NT pre/post mri xrayPeter Ahumada DO Work Phone: Start: 44-60-1079IGH of left anklePeter Ahumada DO Work Phone: Start: 05-22-2024 End: 14-35-2841Ktpclf emg ea extremty w/paraspinl area completeChristopher Jonathan DO Work Phone: Start: 19-95-4247XA scan of gallbladderDO Peter Ahumada Work Phone: Start: 75-50-7153Lluny X-ray of right elbowDO Peter Ahmuada Work Phone: Start: 32-29-4521Nfymwf of umbilical herniaDO Peter Ahumada Work Phone: Start: 41-92-9860Glwyi X-ray of right elbowDO Peter Ahumada Work Phone: Start: 66-61-2065Mpobbmwrhchptjt of abdomenDO Peter Ahumada Work Phone: Start: 05-50-9989Pxogo X-ray of right elbowDO Peter Ahumada Work Phone: Start: 42-33-6223P-ray of right kneeDO Peter Ahumada Work Phone: Start: 77-74-5567Gskja X-ray of right clavicleDO Peter Ahumada Work Phone: Start: 36-39-8252Fyixn X-ray of right forearmDO Peter Ahumada Work Phone: Start: 53-88-4029Zmjzz X-ray of right shoulderDO Peter Ahumada Work Phone: Start: 34-87-3231N-ray of left kneeDO Peter Ahumada Work Phone: Start: 81-46-2282Ixdwhdtyw mammography of bilateral breastCathyO Peter Ahumada Work Phone: Start: 78-09-0293Urrzqdwgxueoepn of left breastDO Peter Ahumada Work Phone: Start: 84-98-5947Rqowq X-ray of left hipDO Peter Ahumada Work Phone: Start: 42-81-3955L-ray of lumbar spine, two or three viewsDO Peter Ahumada Work Phone: Start: 76-51-7240Cjhtkgfphvelcce of left breastDO Peter Ahumada Work Phone: Start: 04-73-8102Ntulhfglr mammography of bilateral breastsDO Peter Ahumada Work Phone: Start: 66-14-5797Fpuxhf echographyDO Peter Ahumada Work Phone: Start: 38-11-8856Hpzwlgbvofsb echographyDO Peter Ahumada Work Phone: Start: 18-92-2274Tzvtmgxu tomography of abdomen and pelvis with contrastDO Peter Ahumada Work Phone: Start: 10-00-8297Emuug hand minimum 3 viewsVidanielas Sabino Yusuf DO Work Phone: Start: 80-19-6695Cmmej hand minimum 3 viewsFridaallie Sabino Paramjit DO Work Phone: Plan of Treatment DateCare ActivityDetailAuthorStart: 98-97-3353Ivapz microalbumin profile DTaP,Tdap,Td Vaccine (2 - Td or Tdap)[facility] 05-22-2024 End: 38-30-5938Ddykklk encounter vilhovjcr94/31/2024 2:30 PM EDT Procedure Visit [facility] [address] [facility] [address] [place] [id number] Rahul Castillo, [address] [place] [address] ArrivedNOPICKENS COUNTY [facility] NEUROLOGYComment on above:ArrivedStart: 43-15-4030Srmfy-19 Vaccine ( season)Covid-19 Vaccine ( season)[facility]: 94-99-8543Ytjluoouu vaccinationInfluenza Vaccine (#1)[facility]: 15-13-0679VbpptwtfaMercy Health Lorain Hospitaltart: 63-51-5680Jrcba X-ray of right elbowXR elbow RT 2VMercy Health Lorain Hospitaltart: 07-20-5978WV Elbow - right 2 ViewsGuernsey Memorial Hospital Start: 12-87-9472LavngwiyfMercy Health Lorain Hospitaltart: 69-62-3098GaqululfhMercy Health Lorain Hospitaltart: 39-29-4191Pjpbr X-ray of right elbowXR elbow RT 2V [facility]: 33-40-3427OP Elbow - right 2 Views [facility]: 67-83-3990Kgcytrl referralClinton Memorial Hospital Work Phone: Start: 95-51-9539Tmkqzrmhx for malignant neoplasm of breastMammogram ScreeningMemorial Hospitaltart: 11-26-2214Gvqyfybbm vaccination INFLUENZA (#1)[facility]: 99-35-3555QFB TESTINGHPV TESTINGMemorial Hospitaltart: 12-01-6970FJC TESTINGPAP TESTINGMemorial Hospitaltart: 2003 Screening for malignant neoplasm of cervixCervical Cancer ScreeningMemorial Hospitaltart: 24-77-7727Twsooioil B Vaccine (1 of 3 - 19+ 3-dose series)Hepatitis B Vaccine (1 of 3 - 19+ 3-dose series)[facility]: 39-75-8703Tvocd microalbumin profileDTAP,TDAP,TD (1 - Tdap)[facility]: 2000 Anxiety ScreeningAnxiety ScreeningMemorial Hospitaltart: 96-05-7867Mtagmimdwp ScreeningDepression ScreeningMemorial Hospitaltart: 58-52-0362BHSNMALER C SCREENINGHEPATITIS C SCREENINGMemorial Hospitaltart: 15-28-9446Qwmxgfdwd C screeningHepatitis C ScreeningMemorial Hospitaltart: 73-62-1121FSI SCREENINGHIV SCREENINGMemorial Hospitaltart: 31-03-9824RTV screeningHIV ScreeningMemorial Hospitaltart: 06-23-0489Pupsc depression screening assessmentDEPRESSION SCREENING [facility]: 43-87-4173MFKHJ-19 VACCINE (1)COVID-19 VACCINE (1) [facility] HospitalComprehensive metabolic 1999 panel - Serum or PlasmaGuernsey Memorial HospitalComprehensive metabolic 1999 panel - Serum or Plasma [facility] HospitalComprehensive metabolic 1999 panel - Serum or Genesis HospitalGlucose measurement estimated from glycated hemoglobinGuernsey Memorial HospitalPatient EducationOhiohealth [facility] Ctr Work Phone: Patient referralOhiohealth [facility] Work Phone: RF Gastrointestinal tract upper Single view W air contrast POGuernsey Memorial HospitalUS GallbladderGuernsey Memorial HospitalXR Elbow - right GE 3 ViewsBig South Fork Medical Center Immunizations Immunization DateImmunizationNotesCare TcjujuvbGqbovnhq26-33-8738ysgljkp toxoid, reduced diphtheria toxoid, and acellular pertussis vaccine, adsorbedDO Peter Ahumada Work Phone: [facility]11-16-2022influenza, injectable, quadrivalent, preservative freePeter Ahumada Other [facility]09-18-2020influenza, seasonal, injectableBryan Acs Other [employer] Other 08208367-09-8730cactqnvmn, seasonal, injectablePatient ObjectionPeter Shens Other [employer] Other [id number] toxoid, reduced diphtheria toxoid, and acellular pertussis vaccine, adsorbedPeter Ahumada Other [facility] Memorial HospitalNEGATED: Highlighted row has not occurred!51-14-2629vmleqtrvq, seasonal, injectablePatient Objection Peter Ahumada Other [employer] Other NEGATED: Highlighted row has not occurred!04-09-2020 influenza, seasonal, injectableBryan Acs Other [employer] Other NEGATED: Highlighted row has not occurred!03-10-2019 influenza, seasonal, injectablePatient ObjectionPeter Shens Other [employer] Other Payers DatePayer CategoryPayerPolicy [id number]-ecy [id number] [facility] [id number] 2018-Present [phone] [address] [place] [address] [id number] 2019MedicaidCARESOURCE MEDICAID ZZZCARESOALLIANCEHEALTH [facility] MEDICAID [id number] 2018-2022 [address] [place] [address] [id number] [facility] Member Subscriber Plan / Payer (Effective 2018-Present) Name: Darling Khanna Relation to Subscriber: Self Name: Alex Khannalilly Jackson Payer ID: Not on file Group ID: [id number] Type: Not on file Address: [address] [place] [id number] [id number] 2..1.992457.3.57[id number] 2..1.602087.3.57[id number] 2..1.923717.3.57[id number] 2..1.868088.3.57[id number] 2..1.087906.3.579.[id number] 2..1.108475.3.579.2.296578-66-7172Wglfoce0783681 2..1.689488.3.579.2.915508-71-7805Etmdsgd6426599 2..1.063259.3.57[id number] 2.0.1.612756.3.57[id number] 2..1.170845.3.57[id number] 2..1.056003.3.57[id number] 2..1.046363.3.579.2.58182-44-7186Tikwcvr910003456 2..1.740836.3.579.2.4[id number] 2..1.314992.3.57[id number] 2..1.502426.3.579.[id number] 2..1.700368.3.579.2.[id number] 4z69j8bb-c7cy-2972-49zy-87m6j84upb43Ppgajvw21790440 2..1.1271[id number] 2..1.330031.3.579.2.531 Gwlcqel19045119 2..1.212465.3.579.2.804Qfluexx42218831 2..1.967448.3.579.2.650Vapuwkg82754083 2.0.1.918779.3.579.2.531 [id number] 2.840.1.118181.3.579.2.932Wqabwnf32946935 2.0.1.108137.3.579.2.531 Social History DateTypeDetailFacilityStart: 03-03-2021 End: 66-71-5651Xscumii smoking status NHISEx-smokerCincinnati Shriners Hospital Work Phone: End: 77-50-0340Apxqhax of tobacco useCurrent smokerCincinnati Shriners Hospital Work Phone: Start: 03-03-2021 End: 16-37-9307Xqzjpru use and exposureSmokeless tobacco non-userCincinnati Shriners Hospital Work Phone: Start: 02-16-6855Exhdfkc intakeCurrent drinker of alcohol (finding)[facility]: 97-88-5561Hwviopg SDOH Alcohol Comment occMemorial Hospitaltart: 45-50-0944Kmchctk CommentSmoked 1 pack a week, quit in 2005, can't remember start dateMemorial Hospitaltart: 17-07-2873Oxi [facility]igned [facility] CenterNot on [facility]: 06-30-2020 End: 85-65-4391Wkw Assigned At [facility] Other Start: 11-25-2015 End: 16-85-3412Erbviyh smoking status NHISNever smoked tobacco (finding) [facility]: 74-90-1962Umf Assigned At [facility]: 43-28-6914Tlbwgjsgx beverage intakeNot AskedMemorial Hospitaltart: 06-30-2020 End: 28-40-1807Jisieth of Social functionCincinnati Shriners HospitalNational Score (1-100), lower number is lower riskNot on [facility]tart: 10-19-2020 End: 63-79-5590Bmfefxlo to SARS-CoV-2 (event)Not sureCincinnati Shriners Hospital End: 42-23-4939Irirlgu of tobacco useCigarette SmokerNOMS HealthcareStart: 02-04-2024 End: 52-18-9843Grjclsnkk beverage intakeEx-drinker (finding)[facility] Start: 54-93-2344Pwzywvj CommentQuit smoking 10 years agoNOMS HealthcareStart: 25-37-3371Qlbeits Commentcaffeine 1-2 cups/dayNOMS HealthcareStart: 01-18-2023 Gender identityIdentifies as female gender (finding)[facility] HealthcareStart: 65-28-3162Jlowmw orientationHeterosexual (finding)[facility] HealthcareStart: 06-05-2024 End: 20-91-0676NhnQdrmlu (finding)[facility] Medical Equipment Procedure CodeEquipment CodeEquipment Original TextEquipment IdentifierDates Repair, hernia, umbilicalMESH FLAT SHEET 7.8O43XYURDJtkpf: 60-28-4570Ogwmov, hernia, umbilicalMESH FLAT SHEET 7.6V46BHJXPVuofe: 51-11-9596Ffbfrs, hernia, umbilicalMESH FLAT SHEET 7.6O55FKGRZEsrfc: 36-89-1683Atkrpg, hernia, umbilical MESH FLAT SHEET 7.2F32LSQFWGtpnn: 70-78-6575Adxoiy, hernia, umbilicalMESH FLAT SHEET 7.9Q66RHDIPFspfl: 87-42-3176Sqcghx, hernia, umbilicalMESH FLAT SHEET 7.5V42MNBFKYrazh: 37-02-9675Jkrmlp, hernia, umbilicalMESH FLAT SHEET 7.1F88RXGGC Start: 63-03-9156Bknpay, hernia, umbilicalMESH FLAT SHEET 7.6C89SPMKMFdyww: 28-32-0120Kqnlbe, hernia, umbilicalMESH FLAT SHEET 7.8G02UPGRFVkbzl: 04-24-2017 Repair, hernia, umbilicalMESH FLAT SHEET 7.9X19ABKLMUvqnt: 81-00-0177Brhhyp, hernia, umbilicalMESH FLAT SHEET 7.3Q05TQQARDmqez: 91-46-8229Bmmalz, hernia, umbilicalMESH FLAT SHEET 7.2R97CTCHIFlfit: 68-37-0095Pushcd, hernia, umbilical MESH FLAT SHEET 7.6B24WIHJDObsyh: 22-09-2051Zznzkz, hernia, umbilicalMESH FLAT SHEET 7.7J16TQZJTUhnfo: 92-31-3181Cbhlql, hernia, umbilicalMESH FLAT SHEET 7.2B10RIPCAOvqqy: 14-97-0482Iccsxi, hernia, umbilicalMESH FLAT SHEET 7.9T62PLYPS Start: 59-40-3953Iyjucx, hernia, umbilicalMESH FLAT SHEET 7.2R17RURWGWazgs: 19-77-2108Lgocom, hernia, umbilicalMESH FLAT SHEET 7.7U72WWFJKXklmr: 04-24-2017 Repair, hernia, umbilicalMESH FLAT SHEET 7.4Q57YSPQQMfsgi: 90-00-8636Kcljfc, hernia, umbilicalMESH FLAT SHEET 7.3X24IGLJBTkppb: 97-99-8766Naxulz, hernia, umbilicalMESH FLAT SHEET 7.5S08KZMEJBvazu: 76-15-1467Zdpbpm, hernia, umbilical M[employer] FLAT SHEET 7.1Q16ACKDYHivvt: 43-25-1401Mtjxru, hernia, umbilicalMESH FLAT SHEET 7.7N49PKPTZEjsco: 59-35-3250Jkpvlv, hernia, umbilicalMESH FLAT SHEET 7.7M69BOPGNJxghw: 88-60-0301Jcgxkm, hernia, umbilicalMESH FLAT SHEET 7.6H61FRGDV Start: 02-72-2641Cqeusr, hernia, umbilicalMESH FLAT SHEET 7.0E50MUXOHQrzkc: 03-82-7752Hwmack, hernia, umbilicalMESH FLAT SHEET 7.2Z28TDNPGAxsoz: 04-24-2017 Repair, hernia, umbilicalMESH FLAT SHEET 7.1Q37KNRVHWsvgn: 46-97-7719Lujcro, hernia, umbilicalMESH FLAT SHEET 7.9V74KDIUAFymrp: 34-68-8691Wshnyu, hernia, umbilicalMESH FLAT SHEET 7.3X55ZAHZQTwmks: 40-20-4944Xczqyk, hernia, umbilical MESH FLAT SHEET 7.6R51BWFSNNhxtq: 93-33-0871Tacrah, hernia, umbilicalMESH FLAT SHEET 7.3V66UGXOOTtkng: 93-87-3765Ukihcw, hernia, umbilicalMESH FLAT SHEET 7.7T58LHLTVPzczq: 04-24-2017 Goals DatePatient GoalDesired Activity/State Clinical Notes 11-04-2020 to 12-08-2024 Note Date & QlqsCptwJfecuiga59-33-7437 Evaluation note* Author Mercedes Ricketts [facility] HospitalAuthoredMay 2024 12:48pmSooner if needed, the ER if concerns,The above note written by Mercedes Ricketts LPN acting as human recorder, note dictated by Dr. Peter Ahumada [facility] Work Phone: 1(787) 826-514403-24-2025 History of Present illness Narrative* Alber Lara [...] I'll seeher PRN documented in this encounterSaint Francis Medical CenterQakrcjxpem10-72-0498 History of Present illness Narrative* Alber Lara [...] 90 mcg/act inhaler Every 4 hours HYDROcodone-acetaminophen ([place]) 5-325 MG tablet TAKE 1 TABLET BY [...] schedule it. documented in this [facility]02-18-2025 Evaluation note* Author Hyacinth Hutton [facility] 2024 3:43pmThe above note written by SIOMARA Abdi acting as human recorder, note dictated by Dr. Peter Ahumada. [facility] Work Phone: 1(466) 149-291310-31-2024 History of Present illness Narrative* CESAR Rich - 05/22/2024 2:30 PM EDT Images from the original note were not included. Reason for Appointment: EMG Patient: Darling Khanna : 1980 EMG Computer: [employer] Referring Physician: Dr. Robret Martinez EMG: YAMILEX professor of special education: Cayetano Moreno RT(R) Office Location: [place] Reason for EMG: c/o low back pain into left hip, pain in right knee, pain in bilateral heels. No hxof DM. Not on blood thinners. Comments: Procedure was explained to the patient who expressed understanding. Patient appeared to have tolerated the test well despite some discomfort due to the nature of the test. documented in this [facility]08-15-2024 Evaluation note* Author Hyacinth Hutton [facility] 2023 2:47pmThe above note written by Polly STRINGER acting as human recorder, note dictated by Dr.Bryan Ahumada. [facility] Work Phone: 1(989) 784-812401-22-2024 Evaluation note* Encounter Date Diagnosis Assessment Notes Treatment Notes Treatment Clinical Notes Jul, Abnormal mammogram of left breas t (ICD-10 - R92.8) [employer] Other 01-15-2024 Evaluation note* Encounter Date Diagnosis Assessment Notes Treatment Notes Treatment Clinical Notes Jul, Abnormal mammogram (ICD-10 - R92 .8) [employer] Other 11-17-2023 Evaluation note* Encounter Date Diagnosis [...] diet modification. May,cute bronchitis (ICD-10 - J20.9) [employer] Other 11-02-2023 Evaluation note* Encounter Date Diagnosis [...] exercise regimen; we will continue to monitor. [employer] Other 08-30-2023 Evaluation note* Encounter Date Diagnosis [...] been ordered to use for allergic reaction. [employer] Other 06-23-2023 Evaluation note* Encounter Date Diagnosis Assessment Notes Treatment Notes Treatment Clinical Notes Dec, Mass of upper outer quadrant of left breast (ICD-10 - N63.21) [employer] Other 11-03-2022 Evaluation note* Encounter Date Diagnosis [...] sent to the lab to determine pathology. [employer] Other 10-03-2022 Evaluation note* Encounter Date Diagnosis [...] by excisional biopsy. Apr,Hyperlipidemia (ICD-10 - E78.5) [employer] Other 04-13-2022 Evaluation note* Encounter Date Diagnosis [...] removed via shave and sent for pathology. [employer] Other 03-28-2022 Evaluation note* Encounter Date Diagnosis [...] eye. These will be removed with hyfrecator. [employer] Other 03-24-2022 NoteHNO ID: [id number] Author: Kate Daniel MD Service: ? Author Type: Physician Type: Progress Notes Filed: 10/17/2021 1:50 PM Note Text: Assessment ESTABLISHED PATIENT Darling Khanna is a 40 year old female with a right posterior liver subcapsular fluid collection ? 03/03/2021: Patient presented to [facility] on 02/08/2021 for 2 days for acute ride sided abdominal/flank pain, right shoulder discomfort and nausea. She was diagnosed with Klebsiella pneumoniae UTI and was discharged with oral keflex and zofran. Patient represented to ER on 02/09/2021 for the continued complaints of pain. ? Referral From:?PCP- Peter Ahumada, DO Reason:?right abdominal pain pain; liver?fluid collection? ? Received Records From:? 02/08/2021 ER Report [facility] 02/09/2021 ER Report [facility] 02/15/2021 PCP Office note ? [...] US of ovaries yesterday at [facility]. Scheduled for upper GI at end of month. Gained?50 pounds since July?(was in [place] for 3 months, drank a lot); diagnosed [...] well. She did spend 3 months in [place] and did not have any issues, hospitalizations [...] which included preparing to see the patient, [id number] patient care and completing clinical documentation. Kate Daniel [facility]03-24-2022 Nurse Note* Jayne Aguila Ma - 10/13/2021 1:32 PM EDT What is the reason for your visit today? Follow up Who is your referring physician? Are you having poor oral intake? NO Have you had unintentional weight loss of 15 lbs/7 Kg in the last 3-6 months? NO Bowels: regular Wound: Temperature: No Drains: No documented [facility] History of Present illness Narrative* Kate Daniel MD - 10/13/2021 1:30 PM EDT Assessment ESTABLISHED PATIENT Darling Khanna is a 40 year old female with a right posterior liver subcapsular fluid collection 03/03/2021: Patient presented to [facility] on 02/08/2021 for 2 days for [...] collection Received Records From: 02/08/2021 ER Report [facility] 02/09/2021 ER Report [facility] 02/15/2021 PCP Office note Visited [...] US of ovaries yesterday at [facility]. Scheduled for upper GI at end of month. Gained 50 pounds since July (was in [place] for 3 months, drank a lot); diagnosed [...] well. She did spend 3 months in [place] and did not have any issues, hospitalizations [...] which included preparing to see the patient, iply-ro-uvfe patient care and completing clinical documentation. Kate Daniel MD documented in this encounterC[facility]09-29-[facility]21 Evaluation note* Encounter Date Diagnosis Assessment [...] under 200lbs. We will continue to monitor. [employer] Other 09-16-2021 NoteHNO ID: [id number] Author: Kate Daniel MD Service: ? Author Type: Physician Type: Progress Notes Filed: 04/11/2021 3:19 PM Note Text: Assessment ESTABLISHED PATIENT Darling Khanna is a 40 year old female with a right posterior liver subcapsular fluid collection 03/03/2021: Patient presented to [facility] on 02/08/2021 for 2 days for acute ride sided abdominal/flank pain, right shoulder discomfort and nausea. She was diagnosed with Klebsiella pneumoniae UTI and was discharged with oral keflex and zofran. Patient represented to ER on 02/09/2021 for the continued complaints of pain. ? Referral From:?PCP- Peter Ahumada, DO Reason:?right abdominal pain pain; liver?fluid collection? ? Received Records From:? 02/08/2021 ER Report [facility] 02/09/2021 ER Report [facility] 02/15/2021 PCP Office note ? [...] US of ovaries yesterday at [facility]. Scheduled for upper GI at end of month. Gained 50 pounds since July (was in [place] for 3 months, drank a lot); diagnosed [...] which included preparing to see the patient, [id number] patient care and completing clinical documentation. Kate Daniel [facility]09-01-2021 NoteHNO ID: [id number] Author: William De León MD Service: ? [...] findings to suggest etiology Pre-conference plan (from [facility]): - Observation and serial imaging Imaging Review: - January 2021 - CT Abd/Pelvis and MRI Final Consensus Recommendation(s): - No clear etiology of right posterior subcapsular fluid collection - Fluid consistency is not consistent with a hematoma - No underlying masses or intrinsic liver pathology Final recommendation(s) differ from pre-conference plan? (Y/N) - No William De León MD [facility] Surgical Fellow cReg[facility]08-12-2021 NoteHNO ID: [id number] Author: Kate Daniel MD Service: ? Author [...] 40 year old female Patient presented to [facility] on 02/08/2021 for 2 days for [...] ? Received Records From: 02/08/2021 ER Report [facility] 02/09/2021 ER Report [facility] 02/15/2021 PCP Office note Visited [...] US of ovaries yesterday at [facility]. Scheduled for upper GI at end of month. Gained 50 pounds since July (was in [place] for 3 months, drank a lot); diagnosed [...] was malignant. Seen by Dr. Lara on [facility], in [facility]; denies chemotherapy or radiation. Hernia repair Social [...] Abdomen: Abdomen so (more content not included)...[facility] 12-28-2020 NoteHNO ID: [id number] Author: Tracey Hair Ma Service: ? Author Type: ? Type: Progress Notes Filed: 12/28/2020 4:25 PM Note Text: Dispensed XL/XXL Reaction brace for the Right knee. Dispensed by [employer]. Instructions were given on application/adjustments. She will f/u as scheduled/prn. Tracey Hair MA,[facility] 12-28-2020 NoteHNO ID: [id number] Author: Ishan Yusuf, DO Service: ? Author [...] PT if not improving Procedures Ishan Yusuf, [facility]05-11-2021 NoteHNO ID: [id number] Author: Ishan Yusuf, DO Service: ? Author [...] results and radiologist's interpretation, available in the [facility] health record. Images were [...] Follow-up in 3-4 weeks Procedures Ishan Yusuf, [facility]05-11-2021 NoteHNO ID: [id number] Author: RT Suzanna(R) Service: ? Author Type: Hand Finisher Type: Progress Notes Filed: 11/30/2020 3:44 PM [...] BY: RT Suzanna(Esteban) November 30, 2020 3:43 [facility]04-29-2021 NoteHNO ID: [id number] Author: RT Victor M(R) Service: ? Author Type: Hand Finisher Type: Progress Notes Filed: 11/18/2020 3:47 PM [...] RT Victor M(R) November 18, 2020 3:45 [facility]04-29-2021 NoteHNO ID: [id number] Author: Ishan Yusuf, DO Service: ? Author [...] results and radiologist's interpretation, available in the [facility] health record. Images were reviewed with the patient/family members in the office today. My personal interpretation of the performed imaging is intra-articular proximal phalanx fracture CLINICAL IMPRESSION / ASSESSMENT: (M37.453Q) Closed nondisplaced fracture of proximal phalanx of left little finger, initial encounter (primary encounter diagnosis) PLAN: Placed her in aluminum splint Will discuss case with Dr. Montana due to some progression of depression Follow-up accordingly Procedures Ishan Yusuf, [facility]04-15-2021 NoteHNO ID: [id number] Author: Bob Millan Service: ? Author Type: Physician Type: Progress Notes Filed: 11/04/2020 2:12 PM Note Text: [facility] Visit Documentation Note [facility] [place] REASON FOR VISIT / CHIEF COMPLAINT SERVICE [...] results and radiologist's interpretation, available in the [facility] health record. Images were reviewed with the patient/family members in the office today. My personal interpretation of the performed imaging is Has [place] prox phalanx fracture at PIP ASSESSMENT / PLAN CLINICAL IMPRESSION / ASSESSMENT: ([id number]) Closed nondisplaced fracture of proximal phalanx of [...] plan as detailed above. Bob Millan D.O. [facility] [place] Team Physician, [facility] Consulting Physician, Helmetta Sawyer Landeros, Oil Field Operator [phone] Patient verbalizes understanding and agrees with the treatment plan as detailed above.[facility] Diagnosis Liver pain- Primary Abdominal pain, other specified site documented in this encounter [facility] noteNo InformationNortCrowd [employer] Other Evaluation noteNo assessment information available [facility] Work Phone: Evaluation note* Diagnosis Onset Date Resolution Status Ground-level fall acuteLaceration of knee, leftacuteRight elbow painacute [facility] Work Phone: Evaluation note* Diagnosis Onset Date Resolution Status Ground-level fall acuteLaceration of knee, leftacuteRight elbow painacuteElbow fracture, right acuteHypothyroidismacuteLaceration of knee, leftacute [facility] Work Phone: Evaluation note* Diagnosis Onset Date Resolution Status Ground-level fall acuteLaceration of knee, leftacuteRight elbow painacuteElbow fracture, right acuteHypothyroidismacuteLaceration of knee, leftacuteFracture of radial neck, right, closedacute [facility] Work Phone: Evaluation note* Diagnosis Onset Date Resolution Status Ground-level fall acuteLaceration of knee, leftacuteRight elbow painacuteElbow fracture, right acuteHypothyroidismacuteLaceration of knee, leftacuteFracture of radial neck, right, closedacuteFracture of radial neck, right, closedacute [facility] Work Phone: Evaluation note* Diagnosis Onset Date Resolution Status Ground-level fall acuteLaceration of knee, leftacuteRight elbow painacuteElbow fracture, right acuteHypothyroidismacuteLaceration of knee, leftacuteFracture of radial neck, right, closedacuteFracture of radial neck, right, closedacuteFracture of radial neck, right, closedacute [facility] Work Phone: Evaluation note* Author Hyacinth Hutton [facility] HospitalAuthoredAugust 2023 2:47pmThe above note written by Polly STRINGER acting as human recorder, note dictated by Dr.Bryan Ahumada. [facility] Work Phone: Evaluation note* Diagnosis Closed nondisplaced fracture of proximal phalanx of left little finger, initial encounter [facility]* Diagnosis Lumbosacral radiculopathy- Primary Thoracic or lumbosacral neuritis or radiculitis, unspecified documented in this encounter [facility] HealthcareEvaluation note* Diagnosis Onset Date Resolution Status Admit Date Bilateral foot pain acuteNovember 2023 2:36pmFatty liveracuteNovember 2023 2:36pmGERD (gastroesophageal reflux disease)acuteNovember 2023 2:36pmHypothyroidism acuteNovember 2023 2:36pmPre-diabetesacuteNovember 2023 2:36pm [facility] Work Phone: Evaluation note* Author Hyacinth Hutton [facility] HospitalAuthoredFebruary 2024 2:43pmThe above note written by SIOMARA Abdi acting as human recorder, note dictated by Dr. Peter Ahumada. [facility] Work Phone: Evaluation note* Diagnosis Sebaceous cyst- Primary documented in this encounter [facility] HealthcareEvaluation note* Diagnosis Sebaceous cyst- Primary documented in this encounter [facility] HealthcareEvaluation note* Diagnosis Onset Date Resolution Status Admit Date Bilateral foot pain acuteOctober 2024 7:54amHypothyroidismacuteOctober 2024 7:54am [facility] Work Phone: History general Narrative - Reported* Type Description Date Medical History asthma Medical HistoryHPVMedical Historyf/u with Health Dept for [employer] ARTILL[employer] CREWMEMBER needsMedical HistoryInclusion cystSurgical Historyjaw surgery for underbiteSurgical History breast [id number] Historysee surgical hx [employer] Other Hospital Discharge instructions Additional Instructions [place] diet as tolerated Increase oral fluids Take the diclofenac twice a day as needed for pain and inflammation Take oxycodone every 6 hours for severe pain Follow-up with your family doctor for recheck I also gave you the number for gastroenterology Return to the ER for more severe pain high fever vomiting or any other concerns [facility] Work Phone: Hospital Discharge instructions Additional Instructions Sutures out in 10 days[facility] Work Phone: Hospital Discharge instructions Additional Instructions [...] directed for pain unless a prescription was provided.[facility] Work Phone: Hospital Discharge instructionsAmbulatory Orders* Referral to Podiatry Location: None Selected [facility] Work Phone: [place] for referral (narrative)No reason for referral information availableKettering [facility] Hospital Medical [facility] Work Phone: [place] for visit Narrative* Other Medical (Routine) - ClosedSpecialtyDiagnoses / ProceduresReferred By ContactReferred To Contact Neurology Diagnoses Sciatica, left side Procedures TN NEEDLE EMG EA EXTREMTY W/PARASPINL AREA COMPLETE TN NERVE CONDUCTION STUDIES 9-10 STUDIES Robert Martinez MD [address] [place] [address] Phone: tel: fax: Shakeel Rios MD [address] [place] [address] Phone: tel: fax: Referral IDStatusReasonStart DateExpiration DateVisits RequestedVisits [id number] Perform Procedure / [facility] Healthcare Summary Purpose Family History [...] and content) DATE CREATED AUTHOR 02/25/2021 [facility] DATE CREATED AUTHOR AUTHOR'S ORGANIZ ATION 10/18/2021 [facility] DATE CREATED AUTHOR AUTHOR'S ORGANIZ ATION 10/14/2024 [facility] DATE CREATED AUTHOR AUTHOR'S ORGANIZ ATION 05/02/2025 [facility] DATE CREATED AUTHOR AUTHOR'S ORGANIZ ATION 05/17/2025 [facility] Source Comments (unrecognize d section and content) In the event this informatio n is protected by the Federal Confidentiality of Alcohol and Drug Abuse Patient Records regulations: The Federal rules restrict any use of the information to criminally investigate or prosecute any alcohol or drug abuse patient.[facility] HospitalIn the event this information is protected by the Federal Confidentiality of Alcohol and Drug Abuse Patient Records regulations: The Federal rules restrict any use of the information to criminally investigate or prosecute any alcohol or drug abuse patient.[facility] HospitalIn the event this information is protected by the Federal Confidentiality of Alcohol and Drug Abuse Patient Records regulations: The Federal rules restrict any use of the information to criminally investigate or prosecute any alcohol or drug abuse patient.[facility] Reason for Visit (unrecogniz ed section and content) ReasonCommentsEstablished PatientReasonCommentsRight subclavicular shoulder mass Lump under collar bone. It is soft, and does not hurt.[id number] pow Exc. Rt. chest cyst Care Teams (unrecognized sec tion and content) Team Status: Active Member Role Status Dates Peter Ahumada DO Primary Care Provider Active Team Status: Inactive Member Role Status Dates Peter Ahumada DO Primary Care Provider, Attending Provi dani Active Team MemberRelationshipSpecialtyStart DateEnd Date Peter Ahumada DO [address] [place] [phone] PCP - GeneralFamily Practice11/22/15 Team Status: Inactive Member Role Status Katarina Ahumada DO Primary Care Provider Active BAYLEE Jimenez-BCEmergency ProviderActive Team Status: Inactive Member Role Status Katarina Ahumada DO Primary Care Provider Active Koki Elkins ([facility]) , APRNAttending ProviderActive Team Status: Inactive Member [...] DateEnd Date Peter Ahumada DO [address] [place] [address] PCP [facility]11/22/15 Team Status: Inactive Member Role Status Dates Peter Ahumada DO Primary Care Provider Active Sta rt: May 19, 2024 End: May 19PING FrankM MSAttending ProviderActiveStart: May 19, 2024 End: May 19, 2024Team MemberRelationshipSpecialtyStart DateEnd Date Peter Ahumada MD [address] [place] [phone] PCP [facility]01/25/23Team MemberRelationshipSpecialtyStart DateEnd Date Peter Ahumada MD [address] [place] [phone] PCP [facility]01/25/23 Team Status: Inactive Member Role Status Dates [...] DateEnd Date Peter Ahumada MD [address] [place] [phone] PCP - General01/25/23 Team Status: Inactive Member Role Status Katarina Lara DO Attending Provider Active Start: September 29, 2024 End: September 29, 2024Team MemberRelationshipSpecialtyStart DateEnd Date Peter Ahumada MD [address] [place] [phone] PCP - General01/25/23 Team Status: Inactive Member [...] BE BASED ON THE PRIMARY CLINICAL RECORDS. [facility] [employer] [facility]. provides no warranty or guarantee of the accuracy or completeness of information in this document.
[2025-07-20 09:07] VITALS: BP 138/67; BP 138/68; PULSE 71; PULSE 76; O2SAT 94; O2SAT 96
[2025-07-20] MEDS: BUPIVACAINE HCL 0.25% PF 25 MG/10 ML VIAL 2 ML INJ (09:10)
[2025-07-20] MEDS: LIDOCAINE HCL 2% 400 MG/20 ML MDV INJ (09:10)
[2025-07-20] MEDS: METHYLPREDNISOLONE ACETATE 40 MG/ML VIAL INJ (09:10)
[2025-07-20] MEDS: IOHEXOL 240 MG/ML - 10 ML VIAL 24 MG INJ (09:10)
--- NOTE | 2025-07-20 09:11 | W.PM.PROCNOT ---
Date of procedure: 07/20/25 Pre-op diagnosis: Pain due to left greater trochanteric bursitis Post-op diagnosis: same as pre-op Procedure: Procedure: Left greater trochanteric bursa injection Medications: Bupivacaine 0.25% 4cc, depomedrol 40mg I explained the details of the procedure to the patient including the risks, benefits and alternatives. We had an informed discussion and the patient verbalized understanding and signed the consent form. All questions were answered appropriately.? A time out was performed.? After obtaining a comfortable right lateral decubitus position, the skin overlying the hip, subtrochanteric region, and joint space were prepped with alcohol. A sterile syringe containing the above medication was attached to a 25 guage, 3.5 inch spinal needle under strict aseptic technique. X ray was used to identify the right greater trochanter.? The needle was than advanced through the subcutaneous tissue after local injection of 1% lidocaine.? The contents of the syringe were gently injected without any resistance into the bursa after contrast (isovue) outlined the appropriate area. The needle was removed and pressure was applied to the injection site to decrease the incidence of ecchymosis and hematoma formation.? A sterile bandage was applied. Post procedural instructions were given to the patient. Anesthesia: Local Surgeon: Christos Manrique Pathology: none sent Condition: stable Disposition: no change
== END 2025-07-20 09:17 | disposition home or self-care (01) ==
PROVIDERS: PCP Family Medicine; Visit Provider Anesthesiology
DX: M70.62 Trochanteric bursitis, left hip (principal); G89.29 Other chronic pain
CPT/HCPCS: 20610; 77002; J0665; J1010; Q9966